=== PATIENT | male | born 1950 | race African-American/Black ===

== ENCOUNTER 2018-04-10 16:04 | Emergency (ER) | payer OTHER, SELFPAY ==
--- OUTSIDE RECORDS SUMMARY | 2018-04-10 16:06 | XMS REPORT | Clinical Summary ---
:1950 Author Organization [facility] Address [address] [place] [address] Phone Support Name Relationship Address Phone Unavailable Unavailable [address] [place] [address] Care Team Providers Name Role Phone Unavailable Primary Care Provider Unavailable Allergies No Known Allergies Current Medications Prescription Sig. Disp. Refills Start Date End Date Status cloNIDine HCl Take 0.3 mg by Active (CATAPRES) 0.3 MG mouth 3 (three) tablet times daily. furosemide (LASIX) Take 40 mg by Active 40 MG mouth every other tabletIndications: day. PRN amLODIPine Take 10 mg by Active (NORVASC) 10 MG mouth daily. tablet carvedilol (COREG) Take 1 tablet 60 tablet 3 10/13/2017 Active 12.5 MG tablet (12.5 mg total) 9 by mouth 2 (two) times daily. acetaminophen-code Take 1 tablet by 30 tablet 0 10/11/2017 Discontinued ine (TYLENOL #3) mouth every 4 8 300-30 mg per (four) hours as tablet needed for up to 10 days. Max Daily Amount: 6 tablets bisacodyl Take 1 tablet (5 30 tablet 0 10/11/2017 Discontinued (DULCOLAX) 5 mg EC mg total) by 8 tablet mouth daily as needed for Constipation for up to 30 days. carvedilol (COREG) Take 1 tablet 60 tablet 3 10/12/2017 Discontinued 12.5 MG tablet (12.5 mg total) 8 by mouth 2 (two) times daily. acetaminophen-code Take 1 tablet by 30 tablet 0 10/13/2017 ine (TYLENOL #3) mouth every 4 8 300-30 mg per (four) hours as tablet needed for up to 10 days. Max Daily Amount: 6 tablets bisacodyl Take 1 tablet (5 30 tablet 0 10/13/2017 (DULCOLAX) 5 mg EC mg total) by 8 tablet mouth daily as needed for Constipation for up to 30 days. 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);S/p nephrectomy 10/09/2017 Procedure Pass 10/09/2017 Surgery Demetrius Mims LAPAROSCOPY,NEPHREC MD SANGEETA Kohler 10/08/2017 Anesthesia Event Jhoana Quinonez MD 10/02/2017 Procedure Pass 10/01/2017 Hospital Encounter Pre-Admission Demetrius Mims Pre-op testing Testing MD Jose F 10/01/2017 Hospital Encounter Pre-Admission Abel Brown Testing MD 09/12/2017 Orders Only Pre-Admission Karine Simental Pre-op testing Testing (Primary Dx) after 04/09/2017 Social History Tobacco Use Types Packs/Day Years Used Date Current Every Day Smoker 0.5 Smokeless Tobacco: Never Used Tobacco Cessation: Ready to Quit: Yes; Counseling Given: Yes Alcohol Use Drinks/Week oz/Week Comments Yes Sex Assigned at Date Recorded Not on file Last Filed Vital Signs Vital Sign Reading Time Taken Blood Pressure 131/78 10/13/2017 2:31 PM CDT Pulse 75 10/13/2017 2:31 PM CDT Temperature 35.9 C (96.7 F) 10/13/2017 2:31 PM CDT Respiratory Rate 19 10/13/2017 2:31 PM CDT Oxygen Saturation 99% 10/13/2017 2:31 PM CDT Inhaled Oxygen Concentration - - Weight 68 kg (150 lb) 10/09/2017 10:00 PM CDT Height 162.6 cm (5' 4") 10/09/2017 10:00 PM CDT Body Mass Index 25.75 10/09/2017 10:00 PM CDT Plan of Treatment Not on file Procedures Procedure Name Priority Date/Time Associated Diagnosis Comments DISSECTION,LYMPH NODE 10/09/2017 1:00 PM CDT Renal mass, left PELVIC Special Needs (10 MM DEFLECTABLE, 3D OLYMPUS LAPAROSCOPE, 5 MM LIGASURE ADVANCE) LAPAROSCOPY,NEPHRECTOMY 10/09/2017 1:00 PM CDT Renal mass, left Special Needs (10 MM DEFLECTABLE, 3D OLYMPUS LAPAROSCOPE, 5 MM LIGASURE ADVANCE) after 04/09/2017 Results RHYTHM STRIP - SCAN (10/16/2017 9:41 AM)CBC with platelet count + automated diff (10/13/2017 12:26 PM)Only the most recent of5 resultswithin the time period is included. Component Value Ref Range WBC 5.0 3.5 - 10.5 K/L RBC 4.98 4.63 - 6.08 M/L Hemoglobin 14.6 13.7 - 17.5 GM/DL Hematocrit 43.0 40.1 - 51.0 % MCV 86.3 79.0 - 92.2 fL MCH 29.3 25.7 - 32.2 pg MCHC 34.0 32.3 - 36.5 GM/DL RDW 13.0 11.6 - 14.4 % Platelets 252 150 - 450 K/CU MM MPV 9.7 9.4 - 12.4 fL nRBC 0 0 - 0 /100 WBC % Neutros 71 % % Lymphs 18 % % Monos 9 % % Eos 1 % % Baso 1 % # Neutros 3.52 1.78 - 5.38 K/L # Lymphs 0.87 (L) 1.32 - 3.57 K/L # Monos 0.46 0.30 - 0.82 K/L # Eos 0.05 0.04 - 0.54 K/L # Baso 0.05 0.01 - 0.08 K/L Immature Granulocytes-Relative 0 0 - 1 % Specimen Performing Laboratory Blood - Arm, Right [facility] [address] [place] [address], [place] [address] CBC with platelet count + automated diff (10/13/2017 12:26 PM)Only the most recent of5 resultswithin the time period is included. Specimen Performing Laboratory Blood Narrative The following orders were created for panel order CBC with platelet count + automated diff. Procedure Abnormality Status --------- ------ CBC with platelet count ...[[id number]]AbnormalFinal result Please view results for these tests on the individual orders. Basic Metabolic Panel (10/13/2017 12:26 PM)Only the most recent of7 resultswithin the time period is included. Component Value Ref Range Sodium 135 (L) 136 - 145 meq/L Potassium 3.6 3.5 - 5.1 meq/L Chloride 98 98 - 107 meq/L CO2 22 22 - 29 meq/L BUN 45 (H) 7 - 21 mg/dL Creatinine 3.68 (H) 0.57 - 1.25 mg/dL Glucose 157 (H) 70 - 105 mg/dL Calcium 9.5 8.4 - 10.2 mg/dL EGFR 20Comment: ESTIMATED GFR IS NOT ACCURATE mL/min/1.73 sq m CREATININE CLEARANCE IN PREDICTING GLOMERULAR FILTRATION RATE. ESTIMATED GFR IS NOT APPLICABLE FOR DIALYSIS PATIENTS. Specimen Performing Laboratory Blood - Arm, Right [address] [address] Phosphorus (10/12/2017 4:47 AM)Only the most recent of4 resultswithin the time period is included. Component Value Ref Range Phosphorus 2.7 2.3 - 4.7 mg/dL Specimen Performing Laboratory Blood - Arm, Left [address] [address] Magnesium (10/12/2017 4:47 AM)Only the most recent of4 resultswithin the time period is included. Component Value Ref Range Magnesium 2.1 1.6 - 2.6 mg/dL Specimen Performing Laboratory Blood - Arm, Left [address] [address] Iron, TIBC, % sat. (without ferritin) (10/11/2017 4:35 AM) Component Value Ref Range Iron 49 40 - 160 ug/dL TIBC 236 (L) 250 - 450 ug/dL Iron % Saturation 21 20 - 55 % Specimen Performing Laboratory Blood [address] [address] PTH, intact (10/11/2017 4:35 AM) Component Value Ref Range PTH 212.3 (H) 8.5 - 72.5 pg/mL Specimen Performing Laboratory Blood [address] [address] Hemoglobin and hematocrit (10/09/2017 6:55 PM) Component Value Ref Range Hemoglobin 13.7 13.7 - 17.5 GM/DL Hematocrit 40.5 40.1 - 51.0 % Specimen Performing Laboratory Blood - Line, Arterial [facility] [address] [place] [address] Tissue Exam (10/09/2017 4:52 PM) Component Value Ref Range Case Report Surgical Pathology Report Case: [id number] Authorizing Provider:Demetrius Mims MD Collected: 10/09/2017 1657 Ordering Location: [facility] Received: 10/10/2017 0810 SERVICES Pathologist: Joyce Sauceda MD Specimens: A) - Lymph Node, RETROPERITONEAL LYMPH NODE B) - Kidney, Left, LEFT KIDNEY AND HILAR LYMPH NODE DIAGNOSIS A. RETROPERITONEAL LYMPH NODES, DISSECTION - SEVEN LYMPH NODES WITHOUT TUMOR (0/7) B. 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 - NO INVOLVEMENT OF RENAL PELVIS OR RENAL SINUS (TUMOR IS CLOSE TO PELVIS AND ATTENUATES THE CAPSULE IN THE REGION OF THE RENAL SINUS, BUT DOES NOT EXTEND INTO SINUS SOFT/ADIPOSE TISSUE, OR THROUGH THE LATERAL CAPSULE - SATELLITE NODULE/PAPILLARY RENAL CELL CARCINOMA, TYPE 1,5MM, AT LEAST 1CM REMOVED FROM LARGER TUMOR, CONFINED TO KIDNEY - VASCULAR, URETERAL AND SURGICAL MARGINS ARE NEGATIVE FOR CARCINOMA - LYMPHOVASCULAR OR PERINEURAL INVASION IS NOT IDENTIFIED - ONE HILAR REGION LYMPH NODE WITHOUT TUMOR (0/1) - SIMPLE CORTICAL CYST IN UPPER POLE - FEATURES CONSISTENT WITH END-STAGE RENAL DISEASE - SEE SYNOPTIC REPORT Signing Pathologist Direct Phone Line: [phone] COMMENT The relative revisions of traditional Lockwood nuclear grading in predicting 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 The assessment of nucleolar prominence as a single parameter is noted to correlate better with outcome than other nuclear parameters (size, shape) to assign a Lockwood grade. ("Urologic Surgical Pathology," Leidy and Cristian, third edition, 2014). Nuclear grade assig mitch in Synoptic portion of this report (tw, can include). This patient's previous biopsy from [facility], from 2016 ([id number]) shows a core biopsy with features similar to those noted in this larger tumor. 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 Both types of tumor were considered in th e differential diagnosis of this initial sample (tw/wy). SYNOPTIC REPORT KIDNEY: Nephrectomy(Kidney Res - All Specimens) SPECIMEN Procedure:Radical nephrectomy Specimen Laterality:Left TUMOR Tumor Site:Lower pole Histologic Type:Papillary renal cell carcinoma :Type 1 Histologic Grade (WHO / ISUP Grade):G2: Nucleoli conspicuous and eosinophilic at 400x magnification, visible but not prominent at 100x magnification Tumor Size:Greatest dimension in Centimeters (cm): 5.5 Centimeters (cm) Additional Dimension in Centimeters (cm):5 Centimeters (cm) Additional Dimension in Centimeters (cm):4.5 Centimeters (cm ) Tumor Focality:Multifocal Tumor Extension:Tumor limited to kidney Sarcomatoid Features:Not identified Rhabdoid Features:Not identified Tumor Necrosis:Not identified Lymphovascular Invasion:Not identified MARGINS Margins:Uninvolved by invasive carcinoma LYMPH NODES Regional Lymph Nodes: Number of Lymph Nodes Involved:0 Number of Lymph Nodes Examined:8 PATHOLOGIC STAGE CLASSIFICATION (pTNM, AJCC 8th Edition) Primary Tumor (pT):pT1b Regional Lymph Nodes (pN):pN0 ADDITIONAL FINDINGS Pathologic Findings in Nonneoplastic Kidney:Glomerular disease: arteriolonephrosclerosis, KW type lesions Pathologic Findings in Nonneoplastic Kidney:Tubulointerstitial disease: chronic inflammation, thyroidization Additional Pathological Findings:Cyst(s): Simple cortical cyst CPT Code(s) 53353 X 2, 07019, 45929 x6 CLINICAL HISTORY Left renal mass SPECIMEN SOURCE A. Retroperitoneal lymph node. B. Left kidney and hilar lymph node GROSS DESCRIPTION The specimen is received in two containers of formalin both labeled with the patient's information. Part A: Labeled "retroperitoneal lymph node" consists of multiple ragged fragments of fibrofatty tissue measuring 3 x 2.5 x 1.5 cm yielding 7 possible lymph nodes ranging from 0.5 to 1.5 cm, submitted e ntirely as follows: A1, one lymph node trisected; A2, one lymph node bisected ; A3, one lymph node bisected; A4, one lymph node bisected; A5, three possible lymph nodes. Part B: Labeled "left kidney and hilar lymph node" consists of a 342 gm left radical nephrectomy, 15 x 7 x 4.5 cm with kidney without perirenal fat,9 x 5 x 4 cm with a ureter, 6 cm in length x 0.4 c m in diameter. An adrenal gland is not present. Cross sections of the kidney shows a large, pale, pendleton-white mass, 5.5 x 5 x 4.5 cm,replacng the entire lower pole of the kidney and extending in a "pu shing" fashion into the renal sinus region. The ureter and pelvis have pendleton- pink mucosa and are not grossly involved with tumor. In the superior pole is a biloculated cyst measuring 1 cm filled with pendleton- red clear fluid.The mass bulges/attenuates the kidney capsule but does not extend through it.. The hilar fat yields three possible pendleton-pink lymph nodes measuring up to 0.5 cm. Cross sections of the mass show a satellite pendleton nodule, 0.5 cm grossly approximately 1 cm or more from the primary tumor and also grossly confined within the kidney capsule. No other areas of suspicion are seen. Section code: B1, ureteral and vascular margins en face; B2, three possible lymph nodes; B3, B4, tumor with lateral aspect and capsule B5, B6, tumor, sinus fat and kidney parenchyma; B7, primary tumor a nd satellite nodule; B8, B9, additional sections of mass and kidney parenchyma; B10, grossly normal kidney parenchyma and cystic spaces. CG/ew MICROSCOPIC DESCRIPTION Sections show a papillary renal cell carcinoma, type I, with rather abundant papillae, and with cells with relatively small nuclei and only focally prominent nucleoli. Some solid regions are noted, not prominent. There are prominent macrophages, and only a small amount of myxoid stroma. No lymphovascular invasion is identified. A satellite nodule present in slide B7 show similar features, with a more prominent solid component. The tumor is not necrotic, does not exhibit psammoma bodies, and does not display hemorrhage. Although, on gross examination, some possible renal sinus regions contain tumor, microscopic sections show that an attenuated capsule is present in the sinus; no invasion of the renal sinus soft tissue or fat is noted on microscopic examination High-grade tumor (sarcomatoiid, etc.) or other types of tumor are not noted. SPECIAL STUDIES The following special studies were performed on this case and the interpretation is incorporated in the diagnostic report above: AMACR, strongly positive; RCC marker, positive; AE1/AE3-positive; RICHARD and CK 7-focally positive; [id number] CD10 equivocal, possibly focally positive The immunohistochemistry test was developed and its performance characteristics determined by [facility], Pathology Laboratory. It has not been cleared or approved by the U.S. Food and Drug Administration. The FDA has determined that such clearance or approval is not necessary. The test is used for clinical purposes. It should not be regarded as investigational or for research. This laboratory is certified under the Clinical Laboratory Improvement Amendments of 1988 (CLIA-88) as qualified to perform high complexity clinical laboratory testing. Specimen Performing Laboratory Tissue - Lymph Node; Tissue - Kidney, Left [address] [address] TRANSFUSION SERVICE REPORT - SCAN (10/02/2017 5:44 PM)Type and screen, automated (10/01/2017 4:14 PM) Component Value Ref Range ABO/RH AUTOMATED (BEAKER) O POSITIVE Ab Scrn NEGATIVE Specimen Performing Laboratory Blood [address] [address] Urinalysis w/ Microscopic (10/01/2017 4:14 PM) Component Value Ref Range Color, UA Yellow Clarity, UA Clear Specific [place], UA 1.013 1.001 - 1.035 pH, UA 6.0 5.0 - 8.0 Protein, UA 100 mg/dL (A) Negative Glucose, UA Negative Negative Ketones, UA Negative Negative Bilirubin, UA Negative Negative Blood, UA Trace (A) Negative Nitrite, UA Negative Negative Leukocytes, UA Negative Negative Urobilinogen, UA 0.2 0.2 - 1.0 mg/dL RBC, UA 7 /HPF WBC, UA 2 /HPF Mucus Rare Specimen Source Specimen Performing Laboratory Urine [address] [address] aPTT (10/01/2017 4:14 PM) Component Value Ref Range PTT 28.1 22.5 - 36.0 seconds Specimen Performing Laboratory Blood [address] [address] Prothrombin time/INR (10/01/2017 4:14 PM) Component Value Ref Range Protime 13.6 11.7 - 14.7 seconds INR 1.0 <=5.9 Specimen Performing Laboratory Blood [address] [address] Narrative RECOMMENDED COUMADIN/WARFARIN INR THERAPY RANGES STANDARD DOSE: 2.0 - 3.0 Includes: PROPHYLAXIS for venous thrombosis, systemic embolization; TREATMENT for venous thrombosis and/or pulmonary embolus. HIGH RISK: Target INR is 2.5-3.5 for patients with mechanical heart valves. Urine culture (10/01/2017 4:13 PM) Component Value Ref Range Result No growth Specimen Performing Laboratory Urine - Urine, Unspecified Source [address] [address] after 04/09/2017
--- OUTSIDE RECORDS SUMMARY | 2018-04-10 16:06 | XMS REPORT ---
:1950 [facility] [address] [place] [address] Care Team Providers Name Role Phone CITLALY MIMS Unavailable Unavailable ANILELMAMALCOM Unavailable Unavailable Problems This patient has no known problems. Allergies, Adverse Reactions, Alerts This patient has no known allergies or adverse reactions. Medications This patient has no known medications. Results Test Description Test Time Test Comments Text Results Atomic Results Result Comments TISSUE EXAM 2017-10-16 09:38:00 Surgical Pathology Report Case: [id number] Authorizing Provider: Citlaly Mims MD Collected: 10/09/2017 1652 Ordering Location: [facility] PERI[facility] Received: 10/10/2017 0810 SERVICES Pathologist: Joyce Sauceda MD Specimens: A) - Lymph Node, RETROPERITONEAL LYMPH NODE B) - Kidney, Left, LEFT KIDNEY AND HILAR LYMPH NODE A. RETROPERITONEAL LYMPH NODES, DISSECTION - SEVEN LYMPH NODES WITHOUT TUMOR (0/7) B. 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 - NO INVOLVEMENT OF RENAL PELVIS OR RENAL SINUS (TUMOR IS CLOSE TO PELVIS AND ATTENUATES THE CAPSULE IN THE REGION OF THE RENAL SINUS, BUT DOES NOT EXTEND INTO SINUS SOFT/ADIPOSE TISSUE, OR THROUGH THE LATERAL CAPSULE - SATELLITE NODULE/PAPILLARY RENAL CELL CARCINOMA, TYPE 1, 5MM, AT LEAST 1CM REMOVED FROM LARGER TUMOR, CONFINED TO KIDNEY - VASCULAR, URETERAL AND SURGICAL MARGINS ARE NEGATIVE FOR CARCINOMA - LYMPHOVASCULAR OR PERINEURAL INVASION IS NOT IDENTIFIED - ONE HILAR REGION LYMPH NODE WITHOUT TUMOR (0/1) - SIMPLE CORTICAL CYST IN UPPER POLE - FEATURES CONSISTENT WITH END-STAGE RENAL DISEASE - SEE SYNOPTIC REPORT Signing Pathologist Direct Phone Line: [phone] signed by Joyce Sauceda MD on 10/16/2017 at 9:38 AMThe relative revisions of traditional Deal nuclear grading in predicting 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 The assessment of nucleolar prominence as a single parameter is noted to correlate better with outcome than other nuclear parameters (size, shape) to assign a Dami grade. ("Urologic Surgical Pathology," Janelle, third edition, 2014). Nuclear grade assigned in Synoptic portion of this report (tw, can include).This patient's previous biopsy from [facility], from 03/02/2017 ([id number]) shows a core biopsy with features similar to those noted in this larger tumor. 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 Both types of tumor were considered in the differential diagnosis of this initial sample (tw/wy).KIDNEY: Nephrectomy (Kidney Res - All Specimens)SPECIMEN Procedure: Radical nephrectomy Specimen Laterality: Left TUMOR Tumor Site: Lower pole Histologic Type: Papillary renal cell carcinoma : Type 1 Histologic Grade (WHO / ISUP Grade): G2: Nucleoli conspicuous and eosinophilic at 400x magnification, visible but not prominent at 100x magnification Tumor Size: Greatest dimension in Centimeters (cm): 5.5 Centimeters (cm) Additional Dimension in Centimeters (cm): 5 Centimeters (cm) Additional Dimension in Centimeters (cm): 4.5 Centimeters (cm) Tumor Focality: Multifocal Tumor Extension: Tumor limited to kidney Sarcomatoid Features: Not identified Rhabdoid Features: Not identified Tumor Necrosis: Not identified Lymphovascular Invasion: Not identified MARGINS Margins: Uninvolved by invasive carcinoma LYMPH NODES Regional Lymph Nodes: Number of Lymph Nodes Involved: 0 Number of Lymph Nodes Examined: 8 PATHOLOGIC STAGE CLASSIFICATION (pTNM, AJCC 8th Edition) Primary Tumor (pT): pT1b Regional Lymph Nodes (pN): pN0 ADDITIONAL FINDINGS Pathologic Findings in Nonneoplastic Kidney: Glomerular disease: arteriolonephrosclerosis, KW type lesions Pathologic Findings in Nonneoplastic Kidney: Tubulointerstitial disease: chronic inflammation, thyroidization Additional Pathological Findings: Cyst(s): Simple cortical cyst 42093 X 2, 02077, 40309 x6Left renal massA. Retroperitoneal lymph node. B. Left kidney and hilar lymph nodeThe specimen is received in two containers of formalin both labeled with the patient's information.Part A: Labeled "retroperitoneal lymph node" consists of multiple ragged fragments of fibrofatty tissue measuring 3 x 2.5 x 1.5 cm yielding 7 possible lymph nodes ranging from 0.5 to 1.5 cm, submitted entirely as follows: A1, one lymph node trisected; A2, one lymph node bisected; A3, one lymph node bisected; A4, one lymph node bisected; A5, three possible lymph nodes.Part B: Labeled "left kidney and hilar lymph node" consists of a 342 gm left radical nephrectomy, 15 x 7 x 4.5 cm with kidney without perirenal fat, 9 x 5 x 4 cm with a ureter, 6 cm in length x 0.4 cm in diameter. An adrenal gland is not present. Cross sections of the kidney shows a large, pale, pendleton-white mass, 5.5 x 5 x 4.5 cm, replacng the entire lower pole of the kidney and extending in a "pushing" fashion into the renal sinus region. The ureter and pelvis have pendleton-pink mucosa and are not grossly involved with tumor. In the superior pole is a biloculated cyst measuring 1 cm filled with pendleton-red clear fluid. The mass bulges/attenuates the kidney capsule but does not extend through it.. The hilar fat yields three possible pendleton-pink lymph nodes measuring up to 0.5 cm. Cross sections of the mass show a satellite pendleton nodule, 0.5 cm grossly approximately 1 cm or more from the primary tumor and also grossly confined within the kidney capsule. No other areas of suspicion are seen.Section code: B1, ureteral and vascular margins en face; B2, three possible lymph nodes; B3, B4, tumor with lateral aspect and capsule B5, B6, tumor, sinus fat and kidney parenchyma; B7, primary tumor and satellite nodule; B8, B9, additional sections of mass and kidney parenchyma; B10, grossly normal kidney parenchyma and cystic spaces. CG/ewSections show a papillary renal cell carcinoma, type [...] or other types of tumor are not noted.The following special studies were performed on this case and the interpretation is incorporated in the diagnostic report above: AMACR,strongly positive; RCC marker, positive; AE1/AE3-positive; RICHARD and CK 7-focally positive; OF07-pjxmbllv CD10 equivocal, possibly focally positiveThe immunohistochemistry test was developed and its performance characteristics determined by [facility], Pathology Laboratory. It has not been [...] to perform high complexity clinical laboratory testing. BASIC METABOLIC PANEL 2017-10-13 13:36:00 Test Item Value Reference Range Comments SODIUM (BEAKER) (test 135 meq/L 136-145 bkfo=130) POTASSIUM (BEAKER) (test 3.6 meq/L 3.5-5.1 btkr=511) CHLORIDE (BEAKER) (test 98 meq/L 98-107 bgfh=030) CO2 (BEAKER) (test erkq=080) 22 meq/L 22-29 BLOOD UREA NITROGEN (BEAKER) 45 mg/dL 7-21 (test catb=693) CREATININE (BEAKER) (test 3.68 mg/dL 0.57-1.25 eyjn=601) GLUCOSE RANDOM (BEAKER) 157 mg/dL 70-105 (test syau=128) CALCIUM (BEAKER) (test 9.5 mg/dL 8.4-10.2 xrcw=785) EGFR (BEAKER) (test 20 mL/min/1.73 sq m ESTIMATED GFR IS NOT fete=0071) ACCURATE CREATININE CLEARANCE IN PREDICTING GLOMERULAR FILTRATION RATE. ESTIMATED GFR IS NOT APPLICABLE FOR DIALYSIS PATIENTS. CBC W/PLT COUNT & AUTO [id number] 12:44:00 Test Item Value Reference Range Comments WHITE BLOOD CELL COUNT (BEAKER) (test iklw=213) 5.0 K/ L 3.5-10.5 RED BLOOD CELL COUNT (BEAKER) (test idqu=185) 4.98 M/ L 4.63-6.08 HEMOGLOBIN (BEAKER) (test vwth=796) 14.6 GM/DL 13.7-17.5 HEMATOCRIT (BEAKER) (test ynoy=453) 43.0 % 40.1-51.0 MEAN CORPUSCULAR VOLUME (BEAKER) (test lmhi=765) 86.3 fL 79.0-92.2 MEAN CORPUSCULAR HEMOGLOBIN (BEAKER) (test 29.3 pg 25.7-32.2 axpb=715) MEAN CORPUSCULAR HEMOGLOBIN CONC (BEAKER) (test 34.0 GM/DL 32.3-36.5 eahd=626) RED CELL DISTRIBUTION WIDTH (BEAKER) (test 13.0 % 11.6-14.4 wwex=361) PLATELET COUNT (BEAKER) (test wihc=229) 252 K/CU MM 150-450 MEAN PLATELET VOLUME (BEAKER) (test sgty=701) 9.7 fL 9.4-12.4 NUCLEATED RED BLOOD CELLS (BEAKER) (test 0 /100 WBC 0-0 hivs=582) NEUTROPHILS RELATIVE PERCENT (BEAKER) (test 71 % tgck=253) LYMPHOCYTES RELATIVE PERCENT (BEAKER) (test 18 % kyqs=184) MONOCYTES RELATIVE PERCENT (BEAKER) (test 9 % zfeb=575) EOSINOPHILS RELATIVE PERCENT (BEAKER) (test 1 % cwjg=358) BASOPHILS RELATIVE PERCENT (BEAKER) (test 1 % drtv=945) NEUTROPHILS ABSOLUTE COUNT (BEAKER) (test 3.52 K/ L 1.78-5.38 curk=623) LYMPHOCYTES ABSOLUTE COUNT (BEAKER) (test 0.87 K/ L 1.32-3.57 ejeq=856) MONOCYTES ABSOLUTE COUNT (BEAKER) (test 0.46 K/ L 0.30-0.82 mmtu=477) EOSINOPHILS ABSOLUTE COUNT (BEAKER) (test 0.05 K/ L 0.04-0.54 dxgz=611) BASOPHILS ABSOLUTE COUNT (BEAKER) (test 0.05 K/ L 0.01-0.08 kdsx=537) IMMATURE GRANULOCYTES-RELATIVE PERCENT (BEAKER) 0 % 0-1 (test thop=9856) BASIC METABOLIC [id number] 15:02:00 Test Item Value Reference Range Comments SODIUM (BEAKER) (test 132 meq/L 136-145 wfya=208) POTASSIUM (BEAKER) (test 3.8 meq/L 3.5-5.1 awjw=264) CHLORIDE (BEAKER) (test 97 meq/L 98-107 gnsb=944) CO2 (BEAKER) (test 24 meq/L 22-29 phuy=236) BLOOD UREA NITROGEN 42 mg/dL 7-21 (BEAKER) (test lfjv=098) CREATININE (BEAKER) (test 3.78 mg/dL 0.57-1.25 kjjz=820) GLUCOSE RANDOM (BEAKER) 108 mg/dL 70-105 (test wwug=714) CALCIUM (BEAKER) (test 9.4 mg/dL 8.4-10.2 mrbw=154) EGFR (BEAKER) (test 20 mL/min/1.73 sq m ESTIMATED GFR IS NOT jmyr=4491) ACCURATE CREATININE CLEARANCE IN PREDICTING GLOMERULAR FILTRATION RATE. ESTIMATED GFR IS NOT APPLICABLE FOR DIALYSIS PATIENTS. Please draw at 2:00pmBASI METABOLIC [id number] 06:14:00 Test Item Value Reference Range Comments SODIUM (BEAKER) (test 133 meq/L 136-145 pmew=108) POTASSIUM (BEAKER) (test 3.8 meq/L 3.5-5.1 vlgm=225) CHLORIDE (BEAKER) (test 100 meq/L 98-107 lkzu=809) CO2 (BEAKER) (test 23 meq/L 22-29 jljd=880) BLOOD UREA NITROGEN 33 mg/dL 7-21 (BEAKER) (test hdga=285) CREATININE (BEAKER) (test 3.27 mg/dL 0.57-1.25 iudz=171) GLUCOSE RANDOM (BEAKER) 87 mg/dL 70-105 (test equc=328) CALCIUM (BEAKER) (test 9.0 mg/dL 8.4-10.2 typc=614) EGFR (BEAKER) (test 23 mL/min/1.73 sq m ESTIMATED GFR IS NOT vgdp=9643) ACCURATE CREATININE CLEARANCE IN PREDICTING GLOMERULAR FILTRATION RATE. ESTIMATED GFR IS NOT APPLICABLE FOR DIALYSIS PATIENTS. [id number] 06:03:00 Test Item Value Reference Range Comments PHOSPHORUS (BEAKER) (test fpax=179) 2.7 mg/dL 2.3-4.7 [id number] 06:03:00 Test Item Value Reference Range Comments MAGNESIUM (BEAKER) (test ovgt=330) 2.1 mg/dL 1.6-2.6 CBC W/PLT COUNT & AUTO [id number] 05:16:00 Test Item Value Reference Range Comments WHITE BLOOD CELL COUNT (BEAKER) (test trgt=217) 6.7 K/ L 3.5-10.5 RED BLOOD CELL COUNT (BEAKER) (test jtgz=401) 4.59 M/ L 4.63-6.08 HEMOGLOBIN (BEAKER) (test yyta=297) 13.6 GM/DL 13.7-17.5 HEMATOCRIT (BEAKER) (test mrkg=147) 39.8 % 40.1-51.0 MEAN CORPUSCULAR VOLUME (BEAKER) (test qfec=649) 86.7 fL 79.0-92.2 MEAN CORPUSCULAR HEMOGLOBIN (BEAKER) (test 29.6 pg 25.7-32.2 xshc=930) MEAN CORPUSCULAR HEMOGLOBIN CONC (BEAKER) (test 34.2 GM/DL 32.3-36.5 fgqc=673) RED CELL DISTRIBUTION WIDTH (BEAKER) (test 13.2 % 11.6-14.4 xsli=368) PLATELET COUNT (BEAKER) (test fyej=492) 209 K/CU MM 150-450 MEAN PLATELET VOLUME (BEAKER) (test utmw=721) 10.2 fL 9.4-12.4 NUCLEATED RED BLOOD CELLS (BEAKER) (test 0 /100 WBC 0-0 bwbu=226) NEUTROPHILS RELATIVE PERCENT (BEAKER) (test 71 % mohv=274) LYMPHOCYTES RELATIVE PERCENT (BEAKER) (test 16 % mhbg=022) MONOCYTES RELATIVE PERCENT (BEAKER) (test 12 % kntw=513) EOSINOPHILS RELATIVE PERCENT (BEAKER) (test 1 % gupu=006) BASOPHILS RELATIVE PERCENT (BEAKER) (test 0 % xywc=488) NEUTROPHILS ABSOLUTE COUNT (BEAKER) (test 4.75 K/ L 1.78-5.38 hwdy=996) LYMPHOCYTES ABSOLUTE COUNT (BEAKER) (test 1.07 K/ L 1.32-3.57 umms=104) MONOCYTES ABSOLUTE COUNT (BEAKER) (test 0.77 K/ L 0.30-0.82 ytlf=802) EOSINOPHILS ABSOLUTE COUNT (BEAKER) (test 0.06 K/ L 0.04-0.54 qbgb=549) BASOPHILS ABSOLUTE COUNT (BEAKER) (test 0.03 K/ L 0.01-0.08 nkjw=014) IMMATURE GRANULOCYTES-RELATIVE PERCENT (BEAKER) 0 % 0-1 (test yvah=2724) IRON, TIBC, % SAT. (WITHOUT FERRITIN)2017-10-11 06:55:00 Test Item Value Reference Range Comments IRON (BEAKER) (test yzda=795) 49 ug/dL 40-160 TOTAL IRON BINDING CAPACITY (BEAKER) (test 236 ug/dL 250-450 dhbe=457) IRON % SATURATION (2) (BEAKER) (test dtmq=1032) 21 % 20-55 BASIC METABOLIC [id number] 05:41:00 Test Item Value Reference Range Comments SODIUM (BEAKER) (test 136 meq/L 136-145 rqnj=040) POTASSIUM (BEAKER) (test 3.7 meq/L 3.5-5.1 ayhd=503) CHLORIDE (BEAKER) (test 102 meq/L 98-107 pmgf=165) CO2 (BEAKER) (test 22 meq/L 22-29 wazd=425) BLOOD UREA NITROGEN 25 mg/dL 7-21 (BEAKER) (test imsy=359) CREATININE (BEAKER) (test 2.84 mg/dL 0.57-1.25 mwfe=528) GLUCOSE RANDOM (BEAKER) 99 mg/dL 70-105 (test okyy=599) CALCIUM (BEAKER) (test 9.4 mg/dL 8.4-10.2 zvsi=760) EGFR (BEAKER) (test 27 mL/min/1.73 sq m ESTIMATED GFR IS NOT drkl=8663) ACCURATE CREATININE CLEARANCE IN PREDICTING GLOMERULAR FILTRATION RATE. ESTIMATED GFR IS NOT APPLICABLE FOR DIALYSIS PATIENTS. [id number] 05:36:00 Test Item Value Reference Range Comments PHOSPHORUS (BEAKER) (test lqli=908) 2.8 mg/dL 2.3-4.7 [id number] 05:36:00 Test Item Value Reference Range Comments MAGNESIUM (BEAKER) (test vpyc=913) 2.2 mg/dL 1.6-2.6 PTH, [id number] 05:33:00 Test Item Value Reference Range Comments PARATHYROID HORMONE INTACT (BEAKER) (test 212.3 pg/mL 8.5-72.5 glfr=736) CBC W/PLT COUNT & AUTO [id number] 05:02:00 Test Item Value Reference Range Comments WHITE BLOOD CELL COUNT (BEAKER) (test kwfd=880) 8.8 K/ L 3.5-10.5 RED BLOOD CELL COUNT (BEAKER) (test lief=711) 4.89 M/ L 4.63-6.08 HEMOGLOBIN (BEAKER) (test ipks=622) 14.5 GM/DL 13.7-17.5 HEMATOCRIT (BEAKER) (test wuml=599) 42.6 % 40.1-51.0 MEAN CORPUSCULAR VOLUME (BEAKER) (test cbtp=396) 87.1 fL 79.0-92.2 MEAN CORPUSCULAR HEMOGLOBIN (BEAKER) (test 29.7 pg 25.7-32.2 rrbn=700) MEAN CORPUSCULAR HEMOGLOBIN CONC (BEAKER) (test 34.0 GM/DL 32.3-36.5 lwsq=835) RED CELL DISTRIBUTION WIDTH (BEAKER) (test 13.5 % 11.6-14.4 ykun=584) PLATELET COUNT (BEAKER) (test fzgv=086) 205 K/CU MM 150-450 MEAN PLATELET VOLUME (BEAKER) (test fvji=260) 9.9 fL 9.4-12.4 NUCLEATED RED BLOOD CELLS (BEAKER) (test 0 /100 WBC 0-0 ubsm=000) NEUTROPHILS RELATIVE PERCENT (BEAKER) (test 76 % fzjf=394) LYMPHOCYTES RELATIVE PERCENT (BEAKER) (test 13 % lkqf=264) MONOCYTES RELATIVE PERCENT (BEAKER) (test 9 % ehpg=447) EOSINOPHILS RELATIVE PERCENT (BEAKER) (test 0 % sxub=552) BASOPHILS RELATIVE PERCENT (BEAKER) (test 1 % ipko=111) NEUTROPHILS ABSOLUTE COUNT (BEAKER) (test 6.68 K/ L 1.78-5.38 dpob=278) LYMPHOCYTES ABSOLUTE COUNT (BEAKER) (test 1.17 K/ L 1.32-3.57 ohax=035) MONOCYTES ABSOLUTE COUNT (BEAKER) (test 0.82 K/ L 0.30-0.82 xnjz=559) EOSINOPHILS ABSOLUTE COUNT (BEAKER) (test 0.02 K/ L 0.04-0.54 hszh=166) BASOPHILS ABSOLUTE COUNT (BEAKER) (test 0.05 K/ L 0.01-0.08 eoup=681) IMMATURE GRANULOCYTES-RELATIVE PERCENT (BEAKER) 0 % 0-1 (test rggb=4360) [id number] 06:36:00 Test Item Value Reference Range Comments PHOSPHORUS (BEAKER) (test zzvl=322) 2.4 mg/dL 2.3-4.7 [id number] 06:36:00 Test Item Value Reference Range Comments MAGNESIUM (BEAKER) (test tqcx=956) 1.8 mg/dL 1.6-2.6 BASIC METABOLIC [id number] 06:36:00 Test Item Value Reference Range Comments SODIUM (BEAKER) (test 137 meq/L 136-145 dhqs=974) POTASSIUM (BEAKER) (test 3.6 meq/L 3.5-5.1 khii=541) CHLORIDE (BEAKER) (test 103 meq/L 98-107 pmoo=472) CO2 (BEAKER) (test 19 meq/L 22-29 ifnc=724) BLOOD UREA NITROGEN 22 mg/dL 7-21 (BEAKER) (test ceiu=685) CREATININE (BEAKER) (test 2.53 mg/dL 0.57-1.25 twiz=880) GLUCOSE RANDOM (BEAKER) 148 mg/dL 70-105 (test bivl=874) CALCIUM (BEAKER) (test 9.3 mg/dL 8.4-10.2 pkpq=567) EGFR (BEAKER) (test 31 mL/min/1.73 sq m ESTIMATED GFR IS NOT nhnd=9229) ACCURATE CREATININE CLEARANCE IN PREDICTING GLOMERULAR FILTRATION RATE. ESTIMATED GFR IS NOT APPLICABLE FOR DIALYSIS PATIENTS. CBC W/PLT COUNT & AUTO [id number] 05:59:00 Test Item Value Reference Range Comments WHITE BLOOD CELL COUNT (BEAKER) (test hguz=443) 13.3 K/ L 3.5-10.5 RED BLOOD CELL COUNT (BEAKER) (test wthp=825) 5.12 M/ L 4.63-6.08 HEMOGLOBIN (BEAKER) (test qfph=389) 14.8 GM/DL 13.7-17.5 HEMATOCRIT (BEAKER) (test omjy=164) 44.7 % 40.1-51.0 MEAN CORPUSCULAR VOLUME (BEAKER) (test gmft=219) 87.3 fL 79.0-92.2 MEAN CORPUSCULAR HEMOGLOBIN (BEAKER) (test 28.9 pg 25.7-32.2 dxcr=855) MEAN CORPUSCULAR HEMOGLOBIN CONC (BEAKER) (test 33.1 GM/DL 32.3-36.5 vdwm=196) RED CELL DISTRIBUTION WIDTH (BEAKER) (test 13.4 % 11.6-14.4 tkjr=780) PLATELET COUNT (BEAKER) (test mumu=113) 235 K/CU MM 150-450 MEAN PLATELET VOLUME (BEAKER) (test obni=356) 10.8 fL 9.4-12.4 NUCLEATED RED BLOOD CELLS (BEAKER) (test 0 /100 WBC 0-0 coly=621) NEUTROPHILS RELATIVE PERCENT (BEAKER) (test 93 % tugw=122) LYMPHOCYTES RELATIVE PERCENT (BEAKER) (test 3 % suoa=641) MONOCYTES RELATIVE PERCENT (BEAKER) (test 3 % ryao=073) EOSINOPHILS RELATIVE PERCENT (BEAKER) (test 0 % ladq=704) BASOPHILS RELATIVE PERCENT (BEAKER) (test 0 % eejm=601) NEUTROPHILS ABSOLUTE COUNT (BEAKER) (test 12.42 K/ L 1.78-5.38 yhyp=269) LYMPHOCYTES ABSOLUTE COUNT (BEAKER) (test 0.39 K/ L 1.32-3.57 jeva=449) MONOCYTES ABSOLUTE COUNT (BEAKER) (test 0.43 K/ L 0.30-0.82 tbbg=857) EOSINOPHILS ABSOLUTE COUNT (BEAKER) (test 0.00 K/ L 0.04-0.54 htuc=369) BASOPHILS ABSOLUTE COUNT (BEAKER) (test 0.04 K/ L 0.01-0.08 cgfg=363) IMMATURE GRANULOCYTES-RELATIVE PERCENT (BEAKER) 0 % 0-1 (test ntfg=6955) [id number] 19:38:00 Test Item Value Reference Range Comments PHOSPHORUS (BEAKER) (test ubki=682) 2.8 mg/dL 2.3-4.7 [id number] 19:38:00 Test Item Value Reference Range Comments MAGNESIUM (BEAKER) (test ugyj=875) 1.7 mg/dL 1.6-2.6 BASIC METABOLIC [id number] 19:35:00 Test Item Value Reference Range Comments SODIUM (BEAKER) (test 139 meq/L 136-145 rysd=189) POTASSIUM (BEAKER) (test 3.7 meq/L 3.5-5.1 llej=663) CHLORIDE (BEAKER) (test 109 meq/L 98-107 luxj=371) CO2 (BEAKER) (test 20 meq/L 22-29 vjxx=199) BLOOD UREA NITROGEN 18 mg/dL 7-21 (BEAKER) (test klup=579) CREATININE (BEAKER) (test 2.10 mg/dL 0.57-1.25 ipqj=957) GLUCOSE RANDOM (BEAKER) 148 mg/dL 70-105 (test wvps=740) CALCIUM (BEAKER) (test 8.7 mg/dL 8.4-10.2 qfdq=110) EGFR (BEAKER) (test 39 mL/min/1.73 sq m ESTIMATED GFR IS NOT pbkx=8025) ACCURATE CREATININE CLEARANCE IN PREDICTING GLOMERULAR FILTRATION RATE. ESTIMATED GFR IS NOT APPLICABLE FOR DIALYSIS PATIENTS. HEMOGLOBIN AND [id number] 19:07:00 Test Item Value Reference Range Comments HEMOGLOBIN (BEAKER) (test tjsf=322) 13.7 GM/DL 13.7-17.5 HEMATOCRIT (BEAKER) (test fgup=955) 40.5 % 40.1-51.0 URINE [id number] 13:12:00 Test Item Value Reference Range Comments CULTURE (BEAKER) (test fbpl=4556) No growth BASIC METABOLIC [id number] 17:19:00 Test Item Value Reference Range Comments SODIUM (BEAKER) (test 138 meq/L 136-145 komg=128) POTASSIUM (BEAKER) (test 4.4 meq/L 3.5-5.1 Specimen slightly adar=464) hemolyzed CHLORIDE (BEAKER) (test 103 meq/L 98-107 iedz=725) CO2 (BEAKER) (test 27 meq/L 22-29 kpqz=869) BLOOD UREA NITROGEN 19 mg/dL 7-21 (BEAKER) (test yfha=838) CREATININE (BEAKER) (test 2.11 mg/dL 0.57-1.25 Specimen slightly jfer=868) hemolyzed GLUCOSE RANDOM (BEAKER) 98 mg/dL 70-105 (test keil=591) CALCIUM (BEAKER) (test 9.6 mg/dL 8.4-10.2 cgtj=244) EGFR (BEAKER) (test 38 mL/min/1.73 sq m ESTIMATED GFR IS NOT rgbc=0462) ACCURATE CREATININE CLEARANCE IN PREDICTING GLOMERULAR FILTRATION RATE. ESTIMATED GFR IS NOT APPLICABLE FOR DIALYSIS PATIENTS. URINALYSIS W/ [id number] 17:15:00 Test Item Value Reference Range Comments COLOR (BEAKER) (test faej=850) Yellow CLARITY (BEAKER) (test nknd=229) Clear SPECIFIC GRAVITY UA (BEAKER) (test qqae=323) 1.013 1.001-1.035 PH UA (BEAKER) (test kvjr=407) 6.0 5.0-8.0 PROTEIN UA (BEAKER) (test mweu=380) 100 mg/dL Negative GLUCOSE UA (BEAKER) (test lacn=440) Negative Negative KETONES UA (BEAKER) (test nxea=772) Negative Negative BILIRUBIN UA (BEAKER) (test iaww=934) Negative Negative BLOOD UA (BEAKER) (test otdy=381) Trace Negative NITRITE UA (BEAKER) (test kltk=417) Negative Negative LEUKOCYTE ESTERASE UA (BEAKER) (test ulkm=265) Negative Negative UROBILINOGEN UA (BEAKER) (test czkz=066) 0.2 mg/dL 0.2-1.0 RBC UA (BEAKER) (test ipuo=217) 7 /HPF WBC UA (BEAKER) (test enuh=698) 2 /HPF MUCUS (BEAKER) (test jsoj=9668) Rare SOURCE(BEAKER) (test ckvp=1955) [id number] 17:07:00 Test Item Value Reference Range Comments PARTIAL THROMBOPLASTIN TIME (BEAKER) (test 28.1 seconds 22.5-36.0 jjxf=158) PROTHROMBIN TIME/[id number] 17:06:00 Test Item Value Reference Range Comments PROTIME (BEAKER) (test vbul=352) 13.6 seconds 11.7-14.7 INR (BEAKER) (test lsai=956) 1.0 <=5.9 RECOMMENDED COUMADIN/WARFARIN INR THERAPY RANGESSTANDARD DOSE: 2.0 - 3.0 Includes: PROPHYLAXIS forvenous thrombosis, systemic embolization; TREATMENT for venous thrombosis and/or pulmonary embolus.HIGH RISK: Target INR is 2.5-3.5 for patients with mechanical heart valves.CBC W/PLT COUNT & AUTO [id number] 16:53:00 Test Item Value Reference Range Comments WHITE BLOOD CELL COUNT (BEAKER) (test oeir=522) 4.1 K/ L 3.5-10.5 RED BLOOD CELL COUNT (BEAKER) (test yrgx=178) 4.79 M/ L 4.63-6.08 HEMOGLOBIN (BEAKER) (test zzhr=095) 13.8 GM/DL 13.7-17.5 HEMATOCRIT (BEAKER) (test idlj=450) 42.2 % 40.1-51.0 MEAN CORPUSCULAR VOLUME (BEAKER) (test chav=055) 88.1 fL 79.0-92.2 MEAN CORPUSCULAR HEMOGLOBIN (BEAKER) (test 28.8 pg 25.7-32.2 ziuj=268) MEAN CORPUSCULAR HEMOGLOBIN CONC (BEAKER) (test 32.7 GM/DL 32.3-36.5 sjhb=483) RED CELL DISTRIBUTION WIDTH (BEAKER) (test 13.2 % 11.6-14.4 hgdu=633) PLATELET COUNT (BEAKER) (test agdh=253) 188 K/CU MM 150-450 MEAN PLATELET VOLUME (BEAKER) (test olhk=424) 10.3 fL 9.4-12.4 NUCLEATED RED BLOOD CELLS (BEAKER) (test 0 /100 WBC 0-0 oeiw=537) NEUTROPHILS RELATIVE PERCENT (BEAKER) (test 49 % lnun=549) LYMPHOCYTES RELATIVE PERCENT (BEAKER) (test 36 % imok=452) MONOCYTES RELATIVE PERCENT (BEAKER) (test 12 % qnam=456) EOSINOPHILS RELATIVE PERCENT (BEAKER) (test 2 % aens=725) BASOPHILS RELATIVE PERCENT (BEAKER) (test 1 % xbjb=986) NEUTROPHILS ABSOLUTE COUNT (BEAKER) (test 2.00 K/ L 1.78-5.38 ewjq=145) LYMPHOCYTES ABSOLUTE COUNT (BEAKER) (test 1.47 K/ L 1.32-3.57 ajbs=873) MONOCYTES ABSOLUTE COUNT (BEAKER) (test 0.49 K/ L 0.30-0.82 rlye=333) EOSINOPHILS ABSOLUTE COUNT (BEAKER) (test 0.07 K/ L 0.04-0.54 dnxz=706) BASOPHILS ABSOLUTE COUNT (BEAKER) (test 0.03 K/ L 0.01-0.08 djsh=096) IMMATURE GRANULOCYTES-RELATIVE PERCENT (BEAKER) 0 % 0-1 (test rris=6870) TISSUE [id number] 11:47:00Surgical Pathology Report Case: [id number] Authorizing Provider: Malcom Castaneda Collected: 03/02/2017 1029 MD Cinthia [facility] Received: 2016 1140 Pathologist: Jenniffer Weber MD Specimen: Kidney, Left KIDNEY, LEFT, BIOPSY: - RENAL CELL CARCINOMA (SEE COMMENT) The tumor is composed of eosinophilic cells forming tubules with interspersed stromal mucin. Focal foamy macrophages are noted. The differential diagnosis includes papillary renal cell carcinoma and mucinous tubular and spindle cell carcinoma. Recommend complete excision of the lesion for a more definitive diagnosis. These results were relayed to Dr. Currie on 03/06/2017 at 11:40 am. Intradepartmental consultation: Dr. Koko Whitney, Dr. Umu Manzanares/[id number] , [id number], [id number] x2Left [facility]The specimen is received in fixative and designated as "tissue exam", consists of multiple white-pend[place] tissue cores ranging in size from 0.1 to 0.8 cm in greatest dimension. All tissue cores are submitted into A1. MG/ew Performed The following special studies were performed onthis case with appropriate and reactive controls and the interpretation is incorporated in the diagnostic report above:AE1/AE3: PositiveCK7: Positive (focal)AMACR: PositiveThe immunohistochemistry testwas developed and its performance characteristics determined by [facility], Pathology Laboratory. It has not been cleared or approved by the U.S. Food and Drug Administration. The FDAhas determined that such clearance or approval is not necessary. The test is used for clinical purposes. It should not be regarded as investigational or for research. This laboratory is certified undert Clinical Laboratory Improvement Amendments of 1988 (CLIA-88) as qualified to perform high complexity clinical laboratory testing.[id number] 08:19:00 Test Item Value Reference Range Comments PROTIME (BEAKER) (test ayiy=881) 10.0 seconds 9.3-12.0 INR (BEAKER) (test gkeg=440) 0.9 <=5.9 PARTIAL THROMBOPLASTIN TIME (BEAKER) (test 27.3 seconds 23.0-35.0 rdrj=294) RECOMMENDED COUMADIN/WARFARIN INR THERAPY RANGESSTANDARD DOSE: 2.0 - 3.0 Includes: PROPHYLAXIS forvenous thrombosis, systemic embolization; TREATMENT for venous thrombosis and/or pulmonary embolus.HIGH RISK: Target INR is 2.5-3.5 for patients with mechanical heart valves.CBC W/PLT COUNT & AUTO [id number] 08:14:00 Test Item Value Reference Range Comments WHITE BLOOD CELL COUNT (BEAKER) (test bhac=104) 4.3 K/ L 4.0-10.0 RED BLOOD CELL COUNT (BEAKER) (test lptn=181) 4.76 M/ L 4.20-5.80 HEMOGLOBIN (BEAKER) (test faas=875) 14.1 GM/DL 13.0-16.8 HEMATOCRIT (BEAKER) (test oalw=108) 41.7 % 40.0-50.0 MEAN CORPUSCULAR VOLUME (BEAKER) (test axcl=950) 87.6 fL 82.0-98.0 MEAN CORPUSCULAR HEMOGLOBIN (BEAKER) (test 29.7 pg 27.0-33.0 xrkx=513) MEAN CORPUSCULAR HEMOGLOBIN CONC (BEAKER) (test 33.9 GM/DL 32.0-36.0 wtxk=276) RED CELL DISTRIBUTION WIDTH (BEAKER) (test 12.9 % 10.3-14.2 fvbw=257) PLATELET COUNT (BEAKER) (test zhiw=350) 212 K/CU MM 150-430 MEAN PLATELET VOLUME (BEAKER) (test wntm=547) 8.0 fL 6.5-10.5 NUCLEATED RED BLOOD CELLS (BEAKER) (test 0 /100 WBC 0-0 wudp=430) NEUTROPHILS RELATIVE PERCENT (BEAKER) (test 57 % jqby=908) LYMPHOCYTES RELATIVE PERCENT (BEAKER) (test 32 % olzz=441) MONOCYTES RELATIVE PERCENT (BEAKER) (test 9 % gwqv=385) EOSINOPHILS RELATIVE PERCENT (BEAKER) (test 2 % asjb=494) BASOPHILS RELATIVE PERCENT (BEAKER) (test 1 % mcqd=569) NEUTROPHILS ABSOLUTE COUNT (BEAKER) (test 2.50 K/ L 1.80-8.00 yxbg=260) LYMPHOCYTES ABSOLUTE COUNT (BEAKER) (test 1.40 K/ L 1.48-4.50 lhko=587) MONOCYTES ABSOLUTE COUNT (BEAKER) (test 0.40 K/ L 0.00-1.30 dqwd=017) EOSINOPHILS ABSOLUTE COUNT (BEAKER) (test 0.10 K/ L 0.00-0.50 wfif=470) BASOPHILS ABSOLUTE COUNT (BEAKER) (test 0.00 K/ L 0.00-0.20 kfsq=221)
--- NOTE | 2018-04-10 18:24 | RAD REPORT ---
EXAM DESCRIPTION: RAD - Ankle Right 3 View - 04/10/2018 5:50 pm CLINICAL HISTORY: Right ankle pain FINDINGS: No fracture or dislocation is seen. No bone or joint abnormality is displayed
[2018-04-10] MEDS ORDERED: HYDROCODONE/APAP 5/325 MG TAB ONE (19:24)
--- NOTE | 2018-04-10 19:53 | ER ---
Nurse's Notes [facility] Name: Aravind Low Age: 67 yrs Sex: Male : 1950 Arrival Date: 04/10/2018 Time: 16:07 Bed 27 Private MD: Out, [facility] Diagnosis: Pain in right foot Presentation: 04/10 16:11 Presenting complaint: Patient states: i havent been able to walk, i cant put pressure tw2 on my right leg, its since 2-3 days ago they. Presenting complaint: Patient states: I read the side effects of that medicine and it say it can cause cramps. Transition of care: patient was not received from another setting of care. Onset of symptoms was April 10, 2018. Risk Assessment: Do you want to hurt yourself or someone else? Patient reports no desire to harm self or others. Initial Sepsis Screen: Does the patient meet any 2 criteria? No. Patient's initial sepsis screen is negative. Does the patient have a suspected source of infection? No. Patient's initial sepsis screen is negative. Care prior to arrival: None. 16:11 Method Of Arrival: Wheelchair tw2 16:11 Acuity: ANTONIO 4 tw2 Historical: - Allergies: 16:17 No Known Allergies; tw2 - Home Meds: 16:17 Vitamin D Oral [Active]; nifedipine 30 mg Oral TbER 1 tab once daily [Active]; tw2 clonidine HCl 0.3 mg Oral tab 1 tab 2 times per day [Active]; - PMHx: 16:17 Hypertension; tw2 - Immunization history:: Adult Immunizations up to date. - Social history:: Smoking status: Patient uses tobacco products, smokes one-half pack cigarettes per day. - Ebola Screening: : Patient denies travel to an Ebola-affected area in the 21 days before illness onset. Screenin:41 Abuse screen: Denies threats or abuse. Denies injuries from another. Nutritional aj screening: No deficits noted. Tuberculosis screening: No symptoms or risk factors identified. Fall Risk None identified. Assessment: 16:36 General: Appears in no apparent distress. comfortable, Behavior is calm, cooperative, aj appropriate for age. Pain: Complains of pain in right leg. Pain: Pain began 1 week ago. Neuro: Level of Consciousness is awake, alert, obeys commands, Oriented to person, place, time, situation, Appropriate for age. Respiratory: Airway is patent Respiratory effort is even, unlabored, Respiratory pattern is regular, symmetrical. Derm: Skin is intact, is healthy with good turgor, Skin is pink, warm \T\ dry. normal. Derm:. Musculoskeletal: Reports pain in right leg. 18:46 Reassessment: Patient appears in no apparent distress at this time. No changes from aj previously documented assessment. Patient and/or family updated on plan of care and expected duration. Pain level reassessed. Patient is asleep in bed in NAD. stated that she was going to be in the lobby whenever patient is discharged. 20:01 Reassessment: Patient appears in no apparent distress at this time. No changes from previously documented assessment. Patient and/or family updated on plan of care and expected duration. Pain level reassessed. Patient states feeling better. Vital Signs: 16:13 BP 131 / 89; Pulse 75; Resp 17; Temp 97.8(TE); Pulse Ox 100% on R/A; Pain 0/10; tw2 20:02 BP 138 / 84; Pulse 83; Resp 18; Pulse Ox 99% ; wh ED Course: 16:07 Patient arrived in ED. sb2 16:07 Out, [facility] is Private Physician. sb2 16:13 Triage completed. tw2 16:13 Arm band placed on. tw2 16:35 Rosalie Escalera, EVELINA is Primary Nurse. aj 16:41 Patient has correct armband on for positive identification. aj 16:42 [facility]C [facility]. snw 16:42 Ovidio Díaz MD is Attending Physician. snw 17:44 X-ray completed. Portable x-ray completed in exam room. Patient tolerated procedure ml well. 17:47 Ankle Right 3 View XRAY In Process Unspecified. EDMS 19:10 Cherie Perez is Primary Nurse. wh 20:03 No provider procedures requiring assistance completed. Patient did not have IV access during this emergency room visit. Administered Medications: 19:21 Drug: [place] 5 mg-325 mg 1 tabs Route: PO; 20:01 Follow up: Response: No adverse reaction Outcome: 19:53 Discharge ordered by . snw 20:03 Discharged to home ambulatory. wh 20:03 Condition: good 20:03 Discharge instructions given to patient, family, Instructed on discharge instructions, follow up and referral plans. no drinking with medication, no driving heavy equipment, medication usage, POC Musculoskeletal Pain Demonstrated understanding of instructions, follow-up care, medications, POC Prescriptions given X 1. 20:04 Patient left the ED. Signatures: Dispatcher [employer] Rosalie Mack RN RN aj Therrien, Shelly, END PACKER-C END PACKER-Csnw Zahra Tiwari Tara, RN RN tw2 Cherie Perez Sheri sb2
--- NOTE | 2018-04-10 19:53 | EDPHYS ---
Physician Documentation [facility] Name: Aravind Low Age: 67 yrs Sex: Male : 1950 Arrival Date: 04/10/2018 Time: 16:07 Bed 27 Private MD: Out, [facility] ED Physician Ovidio Díaz HPI: 04/10 18:16 This 67 yrs old Black Male presents to ER via Wheelchair with complaints of Leg Pain. snw 18:16 The patient presents with pain, that is acute. The complaints affect the lateral aspect snw of right foot. Context: The problem was sustained at home, resulted from an unknown cause, pt states the pain started at the same time as a new medication - nifedipine, the patient can partially bear weight, the patient is able to ambulate, with moderate difficulty, Problem is a result from a previous injury: No. Onset: The symptoms/episode began/occurred suddenly, 3 day(s) ago, and became persistent. Associated signs and symptoms: Pertinent positives: pain to lateral foot, Pertinent negatives calf tenderness, swelling, warmth, weakness. Treatment prior to arrival includes: no previous treatment. Severity of symptoms: At their worst the symptoms were moderate. The patient has not experienced similar symptoms in the past. The patient has been recently seen by a physician: the patient's primary care provider, with different complaint(s), given Nifedipine. Historical: - Allergies: 16:17 No Known Allergies; tw2 - Home Meds: 16:17 Vitamin D Oral [Active]; nifedipine 30 mg Oral TbER 1 tab once daily [Active]; tw2 clonidine HCl 0.3 mg Oral tab 1 tab 2 times per day [Active]; - PMHx: 16:17 Hypertension; tw2 - Immunization history:: Adult Immunizations up to date. - Social history:: Smoking status: Patient uses tobacco products, smokes one-half pack cigarettes per day. - Ebola Screening: : Patient denies travel to an Ebola-affected area in the 21 days before illness onset. ROS: 18:01 Constitutional: Negative for fever, chills, and weight loss, Eyes: Negative for injury, snw pain, redness, and discharge, ENT: Negative for injury, pain, and discharge, Neck: Negative for injury, pain, and swelling, Cardiovascular: Negative for chest pain, palpitations, and edema, Respiratory: Negative for shortness of breath, cough, wheezing, and pleuritic chest pain, Abdomen/GI: Negative for abdominal pain, nausea, vomiting, diarrhea, and constipation, Back: Negative for injury and pain, : Negative for injury, bleeding, discharge, and swelling, MS/Extremity: Negative for injury and deformity, cannot walk on right foot secondary to pain Skin: Negative for injury, rash, and discoloration, Neuro: Negative for headache, weakness, numbness, tingling, and seizure, Psych: Negative for depression, anxiety, suicide ideation, homicidal ideation, and hallucinations. Exam: 17:11 Constitutional: This is a well developed, well nourished patient who is awake, alert, snw and in no acute distress. Head/Face: Normocephalic, atraumatic. Eyes: Pupils equal round and reactive to light, extra-ocular motions intact. Lids and lashes normal. Conjunctiva and sclera are non-icteric and not injected. Cornea within normal limits. Periorbital areas with no swelling, redness, or edema. ENT: Nares patent. No nasal discharge, no septal abnormalities noted. Tympanic membranes are normal and external auditory canals are clear. Oropharynx with no redness, swelling, or masses, exudates, or evidence of obstruction, uvula midline. Mucous membranes moist. Neck: Trachea midline, no thyromegaly or masses palpated, and no cervical lymphadenopathy. Supple, full range of motion without nuchal rigidity, or vertebral point tenderness. No Meningismus. Chest/axilla: Normal chest wall appearance and motion. Nontender with no deformity. No lesions are appreciated. 17:11 Respiratory: Lungs have equal breath sounds bilaterally, clear to auscultation and percussion. No rales, rhonchi or wheezes noted. No increased work of breathing, no retractions or nasal flaring. Abdomen/GI: Soft, non-tender, with normal bowel sounds. No distension or tympany. No guarding or rebound. No evidence of tenderness throughout. Back: No spinal tenderness. No costovertebral tenderness. Full range of motion. Neuro: Awake and alert, GCS 15, oriented to person, place, time, and situation. Cranial nerves II-XII grossly intact. Motor strength 5/5 in all extremities. Sensory grossly intact. Cerebellar exam normal. Normal gait. Psych: Awake, alert, with orientation to person, place and time. Behavior, mood, and affect are within normal limits. 17:11 Cardiovascular: Rate: normal, Rhythm: regular, Heart sounds: murmur, Edema: is not appreciated, JVD: is not appreciated. 17:11 Musculoskeletal/extremity: Extremities: grossly normal except: noted in the right lateral malleolus and dorsum of right foot: pain, ROM: no acute changes, Circulation is intact in all extremities. Sensation intact. 17:11 Skin: Appearance: Color: normal in color, Moisture: dry. Vital Signs: 16:13 BP 131 / 89; Pulse 75; Resp 17; Temp 97.8(TE); Pulse Ox 100% on R/A; Pain 0/10; tw2 20:02 BP 138 / 84; Pulse 83; Resp 18; Pulse Ox 99% ; wh MDM: 16:59 Patient medically screened. snw 19:55 Data reviewed: vital signs, nurses notes. Data interpreted: Pulse oximetry: on room air snw is 100 %. Counseling: I had a detailed discussion with the patient and/or guardian regarding: the historical points, exam findings, and any diagnostic results supporting the discharge/admit diagnosis, the presence of at least one elevated blood pressure reading (>120/80) during this emergency department visit, radiology results, the need for outpatient follow up, to return to the emergency department if symptoms worsen or persist or if there are any questions or concerns that arise at home. Special discussion: I have referred the patient to see his PCP for further evaluation of high blood pressure. Based on the history and exam findings, there is no indication for further emergent testing or inpatient evaluation. I discussed with the patient/guardian the need to see the primary care provider for further evaluation of the symptoms. 04/10 17:00 Order name: Ankle Right 3 View XRAY; Complete Time: 18:29 snw Administered Medications: 19:21 Drug: [place] 5 mg-325 mg 1 tabs Route: PO; 20:01 Follow up: Response: No adverse reaction Disposition: 04/11 07:12 Co-signature as Attending Physician, Ovidio Díaz MD. rn Disposition: 04/10/18 19:53 Discharged to Home. Impression: Pain in right foot. - Condition is Stable. - Discharge Instructions: Musculoskeletal Pain, Cryotherapy, Heat Therapy. - Prescriptions for Ultram 50 mg Oral Tablet - take 1 tablet by ORAL route every 6 hours As needed; 10 tablet. - Medication Reconciliation Form, Thank You Letter, Antibiotic Education, Prescription Opioid Use form. - Follow up: Private Physician; When: 1 - 2 days; Reason: Recheck today's complaints, Continuance of care, Re-evaluation by your physician. Follow up: Emergency Department; When: As needed; Reason: Worsening of condition. Signatures: Dispatcher [employer] EDME Ju Vallejo, USED BUILDING MATERIALS YARD WORKER-C USED BUILDING MATERIALS YARD WORKER-Csnw Ovidio Díaz MD MD rn Char Arce RN RN tw2 Cherie Perez Corrections: (The following items were deleted from the chart) 04/10 17:27 16:45 Hip Right 2 View+RAD.RAD.BRZ ordered. [facility] 18:24 18:16 Context: The problem was sustained at home, resulted from an unknown cause, pt snw states the pain started at the same time as a new medication - amlodipine, the patient can partially bear weight, the patient is able to ambulate, with moderate difficulty, Problem is a result from a previous injury: No. snw 20:04 19:53 04/10/2018 19:53 Discharged to Home. Impression: Pain in right foot. Condition is wh Stable. Forms are Medication Reconciliation Form, Thank You Letter, Antibiotic Education, Prescription Opioid Use. Follow up: Private Physician; When: 1 - 2 days; Reason: Recheck today's complaints, Continuance of care, Re-evaluation by your physician. Follow up: Emergency Department; When: As needed; Reason: Worsening of condition. snw
== END 2018-04-10 20:04 | disposition home or self-care (01) ==
LOC: ER 16:04
DX: M79.671 Pain in right foot (principal); I10 Essential (primary) hypertension; F17.210 Nicotine dependence, cigarettes, uncomplicated
CPT/HCPCS: 99283

== ENCOUNTER 2018-11-08 10:55 | Emergency (ER) | payer OTHER, SELFPAY ==
--- OUTSIDE RECORDS SUMMARY | 2018-11-08 10:57 | XMS REPORT | Clinical Summary ---
:1950 Author Organization [facility] Address [address] [place] [address] Support Name Relationship Address Phone Lilia Low Unavailable [address] [place] [address] Care Team Providers Name Role Phone Wendy Primary Care Provider Allergies No Known Allergies Medications Medication Sig Dispensed Refills Start Date End Date Status cloNIDine HCl Take 0.3 mg by 0 Active (CATAPRES) 0.3 MG mouth 3 (three) tablet times daily. furosemide (LASIX) Take 40 mg by mouth 0 Active 40 MG every other day. tabletIndications: PRN amLODIPine Take 10 mg by mouth 0 Active (NORVASC) 10 MG daily. tablet bisacodyl Take 1 tablet (5 mg 30 tablet 0 10/13/2017 11/12/2017 (DULCOLAX) 5 mg EC total) by mouth tablet daily as needed for Constipation for up to 30 days. carvedilol (COREG) Take 1 tablet (12.5 60 tablet 3 10/13/2017 10/13/2018 12.5 MG tablet mg total) by mouth 2 (two) times daily. 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 Last Filed Vital Signs Not on file Plan of Treatment Not on file Results Not on fileafter 11/07/2017 Insurance Payer Benefit Plan / Group Subscriber ID Type Phone Address MEDICARE MEDICARE A B xxxxxxxxxx Medicare Advance Directives For more information, please contact:[address] [phone] Code Status Date Activated Date Inactivated Comments Full Code 10/09/2017 9:14 PM 10/14/2017 5:27 AM This code status was determined by: Patient Full Code 03/02/2017 12:28 PM 03/02/2017 10:49 PM This code status was determined by: Patient
--- OUTSIDE RECORDS SUMMARY | 2018-11-08 10:58 | XMS REPORT ---
:1950 [facility] [address] [place] [address] Care Team Providers Name Role Phone CITLALY MIMS Unavailable Unavailable JESSICAAdelso MALCOM TAYLOR Unavailable Unavailable Problems This patient has no known problems. Allergies, Adverse Reactions, Alerts This patient has no known allergies or adverse reactions. Medications This patient has no known medications. 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 The assessment of nucleolar prominence as a single parameter is noted to correlate better with outcome than other nuclear parameters (size, shape) to assign a Dami grade. ("Urologic Surgical Pathology," Janelle, third edition, 2014). Nuclear grade assigned in Synoptic portion of this report (tw, can include).This patient's previous biopsy from [facility], from 03/02/2017 ([id number]) shows a core biopsy with features similar [...] Additional Pathological Findings: Cyst(s): Simple cortical cyst 34337 X 2, 57713, 09037 x6Left renal massA. Retroperitoneal lymph node. B. [...] positive; AE1/AE3-positive; RICHARD and CK 7-focally positive; XO96-csabsowu CD10 equivocal, possibly focally positiveThe immunohistochemistry test was developed and its performance characteristics determined by [facility], Pathology Laboratory. It has not been [...] Comments SODIUM (BEAKER) (test 135 meq/L 136-145 ihed=708) POTASSIUM (BEAKER) (test 3.6 meq/L 3.5-5.1 zhvk=504) CHLORIDE (BEAKER) (test 98 meq/L 98-107 kpkt=662) CO2 (BEAKER) (test afrs=463) 22 meq/L 22-29 BLOOD UREA NITROGEN (BEAKER) 45 mg/dL 7-21 (test yhjz=943) CREATININE (BEAKER) (test 3.68 mg/dL 0.57-1.25 bznd=008) GLUCOSE RANDOM (BEAKER) 157 mg/dL 70-105 (test itjq=446) CALCIUM (BEAKER) (test 9.5 mg/dL 8.4-10.2 zbgf=674) EGFR (BEAKER) (test 20 mL/min/1.73 sq m ESTIMATED GFR IS NOT ixig=6240) ACCURATE CREATININE CLEARANCE IN PREDICTING GLOMERULAR FILTRATION RATE. ESTIMATED GFR IS NOT APPLICABLE FOR DIALYSIS PATIENTS. CBC W/PLT COUNT & AUTO [id number] 12:44:00 Test Item Value Reference Range Comments WHITE BLOOD CELL COUNT (BEAKER) (test zmiy=661) 5.0 K/ L 3.5-10.5 RED BLOOD CELL COUNT (BEAKER) (test felk=852) 4.98 M/ L 4.63-6.08 HEMOGLOBIN (BEAKER) (test ilou=313) 14.6 GM/DL 13.7-17.5 HEMATOCRIT (BEAKER) (test dkkt=993) 43.0 % 40.1-51.0 MEAN CORPUSCULAR VOLUME (BEAKER) (test epfd=997) 86.3 fL 79.0-92.2 MEAN CORPUSCULAR HEMOGLOBIN (BEAKER) (test 29.3 pg 25.7-32.2 dtoh=781) MEAN CORPUSCULAR HEMOGLOBIN CONC (BEAKER) (test 34.0 GM/DL 32.3-36.5 eeqi=160) RED CELL DISTRIBUTION WIDTH (BEAKER) (test 13.0 % 11.6-14.4 ihuf=774) PLATELET COUNT (BEAKER) (test xmlo=324) 252 K/CU MM 150-450 MEAN PLATELET VOLUME (BEAKER) (test lkpg=050) 9.7 fL 9.4-12.4 NUCLEATED RED BLOOD CELLS (BEAKER) (test 0 /100 WBC 0-0 lnwi=997) NEUTROPHILS RELATIVE PERCENT (BEAKER) (test 71 % jkyo=467) LYMPHOCYTES RELATIVE PERCENT (BEAKER) (test 18 % zftv=180) MONOCYTES RELATIVE PERCENT (BEAKER) (test 9 % teph=638) EOSINOPHILS RELATIVE PERCENT (BEAKER) (test 1 % xhle=158) BASOPHILS RELATIVE PERCENT (BEAKER) (test 1 % twjs=092) NEUTROPHILS ABSOLUTE COUNT (BEAKER) (test 3.52 K/ L 1.78-5.38 jcit=903) LYMPHOCYTES ABSOLUTE COUNT (BEAKER) (test 0.87 K/ L 1.32-3.57 xllc=512) MONOCYTES ABSOLUTE COUNT (BEAKER) (test 0.46 K/ L 0.30-0.82 mbeb=734) EOSINOPHILS ABSOLUTE COUNT (BEAKER) (test 0.05 K/ L 0.04-0.54 rmpd=034) BASOPHILS ABSOLUTE COUNT (BEAKER) (test 0.05 K/ L 0.01-0.08 kyjp=601) IMMATURE GRANULOCYTES-RELATIVE PERCENT (BEAKER) 0 % 0-1 (test qkxz=8069) BASIC METABOLIC [id number] 15:02:00 Test Item Value Reference Range Comments SODIUM (BEAKER) (test 132 meq/L 136-145 ahie=658) POTASSIUM (BEAKER) (test 3.8 meq/L 3.5-5.1 anfz=182) CHLORIDE (BEAKER) (test 97 meq/L 98-107 hqcc=859) CO2 (BEAKER) (test 24 meq/L 22-29 lzwi=271) BLOOD UREA NITROGEN 42 mg/dL 7-21 (BEAKER) (test lmec=345) CREATININE (BEAKER) (test 3.78 mg/dL 0.57-1.25 svoj=845) GLUCOSE RANDOM (BEAKER) 108 mg/dL 70-105 (test werv=036) CALCIUM (BEAKER) (test 9.4 mg/dL 8.4-10.2 jppc=664) EGFR (BEAKER) (test 20 mL/min/1.73 sq m ESTIMATED GFR IS NOT iwog=5033) ACCURATE CREATININE CLEARANCE IN PREDICTING GLOMERULAR FILTRATION RATE. ESTIMATED GFR IS NOT APPLICABLE FOR DIALYSIS PATIENTS. Please draw at 2:00pmBASI METABOLIC [id number] 06:14:00 Test Item Value Reference Range Comments SODIUM (BEAKER) (test 133 meq/L 136-145 cfju=686) POTASSIUM (BEAKER) (test 3.8 meq/L 3.5-5.1 seqc=578) CHLORIDE (BEAKER) (test 100 meq/L 98-107 jjss=287) CO2 (BEAKER) (test 23 meq/L 22-29 wqzz=910) BLOOD UREA NITROGEN 33 mg/dL 7-21 (BEAKER) (test xwtv=750) CREATININE (BEAKER) (test 3.27 mg/dL 0.57-1.25 nvgl=444) GLUCOSE RANDOM (BEAKER) 87 mg/dL 70-105 (test bamg=419) CALCIUM (BEAKER) (test 9.0 mg/dL 8.4-10.2 isov=618) EGFR (BEAKER) (test 23 mL/min/1.73 sq m ESTIMATED GFR IS NOT xact=6620) ACCURATE CREATININE CLEARANCE IN PREDICTING GLOMERULAR FILTRATION RATE. ESTIMATED GFR IS NOT APPLICABLE FOR DIALYSIS PATIENTS. [id number] 06:03:00 Test Item Value Reference Range Comments PHOSPHORUS (BEAKER) (test tnjr=170) 2.7 mg/dL 2.3-4.7 [id number] 06:03:00 Test Item Value Reference Range Comments MAGNESIUM (BEAKER) (test rjtv=131) 2.1 mg/dL 1.6-2.6 CBC W/PLT COUNT & AUTO [id number] 05:16:00 Test Item Value Reference Range Comments WHITE BLOOD CELL COUNT (BEAKER) (test meji=855) 6.7 K/ L 3.5-10.5 RED BLOOD CELL COUNT (BEAKER) (test xeyv=450) 4.59 M/ L 4.63-6.08 HEMOGLOBIN (BEAKER) (test wiro=416) 13.6 GM/DL 13.7-17.5 HEMATOCRIT (BEAKER) (test mwwu=936) 39.8 % 40.1-51.0 MEAN CORPUSCULAR VOLUME (BEAKER) (test mwsz=043) 86.7 fL 79.0-92.2 MEAN CORPUSCULAR HEMOGLOBIN (BEAKER) (test 29.6 pg 25.7-32.2 zdtk=231) MEAN CORPUSCULAR HEMOGLOBIN CONC (BEAKER) (test 34.2 GM/DL 32.3-36.5 tiww=422) RED CELL DISTRIBUTION WIDTH (BEAKER) (test 13.2 % 11.6-14.4 fwbq=274) PLATELET COUNT (BEAKER) (test qjba=270) 209 K/CU MM 150-450 MEAN PLATELET VOLUME (BEAKER) (test eabb=077) 10.2 fL 9.4-12.4 NUCLEATED RED BLOOD CELLS (BEAKER) (test 0 /100 WBC 0-0 lncw=703) NEUTROPHILS RELATIVE PERCENT (BEAKER) (test 71 % sumv=996) LYMPHOCYTES RELATIVE PERCENT (BEAKER) (test 16 % qckh=490) MONOCYTES RELATIVE PERCENT (BEAKER) (test 12 % ddkq=896) EOSINOPHILS RELATIVE PERCENT (BEAKER) (test 1 % fjys=713) BASOPHILS RELATIVE PERCENT (BEAKER) (test 0 % vkpq=364) NEUTROPHILS ABSOLUTE COUNT (BEAKER) (test 4.75 K/ L 1.78-5.38 hwgm=278) LYMPHOCYTES ABSOLUTE COUNT (BEAKER) (test 1.07 K/ L 1.32-3.57 boxu=167) MONOCYTES ABSOLUTE COUNT (BEAKER) (test 0.77 K/ L 0.30-0.82 kzik=325) EOSINOPHILS ABSOLUTE COUNT (BEAKER) (test 0.06 K/ L 0.04-0.54 thnz=792) BASOPHILS ABSOLUTE COUNT (BEAKER) (test 0.03 K/ L 0.01-0.08 qbso=418) IMMATURE GRANULOCYTES-RELATIVE PERCENT (BEAKER) 0 % 0-1 (test iefc=5224) IRON, TIBC, % SAT. (WITHOUT FERRITIN)2017-10-11 06:55:00 Test Item Value Reference Range Comments IRON (BEAKER) (test ickr=333) 49 ug/dL 40-160 TOTAL IRON BINDING CAPACITY (BEAKER) (test 236 ug/dL 250-450 nusx=459) IRON % SATURATION (2) (BEAKER) (test apbk=2640) 21 % 20-55 BASIC METABOLIC [id number] 05:41:00 Test Item Value Reference Range Comments SODIUM (BEAKER) (test 136 meq/L 136-145 frxw=568) POTASSIUM (BEAKER) (test 3.7 meq/L 3.5-5.1 pitm=938) CHLORIDE (BEAKER) (test 102 meq/L 98-107 nktc=925) CO2 (BEAKER) (test 22 meq/L 22-29 rprf=372) BLOOD UREA NITROGEN 25 mg/dL 7-21 (BEAKER) (test vkem=796) CREATININE (BEAKER) (test 2.84 mg/dL 0.57-1.25 ehhp=822) GLUCOSE RANDOM (BEAKER) 99 mg/dL 70-105 (test vdcz=215) CALCIUM (BEAKER) (test 9.4 mg/dL 8.4-10.2 alud=833) EGFR (BEAKER) (test 27 mL/min/1.73 sq m ESTIMATED GFR IS NOT arpi=7752) ACCURATE CREATININE CLEARANCE IN PREDICTING GLOMERULAR FILTRATION RATE. ESTIMATED GFR IS NOT APPLICABLE FOR DIALYSIS PATIENTS. [id number] 05:36:00 Test Item Value Reference Range Comments PHOSPHORUS (BEAKER) (test qjyf=605) 2.8 mg/dL 2.3-4.7 [id number] 05:36:00 Test Item Value Reference Range Comments MAGNESIUM (BEAKER) (test aqtn=659) 2.2 mg/dL 1.6-2.6 PTH, [id number] 05:33:00 Test Item Value Reference Range Comments PARATHYROID HORMONE INTACT (BEAKER) (test 212.3 pg/mL 8.5-72.5 okzr=536) CBC W/PLT COUNT & AUTO [id number] 05:02:00 Test Item Value Reference Range Comments WHITE BLOOD CELL COUNT (BEAKER) (test bbgm=125) 8.8 K/ L 3.5-10.5 RED BLOOD CELL COUNT (BEAKER) (test ujqd=708) 4.89 M/ L 4.63-6.08 HEMOGLOBIN (BEAKER) (test wdwy=741) 14.5 GM/DL 13.7-17.5 HEMATOCRIT (BEAKER) (test pudy=111) 42.6 % 40.1-51.0 MEAN CORPUSCULAR VOLUME (BEAKER) (test ztbd=359) 87.1 fL 79.0-92.2 MEAN CORPUSCULAR HEMOGLOBIN (BEAKER) (test 29.7 pg 25.7-32.2 djtk=067) MEAN CORPUSCULAR HEMOGLOBIN CONC (BEAKER) (test 34.0 GM/DL 32.3-36.5 evdn=177) RED CELL DISTRIBUTION WIDTH (BEAKER) (test 13.5 % 11.6-14.4 nwck=960) PLATELET COUNT (BEAKER) (test hrbz=646) 205 K/CU MM 150-450 MEAN PLATELET VOLUME (BEAKER) (test hloc=895) 9.9 fL 9.4-12.4 NUCLEATED RED BLOOD CELLS (BEAKER) (test 0 /100 WBC 0-0 yeem=003) NEUTROPHILS RELATIVE PERCENT (BEAKER) (test 76 % caeb=985) LYMPHOCYTES RELATIVE PERCENT (BEAKER) (test 13 % mkjm=625) MONOCYTES RELATIVE PERCENT (BEAKER) (test 9 % dqlm=443) EOSINOPHILS RELATIVE PERCENT (BEAKER) (test 0 % lria=279) BASOPHILS RELATIVE PERCENT (BEAKER) (test 1 % emde=852) NEUTROPHILS ABSOLUTE COUNT (BEAKER) (test 6.68 K/ L 1.78-5.38 pslo=464) LYMPHOCYTES ABSOLUTE COUNT (BEAKER) (test 1.17 K/ L 1.32-3.57 ezhs=882) MONOCYTES ABSOLUTE COUNT (BEAKER) (test 0.82 K/ L 0.30-0.82 ksfm=346) EOSINOPHILS ABSOLUTE COUNT (BEAKER) (test 0.02 K/ L 0.04-0.54 pbxj=081) BASOPHILS ABSOLUTE COUNT (BEAKER) (test 0.05 K/ L 0.01-0.08 fxtv=879) IMMATURE GRANULOCYTES-RELATIVE PERCENT (BEAKER) 0 % 0-1 (test olzv=7196) [id number] 06:36:00 Test Item Value Reference Range Comments PHOSPHORUS (BEAKER) (test bviy=904) 2.4 mg/dL 2.3-4.7 [id number] 06:36:00 Test Item Value Reference Range Comments MAGNESIUM (BEAKER) (test pwpz=560) 1.8 mg/dL 1.6-2.6 BASIC METABOLIC [id number] 06:36:00 Test Item Value Reference Range Comments SODIUM (BEAKER) (test 137 meq/L 136-145 vsfj=869) POTASSIUM (BEAKER) (test 3.6 meq/L 3.5-5.1 bdax=975) CHLORIDE (BEAKER) (test 103 meq/L 98-107 zizg=777) CO2 (BEAKER) (test 19 meq/L 22-29 nwkj=703) BLOOD UREA NITROGEN 22 mg/dL 7-21 (BEAKER) (test bllz=938) CREATININE (BEAKER) (test 2.53 mg/dL 0.57-1.25 dljl=438) GLUCOSE RANDOM (BEAKER) 148 mg/dL 70-105 (test kbco=487) CALCIUM (BEAKER) (test 9.3 mg/dL 8.4-10.2 siog=367) EGFR (BEAKER) (test 31 mL/min/1.73 sq m ESTIMATED GFR IS NOT gquq=4149) ACCURATE CREATININE CLEARANCE IN PREDICTING GLOMERULAR FILTRATION RATE. ESTIMATED GFR IS NOT APPLICABLE FOR DIALYSIS PATIENTS. CBC W/PLT COUNT & AUTO [id number] 05:59:00 Test Item Value Reference Range Comments WHITE BLOOD CELL COUNT (BEAKER) (test hldq=660) 13.3 K/ L 3.5-10.5 RED BLOOD CELL COUNT (BEAKER) (test vgnb=111) 5.12 M/ L 4.63-6.08 HEMOGLOBIN (BEAKER) (test rpmu=163) 14.8 GM/DL 13.7-17.5 HEMATOCRIT (BEAKER) (test suba=416) 44.7 % 40.1-51.0 MEAN CORPUSCULAR VOLUME (BEAKER) (test gxvd=721) 87.3 fL 79.0-92.2 MEAN CORPUSCULAR HEMOGLOBIN (BEAKER) (test 28.9 pg 25.7-32.2 cjtp=139) MEAN CORPUSCULAR HEMOGLOBIN CONC (BEAKER) (test 33.1 GM/DL 32.3-36.5 jcto=625) RED CELL DISTRIBUTION WIDTH (BEAKER) (test 13.4 % 11.6-14.4 ylty=548) PLATELET COUNT (BEAKER) (test codb=180) 235 K/CU MM 150-450 MEAN PLATELET VOLUME (BEAKER) (test nscu=879) 10.8 fL 9.4-12.4 NUCLEATED RED BLOOD CELLS (BEAKER) (test 0 /100 WBC 0-0 toca=478) NEUTROPHILS RELATIVE PERCENT (BEAKER) (test 93 % clne=075) LYMPHOCYTES RELATIVE PERCENT (BEAKER) (test 3 % xpyw=032) MONOCYTES RELATIVE PERCENT (BEAKER) (test 3 % bnhr=754) EOSINOPHILS RELATIVE PERCENT (BEAKER) (test 0 % knwt=306) BASOPHILS RELATIVE PERCENT (BEAKER) (test 0 % vufw=870) NEUTROPHILS ABSOLUTE COUNT (BEAKER) (test 12.42 K/ L 1.78-5.38 nqoo=031) LYMPHOCYTES ABSOLUTE COUNT (BEAKER) (test 0.39 K/ L 1.32-3.57 fmum=890) MONOCYTES ABSOLUTE COUNT (BEAKER) (test 0.43 K/ L 0.30-0.82 ispm=988) EOSINOPHILS ABSOLUTE COUNT (BEAKER) (test 0.00 K/ L 0.04-0.54 sdew=832) BASOPHILS ABSOLUTE COUNT (BEAKER) (test 0.04 K/ L 0.01-0.08 itym=798) IMMATURE GRANULOCYTES-RELATIVE PERCENT (BEAKER) 0 % 0-1 (test wnif=9599) [id number] 19:38:00 Test Item Value Reference Range Comments PHOSPHORUS (BEAKER) (test vvrl=681) 2.8 mg/dL 2.3-4.7 [id number] 19:38:00 Test Item Value Reference Range Comments MAGNESIUM (BEAKER) (test cnzu=820) 1.7 mg/dL 1.6-2.6 BASIC METABOLIC [id number] 19:35:00 Test Item Value Reference Range Comments SODIUM (BEAKER) (test 139 meq/L 136-145 tuop=005) POTASSIUM (BEAKER) (test 3.7 meq/L 3.5-5.1 bbpl=954) CHLORIDE (BEAKER) (test 109 meq/L 98-107 upbg=702) CO2 (BEAKER) (test 20 meq/L 22-29 qrzn=854) BLOOD UREA NITROGEN 18 mg/dL 7-21 (BEAKER) (test wkqj=271) CREATININE (BEAKER) (test 2.10 mg/dL 0.57-1.25 wzgv=212) GLUCOSE RANDOM (BEAKER) 148 mg/dL 70-105 (test xise=935) CALCIUM (BEAKER) (test 8.7 mg/dL 8.4-10.2 wsqr=865) EGFR (BEAKER) (test 39 mL/min/1.73 sq m ESTIMATED GFR IS NOT yffq=9345) ACCURATE CREATININE CLEARANCE IN PREDICTING GLOMERULAR FILTRATION RATE. ESTIMATED GFR IS NOT APPLICABLE FOR DIALYSIS PATIENTS. HEMOGLOBIN AND [id number] 19:07:00 Test Item Value Reference Range Comments HEMOGLOBIN (BEAKER) (test cqay=708) 13.7 GM/DL 13.7-17.5 HEMATOCRIT (BEAKER) (test xdhd=716) 40.5 % 40.1-51.0 URINE [id number] 13:12:00 Test Item Value Reference Range Comments CULTURE (BEAKER) (test vdja=0056) No growth BASIC METABOLIC [id number] 17:19:00 Test Item Value Reference Range Comments SODIUM (BEAKER) (test 138 meq/L 136-145 xvpl=342) POTASSIUM (BEAKER) (test 4.4 meq/L 3.5-5.1 Specimen slightly xcrw=687) hemolyzed CHLORIDE (BEAKER) (test 103 meq/L 98-107 pbvw=455) CO2 (BEAKER) (test 27 meq/L 22-29 leag=334) BLOOD UREA NITROGEN 19 mg/dL 7-21 (BEAKER) (test vkik=751) CREATININE (BEAKER) (test 2.11 mg/dL 0.57-1.25 Specimen slightly wmfn=922) hemolyzed GLUCOSE RANDOM (BEAKER) 98 mg/dL 70-105 (test rqgk=958) CALCIUM (BEAKER) (test 9.6 mg/dL 8.4-10.2 pchd=462) EGFR (BEAKER) (test 38 mL/min/1.73 sq m ESTIMATED GFR IS NOT pgzd=7414) ACCURATE CREATININE CLEARANCE IN PREDICTING GLOMERULAR FILTRATION RATE. ESTIMATED GFR IS NOT APPLICABLE FOR DIALYSIS PATIENTS. URINALYSIS W/ [id number] 17:15:00 Test Item Value Reference Range Comments COLOR (BEAKER) (test jnbs=590) Yellow CLARITY (BEAKER) (test azub=592) Clear SPECIFIC GRAVITY UA (BEAKER) (test niow=185) 1.013 1.001-1.035 PH UA (BEAKER) (test awsd=501) 6.0 5.0-8.0 PROTEIN UA (BEAKER) (test bslh=050) 100 mg/dL Negative GLUCOSE UA (BEAKER) (test qxoz=950) Negative Negative KETONES UA (BEAKER) (test ucfr=430) Negative Negative BILIRUBIN UA (BEAKER) (test xzap=490) Negative Negative BLOOD UA (BEAKER) (test okdw=919) Trace Negative NITRITE UA (BEAKER) (test obwq=258) Negative Negative LEUKOCYTE ESTERASE UA (BEAKER) (test ndse=419) Negative Negative UROBILINOGEN UA (BEAKER) (test yctd=224) 0.2 mg/dL 0.2-1.0 RBC UA (BEAKER) (test elka=267) 7 /HPF WBC UA (BEAKER) (test jine=680) 2 /HPF MUCUS (BEAKER) (test fnif=7658) Rare SOURCE(BEAKER) (test knse=7087) [id number] 17:07:00 Test Item Value Reference Range Comments PARTIAL THROMBOPLASTIN TIME (BEAKER) (test 28.1 seconds 22.5-36.0 iyqx=811) PROTHROMBIN TIME/[id number] 17:06:00 Test Item Value Reference Range Comments PROTIME (BEAKER) (test ulac=089) 13.6 seconds 11.7-14.7 INR (BEAKER) (test lpdp=310) 1.0 <=5.9 RECOMMENDED COUMADIN/WARFARIN INR THERAPY RANGESSTANDARD DOSE: 2.0 - 3.0 Includes: PROPHYLAXIS forvenous thrombosis, systemic embolization; TREATMENT for venous thrombosis and/or pulmonary embolus.HIGH RISK: Target INR is 2.5-3.5 for patients with mechanical heart valves.CBC W/PLT COUNT & AUTO [id number] 16:53:00 Test Item Value Reference Range Comments WHITE BLOOD CELL COUNT (BEAKER) (test dbwh=769) 4.1 K/ L 3.5-10.5 RED BLOOD CELL COUNT (BEAKER) (test katf=717) 4.79 M/ L 4.63-6.08 HEMOGLOBIN (BEAKER) (test imgc=276) 13.8 GM/DL 13.7-17.5 HEMATOCRIT (BEAKER) (test bhef=450) 42.2 % 40.1-51.0 MEAN CORPUSCULAR VOLUME (BEAKER) (test cjrw=416) 88.1 fL 79.0-92.2 MEAN CORPUSCULAR HEMOGLOBIN (BEAKER) (test 28.8 pg 25.7-32.2 zufk=316) MEAN CORPUSCULAR HEMOGLOBIN CONC (BEAKER) (test 32.7 GM/DL 32.3-36.5 fqov=211) RED CELL DISTRIBUTION WIDTH (BEAKER) (test 13.2 % 11.6-14.4 jwqw=963) PLATELET COUNT (BEAKER) (test wqsz=133) 188 K/CU MM 150-450 MEAN PLATELET VOLUME (BEAKER) (test eoew=561) 10.3 fL 9.4-12.4 NUCLEATED RED BLOOD CELLS (BEAKER) (test 0 /100 WBC 0-0 inet=611) NEUTROPHILS RELATIVE PERCENT (BEAKER) (test 49 % elay=530) LYMPHOCYTES RELATIVE PERCENT (BEAKER) (test 36 % kwht=446) MONOCYTES RELATIVE PERCENT (BEAKER) (test 12 % zotu=593) EOSINOPHILS RELATIVE PERCENT (BEAKER) (test 2 % fjxl=660) BASOPHILS RELATIVE PERCENT (BEAKER) (test 1 % tkvo=642) NEUTROPHILS ABSOLUTE COUNT (BEAKER) (test 2.00 K/ L 1.78-5.38 sjag=448) LYMPHOCYTES ABSOLUTE COUNT (BEAKER) (test 1.47 K/ L 1.32-3.57 jseu=897) MONOCYTES ABSOLUTE COUNT (BEAKER) (test 0.49 K/ L 0.30-0.82 bbec=250) EOSINOPHILS ABSOLUTE COUNT (BEAKER) (test 0.07 K/ L 0.04-0.54 lwon=903) BASOPHILS ABSOLUTE COUNT (BEAKER) (test 0.03 K/ L 0.01-0.08 mbwf=406) IMMATURE GRANULOCYTES-RELATIVE PERCENT (BEAKER) 0 % 0-1 (test uyxe=5671) TISSUE [id number] 11:47:00Surgical Pathology Report Case: [id number] Authorizing Provider: Malcom Castaneda Collected: 03/02/2017 1029 MD Cinthia [facility] Received: 2016 1140 Pathologist: [...] Intradepartmental consultation: Dr. Koko Whitney, Dr. Umu Manzanares/[id number] , [id number], [id number] x2Left kidney biopsy massKidn massThe specimen is received in fixative and [...] developed and its performance characteristics determined by [facility], Pathology Laboratory. It has not been cleared or approved by the U.S. Food and Drug Administration. The FDAhas determined that such clearance or approval is not necessary. The test is used for clinical purposes. It should not be regarded as investigational or for research. This laboratory is certified underthe Clinical Laboratory Improvement Amendments of 1988 (CLIA-88) as qualified to perform high complexity clinical laboratory testing.[id number] 08:19:00 Test Item Value Reference Range Comments PROTIME (BEAKER) (test wgsi=025) 10.0 seconds 9.3-12.0 INR (BEAKER) (test dmpf=321) 0.9 <=5.9 PARTIAL THROMBOPLASTIN TIME (BEAKER) (test 27.3 seconds 23.0-35.0 umsm=328) RECOMMENDED COUMADIN/WARFARIN INR THERAPY RANGESSTANDARD DOSE: 2.0 - 3.0 Includes: PROPHYLAXIS forvenous thrombosis, systemic embolization; TREATMENT for venous thrombosis and/or pulmonary embolus.HIGH RISK: Target INR is 2.5-3.5 for patients with mechanical heart valves.CBC W/PLT COUNT & AUTO [id number] 08:14:00 Test Item Value Reference Range Comments WHITE BLOOD CELL COUNT (BEAKER) (test prfj=834) 4.3 K/ L 4.0-10.0 RED BLOOD CELL COUNT (BEAKER) (test cicv=469) 4.76 M/ L 4.20-5.80 HEMOGLOBIN (BEAKER) (test lbqd=473) 14.1 GM/DL 13.0-16.8 HEMATOCRIT (BEAKER) (test gcdf=942) 41.7 % 40.0-50.0 MEAN CORPUSCULAR VOLUME (BEAKER) (test qxkx=048) 87.6 fL 82.0-98.0 MEAN CORPUSCULAR HEMOGLOBIN (BEAKER) (test 29.7 pg 27.0-33.0 mwcv=839) MEAN CORPUSCULAR HEMOGLOBIN CONC (BEAKER) (test 33.9 GM/DL 32.0-36.0 ndnl=236) RED CELL DISTRIBUTION WIDTH (BEAKER) (test 12.9 % 10.3-14.2 ncdx=183) PLATELET COUNT (BEAKER) (test xrrk=066) 212 K/CU MM 150-430 MEAN PLATELET VOLUME (BEAKER) (test lcmi=198) 8.0 fL 6.5-10.5 NUCLEATED RED BLOOD CELLS (BEAKER) (test 0 /100 WBC 0-0 ikog=596) NEUTROPHILS RELATIVE PERCENT (BEAKER) (test 57 % ppco=919) LYMPHOCYTES RELATIVE PERCENT (BEAKER) (test 32 % rjpr=480) MONOCYTES RELATIVE PERCENT (BEAKER) (test 9 % gpkp=248) EOSINOPHILS RELATIVE PERCENT (BEAKER) (test 2 % tdrw=368) BASOPHILS RELATIVE PERCENT (BEAKER) (test 1 % anfu=874) NEUTROPHILS ABSOLUTE COUNT (BEAKER) (test 2.50 K/ L 1.80-8.00 rtqz=617) LYMPHOCYTES ABSOLUTE COUNT (BEAKER) (test 1.40 K/ L 1.48-4.50 qumj=287) MONOCYTES ABSOLUTE COUNT (BEAKER) (test 0.40 K/ L 0.00-1.30 zlhd=320) EOSINOPHILS ABSOLUTE COUNT (BEAKER) (test 0.10 K/ L 0.00-0.50 bikf=046) BASOPHILS ABSOLUTE COUNT (BEAKER) (test 0.00 K/ L 0.00-0.20 yfko=592)
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
== END 2018-11-08 11:57 | disposition home or self-care (01) ==
LOC: ER 10:55
DX: S60.222A Contusion of left hand, initial encounter (principal); S80.812A Abrasion, left lower leg, initial encounter; V43.52XA Car driver injured in collision with other type car in traffic accident, initial encounter; Y93.89 Activity, other specified; Y92.410 Unspecified street and highway as the place of occurrence of the external cause
CPT/HCPCS: 99282

== ENCOUNTER 2019-01-20 22:32 | Emergency (ER) | payer OTHER ==
--- OUTSIDE RECORDS SUMMARY | 2019-01-20 22:35 | XMS REPORT | Clinical Summary ---
:1950 Author Organization [facility] Address [address] [place] [address] Support Name Relationship Address Phone Lilia Low Unavailable [address] [place] [address] Care Team Providers Name Role Phone Wendy Primary Care Provider Allergies No Known Allergies Medications Medication Sig Dispensed Refills Start Date End Date Status cloNIDine HCl Take 0.3 mg by 0 Active (CATAPRES) 0.3 MG mouth 3 (three) tablet times daily. furosemide (LASIX) 40 Take 40 mg by 0 Active MG tabletIndications: mouth every PRN other day. amLODIPine (NORVASC) Take 10 mg by 0 Active 10 MG tablet mouth daily. carvedilol (COREG) Take 1 tablet 60 tablet 3 10/13/2017 10/13/2018 12.5 MG tablet (12.5 mg total) by mouth 2 (two) times [...] Not on file Results Not on fileafter 01/19/2018 Insurance Payer Benefit Plan / Group Subscriber ID Type Phone Address MEDICARE MEDICARE A B xxxxxxxxxx Medicare Advance Directives For more information, please contact:[address] [phone] Code Status Date Activated Date Inactivated Comments Full Code 10/09/2017 9:14 PM 10/14/2017 5:27 AM This code status was determined by: Patient Full Code 03/02/2017 12:28 PM 03/02/2017 10:49 PM This code status was determined by: Patient
--- OUTSIDE RECORDS SUMMARY | 2019-01-20 22:36 | XMS REPORT ---
:1950 Author Organization [facility] Address [address] [place] [address] Care Team Providers Name Role Phone CITLALY MIMS Unavailable Unavailable MALCOM CASTANEDA Unavailable Unavailable Problems This patient has no known problems. Allergies, Adverse Reactions, Alerts This patient has no known allergies or adverse reactions. Medications This patient has no known medications. Results Test Description Test Time Test Comments Text Results Atomic Results Result Comments TISSUE EXAM 2017-10-16 09:38:00 Surgical Pathology Report Case: [id number] Authorizing Provider: Citlaly Mims MD Collected: 10/09/20171651 Ordering Location: [facility] PERI[facility] Received: 10/10/2017 0810 SERVICES [...] SYNOPTIC REPORT Signing Pathologist Direct Phone Line: [phone] signed by Joyce Sauceda MD on 10/16/2017 [...] (tw, can include).This patient's previous biopsy from [facility], from 03/02/2017 ([id number]) shows a core biopsy with features similar [...] Additional Pathological Findings: Cyst(s): Simple cortical cyst 70806 X 2, 63477, 89083 x6Left renal massA. Retroperitoneal lymph node. B. [...] positive; AE1/AE3-positive; RICHARD and CK 7-focally positive; WX11-adtsczxs CD10 equivocal, possibly focally positiveThe immunohistochemistry test was developed and its performance characteristics determined by [facility], Pathology Laboratory. It has not been cleared [...] Comments SODIUM (BEAKER) (test 135 meq/L 136-145 luai=827) POTASSIUM (BEAKER) (test 3.6 meq/L 3.5-5.1 bymi=493) CHLORIDE (BEAKER) (test 98 meq/L 98-107 uycg=361) CO2 (BEAKER) (test paks=290) 22 meq/L 22-29 BLOOD UREA NITROGEN (BEAKER) 45 mg/dL 7-21 (test lpph=832) CREATININE (BEAKER) (test 3.68 mg/dL 0.57-1.25 lenq=254) GLUCOSE RANDOM (BEAKER) 157 mg/dL 70-105 (test qtrh=176) CALCIUM (BEAKER) (test 9.5 mg/dL 8.4-10.2 tlzc=620) EGFR (BEAKER) (test 20 mL/min/1.73 sq m ESTIMATED GFR IS NOT szhi=9054) ACCURATE CREATININE CLEARANCE IN PREDICTING GLOMERULAR FILTRATION RATE. ESTIMATED GFR IS NOT APPLICABLE FOR DIALYSIS PATIENTS. CBC W/PLT COUNT & AUTO [id number] 12:44:00 Test Item Value Reference Range Comments WHITE BLOOD CELL COUNT (BEAKER) (test lxly=074) 5.0 K/ L 3.5-10.5 RED BLOOD CELL COUNT (BEAKER) (test ymph=030) 4.98 M/ L 4.63-6.08 HEMOGLOBIN (BEAKER) (test yhjz=118) 14.6 GM/DL 13.7-17.5 HEMATOCRIT (BEAKER) (test ntlv=387) 43.0 % 40.1-51.0 MEAN CORPUSCULAR VOLUME (BEAKER) (test ukuj=192) 86.3 fL 79.0-92.2 MEAN CORPUSCULAR HEMOGLOBIN (BEAKER) (test 29.3 pg 25.7-32.2 emfi=098) MEAN CORPUSCULAR HEMOGLOBIN CONC (BEAKER) (test 34.0 GM/DL 32.3-36.5 lqbu=109) RED CELL DISTRIBUTION WIDTH (BEAKER) (test 13.0 % 11.6-14.4 fbzx=193) PLATELET COUNT (BEAKER) (test onfj=129) 252 K/CU MM 150-450 MEAN PLATELET VOLUME (BEAKER) (test tfwu=842) 9.7 fL 9.4-12.4 NUCLEATED RED BLOOD CELLS (BEAKER) (test 0 /100 WBC 0-0 qhbr=287) NEUTROPHILS RELATIVE PERCENT (BEAKER) (test 71 % kyne=546) LYMPHOCYTES RELATIVE PERCENT (BEAKER) (test 18 % pjct=952) MONOCYTES RELATIVE PERCENT (BEAKER) (test 9 % hdmz=744) EOSINOPHILS RELATIVE PERCENT (BEAKER) (test 1 % tkrv=887) BASOPHILS RELATIVE PERCENT (BEAKER) (test 1 % qceq=270) NEUTROPHILS ABSOLUTE COUNT (BEAKER) (test 3.52 K/ L 1.78-5.38 sfvx=709) LYMPHOCYTES ABSOLUTE COUNT (BEAKER) (test 0.87 K/ L 1.32-3.57 tjae=345) MONOCYTES ABSOLUTE COUNT (BEAKER) (test 0.46 K/ L 0.30-0.82 afue=468) EOSINOPHILS ABSOLUTE COUNT (BEAKER) (test 0.05 K/ L 0.04-0.54 avno=974) BASOPHILS ABSOLUTE COUNT (BEAKER) (test 0.05 K/ L 0.01-0.08 pshd=604) IMMATURE GRANULOCYTES-RELATIVE PERCENT (BEAKER) 0 % 0-1 (test bahe=6804) BASIC METABOLIC [id number] 15:02:00 Test Item Value Reference Range Comments SODIUM (BEAKER) (test 132 meq/L 136-145 jfnv=964) POTASSIUM (BEAKER) (test 3.8 meq/L 3.5-5.1 fxvb=861) CHLORIDE (BEAKER) (test 97 meq/L 98-107 bxmq=464) CO2 (BEAKER) (test 24 meq/L 22-29 bhej=461) BLOOD UREA NITROGEN 42 mg/dL 7-21 (BEAKER) (test wgtm=497) CREATININE (BEAKER) (test 3.78 mg/dL 0.57-1.25 pckd=805) GLUCOSE RANDOM (BEAKER) 108 mg/dL 70-105 (test vcbg=490) CALCIUM (BEAKER) (test 9.4 mg/dL 8.4-10.2 zkvg=651) EGFR (BEAKER) (test 20 mL/min/1.73 sq m ESTIMATED GFR IS NOT qfuo=5696) ACCURATE CREATININE CLEARANCE IN PREDICTING GLOMERULAR FILTRATION RATE. ESTIMATED GFR IS NOT APPLICABLE FOR DIALYSIS PATIENTS. Please draw at 2:00pmBASI METABOLIC [id number] 06:14:00 Test Item Value Reference Range Comments SODIUM (BEAKER) (test 133 meq/L 136-145 djmc=226) POTASSIUM (BEAKER) (test 3.8 meq/L 3.5-5.1 baue=470) CHLORIDE (BEAKER) (test 100 meq/L 98-107 vrop=267) CO2 (BEAKER) (test 23 meq/L 22-29 tuqp=973) BLOOD UREA NITROGEN 33 mg/dL 7-21 (BEAKER) (test gycp=734) CREATININE (BEAKER) (test 3.27 mg/dL 0.57-1.25 nqri=876) GLUCOSE RANDOM (BEAKER) 87 mg/dL 70-105 (test cral=260) CALCIUM (BEAKER) (test 9.0 mg/dL 8.4-10.2 gnrw=163) EGFR (BEAKER) (test 23 mL/min/1.73 sq m ESTIMATED GFR IS NOT zaen=2264) ACCURATE CREATININE CLEARANCE IN PREDICTING GLOMERULAR FILTRATION RATE. ESTIMATED GFR IS NOT APPLICABLE FOR DIALYSIS PATIENTS. [id number] 06:03:00 Test Item Value Reference Range Comments PHOSPHORUS (BEAKER) (test jnyi=928) 2.7 mg/dL 2.3-4.7 [id number] 06:03:00 Test Item Value Reference Range Comments MAGNESIUM (BEAKER) (test ydoc=953) 2.1 mg/dL 1.6-2.6 CBC W/PLT COUNT & AUTO [id number] 05:16:00 Test Item Value Reference Range Comments WHITE BLOOD CELL COUNT (BEAKER) (test ldzj=573) 6.7 K/ L 3.5-10.5 RED BLOOD CELL COUNT (BEAKER) (test zyfr=716) 4.59 M/ L 4.63-6.08 HEMOGLOBIN (BEAKER) (test wgvw=300) 13.6 GM/DL 13.7-17.5 HEMATOCRIT (BEAKER) (test kuwc=342) 39.8 % 40.1-51.0 MEAN CORPUSCULAR VOLUME (BEAKER) (test sjya=936) 86.7 fL 79.0-92.2 MEAN CORPUSCULAR HEMOGLOBIN (BEAKER) (test 29.6 pg 25.7-32.2 zhqw=124) MEAN CORPUSCULAR HEMOGLOBIN CONC (BEAKER) (test 34.2 GM/DL 32.3-36.5 jwgj=626) RED CELL DISTRIBUTION WIDTH (BEAKER) (test 13.2 % 11.6-14.4 ucac=634) PLATELET COUNT (BEAKER) (test bznb=723) 209 K/CU MM 150-450 MEAN PLATELET VOLUME (BEAKER) (test etap=970) 10.2 fL 9.4-12.4 NUCLEATED RED BLOOD CELLS (BEAKER) (test 0 /100 WBC 0-0 ggmr=320) NEUTROPHILS RELATIVE PERCENT (BEAKER) (test 71 % xhuo=809) LYMPHOCYTES RELATIVE PERCENT (BEAKER) (test 16 % kddx=302) MONOCYTES RELATIVE PERCENT (BEAKER) (test 12 % riec=253) EOSINOPHILS RELATIVE PERCENT (BEAKER) (test 1 % gbwn=961) BASOPHILS RELATIVE PERCENT (BEAKER) (test 0 % pezl=259) NEUTROPHILS ABSOLUTE COUNT (BEAKER) (test 4.75 K/ L 1.78-5.38 zgaw=501) LYMPHOCYTES ABSOLUTE COUNT (BEAKER) (test 1.07 K/ L 1.32-3.57 vuoj=416) MONOCYTES ABSOLUTE COUNT (BEAKER) (test 0.77 K/ L 0.30-0.82 ofqx=552) EOSINOPHILS ABSOLUTE COUNT (BEAKER) (test 0.06 K/ L 0.04-0.54 ggnv=407) BASOPHILS ABSOLUTE COUNT (BEAKER) (test 0.03 K/ L 0.01-0.08 humo=373) IMMATURE GRANULOCYTES-RELATIVE PERCENT (BEAKER) 0 % 0-1 (test mmhi=8245) IRON, TIBC, % SAT. (WITHOUT FERRITIN)2017-10-11 06:55:00 Test Item Value Reference Range Comments IRON (BEAKER) (test xfwk=455) 49 ug/dL 40-160 TOTAL IRON BINDING CAPACITY (BEAKER) (test 236 ug/dL 250-450 fxpe=014) IRON % SATURATION (2) (BEAKER) (test nght=9915) 21 % 20-55 BASIC METABOLIC [id number] 05:41:00 Test Item Value Reference Range Comments SODIUM (BEAKER) (test 136 meq/L 136-145 wvmu=289) POTASSIUM (BEAKER) (test 3.7 meq/L 3.5-5.1 dqhy=028) CHLORIDE (BEAKER) (test 102 meq/L 98-107 fwkv=487) CO2 (BEAKER) (test 22 meq/L 22-29 xfbz=882) BLOOD UREA NITROGEN 25 mg/dL 7-21 (BEAKER) (test xsyx=283) CREATININE (BEAKER) (test 2.84 mg/dL 0.57-1.25 xtph=774) GLUCOSE RANDOM (BEAKER) 99 mg/dL 70-105 (test irfj=842) CALCIUM (BEAKER) (test 9.4 mg/dL 8.4-10.2 exnb=512) EGFR (BEAKER) (test 27 mL/min/1.73 sq m ESTIMATED GFR IS NOT nhsh=6987) ACCURATE CREATININE CLEARANCE IN PREDICTING GLOMERULAR FILTRATION RATE. ESTIMATED GFR IS NOT APPLICABLE FOR DIALYSIS PATIENTS. [id number] 05:36:00 Test Item Value Reference Range Comments PHOSPHORUS (BEAKER) (test lytt=196) 2.8 mg/dL 2.3-4.7 [id number] 05:36:00 Test Item Value Reference Range Comments MAGNESIUM (BEAKER) (test pyzn=634) 2.2 mg/dL 1.6-2.6 PTH, [id number] 05:33:00 Test Item Value Reference Range Comments PARATHYROID HORMONE INTACT (BEAKER) (test 212.3 pg/mL 8.5-72.5 zfrz=290) CBC W/PLT COUNT & AUTO [id number] 05:02:00 Test Item Value Reference Range Comments WHITE BLOOD CELL COUNT (BEAKER) (test neyg=789) 8.8 K/ L 3.5-10.5 RED BLOOD CELL COUNT (BEAKER) (test zvsh=788) 4.89 M/ L 4.63-6.08 HEMOGLOBIN (BEAKER) (test tqvi=564) 14.5 GM/DL 13.7-17.5 HEMATOCRIT (BEAKER) (test fsxt=572) 42.6 % 40.1-51.0 MEAN CORPUSCULAR VOLUME (BEAKER) (test aacc=802) 87.1 fL 79.0-92.2 MEAN CORPUSCULAR HEMOGLOBIN (BEAKER) (test 29.7 pg 25.7-32.2 dwkj=828) MEAN CORPUSCULAR HEMOGLOBIN CONC (BEAKER) (test 34.0 GM/DL 32.3-36.5 kljn=561) RED CELL DISTRIBUTION WIDTH (BEAKER) (test 13.5 % 11.6-14.4 dbxl=217) PLATELET COUNT (BEAKER) (test nwlk=417) 205 K/CU MM 150-450 MEAN PLATELET VOLUME (BEAKER) (test hncb=751) 9.9 fL 9.4-12.4 NUCLEATED RED BLOOD CELLS (BEAKER) (test 0 /100 WBC 0-0 qlph=534) NEUTROPHILS RELATIVE PERCENT (BEAKER) (test 76 % xzzh=886) LYMPHOCYTES RELATIVE PERCENT (BEAKER) (test 13 % ahux=510) MONOCYTES RELATIVE PERCENT (BEAKER) (test 9 % itpi=580) EOSINOPHILS RELATIVE PERCENT (BEAKER) (test 0 % mbbi=755) BASOPHILS RELATIVE PERCENT (BEAKER) (test 1 % jzqk=251) NEUTROPHILS ABSOLUTE COUNT (BEAKER) (test 6.68 K/ L 1.78-5.38 ilqu=135) LYMPHOCYTES ABSOLUTE COUNT (BEAKER) (test 1.17 K/ L 1.32-3.57 pzit=566) MONOCYTES ABSOLUTE COUNT (BEAKER) (test 0.82 K/ L 0.30-0.82 ybfl=758) EOSINOPHILS ABSOLUTE COUNT (BEAKER) (test 0.02 K/ L 0.04-0.54 gjxj=535) BASOPHILS ABSOLUTE COUNT (BEAKER) (test 0.05 K/ L 0.01-0.08 ofpn=065) IMMATURE GRANULOCYTES-RELATIVE PERCENT (BEAKER) 0 % 0-1 (test mqcw=0176) [id number] 06:36:00 Test Item Value Reference Range Comments PHOSPHORUS (BEAKER) (test arpr=967) 2.4 mg/dL 2.3-4.7 [id number] 06:36:00 Test Item Value Reference Range Comments MAGNESIUM (BEAKER) (test nvev=112) 1.8 mg/dL 1.6-2.6 BASIC METABOLIC [id number] 06:36:00 Test Item Value Reference Range Comments SODIUM (BEAKER) (test 137 meq/L 136-145 adet=901) POTASSIUM (BEAKER) (test 3.6 meq/L 3.5-5.1 zlvl=231) CHLORIDE (BEAKER) (test 103 meq/L 98-107 xolc=959) CO2 (BEAKER) (test 19 meq/L 22-29 ucfq=707) BLOOD UREA NITROGEN 22 mg/dL 7-21 (BEAKER) (test neib=609) CREATININE (BEAKER) (test 2.53 mg/dL 0.57-1.25 ygyx=683) GLUCOSE RANDOM (BEAKER) 148 mg/dL 70-105 (test gktm=248) CALCIUM (BEAKER) (test 9.3 mg/dL 8.4-10.2 eiao=014) EGFR (BEAKER) (test 31 mL/min/1.73 sq m ESTIMATED GFR IS NOT kczp=5795) ACCURATE CREATININE CLEARANCE IN PREDICTING GLOMERULAR FILTRATION RATE. ESTIMATED GFR IS NOT APPLICABLE FOR DIALYSIS PATIENTS. CBC W/PLT COUNT & AUTO [id number] 05:59:00 Test Item Value Reference Range Comments WHITE BLOOD CELL COUNT (BEAKER) (test onvd=743) 13.3 K/ L 3.5-10.5 RED BLOOD CELL COUNT (BEAKER) (test yxkl=347) 5.12 M/ L 4.63-6.08 HEMOGLOBIN (BEAKER) (test ujkr=395) 14.8 GM/DL 13.7-17.5 HEMATOCRIT (BEAKER) (test fhak=494) 44.7 % 40.1-51.0 MEAN CORPUSCULAR VOLUME (BEAKER) (test mifs=762) 87.3 fL 79.0-92.2 MEAN CORPUSCULAR HEMOGLOBIN (BEAKER) (test 28.9 pg 25.7-32.2 mhxs=948) MEAN CORPUSCULAR HEMOGLOBIN CONC (BEAKER) (test 33.1 GM/DL 32.3-36.5 iaot=090) RED CELL DISTRIBUTION WIDTH (BEAKER) (test 13.4 % 11.6-14.4 bxbf=400) PLATELET COUNT (BEAKER) (test wqap=173) 235 K/CU MM 150-450 MEAN PLATELET VOLUME (BEAKER) (test glip=488) 10.8 fL 9.4-12.4 NUCLEATED RED BLOOD CELLS (BEAKER) (test 0 /100 WBC 0-0 flvv=704) NEUTROPHILS RELATIVE PERCENT (BEAKER) (test 93 % kuoi=224) LYMPHOCYTES RELATIVE PERCENT (BEAKER) (test 3 % qotl=164) MONOCYTES RELATIVE PERCENT (BEAKER) (test 3 % oagb=052) EOSINOPHILS RELATIVE PERCENT (BEAKER) (test 0 % cnkw=151) BASOPHILS RELATIVE PERCENT (BEAKER) (test 0 % plck=565) NEUTROPHILS ABSOLUTE COUNT (BEAKER) (test 12.42 K/ L 1.78-5.38 ujij=736) LYMPHOCYTES ABSOLUTE COUNT (BEAKER) (test 0.39 K/ L 1.32-3.57 mspg=959) MONOCYTES ABSOLUTE COUNT (BEAKER) (test 0.43 K/ L 0.30-0.82 esmy=682) EOSINOPHILS ABSOLUTE COUNT (BEAKER) (test 0.00 K/ L 0.04-0.54 dpyx=691) BASOPHILS ABSOLUTE COUNT (BEAKER) (test 0.04 K/ L 0.01-0.08 qwie=492) IMMATURE GRANULOCYTES-RELATIVE PERCENT (BEAKER) 0 % 0-1 (test kvig=8451) [id number] 19:38:00 Test Item Value Reference Range Comments PHOSPHORUS (BEAKER) (test cbua=499) 2.8 mg/dL 2.3-4.7 [id number] 19:38:00 Test Item Value Reference Range Comments MAGNESIUM (BEAKER) (test bjkp=982) 1.7 mg/dL 1.6-2.6 BASIC METABOLIC [id number] 19:35:00 Test Item Value Reference Range Comments SODIUM (BEAKER) (test 139 meq/L 136-145 yzkl=255) POTASSIUM (BEAKER) (test 3.7 meq/L 3.5-5.1 mglc=810) CHLORIDE (BEAKER) (test 109 meq/L 98-107 yizu=424) CO2 (BEAKER) (test 20 meq/L 22-29 vwjn=919) BLOOD UREA NITROGEN 18 mg/dL 7-21 (BEAKER) (test kwjq=256) CREATININE (BEAKER) (test 2.10 mg/dL 0.57-1.25 djnq=922) GLUCOSE RANDOM (BEAKER) 148 mg/dL 70-105 (test cwfg=151) CALCIUM (BEAKER) (test 8.7 mg/dL 8.4-10.2 dsld=892) EGFR (BEAKER) (test 39 mL/min/1.73 sq m ESTIMATED GFR IS NOT jlje=9323) ACCURATE CREATININE CLEARANCE IN PREDICTING GLOMERULAR FILTRATION RATE. ESTIMATED GFR IS NOT APPLICABLE FOR DIALYSIS PATIENTS. HEMOGLOBIN AND [id number] 19:07:00 Test Item Value Reference Range Comments HEMOGLOBIN (BEAKER) (test wmiy=371) 13.7 GM/DL 13.7-17.5 HEMATOCRIT (BEAKER) (test wpah=606) 40.5 % 40.1-51.0 URINE [id number] 13:12:00 Test Item Value Reference Range Comments CULTURE (BEAKER) (test pvoz=1817) No growth BASIC METABOLIC [id number] 17:19:00 Test Item Value Reference Range Comments SODIUM (BEAKER) (test 138 meq/L 136-145 ffwv=050) POTASSIUM (BEAKER) (test 4.4 meq/L 3.5-5.1 Specimen slightly unti=600) hemolyzed CHLORIDE (BEAKER) (test 103 meq/L 98-107 coct=367) CO2 (BEAKER) (test 27 meq/L 22-29 dyji=492) BLOOD UREA NITROGEN 19 mg/dL 7-21 (BEAKER) (test aqmq=354) CREATININE (BEAKER) (test 2.11 mg/dL 0.57-1.25 Specimen slightly ujul=061) hemolyzed GLUCOSE RANDOM (BEAKER) 98 mg/dL 70-105 (test gdox=763) CALCIUM (BEAKER) (test 9.6 mg/dL 8.4-10.2 xrtf=781) EGFR (BEAKER) (test 38 mL/min/1.73 sq m ESTIMATED GFR IS NOT dqse=7089) ACCURATE CREATININE CLEARANCE IN PREDICTING GLOMERULAR FILTRATION RATE. ESTIMATED GFR IS NOT APPLICABLE FOR DIALYSIS PATIENTS. URINALYSIS W/ [id number] 17:15:00 Test Item Value Reference Range Comments COLOR (BEAKER) (test zflx=505) Yellow CLARITY (BEAKER) (test yrwy=354) Clear SPECIFIC GRAVITY UA (BEAKER) (test kssr=035) 1.013 1.001-1.035 PH UA (BEAKER) (test beuy=482) 6.0 5.0-8.0 PROTEIN UA (BEAKER) (test drxs=657) 100 mg/dL Negative GLUCOSE UA (BEAKER) (test kmtc=908) Negative Negative KETONES UA (BEAKER) (test adhw=306) Negative Negative BILIRUBIN UA (BEAKER) (test ftsb=673) Negative Negative BLOOD UA (BEAKER) (test iapp=203) Trace Negative NITRITE UA (BEAKER) (test qatc=382) Negative Negative LEUKOCYTE ESTERASE UA (BEAKER) (test yufp=206) Negative Negative UROBILINOGEN UA (BEAKER) (test nlhx=521) 0.2 mg/dL 0.2-1.0 RBC UA (BEAKER) (test hefy=766) 7 /HPF WBC UA (BEAKER) (test zmdu=178) 2 /HPF MUCUS (BEAKER) (test ynby=2843) Rare SOURCE(BEAKER) (test kpuv=7747) [id number] 17:07:00 Test Item Value Reference Range Comments PARTIAL THROMBOPLASTIN TIME (BEAKER) (test 28.1 seconds 22.5-36.0 vvlm=276) PROTHROMBIN [id number] 17:06:00 Test Item Value Reference Range Comments PROTIME (BEAKER) (test lthq=315) 13.6 seconds 11.7-14.7 INR (BEAKER) (test gbir=773) 1.0 <=5.9 RECOMMENDED COUMADIN/WARFARIN INR THERAPY RANGESSTANDARD DOSE: 2.0 - 3.0 Includes: PROPHYLAXIS forvenous thrombosis, systemic embolization; TREATMENT for venous thrombosis and/or pulmonary embolus.HIGH RISK: Target INR is 2.5-3.5 for patients with mechanical heart valves.CBC W/PLT COUNT & AUTO [id number] 16:53:00 Test Item Value Reference Range Comments WHITE BLOOD CELL COUNT (BEAKER) (test pvyd=069) 4.1 K/ L 3.5-10.5 RED BLOOD CELL COUNT (BEAKER) (test exfw=976) 4.79 M/ L 4.63-6.08 HEMOGLOBIN (BEAKER) (test mmvs=870) 13.8 GM/DL 13.7-17.5 HEMATOCRIT (BEAKER) (test ytfb=676) 42.2 % 40.1-51.0 MEAN CORPUSCULAR VOLUME (BEAKER) (test nqkf=385) 88.1 fL 79.0-92.2 MEAN CORPUSCULAR HEMOGLOBIN (BEAKER) (test 28.8 pg 25.7-32.2 nqay=032) MEAN CORPUSCULAR HEMOGLOBIN CONC (BEAKER) (test 32.7 GM/DL 32.3-36.5 qpkh=268) RED CELL DISTRIBUTION WIDTH (BEAKER) (test 13.2 % 11.6-14.4 kmtn=427) PLATELET COUNT (BEAKER) (test kuev=479) 188 K/CU MM 150-450 MEAN PLATELET VOLUME (BEAKER) (test xlxc=537) 10.3 fL 9.4-12.4 NUCLEATED RED BLOOD CELLS (BEAKER) (test 0 /100 WBC 0-0 ephb=334) NEUTROPHILS RELATIVE PERCENT (BEAKER) (test 49 % sofz=952) LYMPHOCYTES RELATIVE PERCENT (BEAKER) (test 36 % ukpv=917) MONOCYTES RELATIVE PERCENT (BEAKER) (test 12 % ofkd=077) EOSINOPHILS RELATIVE PERCENT (BEAKER) (test 2 % ytcw=288) BASOPHILS RELATIVE PERCENT (BEAKER) (test 1 % hvjt=002) NEUTROPHILS ABSOLUTE COUNT (BEAKER) (test 2.00 K/ L 1.78-5.38 prku=260) LYMPHOCYTES ABSOLUTE COUNT (BEAKER) (test 1.47 K/ L 1.32-3.57 djpz=639) MONOCYTES ABSOLUTE COUNT (BEAKER) (test 0.49 K/ L 0.30-0.82 vkif=107) EOSINOPHILS ABSOLUTE COUNT (BEAKER) (test 0.07 K/ L 0.04-0.54 vumi=754) BASOPHILS ABSOLUTE COUNT (BEAKER) (test 0.03 K/ L 0.01-0.08 boex=476) IMMATURE GRANULOCYTES-RELATIVE PERCENT (BEAKER) 0 % 0-1 (test wwue=6279) TISSUE [id number] 11:47:00Surgical Pathology Report Case: [id number] Authorizing Provider: Malcom Castaneda Collected: 03/02/2017 1029 MD Cinthia [facility] Diagnostic Imaging Received: 2016 1140 Pathologist: Jenniffer [...] Intradepartmental consultation: Dr. Koko Whitney, Dr. Umu Manzanares/[id number] , [id number], [id number] x2Left [facility]The specimen is received in fixative and [...] developed and its performance characteristics determined by [facility], Pathology Laboratory. It has not been cleared [...] qualified to perform high complexity clinical laboratory testing.[id number] 08:19:00 Test Item Value Reference Range Comments PROTIME (BEAKER) (test dvxk=858) 10.0 seconds 9.3-12.0 INR (BEAKER) (test rkww=873) 0.9 <=5.9 PARTIAL THROMBOPLASTIN TIME (BEAKER) (test 27.3 seconds 23.0-35.0 qkup=869) RECOMMENDED COUMADIN/WARFARIN INR THERAPY RANGESSTANDARD DOSE: 2.0 - 3.0 Includes: PROPHYLAXIS forvenous thrombosis, systemic embolization; TREATMENT for venous thrombosis and/or pulmonary embolus.HIGH RISK: Target INR is 2.5-3.5 for patients with mechanical heart valves.CBC W/PLT COUNT & AUTO [id number] 08:14:00 Test Item Value Reference Range Comments WHITE BLOOD CELL COUNT (BEAKER) (test hxbq=278) 4.3 K/ L 4.0-10.0 RED BLOOD CELL COUNT (BEAKER) (test bxym=343) 4.76 M/ L 4.20-5.80 HEMOGLOBIN (BEAKER) (test ixdm=630) 14.1 GM/DL 13.0-16.8 HEMATOCRIT (BEAKER) (test icvq=211) 41.7 % 40.0-50.0 MEAN CORPUSCULAR VOLUME (BEAKER) (test xaxo=824) 87.6 fL 82.0-98.0 MEAN CORPUSCULAR HEMOGLOBIN (BEAKER) (test 29.7 pg 27.0-33.0 kawm=171) MEAN CORPUSCULAR HEMOGLOBIN CONC (BEAKER) (test 33.9 GM/DL 32.0-36.0 rdnq=303) RED CELL DISTRIBUTION WIDTH (BEAKER) (test 12.9 % 10.3-14.2 gglp=815) PLATELET COUNT (BEAKER) (test aesk=271) 212 K/CU MM 150-430 MEAN PLATELET VOLUME (BEAKER) (test nkje=060) 8.0 fL 6.5-10.5 NUCLEATED RED BLOOD CELLS (BEAKER) (test 0 /100 WBC 0-0 eguo=893) NEUTROPHILS RELATIVE PERCENT (BEAKER) (test 57 % ukah=915) LYMPHOCYTES RELATIVE PERCENT (BEAKER) (test 32 % vzbr=279) MONOCYTES RELATIVE PERCENT (BEAKER) (test 9 % rzhs=283) EOSINOPHILS RELATIVE PERCENT (BEAKER) (test 2 % tvek=488) BASOPHILS RELATIVE PERCENT (BEAKER) (test 1 % ynxt=834) NEUTROPHILS ABSOLUTE COUNT (BEAKER) (test 2.50 K/ L 1.80-8.00 crcw=440) LYMPHOCYTES ABSOLUTE COUNT (BEAKER) (test 1.40 K/ L 1.48-4.50 axeq=219) MONOCYTES ABSOLUTE COUNT (BEAKER) (test 0.40 K/ L 0.00-1.30 iizf=384) EOSINOPHILS ABSOLUTE COUNT (BEAKER) (test 0.10 K/ L 0.00-0.50 daes=839) BASOPHILS ABSOLUTE COUNT (BEAKER) (test 0.00 K/ L 0.00-0.20 jzqc=061)
[2019-01-21 00:02] LABS: Absolute Lymphocytes (CBC) 1.5 K/uL (0.7-4.9); Basophils % 1.2 % (0-1.3); Eosinophils % 1.5 % (0-4.4); Hematocrit 39.7 % (39.6-49.0); Lymphocytes % 38.1 % (15.3-44.8); MPV 9.3 fL (7.6-11.3); Monocytes % 11.1 % (3.3-12.3)
[2019-01-21 00:03] LABS: Protime INR 0.99
[2019-01-21 00:21] LABS: ALT/SGPT 20 U/L (12-78); AST/SGOT 18 U/L (15-37); Albumin 3.2 g/dL (3.4-5.0); Alkaline Phosphatase 61 U/L (45-117); BUN Blood Urea Nitrogen 34 mg/dL (7-18); Bicarbonate 26 mmol/L (21-32); Bilirubin Direct < 0.1 mg/dL (0-0.2); Bilirubin Total 0.2 mg/dL (0.2-1.0); Glucose Level 111 mg/dL (74-106); Magnesium 2.2 mg/dL (1.8-2.4); NT PRO-BNP 285 pg/mL (<125); Potassium 3.8 mmol/L (3.5-5.1); Protein, Total 7.1 g/dL (6.4-8.2); Sodium Level 142 mmol/L (136-145); Troponin (Emerg Dept Use Only) < 0.02 ng/mL (0.0-0.045)
[2019-01-21 01:01] LABS: Urine Blood NEGATIVE (NEG); Urine Glucose NEGATIVE (NEG); Urine Protein 2+ (NEG); Urine pH 5.5 (5.0-7.0)
[2019-01-21 01:12] LABS: Barbiturates NEGATIVE (NEGATIVE); Benzodiazepines NEGATIVE (NEGATIVE); Cocaine NEGATIVE (NEGATIVE); METHAMPHETAM NEGATIVE (NEGATIVE); Methadone NEGATIVE (NEGATIVE); Opiates NEGATIVE (NEGATIVE); Phencyclidine NEGATIVE (NEGATIVE); THC Cannibis NEGATIVE (NEGATIVE)
--- NOTE | 2019-01-21 01:40 | ER ---
Nurse's Notes [facility] Name: Aravind Low Age: 68 yrs Sex: Male : 1950 Arrival Date: 01/20/2019 Time: 22:39 Bed 16 Private MD: Diagnosis: Dizziness and giddiness Presentation: 01/20 22:50 Presenting complaint: states: pt with increased fatigue, generalized weakness, ak1 "balance off" since 01/14/19. pt smiling and laughing during triage, family stated unusually behavior. pt seen at [facility] in [facility] 01/14/19 increased Allopurinol from 100mg to 200mg daily. pt with follow appointment on this Sunday. Transition of care: patient was not received from another setting of care. Onset of symptoms was January 14, 2019. Risk Assessment: Do you want to hurt yourself or someone else? Patient reports no desire to harm self or others. Initial Sepsis Screen: Does the patient meet any 2 criteria? No. Patient's initial sepsis screen is negative. Does the patient have a suspected source of infection? No. Patient's initial sepsis screen is negative. Care prior to arrival: None. 22:50 Method Of Arrival: Wheelchair ak1 22:50 Acuity: ANTONIO 3 ak1 Triage Assessment: 22:56 General: Appears in no apparent distress. comfortable, Behavior is calm, cooperative, ak1 giddy, smiling and giggling. . Pain: Denies pain. EENT: No signs and/or symptoms were reported regarding the EENT system. Historical: - Allergies: 22:56 No Known Allergies; ak1 - Home Meds: 22:56 clonidine HCl 0.3 mg Oral tab 1 tab 2 times per day [Active]; nifedipine 30 mg Oral ak1 TbER 1 tab once daily [Active]; Vitamin D Oral [Active]; allopurinol 100 mg Oral tab 1 tab 2 times per day [Active]; - PMHx: 22:56 Hypertension; ak1 - PSHx: 22:56 left kidney removed; ak1 - Immunization history:: Adult Immunizations unknown. - Social history:: Smoking status: Patient uses tobacco products, smokes one-half pack cigarettes per day. - Ebola Screening: : No symptoms or risks identified at this time. - History obtained from: spouse, daughter. Screenin:57 Abuse screen: Denies threats or abuse. Denies injuries from another. Nutritional ak1 screening: No deficits noted. Tuberculosis screening: No symptoms or risk factors identified. Fall Risk None identified. Assessment: 23:09 General: Appears in no apparent distress. comfortable, Behavior is calm, cooperative. jd3 Pain: Denies pain. Neuro: Level of Consciousness is awake, alert, obeys commands, confused, Oriented to person, place, Band Nailer are equal bilaterally Moves all extremities. Weakness in bilateral Gait is unsteady, Speech is normal, Facial symmetry appears normal, Pupils are PERRLA, Intact. Cardiovascular: Capillary refill < 3 seconds Patient's skin is warm and dry. Respiratory: Airway is patent Respiratory effort is even, unlabored, Respiratory pattern is regular, symmetrical. GI: No signs and/or symptoms were reported involving the gastrointestinal system. : No signs and/or symptoms were reported regarding the genitourinary system. EENT: No signs and/or symptoms were reported regarding the EENT system. Derm: Skin is intact, Skin is dry, Skin is normal, Skin temperature is warm. Musculoskeletal: Circulation, motion, and sensation intact. Range of motion: intact in all extremities. 01/21 00:08 Reassessment: Patient appears in no apparent distress at this time. No changes from jd3 previously documented assessment. Patient and/or family updated on plan of care and expected duration. Pain level reassessed. awaiting results. Patient denies pain at this time. 01:08 Reassessment: Patient appears in no apparent distress at this time. No changes from jd3 previously documented assessment. Patient and/or family updated on plan of care and expected duration. Pain level reassessed. awaiting results Patient denies pain at this time. 01:33 Reassessment: Patient appears in no apparent distress at this time. Patient and/or jd3 family updated on plan of care and expected duration. Pain level reassessed. provider at bedside. pt walking with slight limp, steady gait with no balance problems. provider discussing plan of care with patient. Vital Signs: 01/20 22:50 BP 165 / 99; Pulse 53; Resp 16; Temp 98.1; Pulse Ox 100% on R/A; Weight 68.04 kg (R); ak1 Height 5 ft. 4 in. (162.56 cm) (R); Pain 0/10; 01/21 00:09 BP 156 / 81; Pulse 45; Resp 15 S; Pulse Ox 100% on R/A; Pain 0/10; jd3 01:06 BP 168 / 82; Pulse 45; Resp 15 S; Pulse Ox 100% on R/A; Pain 0/10; jd3 01/20 22:50 Body Mass Index 25.75 (68.04 kg, 162.56 cm) ak1 NIH Stroke Scale Scores: 01:35 NIHSS Score: 0 jr8 ED Course: 01/20 22:39 Patient arrived in ED. ds1 22:50 Arm band placed on Patient placed in an exam room, on a stretcher, on pulse oximetry, ak1 Patient notified of wait time. 22:52 Abdullahi Magana PA is PHCP. jr8 22:52 Ovidio Díaz MD is Attending Physician. jr8 22:54 Triage completed. ak1 22:57 Patient has correct armband on for positive identification. Bed in low position. Call ak1 light in reach. Side rails up X 1. Side rails up X2. Adult w/ patient. Pulse ox on. NIBP on. 23:04 Edward Zurita, RN is Primary Nurse. jd3 23:33 Inserted saline lock: 20 gauge in left antecubital area, using aseptic technique. Blood jd3 collected. placed by Kat HOYT. 23:54 XRAY Chest (1 view) In Process Unspecified. EDMS 23:54 CT Head Brain wo Cont In Process Unspecified. EDMS 07 01:46 No provider procedures requiring assistance completed. IV discontinued, intact, jd3 bleeding controlled, No redness/swelling at site. Pressure dressing applied. Administered Medications: No medications were administered Outcome: 01:39 Discharge ordered by . jr8 01:47 Discharged to home ambulatory, with family. jd3 01:47 Condition: stable 01:47 Discharge instructions given to patient, family, Instructed on discharge instructions, follow up and referral plans. Demonstrated understanding of instructions, follow-up care. 01:48 Patient left the ED. jd3 NIH Stroke Scale - NIH Stroke Score Date: 01/21/2019 Time: 01:35 Total Score = 0 1a. Level of Consciousness (LOC) - 0(Alert) 1b. Level of Consciousness (LOC) (Year \\T\\ Age) - 0(Both) 1c. LOC Commands (Open \\T\\ Closes Eyes/Tipping Machine Operator Automatic) - 0(Both) 2. Best Gaze (Lateral Gaze Paresis) - 0(Normal) 3. Visual Field Loss - 0(No visual loss) 4. Facial Palsy - 0(Normal) 5a. Left Arm: Motor (10-second hold) - 0(No drift) 5b. Right Arm: Motor (10-second hold) - 0(No drift) 6a. Left Leg: Motor (5-second hold - always test supine) - 0(No drift) 6b. Right Leg: Motor (5-second hold - always test supine) - 0(No drift) 7. Limb Ataxia (finger/nose \\T\\ heel/montero - test with eyes open) - 0(Absent) 8. Sensory Loss (pinprick arms/legs/face) - 0(Normal) 9. Best Language: Aphasia (description/naming/reading) - 0(No aphasia) 10. Dysarthria (speech clarity - read or repeat words) - 0(Normal) 11. Extinction and Inattention (visual/tactile/auditory/spatial/personal) - 0(No abnormality) Initials: jr8 Signatures: Dispatcher [employer] [facility] Afua Echavarria ds1 Abdullahi Magana PA PA jr8 Kat Walters RN RN ak1 Edward Zurita RN RN jd3
--- NOTE | 2019-01-21 01:40 | EDPHYS ---
Physician Documentation [facility] Name: Aravind Low Age: 68 yrs Sex: Male : 1950 Arrival Date: 01/20/2019 Time: 22:39 Bed 16 Private MD: ED Physician Ovidio Díaz HPI: 01/20 23:45 This 68 yrs old Black Male presents to ER via Wheelchair with complaints of Altered jr8 Mental Status, Blurred Vision. 23:45 The patient presents with decreased mental status, disorientation, to time. Onset: The jr8 symptoms/episode began/occurred acutely, 6 day(s) ago. Possible causes: unknown. Associated signs and symptoms: Pertinent positives: blurred vision, Pertinent negatives: agitation, ataxia, chest pain, dizziness, headache, numbness, shortness of breath, vomiting. Current symptoms: In the emergency department the patient's symptoms have improved, mildly. The patient has not experienced similar symptoms in the past. The patient has not recently seen a physician. Family reports patient was seen by PCP 01/13 and was told to increase BP medication to BID. Family then reports disorientation and "equilibrium off" since 01/14. Family reports patient has c/o blurred vision but patient denies visual disturbances at this time. Historical: - Allergies: 22:56 No Known Allergies; ak1 - Home Meds: 22:56 clonidine HCl 0.3 mg Oral tab 1 tab 2 times per day [Active]; nifedipine 30 mg Oral ak1 TbER 1 tab once daily [Active]; Vitamin D Oral [Active]; allopurinol 100 mg Oral tab 1 tab 2 times per day [Active]; - PMHx: 22:56 Hypertension; ak1 - PSHx: 22:56 left kidney removed; ak1 - Immunization history:: Adult Immunizations unknown. - Social history:: Smoking status: Patient uses tobacco products, smokes one-half pack cigarettes per day. - Ebola Screening: : No symptoms or risks identified at this time. - History obtained from: spouse, daughter. ROS: 23:45 Constitutional: Negative for fever, chills, and weight loss, Eyes: Negative for injury, jr8 pain, redness, and discharge, ENT: Negative for injury, pain, and discharge, Neck: Negative for injury, pain, and swelling, Cardiovascular: Negative for chest pain, palpitations, and edema, Respiratory: Negative for shortness of breath, cough, wheezing, and pleuritic chest pain, Abdomen/GI: Negative for abdominal pain, nausea, vomiting, diarrhea, and constipation, Back: Negative for injury and pain, MS/Extremity: Negative for injury and deformity, Skin: Negative for injury, rash, and discoloration. 23:45 Neuro: Positive for altered mental status, gait disturbance, Negative for headache, hearing loss, loss of consciousness, numbness, seizure activity, speech changes, syncope, tremor, weakness. Exam: 23:45 Constitutional: This is a well developed, well nourished patient who is awake, alert, jr8 and in no acute distress. Head/Face: Normocephalic, atraumatic. ENT: Nares patent. No nasal discharge, no septal abnormalities noted. Tympanic membranes are normal and external auditory canals are clear. Oropharynx with no redness, swelling, or masses, exudates, or evidence of obstruction, uvula midline. Mucous membranes moist. Neck: Trachea midline, no thyromegaly or masses palpated, and no cervical lymphadenopathy. Supple, full range of motion without nuchal rigidity, or vertebral point tenderness. No Meningismus. Chest/axilla: Normal chest wall appearance and motion. Nontender with no deformity. No lesions are appreciated. Cardiovascular: Regular rate and rhythm with a normal S1 and S2. No gallops, murmurs, or rubs. Normal PMI, no JVD. No pulse deficits. Respiratory: Lungs have equal breath sounds bilaterally, clear to auscultation and percussion. No rales, rhonchi or wheezes noted. No increased work of breathing, no retractions or nasal flaring. Abdomen/GI: Soft, non-tender, with normal bowel sounds. No distension or tympany. No guarding or rebound. No evidence of tenderness throughout. Skin: Warm, dry with normal turgor. Normal color with no rashes, no lesions, and no evidence of cellulitis. MS/ Extremity: Pulses equal, no cyanosis. Neurovascular intact. Full, normal range of motion. 23:45 Eyes: Pupils: pinpoint, bilaterally, Extraocular movements: intact throughout, Conjunctiva: normal, Sclera: no appreciated abnormality, Nystagmus: is not appreciated. 23:45 Neuro: Orientation: to person, place, Not oriented to time, situation, Mentation: lucid, able to follow commands, Cranial nerves: CN II- XII are normal as tested, extraocular movements are intact, Motor: moves all fours, Sensation: no obvious gross deficits. Vital Signs: 22:50 BP 165 / 99; Pulse 53; Resp 16; Temp 98.1; Pulse Ox 100% on R/A; Weight 68.04 kg (R); ak1 Height 5 ft. 4 in. (162.56 cm) (R); Pain 0/10; 01/21 00:09 BP 156 / 81; Pulse 45; Resp 15 S; Pulse Ox 100% on R/A; Pain 0/10; jd3 01:06 BP 168 / 82; Pulse 45; Resp 15 S; Pulse Ox 100% on R/A; Pain 0/10; jd3 01/20 22:50 Body Mass Index 25.75 (68.04 kg, 162.56 cm) ak1 NIH Stroke Scale Scores: 01:35 NIHSS Score: 0 jr8 MDM: 01/20 22:52 Patient medically screened. jr8 23:45 Data reviewed: vital signs, nurses notes. jr8 01/21 01:35 Data reviewed: lab test result(s), EKG, radiologic studies, CT scan, plain films. Data jr8 interpreted: Pulse oximetry: on room air is 100 %. Interpretation: normal. Counseling: I had a detailed discussion with the patient and/or guardian regarding: the historical points, exam findings, and any diagnostic results supporting the discharge/admit diagnosis, lab results, radiology results, the need for outpatient follow up, a family practitioner, to return to the emergency department if symptoms worsen or persist or if there are any questions or concerns that arise at home. 01:35 ED course: Patient reassessed and had him walk and another stroke scale performed. jr8 Other then slight gate abnormality. No other acute findings noted. Patient stated that he always has a gate abnormality due to previous leg problem. Stated that he feels normal and wants to go home. No other acute lab findings noted as well. Will d/c home to f/u with PCP. If worse or something were to change to come back. Family and patient good with this . 01/20 23:21 Order name: Basic Metabolic Panel; Complete Time: 00:23 jr8 01/20 23:21 Order name: CBC with Diff; Complete Time: 00:10 01/20 23:21 Order name: LFT's; Complete Time: 00:23 01/20 23:21 Order name: Magnesium; Complete Time: 00:23 01/20 23:21 Order name: NT PRO-BNP; Complete Time: 00:23 01/20 23:21 Order name: PT-INR; Complete Time: 00:10 01/20 23:21 Order name: Troponin (emerg Dept Use Only); Complete Time: 00:23 01/20 23:21 Order name: XRAY Chest (1 view) 01/20 23:21 Order name: EKG; Complete Time: 23:23 01/20 23:21 Order name: Cardiac monitoring; Complete Time: 00:03 01/20 23:21 Order name: EKG - Nurse/Tech; Complete Time: 23:35 01/20 23:21 Order name: CT Head Brain wo Cont 01/20 23:34 Order name: UDS; Complete Time: 01:25 01/21 00:39 Order name: Urine Dipstick--Ancillary (enter results); Complete Time: 01:09 nj 01/20 23:21 Order name: IV Saline Lock; Complete Time: 23:35 01/20 23:21 Order name: Labs collected and sent; Complete Time: 23:35 01/20 23:21 Order name: O2 Per Protocol; Complete Time: 23:22 01/20 23:21 Order name: O2 Sat Monitoring; Complete Time: 23:22 EC/08 23:45 Rate is 53 beats/min. Rhythm is regular. QRS [place] is Normal. MT interval is prolonged jr8 at 208 msec. QRS interval is normal at 100 msec. QT interval is normal at 424 msec. Clinical impression: Sinus bradycardia. Administered Medications: No medications were administered Disposition: 01/21 02:07 Co-signature as Attending Physician, Ovidio Díaz MD. rn Disposition: 01/21/19 01:39 Discharged to Home. Impression: Dizziness and giddiness. - Condition is Stable. - Discharge Instructions: Dizziness. - Medication Reconciliation Form, Thank You Letter, Antibiotic Education, Prescription Opioid Use form. - Follow up: Private Physician; When: 2 - 3 days; Reason: Recheck today's complaints, Continuance of care, Re-evaluation by your physician. - Problem is new. - Symptoms have improved. NIH Stroke Scale - NIH Stroke Score Date: 01/21/2019 Time: 01:35 Total Score = 0 1a. Level of Consciousness (LOC) - 0(Alert) 1b. Level of Consciousness (LOC) (Year \\T\\ Age) - 0(Both) 1c. LOC Commands (Open \\T\\ Closes Eyes/Box Toe Flanger Stitchdowns) - 0(Both) 2. Best Gaze (Lateral Gaze Paresis) - 0(Normal) 3. Visual Field Loss - 0(No visual loss) 4. Facial Palsy - 0(Normal) 5a. Left Arm: Motor (10-second hold) - 0(No drift) 5b. Right Arm: Motor (10-second hold) - 0(No drift) 6a. Left Leg: Motor (5-second hold - always test supine) - 0(No drift) 6b. Right Leg: Motor (5-second hold - always test supine) - 0(No drift) 7. Limb Ataxia (finger/nose \\T\\ heel/montero - test with eyes open) - 0(Absent) 8. Sensory Loss (pinprick arms/legs/face) - 0(Normal) 9. Best Language: Aphasia (description/naming/reading) - 0(No aphasia) 10. Dysarthria (speech clarity - read or repeat words) - 0(Normal) 11. Extinction and Inattention (visual/tactile/auditory/spatial/personal) - 0(No abnormality) Initials: shagufta Signatures: Dispatcher [employer] EDMS Ovidio Díaz MD MD rn Roszak, Josh, PA PA jr8 Kat Walters RN RN ak1 Edward Zurita RN RN jd3 Corrections: (The following items were deleted from the chart) 01:48 01:39 01/21/2019 01:39 Discharged to Home. Impression: Dizziness and giddiness. jd3 Condition is Stable. Forms are Medication Reconciliation Form, Thank You Letter, Antibiotic Education, Prescription Opioid Use. Follow up: Private Physician; When: 2 - 3 days; Reason: Recheck today's complaints, Continuance of care, Re-evaluation by your physician. Problem is new. Symptoms have improved. jrFidelia
--- NOTE | 2019-01-21 08:07 | RAD REPORT ---
EXAM DESCRIPTION: Francisca Single View01/20/2019 11:53 pm CLINICAL HISTORY: Chest pain COMPARISON: 2012 : The lungs appear clear of acute infiltrate. The heart is mildly to moderately enlarged IMPRESSION: No acute abnormalities displayed
--- NOTE | 2019-01-21 08:12 | EKG ---
Test Date: 2019-01-20 Test Time: 23:28:20 Supervisor Line Department: [facility] MEASUREMENT RESULTS: Intervals: Rate: 53 [place]: 208 QRSD: 100 QT: 452 QTc: 424 [place]: P: 29 [place]: 208 QRS: 20 T: 8 INTERPRETIVE STATEMENTS: Sinus bradycardia Possible Left atrial enlargement Borderline ECG Compared to ECG 12/08/2005 12:32:54 Left ventricular hypertrophy no longer present Early repolarization no longer present Electronically Signed On 01-21-19 08:11:24 CDT by Chito Sims
--- NOTE | 2019-01-21 10:33 | RAD REPORT ---
EXAM DESCRIPTION: CT - Head Brain Wo Cont - 01/21/2019 2:43 am CLINICAL HISTORY: Ams COMPARISON: None. TECHNIQUE: CT HEAD WITHOUT IV CONTRAST on 01/20/2019 11:21 PM CDT This exam was performed according to our departmental dose-optimization program, which includes autom ated exposure control, adjustment of the mA and/or kV according to patient size and/or use of iterati ve reconstruction technique. FINDINGS: There is no acute hemorrhage, mass effect or midline shift. There is a focal encephalomala kya in the left cerebellum. There is no hydrocephalus. There is no significant volume loss for age. T here are moderate confluent hypodensities within the periventricular and subcortical white matter, co nsistent with microangiopathic ischemic changes. The calvarium is intact. Orbits and globes are unremarkable. The paranasal sinuses are clear. Mastoid air cells are clear. IMPRESSION: No acute intracranial findings. Electronically signed by: David Thomas MD 01/20/2019 11:58 PM CDT Due to temporary technical issues with the PACS/Fluency reporting system, reports are being signed by the in house radiologist as a courtesy to ensure prompt reporting. The interpreting radiologist is f ully responsible for the content of the report.
== END 2019-01-21 01:48 | disposition home or self-care (01) ==
LOC: ER 22:32
DX: R42 Dizziness and giddiness (principal); I10 Essential (primary) hypertension; F17.210 Nicotine dependence, cigarettes, uncomplicated
CPT/HCPCS: 36415; 70450; 71045; 80048; 80076; 80307; 81003; 83735; 83880; 84484; 85025; 85610; 93005; 99284

== ENCOUNTER 2019-02-04 19:35 | Observation (INO) | payer OTHER ==
--- OUTSIDE RECORDS SUMMARY | 2019-02-04 19:36 | XMS REPORT | Clinical Summary ---
:1950 Author Organization [facility] Address [address] [place] [address] Support Name Relationship Address Phone Lilia Low Unavailable [address] [place] [address] Care Team Providers Name Role Phone Wendy [...] Not on file Results Not on fileafter 02/03/2018 Insurance Payer Benefit Plan / Group Subscriber ID Type Phone Address MEDICARE MEDICARE A B xxxxxxxxxx Medicare Advance Directives For more information, please contact:[address] [phone] Code Status Date Activated Date Inactivated Comments Full Code 10/09/2017 9:14 PM 10/14/2017 5:27 AM This code status was determined by: Patient Full Code 03/02/2017 12:28 PM 03/02/2017 10:49 PM This code status was determined by: Patient
--- OUTSIDE RECORDS SUMMARY | 2019-02-04 19:37 | XMS REPORT ---
:1950 [facility] [address] [place] [address] Care Team Providers Name Role Phone CITLALY MIMS Unavailable Unavailable VALENTECAROLINE MALCOM RENANOLAN Unavailable Unavailable Problems This patient has no known problems. Allergies, Adverse Reactions, Alerts This patient has no known allergies or adverse reactions. Medications This patient has no known medications. 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 The assessment of nucleolar prominence as a single parameter is noted to correlate better with outcome than other nuclear parameters (size, shape) to assign a [place] grade. ("Urologic Surgical Pathology," Janelle, third edition, 2014). Nuclear grade assigned in Synoptic portion of this report (tw, can include).This patient's previous biopsy from [facility], from 03/02/2017 ([id number]) shows a core biopsy with features similar [...] Additional Pathological Findings: Cyst(s): Simple cortical cyst 61492 X 2, 30907, 69692 x6Left renal massA. Retroperitoneal lymph node. B. [...] positive; AE1/AE3-positive; RICHARD and CK 7-focally positive; QY65-wpkcnocg CD10 equivocal, possibly focally positiveThe immunohistochemistry test was developed and its performance characteristics determined by [facility], Pathology Laboratory. It has not been cleared [...] Comments SODIUM (BEAKER) (test 135 meq/L 136-145 tlhe=215) POTASSIUM (BEAKER) (test 3.6 meq/L 3.5-5.1 nmky=594) CHLORIDE (BEAKER) (test 98 meq/L 98-107 dhls=130) CO2 (BEAKER) (test umkv=851) 22 meq/L 22-29 BLOOD UREA NITROGEN (BEAKER) 45 mg/dL 7-21 (test klpb=754) CREATININE (BEAKER) (test 3.68 mg/dL 0.57-1.25 eyuj=834) GLUCOSE RANDOM (BEAKER) 157 mg/dL 70-105 (test wfsh=662) CALCIUM (BEAKER) (test 9.5 mg/dL 8.4-10.2 jkhu=240) EGFR (BEAKER) (test 20 mL/min/1.73 sq m ESTIMATED GFR IS NOT rsqk=3857) ACCURATE CREATININE CLEARANCE IN PREDICTING GLOMERULAR FILTRATION RATE. ESTIMATED GFR IS NOT APPLICABLE FOR DIALYSIS PATIENTS. CBC W/PLT COUNT & AUTO [id number] 12:44:00 Test Item Value Reference Range Comments WHITE BLOOD CELL COUNT (BEAKER) (test xzkq=542) 5.0 K/ L 3.5-10.5 RED BLOOD CELL COUNT (BEAKER) (test qjnc=589) 4.98 M/ L 4.63-6.08 HEMOGLOBIN (BEAKER) (test hlmt=534) 14.6 GM/DL 13.7-17.5 HEMATOCRIT (BEAKER) (test fqrf=040) 43.0 % 40.1-51.0 MEAN CORPUSCULAR VOLUME (BEAKER) (test wojp=629) 86.3 fL 79.0-92.2 MEAN CORPUSCULAR HEMOGLOBIN (BEAKER) (test 29.3 pg 25.7-32.2 zctf=416) MEAN CORPUSCULAR HEMOGLOBIN CONC (BEAKER) (test 34.0 GM/DL 32.3-36.5 ikfj=036) RED CELL DISTRIBUTION WIDTH (BEAKER) (test 13.0 % 11.6-14.4 zdvi=793) PLATELET COUNT (BEAKER) (test wfpx=652) 252 K/CU MM 150-450 MEAN PLATELET VOLUME (BEAKER) (test pqaf=571) 9.7 fL 9.4-12.4 NUCLEATED RED BLOOD CELLS (BEAKER) (test 0 /100 WBC 0-0 goky=895) NEUTROPHILS RELATIVE PERCENT (BEAKER) (test 71 % srdu=460) LYMPHOCYTES RELATIVE PERCENT (BEAKER) (test 18 % gznl=507) MONOCYTES RELATIVE PERCENT (BEAKER) (test 9 % vqat=395) EOSINOPHILS RELATIVE PERCENT (BEAKER) (test 1 % qnuf=963) BASOPHILS RELATIVE PERCENT (BEAKER) (test 1 % wvok=605) NEUTROPHILS ABSOLUTE COUNT (BEAKER) (test 3.52 K/ L 1.78-5.38 zsgt=245) LYMPHOCYTES ABSOLUTE COUNT (BEAKER) (test 0.87 K/ L 1.32-3.57 lwvl=375) MONOCYTES ABSOLUTE COUNT (BEAKER) (test 0.46 K/ L 0.30-0.82 vqfy=667) EOSINOPHILS ABSOLUTE COUNT (BEAKER) (test 0.05 K/ L 0.04-0.54 wetv=398) BASOPHILS ABSOLUTE COUNT (BEAKER) (test 0.05 K/ L 0.01-0.08 wiia=785) IMMATURE GRANULOCYTES-RELATIVE PERCENT (BEAKER) 0 % 0-1 (test jyfe=8628) BASIC METABOLIC [id number] 15:02:00 Test Item Value Reference Range Comments SODIUM (BEAKER) (test 132 meq/L 136-145 xspb=703) POTASSIUM (BEAKER) (test 3.8 meq/L 3.5-5.1 ysot=277) CHLORIDE (BEAKER) (test 97 meq/L 98-107 isnk=285) CO2 (BEAKER) (test 24 meq/L 22-29 wlgd=020) BLOOD UREA NITROGEN 42 mg/dL 7-21 (BEAKER) (test bhgj=863) CREATININE (BEAKER) (test 3.78 mg/dL 0.57-1.25 gxzv=958) GLUCOSE RANDOM (BEAKER) 108 mg/dL 70-105 (test fryy=808) CALCIUM (BEAKER) (test 9.4 mg/dL 8.4-10.2 khvo=134) EGFR (BEAKER) (test 20 mL/min/1.73 sq m ESTIMATED GFR IS NOT avkj=9037) ACCURATE CREATININE CLEARANCE IN PREDICTING GLOMERULAR FILTRATION RATE. ESTIMATED GFR IS NOT APPLICABLE FOR DIALYSIS PATIENTS. Please draw at 2:00pmBASI METABOLIC [id number] 06:14:00 Test Item Value Reference Range Comments SODIUM (BEAKER) (test 133 meq/L 136-145 egxq=963) POTASSIUM (BEAKER) (test 3.8 meq/L 3.5-5.1 rlbl=021) CHLORIDE (BEAKER) (test 100 meq/L 98-107 ljnd=358) CO2 (BEAKER) (test 23 meq/L 22-29 tkmj=094) BLOOD UREA NITROGEN 33 mg/dL 7-21 (BEAKER) (test klvf=126) CREATININE (BEAKER) (test 3.27 mg/dL 0.57-1.25 qswb=598) GLUCOSE RANDOM (BEAKER) 87 mg/dL 70-105 (test zmia=365) CALCIUM (BEAKER) (test 9.0 mg/dL 8.4-10.2 sest=348) EGFR (BEAKER) (test 23 mL/min/1.73 sq m ESTIMATED GFR IS NOT tujs=4587) ACCURATE CREATININE CLEARANCE IN PREDICTING GLOMERULAR FILTRATION RATE. ESTIMATED GFR IS NOT APPLICABLE FOR DIALYSIS PATIENTS. [id number] 06:03:00 Test Item Value Reference Range Comments PHOSPHORUS (BEAKER) (test zgsk=384) 2.7 mg/dL 2.3-4.7 [id number] 06:03:00 Test Item Value Reference Range Comments MAGNESIUM (BEAKER) (test lcuy=873) 2.1 mg/dL 1.6-2.6 CBC W/PLT COUNT & AUTO [id number] 05:16:00 Test Item Value Reference Range Comments WHITE BLOOD CELL COUNT (BEAKER) (test rhrg=629) 6.7 K/ L 3.5-10.5 RED BLOOD CELL COUNT (BEAKER) (test bbxj=209) 4.59 M/ L 4.63-6.08 HEMOGLOBIN (BEAKER) (test kewr=301) 13.6 GM/DL 13.7-17.5 HEMATOCRIT (BEAKER) (test ummr=593) 39.8 % 40.1-51.0 MEAN CORPUSCULAR VOLUME (BEAKER) (test rthp=603) 86.7 fL 79.0-92.2 MEAN CORPUSCULAR HEMOGLOBIN (BEAKER) (test 29.6 pg 25.7-32.2 twns=480) MEAN CORPUSCULAR HEMOGLOBIN CONC (BEAKER) (test 34.2 GM/DL 32.3-36.5 deii=117) RED CELL DISTRIBUTION WIDTH (BEAKER) (test 13.2 % 11.6-14.4 edlv=214) PLATELET COUNT (BEAKER) (test aapo=002) 209 K/CU MM 150-450 MEAN PLATELET VOLUME (BEAKER) (test blll=691) 10.2 fL 9.4-12.4 NUCLEATED RED BLOOD CELLS (BEAKER) (test 0 /100 WBC 0-0 xqyv=114) NEUTROPHILS RELATIVE PERCENT (BEAKER) (test 71 % oodq=096) LYMPHOCYTES RELATIVE PERCENT (BEAKER) (test 16 % twuo=024) MONOCYTES RELATIVE PERCENT (BEAKER) (test 12 % vuyh=621) EOSINOPHILS RELATIVE PERCENT (BEAKER) (test 1 % kxhw=887) BASOPHILS RELATIVE PERCENT (BEAKER) (test 0 % segx=710) NEUTROPHILS ABSOLUTE COUNT (BEAKER) (test 4.75 K/ L 1.78-5.38 lzen=509) LYMPHOCYTES ABSOLUTE COUNT (BEAKER) (test 1.07 K/ L 1.32-3.57 huvf=412) MONOCYTES ABSOLUTE COUNT (BEAKER) (test 0.77 K/ L 0.30-0.82 aimf=256) EOSINOPHILS ABSOLUTE COUNT (BEAKER) (test 0.06 K/ L 0.04-0.54 omgk=653) BASOPHILS ABSOLUTE COUNT (BEAKER) (test 0.03 K/ L 0.01-0.08 sbks=213) IMMATURE GRANULOCYTES-RELATIVE PERCENT (BEAKER) 0 % 0-1 (test evqu=4047) IRON, TIBC, % SAT. (WITHOUT FERRITIN)2017-10-11 06:55:00 Test Item Value Reference Range Comments IRON (BEAKER) (test nlxu=739) 49 ug/dL 40-160 TOTAL IRON BINDING CAPACITY (BEAKER) (test 236 ug/dL 250-450 kjtw=430) IRON % SATURATION (2) (BEAKER) (test bdby=0915) 21 % 20-55 BASIC METABOLIC [id number] 05:41:00 Test Item Value Reference Range Comments SODIUM (BEAKER) (test 136 meq/L 136-145 whgg=849) POTASSIUM (BEAKER) (test 3.7 meq/L 3.5-5.1 ithw=875) CHLORIDE (BEAKER) (test 102 meq/L 98-107 qakz=541) CO2 (BEAKER) (test 22 meq/L 22-29 qjmx=730) BLOOD UREA NITROGEN 25 mg/dL 7-21 (BEAKER) (test ipjq=028) CREATININE (BEAKER) (test 2.84 mg/dL 0.57-1.25 hpaj=711) GLUCOSE RANDOM (BEAKER) 99 mg/dL 70-105 (test deco=621) CALCIUM (BEAKER) (test 9.4 mg/dL 8.4-10.2 eigo=758) EGFR (BEAKER) (test 27 mL/min/1.73 sq m ESTIMATED GFR IS NOT axas=4825) ACCURATE CREATININE CLEARANCE IN PREDICTING GLOMERULAR FILTRATION RATE. ESTIMATED GFR IS NOT APPLICABLE FOR DIALYSIS PATIENTS. [id number] 05:36:00 Test Item Value Reference Range Comments PHOSPHORUS (BEAKER) (test mygs=169) 2.8 mg/dL 2.3-4.7 [id number] 05:36:00 Test Item Value Reference Range Comments MAGNESIUM (BEAKER) (test kzmn=204) 2.2 mg/dL 1.6-2.6 PTH, [id number] 05:33:00 Test Item Value Reference Range Comments PARATHYROID HORMONE INTACT (BEAKER) (test 212.3 pg/mL 8.5-72.5 kwck=752) CBC W/PLT COUNT & AUTO [id number] 05:02:00 Test Item Value Reference Range Comments WHITE BLOOD CELL COUNT (BEAKER) (test uxkk=654) 8.8 K/ L 3.5-10.5 RED BLOOD CELL COUNT (BEAKER) (test rgam=073) 4.89 M/ L 4.63-6.08 HEMOGLOBIN (BEAKER) (test ezcc=186) 14.5 GM/DL 13.7-17.5 HEMATOCRIT (BEAKER) (test jwxa=555) 42.6 % 40.1-51.0 MEAN CORPUSCULAR VOLUME (BEAKER) (test uial=871) 87.1 fL 79.0-92.2 MEAN CORPUSCULAR HEMOGLOBIN (BEAKER) (test 29.7 pg 25.7-32.2 drgz=817) MEAN CORPUSCULAR HEMOGLOBIN CONC (BEAKER) (test 34.0 GM/DL 32.3-36.5 xtsx=670) RED CELL DISTRIBUTION WIDTH (BEAKER) (test 13.5 % 11.6-14.4 hnns=438) PLATELET COUNT (BEAKER) (test pnly=602) 205 K/CU MM 150-450 MEAN PLATELET VOLUME (BEAKER) (test etft=713) 9.9 fL 9.4-12.4 NUCLEATED RED BLOOD CELLS (BEAKER) (test 0 /100 WBC 0-0 wzmg=931) NEUTROPHILS RELATIVE PERCENT (BEAKER) (test 76 % hlvd=921) LYMPHOCYTES RELATIVE PERCENT (BEAKER) (test 13 % pnse=683) MONOCYTES RELATIVE PERCENT (BEAKER) (test 9 % zmmq=852) EOSINOPHILS RELATIVE PERCENT (BEAKER) (test 0 % pjps=131) BASOPHILS RELATIVE PERCENT (BEAKER) (test 1 % pgpo=296) NEUTROPHILS ABSOLUTE COUNT (BEAKER) (test 6.68 K/ L 1.78-5.38 cipr=496) LYMPHOCYTES ABSOLUTE COUNT (BEAKER) (test 1.17 K/ L 1.32-3.57 qspd=935) MONOCYTES ABSOLUTE COUNT (BEAKER) (test 0.82 K/ L 0.30-0.82 ohsi=834) EOSINOPHILS ABSOLUTE COUNT (BEAKER) (test 0.02 K/ L 0.04-0.54 srlz=300) BASOPHILS ABSOLUTE COUNT (BEAKER) (test 0.05 K/ L 0.01-0.08 rskw=940) IMMATURE GRANULOCYTES-RELATIVE PERCENT (BEAKER) 0 % 0-1 (test wssn=6529) [id number] 06:36:00 Test Item Value Reference Range Comments PHOSPHORUS (BEAKER) (test mpqf=197) 2.4 mg/dL 2.3-4.7 [id number] 06:36:00 Test Item Value Reference Range Comments MAGNESIUM (BEAKER) (test vqqt=800) 1.8 mg/dL 1.6-2.6 BASIC METABOLIC [id number] 06:36:00 Test Item Value Reference Range Comments SODIUM (BEAKER) (test 137 meq/L 136-145 vgbw=134) POTASSIUM (BEAKER) (test 3.6 meq/L 3.5-5.1 gmeg=863) CHLORIDE (BEAKER) (test 103 meq/L 98-107 sebb=497) CO2 (BEAKER) (test 19 meq/L 22-29 xssj=830) BLOOD UREA NITROGEN 22 mg/dL 7-21 (BEAKER) (test nqhs=123) CREATININE (BEAKER) (test 2.53 mg/dL 0.57-1.25 hyif=667) GLUCOSE RANDOM (BEAKER) 148 mg/dL 70-105 (test ddra=295) CALCIUM (BEAKER) (test 9.3 mg/dL 8.4-10.2 uftv=882) EGFR (BEAKER) (test 31 mL/min/1.73 sq m ESTIMATED GFR IS NOT mmug=2715) ACCURATE CREATININE CLEARANCE IN PREDICTING GLOMERULAR FILTRATION RATE. ESTIMATED GFR IS NOT APPLICABLE FOR DIALYSIS PATIENTS. CBC W/PLT COUNT & AUTO [id number] 05:59:00 Test Item Value Reference Range Comments WHITE BLOOD CELL COUNT (BEAKER) (test wmzg=322) 13.3 K/ L 3.5-10.5 RED BLOOD CELL COUNT (BEAKER) (test tffb=565) 5.12 M/ L 4.63-6.08 HEMOGLOBIN (BEAKER) (test ecrc=224) 14.8 GM/DL 13.7-17.5 HEMATOCRIT (BEAKER) (test dnwe=921) 44.7 % 40.1-51.0 MEAN CORPUSCULAR VOLUME (BEAKER) (test blsr=648) 87.3 fL 79.0-92.2 MEAN CORPUSCULAR HEMOGLOBIN (BEAKER) (test 28.9 pg 25.7-32.2 hobu=028) MEAN CORPUSCULAR HEMOGLOBIN CONC (BEAKER) (test 33.1 GM/DL 32.3-36.5 vtah=627) RED CELL DISTRIBUTION WIDTH (BEAKER) (test 13.4 % 11.6-14.4 ncgd=289) PLATELET COUNT (BEAKER) (test skku=525) 235 K/CU MM 150-450 MEAN PLATELET VOLUME (BEAKER) (test ynzz=801) 10.8 fL 9.4-12.4 NUCLEATED RED BLOOD CELLS (BEAKER) (test 0 /100 WBC 0-0 scwy=450) NEUTROPHILS RELATIVE PERCENT (BEAKER) (test 93 % qtgv=611) LYMPHOCYTES RELATIVE PERCENT (BEAKER) (test 3 % qtac=857) MONOCYTES RELATIVE PERCENT (BEAKER) (test 3 % shhb=498) EOSINOPHILS RELATIVE PERCENT (BEAKER) (test 0 % tixq=684) BASOPHILS RELATIVE PERCENT (BEAKER) (test 0 % mbju=738) NEUTROPHILS ABSOLUTE COUNT (BEAKER) (test 12.42 K/ L 1.78-5.38 jlif=071) LYMPHOCYTES ABSOLUTE COUNT (BEAKER) (test 0.39 K/ L 1.32-3.57 lbqa=553) MONOCYTES ABSOLUTE COUNT (BEAKER) (test 0.43 K/ L 0.30-0.82 vdds=236) EOSINOPHILS ABSOLUTE COUNT (BEAKER) (test 0.00 K/ L 0.04-0.54 zfbm=594) BASOPHILS ABSOLUTE COUNT (BEAKER) (test 0.04 K/ L 0.01-0.08 ycqk=122) IMMATURE GRANULOCYTES-RELATIVE PERCENT (BEAKER) 0 % 0-1 (test lpak=2631) [id number] 19:38:00 Test Item Value Reference Range Comments PHOSPHORUS (BEAKER) (test ogmh=502) 2.8 mg/dL 2.3-4.7 [id number] 19:38:00 Test Item Value Reference Range Comments MAGNESIUM (BEAKER) (test gatp=615) 1.7 mg/dL 1.6-2.6 BASIC METABOLIC [id number] 19:35:00 Test Item Value Reference Range Comments SODIUM (BEAKER) (test 139 meq/L 136-145 oypi=021) POTASSIUM (BEAKER) (test 3.7 meq/L 3.5-5.1 qzhx=184) CHLORIDE (BEAKER) (test 109 meq/L 98-107 tkyp=092) CO2 (BEAKER) (test 20 meq/L 22-29 cqse=889) BLOOD UREA NITROGEN 18 mg/dL 7-21 (BEAKER) (test sqcq=230) CREATININE (BEAKER) (test 2.10 mg/dL 0.57-1.25 yluq=969) GLUCOSE RANDOM (BEAKER) 148 mg/dL 70-105 (test zqmr=552) CALCIUM (BEAKER) (test 8.7 mg/dL 8.4-10.2 oiyy=233) EGFR (BEAKER) (test 39 mL/min/1.73 sq m ESTIMATED GFR IS NOT thxc=9414) ACCURATE CREATININE CLEARANCE IN PREDICTING GLOMERULAR FILTRATION RATE. ESTIMATED GFR IS NOT APPLICABLE FOR DIALYSIS PATIENTS. HEMOGLOBIN AND [id number] 19:07:00 Test Item Value Reference Range Comments HEMOGLOBIN (BEAKER) (test qyzx=572) 13.7 GM/DL 13.7-17.5 HEMATOCRIT (BEAKER) (test qrty=366) 40.5 % 40.1-51.0 URINE [id number] 13:12:00 Test Item Value Reference Range Comments CULTURE (BEAKER) (test xrfk=4328) No growth BASIC METABOLIC [id number] 17:19:00 Test Item Value Reference Range Comments SODIUM (BEAKER) (test 138 meq/L 136-145 owss=977) POTASSIUM (BEAKER) (test 4.4 meq/L 3.5-5.1 Specimen slightly zahk=111) hemolyzed CHLORIDE (BEAKER) (test 103 meq/L 98-107 zntk=167) CO2 (BEAKER) (test 27 meq/L 22-29 cwrd=799) BLOOD UREA NITROGEN 19 mg/dL 7-21 (BEAKER) (test wwii=689) CREATININE (BEAKER) (test 2.11 mg/dL 0.57-1.25 Specimen slightly xpew=826) hemolyzed GLUCOSE RANDOM (BEAKER) 98 mg/dL 70-105 (test olxh=320) CALCIUM (BEAKER) (test 9.6 mg/dL 8.4-10.2 mcsh=916) EGFR (BEAKER) (test 38 mL/min/1.73 sq m ESTIMATED GFR IS NOT guii=7987) ACCURATE CREATININE CLEARANCE IN PREDICTING GLOMERULAR FILTRATION RATE. ESTIMATED GFR IS NOT APPLICABLE FOR DIALYSIS PATIENTS. URINALYSIS W/ [id number] 17:15:00 Test Item Value Reference Range Comments COLOR (BEAKER) (test vxzn=380) Yellow CLARITY (BEAKER) (test kins=528) Clear SPECIFIC GRAVITY UA (BEAKER) (test arim=346) 1.013 1.001-1.035 PH UA (BEAKER) (test nnmk=075) 6.0 5.0-8.0 PROTEIN UA (BEAKER) (test eaar=880) 100 mg/dL Negative GLUCOSE UA (BEAKER) (test uasv=600) Negative Negative KETONES UA (BEAKER) (test drlp=817) Negative Negative BILIRUBIN UA (BEAKER) (test xdgx=080) Negative Negative BLOOD UA (BEAKER) (test jxho=053) Trace Negative NITRITE UA (BEAKER) (test dejm=471) Negative Negative LEUKOCYTE ESTERASE UA (BEAKER) (test exrr=613) Negative Negative UROBILINOGEN UA (BEAKER) (test hbwy=153) 0.2 mg/dL 0.2-1.0 RBC UA (BEAKER) (test zqln=278) 7 /HPF WBC UA (BEAKER) (test vfzq=639) 2 /HPF MUCUS (BEAKER) (test qqgb=9688) Rare SOURCE(BEAKER) (test esrb=1917) [id number] 17:07:00 Test Item Value Reference Range Comments PARTIAL THROMBOPLASTIN TIME (BEAKER) (test 28.1 seconds 22.5-36.0 ojib=693) PROTHROMBIN TIME/[id number] 17:06:00 Test Item Value Reference Range Comments PROTIME (BEAKER) (test uawd=277) 13.6 seconds 11.7-14.7 INR (BEAKER) (test ipxc=436) 1.0 <=5.9 RECOMMENDED COUMADIN/WARFARIN INR THERAPY RANGESSTANDARD DOSE: 2.0 - 3.0 Includes: PROPHYLAXIS forvenous thrombosis, systemic embolization; TREATMENT for venous thrombosis and/or pulmonary embolus.HIGH RISK: Target INR is 2.5-3.5 for patients with mechanical heart valves.CBC W/PLT COUNT & AUTO [id number] 16:53:00 Test Item Value Reference Range Comments WHITE BLOOD CELL COUNT (BEAKER) (test auud=210) 4.1 K/ L 3.5-10.5 RED BLOOD CELL COUNT (BEAKER) (test ayxe=425) 4.79 M/ L 4.63-6.08 HEMOGLOBIN (BEAKER) (test gxtu=733) 13.8 GM/DL 13.7-17.5 HEMATOCRIT (BEAKER) (test fhgn=591) 42.2 % 40.1-51.0 MEAN CORPUSCULAR VOLUME (BEAKER) (test bmdw=365) 88.1 fL 79.0-92.2 MEAN CORPUSCULAR HEMOGLOBIN (BEAKER) (test 28.8 pg 25.7-32.2 qmvm=246) MEAN CORPUSCULAR HEMOGLOBIN CONC (BEAKER) (test 32.7 GM/DL 32.3-36.5 wezl=731) RED CELL DISTRIBUTION WIDTH (BEAKER) (test 13.2 % 11.6-14.4 mqut=313) PLATELET COUNT (BEAKER) (test akop=206) 188 K/CU MM 150-450 MEAN PLATELET VOLUME (BEAKER) (test mere=137) 10.3 fL 9.4-12.4 NUCLEATED RED BLOOD CELLS (BEAKER) (test 0 /100 WBC 0-0 hjpn=245) NEUTROPHILS RELATIVE PERCENT (BEAKER) (test 49 % fswf=162) LYMPHOCYTES RELATIVE PERCENT (BEAKER) (test 36 % hyex=720) MONOCYTES RELATIVE PERCENT (BEAKER) (test 12 % eumn=099) EOSINOPHILS RELATIVE PERCENT (BEAKER) (test 2 % otpm=842) BASOPHILS RELATIVE PERCENT (BEAKER) (test 1 % skap=277) NEUTROPHILS ABSOLUTE COUNT (BEAKER) (test 2.00 K/ L 1.78-5.38 dmvv=666) LYMPHOCYTES ABSOLUTE COUNT (BEAKER) (test 1.47 K/ L 1.32-3.57 yyrc=621) MONOCYTES ABSOLUTE COUNT (BEAKER) (test 0.49 K/ L 0.30-0.82 hlnz=713) EOSINOPHILS ABSOLUTE COUNT (BEAKER) (test 0.07 K/ L 0.04-0.54 ienh=279) BASOPHILS ABSOLUTE COUNT (BEAKER) (test 0.03 K/ L 0.01-0.08 cemu=594) IMMATURE GRANULOCYTES-RELATIVE PERCENT (BEAKER) 0 % 0-1 (test hxmb=3256) TISSUE [id number] 11:47:00Surgical Pathology Report Case: [id number] Authorizing Provider: Malcom Castaneda Collected: 03/02/2017 1029 MD Cinthia [facility] Diagnostic Imaging Received: 2016 1140 [...] Intradepartmental consultation: Dr. Koko Whitney, Dr. Umu Manzanares/[id number] , [id number], [id number] x2Left kidney biopsy [facility] massThe specimen is received in fixative and [...] developed and its performance characteristics determined by [facility], Pathology Laboratory. It has not been cleared [...] qualified to perform high complexity clinical laboratory testing.[id number] 08:19:00 Test Item Value Reference Range Comments PROTIME (BEAKER) (test ahvg=425) 10.0 seconds 9.3-12.0 INR (BEAKER) (test enne=618) 0.9 <=5.9 PARTIAL THROMBOPLASTIN TIME (BEAKER) (test 27.3 seconds 23.0-35.0 nywd=576) RECOMMENDED COUMADIN/WARFARIN INR THERAPY RANGESSTANDARD DOSE: 2.0 - 3.0 Includes: PROPHYLAXIS forvenous thrombosis, systemic embolization; TREATMENT for venous thrombosis and/or pulmonary embolus.HIGH RISK: Target INR is 2.5-3.5 for patients with mechanical heart valves.CBC W/PLT COUNT & AUTO [id number] 08:14:00 Test Item Value Reference Range Comments WHITE BLOOD CELL COUNT (BEAKER) (test egku=940) 4.3 K/ L 4.0-10.0 RED BLOOD CELL COUNT (BEAKER) (test gkdp=009) 4.76 M/ L 4.20-5.80 HEMOGLOBIN (BEAKER) (test onzs=047) 14.1 GM/DL 13.0-16.8 HEMATOCRIT (BEAKER) (test deln=877) 41.7 % 40.0-50.0 MEAN CORPUSCULAR VOLUME (BEAKER) (test fzja=944) 87.6 fL 82.0-98.0 MEAN CORPUSCULAR HEMOGLOBIN (BEAKER) (test 29.7 pg 27.0-33.0 lgch=008) MEAN CORPUSCULAR HEMOGLOBIN CONC (BEAKER) (test 33.9 GM/DL 32.0-36.0 bcjj=363) RED CELL DISTRIBUTION WIDTH (BEAKER) (test 12.9 % 10.3-14.2 ghsr=544) PLATELET COUNT (BEAKER) (test xjqv=267) 212 K/CU MM 150-430 MEAN PLATELET VOLUME (BEAKER) (test efcd=128) 8.0 fL 6.5-10.5 NUCLEATED RED BLOOD CELLS (BEAKER) (test 0 /100 WBC 0-0 xnql=483) NEUTROPHILS RELATIVE PERCENT (BEAKER) (test 57 % knrw=183) LYMPHOCYTES RELATIVE PERCENT (BEAKER) (test 32 % dfoo=632) MONOCYTES RELATIVE PERCENT (BEAKER) (test 9 % beem=489) EOSINOPHILS RELATIVE PERCENT (BEAKER) (test 2 % pmmp=514) BASOPHILS RELATIVE PERCENT (BEAKER) (test 1 % mnkf=993) NEUTROPHILS ABSOLUTE COUNT (BEAKER) (test 2.50 K/ L 1.80-8.00 dbex=265) LYMPHOCYTES ABSOLUTE COUNT (BEAKER) (test 1.40 K/ L 1.48-4.50 frwu=528) MONOCYTES ABSOLUTE COUNT (BEAKER) (test 0.40 K/ L 0.00-1.30 onzd=817) EOSINOPHILS ABSOLUTE COUNT (BEAKER) (test 0.10 K/ L 0.00-0.50 bjoo=422) BASOPHILS ABSOLUTE COUNT (BEAKER) (test 0.00 K/ L 0.00-0.20 orgc=965)
[2019-02-04] MEDS ORDERED: cloNIDine HCl 0.1 MG TAB ONE (21:19)
[2019-02-04 21:54] LABS: Absolute Lymphocytes (CBC) 1.2 K/uL (0.7-4.9)
[2019-02-04 21:58] LABS: Basophils % 1.3 % (0-1.3); Hematocrit 47.6 % (39.6-49.0); Lymphocytes % 20.2 % (15.3-44.8); MPV 8.5 fL (7.6-11.3); RBC Red Blood Cell Count 5.15 M/uL (4.33-5.43)
[2019-02-04 22:01] LABS: Protime INR 0.94
[2019-02-04 22:15] LABS: Albumin 4.2 g/dL (3.4-5.0); Bilirubin Direct 0.1 mg/dL (0-0.2); Bilirubin Total 0.5 mg/dL (0.2-1.0); Magnesium 2.3 mg/dL (1.8-2.4); Potassium 3.4 mmol/L (3.5-5.1); Troponin (Emerg Dept Use Only) 0.06 ng/mL (0.0-0.045)
[2019-02-04] MEDS ORDERED: NA CHLORIDE 0.9% 1,000 ML ONE (22:26)
[2019-02-04] MEDS ORDERED: ASPIRIN 81 MG CHEWABLE TABLET ONE (22:26)
--- NOTE | 2019-02-04 23:32 | EDPHYS ---
Physician Documentation [facility] Name: Aravind Low Age: 68 yrs Sex: Male : 1950 Arrival Date: 02/04/2019 Time: 19:41 Bed 13 Private MD: ED Physician Lanre Schroeder HPI: 02/04 21:10 This 68 yrs old Black Male presents to ER via Ambulatory with complaints of High Blood cp Pressure. 21:10 The patient has elevated blood pressure and discovered this at home, with a home device.cp 21:10 Onset: The symptoms/episode began/occurred today. cp 21:10 Associated signs and symptoms: Pertinent positives: headache, Pertinent negatives: cp chest pain, dizziness, lightheadedness, nausea, vomiting, weakness. Severity of symptoms: At its worst the blood pressure was 209 mm Hg. Historical: - Allergies: 19:51 No Known Allergies; ak1 - PMHx: 19:51 Hypertension; ak1 - PSHx: 19:51 left kidney removed; ak1 - Immunization history:: Adult Immunizations unknown. - Social history:: Smoking status: Patient uses tobacco products, smokes one pack cigarettes per day. - Ebola Screening: : No symptoms or risks identified at this time. ROS: 21:20 Constitutional: Negative for body aches, chills, fever, poor PO intake. cp 21:20 Eyes: Negative for injury, pain, redness, and discharge. cp 21:20 ENT: Negative for drainage from ear(s), ear pain, sore throat, difficulty swallowing, difficulty handling secretions. 21:20 Cardiovascular: Negative for chest pain, edema, palpitations. 21:20 Respiratory: Negative for cough, shortness of breath, wheezing. 21:20 Abdomen/GI: Negative for abdominal pain, nausea, vomiting, and diarrhea, black/tarry stool, rectal bleeding. 21:20 Back: Negative for pain at rest, pain with movement, radiated pain. 21:20 : Negative for urinary symptoms. 21:20 Skin: Negative for cellulitis, rash. 21:20 Neuro: Negative for altered mental status, dizziness, syncope, weakness. 21:20 All other systems are negative. Exam: 21:25 Constitutional: The patient appears in no acute distress, alert, awake, comfortable, cp non-diaphoretic, non-toxic, well developed, well nourished. 21:25 Head/Face: Normocephalic, atraumatic. cp 21:25 Eyes: Periorbital structures: appear normal, Pupils: equal, round, and reactive to light and accomodation, Extraocular movements: intact throughout, Conjunctiva: normal, no exudate, no injection, Lids and lashes: appear normal, bilaterally. 21:25 ENT: External ear(s): are unremarkable, Ear canal(s): are normal, clear, TM's: dullness, bilaterally, Nose: is normal, Mouth: Lips: moist, Oral mucosa: pink and intact, moist, Posterior pharynx: is normal, airway is patent, no erythema, no exudate. 21:25 Neck: ROM/movement: is normal, is supple, without pain, no range of motions limitations, no nuchal rigidity. 21:25 Chest/axilla: Inspection: normal, Palpation: is normal, no crepitus, no tenderness. 21:25 Cardiovascular: Rate: tachycardic, Rhythm: regular, Edema: is not appreciated, JVD: is not appreciated. 21:25 Respiratory: the patient does not display signs of respiratory distress, Respirations: normal, no use of accessory muscles, no retractions, no splinting, no tachypnea, labored breathing, is not present, Breath sounds: are clear throughout, no decreased breath sounds, no stridor, no wheezing. 21:25 Abdomen/GI: Inspection: abdomen appears normal, Palpation: abdomen is soft and non-tender, in all quadrants. 21:25 Skin: no rash present. 21:25 Neuro: Orientation: to person, place \T\ time. Mentation: is normal, Cerebellar function: is grossly normal, Motor: moves all fours, strength is normal, Sensation: is normal. 21:40 ECG was reviewed by the Attending Physician. cp Vital Signs: 19:51 BP 203 / 109; Pulse 110; Resp 20; Temp 97.6; Pulse Ox 99% on R/A; Weight 68.04 kg (R); ak1 Height 5 ft. 4 in. (162.56 cm) (R); Pain 0/10; 21:20 BP 209 / 121; Pulse 101; Resp 22; ch 22:01 BP 187 / 111; Pulse 97; Resp 17; Pulse Ox 98% on R/A; Pain 0/10; ch 22:30 BP 159 / 101; Pulse 80; Resp 15; Temp 98.2; Pulse Ox 99% on R/A; ch 23:08 BP 160 / 104; Pulse 77; Resp 16; Pulse Ox 98% on R/A; Pain 0/10; ch 02/05 00:03 BP 153 / 105; Pulse 89; Resp 16; Temp 98.8; Pulse Ox 99% on R/A; Pain 0/10; ch 00:29 BP 164 / 106; Pulse 87; Resp 17; Pulse Ox 98% on R/A; Pain 0/10; ch 02/04 19:51 Body Mass Index 25.75 (68.04 kg, 162.56 cm) ak1 MDM: 02/04 20:33 Patient medically screened. jami 21:00 Differential diagnosis: hypertensive crisis, Malignant HTN, CVA, intracerebral cp hemorrhage. 23:00 Data reviewed: vital signs, nurses notes, lab test result(s), EKG, radiologic studies, cp CT scan, plain films. 23:00 Test interpretation: by ED physician or midlevel provider: ECG, plain radiologic cp studies, chest xray negative for infiltrates. Response to treatment: the patient's symptoms have mildly improved after treatment, and as a result, I will admit patient. 02/04 20:55 Order name: Basic Metabolic Panel cp 02/04 20:55 Order name: CBC with Diff cp 02/04 20:55 Order name: LFT's; Complete Time: 22:43 cp 02/04 20:55 Order name: Magnesium; Complete Time: 22:43 cp 02/04 20:55 Order name: NT PRO-BNP; Complete Time: 22:43 cp 02/04 20:55 Order name: PT-INR; Complete Time: 22:43 cp 02/04 20:55 Order name: Troponin (emerg Dept Use Only); Complete Time: 22:43 cp 02/04 22:43 Interpretation: Abnormal: TROPED 0.06. cp 02/04 20:55 Order name: CT Head Brain wo Cont cp 02/04 20:55 Order name: XRAY Abdomen With Erect cp 02/04 20:56 Order name: Basic Metabolic Panel; Complete Time: 22:43 EDMS 02/04 22:44 Interpretation: Normal except: K 3.4; BUN 29; CRE 3.56; GFR 21. cp 07/23 20:56 Order name: CBC with Automated Diff; Complete Time: 22:43 EDMS 02/04 20:55 Order name: EKG; Complete Time: 20:57 cp 02/04 20:55 Order name: Cardiac monitoring; Complete Time: :59 cp 02/04 20:55 Order name: EKG - Nurse/Tech; Complete Time: 21:59 cp 02/04 20:55 Order name: IV Saline Lock; Complete Time: :59 cp 02/04 20:55 Order name: Labs collected and sent; Complete Time: :59 cp 02/04 20:55 Order name: O2 Per Protocol; Complete Time: :59 cp 02/04 20:55 Order name: O2 Sat Monitoring; Complete Time: :59 cp EC:40 Rate is 100 beats/min. Rhythm is regular. ME interval is normal. QRS interval is cp normal. QT interval is prolonged at 386 msec. T waves are Inverted in lead aVL. Interpreted by me. Reviewed by me. Administered Medications: 21:20 Drug: cloNIDine 0.2 mg Route: PO; 22:32 Follow up: Response: No adverse reaction; Marked relief of symptoms 22:10 Drug: Aspirin Chewable Tablet 324 mg Route: PO; 23:08 Follow up: Response: No adverse reaction 22:10 Drug: NS 0.9% 500 ml Route: IV; Rate: bolus; Site: right antecubital; 23:08 Follow up: IV Status: Completed infusion; IV Intake: 500ml 02/05 00:57 Drug: amLODIPine 10 mg Route: PO; 01:00 Follow up: Response: No adverse reaction 03:44 Not Given (not applicable): hydrALAZINE 10 mg IV at calculated rate once ch Disposition: 06:21 Co-signature as Attending Physician, Lanre Schroeder MD I agree with the assessment and jami plan of care. Disposition: 02/04/19 23:31 Hospitalization ordered by Miguel Houston for Observation. Preliminary diagnosis are Hypertensive heart and chronic kidney disease, elevated troponin. - Bed requested for Telemetry/MedSurg (observation). - Status is Observation. ch - Condition is Stable. - Problem is new. - Symptoms have improved. UTI on Admission? No Signatures: Dispatcher [employer] Ashley Rogel RN Lanre Camarena ch, MD MD cha Krenek, Amber, RN RN ak1 Lanre Dunlap, LACEY RAHMAN cp Corrections: (The following items were deleted from the chart) 02/04 23:46 23:31 Hospitalization Ordered by Miguel Houston DO for Observation. Preliminary ak1 diagnosis is Hypertensive heart and chronic kidney disease; elevated troponin. Bed requested for Telemetry/MedSurg (observation). Status is Observation. Condition is Stable. Problem is new. Symptoms have improved. UTI on Admission? No. cp 02/05 01:18 02/04 23:46 02/04/2019 23:31 Hospitalization Ordered by Miguel Houston DO for Observation. Preliminary diagnosis is Hypertensive heart and chronic kidney disease; elevated troponin. Bed requested for Telemetry/MedSurg (observation). Status is Observation. Condition is Stable. Problem is new. Symptoms have improved. UTI on Admission? No. ak1
--- NOTE | 2019-02-04 23:32 | ER ---
Nurse's Notes [facility] Name: Aravind Low Age: 68 yrs Sex: Male : 1950 Arrival Date: 02/04/2019 Time: 19:41 Bed 13 Private MD: Diagnosis: Hypertensive heart and chronic kidney disease;elevated troponin Presentation: 02/04 19:50 Presenting complaint: Patient states: high blood pressure since this morning. pt ak1 stated pt with generalized weakness. Transition of care: patient was not received from another setting of care. Onset of symptoms was February 04, 2019. Risk Assessment: Do you want to hurt yourself or someone else? Patient reports no desire to harm self or others. Initial Sepsis Screen: Does the patient meet any 2 criteria? No. Patient's initial sepsis screen is negative. Does the patient have a suspected source of infection? No. Patient's initial sepsis screen is negative. Care prior to arrival: None. 19:50 Method Of Arrival: Ambulatory ak1 19:50 Acuity: ANTONIO 2 ak1 Triage Assessment: 19:51 General: Appears in no apparent distress. Behavior is calm, cooperative. ak1 Historical: - Allergies: 19:51 No Known Allergies; ak1 - PMHx: 19:51 Hypertension; ak1 - PSHx: 19:51 left kidney removed; ak1 - Immunization history:: Adult Immunizations unknown. - Social history:: Smoking status: Patient uses tobacco products, smokes one pack cigarettes per day. - Ebola Screening: : No symptoms or risks identified at this time. Screenin:01 Abuse screen: Denies threats or abuse. Denies injuries from another. Nutritional ch screening: No deficits noted. Tuberculosis screening: No symptoms or risk factors identified. Fall Risk None identified. Assessment: 21:30 General: Appears in no apparent distress. comfortable, Behavior is calm, cooperative, ch appropriate for age. Pain: Denies pain. Neuro: No deficits noted. Respiratory: Airway is patent Respiratory effort is even, unlabored, Breath sounds are coarse bilaterally. GI: No signs and/or symptoms were reported involving the gastrointestinal system. : No signs and/or symptoms were reported regarding the genitourinary system. Derm: Skin is healthy with good turgor, Skin is dry, Skin is normal, black. Musculoskeletal: No signs and/or symptoms reported regarding the musculoskeletal system. 22:40 Reassessment: Patient appears in no apparent distress at this time. Patient and/or ch family updated on plan of care and expected duration. Pain level reassessed. Patient is alert, oriented x 3, equal unlabored respirations, skin warm/dry/pink. pt bp decreased, further bp medications held. 02/05 00:00 Reassessment: Patient appears in no apparent distress at this time. No changes from ch previously documented assessment. Patient and/or family updated on plan of care and expected duration. Pain level reassessed. Patient is alert, oriented x 3, equal unlabored respirations, skin warm/dry/pink. Patient denies pain at this time. Patient states feeling better. 00:25 Reassessment: attempted to call report, instructed to wait for call back. [email or web address] Vital Signs: 02/04 19:51 BP 203 / 109; Pulse 110; Resp 20; Temp 97.6; Pulse Ox 99% on R/A; Weight 68.04 kg (R); ak1 Height 5 ft. 4 in. (162.56 cm) (R); Pain 0/10; 21:20 BP 209 / 121; Pulse 101; Resp 22; ch 22:01 BP 187 / 111; Pulse 97; Resp 17; Pulse Ox 98% on R/A; Pain 0/10; ch 22:30 BP 159 / 101; Pulse 80; Resp 15; Temp 98.2; Pulse Ox 99% on R/A; ch 23:08 BP 160 / 104; Pulse 77; Resp 16; Pulse Ox 98% on R/A; Pain 0/10; ch 02/05 00:03 BP 153 / 105; Pulse 89; Resp 16; Temp 98.8; Pulse Ox 99% on R/A; Pain 0/10; ch 00:29 BP 164 / 106; Pulse 87; Resp 17; Pulse Ox 98% on R/A; Pain 0/10; ch 02/04 19:51 Body Mass Index 25.75 (68.04 kg, 162.56 cm) ak1 ED Course: 02/04 19:41 Patient arrived in ED. ds1 19:51 Triage completed. ak1 19:51 Arm band placed on Patient placed in an exam room, on a stretcher, Patient notified of ak1 wait time. 20:30 Lanre Dunlap PA is PHCP. cp 20:30 Lanre Schroeder MD is Attending Physician. cp 20:58 Ashley Daniel, RN is Primary Nurse. ch 21:17 CT Head Brain wo Cont In Process Unspecified. EDMS 21:20 No provider procedures requiring assistance completed. Inserted saline lock: 20 gauge ch in right antecubital area, using aseptic technique. Blood collected. 21:22 XRAY Abdomen With Erect In Process Unspecified. EDMS 22:01 Patient has correct armband on for positive identification. Placed in gown. Bed in low ch position. Call light in reach. Side rails up X 1. Adult w/ patient. monitoring analyst on. Pulse ox on. NIBP on. Warm blanket given. 23:30 Miguel Houston DO is Hospitalizing Provider. 02/05 00:50 Patient admitted, IV remains in place. Administered Medications: 02/04 21:20 Drug: cloNIDine 0.2 mg Route: PO; 22:32 Follow up: Response: No adverse reaction; Marked relief of symptoms 22:10 Drug: Aspirin Chewable Tablet 324 mg Route: PO; 23:08 Follow up: Response: No adverse reaction 22:10 Drug: NS 0.9% 500 ml Route: IV; Rate: bolus; Site: right antecubital; 23:08 Follow up: IV Status: Completed infusion; IV Intake: 500ml 02/05 00:57 Drug: amLODIPine 10 mg Route: PO; 01:00 Follow up: Response: No adverse reaction 03:44 Not Given (not applicable): hydrALAZINE 10 mg IV at calculated rate once ch Intake: 02/04 23:08 IV: 500ml; Total: 500ml. Outcome: 23:31 Decision to Hospitalize by Provider. 02/05 00:44 Admitted to Med/surg accompanied by tech, via wheelchair, room 411, with chart, Report ak1 called to Kristi HOYT Condition: stable Instructed on the need for admit. 01:18 Patient left the ED. Signatures: Dispatcher [employer] EDAshley Marks, RN RN Afua Pritchett ds1 Kat Walters RN RN ak1 Lanre Dunlap, LACEY PA Avila Hodgson, RN RN jb4 Corrections: (The following items were deleted from the chart) 07/23 19:52 19:50 Acuity: ANTONIO 3 ak1 ak1
--- NOTE | 2019-02-05 00:03 | P.HP ---
Certification for Inpatient Patient admitted to: Observation With expected LOS: <2 Midnights Patient will require the following post-hospital care: None Practitioner: I am a practitioner with admitting privileges, knowledge of patient current condition, hospital course, and medical plan of care. Services: Services provided to patient in accordance with Admission requirements found in Title 42 Section 412.3 of the Code of Federal Regulations Patient History Date of Service: 02/04/19 Primary Care Provider: Unknown(Jalil physician); Nephrology-Dr. Arceo Reason for admission: Elevated blood pressure History of Present Illness: 68-year-old male presented to the emergency room with elevated blood pressure. Patient is a poor historian. Most information came from the ER provider who spoke to the . The apparently noted that his blood pressures have been elevated. She brought the patient due to uncontrolled hypertension. The patient did not having any chest pain, shortness of breath or dizziness. reported that patient has been taking multiple medications for blood pressure. Patient with history of chronic renal disease stage IV, hypertension and left renal mass status post nephrectomy as per ER provider. In the ER, patient was evaluated. Blood pressures were elevated in the 200 systolic range. Patient was given clonidine with improvement. Lab showed slight elevation in troponin of 0.06. White count 5.7, hemoglobin 15. Sodium 139, potassium 3.4, BUN of 29, creatinine 3.56 with a GFR of 21. Glucose 96. Due to his multiple medical problems and elevated blood pressure patient was admitted for observation. In the ER patient was assess. Patient does not appear septic. Patient is a poor historian. Patient denies any chest pain Home medications list reviewed: Yes - Past Medical/Surgical History Diabetic: No -: Hypertension -: Chronic renal disease, stage IV -: History left renal mass with nephrectomy -: Left nephrectomy Psychosocial/ Personal History: Patient is - Family History Family History: Reviewed- Non-Contributory - Social History Smoking Status: Never smoker Alcohol use: No CD- Drugs: No Caffeine use: No Place of Residence: Home Review of Systems General: As per HPI Eyes: Unremarkable ENT: Unremarkable Respiratory: Unremarkable Cardiovascular: Unremarkable Gastrointestinal: Unremarkable Genitourinary: Unremarkable Musculoskeletal: Unremarkable Integumentary: Unremarkable Neurological: Unremarkable Lymphatics: Unremarkable Physical Examination - Physical Exam General: Alert, In no apparent distress, Oriented x3, Cooperative HEENT: Atraumatic, Normocephalic, PERRLA, Mucous membr. moist/pink Neck: Supple, No Thyromegaly Respiratory: Clear to auscultation bilaterally, Normal air movement Cardiovascular: Normal pulses, Regular rate/rhythm Gastrointestinal: Normal bowel sounds, Soft and benign, Non-distended, No tenderness, No masses, No rebound, No guarding Musculoskeletal: No erythema, No tenderness, No warmth Integumentary: No tenderness/swelling, No erythema, No warmth, No cyanosis Neurological: Normal speech, Normal strength at 5/5 x4 extr, Normal tone, Normal affect - Studies Laboratory Data (last 24 hrs) 02/04/19 21:40: PT 11.1, INR 0.94 02/04/19 21:40: WBC 5.7, Hgb 15.9, Hct 47.6, Plt Count 202 02/04/19 21:40: Sodium 139, Potassium 3.4 L, BUN 29 H, Creatinine 3.56 H, Glucose 96, Magnesium 2.3, Total Bilirubin 0.5, AST 22, ALT 29, Alkaline Phosphatase 96 Assessment and Plan - Plan Impression: Uncontrolled hypertension Chronic renal disease, stage IV History of left renal mass with nephrectomy Plan: Patient will be admitted for further evaluation. Will monitor cardiac enzymes due to slight elevation in troponin likely related to elevated uncontrolled hypertension. Will need to obtain home medication and restart his medication. Will start with Norvasc 10 mg daily, carvedilol 12.5 mg 1 pill twice daily and hydralazine IV to maintain blood pressure less than 160 systolic. Renal function appears to be stable at this time. This can be followed as an outpatient. He apparently sees Nephrology as an outpatient. Will check echocardiogram in the a.m.. Will consult cardiology to further evaluate and assess. Patient may require cardiac evaluation likely as an outpatient if clinically stable. Anticipate discharge as early as tomorrow if blood pressure improved. Compliance with medication will need to be addressed in detail. Discharge Plan: Home Plan to discharge in: 24 Hours - Advance Directives Does patient have a Living Will: No Does patient have a Durable POA for Healthcare: No - Code Status/Comfort Care Code Status Assessed: Yes (Patient is full code) Time Spent Managing Pts Care (In Minutes): 55
[2019-02-05] MEDS ORDERED: AMLODIPINE 5 MG TAB ONE (01:24)
[2019-02-05] MEDS ORDERED: ACETAMINOPHEN 500 MG TAB PO PRN (01:36)
[2019-02-05] MEDS ORDERED: ONDANSETRON 4 MG/2 ML VIAL IV PRN (01:36)
[2019-02-05] MEDS ORDERED: HYDRALAZINE HCL 20 MG/ML VIAL IV PRN (01:36)
[2019-02-05 01:43] VITALS: BMI 23.8
[2019-02-05 04:01] LABS: CKMB Creatine Kinase MB 3.1 ng/mL (0.3-3.6); Troponin I 0.07 ng/mL (0.0-0.045)
[2019-02-05] MEDS ORDERED: CARVEDILOL 12.5 MG TAB PO SCH (06:00)
[2019-02-05 06:42] LABS: Absolute Lymphocytes (CBC) 1.2 K/uL (0.7-4.9); Basophils % 0.3 % (0-1.3); Hematocrit 41.8 % (39.6-49.0); Lymphocytes % 26.6 % (15.3-44.8); MPV 8.7 fL (7.6-11.3); RBC Red Blood Cell Count 4.58 M/uL (4.33-5.43)
--- NOTE | 2019-02-05 07:40 | RAD REPORT ---
EXAM DESCRIPTION: RAD - Abdomen W Erect - 02/04/2019 9:20 pm CLINICAL HISTORY: Abdominal pain, constipation COMPARISON: None. TECHNIQUE: Supine and upright views of the abdomen were obtained. FINDINGS: Large stool volume is present filling but not dilating the colon. Findings are more pronou nced in the cecum and ascending colon. Air-filled small bowel loops are present. No bowel obstruction , free air or pneumatosis. Surgical clips are present in the left side mid abdomen. No suspicious jennifer cifications. Bilateral hip joint degenerative change present. No acute bone finding. IMPRESSION: Large stool volume filling but not dilating the colon. No bowel obstruction.
[2019-02-05 08:57] LABS: Magnesium 2.2 mg/dL (1.8-2.4); Potassium 3.7 mmol/L (3.5-5.1); Thyroid Stimulating Hormone 1.58 uIU/mL (0.360-3.740)
[2019-02-05] MEDS ORDERED: POTASSIUM CL SA 10 MEQ TAB PO ONE (08:58)
[2019-02-05] MEDS ORDERED: AMLODIPINE 10 MG TAB PO SCH (09:00)
[2019-02-05] MEDS ORDERED: ASPIRIN EC 81 MG TAB PO SCH (09:00)
[2019-02-05] MEDS ORDERED: ALLOPURINOL 100 MG TAB PO SCH (09:00)
[2019-02-05] MEDS ORDERED: ENOXAPARIN 40 MG/0.4 ML SQ SCH (09:00)
[2019-02-05 09:27] VITALS: TEMP 98.2
--- NOTE | 2019-02-05 09:51 | RAD REPORT ---
EXAM DESCRIPTION: CT - Head Brain Wo Cont - 02/05/2019 2:57 am CLINICAL HISTORY: 68 years Male hypertension TECHNIQUE: Contiguous axial CT images obtained through the brain without IV contrast. Coronal and sa gittal reformatted images also provided. This exam was performed according to our department optimization program which includes automated exp osure control, adjustment of the mA and/or kv according to patient size and/or use of iterative recon struction technique. COMPARISON: Comparison is made to the prior examination dated 02/21/2013. FINDINGS: There is no intracranial hemorrhage, extraaxial collection, or definite evidence of acute transcortical infarction. Confluent areas of low attenuation within the periventricular and subcortical white matter are most c ompatible with chronic microvascular disease. There are chronic-appearing basal ganglia and thalamic lacunes. Stable moderate diffuse volume loss without mass effect or midline shift. Vascular calcifications are noted. No lesion of the skull base or calvarium is identified. The parana lashae sinuses and mastoid air cells are clear. IMPRESSION: No visualized acute intracranial abnormality. Again seen are moderate chronic ischemic changes and volume loss. Electronically signed by: Jennifer Sharp MD 02/04/2019 9:30 PM CDT Due to temporary technical issues with the PACS/Fluency reporting system, reports are being signed by the in house radiologist as a courtesy to ensure prompt reporting. The interpreting radiologist is f antionely responsible for the content of the report.
--- NOTE | 2019-02-05 10:32 | CON ---
Identification: Mr. Low is 68. Reason For Consultation: I am asked to see him because his troponins are elevated. History Of Present Illness: Mr. Low was brought to the hospital at the urging of his . He emanuel s not actually give me a chief complaint. He smiles and shrugged his shoulders when asked why he cam e. His blood pressure measured at home was elevated and his said he was just generally weak. T he patient denies having any chest pain or shortness of breath and his history is confusing because I believe he is a little bit confused. He answered the same questions slightly different just a few m inutes apart and seems to be purposely vague in his answers just to avoid answering questions. He bedolla s a history of alcohol abuse, tobacco abuse, history of diabetes and hypertension. He says he is augusto re, he has kidney failure, but has not seen a kidney doctor. Since he has been here, his creatinine has been above 3. He is not a dialysis patient. Physical Examination: General: 5 feet 4 inches, 138 pounds. Alert, pleasant, not in distress. Lungs: Do not reveal crackles or wheezes. Heart: Reveals an S4 gallop. Regular rhythm. No significant murmur. Abdomen: Soft. Extremities: Diminished distal pulses. No edema. Skin: Warm and well perfused in his shins and feet. Laboratory Data: He has a normal complete blood count. Creatinine 3.56. Troponin 0.06, 0.07. Inte rnal proBNP is 949. Lipid panel is pending. Impression: Mr. Low has hypertensive heart disease probably fair to call this a hypertensive crisi s with renal failure, proteinuria. I am not sure it is an acute coronary syndrome looking at the EKG , an echo will help us. His troponins could be the side of him having blood pressure elevation for d ays and creatinine clearance in the 10s, so that is the most likely cause of the troponin. Echo will help us determine how serious to regard the troponin elevation. SH/MODL Voice ID: [id number] Report ID: [id number]
--- NOTE | 2019-02-05 10:35 | EKG ---
Test Date: 2019-02-04 Test Time: 21:30:47 Water Chaser: DONNA MEASUREMENT RESULTS: Intervals: Rate: 100 PA: 154 QRSD: 74 QT: 386 QTc: 497 [place]: P: 60 PA: 154 QRS: 67 T: 83 INTERPRETIVE STATEMENTS: Normal sinus rhythm Possible Left atrial enlargement Left ventricular hypertrophy Prolonged QT Abnormal ECG Compared to ECG 01/20/2019 23:28:20 Left ventricular hypertrophy now present Prolonged QT interval now present Sinus bradycardia no longer present Electronically Signed On 02-05-19 10:34:28 CDT by Keon Leon
--- NOTE | 2019-02-05 11:23 | ECHO ---
HEIGHT: 5 ft 4 in WEIGHT: 138 lb 8 oz DATE OF STUDY: 02/05/[address]: Miguel Houston DO 2-DIMENSIONAL: YES M.MODE: YES DOPPLER: YES COLOR FLOW: YES TDS: NO PORTABLE: NO DEFINITY: NO BUBBLE STUDY: NO DIAGNOSIS: UNCONTROLLED HYPERTENSION, ELEVATED TROPONIN CARDIAC HISTORY: CATHERIZATION: NO SURGERY: NO PROSTHETIC VALVE: NO PACEMAKER: NO MEASUREMENTS (cm) DIASTOLIC (NORMALS) SYSTOLIC (NORMALS) IVSd 1.8 (0.6-1.2) LA Diam 2.8 (1.9-4.0) LVEF 56% LVIDd 3.8 (3.5-5.7) LVIDs 2.7 (2.0-3.5) %FS 28% LVPWd 1.6 (0.6-1.2) Ao Diam 2.9 (2.0-3.7) 2 DIMENSIONAL ASSESSMENT: RIGHT ATRIUM: NORMAL LEFT ATRIUM: NORMAL RIGHT VENTRICLE: NORMAL LEFT VENTRICLE: CONCENTRIC LEFT VENTRICULAR HYPERTROPHY SEVERE TRICUSPID VALVE: NORMAL MITRAL VALVE: NORMAL PULMONIC VALVE: NORMAL AORTIC VALVE: NORMAL PERICARDIAL EFFUSION: NONE AORTIC ROOT: NORMAL LEFT VENTRICULAR WALL MOTION: NORMAL. DOPPLER/COLOR FLOW: TRACE MITRAL REGURGITATION. IMPAIRED LEFT VENTRICULAR RELAXATION. COMMENTS: NORMAL LEFT VENTRICULAR EJECTION FRACTION. SEVERE CONCENTRIC LEFT VENTRICULAR HYPERTROPHY. IMPAIRED LEFT VENTRICULAR RELAXATION. TRACE MITRAL REGURGITATION. TECHNOLOGIST: TAPAN MEJÍA
[2019-02-05 11:43] VITALS: O2SAT 98
[2019-02-05 12:21] LABS: Troponin I 0.05 ng/mL (0.0-0.045)
--- NOTE | 2019-02-05 13:16 | P.SSS ---
Patient History Date of Service: 02/05/19 Primary Care Provider: Unknown([place] physician); Nephrology-Dr. Arceo Reason for admission: Elevated blood pressure History of Present Illness: 68-year-old male presented to the emergency room with elevated blood pressure. Patient is a poor historian. Most information came from the ER provider who spoke to the . The apparently noted that his blood pressures have been elevated. She brought the patient due to uncontrolled hypertension. The patient did not having any chest pain, shortness of breath or dizziness. reported that patient has been taking multiple medications for blood pressure. Patient with history of chronic renal disease stage IV, hypertension and left renal mass status post nephrectomy as per ER provider. In the ER, patient was evaluated. Blood pressures were elevated in the 200 systolic range. Patient was given clonidine with improvement. Lab showed slight elevation in troponin of 0.06. White count 5.7, hemoglobin 15. Sodium 139, potassium 3.4, BUN of 29, creatinine 3.56 with a GFR of 21. Glucose 96. Due to his multiple medical problems and elevated blood pressure patient was admitted for observation. In the ER patient was assess. Patient does not appear septic. Patient is a poor historian. Patient denies any chest pain Home medications list reviewed: Yes Allergies No Known Allergies Allergy (Unverified 02/05/19 00:05) - Past Medical/Surgical History Has patient received pneumonia vaccine in the past: No Diabetic: No -: Hypertension -: Chronic renal disease, stage IV -: History left renal mass with nephrectomy -: Left nephrectomy Psychosocial/ Personal History: Patient is - Family History Family History: Reviewed- Non-Contributory - Family History Father History Unknown: Yes Mother History Unknown: Yes - Social History Smoking Status: Never smoker Alcohol use: No CD- Drugs: No Caffeine use: No Place of Residence: Home Review of Systems 10-point ROS is otherwise unremarkable Physical Examination - Vital Signs Temperature: 98.2 F Blood Pressure: 154/91 Pulse: 71 Respirations: 16 Pulse Ox (%): 99 - Physical Exam General: Alert, In no apparent distress HEENT: Atraumatic, PERRLA, Mucous membr. moist/pink, EOMI, Sclerae nonicteric Neck: Supple, 2+ carotid pulse no bruit, No LAD, Without JVD or thyroid abnormality Respiratory: Clear to auscultation bilaterally, Normal air movement Cardiovascular: Regular rate/rhythm, Normal S1 S2 Gastrointestinal: Normal bowel sounds, No tenderness Musculoskeletal: No tenderness Integumentary: No rashes Neurological: Normal gait, Normal speech, Normal strength at 5/5 x4 extr, Normal tone, Normal affect Lymphatics: No axilla or inguinal lymphadenopathy - Studies Laboratory Data (last 24 hrs) 02/04/19 21:40: PT 11.1, INR 0.94 02/04/19 21:40: WBC 5.7, Hgb 15.9, Hct 47.6, Plt Count 202 02/04/19 21:40: Sodium 139, Potassium 3.4 L, BUN 29 H, Creatinine 3.56 H, Glucose 96, Magnesium 2.3, Total Bilirubin 0.5, AST 22, ALT 29, Alkaline Phosphatase 96 - Diagnosis (Problem(s)) (1) Elevated troponin Current Visit: Yes Status: Acute (2) Hypertension Current Visit: Yes Status: Chronic Qualifiers: Hypertension type: essential hypertension Qualified Code(s): I10 - Essential (primary) hypertension Treatment Summary: Overall during the hospital stay patient remained stable Patient was initially admitted to the hospital for uncontrolled high blood pressure and was found to have elevated troponin. Patient also has a history of CKD stage 4. Cardiology was consulted. Patient had an echocardiogram done here in the hospital which was negative for any acute abnormality of was positive for impaired relaxation. Which is chronic in nature. Cardiology then recommended the patient be discharged home under stable condition and his elevated troponin is most likely secondary to his chronic kidney disease. Patient and family demonstrated understanding and thus were discharged home under stable condition once patient remains chest pain-free and was able to ambulate and tolerate diet. - Disposition Disposition: ROUTINE DISCHARGE Condition: GOOD Diet: Regular Activity: Ad marlene
[2019-02-05 15:03] VITALS: BP 169/90
[2019-02-05] MEDS ORDERED: ATORVASTATIN 40 MG TAB PO SCH (21:00)
== END 2019-02-05 15:15 | disposition home or self-care (01) ==
LOC: ER 19:35 → ERHOLD 02-05 00:12 → 4TH 02-05 00:45
PROVIDERS: ADMIT Family Medicine; ATTEND Family Medicine
DX: I13.10 Hypertensive heart and chronic kidney disease without heart failure, with stage 1 through stage 4 chronic kidney disease, or unspecified chronic kidney disease (principal); N18.4 Chronic kidney disease, stage 4 (severe); R77.8 Other specified abnormalities of plasma proteins; R94.31 Abnormal electrocardiogram [ECG] [EKG]; F17.210 Nicotine dependence, cigarettes, uncomplicated; Z90.5 Acquired absence of kidney; Z86.39 Personal history of other endocrine, nutritional and metabolic disease
CPT/HCPCS: 93005; 93306; 85025 ×2; 80048 ×2; 36415; 83735 ×2; 82550 ×2; 85610; 80061; 80076; 84443; 84484 ×3; 82553 ×2; 84439; 83880; 70450; 74019; 96360; 99285; J0360; J1650; J7030; G0378 ×2

== ENCOUNTER 2019-03-27 16:09 | Inpatient (IN) | payer OTHER ==
--- OUTSIDE RECORDS SUMMARY | 2019-03-27 16:11 | XMS REPORT | Clinical Summary ---
:1950 Author Organization [facility] Address [address] [place] [address] Support Name Relationship Address Phone Lilia Low Unavailable [address] [place] [address] Care Team Providers Name Role Phone Wendy [...] Not on file Results Not on fileafter 03/26/2018 Insurance Payer Benefit Plan / Group Subscriber ID Type Phone Address MEDICARE MEDICARE A B xxxxxxxxxx Medicare Advance Directives For more information, please contact:[address] [phone] Code Status Date Activated Date Inactivated Comments Full Code 10/09/2017 9:14 PM 10/14/2017 5:27 AM This code status was determined by: Patient Full Code 03/02/2017 12:28 PM 03/02/2017 10:49 PM This code status was determined by: Patient
--- OUTSIDE RECORDS SUMMARY | 2019-03-27 16:12 | XMS REPORT ---
:1950 [facility] Address [address] [place] [address] Care Team Providers Name Role Phone CITLALY MIMS Unavailable Unavailable MALCOM CASTANEDA Unavailable Unavailable Problems This patient has no known problems. Allergies, Adverse Reactions, Alerts This patient has no known allergies or adverse reactions. Medications This patient has no known medications. 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 The assessment of nucleolar prominence as a single parameter is noted to correlate better with outcome than other nuclear parameters (size, shape) to assign a Dami grade. ("Urologic Surgical Pathology," Janelle, third edition, 2014). Nuclear grade assigned in Synoptic portion of this report (tw, can include).This patient's previous biopsy from [facility], from 03/02/2017 ([id number]) shows a core biopsy with features similar [...] Additional Pathological Findings: Cyst(s): Simple cortical cyst 98707 X 2, 62275, 65201 x6Left renal massA. Retroperitoneal lymph node. B. [...] positive; AE1/AE3-positive; RICHARD and CK 7-focally positive; OC15-fzcfedpb CD10 equivocal, possibly focally positiveThe immunohistochemistry test was developed and its performance characteristics determined by [facility], Pathology Laboratory. It has not been cleared [...] Comments SODIUM (BEAKER) (test 135 meq/L 136-145 thyp=159) POTASSIUM (BEAKER) (test 3.6 meq/L 3.5-5.1 folv=651) CHLORIDE (BEAKER) (test 98 meq/L 98-107 mjus=515) CO2 (BEAKER) (test rtax=851) 22 meq/L 22-29 BLOOD UREA NITROGEN (BEAKER) 45 mg/dL 7-21 (test dyeu=070) CREATININE (BEAKER) (test 3.68 mg/dL 0.57-1.25 pcqb=069) GLUCOSE RANDOM (BEAKER) 157 mg/dL 70-105 (test pqbj=849) CALCIUM (BEAKER) (test 9.5 mg/dL 8.4-10.2 lxit=602) EGFR (BEAKER) (test 20 mL/min/1.73 sq m ESTIMATED GFR IS NOT qksn=2300) ACCURATE CREATININE CLEARANCE IN PREDICTING GLOMERULAR FILTRATION RATE. ESTIMATED GFR IS NOT APPLICABLE FOR DIALYSIS PATIENTS. CBC W/PLT COUNT & AUTO [id number] 12:44:00 Test Item Value Reference Range Comments WHITE BLOOD CELL COUNT (BEAKER) (test vvij=720) 5.0 K/ L 3.5-10.5 RED BLOOD CELL COUNT (BEAKER) (test bfnh=516) 4.98 M/ L 4.63-6.08 HEMOGLOBIN (BEAKER) (test vwvm=609) 14.6 GM/DL 13.7-17.5 HEMATOCRIT (BEAKER) (test mkjw=437) 43.0 % 40.1-51.0 MEAN CORPUSCULAR VOLUME (BEAKER) (test uaul=163) 86.3 fL 79.0-92.2 MEAN CORPUSCULAR HEMOGLOBIN (BEAKER) (test 29.3 pg 25.7-32.2 cnjv=332) MEAN CORPUSCULAR HEMOGLOBIN CONC (BEAKER) (test 34.0 GM/DL 32.3-36.5 giym=420) RED CELL DISTRIBUTION WIDTH (BEAKER) (test 13.0 % 11.6-14.4 hhaw=315) PLATELET COUNT (BEAKER) (test wcpb=994) 252 K/CU MM 150-450 MEAN PLATELET VOLUME (BEAKER) (test fvgl=726) 9.7 fL 9.4-12.4 NUCLEATED RED BLOOD CELLS (BEAKER) (test 0 /100 WBC 0-0 zrzk=781) NEUTROPHILS RELATIVE PERCENT (BEAKER) (test 71 % gdru=993) LYMPHOCYTES RELATIVE PERCENT (BEAKER) (test 18 % taed=584) MONOCYTES RELATIVE PERCENT (BEAKER) (test 9 % abfx=197) EOSINOPHILS RELATIVE PERCENT (BEAKER) (test 1 % vqef=783) BASOPHILS RELATIVE PERCENT (BEAKER) (test 1 % thzr=492) NEUTROPHILS ABSOLUTE COUNT (BEAKER) (test 3.52 K/ L 1.78-5.38 wbdk=746) LYMPHOCYTES ABSOLUTE COUNT (BEAKER) (test 0.87 K/ L 1.32-3.57 rqmq=021) MONOCYTES ABSOLUTE COUNT (BEAKER) (test 0.46 K/ L 0.30-0.82 ypot=947) EOSINOPHILS ABSOLUTE COUNT (BEAKER) (test 0.05 K/ L 0.04-0.54 cxix=689) BASOPHILS ABSOLUTE COUNT (BEAKER) (test 0.05 K/ L 0.01-0.08 vmgk=637) IMMATURE GRANULOCYTES-RELATIVE PERCENT (BEAKER) 0 % 0-1 (test plzi=4194) BASIC METABOLIC [id number] 15:02:00 Test Item Value Reference Range Comments SODIUM (BEAKER) (test 132 meq/L 136-145 aksj=902) POTASSIUM (BEAKER) (test 3.8 meq/L 3.5-5.1 llhy=776) CHLORIDE (BEAKER) (test 97 meq/L 98-107 qdrb=611) CO2 (BEAKER) (test 24 meq/L 22-29 mncv=796) BLOOD UREA NITROGEN 42 mg/dL 7-21 (BEAKER) (test qsjz=153) CREATININE (BEAKER) (test 3.78 mg/dL 0.57-1.25 adga=034) GLUCOSE RANDOM (BEAKER) 108 mg/dL 70-105 (test tbvf=459) CALCIUM (BEAKER) (test 9.4 mg/dL 8.4-10.2 udcf=254) EGFR (BEAKER) (test 20 mL/min/1.73 sq m ESTIMATED GFR IS NOT buho=8746) ACCURATE CREATININE CLEARANCE IN PREDICTING GLOMERULAR FILTRATION RATE. ESTIMATED GFR IS NOT APPLICABLE FOR DIALYSIS PATIENTS. Please draw at 2:00pmBASI METABOLIC [id number] 06:14:00 Test Item Value Reference Range Comments SODIUM (BEAKER) (test 133 meq/L 136-145 sqlz=594) POTASSIUM (BEAKER) (test 3.8 meq/L 3.5-5.1 cjfy=771) CHLORIDE (BEAKER) (test 100 meq/L 98-107 onuo=142) CO2 (BEAKER) (test 23 meq/L 22-29 pmmg=049) BLOOD UREA NITROGEN 33 mg/dL 7-21 (BEAKER) (test ffti=778) CREATININE (BEAKER) (test 3.27 mg/dL 0.57-1.25 wxqo=888) GLUCOSE RANDOM (BEAKER) 87 mg/dL 70-105 (test qadz=965) CALCIUM (BEAKER) (test 9.0 mg/dL 8.4-10.2 ydup=407) EGFR (BEAKER) (test 23 mL/min/1.73 sq m ESTIMATED GFR IS NOT bgms=3452) ACCURATE CREATININE CLEARANCE IN PREDICTING GLOMERULAR FILTRATION RATE. ESTIMATED GFR IS NOT APPLICABLE FOR DIALYSIS PATIENTS. [id number] 06:03:00 Test Item Value Reference Range Comments PHOSPHORUS (BEAKER) (test hzmb=179) 2.7 mg/dL 2.3-4.7 [id number] 06:03:00 Test Item Value Reference Range Comments MAGNESIUM (BEAKER) (test erzg=035) 2.1 mg/dL 1.6-2.6 CBC W/PLT COUNT & AUTO [id number] 05:16:00 Test Item Value Reference Range Comments WHITE BLOOD CELL COUNT (BEAKER) (test dgpn=501) 6.7 K/ L 3.5-10.5 RED BLOOD CELL COUNT (BEAKER) (test guix=103) 4.59 M/ L 4.63-6.08 HEMOGLOBIN (BEAKER) (test ubaf=307) 13.6 GM/DL 13.7-17.5 HEMATOCRIT (BEAKER) (test yxgz=211) 39.8 % 40.1-51.0 MEAN CORPUSCULAR VOLUME (BEAKER) (test fipe=082) 86.7 fL 79.0-92.2 MEAN CORPUSCULAR HEMOGLOBIN (BEAKER) (test 29.6 pg 25.7-32.2 yles=053) MEAN CORPUSCULAR HEMOGLOBIN CONC (BEAKER) (test 34.2 GM/DL 32.3-36.5 zpjd=290) RED CELL DISTRIBUTION WIDTH (BEAKER) (test 13.2 % 11.6-14.4 jkwy=220) PLATELET COUNT (BEAKER) (test crbe=992) 209 K/CU MM 150-450 MEAN PLATELET VOLUME (BEAKER) (test buay=211) 10.2 fL 9.4-12.4 NUCLEATED RED BLOOD CELLS (BEAKER) (test 0 /100 WBC 0-0 oplj=725) NEUTROPHILS RELATIVE PERCENT (BEAKER) (test 71 % xogc=509) LYMPHOCYTES RELATIVE PERCENT (BEAKER) (test 16 % kigm=905) MONOCYTES RELATIVE PERCENT (BEAKER) (test 12 % ckix=008) EOSINOPHILS RELATIVE PERCENT (BEAKER) (test 1 % okpr=028) BASOPHILS RELATIVE PERCENT (BEAKER) (test 0 % vqbr=770) NEUTROPHILS ABSOLUTE COUNT (BEAKER) (test 4.75 K/ L 1.78-5.38 pokt=543) LYMPHOCYTES ABSOLUTE COUNT (BEAKER) (test 1.07 K/ L 1.32-3.57 mtdz=631) MONOCYTES ABSOLUTE COUNT (BEAKER) (test 0.77 K/ L 0.30-0.82 ljnz=884) EOSINOPHILS ABSOLUTE COUNT (BEAKER) (test 0.06 K/ L 0.04-0.54 vpxp=125) BASOPHILS ABSOLUTE COUNT (BEAKER) (test 0.03 K/ L 0.01-0.08 auka=542) IMMATURE GRANULOCYTES-RELATIVE PERCENT (BEAKER) 0 % 0-1 (test yalr=7850) IRON, TIBC, % SAT. (WITHOUT FERRITIN)2017-10-11 06:55:00 Test Item Value Reference Range Comments IRON (BEAKER) (test pgyn=430) 49 ug/dL 40-160 TOTAL IRON BINDING CAPACITY (BEAKER) (test 236 ug/dL 250-450 binf=566) IRON % SATURATION (2) (BEAKER) (test wysu=8651) 21 % 20-55 BASIC METABOLIC [id number] 05:41:00 Test Item Value Reference Range Comments SODIUM (BEAKER) (test 136 meq/L 136-145 pogj=034) POTASSIUM (BEAKER) (test 3.7 meq/L 3.5-5.1 xtdf=363) CHLORIDE (BEAKER) (test 102 meq/L 98-107 gelm=984) CO2 (BEAKER) (test 22 meq/L 22-29 efam=474) BLOOD UREA NITROGEN 25 mg/dL 7-21 (BEAKER) (test ggmw=619) CREATININE (BEAKER) (test 2.84 mg/dL 0.57-1.25 xhnh=774) GLUCOSE RANDOM (BEAKER) 99 mg/dL 70-105 (test eajx=621) CALCIUM (BEAKER) (test 9.4 mg/dL 8.4-10.2 qrmy=679) EGFR (BEAKER) (test 27 mL/min/1.73 sq m ESTIMATED GFR IS NOT dmcj=0350) ACCURATE CREATININE CLEARANCE IN PREDICTING GLOMERULAR FILTRATION RATE. ESTIMATED GFR IS NOT APPLICABLE FOR DIALYSIS PATIENTS. [id number] 05:36:00 Test Item Value Reference Range Comments PHOSPHORUS (BEAKER) (test gsbo=715) 2.8 mg/dL 2.3-4.7 [id number] 05:36:00 Test Item Value Reference Range Comments MAGNESIUM (BEAKER) (test qnil=670) 2.2 mg/dL 1.6-2.6 PTH, [id number] 05:33:00 Test Item Value Reference Range Comments PARATHYROID HORMONE INTACT (BEAKER) (test 212.3 pg/mL 8.5-72.5 dyor=184) CBC W/PLT COUNT & AUTO [id number] 05:02:00 Test Item Value Reference Range Comments WHITE BLOOD CELL COUNT (BEAKER) (test gtvg=981) 8.8 K/ L 3.5-10.5 RED BLOOD CELL COUNT (BEAKER) (test fhlk=237) 4.89 M/ L 4.63-6.08 HEMOGLOBIN (BEAKER) (test nrqx=592) 14.5 GM/DL 13.7-17.5 HEMATOCRIT (BEAKER) (test fpbr=785) 42.6 % 40.1-51.0 MEAN CORPUSCULAR VOLUME (BEAKER) (test drcm=050) 87.1 fL 79.0-92.2 MEAN CORPUSCULAR HEMOGLOBIN (BEAKER) (test 29.7 pg 25.7-32.2 tltt=485) MEAN CORPUSCULAR HEMOGLOBIN CONC (BEAKER) (test 34.0 GM/DL 32.3-36.5 tdhu=550) RED CELL DISTRIBUTION WIDTH (BEAKER) (test 13.5 % 11.6-14.4 tpiy=858) PLATELET COUNT (BEAKER) (test jsng=452) 205 K/CU MM 150-450 MEAN PLATELET VOLUME (BEAKER) (test kjpa=689) 9.9 fL 9.4-12.4 NUCLEATED RED BLOOD CELLS (BEAKER) (test 0 /100 WBC 0-0 tzwt=728) NEUTROPHILS RELATIVE PERCENT (BEAKER) (test 76 % ublj=280) LYMPHOCYTES RELATIVE PERCENT (BEAKER) (test 13 % kwpr=437) MONOCYTES RELATIVE PERCENT (BEAKER) (test 9 % shtq=192) EOSINOPHILS RELATIVE PERCENT (BEAKER) (test 0 % jycu=576) BASOPHILS RELATIVE PERCENT (BEAKER) (test 1 % uxcq=946) NEUTROPHILS ABSOLUTE COUNT (BEAKER) (test 6.68 K/ L 1.78-5.38 kifd=485) LYMPHOCYTES ABSOLUTE COUNT (BEAKER) (test 1.17 K/ L 1.32-3.57 dtnz=525) MONOCYTES ABSOLUTE COUNT (BEAKER) (test 0.82 K/ L 0.30-0.82 ltqi=635) EOSINOPHILS ABSOLUTE COUNT (BEAKER) (test 0.02 K/ L 0.04-0.54 bygu=477) BASOPHILS ABSOLUTE COUNT (BEAKER) (test 0.05 K/ L 0.01-0.08 llbv=814) IMMATURE GRANULOCYTES-RELATIVE PERCENT (BEAKER) 0 % 0-1 (test umgo=1867) [id number] 06:36:00 Test Item Value Reference Range Comments PHOSPHORUS (BEAKER) (test ouww=554) 2.4 mg/dL 2.3-4.7 [id number] 06:36:00 Test Item Value Reference Range Comments MAGNESIUM (BEAKER) (test ezpy=483) 1.8 mg/dL 1.6-2.6 BASIC METABOLIC [id number] 06:36:00 Test Item Value Reference Range Comments SODIUM (BEAKER) (test 137 meq/L 136-145 druc=081) POTASSIUM (BEAKER) (test 3.6 meq/L 3.5-5.1 wcwq=390) CHLORIDE (BEAKER) (test 103 meq/L 98-107 rumi=991) CO2 (BEAKER) (test 19 meq/L 22-29 paqq=467) BLOOD UREA NITROGEN 22 mg/dL 7-21 (BEAKER) (test adlr=446) CREATININE (BEAKER) (test 2.53 mg/dL 0.57-1.25 fqui=782) GLUCOSE RANDOM (BEAKER) 148 mg/dL 70-105 (test xclw=350) CALCIUM (BEAKER) (test 9.3 mg/dL 8.4-10.2 cuaa=677) EGFR (BEAKER) (test 31 mL/min/1.73 sq m ESTIMATED GFR IS NOT hdhz=5113) ACCURATE CREATININE CLEARANCE IN PREDICTING GLOMERULAR FILTRATION RATE. ESTIMATED GFR IS NOT APPLICABLE FOR DIALYSIS PATIENTS. CBC W/PLT COUNT & AUTO [id number] 05:59:00 Test Item Value Reference Range Comments WHITE BLOOD CELL COUNT (BEAKER) (test mcmd=766) 13.3 K/ L 3.5-10.5 RED BLOOD CELL COUNT (BEAKER) (test bvzu=529) 5.12 M/ L 4.63-6.08 HEMOGLOBIN (BEAKER) (test cftv=880) 14.8 GM/DL 13.7-17.5 HEMATOCRIT (BEAKER) (test paxh=004) 44.7 % 40.1-51.0 MEAN CORPUSCULAR VOLUME (BEAKER) (test misn=723) 87.3 fL 79.0-92.2 MEAN CORPUSCULAR HEMOGLOBIN (BEAKER) (test 28.9 pg 25.7-32.2 zxoc=986) MEAN CORPUSCULAR HEMOGLOBIN CONC (BEAKER) (test 33.1 GM/DL 32.3-36.5 ckpf=539) RED CELL DISTRIBUTION WIDTH (BEAKER) (test 13.4 % 11.6-14.4 yxno=238) PLATELET COUNT (BEAKER) (test tpvr=047) 235 K/CU MM 150-450 MEAN PLATELET VOLUME (BEAKER) (test vevm=667) 10.8 fL 9.4-12.4 NUCLEATED RED BLOOD CELLS (BEAKER) (test 0 /100 WBC 0-0 kcsh=418) NEUTROPHILS RELATIVE PERCENT (BEAKER) (test 93 % atgc=785) LYMPHOCYTES RELATIVE PERCENT (BEAKER) (test 3 % ynpy=675) MONOCYTES RELATIVE PERCENT (BEAKER) (test 3 % lgas=575) EOSINOPHILS RELATIVE PERCENT (BEAKER) (test 0 % jtqc=398) BASOPHILS RELATIVE PERCENT (BEAKER) (test 0 % gkik=950) NEUTROPHILS ABSOLUTE COUNT (BEAKER) (test 12.42 K/ L 1.78-5.38 hfgg=129) LYMPHOCYTES ABSOLUTE COUNT (BEAKER) (test 0.39 K/ L 1.32-3.57 rlqc=452) MONOCYTES ABSOLUTE COUNT (BEAKER) (test 0.43 K/ L 0.30-0.82 zjix=945) EOSINOPHILS ABSOLUTE COUNT (BEAKER) (test 0.00 K/ L 0.04-0.54 ttlc=508) BASOPHILS ABSOLUTE COUNT (BEAKER) (test 0.04 K/ L 0.01-0.08 tozu=790) IMMATURE GRANULOCYTES-RELATIVE PERCENT (BEAKER) 0 % 0-1 (test xrvf=5817) [id number] 19:38:00 Test Item Value Reference Range Comments PHOSPHORUS (BEAKER) (test rwvw=159) 2.8 mg/dL 2.3-4.7 [id number] 19:38:00 Test Item Value Reference Range Comments MAGNESIUM (BEAKER) (test yoqk=435) 1.7 mg/dL 1.6-2.6 BASIC METABOLIC [id number] 19:35:00 Test Item Value Reference Range Comments SODIUM (BEAKER) (test 139 meq/L 136-145 ymro=718) POTASSIUM (BEAKER) (test 3.7 meq/L 3.5-5.1 dlwx=600) CHLORIDE (BEAKER) (test 109 meq/L 98-107 iroj=225) CO2 (BEAKER) (test 20 meq/L 22-29 wqvo=174) BLOOD UREA NITROGEN 18 mg/dL 7-21 (BEAKER) (test knvb=968) CREATININE (BEAKER) (test 2.10 mg/dL 0.57-1.25 ybwf=975) GLUCOSE RANDOM (BEAKER) 148 mg/dL 70-105 (test opnr=277) CALCIUM (BEAKER) (test 8.7 mg/dL 8.4-10.2 hxbl=287) EGFR (BEAKER) (test 39 mL/min/1.73 sq m ESTIMATED GFR IS NOT ljmo=9248) ACCURATE CREATININE CLEARANCE IN PREDICTING GLOMERULAR FILTRATION RATE. ESTIMATED GFR IS NOT APPLICABLE FOR DIALYSIS PATIENTS. HEMOGLOBIN AND [id number] 19:07:00 Test Item Value Reference Range Comments HEMOGLOBIN (BEAKER) (test ymph=195) 13.7 GM/DL 13.7-17.5 HEMATOCRIT (BEAKER) (test eyug=704) 40.5 % 40.1-51.0 URINE [id number] 13:12:00 Test Item Value Reference Range Comments CULTURE (BEAKER) (test xlxd=1926) No growth BASIC METABOLIC [id number] 17:19:00 Test Item Value Reference Range Comments SODIUM (BEAKER) (test 138 meq/L 136-145 jgdu=928) POTASSIUM (BEAKER) (test 4.4 meq/L 3.5-5.1 Specimen slightly hfwi=896) hemolyzed CHLORIDE (BEAKER) (test 103 meq/L 98-107 tbqk=272) CO2 (BEAKER) (test 27 meq/L 22-29 oauf=900) BLOOD UREA NITROGEN 19 mg/dL 7-21 (BEAKER) (test mwhz=506) CREATININE (BEAKER) (test 2.11 mg/dL 0.57-1.25 Specimen slightly lefp=968) hemolyzed GLUCOSE RANDOM (BEAKER) 98 mg/dL 70-105 (test ihxa=804) CALCIUM (BEAKER) (test 9.6 mg/dL 8.4-10.2 xabw=634) EGFR (BEAKER) (test 38 mL/min/1.73 sq m ESTIMATED GFR IS NOT fjfb=9327) ACCURATE CREATININE CLEARANCE IN PREDICTING GLOMERULAR FILTRATION RATE. ESTIMATED GFR IS NOT APPLICABLE FOR DIALYSIS PATIENTS. URINALYSIS W/ [id number] 17:15:00 Test Item Value Reference Range Comments COLOR (BEAKER) (test keqt=853) Yellow CLARITY (BEAKER) (test hlzh=638) Clear SPECIFIC GRAVITY UA (BEAKER) (test tosa=528) 1.013 1.001-1.035 PH UA (BEAKER) (test eodo=670) 6.0 5.0-8.0 PROTEIN UA (BEAKER) (test ygyn=435) 100 mg/dL Negative GLUCOSE UA (BEAKER) (test ktls=105) Negative Negative KETONES UA (BEAKER) (test ayxb=778) Negative Negative BILIRUBIN UA (BEAKER) (test yacz=214) Negative Negative BLOOD UA (BEAKER) (test mvzp=621) Trace Negative NITRITE UA (BEAKER) (test irns=771) Negative Negative LEUKOCYTE ESTERASE UA (BEAKER) (test hljy=825) Negative Negative UROBILINOGEN UA (BEAKER) (test zzlf=279) 0.2 mg/dL 0.2-1.0 RBC UA (BEAKER) (test jryp=390) 7 /HPF WBC UA (BEAKER) (test jqzw=459) 2 /HPF MUCUS (BEAKER) (test uwfn=8199) Rare SOURCE(BEAKER) (test icrb=9442) [id number] 17:07:00 Test Item Value Reference Range Comments PARTIAL THROMBOPLASTIN TIME (BEAKER) (test 28.1 seconds 22.5-36.0 tsvv=012) PROTHROMBIN TIME/[id number] 17:06:00 Test Item Value Reference Range Comments PROTIME (BEAKER) (test sabx=939) 13.6 seconds 11.7-14.7 INR (BEAKER) (test tecb=229) 1.0 <=5.9 RECOMMENDED COUMADIN/WARFARIN INR THERAPY RANGESSTANDARD DOSE: 2.0 - 3.0 Includes: PROPHYLAXIS forvenous thrombosis, systemic embolization; TREATMENT for venous thrombosis and/or pulmonary embolus.HIGH RISK: Target INR is 2.5-3.5 for patients with mechanical heart valves.CBC W/PLT COUNT & AUTO [id number] 16:53:00 Test Item Value Reference Range Comments WHITE BLOOD CELL COUNT (BEAKER) (test fjen=067) 4.1 K/ L 3.5-10.5 RED BLOOD CELL COUNT (BEAKER) (test aqlr=422) 4.79 M/ L 4.63-6.08 HEMOGLOBIN (BEAKER) (test bhpv=740) 13.8 GM/DL 13.7-17.5 HEMATOCRIT (BEAKER) (test pxgw=439) 42.2 % 40.1-51.0 MEAN CORPUSCULAR VOLUME (BEAKER) (test poin=900) 88.1 fL 79.0-92.2 MEAN CORPUSCULAR HEMOGLOBIN (BEAKER) (test 28.8 pg 25.7-32.2 xndb=198) MEAN CORPUSCULAR HEMOGLOBIN CONC (BEAKER) (test 32.7 GM/DL 32.3-36.5 yggo=115) RED CELL DISTRIBUTION WIDTH (BEAKER) (test 13.2 % 11.6-14.4 woxh=411) PLATELET COUNT (BEAKER) (test dgjk=726) 188 K/CU MM 150-450 MEAN PLATELET VOLUME (BEAKER) (test keql=692) 10.3 fL 9.4-12.4 NUCLEATED RED BLOOD CELLS (BEAKER) (test 0 /100 WBC 0-0 qjtn=358) NEUTROPHILS RELATIVE PERCENT (BEAKER) (test 49 % wkna=446) LYMPHOCYTES RELATIVE PERCENT (BEAKER) (test 36 % trtv=551) MONOCYTES RELATIVE PERCENT (BEAKER) (test 12 % xdam=653) EOSINOPHILS RELATIVE PERCENT (BEAKER) (test 2 % pjwp=403) BASOPHILS RELATIVE PERCENT (BEAKER) (test 1 % tpaf=282) NEUTROPHILS ABSOLUTE COUNT (BEAKER) (test 2.00 K/ L 1.78-5.38 bpop=340) LYMPHOCYTES ABSOLUTE COUNT (BEAKER) (test 1.47 K/ L 1.32-3.57 mcrq=159) MONOCYTES ABSOLUTE COUNT (BEAKER) (test 0.49 K/ L 0.30-0.82 bidg=518) EOSINOPHILS ABSOLUTE COUNT (BEAKER) (test 0.07 K/ L 0.04-0.54 zcdj=169) BASOPHILS ABSOLUTE COUNT (BEAKER) (test 0.03 K/ L 0.01-0.08 pzly=407) IMMATURE GRANULOCYTES-RELATIVE PERCENT (BEAKER) 0 % 0-1 (test vpwz=7894) TISSUE [id number] 11:47:00Surgical Pathology Report Case: [id number] Authorizing Provider: Malcom Castaneda Collected: 03/02/2017 1029 MD Cinthia [facility]ing[facility] Diagnostic Imaging Received: 2016 1140 Pathologist: Jenniffer [...] Intradepartmental consultation: Dr. Koko Whitney, Dr. Umu Manzanares/[id number] , [id number], [id number] x2Left kidney [facility] massThe specimen is received in [...] developed and its performance characteristics determined by [facility], Pathology Laboratory. It has not been cleared [...] qualified to perform high complexity clinical laboratory testing.[id number] 08:19:00 Test Item Value Reference Range Comments PROTIME (BEAKER) (test kfau=598) 10.0 seconds 9.3-12.0 INR (BEAKER) (test sglv=081) 0.9 <=5.9 PARTIAL THROMBOPLASTIN TIME (BEAKER) (test 27.3 seconds 23.0-35.0 goze=144) RECOMMENDED COUMADIN/WARFARIN INR THERAPY RANGESSTANDARD DOSE: 2.0 - 3.0 Includes: PROPHYLAXIS forvenous thrombosis, systemic embolization; TREATMENT for venous thrombosis and/or pulmonary embolus.HIGH RISK: Target INR is 2.5-3.5 for patients with mechanical heart valves.CBC W/PLT COUNT & AUTO [id number] 08:14:00 Test Item Value Reference Range Comments WHITE BLOOD CELL COUNT (BEAKER) (test ryty=435) 4.3 K/ L 4.0-10.0 RED BLOOD CELL COUNT (BEAKER) (test yhnm=802) 4.76 M/ L 4.20-5.80 HEMOGLOBIN (BEAKER) (test puug=231) 14.1 GM/DL 13.0-16.8 HEMATOCRIT (BEAKER) (test lhem=717) 41.7 % 40.0-50.0 MEAN CORPUSCULAR VOLUME (BEAKER) (test ikfm=428) 87.6 fL 82.0-98.0 MEAN CORPUSCULAR HEMOGLOBIN (BEAKER) (test 29.7 pg 27.0-33.0 uqoc=767) MEAN CORPUSCULAR HEMOGLOBIN CONC (BEAKER) (test 33.9 GM/DL 32.0-36.0 vbdo=817) RED CELL DISTRIBUTION WIDTH (BEAKER) (test 12.9 % 10.3-14.2 ahas=503) PLATELET COUNT (BEAKER) (test qaga=637) 212 K/CU MM 150-430 MEAN PLATELET VOLUME (BEAKER) (test djzh=911) 8.0 fL 6.5-10.5 NUCLEATED RED BLOOD CELLS (BEAKER) (test 0 /100 WBC 0-0 nedz=610) NEUTROPHILS RELATIVE PERCENT (BEAKER) (test 57 % xdkr=465) LYMPHOCYTES RELATIVE PERCENT (BEAKER) (test 32 % lbbx=878) MONOCYTES RELATIVE PERCENT (BEAKER) (test 9 % ujtl=514) EOSINOPHILS RELATIVE PERCENT (BEAKER) (test 2 % kfxg=157) BASOPHILS RELATIVE PERCENT (BEAKER) (test 1 % hsxv=587) NEUTROPHILS ABSOLUTE COUNT (BEAKER) (test 2.50 K/ L 1.80-8.00 zcpd=917) LYMPHOCYTES ABSOLUTE COUNT (BEAKER) (test 1.40 K/ L 1.48-4.50 nyoo=263) MONOCYTES ABSOLUTE COUNT (BEAKER) (test 0.40 K/ L 0.00-1.30 bykw=178) EOSINOPHILS ABSOLUTE COUNT (BEAKER) (test 0.10 K/ L 0.00-0.50 tbfm=753) BASOPHILS ABSOLUTE COUNT (BEAKER) (test 0.00 K/ L 0.00-0.20 xzkt=704)
--- NOTE | 2019-03-27 16:34 | RAD REPORT ---
EXAM DESCRIPTION: CT - Ct Stroke Brain Wo Cont - 03/27/2019 4:23 pm CLINICAL HISTORY: Confusion/ dizziness COMPARISON: January, TECHNIQUE: Computed axial tomography of the head was obtained. All CT scans are performed using dose optimization technique as appropriate and may include automated exposure control or mA/KV adjustment according to patient size. FINDINGS: An intracranial bleed is not seen . The ventricles are normal in caliber. No extra-axial fluid collection is noted. A 8 millimeter low-density area within the left thalamus bedolla s the appearance of an old lacunar infarction. Marked -density within periventricular, deep and subcortical white matter likely ischemic changes sec ondary to small vessel disease Fluid within the sinuses/ mastoids is not seen. IMPRESSION: No acute intracranial abnormality is seen. If patient's symptoms persist MRI of the bra in would be recommended. Abdullahi of the emergency room was notified at 4:27 p.m. March 27, 2019
[2019-03-27 16:45] LABS: Absolute Lymphocytes (CBC) 2.6 K/uL (0.7-4.9); Basophils % 0.3 % (0-1.3); Hematocrit 41.7 % (39.6-49.0); Lymphocytes % 24.3 % (15.3-44.8); MPV 8.4 fL (7.6-11.3); RBC Red Blood Cell Count 4.58 M/uL (4.33-5.43)
[2019-03-27 16:49] LABS: Protime INR 0.95
[2019-03-27 17:00] LABS: BUN Blood Urea Nitrogen 26 mg/dL (7-18); Bicarbonate 23 mmol/L (21-32); Glucose Level 135 mg/dL (74-106); Lipase 267 U/L (73-393); Magnesium 2.3 mg/dL (1.8-2.4); Potassium 3.1 mmol/L (3.5-5.1); Sodium Level 145 mmol/L (136-145); Troponin (Emerg Dept Use Only) < 0.02 ng/mL (0.0-0.045)
--- NOTE | 2019-03-27 18:07 | RAD REPORT ---
EXAM DESCRIPTION: [facility] Single View03/27/2019 5:29 pm CLINICAL HISTORY: Chest pain COMPARISON: 01/2019 FINDINGS: The lungs appear clear of acute infiltrate. The heart is mildly enlarged IMPRESSION: No acute abnormalities displayed
--- NOTE | 2019-03-27 18:58 | RAD REPORT ---
EXAM DESCRIPTION: MRI - Brain Wo Cont - 03/27/2019 6:36 pm CLINICAL HISTORY: Slurred speech COMPARISON: none TECHNIQUE: Axial, sagittal, and coronal magnetic images of the brain were obtained. Contrast was not requested FINDINGS: Diffusion weighted/ADC mapping reveals a 4 centimeter area of abnormal signal within the m edial right cerebellum compatible with an acute infarction Marked signal within periventricular, deep and subcortical white matter probably ischemic changes sec ondary to small vessel disease . Small abnormal signal within the thalami and basal ganglia likely old lacunar infarcts The ventricles are normal caliber. An extra-axial fluid collection is not present The sinuses and mastoids are clear. IMPRESSION: Acute right cerebellar infarct Abdullahi in the emergency room notified
[2019-03-27] MEDS ORDERED: ASPIRIN 81 MG CHEWABLE TABLET ONE (19:12)
[2019-03-27] MEDS ORDERED: CLOPIDOGREL 75 MG TABLET ONE (19:12)
[2019-03-27] MEDS ORDERED: FOLIC ACID 5 MG/ML VIAL ONE (19:13)
[2019-03-27] MEDS ORDERED: ACETAMINOPHEN 500 MG TAB PO PRN (19:15)
[2019-03-27] MEDS ORDERED: ONDANSETRON 4 MG/2 ML VIAL IV PRN (19:15)
--- NOTE | 2019-03-27 19:21 | ER ---
Nurse's Notes [facility] Name: Aravind Low Age: 68 yrs Sex: Male : 1950 Arrival Date: 03/27/2019 Time: 16:08 Bed 4 Private MD: Diagnosis: Cerebellar stroke syndrome Presentation: 03/27 16:08 Presenting complaint: EMS states: sudden onset pale cool diaphoretic about an hour [employer]. dm5 BP 191/95, pt reported to be lethargic. Transition of care: patient was not received from another setting of care. Onset of symptoms was March 27, 2019 at 15:00. Risk Assessment: Do you want to hurt yourself or someone else? Unable to obtain. 16:08 Acuity: ANTONIO 1 dm5 16:08 Method Of Arrival: EMS: [facility] dm5 16:26 An acute neurological deficit is present. The charge nurse has been notified. The jl7 patients blood glucose was checked before arriving to the hospital and was found to be normal. Initial Sepsis Screen: Does the patient meet any 2 criteria? No. Patient's initial sepsis screen is negative. Does the patient have a suspected source of infection? No. Patient's initial sepsis screen is negative. Care prior to arrival: IV initiated. 20 GA, in the left antecubital area. Triage Assessment: 16:28 The onset of the patients symptoms was March 27, 2019 at 15:00. General: Appears jl7 ill, Behavior is cooperative, listless. Pain: Denies pain. Neuro: Level of Consciousness is lethargic, Oriented to person, place, Weakness in left hand(s) Speech is slurred, Facial symmetry appears normal, Reports Nausea. Cardiovascular: Heart tones present Patient's skin is warm and dry. Respiratory: Airway is patent Respiratory effort is even, unlabored, Respiratory pattern is regular, symmetrical, Breath sounds are clear bilaterally. GI: Reports nausea, vomiting. Derm: Skin is dry, Skin is normal, Skin temperature is cool. Stroke Activation: Physician: Stroke Attending; Name: ; Notified At: ; Arrived At: Physician: Chief Stroke Resident; Name: ; Notified At: ; Arrived At: Physician: Stroke Resident; Name: ; Notified At: ; Arrived At: Physician: ED Attending; Name: Dr. Panchal; Notified At: 16:10; Arrived At: Physician: ED Resident; Name: ; Notified At: ; Arrived At: Historical: - Allergies: 16:28 No Known Allergies; jl7 - Home Meds: 16:28 allopurinol 100 mg Oral tab 1 tab 2 times per day [Active]; clonidine HCl 0.3 mg Oral jl7 tab 1 tab 2 times per day [Active]; nifedipine 30 mg Oral TbER 1 tab once daily [Active]; Vitamin D Oral [Active]; - PMHx: 16:28 Hypertension; Gout; jl7 - PSHx: 16:28 left kidney removed; jl7 - Immunization history:: Adult Immunizations unknown. - Social history:: Smoking status: unknown. - Ebola Screening: : No symptoms or risks identified at this time. Screenin:49 Abuse screen: Denies threats or abuse. Denies injuries from another. Nutritional jl7 screening: No deficits noted. Tuberculosis screening: No symptoms or risk factors identified. Fall Risk No fall in past 12 months (0 pts). Secondary diagnosis (15 points) altered. IV access (20 points). Mental Status- Overestimates/Forgets Limitations (15 pts.). Total Mar Fall Scale indicates High Risk Score (45 or more points). Fall prevention measures have been instituted. Side Rails Up X 2 Placed Close to Nursing Station Frequent Obs/Assessments Occuring Family Present and informed to notify staff if the need to leave the bedside As available patient and family educated on Fall Prevention Program and Strategies. Assessment: 16:17 Reassessment: Patient to CT at this time VIA stretcher accompanied by EVELINA Pantoja. ss 16:35 VAN Scoring: Arm Drift: Patients demonstrates NO arm weakness. Patient is VAN Negative. jl7 The patient has not been NPO before screening. The patient is currently on the following diet: Regular The patient is not alert and/or unable to follow commands. Bedside swallow screen discontinued. Patient kept NPO until cleared by Speech Therapy or Physician. fail fail fail fail fail fail The patient failed the bedside swallow screening. The patient will be kept NPO until cleared by Speech Therapy or Physician. Provider notified of bedside swallow screening results: Abdullahi RAHMAN. T-PA (Activase) Screening:. 18:11 Reassessment: PT TO MRI WITH SENIOR ORACLE APPLICATIONS DEVELOPER. bp 19:15 Reassessment: Patient appears in no apparent distress at this time. No changes from wh previously documented assessment. Patient and/or family updated on plan of care and expected duration. Pain level reassessed. Patient is alert, oriented x 3, equal unlabored respirations, skin warm/dry/pink. Swallow eval done, Pt tolerated oral meds. 20:47 Reassessment: Patient appears in no apparent distress at this time. No changes from previously documented assessment. Patient and/or family updated on plan of care and expected duration. Pain level reassessed. Patient is alert, oriented x 3, equal unlabored respirations, skin warm/dry/pink. Vital Signs: 16:15 BP 169 / 95; Pulse 52; Resp 14 S; Pulse Ox 98% on R/A; jl7 17:00 BP 165 / 88; Pulse 82; Resp 18; Pulse Ox 98% ; bp 18:11 BP 168 / 78; Pulse 84; Resp 16; Pulse Ox 98% ; bp 19:30 BP 188 / 99; Pulse 81; Resp 18; Pulse Ox 98% on R/A; 19:43 Temp 97.5(O); lp1 20:30 BP 161 / 88; Pulse 68; Resp 18; Pulse Ox 99% on R/A; NIH Stroke Scale Scores: 16:15 NIHSS Score: 1 jl7 16:17 NIHSS Score: 1 jr8 ED Course: 16:08 Patient arrived in ED. dm5 16:13 Triage completed. dm5 16:14 Abdullahi Magana PA is PHCP. jr8 16:14 Jennifer Panchal MD is Attending Physician. jr8 16:15 EKG done, by sow farm technician. reviewed by Abdullahi RAHMAN. 3 16:15 Initial lab(s) drawn, by ED staff, sent to lab. Inserted saline lock: 18 gauge in right jl7 antecubital area, using aseptic technique. Blood collected. Maintain EMS IV. Dressing intact. Good blood return noted. Site clean \T\ dry. Gauge \T\ site: 20 left AC. 16:15 Arm band placed on right wrist. jl7 16:23 CT Stroke Brain w/o Contrast In Process Unspecified. EDMS 16:26 Scarlett Staples RN is Primary Nurse. jl7 16:49 Patient has correct armband on for positive identification. Placed in gown. Bed in low jl7 position. Call light in reach. Side rails up X2. education administrative assistant on. Pulse ox on. NIBP on. Warm blanket given. 17:33 Stroke CXR 1 View In Process Unspecified. EDMS 18:25 MRI - Brain Wo Cont In Process Unspecified. EDMS 19:12 Jennifer Chakraborty MD is Hospitalizing Provider. jr8 19:30 Primary Nurse role handed off by Scarlett Staples RN jl7 19:51 Cherie Perez is Primary Nurse. 21:20 No provider procedures requiring assistance completed. Patient admitted, IV remains in place. Administered Medications: 17:00 Drug: Zofran 4 mg Route: IVP; Site: right antecubital; jl7 17:46 Follow up: Response: No adverse reaction; Nausea is decreased jl7 19:17 Drug: PlaVIX 75 mg Route: PO; jl7 20:48 Follow up: Response: No adverse reaction 19:17 Drug: foLIC Acid 1 mg Route: IVPB; Site: left antecubital; jl7 20:48 Follow up: Response: No adverse reaction; IV Status: Completed infusion 19:18 Drug: Aspirin 81 mg Route: PO; jl7 20:48 Follow up: Response: No adverse reaction Point of Care Testing: Blood Glucose: 16:15 Blood Glucose: 130 mg/dL; Ranges: Outcome: 19:19 Decision to Hospitalize by Provider. jr8 21:20 Admitted to [facility] accompanied by tech, via stretcher, room 428, with chart, Report called to Grabiel Galeano RN 21:20 Condition: good 21:20 Instructed on the need for admit. 21:21 Patient left the ED. NIH Stroke Scale - NIH Stroke Score Date: 03/27/2019 Time: 16:15 Total Score = 1 1a. Level of Consciousness (LOC) - 1(Not Alert) 1b. Level of Consciousness (LOC) (Year \T\ Age) - 0(Both) 1c. LOC Commands (Open \T\ Closes Eyes/Production Scheduler) - 0(Both) 2. Best Gaze (Lateral Gaze Paresis) - 0(Normal) 3. Visual Field Loss - 0(No visual loss) 4. Facial Palsy - 0(Normal) 5a. Left Arm: Motor (10-second hold) - 0(No drift) 5b. Right Arm: Motor (10-second hold) - 0(No drift) 6a. Left Leg: Motor (5-second hold - always test supine) - 0(No drift) 6b. Right Leg: Motor (5-second hold - always test supine) - 0(No drift) 7. Limb Ataxia (finger/nose \T\ heel/montero - test with eyes open) - 0(Absent) 8. Sensory Loss (pinprick arms/legs/face) - 0(Normal) 9. Best Language: Aphasia (description/naming/reading) - 0(No aphasia) 10. Dysarthria (speech clarity - read or repeat words) - 0(Normal) 11. Extinction and Inattention (visual/tactile/auditory/spatial/personal) - 0(No abnormality) Initials: jl7 NIH Stroke Scale - NIH Stroke Score Date: 03/27/2019 Time: 16:17 Total Score = 1 1a. Level of Consciousness (LOC) - 0(Alert) 1b. Level of Consciousness (LOC) (Year \T\ Age) - 0(Both) 1c. LOC Commands (Open \T\ Closes Eyes/Production Scheduler) - 0(Both) 2. Best Gaze (Lateral Gaze Paresis) - 0(Normal) 3. Visual Field Loss - 0(No visual loss) 4. Facial Palsy - 0(Normal) 5a. Left Arm: Motor (10-second hold) - 0(No drift) 5b. Right Arm: Motor (10-second hold) - 0(No drift) 6a. Left Leg: Motor (5-second hold - always test supine) - 0(No drift) 6b. Right Leg: Motor (5-second hold - always test supine) - 0(No drift) 7. Limb Ataxia (finger/nose \T\ heel/montero - test with eyes open) - 1(Present in one limb) 8. Sensory Loss (pinprick arms/legs/face) - 0(Normal) 9. Best Language: Aphasia (description/naming/reading) - 0(No aphasia) 10. Dysarthria (speech clarity - read or repeat words) - 0(Normal) 11. Extinction and Inattention (visual/tactile/auditory/spatial/personal) - 0(No abnormality) Initials: jr8 Signatures: Dispatcher [employer] EDMS Renetta Piper, EVELINA RN dm5 Nora Riggs RN RN ss Veronika Kat, RN RN lp1 Abdullahi Magana PA PA jr8 Scarlett Staples RN RN jl7 Cherie Perez Brian RN RN bp Rosalia Hassan 3 Corrections: (The following items were deleted from the chart) 16:28 16:08 Initial Sepsis Screen: stefania jl7 16: 16:08 Care prior to arrival: None. stefania jl7
--- NOTE | 2019-03-27 19:22 | EDPHYS ---
Physician Documentation [facility] Name: Aravind Low Age: 68 yrs Sex: Male : 1950 Arrival Date: 03/27/2019 Time: 16:08 Bed 4 Private MD: ED Physician Jennifer Panchal HPI: 03/27 16:17 This 68 yrs old Black Male presents to ER via EMS with complaints of Dizziness. jr8 16:17 The patient presents with dizziness. Onset: The symptoms/episode began/occurred jr8 acutely, just prior to arrival, today. Context: occurred at home, occurred while the patient was at rest, sitting, just prior to the episode the patient experienced no apparent symptoms. Modifying factors: The symptoms are alleviated by nothing, the symptoms are aggravated by nothing. Associated signs and symptoms: Pertinent positives: diaphoresis. Severity of symptoms: At their worst the symptoms were moderate in the emergency department the symptoms are unchanged. Patient's baseline: Neuro: alert and fully oriented, Motor: no deficits, Ambulation: walks without assistance, Speech: normal. The patient has not experienced similar symptoms in the past. The patient has not recently seen a physician. EMS stated that while at home resting had sudden onset dizziness, diaphoresis, and altered mentation. Stated that he started to act drowsy. Patient currently A\T\O x4 with no altered mentation. Patient dose look sleepy and is nauseated . Historical: - Allergies: 16:28 No Known Allergies; jl7 - Home Meds: 16:28 allopurinol 100 mg Oral tab 1 tab 2 times per day [Active]; clonidine HCl 0.3 mg Oral jl7 tab 1 tab 2 times per day [Active]; nifedipine 30 mg Oral TbER 1 tab once daily [Active]; Vitamin D Oral [Active]; - PMHx: 16:28 Hypertension; Gout; jl7 - PSHx: 16:28 left kidney removed; jl7 - Immunization history:: Adult Immunizations unknown. - Social history:: Smoking status: unknown. - Ebola Screening: : No symptoms or risks identified at this time. ROS: 16:17 Eyes: Negative for injury, pain, redness, and discharge, ENT: Negative for injury, jr8 pain, and discharge, Neck: Negative for injury, pain, and swelling, Cardiovascular: Negative for chest pain, palpitations, and edema, Respiratory: Negative for shortness of breath, cough, wheezing, and pleuritic chest pain, Abdomen/GI: Negative for abdominal pain, nausea, vomiting, diarrhea, and constipation, Back: Negative for injury and pain, MS/Extremity: Negative for injury and deformity, Skin: Negative for injury, rash, and discoloration. 16:17 Neuro: Positive for altered mental status, dizziness, Negative for gait disturbance, headache, hearing loss, loss of consciousness, numbness, seizure activity, speech changes, syncope, near syncope, tingling, tinnitus, tremor, visual changes, weakness. Exam: 16:17 Eyes: Pupils equal round and reactive to light, extra-ocular motions intact. Lids and jr8 lashes normal. Conjunctiva and sclera are non-icteric and not injected. Cornea within normal limits. Periorbital areas with no swelling, redness, or edema. ENT: Nares patent. No nasal discharge, no septal abnormalities noted. Tympanic membranes are normal and external auditory canals are clear. Oropharynx with no redness, swelling, or masses, exudates, or evidence of obstruction, uvula midline. Mucous membranes moist. Neck: Trachea midline, no thyromegaly or masses palpated, and no cervical lymphadenopathy. Supple, full range of motion without nuchal rigidity, or vertebral point tenderness. No Meningismus. Cardiovascular: Regular rate and rhythm with a normal S1 and S2. No gallops, murmurs, or rubs. Normal PMI, no JVD. No pulse deficits. Respiratory: Lungs have equal breath sounds bilaterally, clear to auscultation and percussion. No rales, rhonchi or wheezes noted. No increased work of breathing, no retractions or nasal flaring. Abdomen/GI: Soft, non-tender, with normal bowel sounds. No distension or tympany. No guarding or rebound. No evidence of tenderness throughout. Back: No spinal tenderness. No costovertebral tenderness. Full range of motion. Skin: Warm, dry with normal turgor. Normal color with no rashes, no lesions, and no evidence of cellulitis. MS/ Extremity: Pulses equal, no cyanosis. Neurovascular intact. Full, normal range of motion. Neuro: Awake and alert, GCS 15, oriented to person, place, time, and situation. Cranial nerves II-XII grossly intact. Motor strength 3/5 in all extremities. Sensory grossly intact. Cerebellar exam normal. Vital Signs: 16:15 BP 169 / 95; Pulse 52; Resp 14 S; Pulse Ox 98% on R/A; jl7 17:00 BP 165 / 88; Pulse 82; Resp 18; Pulse Ox 98% ; bp 18:11 BP 168 / 78; Pulse 84; Resp 16; Pulse Ox 98% ; bp 19:30 BP 188 / 99; Pulse 81; Resp 18; Pulse Ox 98% on R/A; 19:43 Temp 97.5(O); lp1 20:30 BP 161 / 88; Pulse 68; Resp 18; Pulse Ox 99% on R/A; NIH Stroke Scale Scores: 16:15 NIHSS Score: 1 jl7 16:17 NIHSS Score: 1 jr8 MDM: 16:14 Patient medically screened. 8 19:10 Data reviewed: vital signs, nurses notes, lab test result(s), EKG, radiologic studies, 8 CT scan, MRI, plain films. Data interpreted: Pulse oximetry: on room air is 98 %. Interpretation: normal. Counseling: I had a detailed discussion with the patient and/or guardian regarding: the historical points, exam findings, and any diagnostic results supporting the discharge/admit diagnosis, lab results, radiology results, the need for further work-up and treatment in the hospital. ED course: Dr. Hector consulted on case. Agrees with me that patient is not candidate for tPA as chance for bleeding is great based on where the stroke is. Will admit and put on ASA, plavix, and folic acid . 03/27 16:14 Order name: Lipase; Complete Time: 17:24 03/27 16:14 Order name: Troponin (emerg Dept Use Only); Complete Time: 17:24 03/27 16:14 Order name: UDS 03/27 16:14 Order name: Magnesium; Complete Time: 17:24 03/27 16:14 Order name: Basic Metabolic Panel; Complete Time: 17:24 03/27 16:14 Order name: CBC with Diff; Complete Time: 16:57 03/27 16:14 Order name: Protime (+inr); Complete Time: 16:57 03/27 16:14 Order name: Ptt, Activated; Complete Time: 16:57 03/27 19:22 Order name: CBC with Automated Diff EDMS 03/27 19:22 Order name: CBC with Automated Diff EDMS 03/27 19:22 Order name: Comprehensive Metabolic Panel EDMS 03/27 19:22 Order name: Comprehensive Metabolic Panel EDMS 03/27 19:22 Order name: Lipid Profile EDMS 03/27 19:22 Order name: Lipid Profile EDMS 03/27 16:14 Order name: CT Stroke Brain w/o Contrast; Complete Time: 16:50 03/27 16:14 Order name: Stroke CXR 1 View; Complete Time: 18:19 03/27 16:27 Order name: MRI - Brain Wo Cont; Complete Time: 19:20 8 03/27 19:22 Order name: Echo with Doppler EDMS 03/27 19:22 Order name: Magnesium EDMS 03/27 19:22 Order name: Magnesium EDMS 03/27 19:22 Order name: Phosphorus EDMS 03/27 19:22 Order name: Phosphorus EDMS 03/27 19:22 Order name: Protime (+INR) EDMS 03/27 19:22 Order name: Protime (+INR) EDMS 03/27 19:22 Order name: PTT, Activated Partial Thromb EDMS 03/27 19:22 Order name: PTT, Activated Partial Thromb EDMS 03/27 19:24 Order name: Carotid Artery Bilateral EDMS 03/27 16:14 Order name: EKG; Complete Time: 16:16 03/27 16:14 Order name: Accucheck; Complete Time: 16:46 [facility] 03/27 16:14 Order name: Cardiac monitoring; Complete Time: 16:46 03/27 16:14 Order name: EKG - Nurse/Tech; Complete Time: 16:46 03/27 16:14 Order name: IV Saline Lock; Complete Time: 16:46 03/27 16:14 Order name: Labs collected and sent; Complete Time: 16:46 03/27 16:14 Order name: NPO; Complete Time: 16:47 03/27 16:14 Order name: O2 Per Protocol; Complete Time: 16:47 03/27 16:14 Order name: O2 Sat Monitoring; Complete Time: 16:47 03/27 16:14 Order name: Stroke Swallow Screen; Complete Time: 16:47 jr8 03/27 19:19 Order name: NPO [facility] 03/27 19:19 Order name: NPO [facility] 03/27 19:22 Order name: Physical Therapy Consult [facility] 03/27 19:22 Order name: Social Service Consult [facility] 03/27 19:22 Order name: NPO [facility] 03/27 19:22 Order name: EKG Electrocardiogram [facility] 03/27 19:24 Order name: Speech Therapy Consult [facility] Administered Medications: 17:00 Drug: Zofran 4 mg Route: IVP; Site: right antecubital; jl7 17:46 Follow up: Response: No adverse reaction; Nausea is decreased [facility] 19:17 Drug: PlaVIX 75 mg Route: PO; jl7 20:48 Follow up: Response: No adverse reaction 19:17 Drug: foLIC Acid 1 mg Route: IVPB; Site: left antecubital; jl7 20:48 Follow up: Response: No adverse reaction; IV Status: Completed infusion 19:18 Drug: Aspirin 81 mg Route: PO; jl7 20:48 Follow up: Response: No adverse reaction Point of Care Testing: Blood Glucose: 16:15 Blood Glucose: 130 mg/dL; Ranges: Critical Glucose Levels:Adult <50 mg/dl or >400 mg/dl <40 mg/dl or >180 mg/dl Disposition: 03/27/19 19:19 Hospitalization ordered by Jennifer Chakraborty for Inpatient Admission. Preliminary diagnosis is Cerebellar stroke syndrome. - Bed requested for Telemetry/MedSurg (Inpatient). - Status is Inpatient Admission. - Condition is Stable. - Problem is new. - Symptoms are unchanged. UTI on Admission? No NIH Stroke Scale - NIH Stroke Score Date: 03/27/2019 Time: 16:15 Total Score = 1 1a. Level of Consciousness (LOC) - 1(Not Alert) 1b. Level of Consciousness (LOC) (Year \T\ Age) - 0(Both) 1c. LOC Commands (Open \T\ Closes Eyes/Director Of Emergency Nursing) - 0(Both) 2. Best Gaze (Lateral Gaze Paresis) - 0(Normal) 3. Visual Field Loss - 0(No visual loss) 4. Facial Palsy - 0(Normal) 5a. Left Arm: Motor (10-second hold) - 0(No drift) 5b. Right Arm: Motor (10-second hold) - 0(No drift) 6a. Left Leg: Motor (5-second hold - always test supine) - 0(No drift) 6b. Right Leg: Motor (5-second hold - always test supine) - 0(No drift) 7. Limb Ataxia (finger/nose \T\ heel/montero - test with eyes open) - 0(Absent) 8. Sensory Loss (pinprick arms/legs/face) - 0(Normal) 9. Best Language: Aphasia (description/naming/reading) - 0(No aphasia) 10. Dysarthria (speech clarity - read or repeat words) - 0(Normal) 11. Extinction and Inattention (visual/tactile/auditory/spatial/personal) - 0(No abnormality) Initials: jl7 NIH Stroke Scale - NIH Stroke Score Date: 03/27/2019 Time: 16:17 Total Score = 1 1a. Level of Consciousness (LOC) - 0(Alert) 1b. Level of Consciousness (LOC) (Year \T\ Age) - 0(Both) 1c. LOC Commands (Open \T\ Closes Eyes/Director Of Emergency Nursing) - 0(Both) 2. Best Gaze (Lateral Gaze Paresis) - 0(Normal) 3. Visual Field Loss - 0(No visual loss) 4. Facial Palsy - 0(Normal) 5a. Left Arm: Motor (10-second hold) - 0(No drift) 5b. Right Arm: Motor (10-second hold) - 0(No drift) 6a. Left Leg: Motor (5-second hold - always test supine) - 0(No drift) 6b. Right Leg: Motor (5-second hold - always test supine) - 0(No drift) 7. Limb Ataxia (finger/nose \T\ heel/montero - test with eyes open) - 1(Present in one limb) 8. Sensory Loss (pinprick arms/legs/face) - 0(Normal) 9. Best Language: Aphasia (description/naming/reading) - 0(No aphasia) 10. Dysarthria (speech clarity - read or repeat words) - 0(Normal) 11. Extinction and Inattention (visual/tactile/auditory/spatial/personal) - 0(No abnormality) Initials: jr8 Addendum: 03/31/2019 15:54 Co-signature as Attending Physician, Jennifer Panchal MD. ma2 Signatures: Dispatcher [employer] EDPA Tatyana Johnson RN RN mw Abdullahi Magana, LACEY PA jr8 Scarlett Staples RN RN jl7 Cherie Perez Jenniefr Panchal MD MD ma2 Corrections: (The following items were deleted from the chart) 03/27 19:10 16:20 NIHSS Score: 0 jr8 jr8 19:25 19:24 Chest Pa And Lat (2 Views) ordered. EDPA EDMS 19:41 19:19 Hospitalization Ordered by Jennifer Chakraborty MD for Inpatient Admission. Preliminary diagnosis is Cerebellar stroke syndrome. Bed requested for Telemetry/MedSurg (Inpatient). Status is Inpatient Admission. Condition is Stable. Problem is new. Symptoms are unchanged. UTI on Admission? No. jr8 21:21 19:41 03/27/2019 19:19 Hospitalization Ordered by Jennifer Chakraborty MD for Inpatient Admission. Preliminary diagnosis is Cerebellar stroke syndrome. Bed requested for Telemetry/MedSurg (Inpatient). Status is Inpatient Admission. Condition is Stable. Problem is new. Symptoms are unchanged. UTI on Admission? No. mw
[2019-03-27 23:12] VITALS: BMI 23.9
[2019-03-27 23:42] LABS: Barbiturates NEGATIVE (NEGATIVE); Benzodiazepines NEGATIVE (NEGATIVE); Cocaine NEGATIVE (NEGATIVE); METHAMPHETAM NEGATIVE (NEGATIVE); Methadone NEGATIVE (NEGATIVE); Opiates NEGATIVE (NEGATIVE); Phencyclidine NEGATIVE (NEGATIVE); THC Cannibis NEGATIVE (NEGATIVE)
[2019-03-27 23:43] LABS: Urine Appearance CLEAR; Urine Bilirubin NEGATIVE (NEG); Urine Blood TRACE (NEG); Urine Color YELLOW; Urine Glucose NEGATIVE (NEG); Urine Protein 2+ (NEG)
[2019-03-27 23:46] LABS: Urine Microscopic Reflex ORDER UMIC
[2019-03-27] MEDS ORDERED: METOPROLOL TARTRATE 5 MG/5 ML INJ IV PRN (23:56)
[2019-03-28 00:03] LABS: Urine Bacteria <20 /HPF (NONE SEEN); Urine RBC <5 /HPF (NONE SEEN)
[2019-03-28 00:04] LABS: Urine Culture Reflex Order NOT NEEDED
[2019-03-28] MEDS: NA CHLORIDE 0.9% 1,000 ML IV SCH ×3 (00:04→22:40)
[2019-03-28 06:42] LABS: Absolute Lymphocytes (CBC) 0.8 K/uL (0.7-4.9); Basophils % 0.3 % (0-1.3); Hematocrit 36.3 % (39.6-49.0); Lymphocytes % 8.8 % (15.3-44.8); MPV 8.4 fL (7.6-11.3); RBC Red Blood Cell Count 4.01 M/uL (4.33-5.43)
[2019-03-28 06:59] LABS: Albumin 3.4 g/dL (3.4-5.0); Bilirubin Total 0.3 mg/dL (0.2-1.0); Phosphorus 2.8 mg/dL (2.5-4.9); Potassium 4.1 mmol/L (3.5-5.1); Protein, Total 7.2 g/dL (6.4-8.2)
[2019-03-28 07:01] LABS: Protime INR 1.02
--- NOTE | 2019-03-28 07:40 | EKG ---
Test Date: 2019-03-27 Test Time: 16:13:24 Side Trimmer: LEILA MEASUREMENT RESULTS: Intervals: Rate: 77 AR: 174 QRSD: 104 QT: 412 QTc: 466 [place]: P: 53 AR: 174 QRS: 64 T: 82 INTERPRETIVE STATEMENTS: Sinus rhythm with occasional premature ventricular complexes and premature atrial complexes Possible Left atrial enlargement Left ventricular hypertrophy ST elevation, consider early repolarization, pericarditis, or injury Nonspecific ST and T wave abnormality Prolonged QT Abnormal ECG Compared to ECG 02/04/2019 21:30:47 Atrial premature complex(es) now present Ventricular premature complex(es) now present ST (T wave) deviation now present Electronically Signed On 03-28-19 07:37:58 CDT by Chito Sims
[2019-03-28] MEDS: ASPIRIN EC 81 MG TAB PO SCH ×2 (09:00→12:28)
--- NOTE | 2019-03-28 09:07 | P.HP ---
Certification for Inpatient Patient admitted to: Inpatient With expected LOS: >2 Midnights Patient will require the following post-hospital care: None Practitioner: I am a practitioner with admitting privileges, knowledge of patient current condition, hospital course, and medical plan of care. Services: Services provided to patient in accordance with Admission requirements found in Title 42 Section 412.3 of the Code of Federal Regulations Patient History Date of Service: 03/27/19 Reason for admission: CEREBELLAR INFARCT History of Present Illness: patient is a 68-year-old gentleman who came into the hospital with vertigo and dysarthria. He was also ataxic. Patient was having a hard time getting words out of his mouth. He has been in the hospital on numerous occasions over the last couple of months. However, his blood pressure remains poorly controlled. Initially in the ER his blood pressure was 190/100. His workup revealed that he had a right cerebellar infarct. Decision was made to admit him to the hospital for further evaluation. Patient is having multiple neurologic issues. He will get physical therapy, speech therapy, occupational therapy evaluation. He will need anti-platelet therapy as well as statin therapy. Will check a lipid profile and DVT prophylaxis as well. Neurology consultation with Dr. Hector. Allergies No Known Allergies Allergy (Verified 03/27/19 22:28) Home Medications: Allopurinol 100 mg PO DAILY 03/27/19 Amlodipine Besylate 10 mg PO DAILY 03/27/19 Lactulose 15 ml PO DAILY 03/27/19 cloNIDine HCl [Catapres*] 1 tab PO BID 03/27/19 - Past Medical/Surgical History Has patient received pneumonia vaccine in the past: Yes Diabetic: No -: Hypertension -: Chronic renal disease, stage IV -: History left renal mass with nephrectomy -: gout -: Left nephrectomy Psychosocial/ Personal History: Patient is - Family History Mother History Unknown: Yes Father History Unknown: Yes - Social History Smoking Status: Current every day smoker Alcohol use: No CD- Drugs: No Caffeine use: No Place of Residence: Home Review of Systems 10-point ROS is otherwise unremarkable Physical Examination - Vital Signs Temperature: 98.9 F Blood Pressure: 194/93 Pulse: 66 Respirations: 18 Pulse Ox (%): 99 - Physical Exam General: Alert, In no apparent distress, Oriented x3 HEENT: Atraumatic, PERRLA, Mucous membr. moist/pink, EOMI, Sclerae nonicteric Neck: Supple, 2+ carotid pulse no bruit, No LAD, Without JVD or thyroid abnormality Respiratory: Clear to auscultation bilaterally, Normal air movement Cardiovascular: Regular rate/rhythm, Normal S1 S2, Systolic murmur Gastrointestinal: Normal bowel sounds, Soft and benign, Non-distended, No tenderness Musculoskeletal: No clubbing, No swelling, No tenderness Integumentary: No rashes Neurological: Normal tone, Sensation intact, Cranial nerves 3-12 intact, Normal affect, Abnormal gait, Abnormal speech, Abnormal strength Lymphatics: No axilla or inguinal lymphadenopathy - Studies Laboratory Data (last 24 hrs) 03/27/19 16:20: PT 11.2, INR 0.95, APTT 31.6 03/27/19 16:20: WBC 10.6, Hgb 14.0, Hct 41.7, Plt Count 223 03/27/19 16:20: Sodium 145, Potassium 3.1 L, BUN 26 H, Creatinine 3.24 H, Glucose 135 H, Magnesium 2.3, Lipase 267 Assessment & Plan - Problems (Diagnosis) (1) Cerebral infarction involving right cerebellar artery Current Visit: Yes Status: Acute (2) Hypertension Current Visit: No Status: Chronic Qualifiers: - Plan 1. MRI of the brain revealed a right cerebellar infarct 2. Echocardiogram and carotid Doppler pending 3. Anti-platelet therapy and statin therapy 4. Neurology consultation 5. Physical therapy/occupational therapy/speech therapy evaluation 6. will need rehab placement as well/ permissive hypertension with gentle decrease of blood pressure over the next 48-72 hours. 7. DVT prophylaxis Discharge Plan: Home Plan to discharge in: Greater than 2 days - Advance Directives Does patient have a Living Will: No Does patient have a Durable POA for Healthcare: No - Code Status/Comfort Care Code Status Assessed: Yes Code Status: Full Code Critical Care: No Time Spent Managing PTS Care (In Minutes): 50
[2019-03-28] MEDS: ENOXAPARIN 30 MG/0.3 ML SQ SCH (10:03)
[2019-03-28] MEDS: CLOPIDOGREL 75 MG TABLET PO SCH (12:22)
[2019-03-28] MEDS: AMLODIPINE 10 MG TAB PO SCH (12:22)
[2019-03-28] MEDS: ALLOPURINOL 100 MG TAB PO SCH (12:22)
[2019-03-28] MEDS: LACTULOSE 20 GM/30 ML UCUP PO SCH (12:23)
[2019-03-28] MEDS: CLONIDINE HCL 0.3 MG TAB PO SCH ×2 (12:26→20:15)
--- NOTE | 2019-03-28 20:43 | CON ---
Reason For Consultation: Consultation called because of cerebellar stroke. History Of Present Illness: Mr. Low is a 68-year-old right-handed patient with hi story of uncontrolled hypertension, a single kidney after left nephrectomy, multiple strokes, stage 4 kidney disease, who comes in after sudden onset of nausea with vomiting and right-sided incoordinati on. His noted that he had sudden onset of nausea and vomiting and was unable to stand and ambul ate because of the right-sided incoordination. He tended to fall to the right. He was brought into [facility] on the , approximately 5 hours after onset of symptoms. Head CT scan that wa s done at 1623 on the identified no acute intracranial abnormality. There was, however, marked periventricular subcortical deep white matter small vessel ischemic disease. Review of the patient's chart indicated that a scan from 2012 also identified marked small vessel ischemic disease. His sub sequent brain MRI done 2 hours later identified an acute right cerebellar infarct, measuring 4 cm in the right medial cerebellar region. The location of the patient's stroke was consistent with his cli nical symptoms of nausea with vomiting and right-sided incoordination. He was not taking aspirin reg ularly and his notes he was poorly compliant with his antihypertensive medications. Review of t he chart indicated systolic blood pressures over 200 and diastolic up to 120 in the past. Despite hi s stroke, eventually he was very well with the strength in the upper and lower extremities and his se nsory exam shows no significant focal deficits. Past Medical History: As indicated. Family History: Unknown. Social History: The patient smokes on a daily basis. Denies alcohol or IV drug use. Home Medications: Allopurinol 100 mg daily, amlodipine 10 mg daily, lactulose 15 mg daily, Catapres 1 tablet twice daily. Allergies: NO KNOWN DRUG ALLERGIES. Review of Systems: No recent fevers, chills, nausea, vomiting, myalgias, arthralgias, headache, weight change, rash, or psychiatric issues. Surgical History: Left nephrectomy. Physical Examination: Vital Signs: Blood pressure 190/89, pulse 60, respiratory rate 16, temperature 98.9, weight 139 poun ds, and height 5 feet 4 inches, BMI 24. General: Mr. Low is resting in bed. His and daughter are at the bedside. He is slow to resp ond to questions and appears to be hard of hearing, requiring repeated questioning and louder voice f or him to comprehend. In addition, his cognitive processing appears somewhat slower. HEENT: Does have poor dentition. Appears somewhat unkept. Otherwise, he is normocephalic, atraumat ic. Sclerae anicteric. Oropharynx moist and pink. Neck: Supple. Chest: Clear. Heart: Regular. Extremities: Show no significant edema, cyanosis, or clubbing. Neurologic: He is alert and oriented to person, place, not to exact date. Does follow simple comman ds without difficulty. Does require some repeated encouragement. His cranial nerve examination reve aled no focal deficits on 2 through 12. Face is symmetric. Sensation is symmetric bilaterally. Mot or examination, he has no significant asymmetry in strength in the right and left upper extremity, bu t there is mild diffuse weakness around 4+/5 proximally and distally; and in the lower extremities, s imilarly mild diffuse weakness with mildly increased tone. Sensory exam is intact in the upper and l ower extremities. Coordination, he has dysmetria in the right upper and lower extremities with diffi culty with fine finger movement, [id number], and [id number] on the right, compared to the left side. His reflexes are brisk in the upper and lower extremities, more on the right than the left. Janell mckeon will be ambulated with the physical therapist, but he tends to fall to the right with ambulation. Laboratory Studies: Complete blood count with differential is unremarkable. Coagulation panel is no rmal and INR 1.02. Urinalysis shows trace blood, 2+ protein. His chemistries show elevated creatini ne of 3.24 with hydration 2.72, sodium 144, potassium 4.1, glucose ranged from 121-135. Liver functi on studies unremarkable except AST slightly low at 13, LDL cholesterol 128, total cholesterol 205, HD L cholesterol 66, and lipase 267. Please note, NIH stroke scale of 4. His electrocardiogram shows r ate of 77 with occasional premature ventricular complexes and his chest x-ray shows no acute abnormal ities. Assessment: Mr. Low is a 68-year-old patient with uncontrolled hypertension, extensive small vesse l ischemic disease, and acute right cerebellar stroke, likely due to uncontrolled hypertension. He a lso had chronic stage 4 renal disease. Again is poorly compliant with medications. Despite his stro ke, he has good strength and sensation in the upper and lower extremities. He has incoordination of the right upper and lower extremities consistent with the stroke and his nausea and vomiting is impro ving. Plan: 1.Aspirin 81 mg daily. 2.Plavix 75 mg daily. 3.Folate 1 mg daily. 4.He may have some permissive hypertension, only lower systolic blood pressure to less than 80. If up to 80, may hold for the next 3 days and slowly bring back down to the range of the 120s to 140s. 5.Physical Therapy evaluation for admission to the inpatient rehabilitation unit for physical and oc cupational therapy. 6.The patient's reports that he lives in a second floor apartment, is retired, but he has diffi culty prior to this stroke, going up and down steps and would like a rent note requesting that she bedolla ve an apartment on the first floor and that may be done at time of his discharge. 7.Patient will be seen once he is in the rehabilitation unit. GREG Voice ID: [id number] Report ID: [id number]
[2019-03-29] MEDS: NA CHLORIDE 0.9% 1,000 ML IV SCH ×2 (09:31→12:00)
[2019-03-29] MEDS: AMLODIPINE 10 MG TAB PO SCH (09:32)
[2019-03-29] MEDS: ASPIRIN EC 81 MG TAB PO SCH (09:32)
[2019-03-29] MEDS: ENOXAPARIN 30 MG/0.3 ML SQ SCH (09:32)
[2019-03-29] MEDS: CLOPIDOGREL 75 MG TABLET PO SCH (09:32)
[2019-03-29] MEDS: CLONIDINE HCL 0.3 MG TAB PO SCH ×2 (09:35→22:12)
[2019-03-29] MEDS: LACTULOSE 20 GM/30 ML UCUP PO SCH (09:35)
[2019-03-29] MEDS: ALLOPURINOL 100 MG TAB PO SCH (09:36)
--- NOTE | 2019-03-29 17:51 | P.PN ---
Subjective Date of Service: 03/28/19 Chief Complaint: CEREBELLAR INFARCT Subjective: No C/O voiced Patient reporting no complaint. He seems to stutter. He denies any limb weakness. He passed bedside swallow evaluation. He denies any headache. Review of Systems 10-point ROS is otherwise unremarkable Physical Examination - Vital Signs Temperature: 97.8 F Blood Pressure: 156/83 Pulse: 50 Respirations: 16 Pulse Ox (%): 100 - Physical Exam General: Alert, In no apparent distress, Oriented x3 HEENT: Mucous membr. moist/pink Neck: Supple, JVD not distended Respiratory: Clear to auscultation bilaterally, Normal air movement Cardiovascular: No edema, Regular rate/rhythm, Normal S1 S2 Gastrointestinal: Normal bowel sounds, Soft and benign, No tenderness Musculoskeletal: No swelling, No erythema Integumentary: No rashes Neurological: Normal strength at 5/5 x4 extr, Cranial nerves 3-12 intact Lymphatics: No axilla or inguinal lymphadenopathy Assessment And Plan - Current Problems (Diagnosis) (1) Cerebral infarction involving right cerebellar artery Current Visit: Yes Status: Acute (2) Hypertension Current Visit: No Status: Chronic Qualifiers: (3) Acute worsening of stage 4 chronic kidney disease Current Visit: Yes Status: Acute - Plan Continue aspirin, Plavix, lipitor. Telemetry Neurology consult is pending PT and OT to evaluate. Echocardiogram and carotid Doppler ordered Permissive hypertension, target systolic blood pressure of 180. Neuro checks IV hydration Monitor renal function.
--- NOTE | 2019-03-29 18:00 | P.PN ---
Subjective Date of Service: 03/29/19 Chief Complaint: CEREBELLAR INFARCT Subjective: No new changes, No C/O voiced, Doing well Patient reporting no complaint. He seems to stutter. He denies any limb weakness. He passed bedside swallow evaluation. He denies any headache. Review of Systems 10-point ROS is otherwise unremarkable Physical Examination - Vital Signs Temperature: 97.8 F Blood Pressure: 156/83 Pulse: 50 Respirations: 16 Pulse Ox (%): 100 - Physical Exam General: Alert, In no apparent distress, Oriented x3 HEENT: Mucous membr. moist/pink Neck: Supple, JVD not distended Respiratory: Clear to auscultation bilaterally, Normal air movement Cardiovascular: No edema, Regular rate/rhythm, Normal S1 S2, No murmurs Gastrointestinal: Normal bowel sounds, Soft and benign, No tenderness Musculoskeletal: No swelling, No erythema Integumentary: No rashes Neurological: Normal strength at 5/5 x4 extr, Cranial nerves 3-12 intact, Abnormal speech Assessment And Plan - Current Problems (Diagnosis) (1) Cerebral infarction involving right cerebellar artery Current Visit: Yes Status: Acute (2) Hypertension Current Visit: No Status: Chronic Qualifiers: (3) Acute worsening of stage 4 chronic kidney disease Current Visit: Yes Status: Acute - Plan Continue aspirin, Plavix, lipitor. There is a report of noncompliance his medications including aspirin and antihypertensives. Blood pressure management with clonidine and amlodipine. Metoprolol IV p.r.n. for BP spikes. Permissive hypertension with target systolic blood pressure of 180. Neurology input appreciated Continue PT and OT. Disposition to inpatient rehab. Echocardiogram and carotid Doppler ordered Continue Neuro checks Renal function has improved. Continue IV hydration. Follow up echocardiogram and carotid Doppler results.
[2019-03-29 18:17] VITALS: O2SAT 100
[2019-03-30] MEDS: NA CHLORIDE 0.9% 1,000 ML IV SCH (01:20)
[2019-03-30] MEDS: CLONIDINE HCL 0.3 MG TAB PO SCH (09:00)
[2019-03-30] MEDS: LACTULOSE 20 GM/30 ML UCUP PO SCH (09:48)
[2019-03-30] MEDS: CLOPIDOGREL 75 MG TABLET PO SCH (09:49)
[2019-03-30] MEDS: ENOXAPARIN 30 MG/0.3 ML SQ SCH (09:49)
[2019-03-30] MEDS: ASPIRIN EC 81 MG TAB PO SCH (09:49)
[2019-03-30] MEDS: ALLOPURINOL 100 MG TAB PO SCH (09:51)
[2019-03-30] MEDS: cloNIDine HCl 0.1 MG TAB PO SCH ×2 (11:05→21:36)
[2019-03-30] MEDS: AMLODIPINE 10 MG TAB PO SCH (11:06)
[2019-03-30] MEDS: HYDRALAZINE HCL 10 MG TABLET PO SCH ×3 (11:06→21:36)
[2019-03-30 11:37] LABS: Absolute Lymphocytes (CBC) 1.3 K/uL (0.7-4.9); Basophils % 1.2 % (0-1.3); Hematocrit 39.8 % (39.6-49.0); MPV 8.2 fL (7.6-11.3); RBC Red Blood Cell Count 4.41 M/uL (4.33-5.43)
[2019-03-30 11:57] LABS: Magnesium 2.2 mg/dL (1.8-2.4); Phosphorus 2.5 mg/dL (2.5-4.9); Potassium 3.8 mmol/L (3.5-5.1)
[2019-03-30] MEDS ORDERED: HYDRALAZINE HCL 10 MG TABLET PO SCH (14:00)
[2019-03-30] MEDS ORDERED: POTASSIUM CL SA 10 MEQ TAB PO ONE (14:00)
--- NOTE | 2019-03-31 02:58 | P.PN ---
Date of Service: 03/30/19 Subjective Subjective: Patient continues to slowly improve. Renal function also is slowly improving. Continue hydration and hopefully we can transfer him to rehab on Sunday morning. Review of Systems 10-point ROS is otherwise unremarkable Physical Examination - Vital Signs Reviewed - Physical Exam General: Alert, In no apparent distress, Oriented x3 Respiratory: Clear to auscultation bilaterally, Normal air movement Cardiovascular: No edema, Regular rate/rhythm, Normal S1 S2, No murmurs Gastrointestinal: Normal bowel sounds, Soft and benign, No tenderness Neurological: Normal strength at 5/5 x4 extr, Cranial nerves 3-12 intact, Abnormal speech Assessment And Plan - Current Problems (Diagnosis) (1) Cerebral infarction involving right cerebellar artery Current Visit: Yes Status: Acute (2) Hypertension Current Visit: No Status: Chronic Qualifiers: (3) Acute worsening of stage 4 chronic kidney disease Current Visit: Yes Status: Acute - Plan Continue aspirin, Plavix, lipitor. Blood pressure management with clonidine and amlodipine. Continue to get systolic blood pressure less than 150 with diastolic blood pressure less than 90 Neurology input appreciated; attempting to do rehab Continue PT, speech therapy, and OT. Disposition to inpatient rehab in the next 24 hrs. Renal function has improved. Continue IV hydration. Follow up echocardiogram and carotid Doppler results.
[2019-03-31] MEDS ORDERED: NA CHLORIDE 0.9% 1,000 ML IV SCH (03:00)
--- NOTE | 2019-03-31 03:04 | P.DS ---
Discharge Date: 03/31/19 Disposition: TRANSFER TO INPATIENT REHAB Discharge Condition: GOOD Reason for Admission: CEREBELLAR INFARCT - Problems (1) Cerebral infarction involving right cerebellar artery Current Visit: Yes Status: Acute (2) Hypertension Current Visit: No Status: Chronic Qualifiers: Brief History of Present Illness: patient is a 68-year-old gentleman who came into the hospital with vertigo and dysarthria. He was also ataxic. Patient was having a hard time getting words out of his mouth. He has been in the hospital on numerous occasions over the last couple of months. However, his blood pressure remains poorly controlled. Initially in the ER his blood pressure was 190/100. His workup revealed that he had a right cerebellar infarct. Decision was made to admit him to the hospital for further evaluation. Patient is having multiple neurologic issues. He will get physical therapy, speech therapy, occupational therapy evaluation. He will need anti-platelet therapy as well as statin therapy. Will check a lipid profile and DVT prophylaxis as well. Neurology consultation with Dr. Hector. Vital Signs/Physical Exam: Temp Pulse Resp BP Pulse Ox 97.0 F 59 18 160/71 H 100 03/31/19 00:00 03/31/19 00:00 03/31/19 00:00 03/31/19 00:00 03/31/19 00:00 General: Alert, In no apparent distress, Oriented x3 Laboratory Data at Discharge: WBC 3.9 K/uL (4.3-10.9) L D 03/30/19 11:22 Hgb 13.5 g/dL (13.6-17.9) L 03/30/19 11:22 Hct 39.8 % (39.6-49.0) 03/30/19 11:22 Plt Count 209 K/uL (152-406) 03/30/19 11:22 PT 12.0 SECONDS (9.5-12.5) 03/28/19 06:05 INR 1.02 03/28/19 06:05 APTT 32.9 SECONDS (24.3-36.9) 03/28/19 06:05 Sodium 139 mmol/L (136-145) 03/30/19 11:22 Potassium 3.8 mmol/L (3.5-5.1) 03/30/19 11:22 BUN 24 mg/dL (7-18) H 03/30/19 11:22 Creatinine 2.87 mg/dL (0.55-1.3) H 03/30/19 11:22 Glucose 86 mg/dL (74-106) 03/30/19 11:22 Phosphorus 2.5 mg/dL (2.5-4.9) 03/30/19 11:22 Magnesium 2.2 mg/dL (1.8-2.4) 03/30/19 11:22 Total Bilirubin 0.3 mg/dL (0.2-1.0) 03/28/19 06:05 AST 13 U/L (15-37) L 03/28/19 06:05 ALT 16 U/L (12-78) 03/28/19 06:05 Alkaline Phosphatase 79 U/L (45-117) 03/28/19 06:05 Triglycerides 55 mg/dL (<150) 03/28/19 06:05 Cholesterol 205 mg/dL (<200) H 03/28/19 06:05 HDL Cholesterol 66 mg/dL (40-60) H 03/28/19 06:05 Cholesterol/HDL Ratio 3.11 03/28/19 06:05 Lipase 267 U/L (73-393) 03/27/19 16:20 Home Medications: Allopurinol 100 mg PO DAILY 03/27/19 Amlodipine Besylate 10 mg PO DAILY 03/27/19 Lactulose 15 ml PO DAILY 03/27/19 Clopidogrel Bisulfate [Plavix*] 75 mg PO DAILY #30 tablet 03/31/19 Enoxaparin Sodium [Lovenox 30 MG INJ*] 30 mg SQ DAILY #14 syr 03/31/19 Hydralazine [Apresoline*] 10 mg PO TID #90 tab 03/31/19 cloNIDine HCl [Catapres*] 0.2 mg PO BID #60 tab 03/31/19 New Medications: cloNIDine HCl [Catapres*] 0.2 mg PO BID #60 tab Clopidogrel Bisulfate [Plavix*] 75 mg PO DAILY #30 tablet Hydralazine [Apresoline*] 10 mg PO TID #90 tab Patient Discharge Instructions: OK TO DC IV AND transfer to rehab. FOLLOW-UP WITH PRIMARY CARE PROVIDER IN 1-2 WEEKS. FOLLOW-UP WITH NEUROLOGY IN 1-2 WEEKS. RETURN TO THE ER IF SYMPTOMS WORSEN. CALL or TEXT DR. CALLAHAN AT IF ANY QUESTIONS REGARDING HOSPITAL STAY. PLEASE CALL THE FLOOR AT IF ANY MEDICATION OR NURSING QUESTIONS. Diet: AHA Activity: Fall precautions
[2019-03-31 04:37] LABS: Potassium 3.8 mmol/L (3.5-5.1)
[2019-03-31] MEDS ORDERED: POTASSIUM CL SA 10 MEQ TAB PO ONE (05:27)
[2019-03-31] MEDS: ASPIRIN EC 81 MG TAB PO SCH (08:55)
[2019-03-31] MEDS: cloNIDine HCl 0.1 MG TAB PO SCH (08:55)
[2019-03-31] MEDS: CLOPIDOGREL 75 MG TABLET PO SCH (08:56)
[2019-03-31] MEDS: AMLODIPINE 10 MG TAB PO SCH (08:56)
[2019-03-31] MEDS: HYDRALAZINE HCL 10 MG TABLET PO SCH ×2 (08:56→16:31)
[2019-03-31] MEDS: ENOXAPARIN 30 MG/0.3 ML SQ SCH (08:56)
[2019-03-31] MEDS: ALLOPURINOL 100 MG TAB PO SCH (08:56)
[2019-03-31] MEDS: LACTULOSE 20 GM/30 ML UCUP PO SCH (08:56)
[2019-03-31 18:35] VITALS: BP 171/86; TEMP 98.1
[2019-03-31] MEDS ORDERED: ATORVASTATIN 40 MG TAB PO SCH (21:00)
== END 2019-03-31 17:10 | DRG 65 ==
LOC: ER 16:09 → ERHOLD 19:16 → 4TH 20:48
PROVIDERS: ADMIT Hospitalist; ATTEND Hospitalist
DX: I63.541 Cerebral infarction due to unspecified occlusion or stenosis of right cerebellar artery (principal); N18.4 Chronic kidney disease, stage 4 (severe); N17.9 Acute kidney failure, unspecified; I12.9 Hypertensive chronic kidney disease with stage 1 through stage 4 chronic kidney disease, or unspecified chronic kidney disease; R29.706 NIHSS score 6; Z90.5 Acquired absence of kidney; Z86.73 Personal history of transient ischemic attack (TIA), and cerebral infarction without residual deficits; F17.210 Nicotine dependence, cigarettes, uncomplicated
CPT/HCPCS: 36415; 70450; 70551; 71045; 80048; 80053; 80061; 80307; 81003; 81015; 82962; 83690; 83735; 84100; 84484; 85025; 85610; 85730; 92610; 93005; 96365; 96366; 96375; 97110; 97116; 97161; 97530; 99291; 99292; J1650; J7030

== ENCOUNTER 2019-03-28 15:08 | Inpatient (IN) | payer OTHER ==
--- NOTE | 2019-03-31 13:24 | R.PREADM ---
SCREENING DATE AND TIME 03/28/2019 16:23 (CDT) ANTICIPATED REHAB ADMISSION DATE 03/30/2019 REFERRING FACILITY [facility] REFERRAL DATE AND TIME 03/28/2019 16:27 (CDT) REFERRAL ROOM# [id number] ACUTE ADMIT DATE 03/27/2019 Previous Rehabilitation(s): No. 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 Hardik Hector M.D. MR# [id number] NAME JENNIFER BELLA ADDRESS [address] PHONE [facility] [address] DATE OF 1950 AGE 68 SSN# [id number] GENDER male MARITAL STATUS RACE black ADMIT FROM 02 - [facility] PRE-HOSPITAL LIVING SETTING 01 - Home (private home/apt. board/care, assisted living, halfway, transitional living) HOME TYPE AND DETAILS Type of home: apartment # of steps within the residence: 0 # of levels in the residence: 2 # of steps to enter the residence: 12 PRE-HOSPITAL LIVING WITH Family/Relatives FAMILY SUPPORT Yes PRIMARY FAMILY CONTACT NAME SOBEIDA BELLA PRIMARY FAMILY CONTACT PHONE PRIMARY FAMILY CONTACT RELATIONSHIP PHONE PRIMARY FAMILY CONTACT ON ADM.? no IS PRIMARY FAMILY CONTACT AUTH. REP.? no 1ST EMERGENCY CONTACT SOBEIDA BELLA 1ST CONTACT PHONE 1ST CONTACT RELATIONSHIP PHONE 1ST CONTACT ON ADM. no IS 1ST CONTACT AUTH. REP.? no PHONE 2ND CONTACT ON ADM.? no PATIENT EMPLOYMENT STATUS Retired (for age) PATIENT EMPLOYER No Employer PAYOR INFORMATION: 1ST PAYOR NAME MEDICARE 1ST PAYOR PHONE [phone] 1ST PAYOR INJURY/ILLNESS DUE TO ACCIDENT? No ANOTHER [employer] RESPONSIBLE? No PRIMARY REHAB/ACUTE DIAGNOSIS: Acute Right Cerebellar Infarct ONSET DATE 03/27/2019 REHAB IMPAIRMENT CATEGORY (FERDINAND): 01 Stroke (STR) MEETS 60% rule AFFECTED EXTREMITIES: LLE, and LUE PRIMARY DIAGNOSIS-RELATED SURGERIES: No surgeries related to the primary diagnosis were performed. COMORBID REHAB/ACUTE DIAGNOSES: - N/A Hypertension Chronic Renal Disease Stage 4 Gout History of left mass with nephrectomy INTERVENTIONS: - Hypertension Fluid management Medications VS RISK FOR COMPLICATIONS: - Hypertension CVA Hypotension CT TIA SUMMARY OF ACUTE HOSPITALIZATION: Pt. is a 68 yo Right-handed black male. On 03/27/2019 Pt. presented to [facility] with sudden onset of left-side weakne ss. On 03/27/2019 he was admitted to [facility] with diagnosis Acute Right Cerebell ar Infarct. His impairment category is Stroke 01 - Left Body (Right Brain) (01.1). Pre-morbidly, Pt. was independent/mod-I in Self-Care, Sphincter Control, Transfers Control, Locomotio n, Communication, and Social Cognition; and he had good Sphincter Control. Currently, he has deficits of Self-Care, Transfers Control, Locomotion, Endurance, Balance, and Safet y Awareness. Pt. is now referred to [facility] for acute in-patient rehabilitation in order to maximize patient's functional independence in activities of daily living, strength, ROM, and mobi lity. Patient has realistic goal of being discharged at assistance level 6-Yarely to reside at Home with Fam saloni/Relatives. Jennifer Bella is a 68 old male that lives with his in an upstairs apartment with 8-12 stairs with bilateral handrails. Patient was independent with ADLs and self care and sometimes uses SC for ambulation. On 03/27/2019, he had vertigo, dysarthria, ataxic and his blood pressure is poorly controlled and was admitted at [facility]. He is now medically stable but in need of 24-hour nursing, doctor supervision and oversite while receiving in 3hours of therapy a day/15 hours per week and receive care with an intensive interdisciplinary approach. PAST MEDICAL HISTORY Chronic Renal Disease Stage 4 Gout History of left mass with nephrectomy Hypertension PAST SURGICAL HISTORY: Left Nephrectomy MEDICATION ALLERGIES: No Known Drug Allergies (NKDA) ENVIRONMENTAL ALLERGIES: None Known - Substance Allergies None Known - Other Allergies None Known CODE STATUS: Full code WEIGHT/HEIGHT/BMI: WEIGHT 139 lbs HEIGHT 5' 4" BMI 23.9 DIET: - Diet Type Regular - Diet - Solid Texture Regular - Diet - Liquid Texture Regular - Tube Feed N/A REVIEW OF SYSTEMS: - Gen Alert and awake Lying in bed No apparent distress Oriented to: person, time, and place - Vital Signs Temperature: 97.6 F SBP/DBP: 169/80 Pulse: 63 Resp: 16 Vital signs stable, afebrile - CVS RRR VITAL SIGNS Temperature: 97.6 F SBP/DBP: 169/80 Pulse: 63 Resp: 16 Vital signs stable, afebrile MEDICATIONS/TREATMENT: Other- See attached MAR (Medication Administration Record) Devante Jennifer.pdf. CURRENT SPHINCTER CONTROL: Pre-hospital bladder status: continent # of bladder accidents in the last 7 days prior to screenin Pre-hospital bowel status: continent # of bowel accidents in the last 7 days prior to screenin Last Bowel Movement Date: DETAILED CURRENT FUNCTIONAL STATUS: - Bladder accident frequency: Ind - No accidents in the past 7 days - Bowel accident frequency: Ind - No accidents in the past 7 days - Walking score based on distance walked: 3(>=150ft) - Wheelchair score based on distance traveled: 0(N/A) FUNCTIONAL STATUS: - Self-Care A. Eating Ind sup B. Grooming Ind sup C. Bathing Ind sup D. Dressing - Upper Ind sup E. Dressing - Lower Ind sup F. Toileting Ind Ankita - Sphincter Control G: Bladder control Ind Ind H: Bowel control Ind Ind - Transfers Control I. Bed/Chair/Wheelchair Ind CGA J. Toilet Ind CGA K. Tub/Shower Ind ADNO - Locomotion L. Walk/Wheelchair (C) Ind CGA L. Walk/Wheelchair (W) Ind CGA M. Stairs Ind ADNO - Communication N. Comprehension (B) Ind Yarely O. Expression (B) Ind Yarely - Social Cognition P. Social Interaction Ind Yarely Q. Problem Solving Ind Yarely R. Memory Ind Yarely - Endurance Fair - Balance Fair - Safety Awareness Fair CURRENT FUNC. DEFICITS: Self-Care, Transfers Control, Locomotion, Endurance, Balance, and Safety Awareness THERAPY NOTES FROM ACUTE CARE: Attached. SPECIAL NEEDS: - Safety Concerns Skin breakdown precautions needed due to skin breakdown risk PRECAUTIONS: - Weight Bearing Precaution WBAT left LE PATIENT NEEDS ACTIVE AND ONGOING THERAPEUTIC INTERVENTION OF MULTIPLE THERAPY DISCIPLINES, INCLUDING: - Occupational Therapy Cognitive Retraining. Visual Perceptual Training. - Dietary and Nutrition Adequate Nutrition. Nutritional Education. Nutritional Supplements. - Speech Therapy Cognitive Training. Expressive Language Skills. Memory Strategies. Receptive Language Skills. Speech Intelligibility Training. PATIENT NEEDS CLOSE MEDICAL SUPERVISION BY A REHABILITATION PHYSICIAN FOR: Bowel and Bladder Management Coordination of Treatment Team Medical and Co-Morbidity Management PATIENT REQUIRES 24X7 REHAB NURSING FOR MEDICAL AND FUNCTIONAL MGT. OF THE FOLLOWING DEFICITS: ADL's Ambulation Bowel and Bladder Management Cognition Communication Disease Management Medication Management Patient/Family Education Providing Safe Environment Transfers DVT Management Pain Management PATIENT REQUIRES INTENSIVE, COORDINATED INTERDISCIPLINARY APPROACH TO REHAB: Arranging Home Equipment/Services Discharge Planning Family Intervention/Training Pilot Supervisor/Case Management PATIENT REHAB POTENTIAL: Michael BELLA is able and expected to receive 3 hours of individualized therapy daily on at least 5 of macarena ry 7 days Michael BELLA's prognosis for significant practical improvement within a reasonable period of time appears Good Expected level of measurable improvement will be of a practical value to Michael BELLA's functional capaci ty or adaptations to impairments Has a viable Discharge Plan Medically appropriate; condition is sufficiently stable to participate in intensive rehab program DISCHARGE PLAN: - Estimated Length of Stay (days) 17. - Consensus on plan Discharge plan has been discussed with primary caregiver. Patient/Family is in agreement with the beverly n. Primary caregiver is in agreement with the plan. - Patient/Family Goals Return home with assistance. - Planned Living Setting Upon Discharge Home, to live with Family/Relatives. Transitional Living. RECOMMENDED CARE LEVEL: IRF RECOMMENDATION DETAILS: Recommended Admission to Comprehensive Rehabilitation Program to Increase Functional Porter SCREENER'S COMPLETENESS CONFIRMATION: - Screening Confirmation The patient data collection on this preadmission screening form is finished PHYSICIANS REVIEW AND ADMISSION DETERMINATION Admit - Based on my review of the Pre-Admission Screening results, in my medical judgment and experie nce, I concur with the findings and recommend admission to [facility], as this patient requires an IRF level of care. SIGNATURE PANEL: Clinical Liaison - [electronically] signed by Kyra Cade on 03/31/2019 at 10:28 (CDT) Physician Reviewer - [electronically] signed by Dr. Hardik Hector M.D. on 03/31/2019 at 13:24 (CDT )
--- OUTSIDE RECORDS SUMMARY | 2019-03-31 17:18 | XMS REPORT | Clinical Summary ---
:1950 Author Organization [facility] Address [address] [place] [address] Support Name Relationship Address Phone Lilia Low Unavailable [address] [place] [address] Care Team Providers Name Role Phone Wendy [...] Not on file Results Not on fileafter 03/30/2018 Insurance Payer Benefit Plan / Group Subscriber ID Type Phone Address MEDICARE MEDICARE A B xxxxxxxxxx Medicare Advance Directives For more information, please contact:[address] [phone] Code Status Date Activated Date Inactivated Comments Full Code 10/09/2017 9:14 PM 10/14/2017 5:27 AM This code status was determined by: Patient Full Code 03/02/2017 12:28 PM 03/02/2017 10:49 PM This code status was determined by: Patient
--- OUTSIDE RECORDS SUMMARY | 2019-03-31 17:19 | XMS REPORT ---
:1950 [facility] [address] [place] [address] Care Team Providers Name Role Phone CITLALY MIMS Unavailable Unavailable VALENTECAROLINE MALCOM RENANOLAN Unavailable Unavailable Problems This patient has no known problems. Allergies, Adverse Reactions, Alerts This patient has no known allergies or adverse reactions. Medications This patient has no known medications. Results Test Description Test Time Test Comments Text Results Atomic Results Result Comments TISSUE EXAM 2017-10-16 09:38:00 Surgical Pathology Report Case: [id number] Authorizing Provider: Citlaly Mims MD Collected: 10/09/2017 7032 Ordering Location: [facility] PERIOPERATIVE Received: 10/10/2017 0810 SERVICES Pathologist: [...] SYNOPTIC REPORT Signing Pathologist Direct Phone Line: [phone] signed by Joyce Sauceda MD on 10/16/2017 [...] (tw, can include).This patient's previous biopsy from [facility], from 03/02/2017 ([id number]) shows a core biopsy with features similar [...] Additional Pathological Findings: Cyst(s): Simple cortical cyst 53923 X 2, 85603, 20611 x6Left renal massA. Retroperitoneal lymph node. B. [...] positive; AE1/AE3-positive; RICHARD and CK 7-focally positive; OX24-aosatihw CD10 equivocal, possibly focally positiveThe immunohistochemistry test was developed and its performance characteristics determined by [facility], Pathology Laboratory. It has not been [...] Comments SODIUM (BEAKER) (test 135 meq/L 136-145 snjm=742) POTASSIUM (BEAKER) (test 3.6 meq/L 3.5-5.1 pgdd=737) CHLORIDE (BEAKER) (test 98 meq/L 98-107 pxvy=950) CO2 (BEAKER) (test furo=424) 22 meq/L 22-29 BLOOD UREA NITROGEN (BEAKER) 45 mg/dL 7-21 (test emgj=602) CREATININE (BEAKER) (test 3.68 mg/dL 0.57-1.25 zyvb=726) GLUCOSE RANDOM (BEAKER) 157 mg/dL 70-105 (test wahm=835) CALCIUM (BEAKER) (test 9.5 mg/dL 8.4-10.2 enjh=219) EGFR (BEAKER) (test 20 mL/min/1.73 sq m ESTIMATED GFR IS NOT lpan=4926) ACCURATE CREATININE CLEARANCE IN PREDICTING GLOMERULAR FILTRATION RATE. ESTIMATED GFR IS NOT APPLICABLE FOR DIALYSIS PATIENTS. CBC W/PLT COUNT & AUTO [id number] 12:44:00 Test Item Value Reference Range Comments WHITE BLOOD CELL COUNT (BEAKER) (test neal=282) 5.0 K/ L 3.5-10.5 RED BLOOD CELL COUNT (BEAKER) (test lwyf=401) 4.98 M/ L 4.63-6.08 HEMOGLOBIN (BEAKER) (test xmqk=158) 14.6 GM/DL 13.7-17.5 HEMATOCRIT (BEAKER) (test chal=879) 43.0 % 40.1-51.0 MEAN CORPUSCULAR VOLUME (BEAKER) (test nkgf=061) 86.3 fL 79.0-92.2 MEAN CORPUSCULAR HEMOGLOBIN (BEAKER) (test 29.3 pg 25.7-32.2 wenq=072) MEAN CORPUSCULAR HEMOGLOBIN CONC (BEAKER) (test 34.0 GM/DL 32.3-36.5 rgpl=574) RED CELL DISTRIBUTION WIDTH (BEAKER) (test 13.0 % 11.6-14.4 ajms=835) PLATELET COUNT (BEAKER) (test hqnw=075) 252 K/CU MM 150-450 MEAN PLATELET VOLUME (BEAKER) (test dmpg=394) 9.7 fL 9.4-12.4 NUCLEATED RED BLOOD CELLS (BEAKER) (test 0 /100 WBC 0-0 bnzn=551) NEUTROPHILS RELATIVE PERCENT (BEAKER) (test 71 % hpnl=898) LYMPHOCYTES RELATIVE PERCENT (BEAKER) (test 18 % bgvz=400) MONOCYTES RELATIVE PERCENT (BEAKER) (test 9 % wuag=490) EOSINOPHILS RELATIVE PERCENT (BEAKER) (test 1 % bawo=632) BASOPHILS RELATIVE PERCENT (BEAKER) (test 1 % nmyu=476) NEUTROPHILS ABSOLUTE COUNT (BEAKER) (test 3.52 K/ L 1.78-5.38 aymi=904) LYMPHOCYTES ABSOLUTE COUNT (BEAKER) (test 0.87 K/ L 1.32-3.57 tdsd=790) MONOCYTES ABSOLUTE COUNT (BEAKER) (test 0.46 K/ L 0.30-0.82 zxdq=667) EOSINOPHILS ABSOLUTE COUNT (BEAKER) (test 0.05 K/ L 0.04-0.54 ztop=524) BASOPHILS ABSOLUTE COUNT (BEAKER) (test 0.05 K/ L 0.01-0.08 uquc=198) IMMATURE GRANULOCYTES-RELATIVE PERCENT (BEAKER) 0 % 0-1 (test jkrs=7897) BASIC METABOLIC [id number] 15:02:00 Test Item Value Reference Range Comments SODIUM (BEAKER) (test 132 meq/L 136-145 gjyb=004) POTASSIUM (BEAKER) (test 3.8 meq/L 3.5-5.1 sgbt=854) CHLORIDE (BEAKER) (test 97 meq/L 98-107 etbd=665) CO2 (BEAKER) (test 24 meq/L 22-29 xxsq=574) BLOOD UREA NITROGEN 42 mg/dL 7-21 (BEAKER) (test ymex=762) CREATININE (BEAKER) (test 3.78 mg/dL 0.57-1.25 aawj=023) GLUCOSE RANDOM (BEAKER) 108 mg/dL 70-105 (test hxmy=921) CALCIUM (BEAKER) (test 9.4 mg/dL 8.4-10.2 zzhg=969) EGFR (BEAKER) (test 20 mL/min/1.73 sq m ESTIMATED GFR IS NOT edwj=9374) ACCURATE CREATININE CLEARANCE IN PREDICTING GLOMERULAR FILTRATION RATE. ESTIMATED GFR IS NOT APPLICABLE FOR DIALYSIS PATIENTS. Please draw at 2:00pmBASI METABOLIC [id number] 06:14:00 Test Item Value Reference Range Comments SODIUM (BEAKER) (test 133 meq/L 136-145 ycgn=193) POTASSIUM (BEAKER) (test 3.8 meq/L 3.5-5.1 vktx=584) CHLORIDE (BEAKER) (test 100 meq/L 98-107 wmso=034) CO2 (BEAKER) (test 23 meq/L 22-29 xtkk=625) BLOOD UREA NITROGEN 33 mg/dL 7-21 (BEAKER) (test uplo=504) CREATININE (BEAKER) (test 3.27 mg/dL 0.57-1.25 ewwh=725) GLUCOSE RANDOM (BEAKER) 87 mg/dL 70-105 (test ueuw=761) CALCIUM (BEAKER) (test 9.0 mg/dL 8.4-10.2 xujk=401) EGFR (BEAKER) (test 23 mL/min/1.73 sq m ESTIMATED GFR IS NOT wlzo=3865) ACCURATE CREATININE CLEARANCE IN PREDICTING GLOMERULAR FILTRATION RATE. ESTIMATED GFR IS NOT APPLICABLE FOR DIALYSIS PATIENTS. [id number] 06:03:00 Test Item Value Reference Range Comments PHOSPHORUS (BEAKER) (test wtmn=375) 2.7 mg/dL 2.3-4.7 [id number] 06:03:00 Test Item Value Reference Range Comments MAGNESIUM (BEAKER) (test vozp=246) 2.1 mg/dL 1.6-2.6 CBC W/PLT COUNT & AUTO [id number] 05:16:00 Test Item Value Reference Range Comments WHITE BLOOD CELL COUNT (BEAKER) (test dozm=210) 6.7 K/ L 3.5-10.5 RED BLOOD CELL COUNT (BEAKER) (test fxsf=300) 4.59 M/ L 4.63-6.08 HEMOGLOBIN (BEAKER) (test ejgs=945) 13.6 GM/DL 13.7-17.5 HEMATOCRIT (BEAKER) (test rfdu=712) 39.8 % 40.1-51.0 MEAN CORPUSCULAR VOLUME (BEAKER) (test uuqx=898) 86.7 fL 79.0-92.2 MEAN CORPUSCULAR HEMOGLOBIN (BEAKER) (test 29.6 pg 25.7-32.2 pymn=548) MEAN CORPUSCULAR HEMOGLOBIN CONC (BEAKER) (test 34.2 GM/DL 32.3-36.5 jlbl=552) RED CELL DISTRIBUTION WIDTH (BEAKER) (test 13.2 % 11.6-14.4 jbhn=772) PLATELET COUNT (BEAKER) (test frdw=515) 209 K/CU MM 150-450 MEAN PLATELET VOLUME (BEAKER) (test bujx=946) 10.2 fL 9.4-12.4 NUCLEATED RED BLOOD CELLS (BEAKER) (test 0 /100 WBC 0-0 ysbd=881) NEUTROPHILS RELATIVE PERCENT (BEAKER) (test 71 % vmyr=280) LYMPHOCYTES RELATIVE PERCENT (BEAKER) (test 16 % avuq=387) MONOCYTES RELATIVE PERCENT (BEAKER) (test 12 % mbbf=808) EOSINOPHILS RELATIVE PERCENT (BEAKER) (test 1 % kcri=838) BASOPHILS RELATIVE PERCENT (BEAKER) (test 0 % vwce=379) NEUTROPHILS ABSOLUTE COUNT (BEAKER) (test 4.75 K/ L 1.78-5.38 eirp=141) LYMPHOCYTES ABSOLUTE COUNT (BEAKER) (test 1.07 K/ L 1.32-3.57 akzd=310) MONOCYTES ABSOLUTE COUNT (BEAKER) (test 0.77 K/ L 0.30-0.82 mhfz=268) EOSINOPHILS ABSOLUTE COUNT (BEAKER) (test 0.06 K/ L 0.04-0.54 gkea=175) BASOPHILS ABSOLUTE COUNT (BEAKER) (test 0.03 K/ L 0.01-0.08 xnsm=609) IMMATURE GRANULOCYTES-RELATIVE PERCENT (BEAKER) 0 % 0-1 (test tisg=2799) IRON, TIBC, % SAT. (WITHOUT FERRITIN)2017-10-11 06:55:00 Test Item Value Reference Range Comments IRON (BEAKER) (test umxx=778) 49 ug/dL 40-160 TOTAL IRON BINDING CAPACITY (BEAKER) (test 236 ug/dL 250-450 near=234) IRON % SATURATION (2) (BEAKER) (test idfh=9887) 21 % 20-55 BASIC METABOLIC [id number] 05:41:00 Test Item Value Reference Range Comments SODIUM (BEAKER) (test 136 meq/L 136-145 oset=431) POTASSIUM (BEAKER) (test 3.7 meq/L 3.5-5.1 fvug=068) CHLORIDE (BEAKER) (test 102 meq/L 98-107 pwip=295) CO2 (BEAKER) (test 22 meq/L 22-29 gfqq=500) BLOOD UREA NITROGEN 25 mg/dL 7-21 (BEAKER) (test vdxx=031) CREATININE (BEAKER) (test 2.84 mg/dL 0.57-1.25 ebfo=658) GLUCOSE RANDOM (BEAKER) 99 mg/dL 70-105 (test pggb=498) CALCIUM (BEAKER) (test 9.4 mg/dL 8.4-10.2 eqyx=116) EGFR (BEAKER) (test 27 mL/min/1.73 sq m ESTIMATED GFR IS NOT kbrm=8355) ACCURATE CREATININE CLEARANCE IN PREDICTING GLOMERULAR FILTRATION RATE. ESTIMATED GFR IS NOT APPLICABLE FOR DIALYSIS PATIENTS. [id number] 05:36:00 Test Item Value Reference Range Comments PHOSPHORUS (BEAKER) (test vuvz=110) 2.8 mg/dL 2.3-4.7 [id number] 05:36:00 Test Item Value Reference Range Comments MAGNESIUM (BEAKER) (test mfna=879) 2.2 mg/dL 1.6-2.6 PTH, [id number] 05:33:00 Test Item Value Reference Range Comments PARATHYROID HORMONE INTACT (BEAKER) (test 212.3 pg/mL 8.5-72.5 ebxh=876) CBC W/PLT COUNT & AUTO [id number] 05:02:00 Test Item Value Reference Range Comments WHITE BLOOD CELL COUNT (BEAKER) (test yqbh=739) 8.8 K/ L 3.5-10.5 RED BLOOD CELL COUNT (BEAKER) (test wdoe=007) 4.89 M/ L 4.63-6.08 HEMOGLOBIN (BEAKER) (test kmar=376) 14.5 GM/DL 13.7-17.5 HEMATOCRIT (BEAKER) (test ukwf=386) 42.6 % 40.1-51.0 MEAN CORPUSCULAR VOLUME (BEAKER) (test qvht=149) 87.1 fL 79.0-92.2 MEAN CORPUSCULAR HEMOGLOBIN (BEAKER) (test 29.7 pg 25.7-32.2 eisj=176) MEAN CORPUSCULAR HEMOGLOBIN CONC (BEAKER) (test 34.0 GM/DL 32.3-36.5 adyv=890) RED CELL DISTRIBUTION WIDTH (BEAKER) (test 13.5 % 11.6-14.4 pbtp=238) PLATELET COUNT (BEAKER) (test uwcl=922) 205 K/CU MM 150-450 MEAN PLATELET VOLUME (BEAKER) (test obfr=000) 9.9 fL 9.4-12.4 NUCLEATED RED BLOOD CELLS (BEAKER) (test 0 /100 WBC 0-0 blij=582) NEUTROPHILS RELATIVE PERCENT (BEAKER) (test 76 % qbge=541) LYMPHOCYTES RELATIVE PERCENT (BEAKER) (test 13 % irse=893) MONOCYTES RELATIVE PERCENT (BEAKER) (test 9 % rrro=815) EOSINOPHILS RELATIVE PERCENT (BEAKER) (test 0 % baon=199) BASOPHILS RELATIVE PERCENT (BEAKER) (test 1 % cery=496) NEUTROPHILS ABSOLUTE COUNT (BEAKER) (test 6.68 K/ L 1.78-5.38 osfx=922) LYMPHOCYTES ABSOLUTE COUNT (BEAKER) (test 1.17 K/ L 1.32-3.57 hcpf=993) MONOCYTES ABSOLUTE COUNT (BEAKER) (test 0.82 K/ L 0.30-0.82 sqey=712) EOSINOPHILS ABSOLUTE COUNT (BEAKER) (test 0.02 K/ L 0.04-0.54 bqwb=471) BASOPHILS ABSOLUTE COUNT (BEAKER) (test 0.05 K/ L 0.01-0.08 agyo=767) IMMATURE GRANULOCYTES-RELATIVE PERCENT (BEAKER) 0 % 0-1 (test tcdd=9414) [id number] 06:36:00 Test Item Value Reference Range Comments PHOSPHORUS (BEAKER) (test iiip=218) 2.4 mg/dL 2.3-4.7 [id number] 06:36:00 Test Item Value Reference Range Comments MAGNESIUM (BEAKER) (test eedj=976) 1.8 mg/dL 1.6-2.6 BASIC METABOLIC [id number] 06:36:00 Test Item Value Reference Range Comments SODIUM (BEAKER) (test 137 meq/L 136-145 pzim=467) POTASSIUM (BEAKER) (test 3.6 meq/L 3.5-5.1 bily=208) CHLORIDE (BEAKER) (test 103 meq/L 98-107 fbhy=493) CO2 (BEAKER) (test 19 meq/L 22-29 jrxc=561) BLOOD UREA NITROGEN 22 mg/dL 7-21 (BEAKER) (test upmt=014) CREATININE (BEAKER) (test 2.53 mg/dL 0.57-1.25 onpf=992) GLUCOSE RANDOM (BEAKER) 148 mg/dL 70-105 (test uhly=143) CALCIUM (BEAKER) (test 9.3 mg/dL 8.4-10.2 srmp=301) EGFR (BEAKER) (test 31 mL/min/1.73 sq m ESTIMATED GFR IS NOT jrzf=6591) ACCURATE CREATININE CLEARANCE IN PREDICTING GLOMERULAR FILTRATION RATE. ESTIMATED GFR IS NOT APPLICABLE FOR DIALYSIS PATIENTS. CBC W/PLT COUNT & AUTO [id number] 05:59:00 Test Item Value Reference Range Comments WHITE BLOOD CELL COUNT (BEAKER) (test hgkb=239) 13.3 K/ L 3.5-10.5 RED BLOOD CELL COUNT (BEAKER) (test fxav=274) 5.12 M/ L 4.63-6.08 HEMOGLOBIN (BEAKER) (test eseb=150) 14.8 GM/DL 13.7-17.5 HEMATOCRIT (BEAKER) (test hdwb=271) 44.7 % 40.1-51.0 MEAN CORPUSCULAR VOLUME (BEAKER) (test iesz=064) 87.3 fL 79.0-92.2 MEAN CORPUSCULAR HEMOGLOBIN (BEAKER) (test 28.9 pg 25.7-32.2 vwmx=468) MEAN CORPUSCULAR HEMOGLOBIN CONC (BEAKER) (test 33.1 GM/DL 32.3-36.5 hkkp=197) RED CELL DISTRIBUTION WIDTH (BEAKER) (test 13.4 % 11.6-14.4 wkyy=204) PLATELET COUNT (BEAKER) (test iuss=981) 235 K/CU MM 150-450 MEAN PLATELET VOLUME (BEAKER) (test wcrk=063) 10.8 fL 9.4-12.4 NUCLEATED RED BLOOD CELLS (BEAKER) (test 0 /100 WBC 0-0 iefk=000) NEUTROPHILS RELATIVE PERCENT (BEAKER) (test 93 % rrou=432) LYMPHOCYTES RELATIVE PERCENT (BEAKER) (test 3 % sdjw=864) MONOCYTES RELATIVE PERCENT (BEAKER) (test 3 % bezg=144) EOSINOPHILS RELATIVE PERCENT (BEAKER) (test 0 % dleg=853) BASOPHILS RELATIVE PERCENT (BEAKER) (test 0 % mcrd=042) NEUTROPHILS ABSOLUTE COUNT (BEAKER) (test 12.42 K/ L 1.78-5.38 ratg=727) LYMPHOCYTES ABSOLUTE COUNT (BEAKER) (test 0.39 K/ L 1.32-3.57 hpee=097) MONOCYTES ABSOLUTE COUNT (BEAKER) (test 0.43 K/ L 0.30-0.82 ejqn=396) EOSINOPHILS ABSOLUTE COUNT (BEAKER) (test 0.00 K/ L 0.04-0.54 nglx=199) BASOPHILS ABSOLUTE COUNT (BEAKER) (test 0.04 K/ L 0.01-0.08 wbeh=564) IMMATURE GRANULOCYTES-RELATIVE PERCENT (BEAKER) 0 % 0-1 (test qvir=9985) [id number] 19:38:00 Test Item Value Reference Range Comments PHOSPHORUS (BEAKER) (test wkao=359) 2.8 mg/dL 2.3-4.7 [id number] 19:38:00 Test Item Value Reference Range Comments MAGNESIUM (BEAKER) (test gdld=103) 1.7 mg/dL 1.6-2.6 BASIC METABOLIC [id number] 19:35:00 Test Item Value Reference Range Comments SODIUM (BEAKER) (test 139 meq/L 136-145 mnfh=613) POTASSIUM (BEAKER) (test 3.7 meq/L 3.5-5.1 hfwy=234) CHLORIDE (BEAKER) (test 109 meq/L 98-107 xehp=600) CO2 (BEAKER) (test 20 meq/L 22-29 xilg=848) BLOOD UREA NITROGEN 18 mg/dL 7-21 (BEAKER) (test cqsb=481) CREATININE (BEAKER) (test 2.10 mg/dL 0.57-1.25 ydyq=840) GLUCOSE RANDOM (BEAKER) 148 mg/dL 70-105 (test fagg=396) CALCIUM (BEAKER) (test 8.7 mg/dL 8.4-10.2 ajsv=142) EGFR (BEAKER) (test 39 mL/min/1.73 sq m ESTIMATED GFR IS NOT jdzd=7395) ACCURATE CREATININE CLEARANCE IN PREDICTING GLOMERULAR FILTRATION RATE. ESTIMATED GFR IS NOT APPLICABLE FOR DIALYSIS PATIENTS. HEMOGLOBIN AND [id number] 19:07:00 Test Item Value Reference Range Comments HEMOGLOBIN (BEAKER) (test iden=795) 13.7 GM/DL 13.7-17.5 HEMATOCRIT (BEAKER) (test ifdh=688) 40.5 % 40.1-51.0 URINE [id number] 13:12:00 Test Item Value Reference Range Comments CULTURE (BEAKER) (test vshh=3349) No growth BASIC METABOLIC [id number] 17:19:00 Test Item Value Reference Range Comments SODIUM (BEAKER) (test 138 meq/L 136-145 lcms=333) POTASSIUM (BEAKER) (test 4.4 meq/L 3.5-5.1 Specimen slightly vidp=259) hemolyzed CHLORIDE (BEAKER) (test 103 meq/L 98-107 chau=832) CO2 (BEAKER) (test 27 meq/L 22-29 xzgm=483) BLOOD UREA NITROGEN 19 mg/dL 7-21 (BEAKER) (test lpoz=697) CREATININE (BEAKER) (test 2.11 mg/dL 0.57-1.25 Specimen slightly qbzw=625) hemolyzed GLUCOSE RANDOM (BEAKER) 98 mg/dL 70-105 (test jqpa=277) CALCIUM (BEAKER) (test 9.6 mg/dL 8.4-10.2 lgou=226) EGFR (BEAKER) (test 38 mL/min/1.73 sq m ESTIMATED GFR IS NOT yyse=1209) ACCURATE CREATININE CLEARANCE IN PREDICTING GLOMERULAR FILTRATION RATE. ESTIMATED GFR IS NOT APPLICABLE FOR DIALYSIS PATIENTS. URINALYSIS W/ [id number] 17:15:00 Test Item Value Reference Range Comments COLOR (BEAKER) (test hjit=911) Yellow CLARITY (BEAKER) (test fboa=217) Clear SPECIFIC GRAVITY UA (BEAKER) (test infn=794) 1.013 1.001-1.035 PH UA (BEAKER) (test avfu=407) 6.0 5.0-8.0 PROTEIN UA (BEAKER) (test orce=061) 100 mg/dL Negative GLUCOSE UA (BEAKER) (test jyse=544) Negative Negative KETONES UA (BEAKER) (test hgeb=639) Negative Negative BILIRUBIN UA (BEAKER) (test beiy=500) Negative Negative BLOOD UA (BEAKER) (test ocfd=080) Trace Negative NITRITE UA (BEAKER) (test shvq=587) Negative Negative LEUKOCYTE ESTERASE UA (BEAKER) (test jjoz=392) Negative Negative UROBILINOGEN UA (BEAKER) (test xtta=059) 0.2 mg/dL 0.2-1.0 RBC UA (BEAKER) (test lhhb=083) 7 /HPF WBC UA (BEAKER) (test klhx=007) 2 /HPF MUCUS (BEAKER) (test zfvp=2656) Rare SOURCE(BEAKER) (test ggir=0085) [id number] 17:07:00 Test Item Value Reference Range Comments PARTIAL THROMBOPLASTIN TIME (BEAKER) (test 28.1 seconds 22.5-36.0 gaxh=253) PROTHROMBIN [id number] 17:06:00 Test Item Value Reference Range Comments PROTIME (BEAKER) (test fjtc=801) 13.6 seconds 11.7-14.7 INR (BEAKER) (test ribe=393) 1.0 <=5.9 RECOMMENDED COUMADIN/WARFARIN INR THERAPY RANGESSTANDARD DOSE: 2.0 - 3.0 Includes: PROPHYLAXIS forvenous thrombosis, systemic embolization; TREATMENT for venous thrombosis and/or pulmonary embolus.HIGH RISK: Target INR is 2.5-3.5 for patients with mechanical heart valves.CBC W/PLT COUNT & AUTO [id number] 16:53:00 Test Item Value Reference Range Comments WHITE BLOOD CELL COUNT (BEAKER) (test gtna=526) 4.1 K/ L 3.5-10.5 RED BLOOD CELL COUNT (BEAKER) (test ubdv=629) 4.79 M/ L 4.63-6.08 HEMOGLOBIN (BEAKER) (test bvdl=837) 13.8 GM/DL 13.7-17.5 HEMATOCRIT (BEAKER) (test atkw=750) 42.2 % 40.1-51.0 MEAN CORPUSCULAR VOLUME (BEAKER) (test pprn=141) 88.1 fL 79.0-92.2 MEAN CORPUSCULAR HEMOGLOBIN (BEAKER) (test 28.8 pg 25.7-32.2 uktz=918) MEAN CORPUSCULAR HEMOGLOBIN CONC (BEAKER) (test 32.7 GM/DL 32.3-36.5 cytc=188) RED CELL DISTRIBUTION WIDTH (BEAKER) (test 13.2 % 11.6-14.4 cikm=604) PLATELET COUNT (BEAKER) (test juyk=311) 188 K/CU MM 150-450 MEAN PLATELET VOLUME (BEAKER) (test xmdo=432) 10.3 fL 9.4-12.4 NUCLEATED RED BLOOD CELLS (BEAKER) (test 0 /100 WBC 0-0 hfam=672) NEUTROPHILS RELATIVE PERCENT (BEAKER) (test 49 % wlua=195) LYMPHOCYTES RELATIVE PERCENT (BEAKER) (test 36 % pmeg=515) MONOCYTES RELATIVE PERCENT (BEAKER) (test 12 % ldgs=999) EOSINOPHILS RELATIVE PERCENT (BEAKER) (test 2 % isxc=564) BASOPHILS RELATIVE PERCENT (BEAKER) (test 1 % jwyq=861) NEUTROPHILS ABSOLUTE COUNT (BEAKER) (test 2.00 K/ L 1.78-5.38 zfyx=887) LYMPHOCYTES ABSOLUTE COUNT (BEAKER) (test 1.47 K/ L 1.32-3.57 vhpr=543) MONOCYTES ABSOLUTE COUNT (BEAKER) (test 0.49 K/ L 0.30-0.82 gdng=451) EOSINOPHILS ABSOLUTE COUNT (BEAKER) (test 0.07 K/ L 0.04-0.54 jeul=569) BASOPHILS ABSOLUTE COUNT (BEAKER) (test 0.03 K/ L 0.01-0.08 emhr=366) IMMATURE GRANULOCYTES-RELATIVE PERCENT (BEAKER) 0 % 0-1 (test rdcu=4366) TISSUE [id number] 11:47:00Surgical Pathology Report Case: [id number] Authorizing Provider: Malcom Castaneda Collected: 03/02/2017 1029 MD Cinthia [facility] Received: 2016 1140 Pathologist: [...] Intradepartmental consultation: Dr. Koko Whitney, Dr. Umu Manzanares/[id number] , [id number], [id number] x2Left kidney biopsy [facility] massThe specimen is received in fixative and [...] and its performance characteristics determined by [facility], Pathology Laboratory. It has not been [...] qualified to perform high complexity clinical laboratory testing.[id number] 08:19:00 Test Item Value Reference Range Comments PROTIME (BEAKER) (test njcg=295) 10.0 seconds 9.3-12.0 INR (BEAKER) (test rdnz=559) 0.9 <=5.9 PARTIAL THROMBOPLASTIN TIME (BEAKER) (test 27.3 seconds 23.0-35.0 wthq=302) RECOMMENDED COUMADIN/WARFARIN INR THERAPY RANGESSTANDARD DOSE: 2.0 - 3.0 Includes: PROPHYLAXIS forvenous thrombosis, systemic embolization; TREATMENT for venous thrombosis and/or pulmonary embolus.HIGH RISK: Target INR is 2.5-3.5 for patients with mechanical heart valves.CBC W/PLT COUNT & AUTO [id number] 08:14:00 Test Item Value Reference Range Comments WHITE BLOOD CELL COUNT (BEAKER) (test swci=995) 4.3 K/ L 4.0-10.0 RED BLOOD CELL COUNT (BEAKER) (test wvlk=155) 4.76 M/ L 4.20-5.80 HEMOGLOBIN (BEAKER) (test hmex=195) 14.1 GM/DL 13.0-16.8 HEMATOCRIT (BEAKER) (test hrkb=728) 41.7 % 40.0-50.0 MEAN CORPUSCULAR VOLUME (BEAKER) (test tmtb=065) 87.6 fL 82.0-98.0 MEAN CORPUSCULAR HEMOGLOBIN (BEAKER) (test 29.7 pg 27.0-33.0 flxf=107) MEAN CORPUSCULAR HEMOGLOBIN CONC (BEAKER) (test 33.9 GM/DL 32.0-36.0 fjnn=481) RED CELL DISTRIBUTION WIDTH (BEAKER) (test 12.9 % 10.3-14.2 yofl=679) PLATELET COUNT (BEAKER) (test cype=778) 212 K/CU MM 150-430 MEAN PLATELET VOLUME (BEAKER) (test gwqf=994) 8.0 fL 6.5-10.5 NUCLEATED RED BLOOD CELLS (BEAKER) (test 0 /100 WBC 0-0 ezbn=842) NEUTROPHILS RELATIVE PERCENT (BEAKER) (test 57 % tuat=256) LYMPHOCYTES RELATIVE PERCENT (BEAKER) (test 32 % gbsb=601) MONOCYTES RELATIVE PERCENT (BEAKER) (test 9 % qbxu=243) EOSINOPHILS RELATIVE PERCENT (BEAKER) (test 2 % dwkq=813) BASOPHILS RELATIVE PERCENT (BEAKER) (test 1 % lyak=429) NEUTROPHILS ABSOLUTE COUNT (BEAKER) (test 2.50 K/ L 1.80-8.00 pwnj=472) LYMPHOCYTES ABSOLUTE COUNT (BEAKER) (test 1.40 K/ L 1.48-4.50 jcfe=133) MONOCYTES ABSOLUTE COUNT (BEAKER) (test 0.40 K/ L 0.00-1.30 opfc=546) EOSINOPHILS ABSOLUTE COUNT (BEAKER) (test 0.10 K/ L 0.00-0.50 xhqf=931) BASOPHILS ABSOLUTE COUNT (BEAKER) (test 0.00 K/ L 0.00-0.20 mzzc=161)
[2019-03-31 18:12] LABS: Urine Appearance CLEAR; Urine Bilirubin NEGATIVE (NEG); Urine Blood NEGATIVE (NEG); Urine Color YELLOW; Urine Glucose NEGATIVE (NEG); Urine Protein NEGATIVE (NEG); Urine Urobilinogen 0.2 mg/dL (0.2-1.0); Urine pH 5.5 (5.0-7.0)
--- NOTE | 2019-03-31 18:16 | R.HP ---
FACILITY: [facility] ENCOUNTER DATE AND TIME: 03/31/2019 18:10 (CDT) MR#: [id number] NAME JENNIFER LOW ADDRESS: [place] [address] CITY: [place] [address] [address] PHONE: DATE OF : 1950 AGE: 68 SSN# [id number] GENDER: Male DEXTERITY Right-handed MARITAL STATUS RACE Black PRE-HOSPITAL LIVING SETTING 01 - Home (private home/apt. board/care, assisted living, skilled nursing, transitional living) PRE-HOSPITAL LIVING WITH Family/Relatives ENCOUNTER PHYSICIAN: Dr. Hardik Hector M.D. REFERRING DOCTOR: gary Chakraborty DATE OF ADMISSION: 03/31/2019 17:15 (CDT) REFERRING FACILITY [facility] HOME TYPE AND DETAILS: Type of home: apartment # of steps within the residence: 0 # of levels in the residence: 2 # of steps to enter the residence: 12 ADMISSION DIAGNOSIS: Acute Right Cerebellar Infarct ONSET DATE: 03/27/2019 PRIMARY DIAGNOSIS-RELATED SURGERIES: No surgeries related to the primary diagnosis were performed. SECONDARY/COMORBID DIAGNOSES (TIERED): - N/A Hypertension Chronic Renal Disease Stage 4 Gout History of left mass with nephrectomy HISTORY OF PRESENT ILLNESS (HPI): Pt. is a 68 yo Right-handed black male. On 03/27/2019 Pt. presented to [facility] with sudden onset of left-side weakne ss. On 03/27/2019 he was admitted to [facility] with diagnosis Acute Right Cerebell ar Infarct. His impairment category is Stroke 01 - Left Body (Right Brain) (01.1). Pre-morbidly, Pt. was independent/mod-I in Self-Care, Sphincter Control, Transfers Control, Locomotio n, Communication, and Social Cognition; and he had good Sphincter Control. Currently, he has deficits of Self-Care, Transfers Control, Locomotion, Endurance, Balance, and Safet y Awareness. Pt. is now referred to [facility] for acute in-patient rehabilitation in order to maximize patient's functional independence in activities of daily living, strength, ROM, and mobi lity. Patient has realistic goal of being discharged at assistance level 6-Yarely to reside at Home with Fam saloni/Relatives. Jennifer Low is a 68 old male that lives with his in an upstairs apartment with 8-12 stairs with bilateral handrails. Patient was independent with ADLs and self care and sometimes uses SC for ambulation. On 03/27/2019, he had vertigo, dysarthria, ataxic and his blood pressure is poorly controlled and was admitted at [facility]. He is now medically stable but in need of 24-hour nursing, doctor supervision and oversite while receiving in 3hours of therapy a day/15 hours per week and receive care with an intensive interdisciplinary approach. MEDICATION ALLERGIES: No Known Drug Allergies (NKDA) ENVIRONMENTAL ALLERGIES: None Known - Substance Allergies None Known - Other Allergies None Known PAST MEDICAL HISTORY: Chronic Renal Disease Stage 4 Gout History of left mass with nephrectomy Hypertension PAST SURGICAL HISTORY: Left Nephrectomy FAMILY HISTORY: Family history is not contributory. SOCIAL HISTORY: - Home Living Family/Relatives REVIEW OF SYSTEMS: - Gen No Chills Fatigue No Fever - Eyes No Double Vision No itchiness - ENMT No Difficulty Swallowing - CVS No Chest Discomfort No Chest Pain Fatigue No Weight Gain - Resp No Cough No Shortness of Breath - GI Continent No Abdominal Pain No Constipation No Diarrhea - Continent No Kidney Pain No Painful Urination No Urinary Urgency - MSK No Joint Pain Muscle Cramps Stiffness - Skin No Itching No Rash No Suspicious Lesions - Neuro Coordination Difficulty Difficulty with Concentration Memory Loss No Seizures Weakness - Psych No Anxiety No Depression No HIV Exposure No Persistent Infections No Seasonal Allergies - Endo No Cold/Heat Intolerance No Excessive Hunger No Excessive Thirst No Excessive Urination PHYSICAL EXAM - Gen Alert and awake Lying in bed No apparent distress Oriented to: person, time, and place - Skin No breakdown No abnormalities - Eyes No abnormalities - ENMT No abnormalities - Neck No abnormalities - CVS RRR - Chest No abnormalities - Resp Clear to auscultation - Abd Soft - GI Soft Deferred - No abnormalities - Ext No significant edema - MSK 4+/5 weakness in left upper and lower extremity - Neuro 4/5 strength left upper and lower extremities. - Psych No abnormalities VITAL SIGNS Temperature: 97.6 F SBP/DBP: 169/80 Pulse: 63 Resp: 16 NURSING: - Shower allowing shower - Bladder care per protocol - Skin care per protocol PRECAUTIONS: - Weight Bearing Precaution WBAT left LE ACTIVITIES OOB only with supervision FUNCTIONAL STATUS: - Self-Care A. Eating Ind sup B. Grooming Ind sup C. Bathing Ind sup D. Dressing - Upper Ind sup E. Dressing - Lower Ind sup F. Toileting Ind Ankita - Sphincter Control G: Bladder control Ind Ind H: Bowel control Ind Ind - Transfers Control I. Bed/Chair/Wheelchair Ind CGA J. Toilet Ind CGA K. Tub/Shower Ind ADNO - Locomotion L. Walk/Wheelchair (C) Ind CGA L. Walk/Wheelchair (W) Ind CGA M. Stairs Ind ADNO - Communication N. Comprehension (B) Ind Yarely O. Expression (B) Ind Yarely - Social Cognition P. Social Interaction Ind Yarely Q. Problem Solving Ind Yarely R. Memory Ind Yarely - Endurance Fair - Balance Fair - Safety Awareness Fair CURRENT FUNC. DEFICITS: Self-Care, Transfers Control, Locomotion, Endurance, Balance, and Safety Awareness MEDICATIONS: - Other See attached MAR (Medication Administration Record) Jennifer Low.pdf ASSESSMENT: Pt. is a 68 yo Right-handed black male.On 03/27/2019 Pt. presented to [facility] with sudden onset of left-side weakness.On 03/27/2019 he was admitted to [facility] with diagnosis Acute Right Cerebellar Infarct.His impairment category is Stroke 01 - Left Bod y (Right Brain) (01.1).Pre-morbidly, Pt. was independent/mod-I in Self-Care, Sphincter Control, Trans fers Control, Locomotion, Communication, and Social Cognition; and he had good Sphincter Control.Curr ently, he has deficits of Self-Care, Transfers Control, Locomotion, Endurance, Balance, and Safety Aw areness.Pt. is now referred to [facility] for acute in-patient rehabilitation in order to maximize patient's functional independence in activities of daily living, strength, ROM, and mobility.- Rehab Goal Patient has realistic goal of being discharged at assistance level 6-Yarely to reside at Home with Fam saloni/Relatives. Jennifer Low is a 68 old male that lives with his in an upstairs apartment with 8-12 stairs with bilateral handrails. Patient was independent with ADLs and self care and sometimes uses SC for ambulation. On 03/27/2019, he had vertigo, dysarthria, ataxic and his blood pressure is poorly controlled and was admitted at [facility]. He is now medically stable but in need of 24-hour nursing, doctor supervision and oversite while receiving in 3hours of therapy a day/15 hours per week and receive care with an intensive interdisciplinary approach.REHAB PLAN: for Dementia, TBI, Stroke, or others - Physical Therapy Gait dysfunction - to improve, our physical therapists will perform initial evaluation of pt's statu s upon admission and devise an individualized program for Gait Training, and Wheel Chair mobility Inability to transfer - to improve, our physical therapists will perform initial evaluation of pt's status upon admission and devise an individualized program for Bed mobility Need for home safety evaluation - to improve, our physical therapists will perform initial evaluatio n of pt's status upon admission and devise an individualized program for Home Evaluation Need in caregiver upon discharge - to improve, our physical therapists will perform initial evaluati on of pt's status upon admission and devise an individualized program for Caregiver Training New precaution - to improve, our physical therapists will perform initial evaluation of pt's status upon admission and devise an individualized program for Patient precaution education Poor balance - to improve, our physical therapists will perform initial evaluation of pt's status up on admission and devise an individualized program for Balance Training Poor endurance - to improve, our physical therapists will perform initial evaluation of pt's status upon admission and devise an individualized program for Endurance Training Weakness - to improve, our physical therapists will perform initial evaluation of pt's status upon a dmission and devise an individualized program for Aquatic Therapy, Neuromuscular Reeducation, and Str engthening Edema - to improve, our physical therapists will perform initial evaluation of pt's status upon admi ssion and devise an individualized program for Elevation Training, and Lymphedema Therapy - Occupational Therapy ADL deficits - to improve, our occupation therapists will perform initial evaluation of pt's status upon admission and devise an individualized program for Bathing, Bed mobility, Community Reintegratio n, Cooking, Dressing, Eating, Fine Motor Skills, Grooming, Homemaking, Kitchen Mobility, Laundry, Pat ient Education, Safety Awareness, Splinting - Positioning, Transfers(Toilet, Tub, Shower), and Wheel Chair Management Need for laboratory animal caretaker - to improve, our occupation therapists will perform initial evaluation of pt's status upon admission and devise an individualized program for Caregiver Training Weakness - to improve, our occupation therapists will perform initial evaluation of pt's status upon admission and devise an individualized program for Aquatic Therapy, Balance, Endurance, UE ROM, and UE strengthening MEDICAL PLAN: - Bladder care per protocol - Weight Bearing Precaution WBAT left LE - Skin care per protocol - Other See attached MAR (Medication Administration Record) - Diet - Solid Texture Start Regular - Shower allowing shower DISCHARGE PLAN: - Estimated Length of Stay (days) 17. - Consensus on plan Discharge plan has been discussed with primary caregiver. Patient/Family is in agreement with the beverly n. Primary caregiver is in agreement with the plan. - Patient/Family Goals Return home with assistance. - Planned Living Setting Upon Discharge Home, to live with Family/Relatives. Transitional Living. SIGNATURE PANEL: (CDT)
--- NOTE | 2019-03-31 18:18 | PAPE ---
PATIENT: [facility] MR# [id number] REFERRING DOCTOR gary Chakraborty EVALUATION DATE AND TIME 03/31/2019 18:16 (CDT) NAME JENNIFER BELLA DATE OF 1950 AGE 68 PHONE SSN# [id number] GENDER male EVALUATING PHYSICIAN Dr. Hardik Hector M.D. ADMISSION DIAGNOSIS: Acute Right Cerebellar Infarct ONSET DATE 03/27/2019 SECONDARY/COMORBID DIAGNOSES TIERED: - N/A Hypertension Chronic Renal Disease Stage 4 Gout History of left mass with nephrectomy POST-ADMISSION FUNCTIONAL/MEDICAL STATUS: - Bladder Same accident frequency: Ind - No accidents in the past 7 days - Bowel Same accident frequency: Ind - No accidents in the past 7 days - Walking Same score based on distance walked: 3(>=150ft) - Wheelchair Same score based on distance traveled: 0(N/A) STATUS CHANGE EVALUATION: No change in Functional or Medical Status is identified compared with Pre-Admission screening. PATIENT NEEDS CLOSE MEDICAL SUPERVISION BY A REHABILITATION PHYSICIAN FOR: Bowel and Bladder Management Coordination of Treatment Team Medical and Co-Morbidity Management PATIENT REQUIRES 24X7 REHAB NURSING FOR MEDICAL AND FUNCTIONAL MGT. OF THE FOLLOWING DEFICITS: ADL's Ambulation Bowel and Bladder Management Cognition Communication Disease Management Medication Management Patient/Family Education Providing Safe Environment Transfers DVT Management Pain Management PATIENT REQUIRES INTENSIVE, COORDINATED INTERDISCIPLINARY APPROACH TO REHAB: Arranging Home Equipment/Services Discharge Planning Family Intervention/Training Quality Improvement Consultant/Case Management LIST OF IDENTIFIED AND POTENTIAL PROBLEMS: Alteration in leisure activities Bladder, Incontinence Blood Pressure, Hypertension/hypotension Issues Bowel, Incontinence Infection, Actual or Potential Mobility Impaired Pain, Alteration in Comfort Self Care Deficit Skin Integrity, Actual or Potential Urinary Tract Infection (UTI), Actual or Potential RISK FOR COMPLICATIONS - Hypertension CVA. Hypotension. TN. TIA. INTERVENTIONS - Hypertension PATIENT COULD BE AT RISK FOR COMPLICATIONS FROM ADVERSE MEDICAL CONDITIONS DUE TO HIS/HER COMORBIDITI ES AND THE RIGORS OF THE INTENSIVE REHABILLITATION PROGRAM. METHODS OR INTERVENTIONS TO AVOID COMPLIC ATIONS INCLUDE: - Bleeding Stroke patients assessed for lethargy or change in status. - Infection Clinical staff to assess and manage the signs and symptoms of infection including fever, redness, war mth, etc. - Urinary Tract Infection - Aspiration Clinical staff will assess and manage coughing, drooling, congestion. - Falls Patient will be evaluated for Fall Precautions and will be placed on Fall Precautions as indicated pe r protocol. - Skin Breakdown Nursing will assess skin daily using assessment tool and will place on Skin Breakdown Precautions as indicated per protocol. - Pain Clinical staff may employ non-medication methods such as massage, distraction, decrease stimulus, etc . as needed. Clinical staff will assess patient's pain level every shift per protocol to assess and e nsure pain management effectiveness. Medications will be given and the pain level re-assessed. PRELIMINARY PLAN OF CARE: - Physical Therapy Patient needs Physical Therapy for a daily minimum of 1.5 hours at least 5 out of 7 days, to improve: Mobility, Strengthening, Transfers, Stretching, ROM, Endurance, Ability to manage stairs, Gait, and Balance. - Speech Therapy Patient needs Speech Therapy for a daily minimum of 0.5 hours at least 5 out of 7 days, to improve: S wallowing, Cognition, Language Skills, and Compensatory Strategies. - Rehabilitation Nursing Patient requires 24x7 Rehabilitation Nursing for: Pain Issues, Identifying and preventing risk factor s, Monitoring and reporting current medical conditions, Assisting with ambulation and transfer, Virgilio ting with all ADL-s, Teaching patients about disease process and medications, Family teaching, Provid ing safe environment, Bowel and Bladder Issues, Skin Integrity, and Medication Management. Patient needs Quality Improvement Consultant and/or Case Management for: Discharge Planning, Arranging Home Equipmen t or Services, and Family Interventions. - Dietary and Nutrition Services Patient needs Dietary and Nutrition Services for: Adequate Nutrition, Nutritional Supplements, and Nu tritional Education. - Occupational Therapy Patient needs Occupational Therapy for a daily minimum of 1.5 hours at least 5 out of 7 days, to impr ove Activities of Daily Living, including: Eating, Grooming, Bathing, Dressing, Toileting, Toilet Tra nsfers, Community Reintegration, Higher functional activities, Adaptive Equipment, Splinting, Househo ld Tasks, and Other activities as determined. POTENTIAL FUNCTIONAL GOALS FOR PATIENT TO ACHIEVE BY DISCHARGE: - Safety Precaution Patient will remain free from falls or injury at time of discharge. - Bed Mobility Patient will perform bed mobility at 4-Ankita level of assistance. - Transfers Patient will complete transfers from bed to chair at 4-Ankita level of assistance. - Mobility Patient will ambulate 150 ft with 4-Ankita level of assistance with RW. PATIENT REHAB POTENTIAL Michael BELLA is able and expected to receive 3 hours of individualized therapy daily on at least 5 of macarena ry 7 days Michael BELLA's prognosis for significant practical improvement within a reasonable period of time appears Good Expected level of measurable improvement will be of a practical value to Michael BELLA's functional capaci ty or adaptations to impairments Has a viable Discharge Plan Medically appropriate; condition is sufficiently stable to participate in intensive rehab program DISCHARGE PLAN: - Estimated Length of Stay (days) 17. - Consensus on plan Discharge plan has been discussed with primary caregiver. Patient/Family is in agreement with the beverly n. Primary caregiver is in agreement with the plan. - Patient/Family Goals Return home with assistance. - Planned Living Setting Upon Discharge Home, to live with Family/Relatives. Transitional Living. CONCLUSION ON REHABILITATION NECESSITY: I have evaluated patient's pre-admission functional status and, comparing it to the patient's post-ad mission functional status now, I conclude that the pre-admission assessment was accurate. Patient's c ondition on admission supports the medical necessity of admission to [facility]. It is safe to proceed with patient's therapy program. SIGNATURE PANEL: (CDT)
[2019-03-31] MEDS: HYDRALAZINE HCL 10 MG TABLET PO SCH (19:04)
[2019-03-31] MEDS: ATORVASTATIN 40 MG TAB PO SCH (19:04)
[2019-03-31] MEDS: cloNIDine HCl 0.1 MG TAB PO SCH (19:04)
[2019-03-31 19:22] LABS: Urine Bacteria NONE SEEN /HPF (NONE SEEN); Urine Culture Reflex Order NOT NEEDED; Urine RBC <5 /HPF (NONE SEEN)
[2019-04-01] MEDS: ENOXAPARIN 30 MG/0.3 ML SQ SCH (06:42)
[2019-04-01 06:50] LABS: Absolute Lymphocytes (CBC) 1.1 K/uL (0.7-4.9); Basophils % 0.4 % (0-1.3); Hematocrit 37.2 % (39.6-49.0); Lymphocytes % 29.6 % (15.3-44.8); MPV 8.4 fL (7.6-11.3); RBC Red Blood Cell Count 4.13 M/uL (4.33-5.43)
[2019-04-01] MEDS: cloNIDine HCl 0.1 MG TAB PO SCH ×2 (07:08→18:49)
[2019-04-01 07:12] LABS: Albumin 3.2 g/dL (3.4-5.0); Potassium 4.4 mmol/L (3.5-5.1); Prealbumin 19.6 mg/dL (20-40)
[2019-04-01] MEDS ORDERED: PNEUMOCOCCAL VACCINE 0.5 ML IMVAC ONE (08:00)
[2019-04-01] MEDS: CLOPIDOGREL 75 MG TABLET PO SCH (08:51)
[2019-04-01] MEDS: LACTULOSE 20 GM/30 ML UCUP PO SCH (08:51)
[2019-04-01] MEDS: ALLOPURINOL 100 MG TAB PO SCH (08:51)
[2019-04-01] MEDS: HYDRALAZINE HCL 10 MG TABLET PO SCH ×3 (10:15→18:49)
[2019-04-01] MEDS: AMLODIPINE 10 MG TAB PO SCH (12:13)
--- NOTE | 2019-04-01 13:48 | FAST ---
SHIFT START DATE/TIME: 04/01/2019 07:00 (CDT) SHIFT END DATE/TIME: 04/01/2019 19:00 (CDT) NAME JENNIFER BELLA DATE OF : 1950 DATE OF ADMISSION: 03/31/2019 17:15 (CDT) PHONE: AGE: 68 N# [id number] GENDER: Male ENCOUNTER PHYSICIAN: Dr. Hardik Hector M.D. ADMISSION DIAGNOSIS: - Stroke 01 - Left Body (Right Brain) (01.1) Acute Right Cerebellar Infarct. EATING: EATING - STEP 1: Does the patient require the assistance of a person or device, or need extra time when eating? Yes. EATING - STEP 2: Does the patient require the assistance of a helper? No, patient only requires an assistive device, O R s/he takes more than reasonable time to eat, OR there is a safety concern, OR s/he requires modifie d food consistency EATING - SCORE: 6-BRIT GROOMING: Activity did not occur on this shift GROOMING - SCORE: 0-UNK BATHING: Activity did not occur on this shift BATHING - SCORE: 0-UNK DRESSING - UPPER BODY: Activity did not occur on this shift ARTICLES SCORE Total number of steps: 0 DRESSING - UPPER BODY - SCORE: 0-UNK DRESSING - LOWER BODY: Activity did not occur on this shift ARTICLES SCORE Total number of steps: 0 DRESSING - LOWER BODY - SCORE: 0-UNK TOILETING: TOILETING - STEP 1: Does the patient require the assistance of a person or device, or need extra time with toileting? Yes . TOILETING - STEP 2: Does the patient require the assistance of a helper? Yes. TOILETING - STEP 3: How much assistance does the patient require from the helper? Hands-on assistance from the helper TOILETING - STEP 4: Of the 3 tasks: 1) Adjusting clothing prior to use, 2) Cleansing of perineal area, 3) Adjusting clot ricci after use; How many tasks does the patient perform WITHOUT assistance of the helper? Three tasks with steadying assistance from the helper TOILETING - SCORE: 4-MIN BLADDER MANAGEMENT: BLADDER MANAGEMENT - STEP 1: Does the patient control the bladder completely and intentionally without equipment or devices or med ications, and is always continent? No. BLADDER MANAGEMENT - STEP 2: Does the patient require the assistance of a helper? No, patient requires and independently uses an a ssistive device, such as a urinal, bedpan, bedside commode, catheter, absorbent pad, or collecting de vice BLADDER MANAGEMENT - SCORE: 6-BRIT BOWEL MANAGEMENT: Activity did not occur on this shift BOWEL MANAGEMENT - SCORE: 7-IND TRANSFERS: BED, CHAIR, WHEELCHAIR: TRANSFERS: BED, CHAIR, WHEELCHAIR - STEP 1: Does the patient require assistance of a person or device, or need extra time with bed, chair, or whe elchair transfers? Yes. TRANSFERS: BED, CHAIR, WHEELCHAIR - STEP 2: Does the patient require the assistance of a helper? Yes. TRANSFERS: BED, CHAIR, WHEELCHAIR - STEP 3: How much assistance does the patient require from the helper? Steadying/guiding assistance TRANSFERS: BED, CHAIR, WHEELCHAIR - SCORE: 4-MIN TRANSFERS: TOILET: TRANSFERS: TOILET - STEP 1: Does the patient require the assistance of a person or device, or need extra time with toilet transfe rs? Yes. TRANSFERS: TOILET - STEP 2: Does the patient require the assistance of a helper? Yes. TRANSFERS: TOILET - STEP 3: How much assistance does the patient require from the helper? Patient performs half or more of the tr ansferring tasks TRANSFERS: TOILET - STEP 4: Does the patient need only incidental help such as contact guard or steadying during toilet transfer? No. Patient needs more than incidental help TRANSFERS: TOILET - SCORE: 3-MOD TRANSFERS: SHOWER: Activity did not occur on this shift TRANSFERS: SHOWER - SCORE: 0-UNK TRANSFERS: TUB: Activity did not occur on this shift TRANSFERS: TUB - SCORE: 0-UNK LOCOMOTION: WALK: Activity did not occur on this shift LOCOMOTION: WALK - SCORE: 0-UNK LOCOMOTION: WHEELCHAIR: Activity did not occur on this shift LOCOMOTION: WHEELCHAIR - SCORE: 0-UNK COMPREHENSION: COMPREHENSION: TYPE: Both COMPREHENSION - STEP 1: Does the patient require help from a person or device, or need extra time to understand complex and a bstract ideas (such as current events, finances, discharge planning, medical issues, relationships, e tc)? Yes. COMPREHENSION - STEP 2: Does the patient require help to understand questions or statements about basic needs or ideas (such as hunger, thirst, sleep, safety, daily schedule, room location, or discomfort) half or more of the t nichelle? No. COMPREHENSION - STEP 3: How often does the patient need help to understand directions and conversation about basic needs? 10% - 24% of the time COMPREHENSION - SCORE: 4-MIN EXPRESSION EXPRESSION: TYPE: Both EXPRESSION - STEP 1: Does the patient require help from a person or device, or need extra time expressing complex and abst ract ideas (such as current events, finances, discharge planning, medical issues, relationships, etc) ? Yes. EXPRESSION - STEP 2: Does the patient require help to express basic necessities or ideas (such as hunger, thirst, sleep, s afety, daily schedule, room location, or discomfort) half or more of the time? No. EXPRESSION - STEP 3: How often does the patient need help to express directions and conversation about basic needs? Less t arzate 10% of the time EXPRESSION - SCORE: 5-SUP SOCIAL INTERACTION: SOCIAL INTERACTION - STEP 1: Does the patient require a helper to interact with others in social and therapeutic situations? Yes. SOCIAL INTERACTION - STEP 2: Does the patient interact appropriately half or more of the time? Yes. SOCIAL INTERACTION - STEP 3: How often does the patient need help to interact appropriately? 10-24% of the time SOCIAL INTERACTION - SCORE: 4-MIN PROBLEM SOLVING: PROBLEM SOLVING - STEP 1: Does the patient need help from a person or device, or need extra time to solve complex problems such as managing a checking account or confronting interpersonal problems? Yes. PROBLEM SOLVING - STEP 2: Does the patient solve basic routine problems half or more of the time? Yes. PROBLEM SOLVING - STEP 3: How often does the patient need help to solve basic routine problems? 10%-24% of the time PROBLEM SOLVING - SCORE: 4-MIN MEMORY: MEMORY - STEP 1: Does the patient need help from a person or device, or need extra time to remember frequently encount ered people, daily routines, and executing requests? Yes. MEMORY - STEP 2: How often does the patient need help to remember frequently encountered people, daily routines, and e xecuting requests? 10% - 24% of the time MEMORY - SCORE: 4-MIN SIGNATURE PANEL: The following modified sections: Eating - Score, Grooming - Score, Bathing - Score, Dressing - Upper Body - Score, Dressing - Lower Body - Score, Toileting - Score, Bladder Management - Score, Bowel Man agement - Score, Transfers: Bed, Chair, Wheelchair - Score, Transfers: Toilet - Score, Transfers: Dayami wer - Score, Transfers: Tub - Score, Locomotion: Walk - Score, Locomotion: Wheelchair - Score, Compre hension - Score, Expression - Score, Social Interaction - Score, Social Interaction - Score, Problem Solving - Score, Memory - Score were [electronically] signed by Grant Munoz on SunApr 01 2019 13:47:3 8 GMT-0500 (Central Daylight Time)
--- NOTE | 2019-04-01 15:22 | FAST ---
ENCOUNTER DATE AND TIME: 04/01/2019 08:00 (CDT) NAME JENNIFER BELLA DATE OF : 1950 DATE OF ADMISSION: 03/31/2019 17:15 (CDT) PHONE: AGE: 68 N# [id number] GENDER: Male ENCOUNTER PHYSICIAN: Dr. Hardik Hector M.D. ADMISSION DIAGNOSIS: - Stroke 01 - Left Body (Right Brain) (01.1) Acute Right Cerebellar Infarct. EATING: Activity did not occur on this shift EATING - SCORE: 0-UNK GROOMING: Activity did not occur on this shift GROOMING - SCORE: 0-UNK BATHING: Activity did not occur on this shift BATHING - SCORE: 0-UNK DRESSING - UPPER BODY: Activity did not occur on this shift Patient is not dressing in public clothing ARTICLES SCORE Total number of steps: 0 DRESSING - UPPER BODY - SCORE: 0-UNK DRESSING - LOWER BODY: Activity did not occur on this shift Patient is not dressing in public clothing ARTICLES SCORE Total number of steps: 0 DRESSING - LOWER BODY - SCORE: 0-UNK TOILETING: Activity did not occur on this shift TOILETING - SCORE: 0-UNK BLADDER MANAGEMENT: Activity did not occur on this shift BLADDER MANAGEMENT - SCORE: 7-IND BOWEL MANAGEMENT: Activity did not occur on this shift BOWEL MANAGEMENT - SCORE: 7-IND TRANSFERS: BED, CHAIR, WHEELCHAIR: TRANSFERS: BED, CHAIR, WHEELCHAIR - STEP 1: Does the patient require assistance of a person or device, or need extra time with bed, chair, or whe elchair transfers? Yes. TRANSFERS: BED, CHAIR, WHEELCHAIR - STEP 2: Does the patient require the assistance of a helper? Yes. TRANSFERS: BED, CHAIR, WHEELCHAIR - STEP 3: How much assistance does the patient require from the helper? Steadying/guiding assistance TRANSFERS: BED, CHAIR, WHEELCHAIR - SCORE: 4-MIN TRANSFERS: TOILET: Activity did not occur on this shift TRANSFERS: TOILET - SCORE: 0-UNK TRANSFERS: SHOWER: Activity did not occur on this shift TRANSFERS: SHOWER - SCORE: 0-UNK TRANSFERS: TUB: Activity did not occur on this shift TRANSFERS: TUB - SCORE: 0-UNK LOCOMOTION: WALK: LOCOMOTION: WALK - STEP 1: Does the patient need help from a person or device, or need extra time to walk 150 feet? Yes. LOCOMOTION: WALK - STEP 2: How much assistance does the patient require to walk a minimum of 150 feet? Only incidental help such as contact guarding or steadying LOCOMOTION: WALK - SCORE: 4-MIN LOCOMOTION: WHEELCHAIR: Activity did not occur on this shift LOCOMOTION: WHEELCHAIR - SCORE: 0-UNK LOCOMOTION: STAIRS: LOCOMOTION: STAIRS - STEP 1: Does the patient need help to go up and down 12 to 14 stairs? Yes. LOCOMOTION: STAIRS - STEP 2: How much assistance does the patient need from the helper to go a minimum of 12 to 14 stairs? Only in cidental help such as contact guarding or steadying LOCOMOTION: STAIRS - SCORE: 4-MIN COMPREHENSION: COMPREHENSION - SCORE: 0-UNK EXPRESSION EXPRESSION - SCORE: 0-UNK SOCIAL INTERACTION: SOCIAL INTERACTION - SCORE: 0-UNK PROBLEM SOLVING: PROBLEM SOLVING - SCORE: 0-UNK MEMORY: MEMORY - SCORE: 0-UNK SIGNATURE PANEL: The following modified sections: Transfers: Bed, Chair, Wheelchair - Score, Transfers: Bed, Chair, Wh eelchair - Score, Transfers: Toilet - Score, Locomotion: Walk - Score, Locomotion: Wheelchair - Score , Locomotion: Stairs - Score, Locomotion: Stairs - Score were [electronically] signed by Yang hawthorne PT on SunApr 01 2019 15:21:17 T-0500 (Central Daylight Time)
--- NOTE | 2019-04-01 18:06 | P.CNS ---
Date of Consult: 04/01/19 Reason for Consult: onychomycosis Chief Complaint: Painful elongated toenails Allergies No Known Allergies Allergy (Verified 04/01/19 07:51) Home Medications: Allopurinol 100 mg PO DAILY 03/27/19 Amlodipine Besylate 10 mg PO DAILY 03/27/19 Lactulose 15 ml PO DAILY 03/27/19 Atorvastatin Calcium [Lipitor] 40 mg PO BEDTIME #30 tab 03/31/19 Clopidogrel Bisulfate [Plavix*] 75 mg PO DAILY #30 tablet 03/31/19 Enoxaparin Sodium [Lovenox 30 MG INJ*] 30 mg SQ DAILY #14 syr 03/31/19 Hydralazine [Apresoline*] 10 mg PO TID #90 tab 03/31/19 cloNIDine HCl [Catapres*] 0.2 mg PO BID #60 tab 03/31/19 - Past Medical/Surgical History Diabetic: No -: Hypertension -: Chronic renal disease, stage IV -: History left renal mass with nephrectomy -: gout -: Left nephrectomy Psychosocial/ Personal History: Patient is - Social History Smoking Status: Unknown if ever smoked Alcohol use: No CD- Drugs: No Caffeine use: No Place of Residence: Home Review of Systems 10-point ROS is otherwise unremarkable Physical Examination Temp Pulse Resp BP Pulse Ox 97.8 F 68 14 177/77 H 95 04/01/19 07:17 04/01/19 12:13 04/01/19 07:17 04/01/19 12:13 04/01/19 07:17 General: Alert, In no apparent distress Cardiovascular: No edema, Abnormal pulses (0/4 dorsalis pedis and posterior pulse bilateral) Capillary refill: >2 Seconds Musculoskeletal: No clubbing, No swelling, No contractures, No erythema, No tenderness, No warmth Integumentary: No rashes, No breakdown, No significant lesion, No tenderness/ swelling, No erythema, No warmth, No cyanosis, Other (absent hair growth bilateral feet. Nails noted to be thickened with subungual debris x 10) Neurological: Sensation intact Laboratory Data (last 24 hrs) 04/01/19 06:35: Sodium 142, Potassium 4.4, BUN 28 H, Creatinine 2.94 H, Glucose 79, Magnesium 2.0 04/01/19 06:35: WBC 3.8 L, Hgb 13.0 L, Hct 37.2 L, Plt Count 192 - Problems (1) Tinea unguium Current Visit: Yes Status: Acute Conclusions/Impression: Debridement of nails mechanically at bedside 1-5 bilateral Physician Review: Patient Assessed, Agree with Above Assessment and Plan Critical Care: No Time Spent Managing Pts care (In Minutes): 20
[2019-04-01] MEDS: ATORVASTATIN 40 MG TAB PO SCH (18:49)
[2019-04-02] MEDS: ENOXAPARIN 30 MG/0.3 ML SQ SCH (06:31)
[2019-04-02] MEDS: cloNIDine HCl 0.1 MG TAB PO SCH ×2 (07:22→19:23)
[2019-04-02] MEDS: HYDRALAZINE HCL 10 MG TABLET PO SCH ×3 (07:23→20:45)
[2019-04-02] MEDS: ALLOPURINOL 100 MG TAB PO SCH (07:23)
[2019-04-02] MEDS: CLOPIDOGREL 75 MG TABLET PO SCH (07:23)
[2019-04-02] MEDS: AMLODIPINE 10 MG TAB PO SCH (07:23)
[2019-04-02] MEDS: LACTULOSE 20 GM/30 ML UCUP PO SCH (14:04)
--- NOTE | 2019-04-02 17:09 | FAST ---
ENCOUNTER DATE AND TIME: 04/01/2019 08:00 (CDT) NAME JENNIFER BELLA DATE OF : 1950 DATE OF ADMISSION: 03/31/2019 17:15 (CDT) PHONE: AGE: 68 N# [id number] GENDER: Male ENCOUNTER PHYSICIAN: Dr. Hardik Hector M.D. ADMISSION DIAGNOSIS: - Stroke 01 - Left Body (Right Brain) (01.1) Acute Right Cerebellar Infarct. EATING: Activity did not occur on this shift EATING - SCORE: 0-UNK GROOMING: Comb/brush hair Oral care Wash, rinse, and dry face Wash, rinse, and dry hands GROOMING - STEP 1: Does the patient require the assistance of a person or device, or need extra time when grooming? Yes. GROOMING - STEP 2: Does the patient require the assistance of a helper? Yes. GROOMING - STEP 3: How much assistance does the patient require from the helper? Cuing, coaxing, instructions, or encour agement for completion of grooming GROOMING - SCORE: 5-SUP BATHING: Abdomen Buttocks Chest Left arm Left lower leg and foot Left upper leg Perineal area Right arm Right lower leg and foot Right upper leg BATHING - STEP 1: Does the patient require the assistance of a person or device, or need extra time when bathing? Yes. BATHING - STEP 2: Does the patient require the assistance of a helper? Yes. BATHING - STEP 3: How much assistance does the patient require from the helper? More than just incidental help BATHING - STEP 4: What percent of the body parts did the patient bathe WITHOUT the helper? Less than half of the body p arts BATHING - SCORE: 2-MAX DRESSING - UPPER BODY: T-shirt/pullover shirt (four steps) ARTICLES SCORE Total number of steps: 4 DRESSING - UPPER BODY - STEP 1: Does the patient require help from a person or device, or need extra time when dressing above the sorin st? Yes. DRESSING - UPPER BODY - STEP 2: Does the patient require the assistance of a helper? Yes. DRESSING - UPPER BODY - STEP 3: Does the helper touch the patient while dressing? Yes. DRESSING - UPPER BODY - STEP 4: How many of the total steps does the patient complete on his/her own? 3 DRESSING - UPPER BODY - SCORE: 4-MIN DRESSING - LOWER BODY: Elastic waist pants (three steps) Sock - Left foot (one step) Sock - Right foot (one step) Tied or buckled shoe - Left foot (two steps) Tied or buckled shoe - Right foot (two steps) Underwear (three steps) ARTICLES SCORE Total number of steps: 12 DRESSING - LOWER BODY - STEP 1: Does the patient require help from a person or device, or need extra time when dressing below the sorin st? Yes. DRESSING - LOWER BODY - STEP 2: Does the patient require the assistance of a helper? Yes. DRESSING - LOWER BODY - STEP 3: Does the helper touch the patient while dressing? Yes. DRESSING - LOWER BODY - STEP 4: How many of the total steps does the patient complete on his/her own? 6 DRESSING - LOWER BODY - SCORE: 3-MOD TOILETING: Activity did not occur on this shift TOILETING - SCORE: 0-UNK BLADDER MANAGEMENT: Activity did not occur on this shift BLADDER MANAGEMENT - SCORE: 7-IND BOWEL MANAGEMENT: Activity did not occur on this shift BOWEL MANAGEMENT - SCORE: 7-IND TRANSFERS: BED, CHAIR, WHEELCHAIR: Activity did not occur on this shift TRANSFERS: BED, CHAIR, WHEELCHAIR - SCORE: 0-UNK TRANSFERS: TOILET: Activity did not occur on this shift TRANSFERS: TOILET - SCORE: 0-UNK TRANSFERS: SHOWER: Activity did not occur on this shift TRANSFERS: SHOWER - SCORE: 0-UNK TRANSFERS: TUB: TRANSFERS: TUB - STEP 1: Does the patient require the assistance of a person or device, or need extra time with tub transfers? Yes. TRANSFERS: TUB - STEP 2: Does the patient require the assistance of a helper? Yes. TRANSFERS: TUB - STEP 3: How much assistance does the patient require from the helper? More than incidental help TRANSFERS: TUB - STEP 4: How much more help does the patient require from the helper? Lipscomb lifts the patient either up OR do wn TRANSFERS: TUB - SCORE: 3-MOD LOCOMOTION: WALK: Activity did not occur on this shift LOCOMOTION: WALK - SCORE: 0-UNK LOCOMOTION: WHEELCHAIR: Activity did not occur on this shift LOCOMOTION: WHEELCHAIR - SCORE: 0-UNK LOCOMOTION: STAIRS: Activity did not occur on this shift LOCOMOTION: STAIRS - SCORE: 0-UNK COMPREHENSION: COMPREHENSION: TYPE: Both COMPREHENSION - STEP 1: Does the patient require help from a person or device, or need extra time to understand complex and a bstract ideas (such as current events, finances, discharge planning, medical issues, relationships, e tc)? Yes. COMPREHENSION - STEP 2: Does the patient require help to understand questions or statements about basic needs or ideas (such as hunger, thirst, sleep, safety, daily schedule, room location, or discomfort) half or more of the t nichelle? No. COMPREHENSION - STEP 3: How often does the patient need help to understand directions and conversation about basic needs? 25% - 49% of the time COMPREHENSION - SCORE: 3-MOD EXPRESSION EXPRESSION: TYPE: Both EXPRESSION - STEP 1: Does the patient require help from a person or device, or need extra time expressing complex and abst ract ideas (such as current events, finances, discharge planning, medical issues, relationships, etc) ? Yes. EXPRESSION - STEP 2: Does the patient require help to express basic necessities or ideas (such as hunger, thirst, sleep, s afety, daily schedule, room location, or discomfort) half or more of the time? No. EXPRESSION - STEP 3: How often does the patient need help to express directions and conversation about basic needs? 25-49% of the time EXPRESSION - SCORE: 3-MOD SOCIAL INTERACTION: SOCIAL INTERACTION - STEP 1: Does the patient require a helper to interact with others in social and therapeutic situations? Yes. SOCIAL INTERACTION - STEP 2: Does the patient interact appropriately half or more of the time? Yes. SOCIAL INTERACTION - STEP 3: How often does the patient need help to interact appropriately? Less than 10% of the time SOCIAL INTERACTION - SCORE: 5-SUP PROBLEM SOLVING: PROBLEM SOLVING - STEP 1: Does the patient need help from a person or device, or need extra time to solve complex problems such as managing a checking account or confronting interpersonal problems? Yes. PROBLEM SOLVING - STEP 2: Does the patient solve basic routine problems half or more of the time? Yes. PROBLEM SOLVING - STEP 3: How often does the patient need help to solve basic routine problems? 25%-49% of the time PROBLEM SOLVING - SCORE: 3-MOD MEMORY: MEMORY - STEP 1: Does the patient need help from a person or device, or need extra time to remember frequently encount ered people, daily routines, and executing requests? Yes. MEMORY - STEP 2: How often does the patient need help to remember frequently encountered people, daily routines, and e xecuting requests? More than 50% of the time MEMORY - STEP 3: Does the patient need help to remember all of the time OR does s/he not effectively recognize and rem ember? No. Patient does not need help all the time MEMORY - SCORE: 2-MAX SIGNATURE PANEL: The following modified sections: Eating - Score, Grooming - Score, Grooming - Score, Bathing - Score, Dressing - Upper Body - Score, Dressing - Upper Body - Score, Dressing - Lower Body - Score, Toileti ng - Score, Transfers: Bed, Chair, Wheelchair - Score, Transfers: Toilet - Score, Transfers: Shower - Score, Transfers: Tub - Score, Comprehension - Score, Expression - Score, Comprehension - Score, Exp ression - Score, Social Interaction - Score, Problem Solving - Score, Memory - Score, Memory - Score were [electronically] signed by Maureen Foster OT on SunApr 02 2019 17:09:02 T-0500 (Central Day light Time)
--- NOTE | 2019-04-02 17:25 | R.PN ---
ENCOUNTER DATE AND TIME: 04/01/2019 17:19 (CDT) NAME JENNIFER LOW DATE OF : 1950 DATE OF ADMISSION: 03/31/2019 17:15 (CDT) Acute Right Cerebellar InfarctCHIEF COMPLAINT: Right cerebellar stroke SUBJECTIVE: Pt denied any Shortness of Breath. Pt denied any depression. He is making good progress with physical and occupational therpy. VITAL SIGNS Temperature: 97.6 F SBP/DBP: 150/82 Pulse: 65 Resp: 16 MEDICATION ALLERGIES: No Known Drug Allergies (NKDA) ENVIRONMENTAL ALLERGIES: None Known - Substance Allergies None Known - Other Allergies None Known NURSING: - Shower allowing shower - Bladder care per protocol - Skin care per protocol PRECAUTIONS: - Weight Bearing Precaution WBAT left LE ACTIVITIES OOB only with supervision THERAPIES: - Occupational Therapy Cognitive Retraining. Visual Perceptual Training. - Dietary and Nutrition Adequate Nutrition. Nutritional Education. Nutritional Supplements. - Speech Therapy Cognitive Training. Expressive Language Skills. Memory Strategies. Receptive Language Skills. Speech Intelligibility Training. PHYSICAL EXAM - Gen Alert and awake Lying in bed No apparent distress Oriented to: person, time, and place - Skin No breakdown No abnormalities - Eyes No abnormalities - ENMT No abnormalities - Neck No abnormalities - CVS RRR - Chest No abnormalities - Resp Clear to auscultation - Abd Soft - GI Soft Deferred - No abnormalities - Ext No significant edema - MSK 4+/5 weakness in left upper and lower extremity - Neuro 4/5 strength left upper and lower extremities. - Psych No abnormalities ASSESSMENT: Pt. is a 68 yo Right-handed black male.On 03/27/2019 Pt. presented to [facility] with sudden onset of left-side weakness.On 03/27/2019 he was admitted to [facility] with diagnosis Acute Right Cerebellar Infarct.His impairment category is Stroke 01 - Left Bod y (Right Brain) (01.1).Pre-morbidly, Pt. was independent/mod-I in Self-Care, Sphincter Control, Trans fers Control, Locomotion, Communication, and Social Cognition; and he had good Sphincter Control.Curr ently, he has deficits of Self-Care, Transfers Control, Locomotion, Endurance, Balance, and Safety Aw areness.Pt. is now referred to [facility] for acute in-patient rehabilitation in order to maximize patient's functional independence in activities of daily living, strength, ROM, and mobility.- Rehab Goal Patient has realistic goal of being discharged at assistance level 6-Yarely to reside at Home with Fam saloni/Relatives. MDM/PLAN: - Physical Therapy Gait dysfunction - to improve, our physical therapists will perform initial evaluation of pt's status upon admission and devise an individualized program for Gait Training, and Wheel Chair mobility Inability to transfer - to improve, our physical therapists will perform initial evaluation of pt's s tatus upon admission and devise an individualized program for Bed mobility Need for home safety evaluation - to improve, our physical therapists will perform initial evaluation of pt's status upon admission and devise an individualized program for Home Evaluation Need in caregiver upon discharge - to improve, our physical therapists will perform initial evaluatio n of pt's status upon admission and devise an individualized program for Caregiver Training New precaution - to improve, our physical therapists will perform initial evaluation of pt's status u monty admission and devise an individualized program for Patient precaution education Poor balance - to improve, our physical therapists will perform initial evaluation of pt's status upo n admission and devise an individualized program for Balance Training Poor endurance - to improve, our physical therapists will perform initial evaluation of pt's status u monty admission and devise an individualized program for Endurance Training Weakness - to improve, our physical therapists will perform initial evaluation of pt's status upon ad mission and devise an individualized program for Aquatic Therapy, Neuromuscular Reeducation, and Stre ngthening Edema - to improve, our physical therapists will perform initial evaluation of pt's status upon admis simran and devise an individualized program for Elevation Training, and Lymphedema Therapy - Occupational Therapy ADL deficits - to improve, our occupation therapists will perform initial evaluation of pt's status u monty admission and devise an individualized program for Bathing, Bed mobility, Community Reintegration , Cooking, Dressing, Eating, Fine Motor Skills, Grooming, Homemaking, Kitchen Mobility, Laundry, Sydney ent Education, Safety Awareness, Splinting - Positioning, Transfers(Toilet, Tub, Shower), and Wheel C hair Management Need for ocular care aide - to improve, our occupation therapists will perform initial evaluation of pt's s tatus upon admission and devise an individualized program for Caregiver Training Weakness - to improve, our occupation therapists will perform initial evaluation of pt's status upon admission and devise an individualized program for Aquatic Therapy, Balance, Endurance, UE ROM, and U E strengthening - Other See attached MAR (Medication Administration Record) Jennifer Low.pdf See attached MAR (Medication Administration Record) - Bladder care per protocol - Weight Bearing Precaution WBAT left LE - Skin care per protocol - Diet - Solid Texture Continue Regular - Shower allowing shower for Dementia, TBI, Stroke, or others FUNCTIONAL STATUS: UPDATED AT WEEKLY TEAM CONFERENCE - Bladder Same accident frequency: 7-Ind - No accidents in the past 7 days - Bowel Same accident frequency: 7-Ind - No accidents in the past 7 days - Walking Same score based on distance walked: 3(>=150ft) - Wheelchair Same score based on distance traveled: 0(N/A) FUNCTIONAL STATUS: - Self-Care A. Eating sup B. Grooming sup C. Bathing sup D. Dressing - Upper sup E. Dressing - Lower sup F. Toileting Ankita - Sphincter Control G: Bladder control Ind H: Bowel control Ind - Transfers Control I. Bed/Chair/Wheelchair CGA J. Toilet CGA K. Tub/Shower ADNO - Locomotion L. Walk/Wheelchair (C) CGA L. Walk/Wheelchair (W) CGA M. Stairs ADNO - Communication N. Comprehension (B) Yarely O. Expression (B) Yarely - Social Cognition P. Social Interaction Yarely Q. Problem Solving Yarely R. Memory Yarely - Endurance Fair - Balance Fair - Safety Awareness Fair CURRENT FUNC. DEFICITS: Self-Care, Transfers Control, Locomotion, Endurance, Balance, and Safety Awareness SIGNATURE PANEL: (CDT)
--- NOTE | 2019-04-02 17:27 | R.PN ---
ENCOUNTER DATE AND TIME: 04/02/2019 17:25 (CDT) NAME ARAVIND LOW DATE OF : 1950 DATE OF ADMISSION: 03/31/2019 17:15 (CDT) Acute Right Cerebellar InfarctCHIEF COMPLAINT: Right cerebellar stroke SUBJECTIVE: Pt denied any Shortness of Breath. Pt denied any depression. He is making good progress with physical and occupational therpy. Ambulated 250' with supervision using a rolling walker. VITAL SIGNS Temperature: 98.2 F SBP/DBP: 165/86 Pulse: 65 Resp: 16 MEDICATION ALLERGIES: No Known Drug Allergies (NKDA) ENVIRONMENTAL ALLERGIES: None Known - Substance Allergies None Known - Other Allergies None Known NURSING: - Shower allowing shower - Bladder care per protocol - Skin care per protocol PRECAUTIONS: - Weight Bearing Precaution WBAT left LE ACTIVITIES OOB only with supervision THERAPIES: - Occupational Therapy Cognitive Retraining. Visual Perceptual Training. - Dietary and Nutrition Adequate Nutrition. Nutritional Education. Nutritional Supplements. - Speech Therapy Cognitive Training. Expressive Language Skills. Memory Strategies. Receptive Language Skills. Speech Intelligibility Training. PHYSICAL EXAM - Gen Alert and awake Lying in bed No apparent distress Oriented to: person, time, and place - Skin No breakdown No abnormalities - Eyes No abnormalities - ENMT No abnormalities - Neck No abnormalities - CVS RRR - Chest No abnormalities - Resp Clear to auscultation - Abd Soft - GI Soft Deferred - No abnormalities - Ext No significant edema - MSK 4+/5 weakness in left upper and lower extremity - Neuro 4/5 strength left upper and lower extremities. - Psych No abnormalities ASSESSMENT: Pt. is a 68 yo Right-handed black male.On 03/27/2019 Pt. presented to [facility] with sudden onset of left-side weakness.On 03/27/2019 he was admitted to [facility] with diagnosis Acute Right Cerebellar Infarct.His impairment category is Stroke 01 - Left Bod y (Right Brain) (01.1).Pre-morbidly, Pt. was independent/mod-I in Self-Care, Sphincter Control, Trans fers Control, Locomotion, Communication, and Social Cognition; and he had good Sphincter Control.Curr ently, he has deficits of Self-Care, Transfers Control, Locomotion, Endurance, Balance, and Safety Aw areness.Pt. is now referred to [facility] for acute in-patient rehabilitation in order to maximize patient's functional independence in activities of daily living, strength, ROM, and mobility.- Rehab Goal Patient has realistic goal of being discharged at assistance level 6-Yarely to reside at Home with Fam saloni/Relatives. MDM/PLAN: - Physical Therapy Gait dysfunction - to improve, our physical therapists will perform initial evaluation of pt's statu s upon admission and devise an individualized program for Gait Training, and Wheel Chair mobility Inability to transfer - to improve, our physical therapists will perform initial evaluation of pt's status upon admission and devise an individualized program for Bed mobility Need for home safety evaluation - to improve, our physical therapists will perform initial evaluatio n of pt's status upon admission and devise an individualized program for Home Evaluation Need in caregiver upon discharge - to improve, our physical therapists will perform initial evaluati on of pt's status upon admission and devise an individualized program for Caregiver Training New precaution - to improve, our physical therapists will perform initial evaluation of pt's status upon admission and devise an individualized program for Patient precaution education Poor balance - to improve, our physical therapists will perform initial evaluation of pt's status up on admission and devise an individualized program for Balance Training Poor endurance - to improve, our physical therapists will perform initial evaluation of pt's status upon admission and devise an individualized program for Endurance Training Weakness - to improve, our physical therapists will perform initial evaluation of pt's status upon a dmission and devise an individualized program for Aquatic Therapy, Neuromuscular Reeducation, and Str engthening Edema - to improve, our physical therapists will perform initial evaluation of pt's status upon admi ssion and devise an individualized program for Elevation Training, and Lymphedema Therapy - Occupational Therapy ADL deficits - to improve, our occupation therapists will perform initial evaluation of pt's status upon admission and devise an individualized program for Bathing, Bed mobility, Community Reintegratio n, Cooking, Dressing, Eating, Fine Motor Skills, Grooming, Homemaking, Kitchen Mobility, Laundry, Pat ient Education, Safety Awareness, Splinting - Positioning, Transfers(Toilet, Tub, Shower), and Wheel Chair Management Need for primary care md - to improve, our occupation therapists will perform initial evaluation of pt's status upon admission and devise an individualized program for Caregiver Training Weakness - to improve, our occupation therapists will perform initial evaluation of pt's status upon admission and devise an individualized program for Aquatic Therapy, Balance, Endurance, UE ROM, and UE strengthening - Other See attached MAR (Medication Administration Record) Aravind Low.pdf See attached MAR (Medication Administration Record) - Bladder care per protocol - Weight Bearing Precaution WBAT left LE - Skin care per protocol - Diet - Solid Texture Continue Regular - Shower allowing shower for Dementia, TBI, Stroke, or others FUNCTIONAL STATUS: UPDATED AT WEEKLY TEAM CONFERENCE - Bladder Same accident frequency: 7-Ind - No accidents in the past 7 days - Bowel Same accident frequency: 7-Ind - No accidents in the past 7 days - Walking Same score based on distance walked: 3(>=150ft) - Wheelchair Same score based on distance traveled: 0(N/A) FUNCTIONAL STATUS: - Self-Care A. Eating sup B. Grooming sup C. Bathing sup D. Dressing - Upper sup E. Dressing - Lower sup F. Toileting Ankita - Sphincter Control G: Bladder control Ind H: Bowel control Ind - Transfers Control I. Bed/Chair/Wheelchair CGA J. Toilet CGA K. Tub/Shower ADNO - Locomotion L. Walk/Wheelchair (C) CGA L. Walk/Wheelchair (W) CGA M. Stairs ADNO - Communication N. Comprehension (B) Yarely O. Expression (B) Yarely - Social Cognition P. Social Interaction Yarely Q. Problem Solving Yarely R. Memory Yarely - Endurance Fair - Balance Fair - Safety Awareness Fair CURRENT FUNC. DEFICITS: Self-Care, Transfers Control, Locomotion, Endurance, Balance, and Safety Awareness SIGNATURE PANEL: (CDT)
[2019-04-02] MEDS: ATORVASTATIN 40 MG TAB PO SCH (20:46)
--- NOTE | 2019-04-03 01:25 | FAST ---
SHIFT START DATE/TIME: 04/02/2019 19:00 (CDT) SHIFT END DATE/TIME: 04/03/2019 07:00 (CDT) NAME JENNIFER BELLA DATE OF : 1950 DATE OF ADMISSION: 03/31/2019 17:15 (CDT) PHONE: AGE: 68 N# [id number] GENDER: Male ENCOUNTER PHYSICIAN: Dr. Hardik Hector M.D. ADMISSION DIAGNOSIS: - Stroke 01 - Left Body (Right Brain) (01.1) Acute Right Cerebellar Infarct. EATING: Activity did not occur on this shift EATING - SCORE: 0-UNK GROOMING: Activity did not occur on this shift GROOMING - SCORE: 0-UNK BATHING: Activity did not occur on this shift BATHING - SCORE: 0-UNK DRESSING - UPPER BODY: Patient is not dressing in public clothing ARTICLES SCORE Total number of steps: 0 DRESSING - UPPER BODY - SCORE: 0-UNK DRESSING - LOWER BODY: Patient is not dressing in public clothing ARTICLES SCORE Total number of steps: 0 DRESSING - LOWER BODY - SCORE: 0-UNK TOILETING: TOILETING - STEP 1: Does the patient require the assistance of a person or device, or need extra time with toileting? Yes . TOILETING - STEP 2: Does the patient require the assistance of a helper? Yes. TOILETING - STEP 3: How much assistance does the patient require from the helper? Only supervision TOILETING - SCORE: 5-SUP BLADDER MANAGEMENT: BLADDER MANAGEMENT - STEP 1: Does the patient control the bladder completely and intentionally without equipment or devices or med ications, and is always continent? No. BLADDER MANAGEMENT - STEP 2: Does the patient require the assistance of a helper? Yes. BLADDER MANAGEMENT - STEP 3: How much assistance does the patient require from the helper? Only supervision, stand-by, cuing, or c oaxing BLADDER MANAGEMENT - SCORE: 5-SUP BOWEL MANAGEMENT: BOWEL MANAGEMENT - STEP 1: Does the patient control bowels completely and intentionally without equipment devices or medications AND is always continent? No. BOWEL MANAGEMENT - STEP 2: Does the patient require the assistance of a helper? No, patient requires medication for control such as stool softeners, suppositories, laxatives, enemas, or OTC medications BOWEL MANAGEMENT - SCORE: 6-BRIT TRANSFERS: BED, CHAIR, WHEELCHAIR: TRANSFERS: BED, CHAIR, WHEELCHAIR - STEP 1: Does the patient require assistance of a person or device, or need extra time with bed, chair, or whe elchair transfers? Yes. TRANSFERS: BED, CHAIR, WHEELCHAIR - STEP 2: Does the patient require the assistance of a helper? Yes. TRANSFERS: BED, CHAIR, WHEELCHAIR - STEP 3: How much assistance does the patient require from the helper? Steadying/guiding assistance TRANSFERS: BED, CHAIR, WHEELCHAIR - SCORE: 4-MIN TRANSFERS: TOILET: TRANSFERS: TOILET - STEP 1: Does the patient require the assistance of a person or device, or need extra time with toilet transfe rs? Yes. TRANSFERS: TOILET - STEP 2: Does the patient require the assistance of a helper? No. Patient only requires an assistive device talbot ch as a grab bar or special seat, OR s/he takes more than reasonable time to perform toilet transfers , OR there is a safety concern when s/he performs toilet transfers. TRANSFERS: TOILET - SCORE: 6-BRIT TRANSFERS: SHOWER: Activity did not occur on this shift TRANSFERS: SHOWER - SCORE: 0-UNK TRANSFERS: TUB: Activity did not occur on this shift TRANSFERS: TUB - SCORE: 0-UNK LOCOMOTION: WALK: Activity did not occur on this shift LOCOMOTION: WALK - SCORE: 0-UNK LOCOMOTION: WHEELCHAIR: Activity did not occur on this shift LOCOMOTION: WHEELCHAIR - SCORE: 0-UNK COMPREHENSION: COMPREHENSION: TYPE: Both COMPREHENSION - STEP 1: Does the patient require help from a person or device, or need extra time to understand complex and a bstract ideas (such as current events, finances, discharge planning, medical issues, relationships, e tc)? Yes. COMPREHENSION - STEP 2: Does the patient require help to understand questions or statements about basic needs or ideas (such as hunger, thirst, sleep, safety, daily schedule, room location, or discomfort) half or more of the t nichelle? No. COMPREHENSION - STEP 3: How often does the patient need help to understand directions and conversation about basic needs? 10% - 24% of the time COMPREHENSION - SCORE: 4-MIN EXPRESSION EXPRESSION: TYPE: Both EXPRESSION - STEP 1: Does the patient require help from a person or device, or need extra time expressing complex and abst ract ideas (such as current events, finances, discharge planning, medical issues, relationships, etc) ? No. EXPRESSION - STEP 2: Does the patient need extra time, require an assistive device (such as augmentive communication syste m or a communication board), OR does s/he have mild difficulty expressing complex and abstract ideas (including mild dysarthria or mild word-find problems)? No. EXPRESSION - SCORE: 7-IND SOCIAL INTERACTION: SOCIAL INTERACTION - STEP 1: Does the patient require a helper to interact with others in social and therapeutic situations? No. SOCIAL INTERACTION - STEP 2: Does the patient need extra time in social situations, OR does s/he interact with staff, other patien ts, and family members ONLY in structured environments, OR does s/he require medication for social in teraction? Yes, patient needs extra time SOCIAL INTERACTION - SCORE: 6-BRIT PROBLEM SOLVING: PROBLEM SOLVING - STEP 1: Does the patient need help from a person or device, or need extra time to solve complex problems such as managing a checking account or confronting interpersonal problems? Yes. PROBLEM SOLVING - STEP 2: Does the patient solve basic routine problems half or more of the time? Yes. PROBLEM SOLVING - STEP 3: How often does the patient need help to solve basic routine problems? 10%-24% of the time PROBLEM SOLVING - SCORE: 4-MIN MEMORY: MEMORY - STEP 1: Does the patient need help from a person or device, or need extra time to remember frequently encount ered people, daily routines, and executing requests? No. MEMORY - STEP 2: Does the patient have slight difficulty recognizing frequently encountered people, daily routines, or executing requests without the need for repetition or using self-initiated or environmental cues to remember? Yes. MEMORY - SCORE: 6-BRIT SIGNATURE PANEL: The following modified sections: Eating - Score, Grooming - Score, Dressing - Upper Body - Score, Panda ssing - Lower Body - Score, Toileting - Score, Bladder Management - Score, Bowel Management - Score, Transfers: Bed, Chair, Wheelchair - Score, Transfers: Bed, Chair, Wheelchair - Score, Transfers: Toil et - Score, Transfers: Shower - Score, Transfers: Tub - Score, Locomotion: Walk - Score, Locomotion: Wheelchair - Score, Comprehension - Score, Expression - Score, Social Interaction - Score, Problem So lving - Score, Memory - Score were [electronically] signed by Jody Hernandez CNA on SunApr 03 2019 01:24:59 GMT-0500 (Central Daylight Time)
[2019-04-03] MEDS: ENOXAPARIN 30 MG/0.3 ML SQ SCH (07:03)
[2019-04-03] MEDS: LACTULOSE 20 GM/30 ML UCUP PO SCH (07:47)
[2019-04-03] MEDS: CLOPIDOGREL 75 MG TABLET PO SCH (07:48)
[2019-04-03] MEDS: ALLOPURINOL 100 MG TAB PO SCH (07:48)
[2019-04-03] MEDS: cloNIDine HCl 0.1 MG TAB PO SCH ×2 (07:49→19:35)
[2019-04-03] MEDS: AMLODIPINE 10 MG TAB PO SCH (07:49)
[2019-04-03] MEDS: HYDRALAZINE HCL 10 MG TABLET PO SCH ×3 (08:52→20:29)
[2019-04-03] MEDS ORDERED: DOCUSATE NA/SENNA CONC 1 TAB PO PRN (19:00)
[2019-04-03] MEDS ORDERED: MAGNESIUM HYDROXIDE 8% 30 ML PO PRN (19:00)
[2019-04-03] MEDS: PROMOD 30 ML DOSE PO SCH (19:36)
[2019-04-03] MEDS: ATORVASTATIN 40 MG TAB PO SCH (20:29)
--- NOTE | 2019-04-04 00:35 | FAST ---
SHIFT START DATE/TIME: 04/03/2019 19:00 (CDT) SHIFT END DATE/TIME: 04/04/2019 07:00 (CDT) NAME JENNIFER BELLA DATE OF : 1950 DATE OF ADMISSION: 03/31/2019 17:15 (CDT) PHONE: AGE: 68 N# [id number] GENDER: Male ENCOUNTER PHYSICIAN: Dr. Hardik Hector M.D. ADMISSION DIAGNOSIS: - Stroke 01 - Left Body (Right Brain) (01.1) Acute Right Cerebellar Infarct. EATING: Activity did not occur on this shift EATING - SCORE: 0-UNK GROOMING: Activity did not occur on this shift GROOMING - SCORE: 0-UNK BATHING: Activity did not occur on this shift BATHING - SCORE: 0-UNK DRESSING - UPPER BODY: Patient is not dressing in public clothing ARTICLES SCORE Total number of steps: 0 DRESSING - UPPER BODY - SCORE: 0-UNK DRESSING - LOWER BODY: Patient is not dressing in public clothing ARTICLES SCORE Total number of steps: 0 DRESSING - LOWER BODY - SCORE: 0-UNK TOILETING: TOILETING - STEP 1: Does the patient require the assistance of a person or device, or need extra time with toileting? Yes . TOILETING - STEP 2: Does the patient require the assistance of a helper? Yes. TOILETING - STEP 3: How much assistance does the patient require from the helper? Only supervision TOILETING - SCORE: 5-SUP BLADDER MANAGEMENT: BLADDER MANAGEMENT - STEP 1: Does the patient control the bladder completely and intentionally without equipment or devices or med ications, and is always continent? Yes. BLADDER MANAGEMENT - SCORE: 7-IND BOWEL MANAGEMENT: BOWEL MANAGEMENT - STEP 1: Does the patient control bowels completely and intentionally without equipment devices or medications AND is always continent? No. BOWEL MANAGEMENT - STEP 2: Does the patient require the assistance of a helper? No, patient requires medication for control such as stool softeners, suppositories, laxatives, enemas, or OTC medications BOWEL MANAGEMENT - SCORE: 6-BRIT TRANSFERS: BED, CHAIR, WHEELCHAIR: TRANSFERS: BED, CHAIR, WHEELCHAIR - STEP 1: Does the patient require assistance of a person or device, or need extra time with bed, chair, or whe elchair transfers? Yes. TRANSFERS: BED, CHAIR, WHEELCHAIR - STEP 2: Does the patient require the assistance of a helper? Yes. TRANSFERS: BED, CHAIR, WHEELCHAIR - STEP 3: How much assistance does the patient require from the helper? Steadying/guiding assistance TRANSFERS: BED, CHAIR, WHEELCHAIR - SCORE: 4-MIN TRANSFERS: TOILET: TRANSFERS: TOILET - STEP 1: Does the patient require the assistance of a person or device, or need extra time with toilet transfe rs? Yes. TRANSFERS: TOILET - STEP 2: Does the patient require the assistance of a helper? No. Patient only requires an assistive device talbot ch as a grab bar or special seat, OR s/he takes more than reasonable time to perform toilet transfers , OR there is a safety concern when s/he performs toilet transfers. TRANSFERS: TOILET - SCORE: 6-BRIT TRANSFERS: SHOWER: Activity did not occur on this shift TRANSFERS: SHOWER - SCORE: 0-UNK TRANSFERS: TUB: Activity did not occur on this shift TRANSFERS: TUB - SCORE: 0-UNK LOCOMOTION: WALK: Activity did not occur on this shift LOCOMOTION: WALK - SCORE: 0-UNK LOCOMOTION: WHEELCHAIR: Activity did not occur on this shift LOCOMOTION: WHEELCHAIR - SCORE: 0-UNK COMPREHENSION: COMPREHENSION: TYPE: Both COMPREHENSION - STEP 1: Does the patient require help from a person or device, or need extra time to understand complex and a bstract ideas (such as current events, finances, discharge planning, medical issues, relationships, e tc)? Yes. COMPREHENSION - STEP 2: Does the patient require help to understand questions or statements about basic needs or ideas (such as hunger, thirst, sleep, safety, daily schedule, room location, or discomfort) half or more of the t nichelle? No. COMPREHENSION - STEP 3: How often does the patient need help to understand directions and conversation about basic needs? 10% - 24% of the time COMPREHENSION - SCORE: 4-MIN EXPRESSION EXPRESSION: TYPE: Both EXPRESSION - STEP 1: Does the patient require help from a person or device, or need extra time expressing complex and abst ract ideas (such as current events, finances, discharge planning, medical issues, relationships, etc) ? No. EXPRESSION - STEP 2: Does the patient need extra time, require an assistive device (such as augmentive communication syste m or a communication board), OR does s/he have mild difficulty expressing complex and abstract ideas (including mild dysarthria or mild word-find problems)? No. EXPRESSION - SCORE: 7-IND SOCIAL INTERACTION: SOCIAL INTERACTION - STEP 1: Does the patient require a helper to interact with others in social and therapeutic situations? No. SOCIAL INTERACTION - STEP 2: Does the patient need extra time in social situations, OR does s/he interact with staff, other patien ts, and family members ONLY in structured environments, OR does s/he require medication for social in teraction? Yes, patient needs extra time SOCIAL INTERACTION - SCORE: 6-BRIT PROBLEM SOLVING: PROBLEM SOLVING - STEP 1: Does the patient need help from a person or device, or need extra time to solve complex problems such as managing a checking account or confronting interpersonal problems? Yes. PROBLEM SOLVING - STEP 2: Does the patient solve basic routine problems half or more of the time? Yes. PROBLEM SOLVING - STEP 3: How often does the patient need help to solve basic routine problems? 10%-24% of the time PROBLEM SOLVING - SCORE: 4-MIN MEMORY: MEMORY - STEP 1: Does the patient need help from a person or device, or need extra time to remember frequently encount ered people, daily routines, and executing requests? No. MEMORY - STEP 2: Does the patient have slight difficulty recognizing frequently encountered people, daily routines, or executing requests without the need for repetition or using self-initiated or environmental cues to remember? Yes. MEMORY - SCORE: 6-BRIT SIGNATURE PANEL: The following modified sections: Eating - Score, Grooming - Score, Dressing - Upper Body - Score, Panda ssing - Lower Body - Score, Toileting - Score, Bladder Management - Score, Bowel Management - Score, Transfers: Bed, Chair, Wheelchair - Score, Transfers: Toilet - Score, Transfers: Shower - Score, [place] sfers: Tub - Score, Locomotion: Walk - Score, Locomotion: Wheelchair - Score, Comprehension - Score, Expression - Score, Social Interaction - Score, Problem Solving - Score, Memory - Score were [electro nically] signed by Jody Hernandez CNA on SunApr 04 2019 00:33:59 GMT-0500 (Central Daylight Time)
[2019-04-04] MEDS: ENOXAPARIN 30 MG/0.3 ML SQ SCH (06:44)
[2019-04-04] MEDS: cloNIDine HCl 0.1 MG TAB PO SCH ×2 (07:05→21:04)
[2019-04-04] MEDS: AMLODIPINE 10 MG TAB PO SCH (07:05)
[2019-04-04] MEDS: HYDRALAZINE HCL 10 MG TABLET PO SCH ×3 (07:05→21:05)
[2019-04-04] MEDS: CLOPIDOGREL 75 MG TABLET PO SCH (07:05)
[2019-04-04] MEDS: ALLOPURINOL 100 MG TAB PO SCH (07:05)
[2019-04-04 07:06] LABS: Absolute Lymphocytes (CBC) 1.1 K/uL (0.7-4.9); Basophils % 1.6 % (0-1.3); Hematocrit 35.4 % (39.6-49.0); Lymphocytes % 32.9 % (15.3-44.8); MPV 8.5 fL (7.6-11.3); RBC Red Blood Cell Count 3.91 M/uL (4.33-5.43)
[2019-04-04] MEDS: PROMOD 30 ML DOSE PO SCH ×2 (07:06→21:05)
[2019-04-04 07:23] LABS: Albumin 3.2 g/dL (3.4-5.0); Magnesium 2.1 mg/dL (1.8-2.4); Potassium 4.2 mmol/L (3.5-5.1); Prealbumin 19.1 mg/dL (20-40)
--- NOTE | 2019-04-04 09:38 | P.RH.PN ---
Estimated Length of Stay: 12 Expected Discharge Date: 04/11/19 Discharge Disposition Plan: Home Family Support: Yes Mcfp Goal: Mobility, Transfers, Self Care Vital Signs: Last Vital Signs Temp 98.3 F 04/04/19 07:00 Pulse 60 04/04/19 07:05 Resp 14 04/04/19 07:00 BP 150/78 H 04/04/19 07:05 Pulse Ox 100 04/04/19 07:00 Laboratory: Laboratory Last Values WBC 3.3 K/uL (4.3-10.9) L 04/04/19 05:32 RBC 3.91 M/uL (4.33-5.43) L 04/04/19 05:32 Hgb 12.2 g/dL (13.6-17.9) L 04/04/19 05:32 Hct 35.4 % (39.6-49.0) L 04/04/19 05:32 MCV 90.6 fL (80-100) 04/04/19 05:32 MCH 31.1 pg (27.0-35.0) 04/04/19 05:32 MCHC 34.4 g/dL (32.0-36.0) 04/04/19 05:32 RDW 14.6 % (12.1-15.2) 04/04/19 05:32 Plt Count 187 K/uL (152-406) 04/04/19 05:32 MPV 8.5 fL (7.6-11.3) 04/04/19 05:32 Neutrophils % 50.7 % (41.7-73.7) 04/04/19 05:32 Lymphocytes % 32.9 % (15.3-44.8) 04/04/19 05:32 Monocytes % 12.5 % (3.3-12.3) H 04/04/19 05:32 Eosinophils % 2.3 % (0-4.4) 04/04/19 05:32 Basophils % 1.6 % (0-1.3) H 04/04/19 05:32 Absolute Neutrophils 1.7 K/uL (1.8-8.0) L 04/04/19 05:32 Absolute Lymphocytes 1.1 K/uL (0.7-4.9) 04/04/19 05:32 Absolute Monocytes 0.4 K/uL (0.1-1.3) 04/04/19 05:32 Absolute Eosinophils 0.1 K/uL (0-0.5) 04/04/19 05:32 Absolute Basophils 0.1 K/uL (0-0.5) 04/04/19 05:32 Sodium 144 mmol/L (136-145) 04/04/19 05:32 Potassium 4.2 mmol/L (3.5-5.1) 04/04/19 05:32 Chloride 113 mmol/L (98-107) H 04/04/19 05:32 Carbon Dioxide 25 mmol/L (21-32) 04/04/19 05:32 BUN 30 mg/dL (7-18) H 04/04/19 05:32 Creatinine 2.88 mg/dL (0.55-1.3) H 04/04/19 05:32 Estimated GFR 27 mL/min (=/>90) L 04/04/19 05:32 Glucose 88 mg/dL (74-106) 04/04/19 05:32 Calcium 9.1 mg/dL (8.5-10.1) 04/04/19 05:32 Magnesium 2.1 mg/dL (1.8-2.4) 04/04/19 05:32 Albumin 3.2 g/dL (3.4-5.0) L 04/04/19 05:32 Prealbumin 19.1 mg/dL (20-40) L 04/04/19 05:32 Urine Color Yellow 03/31/19 17:30 Urine Appearance Clear 03/31/19 17:30 Urine pH 5.5 (5.0-7.0) 03/31/19 17:30 Ur Specific [place] 1.010 (1.005-1.030) 03/31/19 17:30 Urine Ketones Negative (NEG) 03/31/19 17:30 Urine Blood Negative (NEG) 03/31/19 17:30 Urine Nitrite Negative (NEG) 03/31/19 17:30 Urine Bilirubin Negative (NEG) 03/31/19 17:30 Urine Urobilinogen 0.2 mg/dL (0.2-1.0) 03/31/19 17:30 Ur Leukocyte Esterase Negative (NEG) 03/31/19 17:30 Urine RBC <5 /HPF (NONE SEEN) 03/31/19 17:30 Urine WBC <5 /HPF (<5) 03/31/19 17:30 Ur Squamous Epith Cells <5 /HPF (NONE SEEN) 03/31/19 17:30 Urine Bacteria None seen /HPF (NONE SEEN) 03/31/19 17:30 Urine Culture Reflexed Not needed 03/31/19 17:30 Urine Glucose Negative (NEG) 03/31/19 17:30 Urine Total Protein Negative (NEG) 03/31/19 17:30 Weight: 119 lb Wound Present: No Closed Surgical Incision Present: No Negative Pressure Wound Therapy Present: No Physician Update: Labs reviewed. 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 He has mild to moderate cognitive functioning. He has difficult following instructions. His balance is better. Walking 500' with contact guard assistance due to poor cogition. He will go home with his . Medical Issues: DVT prophylaxis - Enoxaparin 30mg SQ Daily Summary: Patient's care plan and terminal operator goals have been reviewed and revised as necessary. Please see the Rehabilitation Signature page for all necessary signatures.
--- NOTE | 2019-04-04 13:01 | FAST ---
SHIFT START DATE/TIME: 04/04/2019 07:00 (CDT) SHIFT END DATE/TIME: 04/04/2019 19:00 (CDT) NAME JENNIFER BELLA DATE OF : 1950 DATE OF ADMISSION: 03/31/2019 17:15 (CDT) PHONE: AGE: 68 N# [id number] GENDER: Male ENCOUNTER PHYSICIAN: Dr. Hardik Hector M.D. ADMISSION DIAGNOSIS: - Stroke 01 - Left Body (Right Brain) (01.1) Acute Right Cerebellar Infarct. EATING: EATING - STEP 1: Does the patient require the assistance of a person or device, or need extra time when eating? Yes. EATING - STEP 2: Does the patient require the assistance of a helper? No, patient only requires an assistive device, O R s/he takes more than reasonable time to eat, OR there is a safety concern, OR s/he requires modifie d food consistency EATING - SCORE: 6-BRIT GROOMING: Activity did not occur on this shift GROOMING - SCORE: 0-UNK BATHING: Activity did not occur on this shift BATHING - SCORE: 0-UNK DRESSING - UPPER BODY: Activity did not occur on this shift ARTICLES SCORE Total number of steps: 0 DRESSING - UPPER BODY - SCORE: 0-UNK DRESSING - LOWER BODY: Activity did not occur on this shift ARTICLES SCORE Total number of steps: 0 DRESSING - LOWER BODY - SCORE: 0-UNK TOILETING: TOILETING - STEP 1: Does the patient require the assistance of a person or device, or need extra time with toileting? Yes . TOILETING - STEP 2: Does the patient require the assistance of a helper? Yes. TOILETING - STEP 3: How much assistance does the patient require from the helper? Only supervision TOILETING - SCORE: 5-SUP BLADDER MANAGEMENT: BLADDER MANAGEMENT - STEP 1: Does the patient control the bladder completely and intentionally without equipment or devices or med ications, and is always continent? No. BLADDER MANAGEMENT - STEP 2: Does the patient require the assistance of a helper? No, patient requires and independently uses an a ssistive device, such as a urinal, bedpan, bedside commode, catheter, absorbent pad, or collecting de vice BLADDER MANAGEMENT - SCORE: 6-BRIT BOWEL MANAGEMENT: Activity did not occur on this shift BOWEL MANAGEMENT - SCORE: 7-IND TRANSFERS: BED, CHAIR, WHEELCHAIR: TRANSFERS: BED, CHAIR, WHEELCHAIR - STEP 1: Does the patient require assistance of a person or device, or need extra time with bed, chair, or whe elchair transfers? Yes. TRANSFERS: BED, CHAIR, WHEELCHAIR - STEP 2: Does the patient require the assistance of a helper? Yes. TRANSFERS: BED, CHAIR, WHEELCHAIR - STEP 3: How much assistance does the patient require from the helper? Steadying/guiding assistance TRANSFERS: BED, CHAIR, WHEELCHAIR - SCORE: 4-MIN TRANSFERS: TOILET: TRANSFERS: TOILET - STEP 1: Does the patient require the assistance of a person or device, or need extra time with toilet transfe rs? Yes. TRANSFERS: TOILET - STEP 2: Does the patient require the assistance of a helper? Yes. TRANSFERS: TOILET - STEP 3: How much assistance does the patient require from the helper? Only supervision, cuing, coaxing, OR he lp to set out transfer equipment or to lock brakes and/or lift foot rests TRANSFERS: TOILET - SCORE: 5-SUP TRANSFERS: SHOWER: Activity did not occur on this shift TRANSFERS: SHOWER - SCORE: 0-UNK TRANSFERS: TUB: Activity did not occur on this shift TRANSFERS: TUB - SCORE: 0-UNK LOCOMOTION: WALK: Activity did not occur on this shift LOCOMOTION: WALK - SCORE: 0-UNK LOCOMOTION: WHEELCHAIR: Activity did not occur on this shift LOCOMOTION: WHEELCHAIR - SCORE: 0-UNK COMPREHENSION: COMPREHENSION: TYPE: Both COMPREHENSION - STEP 1: Does the patient require help from a person or device, or need extra time to understand complex and a bstract ideas (such as current events, finances, discharge planning, medical issues, relationships, e tc)? Yes. COMPREHENSION - STEP 2: Does the patient require help to understand questions or statements about basic needs or ideas (such as hunger, thirst, sleep, safety, daily schedule, room location, or discomfort) half or more of the t nichelle? No. COMPREHENSION - STEP 3: How often does the patient need help to understand directions and conversation about basic needs? 10% - 24% of the time COMPREHENSION - SCORE: 4-MIN EXPRESSION EXPRESSION: TYPE: Both EXPRESSION - STEP 1: Does the patient require help from a person or device, or need extra time expressing complex and abst ract ideas (such as current events, finances, discharge planning, medical issues, relationships, etc) ? Yes. EXPRESSION - STEP 2: Does the patient require help to express basic necessities or ideas (such as hunger, thirst, sleep, s afety, daily schedule, room location, or discomfort) half or more of the time? No. EXPRESSION - STEP 3: How often does the patient need help to express directions and conversation about basic needs? 25-49% of the time EXPRESSION - SCORE: 3-MOD SOCIAL INTERACTION: SOCIAL INTERACTION - STEP 1: Does the patient require a helper to interact with others in social and therapeutic situations? Yes. SOCIAL INTERACTION - STEP 2: Does the patient interact appropriately half or more of the time? Yes. SOCIAL INTERACTION - STEP 3: How often does the patient need help to interact appropriately? 10-24% of the time SOCIAL INTERACTION - SCORE: 4-MIN PROBLEM SOLVING: PROBLEM SOLVING - STEP 1: Does the patient need help from a person or device, or need extra time to solve complex problems such as managing a checking account or confronting interpersonal problems? Yes. PROBLEM SOLVING - STEP 2: Does the patient solve basic routine problems half or more of the time? Yes. PROBLEM SOLVING - STEP 3: How often does the patient need help to solve basic routine problems? 10%-24% of the time PROBLEM SOLVING - SCORE: 4-MIN MEMORY: MEMORY - STEP 1: Does the patient need help from a person or device, or need extra time to remember frequently encount ered people, daily routines, and executing requests? Yes. MEMORY - STEP 2: How often does the patient need help to remember frequently encountered people, daily routines, and e xecuting requests? 25% - 49% of the time MEMORY - SCORE: 3-MOD SIGNATURE PANEL: The following modified sections: Eating - Score, Eating - Score, Grooming - Score, Bathing - Score, D ressing - Upper Body - Score, Dressing - Lower Body - Score, Toileting - Score, Bladder Management - Score, Bowel Management - Score, Transfers: Bed, Chair, Wheelchair - Score, Transfers: Toilet - Score , Transfers: Shower - Score, Transfers: Tub - Score, Locomotion: Walk - Score, Locomotion: Wheelchair - Score, Comprehension - Score, Expression - Score, Expression - Score, Social Interaction - Score, Problem Solving - Score, Memory - Score were [electronically] signed by Grant Munoz on SunApr 04 2019 12:59:51 GMT-0500 (Central Daylight Time)
[2019-04-04] MEDS: LACTULOSE 20 GM/30 ML UCUP PO SCH (14:08)
--- NOTE | 2019-04-04 15:20 | FAST ---
ENCOUNTER DATE AND TIME: 04/04/2019 08:00 (CDT) NAME JENNIFER BELLA DATE OF : 1950 DATE OF ADMISSION: 03/31/2019 17:15 (CDT) PHONE: AGE: 68 N# [id number] GENDER: Male ENCOUNTER PHYSICIAN: Dr. Hardik Hector M.D. ADMISSION DIAGNOSIS: - Stroke 01 - Left Body (Right Brain) (01.1) Acute Right Cerebellar Infarct. EATING: Activity did not occur on this shift EATING - SCORE: 0-UNK GROOMING: Activity did not occur on this shift GROOMING - SCORE: 0-UNK BATHING: Activity did not occur on this shift BATHING - SCORE: 0-UNK DRESSING - UPPER BODY: Activity did not occur on this shift Patient is not dressing in public clothing ARTICLES SCORE Total number of steps: 0 DRESSING - UPPER BODY - SCORE: 0-UNK DRESSING - LOWER BODY: Activity did not occur on this shift Patient is not dressing in public clothing ARTICLES SCORE Total number of steps: 0 DRESSING - LOWER BODY - SCORE: 0-UNK TOILETING: Activity did not occur on this shift TOILETING - SCORE: 0-UNK BLADDER MANAGEMENT: Activity did not occur on this shift BLADDER MANAGEMENT - SCORE: 7-IND BOWEL MANAGEMENT: Activity did not occur on this shift BOWEL MANAGEMENT - SCORE: 7-IND TRANSFERS: BED, CHAIR, WHEELCHAIR: TRANSFERS: BED, CHAIR, WHEELCHAIR - STEP 1: Does the patient require assistance of a person or device, or need extra time with bed, chair, or whe elchair transfers? Yes. TRANSFERS: BED, CHAIR, WHEELCHAIR - STEP 2: Does the patient require the assistance of a helper? Yes. TRANSFERS: BED, CHAIR, WHEELCHAIR - STEP 3: How much assistance does the patient require from the helper? Only supervision TRANSFERS: BED, CHAIR, WHEELCHAIR - SCORE: 5-SUP TRANSFERS: TOILET: Activity did not occur on this shift TRANSFERS: TOILET - SCORE: 0-UNK TRANSFERS: SHOWER: Activity did not occur on this shift TRANSFERS: SHOWER - SCORE: 0-UNK TRANSFERS: TUB: Activity did not occur on this shift TRANSFERS: TUB - SCORE: 0-UNK LOCOMOTION: WALK: LOCOMOTION: WALK - STEP 1: Does the patient need help from a person or device, or need extra time to walk 150 feet? Yes. LOCOMOTION: WALK - STEP 2: How much assistance does the patient require to walk a minimum of 150 feet? Only incidental help such as contact guarding or steadying LOCOMOTION: WALK - SCORE: 4-MIN LOCOMOTION: WHEELCHAIR: LOCOMOTION: WHEELCHAIR - STEP 1: Does the patient need help to go 150 feet in a wheelchair? Yes. LOCOMOTION: WHEELCHAIR - STEP 2: How much assistance does the patient need from the helper? Only supervision, cuing, or coaxing LOCOMOTION: WHEELCHAIR - SCORE: 5-SUP LOCOMOTION: STAIRS: LOCOMOTION: STAIRS - STEP 1: Does the patient need help to go up and down 12 to 14 stairs? Yes. LOCOMOTION: STAIRS - STEP 2: How much assistance does the patient need from the helper to go a minimum of 12 to 14 stairs? Only talbot pervision, cuing, or coaxing LOCOMOTION: STAIRS - SCORE: 5-SUP COMPREHENSION: COMPREHENSION - SCORE: 0-UNK EXPRESSION EXPRESSION - SCORE: 0-UNK SOCIAL INTERACTION: SOCIAL INTERACTION - SCORE: 0-UNK PROBLEM SOLVING: PROBLEM SOLVING - SCORE: 0-UNK MEMORY: MEMORY - SCORE: 0-UNK SIGNATURE PANEL: The following modified sections: Transfers: Bed, Chair, Wheelchair - Score, Transfers: Toilet - Score , Locomotion: Walk - Score, Locomotion: Wheelchair - Score, Locomotion: Stairs - Score were [julian stuart] signed by Demarcus Barger PTA on SunApr 04 2019 15:19:20 GMT-0500 (Central Daylight Time)
[2019-04-04] MEDS: ATORVASTATIN 40 MG TAB PO SCH (21:04)
--- NOTE | 2019-04-05 02:37 | FAST ---
SHIFT START DATE/TIME: 04/04/2019 19:00 (CDT) SHIFT END DATE/TIME: 04/05/2019 07:00 (CDT) NAME JENNIFER BELLA DATE OF : 1950 DATE OF ADMISSION: 03/31/2019 17:15 (CDT) PHONE: AGE: 68 N# [id number] GENDER: Male ENCOUNTER PHYSICIAN: Dr. Hardik Hector M.D. ADMISSION DIAGNOSIS: - Stroke 01 - Left Body (Right Brain) (01.1) Acute Right Cerebellar Infarct. EATING: Activity did not occur on this shift EATING - SCORE: 0-UNK GROOMING: Activity did not occur on this shift GROOMING - SCORE: 0-UNK BATHING: Activity did not occur on this shift BATHING - SCORE: 0-UNK DRESSING - UPPER BODY: Patient is not dressing in public clothing ARTICLES SCORE Total number of steps: 0 DRESSING - UPPER BODY - SCORE: 0-UNK DRESSING - LOWER BODY: Patient is not dressing in public clothing ARTICLES SCORE Total number of steps: 0 DRESSING - LOWER BODY - SCORE: 0-UNK TOILETING: TOILETING - STEP 1: Does the patient require the assistance of a person or device, or need extra time with toileting? Yes . TOILETING - STEP 2: Does the patient require the assistance of a helper? Yes. TOILETING - STEP 3: How much assistance does the patient require from the helper? Only supervision TOILETING - SCORE: 5-SUP BLADDER MANAGEMENT: BLADDER MANAGEMENT - STEP 1: Does the patient control the bladder completely and intentionally without equipment or devices or med ications, and is always continent? No. BLADDER MANAGEMENT - STEP 2: Does the patient require the assistance of a helper? Yes. BLADDER MANAGEMENT - STEP 3: How much assistance does the patient require from the helper? Only set-up of equipment - such as plac ing it within reach of the patient or emptying a device - to maintain either satisfactory voiding pat tern or managing an external device, such as an absorbent pad, ileal device, or catheter BLADDER MANAGEMENT - SCORE: 5-SUP BOWEL MANAGEMENT: Activity did not occur on this shift BOWEL MANAGEMENT - SCORE: 7-IND TRANSFERS: BED, CHAIR, WHEELCHAIR: TRANSFERS: BED, CHAIR, WHEELCHAIR - STEP 1: Does the patient require assistance of a person or device, or need extra time with bed, chair, or whe elchair transfers? Yes. TRANSFERS: BED, CHAIR, WHEELCHAIR - STEP 2: Does the patient require the assistance of a helper? Yes. TRANSFERS: BED, CHAIR, WHEELCHAIR - STEP 3: How much assistance does the patient require from the helper? Steadying/guiding assistance TRANSFERS: BED, CHAIR, WHEELCHAIR - SCORE: 4-MIN TRANSFERS: TOILET: TRANSFERS: TOILET - STEP 1: Does the patient require the assistance of a person or device, or need extra time with toilet transfe rs? Yes. TRANSFERS: TOILET - STEP 2: Does the patient require the assistance of a helper? Yes. TRANSFERS: TOILET - STEP 3: How much assistance does the patient require from the helper? Only supervision, cuing, coaxing, OR he lp to set out transfer equipment or to lock brakes and/or lift foot rests TRANSFERS: TOILET - SCORE: 5-SUP TRANSFERS: SHOWER: Activity did not occur on this shift TRANSFERS: SHOWER - SCORE: 0-UNK TRANSFERS: TUB: Activity did not occur on this shift TRANSFERS: TUB - SCORE: 0-UNK LOCOMOTION: WALK: Activity did not occur on this shift LOCOMOTION: WALK - SCORE: 0-UNK LOCOMOTION: WHEELCHAIR: Activity did not occur on this shift LOCOMOTION: WHEELCHAIR - SCORE: 0-UNK COMPREHENSION: COMPREHENSION: TYPE: Both COMPREHENSION - STEP 1: Does the patient require help from a person or device, or need extra time to understand complex and a bstract ideas (such as current events, finances, discharge planning, medical issues, relationships, e tc)? Yes. COMPREHENSION - STEP 2: Does the patient require help to understand questions or statements about basic needs or ideas (such as hunger, thirst, sleep, safety, daily schedule, room location, or discomfort) half or more of the t nichelle? No. COMPREHENSION - STEP 3: How often does the patient need help to understand directions and conversation about basic needs? 10% - 24% of the time COMPREHENSION - SCORE: 4-MIN EXPRESSION EXPRESSION: TYPE: Both EXPRESSION - STEP 1: Does the patient require help from a person or device, or need extra time expressing complex and abst ract ideas (such as current events, finances, discharge planning, medical issues, relationships, etc) ? No. EXPRESSION - STEP 2: Does the patient need extra time, require an assistive device (such as augmentive communication syste m or a communication board), OR does s/he have mild difficulty expressing complex and abstract ideas (including mild dysarthria or mild word-find problems)? Yes. EXPRESSION - SCORE: 6-BRIT SOCIAL INTERACTION: SOCIAL INTERACTION - STEP 1: Does the patient require a helper to interact with others in social and therapeutic situations? No. SOCIAL INTERACTION - STEP 2: Does the patient need extra time in social situations, OR does s/he interact with staff, other patien ts, and family members ONLY in structured environments, OR does s/he require medication for social in teraction? Yes, patient needs extra time SOCIAL INTERACTION - SCORE: 6-BRIT PROBLEM SOLVING: PROBLEM SOLVING - STEP 1: Does the patient need help from a person or device, or need extra time to solve complex problems such as managing a checking account or confronting interpersonal problems? Yes. PROBLEM SOLVING - STEP 2: Does the patient solve basic routine problems half or more of the time? Yes. PROBLEM SOLVING - STEP 3: How often does the patient need help to solve basic routine problems? 10%-24% of the time PROBLEM SOLVING - SCORE: 4-MIN MEMORY: MEMORY - STEP 1: Does the patient need help from a person or device, or need extra time to remember frequently encount ered people, daily routines, and executing requests? Yes. MEMORY - STEP 2: How often does the patient need help to remember frequently encountered people, daily routines, and e xecuting requests? 10% - 24% of the time MEMORY - SCORE: 4-MIN
[2019-04-05 05:26] VITALS: BMI 22.2
[2019-04-05] MEDS: ENOXAPARIN 30 MG/0.3 ML SQ SCH (06:51)
[2019-04-05] MEDS: AMLODIPINE 10 MG TAB PO SCH (08:05)
[2019-04-05] MEDS: CLOPIDOGREL 75 MG TABLET PO SCH (08:05)
[2019-04-05] MEDS: cloNIDine HCl 0.1 MG TAB PO SCH ×2 (08:05→18:58)
[2019-04-05] MEDS: ALLOPURINOL 100 MG TAB PO SCH (08:06)
[2019-04-05] MEDS: HYDRALAZINE HCL 10 MG TABLET PO SCH ×3 (08:06→18:58)
[2019-04-05] MEDS: PROMOD 30 ML DOSE PO SCH ×2 (08:07→18:59)
--- NOTE | 2019-04-05 08:12 | FAST ---
ENCOUNTER DATE AND TIME: 04/05/2019 08:00 (CDT) NAME JENNIFER BELLA DATE OF : 1950 DATE OF ADMISSION: 03/31/2019 17:15 (CDT) PHONE: AGE: 68 N# [id number] GENDER: Male ENCOUNTER PHYSICIAN: Dr. Hardik Hector M.D. ADMISSION DIAGNOSIS: - Stroke 01 - Left Body (Right Brain) (01.1) Acute Right Cerebellar Infarct. EATING: Activity did not occur on this shift EATING - SCORE: 0-UNK GROOMING: Wash, rinse, and dry face Wash, rinse, and dry hands GROOMING - STEP 1: Does the patient require the assistance of a person or device, or need extra time when grooming? No. GROOMING - SCORE: 7-IND BATHING: Abdomen Buttocks Chest Left arm Left lower leg and foot Left upper leg Perineal area Right arm Right lower leg and foot Right upper leg BATHING - STEP 1: Does the patient require the assistance of a person or device, or need extra time when bathing? Yes. BATHING - STEP 2: Does the patient require the assistance of a helper? Yes. BATHING - STEP 3: How much assistance does the patient require from the helper? Only supervision, cuing, coaxing, instr uctions, encouragement BATHING - SCORE: 5-SUP DRESSING - UPPER BODY: T-shirt/pullover shirt (four steps) ARTICLES SCORE Total number of steps: 4 DRESSING - UPPER BODY - STEP 1: Does the patient require help from a person or device, or need extra time when dressing above the sorin st? No. DRESSING - UPPER BODY - SCORE: 7-IND DRESSING - LOWER BODY: Sock - Left foot (one step) Sock - Right foot (one step) Tied or buckled shoe - Left foot (two steps) Tied or buckled shoe - Right foot (two steps) Zippered pants (four steps) ARTICLES SCORE Total number of steps: 10 DRESSING - LOWER BODY - STEP 1: Does the patient require help from a person or device, or need extra time when dressing below the sorin st? Yes. DRESSING - LOWER BODY - STEP 2: Does the patient require the assistance of a helper? Yes. DRESSING - LOWER BODY - STEP 3: Does the helper touch the patient while dressing? No. DRESSING - LOWER BODY - SCORE: 5-SUP TOILETING: TOILETING - STEP 1: Does the patient require the assistance of a person or device, or need extra time with toileting? Yes . TOILETING - STEP 2: Does the patient require the assistance of a helper? Yes. TOILETING - STEP 3: How much assistance does the patient require from the helper? Only supervision TOILETING - SCORE: 5-SUP BLADDER MANAGEMENT: Activity did not occur on this shift BLADDER MANAGEMENT - SCORE: 7-IND BOWEL MANAGEMENT: Activity did not occur on this shift BOWEL MANAGEMENT - SCORE: 7-IND TRANSFERS: BED, CHAIR, WHEELCHAIR: Activity did not occur on this shift TRANSFERS: BED, CHAIR, WHEELCHAIR - SCORE: 0-UNK TRANSFERS: TOILET: TRANSFERS: TOILET - STEP 1: Does the patient require the assistance of a person or device, or need extra time with toilet transfe rs? Yes. TRANSFERS: TOILET - STEP 2: Does the patient require the assistance of a helper? Yes. TRANSFERS: TOILET - STEP 3: How much assistance does the patient require from the helper? Patient performs half or more of the tr ansferring tasks TRANSFERS: TOILET - STEP 4: Does the patient need only incidental help such as contact guard or steadying during toilet transfer? Yes. TRANSFERS: TOILET - SCORE: 4-MIN TRANSFERS: SHOWER: Activity did not occur on this shift TRANSFERS: SHOWER - SCORE: 0-UNK TRANSFERS: TUB: TRANSFERS: TUB - STEP 1: Does the patient require the assistance of a person or device, or need extra time with tub transfers? Yes. TRANSFERS: TUB - STEP 2: Does the patient require the assistance of a helper? Yes. TRANSFERS: TUB - STEP 3: How much assistance does the patient require from the helper? Only supervision, cuing, coaxing, or he lp to set out transfer equipment or to lock brakes and/or lift foot rests TRANSFERS: TUB - SCORE: 5-SUP LOCOMOTION: WALK: Activity did not occur on this shift LOCOMOTION: WALK - SCORE: 0-UNK LOCOMOTION: WHEELCHAIR: Activity did not occur on this shift LOCOMOTION: WHEELCHAIR - SCORE: 0-UNK LOCOMOTION: STAIRS: Activity did not occur on this shift LOCOMOTION: STAIRS - SCORE: 0-UNK COMPREHENSION: COMPREHENSION - SCORE: 0-UNK EXPRESSION EXPRESSION - SCORE: 0-UNK SOCIAL INTERACTION: SOCIAL INTERACTION - SCORE: 0-UNK PROBLEM SOLVING: PROBLEM SOLVING - SCORE: 0-UNK MEMORY: MEMORY - SCORE: 0-UNK SIGNATURE PANEL: The following modified sections: Eating - Score, Grooming - Score, Bathing - Score, Dressing - Upper Body - Score, Dressing - Lower Body - Score, Toileting - Score, Transfers: Bed, Chair, Wheelchair - S core, Transfers: Toilet - Score, Transfers: Toilet - Score, Transfers: Shower - Score, Transfers: Tub - Score, Comprehension - Score, Expression - Score, Social Interaction - Score, Problem Solving - Sc ore, Memory - Score were [electronically] signed by MELBA Patten on Sat Apr 05 2019 08:12: 08 T-0500 (Central Daylight Time)
[2019-04-05] MEDS: LACTULOSE 20 GM/30 ML UCUP PO SCH (10:58)
[2019-04-05] MEDS: ATORVASTATIN 40 MG TAB PO SCH (18:58)
[2019-04-06] MEDS: ENOXAPARIN 30 MG/0.3 ML SQ SCH (06:16)
[2019-04-06] MEDS: CLOPIDOGREL 75 MG TABLET PO SCH (07:26)
[2019-04-06] MEDS: LACTULOSE 20 GM/30 ML UCUP PO SCH (07:26)
[2019-04-06] MEDS: cloNIDine HCl 0.1 MG TAB PO SCH ×2 (07:27→18:57)
[2019-04-06] MEDS: ALLOPURINOL 100 MG TAB PO SCH (07:27)
[2019-04-06] MEDS: AMLODIPINE 10 MG TAB PO SCH (07:27)
[2019-04-06] MEDS: HYDRALAZINE HCL 10 MG TABLET PO SCH ×3 (07:27→18:57)
[2019-04-06] MEDS: PROMOD 30 ML DOSE PO SCH ×2 (07:28→18:59)
[2019-04-06] MEDS: ATORVASTATIN 40 MG TAB PO SCH (18:57)
[2019-04-07] MEDS: ENOXAPARIN 30 MG/0.3 ML SQ SCH (07:13)
[2019-04-07] MEDS: LACTULOSE 20 GM/30 ML UCUP PO SCH (07:13)
[2019-04-07] MEDS: cloNIDine HCl 0.1 MG TAB PO SCH ×2 (07:54→19:37)
[2019-04-07] MEDS: AMLODIPINE 10 MG TAB PO SCH (07:55)
[2019-04-07] MEDS: CLOPIDOGREL 75 MG TABLET PO SCH (07:55)
[2019-04-07] MEDS: ALLOPURINOL 100 MG TAB PO SCH (07:55)
[2019-04-07] MEDS: PROMOD 30 ML DOSE PO SCH ×2 (07:58→19:38)
[2019-04-07] MEDS: HYDRALAZINE HCL 10 MG TABLET PO SCH ×3 (07:58→20:23)
--- NOTE | 2019-04-07 14:56 | FAST ---
ENCOUNTER DATE AND TIME: 04/07/2019 08:00 (CDT) NAME JENNIFER BELLA DATE OF : 1950 DATE OF ADMISSION: 03/31/2019 17:15 (CDT) PHONE: AGE: 68 N# [id number] GENDER: Male ENCOUNTER PHYSICIAN: Dr. Hardik Hector M.D. ADMISSION DIAGNOSIS: - Stroke 01 - Left Body (Right Brain) (01.1) Acute Right Cerebellar Infarct. EATING: Activity did not occur on this shift EATING - SCORE: 0-UNK GROOMING: Activity did not occur on this shift GROOMING - SCORE: 0-UNK BATHING: Activity did not occur on this shift BATHING - SCORE: 0-UNK DRESSING - UPPER BODY: Activity did not occur on this shift Patient is not dressing in public clothing ARTICLES SCORE Total number of steps: 0 DRESSING - UPPER BODY - SCORE: 0-UNK DRESSING - LOWER BODY: Activity did not occur on this shift Patient is not dressing in public clothing ARTICLES SCORE Total number of steps: 0 DRESSING - LOWER BODY - SCORE: 0-UNK TOILETING: Activity did not occur on this shift TOILETING - SCORE: 0-UNK BLADDER MANAGEMENT: Activity did not occur on this shift BLADDER MANAGEMENT - SCORE: 7-IND BOWEL MANAGEMENT: Activity did not occur on this shift BOWEL MANAGEMENT - SCORE: 7-IND TRANSFERS: BED, CHAIR, WHEELCHAIR: TRANSFERS: BED, CHAIR, WHEELCHAIR - STEP 1: Does the patient require assistance of a person or device, or need extra time with bed, chair, or whe elchair transfers? Yes. TRANSFERS: BED, CHAIR, WHEELCHAIR - STEP 2: Does the patient require the assistance of a helper? Yes. TRANSFERS: BED, CHAIR, WHEELCHAIR - STEP 3: How much assistance does the patient require from the helper? Only supervision TRANSFERS: BED, CHAIR, WHEELCHAIR - SCORE: 5-SUP TRANSFERS: TOILET: Activity did not occur on this shift TRANSFERS: TOILET - SCORE: 0-UNK TRANSFERS: SHOWER: Activity did not occur on this shift TRANSFERS: SHOWER - SCORE: 0-UNK TRANSFERS: TUB: Activity did not occur on this shift TRANSFERS: TUB - SCORE: 0-UNK LOCOMOTION: WALK: LOCOMOTION: WALK - STEP 1: Does the patient need help from a person or device, or need extra time to walk 150 feet? Yes. LOCOMOTION: WALK - STEP 2: How much assistance does the patient require to walk a minimum of 150 feet? Only incidental help such as contact guarding or steadying LOCOMOTION: WALK - SCORE: 4-MIN LOCOMOTION: WHEELCHAIR: LOCOMOTION: WHEELCHAIR - STEP 1: Does the patient need help to go 150 feet in a wheelchair? Yes. LOCOMOTION: WHEELCHAIR - STEP 2: How much assistance does the patient need from the helper? Only supervision, cuing, or coaxing LOCOMOTION: WHEELCHAIR - SCORE: 5-SUP LOCOMOTION: STAIRS: LOCOMOTION: STAIRS - STEP 1: Does the patient need help to go up and down 12 to 14 stairs? Yes. LOCOMOTION: STAIRS - STEP 2: How much assistance does the patient need from the helper to go a minimum of 12 to 14 stairs? Only talbot pervision, cuing, or coaxing LOCOMOTION: STAIRS - SCORE: 5-SUP COMPREHENSION: COMPREHENSION - SCORE: 0-UNK EXPRESSION EXPRESSION - SCORE: 0-UNK SOCIAL INTERACTION: SOCIAL INTERACTION - SCORE: 0-UNK PROBLEM SOLVING: PROBLEM SOLVING - SCORE: 0-UNK MEMORY: MEMORY - SCORE: 0-UNK SIGNATURE PANEL: The following modified sections: Transfers: Bed, Chair, Wheelchair - Score, Transfers: Toilet - Score , Locomotion: Walk - Score, Locomotion: Wheelchair - Score, Locomotion: Stairs - Score were [julian stuart] signed by Demarcus Barger PTA on SunApr 07 2019 14:55:09 GMT-0500 (Central Daylight Time)
[2019-04-07] MEDS: ATORVASTATIN 40 MG TAB PO SCH (20:24)
--- NOTE | 2019-04-08 00:15 | FAST ---
SHIFT START DATE/TIME: 04/07/2019 19:00 (CDT) SHIFT END DATE/TIME: 04/08/2019 07:00 (CDT) NAME JENNIFER BELLA DATE OF : 1950 DATE OF ADMISSION: 03/31/2019 17:15 (CDT) PHONE: AGE: 68 N# [id number] GENDER: Male ENCOUNTER PHYSICIAN: Dr. Hardik Hector M.D. ADMISSION DIAGNOSIS: - Stroke 01 - Left Body (Right Brain) (01.1) Acute Right Cerebellar Infarct. EATING: Activity did not occur on this shift EATING - SCORE: 0-UNK GROOMING: Activity did not occur on this shift GROOMING - SCORE: 0-UNK BATHING: Activity did not occur on this shift BATHING - SCORE: 0-UNK DRESSING - UPPER BODY: Patient is not dressing in public clothing ARTICLES SCORE Total number of steps: 0 DRESSING - UPPER BODY - SCORE: 0-UNK DRESSING - LOWER BODY: Patient is not dressing in public clothing ARTICLES SCORE Total number of steps: 0 DRESSING - LOWER BODY - SCORE: 0-UNK TOILETING: TOILETING - STEP 1: Does the patient require the assistance of a person or device, or need extra time with toileting? Yes . TOILETING - STEP 2: Does the patient require the assistance of a helper? Yes. TOILETING - STEP 3: How much assistance does the patient require from the helper? Only supervision TOILETING - SCORE: 5-SUP BLADDER MANAGEMENT: BLADDER MANAGEMENT - STEP 1: Does the patient control the bladder completely and intentionally without equipment or devices or med ications, and is always continent? Yes. BLADDER MANAGEMENT - SCORE: 7-IND BOWEL MANAGEMENT: BOWEL MANAGEMENT - STEP 1: Does the patient control bowels completely and intentionally without equipment devices or medications AND is always continent? No. BOWEL MANAGEMENT - STEP 2: Does the patient require the assistance of a helper? No, patient requires medication for control such as stool softeners, suppositories, laxatives, enemas, or OTC medications BOWEL MANAGEMENT - SCORE: 6-BRIT TRANSFERS: BED, CHAIR, WHEELCHAIR: TRANSFERS: BED, CHAIR, WHEELCHAIR - STEP 1: Does the patient require assistance of a person or device, or need extra time with bed, chair, or whe elchair transfers? Yes. TRANSFERS: BED, CHAIR, WHEELCHAIR - STEP 2: Does the patient require the assistance of a helper? No. Patient only requires an assistive device fo r bed, chair, wheelchair transfers such as a sliding board, grab bar, or brace, OR s/he takes more th an reasonable time, OR there is a safety concern when s/he performs the transfers TRANSFERS: BED, CHAIR, WHEELCHAIR - SCORE: 6-BRIT TRANSFERS: TOILET: TRANSFERS: TOILET - STEP 1: Does the patient require the assistance of a person or device, or need extra time with toilet transfe rs? Yes. TRANSFERS: TOILET - STEP 2: Does the patient require the assistance of a helper? No. Patient only requires an assistive device talbot ch as a grab bar or special seat, OR s/he takes more than reasonable time to perform toilet transfers , OR there is a safety concern when s/he performs toilet transfers. TRANSFERS: TOILET - SCORE: 6-BRIT TRANSFERS: SHOWER: Activity did not occur on this shift TRANSFERS: SHOWER - SCORE: 0-UNK TRANSFERS: TUB: Activity did not occur on this shift TRANSFERS: TUB - SCORE: 0-UNK LOCOMOTION: WALK: Activity did not occur on this shift LOCOMOTION: WALK - SCORE: 0-UNK LOCOMOTION: WHEELCHAIR: Activity did not occur on this shift LOCOMOTION: WHEELCHAIR - SCORE: 0-UNK COMPREHENSION: COMPREHENSION: TYPE: Both COMPREHENSION - STEP 1: Does the patient require help from a person or device, or need extra time to understand complex and a bstract ideas (such as current events, finances, discharge planning, medical issues, relationships, e tc)? Yes. COMPREHENSION - STEP 2: Does the patient require help to understand questions or statements about basic needs or ideas (such as hunger, thirst, sleep, safety, daily schedule, room location, or discomfort) half or more of the t nichelle? No. COMPREHENSION - STEP 3: How often does the patient need help to understand directions and conversation about basic needs? 10% - 24% of the time COMPREHENSION - SCORE: 4-MIN EXPRESSION EXPRESSION: TYPE: Both EXPRESSION - STEP 1: Does the patient require help from a person or device, or need extra time expressing complex and abst ract ideas (such as current events, finances, discharge planning, medical issues, relationships, etc) ? No. EXPRESSION - STEP 2: Does the patient need extra time, require an assistive device (such as augmentive communication syste m or a communication board), OR does s/he have mild difficulty expressing complex and abstract ideas (including mild dysarthria or mild word-find problems)? No. EXPRESSION - SCORE: 7-IND SOCIAL INTERACTION: SOCIAL INTERACTION - STEP 1: Does the patient require a helper to interact with others in social and therapeutic situations? No. SOCIAL INTERACTION - STEP 2: Does the patient need extra time in social situations, OR does s/he interact with staff, other patien ts, and family members ONLY in structured environments, OR does s/he require medication for social in teraction? Yes, patient needs extra time SOCIAL INTERACTION - SCORE: 6-BRIT PROBLEM SOLVING: PROBLEM SOLVING - STEP 1: Does the patient need help from a person or device, or need extra time to solve complex problems such as managing a checking account or confronting interpersonal problems? Yes. PROBLEM SOLVING - STEP 2: Does the patient solve basic routine problems half or more of the time? Yes. PROBLEM SOLVING - STEP 3: How often does the patient need help to solve basic routine problems? Less than 10% of the time PROBLEM SOLVING - SCORE: 5-SUP MEMORY: MEMORY - STEP 1: Does the patient need help from a person or device, or need extra time to remember frequently encount ered people, daily routines, and executing requests? No. MEMORY - STEP 2: Does the patient have slight difficulty recognizing frequently encountered people, daily routines, or executing requests without the need for repetition or using self-initiated or environmental cues to remember? Yes. MEMORY - SCORE: 6-BRIT SIGNATURE PANEL: The following modified sections: Eating - Score, Grooming - Score, Dressing - Upper Body - Score, Panda ssing - Lower Body - Score, Toileting - Score, Bladder Management - Score, Bowel Management - Score, Transfers: Bed, Chair, Wheelchair - Score, Transfers: Toilet - Score, Transfers: Toilet - Score, [place] sfers: Shower - Score, Transfers: Tub - Score, Locomotion: Walk - Score, Locomotion: Wheelchair - Sco re, Comprehension - Score, Expression - Score, Social Interaction - Score, Problem Solving - Score, M maurice - Score were [electronically] signed by Jody Hernandez CNA on SunApr 08 2019 00:14:21 GMT-050 0 (Central Daylight Time)
[2019-04-08] MEDS: AMLODIPINE 10 MG TAB PO SCH (07:54)
[2019-04-08] MEDS: LACTULOSE 20 GM/30 ML UCUP PO SCH (07:54)
[2019-04-08] MEDS: ENOXAPARIN 30 MG/0.3 ML SQ SCH (07:54)
[2019-04-08] MEDS: cloNIDine HCl 0.1 MG TAB PO SCH ×2 (07:54→19:30)
[2019-04-08] MEDS: HYDRALAZINE HCL 10 MG TABLET PO SCH ×3 (07:55→20:40)
[2019-04-08] MEDS: PROMOD 30 ML DOSE PO SCH ×2 (07:55→19:31)
[2019-04-08] MEDS: CLOPIDOGREL 75 MG TABLET PO SCH (07:55)
[2019-04-08] MEDS: ALLOPURINOL 100 MG TAB PO SCH (07:55)
--- NOTE | 2019-04-08 14:42 | FAST ---
ENCOUNTER DATE AND TIME: 04/08/2019 08:00 (CDT) NAME JENNIFER BELLA DATE OF : 1950 DATE OF ADMISSION: 03/31/2019 17:15 (CDT) PHONE: AGE: 68 N# [id number] GENDER: Male ENCOUNTER PHYSICIAN: Dr. Hardik Hector M.D. ADMISSION DIAGNOSIS: - Stroke 01 - Left Body (Right Brain) (01.1) Acute Right Cerebellar Infarct. EATING: Activity did not occur on this shift EATING - SCORE: 0-UNK GROOMING: Activity did not occur on this shift GROOMING - SCORE: 0-UNK BATHING: Activity did not occur on this shift BATHING - SCORE: 0-UNK DRESSING - UPPER BODY: Activity did not occur on this shift Patient is not dressing in public clothing ARTICLES SCORE Total number of steps: 0 DRESSING - UPPER BODY - SCORE: 0-UNK DRESSING - LOWER BODY: Activity did not occur on this shift Patient is not dressing in public clothing ARTICLES SCORE Total number of steps: 0 DRESSING - LOWER BODY - SCORE: 0-UNK TOILETING: Activity did not occur on this shift TOILETING - SCORE: 0-UNK BLADDER MANAGEMENT: Activity did not occur on this shift BLADDER MANAGEMENT - SCORE: 7-IND BOWEL MANAGEMENT: Activity did not occur on this shift BOWEL MANAGEMENT - SCORE: 7-IND TRANSFERS: BED, CHAIR, WHEELCHAIR: TRANSFERS: BED, CHAIR, WHEELCHAIR - STEP 1: Does the patient require assistance of a person or device, or need extra time with bed, chair, or whe elchair transfers? Yes. TRANSFERS: BED, CHAIR, WHEELCHAIR - STEP 2: Does the patient require the assistance of a helper? Yes. TRANSFERS: BED, CHAIR, WHEELCHAIR - STEP 3: How much assistance does the patient require from the helper? Only supervision TRANSFERS: BED, CHAIR, WHEELCHAIR - SCORE: 5-SUP TRANSFERS: TOILET: Activity did not occur on this shift TRANSFERS: TOILET - SCORE: 0-UNK TRANSFERS: SHOWER: Activity did not occur on this shift TRANSFERS: SHOWER - SCORE: 0-UNK TRANSFERS: TUB: Activity did not occur on this shift TRANSFERS: TUB - SCORE: 0-UNK LOCOMOTION: WALK: LOCOMOTION: WALK - STEP 1: Does the patient need help from a person or device, or need extra time to walk 150 feet? Yes. LOCOMOTION: WALK - STEP 2: How much assistance does the patient require to walk a minimum of 150 feet? Only incidental help such as contact guarding or steadying LOCOMOTION: WALK - SCORE: 4-MIN LOCOMOTION: WHEELCHAIR: LOCOMOTION: WHEELCHAIR - STEP 1: Does the patient need help to go 150 feet in a wheelchair? Yes. LOCOMOTION: WHEELCHAIR - STEP 2: How much assistance does the patient need from the helper? Only supervision, cuing, or coaxing LOCOMOTION: WHEELCHAIR - SCORE: 5-SUP LOCOMOTION: STAIRS: LOCOMOTION: STAIRS - STEP 1: Does the patient need help to go up and down 12 to 14 stairs? Yes. LOCOMOTION: STAIRS - STEP 2: How much assistance does the patient need from the helper to go a minimum of 12 to 14 stairs? Only talbot pervision, cuing, or coaxing LOCOMOTION: STAIRS - SCORE: 5-SUP COMPREHENSION: COMPREHENSION - SCORE: 0-UNK EXPRESSION EXPRESSION - SCORE: 0-UNK SOCIAL INTERACTION: SOCIAL INTERACTION - SCORE: 0-UNK PROBLEM SOLVING: PROBLEM SOLVING - SCORE: 0-UNK MEMORY: MEMORY - SCORE: 0-UNK SIGNATURE PANEL: The following modified sections: Transfers: Bed, Chair, Wheelchair - Score, Transfers: Toilet - Score , Locomotion: Walk - Score, Locomotion: Wheelchair - Score, Locomotion: Stairs - Score were [julian stuart] signed by Demarcus Barger PTA on SunApr 08 2019 14:41:43 GMT-0500 (Central Daylight Time)
--- NOTE | 2019-04-08 15:16 | FAST ---
SHIFT START DATE/TIME: 04/08/2019 07:00 (CDT) SHIFT END DATE/TIME: 04/08/2019 19:00 (CDT) NAME JENNIFER BELLA DATE OF : 1950 DATE OF ADMISSION: 03/31/2019 17:15 (CDT) PHONE: AGE: 68 N# [id number] GENDER: Male ENCOUNTER PHYSICIAN: Dr. Hardik Hector M.D. ADMISSION DIAGNOSIS: - Stroke 01 - Left Body (Right Brain) (01.1) Acute Right Cerebellar Infarct. EATING: EATING - STEP 1: Does the patient require the assistance of a person or device, or need extra time when eating? Yes. EATING - STEP 2: Does the patient require the assistance of a helper? No, patient only requires an assistive device, O R s/he takes more than reasonable time to eat, OR there is a safety concern, OR s/he requires modifie d food consistency EATING - SCORE: 6-BRIT GROOMING: Activity did not occur on this shift GROOMING - SCORE: 0-UNK BATHING: Activity did not occur on this shift BATHING - SCORE: 0-UNK DRESSING - UPPER BODY: Activity did not occur on this shift ARTICLES SCORE Total number of steps: 0 DRESSING - UPPER BODY - SCORE: 0-UNK DRESSING - LOWER BODY: Activity did not occur on this shift ARTICLES SCORE Total number of steps: 0 DRESSING - LOWER BODY - SCORE: 0-UNK TOILETING: TOILETING - STEP 1: Does the patient require the assistance of a person or device, or need extra time with toileting? Yes . TOILETING - STEP 2: Does the patient require the assistance of a helper? Yes. TOILETING - STEP 3: How much assistance does the patient require from the helper? Hands-on assistance from the helper TOILETING - STEP 4: Of the 3 tasks: 1) Adjusting clothing prior to use, 2) Cleansing of perineal area, 3) Adjusting clot ricci after use; How many tasks does the patient perform WITHOUT assistance of the helper? Three tasks with steadying assistance from the helper TOILETING - SCORE: 4-MIN BLADDER MANAGEMENT: BLADDER MANAGEMENT - STEP 1: Does the patient control the bladder completely and intentionally without equipment or devices or med ications, and is always continent? No. BLADDER MANAGEMENT - STEP 2: Does the patient require the assistance of a helper? No, patient requires and independently uses an a ssistive device, such as a urinal, bedpan, bedside commode, catheter, absorbent pad, or collecting de vice BLADDER MANAGEMENT - SCORE: 6-BRIT BOWEL MANAGEMENT: Activity did not occur on this shift BOWEL MANAGEMENT - SCORE: 7-IND TRANSFERS: BED, CHAIR, WHEELCHAIR: TRANSFERS: BED, CHAIR, WHEELCHAIR - STEP 1: Does the patient require assistance of a person or device, or need extra time with bed, chair, or whe elchair transfers? Yes. TRANSFERS: BED, CHAIR, WHEELCHAIR - STEP 2: Does the patient require the assistance of a helper? Yes. TRANSFERS: BED, CHAIR, WHEELCHAIR - STEP 3: How much assistance does the patient require from the helper? Steadying/guiding assistance TRANSFERS: BED, CHAIR, WHEELCHAIR - SCORE: 4-MIN TRANSFERS: TOILET: TRANSFERS: TOILET - STEP 1: Does the patient require the assistance of a person or device, or need extra time with toilet transfe rs? Yes. TRANSFERS: TOILET - STEP 2: Does the patient require the assistance of a helper? Yes. TRANSFERS: TOILET - STEP 3: How much assistance does the patient require from the helper? Patient performs half or more of the tr ansferring tasks TRANSFERS: TOILET - STEP 4: Does the patient need only incidental help such as contact guard or steadying during toilet transfer? Yes. TRANSFERS: TOILET - SCORE: 4-MIN TRANSFERS: SHOWER: Activity did not occur on this shift TRANSFERS: SHOWER - SCORE: 0-UNK TRANSFERS: TUB: Activity did not occur on this shift TRANSFERS: TUB - SCORE: 0-UNK LOCOMOTION: WALK: Activity did not occur on this shift LOCOMOTION: WALK - SCORE: 0-UNK LOCOMOTION: WHEELCHAIR: Activity did not occur on this shift LOCOMOTION: WHEELCHAIR - SCORE: 0-UNK COMPREHENSION: COMPREHENSION: TYPE: Both COMPREHENSION - STEP 1: Does the patient require help from a person or device, or need extra time to understand complex and a bstract ideas (such as current events, finances, discharge planning, medical issues, relationships, e tc)? Yes. COMPREHENSION - STEP 2: Does the patient require help to understand questions or statements about basic needs or ideas (such as hunger, thirst, sleep, safety, daily schedule, room location, or discomfort) half or more of the t nichelle? No. COMPREHENSION - STEP 3: How often does the patient need help to understand directions and conversation about basic needs? 10% - 24% of the time COMPREHENSION - SCORE: 0-UNK EXPRESSION EXPRESSION: TYPE: Both EXPRESSION - SCORE: 0-UNK SOCIAL INTERACTION: SOCIAL INTERACTION - SCORE: 0-UNK PROBLEM SOLVING: PROBLEM SOLVING - SCORE: 0-UNK MEMORY: MEMORY - SCORE: 0-UNK SIGNATURE PANEL: The following modified sections: Eating - Score, Grooming - Score, Bathing - Score, Dressing - Upper Body - Score, Dressing - Lower Body - Score, Toileting - Score, Bladder Management - Score, Bladder M anagement - Score, Bowel Management - Score, Transfers: Bed, Chair, Wheelchair - Score, Transfers: To ilet - Score, Transfers: Shower - Score, Transfers: Tub - Score, Locomotion: Walk - Score, Locomotion : Wheelchair - Score, Comprehension - Score, Comprehension - Score, Comprehension - Score, Expression - Score, Social Interaction - Score, Problem Solving - Score, Memory - Score were [electronically] s igned by Grant Munoz on SunApr 08 2019 15:15:33 GMT-0500 (Central Daylight Time)
--- NOTE | 2019-04-08 15:39 | FAST ---
ENCOUNTER DATE AND TIME: 04/08/2019 08:00 (CDT) NAME JENNIFER BELLA DATE OF : 1950 DATE OF ADMISSION: 03/31/2019 17:15 (CDT) PHONE: AGE: 68 N# [id number] GENDER: Male ENCOUNTER PHYSICIAN: Dr. Hardik Hector M.D. ADMISSION DIAGNOSIS: - Stroke 01 - Left Body (Right Brain) (01.1) Acute Right Cerebellar Infarct. EATING: Activity did not occur on this shift EATING - SCORE: 0-UNK GROOMING: Wash, rinse, and dry face Wash, rinse, and dry hands GROOMING - STEP 1: Does the patient require the assistance of a person or device, or need extra time when grooming? No. GROOMING - SCORE: 7-IND BATHING: Abdomen Buttocks Chest Left arm Left lower leg and foot Left upper leg Perineal area Right arm Right lower leg and foot Right upper leg BATHING - STEP 1: Does the patient require the assistance of a person or device, or need extra time when bathing? Yes. BATHING - STEP 2: Does the patient require the assistance of a helper? Yes. BATHING - STEP 3: How much assistance does the patient require from the helper? Only supervision, cuing, coaxing, instr uctions, encouragement BATHING - SCORE: 5-SUP DRESSING - UPPER BODY: T-shirt/pullover shirt (four steps) ARTICLES SCORE Total number of steps: 4 DRESSING - UPPER BODY - STEP 1: Does the patient require help from a person or device, or need extra time when dressing above the sorin st? Yes. DRESSING - UPPER BODY - STEP 2: Does the patient require the assistance of a helper? Yes. DRESSING - UPPER BODY - STEP 3: Does the helper touch the patient while dressing? No. DRESSING - UPPER BODY - SCORE: 5-SUP DRESSING - LOWER BODY: Elastic waist pants (three steps) Sock - Left foot (one step) Sock - Right foot (one step) Tied or buckled shoe - Left foot (two steps) Tied or buckled shoe - Right foot (two steps) Underwear (three steps) ARTICLES SCORE Total number of steps: 12 DRESSING - LOWER BODY - STEP 1: Does the patient require help from a person or device, or need extra time when dressing below the sorin st? Yes. DRESSING - LOWER BODY - STEP 2: Does the patient require the assistance of a helper? Yes. DRESSING - LOWER BODY - STEP 3: Does the helper touch the patient while dressing? No. DRESSING - LOWER BODY - SCORE: 5-SUP TOILETING: Activity did not occur on this shift TOILETING - SCORE: 0-UNK BLADDER MANAGEMENT: Activity did not occur on this shift BLADDER MANAGEMENT - SCORE: 7-IND BOWEL MANAGEMENT: Activity did not occur on this shift BOWEL MANAGEMENT - SCORE: 7-IND TRANSFERS: BED, CHAIR, WHEELCHAIR: Activity did not occur on this shift TRANSFERS: BED, CHAIR, WHEELCHAIR - SCORE: 0-UNK TRANSFERS: TOILET: Activity did not occur on this shift TRANSFERS: TOILET - SCORE: 0-UNK TRANSFERS: SHOWER: Activity did not occur on this shift TRANSFERS: SHOWER - SCORE: 0-UNK TRANSFERS: TUB: TRANSFERS: TUB - STEP 1: Does the patient require the assistance of a person or device, or need extra time with tub transfers? Yes. TRANSFERS: TUB - STEP 2: Does the patient require the assistance of a helper? Yes. TRANSFERS: TUB - STEP 3: How much assistance does the patient require from the helper? Only supervision, cuing, coaxing, or he lp to set out transfer equipment or to lock brakes and/or lift foot rests TRANSFERS: TUB - SCORE: 5-SUP LOCOMOTION: WALK: Activity did not occur on this shift LOCOMOTION: WALK - SCORE: 0-UNK LOCOMOTION: WHEELCHAIR: Activity did not occur on this shift LOCOMOTION: WHEELCHAIR - SCORE: 0-UNK LOCOMOTION: STAIRS: Activity did not occur on this shift LOCOMOTION: STAIRS - SCORE: 0-UNK COMPREHENSION: COMPREHENSION: TYPE: Visual COMPREHENSION - STEP 1: Does the patient require help from a person or device, or need extra time to understand complex and a bstract ideas (such as current events, finances, discharge planning, medical issues, relationships, e tc)? Yes. COMPREHENSION - STEP 2: Does the patient require help to understand questions or statements about basic needs or ideas (such as hunger, thirst, sleep, safety, daily schedule, room location, or discomfort) half or more of the t nichelle? No. COMPREHENSION - STEP 3: How often does the patient need help to understand directions and conversation about basic needs? 10% - 24% of the time COMPREHENSION - SCORE: 4-MIN EXPRESSION EXPRESSION: TYPE: Non-Vocal EXPRESSION - STEP 1: Does the patient require help from a person or device, or need extra time expressing complex and abst ract ideas (such as current events, finances, discharge planning, medical issues, relationships, etc) ? Yes. EXPRESSION - STEP 2: Does the patient require help to express basic necessities or ideas (such as hunger, thirst, sleep, s afety, daily schedule, room location, or discomfort) half or more of the time? No. EXPRESSION - STEP 3: How often does the patient need help to express directions and conversation about basic needs? 10-24% of the time EXPRESSION - SCORE: 4-MIN SOCIAL INTERACTION: SOCIAL INTERACTION - STEP 1: Does the patient require a helper to interact with others in social and therapeutic situations? No. SOCIAL INTERACTION - STEP 2: Does the patient need extra time in social situations, OR does s/he interact with staff, other patien ts, and family members ONLY in structured environments, OR does s/he require medication for social in teraction? Yes, patient needs extra time SOCIAL INTERACTION - SCORE: 6-BRIT PROBLEM SOLVING: PROBLEM SOLVING - STEP 1: Does the patient need help from a person or device, or need extra time to solve complex problems such as managing a checking account or confronting interpersonal problems? Yes. PROBLEM SOLVING - STEP 2: Does the patient solve basic routine problems half or more of the time? Yes. PROBLEM SOLVING - STEP 3: How often does the patient need help to solve basic routine problems? 10%-24% of the time PROBLEM SOLVING - SCORE: 4-MIN MEMORY: MEMORY - STEP 1: Does the patient need help from a person or device, or need extra time to remember frequently encount ered people, daily routines, and executing requests? Yes. MEMORY - STEP 2: How often does the patient need help to remember frequently encountered people, daily routines, and e xecuting requests? 10% - 24% of the time MEMORY - SCORE: 4-MIN SIGNATURE PANEL: The following modified sections: Eating - Score, Grooming - Score, Bathing - Score, Dressing - Upper Body - Score, Dressing - Lower Body - Score, Toileting - Score, Transfers: Bed, Chair, Wheelchair - S core, Transfers: Toilet - Score, Transfers: Shower - Score, Transfers: Tub - Score, Comprehension - S core, Expression - Score, Social Interaction - Score, Problem Solving - Score, Memory - Score were [e lectronically] signed by MELBA Patten on SunApr 08 2019 15:38:19 [facility]-0500 ([facility] Time)
--- NOTE | 2019-04-08 19:13 | R.PN ---
ENCOUNTER DATE AND TIME: 04/08/2019 19:07 (CDT) NAME ARAVIND LOW DATE OF : 1950 DATE OF ADMISSION: 03/31/2019 17:15 (CDT) Acute Right Cerebellar InfarctCHIEF COMPLAINT: Right cerebellar stroke SUBJECTIVE: Pt denied any Shortness of Breath. Pt denied any depression. He is making good progress with physical and occupational therapy. He is limited by mild to moderate cognitive deficits. Ambulated 500' with supervision using a rolling walker. VITAL SIGNS Temperature: 98.2 F SBP/DBP: 165/86 Pulse: 65 Resp: 16 MEDICATION ALLERGIES: No Known Drug Allergies (NKDA) ENVIRONMENTAL ALLERGIES: None Known - Substance Allergies None Known - Other Allergies None Known NURSING: - Shower allowing shower - Bladder care per protocol - Skin care per protocol PRECAUTIONS: - Weight Bearing Precaution WBAT left LE ACTIVITIES OOB only with supervision THERAPIES: - Occupational Therapy Cognitive Retraining. Visual Perceptual Training. - Dietary and Nutrition Adequate Nutrition. Nutritional Education. Nutritional Supplements. - Speech Therapy Cognitive Training. Expressive Language Skills. Memory Strategies. Receptive Language Skills. Speech Intelligibility Training. PHYSICAL EXAM - Gen Alert and awake Lying in bed No apparent distress Oriented to: person, time, and place - Skin No breakdown No abnormalities - Eyes No abnormalities - ENMT No abnormalities - Neck No abnormalities - CVS RRR - Chest No abnormalities - Resp Clear to auscultation - Abd Soft - GI Soft Deferred - No abnormalities - Ext No significant edema - MSK 4+/5 weakness in left upper and lower extremity - Neuro 4/5 strength left upper and lower extremities. - Psych No abnormalities ASSESSMENT: Pt. is a 68 yo Right-handed black male.On 03/27/2019 Pt. presented to [facility] with sudden onset of left-side weakness.On 03/27/2019 he was admitted to [facility] with diagnosis Acute Right Cerebellar Infarct.His impairment category is Stroke 01 - Left Bod y (Right Brain) (01.1).Pre-morbidly, Pt. was independent/mod-I in Self-Care, Sphincter Control, Trans fers Control, Locomotion, Communication, and Social Cognition; and he had good Sphincter Control.Curr ently, he has deficits of Self-Care, Transfers Control, Locomotion, Endurance, Balance, and Safety Aw areness.Pt. is now referred to [facility] for acute in-patient rehabilitation in order to maximize patient's functional independence in activities of daily living, strength, ROM, and mobility.- Rehab Goal Patient has realistic goal of being discharged at assistance level 6-Yarely to reside at Home with Fam saloni/Relatives. MDM/PLAN: - Physical Therapy Gait dysfunction - to improve, our physical therapists will perform initial evaluation of pt's statu s upon admission and devise an individualized program for Gait Training, and Wheel Chair mobility Inability to transfer - to improve, our physical therapists will perform initial evaluation of pt's status upon admission and devise an individualized program for Bed mobility Need for home safety evaluation - to improve, our physical therapists will perform initial evaluatio n of pt's status upon admission and devise an individualized program for Home Evaluation Need in caregiver upon discharge - to improve, our physical therapists will perform initial evaluati on of pt's status upon admission and devise an individualized program for Caregiver Training New precaution - to improve, our physical therapists will perform initial evaluation of pt's status upon admission and devise an individualized program for Patient precaution education Poor balance - to improve, our physical therapists will perform initial evaluation of pt's status up on admission and devise an individualized program for Balance Training Poor endurance - to improve, our physical therapists will perform initial evaluation of pt's status upon admission and devise an individualized program for Endurance Training Weakness - to improve, our physical therapists will perform initial evaluation of pt's status upon a dmission and devise an individualized program for Aquatic Therapy, Neuromuscular Reeducation, and Str engthening Edema - to improve, our physical therapists will perform initial evaluation of pt's status upon admi ssion and devise an individualized program for Elevation Training, and Lymphedema Therapy - Occupational Therapy ADL deficits - to improve, our occupation therapists will perform initial evaluation of pt's status upon admission and devise an individualized program for Bathing, Bed mobility, Community Reintegratio n, Cooking, Dressing, Eating, Fine Motor Skills, Grooming, Homemaking, Kitchen Mobility, Laundry, Pat ient Education, Safety Awareness, Splinting - Positioning, Transfers(Toilet, Tub, Shower), and Wheel Chair Management Need for resident care aid - to improve, our occupation therapists will perform initial evaluation of pt's status upon admission and devise an individualized program for Caregiver Training Weakness - to improve, our occupation therapists will perform initial evaluation of pt's status upon admission and devise an individualized program for Aquatic Therapy, Balance, Endurance, UE ROM, and UE strengthening - Other See attached MAR (Medication Administration Record) Aravind Low.pdf See attached MAR (Medication Administration Record) - Bladder care per protocol - Weight Bearing Precaution WBAT left LE - Skin care per protocol - Diet - Solid Texture Continue Regular - Shower allowing shower for Dementia, TBI, Stroke, or others FUNCTIONAL STATUS: UPDATED AT WEEKLY TEAM CONFERENCE - Bladder Same accident frequency: 7-Ind - No accidents in the past 7 days - Bowel Same accident frequency: 7-Ind - No accidents in the past 7 days - Walking Same score based on distance walked: 3(>=150ft) - Wheelchair Same score based on distance traveled: 0(N/A) FUNCTIONAL STATUS: - Self-Care A. Eating sup B. Grooming sup C. Bathing sup D. Dressing - Upper sup E. Dressing - Lower sup F. Toileting Ankita - Sphincter Control G: Bladder control Ind H: Bowel control Ind - Transfers Control I. Bed/Chair/Wheelchair CGA J. Toilet CGA K. Tub/Shower ADNO - Locomotion L. Walk/Wheelchair (C) CGA L. Walk/Wheelchair (W) CGA M. Stairs ADNO - Communication N. Comprehension (B) Yarely O. Expression (B) Yarely - Social Cognition P. Social Interaction Yarely Q. Problem Solving Yarely R. Memory Yarely - Endurance Fair - Balance Fair - Safety Awareness Fair CURRENT FUNC. DEFICITS: Self-Care, Transfers Control, Locomotion, Endurance, Balance, and Safety Awareness SIGNATURE PANEL: (CDT)
[2019-04-08] MEDS: ATORVASTATIN 40 MG TAB PO SCH (20:40)
[2019-04-09] MEDS: ENOXAPARIN 30 MG/0.3 ML SQ SCH (07:45)
[2019-04-09] MEDS: LACTULOSE 20 GM/30 ML UCUP PO SCH (07:45)
[2019-04-09] MEDS: CLOPIDOGREL 75 MG TABLET PO SCH (07:45)
[2019-04-09] MEDS: cloNIDine HCl 0.1 MG TAB PO SCH ×2 (07:46→19:06)
[2019-04-09] MEDS: AMLODIPINE 10 MG TAB PO SCH (07:46)
[2019-04-09] MEDS: ALLOPURINOL 100 MG TAB PO SCH (07:46)
[2019-04-09] MEDS: PROMOD 30 ML DOSE PO SCH ×2 (07:49→19:07)
[2019-04-09] MEDS: HYDRALAZINE HCL 10 MG TABLET PO SCH ×3 (08:16→19:07)
--- NOTE | 2019-04-09 14:23 | FAST ---
SHIFT START DATE/TIME: 04/09/2019 07:00 (CDT) SHIFT END DATE/TIME: 04/09/2019 19:00 (CDT) NAME JENNIFER BELLA DATE OF : 1950 DATE OF ADMISSION: 03/31/2019 17:15 (CDT) PHONE: AGE: 68 N# [id number] GENDER: Male ENCOUNTER PHYSICIAN: Dr. Hardik Hector M.D. ADMISSION DIAGNOSIS: - Stroke 01 - Left Body (Right Brain) (01.1) Acute Right Cerebellar Infarct. EATING: EATING - STEP 1: Does the patient require the assistance of a person or device, or need extra time when eating? Yes. EATING - STEP 2: Does the patient require the assistance of a helper? Yes. EATING - STEP 3: Does the patient perform half or more of the eating tasks? Yes. EATING - STEP 4: Does the patient need only supervision, cuing, coaxing OR help to apply an orthosis OR help to cut fo od, open containers, pour liquids, or butter bread? Yes. EATING - SCORE: 5-SUP GROOMING: GROOMING - STEP 1: Does the patient require the assistance of a person or device, or need extra time when grooming? Yes. GROOMING - STEP 2: Does the patient require the assistance of a helper? Yes. GROOMING - STEP 3: How much assistance does the patient require from the helper? Only prior equipment preparation/set up from the helper GROOMING - SCORE: 5-SUP BATHING: Activity did not occur on this shift BATHING - SCORE: 0-UNK DRESSING - UPPER BODY: Activity did not occur on this shift ARTICLES SCORE Total number of steps: 0 DRESSING - UPPER BODY - SCORE: 0-UNK DRESSING - LOWER BODY: Activity did not occur on this shift ARTICLES SCORE Total number of steps: 0 DRESSING - LOWER BODY - SCORE: 0-UNK TOILETING: TOILETING - STEP 1: Does the patient require the assistance of a person or device, or need extra time with toileting? Yes . TOILETING - STEP 2: Does the patient require the assistance of a helper? Yes. TOILETING - STEP 3: How much assistance does the patient require from the helper? Hands-on assistance from the helper TOILETING - STEP 4: Of the 3 tasks: 1) Adjusting clothing prior to use, 2) Cleansing of perineal area, 3) Adjusting clot ricci after use; How many tasks does the patient perform WITHOUT assistance of the helper? Three tasks with steadying assistance from the helper TOILETING - SCORE: 4-MIN BLADDER MANAGEMENT: BLADDER MANAGEMENT - STEP 1: Does the patient control the bladder completely and intentionally without equipment or devices or med ications, and is always continent? No. BLADDER MANAGEMENT - STEP 2: Does the patient require the assistance of a helper? No, patient requires and independently uses an a ssistive device, such as a urinal, bedpan, bedside commode, catheter, absorbent pad, or collecting de vice BLADDER MANAGEMENT - SCORE: 6-BRIT BOWEL MANAGEMENT: Activity did not occur on this shift BOWEL MANAGEMENT - SCORE: 7-IND TRANSFERS: BED, CHAIR, WHEELCHAIR: TRANSFERS: BED, CHAIR, WHEELCHAIR - STEP 1: Does the patient require assistance of a person or device, or need extra time with bed, chair, or whe elchair transfers? Yes. TRANSFERS: BED, CHAIR, WHEELCHAIR - STEP 2: Does the patient require the assistance of a helper? Yes. TRANSFERS: BED, CHAIR, WHEELCHAIR - STEP 3: How much assistance does the patient require from the helper? Steadying/guiding assistance TRANSFERS: BED, CHAIR, WHEELCHAIR - SCORE: 4-MIN TRANSFERS: TOILET: TRANSFERS: TOILET - STEP 1: Does the patient require the assistance of a person or device, or need extra time with toilet transfe rs? Yes. TRANSFERS: TOILET - STEP 2: Does the patient require the assistance of a helper? Yes. TRANSFERS: TOILET - STEP 3: How much assistance does the patient require from the helper? Patient performs half or more of the tr ansferring tasks TRANSFERS: TOILET - STEP 4: Does the patient need only incidental help such as contact guard or steadying during toilet transfer? Yes. TRANSFERS: TOILET - SCORE: 4-MIN TRANSFERS: SHOWER: Activity did not occur on this shift TRANSFERS: SHOWER - SCORE: 0-UNK TRANSFERS: TUB: Activity did not occur on this shift TRANSFERS: TUB - SCORE: 0-UNK LOCOMOTION: WALK: Activity did not occur on this shift LOCOMOTION: WALK - SCORE: 0-UNK LOCOMOTION: WHEELCHAIR: Activity did not occur on this shift LOCOMOTION: WHEELCHAIR - SCORE: 0-UNK COMPREHENSION: COMPREHENSION - SCORE: 0-UNK EXPRESSION EXPRESSION - SCORE: 0-UNK SOCIAL INTERACTION: SOCIAL INTERACTION - SCORE: 0-UNK PROBLEM SOLVING: PROBLEM SOLVING - SCORE: 0-UNK MEMORY: MEMORY - SCORE: 0-UNK SIGNATURE PANEL: The following modified sections: Eating - Score, Grooming - Score, Bathing - Score, Dressing - Upper Body - Score, Dressing - Lower Body - Score, Toileting - Score, Bladder Management - Score, Bladder M anagement - Score, Bowel Management - Score, Transfers: Bed, Chair, Wheelchair - Score, Transfers: To ilet - Score, Transfers: Shower - Score, Transfers: Tub - Score, Locomotion: Walk - Score, Locomotion : Wheelchair - Score, Comprehension - Score, Expression - Score, Social Interaction - Score, Problem Solving - Score, Memory - Score were [electronically] signed by Grant Munoz on SunApr 09 2019 14:21:3 6 GMT-0500 (Central Daylight Time)
--- NOTE | 2019-04-09 18:44 | R.PN ---
ENCOUNTER DATE AND TIME: 04/09/2019 18:43 (CDT) NAME ARAVIND LOW DATE OF : 1950 DATE OF ADMISSION: 03/31/2019 17:15 (CDT) Acute Right Cerebellar InfarctCHIEF COMPLAINT: Right cerebellar stroke SUBJECTIVE: Pt denied any Shortness of Breath. Pt denied any depression. He is making good progress with physical and occupational therapy. He is limited by mild to moderate cognitive deficits. Ambulated 500' with supervision using a rolling walker. VITAL SIGNS Temperature: 97.6 F SBP/DBP: 155/79 Pulse: 67 Resp: 15 MEDICATION ALLERGIES: No Known Drug Allergies (NKDA) ENVIRONMENTAL ALLERGIES: None Known - Substance Allergies None Known - Other Allergies None Known NURSING: - Shower allowing shower - Bladder care per protocol - Skin care per protocol PRECAUTIONS: - Weight Bearing Precaution WBAT left LE ACTIVITIES OOB only with supervision THERAPIES: - Occupational Therapy Cognitive Retraining. Visual Perceptual Training. - Dietary and Nutrition Adequate Nutrition. Nutritional Education. Nutritional Supplements. - Speech Therapy Cognitive Training. Expressive Language Skills. Memory Strategies. Receptive Language Skills. Speech Intelligibility Training. PHYSICAL EXAM - Gen Alert and awake Lying in bed No apparent distress Oriented to: person, time, and place - Skin No breakdown No abnormalities - Eyes No abnormalities - ENMT No abnormalities - Neck No abnormalities - CVS RRR - Chest No abnormalities - Resp Clear to auscultation - Abd Soft - GI Soft Deferred - No abnormalities - Ext No significant edema - MSK 4+/5 weakness in left upper and lower extremity - Neuro 4/5 strength left upper and lower extremities. - Psych No abnormalities ASSESSMENT: Pt. is a 68 yo Right-handed black male.On 03/27/2019 Pt. presented to [facility] with sudden onset of left-side weakness.On 03/27/2019 he was admitted to [facility] with diagnosis Acute Right Cerebellar Infarct.His impairment category is Stroke 01 - Left Bod y (Right Brain) (01.1).Pre-morbidly, Pt. was independent/mod-I in Self-Care, Sphincter Control, Trans fers Control, Locomotion, Communication, and Social Cognition; and he had good Sphincter Control.Curr ently, he has deficits of Self-Care, Transfers Control, Locomotion, Endurance, Balance, and Safety Aw areness.Pt. is now referred to [facility] for acute in-patient rehabilitation in order to maximize patient's functional independence in activities of daily living, strength, ROM, and mobility.- Rehab Goal Patient has realistic goal of being discharged at assistance level 6-Yarely to reside at Home with Fam saloni/Relatives. MDM/PLAN: - Physical Therapy Gait dysfunction - to improve, our physical therapists will perform initial evaluation of pt's statu s upon admission and devise an individualized program for Gait Training, and Wheel Chair mobility Inability to transfer - to improve, our physical therapists will perform initial evaluation of pt's status upon admission and devise an individualized program for Bed mobility Need for home safety evaluation - to improve, our physical therapists will perform initial evaluatio n of pt's status upon admission and devise an individualized program for Home Evaluation Need in caregiver upon discharge - to improve, our physical therapists will perform initial evaluati on of pt's status upon admission and devise an individualized program for Caregiver Training New precaution - to improve, our physical therapists will perform initial evaluation of pt's status upon admission and devise an individualized program for Patient precaution education Poor balance - to improve, our physical therapists will perform initial evaluation of pt's status up on admission and devise an individualized program for Balance Training Poor endurance - to improve, our physical therapists will perform initial evaluation of pt's status upon admission and devise an individualized program for Endurance Training Weakness - to improve, our physical therapists will perform initial evaluation of pt's status upon a dmission and devise an individualized program for Aquatic Therapy, Neuromuscular Reeducation, and Str engthening Edema - to improve, our physical therapists will perform initial evaluation of pt's status upon admi ssion and devise an individualized program for Elevation Training, and Lymphedema Therapy - Occupational Therapy ADL deficits - to improve, our occupation therapists will perform initial evaluation of pt's status upon admission and devise an individualized program for Bathing, Bed mobility, Community Reintegratio n, Cooking, Dressing, Eating, Fine Motor Skills, Grooming, Homemaking, Kitchen Mobility, Laundry, Pat ient Education, Safety Awareness, Splinting - Positioning, Transfers(Toilet, Tub, Shower), and Wheel Chair Management Need for healthcare business analyst - to improve, our occupation therapists will perform initial evaluation of pt's status upon admission and devise an individualized program for Caregiver Training Weakness - to improve, our occupation therapists will perform initial evaluation of pt's status upon admission and devise an individualized program for Aquatic Therapy, Balance, Endurance, UE ROM, and UE strengthening - Other See attached MAR (Medication Administration Record) Aravind Low.pdf See attached MAR (Medication Administration Record) - Bladder care per protocol - Weight Bearing Precaution WBAT left LE - Skin care per protocol - Diet - Solid Texture Continue Regular - Shower allowing shower for Dementia, TBI, Stroke, or others FUNCTIONAL STATUS: UPDATED AT WEEKLY TEAM CONFERENCE - Bladder Same accident frequency: 7-Ind - No accidents in the past 7 days - Bowel Same accident frequency: 7-Ind - No accidents in the past 7 days - Walking Same score based on distance walked: 3(>=150ft) - Wheelchair Same score based on distance traveled: 0(N/A) FUNCTIONAL STATUS: - Self-Care A. Eating sup B. Grooming sup C. Bathing sup D. Dressing - Upper sup E. Dressing - Lower sup F. Toileting Ankita - Sphincter Control G: Bladder control Ind H: Bowel control Ind - Transfers Control I. Bed/Chair/Wheelchair CGA J. Toilet CGA K. Tub/Shower ADNO - Locomotion L. Walk/Wheelchair (C) CGA L. Walk/Wheelchair (W) CGA M. Stairs ADNO - Communication N. Comprehension (B) Yarely O. Expression (B) Yarely - Social Cognition P. Social Interaction Yarely Q. Problem Solving Yarely R. Memory Yarely - Endurance Fair - Balance Fair - Safety Awareness Fair CURRENT FUNC. DEFICITS: Self-Care, Transfers Control, Locomotion, Endurance, Balance, and Safety Awareness SIGNATURE PANEL: (CDT)
[2019-04-09] MEDS: ATORVASTATIN 40 MG TAB PO SCH (19:07)
[2019-04-10 06:19] LABS: Absolute Lymphocytes (CBC) 1.1 K/uL (0.7-4.9); Basophils % 1.1 % (0-1.3); Hematocrit 34.1 % (39.6-49.0); MPV 8.5 fL (7.6-11.3); RBC Red Blood Cell Count 3.75 M/uL (4.33-5.43)
[2019-04-10 06:35] LABS: Albumin 3.2 g/dL (3.4-5.0); Magnesium 2.1 mg/dL (1.8-2.4); Potassium 4.2 mmol/L (3.5-5.1); Prealbumin 18.6 mg/dL (20-40)
[2019-04-10] MEDS: LACTULOSE 20 GM/30 ML UCUP PO SCH (07:25)
[2019-04-10] MEDS: ENOXAPARIN 30 MG/0.3 ML SQ SCH (07:26)
[2019-04-10] MEDS: HYDRALAZINE HCL 10 MG TABLET PO SCH ×3 (08:08→20:15)
[2019-04-10] MEDS: CLOPIDOGREL 75 MG TABLET PO SCH (08:08)
[2019-04-10] MEDS: ALLOPURINOL 100 MG TAB PO SCH (08:08)
[2019-04-10] MEDS: cloNIDine HCl 0.1 MG TAB PO SCH ×2 (08:08→20:14)
[2019-04-10] MEDS: AMLODIPINE 10 MG TAB PO SCH (08:08)
[2019-04-10] MEDS: PROMOD 30 ML DOSE PO SCH ×2 (08:08→20:15)
--- NOTE | 2019-04-10 11:39 | FAST ---
SHIFT START DATE/TIME: 04/10/2019 07:00 (CDT) SHIFT END DATE/TIME: 04/10/2019 19:00 (CDT) NAME JENNIFER BELLA DATE OF : 1950 DATE OF ADMISSION: 03/31/2019 17:15 (CDT) PHONE: AGE: 68 N# [id number] GENDER: Male ENCOUNTER PHYSICIAN: Dr. Hardik Hector M.D. ADMISSION DIAGNOSIS: - Stroke 01 - Left Body (Right Brain) (01.1) Acute Right Cerebellar Infarct. EATING: EATING - STEP 1: Does the patient require the assistance of a person or device, or need extra time when eating? Yes. EATING - STEP 2: Does the patient require the assistance of a helper? Yes. EATING - STEP 3: Does the patient perform half or more of the eating tasks? Yes. EATING - STEP 4: Does the patient need only supervision, cuing, coaxing OR help to apply an orthosis OR help to cut fo od, open containers, pour liquids, or butter bread? Yes. EATING - SCORE: 5-SUP GROOMING: Activity did not occur on this shift GROOMING - SCORE: 0-UNK BATHING: Activity did not occur on this shift BATHING - SCORE: 0-UNK DRESSING - UPPER BODY: Activity did not occur on this shift ARTICLES SCORE Total number of steps: 0 DRESSING - UPPER BODY - SCORE: 0-UNK DRESSING - LOWER BODY: Activity did not occur on this shift ARTICLES SCORE Total number of steps: 0 DRESSING - LOWER BODY - SCORE: 0-UNK TOILETING: TOILETING - STEP 1: Does the patient require the assistance of a person or device, or need extra time with toileting? Yes . TOILETING - STEP 2: Does the patient require the assistance of a helper? Yes. TOILETING - STEP 3: How much assistance does the patient require from the helper? Hands-on assistance from the helper TOILETING - STEP 4: Of the 3 tasks: 1) Adjusting clothing prior to use, 2) Cleansing of perineal area, 3) Adjusting clot ricci after use; How many tasks does the patient perform WITHOUT assistance of the helper? Two tasks TOILETING - SCORE: 3-MOD BLADDER MANAGEMENT: BLADDER MANAGEMENT - STEP 1: Does the patient control the bladder completely and intentionally without equipment or devices or med ications, and is always continent? No. BLADDER MANAGEMENT - STEP 2: Does the patient require the assistance of a helper? No, patient requires and independently uses an a ssistive device, such as a urinal, bedpan, bedside commode, catheter, absorbent pad, or collecting de vice BLADDER MANAGEMENT - SCORE: 6-BRIT BOWEL MANAGEMENT: Activity did not occur on this shift BOWEL MANAGEMENT - SCORE: 7-IND TRANSFERS: BED, CHAIR, WHEELCHAIR: TRANSFERS: BED, CHAIR, WHEELCHAIR - STEP 1: Does the patient require assistance of a person or device, or need extra time with bed, chair, or whe elchair transfers? Yes. TRANSFERS: BED, CHAIR, WHEELCHAIR - STEP 2: Does the patient require the assistance of a helper? Yes. TRANSFERS: BED, CHAIR, WHEELCHAIR - STEP 3: How much assistance does the patient require from the helper? Steadying/guiding assistance TRANSFERS: BED, CHAIR, WHEELCHAIR - SCORE: 4-MIN TRANSFERS: TOILET: TRANSFERS: TOILET - STEP 1: Does the patient require the assistance of a person or device, or need extra time with toilet transfe rs? Yes. TRANSFERS: TOILET - STEP 2: Does the patient require the assistance of a helper? Yes. TRANSFERS: TOILET - STEP 3: How much assistance does the patient require from the helper? Patient performs half or more of the tr ansferring tasks TRANSFERS: TOILET - STEP 4: Does the patient need only incidental help such as contact guard or steadying during toilet transfer? Yes. TRANSFERS: TOILET - SCORE: 4-MIN TRANSFERS: SHOWER: Activity did not occur on this shift TRANSFERS: SHOWER - SCORE: 0-UNK TRANSFERS: TUB: Activity did not occur on this shift TRANSFERS: TUB - SCORE: 0-UNK LOCOMOTION: WALK: Activity did not occur on this shift LOCOMOTION: WALK - SCORE: 0-UNK LOCOMOTION: WHEELCHAIR: Activity did not occur on this shift LOCOMOTION: WHEELCHAIR - SCORE: 0-UNK COMPREHENSION: COMPREHENSION - SCORE: 0-UNK EXPRESSION EXPRESSION - SCORE: 0-UNK SOCIAL INTERACTION: SOCIAL INTERACTION - SCORE: 0-UNK PROBLEM SOLVING: PROBLEM SOLVING - SCORE: 0-UNK MEMORY: MEMORY - SCORE: 0-UNK SIGNATURE PANEL: The following modified sections: Eating - Score, Grooming - Score, Bathing - Score, Dressing - Upper Body - Score, Dressing - Lower Body - Score, Toileting - Score, Bladder Management - Score, Bowel Man agement - Score, Transfers: Bed, Chair, Wheelchair - Score, Transfers: Toilet - Score, Transfers: Dayami wer - Score, Transfers: Tub - Score, Locomotion: Walk - Score, Locomotion: Wheelchair - Score, Compre hension - Score, Expression - Score, Social Interaction - Score, Problem Solving - Score, Memory - Sc ore were [electronically] signed by Grant Munoz on Ursula Apr 10 2019 11:38:31 GMT-0500 (Central Daylight Time)
--- NOTE | 2019-04-10 15:11 | FAST ---
ENCOUNTER DATE AND TIME: 04/09/2019 08:00 (CDT) NAME JENNIFER BELLA DATE OF : 1950 DATE OF ADMISSION: 03/31/2019 17:15 (CDT) PHONE: AGE: 68 N# [id number] GENDER: Male ENCOUNTER PHYSICIAN: Dr. Hardik Hector M.D. ADMISSION DIAGNOSIS: - Stroke 01 - Left Body (Right Brain) (01.1) Acute Right Cerebellar Infarct. EATING: Activity did not occur on this shift EATING - SCORE: 0-UNK GROOMING: Activity did not occur on this shift GROOMING - SCORE: 0-UNK BATHING: Activity did not occur on this shift BATHING - SCORE: 0-UNK DRESSING - UPPER BODY: Activity did not occur on this shift Patient is not dressing in public clothing ARTICLES SCORE Total number of steps: 0 DRESSING - UPPER BODY - SCORE: 0-UNK DRESSING - LOWER BODY: Activity did not occur on this shift Patient is not dressing in public clothing ARTICLES SCORE Total number of steps: 0 DRESSING - LOWER BODY - SCORE: 0-UNK TOILETING: Activity did not occur on this shift TOILETING - SCORE: 0-UNK BLADDER MANAGEMENT: Activity did not occur on this shift BLADDER MANAGEMENT - SCORE: 7-IND BOWEL MANAGEMENT: Activity did not occur on this shift BOWEL MANAGEMENT - SCORE: 7-IND TRANSFERS: BED, CHAIR, WHEELCHAIR: TRANSFERS: BED, CHAIR, WHEELCHAIR - STEP 1: Does the patient require assistance of a person or device, or need extra time with bed, chair, or whe elchair transfers? Yes. TRANSFERS: BED, CHAIR, WHEELCHAIR - STEP 2: Does the patient require the assistance of a helper? Yes. TRANSFERS: BED, CHAIR, WHEELCHAIR - STEP 3: How much assistance does the patient require from the helper? Only supervision TRANSFERS: BED, CHAIR, WHEELCHAIR - SCORE: 5-SUP TRANSFERS: TOILET: Activity did not occur on this shift TRANSFERS: TOILET - SCORE: 0-UNK TRANSFERS: SHOWER: Activity did not occur on this shift TRANSFERS: SHOWER - SCORE: 0-UNK TRANSFERS: TUB: Activity did not occur on this shift TRANSFERS: TUB - SCORE: 0-UNK LOCOMOTION: WALK: LOCOMOTION: WALK - STEP 1: Does the patient need help from a person or device, or need extra time to walk 150 feet? Yes. LOCOMOTION: WALK - STEP 2: How much assistance does the patient require to walk a minimum of 150 feet? Only incidental help such as contact guarding or steadying LOCOMOTION: WALK - SCORE: 4-MIN LOCOMOTION: WHEELCHAIR: LOCOMOTION: WHEELCHAIR - STEP 1: Does the patient need help to go 150 feet in a wheelchair? Yes. LOCOMOTION: WHEELCHAIR - STEP 2: How much assistance does the patient need from the helper? Only supervision, cuing, or coaxing LOCOMOTION: WHEELCHAIR - SCORE: 5-SUP LOCOMOTION: STAIRS: LOCOMOTION: STAIRS - STEP 1: Does the patient need help to go up and down 12 to 14 stairs? Yes. LOCOMOTION: STAIRS - STEP 2: How much assistance does the patient need from the helper to go a minimum of 12 to 14 stairs? Only talbot pervision, cuing, or coaxing LOCOMOTION: STAIRS - SCORE: 5-SUP COMPREHENSION: COMPREHENSION - SCORE: 0-UNK EXPRESSION EXPRESSION - SCORE: 0-UNK SOCIAL INTERACTION: SOCIAL INTERACTION - SCORE: 0-UNK PROBLEM SOLVING: PROBLEM SOLVING - SCORE: 0-UNK MEMORY: MEMORY - SCORE: 0-UNK SIGNATURE PANEL: The following modified sections: Transfers: Bed, Chair, Wheelchair - Score, Transfers: Toilet - Score , Locomotion: Walk - Score, Locomotion: Wheelchair - Score, Locomotion: Stairs - Score were [julian stuart] signed by Demarcus Barger PTA on SunApr 10 2019 15:10:41 GMT-0500 (Central Daylight Time)
--- NOTE | 2019-04-10 15:19 | FAST ---
ENCOUNTER DATE AND TIME: 04/10/2019 08:00 (CDT) NAME JENNIFER BELLA DATE OF : 1950 DATE OF ADMISSION: 03/31/2019 17:15 (CDT) PHONE: AGE: 68 N# [id number] GENDER: Male ENCOUNTER PHYSICIAN: Dr. Hardik Hector M.D. ADMISSION DIAGNOSIS: - Stroke 01 - Left Body (Right Brain) (01.1) Acute Right Cerebellar Infarct. EATING: Activity did not occur on this shift EATING - SCORE: 0-UNK GROOMING: Oral care Patient applied make-up Wash, rinse, and dry face Wash, rinse, and dry hands GROOMING - STEP 1: Does the patient require the assistance of a person or device, or need extra time when grooming? Yes. GROOMING - STEP 2: Does the patient require the assistance of a helper? Yes. GROOMING - STEP 3: How much assistance does the patient require from the helper? Cuing, coaxing, instructions, or encour agement for completion of grooming GROOMING - SCORE: 5-SUP BATHING: Abdomen Buttocks Chest Left arm Left lower leg and foot Left upper leg Perineal area Right arm Right lower leg and foot Right upper leg BATHING - STEP 1: Does the patient require the assistance of a person or device, or need extra time when bathing? Yes. BATHING - STEP 2: Does the patient require the assistance of a helper? No. The patient only requires an assistive devic e such as a bath jeannie, OR the patient takes more than reasonable time to bathe, OR there is a concern for safety such as regulating water temperature as the patient bathes. BATHING - SCORE: 6-BRIT DRESSING - UPPER BODY: T-shirt/pullover shirt (four steps) ARTICLES SCORE Total number of steps: 4 DRESSING - UPPER BODY - STEP 1: Does the patient require help from a person or device, or need extra time when dressing above the sorin st? No. DRESSING - UPPER BODY - SCORE: 7-IND DRESSING - LOWER BODY: ARTICLES SCORE Total number of steps: 0 DRESSING - LOWER BODY - STEP 1: Does the patient require help from a person or device, or need extra time when dressing below the sorin st? Yes. DRESSING - LOWER BODY - STEP 2: Does the patient require the assistance of a helper? No. Patient requires an assistive device such as a livestock farmworker. OR s/he takes more than reasonable time as s/he dresses the lower body, OR there is a con cern for safety when s/he dresses the lower body DRESSING - LOWER BODY - SCORE: 6-BRIT TOILETING: TOILETING - STEP 1: Does the patient require the assistance of a person or device, or need extra time with toileting? Yes . TOILETING - STEP 2: Does the patient require the assistance of a helper? No. TOILETING - SCORE: 6-BRIT BLADDER MANAGEMENT: Activity did not occur on this shift BLADDER MANAGEMENT - SCORE: 7-IND BOWEL MANAGEMENT: Activity did not occur on this shift BOWEL MANAGEMENT - SCORE: 7-IND TRANSFERS: BED, CHAIR, WHEELCHAIR: Activity did not occur on this shift TRANSFERS: BED, CHAIR, WHEELCHAIR - SCORE: 0-UNK TRANSFERS: TOILET: TRANSFERS: TOILET - STEP 1: Does the patient require the assistance of a person or device, or need extra time with toilet transfe rs? Yes. TRANSFERS: TOILET - STEP 2: Does the patient require the assistance of a helper? No. Patient only requires an assistive device talbot ch as a grab bar or special seat, OR s/he takes more than reasonable time to perform toilet transfers , OR there is a safety concern when s/he performs toilet transfers. TRANSFERS: TOILET - SCORE: 6-BRIT TRANSFERS: SHOWER: Activity did not occur on this shift TRANSFERS: SHOWER - SCORE: 0-UNK TRANSFERS: TUB: TRANSFERS: TUB - STEP 1: Does the patient require the assistance of a person or device, or need extra time with tub transfers? Yes. TRANSFERS: TUB - STEP 2: Does the patient require the assistance of a helper? No. Only requires the assistance of an assistive device, OR takes more than reasonable time, OR there is a concern for safety when s/he performs tub transfers TRANSFERS: TUB - SCORE: 6-BRIT LOCOMOTION: WALK: Activity did not occur on this shift LOCOMOTION: WALK - SCORE: 0-UNK LOCOMOTION: WHEELCHAIR: Activity did not occur on this shift LOCOMOTION: WHEELCHAIR - SCORE: 0-UNK LOCOMOTION: STAIRS: Activity did not occur on this shift LOCOMOTION: STAIRS - SCORE: 0-UNK COMPREHENSION: COMPREHENSION: TYPE: Visual COMPREHENSION - STEP 1: Does the patient require help from a person or device, or need extra time to understand complex and a bstract ideas (such as current events, finances, discharge planning, medical issues, relationships, e tc)? Yes. COMPREHENSION - STEP 2: Does the patient require help to understand questions or statements about basic needs or ideas (such as hunger, thirst, sleep, safety, daily schedule, room location, or discomfort) half or more of the t nichelle? No. COMPREHENSION - STEP 3: How often does the patient need help to understand directions and conversation about basic needs? Les s than 10% of the time COMPREHENSION - SCORE: 5-SUP EXPRESSION EXPRESSION: TYPE: Non-Vocal EXPRESSION - STEP 1: Does the patient require help from a person or device, or need extra time expressing complex and abst ract ideas (such as current events, finances, discharge planning, medical issues, relationships, etc) ? Yes. EXPRESSION - STEP 2: Does the patient require help to express basic necessities or ideas (such as hunger, thirst, sleep, s afety, daily schedule, room location, or discomfort) half or more of the time? No. EXPRESSION - STEP 3: How often does the patient need help to express directions and conversation about basic needs? Less t arzate 10% of the time EXPRESSION - SCORE: 5-SUP SOCIAL INTERACTION: SOCIAL INTERACTION - STEP 1: Does the patient require a helper to interact with others in social and therapeutic situations? No. SOCIAL INTERACTION - STEP 2: Does the patient need extra time in social situations, OR does s/he interact with staff, other patien ts, and family members ONLY in structured environments, OR does s/he require medication for social in teraction? Yes, patient needs extra time SOCIAL INTERACTION - SCORE: 6-BRIT PROBLEM SOLVING: PROBLEM SOLVING - STEP 1: Does the patient need help from a person or device, or need extra time to solve complex problems such as managing a checking account or confronting interpersonal problems? Yes. PROBLEM SOLVING - STEP 2: Does the patient solve basic routine problems half or more of the time? Yes. PROBLEM SOLVING - STEP 3: How often does the patient need help to solve basic routine problems? Less than 10% of the time PROBLEM SOLVING - SCORE: 5-SUP MEMORY: MEMORY - STEP 1: Does the patient need help from a person or device, or need extra time to remember frequently encount ered people, daily routines, and executing requests? Yes. MEMORY - STEP 2: How often does the patient need help to remember frequently encountered people, daily routines, and e xecuting requests? Less than 10% of the time MEMORY - SCORE: 5-SUP SIGNATURE PANEL: The following modified sections: Eating - Score, Grooming - Score, Bathing - Score, Dressing - Upper Body - Score, Dressing - Upper Body - Score, Dressing - Lower Body - Score, Toileting - Score, Transf ers: Bed, Chair, Wheelchair - Score, Transfers: Toilet - Score, Transfers: Shower - Score, Transfers: Tub - Score, Comprehension - Score, Expression - Score, Social Interaction - Score, Problem Solving - Score, Memory - Score were [electronically] signed by MELBA Patten on SunApr 10 2019 15 :18:53 T-0500 (Central Daylight Time)
--- NOTE | 2019-04-10 18:34 | R.PN ---
ENCOUNTER DATE AND TIME: 04/10/2019 18:33 (CDT) NAME ARAVIND LOW DATE OF : 1950 DATE OF ADMISSION: 03/31/2019 17:15 (CDT) Acute Right Cerebellar InfarctCHIEF COMPLAINT: Right cerebellar stroke SUBJECTIVE: Pt denied any Shortness of Breath. Pt denied any depression. He is making good progress with physical and occupational therapy. He is limited by mild to moderate cognitive deficits. Ambulated 500' with supervision using a rolling walker. VITAL SIGNS Temperature: 97.6 F SBP/DBP: 160/84 Pulse: 63 Resp: 16 MEDICATION ALLERGIES: No Known Drug Allergies (NKDA) ENVIRONMENTAL ALLERGIES: None Known - Substance Allergies None Known - Other Allergies None Known NURSING: - Shower allowing shower - Bladder care per protocol - Skin care per protocol PRECAUTIONS: - Weight Bearing Precaution WBAT left LE ACTIVITIES OOB only with supervision THERAPIES: - Occupational Therapy Cognitive Retraining. Visual Perceptual Training. - Dietary and Nutrition Adequate Nutrition. Nutritional Education. Nutritional Supplements. - Speech Therapy Cognitive Training. Expressive Language Skills. Memory Strategies. Receptive Language Skills. Speech Intelligibility Training. PHYSICAL EXAM - Gen Alert and awake Lying in bed No apparent distress Oriented to: person, time, and place - Skin No breakdown No abnormalities - Eyes No abnormalities - ENMT No abnormalities - Neck No abnormalities - CVS RRR - Chest No abnormalities - Resp Clear to auscultation - Abd Soft - GI Soft Deferred - No abnormalities - Ext No significant edema - MSK 4+/5 weakness in left upper and lower extremity - Neuro 4/5 strength left upper and lower extremities. - Psych No abnormalities ASSESSMENT: Pt. is a 68 yo Right-handed black male.On 03/27/2019 Pt. presented to [facility] with sudden onset of left-side weakness.On 03/27/2019 he was admitted to [facility] with diagnosis Acute Right Cerebellar Infarct.His impairment category is Stroke 01 - Left Bod y (Right Brain) (01.1).Pre-morbidly, Pt. was independent/mod-I in Self-Care, Sphincter Control, Trans fers Control, Locomotion, Communication, and Social Cognition; and he had good Sphincter Control.Curr ently, he has deficits of Self-Care, Transfers Control, Locomotion, Endurance, Balance, and Safety Aw areness.Pt. is now referred to [facility] for acute in-patient rehabilitation in order to maximize patient's functional independence in activities of daily living, strength, ROM, and mobility.- Rehab Goal Patient has realistic goal of being discharged at assistance level 6-Yarely to reside at Home with Fam saloni/Relatives. MDM/PLAN: - Physical Therapy Gait dysfunction - to improve, our physical therapists will perform initial evaluation of pt's statu s upon admission and devise an individualized program for Gait Training, and Wheel Chair mobility Inability to transfer - to improve, our physical therapists will perform initial evaluation of pt's status upon admission and devise an individualized program for Bed mobility Need for home safety evaluation - to improve, our physical therapists will perform initial evaluatio n of pt's status upon admission and devise an individualized program for Home Evaluation Need in caregiver upon discharge - to improve, our physical therapists will perform initial evaluati on of pt's status upon admission and devise an individualized program for Caregiver Training New precaution - to improve, our physical therapists will perform initial evaluation of pt's status upon admission and devise an individualized program for Patient precaution education Poor balance - to improve, our physical therapists will perform initial evaluation of pt's status up on admission and devise an individualized program for Balance Training Poor endurance - to improve, our physical therapists will perform initial evaluation of pt's status upon admission and devise an individualized program for Endurance Training Weakness - to improve, our physical therapists will perform initial evaluation of pt's status upon a dmission and devise an individualized program for Aquatic Therapy, Neuromuscular Reeducation, and Str engthening Edema - to improve, our physical therapists will perform initial evaluation of pt's status upon admi ssion and devise an individualized program for Elevation Training, and Lymphedema Therapy - Occupational Therapy ADL deficits - to improve, our occupation therapists will perform initial evaluation of pt's status upon admission and devise an individualized program for Bathing, Bed mobility, Community Reintegratio n, Cooking, Dressing, Eating, Fine Motor Skills, Grooming, Homemaking, Kitchen Mobility, Laundry, Pat ient Education, Safety Awareness, Splinting - Positioning, Transfers(Toilet, Tub, Shower), and Wheel Chair Management Need for housekeeper caregiver - to improve, our occupation therapists will perform initial evaluation of pt's status upon admission and devise an individualized program for Caregiver Training Weakness - to improve, our occupation therapists will perform initial evaluation of pt's status upon admission and devise an individualized program for Aquatic Therapy, Balance, Endurance, UE ROM, and UE strengthening - Other See attached MAR (Medication Administration Record) Aravind Low.pdf See attached MAR (Medication Administration Record) - Bladder care per protocol - Weight Bearing Precaution WBAT left LE - Skin care per protocol - Diet - Solid Texture Continue Regular - Shower allowing shower for Dementia, TBI, Stroke, or others FUNCTIONAL STATUS: UPDATED AT WEEKLY TEAM CONFERENCE - Bladder Same accident frequency: 7-Ind - No accidents in the past 7 days - Bowel Same accident frequency: 7-Ind - No accidents in the past 7 days - Walking Same score based on distance walked: 3(>=150ft) - Wheelchair Same score based on distance traveled: 0(N/A) FUNCTIONAL STATUS: - Self-Care A. Eating sup B. Grooming sup C. Bathing sup D. Dressing - Upper sup E. Dressing - Lower sup F. Toileting Ankita - Sphincter Control G: Bladder control Ind H: Bowel control Ind - Transfers Control I. Bed/Chair/Wheelchair CGA J. Toilet CGA K. Tub/Shower ADNO - Locomotion L. Walk/Wheelchair (C) CGA L. Walk/Wheelchair (W) CGA M. Stairs ADNO - Communication N. Comprehension (B) Yarely O. Expression (B) Yarely - Social Cognition P. Social Interaction Yarely Q. Problem Solving Yarely R. Memory Yarely - Endurance Fair - Balance Fair - Safety Awareness Fair CURRENT FUNC. DEFICITS: Self-Care, Transfers Control, Locomotion, Endurance, Balance, and Safety Awareness SIGNATURE PANEL: (CDT)
[2019-04-10] MEDS: ATORVASTATIN 40 MG TAB PO SCH (20:14)
[2019-04-11 06:43] VITALS: BP 150/77; TEMP 98.5
[2019-04-11] MEDS: ENOXAPARIN 30 MG/0.3 ML SQ SCH (07:00)
[2019-04-11] MEDS: CLOPIDOGREL 75 MG TABLET PO SCH (07:02)
[2019-04-11] MEDS: AMLODIPINE 10 MG TAB PO SCH (07:02)
[2019-04-11] MEDS: HYDRALAZINE HCL 10 MG TABLET PO SCH (07:02)
[2019-04-11] MEDS: cloNIDine HCl 0.1 MG TAB PO SCH (07:02)
[2019-04-11] MEDS: PROMOD 30 ML DOSE PO SCH (07:03)
[2019-04-11] MEDS: ALLOPURINOL 100 MG TAB PO SCH (07:03)
--- NOTE | 2019-04-11 09:30 | P.RH.PN ---
Estimated Length of Stay: 12 Expected Discharge Date: 04/11/19 Discharge Disposition Plan: Home Family Support: Yes Jail Goal: Mobility, Transfers, Self Care Vital Signs: Last Vital Signs Temp 98.5 F 04/11/19 06:42 Pulse 65 04/11/19 07:02 Resp 16 04/11/19 06:42 BP 150/77 H 04/11/19 07:02 Pulse Ox 98 04/11/19 06:42 Laboratory: Laboratory Last Values WBC 3.7 K/uL (4.3-10.9) L 04/10/19 05:43 RBC 3.75 M/uL (4.33-5.43) L 04/10/19 05:43 Hgb 11.6 g/dL (13.6-17.9) L 04/10/19 05:43 Hct 34.1 % (39.6-49.0) L 04/10/19 05:43 MCV 91.0 fL (80-100) 04/10/19 05:43 MCH 31.0 pg (27.0-35.0) 04/10/19 05:43 MCHC 34.1 g/dL (32.0-36.0) 04/10/19 05:43 RDW 14.5 % (12.1-15.2) 04/10/19 05:43 Plt Count 198 K/uL (152-406) 04/10/19 05:43 MPV 8.5 fL (7.6-11.3) 04/10/19 05:43 Neutrophils % 54.8 % (41.7-73.7) 04/10/19 05:43 Lymphocytes % 30.0 % (15.3-44.8) 04/10/19 05:43 Monocytes % 12.3 % (3.3-12.3) 04/10/19 05:43 Eosinophils % 1.8 % (0-4.4) 04/10/19 05:43 Basophils % 1.1 % (0-1.3) 04/10/19 05:43 Absolute Neutrophils 2.0 K/uL (1.8-8.0) 04/10/19 05:43 Absolute Lymphocytes 1.1 K/uL (0.7-4.9) 04/10/19 05:43 Absolute Monocytes 0.5 K/uL (0.1-1.3) 04/10/19 05:43 Absolute Eosinophils 0.1 K/uL (0-0.5) 04/10/19 05:43 Absolute Basophils 0.0 K/uL (0-0.5) 04/10/19 05:43 Sodium 142 mmol/L (136-145) 04/10/19 05:43 Potassium 4.2 mmol/L (3.5-5.1) 04/10/19 05:43 Chloride 110 mmol/L (98-107) H 04/10/19 05:43 Carbon Dioxide 24 mmol/L (21-32) 04/10/19 05:43 BUN 34 mg/dL (7-18) H 04/10/19 05:43 Creatinine 2.98 mg/dL (0.55-1.3) H 04/10/19 05:43 Estimated GFR 26 mL/min (=/>90) L 04/10/19 05:43 Glucose 78 mg/dL (74-106) 04/10/19 05:43 Calcium 9.3 mg/dL (8.5-10.1) 04/10/19 05:43 Magnesium 2.1 mg/dL (1.8-2.4) 04/10/19 05:43 Albumin 3.2 g/dL (3.4-5.0) L 04/10/19 05:43 Prealbumin 18.6 mg/dL (20-40) L 04/10/19 05:43 Urine Color Yellow 03/31/19 17:30 Urine Appearance Clear 03/31/19 17:30 Urine pH 5.5 (5.0-7.0) 03/31/19 17:30 Ur Specific [place] 1.010 (1.005-1.030) 03/31/19 17:30 Urine Ketones Negative (NEG) 03/31/19 17:30 Urine Blood Negative (NEG) 03/31/19 17:30 Urine Nitrite Negative (NEG) 03/31/19 17:30 Urine Bilirubin Negative (NEG) 03/31/19 17:30 Urine Urobilinogen 0.2 mg/dL (0.2-1.0) 03/31/19 17:30 Ur Leukocyte Esterase Negative (NEG) 03/31/19 17:30 Urine RBC <5 /HPF (NONE SEEN) 03/31/19 17:30 Urine WBC <5 /HPF (<5) 03/31/19 17:30 Ur Squamous Epith Cells <5 /HPF (NONE SEEN) 03/31/19 17:30 Urine Bacteria None seen /HPF (NONE SEEN) 03/31/19 17:30 Urine Culture Reflexed Not needed 03/31/19 17:30 Urine Glucose Negative (NEG) 03/31/19 17:30 Urine Total Protein Negative (NEG) 03/31/19 17:30 Weight: 129 lb 9.6 oz Wound Present: No Closed Surgical Incision Present: No Negative Pressure Wound Therapy Present: No Physician Update: Labs reviewed. He has chronic renal insufficiency and must follow up with nephrology after discharge. His mildly low Hgb is likely secondary to ranal failure. He is modified independent with cane but he is unsafe using the wheelchair due to poor memory and inpulsivity. Medical Issues: DVT prophylaxis - Enoxaparin 30mg SQ Daily Functional Improvement: Patient has met all short-term and long-term goals, w/ the exception of a car transfer. PT indicated that patient was Mod I w/ transfers and gait tx. during their session today. Functional Improvement Occupational Therapy: Pt can benifit with further therapy to address pt's safety awareness with increasing pt's cognitive status with clothing, transfers and coordination when completing certain tasks. Pt does require extra time for bathing/UB/LB dressing. Cont to increase pt's static standing balance and endurance for adl tasks. Cont with the POC and the goals by the supervising OTR, recommend 24hr supervision due to pt's impulsiveness and safety. Speech Therapy Update: Patient has made significant progress in speech therapy, but he continues to present with decreased safety awareness and impulsivity. He has a bed alarm because he tries to transfer from bed to chair multiple times a day without notifying a nurse or using the call-light. Patient is at MIN A for auditory comprehension, he requires repeated instruction and extra time for processing. Patient is at MIN A for verbal expression, but this is likely his baseline. Patient is at SUPV to MOD I for social interaction, MOD A for problem solving, and MOD A for Memory. Patient is eager to participate in therapy, but exhibits difficulty with carryover outside of therapy session. He requires close supervision to ensure safety and reduce risk for falls/injuries. 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 Please see the Rehabilitation Signature page for all necessary signatures.
[2019-04-11] MEDS: LACTULOSE 20 GM/30 ML UCUP PO SCH (11:19)
== END 2019-04-11 13:10 | disposition home health service (06) | DRG 57 ==
LOC: 5TH 03-31 17:15
PROVIDERS: ADMIT Psychiatry & Neurology Neurology with Special Qualifications in Child Neurology; ATTEND Psychiatry & Neurology Neurology with Special Qualifications in Child Neurology
DX: I69.354 Hemiplegia and hemiparesis following cerebral infarction affecting left non-dominant side (principal); N18.4 Chronic kidney disease, stage 4 (severe); I12.9 Hypertensive chronic kidney disease with stage 1 through stage 4 chronic kidney disease, or unspecified chronic kidney disease; M10.9 Gout, unspecified; B35.1 Tinea unguium; Z28.21 Immunization not carried out because of patient refusal
CPT/HCPCS: 36415; 80048; 81001; 82040; 83735; 84134; 85025; 92523; 97110; 97112; 97116; 97127; 97161; 97530; J1650

== ENCOUNTER 2019-05-08 12:48 | Inpatient (IN) | payer OTHER ==
[2019-05-08 13:29] LABS: Absolute Lymphocytes (CBC) 1.2 K/uL (0.7-4.9); Hematocrit 42.3 % (39.6-49.0); Lymphocytes % 22.2 % (15.3-44.8); MPV 8.5 fL (7.6-11.3); RBC Red Blood Cell Count 4.59 M/uL (4.33-5.43)
[2019-05-08] MEDS ORDERED: METOPROLOL TARTRATE 5 MG/5 ML INJ IV ONE (13:47)
[2019-05-08 13:54] LABS: Bilirubin Direct 0.1 mg/dL (0-0.2); Bilirubin Total 0.5 mg/dL (0.2-1.0); Magnesium 2.2 mg/dL (1.8-2.4); Potassium 3.7 mmol/L (3.5-5.1); Protein, Total 8.6 g/dL (6.4-8.2); Troponin (Emerg Dept Use Only) 0.06 ng/mL (0.0-0.045)
--- NOTE | 2019-05-08 13:59 | RAD REPORT ---
EXAM DESCRIPTION: RAD - Chest Single View - 05/08/2019 1:42 pm CLINICAL HISTORY: Hypertension, shortness of breath COMPARISON: March 27, 2019 portable imaging TECHNIQUE: AP portable chest image was obtained 1328 hours . FINDINGS: Lungs are clear. Heart and vasculature are normal. No measurable pleural effusion and no p neumothorax. No acute bony abnormality seen. No acute aortic findings. Vascular stent is again noted in the upper right chest. IMPRESSION: No acute cardiopulmonary process. No significant change from comparison.
--- NOTE | 2019-05-08 15:37 | ER ---
Nurse's Notes [facility] Name: Aravind Low Age: 68 yrs Sex: Male : 1950 Arrival Date: 05/08/2019 Time: 12:50 Bed 2 Private MD: Diagnosis: Hypertensive heart disease-Urgency Presentation: 05/08 12:50 Presenting complaint: EMS states: Pt hx of recent CVA, visited by home health nurse ph today and found to be hypertensive at 240/125, pt reports that he took his BP meds this morning, denies dizziness, headache, blurred vision or pain, HR also elevated at 104-110, BGL 100. Transition of care: patient was not received from another setting of care. Onset of symptoms was May 08, 2019. Risk Assessment: Do you want to hurt yourself or someone else? Patient reports no desire to harm self or others. Initial Sepsis Screen: Does the patient meet any 2 criteria? No. Patient's initial sepsis screen is negative. Does the patient have a suspected source of infection? No. Patient's initial sepsis screen is negative. Care prior to arrival: None. 12:50 Method Of Arrival: EMS: [facility] 13:21 Acuity: ANTONIO 2 ph Historical: - Allergies: 13:05 No Known Allergies; ph - Home Meds: 12:59 allopurinol 100 mg Oral tab 1 tab 2 times per day [Active]; clonidine HCl 0.3 mg Oral ph tab 1 tab 2 times per day [Active]; Vitamin D Oral [Active]; Lactulose Oral [Active]; Hydralazine Oral [Active]; amlodipine oral [Active]; atorvastatin oral oral [Active]; clopidogrel oral oral [Active]; - PMHx: 12:59 Gout; Hypertension; CVA; ESRD; ph - PSHx: 12:59 left kidney removed; ph - Immunization history:: Adult Immunizations unknown. - Social history:: Smoking status: Patient uses tobacco products, denies chronic smoking, but will smoke occasionally. - Ebola Screening: : No symptoms or risks identified at this time. Screenin:04 Abuse screen: Denies threats or abuse. Denies injuries from another. Nutritional ph screening: No deficits noted. Tuberculosis screening: No symptoms or risk factors identified. Fall Risk None identified. Assessment: 13:21 General: Appears in no apparent distress. comfortable, unkempt, Behavior is calm, ph cooperative, appropriate for age, quiet, Denies fever. Pain: Denies pain. Neuro: Level of Consciousness is awake, alert, obeys commands, Oriented to person, place, time, situation. Cardiovascular: Capillary refill < 3 seconds in bilateral fingers Patient's skin is warm and dry. Cardiovascular: Denies chest pain, lightheadedness, palpitations, shortness of breath, Rhythm is sinus rhythm. Respiratory: Airway is patent Respiratory effort is even, unlabored, Respiratory pattern is regular, symmetrical. Derm: Skin is intact, Skin is pink, warm \\T\\ dry. Musculoskeletal: Circulation, motion, and sensation intact. Range of motion: intact in all extremities. 13:50 Reassessment: pt at nurses station. reports " they changed his blood pressure sg medication after he was discharged from upstairs here. I think its not working, because it dont be this high when hes up in the hospital in [place]. That medicine they gave him while he was up in [place] keeps his blood pressure low, but they changed it to something different when he was here and it just stays high.He also had one of his kidneys removed so they got to be extra careful with what medication they give him.". 15:00 Reassessment: Patient appears in no apparent distress at this time. Patient and/or ph family updated on plan of care and expected duration. Pain level reassessed. Patient is alert, oriented x 3, equal unlabored respirations, skin warm/dry/pink. BP remains elevated after IV meds, ERP aware see MAR. 18:30 Reassessment: Patient appears in no apparent distress at this time. Patient and/or sg family updated on plan of care and expected duration. Pain level reassessed. pt VS of BP 230/120 at this time with a HR of 130 bpm, cardene paused at this time, Abdullahi RAHMAN notified and orders received for labetalol 20 mg IVPx1 and continue the cardene drip at 2.5 mg/hr. see EMAR. Vital Signs: 13:03 BP 220 / 141; Pulse 94; Resp 18; Pulse Ox 100% on R/A; Weight 65.77 kg; ph 15:20 BP 227 / 137; Pulse 75; Resp 16; Pulse Ox 98% on R/A; iw 16:32 BP 199 / 103; Pulse 76; Resp 18; Pulse Ox 99% on R/A; ph 17:04 BP 179 / 107; Pulse 76; Resp 16; Pulse Ox 99% on R/A; ph 17:39 BP 176 / 94; Pulse 88; Resp 16; Pulse Ox 98% on R/A; sg 18:50 BP 177 / 92; Pulse 92; Resp 18; Temp 97.4; Pulse Ox 99% on R/A; Pain 0/10; sg ED Course: 12:50 Patient arrived in ED. ph 12:58 Bijan Graves MD is Attending Physician. kdr 13:04 Arm band placed on Patient placed in an exam room, on a stretcher, on color television console monitor, ph on pulse oximetry. 13:04 Patient has correct armband on for positive identification. Placed in gown. Bed in low ph position. Call light in reach. Side rails up X2. shelter monitor on. Pulse ox on. NIBP on. Door closed. Noise minimized. Warm blanket given. Head of bed elevated. 13:19 Initial lab(s) drawn, by me, sent to lab. Missed attempt(s): 20 gauge in right ph antecubital area. Bleeding controlled, band aid applied, catheter tip intact. Inserted saline lock: 22 gauge in left Blood collected. 13:21 Triage completed. ph 13:24 Coral Jameson, RN is Primary Nurse. iw 13:38 EKG done, by certified ophthalmic medical technician. reviewed by Bijan Graves MD. sm3 13:42 XRAY Chest (1 view) In Process Unspecified. EDMS 15:36 Miguel [place] DO is Hospitalizing Provider. kdr 16:22 Maria Victoria Marley, RN is Primary Nurse. ph 18:30 No provider procedures requiring assistance completed. Patient admitted, IV remains in sg place. intact, No redness/swelling at site. Administered Medications: 14:23 Drug: Lopressor 5 mg Route: IVP; Site: left antecubital; ph 14:36 Drug: Lopressor 5 mg Route: IVP; Site: left antecubital; ph 14:57 Drug: Lopressor 5 mg Route: IVP; Site: left antecubital; ph 18:50 Follow up: Response: No adverse reaction; Blood pressure is unchanged sg 15:51 Drug: hydrALAZINE 20 mg Route: IV; Rate: calculated rate; Site: left antecubital; sg 17:23 Drug: niCARdipine (25mg/250ml) 5 mg/hr Route: IV; Rate: calculated rate; Site: left sg antecubital; 18:50 Follow up: Response: No adverse reaction; IV Status: Infusion continued upon admission sg 18:30 Drug: Labetalol 20 mg Route: IVP; Infused Over: 2 mins; Site: left antecubital; sg 18:54 Follow up: Response: No adverse reaction; Blood pressure is lowered sg Outcome: 15:37 Decision to Hospitalize by Provider. kdr 18:08 Admitted to Report called to EVELINA Gupta sg 18:40 Admitted to ICU accompanied by nurse, accompanied by tech, via stretcher, room 1, on monitor, with chart, Report called to bedside report given to Candy HOYT, and Edilma HOYT 18:40 Condition: stable sg 18:40 Instructed on the need for admit, safety practices. 18:45 Patient left the ED. Signatures: Dispatcher [employer] Wilfrid Lees RN RN sg Rittger, Kevin, MD MD kdr Williams, Irene, RN RN Maria Victoria Marley RN RN Mo, [facility]
--- NOTE | 2019-05-08 15:37 | EDPHYS ---
Physician Documentation [facility] Name: Aravind Low Age: 68 yrs Sex: Male : 1950 Arrival Date: 05/08/2019 Time: 12:50 Bed 2 Private MD: ED Physician Bijan Graves HPI: 05/08 15:37 This 68 yrs old Black Male presents to ER via EMS with complaints of Blood Pressure kdr Problem. 15:37 Home health visited the patient today and noted that her BP was elevated and sent him kdr to the ED. He has no BP related complaints at this time.. Onset: The symptoms/episode began/occurred at an unknown time. Severity of symptoms: At their worst the symptoms were mild in the emergency department the symptoms are unchanged. The patient has experienced similar episodes in the past, a few times. The patient has been recently seen by a physician: Recently had a CVA. Historical: - Allergies: 13:05 No Known Allergies; ph - Home Meds: 12:59 allopurinol 100 mg Oral tab 1 tab 2 times per day [Active]; clonidine HCl 0.3 mg Oral ph tab 1 tab 2 times per day [Active]; Vitamin D Oral [Active]; Lactulose Oral [Active]; Hydralazine Oral [Active]; amlodipine oral [Active]; atorvastatin oral oral [Active]; clopidogrel oral oral [Active]; - PMHx: 12:59 Gout; Hypertension; CVA; ESRD; ph - PSHx: 12:59 left kidney removed; ph - Immunization history:: Adult Immunizations unknown. - Social history:: Smoking status: Patient uses tobacco products, denies chronic smoking, but will smoke occasionally. - Ebola Screening: : No symptoms or risks identified at this time. ROS: 15:37 Constitutional: Negative for fever, chills, and weight loss, Eyes: Negative for injury, kdr pain, redness, and discharge, ENT: Negative for injury, pain, and discharge, Neck: Negative for injury, pain, and swelling, Cardiovascular: Negative for chest pain, palpitations, and edema, - BP was noted to be elevated by Home Health Respiratory: Negative for shortness of breath, cough, wheezing, and pleuritic chest pain, Abdomen/GI: Negative for abdominal pain, nausea, vomiting, diarrhea, and constipation, Back: Negative for injury and pain, : Negative for injury, bleeding, discharge, and swelling, MS/Extremity: Negative for injury and deformity, Skin: Negative for injury, rash, and discoloration, Neuro: Negative for headache, weakness, numbness, tingling, and seizure activity. Psych: Negative for depression, anxiety, suicide ideation, homicidal ideation, and hallucinations, Allergy/Immunology: Negative for hives, rash, and allergies, Endocrine: Negative for neck swelling, polydipsia, polyuria, polyphagia, and marked weight changes, Hematologic/Lymphatic: Negative for swollen nodes, abnormal bleeding, and unusual bruising. Exam: 15:37 Constitutional: This is a well developed, well nourished patient who is awake, alert, kdr and in no acute distress. Head/Face: Normocephalic, atraumatic. Eyes: Pupils equal round and reactive to light, extra-ocular motions intact. Lids and lashes normal. Conjunctiva and sclera are non-icteric and not injected. Cornea within normal limits. Periorbital areas with no swelling, redness, or edema. Neck: Trachea midline, no thyromegaly or masses palpated, and no cervical lymphadenopathy. Supple, full range of motion without nuchal rigidity, or vertebral point tenderness. No Meningismus. Chest/axilla: Normal chest wall appearance and motion. Nontender with no deformity. No lesions are appreciated. Cardiovascular: Regular rate and rhythm with a normal S1 and S2. No gallops, murmurs, or rubs. Normal PMI, no JVD. No pulse deficits. Respiratory: Lungs have equal breath sounds bilaterally, clear to auscultation and percussion. No rales, rhonchi or wheezes noted. No increased work of breathing, no retractions or nasal flaring. Abdomen/GI: Soft, non-tender, with normal bowel sounds. No distension or tympany. No guarding or rebound. No evidence of tenderness throughout. Back: No spinal tenderness. No costovertebral tenderness. Full range of motion. Skin: Warm, dry with normal turgor. Normal color with no rashes, no lesions, and no evidence of cellulitis. MS/ Extremity: Pulses equal, no cyanosis. Neurovascular intact. Full, normal range of motion. Neuro: Awake and alert, GCS 15, oriented to person, place, time, and situation. Cranial nerves II-XII grossly intact. Motor strength 5/5 in all extremities. Sensory grossly intact. Cerebellar exam normal. Normal gait. Psych: Awake, alert, with orientation to person, place and time. Behavior, mood, and affect are within normal limits. Vital Signs: 13:03 BP 220 / 141; Pulse 94; Resp 18; Pulse Ox 100% on R/A; Weight 65.77 kg; ph 15:20 BP 227 / 137; Pulse 75; Resp 16; Pulse Ox 98% on R/A; iw 16:32 BP 199 / 103; Pulse 76; Resp 18; Pulse Ox 99% on R/A; ph 17:04 BP 179 / 107; Pulse 76; Resp 16; Pulse Ox 99% on R/A; ph 17:39 BP 176 / 94; Pulse 88; Resp 16; Pulse Ox 98% on R/A; sg 18:50 BP 177 / 92; Pulse 92; Resp 18; Temp 97.4; Pulse Ox 99% on R/A; Pain 0/10; sg MDM: 15:37 Patient medically screened. kdr 15:42 Data reviewed: vital signs, nurses notes, lab test result(s), EKG, radiologic studies. kdr Counseling: I had a detailed discussion with the patient and/or guardian regarding: the historical points, exam findings, and any diagnostic results supporting the discharge/admit diagnosis, lab results, radiology results, the need for outpatient follow up. 05/08 13:05 Order name: Basic Metabolic Panel; Complete Time: 15:24 kdr 05/08 13:05 Order name: CBC with Diff; Complete Time: 15: kdr 05/08 13:05 Order name: LFT's; Complete Time: 15:24 kdr 05/08 13:05 Order name: Magnesium; Complete Time: 15:24 kdr 05/08 13:05 Order name: NT PRO-BNP; Complete Time: 15:24 kdr 05/08 13:05 Order name: PT-INR; Complete Time: 15:24 kdr 05/08 13:05 Order name: Troponin (emerg Dept Use Only); Complete Time: 15:24 kdr 05/08 13:05 Order name: XRAY Chest (1 view); Complete Time: 15:24 kdr 05/08 13:05 Order name: EKG; Complete Time: 13: kdr 05/08 16:43 Order name: Social Service Consult EDMS 05/08 13:05 Order name: Cardiac monitoring; Complete Time: 13: kdr 05/08 13:05 Order name: EKG - Nurse/Tech; Complete Time: 16:55 kdr 05/08 13:05 Order name: IV Saline Lock; Complete Time: 13: kdr 05/08 13:05 Order name: Labs collected and sent; Complete Time: 13: kdr 05/08 13:05 Order name: O2 Per Protocol; Complete Time: 13: kdr 05/08 13:05 Order name: O2 Sat Monitoring; Complete Time: 13: kdr 05/08 16:44 Order name: CONS Physician Consult EDMS Administered Medications: 14:23 Drug: Lopressor 5 mg Route: IVP; Site: left antecubital; ph 14:36 Drug: Lopressor 5 mg Route: IVP; Site: left antecubital; ph 14:57 Drug: Lopressor 5 mg Route: IVP; Site: left antecubital; ph 18:50 Follow up: Response: No adverse reaction; Blood pressure is unchanged sg 15:51 Drug: hydrALAZINE 20 mg Route: IV; Rate: calculated rate; Site: left antecubital; sg 17:23 Drug: niCARdipine (25mg/250ml) 5 mg/hr Route: IV; Rate: calculated rate; Site: left sg antecubital; 18:50 Follow up: Response: No adverse reaction; IV Status: Infusion continued upon admission sg 18:30 Drug: Labetalol 20 mg Route: IVP; Infused Over: 2 mins; Site: left antecubital; sg 18:54 Follow up: Response: No adverse reaction; Blood pressure is lowered sg Disposition: 05/08/19 15:37 Hospitalization ordered by Miguel Houston for Inpatient Admission. Preliminary diagnosis is Hypertensive heart disease - Urgency. - Bed requested for Intensive Care Unit. - Status is Inpatient Admission. sg - Condition is Fair. - Problem is an acute exacerbation. - Symptoms have improved. UTI on Admission? No Signatures: Dispatcher [employer] EDIN Breanne Lara RN RN Wilfrid Hernandez RN RN sg Bijan Graves MD MD kdr Maria Victoria Marley RN RN ph Corrections: (The following items were deleted from the chart) 16:48 15:37 Hospitalization Ordered by Miguel Houston DO for Observation. Preliminary kdr diagnosis is Hypertensive heart disease - Urgency. Bed requested for Telemetry/MedSurg (observation). Status is Observation. Condition is Fair. Problem is an acute exacerbation. Symptoms have improved. UTI on Admission? No. kdr 17:34 16:48 05/08/2019 15:37 Hospitalization Ordered by Miguel Houston DO for Inpatient dw Admission. Preliminary diagnosis is Hypertensive heart disease - Urgency. Bed requested for Intensive Care Unit. Status is Inpatient Admission. Condition is Fair. Problem is an acute exacerbation. Symptoms have improved. UTI on Admission? No. kdr 18:07 17:34 05/08/2019 15:37 Hospitalization Ordered by Miguel Houston DO for Inpatient sg Admission. Preliminary diagnosis is Hypertensive heart disease - Urgency. Bed requested for Intensive Care Unit. Status is Inpatient Admission. Condition is Fair. Problem is an acute exacerbation. Symptoms have improved. UTI on Admission? No. dw 18:33 18:07 05/08/2019 15:37 Hospitalization Ordered by Miguel Houston DO for Inpatient dw Admission. Preliminary diagnosis is Hypertensive heart disease - Urgency. Bed requested for Intensive Care Unit. Status is Inpatient Admission. Condition is Fair. Problem is an acute exacerbation. Symptoms have improved. UTI on Admission? No. sg 18:45 18:33 05/08/2019 15:37 Hospitalization Ordered by Miguel Houston DO for Inpatient sg Admission. Preliminary diagnosis is Hypertensive heart disease - Urgency. Bed requested for Intensive Care Unit. Status is Inpatient Admission. Condition is Fair. Problem is an acute exacerbation. Symptoms have improved. UTI on Admission? No. dw
[2019-05-08] MEDS ORDERED: HYDRALAZINE HCL 20 MG/ML VIAL ONE (15:38)
--- NOTE | 2019-05-08 16:28 | P.HP ---
Certification for Inpatient Patient admitted to: Inpatient With expected LOS: >2 Midnights Patient will require the following post-hospital care: Home Health Services Practitioner: I am a practitioner with admitting privileges, knowledge of patient current condition, hospital course, and medical plan of care. Services: Services provided to patient in accordance with Admission requirements found in Title 42 Section 412.3 of the Code of Federal Regulations <Stephania Maganashua - Last Filed: 05/08/19 16:20> Patient History Date of Service: 05/08/19 Primary Care Provider: None Reason for admission: Hypertensive Urgency History of Present Illness: This is a 68-year-old gentleman that came into the emergency room after home health identified that patient had uncontrolled high blood pressure at home. Patient had been complaining of dizziness and headache at that time. Patient was evaluated in the emergency room and was given multiple rounds of anti hypertensive medications with no deescalation in blood pressure. At this time patient will be started on a Cardene drip and sent to the ICU for observation to wrapping machine helper in his blood pressure management. Upon assessment in the emergency room patient with no altered mentation, chest pain, shortness of breath, headache, dizziness, or focal neurologic deficits. Patient had stated that he has been off of his medications for the past couple of days. Patient stated that he had Gumbo and decided to not take his medicine for the next 2 days because of that. Home medications list reviewed: Yes - Past Medical/Surgical History Has patient received pneumonia vaccine in the past: Yes Diabetic: No -: Hypertension -: Chronic renal disease, stage IV -: History left renal mass with nephrectomy -: gout -: Left nephrectomy Psychosocial/ Personal History: Patient is - Social History Smoking Status: Never smoker Smoking therapy provided: No Alcohol use: No CD- Drugs: No Caffeine use: No Place of Residence: Home <Prashanth Magana - Last Filed: 05/08/19 16:20> Date of Service: 05/08/19 - Family History Family History: Reviewed- Non-Contributory <Miguel Houston - Last Filed: 05/08/19 17:05> Allergies No Known Allergies Allergy (Verified 04/01/19 07:51) Home Medications: Allopurinol 100 mg PO DAILY 03/27/19 Amlodipine Besylate 10 mg PO DAILY 03/27/19 Lactulose 15 ml PO DAILY 03/27/19 Atorvastatin Calcium [Lipitor] 40 mg PO BEDTIME #30 tab 03/31/19 Clopidogrel Bisulfate [Plavix*] 75 mg PO DAILY #30 tablet 03/31/19 Enoxaparin Sodium [Lovenox 30 MG INJ*] 30 mg SQ DAILY #14 syr 03/31/19 Hydralazine [Apresoline*] 10 mg PO TID #90 tab 03/31/19 cloNIDine HCl [Catapres*] 0.2 mg PO BID #60 tab 03/31/19 Review of Systems General: Unremarkable Eyes: Unremarkable ENT: Unremarkable Respiratory: Unremarkable Cardiovascular: Unremarkable Gastrointestinal: Unremarkable Genitourinary: Unremarkable Musculoskeletal: Unremarkable Integumentary: Unremarkable Neurological: As per HPI Lymphatics: Unremarkable <Prashanth Magana - Last Filed: 05/08/19 16:20> Physical Examination - Vital Signs Temperature: 98.2 F Blood Pressure: 220/141 Pulse: 94 Respirations: 18 Pulse Ox (%): 100 - Physical Exam General: Alert, In no apparent distress, Oriented x3, Cooperative HEENT: Normocephalic, PERRLA, Mucous membr. moist/pink, EOMI Neck: Supple, 2+ carotid pulse no bruit, JVD not distended, No Thyromegaly, No LAD Respiratory: Clear to auscultation bilaterally, Normal air movement Cardiovascular: No edema, Normal pulses, Regular rate/rhythm, Normal S1 S2, No gallops, No rubs, No murmurs Capillary refill: <2 Seconds Gastrointestinal: Normal bowel sounds, Soft and benign, Non-distended, No ascites, No tenderness, No masses, No rebound, No guarding Musculoskeletal: No clubbing, No swelling, No contractures, No erythema, No tenderness, No warmth Integumentary: No rashes, No breakdown, No significant lesion, No tenderness/ swelling, No erythema, No warmth, No cyanosis Neurological: Normal speech, Normal strength at 5/5 x4 extr, Normal tone, Sensation intact, Cranial nerves 3-12 intact, Normal reflexes 2+, Normal affect Lymphatics: No axilla or inguinal lymphadenopathy - Studies Laboratory Data (last 24 hrs) 05/08/19 13:15: PT 11.8, INR 1.00 05/08/19 13:15: WBC 5.6, Hgb 14.4, Hct 42.3, Plt Count 178 05/08/19 13:15: Sodium 141, Potassium 3.7, BUN 25 H, Creatinine 3.29 H, Glucose 102, Magnesium 2.2, Total Bilirubin 0.5, AST 19, ALT 26, Alkaline Phosphatase 102 <Prashanth Magana - Last Filed: 05/08/19 16:20> - Studies Laboratory Data (last 24 hrs) 05/08/19 13:15: PT 11.8, INR 1.00 05/08/19 13:15: WBC 5.6, Hgb 14.4, Hct 42.3, Plt Count 178 05/08/19 13:15: Sodium 141, Potassium 3.7, BUN 25 H, Creatinine 3.29 H, Glucose 102, Magnesium 2.2, Total Bilirubin 0.5, AST 19, ALT 26, Alkaline Phosphatase 102 <Miguel Houston - Last Filed: 05/08/19 17:05> Assessment and Plan - Problems (Diagnosis) (1) Chronic kidney disease (CKD) Current Visit: Yes Status: Chronic Qualifiers: Chronic kidney disease stage: stage 4 (severe) Qualified Code(s): N18.4 - Chronic kidney disease, stage 4 (severe) (2) Hypertensive urgency, malignant Current Visit: Yes Status: Acute (3) Gout Current Visit: Yes Status: Chronic Qualifiers: Gout site: unspecified site Gout etiology: unspecified cause Presence of tophus: without tophus (4) Elevated troponin Current Visit: No Status: Chronic - Plan Patient will be started on Cardene and sent to the ICU for hypertensive management. Patient will also be given home medication to help wean patient off of Cardene. Nephrology and Cardiology will be consulted for chronic kidney disease and elevated troponin. Neurologic checks and vital signs will be continuously reassessed. Goal is to downgrade patient next 24 hr. Discharge Plan: Home Plan to discharge in: 48 Hours - Advance Directives Does patient have a Living Will: No Does patient have a Durable POA for Healthcare: No - Code Status/Comfort Care Code Status Assessed: Yes Code Status: Full Code Critical Care: Yes Time Spent Managing Pts Care (In Minutes): 45 <Prashanth Magana - Last Filed: 05/08/19 16:20> Discharge Plan: Home Plan to discharge in: Greater than 2 days Physician Review Additional Text: Impression: Hypertensive urgency with noncompliance of medication Chronic renal disease stage IV Gout Elevated troponin likely related to above History of CVA Hyperlipidemia Plan: Hypertensive urgency with noncompliance of medication: Patient will be admitted to ICU. Patient currently on IV Cardene drip. Will restart home medication and wean off Cardene. Compliance will be addressed in detail. Nephrology, cardiology consulted to further evaluate. Anticipate discharge in the next 48-72 hr pending clinical improvement. Chronic renal disease stage IV: Nephrology consulted. Will monitor closely. Gout: Will need to restart home medication. Elevated troponin likely related to above: Will monitor cardiac enzymes. Anticipate no need for further cardiac intervention. History of CVA: Will need to continue home medication. Hyperlipidemia: Will need to continue home medication. Time Spent Managing Pts Care (In Minutes): 60 <Miguel Houston - Last Filed: 05/08/19 17:05>
[2019-05-08] MEDS ORDERED: NICARDIPINE HCL 25 MG in NA CHLORIDE 0.9% 240 ML IV PRN (17:01)
[2019-05-08] MEDS ORDERED: LABETALOL 20 MG/4ML SYRINGE IV ONE (18:19)
[2019-05-08 18:47] VITALS: BMI 22.4
[2019-05-08] MEDS ORDERED: Nicardipine in Saline, Iso-Osm 20 MG/200 ML IV.SOLN. IV PRN (19:10)
[2019-05-08] MEDS ORDERED: ONDANSETRON 4 MG/2 ML VIAL IV PRN (19:10)
[2019-05-08] MEDS: HYDRALAZINE HCL 25 MG TABLET PO SCH (19:27)
[2019-05-08] MEDS: CLONIDINE HCL 0.3 MG TAB PO SCH (19:27)
[2019-05-08 20:20] VITALS: O2SAT 97
[2019-05-08] MEDS ORDERED: ATORVASTATIN 40 MG TAB PO SCH (21:00)
[2019-05-09 05:10] LABS: Absolute Lymphocytes (CBC) 1.3 K/uL (0.7-4.9); Basophils % 0.6 % (0-1.3); Hematocrit 39.9 % (39.6-49.0); Lymphocytes % 22.4 % (15.3-44.8); MPV 8.7 fL (7.6-11.3); RBC Red Blood Cell Count 4.28 M/uL (4.33-5.43)
[2019-05-09 05:20] LABS: Albumin 3.3 g/dL (3.4-5.0); Phosphorus 3.8 mg/dL (2.5-4.9); Potassium 4.1 mmol/L (3.5-5.1)
--- NOTE | 2019-05-09 07:24 | EKG ---
Test Date: 2019-05-08 Test Time: 13:34:47 Insurance Biller: [employer] MEASUREMENT RESULTS: Intervals: Rate: 91 OK: 162 QRSD: 70 QT: 376 QTc: 462 [place]: P: 73 OK: 162 QRS: 78 T: 74 INTERPRETIVE STATEMENTS: Sinus rhythm with premature supraventricular complexes Minimal voltage criteria for LVH, may be normal variant Borderline ECG Compared to ECG 03/27/2019 16:13:24 Ventricular premature complex(es) no longer present ST (T wave) deviation no longer present Prolonged QT interval no longer present Electronically Signed On 05-09-19 07:22:17 CDT by Chito Sims
--- NOTE | 2019-05-09 08:17 | P.DS ---
Admission Date: 05/08/19 Discharge Date: 05/09/19 Primary Care Provider: None Disposition: DC HOME/HOME HEALTH CARE Discharge Condition: GOOD Reason for Admission: Hypertensive Urgency Consultations: Cardiology-Dr. Sims Nephrology-Dr. Arceo Procedures: CXR: Unremarkable Medical Problem List: Hypertensive urgency with noncompliance of medication Chronic renal disease stage IV Gout Elevated troponin likely related to above History of CVA Hyperlipidemia CAD Non compliance with medication and follow up Brief History of Present Illness: 68-year-old male presented to the emergency room with headache. Patient was found to have hypertensive urgency. Patient non compliant with his medication and follow up. Patient admits not taking his medication. Patient was admitted to ICU for treatment. Patient placed on IV Cardene drip. Hospital Course: Patient presented with hypertensive urgency due to noncompliance with medication. Patient was placed in ICU and started on IV Cardene drip. Patient was weaned off the drip once home medication was restarted. At discharge patient without any significant headaches, chest pain or shortness of breath. Blood pressure now stable. Compliance with medication was addressed in detail. Nephrology and Cardiology were consulted. Elevated troponin was noted. This was likely related to hypertensive urgency. Cardiology recommended no further cardiac intervention. Cardiology cleared patient for discharge. At discharge he will continue with his medications: Norvasc 10 mg daily, clonidine 0.3 mg twice daily, and hydralazine 25 mg 1 pill twice daily. Patient also takes Plavix 75 mg daily for history of CAD. He will continue with his medication. Compliance addressed in detail with patient. Patient understands that he needs to take his medications for blood pressure control. Recommend to maintain blood pressures less 150/80. Further adjustment can be done by his PCP. radiology services manager will help arrange home health for hypertensive teaching and to make sure he takes his medication. Social work will also help arrange to set up for follow up visit with a PCP to establish care and monitor his progress. Patient may benefit with pill box to make sure that he takes his medication. Patient may need assistance with family to make sure he is compliant with follow up and medication. Patient with chronic renal disease stage IV. This has remained stable. Nephrology consulted. No further intervention was required. Recommended no further use of nonsteroidal anti-inflammatories. Future medications will need to be renally dosed. Recommend follow up with nephrology in 1-2 weeks to monitor his progress. Recommend to recheck lab-BMP in 1-2 weeks to closely monitor. Patient with history of gout. Patient will continue with his medication- allopurinol 300 mg daily. Patient with hyperlipidemia. Patient will continue with his medication-Lipitor 40 mg daily. Vital Signs/Physical Exam: Temp Pulse Resp BP Pulse Ox 98.9 F 75 17 125/75 100 05/09/19 04:00 05/09/19 06:00 05/09/19 06:00 05/09/19 06:00 05/09/19 06:00 General: Alert, In no apparent distress, Oriented x3, Cooperative HEENT: Atraumatic, Mucous membr. moist/pink Neck: Supple Respiratory: Clear to auscultation bilaterally, Normal air movement Cardiovascular: Normal pulses, Regular rate/rhythm Gastrointestinal: Normal bowel sounds, Soft and benign, Non-distended, No tenderness, No masses, No rebound, No guarding Musculoskeletal: No erythema, No tenderness, No warmth Integumentary: No tenderness/swelling, No erythema, No warmth, No cyanosis Neurological: Normal speech, Normal strength at 5/5 x4 extr, Normal tone, Normal affect Laboratory Data at Discharge: WBC 5.8 K/uL (4.3-10.9) 05/09/19 04:28 Hgb 13.2 g/dL (13.6-17.9) L 05/09/19 04:28 Hct 39.9 % (39.6-49.0) 05/09/19 04:28 Plt Count 176 K/uL (152-406) 05/09/19 04:28 PT 11.8 SECONDS (9.5-12.5) 05/08/19 13:15 INR 1.00 05/08/19 13:15 Sodium 143 mmol/L (136-145) 05/09/19 04:28 Potassium 4.1 mmol/L (3.5-5.1) 05/09/19 04:28 BUN 26 mg/dL (7-18) H 05/09/19 04:28 Creatinine 3.12 mg/dL (0.55-1.3) H 05/09/19 04:28 Glucose 105 mg/dL (74-106) 05/09/19 04:28 Phosphorus 3.8 mg/dL (2.5-4.9) 05/09/19 04:28 Magnesium 2.2 mg/dL (1.8-2.4) 05/08/19 13:15 Total Bilirubin 0.5 mg/dL (0.2-1.0) 05/08/19 13:15 AST 19 U/L (15-37) 05/08/19 13:15 ALT 26 U/L (12-78) 05/08/19 13:15 Alkaline Phosphatase 102 U/L (45-117) 05/08/19 13:15 Troponin I 0.27 ng/mL (0.0-0.045) H 05/08/19 23:28 Home Medications: Allopurinol 300 mg PO DAILY 03/27/19 Amlodipine Besylate 10 mg PO DAILY #30 tablet 05/09/19 Atorvastatin Calcium [Lipitor] 40 mg PO BEDTIME #30 tab 05/09/19 Clopidogrel Bisulfate [Plavix*] 75 mg PO DAILY #30 tablet 05/09/19 Hydralazine [Apresoline*] 25 mg PO BID #60 tab 05/09/19 Lactulose 15 ml PO DAILY PRN #1 bottle 05/09/19 cloNIDine HCl [Catapres*] 0.3 mg PO BID #60 tablet 05/09/19 New Medications: Amlodipine Besylate 10 mg PO DAILY #30 tablet Atorvastatin Calcium [Lipitor] 40 mg PO BEDTIME #30 tab cloNIDine HCl [Catapres*] 0.3 mg PO BID #60 tablet Clopidogrel Bisulfate [Plavix*] 75 mg PO DAILY #30 tablet Hydralazine [Apresoline*] 25 mg PO BID #60 tab Lactulose 15 ml PO DAILY PRN #1 bottle PRN Reason: Constipation Patient Discharge Instructions: 1. Social work to help arrange for PCP appointment to establish care and follow up. Home health will also be arranged for hypertensive teaching and compliance with medication. 2. Patient presented with hypertensive urgency due to noncompliance with medication. Patient was placed in ICU and started on IV Cardene drip. Patient was weaned off the drip once home medication was restarted. At discharge patient without any significant headaches, chest pain or shortness of breath. Blood pressure now stable. Compliance with medication was addressed in detail. Nephrology and Cardiology were consulted. Elevated troponin was noted. This was likely related to hypertensive urgency. Cardiology recommended no further cardiac intervention. Cardiology cleared patient for discharge. At discharge he will continue with his medications: Norvasc 10 mg daily, clonidine 0.3 mg twice daily, and hydralazine 25 mg 1 pill twice daily. Patient also takes Plavix 75 mg daily for history of CAD. He will continue with his medication. Compliance addressed in detail with patient. Patient understands that he needs to take his medications for blood pressure control. Recommend to maintain blood pressures less 150/80. Further adjustment can be done by his PCP. radiology services manager will help arrange home health for hypertensive teaching and to make sure he takes his medication. Social work will also help arrange to set up for follow up visit with a PCP to establish care and monitor his progress. Patient may benefit with pill box to make sure that he takes his medication. Patient may need assistance with family to make sure he is compliant with follow up and medication. 3. Patient with chronic renal disease stage IV. This has remained stable. Nephrology consulted. No further intervention was required. Recommended no further use of nonsteroidal anti-inflammatories. Future medications will need to be renally dosed. Recommend follow up with nephrology in 1-2 weeks to monitor his progress. Recommend to recheck lab-BMP in 1-2 weeks to closely monitor. 4. Patient with history of gout. Patient will continue with his medication-allopurinol 300 mg daily. 5. Patient with hyperlipidemia. Patient will continue with his medication-Lipitor 40 mg daily. Diet: Renal Activity: Ad marlene Time spent managing pt's care (in minutes): 55
[2019-05-09] MEDS: HYDRALAZINE HCL 25 MG TABLET PO SCH (08:59)
[2019-05-09] MEDS: CLONIDINE HCL 0.3 MG TAB PO SCH (08:59)
[2019-05-09] MEDS ORDERED: AMLODIPINE 10 MG TAB PO SCH (09:00)
[2019-05-09] MEDS ORDERED: ASPIRIN EC 81 MG TAB PO SCH (09:00)
[2019-05-09] MEDS ORDERED: CLOPIDOGREL 75 MG TABLET PO SCH (09:00)
[2019-05-09] MEDS ORDERED: HYDRALAZINE HCL 25 MG TABLET PO ONE (10:40)
[2019-05-09 11:30] VITALS: BP 157/82; TEMP 98.7
--- NOTE | 2019-05-09 11:59 | EKG ---
Test Date: 2019-05-09 Test Time: 07:51:31 Boiler Erector: AARON MEASUREMENT RESULTS: Intervals: Rate: 70 LA: 172 QRSD: 86 QT: 454 QTc: 490 [place]: P: 69 LA: 172 QRS: 77 T: 77 INTERPRETIVE STATEMENTS: Normal sinus rhythm Voltage criteria for left ventricular hypertrophy Prolonged QT Abnormal ECG Compared to ECG 05/08/2019 13:34:47 Prolonged QT interval now present Atrial premature complex(es) no longer present Electronically Signed On 05-09-19 11:58:08 CDT by Chito Sims
== END 2019-05-09 11:20 | disposition home health service (06) | DRG 305 ==
LOC: ER 12:48 → ERHOLD 16:42 → 3RD-ICU 18:21
PROVIDERS: ADMIT Family Medicine; ATTEND Family Medicine
DX: I16.0 Hypertensive urgency (principal); N18.4 Chronic kidney disease, stage 4 (severe); I12.9 Hypertensive chronic kidney disease with stage 1 through stage 4 chronic kidney disease, or unspecified chronic kidney disease; M10.9 Gout, unspecified; R79.89 Other specified abnormal findings of blood chemistry; E78.5 Hyperlipidemia, unspecified; Z86.73 Personal history of transient ischemic attack (TIA), and cerebral infarction without residual deficits; Z91.14 Patient's other noncompliance with medication regimen
CPT/HCPCS: 36415; 71045; 80048; 80069; 80076; 83735; 83880; 84484; 85025; 85610; 93005; 96365; 96375; 99285; J0360; J7030

== ENCOUNTER 2022-03-21 16:24 | Emergency (ER) | payer OTHER ==
--- OUTSIDE RECORDS SUMMARY | 2022-03-21 16:27 | XMS REPORT | Continuity of Care Document ---
:1950 Author Organization [facility] t Address [address] [place] [address] Care Team Providers Name Role Phone SHARPLESS Primary Care Physician Unavailable Hetal PENALOZA, Rut Attending Clinician Demetrius Larkin MD Attending Clinician DEMETRIUS LARKIN Attending Clinician Unavailable FARZAD JACKSON Attending Clinician Unavailable DEMETRIUS LARKIN Admitting Clinician Unavailable FARZAD JACKSON Admitting Clinician Unavailable Payers Payer Name Policy Type Policy Number Effective Date Expiration Date S ource MEDICARE A B [id number] 2017 00:00:00 Problems Condition Condition Condition Status Onset Resolution Last Treating Co mments Source Name Details Category Date Date Treatment Clinician Date Smoking Smoking Disease Recurre [facility] 1/2 pack a 1/2 pack a nce 5-20 Co llege day or day or 00:00: of less less 00 Medicin e Renal cell Renal cell Disease Active Overview : [facility] cancer, cancer, 3-27 [facility] left left 00:00: g of this of (HCCode) (HCCode) 00 note Medici n might be e different from the original. S/P L LAP RADICAL NEPHRECTO MY AT SL Pre-op Pre-op Disease Active [facility] Renal Renal Disease Active [facility] mass, left mass, left 3-27 [facility] k[facility] 00:00: Medical 00 Center Essential Essential Disease Active [facility] hypertensi hypertensi 2-08 Co llege on on 00:00: of 00 Medicin e Left renal Left renal Disease [facility] College 00:00: of 00 Medicin e 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 00:00: Medi jennifer behavior behavior 00 Center of kidney of kidney and and ureter, ureter, unspecifie unspecifie d d laterality laterality Kidney Kidney Disease Active [facility] disease disease [facility] e CKD CKD Disease Active Overview: [facility] (chronic (chronic [facility] kidney kidney g of this of disease) disease) note Medici n stage 4, stage 4, might be e GFR 15-29 GFR 15-29 different ml/min ml/min from the (HCCode) (HCCode) original. WITH HX OF HTN AND RCC Encephalop Encephalop [facility] Allergies, Adverse Reactions, Alerts Allergy Allergy Status Severity Reaction(s) Onset Inactive Treating Comm ents Source Name Type Date Date Clinician NO KNOWN Allergy Active [facility] Social History Social Habit Start Date Stop Date Quantity Comments Source History of tobacco Cigarette Smoker [facility] use of Medicine Tobacco Comment 2021-04-05 2021-04-05 20+ years [facility] Co llege 00:00:00 00:00:00 of Medicine Alcohol intake 2017-10-10 2017-10-10 [facility]00 of alcohol [facility] Center (finding) Cigarettes smoked 2017-03-02 2017-03-[address] [facility] current (pack per 00:00:00 00:00:00 Medical Center day) - Reported Tobacco use and 2017-03-02 2017-03-[address] [facility]aine kes exposure 00:00:00 00:00:00 [facility] Sex Assigned At [address] [facility] Sharmaine kes 00:00:00 00:00:00 [facility] Center Smoking Status Start Date Stop Date Source Smokes tobacco daily 2018-04-01 00:00:00 [facility] Medications Ordered Filled Start Stop Current Ordering Indication Dosage Frequency Signature Comments Components Source Medication Medication Date Date Medication? Clinician (SIG) Name Name Tamsulosin 2020-07 Yes TAKE 1 [facility] HCl 0.4 MG 2-15 CAPSULE BY Col lege CAPS 00:00: MOUTH of 00 EVERY DAY Medicin e clonidine Yes TAKE 1 [facility] (CATAPRESS) 9-21 TABLET BY Col lege 0.2 MG 00:00: MOUTH of tablet 00 TWICE A Medicin DAY e amlodipine Yes TAKE 1 [facility] (NORVASC) 9-21 TABLET BY Colle ge 10 MG 00:00: MOUTH of tablet 00 EVERY DAY Medicin e clonidine Yes TAKE 1 [facility] (CATAPRESS) 9-21 TABLET BY Col lege 0.2 MG 00:00: MOUTH of tablet 00 TWICE A Medicin DAY e amlodipine Yes TAKE 1 [facility] (NORVASC) 9-21 TABLET BY Colle ge 10 MG 00:00: MOUTH of tablet 00 EVERY DAY Medicin e clonidine Yes TAKE 1 [facility] (CATAPRESS) 9-21 TABLET BY Col lege 0.2 MG 00:00: MOUTH of tablet 00 TWICE A Medicin DAY e amlodipine Yes TAKE 1 [facility] (NORVASC) 9-21 TABLET BY Colle ge 10 MG 00:00: MOUTH of tablet 00 EVERY DAY Medicin e atorvastati Yes TAKE 1 [facility] n (LIPITOR) 8-18 TABLET BY Col lege 40 MG 00:00: MOUTH of tablet 00 EVERYDAY Medicin AT BEDTIME e atorvastati Yes TAKE 1 [facility] n (LIPITOR) 8-18 TABLET BY Col lege 40 MG 00:00: MOUTH of tablet 00 EVERYDAY Medicin AT BEDTIME e atorvastati Yes TAKE 1 [facility] n (LIPITOR) 8-18 TABLET BY Col lege 40 MG 00:00: MOUTH of tablet 00 EVERYDAY Medicin AT BEDTIME e amlodipine 2020- No TAKE 1 [facility] or (NORVASC) 8-18 09-21 TABLET BY Ernestine ege 10 MG 00:00: 00:00 MOUTH of tablet 00 :00 EVERY DAY Medicin e amlodipine 2020- No TAKE 1 [facility] or (NORVASC) 8-18 04-05 TABLET BY Ernestine ege 10 MG 00:00: 00:00 MOUTH of tablet 00 :00 EVERY DAY Medicin e clonidine 2020- No TAKE 1 [facility] (CATAPRESS) 5-04-05 TABLET BY Co llege 0.2 MG 00:00: 00:00 MOUTH of tablet 00 :00 TWICE A Medicin DAY e clonidine 2020- No TAKE 1 [facility] (CATAPRESS) 11-15 TABLET BY Co llege 0.2 MG 00:00: 00:00 MOUTH of tablet 00 :00 TWICE A Medicin DAY e atorvastati Yes TAKE 1 [facility] n (LIPITOR) 2-04 TABLET BY Col lege 40 MG 00:00: MOUTH of tablet 00 EVERYDAY Medicin AT BEDTIME e lactulose 2019-07 Yes 10g TAKE 15 ML [facility] (CHRONULAC) 2-19 BY MOUTH Ernestine ege 10 GM/15ML 00:00: DAILY of solution 00 NEEDED FOR Medic in OTHER e (CONSTIPAT ION). lactulose 2019-07 Yes 10g TAKE 15 ML [facility] (CHRONULAC) 2-19 BY MOUTH Ernestine ege 10 GM/15ML 00:00: DAILY of solution 00 NEEDED FOR Medic in OTHER e (CONSTIPAT ION). lactulose 2019-07 Yes 10g TAKE 15 ML [facility] (CHRONULAC) 2-19 BY MOUTH Ernestine ege 10 GM/15ML 00:00: DAILY of solution 00 NEEDED FOR Medic in OTHER e (CONSTIPAT ION). lactulose 2019-07 Yes 10g TAKE 15 ML [facility] (CHRONULAC) 2-19 BY MOUTH Ernestine ege 10 GM/15ML 00:00: DAILY of solution 00 NEEDED FOR Medic in OTHER e (CONSTIPAT ION). Tamsulosin 2019-07 Yes .4mg Take 0.4 [facility] HCl 0-21 mg by Davy (FLOMAX) 00:00: mouth of 0.4 MG CAPS 00 daily. Medici n e Tamsulosin 2019-07 Yes .4mg Take 0.4 [facility] HCl 0-21 mg by Davy (FLOMAX) 00:00: mouth of 0.4 MG CAPS 00 daily. Medici n e Tamsulosin 2019-07 Yes .4mg Take 0.4 [facility] HCl 0-21 mg by Davy (FLOMAX) 00:00: mouth of 0.4 MG CAPS 00 daily. Medici n e Tamsulosin 2020-1 Yes .4mg Take 0.4 [facility] HCl 0-21 mg by Davy (FLOMAX) 00:00: mouth of 0.4 MG CAPS 00 daily. Medici n e lactulose 2020-1 Yes 10g TAKE 15 ML [facility] (CHRONULAC) 0-08 BY MOUTH Ernestine ege 10 GM/15ML 00:00: DAILY of solution 00 NEEDED FOR Medic in OTHER e (CONSTIPAT ION). atorvastati 2020-1 Yes TAKE 1 [facility] n (LIPITOR) 0-08 TABLET BY Col lege 40 MG 00:00: MOUTH AT of tablet 00 BEDTIME Medicin e amlodipine 2020-0 Yes 10mg Take 1 Tab [facility] (NORVASC) 9-21 by mouth Colleg e 10 MG 00:00: daily. of tablet 00 Medicin e clonidine 2020-0 Yes .2mg Take 1 Tab [facility] (CATAPRESS) 9-21 by mouth [facility]estine ege 0.2 MG 00:00: two times of tablet 00 daily. Medicin e amlodipine 2020-0 Yes 10mg Take 1 Tab [facility] (NORVASC) 9-21 by mouth Colleg e 10 MG 00:00: daily. of tablet 00 Medicin e clonidine 2020-0 Yes .2mg Take 1 Tab [facility] (CATAPRESS) 9-21 by mouth [facility]estine ege 0.2 MG 00:00: two times of tablet 00 daily. Medicin e amlodipine 2020-0 Yes 10mg Take 1 Tab [facility] (NORVASC) 9-21 by mouth Colleg e 10 MG 00:00: daily. of tablet 00 Medicin e clonidine 2020-0 Yes .2mg Take 1 Tab [facility] (CATAPRESS) 9-21 by mouth [facility]estine ege 0.2 MG 00:00: two times of tablet 00 daily. Medicin e clopidogrel 2020-0 Yes 75mg Take 1 Tab [facility] (PLAVIX) 75 7-16 by mouth [facility]estine ege MG Tablet 00:00: daily. of 00 Medicin e clopidogrel 2020-0 Yes 75mg Take 1 Tab [facility] (PLAVIX) 75 7-16 by mouth [facility]estine ege MG Tablet 00:00: daily. of 00 Medicin e clopidogrel 2020-0 Yes 75mg Take 1 Tab [facility] (PLAVIX) 75 7-16 by mouth Ernestine ege MG Tablet 00:00: daily. of 00 Medicin e clopidogrel 2020-0 Yes 75mg Take 1 Tab [facility] (PLAVIX) 75 7-16 by mouth [facility]estine ege MG Tablet 00:00: daily. of 00 Medicin e lactulose 2020-0 Yes 10g Take 15 mL [facility] (CHRONULAC) 7-16 by mouth Ernestine ege 10 GM/15ML 00:00: daily as of solution 00 needed for Medic in Other e (constipat ion). clopidogrel 2020-0 Yes 75mg Take 1 Tab [facility] (PLAVIX) 75 7-16 by mouth Ernestine ege MG Tablet 00:00: daily. of 00 Medicin e atorvastati 2020-0 Yes 40mg Take 1 Tab David n (LIPITOR) 7-16 by mouth [facility]estine ege 40 MG 00:00: daily. By of tablet 00 bedtime Medicin e clopidogrel 2020-0 Yes 75mg Take 1 Tab [facility] (PLAVIX) 75 7-16 by mouth Ernestine ege MG Tablet 00:00: daily. of 00 Medicin e clonidine 2020-0 2020- No .2mg Take 1 Tab [facility] (CATAPRESS) -31 03- by mouth Col lege 0.2 MG 00:00: 00:00 two times of tablet 00 :00 daily. Medicin e amlodipine 2020-0 2020- No 10mg Take 1 Tab [facility] (NORVASC) -04-05 by mouth Colle ge 10 MG 00:00: 00:00 daily. of tablet 00 :00 Medicin e cloNIDine 2018-0 Yes .3mg [id number] Take 0.[address] [facility] HCl 4- [id number] mg by [facility] (CATAPRES) 03:27: 3D mouth 3 Medi jennifer 0.3 MG 05 (three) Center tablet times daily. furosemide 2018-0 Yes 40mg Take [address] (LASIX) 40 4-01 by mouth [facility] MG tablet 03:27: every Medical 05 other day. [facility] amLODIPine 2017-0 Yes 10mg QD Take [address] (NORVASC) 4-01 by mouth [facility] 10 MG 03:27: daily. Medical tablet 05 [facility] Vital Signs Vital Name Observation Time Observation Value Comments Source Systolic blood 2021-08-08 19:36:00 130 mm[Hg] [facility] Medicine Diastolic blood 2021-08-08 19:36:00 70 mm[Hg] [facility] Medicine Heart rate 2021-08-08 19:36:00 82 /min [facility] ollege of Medicine Respiratory rate 2021-08-08 19:36:00 16 /min [facility] Body height 2021-08-08 19:36:00 160 cm [facility] ollege of Medicine Body weight 2021-08-08 19:36:00 61.236 kg [facility] ollege of Medicine BMI 2021-08-08 19:36:00 23.91 kg/m2 [facility] ollege of [facility] Systolic blood 2021-04-05 18:18:00 130 mm[Hg] [facility] Medicine Diastolic blood 2021-04-05 18:18:00 80 mm[Hg] [facility] Medicine Heart rate 2021-04-05 18:18:00 75 /min [facility] ollege of Medicine Respiratory rate 2021-04-05 18:18:00 16 /min [facility] Body height 2021-04-05 18:18:00 160 cm [facility] ollege of [facility] Body weight 2021-04-05 18:18:00 62.869 kg [facility] ollege of Medicine BMI 2021-04-05 18:18:00 24.55 kg/m2 [facility] ollege of Medicine Diastolic blood 2020-10-07 19:41:00 82 mm[Hg] [facility] Medicine Heart rate 2020-10-07 19:41:00 51 /min [facility] ollege of Medicine Respiratory rate 2020-10-07 19:41:00 17 /min [facility] Systolic blood 2020-10-07 19:41:00 157 mm[Hg] [facility] pressure Medicine Body height 2020-05-05 14:26:00 160 cm [facility] ollege of Medicine Body weight 2020-05-05 14:26:00 68.04 kg [facility] ollege of Medicine BMI 2020-05-05 14:26:00 26.57 kg/m2 [facility] Systolic blood 2020-05-05 14:26:00 159 mm[Hg] [facility] Diastolic blood 2020-05-05 14:26:00 78 mm[Hg] [facility] Heart rate 2020-05-05 14:26:00 59 /min [facility] Body temperature 2020-05-05 14:26:00 36.61 Viky [facility] Respiratory rate 2020-05-05 14:26:00 18 /min [facility] Systolic blood 2020-04-05 18:17:00 144 mm[Hg] [facility] Diastolic blood 2020-04-05 18:17:00 82 mm[Hg] [facility] Heart rate 2020-04-05 18:17:00 56 /min [facility] Body temperature 2020-04-05 18:17:00 36.44 Viky [facility] Respiratory rate 2020-04-05 18:17:00 16 /min [facility] Body height 2020-04-05 18:17:00 162.6 cm [facility] Body weight 2020-04-05 18:17:00 64.411 kg [facility] BMI 2020-04-05 18:17:00 24.37 kg/m2 [facility] Procedures Procedure Date / Time Performed Performing Clinician [facility] e POCT URINALYSIS 2020-10-07 00:00:00 Demetrius Larkin [facility] llege of DIPSTICK Medicine POCT URINALYSIS 2020-05-05 00:00:00 Demetrius Larkin [facility] llege of DIPSTICK Medicine Plan of Care Planned Activity Planned Date Details Comments Source Future Scheduled 2022-03-[address] [facility] Test 00:00:00 (#1) [code = Medical Center INFLUENZA VACCINE (#1)] Future Scheduled 2021-08-08 CBC W/O DIFF W PLT Ordered: [facility] [employer] Test 14:06:14 [code = 6690-2] 08/08/2021 of Medicine Future Scheduled 2021-08-08 COMPREHENSIVE Ordered: [facility] Col lege Test 14:06:14 METABOLIC PANEL 08/08/2021 of Medicine [code = 20352-1] Future Scheduled 2021-08-08 FERRITIN [code = Ordered: [facility] Test 14:06:14 47182-1] 08/08/2021 of Medicine Future Scheduled 2021-08-08 IRON+TIBC+%SAT [code Ordered: [facility] Test 14:06:14 = NOCPT] 08/08/2021 of Medicine Future Scheduled 2021-08-08 PHOSPHORUS [code = Ordered: [facility] Test 14:06:14 2777-1] 08/08/2021 of Medicine Future Scheduled 2021-08-08 PTH INTACT [code = Ordered: [facility] Test 14:06:14 2731-8] 08/08/2021 of Medicine Future Scheduled 2021-08-08 VITAMIN D 25 HYDROXY Ordered: [facility] Test 14:06:14 [code = 1989-3] 08/08/2021 of Medicine Future Scheduled 2021-08-08 MICROALBUMIN/CREAT Ordered: [facility] Test 14:06:14 URINE RATIO [code = 08/08/2021 of Medic ine 9318-7] Future Scheduled 2021-08-08 Screening for [facility] Col lege Test 13:35:31 malignant neoplasm of Medici ne of colon (procedure) [code = 793784507] Future Scheduled 2021-08-08 TETANUS SHOT (ADULT) [facility] Test 13:35:31 [code = TETANUS SHOT of Medi cine (ADULT)] Future Scheduled 2021-08-08 ZOSTER VACCINE (1 of [facility] Test 13:35:31 2) [code = ZOSTER of Medicin e VACCINE (1 of 2)] Future Scheduled 2021-08-08 MEDICARE AWV [facility] Test 13:35:31 (Initial) [code = of Medicin e MEDICARE AWV (Initial)] Future Scheduled 2021-08-08 Abdominal aortic [facility] Test 13:35:31 aneurysm screening of Medici ne (procedure) [code = 798745169] Future Scheduled 2021-08-08 FALL SCREEN [code = [facility] Test 13:35:31 FALL SCREEN] of Medicine Future Scheduled 2021-08-08 Pneumococcal 65+ (1 [facility] Test 13:35:31 of 1 - PPSV23) [code of Medi cine = Pneumococcal 65+ (1 of 1 - PPSV23)] Future Scheduled 2021-08-08 FLU VACCINE > 6 [facility] Test 13:35:31 MONTHS [code = FLU of Medici ne VACCINE > 6 MONTHS] Future Scheduled 2021-08-08 COVID-19 Vaccine (3 [facility] Test 13:35:31 - Booster for Pfizer of Medi cine series) [code = COVID-19 Vaccine (3 - Booster for Pfizer series)] Future Scheduled 2021-07-[address] [facility] Test 00:00:00 (12+) [code = Medical Center DEPRESSION SCREENING (12+)] Future Scheduled 2021-07-16 FALLS RISK SCREENING [facility] Test 00:00:00 [code = FALLS RISK Medical enter SCREENING] Future Scheduled 2021-05-09 PSA TOTAL(URO DEPT) Expected: [facility] Test 00:00:00 [code = 2857-1] 05/09/2021 of Medicine (Approximate), Expires: 08/09/2021 Future Scheduled 2021-05-09 COMPREHENSIVE Expected: [facility] Test 00:00:00 METABOLIC PANEL 05/09/2021 of Medicine [code = 81961-7] (Approximate), Expires: 06/09/2021 Future Scheduled 2021-05-09 CBC W/AUTO DIFF WITH Expected: [facility] [employer] Test 00:00:00 PLATELETS [code = 05/09/2021 of Medicin e 59663-2] (Approximate), Expires: 06/09/2021 Future Scheduled 2021-04-05 CBC W/AUTO DIFF WITH Ordered: [facility] [employer] Test 13:38:59 PLATELETS [code = 04/05/2021 of Medicin e 20762-8] Future Scheduled 2021-04-05 COMPREHENSIVE Ordered: [facility] Col [facility]ge Test 13:38:59 METABOLIC PANEL 04/05/2021 of Medicine [code = 30531-0] Future Scheduled 2021-04-05 FERRITIN [code = Ordered: [facility] Test 13:38:59 58156-9] 04/05/2021 of Medicine Future Scheduled 2021-04-05 IRON+TIBC+%SAT [code Ordered: [facility] [employer] Test 13:38:59 = NOCPT] 04/05/2021 of Medicine Future Scheduled 2021-04-05 PHOSPHORUS [code = Ordered: [employer] [facility] [employer] Test 13:38:59 2777-1] 04/05/2021 of Medicine Future Scheduled 2021-04-05 PTH INTACT [code = Ordered: [facility] Test 13:38:59 2731-8] 04/05/2021 of Medicine Future Scheduled 2021-04-05 RANDOM URINE Ordered: [facility] Test 13:38:59 PROTEIN/CREATININE 04/05/2021 of Medici ne [code = 2890-2] Future Scheduled 2021-04-05 MICROALBUMIN/CREAT Ordered: [facility] r [employer] Test 13:38:59 URINE RATIO [code = 04/05/2021 of Medic ine 9318-7] Future Scheduled 2021-04-05 VITAMIN D 25 HYDROXY Ordered: [facility] [employer] Test 13:38:59 [code = 1989-3] 04/05/2021 of Medicine Future Scheduled 2021-04-05 ANTI NEUTROPHIL Ordered: [facility] C [facility] Test 13:38:59 CYTOPLASMIC ANTIBODY 04/05/2021 of Medi cine [code = 92148] Future Scheduled 2021-04-05 CBC W/AUTO DIFF WITH Ordered: [facility] [employer] Test 13:38:59 PLATELETS [code = 04/05/2021 of Medicin e 94367-8] Future Scheduled 2021-04-05 COMPREHENSIVE Ordered: [facility] Col [facility]ge Test 13:38:59 METABOLIC PANEL 04/05/2021 of Medicine [code = 42929-3] Future Scheduled 2021-04-05 FERRITIN [code = Ordered: [facility] [employer] Test 13:38:59 79867-2] 04/05/2021 of Medicine Future Scheduled 2021-04-05 IRON+TIBC+%SAT [code Ordered: [facility] [employer] Test 13:38:59 = NOCPT] 04/05/2021 of Medicine Future Scheduled 2021-04-05 PHOSPHORUS [code = Ordered: [employer] Test 13:38:59 2777-1] 04/05/2021 of Medicine Future Scheduled 2021-04-05 PTH INTACT [code = Ordered: [employer] Test 13:38:59 2731-8] 04/05/2021 of Medicine Future Scheduled 2021-04-05 RANDOM URINE Ordered: [facility] Test 13:38:59 PROTEIN/CREATININE 04/05/2021 of Medici ne [code = 2890-2] Future Scheduled 2021-04-05 MICROALBUMIN/CREAT Ordered: [facility] Test 13:38:59 URINE RATIO [code = 04/05/2021 of Medic ine 9318-7] Future Scheduled 2021-04-05 VITAMIN D 25 HYDROXY Ordered: [facility] Test 13:38:59 [code = 1989-3] 04/05/2021 of Medicine Future Scheduled 2021-04-05 ANTI NEUTROPHIL Ordered: [facility] C [facility] Test 13:38:59 CYTOPLASMIC ANTIBODY 04/05/2021 of Medi cine [code = 22703] Future Scheduled 2021-04-05 Screening for [facility] Col [facility] Test 13:19:08 malignant neoplasm of Medici ne of colon (procedure) [code = 318182377] Future Scheduled 2021-04-05 TETANUS SHOT (ADULT) [facility] Test 13:19:08 [code = TETANUS SHOT of Medi cine (ADULT)] Future Scheduled 2021-04-05 BMI FOLLOW UP PLAN [facility] Test 13:19:08 [code = BMI FOLLOW of Medici ne UP PLAN] Future Scheduled 2021-04-05 ZOSTER VACCINE (1 of [facility] Test 13:19:08 2) [code = ZOSTER of Medicin e VACCINE (1 of 2)] Future Scheduled 2021-04-05 MEDICARE AWV [facility] Test 13:19:08 (Initial) [code = of Medicin e MEDICARE AWV (Initial)] Future Scheduled 2021-04-05 Abdominal aortic [facility] Test 13:19:08 aneurysm screening of Medici ne (procedure) [code = 993635048] Future Scheduled 2021-04-05 FALL SCREEN [code = [facility] or College Test 13:19:08 FALL SCREEN] of Medicine Future Scheduled 2021-04-05 PNEUMOVAX >=65 [facility] Co [facility]lege Test 13:19:08 (PPSV23) [code = of Medicine PNEUMOVAX >=65 (PPSV23)] Future Scheduled 2021-04-05 FLU VACCINE > 6 [facility] C [facility]lege Test 13:19:08 MONTHS [code = FLU of Medici ne VACCINE > 6 MONTHS] Future Scheduled 2021-04-05 Screening for [facility] Col [facility]ge Test 13:19:08 malignant neoplasm of Medici ne of colon (procedure) [code = 981204366] Future Scheduled 2021-04-05 TETANUS SHOT (ADULT) [facility] Test 13:19:08 [code = TETANUS SHOT of Medi cine (ADULT)] Future Scheduled 2021-04-05 BMI FOLLOW UP PLAN [facility] Test 13:19:08 [code = BMI FOLLOW of Medici ne UP PLAN] Future Scheduled 2021-04-05 ZOSTER VACCINE (1 of [facility] Test 13:19:08 2) [code = ZOSTER of Medicin e VACCINE (1 of 2)] Future Scheduled 2021-04-05 MEDICARE AWV [facility] Test 13:19:08 (Initial) [code = of Medicin e MEDICARE AWV (Initial)] Future Scheduled 2021-04-05 Abdominal aortic [facility] Test 13:19:08 aneurysm screening of Medici ne (procedure) [code = 427740045] Future Scheduled 2021-04-05 FALL SCREEN [code = [facility] Test 13:19:08 FALL SCREEN] of Medicine Future Scheduled 2021-04-05 PNEUMOVAX >=65 [facility] Co [facility] Test 13:19:08 (PPSV23) [code = of Medicine PNEUMOVAX >=65 (PPSV23)] Future Scheduled 2021-04-05 FLU VACCINE > 6 [facility] C [facility]lege Test 13:19:08 MONTHS [code = FLU of Medici ne VACCINE > 6 MONTHS] Future Scheduled 2021-02-28 COVID-19 VACCINE ([address] [facility] Test 00:00:00 - Booster for Pfizer Medical Center series) [code = COVID-19 VACCINE (3 - Booster for Pfizer series)] Diagnostic Test 2020-05-19 PSA TOTAL(URO DEPT) Expected: [facility] Pending 00:00:00 [code = 2857-1] 05/19/2020 of Medicine (Approximate), Expires: 06/04/2020 Future Scheduled 2018-07-[address] [facility] Test 00:00:00 WELLNESS (YEAR 2 or Medical Center FIRST YEAR if no IPPE) [code = MEDICARE ANNUAL WELLNESS (YEAR 2 or FIRST YEAR if no IPPE)] Future Scheduled 2017 PNEUMOCOCCAL 65+ YRS [facility] Test 00:00:00 (1 - PCV) [code = Medical Ce nter PNEUMOCOCCAL 65+ YRS (1 - PCV)] Future Scheduled 2002 SHINGLES VACCINES ([address] [facility] Test 00:00:00 of 2) [code = Medical Center SHINGLES VACCINES (1 of 2)] Future Scheduled 1971 DTAP/TDAP/TD [facility] Test 00:[facility]:00 VACCINES (1 - Tdap) Medical Center [code = DTAP/TDAP/TD VACCINES (1 - Tdap)] Future Scheduled [address] [facility] Test 00:00:00 SCREENING [code = Medical Ce nter HEPATITIS C SCREENING] Future Scheduled [address] [facility] Test 00:00:00 (combo) [code = CT Medical C enter Colonography (combo)] Future Scheduled [address] [facility] Test 00:00:00 malignant neoplasm Medical C enter of colon (procedure) [code = 903441962] Future Scheduled [address] [facility] Test 00:00:00 malignant neoplasm Medical C enter of colon (procedure) [code = 896258942] Future Scheduled [address] [facility] [facility] Test 00:00:00 malignant neoplasm Medical C enter of colon (procedure) [code = 384795484] Future Scheduled [address] [facility] Test 00:00:00 malignant neoplasm Medical C enter of colon (procedure) [code = 970948584] Future Scheduled 1950 Sigmoidoscopy [code [facility] Test 00:00:00 = Sigmoidoscopy] Medical [place] [address] Future Scheduled COLON CANCER [facility] [employer] Test SCREENING: of Medicine COLONOSCOPY [code = COLON CANCER SCREENING: COLONOSCOPY] Future Scheduled TETANUS SHOT (ADULT) [employer] Test [code = TETANUS SHOT of Medi cine (ADULT)] Future Scheduled BMI FOLLOW UP PLAN [facility] Test [code = BMI FOLLOW of Medici ne UP PLAN] Future Scheduled ZOSTER VACCINE (1 of [facility] Test 2) [code = ZOSTER of Medicin e VACCINE (1 of 2)] Future Scheduled MEDICARE AWV [facility] [employer] Test (Initial) [code = of Medicin e MEDICARE AWV (Initial)] Future Scheduled AAA Screen [code = [employer] AAA Screen] of Medicine Future Scheduled FALL SCREEN [code = [employer] Test FALL SCREEN] of Medicine Future Scheduled PNEUMOVAX >=65 [facility] [employer] Test (PPSV23) [code = of Medicine PNEUMOVAX >=65 (PPSV23)] Future Scheduled FLU VACCINE > 6 [facility] C ollege Test MONTHS [code = FLU of Medici ne VACCINE > 6 MONTHS] Future Scheduled URINALYSIS W REFLEX Ordered: [employer] Test MICRO [code = NOCPT] 10/07/2020 of Medi cine Future Scheduled Screening for [facility] Col [employer]ge Test malignant neoplasm of Medici ne of colon (procedure) [code = 017209674] Future Scheduled TETANUS SHOT (ADULT) [employer] Test [code = TETANUS SHOT of Medi cine (ADULT)] Future Scheduled BMI FOLLOW UP PLAN [employer] Test [code = BMI FOLLOW of Medici ne UP PLAN] Future Scheduled ZOSTER VACCINE (1 of [employer] Test 2) [code = ZOSTER of Medicin e VACCINE (1 of 2)] Future Scheduled MEDICARE AWV [facility] [employer] Test (Initial) [code = of Medicin e MEDICARE AWV (Initial)] Future Scheduled Abdominal aortic [facility] [employer] Test aneurysm screening of Medici ne (procedure) [code = 219784320] Future Scheduled FALL SCREEN [code = [employer] Test FALL SCREEN] of Medicine Future Scheduled PNEUMOVAX >=65 [facility] [employer] Test (PPSV23) [code = of Medicine PNEUMOVAX >=65 (PPSV23)] Future Scheduled FLU VACCINE > 6 [facility] C [facility]lege Test MONTHS [code = FLU of Medici ne VACCINE > 6 MONTHS] Future Scheduled RANDOM URINE Ordered: [facility] [employer] Test PROTEIN/CREATININE 04/05/2020 of Medici ne [code = 2890-2] Future Scheduled URINALYSIS AUTO Ordered: [facility] C [employer]lege Test W/SCOPE [code = 04/05/2020 of Medicine 42877-6] Future Scheduled COLON CANCER [facility] [employer] Test SCREENING: of Medicine COLONOSCOPY [code = COLON CANCER SCREENING: COLONOSCOPY] Future Scheduled TETANUS SHOT (ADULT) [employer] Test [code = TETANUS SHOT of Medi cine (ADULT)] Future Scheduled ZOSTER VACCINE (1 of [employer] Test 2) [code = ZOSTER of Medicin e VACCINE (1 of 2)] Future Scheduled MEDICARE AWV [facility] [employer] Test (Initial) [code = of Medicin e MEDICARE AWV (Initial)] Future Scheduled AAA Screen [code = [facility] Test AAA Screen] of Medicine Future Scheduled FALL SCREEN [code = [facility] or [facility] Test FALL SCREEN] of Medicine Future Scheduled PNEUMOVAX >=65 [facility] [employer] Test (PPSV23) [code = of Medicine PNEUMOVAX >=65 (PPSV23)] Future Scheduled FLU VACCINE > 6 [facility] C [facility]lege Test MONTHS [code = FLU of Medici ne VACCINE > 6 MONTHS] Future Scheduled MRI ABDOMEN WO 1 Occurrences [facility] C [facility]lege Test CONTRAST [code = starting of Medicine 54760-0] 05/05/2020 until 11/28/2020 Future Scheduled XR CHEST PA AND 1 Occurrences [facility] Test LATERAL [code = starting of Medicine 24210-9] 05/05/2020 until 11/28/2020 Encounters Start End Encounter Admission Attending Care Care Encounter Source Date/Time Date/Time Type Type Clinicians Facility Department ID 2021-08-08 2021-08-08 Office LILLIANA Fong [id number] [facility] 13:40:00 14:52:39 Visit [facility] AMBULATOR 350.1.13.21 [employer] Y 0.2.7.2.686 of [id number] [facility] 335 e 2021-04-05 2021-04-05 Office LILLIANA Fong [id number] [facility] 13:14:21 13:46:44 Visit [employer] AMBULATOR 350.1.13.21 College Y 0.2.7.2.686 of [id number] [facility] 335 e 2020-10-07 2020-10-07 Office NIDHI Larkin [id number] [facility] 14:37:10 16:35:39 Visit Demetrius Kholer AMBULATOR 350.1.13.21 College Y 0.2.7.2.686 of [id number] [facility] 300 e 2020-05-25 2020-05-25 Outpatient [facility] [id number] [facility] 00:00:00 00:00:00 DEMETRIUS 2020-05-25 2020-05-25 Outpatient [facility] [id number] 00:00:00 00:00:00 DEMETRIUS 2020-05-05 2020-05-05 Office LILLIANA Larkin [id number] [facility] 08:40:26 09:26:13 Visit Demetrius Kohler AMBULATOR 350.1.13.21 College Y 0.2.7.2.686 of [id number] [facility] 300 e 2020-04-05 2020-04-05 Office LILLIANA Fong [id number] [facility] 12:38:08 16:49:05 Visit [employer] AMBULATOR 350.1.13.21 College Y 0.2.7.2.686 of [id number] [facility] 335 e 2020-03-02 2020-03-02 Outpatient [facility] [id number] [facility] 00:00:00 00:00:00 Results Test Description Test Time Test Comments Results Result Comments Source POCT URINALYSIS DIPSTICK 2020-10-07 00:00:00 Test Item Value Reference Range Interpretation Comme nts COLOR UA (test code = 5778-6) Yellow YELLOW/STRAW CLARITY UA (test code = 10910-7) Clear CLEAR GLUCOSE UA (test code = 5792-7) Negative NEGATIVE BILIRUBIN UA (test code = 5770-3) Negative NEGATIVE KETONES UA (test code = 00557-7) Negative NEGATIVE SPECIFIC GRAVITY UA (test code = 5811-5) 1.005-1.035 BLOOD UA (test code = 5794-3) Hemolyzed Trace NEGATIVE PH UA (test code = 5803-2) 5.0-9.0 PROTEIN UA (test code = 5804-0) 4+ NEGATIVE UROBILINOGEN UA (test code = 5818-0) 0.02 E.U/DL NORMAL MG/DL LEUKOCYTE ESTERASE UA (test code = 5799-2) Negative NEGATIVE NITRITE UA (test code = 5802-4) Negative NEGATIVE REDUCING SUBSTANCES URINE (test code = 77515-6) [facility], [facility] [id number] 16:51:00 Unlisted Reason for Exam - Click Yes and Enter Reason Below->YesUnlisted Reason for Exam->[facility] 1950 Sex: MFINAL REPORT TECHNIQUE: MRI of the abdomen WITHOUT intravenous contrast. INDICATION: Unlisted Reason for ExamPersonal history of kidney cancer. COMPARISON: MRI from 12/02/2018. FINDINGS: LOWER THORAX: Unremarkable. LIVER: No hepatic signal abnormality. Multiple cysts in the liver measure up to 0.4 cm. BILIARY: Gallbladder is unremarkable. The irregularity of the common bile duct is unchanged. This could be artifactual, due to volume averaging and a low medial insertion of the cystic duct. SPLEEN: No splenomegaly.PANCREAS: No focal masses or ductal dilatation. ADRENALS: No adrenal nodules.KIDNEYS/URETERS: Prior left nephrectomy. No right hydronephrosis or solid mass lesions. Thereare multiple right renal cysts which measure up to 1.47 m in the right upper pole. This 1.4 cm renalcyst previously measured 1.3 cm and has internal material which is hypointense on T2-weighted imaging and intermediate intensity on T1-weighted imaging. An additional right upper pole renal cyst with asingle thin internal septation measures 1.4 cm, previously 1.3 cm. PERITONEUM/RETROPERITONEUM: Small volume free fluid in the pelvis.LYMPH NODES: No lymphadenopathy.VESSELS: Plaque in the infrarenal abdominal aorta GI TRACT: No distention or wall thickening. BONES AND SOFT TISSUES: A cyst in the left back is most likely a facet synovial cyst which measures 1.2 cm on series 10 image 34, similar to theprior. IMPRESSION: 1.Evaluation is suboptimal without intravenous contrast. However, the right renalcysts are similar to the prior examination. One of these is indeterminate intensity but most likely a hemorrhagic cyst. 2.No metastatic disease in the abdomen. Signed: Alo Paris MDReport Verified Date/Time: 05/25/2020 16:51:08 Reading Location: [facility] [address] [place] [address] Reading Room RAD, CHEST, 2 [id number] 10:10:00Reason for Exam:->[facility] : 1950 Sex: MFINAL REPORT EXAMINATION: RAD, CHEST, 2 VIEWS INDICATION: Personal history of kidney cancer COMPARISON: None FINDINGS:TUBES and LINES: Metallic vascular stent over the right upper chest. LUNGS: Lungs are well inflated. Lungs are clear. There is no evidence of pneumonia or pulmonary edema. PLEURA: No pleural effusion or pneumothorax. HEART AND MEDIASTINUM: Tortuous thoracic aorta. The cardiomediastinal silhouette is otherwise unremarkable. BONES AND SOFT TISSUES: No acute osseous lesion. Soft tissues are unremarkable. UPPER ABDOMEN: No free air under the diaphragm. IMPRESSION: No acute thoracic abnormality. Signed: Ariadne Ashby MDReport Verified Date/Time: 05/25/2020 10:10:41 Reading Location: [facility] Reading Room 1 B01.627 POCT URINALYSIS DIPSTICK 2020-05-05 00:00:00 Test Item Value Reference Range Interpretation Comments COLOR UA (test code = 5778-6) [place] YELLOW/STRAW CLARITY UA (test code = 53838-7) Clear CLEAR GLUCOSE UA (test code = 5792-7) Negative NEGATIVE BILIRUBIN UA (test code = 5770-3) Negative NEGATIVE KETONES UA (test code = 04391-2) Negative NEGATIVE SPECIFIC GRAVITY UA (test code = 1.005-1.035 5811-5) BLOOD UA (test code = 5794-3) Negative NEGATIVE PH UA (test code = 5803-2) 5-9 PROTEIN UA (test code = 5804-0) 3+ NEGATIVE UROBILINOGEN UA (test code = 0.02 E.U/DL NORMAL MG/DL 5818-0) LEUKOCYTE ESTERASE UA (test code Negative NEGATIVE = 5799-2) NITRITE UA (test code = 5802-4) Negative NEGATIVE REDUCING SUBSTANCES URINE (test code = 48498-4) [facility] [id number] 09:38:00Surgical Pathology Report Case: [id number] Authorizing Provider: Demetrius Larkin MD Collected: 10/09/2017 1652 Ordering Location: [facility] PERIOPERATIVE Received: 10/10/2017 0810 SERVICES Pathologist: Joyce [...] NODULE/PAPILLARY RENAL CELL CARCINOMA, TYPE 1, 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, 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 The assessment of nucleolar prominence as a single parameter is noted to correlate better with outcome than other nuclear parameters (size, shape) to assign a Dami grade. ("Urologic Surgical Pathology,"Janelle, third edition, 2014). Nuclear grade assigned in Synoptic portion of this report (tw, can include).This patient's previous biopsy from [facility], from 03/02/2017 (SS17- 1130) shows a core biopsy with features similar to those noted in this larger tumor. 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 Histologic Grade (WHO / ISUPGrade): G2: Nucleoli conspicuous and eosinophilic at 400x [...] Uninvolved by invasive carcinoma LYMPH NODES Regional LymphNodes: Number of Lymph Nodes Involved: 0 Number of Lymph Nodes Examined: 8 PATHOLOGIC STAGE CLASSIFICATION (pTNM, AJCC 8th Edition) Primary Tumor (pT): pT1b Regional Lymph Nodes (pN): pN0 ADDITIONAL FINDINGS Pathologic Findings in Nonneoplastic Kidney: Glomerular disease: arteriolonephrosclerosis, KW type lesions Pathologic Findings in Nonneoplastic Kidney: Tubulointerstitial disease: chronic inflammation, thyroidization Additional Pathological Findings: Cyst(s): Simple cortical cyst 50994 X 2, 91653 , 82254 x6Left renal massA. Retroperitoneal lymph node. B. [...] of the kidney shows a large, pale, pendleton- white mass, 5.5 x 5 x 4.5 cm, [...] hilar fat yields three possible pendleton-pink lymph nodesmeasuring up to 0.5 cm. Cross sections of [...] B8, B9, additional sections of mass and kidneyparenchyma; B10, grossly normal kidney parenchyma and cystic spaces. CG/ewSections show a papillary renal cell carcinoma, type I, with rather abundant papillae, and with cells with relatively small nuclei and only focally prominent nucleoli. Some solid regions are noted, not prominent. There are prominent macrophages, and only a small amount of myxoid stroma. No lymphovascular invasion is identified.A satellite nodule present in slide B7 show similar features, with a more prominent solid component.The tumor is not necrotic, does not exhibit psammoma bodies, and does not display hemorrhage. Although, on gross examination, some possible renal sinus regions contain tumor, microscopic sections show that an attenuated capsule is present in the sinus; no invasion of the renal sinus soft tissue or fatis noted on microscopic examination High-grade tumor (sarcomatoiid, etc.) or other types of tumor are not noted.The following special studies were performed on this case and the interpretation is incorporated in the diagnostic report above: AMACR,strongly positive; RCC marker, positive; AE1/AE3-positive; RICHARD and CK 7-focally positive; AV33-yujgxark CD10 equivocal, possibly focally positiveThe immunohistochemistry test was developed and its performance characteristics determined by [facility], Pathology Laboratory. It has not [...] qualified to perform high complexity clinical laboratory testing.BASIC METABOLIC [id number] 13:36:00 Test Item Value Reference Range Interpretation Comments SODIUM (BEAKER) 135 meq/L 136-145 L (test code = 381) POTASSIUM (BEAKER) 3.6 meq/L 3.5-5.1 (test code = 379) CHLORIDE (BEAKER) 98 meq/L 98-107 (test code = 382) CO2 (BEAKER) (test 22 meq/L 22-29 code = 355) BLOOD UREA NITROGEN 45 mg/dL 7-21 H (BEAKER) (test code = 354) CREATININE (BEAKER) 3.68 mg/dL 0.57-1.25 H (test code = 358) GLUCOSE RANDOM 157 mg/dL 70-105 H (BEAKER) (test code = 652) CALCIUM (BEAKER) 9.5 mg/dL 8.4-10.2 (test code = 697) EGFR (BEAKER) (test 20 mL/min/1.73 ESTIMA CARLOS GFR IS code = 1092) sq m NOT ACCURATE CREATININE CLEARANCE IN PREDICTING GLOMERULAR FILTRATION RATE . ESTIMATED GFR I S NOT APPLICABLE FOR DIALYSIS PATIEN TS. CBC W/PLT COUNT & AUTO [id number] 12:44:00 Test Item Value Reference Range Interpretation Comments WHITE BLOOD CELL COUNT (BEAKER) 5.0 K/ L 3.5-10.5 (test code = 775) RED BLOOD CELL COUNT (BEAKER) 4.98 M/ L 4.63-6.08 (test code = 761) HEMOGLOBIN (BEAKER) (test code = 14.6 GM/DL 13.7-17.5 410) HEMATOCRIT (BEAKER) (test code = 43.0 % 40.1-51.0 411) MEAN CORPUSCULAR VOLUME (BEAKER) 86.3 fL 79.0-92.2 (test code = 753) MEAN CORPUSCULAR HEMOGLOBIN 29.3 pg 25.7-32.2 (BEAKER) (test code = 751) MEAN CORPUSCULAR HEMOGLOBIN CONC 34.0 GM/DL 32.3-36.5 (BEAKER) (test code = 752) RED CELL DISTRIBUTION WIDTH 13.0 % 11.6-14.4 (BEAKER) (test code = 412) PLATELET COUNT (BEAKER) (test 252 K/CU MM 150-450 code = 756) MEAN PLATELET VOLUME (BEAKER) 9.7 fL 9.4-12.4 (test code = 754) NUCLEATED RED BLOOD CELLS 0 /100 WBC 0-0 (BEAKER) (test code = 413) NEUTROPHILS RELATIVE PERCENT 71 % (BEAKER) (test code = 429) LYMPHOCYTES RELATIVE PERCENT 18 % (BEAKER) (test code = 430) MONOCYTES RELATIVE PERCENT 9 % (BEAKER) (test code = 431) EOSINOPHILS RELATIVE PERCENT 1 % (BEAKER) (test code = 432) BASOPHILS RELATIVE PERCENT 1 % (BEAKER) (test code = 437) NEUTROPHILS ABSOLUTE COUNT 3.52 K/ L 1.78-5.38 (BEAKER) (test code = 670) LYMPHOCYTES ABSOLUTE COUNT 0.87 K/ L 1.32-3.57 L (BEAKER) (test code = 414) MONOCYTES ABSOLUTE COUNT (BEAKER) 0.46 K/ L 0.30-0.82 (test code = 415) EOSINOPHILS ABSOLUTE COUNT 0.05 K/ L 0.04-0.54 (BEAKER) (test code = 416) BASOPHILS ABSOLUTE COUNT (BEAKER) 0.05 K/ L 0.01-0.08 (test code = 417) IMMATURE GRANULOCYTES-RELATIVE 0 % 0-1 PERCENT (BEAKER) (test code = 2801) BASIC METABOLIC [id number] 15:02:00 Test Item Value Reference Range Interpretation Comments SODIUM (BEAKER) 132 meq/L 136-145 L (test code = 381) POTASSIUM (BEAKER) 3.8 meq/L 3.5-5.1 (test code = 379) CHLORIDE (BEAKER) 97 meq/L 98-107 L (test code = 382) CO2 (BEAKER) (test 24 meq/L 22-29 code = 355) BLOOD UREA NITROGEN 42 mg/dL 7-21 H (BEAKER) (test code = 354) CREATININE (BEAKER) 3.78 mg/dL 0.57-1.25 H (test code = 358) GLUCOSE RANDOM 108 mg/dL 70-105 H (BEAKER) (test code = 652) CALCIUM (BEAKER) 9.4 mg/dL 8.4-10.2 (test code = 697) EGFR (BEAKER) (test 20 mL/min/1.73 ESTIMA CARLOS GFR IS code = 1092) sq m NOT ACCURATE CREATININE CLEARANCE IN PREDICTING GLOMERULAR FILTRATION RATE . ESTIMATED GFR I S NOT APPLICABLE FOR DIALYSIS PATIEN TS. Please draw at 2:00pmBASIC METABOLIC [id number] 06:14:00 Test Item Value Reference Range Interpretation Comments SODIUM (BEAKER) 133 meq/L 136-145 L (test code = 381) POTASSIUM (BEAKER) 3.8 meq/L 3.5-5.1 (test code = 379) CHLORIDE (BEAKER) 100 meq/L 98-107 (test code = 382) CO2 (BEAKER) (test 23 meq/L 22-29 code = 355) BLOOD UREA NITROGEN 33 mg/dL 7-21 H (BEAKER) (test code = 354) CREATININE (BEAKER) 3.27 mg/dL 0.57-1.25 H (test code = 358) GLUCOSE RANDOM 87 mg/dL 70-105 (BEAKER) (test code = 652) CALCIUM (BEAKER) 9.0 mg/dL 8.4-10.2 (test code = 697) EGFR (BEAKER) (test 23 mL/min/1.73 ESTIMA CARLOS GFR IS code = 1092) sq m NOT ACCURATE CREATININE CLEARANCE IN PREDICTING GLOMERULAR FILTRATION RATE . ESTIMATED GFR I S NOT APPLICABLE FOR DIALYSIS PATIEN TS. [id number] 06:03:00 Test Item Value Reference Range Interpretation Comments PHOSPHORUS (BEAKER) (test code = 2.7 mg/dL 2.3-4.7 604) [id number] 06:03:00 Test Item Value Reference Range Interpretation Comments MAGNESIUM (BEAKER) (test code = 2.1 mg/dL 1.6-2.6 627) CBC W/PLT COUNT & AUTO [id number] 05:16:00 Test Item Value Reference Range Interpretation Comments WHITE BLOOD CELL COUNT (BEAKER) 6.7 K/ L 3.5-10.5 (test code = 775) RED BLOOD CELL COUNT (BEAKER) 4.59 M/ L 4.63-6.08 L (test code = 761) HEMOGLOBIN (BEAKER) (test code = 13.6 GM/DL 13.7-17.5 L 410) HEMATOCRIT (BEAKER) (test code = 39.8 % 40.1-51.0 L 411) MEAN CORPUSCULAR VOLUME (BEAKER) 86.7 fL 79.0-92.2 (test code = 753) MEAN CORPUSCULAR HEMOGLOBIN 29.6 pg 25.7-32.2 (BEAKER) (test code = 751) MEAN CORPUSCULAR HEMOGLOBIN CONC 34.2 GM/DL 32.3-36.5 (BEAKER) (test code = 752) RED CELL DISTRIBUTION WIDTH 13.2 % 11.6-14.4 (BEAKER) (test code = 412) PLATELET COUNT (BEAKER) (test 209 K/CU MM 150-450 code = 756) MEAN PLATELET VOLUME (BEAKER) 10.2 fL 9.4-12.4 (test code = 754) NUCLEATED RED BLOOD CELLS 0 /100 WBC 0-0 (BEAKER) (test code = 413) NEUTROPHILS RELATIVE PERCENT 71 % (BEAKER) (test code = 429) LYMPHOCYTES RELATIVE PERCENT 16 % (BEAKER) (test code = 430) MONOCYTES RELATIVE PERCENT 12 % (BEAKER) (test code = 431) EOSINOPHILS RELATIVE PERCENT 1 % (BEAKER) (test code = 432) BASOPHILS RELATIVE PERCENT 0 % (BEAKER) (test code = 437) NEUTROPHILS ABSOLUTE COUNT 4.75 K/ L 1.78-5.38 (BEAKER) (test code = 670) LYMPHOCYTES ABSOLUTE COUNT 1.07 K/ L 1.32-3.57 L (BEAKER) (test code = 414) MONOCYTES ABSOLUTE COUNT (BEAKER) 0.77 K/ L 0.30-0.82 (test code = 415) EOSINOPHILS ABSOLUTE COUNT 0.06 K/ L 0.04-0.54 (BEAKER) (test code = 416) BASOPHILS ABSOLUTE COUNT (BEAKER) 0.03 K/ L 0.01-0.08 (test code = 417) IMMATURE GRANULOCYTES-RELATIVE 0 % 0-1 PERCENT (BEAKER) (test code = 2801) IRON, TIBC, % SAT. (WITHOUT FERRITIN)2017-10-11 06:55:00 Test Item Value Reference Range Interpretation Comments IRON (BEAKER) (test code = 547) 49 ug/dL 40-160 TOTAL IRON BINDING CAPACITY 236 ug/dL 250-450 L (BEAKER) (test code = 769) IRON % SATURATION (2) (BEAKER) 21 % 20-55 (test code = 2590) BASIC METABOLIC [id number] 05:41:00 Test Item Value Reference Range Interpretation Comments SODIUM (BEAKER) 136 meq/L 136-145 (test code = 381) POTASSIUM (BEAKER) 3.7 meq/L 3.5-5.1 (test code = 379) CHLORIDE (BEAKER) 102 meq/L 98-107 (test code = 382) CO2 (BEAKER) (test 22 meq/L 22-29 code = 355) BLOOD UREA NITROGEN 25 mg/dL 7-21 H (BEAKER) (test code = 354) CREATININE (BEAKER) 2.84 mg/dL 0.57-1.25 H (test code = 358) GLUCOSE RANDOM 99 mg/dL 70-105 (BEAKER) (test code = 652) CALCIUM (BEAKER) 9.4 mg/dL 8.4-10.2 (test code = 697) EGFR (BEAKER) (test 27 mL/min/1.73 ESTIMA CARLOS GFR IS code = 1092) sq m NOT ACCURATE CREATININE CLEARANCE IN PREDICTING GLOMERULAR FILTRATION RATE . ESTIMATED GFR I S NOT APPLICABLE FOR DIALYSIS PATIEN TS. [id number] 05:36:00 Test Item Value Reference Range Interpretation Comments PHOSPHORUS (BEAKER) (test code = 2.8 mg/dL 2.3-4.7 604) [id number] 05:36:00 Test Item Value Reference Range Interpretation Comments MAGNESIUM (BEAKER) (test code = 2.2 mg/dL 1.6-2.6 627) PTH, [id number] 05:33:00 Test Item Value Reference Range Interpretation Comments PARATHYROID HORMONE INTACT 212.3 pg/mL 8.5-72.5 H (BEAKER) (test code = 577) CBC W/PLT COUNT & AUTO [id number] 05:02:00 Test Item Value Reference Range Interpretation Comments WHITE BLOOD CELL COUNT (BEAKER) 8.8 K/ L 3.5-10.5 (test code = 775) RED BLOOD CELL COUNT (BEAKER) 4.89 M/ L 4.63-6.08 (test code = 761) HEMOGLOBIN (BEAKER) (test code = 14.5 GM/DL 13.7-17.5 410) HEMATOCRIT (BEAKER) (test code = 42.6 % 40.1-51.0 411) MEAN CORPUSCULAR VOLUME (BEAKER) 87.1 fL 79.0-92.2 (test code = 753) MEAN CORPUSCULAR HEMOGLOBIN 29.7 pg 25.7-32.2 (BEAKER) (test code = 751) MEAN CORPUSCULAR HEMOGLOBIN CONC 34.0 GM/DL 32.3-36.5 (BEAKER) (test code = 752) RED CELL DISTRIBUTION WIDTH 13.5 % 11.6-14.4 (BEAKER) (test code = 412) PLATELET COUNT (BEAKER) (test 205 K/CU MM 150-450 code = 756) MEAN PLATELET VOLUME (BEAKER) 9.9 fL 9.4-12.4 (test code = 754) NUCLEATED RED BLOOD CELLS 0 /100 WBC 0-0 (BEAKER) (test code = 413) NEUTROPHILS RELATIVE PERCENT 76 % (BEAKER) (test code = 429) LYMPHOCYTES RELATIVE PERCENT 13 % (BEAKER) (test code = 430) MONOCYTES RELATIVE PERCENT 9 % (BEAKER) (test code = 431) EOSINOPHILS RELATIVE PERCENT 0 % (BEAKER) (test code = 432) BASOPHILS RELATIVE PERCENT 1 % (BEAKER) (test code = 437) NEUTROPHILS ABSOLUTE COUNT 6.68 K/ L 1.78-5.38 H (BEAKER) (test code = 670) LYMPHOCYTES ABSOLUTE COUNT 1.17 K/ L 1.32-3.57 L (BEAKER) (test code = 414) MONOCYTES ABSOLUTE COUNT (BEAKER) 0.82 K/ L 0.30-0.82 (test code = 415) EOSINOPHILS ABSOLUTE COUNT 0.02 K/ L 0.04-0.54 L (BEAKER) (test code = 416) BASOPHILS ABSOLUTE COUNT (BEAKER) 0.05 K/ L 0.01-0.08 (test code = 417) IMMATURE GRANULOCYTES-RELATIVE 0 % 0-1 PERCENT (BEAKER) (test code = 2801) [id number] 06:36:00 Test Item Value Reference Range Interpretation Comments PHOSPHORUS (BEAKER) (test code = 2.4 mg/dL 2.3-4.7 604) [id number] 06:36:00 Test Item Value Reference Range Interpretation Comments MAGNESIUM (BEAKER) (test code = 1.8 mg/dL 1.6-2.6 627) BASIC METABOLIC [id number] 06:36:00 Test Item Value Reference Range Interpretation Comments SODIUM (BEAKER) 137 meq/L 136-145 (test code = 381) POTASSIUM (BEAKER) 3.6 meq/L 3.5-5.1 (test code = 379) CHLORIDE (BEAKER) 103 meq/L 98-107 (test code = 382) CO2 (BEAKER) (test 19 meq/L 22-29 L code = 355) BLOOD UREA NITROGEN 22 mg/dL 7-21 H (BEAKER) (test code = 354) CREATININE (BEAKER) 2.53 mg/dL 0.57-1.25 H (test code = 358) GLUCOSE RANDOM 148 mg/dL 70-105 H (BEAKER) (test code = 652) CALCIUM (BEAKER) 9.3 mg/dL 8.4-10.2 (test code = 697) EGFR (BEAKER) (test 31 mL/min/1.73 ESTIMA CARLOS GFR IS code = 1092) sq m NOT ACCURATE CREATININE CLEARANCE IN PREDICTING GLOMERULAR FILTRATION RATE . ESTIMATED GFR I S NOT APPLICABLE FOR DIALYSIS PATIEN TS. CBC W/PLT COUNT & AUTO [id number] 05:59:00 Test Item Value Reference Range Interpretation Comments WHITE BLOOD CELL COUNT (BEAKER) 13.3 K/ L 3.5-10.5 H (test code = 775) RED BLOOD CELL COUNT (BEAKER) 5.12 M/ L 4.63-6.08 (test code = 761) HEMOGLOBIN (BEAKER) (test code = 14.8 GM/DL 13.7-17.5 410) HEMATOCRIT (BEAKER) (test code = 44.7 % 40.1-51.0 411) MEAN CORPUSCULAR VOLUME (BEAKER) 87.3 fL 79.0-92.2 (test code = 753) MEAN CORPUSCULAR HEMOGLOBIN 28.9 pg 25.7-32.2 (BEAKER) (test code = 751) MEAN CORPUSCULAR HEMOGLOBIN CONC 33.1 GM/DL 32.3-36.5 (BEAKER) (test code = 752) RED CELL DISTRIBUTION WIDTH 13.4 % 11.6-14.4 (BEAKER) (test code = 412) PLATELET COUNT (BEAKER) (test 235 K/CU MM 150-450 code = 756) MEAN PLATELET VOLUME (BEAKER) 10.8 fL 9.4-12.4 (test code = 754) NUCLEATED RED BLOOD CELLS 0 /100 WBC 0-0 (BEAKER) (test code = 413) NEUTROPHILS RELATIVE PERCENT 93 % (BEAKER) (test code = 429) LYMPHOCYTES RELATIVE PERCENT 3 % (BEAKER) (test code = 430) MONOCYTES RELATIVE PERCENT 3 % (BEAKER) (test code = 431) EOSINOPHILS RELATIVE PERCENT 0 % (BEAKER) (test code = 432) BASOPHILS RELATIVE PERCENT 0 % (BEAKER) (test code = 437) NEUTROPHILS ABSOLUTE COUNT 12.42 K/ L 1.78-5.38 H (BEAKER) (test code = 670) LYMPHOCYTES ABSOLUTE COUNT 0.39 K/ L 1.32-3.57 L (BEAKER) (test code = 414) MONOCYTES ABSOLUTE COUNT (BEAKER) 0.43 K/ L 0.30-0.82 (test code = 415) EOSINOPHILS ABSOLUTE COUNT 0.00 K/ L 0.04-0.54 L (BEAKER) (test code = 416) BASOPHILS ABSOLUTE COUNT (BEAKER) 0.04 K/ L 0.01-0.08 (test code = 417) IMMATURE GRANULOCYTES-RELATIVE 0 % 0-1 PERCENT (BEAKER) (test code = 2801) [id number] 19:38:00 Test Item Value Reference Range Interpretation Comments PHOSPHORUS (BEAKER) (test code = 2.8 mg/dL 2.3-4.7 604) [id number] 19:38:00 Test Item Value Reference Range Interpretation Comments MAGNESIUM (BEAKER) (test code = 1.7 mg/dL 1.6-2.6 627) BASIC METABOLIC [id number] 19:35:00 Test Item Value Reference Range Interpretation Comments SODIUM (BEAKER) 139 meq/L 136-145 (test code = 381) POTASSIUM (BEAKER) 3.7 meq/L 3.5-5.1 (test code = 379) CHLORIDE (BEAKER) 109 meq/L 98-107 H (test code = 382) CO2 (BEAKER) (test 20 meq/L 22-29 L code = 355) BLOOD UREA NITROGEN 18 mg/dL 7-21 (BEAKER) (test code = 354) CREATININE (BEAKER) 2.10 mg/dL 0.57-1.25 H (test code = 358) GLUCOSE RANDOM 148 mg/dL 70-105 H (BEAKER) (test code = 652) CALCIUM (BEAKER) 8.7 mg/dL 8.4-10.2 (test code = 697) EGFR (BEAKER) (test 39 mL/min/1.73 ESTIMA CARLOS GFR IS code = 1092) sq m NOT ACCURATE CREATININE CLEARANCE IN PREDICTING GLOMERULAR FILTRATION RATE . ESTIMATED GFR I S NOT APPLICABLE FOR DIALYSIS PATIEN TS. HEMOGLOBIN AND [id number] 19:07:00 Test Item Value Reference Range Interpretation Comments HEMOGLOBIN (BEAKER) (test code = 13.7 GM/DL 13.7-17.5 410) HEMATOCRIT (BEAKER) (test code = 40.5 % 40.1-51.0 411) URINE [id number] 13:12:00 Test Item Value Reference Range Interpretation Comments CULTURE (BEAKER) (test code = 1095) No growth BASIC METABOLIC [id number] 17:19:00 Test Item Value Reference Range Interpretation Comments SODIUM (BEAKER) 138 meq/L 136-145 (test code = 381) POTASSIUM (BEAKER) 4.4 meq/L 3.5-5.1 Specimen slightly (test code = 379) hemolyzed CHLORIDE (BEAKER) 103 meq/L 98-107 (test code = 382) CO2 (BEAKER) (test 27 meq/L 22-29 code = 355) BLOOD UREA NITROGEN 19 mg/dL 7-21 (BEAKER) (test code = 354) CREATININE (BEAKER) 2.11 mg/dL 0.57-1.25 H Specimen slightly (test code = 358) hemolyzed GLUCOSE RANDOM 98 mg/dL 70-105 (BEAKER) (test code = 652) CALCIUM (BEAKER) 9.6 mg/dL 8.4-10.2 (test code = 697) EGFR (BEAKER) (test 38 mL/min/1.73 ESTIMA CARLOS GFR IS code = 1092) sq m NOT ACCURATE CREATININE CLEARANCE IN PREDICTING GLOMERULAR FILTRATION RATE . ESTIMATED GFR I S NOT APPLICABLE FOR DIALYSIS PATIEN TS. URINALYSIS W/ [id number] 17:15:00 Test Item Value Reference Range Interpretation Comments COLOR (BEAKER) (test code = 470) Yellow CLARITY (BEAKER) (test code = 469) Clear SPECIFIC GRAVITY UA (BEAKER) (test 1.013 1.001-1.035 code = 468) PH UA (BEAKER) (test code = 467) 6.0 5.0-8.0 PROTEIN UA (BEAKER) (test code = 100 mg/dL Negative A 464) GLUCOSE UA (BEAKER) (test code = Negative Negative 365) KETONES UA (BEAKER) (test code = Negative Negative 371) BILIRUBIN UA (BEAKER) (test code = Negative Negative 462) BLOOD UA (BEAKER) (test code = 461) Trace Negative A NITRITE UA (BEAKER) (test code = Negative Negative 465) LEUKOCYTE ESTERASE UA (BEAKER) Negative Negative (test code = 466) UROBILINOGEN UA (BEAKER) (test code 0.2 mg/dL 0.2-1.0 = 463) RBC UA (BEAKER) (test code = 519) 7 /HPF WBC UA (BEAKER) (test code = 520) 2 /HPF MUCUS (BEAKER) (test code = 1574) Rare SOURCE(BEAKER) (test code = 2795) [id number] 17:07:00 Test Item Value Reference Range Interpretation Comments PARTIAL THROMBOPLASTIN TIME 28.1 seconds 22.5-36.0 (BEAKER) (test code = 760) PROTHROMBIN [id number] 17:06:00 Test Item Value Reference Range Interpretation Comments PROTIME (BEAKER) (test code = 13.6 seconds 11.7-14.7 759) INR (BEAKER) (test code = 370) 1.0 <=5.9 RECOMMENDED COUMADIN/WARFARIN INR THERAPY RANGESSTANDARD DOSE: 2.0 - 3.0 Includes: PROPHYLAXIS for venous thrombosis, systemic embolization; TREATMENT for venous thrombosis and/or pulmonary embolus.HIGH RISK: Target INR is 2.5-3.5 for patients with mechanical heart valves.CBC W/PLT COUNT & AUTO [id number] 16:53:00 Test Item Value Reference Range Interpretation Comments WHITE BLOOD CELL COUNT (BEAKER) 4.1 K/ L 3.5-10.5 (test code = 775) RED BLOOD CELL COUNT (BEAKER) 4.79 M/ L 4.63-6.08 (test code = 761) HEMOGLOBIN (BEAKER) (test code = 13.8 GM/DL 13.7-17.5 410) HEMATOCRIT (BEAKER) (test code = 42.2 % 40.1-51.0 411) MEAN CORPUSCULAR VOLUME (BEAKER) 88.1 fL 79.0-92.2 (test code = 753) MEAN CORPUSCULAR HEMOGLOBIN 28.8 pg 25.7-32.2 (BEAKER) (test code = 751) MEAN CORPUSCULAR HEMOGLOBIN CONC 32.7 GM/DL 32.3-36.5 (BEAKER) (test code = 752) RED CELL DISTRIBUTION WIDTH 13.2 % 11.6-14.4 (BEAKER) (test code = 412) PLATELET COUNT (BEAKER) (test 188 K/CU MM 150-450 code = 756) MEAN PLATELET VOLUME (BEAKER) 10.3 fL 9.4-12.4 (test code = 754) NUCLEATED RED BLOOD CELLS 0 /100 WBC 0-0 (BEAKER) (test code = 413) NEUTROPHILS RELATIVE PERCENT 49 % (BEAKER) (test code = 429) LYMPHOCYTES RELATIVE PERCENT 36 % (BEAKER) (test code = 430) MONOCYTES RELATIVE PERCENT 12 % (BEAKER) (test code = 431) EOSINOPHILS RELATIVE PERCENT 2 % (BEAKER) (test code = 432) BASOPHILS RELATIVE PERCENT 1 % (BEAKER) (test code = 437) NEUTROPHILS ABSOLUTE COUNT 2.00 K/ L 1.78-5.38 (BEAKER) (test code = 670) LYMPHOCYTES ABSOLUTE COUNT 1.47 K/ L 1.32-3.57 (BEAKER) (test code = 414) MONOCYTES ABSOLUTE COUNT (BEAKER) 0.49 K/ L 0.30-0.82 (test code = 415) EOSINOPHILS ABSOLUTE COUNT 0.07 K/ L 0.04-0.54 (BEAKER) (test code = 416) BASOPHILS ABSOLUTE COUNT (BEAKER) 0.03 K/ L 0.01-0.08 (test code = 417) IMMATURE GRANULOCYTES-RELATIVE 0 % 0-1 PERCENT (BEAKER) (test code = 2801) TISSUE [id number] 11:47:00Surgical Pathology Report Case: [id number] Authorizing Provider: Farzad Jackson Collected: 03/02/2017 1029 MD Cinthia Ordering Location: [facility] Diagnostic Imaging Received: 03/02/2017 1140 Pathologis t: Jenniffer Weber MD Specimen: Kidney, Left KIDNEY, LEFT, BIOPSY: - RENAL CELL CARCINOMA(SEE COMMENT) The tumoris composed of eosinophilic cells forming tubules with interspersed stromal mucin. Focal foamy macrophages are noted. The differential diagnosis includes papillary renal cell carcinoma and mucinous tubular and spindle cell carcinoma. Recommend complete excision of the lesion for a more definitive diagnosis. These results were relayed to Dr. Currie on 03/06/2017 at 11:40 am. Intradepartmental consultation: Dr. Koko Whitney, Dr. Umu Manzanares/[id number], [id number], [id number] x2Left kidney [facility] specimen is received in fixative and designated as "tissue exam", consists of multiple white-pendleton tissue cores ranging in size from 0.1 to 0.8 cm in greatest dimension. All tissue cores are submitted into A1. MG/ew Performed The following special studies were performed on this case with appropriate and reactive controls and the interpretation is incorporated in the diagnostic report above:AE1/AE3: PositiveCK7: Positive (focal)AMACR: PositiveThe immunohistochemistry test was developed and its performance characteristics determined by [facility], Pathology Laboratory. It has notbeen cleared or approved by the U.S. Food and Drug Administration. The FDA has determined that such clearance or approval is not necessary. The test is used for clinical purposes. It should not be regarded as investigational or for research. This laboratory is certified under the Clinical Laboratory Improvement Amendments of 1988 (CLIA-88) as qualified to perform high complexity clinical laboratory testing.[id number] 08:19:00 Test Item Value Reference Range Interpretation Comments PROTIME (BEAKER) (test code = 10.0 seconds 9.3-12.0 759) INR (BEAKER) (test code = 370) 0.9 <=5.9 PARTIAL THROMBOPLASTIN TIME 27.3 seconds 23.0-35.0 (BEAKER) (test code = 760) RECOMMENDED COUMADIN/WARFARIN INR THERAPY RANGESSTANDARD DOSE: 2.0 - 3.0 Includes: PROPHYLAXIS for venous thrombosis, systemic embolization; TREATMENT for venous thrombosis and/or pulmonary embolus.HIGH RISK: Target INR is 2.5-3.5 for patients with mechanical heart valves.CBC W/PLT COUNT & AUTO [id number] 08:14:00 Test Item Value Reference Range Interpretation Comments WHITE BLOOD CELL COUNT (BEAKER) 4.3 K/ L 4.0-10.0 (test code = 775) RED BLOOD CELL COUNT (BEAKER) 4.76 M/ L 4.20-5.80 (test code = 761) HEMOGLOBIN (BEAKER) (test code = 14.1 GM/DL 13.0-16.8 410) HEMATOCRIT (BEAKER) (test code = 41.7 % 40.0-50.0 411) MEAN CORPUSCULAR VOLUME (BEAKER) 87.6 fL 82.0-98.0 (test code = 753) MEAN CORPUSCULAR HEMOGLOBIN 29.7 pg 27.0-33.0 (BEAKER) (test code = 751) MEAN CORPUSCULAR HEMOGLOBIN CONC 33.9 GM/DL 32.0-36.0 (BEAKER) (test code = 752) RED CELL DISTRIBUTION WIDTH 12.9 % 10.3-14.2 (BEAKER) (test code = 412) PLATELET COUNT (BEAKER) (test 212 K/CU MM 150-430 code = 756) MEAN PLATELET VOLUME (BEAKER) 8.0 fL 6.5-10.5 (test code = 754) NUCLEATED RED BLOOD CELLS 0 /100 WBC 0-0 (BEAKER) (test code = 413) NEUTROPHILS RELATIVE PERCENT 57 % (BEAKER) (test code = 429) LYMPHOCYTES RELATIVE PERCENT 32 % (BEAKER) (test code = 430) MONOCYTES RELATIVE PERCENT 9 % (BEAKER) (test code = 431) EOSINOPHILS RELATIVE PERCENT 2 % (BEAKER) (test code = 432) BASOPHILS RELATIVE PERCENT 1 % (BEAKER) (test code = 437) NEUTROPHILS ABSOLUTE COUNT 2.50 K/ L 1.80-8.00 (BEAKER) (test code = 670) LYMPHOCYTES ABSOLUTE COUNT 1.40 K/ L 1.48-4.50 L (BEAKER) (test code = 414) MONOCYTES ABSOLUTE COUNT (BEAKER) 0.40 K/ L 0.00-1.30 (test code = 415) EOSINOPHILS ABSOLUTE COUNT 0.10 K/ L 0.00-0.50 (BEAKER) (test code = 416) BASOPHILS ABSOLUTE COUNT (BEAKER) 0.00 K/ L 0.00-0.20 (test code = 417)
--- NOTE | 2022-03-21 18:57 | RAD REPORT ---
EXAM DESCRIPTION: RAD - Chest Single View - 03/21/2022 6:25 pm CLINICAL HISTORY: pain COMPARISON: Chest Single View dated 05/08/2019; Chest Single View dated 03/27/2019; Chest Single View dated 01/20/2019; CHEST SINGLE VIEW dated 02/21/2013 FINDINGS: Lines: None. Lungs: No evidence of edema or pneumonia. Pleural: No significant pleural effusions or pneumothorax. Cardiac: Cardiomegaly. Mediastinum: Within normal limits. Bones: No acute fractures. Other: Vascular stent overlying the right subclavian artery/vein. IMPRESSION: No acute cardiopulmonary disease.
--- NOTE | 2022-03-21 19:00 | RAD REPORT ---
EXAM DESCRIPTION: RAD - Ribs Right - 03/21/2022 6:27 pm CLINICAL HISTORY: pain COMPARISON: Chest Single View dated 03/21/2022 FINDINGS/IMPRESSION: No displaced right sided rib fractures are identified. No pneumothorax.
--- NOTE | 2022-03-21 19:13 | ER ---
Nurse's Notes [facility] Name: Aravind Low Age: 71 yrs Sex: Male : 1950 Arrival Date: 03/21/2022 Time: 16:27 Bed 20 Private MD: Diagnosis: Fall on same level from slipping, tripping and stumbling without subsequent striking against object;Upper right back pain - resolved Presentation: 03/21 17:00 Chief complaint: Patient states: I fell from standing yesterday - hit my back on the ld1 stairs. Denies hitting head, negative LOC. Denies taking blood thinners. Pt reporting upper back pain. Pt states "My made me come to the ER - I don't hurt.". Coronavirus screen: At this time, the client does not indicate any symptoms associated with coronavirus-19. Ebola Screen: No symptoms or risks identified at this time. Initial Sepsis Screen: Does the patient meet any 2 criteria? No. Patient's initial sepsis screen is negative. Does the patient have a suspected source of infection? No. Patient's initial sepsis screen is negative. Risk Assessment: Do you want to hurt yourself or someone else? Patient reports no desire to harm self or others. Onset of symptoms was March 21, 2022. 17:00 Method Of Arrival: Wheelchair ld1 17:00 Acuity: ANTONIO 4 ld1 Triage Assessment: 17:00 General: Appears in no apparent distress. comfortable, Behavior is calm, cooperative, ld1 appropriate for age. Pain: Complains of pain in back Pain does not radiate. Pain currently is 0 out of 10 on a pain scale. at worst was 5 out of 10 on a pain scale. Quality of pain is described as throbbing. EENT: No signs and/or symptoms were reported regarding the EENT system. Neuro: Level of Consciousness is awake, alert, obeys commands, Oriented to person, place, time, situation, Appropriate for age. Cardiovascular: Capillary refill < 3 seconds Patient's skin is warm and dry. Respiratory: Airway is patent Respiratory effort is even, unlabored. GI: Abdomen is flat, non-distended. : No signs and/or symptoms were reported regarding the genitourinary system. Derm: No signs and/or symptoms reported regarding the dermatologic system. Musculoskeletal: No signs and/or symptoms reported regarding the musculoskeletal system. Historical: - Allergies: 17:00 No Known Allergies; ld1 - PMHx: 17:00 CVA; ESRD; Hypertension; Gout; ld1 - PSHx: 17:00 None; ld1 - Immunization history:: Adult Immunizations up to date, Client reports receiving the 2nd dose of the Covid vaccine. - Social history:: Smoking status: Patient reports the use of cigarette tobacco products, smokes one-half pack cigarettes per day, Patient/guardian denies using alcohol. Screenin:27 Abuse screen: Denies threats or abuse. Denies injuries from another. Nutritional lg3 screening: No deficits noted. Tuberculosis screening: No symptoms or risk factors identified. Fall Risk Fall in past 12 months (25 points). Secondary diagnosis (15 points) impaired mobility, No IV (0 pts). Ambulatory Aid- Crutches/Cane/Walker (15 pts). Gait- Normal/Bed Rest/Wheelchair (0 pts) Mental Status- Oriented to own ability (0 pts). Total Mar Fall Scale indicates High Risk Score (45 or more points). Fall prevention measures have been instituted. Side Rails Up X 2 Frequent Obs/Assessments Occuring Family Present and informed to notify staff if the need to leave the bedside As available patient and family educated on Fall Prevention Program and Strategies. Assessment: 17:04 Reassessment: Provider assessing pt in triage. Pt reporting no pain - states "My family ld1 made me come, but I am not hurting.". 18:33 General: Appears in no apparent distress. comfortable, Behavior is calm, cooperative. tp1 General: laying in stretcher on left side . Pain: Complains of pain in back Pain currently is 8 out of 10 on a pain scale. Pain began 1 day ago. Neuro: Level of Consciousness is awake, alert, obeys commands, Oriented to person, place, time, situation. Cardiovascular: Patient's skin is warm and dry. Respiratory: Airway is patent Respiratory effort is even, unlabored. GI: No signs and/or symptoms were reported involving the gastrointestinal system. : No signs and/or symptoms were reported regarding the genitourinary system. EENT: No signs and/or symptoms were reported regarding the EENT system. Derm: Skin is pink, warm \\T\\ dry. Musculoskeletal: Circulation, motion, and sensation intact. Vital Signs: 17:00 BP 149 / 92; Pulse 66; Resp 18; Temp 98.1(O); Pulse Ox 99% on R/A; Weight 72.57 kg; ld1 Height 5 ft. 2 in. (157.48 cm); Pain 5/10; 19:02 BP 186 / 89 RA; Pulse 50; Resp 16; Pulse Ox 100% on R/A; tp1 19:02 BP 192 / 99 LA; tp1 17:00 Body Mass Index 29.26 (72.57 kg, 157.48 cm) ld1 19:02 provider notified tp1 ED Course: 16:27 Patient arrived in ED. am2 16:30 Kenyetta Kruse FNP-C is [facility]. kb 16:30 Ovidio Díaz MD is Attending Physician. kb 17:00 Arm band placed on right wrist. ld1 17:02 Triage completed. ld1 18:24 Shilpi Hendrickson, EVELINA is Primary Nurse. tp1 19:27 Patient has correct armband on for positive identification. Bed in low position. Call lg3 light in reach. Side rails up X2. Client placed on continuous cardiac and pulse oximetry monitoring. NIBP monitoring applied. intelligence operations specialist on. Door closed. Noise minimized. Warm blanket given. Family accompanied patient. 19:27 No provider procedures requiring assistance completed. Patient did not have IV access lg3 during this emergency room visit. Administered Medications: No medications were administered Medication: 19:28 VIS not applicable for this client. lg3 Outcome: 19:12 Discharge ordered by MD. kb 19:27 Discharged to home via wheelchair, with family. lg3 19:27 Condition: stable 19:27 Discharge instructions given to patient, family, Instructed on discharge instructions, follow up and referral plans. Demonstrated understanding of instructions, follow-up care. 19:30 Patient left the ED. lg3 Signatures: Kenyetta Kruse FNP-C TELEPHONE MECHANIC-Rosalie Sanchez am2 Dhara Chávez RN RN lg3 Rose Stone RN RN ld1 Shilpi Hendrickson, EVELINA RN tp1 Corrections: (The following items were deleted from the chart) 17:05 17:04 Reassessment: Provider assessing pt in triage. ld1 ld1
--- NOTE | 2022-03-21 19:13 | EDPHYS ---
Physician Documentation [facility] Name: Aravind Low Age: 71 yrs Sex: Male : 1950 Arrival Date: 03/21/2022 Time: 16:27 Bed 20 Private MD: ED Physician Ovidio Díaz HPI: 03/21 20:10 This 71 yrs old Black Male presents to ER via Wheelchair with complaints of Fall Injury kb - yesterday, Back Pain. 20:10 Details of fall: The patient fell from an upright position, while walking. Onset: The kb symptoms/episode began/occurred yesterday. Associated injuries: The patient sustained right scapular area and right subscapular area, painful injury. Severity of symptoms: At their worst the symptoms were mild, in the emergency department the symptoms have resolved. The patient has not experienced similar symptoms in the past. The patient has not recently seen a physician. Pt reports he slipped and fell yesterday. States his made him come to the ER today. Pt denies any pain or injury. states pt was complaining of right upper back/rib pain when he was laying down today so she wanted him checked out. . Historical: - Allergies: 17:00 No Known Allergies; ld1 - PMHx: 17:00 CVA; ESRD; Hypertension; Gout; ld1 - PSHx: 17:00 None; ld1 - Immunization history:: Adult Immunizations up to date, Client reports receiving the 2nd dose of the Covid vaccine. - Social history:: Smoking status: Patient reports the use of cigarette tobacco products, smokes one-half pack cigarettes per day, Patient/guardian denies using alcohol. ROS: 20:14 Constitutional: Negative for fever, chills, and weight loss. kb 20:14 All other systems are negative. Exam: 20:14 Constitutional: This is a well developed, well nourished patient who is awake, alert, kb and in no acute distress. Head/Face: Normocephalic, atraumatic. ENT: Moist Mucous membranes Chest/axilla: Normal chest wall appearance and motion. Cardiovascular: Regular rate and rhythm with a normal S1 and S2. No gallops, murmurs, or rubs. No pulse deficits. Respiratory: Respirations even and unlabored. No increased work of breathing. Talking in full sentences Abdomen/GI: Soft, non-tender. No distention Back: No spinal tenderness. No costovertebral tenderness. Full range of motion. Skin: Warm, dry with normal turgor. Normal color. MS/ Extremity: Pulses equal, no cyanosis. Neurovascular intact. Full, normal range of motion. Neuro: Awake and alert, GCS 15, oriented to person, place, time, and situation. Moves all extremities. Normal gait. Psych: Awake, alert, with orientation to person, place and time. Behavior, mood, and affect are within normal limits. Vital Signs: 17:00 BP 149 / 92; Pulse 66; Resp 18; Temp 98.1(O); Pulse Ox 99% on R/A; Weight 72.57 kg; ld1 Height 5 ft. 2 in. (157.48 cm); Pain 5/10; 19:02 BP 186 / 89 RA; Pulse 50; Resp 16; Pulse Ox 100% on R/A; tp1 19:02 BP 192 / 99 LA; tp1 17:00 Body Mass Index 29.26 (72.57 kg, 157.48 cm) ld1 19:02 provider notified tp1 MDM: 17:07 Patient medically screened. kb 20:14 Data reviewed: vital signs, nurses notes. Data interpreted: Pulse oximetry: on room air kb is 100 %. Interpretation: normal. Counseling: I had a detailed discussion with the patient and/or guardian regarding: the historical points, exam findings, and any diagnostic results supporting the discharge/admit diagnosis, radiology results, the need for outpatient follow up, a family practitioner, to return to the emergency department if symptoms worsen or persist or if there are any questions or concerns that arise at home. ED course: Pt is asymptomatic of BP. States he didn't take his blood pressure medications today and can't remember what the names of his medications are. Will take his regular medication when he gets home. . 03/21 18:58 Order name: RAD; Complete Time: 18:58 EDMS 03/21 19:01 Order name: RAD; Complete Time: 19:02 EDMS Administered Medications: No medications were administered Disposition Summary: 03/21/22 19:12 Discharge Ordered Location: Home kb Condition: Stable kb Diagnosis - Fall on same level from slipping, tripping and stumbling without subsequent kb striking against object - Upper right back pain - resolved kb Followup: kb - With: Emergency Department - When: As needed - Reason: Worsening of condition Followup: kb - With: Private Physician - When: 2 - 3 days - Reason: Recheck today's complaints, Continuance of care, Re-evaluation by your physician Discharge Instructions: - Discharge Summary Sheet kb - Acute Back Pain, Adult kb - Fall Prevention in the Home, Adult, [id number] kb Forms: - Medication Reconciliation Form kb - Thank You Letter kb - Antibiotic Education kb - Prescription Opioid Use kb Addendum: 03/22/2022 22:32 Co-signature as Attending Physician, Ovidio Díaz MD. r n Signatures: Dispatcher [employer] EDMS Kenyetta Kruse, HOME DEPOT REP-C HOME DEPOT REP-Ckb Ovidio Díaz MD MD rn Dibbern, Lauren, RN RN ld1
[2022-03-21 22:14] VITALS: TEMP 98.1
[2022-03-21 22:16] VITALS: BP 192/99; O2SAT 100
== END 2022-03-21 19:30 | disposition home or self-care (01) ==
LOC: ER 16:24
DX: M54.9 Dorsalgia, unspecified (principal); W01.0XXA Fall on same level from slipping, tripping and stumbling without subsequent striking against object, initial encounter; I12.0 Hypertensive chronic kidney disease with stage 5 chronic kidney disease or end stage renal disease; N18.6 End stage renal disease; F17.210 Nicotine dependence, cigarettes, uncomplicated; Z86.73 Personal history of transient ischemic attack (TIA), and cerebral infarction without residual deficits
CPT/HCPCS: 71045; 99284

== ENCOUNTER 2022-08-04 20:47 | Inpatient (IN) | payer OTHER ==
--- OUTSIDE RECORDS SUMMARY | 2022-08-04 21:10 | XMS REPORT | Continuity of Care Document ---
:1950 Author Organization [facility] t Address [address] [place] [address] Care Team Providers Name Role Phone SHARPLESS Primary Care Physician Unavailable Hetal PENALOZA, Rut Attending Clinician Demetrius Larkin MD Attending Clinician DEMETRIUS LARKIN Attending Clinician Unavailable FARZAD JACKSON Attending Clinician Unavailable DEMETRIUS LARKIN Admitting Clinician Unavailable FARZAD JACKSON Admitting Clinician Unavailable Payers Payer Name Policy Type Policy Number Effective Date Expiration Date S ource MEDICARE A B [id number] 2017 00:00:00 Problems Condition Condition Condition Status Onset Resolution Last Treating Co mments Source Name Details Category Date Date Treatment Clinician Date Smoking Smoking Disease Recurre [facility] 1/2 pack a 1/2 pack a nce 5-20 Co llege day or day or 00:00: of less less 00 Medicin e Renal cell Renal cell Disease Active Overview : [facility] cancer, cancer, 3 [facility] left left 00:00: g of this of 00 note Medicin might be e different from the original. S/P L LAP RADICAL NEPHRECTO MY AT SL Pre-op Pre-op Disease Active [facility] Renal Renal Disease Active [facility] mass, left mass, left 3-27 [facility] kes 00:00: Medical 00 Center Essential Essential Disease Active [facility] hypertensi hypertensi 2-08 Co llege on on 00:00: of Medicin e Left renal Left renal Disease Active 2016-07 [facility] mass mass 0-04 College 00:00: of Medicin e 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 00:00: Medi jennifer behavior behavior 00 Center of kidney of kidney and and ureter, ureter, unspecifie unspecifie d d laterality laterality Kidney Kidney Disease Active [facility] disease disease [facility] e CKD CKD Disease Active Overview: [facility] (chronic (chronic [facility] Col lege kidney kidney g of this of disease) disease) note Medici n stage 4, stage 4, might be e GFR 15-29 GFR 15-29 different ml/min ml/min from the original. WITH HX OF HTN AND RCC Encephalop Encephalop Disease Active B [facility] e Allergies, Adverse Reactions, Alerts Allergy Allergy Status Severity Reaction(s) Onset Inactive Treating Comm ents Source Name Type Date Date Clinician NO KNOWN Allergy Active [facility] Social History Social Habit Start Date Stop Date Quantity Comments Source History of tobacco Cigarette Smoker [facility] use of [facility] Tobacco Comment 2022-07-24 2022-07-24 20+ years [facility] Co llege 00:00:00 00:00:00 of Medicine Alcohol intake 2017-10-10 2017-10-10 Current drinker [facility]EENA [facility]00 of alcohol [facility] Center (finding) Cigarettes smoked 2017-03-02 2017-03-[address] [facility] current (pack per 00:00:00 00:00:00 Medical Center day) - Reported Tobacco use and 2017-03-02 2017-03-[address] [facility] Sharmaine kes exposure 00:00:00 00:00:00 [facility] Center Sex Assigned At [address] Sharmaine kes 00:00:00 00:00:00 [facility] Center Smoking Status Start Date Stop Date Source Smokes tobacco daily 2022-07-24 00:00:00 [facility] Medications Ordered Filled Start Stop Current Ordering Indication Dosage Frequency Signature Comments Components Source Medication Medication Date Date Medication? Clinician (SIG) Name Name amlodipine 2021-07 Yes TAKE 1 [facility] (NORVASC) 2-03 TABLET BY Colle ge 10 MG 00:00: MOUTH of tablet 00 EVERY DAY Medicin e clonidine Yes TAKE 1 [facility] (CATAPRESS) 1-25 TABLET BY Col lege 0.2 MG 00:00: MOUTH of tablet 00 TWICE A Medicin DAY e Tamsulosin Yes .4mg Take 0.4 [facility] HCl 0.4 MG 1-25 mg by College CAPS 00:00: mouth of 00 daily. Medicin e Tamsulosin 2020-07 Yes TAKE 1 [facility] [...] DAY Medicin e clonidine Yes TAKE 1 [facility] (CATAPRESS) 9-21 TABLET BY Col lege 0.2 MG 00:00: MOUTH of tablet 00 TWICE A Medicin DAY e amlodipine Yes TAKE 1 [facility] (NORVASC) 9-21 TABLET BY Colle ge 10 MG 00:00: MOUTH of tablet 00 EVERY DAY Medicin e clonidine Yes TAKE 1 [facility] (CATAPRESS) 9-21 TABLET BY Col lege 0.2 [...] 2020- No TAKE 1 [facility] (CATAPRESS) 5-03 04-05 TABLET BY Co llege 0.2 MG 00:00: 00:00 MOUTH of tablet 00 :00 TWICE A Medicin DAY e clonidine 2020- No TAKE 1 [facility] (CATAPRESS) 5-03 - TABLET BY Co llege 0.2 MG 00:00: [...] Medic in OTHER e (CONSTIPAT ION). lactulose 2020-1 Yes 10g TAKE 15 ML [facility] (CHRONULAC) 2-19 BY MOUTH [facility] ege 10 GM/15ML 00:00: DAILY of solution 00 NEEDED FOR Medic in OTHER e (CONSTIPAT ION). lactulose 2020-1 Yes 10g TAKE 15 ML [facility] (CHRONULAC) 2-19 BY MOUTH [facility] ege 10 GM/15ML 00:00: DAILY of solution 00 NEEDED FOR Medic in OTHER e (CONSTIPAT ION). Tamsulosin 2020- Yes .4mg Take 0.4 [facility] HCl 0-21 mg by College (FLOMAX) 00:00: mouth of 0.4 MG CAPS 00 daily. Medici n e Tamsulosin 2020-1 Yes .4mg Take 0.4 [facility] HCl 0-21 mg by [place] (FLOMAX) 00:00: mouth of 0.4 MG CAPS 00 daily. Medici n e Tamsulosin 2020-1 Yes .4mg Take 0.4 [facility] HCl 0-21 mg by [place] (FLOMAX) 00:00: mouth of 0.4 MG CAPS 00 daily. Medici n e Tamsulosin 2020-1 Yes .4mg Take 0.4 [facility] HCl 0-21 mg by College (FLOMAX) 00:00: mouth of 0.4 MG CAPS 00 daily. Medici n e lactulose 2019-1 Yes 10g TAKE 15 ML [facility] (CHRONULAC) 0-08 BY MOUTH [facility]estine ege 10 GM/15ML 00:00: DAILY of solution 00 NEEDED FOR Medic in OTHER e (CONSTIPAT ION). atorvastati 2019-1 Yes TAKE 1 [facility] (LIPITOR) [...] clopidogrel 2020-0 Yes 75mg Take 1 Tab [facility] (PLAVIX) 75 7-16 by mouth [facility] e[facility] MG Tablet 00:00: daily. of 00 Medicin e clopidogrel 2020-0 Yes 75mg Take 1 Tab [facility] (PLAVIX) 75 7-16 by mouth [facility] e[facility] MG Tablet 00:00: daily. of 00 Medicin e clopidogrel 2020-0 Yes 75mg Take 1 Tab [facility] (PLAVIX) 75 7-16 by mouth [facility] e[facility] MG Tablet 00:00: daily. of 00 Medicin e lactulose 2020-0 Yes 10g Take 15 mL [facility] (CHRONULAC) 7-16 by mouth [facility] ege 10 GM/15ML 00:00: daily as of solution 00 needed for Medic in Other e (constipat ion). clopidogrel 2020-0 Yes 75mg Take 1 Tab [facility] (PLAVIX) 75 7-16 by mouth [...] .2mg Take 1 Tab [facility] (CATAPRESS) 01-28 by mouth Col lege 0.2 MG 00:00: 00:00 two times of tablet 00 :00 daily. Medicin e amlodipine 2020- No 10mg Take 1 Tab [facility] (NORVASC) 01-28 by mouth Colle ge 10 MG 00:00: 00:00 daily. of tablet 00 :00 Medicin e cloNIDine 2017-0 Yes .3mg Q.[id number] Take 0.[address] [facility] HCl 4-01 [id number] mg by [facility] (CATAPRES) 03:27: 3D mouth 3 Medi jennifer 0.3 MG 05 (three) Center tablet times daily. furosemide 2018-0 Yes 40mg Take [address] (LASIX) 40 4-01 by mouth [facility] MG tablet 03:27: every Medical 05 other day. [place] amLODIPine 2017-0 Yes 10mg QD Take [address] (NORVASC) 4-01 by mouth [facility] 10 MG 03:27: daily. Medical tablet 05 [place] cloNIDine 2017-0 Yes .3mg Q.[id number] Take 0.[address] [facility] HCl 4-01 [id number] mg by [facility] (CATAPRES) 03:27: 3D mouth 3 Medi jennifer 0.3 MG 05 (three) Center tablet times daily. furosemide 2017-0 Yes 40mg Take [address] (LASIX) 40 4-01 by mouth [facility] MG tablet 03:27: every Medical 05 other day. [place] amLODIPine 2018-0 Yes 10mg QD Take [address] (NORVASC) 4-01 by mouth [facility] 10 MG 03:27: daily. Medical tablet 05 [place] cloNIDine 2018-0 Yes .3mg Q.[id number] Take 0.[address] HCl 4-01 [id number] mg by [facility] (CATAPRES) 03:27: 3D mouth 3 Medi jennifer 0.3 MG 05 (three) Center tablet times daily. furosemide 2018-0 Yes 40mg Take [address] (LASIX) 40 4-01 by mouth [facility] MG tablet 03:27: every Medical 05 other day. [place] amLODIPine 2018-0 Yes 10mg QD Take [address] (NORVASC) 4-01 by mouth [facility] 10 MG 03:27: daily. Medical tablet Center Vital Signs Vital Name Observation Time Observation Value Comments Source Systolic blood 2022-07-24 21:40:00 140 mm[Hg] [facility] pressure Medicine Diastolic blood 2022-07-24 21:40:00 80 mm[Hg] [facility] Medicine Heart rate 2022-07-24 21:40:00 63 /min [facility] of Medicine Respiratory rate 2022-07-24 20:57:00 16 /min [facility] Body height 2022-07-24 20:57:00 160 cm [facility] Body weight 2022-07-24 20:57:00 55.974 kg [facility] BMI 2022-07-24 20:57:00 21.86 kg/m2 [facility] Body height 2021-08-08 19:36:00 160 cm [facility] Body weight 2021-08-08 19:36:00 61.236 kg [facility] BMI 2021-08-08 19:36:00 23.91 kg/m2 [facility] Systolic blood 2021-08-08 19:36:00 130 mm[Hg] [facility] Medicine Diastolic blood 2021-08-08 19:36:00 70 mm[Hg] [facility] Medicine Heart rate 2021-08-08 19:36:00 82 /min [facility] Medicine Respiratory rate 2021-08-08 19:36:00 16 /min [facility] Systolic blood 2021-04-05 18:18:00 130 mm[Hg] [facility] Medicine Diastolic blood 2021-04-05 18:18:00 80 mm[Hg] [facility] Medicine Heart rate 2021-04-05 18:18:00 75 /min [facility] Medicine Respiratory rate 2021-04-05 18:18:00 16 /min [facility] Body height 2021-04-05 18:18:00 160 cm [facility] Body weight 2021-04-05 18:18:00 62.869 kg [facility] BMI 2021-04-05 18:18:00 24.55 kg/m2 [facility] Systolic blood 2020-10-07 19:41:00 157 mm[Hg] [facility] pressure Medicine Diastolic blood 2020-10-07 19:41:00 82 mm[Hg] [facility] Medicine Heart rate 2020-10-07 19:41:00 51 /min [facility] Respiratory rate 2020-10-07 19:41:00 17 /min [facility] Body height 2020-05-05 14:26:00 160 cm [facility] Body weight 2020-05-05 14:26:00 68.04 kg [facility] BMI 2020-05-05 14:26:00 26.57 kg/m2 [facility] Systolic blood 2020-05-05 14:26:00 159 mm[Hg] [facility] Medicine Diastolic blood 2020-05-05 14:26:00 78 mm[Hg] [facility] Medicine Heart rate 2020-05-05 14:26:00 59 /min [facility] Body temperature 2020-05-05 14:26:00 36.61 Viky [facility] Respiratory rate 2020-05-05 14:26:00 18 /min [facility] Systolic blood 2020-04-05 18:17:00 144 mm[Hg] [facility] Medicine Diastolic blood 2020-04-05 18:17:00 82 mm[Hg] [facility] Medicine Heart rate 2020-04-05 18:17:00 56 /min [facility] Body temperature 2020-04-05 18:17:00 36.44 Viky [facility] Respiratory rate 2020-04-05 18:17:00 16 /min [facility] Body height 2020-04-05 18:17:00 162.6 cm [facility] Body weight 2020-04-05 18:17:00 64.411 kg [facility] BMI 2020-04-05 18:17:00 24.37 kg/m2 [facility] Procedure Date / Time Performed Performing Clinician Sour e POCT URINALYSIS 2020-10-07 00:00:00 Demetrius Larkin [facility] llege of [facility] Medicine POCT URINALYSIS 2020-05-05 00:00:00 Demetrius Larkin [facility] of [facility] Medicine Plan of Care Planned Activity Planned Date Details Comments Source Future Scheduled 2022-07-24 CBC W/O DIFF W PLT Ordered: [facility] Test 15:28:22 [code = 6690-2] 07/24/2022 of Medicine Future Scheduled 2022-07-24 COMPREHENSIVE Ordered: [facility] Test 15:28:22 METABOLIC PANEL 07/24/2022 of Medicine [code = 40039-9] Future Scheduled 2022-07-24 PTH INTACT [code = Ordered: [facility] Test 15:28:22 2731-8] 07/24/2022 of Medicine Future Scheduled 2022-07-24 PHOSPHORUS [code = Ordered: [facility] r College Test 15:28:22 2777-1] 07/24/2022 of Medicine Future Scheduled 2022-07-24 VITAMIN D 25 HYDROXY Ordered: [facility] Test 15:28:22 [code = 1989-3] 07/24/2022 of Medicine Future Scheduled 2022-07-24 Screening for [facility] Col lege Test 14:59:21 malignant neoplasm of Medici ne of colon (procedure) [code = 165689376] Future Scheduled 2022-07-24 Pneumococcal 65+ (1 [facility] Test 14:59:21 - PCV) [code = of Medicine Pneumococcal 65+ (1 - PCV)] Future Scheduled 2022-07-24 TETANUS SHOT (ADULT) [facility] Test 14:59:21 [code = TETANUS SHOT of Medi cine (ADULT)] Future Scheduled 2022-07-24 ZOSTER VACCINE (1 of [facility] [place] Test 14:59:21 2) [code = ZOSTER of Medicin e VACCINE (1 of 2)] Future Scheduled 2022-07-24 Medicare Awv [facility] Test 14:59:21 (Initial) [code = of Medicin e Medicare Awv (Initial)] Future Scheduled 2022-07-24 Abdominal aortic [facility] College Test 14:59:21 aneurysm screening of Medici ne (procedure) [code = 249591282] Future Scheduled 2022-07-24 Fall Screen [code = [facility] Test 14:59:21 Fall Screen] of Medicine Future Scheduled 2022-07-24 COVID-19 Vaccine (3 [facility] Test 14:59:21 - Booster for Pfizer of Medi cine series) [code = COVID-19 Vaccine (3 - Booster for Pfizer series)] Future Scheduled 2022-07-24 FLU VACCINE > 6 [facility] Test 14:59:21 MONTHS [code = FLU of Medici ne VACCINE > 6 MONTHS] Future Scheduled 2022-07-[address] [facility] Test 00:00:00 (12+) [code = Medical Center DEPRESSION SCREENING (12+)] Future Scheduled 2022-07-16 FALLS RISK SCREENING [facility] Test 00:00:00 [code = FALLS RISK Medical C enter SCREENING] Future Scheduled 2022-07-[address] [facility] Test 00:00:00 (12+) [code = Medical Center DEPRESSION SCREENING (12+)] Future Scheduled 2022-07-16 FALLS RISK SCREENING [facility] Test 00:00:00 [code = FALLS RISK Medical C enter SCREENING] Future Scheduled 2022-03-[address] [facility] Test 00:00:00 (#1) [code = [facility] Center INFLUENZA VACCINE (#1)] Future Scheduled 2022-03-[address] [facility] Test 00:00:00 (#1) [code = [facility] Center INFLUENZA VACCINE (#1)] Future Scheduled 2022-03-[address] [facility] Test 00:00:00 (#1) [code = [facility] Center INFLUENZA VACCINE (#1)] Future Scheduled 2021-08-08 CBC W/O DIFF W PLT Ordered: [facility] r [place] Test 14:06:14 [code = 6690-2] 08/08/2021 of Medicine Future Scheduled 2021-08-08 COMPREHENSIVE Ordered: [facility] Col lege Test 14:06:14 METABOLIC PANEL 08/08/2021 of Medicine [code = 47152-6] Future Scheduled 2021-08-08 FERRITIN [code = Ordered: [facility] Test 14:06:14 54834-6] 08/08/2021 of Medicine Future Scheduled 2021-08-08 IRON+TIBC+%SAT [code Ordered: [facility] College Test 14:06:14 = NOCPT] 08/08/2021 of Medicine Future Scheduled 2021-08-08 PHOSPHORUS [code = Ordered: [facility] r [facility] Test 14:06:14 2777-1] 08/08/2021 of Medicine Future Scheduled 2021-08-08 PTH INTACT [code = Ordered: [facility] Test 14:06:14 2731-8] 08/08/2021 of Medicine Future Scheduled 2021-08-08 VITAMIN D 25 HYDROXY Ordered: [facility] Test 14:06:14 [code = 1988-3] 08/08/2021 of Medicine Future Scheduled 2021-08-08 MICROALBUMIN/CREAT Ordered: [facility] Test 14:06:14 URINE RATIO [code = 08/08/2021 of Medic ine 9318-7] Future Scheduled 2021-08-08 Screening for [facility] Col lege Test 13:35:31 malignant neoplasm of Medici ne of colon (procedure) [code = 137448119] Future Scheduled 2021-08-08 TETANUS SHOT (ADULT) [facility] Test 13:35:31 [code = TETANUS SHOT of Medi cine (ADULT)] Future Scheduled 2021-08-08 ZOSTER VACCINE (1 of [facility] Test 13:35:31 2) [code = ZOSTER of Medicin e VACCINE (1 of 2)] Future Scheduled 2021-08-08 MEDICARE AWV [facility] Test 13:35:31 (Initial) [code = of Medicin e MEDICARE AWV (Initial)] Future Scheduled 2021-08-08 Abdominal aortic [facility] Test 13:35:31 aneurysm screening of Medici ne (procedure) [code = 227772764] Future Scheduled 2021-08-08 FALL SCREEN [code = [facility] Test 13:35:31 FALL SCREEN] of Medicine Future Scheduled 2021-08-08 Pneumococcal 65+ (1 [facility] Test 13:35:31 of 1 - PPSV23) [code of Medi cine = Pneumococcal 65+ (1 of 1 - PPSV23)] Future Scheduled 2021-08-08 FLU VACCINE > 6 [facility] C ollege Test 13:35:31 MONTHS [code = [...] Test 00:00:00 [code = FALLS RISK Medical C enter SCREENING] Future Scheduled 2021-05-09 PSA TOTAL(URO DEPT) Expected: [facility] Test 00:00:00 [code = 2857-1] 05/09/2021 of Medicine (Approximate), Expires: 08/09/2021 Future Scheduled 2021-05-09 COMPREHENSIVE Expected: [facility] Test 00:00:00 METABOLIC PANEL 05/09/2021 of Medicine [code = 60606-3] (Approximate), Expires: 06/09/2021 Future Scheduled 2021-05-09 CBC W/AUTO DIFF WITH Expected: [facility] Test 00:00:00 PLATELETS [code = 05/09/2021 of Medicin e 36626-8] (Approximate), Expires: 06/09/2021 Future Scheduled 2021-04-05 CBC W/AUTO DIFF WITH Ordered: [facility] Test 13:38:59 PLATELETS [code = 04/05/2021 of Medicin e 81308-1] Future Scheduled 2021-04-05 COMPREHENSIVE Ordered: [facility] Col [facility]ge Test 13:38:59 METABOLIC PANEL 04/05/2021 of Medicine [code = 91609-3] Future Scheduled 2021-04-05 FERRITIN [code = Ordered: [facility] Test 13:38:59 99063-4] 04/05/2021 of Medicine Future Scheduled 2021-04-05 IRON+TIBC+%SAT [code Ordered: [facility] Test 13:38:59 = NOCPT] 04/05/2021 of Medicine Future Scheduled 2021-04-05 PHOSPHORUS [code = Ordered: [facility] Test 13:38:59 2777-1] 04/05/2021 of Medicine Future Scheduled 2021-04-05 PTH INTACT [code = Ordered: [facility] [employer] Test 13:38:59 2731-8] 04/05/2021 of Medicine Future Scheduled 2021-04-05 RANDOM URINE Ordered: [facility] Test 13:38:59 PROTEIN/CREATININE 04/05/2021 of Medici ne [code = 2890-2] Future Scheduled 2021-04-05 MICROALBUMIN/CREAT Ordered: [facility] Test 13:38:59 URINE RATIO [code = 04/05/2021 of Medic ine 9318-7] Future Scheduled 2021-04-05 VITAMIN D 25 HYDROXY Ordered: [facility] Test 13:38:59 [code = 1989-3] 04/05/2021 of Medicine Future Scheduled 2021-04-05 ANTI NEUTROPHIL Ordered: [facility] C ollege Test 13:38:59 CYTOPLASMIC ANTIBODY 04/05/2021 of Medi cine [code = 11806] Future Scheduled 2021-04-05 CBC W/AUTO DIFF WITH Ordered: [facility] Test 13:38:59 PLATELETS [code = 04/05/2021 of Medicin e 56554-8] Future Scheduled 2021-04-05 COMPREHENSIVE Ordered: [facility] Col [facility]ge Test 13:38:59 METABOLIC PANEL 04/05/2021 of Medicine [code = 19634-9] Future Scheduled 2021-04-05 FERRITIN [code = Ordered: [facility] Test 13:38:59 02709-4] 04/05/2021 of Medicine Future Scheduled 2021-04-05 IRON+TIBC+%SAT [code Ordered: [facility] Test 13:38:59 = NOCPT] 04/05/2021 of Medicine Future Scheduled 2021-04-05 PHOSPHORUS [code = Ordered: [facility] Test 13:38:59 2777-1] 04/05/2021 of Medicine Future Scheduled 2021-04-05 PTH INTACT [code = Ordered: [facility] Test 13:38:59 2731-8] 04/05/2021 of Medicine Future Scheduled 2021-04-05 RANDOM URINE Ordered: [facility] Test 13:38:59 PROTEIN/CREATININE 04/05/2021 of Medici ne [code = 2890-2] Future Scheduled 2021-04-05 MICROALBUMIN/CREAT Ordered: [facility] Test 13:38:59 URINE RATIO [code = 04/05/2021 of Medic ine 9318-7] Future Scheduled 2021-04-05 VITAMIN D 25 HYDROXY Ordered: [facility] Test 13:38:59 [code = 1989-3] 04/05/2021 of Medicine Future Scheduled 2021-04-05 ANTI NEUTROPHIL Ordered: [facility] C [facility]lege Test 13:38:59 CYTOPLASMIC ANTIBODY 04/05/2021 of Medi cine [code = 18956] Future Scheduled 2021-04-05 Screening for [facility] Col lege Test 13:19:08 malignant neoplasm of Medici ne of colon (procedure) [code = 264260958] Future Scheduled 2021-04-05 TETANUS SHOT (ADULT) [facility] Test 13:19:08 [code = TETANUS SHOT of Medi cine (ADULT)] Future Scheduled 2021-04-05 BMI FOLLOW UP PLAN [facility] Test 13:19:08 [code = BMI FOLLOW of Medici ne UP PLAN] Future Scheduled 2021-04-05 ZOSTER VACCINE (1 of [facility] Test 13:19:08 2) [code = ZOSTER of Medicin e VACCINE (1 of 2)] Future Scheduled 2021-04-05 MEDICARE AWV [facility] Test 13:19:08 (Initial) [code = of Medicin e MEDICARE AWV (Initial)] Future Scheduled 2021-04-05 Abdominal aortic [facility] Test 13:19:08 aneurysm screening of Medici ne (procedure) [code = 581577605] Future Scheduled 2021-04-05 FALL SCREEN [code = [facility] or [place] Test 13:19:08 FALL SCREEN] of Medicine Future Scheduled 2021-04-05 PNEUMOVAX >=65 [facility] Co [facility]lege Test 13:19:08 (PPSV23) [code = of Medicine PNEUMOVAX >=65 (PPSV23)] Future Scheduled 2021-04-05 FLU VACCINE > 6 [facility] C ollege Test 13:19:08 MONTHS [code = FLU of Medici ne VACCINE > 6 MONTHS] Future Scheduled 2021-04-05 Screening for [facility] Col lege Test 13:19:08 malignant neoplasm of Medici ne of colon (procedure) [code = 380349365] Future Scheduled 2021-04-05 TETANUS SHOT (ADULT) [facility] Test 13:19:08 [code = TETANUS SHOT of Medi cine (ADULT)] Future Scheduled 2021-04-05 BMI FOLLOW UP PLAN [facility] Test 13:19:08 [code = BMI FOLLOW of Medici ne UP PLAN] Future Scheduled 2021-04-05 ZOSTER VACCINE (1 of [facility] Test 13:19:08 2) [code = ZOSTER of Medicin e VACCINE (1 of 2)] Future Scheduled 2021-04-05 MEDICARE AWV [facility] Test 13:19:08 (Initial) [code = of Medicin e MEDICARE AWV (Initial)] Future Scheduled 2021-04-05 Abdominal aortic [facility] Test 13:19:08 aneurysm screening of Medici ne (procedure) [code = 615431657] Future Scheduled 2021-04-05 FALL SCREEN [code = [facility] Test 13:19:08 FALL SCREEN] of Medicine Future Scheduled 2021-04-05 PNEUMOVAX >=65 [facility] Co [facility]lege Test 13:19:08 (PPSV23) [code = of Medicine PNEUMOVAX >=65 (PPSV23)] Future Scheduled 2021-04-05 FLU VACCINE > 6 [facility] C [facility]lege Test 13:19:08 MONTHS [code = FLU of Medici ne VACCINE > 6 MONTHS] Future Scheduled 2021-02-28 COVID-19 VACCINE ([address] [facility] Test 00:00:00 - Booster for Pfizer Medical Center series) [code = COVID-19 VACCINE (3 - Booster for Pfizer series)] Future Scheduled 2021-02-28 COVID-19 VACCINE ([address] [facility] Test 00:00:00 - Booster for Pfizer Medical Center series) [code = COVID-19 VACCINE (3 - Booster for Pfizer series)] Future Scheduled 2021-02-28 COVID-19 VACCINE ([address] [facility] Test 00:00:00 - Booster for Pfizer Medical Center series) [code = COVID-19 VACCINE (3 - Booster for Pfizer series)] Diagnostic Test 2020-05-19 PSA TOTAL(URO DEPT) Expected: [facility] Pending 00:00:00 [code = 2857-1] 05/19/2020 of Medicine (Approximate), Expires: 06/04/2020 Future Scheduled 2018-07-[address] [facility] [facility] Test 00:00:00 WELLNESS (YEAR 2 or Medical Center FIRST YEAR if no IPPE) [code = MEDICARE ANNUAL WELLNESS (YEAR 2 or FIRST YEAR if no IPPE)] Future Scheduled 2018-07-[address] [facility] 00:00:00 WELLNESS (YEAR 2 or Medical Center FIRST YEAR if no IPPE) [code = MEDICARE ANNUAL WELLNESS (YEAR 2 or FIRST YEAR if no IPPE)] Future Scheduled 2018-07-[address] [facility] 00:00:00 WELLNESS (YEAR 2 or Medical Center FIRST YEAR if no IPPE) [code = MEDICARE ANNUAL WELLNESS (YEAR 2 or FIRST YEAR if no IPPE)] Future Scheduled 2017 PNEUMOCOCCAL 65+ YRS [facility] 00:00:00 (1 - PCV) [code = Medical Ce nter PNEUMOCOCCAL 65+ YRS (1 - PCV)] Future Scheduled 2017 PNEUMOCOCCAL 65+ YRS [facility] 00:00:00 (1 - PCV) [code = Medical Ce nter PNEUMOCOCCAL 65+ YRS (1 - PCV)] Future Scheduled 2017 PNEUMOCOCCAL 65+ YRS [facility] 00:00:00 (1 - PCV) [code = Medical Ce nter PNEUMOCOCCAL 65+ YRS (1 - PCV)] Future Scheduled 2002 SHINGLES VACCINES ([address] [facility] 00:00:00 of 2) [code = Medical Center SHINGLES VACCINES (1 of 2)] Future Scheduled 2002 SHINGLES VACCINES ([address] [facility] 00:00:00 of 2) [code = Medical Center SHINGLES VACCINES (1 of 2)] Future Scheduled 2002 SHINGLES VACCINES ([address] [facility] 00:00:00 of 2) [code = Medical Center SHINGLES VACCINES (1 of 2)] Future Scheduled 1971 DTAP/TDAP/TD [facility] VACCINES (1 - Tdap) Medical Center [code = DTAP/TDAP/TD VACCINES (1 - Tdap)] Future Scheduled 1971 DTAP/TDAP/TD [facility] 00:[facility]:00 VACCINES (1 - Tdap) Medical Center [code = DTAP/TDAP/TD VACCINES (1 - Tdap)] Future Scheduled 1971 DTAP/TDAP/TD [facility] 00:[facility]:00 VACCINES (1 - Tdap) Medical Center [code = DTAP/TDAP/TD VACCINES (1 - Tdap)] Future Scheduled [address] [facility] 00:00:00 SCREENING [code = Medical Ce nter HEPATITIS C SCREENING] Future Scheduled [address] [facility] 00:00:00 SCREENING [code = Medical Ce nter HEPATITIS C SCREENING] Future Scheduled [address] [facility] 00:00:00 SCREENING [code = Medical Ce nter HEPATITIS C SCREENING] Future Scheduled [address] [facility] 00:00:00 Counseling and Medical Cente r Screening (12+) [code = Tobacco Cessation Counseling and Screening (12+)] Future Scheduled [address] [facility] 00:00:00 Counseling and Medical Cente r Screening (12+) [code = Tobacco Cessation Counseling and Screening (12+)] Future Scheduled [address] [facility] 00:00:00 (combo) [code = CT Medical C enter Colonography (combo)] Future Scheduled [address] [facility] 00:00:00 malignant neoplasm Medical C enter of colon (procedure) [code = 800382745] Future Scheduled [address] [facility] 00:00:00 malignant neoplasm Medical C enter of colon (procedure) [code = 296077673] Future Scheduled [address] [facility] 00:00:00 malignant neoplasm Medical C enter of colon (procedure) [code = 542639905] Future Scheduled [address] [facility] 00:00:00 malignant neoplasm Medical C enter of colon (procedure) [code = 501289684] Future Scheduled 1950 Sigmoidoscopy [code [facility] 00:00:00 = Sigmoidoscopy] Medical [place] Future Scheduled [address] [facility] 00:00:00 (combo) [code = CT Medical C enter Colonography (combo)] Future Scheduled [address] [facility] 00:00:00 malignant neoplasm Medical C enter of colon (procedure) [code = 846785094] Future Scheduled [address] [facility] 00:00:00 malignant neoplasm Medical C enter of colon (procedure) [code = 282978278] Future Scheduled [address] [facility] 00:00:00 malignant neoplasm Medical C enter of colon (procedure) [code = 882071674] Future Scheduled [address] [facility] 00:00:00 malignant neoplasm Medical C enter of colon (procedure) [code = 192943608] Future Scheduled 1950 Sigmoidoscopy [code [facility] 00:00:00 = Sigmoidoscopy] [facility] [place] [facility] Future Scheduled [address] [facility] 00:00:00 (combo) [code = CT Medical C enter Colonography (combo)] Future Scheduled [address] [facility] 00:00:00 malignant neoplasm Medical C enter of colon (procedure) [code = 050536146] Future Scheduled [address] [facility] 00:00:00 malignant neoplasm Medical C enter of colon (procedure) [code = 737866024] Future Scheduled [address] [facility] 00:00:00 malignant neoplasm Medical C enter of colon (procedure) [code = 161993287] Future Scheduled [address] [facility] 00:00:00 malignant neoplasm Medical C enter of colon (procedure) [code = 782384189] Future Scheduled 1950 Sigmoidoscopy [code [facility] 00:00:00 = Sigmoidoscopy] Medical [place] Future Scheduled COLON CANCER [facility] [employer] Test SCREENING: of Medicine COLONOSCOPY [code = COLON CANCER SCREENING: COLONOSCOPY] Future Scheduled TETANUS SHOT (ADULT) [employer] [place] Test [code = TETANUS SHOT of Medi cine (ADULT)] Future Scheduled BMI FOLLOW UP PLAN [facility] Test [code = BMI FOLLOW of Medici ne UP PLAN] Future Scheduled ZOSTER VACCINE (1 of [facility] Test 2) [code = ZOSTER of Medicin e VACCINE (1 of 2)] Future Scheduled MEDICARE AWV [facility] Test (Initial) [code = of Medicin e MEDICARE AWV (Initial)] Future Scheduled AAA Screen [code = [employer] [facility] AAA Screen] of Medicine Future Scheduled FALL SCREEN [code = [employer] [facility] FALL SCREEN] of Medicine Future Scheduled PNEUMOVAX >=65 [facility]lege Test (PPSV23) [code = of Medicine PNEUMOVAX >=65 (PPSV23)] Future Scheduled FLU VACCINE > 6 [facility] C ollege Test MONTHS [code = FLU of Medici ne VACCINE > 6 MONTHS] Future Scheduled URINALYSIS W REFLEX Ordered: [employer] Test MICRO [code = NOCPT] 10/07/2020 of Medi cine Future Scheduled Screening for [facility] Col lege Test malignant neoplasm of Medici ne of colon (procedure) [code = 152432478] Future Scheduled TETANUS SHOT (ADULT) [employer] Test [code = TETANUS SHOT of Medi cine (ADULT)] Future Scheduled BMI FOLLOW UP PLAN [facility] Test [code = BMI FOLLOW of Medici ne UP PLAN] Future Scheduled ZOSTER VACCINE (1 of [employer] Test 2) [code = ZOSTER of Medicin e VACCINE (1 of 2)] Future Scheduled MEDICARE AWV [facility] [employer] Test (Initial) [code = of Medicin e MEDICARE AWV (Initial)] Future Scheduled Abdominal aortic [facility] College Test aneurysm screening of Medici ne (procedure) [code = 602038035] Future Scheduled FALL SCREEN [code = [employer] [facility] FALL SCREEN] of Medicine Future Scheduled PNEUMOVAX >=65 [facility] Test (PPSV23) [code = of Medicine PNEUMOVAX >=65 (PPSV23)] Future Scheduled FLU VACCINE > 6 [facility] C ollege Test MONTHS [code = FLU of Medici ne VACCINE > 6 MONTHS] Future Scheduled RANDOM URINE Ordered: [facility] [employer] Test PROTEIN/CREATININE 04/05/2020 of Medici ne [code = 2890-2] Future Scheduled URINALYSIS AUTO Ordered: [facility] C [facility]lege Test W/SCOPE [code = 04/05/2020 of Medicine 16776-2] Future Scheduled COLON CANCER [facility] [employer] Test SCREENING: of Medicine COLONOSCOPY [code = COLON CANCER SCREENING: COLONOSCOPY] Future Scheduled TETANUS SHOT (ADULT) [employer] Test [code = TETANUS SHOT of Medi cine (ADULT)] Future Scheduled ZOSTER VACCINE (1 of [employer] Test 2) [code = ZOSTER of Medicin e VACCINE (1 of 2)] Future Scheduled MEDICARE AWV [facility] Test (Initial) [code = of Medicin e MEDICARE AWV (Initial)] Future Scheduled AAA Screen [code = [employer] [place] Test AAA Screen] of Medicine Future Scheduled FALL SCREEN [code = [employer] [facility] FALL SCREEN] of Medicine Future Scheduled PNEUMOVAX >=65 [facility] Test (PPSV23) [code = of Medicine PNEUMOVAX >=65 (PPSV23)] Future Scheduled FLU VACCINE > 6 [facility] C ollege Test MONTHS [code = FLU of Medici ne VACCINE > 6 MONTHS] Future Scheduled MRI ABDOMEN WO 1 Occurrences [facility] C ollege Test CONTRAST [code = starting of Medicine 31348-2] 05/05/2020 until 11/28/2020 Future Scheduled XR CHEST PA AND 1 Occurrences [facility] College Test LATERAL [code = starting of Medicine 97702-4] 05/05/2020 until 11/28/2020 Encounters Start End Encounter Admission Attending Care Care Encounter Source Date/Time Date/Time Type Type Clinicians Facility Department ID 2022-07-24 2022-07-24 Office Hetal, [facility] [id number] [facility] 16:20:00 16:40:00 Visit Samaya AMBULATOR 350.1.13.21 College Y 0.2.7.2.686 of [id number] [facility] 335 e 2021-08-08 2021-08-08 Office Hetal [facility] [id number] [facility] 13:40:00 14:52:39 Visit Samaya AMBULATOR 350.1.13.21 College Y 0.2.7.2.686 of [id number] [facility] refugio 335 e 2021-04-05 2021-04-05 Office Hetal, [facility] [id number] [facility] 13:14:21 13:46:44 Visit Samaya AMBULATOR 350.1.13.21 College Y 0.2.7.2.686 of [id number] [facility] [place] 335 e 2020-10-07 2020-10-07 Office LILLIANA Larkin [id number] [facility] 14:37:10 16:35:39 Visit Demetrius Kohler AMBULATOR 350.1.13.21 College Y 0.2.7.2.686 of [id number] [facility] 300 e 2020-05-25 2020-05-25 [id number] [facility] 00:00:00 00:00:00 DEMETRIUS 2020-05-25 2020-05-25 Outpatient CHAYA [facility] [id number] [facility] 00:00:00 00:00:00 [place] 2020-05-05 2020-05-05 Office LILLIANA Larkin 1.2.840.114 [id number] [facility] 08:40:26 09:26:13 Visit Demetrius Kohler AMBULATOR 350.1.13.21 College Y 0.2.7.2.686 of [id number] [facility] 300 e 2020-04-05 2020-04-05 Office Hetal [facility] 1.2.840.114 [id number] [facility] 12:38:08 16:49:05 Visit Rut AMBULATOR 350.1.13.21 College Y 0.2.7.2.686 of [id number] [facility] [place] 335 e 2020-03-02 2020-03-02 Outpatient [facility] [id number] 004 [facility] 00:00:00 00:00:00 Results Test Description Test Time Test Comments Results Result Comments Source POCT URINALYSIS DIPSTICK 2020-10-07 00:00:00 Test Item Value Reference Range Interpretation Comme nts COLOR UA (test code = 5778-6) Yellow YELLOW/STRAW CLARITY UA (test code = 14441-0) Clear CLEAR GLUCOSE UA (test code = 5792-7) Negative NEGATIVE BILIRUBIN UA (test code = 5770-3) Negative NEGATIVE KETONES UA (test code = 87437-2) Negative NEGATIVE SPECIFIC GRAVITY UA (test code [...] NEGATIVE REDUCING SUBSTANCES URINE (test code = 90831-5) [facility] [id number] 16:51:00 Unlisted Reason for Exam - Click Yes and Enter Reason Below->YesUnlisted Reason for Exam->Personal history [facility] kidney [facility] 1950 Sex: MFINAL REPORT [...] and a low medial insertion of the cysticduct. SPLEEN: No splenomegaly.PANCREAS: No focal masses or ductal dilatation. ADRENALS: No adrenal nodules.KIDNEYS/URETERS: Prior left nephrectomy. No right hydronephrosis or solid mass lesions. There are multiple right renal cysts which measure up to 1.47 m in the right upper pole. This 1.4 cm renal cyst previously measured 1.3 cm and has internal material which is hypointense on T2-weighted imagingand intermediate intensity on T1- weighted imaging. An additional right upper pole renal cyst with a single thin internal septation measures 1.4 cm, previously 1.3 cm. PERITONEUM/RETROPERITONEUM: Small volume free fluid in the pelvis.LYMPH NODES: No lymphadenopathy.VESSELS: Plaque in the infrarenal abdominal aorta GI TRACT: No distention or wall thickening. BONES AND SOFT TISSUES: A cyst in the left ba ck is most likely a facet synovial cyst which measures 1.2 cm on series 10 image 34, similar to the prior. IMPRESSION: 1.Evaluation is suboptimal without intravenous contrast. However, the right renal cysts are similar to the prior examination. One of these is indeterminate intensity but most likely a hemorrhagic cyst. 2.No metastatic disease in the abdomen. Signed: Alo Paris MDRjenni Verified Date/Time: 05/25/2020 16:51:08 Reading Location: [address] Transitional Reading Room RAD, CHEST, 2 [id number] 10:10:00Reason for Exam:- >[facility] 1950 Sex: MFINAL REPORT [...] Date/Time: 05/25/2020 10:10:41 Reading Location: [facility] Reading Room [address] [place] [address] POCT URINALYSIS DIPSTICK 2020-05-05 00:00:00 Test Item Value Reference Range Interpretation Comments COLOR UA (test code = 5778-6) [place] YELLOW/STRAW CLARITY UA (test code = 30634-6) Clear CLEAR GLUCOSE UA (test code = 5792-7) Negative NEGATIVE BILIRUBIN UA (test code = 5770-3) Negative NEGATIVE KETONES UA (test code = 70097-4) Negative NEGATIVE SPECIFIC GRAVITY UA (test code [...] NEGATIVE REDUCING SUBSTANCES URINE (test code = 97363-4) [id number] 09:38:00Surgical Pathology Report Case: [id number] Authorizing Provider: Demetrius Larkin MD Collected: 10/09/2017 1652 Ordering Location: [facility] PERIOPERATIVE Received: 10/10/2017 0810 SERVICES Pathologist: Joyce [...] SYNOPTIC REPORT Signing Pathologist Direct Phone Line: [phone] signed by Joyce Sauceda MD on 10/16/2017 at 9:38 AMThe relative revisions of traditional Dami nuclear grading in predicting 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 The assessment of nucleolar prominence as a single parameter is noted to correlate better with outcome than other nuclear parameters (size, shape) to assign a Dami grade. ("Urologic Surgical Pathology,"Leidy and Cristian, third edition, 2014). Nuclear grade assigned in Synoptic portion of this report (tw, can include).This patient's previous biopsy from [facility], from 03/02/2017 (SS17- 1130) shows a core [...] Additional Pathological Findings: Cyst(s): Simple cortical cyst 22974 X 2, 58702, 52233 x6Left renal massA. Retroperitoneal lymph node. B. Left kidney and hilar lymph nodeThe specimen is received in two containers of formalin both labeled with the patient's information.Part A: Labeled "retroperitoneal lymph node" consists of multiple ragged fragments of fibrofatty tissue measuring3 x 2.5 x 1.5 cm yielding 7 [...] with tumor. In the superior pole is abiloculated cyst measuring 1 cm filled with pendleton-red [...] (sarcomatoiid, etc.) or other types of tumor arenot noted.The following special studies were performed on this case and the interpretation is incorporated in the diagnostic report above: AMACR,strongly positive; RCC marker, positive; AE1/AE3-positive; RICHARD and CK 7-focally positive; FZ20-hkfranrk CD10 equivocal, possibly focally positiveThe immunohistochemistry test was developed and its performance characteristics determined by [facility], Pathology Laboratory. It has not [...] perform high complexity clinical laboratory testing.BASIC METABOLIC [id number] 13:36:00 Test Item Value Reference Range Interpretation [...] PATIEN TS. CBC W/PLT COUNT & AUTO [id number] 12:44:00 Test Item Value Reference Range Interpretation [...] (BEAKER) (test code = 2801) BASIC METABOLIC [id number] 15:02:00 Test Item Value Reference Range Interpretation [...] FOR DIALYSIS PATIEN TS. [facility] MET[facility]OL[facility] [id number] 06:14:00 Test Item Value Reference Range Interpretation [...] S NOT APPLICABLE FOR DIALYSIS PATIEN TS. [id number] 06:03:00 Test Item Value Reference Range Interpretation Comments PHOSPHORUS (BEAKER) (test code = 2.7 mg/dL 2.3-4.7 604) [id number] 06:03:00 Test Item Value Reference Range Interpretation Comments MAGNESIUM (BEAKER) (test code = 2.1 mg/dL 1.6-2.6 627) CBC W/PLT COUNT & AUTO [id number] 05:16:00 Test Item Value Reference Range Interpretation [...] 20-55 (test code = 2590) BASIC METABOLIC [id number] 05:41:00 Test Item Value Reference Range Interpretation [...] S NOT APPLICABLE FOR DIALYSIS PATIEN TS. [id number] 05:36:00 Test Item Value Reference Range Interpretation Comments PHOSPHORUS (BEAKER) (test code = 2.8 mg/dL 2.3-4.7 604) [id number] 05:36:00 Test Item Value Reference Range Interpretation Comments MAGNESIUM (BEAKER) (test code = 2.2 mg/dL 1.6-2.6 627) PTH, [id number] 05:33:00 Test Item Value Reference Range Interpretation Comments PARATHYROID HORMONE INTACT 212.3 pg/mL 8.5-72.5 H (BEAKER) (test code = 577) CBC W/PLT COUNT & AUTO [id number] 05:02:00 Test Item Value Reference Range Interpretation [...] 0-1 PERCENT (BEAKER) (test code = 2801) [id number] 06:36:00 Test Item Value Reference Range Interpretation Comments PHOSPHORUS (BEAKER) (test code = 2.4 mg/dL 2.3-4.7 604) [id number] 06:36:00 Test Item Value Reference Range Interpretation Comments MAGNESIUM (BEAKER) (test code = 1.8 mg/dL 1.6-2.6 627) BASIC METABOLIC [id number] 06:36:00 Test Item Value Reference Range Interpretation [...] PATIEN TS. CBC W/PLT COUNT & AUTO [id number] 05:59:00 Test Item Value Reference Range Interpretation [...] 0-1 PERCENT (BEAKER) (test code = 2801) [id number] 19:38:00 Test Item Value Reference Range Interpretation Comments PHOSPHORUS (BEAKER) (test code = 2.8 mg/dL 2.3-4.7 604) [id number] 19:38:00 Test Item Value Reference Range Interpretation Comments MAGNESIUM (BEAKER) (test code = 1.7 mg/dL 1.6-2.6 627) BASIC METABOLIC [id number] 19:35:00 Test Item Value Reference Range Interpretation [...] APPLICABLE FOR DIALYSIS PATIEN TS. HEMOGLOBIN AND [id number] 19:07:00 Test Item Value Reference Range Interpretation Comments HEMOGLOBIN (BEAKER) (test code = 13.7 GM/DL 13.7-17.5 410) HEMATOCRIT (BEAKER) (test code = 40.5 % 40.1-51.0 411) URINE [id number] 13:12:00 Test Item Value Reference Range Interpretation Comments CULTURE (BEAKER) (test code = 1095) No growth BASIC METABOLIC [id number] 17:19:00 Test Item Value Reference Range Interpretation [...] APPLICABLE FOR DIALYSIS PATIEN TS. URINALYSIS W/ [id number] 17:15:00 Test Item Value Reference Range Interpretation [...] 1574) Rare SOURCE(BEAKER) (test code = 2795) [id number] 17:07:00 Test Item Value Reference Range Interpretation Comments PARTIAL THROMBOPLASTIN TIME 28.1 seconds 22.5-36.0 (BEAKER) (test code = 760) PROTHROMBIN [id number] 17:06:00 Test Item Value Reference Range Interpretation Comments PROTIME (BEAKER) (test code = 13.6 seconds 11.7-14.7 759) INR (BEAKER) (test code = 370) 1.0 <=5.9 RECOMMENDED COUMADIN/WARFARIN INR THERAPY RANGESSTANDARD DOSE: 2.0 - 3.0 Includes: PROPHYLAXIS for venous thrombosis, systemic embolization; TREATMENT for venous thrombosis and/or pulmonary embolus.HIGH RISK: Target INR is 2.5-3.5 for patients with mechanical heart valves.CBC W/PLT COUNT & AUTO [id number] 16:53:00 Test Item Value Reference Range Interpretation [...] PERCENT (BEAKER) (test code = 2801) TISSUE [id number] 11:47:00Surgical Pathology Report Case: [id number] Authorizing Provider: Farzad Jackson Collected: 03/02/2017 Stephen9 MD Cinthia Ordering Location: [facility] Diagnostic Imaging Received: 03/02/2017 1140 Patholog ist: Jenniffer Weber MD Specimen: Kidney, Left KIDNEY, [...] Intradepartmental consultation: Dr. Koko Whitney, Dr. Umu Manzanares/[id number], [id number], 55925 x2Left kidney biopsy massKidney massThe specimen is received in fixative and [...] developed and its performance characteristics determined by [facility], Pathology Laboratory. It has not been cleared or approved by the U.S. Food and Drug Administration. The FDA has determined that such clearance or approval is not necessary. The test is used for clinical purposes. It should not be regarded as investigational or for research. This laboratory is certified under the Clinical LaboratoryImprovement Amendments of 1988 (CLIA-88) as qualified to perform high complexity clinical laboratorytesting.[id number] 08:19:00 Test Item Value Reference Range Interpretation [...] mechanical heart valves.CBC W/PLT COUNT & AUTO [id number] 08:14:00 Test Item Value Reference Range Interpretation [...]
--- NOTE | 2022-08-04 21:32 | RAD REPORT ---
EXAM DESCRIPTION: CT - Head Brain Wo Cont - 08/04/2022 9:22 pm CLINICAL HISTORY: Mental status change, persistent or worsening COMPARISON: <Comparisons>CT head 03/27/2019 TECHNIQUE: Axial 5 mm thick images of the head were obtained without IV contrast. All CT scans are performed using dose optimization technique as appropriate and may include automated exposure control or mA/KV adjustment according to patient size. FINDINGS: No intracranial hemorrhage, mass, edema or shift of mid-line structures. No acute cortical based infarction is identifiable. No cortical edema or sulcal effacement. No abnormal extra-axial fl uid collections. Advanced for age atrophy changes are present. New area of encephalomalacia is presen t in the medial inferior right cerebellum since the 2019 comparison. Ventricles are in proportion to the amount of volume loss. Very severe for age cerebral white matter chronic ischemic change seen. Th is extends into the basal ganglia. Brainstem chronic ischemic changes are present. Dense arterial sam e calcifications are present. An acute intracranial process not identifiable. Mastoid air cells and visualized portions of the paranasal sinuses are clear. No acute bony findings. IMPRESSION: No hemorrhage or acute intracranial finding identifiable. Patient has very severe for age chronic ischemic change and very advanced for age atrophy. Ventricles are in proportion. 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 Otherwise, the intracranial findings are not clearly different from 2019.
[2022-08-04 21:43] LABS: Absolute Lymphocytes (CBC) 0.8 K/uL (0.7-4.9); Hematocrit 45.5 % (39.6-49.0); Lymphocytes % 18.1 % (15.3-44.8); MCV 86.5 fL (80-100); MPV 7.5 fL (7.6-11.3); RBC Red Blood Cell Count 5.26 M/uL (4.33-5.43)
[2022-08-04] MEDS ORDERED: NA CHLORIDE 0.9% 1,000 ML ONE (21:46)
[2022-08-04 21:47] LABS: Protime INR 0.95
[2022-08-04 22:00] LABS: SARS-CoV-2 Antigen Rapid Res Negative (Negative)
[2022-08-04] MEDS ORDERED: HYDRALAZINE HCL 25 MG TABLET ONE (22:17)
[2022-08-04] MEDS ORDERED: HYDRALAZINE HCL 20 MG/ML VIAL ONE (22:17)
[2022-08-04] MEDS ORDERED: AMLODIPINE 10 MG TAB ONE (22:17)
[2022-08-04 22:27] LABS: Albumin 3.8 g/dL (3.4-5.0); Bilirubin Direct 0.1 mg/dL (0-0.2); Bilirubin Total 0.4 mg/dL (0.2-1.0); Magnesium 2.3 mg/dL (1.6-2.4); Potassium 3.8 mmol/L (3.5-5.1); Protein, Total 8.2 g/dL (6.4-8.2); Troponin High Sensitivity 34.1 pg/mL (<58.9)
--- NOTE | 2022-08-04 22:40 | RAD REPORT ---
EXAM DESCRIPTION: RAD - Chest Single View - 08/04/2022 9:46 pm CLINICAL HISTORY: COUGH COMPARISON: Single-view chest 03/21/2022 TECHNIQUE: AP portable chest image was obtained 08/04/2022 9:46 pm . FINDINGS: Lungs are clear. Heart and vasculature are normal. No measurable pleural effusion and no p neumothorax. No acute bony abnormality seen. No acute aortic findings. Vascular stenting overlies the right apex. IMPRESSION: No acute cardiopulmonary process. No significant change from comparison study.
--- NOTE | 2022-08-04 23:13 | EDPHYS ---
Physician Documentation [facility] Name: Aravind Low Age: 71 yrs Sex: Male : 1950 Arrival Date: 08/04/2022 Time: 20:52 Bed 4 Private MD: ED Physician Lanre Schroeder HPI: 08/04 23:00 This 71 yrs old Black Male presents to ER via EMS with complaints of Altered Mental jami Status, General Weakness. 23:00 The patient presents with confusion. Onset: The symptoms/episode began/occurred 2 jami week(s) ago. Possible causes: CVA or TIA, low blood sugar. Associated signs and symptoms: Pertinent positives: confusion, diarrhea. Current symptoms: In the emergency department the patient's symptoms have improved, mildly. Patient's baseline: Neuro: alert and fully oriented. The patient has not experienced similar symptoms in the past. Historical: - Allergies: 21:00 No Known Allergies; aa9 - Home Meds: 21:00 amlodipine oral [Active]; aa9 - PMHx: 21:00 CVA; ESRD; Gout; Hypertension; kidney cancer; aa9 - Immunization history:: Client reports receiving the 2nd dose of the Covid vaccine. - Social history:: Smoking status: Patient reports the use of cigarette tobacco products, smokes one pack cigarettes per day. - Family history:: not pertinent. ROS: 23:00 Constitutional: Negative for fever, chills, and weight loss, Eyes: Negative for injury, jami pain, redness, and discharge, ENT: Negative for injury, pain, and discharge, Neck: Negative for injury, pain, and swelling, Cardiovascular: Negative for chest pain, palpitations, and edema, Respiratory: Negative for shortness of breath, cough, wheezing, and pleuritic chest pain, Abdomen/GI: Negative for abdominal pain, nausea, vomiting, diarrhea, and constipation, Back: Negative for injury and pain, : Negative for injury, bleeding, discharge, and swelling, MS/Extremity: Negative for injury and deformity, Skin: Negative for injury, rash, and discoloration, Psych: Negative for depression, anxiety, suicide ideation, homicidal ideation, and hallucinations, Allergy/Immunology: Negative for hives, rash, and allergies, Endocrine: Negative for neck swelling, polydipsia, polyuria, polyphagia, and marked weight changes. 23:00 Neuro: Positive for altered mental status, dizziness, gait disturbance, weakness. Exam: 23:00 Constitutional: This is a well developed, well nourished patient who is awake, alert, jami and in no acute distress. Head/Face: Normocephalic, atraumatic. Eyes: Pupils equal round and reactive to light, extra-ocular motions intact. Lids and lashes normal. Conjunctiva and sclera are non-icteric and not injected. Cornea within normal limits. Periorbital areas with no swelling, redness, or edema. Neck: Trachea midline, no thyromegaly or masses palpated, and no cervical lymphadenopathy. Supple, full range of motion without nuchal rigidity, or vertebral point tenderness. No Meningismus. Chest/axilla: Normal chest wall appearance and motion. Nontender with no deformity. No lesions are appreciated. Cardiovascular: Regular rate and rhythm with a normal S1 and S2. No gallops, murmurs, or rubs. Normal PMI, no JVD. No pulse deficits. Respiratory: Lungs have equal breath sounds bilaterally, clear to auscultation and percussion. No rales, rhonchi or wheezes noted. No increased work of breathing, no retractions or nasal flaring. Abdomen/GI: Soft, non-tender, with normal bowel sounds. No distension or tympany. No guarding or rebound. No evidence of tenderness throughout. Back: No spinal tenderness. No costovertebral tenderness. Full range of motion. Male : Normal genitalia with no discharge or lesions. Skin: Warm, dry with normal turgor. Normal color with no rashes, no lesions, and no evidence of cellulitis. MS/ Extremity: Pulses equal, no cyanosis. Neurovascular intact. Full, normal range of motion. Neuro: Awake and alert, GCS 15, oriented to person, place, time, and situation. Cranial nerves II-XII grossly intact. Motor strength 5/5 in all extremities. Sensory grossly intact. Cerebellar exam normal. Normal gait. Psych: Awake, alert, with orientation to person, place and time. Behavior, mood, and affect are within normal limits. 23:00 ENT: Mouth: Oral mucosa: Gums: noted to have cellulitis, Tongue: is normal, abscess, is not appreciated, Posterior pharynx: is normal, no acute changes. 23:00 ECG was reviewed by the Attending Physician. Vital Signs: 20:57 BP 196 / 122; Pulse 81; Resp 18; Temp 98.4(O); Pulse Ox 100% on R/A; Weight 58.51 kg aa9 (R); Height 5 ft. 4 in. (162.56 cm) (R); Pain 0/10; 22:00 BP 207 / 108; Pulse 82; Resp 20 S; Pulse Ox 100% on R/A; aa9 22:40 BP 179 / 105; Pulse 95; Resp 20 S; Pulse Ox 100% on R/A; aa9 23:22 BP 152 / 86; Pulse 91; Resp 15 S; Pulse Ox 100% ; aa9 23:30 BP 148 / 74; Pulse 87; Resp 21; Pulse Ox 100% on R/A; aa9 23:35 BP 146 / 85; Pulse 87; Resp 22 S; Pulse Ox 100% on R/A; aa9 23:46 BP 146 / 85; Pulse 84; Pulse Ox 100% on R/A; aa9 08/05 00:30 BP 146 / 81; Pulse 83; Resp 13 S; Pulse Ox 100% ; aa9 08/04 20:57 Body Mass Index 22.14 (58.51 kg, 162.56 cm) aa9 08/04 22:00 notified provider aa9 MDM: 20:56 Patient medically screened. jami 23:08 Differential Diagnosis: CVA, electrolyte abnormality, hypoglycemia, pneumonia, sepsis, jami TIA, volume depletion. Data reviewed: vital signs, nurses notes, EMS record, lab test result(s), EKG, radiologic studies, CT scan, plain films. Consideration of Admission/Observation Patient was admitted/placed on observation. Escalation of care including admission/observation considered. Test considered but Not performed: MRI: not alivable. Care significantly affected by the following chronic conditions: Hypertension, Cancer, gout, cva. 08/04 20:57 Order name: Basic Metabolic Panel; Complete Time: 22:47 [facility] 08/04 20:57 Order name: CBC with Diff; Complete Time: 22:47 [facility] 08/04 20:57 Order name: LFT's; Complete Time: 22:47 [facility] 08/04 20:57 Order name: Magnesium; Complete Time: 22:47 [facility] 08/04 20:57 Order name: NT PRO-BNP; Complete Time: 22:47 [facility] 08/04 20:57 Order name: PT-INR; Complete Time: 22:47 [facility] 08/04 20:57 Order name: Troponin HS; Complete Time: 22:47 [facility] 08/04 20:57 Order name: XRAY Chest (1 view); Complete Time: 22:47 [facility] 08/04 20:57 Order name: SARS RAPID; Complete Time: 22:47 [facility] 08/04 20:57 Order name: CT Head Brain wo Cont; Complete Time: 21:41 [facility] 08/04 20:57 Order name: EKG; Complete Time: 20:58 [facility] 08/04 20:57 Order name: Cardiac monitoring; Complete Time: 21:21 [facility] 08/04 20:57 Order name: EKG - Nurse/Tech; Complete Time: :21 [facility] 08/04 20:57 Order name: IV Saline Lock; Complete Time: 21:38 [facility] 08/04 20:57 Order name: Labs collected and sent; Complete Time: 21:38 [facility] 08/04 20:57 Order name: O2 Per Protocol; Complete Time: : [facility] 08/04 20:57 Order name: O2 Sat Monitoring; Complete Time: 21:21 [facility] EC:00 Rate is 83 beats/min. QRS [place] is Normal. QRS interval is normal. QT interval is jami normal. No Q waves. T waves are Normal. No ST changes noted. Clinical impression: Abnormal EKG without significant change and No evidence of ischemia. Interpreted by me. Reviewed by me. Administered Medications: 20:05 Drug: NS 0.9% 1000 ml Route: IV; Rate: 75 ml/hr; Site: left antecubital; pf1 22:16 Drug: Norvasc (amlodipine) 10 mg Route: PO; aa9 23:50 Follow up: Response: No adverse reaction aa9 22:20 Drug: hydrALAZINE 10 mg Route: IVP; Site: left antecubital; aa9 23:50 Follow up: Response: No adverse reaction aa9 22:20 Drug: HydrALAZINE 25 mg Route: PO; aa9 23:50 Follow up: Response: No adverse reaction aa9 23:28 Drug: Labetalol 100 mg Route: PO; aa9 23:50 Follow up: Response: No adverse reaction; Blood pressure is lowered aa9 23:28 Drug: Labetalol 10 mg Route: IV; Rate: per protocol; Site: left antecubital; aa9 23:46 Follow up: BP 146 / 85; Pulse 84 bpm; Pulse Ox 100% RA; Response: No adverse reaction; aa9 IV Status: Completed infusion Disposition Summary: 08/04/22 23:12 Hospitalization Ordered Hospitalization Status: Observation jami Location: Telemetry/MedSurg (Inpatient) jami Condition: Stable jami Problem: new jami Symptoms: have improved jami Bed/Room Type: Standard jami Provider: Jaspal Díaz(08/04/22 23:12) jami Room Assignment: [facility](08/05/22 00:29) cg Diagnosis - Essential (primary) hypertension jami - Altered mental status, unspecified jami - Weakness jami Forms: - Medication Reconciliation Form jami - SBAR form jami Signatures: Dispatcher [employer] EDLanre Henning MD MD cha Attema, Lee, BURLAP BAG SEWER-C BURLAP BAG SEWER-Cla1 Jayla Blackwell RN RN Jade Alcala RN RN aa9 Sugey ventura RN RN pf1 Corrections: (The following items were deleted from the chart) 23:12 23:12 Raad Sanders cha jami 08/05 00:29 08/04 23:12 jami cg
--- NOTE | 2022-08-04 23:13 | ER ---
Nurse's Notes [facility] Name: Aravind Low Age: 71 yrs Sex: Male : 1950 Arrival Date: 08/04/2022 Time: 20:52 Bed 4 Private MD: Diagnosis: Essential (primary) hypertension;Altered mental status, unspecified;Weakness Presentation: 08/04 20:57 Chief complaint: EMS states: for the past week he has had difficulty moving around, aa9 unsteady gait. states,"He has lost about 20 lbs in the last month.". Coronavirus screen: Vaccine status: Patient reports receiving the 2nd dose of the covid vaccine. Ebola Screen: No symptoms or risks identified at this time. Initial Sepsis Screen: Does the patient meet any 2 criteria? No. Patient's initial sepsis screen is negative. Does the patient have a suspected source of infection? No. Patient's initial sepsis screen is negative. Risk Assessment: Do you want to hurt yourself or someone else? Patient reports no desire to harm self or others. Onset of symptoms was August 04, 2022. Care prior to arrival: Glucose check: 92. 20:57 Method Of Arrival: EMS: [facility] aa9 20:57 Acuity: ANTONIO 3 aa9 Triage Assessment: 21:01 General: Appears in no apparent distress. comfortable, slender, Behavior is calm, aa9 cooperative, appropriate for age. Pain: Denies pain. EENT: No signs and/or symptoms were reported regarding the EENT system. Neuro: Level of Consciousness is awake, alert, obeys commands, Oriented to person, place, Housecalls Nurse are equal bilaterally Moves all extremities. Speech is normal, Facial symmetry appears normal, Pupils are PERRLA, Intact. Respiratory: Airway is patent Respiratory effort is even, unlabored. GI:. : No signs and/or symptoms were reported regarding the genitourinary system. Derm: Skin is intact, is fragile. Musculoskeletal: No signs and/or symptoms reported regarding the musculoskeletal system. Historical: - Allergies: 21:00 No Known Allergies; aa9 - Home Meds: 21:00 amlodipine oral [Active]; aa9 - PMHx: 21:00 CVA; ESRD; Gout; Hypertension; kidney cancer; aa9 - Immunization history:: Client reports receiving the 2nd dose of the Covid vaccine. - Social history:: Smoking status: Patient reports the use of cigarette tobacco products, smokes one pack cigarettes per day. - Family history:: not pertinent. Screenin:04 Abuse screen: Denies threats or abuse. Denies injuries from another. Nutritional aa9 screening: Had unintentional weight loss of 10 pounds or more. Tuberculosis screening: No symptoms or risk factors identified. 08/05 00:55 [facility] ED Fall Risk Assessment (Adult) History of falling in the last 3 months, aa9 including since admission No falls in past 3 months (0 pts) Confusion or Disorientation Yes (5 pts) Intoxicated or Sedated No (0 pts) Impaired Gait No (0 pts) Mobility Assist Device Used No (0 pt) Altered Elimination No (0 pt) Score/Fall Risk Level 3 or more points = High Risk Oriented to surroundings, Maintained a safe environment. Assessment: 08/04 21:02 General: Appears in no apparent distress. comfortable, Behavior is calm, cooperative, aa9 appropriate for age, states, "He has been confused about the time and date for year now, his doctor said ot seems to be the beginning of Alzheimer's". 22:48 Reassessment: Patient appears in no apparent distress at this time. Patient and/or aa9 family updated on plan of care and expected duration. Pain level reassessed. Patient is alert, oriented x 3, equal unlabored respirations, skin warm/dry/pink. Pain: Denies pain. 08/05 01:29 Reassessment: Patient appears in no apparent distress at this time. Patient and/or aa9 family updated on plan of care and expected duration. Pain level reassessed. Patient is alert, oriented x 3, equal unlabored respirations, skin warm/dry/pink. notified of room change, denies concerns Patient denies pain at this time. Vital Signs: 08/04 20:57 BP 196 / 122; Pulse 81; Resp 18; Temp 98.4(O); Pulse Ox 100% on R/A; Weight 58.51 kg aa9 (R); Height 5 ft. 4 in. (162.56 cm) (R); Pain 0/10; 22:00 BP 207 / 108; Pulse 82; Resp 20 S; Pulse Ox 100% on R/A; aa9 22:40 BP 179 / 105; Pulse 95; Resp 20 S; Pulse Ox 100% on R/A; aa9 23:22 BP 152 / 86; Pulse 91; Resp 15 S; Pulse Ox 100% ; aa9 23:30 BP 148 / 74; Pulse 87; Resp 21; Pulse Ox 100% on R/A; aa9 23:35 BP 146 / 85; Pulse 87; Resp 22 S; Pulse Ox 100% on R/A; aa9 23:46 BP 146 / 85; Pulse 84; Pulse Ox 100% on R/A; aa9 08/05 00:30 BP 146 / 81; Pulse 83; Resp 13 S; Pulse Ox 100% ; aa9 08/04 20:57 Body Mass Index 22.14 (58.51 kg, 162.56 cm) aa9 08/04 22:00 notified provider aa9 ED Course: 20:52 Patient arrived in ED. vc1 20:56 Lanre Schroeder MD is Attending Physician. jami 21:00 Triage completed. aa9 21:02 Arm band placed on. aa9 21:04 Patient has correct armband on for positive identification. Placed in gown. Bed in low aa9 position. Call light in reach. Side rails up X2. Adult w/ patient. 21:24 CT Head Brain wo Cont In Process Unspecified. EDMS 21:38 Basic Metabolic Panel Sent. aa9 21:38 CBC with Diff Sent. aa9 21:38 LFT's Sent. aa9 21:38 Magnesium Sent. aa9 21:38 NT PRO-BNP Sent. aa9 21:38 PT-INR Sent. aa9 21:38 Troponin HS Sent. aa9 21:38 SARS RAPID Sent. aa9 21:48 XRAY Chest (1 view) In Process Unspecified. EDMS 22:04 Basic Metabolic Panel Sent. pf1 22:04 LFT's Sent. pf1 22:04 Magnesium Sent. pf1 22:04 NT PRO-BNP Sent. pf1 22:04 Troponin HS Sent. pf1 23:10 Raad Sanders MD is Hospitalizing Provider. jami 23:12 Jaspal Díaz MD is Hospitalizing Provider. jami 08/05 00:55 No provider procedures requiring assistance completed. aa9 01:29 Patient admitted, IV remains in place. aa9 Administered Medications: 08/04 20:05 Drug: NS 0.9% 1000 ml Route: IV; Rate: 75 ml/hr; Site: left antecubital; pf1 22:16 Drug: Norvasc (amlodipine) 10 mg Route: PO; aa9 23:50 Follow up: Response: No adverse reaction aa9 22:20 Drug: hydrALAZINE 10 mg Route: IVP; Site: left antecubital; aa9 23:50 Follow up: Response: No adverse reaction aa9 22:20 Drug: HydrALAZINE 25 mg Route: PO; aa9 23:50 Follow up: Response: No adverse reaction aa9 23:28 Drug: Labetalol 100 mg Route: PO; aa9 23:50 Follow up: Response: No adverse reaction; Blood pressure is lowered aa9 23:28 Drug: Labetalol 10 mg Route: IV; Rate: per protocol; Site: left antecubital; aa9 23:46 Follow up: BP 146 / 85; Pulse 84 bpm; Pulse Ox 100% RA; Response: No adverse reaction; aa9 IV Status: Completed infusion Medication: 23:42 VIS not applicable for this client. aa9 Outcome: 23:12 Decision to Hospitalize by Provider. jami 08/05 01:28 Admitted to Med/surg accompanied by tech, room 420, Report called to Sabrina HOYT aa9 Condition: stable Instructed on the need for admit. 01:30 Patient left the ED. aa9 Signatures: Dispatcher [employer] Lanre Chopra MD MD cha Calcote, Vanessa RN RN vc1 Jade Gooden RN RN aa9 Sugey ventura RN RN pf1
[2022-08-04] MEDS ORDERED: LABETALOL 20 MG/4ML SYRINGE IV ONE (23:25)
[2022-08-04] MEDS ORDERED: LABETALOL HCL 100 MG TAB ONE (23:25)
--- NOTE | 2022-08-05 00:31 | P.HP ---
Certification for Inpatient Patient admitted to: Observation With expected LOS: <2 Midnights Patient will require the following post-hospital care: None Practitioner: I am a practitioner with admitting privileges, knowledge of patient current condition, hospital course, and medical plan of care. Services: Services provided to patient in accordance with Admission requirements found in Title 42 Section 412.3 of the Code of Federal Regulations <Surya Hernandez - Last Filed: 08/05/22 00:26> Patient History Date of Service: 08/05/22 Reason for admission: Hypertensive urgency History of Present Illness: 71-year-old male with history of CKD 4, hypertension, previous CVA, gout presents to the emergency department for high blood pressure. Patient ports he notices blood pressures been running very high he has been on his medications for approximately a week he reports. MA time of evaluation there was no family present outside of that was documented in the nurses chart that patient's family reported he had been not acting himself over the course of the last 1 week, they also report that he had been told that he had early stages of dementia about a year ago and is not always oriented since then. Patient was very hypertensive during his stay in the emergency department with blood pressures in the 180s to 220s over 100s to 110s, his labs redemonstrated his CKD 4 his initial high- sensitivity troponin was 34.[address] elevation or STEMI criteria CT head no hemorrhage or acute intracranial findings identifiable. Patient has very severe for age chronic ischemic change and very advanced for age atrophy. Ventricles are in proportion. 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 Otherwise the intracranial findings are not clearly different from 2019. Patient given multiple antihypertensive agents in the emergency department including am lodipine, hydralazine, labetalol. His blood pressure has improved significantly at this time. ED provider wishes to admit under observation for hypertensive urgency. - Past Medical/Surgical History Diabetic: No -: Hypertension -: Chronic renal disease, stage IV -: History left renal mass with nephrectomy -: gout -: Left nephrectomy Psychosocial/ Personal History: Patient is - Family History Family History: Reviewed- Non-Contributory - Social History Smoking Status: Never smoker Alcohol use: No CD- Drugs: No Caffeine use: No Place of Residence: Home <Surya Hernandez - Last Filed: 08/05/22 00:26> Date of Service: 08/05/22 <Jaspal Díaz - Last Filed: 08/05/22 22:54> Allergies No Known Allergies Allergy (Verified 05/08/19 18:47) Home Medications: allopurinoL [Allopurinol] 300 mg PO DAILY 03/27/19 Amlodipine Besylate 10 mg PO DAILY #30 tablet 05/09/19 Atorvastatin Calcium [Lipitor] 40 mg PO BEDTIME #30 tab 05/09/19 Clopidogrel Bisulfate [Plavix*] 75 mg PO DAILY #30 tablet 05/09/19 Hydralazine [Apresoline*] 25 mg PO BID #60 tab 05/09/19 Lactulose 15 ml PO DAILY PRN #1 bottle 05/09/19 cloNIDine HCL [Catapres*] 0.3 mg PO BID #60 tablet 05/09/19 Review of Systems 10-point ROS is otherwise unremarkable <Surya Hernandez - Last Filed: 08/05/22 00:26> Physical Examination - Physical Exam General: Alert, In no apparent distress, Oriented x2 HEENT: Atraumatic, PERRLA, Mucous membr. moist/pink, EOMI, Sclerae nonicteric Neck: Supple, 2+ carotid pulse no bruit, No LAD, Without JVD or thyroid abnormality Respiratory: Clear to auscultation bilaterally, Normal air movement Cardiovascular: Regular rate/rhythm, Normal S1 S2 Capillary refill: <2 Seconds Gastrointestinal: Normal bowel sounds, No tenderness Musculoskeletal: No tenderness Integumentary: No rashes Neurological: Normal gait, Normal speech, Normal strength at 5/5 x4 extr, Normal tone, Normal affect - Studies Laboratory Data (last 24 hrs) 08/04/22 22:00: Sodium 141, Potassium 3.8, BUN 27 H, Creatinine 3.17 H, Glucose 90, Magnesium 2.3, Total Bilirubin 0.4, AST 12 L, ALT 19, Alkaline Phosphatase 77 08/04/22 21:29: PT 10.5, INR 0.95 08/04/22 21:29: WBC 4.60, Hgb 15.4, Hct 45.5, Plt Count 209 <Surya Hernandez - Last Filed: 08/05/22 00:26> Assessment and Plan - Plan Assessment: Hypertensive urgency CKD 4 AMS with previous CVA, suspected underlying dementia Plan: Hypertensive urgency Blood pressure significantly improved at this time, patient reports he has been without his blood pressure medications for about a week, it does not appear that he had any prescriptions filled from local pharmacy in more than 1 year. Patient was previously only amlodipine 10 mg daily, hydralazine 25 p.o. twice daily, clonidine 0.3 3 times daily. I have continued amlodipine, hydralazine with increased dose to 3 times daily. Will monitor blood pressure throughout hospitalization, trend troponins. CKD 4 At baseline. Monitor renal function daily. Counseled nephrology if there is significant worsening. AMS with previous CVA, suspected underlying dementia Will consult neurology, CT without acute findings. Patient without focal neurological deficits. Continue aspirin, Plavix. PT consult. DVT PPX: Lovenox Code status: Full Discharge Plan: Home Plan to discharge in: 24 Hours - Advance Directives Does patient have a Living Will: No Does patient have a Durable POA for Healthcare: No - Code Status/Comfort Care Code Status Assessed: Yes (Full code) Critical Care: No Time Spent Managing Pts Care (In Minutes): 55 <Surya Hernandez - Last Filed: 08/05/22 00:26> - Plan noted to be in afib later this morning, resolved with lopressor continue metoprolol cardio consulted for NSTEMI monitor / titrate meds for afib, HTN, and nstemi start heparin drip per cardiology stress test sunday nephro consult <Jaspal Díaz - Last Filed: 08/05/22 22:54>
[2022-08-05] MEDS ORDERED: ONDANSETRON 4 MG/2 ML VIAL IV PRN (01:34)
[2022-08-05 04:50] LABS: Absolute Lymphocytes (CBC) 0.5 K/uL (0.7-4.9); Hematocrit 38.8 % (39.6-49.0); Lymphocytes % 8.6 % (15.3-44.8); MPV 7.8 fL (7.6-11.3); RBC Red Blood Cell Count 4.51 M/uL (4.33-5.43)
[2022-08-05 05:31] LABS: Potassium 3.7 mmol/L (3.5-5.1); Thyroid Stimulating Hormone 2.02 uIU/mL (0.358-3.740)
[2022-08-05] MEDS ORDERED: ENOXAPARIN 30 MG/0.3 ML SQ SCH (09:00)
[2022-08-05] MEDS: CLOPIDOGREL 75 MG TABLET PO SCH (09:28)
[2022-08-05] MEDS: HYDRALAZINE HCL 25 MG TABLET PO SCH ×3 (09:28→20:40)
[2022-08-05] MEDS: ASPIRIN EC 81 MG TAB PO SCH (09:29)
[2022-08-05] MEDS: AMLODIPINE 10 MG TAB PO SCH (09:29)
[2022-08-05] MEDS ORDERED: METOPROLOL TARTRATE 5 MG/5 ML INJ IV STA (12:08)
--- NOTE | 2022-08-05 17:01 | RAD REPORT ---
EXAM DESCRIPTION: RAD - Abdomen 1 View (KUB) - 08/05/2022 4:54 pm CLINICAL HISTORY: possible obstruction COMPARISON: No comparisons FINDINGS: Nonobstructive bowel gas pattern. No acute osseous abnormality.Visualized lungs are unrema rkable.No abnormal calcifications. Moderate stool in the sigmoid and rectum. Surgical clips in the ep igastrium and left lower quadrant. IMPRESSION: Nonobstructive bowel gas pattern.
[2022-08-05] MEDS: HEPARIN/D5W 25,000 UNIT/500 ML BAG IV SCH (17:41)
[2022-08-05] MEDS: METOPROLOL TAR 25 MG TAB PO SCH (17:45)
--- NOTE | 2022-08-05 18:35 | CON ---
Date of Consultation: 08/05/2022 Reason For Consultation: Elevated troponin. History Of Present Illness: This is a 71-year-old male with history of chronic kidney disease, hyper tension, previous CVA, presented to the emergency room with high blood pressure and lethargy, altered mental status. The patient denies having any chest pain or any history of cardiac disease; however, he is an active smoker close to a pack per day. Appears to be confused and very poor historian. Past Medical History: As outlined above in the HPI. Medications: Refer to reconciliation sheet for detailed list. Allergies: NO KNOWN DRUG ALLERGIES. Family History: No premature coronary artery disease or cancer. Social History: He is a smoker. Does not drink or use any drugs. Review of Systems: All systems reviewed and they were negative except what mentioned in HPI. Physical Examination: Vital Signs: Reviewed. Head and Neck: Pupils are equal, reactive to light. Intact eye movements. No JVD. No cervical lym phadenopathy. Neck is supple. Thyroid is not enlarged. Lungs: Clear to auscultation bilaterally. No rhonchi, wheezing, or crackles. No accessory muscle u se. Heart: Regular rate and rhythm. No extra sounds. Abdomen: Soft, nontender. Bowel sounds positive. No organomegaly. No masses or hernia. No rigidi ty or rebound. Extremities: No clubbing or cyanosis. Intact pulses. Skin: No rash. Neurologic: Alert, awake, oriented x3. No acute focal deficits appreciated. Investigations: Creatinine 3.1, troponin 2669. Assessment And Recommendations: 1.Non-ST elevation myocardial infarction. Start him on IV heparin drip and beta-nahid to be juliana nued and aspirin 81 mg daily. The plan for an echocardiogram and a nuclear stress test on Sunday. I f the stress test showed large artery of ischemia, then we will justify contrast exposure for left he art catheterization despite the fact that he has advanced kidney disease. 2.Chronic kidney disease. Consult Nephrology as likely the patient will need a coronary angiogram d uring this hospital stay. 3.Dyslipidemia. Continue statin. 4.Hypertension. Blood pressure is improving. Continue current medications. SR/MODL Voice ID: [id number] Report ID: [id number]
[2022-08-05] MEDS ORDERED: HALOPERIDOL LACT 5 MG/ML INJ IV ONE (20:25)
[2022-08-05] MEDS: ATORVASTATIN 40 MG TAB PO SCH (20:40)
[2022-08-06 06:36] LABS: Absolute Lymphocytes (CBC) 0.8 K/uL (0.7-4.9); Hematocrit 41.2 % (39.6-49.0); Lymphocytes % 16.2 % (15.3-44.8); MCV 86.4 fL (80-100); MPV 7.4 fL (7.6-11.3); RBC Red Blood Cell Count 4.76 M/uL (4.33-5.43)
[2022-08-06 06:52] LABS: Potassium 3.8 mmol/L (3.5-5.1)
[2022-08-06] MEDS: METOPROLOL TAR 25 MG TAB PO SCH ×2 (06:55→18:22)
[2022-08-06] MEDS: ASPIRIN EC 81 MG TAB PO SCH (09:26)
[2022-08-06] MEDS: AMLODIPINE 10 MG TAB PO SCH (09:26)
[2022-08-06] MEDS: CLOPIDOGREL 75 MG TABLET PO SCH (09:26)
[2022-08-06] MEDS: HYDRALAZINE HCL 25 MG TABLET PO SCH ×3 (09:27→20:54)
--- NOTE | 2022-08-06 17:11 | P.PN ---
Date of Service: 08/06/22 Subjective: Slight confusion Confusions as agitation yesterday's assessment Denies chest pain/shortness of breath Remains in sinus rhythm ROS: 10 point ROS as noted above, otherwise negative Physical exam GEN: Alert, orientedx2, NAD HEENT: Normal conjunctiva, sclera anicteric CV: Regular rate and rhythm, no edema Pulm: Non-labored respirations on room air ABD: Soft, nontender, nondistended Neuro: slow/broken speech, normal affect; gait instability Problem List Hypertensive urgency CKD 4 prior CVA, suspected underlying dementia NSTEMI afib, new onset adjust BP medications for better control Patient was previously only amlodipine 10 mg daily, hydralazine 25 p.o. twice daily, clonidine 0.3 3 times daily. CKD 4 at baseline, nephrology consulted per cardio recommendation; as he will likely require cardiac cath cardiology consulted, NSTEMI, no st-t wave changes new onset afib noted 08/05, quickly converted after 1 dose of IV lopressor, continue PO lopressor, anticoagulation with heparin drip echo and stress test ordered for 08/07 AMS - suspect secondary to dementia / described it as patient staring off / not making sense the night before admission neuro consulted CT without acute findings no focal finding VTE: lovenox Code: full Dispo: home, ~1-2 days
[2022-08-06] MEDS: CLONIDINE HCL 0.3 MG TAB PO SCH (20:53)
[2022-08-06] MEDS: OLANZapine 2.5 MG TAB PO SCH (20:54)
[2022-08-06] MEDS: ATORVASTATIN 40 MG TAB PO SCH (20:54)
--- NOTE | 2022-08-06 22:02 | CON ---
Date of Consultation: 08/06/2022 Chief Complaint: Chronic kidney disease stage 4, hypertensive urgency, and abnormal renal function. History Of Present Illness: The patient is a 71-year-old man with history of chronic kidney disease stage 4, hypertension, gout, and coronary artery disease. He previously had CVA and he has long-term history of hypertension. Currently his blood pressure at home was very high despite medication. Th e patient cannot provide medical history. He has history of early stages of dementia. He appears to be lethargic and he denies chest pain. Denies headache or vision changes. [facility], blood pressure was severely elevated. Systolic blood pressure was ranging from 180-220/1 00 and 110. Labs showed elevated BUN and creatinine. Troponin was 34.[address] elevation . The patient had a CT scan of the head, which did not demonstrate hemorrhage or acute intracranial findings. The patient has severe chronic ischemic changes and advanced for age atrophy according to the radiology imaging studies. Otherwise intracranial findings not clearly different from 2019. The patient was treated with multiple antihypertensive agents in the emergency room including hydralazin e, labetalol, and amlodipine and was transferred to the floor. Cardiology consultation was requested and the patient is to have cardiac catheterization. The patient has history of left renal mass and nephrectomy was done last year. He has history of gout and he denies recent gout flare. He denies h istory of lower urinary tract symptoms. Denies history of kidney colic. Review of Systems: General: The patient denies fever or chills. Eyes: Denies new vision changes. Ears, Nose, And Throat: Denies sore throat or earache. Respiratory: Denies wheezing. Heart: Denies chest pain. He had chest pain on arrival to emergency room associated with severe unc ontrolled hypertension and hypertensive urgency. GI: Denies nausea or vomiting. : Denies hematuria or dysuria. All other systems reviewed and all are negative. Past Medical History: Hypertension, chronic kidney disease stage 4, history of left renal mass with nephrectomy, and gout. Family History: No kidney disease. Social History: He denies tobacco, alcohol, or illicit drugs. Physical Examination: General: The patient is oriented x2 and alert. Eyes: Anicteric sclerae. EOMI. Ears, Nose, Mouth, and Throat: Oral mucosa moist. No pallor. Neck: Supple. No bruits. Lungs: Clear to auscultation bilaterally. Heart: S1, S2. No pericardial friction or rub. Abdomen: Soft, benign, nontender. Extremities: No edema. Laboratory Data: Sodium 141, potassium 3.8, BUN 27, creatinine 3.17, glucose 90, magnesium 2.3, AST 12, ALT 19, and total bilirubin 0.4, WBC 4.6, hemoglobin 16.4, and platelet count 209. Impression And Plan: 1.Chronic kidney disease stage 4. The patient has advanced chronic kidney disease. Plan is to chec k urinalysis to screen for proteinuria and check for any evidence of abnormal urinary sediment to rul e out nephritis. The patient is to have cardiac catheterization. Plan is to start IV fluids and sta rt Mucomyst. 2.Hypertensive urgency. Blood pressure is improving. Continue current medications. The patient is taking amlodipine, hydralazine, and clonidine. 3.Underlying dementia with some altered mental status. Workup per Primary Team. 4.History of kidney mass. The patient had follow up with Urology in [place]. 5.Anemia. Monitor hemoglobin level and check iron study. EB/MODL Voice ID: [id number] Report ID: [id number]
[2022-08-07 03:43] LABS: Absolute Lymphocytes (CBC) 1.1 K/uL (0.7-4.9); Hematocrit 37.3 % (39.6-49.0); Lymphocytes % 23.4 % (15.3-44.8); MCV 86.8 fL (80-100); MPV 7.9 fL (7.6-11.3)
[2022-08-07 03:58] LABS: Potassium 3.8 mmol/L (3.5-5.1)
[2022-08-07] MEDS: METOPROLOL TAR 25 MG TAB PO SCH ×2 (06:00→17:04)
--- NOTE | 2022-08-07 08:30 | RAD REPORT ---
EXAM DESCRIPTION: US - Renal Ultrasound-Complete - 08/07/2022 2:44 am CLINICAL HISTORY: ckd 4 Flank pain COMPARISON: Renal Ultrasound-Complete dated 12/06/2016 FINDINGS: The left kidney surgically absent. Right kidney demonstrates multiple simple cysts. Right renal echogenicity is increased. No hydronephr osis. Diminished corticomedullary differentiation. Right kidney measures 7.7 x 5.6 x 4.0 cm The urinary bladder is incompletely distended without gross abnormality seen. IMPRESSION: Left nephrectomy. Echogenic right kidney compatible with underlying medical renal disease.
[2022-08-07] MEDS: ASPIRIN EC 81 MG TAB PO SCH (09:14)
[2022-08-07] MEDS: CLONIDINE HCL 0.3 MG TAB PO SCH ×3 (09:14→21:07)
[2022-08-07] MEDS: AMLODIPINE 10 MG TAB PO SCH (09:14)
[2022-08-07] MEDS: CLOPIDOGREL 75 MG TABLET PO SCH (09:14)
[2022-08-07] MEDS: HYDRALAZINE HCL 25 MG TABLET PO SCH ×3 (09:14→21:06)
[2022-08-07] MEDS: ACETYLCYST 20% 800 MG/4 ML VIAL PO SCH ×2 (09:15→21:00)
--- NOTE | 2022-08-07 09:15 | PN ---
Date of Progress Note: 08/07/2022 Subjective: Seen by bedside. Doing well. No complaint. No chest pain, but he is confused. Review of Systems: No chest pain, shortness of breath, orthopnea, or cough. No nausea, vomiting, diarrhea. All other s ystems reviewed are negative. Physical Examination: Vital Signs: Temperature is 97.2, pulse 63, breathing 19, blood pressure 141/75, saturating 96% on r oom air. General: Pleasant elderly male, in no distress. Head and Neck: Pupils are equal, reactive to light. Intact eye movements. No JVD. No cervical lym phadenopathy. Neck is supple. Thyroid is not enlarged. Lungs: Clear to auscultation bilaterally. No rhonchi, wheezing, or crackles. No accessory muscle u se. Heart: Regular rate and rhythm. No extra sounds. Abdomen: Soft, nontender. Bowel sounds positive. No organomegaly. No masses or hernia. No rigidi ty or rebound. Extremities: No edema, clubbing, or cyanosis. Intact pulses. Skin: No rashes or nodules. Neuro: Alert, awake, oriented x3. No acute focal deficits appreciated. Investigations: BUN 31, creatinine 3.2. Assessment/recommendations: 1.Non-ST elevation myocardial infarction with advanced kidney disease. Await on stress test today a nd an echo. If there is significant ischemia on stress test, then we will justify the risk of contra st exposure due to advanced kidney disease. Meanwhile, continue aspirin and heparin pending the stre ss test. 2.Hypertension. Blood pressure is controlled. Continue home medications. SR/MODL Voice ID: [id number] Report ID: [id number]
[2022-08-07] MEDS: NA CHLORIDE 0.9% 1,000 ML IV SCH (09:16)
[2022-08-07] MEDS: HEPARIN/D5W 25,000 UNIT/500 ML BAG IV SCH (14:39)
--- NOTE | 2022-08-07 16:56 | EKG ---
Test Date: 2022-08-05 Test Time: 11:54:11 Financial Analyst Intern: HUNTER MEASUREMENT RESULTS: Intervals: Rate: 106 CO: 156 QRSD: 84 QT: 366 QTc: 486 [place]: P: 48 CO: 156 QRS: 58 T: 71 INTERPRETIVE STATEMENTS: Sinus tachycardia Possible Left atrial enlargement Left ventricular hypertrophy Abnormal ECG Compared to ECG 08/04/2022 21:17:42 Sinus rhythm no longer present Sinus arrhythmia no longer present Early repolarization no longer present ST (T wave) deviation no longer present Electronically Signed On 08-07-22 16:54:37 DIVISION MERCHANDISE MANAGER by Clark Fuller
--- NOTE | 2022-08-07 16:59 | EKG ---
Test Date: 2022-08-04 Test Time: 21:17:42 Set Up Inspector: VERONICA MEASUREMENT RESULTS: Intervals: Rate: 83 NC: 168 QRSD: 76 QT: 390 QTc: 458 [place]: P: 73 NC: 168 QRS: 60 T: 75 INTERPRETIVE STATEMENTS: Normal sinus rhythm with sinus arrhythmia Left ventricular hypertrophy with repolarization abnormality ST elevation, consider early repolarization, pericarditis, or injury Abnormal ECG Compared to ECG 08/04/2022 21:17:10 Early repolarization now present ST (T wave) deviation now present Atrial premature complex(es) no longer present T-wave abnormality no longer present Possible ischemia no longer present Prolonged QT interval no longer present Electronically Signed On 08-07-22 16:55:46 REHABILITATION LIAISON by Clark Fuller
[2022-08-07] MEDS: OLANZapine 2.5 MG TAB PO SCH (21:07)
[2022-08-07] MEDS: ATORVASTATIN 40 MG TAB PO SCH (21:07)
--- NOTE | 2022-08-07 22:07 | CON ---
Date of Consultation: 08/07/2022 Reason For Consultation: Consultation called because of altered mental status. History Of Present Illness: Mr. Low is a 71-year-old patient admitted to [facility] on , today is 08/07/2022 with hypertensive urgency. His sister was at the bedside and provided information. He has a history of stage 4 kidney disease, hypertension, reported prior stroke and dem entia per his sister. She felt and his , who actually was not in the room at the time, that he w as slightly more confused. At baseline, he does have difficulty with recall, conversations, finding his way around, but is able to follow simple instructions, takes care of himself mostly, can ambulate with a walker around his house and is able to do some ordinary activities of daily living. It is no t clear for how long, but perhaps for least a week, the patient has not been reportedly acting himsel f. He then was brought in and found to have blood pressures with systolics ranging 180s to 220s over 100 to 110. And he was also of course with stage 4 kidney disease and has had elevated troponins. However, his workup did not show ST-segment elevation or criteria for ST-segment elevation and myocar dial infarction. Head CT scan showed no acute intracranial abnormalities, but there was severe age r elated chronic small vessel ischemic disease noted to be advanced for age with his ventricles enlarge d in proportion. There was an old infarct in the medial inferior right cerebellum that was new clary red to a study from 2019. The patient in the hospital has received IV hydration and his sister, who is interacting with him, believes he is moving towards his baseline level of cognitive functioning. His blood work did not show any significant evidence of an infection. White blood cell count was nor mal. Hemoglobin essentially unremarkable. His creatinine was elevated at 3.18, and he did have elev ated troponins. His cholesterol with slightly elevated with LDL 104 and HDL 92. TSH normal. Liver function studies unremarkable. COVID-19 testing was negative. His chest x-ray showed no evidence of any abnormalities. Lungs were clear. Again, he has received IV hydration and his sister notes he i s moving towards his baseline and has been on a heparin drip. Past Medical History: Hypertension, chronic stage 4 kidney disease, chronic dementia, and gout. Past Surgical History: Left renal mass with nephrectomy. He has a single kidney. Family History: Noncontributory. Social History: The patient is and lives with his . No alcohol, tobacco, or IV drug use . Review of Systems: Not quite reliable at this point, but the patient's sister said she does not know if he has had a rec ent fever or chills or nausea or vomiting or any psychiatric type complaints. Physical Examination: Vital Signs: Blood pressure 125/63, pulse 62, respiratory rate 16, temperature 99.4, and oxygen satu ration 97%. General: Mr. Low is lying in bed, IV in place. He appears to be somewhat older than his stated ag e, mildly disheveled otherwise. HEENT: He is normocephalic and atraumatic. Sclerae appear anicteric. Oropharynx moist. Neck: Supple. Chest: Clear. Abdomen: Soft. Extremities: No significant edema or cyanosis. Neurologic: He is alert. He is oriented to person, not to exact situation or place, but followed co mmands with some repeated instructions such to cross the midline including take the left index finger and touch his right ear. He did that after 3 attempts and he did it correctly. Otherwise in terms of cranial nerves, he has no obvious focal cranial nerve deficits. He has symmetric strength in the upper and lower extremities. Symmetric sensory responses and reflexes in the upper and lower extremi ties. There was an attempt made to have him ambulate with physical therapist with a rolling walker, but that was not successful and the patient will be ambulated again in the morning. Assessment: Mr. Low is a 71-year-old patient with likely vascular dementia who appears to be at [facility] cognitive functioning. He has no evidence of focal neurological deficits or central nervous sy stem infection. At this point, no additional neurological workup is required. He may benefit from p hysical therapy perhaps Home Health when he is back home. It is not likely that cognitive therapy wi ll be helpful given the findings on his brain imaging and the likelihood of chronic vascular dementia . In any event, it may still be attempted. At this point, his medications should include aspirin 81 mg and Plavix 75 mg daily. Continue with statin and beta nahid and address his stage 4 renal dise ase as per Nephrology. After the patient is discharged, he may follow up in Dr. Hector's clinic wi thin a month. JULIANNE/KOLE Voice ID: [id number] Report ID: [id number]
--- NOTE | 2022-08-07 22:09 | P.PN ---
Date of Service: 08/07/22 Subjective: with some confusion / sundowning last night denies chest pain, no nausea/vomiting ROS: 10 point ROS as noted above, otherwise negative Physical exam GEN: Alert, orientedx2, NAD HEENT: Normal conjunctiva, sclera anicteric CV: Regular rate and rhythm, no edema Pulm: Non-labored respirations on room air ABD: Soft, nontender, nondistended Neuro: slow/broken speech, normal affect; gait instability Problem List Hypertensive urgency CKD 4 prior CVA, suspected underlying dementia NSTEMI afib, new onset adjust BP medications for better control Patient was previously only amlodipine 10 mg daily, hydralazine 25 p.o. twice daily, clonidine 0.3 3 times daily. CKD 4 at baseline, nephrology consulted per cardio recommendation; as he will likely require cardiac cath cardiology consulted, NSTEMI, no st-t wave changes new onset afib noted 08/05, quickly converted after 1 dose of IV lopressor, continue PO lopressor, anticoagulation with heparin drip echo and stress test ordered for 08/07 AMS - suspect secondary to dementia / sundowning described it as patient staring off / not making sense the night before admission neuro consulted CT without acute findings no focal finding VTE: heparin drip Code: full Dispo: home, ~1-2 days
--- NOTE | 2022-08-07 23:12 | PN ---
Date of Progress Note: 08/07/2022 Chief Complaint: Chronic kidney disease stage 4, hypertensive urgency, and abnormal renal function t ests. Subjective: The patient has multiple medical problems including history of chronic kidney disease st age 6, hypertension, gout, and coronary artery disease. Previously he had CVA and he has a longstand ing history of hypertension. He is to have cardiac evaluation with possible cardiac catheterization and he was found to have elevated troponin. EKG did not show ST elevation. The patient developed pr ogressively worse confusion, altered mental status, and agitation and he is undergoing workup for enc ephalopathy and possible stroke. Review of Systems: The patient denies complaints. Physical Examination: Lungs: Clear to auscultation bilaterally. Heart: S1, S2. Abdomen: Soft, benign. Extremities: No edema. Impression And Plan: Chronic kidney disease stage 4. The patient is on IV fluids. Prior to the car diac catheterization, he was started on Mucomyst. The patient developed altered mental status enceph alopathy. He is undergoing workup for possible stroke. Neurology workup was initiated. The patient has underlying hypertensive kidney disease. Continue blood pressure medication. Monitor electrolyt es and avoid nephrotoxic medication. EB/MODL Voice ID: [id number] Report ID: [id number]
[2022-08-08] MEDS: NA CHLORIDE 0.9% 1,000 ML IV SCH ×2 (04:55→21:48)
[2022-08-08] MEDS: METOPROLOL TAR 25 MG TAB PO SCH ×2 (06:00→17:11)
[2022-08-08 06:28] LABS: Albumin 2.8 g/dL (3.4-5.0); Magnesium 2.1 mg/dL (1.6-2.4); Phosphorus 3.4 mg/dL (2.5-4.9); Potassium 4.1 mmol/L (3.5-5.1)
--- NOTE | 2022-08-08 08:45 | ECHO ---
HEIGHT: 5 ft 4 in WEIGHT: 117 lb 1.6 oz DATE OF STUDY: 08/07/[address]: Jaspal Díaz MD 2-DIMENSIONAL: YES M.MODE: YES DOPPLER: YES COLOR FLOW: YES TDS: NO PORTABLE: YES DEFINITY: NO BUBBLE STUDY: NO DIAGNOSIS: NSTEMI, ATRIAL FIBRILLATION CARDIAC HISTORY: CATHERIZATION: NO SURGERY: NO PROSTHETIC VALVE: NO PACEMAKER: NO MEASUREMENTS (cm) DIASTOLIC (NORMALS) SYSTOLIC (NORMALS) IVSd 1.2 (0.6-1.2) LA Diam 2.6 (1.9-4.0) LVEF 60-65% LVIDd 4.1 (3.5-5.7) LVIDs 2.5 (2.0-3.5) %FS 39% LVPWd 1.2 (0.6-1.2) Ao Diam 2.5 (2.0-3.7) 2 DIMENSIONAL ASSESSMENT: RIGHT ATRIUM: NORMAL LEFT ATRIUM: NORMAL RIGHT VENTRICLE: NORMAL LEFT VENTRICLE: LEFT VENTRICULAR HYPERTROPHY TRICUSPID VALVE: MILD TRICUSPID REGURGITATION MITRAL VALVE: MILD MITRAL REGURGITATION PULMONIC VALVE: NORMAL AORTIC VALVE: NORMAL PERICARDIAL EFFUSION: NONE AORTIC ROOT: NORMAL LEFT VENTRICULAR WALL MOTION: NORMAL. DOPPLER/COLOR FLOW: SEE BELOW. COMMENTS: 1. NORMAL LEFT VENTRICULAR EJECTION FRACTION 60-65% 2. NORMAL WALL MOTION 3. SEVERE CONCENTRIC LEFT VENTRICULAR HYPERTROPHY WITH INTRA-CAVITY GRADIENT OF 50mmHg. 4. MILD MITRAL REGURGITATION 5. MILD TRICUSPID REGURGITATION. TECHNOLOGIST: TAPAN MORRELL
[2022-08-08] MEDS: ACETYLCYST 20% 800 MG/4 ML VIAL PO SCH ×3 (09:00→21:00)
[2022-08-08] MEDS: CLOPIDOGREL 75 MG TABLET PO SCH (09:07)
[2022-08-08] MEDS: HYDRALAZINE HCL 25 MG TABLET PO SCH ×3 (09:07→21:49)
[2022-08-08] MEDS: CLONIDINE HCL 0.3 MG TAB PO SCH ×3 (09:07→21:49)
[2022-08-08] MEDS: ASPIRIN EC 81 MG TAB PO SCH (09:07)
[2022-08-08] MEDS: AMLODIPINE 10 MG TAB PO SCH (09:07)
--- NOTE | 2022-08-08 13:33 | PN ---
Date of Progress Note: 08/08/2022 Subjective: Seen by bedside. No chest pain. Review of Systems: No chest pain, shortness of breath, orthopnea, cough. No nausea, vomiting, diarrhea. All other syst ems reviewed and they were negative. Physical Examination: Vital Signs: Temperature is 97.5, pulse 57, breathing at 16, blood pressure 137/66, saturating 99%. GENERAL: Pleasant elderly male, in no distress. Head and Neck: Pupils are equal, reactive to light. Intact eye movements. No JVD. No cervical lym phadenopathy. Neck is supple. Thyroid is not enlarged. Lungs: Clear to auscultation bilaterally. No rhonchi, wheezing, or crackles. No accessory muscle u se. Heart: Regular rate and rhythm. No extra sounds. Abdomen: Soft, nontender. Bowel sounds positive. No organomegaly. No masses or hernia. No rigidi ty or rebound. Extremities: No edema, clubbing, or cyanosis. Intact pulses. Skin: No rash. Neurologic: Alert, awake. No acute focal deficits appreciated. Investigations: BUN 34, creatinine 3.1, hemoglobin is 12.5. Assessment And Recommendations: 1.Non-ST elevation myocardial infarction. Await on stress test to be done. On echo, his ejection f raction is normal; however, await on stress test to make final decision on coronary angiogram due to advanced kidney disease. 2.Advanced kidney disease. The patient is being followed by Nephrology. Need to do a coronary shakira ogram during this hospital stay based on the stress test results. 3.Hypertension. Blood pressure is controlled. SR/MODL Voice ID: [id number] Report ID: [id number]
--- NOTE | 2022-08-08 14:23 | PN ---
Date of Progress Note: 08/08/2022 Subjective: The patient was admitted with urgent hypertension. The patient had altered mental statu s. The patient planned for cardiac cath. The patient is still altered. Physical Examination: Vital Signs: Blood pressure 159/79, pulse of 61, afebrile. The patient had good urine output of 600 . Chest: Clear to auscultation. Heart: S1, S2 regular. Abdomen: Soft, nontender. Extremities: No edema. Neuro: Sleepy. No focality. Laboratory Data: Hemoglobin 12.5. Sodium 139, potassium 4.1, bicarb 22, BUN 34, creatinine 3, GFR o f 20, calcium 8.9, phosphorus 3.4, magnesium 2.1, albumin 2.8. Corrected calcium 9.6. Renal ultraso und multiple cysts, small kidney with left nephrectomy. Echocardiogram done yesterday, normal ejecti on fraction. Current Medications: The patient on include aspirin, Plavix, heparin, atorvastatin, amlodipine 10 mg , hydralazine 25 t.i.d., clonidine 0.3 t.i.d., metoprolol IV fluid at 50 per hour. Reviewing the rec ord for the patient. The patient at base with creatinine on the 3. Assessment And Plan: 1.Chronic kidney disease, stage IV, solitary kidney with mostly secondary to renal mass loss/hyperte nsion, nephrosclerosis, small kidney. Currently, blood pressure been controlled. I am going to cont inue current treatment. Given the stabilization in the kidney function, I am going to start the jeremiah ent on low dose of lisinopril, and we will monitor the kidney. 2.Hypertension with urgent hypertension, currently controlled, with central manifestation adding lis inopril. Continue current treatment. Workup still pending. Cardiac workup was negative for valvula r disease. 3.Altered mental status, questionable secondary to urgent hypertension. We will follow up with Neur ology. Blood pressure currently controlled. 4.Non-ST elevation myocardial infarction as by Cardiology. 5.Hypokalemia, resolved. DULCE MARIA/KOLE Voice ID: [id number] Report ID: [id number]
--- NOTE | 2022-08-08 17:59 | P.PN ---
Subjective Date of Service: 08/08/22 Chief Complaint: Hypertensive urgency Patient not able to give subjective complaint. No issues overnight. No agitation. Physical Examination - Vital Signs Temperature: 97.6 F Blood Pressure: 147/70 Pulse: 62 Respirations: 16 Pulse Ox (%): 98 Assessment And Plan - Plan Physical exam GEN: Alert, orientedx2, NAD HEENT: Normal conjunctiva, sclera anicteric CV: Regular rate and rhythm, no edema Pulm: Non-labored respirations on room air ABD: Soft, nontender, nondistended Neuro: slow/broken speech, normal affect; gait instability Problem List Hypertensive urgency CKD 4 prior CVA, suspected underlying dementia NSTEMI afib, new onset Continue to adjust antihypertensive for BP control Patient seen by cardio who recommended stress test before justifying cardiac cath given patient's impaired renal function. CKD 4 at baseline, nephrology input appreciated. new onset afib noted 08/05, quickly converted after 1 dose of IV lopressor, continue PO lopressor. Continue heparin drip. Echocardiogram: LV hypertrophy, normal EF. I am told stress test may not be available till Sunday. Patient with dementia with possible . CT without acute findings no focal finding. neuro input appreciated. VTE: heparin drip Code: full
[2022-08-08] MEDS: ATORVASTATIN 40 MG TAB PO SCH (21:49)
[2022-08-08] MEDS: OLANZapine 2.5 MG TAB PO SCH (21:50)
[2022-08-09] MEDS: HEPARIN/D5W 25,000 UNIT/500 ML BAG IV SCH (01:59)
[2022-08-09 04:41] LABS: Albumin 2.6 g/dL (3.4-5.0); Phosphorus 3.6 mg/dL (2.5-4.9); Potassium 3.9 mmol/L (3.5-5.1); Thyroid Stimulating Hormone 1.15 uIU/mL (0.358-3.740); Uric Acid 8.5 mg/dL (3.5-7.2)
[2022-08-09 05:50] LABS: Absolute Lymphocytes (CBC) 0.8 K/uL (0.7-4.9); Hematocrit 36.1 % (39.6-49.0); Lymphocytes % 13.6 % (15.3-44.8); MCV 86.4 fL (80-100); MPV 8.4 fL (7.6-11.3); RBC Red Blood Cell Count 4.17 M/uL (4.33-5.43)
[2022-08-09] MEDS: METOPROLOL TAR 25 MG TAB PO SCH ×2 (06:35→17:31)
--- NOTE | 2022-08-09 09:14 | PN ---
Date of Progress Note: 08/09/2022 Subjective: Seen by bedside. Doing clinically well. No new complaints. Review of Systems: No chest pain, shortness of breath, orthopnea, cough. No nausea, vomiting, diarrhea. All other syst ems reviewed are negative. Physical Examination: Vital Signs: Temperature is 97.0, pulse 56, breathing at 17, blood pressure is 144/74, saturating 98 %. General: Pleasant elderly male, in no distress. Head and Neck: Pupils are equal, reactive to light. Intact eye movements. No JVD. No cervical lym phadenopathy. Neck is supple. Thyroid is not enlarged. Lungs: Clear to auscultation bilaterally. No rhonchi, wheezing, or crackles. No accessory muscle u se. Heart: Regular rate and rhythm. No extra sounds. Abdomen: Soft, nontender. Bowel sounds positive. No organomegaly. No masses or hernia. No rigidi ty or rebound. Extremities: No edema, clubbing, cyanosis. Intact pulses. Skin: No rashes or nodules. Neuro: Alert, awake, oriented x3. No acute focal deficits appreciated. Investigations: BUN 34, creatinine 3.0. Assessment/recommendations: 1.Non-ST elevation myocardial infarction. Still awaiting the stress test. However, apparently the hospital does not have a air analysis engineering technician for this week. May plan to do a coronary angiogram with limited views and use a very small amount of contrast to get information about the coronary anatomies. I ai l discuss this with Nephrology and evaluate the risk for possible going into advanced kidney disease and then make a decision. 2.Advanced kidney failure. Patient is being managed by Nephrology. /KOLE Voice ID: [id number] Report ID: [id number]
[2022-08-09] MEDS: CLONIDINE HCL 0.3 MG TAB PO SCH ×3 (09:20→20:28)
[2022-08-09] MEDS: lisinopriL 5 MG TAB PO SCH (09:21)
[2022-08-09] MEDS: HYDRALAZINE HCL 25 MG TABLET PO SCH ×3 (09:21→20:28)
[2022-08-09] MEDS: CLOPIDOGREL 75 MG TABLET PO SCH (09:21)
[2022-08-09] MEDS: AMLODIPINE 10 MG TAB PO SCH (09:22)
[2022-08-09] MEDS: ASPIRIN EC 81 MG TAB PO SCH (09:22)
--- NOTE | 2022-08-09 12:35 | PN ---
Date of Progress Note: 08/09/2022 Subjective: The patient still altered mental status. Physical Examination: Vital Signs: Blood pressure 131/85, pulse of 54, afebrile. Chest: Clear to auscultation. Heart: S1, S2. Regular. Abdomen: Soft, nontender. Extremity: No edema. Neuro: The patient is sleepy. No focality. Laboratory Data: Hemoglobin 12.2. Sodium 139, potassium 3.9 bicarb 21, BUN 34, creatinine 3.05, jennifer cium 9.1, phosphorus 3.6, uric acid 8.5, albumin 2.6. Current Medications: The patient on include; 1.Aspirin. 2.Plavix. 3.Amlodipine 10 mg. 4.Atorvastatin. 5.Clonidine 0.3 t.i.d. 6.Lisinopril. 7.Normal saline. Assessment And Plan: 1.Chronic kidney disease, stage 4, solitary kidney and renal mass loss, hypertension nephroscleroses , stable on baseline. We started on ARNIE inhibitor. We will monitor. 2.Hypertension with emergent hypertension, currently blood pressure well-controlled. We will contin ue current regimen. 3. , started on lisinopril. We will follow up response. 4.Secondary hyperparathyroidism. I do not see the need to initiate any calcitriol with current PTH, calcium and phosphorus. 5.Emergent hypertension, possible secondary hypertension. Cortisol within normal limits. We will follow up the rest of the workup. 6.Altered mental status. We will follow up with primary. DULCE MARIA/KOLE Voice ID: [id number] Report ID: [id number]
--- NOTE | 2022-08-09 17:44 | P.PN ---
Subjective Date of Service: 08/09/22 Chief Complaint: Hypertensive urgency Patient not able to give subjective complaint due to aphasia No issues overnight. No agitation. Physical Examination - Vital Signs Temperature: 97.3 F Blood Pressure: 128/77 Pulse: 50 Respirations: 17 Pulse Ox (%): 100 Assessment And Plan - Plan Physical exam GEN: Alert, orientedx2, NAD HEENT: Normal conjunctiva, sclera anicteric CV: Regular rate and rhythm, no edema Pulm: Non-labored respirations on room air ABD: Soft, nontender, nondistended Neuro: slow/broken speech, normal affect; gait instability Problem List Hypertensive urgency CKD 4 prior CVA, suspected underlying dementia NSTEMI afib, new onset Blood pressure improved and patient is currently normotensive. Patient seen by cardio who recommended stress test before justifying cardiac cath given patient's impaired renal function. CKD 4 at baseline, nephrology is following. Cardiology planning cardiac cath with minimal contrast since stress test is not available this week. new onset afib noted 08/05, quickly converted after 1 dose of IV lopressor, continue PO lopressor. Continue heparin drip. Echocardiogram: LV hypertrophy, normal EF. Patient with dementia with possible sundowning. CT without acute findings no focal finding. neuro input appreciated. Continue PT. VTE: heparin drip Code: full
[2022-08-09] MEDS: ENSURE ENLIVE 237 ML CAN PO SCH (20:28)
[2022-08-09] MEDS: ATORVASTATIN 40 MG TAB PO SCH (20:28)
[2022-08-09] MEDS: NA CHLORIDE 0.9% 1,000 ML IV SCH (20:28)
[2022-08-09] MEDS: OLANZapine 2.5 MG TAB PO SCH (20:29)
[2022-08-10 04:08] LABS: Albumin 2.4 g/dL (3.4-5.0); Phosphorus 3.8 mg/dL (2.5-4.9)
[2022-08-10] MEDS: METOPROLOL TAR 25 MG TAB PO SCH ×2 (05:36→17:33)
[2022-08-10] MEDS: CLONIDINE HCL 0.3 MG TAB PO SCH ×3 (08:44→20:46)
[2022-08-10] MEDS: CLOPIDOGREL 75 MG TABLET PO SCH (08:45)
[2022-08-10] MEDS: ASPIRIN EC 81 MG TAB PO SCH (08:45)
[2022-08-10] MEDS: lisinopriL 5 MG TAB PO SCH (08:45)
[2022-08-10] MEDS: AMLODIPINE 10 MG TAB PO SCH (08:45)
[2022-08-10] MEDS: HYDRALAZINE HCL 25 MG TABLET PO SCH ×3 (08:45→20:47)
[2022-08-10] MEDS: ENSURE ENLIVE 237 ML CAN PO SCH ×2 (08:50→20:47)
--- NOTE | 2022-08-10 11:19 | PN ---
Date of Progress Note: 08/10/2022 Subjective: The patient was admitted with hypertensive urgency on chronic kidney disease, stage 4. The patient had altered mental status with questionable of CVA. Physical Examination: Vital Signs: Blood pressure 142/66, pulse of 51, afebrile. The patient still has good urine output. Chest: Clear to auscultation. Heart: S1, S2 regular. Abdomen: Soft, nontender. Extremities: No edema. Neurologic: Alert. No focality. Laboratory Data: Hemoglobin 12.2. Sodium 140, potassium , bicarb 18, BUN 37, creatinine 2 .9, GFR 22, calcium 8.8, phosphorus 3.8, albumin 2.4. Current Medications: The patient on include; 1.Aspirin. 2.Plavix. 3.Heparin drip. 4.Amlodipine 10 mg daily. 5.Atorvastatin 40. 6.Clonidine 0.3 t.i.d. 7.Hydralazine 25 t.i.d. 8.Lisinopril 2.5. 9.Metoprolol 25. 10.IV fluid. Assessment And Plan: 1.Chronic kidney disease, stage 4, secondary to hypertension nephrosclerosis, stable on the baseline , tolerating ARNIE inhibitor. I am going to go ahead and increase lisinopril to 5 mg and we will follo w up. 2.Hypertension with hypertension urgency. Workup for secondary hypertension still pending. Current ly blood pressure on acceptable control. I am going to increase lisinopril to 5 mg and we will follo w up. We will try to taper other blood pressure medication after controlling the blood pressure bett er by increasing the lisinopril. 3.Transient ischemic attack/cerebrovascular accident. Continue to follow up with Neurology. 4.New onset atrial fibrillation. Continue anticoagulation, heparin drip. Time spent examining the patient, [id number], placing order, reviewing data lab and radiology, disc ussing the case with the patient, discussing the case with the engineer steam including nursing, discuss ing the case with hospitalist more than 35 minutes. MIR Voice ID: [id number] Report ID: [id number]
--- NOTE | 2022-08-10 15:54 | P.PN ---
Subjective Date of Service: 08/10/22 Chief Complaint: Hypertensive urgency Patient not able to give subjective complaint due to aphasia He has been afebrile. Physical Examination - Vital Signs Temperature: 97.6 F Blood Pressure: 131/60 Pulse: 74 Respirations: 14 Pulse Ox (%): 94 Assessment And Plan - Plan Physical exam GEN: Alert, orientedx2, NAD HEENT: Normal conjunctiva, sclera anicteric CV: Regular rate and rhythm, no edema Pulm: Non-labored respirations on room air ABD: Soft, nontender, nondistended Neuro: slow/broken speech, normal affect; gait instability Problem List Hypertensive urgency CKD 4 prior CVA, suspected underlying dementia NSTEMI afib, new onset Blood pressure improved and stable. Continue current antihypertensives. Patient seen by cardio who recommended stress test before justifying cardiac cath given patient's impaired renal function. Patient with chronic kidney disease stage IV. Cardiology planning cardiac cath with minimal contrast since stress test is not available this week. Nephrology is following. new onset afib noted 08/05, quickly converted after 1 dose of IV lopressor, continue PO lopressor. Continue heparin drip. Echocardiogram: LV hypertrophy, normal EF. Patient with dementia with possible sundowning. CT without acute findings no focal finding. neuro input appreciated. Continue PT. Diet as tolerated, feed with assistance. VTE: heparin drip Code: full
[2022-08-10] MEDS: HEPARIN/D5W 25,000 UNIT/500 ML BAG IV SCH (17:34)
--- NOTE | 2022-08-10 19:28 | PN ---
Date of Progress Note: 08/10/2022 Subjective: Seen by bedside. No new complaints. Review of Systems: No chest pain, shortness of breath, orthopnea, cough, nausea, vomiting, diarrhea. All other systems reviewed and they were negative. Physical Examination: Vital Signs: Temperature is 98.2, pulse 65, breathing at 14, blood pressure 163/79, saturating 96% o n room air. General: Pleasant elderly male, in no distress. Head and Neck: Pupils are equal, reactive to light. Intact eye movements. No JVD. No cervical lym phadenopathy. Neck is supple. Thyroid is not enlarged. Lungs: Clear to auscultation bilaterally. No rhonchi, wheezing, or crackles. No accessory muscle u se. Heart: Regular rate and rhythm. No extra sounds. Abdomen: Soft, nontender. Bowel sounds positive. No organomegaly. No masses or hernia. No rigidi ty or rebound. Extremities: No edema, clubbing, or cyanosis. Intact pulses. Skin: No rash. Neurologic: Alert, awake, oriented x3. No acute focal deficits appreciated. Investigations: BUN 37, creatinine 2.9. Assessment And Recommendations: 1.Non-ST elevation myocardial infarction. Keep n.p.o. past midnight. We will plan for coronary ang iogram tomorrow morning. Heparin can be discontinued tonight. Continue aspirin. 2.Hypertension. Blood pressure is acceptable. Continue home medications. 3.Dyslipidemia. Continue statin. 4.Advanced kidney disease, but creatinine has been stable. We will plan to use very low dose of contrast tomorrow and hydrate before and after, and if we need to do int ervention, we will do it. SR/MODL Voice ID: [id number] Report ID: [id number]
[2022-08-10] MEDS: OLANZapine 2.5 MG TAB PO SCH (20:46)
[2022-08-10] MEDS: ATORVASTATIN 40 MG TAB PO SCH (20:47)
[2022-08-11] MEDS: ASPIRIN EC 81 MG TAB PO SCH (05:35)
[2022-08-11] MEDS: METOPROLOL TAR 25 MG TAB PO SCH ×2 (05:36→17:48)
[2022-08-11] MEDS ORDERED: HEPA 1000U/500MLS 2,000 UNIT/1,000 ML BAG IV ONE (06:01)
[2022-08-11] MEDS ORDERED: FENTANYL CITR 100 MCG/2 ML ONE (06:01)
[2022-08-11] MEDS ORDERED: LIDOCAINE 1% 20 ML MDV ONE (06:01)
[2022-08-11] MEDS ORDERED: CLOPIDOGREL 75 MG TABLET ONE (06:02)
[2022-08-11] MEDS ORDERED: HEPARIN 5000 UNIT/ML 1 ML VIAL ONE (06:02)
[2022-08-11] MEDS ORDERED: MIDAZOLAM HCL 2 MG/2 ML INJ ONE (06:02)
[2022-08-11] MEDS ORDERED: HEPARIN 10,000 UNIT/10 ML VIAL IV ONE (06:02)
[2022-08-11] MEDS ORDERED: VERAPAMIL HCL 10 MG/4 ML VIAL IV ONE (06:02)
[2022-08-11] MEDS ORDERED: ASPIRIN 325 MG TAB ONE (06:02)
[2022-08-11] MEDS ORDERED: NITROGLYCERIN 100 MCG/ML SYR (for cath lab use only) IV ONE (06:03)
[2022-08-11] MEDS ORDERED: ATROPINE SULF 1 MG/10 ML SYR IV ONE (06:03)
[2022-08-11] MEDS ORDERED: TICAGRELOR 90 MG TABLET PO ONE (06:03)
[2022-08-11] MEDS ORDERED: NITROGLYCERIN/D5W 25 MG/250 ML BTL IV ONE (06:03)
[2022-08-11] MEDS ORDERED: NA CHLORIDE 0.9% 500 ML ONE (07:00)
--- NOTE | 2022-08-11 08:13 | OP ---
Date of Procedure: 08/11/2022 Surgeon: CASSIDY ALBARRAN Procedure Performed: Selective coronary angiogram. Indication: Non-ST elevation myocardial infarction. Access: Right radial artery 6-Chadian closed with TR band. Complications: None. Bleeding: Less than 10 mL. Total contrast used was 18 cc. Description Of Procedure: After risks, benefits, and alternatives were explained, the patient agreed to procedure and signed informed consent. The patient was brought into the cardiac catheterization laboratory, prepped and draped in the usual sterile fashion. Then, I accessed right radial artery us ing pediatric micropuncture kit and placed a 6-Chadian Slender sheath. Then, I took a 5-Chadian [place] 4.0 catheter into the aortic root, engaged the left main and then right coronary artery, and took sta ndard views. Then, catheter was removed, sheath was removed and placed TR band with good hemostasis. Findings: 1.Left main is large with diffuse 20% stenosis. 2.LAD; large vessel, proximal has diffuse 10% to 20%. Then in the mid segment after the diagonal ta keoff, there is a 50% stenosis. Then in the mid to distal also another 50% to 60% stenosis. The marii gonal 1 branch has proximal 60% stenosis. 3.Left circumflex; small, nondominant with luminal irregularities. 4.RCA; large and dominant with multiple tandem lesions ranging between 50% to stenosis in the mid to distal and then the PLB has diffuse 50% stenosis. Conclusion: Moderate coronary artery disease. Recommendation: Recommend medical management. /KOLE Voice ID: [id number] Report ID: [id number]
[2022-08-11] MEDS: CLOPIDOGREL 75 MG TABLET PO SCH (09:00)
[2022-08-11] MEDS: ENSURE ENLIVE 237 ML CAN PO SCH ×2 (09:18→20:11)
[2022-08-11] MEDS: CLONIDINE HCL 0.3 MG TAB PO SCH ×3 (09:25→20:10)
[2022-08-11] MEDS: AMLODIPINE 10 MG TAB PO SCH (09:25)
[2022-08-11] MEDS: lisinopriL 5 MG TAB PO SCH (09:25)
[2022-08-11] MEDS: HYDRALAZINE HCL 25 MG TABLET PO SCH ×3 (09:25→20:11)
[2022-08-11 09:46] LABS: Albumin 2.4 g/dL (3.4-5.0); Phosphorus 3.4 mg/dL (2.5-4.9); Potassium 4.3 mmol/L (3.5-5.1)
--- NOTE | 2022-08-11 12:38 | P.PN ---
Subjective Date of Service: 08/11/22 Chief Complaint: Hypertensive urgency Subjective: No new changes Physical Examination - Vital Signs Temperature: 97 F Blood Pressure: 139/75 Pulse: 72 Respirations: 16 Pulse Ox (%): 100 - Physical Exam General: Other (appears as his stated age) HEENT: Atraumatic, Normocephalic Neck: Supple Respiratory: Other (symmetric chest expansion) Cardiovascular: No rubs, No murmurs Gastrointestinal: Soft and benign Musculoskeletal: No clubbing Integumentary: No warmth Neurological: Normal tone Urinary: Other (No bladder distention) External genitalia: Deferred Rectal: Deferred Assessment And Plan - Plan 1. Chronic kidney disease, stage 4, secondary to hypertension nephrosclerosis. Stable renal fxn. Monitor renal panel. 2. Hypertension. BP meds adjusted. 3. Transient ischemic attack/cerebrovascular accident. Continue to follow up with Neurology. 4. New onset atrial fibrillation. D/t high fall risk, would recommend aspirin rather eliquis or coumadin. 5. Acidosis. Sodium bicarb 1300 mg po bid.
--- NOTE | 2022-08-11 17:26 | P.PN ---
Subjective Date of Service: 08/11/22 Chief Complaint: Hypertensive urgency Status post cardiac cath today. Patient was somnolent after cardiac cath. Physical Examination - Vital Signs Temperature: 97.8 F Blood Pressure: 142/66 Pulse: 61 Respirations: 16 Pulse Ox (%): 98 Assessment And Plan - Plan Physical exam GEN: Alert, somnolent, NAD HEENT: Normal conjunctiva, sclera anicteric CV: Regular rate and rhythm, no edema Pulm: Non-labored respirations, bilateral upper airway transmitted sounds. ABD: Soft, nontender, nondistended Neuro: Left-sided weakness. Left facial weakness. Problem List Hypertensive urgency CKD 4 prior CVA, suspected underlying dementia NSTEMI afib, new onset Blood pressure improved and stable. Continue current antihypertensives. Status post cardiac cath today. Patient noted to have moderate coronary to disease. No stent placed Patient with chronic kidney disease stage IV. Renal function has been stable over the last few days. Nephrology is following. Repeat renal function in a.m. given contrast use during cardiac cath new onset afib noted 08/05, quickly converted after 1 dose of IV lopressor, continue PO lopressor. Off heparin drip. Patient will need anticoagulation for new onset A. fib given history of CVA. High risk of falls. We will avoid full anticoagulation and use aspirin for now. Echocardiogram: LV hypertrophy, normal EF. Patient with dementia with possible sundowning. CT without acute findings no focal finding. Seen by neurology-Dr. Hector Continue PT. Diet as tolerated, feed with assistance. VTE: heparin SQ Code: full
--- NOTE | 2022-08-11 18:05 | PN ---
Date of Progress Note: 08/11/2022 Subjective: Seen by bedside. Doing clinically well. Status post coronary angiogram. He has modera te diffuse coronary artery disease. Review of Systems: No chest pain, shortness of breath, orthopnea, cough. No nausea, vomiting, diarrhea. All other syst ems reviewed and they were negative. Physical Examination: Vital Signs: Reviewed. Head and Neck: Pupils are equal, reactive to light. Intact eye movements. No JVD. No cervical lym phadenopathy. Neck is supple. Thyroid is not enlarged. Lungs: Clear to auscultation bilaterally. No rhonchi, wheezing, or crackles. No accessory muscle u se. Heart: Regular rate and rhythm. No extra sounds. Abdomen: Soft, nontender. Bowel sounds positive. No organomegaly. No masses or hernia. No rigidi ty or rebound. Extremities: No edema, clubbing, or cyanosis. Intact pulses. Skin: No rash. Neurologic: Alert, awake, oriented x3. No acute focal deficits appreciated. Investigations: BUN 42, creatinine 2.96, and hemoglobin 12.2. Assessment And Recommendations: 1.Elevated troponin. This is due to demand ischemia. Coronary angiogram today has moderate diffuse disease. Recommend medical management for that. Increase beta-nahid metoprolol to 50 mg twice a day, titrate as blood pressure tolerates and for a heart rate to be between 50 and 60 and baby aspiri n daily and high dose statin. 2.Dyslipidemia. Continue high dose statin. 3.Hypertension. Blood pressure is controlled. From Cardiology standpoint, the patient can be released, follow up as an outpatient. /KOLE Voice ID: [id number] Report ID: [id number]
[2022-08-11] MEDS: HEPARIN 5000 UNIT/ML 1 ML VIAL SQ SCH (20:10)
[2022-08-11] MEDS: ATORVASTATIN 40 MG TAB PO SCH (20:10)
[2022-08-11] MEDS: OLANZapine 2.5 MG TAB PO SCH (20:10)
[2022-08-12 04:06] LABS: Absolute Lymphocytes (CBC) 0.6 K/uL (0.7-4.9); Hematocrit 34.9 % (39.6-49.0); Lymphocytes % 10.3 % (15.3-44.8); MCV 87.5 fL (80-100); RBC Red Blood Cell Count 3.99 M/uL (4.33-5.43)
[2022-08-12 04:25] LABS: Albumin 2.4 g/dL (3.4-5.0); Potassium 4.2 mmol/L (3.5-5.1)
[2022-08-12] MEDS: METOPROLOL TAR 25 MG TAB PO SCH (05:28)
[2022-08-12 08:02] VITALS: BP 150/72; TEMP 97.8
[2022-08-12] MEDS: ASPIRIN EC 81 MG TAB PO SCH (08:44)
[2022-08-12] MEDS: AMLODIPINE 10 MG TAB PO SCH (08:45)
[2022-08-12] MEDS: ENSURE ENLIVE 237 ML CAN PO SCH (08:45)
[2022-08-12] MEDS: CLONIDINE HCL 0.3 MG TAB PO SCH (08:45)
[2022-08-12] MEDS: HEPARIN 5000 UNIT/ML 1 ML VIAL SQ SCH (08:45)
[2022-08-12] MEDS: lisinopriL 5 MG TAB PO SCH (08:45)
[2022-08-12] MEDS: CLOPIDOGREL 75 MG TABLET PO SCH (08:45)
[2022-08-12] MEDS: HYDRALAZINE HCL 25 MG TABLET PO SCH (08:45)
[2022-08-12] MEDS ORDERED: SODIUM BICARB 325 MG TAB PO SCH (09:00)
[2022-08-12 09:04] VITALS: O2SAT 99
--- NOTE | 2022-08-12 09:10 | P.DS ---
Admission Date: 08/07/22 Discharge Date: 08/12/22 Disposition: DC HOME/HOME HEALTH CARE Discharge Condition: FAIR Reason for Admission: Hypertensive urgency Brief History of Present Illness: 71-year-old male with history of CKD 4, hypertension, previous CVA, gout presents to the emergency department for high blood pressure. Family reported he had been not acting himself over the course of the last 1 week, they also report that he had been told that he had early stages of dementia about a year ago and not always oriented since then. Patient was very hypertensive during his stay in the emergency department with blood pressures in the 180s to 220s over 100s to 110s, his labs. His initial high-sensitivity troponin was 34.1, EKG without ST elevation or STEMI criteria, CT head no hemorrhage or acute intracranial findings. It showed an old infarction in the medial inferior right cerebellum that has developed since the 2019 study. Patient given multiple antihypertensive agents in the emergency department including amlodipine, hydralazine, labetalol. His blood pressure responded with some improvement. Patient admitted for further management. Hospital Course: Diagnosis Hypertensive urgency CKD 4 prior CVA, suspected underlying dementia NSTEMI afib, new onset Patient admitted to the medical floor and treated with multiple antihypertensive including hydralazine, clonidine, amlodipine and lisinopril. His blood pressure readings improved. He was seen in consultation by nephrology who assisted with management. Neurology also saw patient for possible altered mental status. Patient deemed to be at cognitive baseline and diagnosis vascular dementia. Neurology recommended aspirin and Plavix. Patient troponin trended up significantly. He was treated with heparin drip and seen by cardiology who performed cardiac catheterization. Patient noted to have moderate coronary to disease. No stent placed Patient with chronic kidney disease stage IV. Renal function was stable during the hospital stay. Renal function checked postcardiac cath was also stable. Patient had a brief run of A. fib which spontaneously converted after 1 dose of IV lopressor. He was then placed on metoprolol. Given his high risk of falls and life-threatening bleeding, patient placed on aspirin and Plavix and avoiding full A. fib anticoagulation for now. Echocardiogram: LV hypertrophy, normal EF. Patient with dementia with possible sundowning. CT without acute findings no focal finding. PT saw and evaluated patient. He has poor functional status and required maximu m total assist. He tolerated diet without aspiration. Vital Signs/Physical Exam: Temp Pulse Resp BP Pulse Ox 97.8 F 56 16 150/72 H 99 08/12/22 08:00 08/12/22 08:00 08/12/22 08:00 08/12/22 08:00 08/12/22 08:00 General: In no apparent distress, Other (Awake) HEENT: Mucous membr. moist/pink Neck: JVD not distended Respiratory: Clear to auscultation bilaterally, Normal air movement Cardiovascular: Regular rate/rhythm, Normal S1 S2 Gastrointestinal: Normal bowel sounds, Soft and benign Musculoskeletal: No swelling Integumentary: No cyanosis Laboratory Data at Discharge: WBC 6.20 K/uL (4.3-10.9) 08/12/22 03:47 Hgb 11.7 g/dL (13.6-17.9) L 08/12/22 03:47 Hct 34.9 % (39.6-49.0) L 08/12/22 03:47 Plt Count 234 K/uL (152-406) 08/12/22 03:47 PT 10.5 SECONDS (9.5-12.5) 08/04/22 21:29 INR 0.95 08/04/22 21:29 APTT 69.1 SECONDS (24.3-36.9) H 08/11/22 09:18 Sodium 139 mmol/L (136-145) 08/12/22 03:47 Potassium 4.2 mmol/L (3.5-5.1) 08/12/22 03:47 BUN 43 mg/dL (7-18) H 08/12/22 03:47 Creatinine 2.94 mg/dL (0.70-1.30) H 08/12/22 03:47 Glucose 97 mg/dL (74-106) 08/12/22 03:47 Uric Acid 8.5 mg/dL (3.5-7.2) H 08/09/22 03:53 Phosphorus 3.0 mg/dL (2.5-4.9) 08/12/22 03:47 Magnesium 2.1 mg/dL (1.6-2.4) 08/08/22 05:56 Total Bilirubin 0.4 mg/dL (0.2-1.0) 08/04/22 22:00 AST 12 U/L (15-37) L 08/04/22 22:00 ALT 19 U/L (16-61) 08/04/22 22:00 Alkaline Phosphatase 77 U/L (45-117) 08/04/22 22:00 Triglycerides 59 mg/dL (<150) 08/05/22 04:17 Cholesterol 208 mg/dL (<200) H 08/05/22 04:17 HDL Cholesterol 92 mg/dL (40-60) H 08/05/22 04:17 Cholesterol/HDL Ratio 2.26 08/05/22 04:17 Home Medications: Amlodipine [Norvasc*] 10 mg PO DAILY 08/06/22 Aspirin [Aspirin EC] 81 mg PO DAILY #30 tab 08/12/22 Atorvastatin Calcium [Lipitor] 40 mg PO BEDTIME #30 tab 08/12/22 Clopidogrel Bisulfate [Plavix*] 75 mg PO DAILY #30 tab 08/12/22 Ensure Enlive 237 ml PO BID #60 can 08/12/22 Hydralazine [Apresoline*] 25 mg PO TID #90 tab 08/12/22 Metoprolol Tartrate [Lopressor*] 25 mg PO BID 6AM 6PM #60 tab 08/12/22 OLANZapine [Zyprexa*] 2.5 mg PO BEDTIME #15 tab 08/12/22 Sodium Bicarbonate 1,300 mg PO BID #120 tab 08/12/22 cloNIDine HCL [Catapres*] 0.3 mg PO TID #90 tab 08/12/22 lisinopriL [Prinivil*] 5 mg PO DAILY #30 tab 08/12/22 New Medications: Hydralazine [Apresoline*] 25 mg PO TID #90 tab Aspirin [Aspirin EC] 81 mg PO DAILY #30 tab cloNIDine HCL [Catapres*] 0.3 mg PO TID #90 tab Ensure Enlive 237 ml PO BID #60 can Atorvastatin Calcium [Lipitor] 40 mg PO BEDTIME #30 tab Metoprolol Tartrate [Lopressor*] 25 mg PO BID 6AM 6PM #60 tab Clopidogrel Bisulfate [Plavix*] 75 mg PO DAILY #30 tab lisinopriL [Prinivil*] 5 mg PO DAILY #30 tab Sodium Bicarbonate 1,300 mg PO BID #120 tab OLANZapine [Zyprexa*] 2.5 mg PO BEDTIME #15 tab Diet: AHA Activity: Fall precautions Followup: Alroumoh,Manaf A, MD [ACTIVE - CAN ADMIT] - 1-2 Weeks Time spent managing pt's care (in minutes): 33
[2022-08-12 21:15] LABS: Vitamin D 1,25-Dihydroxy Total 21 pg/mL (18-72); Vitamin D,1,25-OH2, D2 <8 pg/mL
== END 2022-08-12 10:25 | disposition home or self-care (01) | DRG 281 ==
LOC: ER 20:47 → ERHOLD 08-05 00:20 → 4TH 08-05 00:58 → OBSVTOIN 08-07 09:33
PROVIDERS: ADMIT Hospitalist; ATTEND Internal Medicine
PROC: 4A023N7 Measurement of Cardiac Sampling and Pressure, Left Heart, Percutaneous Approach (ICD-10-PCS; principal; 2022-08-11)
PROC: B2111ZZ Fluoroscopy of Multiple Coronary Arteries using Low Osmolar Contrast (ICD-10-PCS; 2022-08-11)
DX: I16.0 Hypertensive urgency (principal); I21.4 Non-ST elevation (NSTEMI) myocardial infarction; E87.20 Acidosis, unspecified; F05 Delirium due to known physiological condition; N18.4 Chronic kidney disease, stage 4 (severe); G93.40 Encephalopathy, unspecified; N25.81 Secondary hyperparathyroidism of renal origin; R47.01 Aphasia; I12.9 Hypertensive chronic kidney disease with stage 1 through stage 4 chronic kidney disease, or unspecified chronic kidney disease; D63.1 Anemia in chronic kidney disease; E87.6 Hypokalemia; I48.91 Unspecified atrial fibrillation; E78.5 Hyperlipidemia, unspecified; M10.9 Gout, unspecified; I69.344 Monoplegia of lower limb following cerebral infarction affecting left non-dominant side; F01.50 Vascular dementia, unspecified severity, without behavioral disturbance, psychotic disturbance, mood disturbance, and anxiety; I25.10 Atherosclerotic heart disease of native coronary artery without angina pectoris; F17.210 Nicotine dependence, cigarettes, uncomplicated; Z90.49 Acquired absence of other specified parts of digestive tract; Z79.82 Long term (current) use of aspirin; Z79.02 Long term (current) use of antithrombotics/antiplatelets; Z85.528 Personal history of other malignant neoplasm of kidney; Z79.899 Other long term (current) drug therapy; Z20.822 Contact with and (suspected) exposure to COVID-19
CPT/HCPCS: 36415; 70450; 71045; 74018; 76770; 80048; 80061; 80069; 80076; 82088; 82533; 82652; 83735; 83880; 83970; 84244; 84439; 84443; 84484; 84550; 85025; 85347; 85610; 85730; 87070; 87205; 87811; 93005; 93306; 93454; 96365; 96375; 97110; 97161; 97530; 99285; C1893; G0378; J0360; J0461; J1630; J1644; J1650; J2001; J2250; J3010; J7030; J7040; J7608; Q9966

== ENCOUNTER 2022-08-18 11:22 | Inpatient (IN) | payer OTHER ==
--- OUTSIDE RECORDS SUMMARY | 2022-08-18 11:27 | XMS REPORT | Continuity of Care Document ---
:1950 Author Organization [facility] t Address [address] [place] [address] [address] [place] [address] Care Team Providers Name Role Phone SHARPLESS Primary Care Physician Unavailable Hetal PENALOZA, Rut Attending Clinician Demetrius Larkin MD Attending Clinician DEMETRIUS LARKIN Attending Clinician Unavailable FARZAD JACKSON Attending Clinician Unavailable DEMETRIUS LARKIN Admitting Clinician Unavailable FARZAD JACKSON Admitting Clinician Unavailable Payers Payer Name Policy Type Policy Number Effective Date Expiration Date S [facility] MEDICARE A B [id number] 2017 00:00:00 Problems Condition Condition Condition Status Onset Resolution Last Treating Co mments Source Name Details Category Date Date Treatment Clinician Date Smoking Smoking Disease Recurre [facility] 1/2 pack a 1/2 pack a nce 5-20 Co llege day or day or 00:00: of less less 00 Medicin e Renal cell Renal cell Disease Active Overview : [facility] cancer, cancer, 3 [facility] left [...] Medical 00 Center Essential Essential Disease Active [facility] [place] hypertensi hypertensi 2-08 Co llege on on 00:00: of 00 Medicin e Left renal Left renal Disease Active 2016[facility] College 00:00: of 00 Medicin e 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 00:[facility]: Medi jennifer behavior behavior 00 Center of kidney of kidney and and ureter, ureter, unspecifie unspecifie d d laterality laterality Kidney Kidney Disease Active [facility] disease disease [facility] e CKD CKD Disease Active Overview: [facility] (chronic (chronic Formattin Col lege kidney kidney g of this of disease) disease) note Medici n stage 4, stage 4, might be e GFR 15-29 GFR 15-29 different ml/min ml/min from the original. WITH HX OF HTN AND RCC Encephalop Encephalop Disease Active [facility] Allergies, Adverse Reactions, Alerts Allergy Allergy Status Severity Reaction(s) Onset Inactive Treating Comm ents Source Name Type Date Date Clinician NO KNOWN Allergy Active [facility] sarbjit [facility] Social History Social Habit Start Date Stop Date Quantity Comments Source History of tobacco Cigarette Smoker [facility] use of [facility] Tobacco Comment 2022-07-24 2022-07-24 20+ years [facility] Co [facility]lege 00:00:00 00:00:00 of Medicine Alcohol intake 2017-10-10 2017-10-10 Current drinker NEENA S homer Lusarbjit 00:00:00 00:00:00 of alcohol [facility] (finding) Cigarettes smoked 2017-03-02 2017-03-[address] [facility] current (pack per 00:00:00 00:00:00 Medical Center day) - Reported Tobacco use and 2017-03-02 2017-03-[address] [facility] exposure 00:00:00 00:00:00 [facility] Sex Assigned At [address] [facility] 00:00:00 00:00:00 [facility] Smoking Status Start Date Stop Date Source Smokes tobacco daily 2022-07-24 00:00:00 [facility] Medications Ordered Filled Start Stop Current Ordering Indication Dosage Frequency Signature Comments Components Source Medication Medication Date Date Medication? Clinician (SIG) Name Name amlodipine 2021-07 Yes TAKE 1 [facility] (NORVASC) 2-03 TABLET BY Colle ge 10 MG 00:00: MOUTH of tablet 00 EVERY DAY Medicin e clonidine Yes TAKE 1 [facility] (CATAPRESS) 1-25 TABLET BY Col lege 0.2 MG 00:00: MOUTH of tablet 00 TWICE A Medicin DAY e Tamsulosin Yes .4mg Take 0.4 [facility] HCl 0.4 MG 1-25 mg by [place] CAPS 00:00: mouth of 00 daily. Medicin [...] DAY Medicin e clonidine Yes TAKE 1 [facility] (CATAPRESS) 9-21 TABLET BY Col lege 0.2 MG 00:00: MOUTH of tablet 00 TWICE A Medicin DAY e amlodipine Yes TAKE 1 [facility] (NORVASC) 9-21 TABLET BY Colle ge 10 MG 00:00: MOUTH of tablet 00 EVERY DAY Medicin e clonidine Yes TAKE 1 [facility] (CATAPRESS) 9-21 TABLET BY Col lege 0.2 [...] ION). Tamsulosin 2020- Yes .4mg Take 0.4 [facility] HCl 0-21 mg by [place] (FLOMAX) 00:00: mouth of 0.4 MG CAPS 00 daily. Medici n e Tamsulosin 2020-1 Yes .4mg Take 0.4 [facility] HCl 0-21 mg by [place] (FLOMAX) 00:00: mouth of 0.4 MG CAPS 00 daily. Medici n e Tamsulosin 2020- Yes .4mg Take 0.4 [facility] HCl 0-21 mg by [place] (FLOMAX) 00:00: mouth of 0.4 MG CAPS 00 daily. Medici n e Tamsulosin 2020- Yes .4mg Take 0.4 [facility] HCl 0-21 mg by College (FLOMAX) [...] clopidogrel 2020-0 Yes 75mg Take 1 Tab [facility] (PLAVIX) 75 7-16 by mouth Ernestine ege MG Tablet 00:00: daily. of 00 Medicin e clopidogrel 2020-0 Yes 75mg Take 1 Tab [facility] (PLAVIX) 75 7-16 by mouth Ernestine ege MG Tablet 00:00: daily. of 00 Medicin e clopidogrel 2020-0 Yes 75mg Take 1 Tab [facility] (PLAVIX) 75 7-16 by mouth Ernestine ege MG Tablet 00:00: daily. of 00 Medicin e clopidogrel 2020-0 Yes 75mg Take 1 Tab [facility] (PLAVIX) 75 7-16 by mouth Ernestine ege [...] clopidogrel 2020-0 Yes 75mg Take 1 Tab [facility] (PLAVIX) 75 7-16 by mouth Ernestine ege MG Tablet 00:00: daily. of 00 Medicin e atorvastati 2020-0 Yes 40mg Take 1 Tab [facility] n (LIPITOR) 7-16 by mouth Ernestine ege 40 MG 00:00: daily. By of tablet 00 bedtime Medicin e clopidogrel 2020-0 Yes 75mg Take 1 Tab [facility] (PLAVIX) 75 7-16 by mouth Ernestine ege MG Tablet 00:00: daily. of 00 Medicin e clonidine 2020- No .2mg Take 1 Tab [facility] (CATAPRESS) 01-28 by mouth Col lege 0.2 MG 00:00: 00:00 two times of tablet 00 :00 daily. Medicin e amlodipine 2020- No 10mg Take 1 Tab [facility] (NORVASC) 01-28 by mouth Colle ge 10 MG 00:00: 00:00 daily. of tablet 00 :00 Medicin e cloNIDine 2017-0 Yes .3mg Q.[id number] Take 0.[address] [facility] [address] HCl 4-01 [id number] [facility] by [facility] (CATAPRES) 03:27: 3D mouth 3 Medi jennifer 0.3 MG 05 (three) Center tablet times daily. furosemide 2017-0 Yes 40mg Take [address] (LASIX) 40 4-01 by mouth [facility] MG tablet 03:27: every Medical 05 other day. [place] amLODIPine 2017-0 Yes 10mg QD Take [address] (NORVASC) 4-01 by mouth [facility] 10 MG 03:27: daily. Medical tablet 05 [place] cloNIDine 2017-0 Yes .3mg Q.[id number] Take 0.[address] HCl 4-01 [id number] mg by [facility] (CATAPRES) 03:27: 3D mouth 3 Medi jennifer 0.3 MG 05 (three) Center tablet times daily. furosemide 2017-0 Yes 40mg Take [address] (LASIX) 40 4-01 by mouth [facility] MG tablet 03:27: every Medical 05 other day. [place] amLODIPine 2017-0 Yes 10mg QD Take [address] (NORVASC) 4-01 by mouth [facility] 10 MG 03:27: daily. Medical tablet 05 [place] cloNIDine 2018-0 Yes .3mg Q.[id number] Take 0.[address] HCl 4-01 [id number] [facility] by [facility] (CATAPRES) 03:27: 3D mouth 3 Medi jennifer 0.3 MG 05 (three) Center tablet times daily. furosemide 2017-0 Yes 40mg Take [address] (LASIX) 40 4-01 by mouth [facility] MG tablet 03:27: every Medical 05 other day. [place] amLODIPine 2017-0 Yes 10mg QD Take [address] (NORVASC) 4-01 by mouth [facility] 10 MG 03:27: daily. Medical tablet 05 [place] cloNIDine 2017-0 Yes .3mg Q.[id number] Take 0.[address] HCl 4- [id number] mg by [facility] (CATAPRES) 03:27: 3D mouth 3 Medi jennifer 0.3 MG 05 (three) Center tablet times daily. furosemide 2017-0 Yes 40mg Take [address] (LASIX) 40 4-01 by mouth [facility] MG tablet 03:27: every Medical 05 other day. [place] amLODIPine 2017-0 Yes 10mg QD Take [address] (NORVASC) 4-01 by mouth [facility] 10 MG 03:27: daily. Medical tablet 05 [place] cloNIDine 2017-0 Yes .3mg Q.[id number] Take 0.[address] HCl 4- [id number] mg by [facility] (CATAPRES) 03:27: 3D mouth 3 Medi jennifer 0.3 MG 05 (three) Center tablet times daily. furosemide Yes 40mg Take [address] (LASIX) 40 4-01 by mouth [facility] MG tablet 03:27: every Medical 05 other day. [place] amLODIPine Yes 10mg QD Take [address] (NORVASC) 4-01 by mouth [facility] 10 MG 03:27: daily. Medical tablet 05 [place] Vital Signs Vital Name Observation Time Observation Value Comments Source Systolic blood 2022-07-24 21:40:00 140 mm[Hg] [facility] pressure Medicine Diastolic blood 2022-07-24 21:40:00 80 mm[Hg] [facility] Medicine Heart rate 2022-07-24 21:40:00 63 /min [facility] Respiratory rate 2022-07-24 20:57:00 16 /min [facility] Body height 2022-07-24 20:57:00 160 cm [facility] Body weight 2022-07-24 20:57:00 55.974 kg [facility] BMI 2022-07-24 20:57:00 21.86 kg/m2 [facility] Body weight 2021-08-08 19:36:00 61.236 kg [facility] BMI 2021-08-08 19:36:00 23.91 kg/m2 [facility] C [facility]lege of Medicine Systolic blood 2021-08-08 19:36:00 130 mm[Hg] [facility] pressure Medicine Diastolic blood 2021-08-08 19:36:00 70 mm[Hg] [facility] pressure Medicine Heart rate 2021-08-08 19:36:00 82 /min [facility] C [facility]lege of Medicine Respiratory rate 2021-08-08 19:36:00 16 /min [facility] Body height 2021-08-08 19:36:00 160 cm [facility] ollege of Medicine Systolic blood 2021-04-05 18:18:00 130 mm[Hg] [facility] pressure Medicine Diastolic blood 2021-04-05 18:18:00 80 mm[Hg] [facility] Medicine Heart rate 2021-04-05 18:18:00 75 /min [facility] of Medicine Respiratory rate 2021-04-05 18:18:00 16 /min [facility] Body height 2021-04-05 18:18:00 160 cm [facility] C [facility] of Medicine Body weight 2021-04-05 18:18:00 62.869 kg [facility] ollege of Medicine BMI 2021-04-05 18:18:00 24.55 kg/m2 [facility] ollege of Medicine Systolic blood 2020-10-07 19:41:00 157 mm[Hg] [facility] Medicine Diastolic blood 2020-10-07 19:41:00 82 mm[Hg] [facility] Medicine Heart rate 2020-10-07 19:41:00 51 /min [facility] ollege of Medicine Respiratory rate 2020-10-07 19:41:00 17 /min [facility] Body height 2020-05-05 14:26:00 160 cm [facility] C [facility] of Medicine Body weight 2020-05-05 14:26:00 68.04 kg [facility] C [facility] of Medicine BMI 2020-05-05 14:26:00 26.57 kg/m2 [facility] ollege of Medicine Systolic blood 2020-05-05 14:26:00 159 mm[Hg] [facility] Diastolic blood 2020-05-05 14:26:00 78 mm[Hg] [facility] Heart rate 2020-05-05 14:26:00 59 /min [facility] Body temperature 2020-05-05 14:26:00 36.61 Viky [facility] Respiratory rate 2020-05-05 14:26:00 18 /min [facility] Systolic blood 2020-04-05 18:17:00 144 mm[Hg] [facility] Diastolic blood 2020-04-05 18:17:00 82 mm[Hg] [facility] Heart rate 2020-04-05 18:17:00 56 /min [facility] Body temperature 2020-04-05 18:17:00 36.44 Viky [facility] Respiratory rate 2020-04-05 18:17:00 16 /min [facility] Body height 2020-04-05 18:17:00 162.6 cm [facility] Body weight 2020-04-05 18:17:00 64.411 kg [facility] BMI 2020-04-05 18:17:00 24.37 kg/m2 [facility] Procedures Procedure Date / Time Performed Performing Clinician [facility] e POCT URINALYSIS 2020-10-07 00:00:00 Demetrius Larkin [facility] llege of [facility] Medicine POCT URINALYSIS 2020-05-05 00:00:00 Demetrius Larkin [facility] llege of [facility]STICK Medicine Plan of Care Planned Activity Planned Date Details Comments Source Future Scheduled 2022-07-24 CBC W/O DIFF W PLT Ordered: [facility] Test 15:28:22 [code = 6690-2] 07/24/2022 of Medicine Future Scheduled 2022-07-24 COMPREHENSIVE Ordered: [facility] Col [facility]ge Test 15:28:22 METABOLIC PANEL 07/24/2022 of Medicine [code = 84779-1] Future Scheduled 2022-07-24 PTH INTACT [code = Ordered: [facility] [place] Test 15:28:22 2731-8] 07/24/2022 of Medicine Future Scheduled 2022-07-24 PHOSPHORUS [code = Ordered: [facility] [place] Test 15:28:22 2777-1] 07/24/2022 of Medicine Future Scheduled 2022-07-24 VITAMIN D 25 HYDROXY Ordered: [facility] [place] [facility] Test 15:28:22 [code = 1989-3] 07/24/2022 of Medicine Future Scheduled 2022-07-24 Screening for [facility] Col [facility]ge Test 14:59:21 malignant neoplasm of Medici ne of colon (procedure) [code = 964362550] Future Scheduled 2022-07-24 Pneumococcal 65+ (1 [facility] Test 14:59:21 - PCV) [code = of Medicine Pneumococcal 65+ (1 - PCV)] Future Scheduled 2022-07-24 TETANUS SHOT (ADULT) [facility] Test 14:59:21 [code = TETANUS SHOT of Medi cine (ADULT)] Future Scheduled 2022-07-24 ZOSTER VACCINE (1 of [facility] [place] [facility] Test 14:59:21 2) [code = ZOSTER of Medicin e VACCINE (1 of 2)] Future Scheduled 2022-07-24 Medicare Awv [facility] Test 14:59:21 (Initial) [code = of Medicin e Medicare Awv (Initial)] Future Scheduled 2022-07-24 Abdominal aortic [facility] Test 14:59:21 aneurysm screening of Medici ne (procedure) [code = 812660548] Future Scheduled 2022-07-24 Fall Screen [code = [facility] Test 14:59:21 Fall Screen] of Medicine Future Scheduled 2022-07-24 COVID-19 Vaccine (3 [facility] Test 14:59:21 - Booster for Pfizer of Medi cine series) [code = COVID-19 Vaccine (3 - Booster for Pfizer series)] Future Scheduled 2022-07-24 FLU VACCINE > 6 [facility] C [facility]lege Test 14:59:21 MONTHS [code = [...] Medical Center INFLUENZA VACCINE (#1)] Future Scheduled 2022-03-[address] [facility] Test 00:00:00 (#1) [code = Medical Center INFLUENZA VACCINE (#1)] Future Scheduled 2022-03-[address] [facility] Test 00:00:00 (#1) [code = Medical Center INFLUENZA VACCINE (#1)] Future Scheduled 2022-03-[address] [facility] Test 00:00:00 (#1) [code = Medical Center INFLUENZA VACCINE (#1)] Future Scheduled 2022-03-[address] [facility] Test 00:00:00 (#1) [code = Medical Center INFLUENZA VACCINE (#1)] Future Scheduled 2021-08-08 CBC W/O DIFF W PLT Ordered: [facility] Test 14:06:14 [code = 6690-2] 08/08/2021 of Medicine Future Scheduled 2021-08-08 COMPREHENSIVE Ordered: [facility] Test 14:06:14 METABOLIC PANEL 08/08/2021 of Medicine [code = 75119-7] Future Scheduled 2021-08-08 FERRITIN [code = Ordered: [facility] Test 14:06:14 90536-3] 08/08/2021 of Medicine Future Scheduled 2021-08-08 IRON+TIBC+%SAT [code Ordered: [facility] Test 14:06:14 = NOCPT] 08/08/2021 of Medicine Future Scheduled 2021-08-08 PHOSPHORUS [code = Ordered: [facility] Test 14:06:14 2777-1] 08/08/2021 of Medicine Future Scheduled 2021-08-08 PTH INTACT [code = Ordered: [facility] Test 14:06:14 2731-8] 08/08/2021 of Medicine Future Scheduled 2021-08-08 VITAMIN D 25 HYDROXY Ordered: [facility] Test 14:06:14 [code = 1989-3] 08/08/2021 of Medicine Future Scheduled 2021-08-08 MICROALBUMIN/CREAT Ordered: [facility] Test 14:06:14 URINE RATIO [code = 08/08/2021 of Medic ine 9318-7] Future Scheduled 2021-08-08 Screening for [facility] Col [facility]ge Test 13:35:31 malignant neoplasm of Medici ne of colon (procedure) [code = 999753457] Future Scheduled 2021-08-08 TETANUS SHOT (ADULT) [facility] Test 13:35:31 [code = TETANUS SHOT of Medi cine (ADULT)] Future Scheduled 2021-08-08 ZOSTER VACCINE (1 of [facility] Test 13:35:31 2) [code = ZOSTER of Medicin e VACCINE (1 of 2)] Future Scheduled 2021-08-08 MEDICARE AWV [facility] Test 13:35:31 (Initial) [code = of Medicin e MEDICARE AWV (Initial)] Future Scheduled 2021-08-08 Abdominal aortic [facility] Test 13:35:31 aneurysm screening of Medici ne (procedure) [code = 595410202] Future Scheduled 2021-08-08 FALL SCREEN [code = [facility] Test 13:35:31 FALL SCREEN] of Medicine Future Scheduled 2021-08-08 Pneumococcal 65+ (1 [facility] Test 13:35:31 of 1 - PPSV23) [code of Medi cine = Pneumococcal 65+ (1 of 1 - PPSV23)] Future Scheduled 2021-08-08 FLU VACCINE > 6 [facility] C [facility] Test 13:35:31 MONTHS [code = FLU of Medici ne VACCINE > 6 MONTHS] Future Scheduled 2021-08-08 COVID-19 Vaccine (3 [facility] or [facility] Test 13:35:31 - Booster for [...] METABOLIC PANEL 05/09/2021 of Medicine [code = 63348-6] (Approximate), Expires: 06/09/2021 Future Scheduled 2021-05-09 CBC W/AUTO DIFF WITH Expected: [facility] Test 00:00:00 PLATELETS [code = 05/09/2021 of Medicin e 12340-2] (Approximate), Expires: 06/09/2021 Future Scheduled 2021-04-05 CBC W/AUTO DIFF WITH Ordered: [facility] [employer] Test 13:38:59 PLATELETS [code = 04/05/2021 of Medicin e 48538-8] Future Scheduled 2021-04-05 COMPREHENSIVE Ordered: [facility] Test 13:38:59 METABOLIC PANEL 04/05/2021 of Medicine [code = 88737-7] Future Scheduled 2021-04-05 FERRITIN [code = Ordered: [facility] [place] Test 13:38:59 32559-2] 04/05/2021 of Medicine Future Scheduled 2021-04-05 IRON+TIBC+%SAT [code Ordered: [facility] Test 13:38:59 = NOCPT] 04/05/2021 of Medicine Future Scheduled 2021-04-05 PHOSPHORUS [code = Ordered: [facility] Test 13:38:59 2777-1] 04/05/2021 of Medicine Future Scheduled 2021-04-05 PTH INTACT [code = Ordered: [facility] Test 13:38:59 2731-8] 04/05/2021 of Medicine Future Scheduled 2021-04-05 RANDOM URINE Ordered: [facility] Test 13:38:59 PROTEIN/CREATININE 04/05/2021 of Medici ne [code = 2890-2] Future Scheduled 2021-04-05 MICROALBUMIN/CREAT Ordered: [facility] Test 13:38:59 URINE RATIO [code = 04/05/2021 of Medic ine 9318-7] Future Scheduled 2021-04-05 VITAMIN D 25 HYDROXY Ordered: [facility] Test 13:38:59 [code = 1989-3] 04/05/2021 of Medicine Future Scheduled 2021-04-05 ANTI NEUTROPHIL Ordered: [facility] Test 13:38:59 CYTOPLASMIC ANTIBODY 04/05/2021 of Medi cine [code = 05357] Future Scheduled 2021-04-05 CBC W/AUTO DIFF WITH Ordered: [facility] Test 13:38:59 PLATELETS [code = 04/05/2021 of Medicin e 16100-8] Future Scheduled 2021-04-05 COMPREHENSIVE Ordered: [facility] Test 13:38:59 METABOLIC PANEL 04/05/2021 of Medicine [code = 68968-0] Future Scheduled 2021-04-05 FERRITIN [code = Ordered: [facility] Test 13:38:59 73372-5] 04/05/2021 of Medicine Future Scheduled 2021-04-05 IRON+TIBC+%SAT [code Ordered: [facility] Test 13:38:59 = NOCPT] 04/05/2021 of Medicine Future Scheduled 2021-04-05 PHOSPHORUS [code = Ordered: [facility] Test 13:38:59 2777-1] 04/05/2021 of Medicine Future Scheduled 2021-04-05 PTH INTACT [code = Ordered: [facility] Test 13:38:59 2731-8] 04/05/2021 of Medicine Future Scheduled 2021-04-05 RANDOM URINE Ordered: [facility] Test 13:38:59 PROTEIN/CREATININE 04/05/2021 of Medici ne [code = 2890-2] Future Scheduled 2021-04-05 MICROALBUMIN/CREAT Ordered: [facility] Test 13:38:59 URINE RATIO [code = 04/05/2021 of Medic ine 9318-7] Future Scheduled 2021-04-05 VITAMIN D 25 HYDROXY Ordered: [facility] [employer] Test 13:38:59 [code = 1989-3] 04/05/2021 of Medicine Future Scheduled 2021-04-05 ANTI NEUTROPHIL Ordered: [facility] Test 13:38:59 CYTOPLASMIC ANTIBODY 04/05/2021 of Medi cine [code = 07632] Future Scheduled 2021-04-05 Screening for [facility] Test 13:19:08 malignant neoplasm of Medici ne of colon (procedure) [code = 461136327] Future Scheduled 2021-04-05 TETANUS SHOT (ADULT) [facility] [employer] [facility] 13:19:08 [code = TETANUS SHOT of Medi cine (ADULT)] Future Scheduled 2021-04-[address] UP PLAN [facility] Test 13:19:08 [code = BMI FOLLOW of Medici ne UP PLAN] Future Scheduled 2021-04-05 ZOSTER VACCINE (1 of [facility] [place] [facility] Test 13:19:08 2) [code = ZOSTER of Medicin e VACCINE (1 of 2)] Future Scheduled 2021-04-05 MEDICARE AWV [facility] Test 13:19:08 (Initial) [code = of Medicin e MEDICARE AWV (Initial)] Future Scheduled 2021-04-05 Abdominal aortic [facility] Test 13:19:08 aneurysm screening of Medici ne (procedure) [code = 801548898] Future Scheduled 2021-04-05 FALL SCREEN [code = [facility] [place] Test 13:19:08 FALL SCREEN] of Medicine Future Scheduled 2021-04-05 PNEUMOVAX >=65 [facility] Test 13:19:08 (PPSV23) [code = of Medicine PNEUMOVAX >=65 (PPSV23)] Future Scheduled 2021-04-05 FLU VACCINE > 6 [facility] Test 13:19:08 MONTHS [code = FLU of Medici ne VACCINE > 6 MONTHS] Future Scheduled 2021-04-05 Screening for [facility] Test 13:19:08 malignant neoplasm of Medici ne of colon (procedure) [code = 975326788] Future Scheduled 2021-04-05 TETANUS SHOT (ADULT) [facility] Test 13:19:08 [code = TETANUS SHOT of Medi cine (ADULT)] Future Scheduled 2021-04-[address] UP PLAN [facility] Test 13:19:08 [code = BMI FOLLOW of Medici ne UP PLAN] Future Scheduled 2021-04-05 ZOSTER VACCINE (1 of [facility] Test 13:19:08 2) [code = ZOSTER of Medicin e VACCINE (1 of 2)] Future Scheduled 2021-04-05 MEDICARE AWV [facility] Test 13:19:08 (Initial) [code = of Medicin e MEDICARE AWV (Initial)] Future Scheduled 2021-04-05 Abdominal aortic [facility] Test 13:19:08 aneurysm screening of Medici ne (procedure) [code = 528309039] Future Scheduled 2021-04-05 FALL SCREEN [code = [facility] [place] Test 13:19:08 FALL SCREEN] of Medicine Future Scheduled 2021-04-05 PNEUMOVAX >=65 [facility] Test 13:19:08 (PPSV23) [code = of Medicine PNEUMOVAX >=65 (PPSV23)] Future Scheduled 2021-04-05 FLU VACCINE > 6 [facility] C [facility] Test 13:19:08 MONTHS [code = [...] Diagnostic Test 2020-05-19 PSA TOTAL(URO DEPT) Expected: [facility] Pending 00:00:00 [code = 2857-1] 05/19/2020 [...] C enter of colon (procedure) [code = 629741999] Future Scheduled [address] [facility] Test 00:00:00 malignant neoplasm Medical C enter of colon (procedure) [code = 320119801] Future Scheduled [address] [facility] [facility] Test 00:00:00 malignant neoplasm Medical C enter of colon (procedure) [code = 296639799] Future Scheduled [address] [facility] [facility] Test 00:00:00 malignant neoplasm Medical C enter of colon (procedure) [code = 266335676] Future Scheduled 1950 Sigmoidoscopy [code [facility] Test 00:00:00 = Sigmoidoscopy] Medical [place] Future Scheduled [address] [facility] Test 00:00:00 (combo) [code = CT Medical C enter Colonography (combo)] Future Scheduled [address] [facility] [facility] Test 00:00:00 malignant neoplasm Medical C enter of colon (procedure) [code = 360018806] Future Scheduled [address] [facility] Test 00:00:00 malignant neoplasm Medical C enter of colon (procedure) [code = 601809801] Future Scheduled [address] [facility] [facility] Test 00:00:00 malignant neoplasm Medical C enter of colon (procedure) [code = 999289130] Future Scheduled [address] [facility] Test 00:00:00 malignant neoplasm Medical C enter of colon (procedure) [code = 947429664] Future Scheduled 1950 Sigmoidoscopy [code [facility] Test 00:00:00 = Sigmoidoscopy] Medical [place] [address] Future Scheduled [address] [facility] Test 00:00:00 (combo) [code = CT Medical C enter Colonography (combo)] Future Scheduled [address] [facility] 00:00:00 malignant neoplasm Medical C enter of colon (procedure) [code = 093482829] Future Scheduled [address] [facility] 00:00:00 malignant neoplasm Medical C enter of colon (procedure) [code = 323359706] Future Scheduled [address] [facility] Test 00:00:00 malignant neoplasm Medical C enter of colon (procedure) [code = 350079909] Future Scheduled [address] [facility] Test 00:00:00 malignant neoplasm Medical C enter of colon (procedure) [code = 572459680] Future Scheduled 1950 Sigmoidoscopy [code [facility] Test 00:00:00 = Sigmoidoscopy] Medical [place] [facility] Future Scheduled [address] [facility] 00:00:00 (combo) [code = CT Medical C enter Colonography (combo)] Future Scheduled [address] [facility] Test 00:00:00 malignant neoplasm Medical C enter of colon (procedure) [code = 483556159] Future Scheduled [address] [facility] Test 00:00:00 malignant neoplasm Medical C enter of colon (procedure) [code = 990477527] Future Scheduled [address] [facility] Test 00:00:00 malignant neoplasm Medical C enter of colon (procedure) [code = 424397398] Future Scheduled [address] [facility] Test 00:00:00 malignant neoplasm Medical C enter of colon (procedure) [code = 931494739] Future Scheduled 1950 Sigmoidoscopy [code [facility] Test 00:00:00 = Sigmoidoscopy] [facility] [place] [facility] Future Scheduled [address] [facility] 00:00:00 (combo) [code = CT Medical C enter Colonography (combo)] Future Scheduled [address] [facility] Test 00:00:00 malignant neoplasm Medical C enter of colon (procedure) [code = 922171103] Future Scheduled [address] [facility] Test 00:00:00 malignant neoplasm Medical C enter of colon (procedure) [code = 741313877] Future Scheduled [address] [facility] Test 00:00:00 malignant neoplasm Medical C enter of colon (procedure) [code = 925413353] Future Scheduled [address] [facility] Test 00:00:00 malignant neoplasm Medical C enter of colon (procedure) [code = 404765702] Future Scheduled 1950 Sigmoidoscopy [code [facility] Test 00:00:00 = Sigmoidoscopy] Medical [place] Future Scheduled COLON CANCER [facility] eg Test SCREENING: of Medicine COLONOSCOPY [code = COLON CANCER SCREENING: COLONOSCOPY] Future Scheduled TETANUS SHOT (ADULT) [facility] Test [code = TETANUS SHOT of Medi cine (ADULT)] Future Scheduled BMI FOLLOW UP PLAN [facility] Test [code = BMI FOLLOW of Medici ne UP PLAN] Future Scheduled ZOSTER VACCINE (1 of [employer] Test 2) [code = ZOSTER of Medicin e VACCINE (1 of 2)] Future Scheduled MEDICARE AWV [facility] (Initial) [code = of Medicin e MEDICARE AWV (Initial)] Future Scheduled AAA Screen [code = [employer] [facility] AAA Screen] of Medicine Future Scheduled FALL SCREEN [code = [employer] [facility] FALL SCREEN] of Medicine Future Scheduled PNEUMOVAX >=65 [facility] Test (PPSV23) [code = of Medicine PNEUMOVAX >=65 (PPSV23)] Future Scheduled FLU VACCINE > 6 [facility] C [facility]lege Test MONTHS [code = FLU of Medici ne VACCINE > 6 MONTHS] Future Scheduled URINALYSIS W REFLEX Ordered: [facility] Test MICRO [code = NOCPT] 10/07/2020 of Medi cine Future Scheduled Screening for [facility] Col [facility]ge Test malignant neoplasm of Medici ne of colon (procedure) [code = 057439837] Future Scheduled TETANUS SHOT (ADULT) [employer] Test [code = TETANUS SHOT of Medi cine (ADULT)] Future Scheduled BMI FOLLOW UP PLAN [employer] Test [code = BMI FOLLOW of Medici ne UP PLAN] Future Scheduled ZOSTER VACCINE (1 of [employer] Test 2) [code = ZOSTER of Medicin e VACCINE (1 of 2)] Future Scheduled MEDICARE AWV [facility] Test (Initial) [code = of Medicin e MEDICARE AWV (Initial)] Future Scheduled Abdominal aortic [facility] Test aneurysm screening of Medici ne (procedure) [code = 199114916] Future Scheduled FALL SCREEN [code = [employer] [facility] FALL SCREEN] of Medicine Future Scheduled PNEUMOVAX >=65 [facility] Test (PPSV23) [code = of Medicine PNEUMOVAX >=65 (PPSV23)] Future Scheduled FLU VACCINE > 6 [facility] C [facility]lege Test MONTHS [code = FLU of Medici ne VACCINE > 6 MONTHS] Future Scheduled RANDOM URINE Ordered: [facility] [employer] Test PROTEIN/CREATININE 04/05/2020 of Medici ne [code = 2890-2] Future Scheduled URINALYSIS AUTO Ordered: [facility] Test W/SCOPE [code = 04/05/2020 of Medicine 28586-0] Future Scheduled COLON CANCER [facility] [employer] Test SCREENING: of Medicine COLONOSCOPY [code = COLON CANCER SCREENING: COLONOSCOPY] Future Scheduled TETANUS SHOT (ADULT) [employer] Test [code = TETANUS SHOT of Medi cine (ADULT)] Future Scheduled ZOSTER VACCINE (1 of [employer] Test 2) [code = ZOSTER of Medicin e VACCINE (1 of 2)] Future Scheduled MEDICARE AWV [facility] [employer] Test (Initial) [code = of Medicin e MEDICARE AWV (Initial)] Future Scheduled AAA Screen [code = [facility] Test AAA Screen] of Medicine Future Scheduled FALL SCREEN [code = [facility] [place] Test FALL SCREEN] of Medicine Future Scheduled PNEUMOVAX >=65 [facility] Test (PPSV23) [code = of Medicine PNEUMOVAX >=65 (PPSV23)] Future Scheduled FLU VACCINE > 6 [facility] C [facility]lege Test MONTHS [code = FLU of Medici ne VACCINE > 6 MONTHS] Future Scheduled MRI ABDOMEN WO 1 Occurrences [facility] Test CONTRAST [code = starting of Medicine 45320-8] 05/05/2020 until 11/28/2020 Future Scheduled XR CHEST PA AND 1 Occurrences [facility] Test LATERAL [code = starting of Medicine 69167-0] 05/05/2020 until 11/28/2020 Encounters Start End Encounter Admission Attending Care Care Encounter Source Date/Time Date/Time Type Type Clinicians Facility Department ID 2022-07-24 2022-07-24 Office Hetal [facility] [id number] [facility] 16:20:00 16:40:00 Visit [facility] AMBULATOR 350.1.13.21 College Y 0.2.7.2.686 of [id number] [facility] 335 e 2021-08-08 2021-08-08 Office Hetal [facility] [id number] [facility] 13:40:00 14:52:39 Visit [facility] AMBULATOR 350.1.13.21 College Y 0.2.7.2.686 of [id number] [facility] refugio 335 e 2021-04-05 2021-04-05 Office Hetal, [facility] 1.2.840.114 [id number] [facility] 13:14:21 13:46:[facility] 350.1.13.21 College Y 0.2.7.2.686 of [id number] [facility]ug[facility] 335 e 2020-10-07 2020-10-07 Office LILLIANA Larkin 1.2.840.114 [id number] 05 [facility] 14:37:10 16:35:39 Visit Demetrius Kohler AMBULATOR 350.1.13.21 College Y 0.2.7.2.686 of [id number] [facility] 300 e 2020-05-25 2020-05-25 Outpatient LARKIN, [facility] [id number] [facility] 00:00:00 00:00:00 OGDEN 2020-05-25 2020-05-25 Outpatient LARKIN, [facility] [id number] SLE 00:00:00 00:00:00 OGDEN 2020-05-05 2020-05-05 Office Larkin LILLIANA 1.2.840.114 [id number] [facility] 08:40:26 09:26:13 Visit Demetrius Kohler AMBULATOR 350.1.13.21 College Y 0.2.7.2.686 of [id number] [facility] 300 e 2020-04-05 2020-04-05 Office NIDHI Fong 1.2.840.114 [id number] [facility] 12:38:08 16:49:05 Visit [facility] AMBULATOR 350.1.13.21 College Y 0.2.7.2.686 of [id number] [facility] 335 e 2020-03-02 2020-03-02 Outpatient [facility] [id number] [facility] 00:00:00 00:00:00 Results Test Description Test Time Test Comments Results Result Comments Source POCT URINALYSIS DIPSTICK 2020-10-07 00:00:00 Test Item Value Reference Range Interpretation Comme nts COLOR UA (test code = 5778-6) Yellow YELLOW/STRAW CLARITY UA (test code = 13943-9) Clear CLEAR GLUCOSE UA (test code = 5792-7) Negative NEGATIVE BILIRUBIN UA (test code = 5770-3) Negative NEGATIVE KETONES UA (test code = 93809-5) Negative NEGATIVE SPECIFIC GRAVITY UA (test code [...] NEGATIVE REDUCING SUBSTANCES URINE (test code = 69229-7) [facility] [id number] 16:51:00 Unlisted Reason for Exam - Click Yes and Enter Reason Below->YesUnlisted Reason for Exam->[facility] 1950 Sex: MFINAL [...] MDReport Verified Date/Time: 05/25/2020 16:51:08 Reading Location: [address] Reading Room RAD, CHEST, 2 [id number] 10:10:00Reason for Exam:- >[facility] 1950 Sex: MFINAL [...] MDReport Verified Date/Time: 05/25/2020 10:10:41 Reading Location: [facility] Reading Room [address] [place] [address] POCT URINALYSIS DIPSTICK 2020-05-05 00:00:00 Test Item Value Reference Range Interpretation Comments COLOR UA (test code = 5778-6) [place] YELLOW/STRAW CLARITY UA (test code = 43907-1) Clear CLEAR GLUCOSE UA (test code = 5792-7) Negative NEGATIVE BILIRUBIN UA (test code = 5770-3) Negative NEGATIVE KETONES UA (test code = 14050-7) Negative NEGATIVE SPECIFIC GRAVITY UA (test code [...] NEGATIVE REDUCING SUBSTANCES URINE (test code = 46887-3) [facility] [id number] 09:38:00Surgical Pathology Report Case: [id number] Authorizing Provider: Demetrius Larkin MD Collected: 10/09/2017 1652 Ordering Location: [facility] PERIOPERATIVE Received: 10/10/2017 0810 SERVICES [...] SYNOPTIC REPORT Signing Pathologist Direct Phone Line: [phone] signed by Joyce Sauceda MD on 10/16/2017 at 9:38 AMThe relative revisions of traditionalFurman nuclear grading in predicting 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 The assessment of nucleolar prominence as a single parameter is noted to correlate better with outcome than other nuclear parameters (size, shape) to assign a Dami grade. ("Urologic Surgical Pathology," Leidy and Cristian, third edition, 2014). Nuclear grade assigned in Synoptic portion of this report (tw, can include).This patient's previous biopsy from [facility], from 03/02/2017 ([id number] 0950) shows a core biopsy with features similar to those noted in this larger tumor. 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, as papillary elements arenot prominent in these core biopsies (distinct from [...] eosinophilic at 400x magnification, visible but not prominentat 100x magnification Tumor Size: Greatest dimension in Centimeters (cm): 5.5 Centimeters (cm) Additional Dimension in Centimeters (cm): 5 Centimeters (cm) Additional Dimension in Centimeters (cm): 4.5Centimeters (cm) Tumor Focality: Multifocal Tumor Extension: Tumor limited to kidney Sarcomatoid Features: Not identified Rhabdoid Features: Not identified Tumor Necrosis: Not identified LymphovascularInvasion: Not identified MARGINS Margins: Uninvolved by invasive [...] Additional Pathological Findings: Cyst(s): Simple cortical cyst 55776 X 2, 883 42, 11112 x6Left renal massA. Retroperitoneal lymph node. B. [...] fashion into the renal sinus region. The ur eter and pelvis have pendleton-pink mucosa and are [...] regions are noted, not prominent. There are prom inent macrophages, and only a small amount of [...] or fat is noted on microscopic examination High- grade tumor (sarcomatoiid, etc.) or other types of tumor are not noted.The following special studies were performed on this case and the interpretation is incorporated in the diagnostic report above: AMACR,strongly positive; RCC marker, positive; AE1/AE3-positive; RICHARD and CK 7-focally positive; SL01-qxulcdmf CD10 equivocal, possibly focally positiveThe immunohistochemistry test was developed and its performance characteristics determined by [facility], Pathology Laboratory. It has not been cleared or approved by the U.S. Food and Drug Administration. The FDA has determined that such clearance or approval is not necessary. The test is used for clinical purposes. It should not be regarded as investigational or for research. This laboratory is certified under the Clinical Laboratory Improvement Amendments of 1988 (CLIA-88) as qualified toperform high complexity clinical laboratory testing.BASIC METABOLIC [id number] 13:36:00 Test Item Value Reference Range Interpretation [...] PATIEN TS. CBC W/PLT COUNT & AUTO [id number] 12:44:00 Test Item Value Reference Range Interpretation [...] (BEAKER) (test code = 2801) BASIC METABOLIC [id number] 15:02:00 Test Item Value Reference Range Interpretation [...] PATIEN TS. Please draw at 2:00pmBASIC METABOLIC [id number] 06:14:00 Test Item Value Reference Range Interpretation [...] S NOT APPLICABLE FOR DIALYSIS PATIEN TS. [id number] 06:03:00 Test Item Value Reference Range Interpretation Comments PHOSPHORUS (BEAKER) (test code = 2.7 mg/dL 2.3-4.7 604) [id number] 06:03:00 Test Item Value Reference Range Interpretation Comments MAGNESIUM (BEAKER) (test code = 2.1 mg/dL 1.6-2.6 627) CBC W/PLT COUNT & AUTO [id number] 05:16:00 Test Item Value Reference Range Interpretation [...] 20-55 (test code = 2590) BASIC METABOLIC [id number] 05:41:00 Test Item Value Reference Range Interpretation Comments SODIUM (BEAKER) 136 meq/L 136-145 (test code = 381) POTASSIUM (BEAKER) 3.7 meq/L 3.5-5.1 (test code = 379) CHLORIDE (BEAKER) 102 meq/L 98-107 (test code = 382) CO2 (BEAKER) (test 22 meq/L -29 code = 355) BLOOD UREA NITROGEN 25 [...] S NOT APPLICABLE FOR DIALYSIS PATIEN TS. [id number] 05:36:00 Test Item Value Reference Range Interpretation Comments PHOSPHORUS (BEAKER) (test code = 2.8 mg/dL 2.3-4.7 604) [id number] 05:36:00 Test Item Value Reference Range Interpretation Comments MAGNESIUM (BEAKER) (test code = 2.2 mg/dL 1.6-2.6 627) PTH, [id number] 05:33:00 Test Item Value Reference Range Interpretation Comments PARATHYROID HORMONE INTACT 212.3 pg/mL 8.5-72.5 H (BEAKER) (test code = 577) CBC W/PLT COUNT & AUTO [id number] 05:02:00 Test Item Value Reference Range Interpretation [...] 0-1 PERCENT (BEAKER) (test code = 2801) [id number] 06:36:00 Test Item Value Reference Range Interpretation Comments PHOSPHORUS (BEAKER) (test code = 2.4 mg/dL 2.3-4.7 604) [id number] 06:36:00 Test Item Value Reference Range Interpretation Comments MAGNESIUM (BEAKER) (test code = 1.8 mg/dL 1.6-2.6 627) BASIC METABOLIC [id number] 06:36:00 Test Item Value Reference Range Interpretation [...] PATIEN TS. CBC W/PLT COUNT & AUTO [id number] 05:59:00 Test Item Value Reference Range Interpretation [...] 0-1 PERCENT (BEAKER) (test code = 2801) [id number] 19:38:00 Test Item Value Reference Range Interpretation Comments PHOSPHORUS (BEAKER) (test code = 2.8 mg/dL 2.3-4.7 604) [id number] 19:38:00 Test Item Value Reference Range Interpretation Comments MAGNESIUM (BEAKER) (test code = 1.7 mg/dL 1.6-2.6 627) BASIC METABOLIC [id number] 19:35:00 Test Item Value Reference Range Interpretation [...] APPLICABLE FOR DIALYSIS PATIEN TS. HEMOGLOBIN AND [id number] 19:07:00 Test Item Value Reference Range Interpretation Comments HEMOGLOBIN (BEAKER) (test code = 13.7 GM/DL 13.7-17.5 410) HEMATOCRIT (BEAKER) (test code = 40.5 % 40.1-51.0 411) URINE [id number] 13:12:00 Test Item Value Reference Range Interpretation Comments CULTURE (BEAKER) (test code = 1095) No growth BASIC METABOLIC [id number] 17:19:00 Test Item Value Reference Range Interpretation [...] APPLICABLE FOR DIALYSIS PATIEN TS. URINALYSIS W/ [id number] 17:15:00 Test Item Value Reference Range Interpretation [...] 1574) Rare SOURCE(BEAKER) (test code = 2795) [id number] 17:07:00 Test Item Value Reference Range Interpretation Comments PARTIAL THROMBOPLASTIN TIME 28.1 seconds 22.5-36.0 (BEAKER) (test code = 760) PROTHROMBIN [id number] 17:06:00 Test Item Value Reference Range Interpretation Comments PROTIME (BEAKER) (test code = 13.6 seconds 11.7-14.7 759) INR (BEAKER) (test code = 370) 1.0 <=5.9 RECOMMENDED COUMADIN/WARFARIN INR THERAPY RANGESSTANDARD DOSE: 2.0 - 3.0 Includes: PROPHYLAXIS for venous thrombosis, systemic embolization; TREATMENT for venous thrombosis and/or pulmonary embolus.HIGH RISK: Target INR is 2.5-3.5 for patients with mechanical heart valves.CBC W/PLT COUNT & AUTO [id number] 16:53:00 Test Item Value Reference Range Interpretation [...] PERCENT (BEAKER) (test code = 2801) TISSUE [id number] 11:47:00Surgical Pathology Report Case: [id number] Authorizing Provider: Farzad Jackson Collected: 03/02/2017 Asad Vicente MD Ordering Location: [facility] Diagnostic Imaging Received: 03/02/2017 1140 Pathologis [...] Intradepartmental consultation: Dr. Koko Whitney, Dr. Umu Manzanares/pb15384, 05075, 32000 x2Left kidney biopsy Milana browerThe specimen is received in fixative and designated [...] developed and its performance characteristics determined by [facility], Pathology Laboratory. It has [...] qualified to perform high complexity clinical laboratory testing.[id number] 08:19:00 Test Item Value Reference Range Interpretation [...] mechanical heart valves.CBC W/PLT COUNT & AUTO [id number] 08:14:00 Test Item Value Reference Range Interpretation [...]
[2022-08-18 12:17] LABS: Absolute Lymphocytes (CBC) 0.6 K/uL (0.7-4.9); Lymphocytes % 6.5 % (15.3-44.8); MCV 86.7 fL (80-100); MPV 6.7 fL (7.6-11.3); RBC Red Blood Cell Count 4.16 M/uL (4.33-5.43)
[2022-08-18 12:24] LABS: Protime INR 1.09
--- NOTE | 2022-08-18 12:33 | RAD REPORT ---
EXAM DESCRIPTION: RAD - Chest Single View - 08/18/2022 12:16 pm CLINICAL HISTORY: Cough Chest pain. COMPARISON: Abdomen 1 View (KUB) dated 08/05/2022; Chest Single View dated 08/04/2022; Chest Single Vi ew dated 03/21/2022; Chest Single View dated 05/08/2019 FINDINGS: Portable technique limits examination quality. There is left retrocardiac opacity with small left pleural effusion The heart is normal in size. No d isplaced fractures.Stent is present in the perinephric clavicular region on the right. IMPRESSION: Left retrocardiac opacity with trace left effusion likely represents pneumonia.
[2022-08-18 12:38] LABS: Albumin 2.9 g/dL (3.4-5.0); Bilirubin Total 0.4 mg/dL (0.2-1.0); Potassium 4.4 mmol/L (3.5-5.1); Protein, Total 8.1 g/dL (6.4-8.2)
[2022-08-18] MEDS ORDERED: AZITHROMYCIN 500 MG INJ IVPB ONE (12:58)
[2022-08-18] MEDS ORDERED: CEFTRIAXONE 1000 MG/VIAL ONE (12:58)
[2022-08-18] MEDS ORDERED: NA CHLORIDE 0.9% 500 ML ONE (12:59)
[2022-08-18] MEDS ORDERED: NA CHLORIDE 0.9% 250 ML ONE (12:59)
--- NOTE | 2022-08-18 13:38 | EDPHYS ---
Physician Documentation [facility] Name: Aravind Low Age: 71 yrs Sex: Male : 1950 Arrival Date: 08/18/2022 Time: 11:28 Bed 20 Private MD: ED Physician Ovidio Díaz HPI: 08/18 13:23 This 71 yrs old Black Male presents to ER via EMS with complaints of cough, sob, rn weakness. 13:23 The patient or guardian reports cough, difficulty breathing. Onset: The rn symptoms/episode began/occurred 2 day(s) ago. Severity of symptoms: At their worst the symptoms were moderate, in the emergency department the symptoms are unchanged. Modifying factors: The symptoms are alleviated by nothing, the symptoms are aggravated by nothing. Associated signs and symptoms: Pertinent positives: fever, Pertinent negatives: chest pain, vomiting. The patient has not experienced similar symptoms in the past. The patient has not recently seen a physician. Historical: - Allergies: 17:24 No Known Allergies; kr3 - Home Meds: 11:44 amlodipine oral [Active]; aspirin 81 mg Oral cap 1 cap once daily [Active]; kr3 atorvastatin oral [Active]; Clonidine Oral [Active]; Metoprolol Tartrate Oral [Active]; Hydralazine Oral [Active]; olanzapine oral [Active]; - PMHx: 11:44 CVA; ESRD; Gout; Hypertension; kidney cancer; kr3 17:48 Dementia; kr3 - Immunization history:: Adult Immunizations up to date. - Social history:: Smoking status: Patient reports the use of cigarette tobacco products, denies chronic smoking, but will smoke occasionally. - Family history:: not pertinent. - Hospitalizations: : No recent hospitalization is reported. ROS: 13:23 Constitutional: + subjective fever Eyes: Negative for injury, pain, redness, and furnace cleaner, Cardiovascular: Negative for chest pain, palpitations, and edema, Respiratory: + cough/sob Abdomen/GI: Negative for abdominal pain, vomiting, diarrhea, and constipation, MS/Extremity: Negative for injury and deformity, Skin: Negative for injury, rash, and discoloration, Neuro: + generalized weakness Exam: 13:23 Constitutional: This is a well developed, well nourished patient who is somnolent, but rn awakens to voice Head/Face: Normocephalic, atraumatic. Eyes: Periorbital areas with no swelling, redness, or edema. ENT: Dry MM, no stridor Cardiovascular: Regular rate and rhythm. No pulse deficits. Respiratory: + tachypneic, crackles bilateral bases Abdomen/GI: soft, non-tender Skin: Warm, dry MS/ Extremity: Pulses equal, no cyanosis. Neuro: Somnolent, strength 4/5 throughout but equal. 13:30 ECG was reviewed by the Attending Physician. rn Vital Signs: 11:35 BP 140 / 84; Pulse 70; Resp 17; Temp 97.6; Pulse Ox 100% ; Weight 52.16 kg; Height 5 kr3 ft. 4 in. (162.56 cm); Pain 0/10; 12:12 BP 141 / 85; Pulse 69; Resp 22; Temp 97.5(O); Pulse Ox 100% on R/A; zm 14:10 BP 114 / 69; Pulse 48; Resp 20; Pulse Ox 97% on R/A; kr3 15:00 BP 116 / 71; Pulse 53; Resp 18; Pulse Ox 99% on R/A; kr3 16:00 BP 130 / 76; Pulse 51; Resp 18; Pulse Ox 99% on R/A; kr3 17:00 BP 142 / 78; Pulse 62; Resp 18; Pulse Ox 99% on R/A; kr3 11:35 Body Mass Index 19.74 (52.16 kg, 162.56 cm) kr3 MDM: 11:31 Patient medically screened. rn 13:34 Differential Diagnosis: Bronchitis Influenza Upper Respiratory Infection Sinusitis rn Viral Syndrome Pneumonia. Data reviewed: vital signs, nurses notes, lab test result(s), EKG, radiologic studies, plain films, and as a result, I will admit patient. Consideration of Admission/Observation Escalation of care including admission/observation considered. Management of patient was discussed with the following: Hospitalist: case and management discussed with hospitalist service.. Historians other than the Patient: Spouse/Significant Other: Most of story comes from as patient is weak and somnolent. . 13:35 Counseling: I had a detailed discussion with the patient and/or guardian regarding: the rn historical points, exam findings, and any diagnostic results supporting the discharge/admit diagnosis, lab results, radiology results, the need for further work-up and treatment in the hospital. Response to treatment: the patient's symptoms have mildly improved after treatment, and as a result, I will admit patient. 08/18 11:31 Order name: Blood Culture Adult (2) rn 08/18 11:31 Order name: CBC with Diff; Complete Time: 12:37 rn 08/18 11:31 Order name: CMP; Complete Time: 15:44 rn 08/18 11:31 Order name: Lactate w/ 2H reflex if indic.; Complete Time: 12:38 rn 08/18 11:31 Order name: Protime (+inr); Complete Time: 12:37 rn 08/18 11:31 Order name: Ptt, Activated; Complete Time: 12:37 rn 08/18 11:31 Order name: Urine Culture rn 08/18 11:31 Order name: Urine Microscopic Only rn 08/18 12:38 Order name: COVID-19/FLU A+B; Complete Time: 15:44 rn 08/18 12:45 Order name: Glucose, Ancillary Testing; Complete Time: 13:28 EDTN 08/18 13:31 Order name: LAB Add On eb 08/18 13:33 Order name: NT PRO-BNP; Complete Time: 15:44 EDMS 08/18 13:47 Order name: Troponin High Sensitivity; Complete Time: 15:44 EDTN 08/18 11:31 Order name: EKG; Complete Time: 11:32 rn 08/18 11:31 Order name: Accucheck; Complete Time: 12:33 rn 08/18 11:31 Order name: Cardiac monitoring; Complete Time: 11:50 rn 08/18 11:31 Order name: EKG - Nurse/Tech; Complete Time: 11:50 rn 08/18 11:31 Order name: IV Saline Lock - Large Bore; Complete Time: 12:10 rn 08/18 11:31 Order name: Labs collected and sent; Complete Time: 12:10 rn 08/18 11:31 Order name: O2 Per Protocol; Complete Time: 12:10 rn 08/18 11:31 Order name: O2 Sat Monitoring; Complete Time: 12:10 rn 08/18 11:31 Order name: XRAY Chest (1 view); Complete Time: 12:37 rn 08/18 15:44 Order name: ABG rn 08/18 16:00 Order name: Lactate Sepsis 2 HR Follow-up EDTN 08/18 16:06 Order name: ABG Arterial Blood Gas EDTN 08/18 21:23 Order name: Glucose, Ancillary Testing EDTN 08/18 11:31 Order name: Vital Signs; Complete Time: 12:16 rn EC:30 Rate is 58 beats/min. Rhythm is regular. Right axis deviation noted. QRS is positive in rn lead aVF and negative in lead I. CT interval is normal. QRS interval is normal. QT interval is normal. No Q waves. T waves are Normal. Clinical impression: Sinus bradycardia. Interpreted by me. Reviewed by me. Administered Medications: 13:29 Drug: Zithromax (azithromycin) 500 mg Route: IVPB; Infused Over: 1 hrs; Site: left kr3 forearm; 13:29 Drug: NS 0.9% 500 ml Route: IV; Rate: bolus; Site: left forearm; kr3 13:30 Drug: Rocephin (cefTRIAXone) 1 grams Route: IV; Rate: calculated rate; Site: left kr3 forearm; Disposition Summary: 08/18/22 13:37 Hospitalization Ordered Hospitalization Status: Inpatient Admission rn Location: Telemetry/[facility] (Inpatient) rn Condition: Stable rn Problem: new rn Symptoms: have improved rn Bed/Room Type: Standard rn Provider: Raad Sanders(08/18/22 14:06) rn Room Assignment: [facility](08/18/22 17:19) eb Diagnosis - Pneumonia, unspecified organism rn - Dyspnea, unspecified rn - Chronic kidney disease, unspecified rn Forms: - Medication Reconciliation Form rn - SBAR form rn Signatures: Dispatcher [employer] [facility] Ovidio Díaz MD MD rn Botello, Elizabeth eb Reid, Kelley, RN RN kr3 Corrections: (The following items were deleted from the chart) 13:47 13:33 Troponin High Sensitivity ordered. [facility] 14:06 13:37 Jaspal Díaz rn rn 17:19 13:37 rn [facility]
--- NOTE | 2022-08-18 13:38 | ER ---
Nurse's Notes [facility] Name: Aravind Low Age: 71 yrs Sex: Male : 1950 Arrival Date: 08/18/2022 Time: 11:28 Bed 20 Private MD: Diagnosis: Pneumonia, unspecified organism;Dyspnea, unspecified;Chronic kidney disease, unspecified Presentation: 08/18 11:35 Chief complaint: EMS states: patient is from home, the called us out due to the kr3 patient becoming weaker over the last several days, eating less, productive cough, and SOB. 11:35 Method Of Arrival: EMS kr3 11:44 Coronavirus screen: Vaccine status: Patient reports receiving the 2nd dose of the covid kr3 vaccine. Ebola Screen: Patient denies travel to an Ebola-affected area in the 21 days before illness onset. Initial Sepsis Screen: Does the patient meet any 2 criteria? No. Patient's initial sepsis screen is negative. Does the patient have a suspected source of infection? Yes: Productive cough/pneumonia. Risk Assessment: Do you want to hurt yourself or someone else? Patient reports no desire to harm self or others. Onset of symptoms was August 14, 2022. 11:44 Acuity: ANTONIO 3 kr3 Triage Assessment: 11:48 General: Appears in no apparent distress. comfortable, Behavior is calm, cooperative, kr3 appropriate for age. Pain: Denies pain. Historical: - Allergies: 17:24 No Known Allergies; kr3 - Home Meds: 11:44 amlodipine oral [Active]; aspirin 81 mg Oral cap 1 cap once daily [Active]; kr3 atorvastatin oral [Active]; Clonidine Oral [Active]; Metoprolol Tartrate Oral [Active]; Hydralazine Oral [Active]; olanzapine oral [Active]; - PMHx: 11:44 CVA; ESRD; Gout; Hypertension; kidney cancer; kr3 17:48 Dementia; kr3 - Immunization history:: Adult Immunizations up to date. - Social history:: Smoking status: Patient reports the use of cigarette tobacco products, denies chronic smoking, but will smoke occasionally. - Family history:: not pertinent. - Hospitalizations: : No recent hospitalization is reported. Assessment: 14:37 Reassessment: patient is quite and hard to arouse. kr3 14:40 Reassessment: Patient appears in no apparent distress at this time. Patient and/or kr3 family updated on plan of care and expected duration. Pain level reassessed. 15:40 Reassessment: Patient appears in no apparent distress at this time. Patient and/or kr3 family updated on plan of care and expected duration. Pain level reassessed. 16:45 Reassessment: Patient appears in no apparent distress at this time. Patient and/or kr3 family updated on plan of care and expected duration. Pain level reassessed. 17:27 Reassessment: Sister Rajwinder Galeano [phone]. kr3 17:40 Reassessment: Lilia [phone]. kr3 Vital Signs: 11:35 BP 140 / 84; Pulse 70; Resp 17; Temp 97.6; Pulse Ox 100% ; Weight 52.16 kg; Height 5 kr3 ft. 4 in. (162.56 cm); Pain 0/10; 12:12 BP 141 / 85; Pulse 69; Resp 22; Temp 97.5(O); Pulse Ox 100% on R/A; zm 14:10 BP 114 / 69; Pulse 48; Resp 20; Pulse Ox 97% on R/A; kr3 15:00 BP 116 / 71; Pulse 53; Resp 18; Pulse Ox 99% on R/A; kr3 16:00 BP 130 / 76; Pulse 51; Resp 18; Pulse Ox 99% on R/A; kr3 17:00 BP 142 / 78; Pulse 62; Resp 18; Pulse Ox 99% on R/A; kr3 11:35 Body Mass Index 19.74 (52.16 kg, 162.56 cm) kr3 ED Course: 11:25 Patient placed in an exam room, on a stretcher. kr3 11:28 Patient arrived in ED. eb 11:31 Ovidio Díaz MD is Attending Physician. rn 11:35 Humaira Alatorre, EVELINA is Primary Nurse. kr3 11:44 Triage completed. kr3 11:51 EKG done, by ED staff, reviewed by Ovidio Díaz MD. zm 12:06 Inserted saline lock: 20 gauge in left forearm, using aseptic technique. Blood zm collected. 12:10 Blood Culture Adult (2) Sent. zm 12:10 CBC with Diff Sent. zm 12:10 CMP Sent. zm 12:10 Lactate w/ 2H reflex if indic. Sent. zm 12:10 Protime (+inr) Sent. zm 12:10 Ptt, Activated Sent. zm 12:18 XRAY Chest (1 view) In Process Unspecified. EDMS 12:37 Notified ED physician of a critical lab result(s). lactate 2.1. kr3 13:36 Jaspal Díaz MD is Hospitalizing Provider. rn 14:06 Raad Sanders MD is Hospitalizing Provider. rn 19:29 Primary Nurse role handed off by Humaira Alatorre, RN jl7 Administered Medications: 13:29 Drug: Zithromax (azithromycin) 500 mg Route: IVPB; Infused Over: 1 hrs; Site: left kr3 forearm; 13:29 Drug: NS 0.9% 500 ml Route: IV; Rate: bolus; Site: left forearm; kr3 13:30 Drug: Rocephin (cefTRIAXone) 1 grams Route: IV; Rate: calculated rate; Site: left kr3 forearm; Outcome: 13:37 Decision to Hospitalize by Provider. rn 21:34 Patient left the ED. zm Signatures: Dispatcher [employer] EDMS Ovidio Díaz MD MD rn Leal, Jahala, RN RN jl7 Kizzy Bains Zaina Humaira Alatorre, RN RN kr3 Corrections: (The following items were deleted from the chart) 12:20 12:12 Pulse 69bpm; Resp 22bpm; Pulse Ox 100%; Temp 97.5F; zm zm 12:22 12:12 Pulse 69bpm; Resp 22bpm; Pulse Ox 100% RA; Temp 97.5F Oral; zm 14:40 14:10 BP 173 / 96; Pulse 79bpm; Resp 20bpm; Pulse Ox 97% RA; kr3 kr3
[2022-08-18 14:05] LABS: SARS-COV-2 RT PCR NEGATIVE (NEGATIVE)
[2022-08-18] MEDS ORDERED: ONDANSETRON 4 MG/2 ML VIAL IV PRN (15:21)
[2022-08-18 15:59] LABS: Arterial Blood Carboxyhemoglob 1.2 % (0-1.5); Blood O2 Saturation 96.2 % (92-98.5)
[2022-08-18] MEDS: HEPARIN 5000 UNIT/ML 1 ML VIAL SQ SCH (17:00)
--- NOTE | 2022-08-18 17:25 | P.HP ---
Certification for Inpatient Patient admitted to: Inpatient With expected LOS: >2 Midnights Patient will require the following post-hospital care: None Practitioner: I am a practitioner with admitting privileges, knowledge of patient current condition, hospital course, and medical plan of care. Services: Services provided to patient in accordance with Admission requirements found in Title 42 Section 412.3 of the Code of Federal Regulations <Jason El - Last Filed: 08/18/22 17:20> Patient History Date of Service: 08/18/22 Reason for admission: SOB, Weakness History of Present Illness: 71-year-old male with history of CKD 4, hypertension, previous CVA, gout presents to the emergency department for complaints of cough, shortness of breath, and weakness. Patient was brought into the emergency room by his . Patient was evaluated bedside. Patient is very lethargic and unable to have conversation or follow any commands. Per ER physician, patient's symptoms started 2 days ago. reported associated symptoms of weakness, lethargy, cough with green sputum. In the ER, patient's lab were significant for creatinine 3.63, BNP 976, lactate of 2.1, BUN 36. CXR with left retro cardiac opacity with trace left effusion likely represents pneumonia. Blood cultures and urine cultures pending. Will order stat ABG due to lethargy and lack of response. Patient will be admitted under the care of Dr. Sanders. Nephrology and pulmonology will be consulted for further evaluation and recommendations. - Past Medical/Surgical History Diabetic: No -: Hypertension -: Chronic renal disease, stage IV -: History left renal mass with nephrectomy -: gout -: Left nephrectomy Psychosocial/ Personal History: Patient is - Social History Smoking Status: Unknown if ever smoked Alcohol use: No CD- Drugs: No Caffeine use: No <Jason El - Last Filed: 08/18/22 17:20> Date of Service: 08/19/22 <Raad Sanders - Last Filed: 08/19/22 06:48> Allergies No Known Allergies Allergy (Verified 05/08/19 18:47) Home Medications: RX: Amlodipine [Norvasc*] 10 mg PO DAILY 08/06/22 Aspirin [Aspirin EC] 81 mg PO DAILY #30 tab 08/12/22 RX: Atorvastatin Calcium [Lipitor] 40 mg PO BEDTIME #30 tab 08/12/22 RX: Clopidogrel Bisulfate [Plavix*] 75 mg PO DAILY #30 tab 08/12/22 RX: Ensure Enlive 237 ml PO BID #60 can 08/12/22 RX: Hydralazine [Apresoline*] 25 mg PO TID #90 tab 08/12/22 RX: Metoprolol Tartrate [Lopressor*] 25 mg PO BID 6AM 6PM #60 tab 08/12/22 RX: OLANZapine [Zyprexa*] 2.5 mg PO BEDTIME #15 tab 08/12/22 RX: Sodium Bicarbonate 1,300 mg PO BID #120 tab 08/12/22 RX: cloNIDine HCL [Catapres*] 0.3 mg PO TID #90 tab 08/12/22 RX: lisinopriL [Prinivil*] 5 mg PO DAILY #30 tab 08/12/22 Review of Systems is unable to be obtained <Jason El - Last Filed: 08/18/22 17:20> Physical Examination - Vital Signs Temperature: 97.6 F Blood Pressure: 141/85 Pulse: 69 Respirations: 18 Pulse Ox (%): 100 - Physical Exam General: Confused HEENT: Normocephalic Neck: Supple Respiratory: Crackles/rales Cardiovascular: No edema Capillary refill: <2 Seconds Gastrointestinal: Normal bowel sounds Musculoskeletal: No clubbing Integumentary: No rashes Neurological: Other Lymphatics: No axilla or inguinal lymphadenopathy - Studies Laboratory Data (last 24 hrs) 08/18/22 12:06: PT 12.0, INR 1.09, APTT 31.4 08/18/22 12:06: Sodium 139, Potassium 4.4, BUN 36 H, Creatinine 3.63 H, Glucose 149 H, Total Bilirubin 0.4, AST 34, ALT 51, Alkaline Phosphatase 85 08/18/22 12:06: WBC 8.60, Hgb 12.1 L, Hct 36.0 L, Plt Count 418 H <Jason El - Last Filed: 08/18/22 17:20> - Studies Laboratory Data (last 24 hrs) 08/18/22 12:06: PT 12.0, INR 1.09, APTT 31.4 08/18/22 12:06: Sodium 139, Potassium 4.4, BUN 36 H, Creatinine 3.63 H, Glucose 149 H, Total Bilirubin 0.4, AST 34, ALT 51, Alkaline Phosphatase 85 08/18/22 12:06: WBC 8.60, Hgb 12.1 L, Hct 36.0 L, Plt Count 418 H <Raad Sanders - Last Filed: 08/19/22 06:48> Assessment and Plan - Plan Assessment Community-acquired pneumonia End-stage renal disease OLIVIA Hypertension CVA Plan Continue IV antibiotics Continue steroids and nebulizer treatment Oxygen therapy as needed Pulmonology consulted, recommendations appreciated Nephrology consulted, recommendations appreciated Keep patient n.p.o. due to lethargy Nurse to perform bedside swallow evaluation Blood cultures, urine cultures, ABG pending Use as needed hydralazine for SBP greater than 160 DVT PPX- Heparin subq Code Status- Full code Discharge Plan: Home Plan to discharge in: Greater than 2 days - Advance Directives Does patient have a Living Will: No Does patient have a Durable POA for Healthcare: No - Code Status/Comfort Care Code Status Assessed: Yes (Full code) Critical Care: No Time Spent Managing Pts Care (In Minutes): 50 <Jason El - Last Filed: 08/18/22 17:20>
[2022-08-18] MEDS: METHYLPREDNISOLONE 40 MG INJ IV SCH (18:00)
[2022-08-18] MEDS ORDERED: METHYLPREDNISOLONE 40 MG INJ ONE (18:38)
[2022-08-18] MEDS ORDERED: HEPARIN 5000 UNIT/ML 1 ML VIAL ONE (18:38)
[2022-08-18] MEDS: ALBUTEROL 2.5 MG/3 ML NEB SOL NEB SCH (19:55)
[2022-08-18] MEDS ORDERED: ALBUTEROL 2.5 MG/3 ML NEB SOL ONE (19:56)
[2022-08-18] MEDS: CEFTRIAXONE 1,000 MG in NA CHLORIDE 0.9% 50 ML IVPB SCH (21:00)
[2022-08-18 21:17] VITALS: BMI 19.7
[2022-08-19] MEDS: METHYLPREDNISOLONE 40 MG INJ IV SCH ×3 (00:31→11:53)
[2022-08-19] MEDS: HEPARIN 5000 UNIT/ML 1 ML VIAL SQ SCH ×3 (00:31→16:52)
[2022-08-19] MEDS: ALBUTEROL 2.5 MG/3 ML NEB SOL NEB SCH ×4 (02:00→20:05)
[2022-08-19 04:19] LABS: Absolute Lymphocytes (CBC) 0.4 K/uL (0.7-4.9); Hematocrit 34.7 % (39.6-49.0); Lymphocytes % 5.8 % (15.3-44.8); RBC Red Blood Cell Count 3.99 M/uL (4.33-5.43)
[2022-08-19 04:31] LABS: Potassium 5.1 mmol/L (3.5-5.1)
[2022-08-19] MEDS ORDERED: AZITHROMYCIN IV 250 MG in NA CHLORIDE 0.9% 250 ML IVPB SCH (09:00)
[2022-08-19] MEDS: CEFTRIAXONE 1,000 MG in NA CHLORIDE 0.9% 50 ML IVPB SCH ×2 (10:04→23:08)
[2022-08-19] MEDS: NA CHLORIDE 0.9% 1,000 ML IV SCH (12:24)
--- NOTE | 2022-08-19 14:05 | CON ---
Date of Consultation: 08/19/2022 Reason For Consultation: Elevated BUN and creatinine, fluid management. History Of Present Illness: This is a 71-year-old gentleman, well known to me from the office, with significant past medical of chronic kidney disease stage 3B, small bilateral kidney/renal mass, low f rom the left kidney with nephrectomy back in 2019, baseline creatinine 2, GFR around 30. The patient was in his regular state of health, came to the hospital complaining from shortness of breath, found to have pneumonia and elevation in BUN and creatinine. For that reason, we have been consulted. Th e patient denied any nonsteroidal, no IV contrast. The patient's baseline creatinine in the 2s, grad ually started trending up lately. Last creatinine was 3 back 2019 with GFR of 25. Currently creatin ine 3.3 with GFR of 19. The patient denied any nonsteroidal, no IV contrast. He is on medications. The patient has been on ARNIE inhibitor. Past Medical History: Includes; 1.Chronic kidney disease secondary to renal mass loss, small right kidney, baseline creatinine. EGF R of 25 with proteinuria, nonnephrotic. 2.Hypertension. 3.CVA. 4.CAD. 5.Gout. Family History: Positive for hypertension. Social History: Denied smoking, denied drinking, denied drugs abuse. Review of Systems: Head and Neck: No red eye. No ear pain. GI: No nausea. No vomiting. : No polyuria. No dysuria. No hematuria. [employer] Local [employer]: Not applicable. Respiratory: Has shortness of breath. Has cough. Cardiovascular: No chest pain. Endocrine: No polydipsia. Skin: No rash. Neuro: Has weakness. Musculoskeletal: Generalized fatigue. Physical Examination: Vital Signs: When I saw the patient; blood pressure 124/55, pulse of 49, afebrile. Chest: Crackles on the left base. Heart: S1, S2. Systolic murmur. Abdomen: Soft, nontender. Extremities: No edema. Neuro: Alert. No focality. Laboratory Data: Sodium 139, potassium 5.1, bicarb 23, BUN 38, creatinine 3.3, calcium 9.7. WBC 7.6 , H and H 11.7/34.7, platelets 389. Urinalysis; PC ratio 1.5. Current Medications: The patient on include; 1.Azithromycin. 2.Ceftriaxone. 3.Heparin. 4.Zofran. Home Medications: Include; 1.Hydralazine. 2.Plavix. 3.Atorvastatin. 4.Aspirin. 5.Lisinopril. 6.Clonidine. 7.Sodium bicarb 1300 b.i.d. 8.Metoprolol. Assessment And Plan: 1.Chronic kidney disease, stage 4, close to his baseline marginal decline. I agree with holding ARNIE inhibitor for the time being. We will monitor the patient. I am going to ahead and start the patie nt on gentle hydration and we will follow up the patient. 2.Hypertension with the presence of acute kidney injury. Hold ARNIE inhibitor. 3.Marginal hyperkalemia. Hold ARNIE inhibitor. 4.Pneumonia. Continue current antibiotic, dose appropriate. 5.Coronary artery disease, stable. 6.Gout, stable. No symptoms. No need for treatment right now. Thank you, Dr. Sanders for allowing us to participate in the care of your patient. MIR Voice ID: [id number] Report ID: [id number]
--- NOTE | 2022-08-19 17:15 | P.PN ---
Subjective Date of Service: 08/19/22 Chief Complaint: SOB, Weakness No acute events overnight. He is alert and oriented x 2 this morning. Per his , this is his baseline. He reports shortness of breath and cough. He is hungry and would like to start a diet. His lethargy is improved compared to yesterday. Review of Systems 10-point ROS is otherwise unremarkable Respiratory: Cough, Shortness of Breath Physical Examination - Vital Signs Temperature: 98.6 F Blood Pressure: 158/61 Pulse: 68 Respirations: 16 Pulse Ox (%): 98 - Physical Exam General: Alert, In no apparent distress, Oriented x2 HEENT: Atraumatic, Mucous membr. moist/pink, EOMI, Sclerae nonicteric Neck: JVD not distended Respiratory: Normal air movement, Rhonchi/gurgles (scattered) Cardiovascular: No edema, Regular rate/rhythm, Normal S1 S2, No gallops, No rubs, No murmurs Gastrointestinal: Normal bowel sounds, Soft and benign, Non-distended, No tenderness, No rebound, No guarding Musculoskeletal: No clubbing Integumentary: No rashes Neurological: Normal speech, Normal affect, Other (lethargic) Assessment And Plan - Plan # Left-Sided Community Acquired Pneumonia # Acute Toxic Metabolic Encephalopathy secondary to above (improved) # Lactic Acidosis secondary to Dehydration - no SIRS criteria to suggest sepsis (resolved) - Evaluation thus far: - Does not meet sepsis criteria - Procalcitonin = pending - ABG = pH 7.44, PCO2 32.3, PO2 85.5 - Chest x-ray = "left retrocardiac opacity with trace left effusion likely represents pneumonia." - Treatment thus far: - Consulted Pulmonary Medicine - recommendations appreciated - Consulted Respiratory Therapy - Supplemental oxygen to maintain SpO2 > 92% - Ceftriaxone 1 g IV q24hr - Azithromycin 500 mg IV q24hr - Encouraged incentive spirometry - Hold home olanzapine given concern for confusion # KDIGO Stage I Acute Kidney Injury on Chronic Kidney Disease Stage IV - Nephrology consulted - recommendtaions appreciated - Creatinine = 3.63 -> 3.34 (baseline creatinine ~2.9-3.1) - Urinalysis = pending - Monitor creatinine and urine output - If worsening, obtain renal ultrasound - Renally dose medications - Continue home sodium bicarbonate # History of Cerebrovascular Accident # Hypertension - Continue home aspirin, atorvastatin, clopidogrel - Hold home amlodipine, clonidine, hydralazine, lisinopril, metoprolol given soft/normotensive blood pressures Raad Sanders M.D.
[2022-08-19] MEDS: ATORVASTATIN 40 MG TAB PO SCH (23:08)
[2022-08-19] MEDS: SODIUM BICARB 325 MG TAB PO SCH (23:08)
[2022-08-20] MEDS: HEPARIN 5000 UNIT/ML 1 ML VIAL SQ SCH ×3 (01:33→16:11)
[2022-08-20] MEDS: ALBUTEROL 2.5 MG/3 ML NEB SOL NEB SCH ×4 (01:40→19:25)
[2022-08-20 04:31] LABS: Potassium 4.3 mmol/L (3.5-5.1)
[2022-08-20] MEDS: NA CHLORIDE 0.9% 1,000 ML IV SCH (09:19)
[2022-08-20] MEDS: CEFTRIAXONE 1,000 MG in NA CHLORIDE 0.9% 50 ML IVPB SCH ×2 (09:20→21:15)
[2022-08-20] MEDS: ASPIRIN EC 81 MG TAB PO SCH (09:22)
[2022-08-20] MEDS: SODIUM BICARB 325 MG TAB PO SCH ×2 (09:22→21:16)
[2022-08-20] MEDS: AZITHROMYCIN IV 500 MG in NA CHLORIDE 0.9% 250 ML IVPB SCH (09:23)
[2022-08-20] MEDS: CLOPIDOGREL 75 MG TABLET PO SCH (09:23)
[2022-08-20] MEDS: ARFORMOTEROL TARTRATE 15 MCG/2 ML VIAL.NEB NEB SCH ×2 (11:06→19:25)
--- NOTE | 2022-08-20 11:06 | P.CNS ---
Date of Consult: 08/20/22 Reason for Consult: Possible COPD Chief Complaint: SOB, Weakness History of Present Illness: Patient is 71 years of age history of chronic renal disease hypertension possible underlying dementia admitted with cough shortness of breath which is recently discharged a week ago due to high blood pressure patient and his family they all smoke he is doing much better admitted with the possibility of pneumonia Allergies No Known Allergies Allergy (Verified 05/08/19 18:47) Home Medications: Amlodipine [Norvasc*] 10 mg PO DAILY 08/06/22 Aspirin [Aspirin EC] 81 mg PO DAILY #30 tab 08/12/22 Atorvastatin Calcium [Lipitor] 40 mg PO BEDTIME #30 tab 08/12/22 Clopidogrel Bisulfate [Plavix*] 75 mg PO DAILY #30 tab 08/12/22 Ensure Enlive 237 ml PO BID #60 can 08/12/22 Hydralazine [Apresoline*] 25 mg PO TID #90 tab 08/12/22 Metoprolol Tartrate [Lopressor*] 25 mg PO BID 6AM 6PM #60 tab 08/12/22 OLANZapine [Zyprexa*] 2.5 mg PO BEDTIME #15 tab 08/12/22 Sodium Bicarbonate 1,300 mg PO BID #120 tab 08/12/22 cloNIDine HCL [Catapres*] 0.3 mg PO TID #90 tab 08/12/22 lisinopriL [Prinivil*] 5 mg PO DAILY #30 tab 08/12/22 - Past Medical/Surgical History Diabetic: No -: Hypertension -: Chronic renal disease, stage IV -: History left renal mass with nephrectomy -: gout -: Left nephrectomy Psychosocial/ Personal History: Patient is - Family History Mother Medical History: Hypertension Brother Medical History: Heart disease Notes: deseased from [place] Father Notes: dementia Sister Medical History: Diabetes uncle Medical History: Cancer Notes: prostate - Social History Smoking Status: Current some day smoker Alcohol use: No CD- Drugs: No Caffeine use: No Place of Residence: Home Review of Systems 10-point ROS is otherwise unremarkable Physical Examination Temp Pulse Resp BP Pulse Ox 98.6 F 63 14 183/82 H 98 08/20/22 08:00 08/20/22 08:00 08/20/22 08:00 08/20/22 08:00 08/20/22 08:00 General: Alert, In no apparent distress, Oriented x3 Respiratory: Clear to auscultation bilaterally Cardiovascular: No edema, Regular rate/rhythm, Normal S1 S2 Capillary refill: >2 Seconds Gastrointestinal: Soft and benign, Non-distended - Problems (1) Shortness of breath Current Visit: Yes Status: Acute Plan: Patient is 71 years of age active smoker admitted with shortness of breath I suspect he has underlying obstructive airways disease recommend bronchodilators and steroids patient has chronic renal failure only has 1 kidney s/p nephrectomy vital signs are all stable can be discharged home on low-dose prednisone and an inhaler recommend Advair for now follow-up with me in 2 weeks
[2022-08-20] MEDS: predniSONE 20 MG TAB PO SCH ×2 (11:54→21:16)
--- NOTE | 2022-08-20 14:07 | PN ---
Date of Progress Note: 08/20/2022 Subjective: The patient was admitted with acute kidney injury on advanced chronic kidney disease. T he patient was hydrated. The patient also was admitted with pneumonia, currently on room air. Kidne y function back to baseline. Physical Examination: Vital Signs: Blood pressure 183/82, pulse of 63, afebrile. The patient had good urine output. Chest: Crackles on the left base. Heart: S1, S2. Regular. Abdomen: Soft, nontender. Extremities: No edema. Neurologic: Alert, pleasantly confused. No focality. Laboratory Data: Hemoglobin 11.7. Sodium 140, potassium 4.3, bicarb 23, BUN 45, creatinine 3, GFR 2 1, calcium 9.7. Current Medications: The patient on include; 1.Azithromycin. 2.Ceftriaxone. 3.Albuterol. 4.Plavix. 5.Hydralazine p.r.n. 6.Sodium bicarb 1300 b.i.d. 7.Zofran. 8.IV fluids and 50 per hour normal saline. Assessment And Plan: 1.Acute kidney injury on advanced chronic kidney disease secondary to toxic ATN secondary to pneumon ia, superimposed with dehydration, prerenal, secondary to poor intake, on the recovery, back close to baseline. I am going discontinue IV fluids. 2.Acidosis, recovering very well. Continue sodium bicarb. 3.Chronic kidney disease with acute kidney injury as above. 4.Hypertension, not controlled. I am going to resume beta-nahid and hydralazine. I will hold on adding ARNIE inhibitor currently and we will follow up response. 5.Pneumonia. Continue current antibiotic. We will follow up with primary. Dose appropriate. MIR Voice ID: [id number] Report ID: [id number]
[2022-08-20] MEDS: HYDRALAZINE HCL 25 MG TABLET PO SCH ×2 (14:33→21:16)
--- NOTE | 2022-08-20 16:38 | P.PN ---
Subjective Date of Service: 08/20/22 Chief Complaint: SOB, Weakness No acute events overnight. He appears to be improving clinically. He reports that his shortness of breath and cough are improved. It seems that he has significant deconditioning. Per RN, when he exerts himself his heart rate will jump to the [id number]. Review of Systems 10-point ROS is otherwise unremarkable General: Weakness (generalized) Respiratory: Cough, Shortness of Breath Physical Examination - Vital Signs Temperature: 98.3 F Blood Pressure: 187/80 Pulse: 71 Respirations: 16 Pulse Ox (%): 99 Assessment And Plan - Plan - Physical Exam General: Alert, In no apparent distress, Oriented x2 HEENT: Atraumatic, Mucous membr. moist/pink, EOMI, Sclerae nonicteric Neck: JVD not distended Respiratory: Normal air movement, Rhonchi/gurgles (scattered, faint) Cardiovascular: No edema, Regular rate/rhythm, No murmurs Gastrointestinal: Normal bowel sounds, Soft, Non-distended, No tenderness Musculoskeletal: No clubbing Integumentary: No rashes Neurological: Normal speech, Normal affect, Other (lethargic) # Left-Sided Community Acquired Pneumonia # Acute Toxic Metabolic Encephalopathy secondary to above (improved) # Lactic Acidosis secondary to Dehydration - no SIRS criteria to suggest sepsis (resolved) - Evaluation thus far: - Does not meet sepsis criteria - Procalcitonin = 0.08 - ABG = pH 7.44, PCO2 32.3, PO2 85.5 - Chest x-ray = "left retrocardiac opacity with trace left effusion likely represents pneumonia." - Treatment thus far: - Consulted Pulmonary Medicine - recommendations appreciated - Consulted Respiratory Therapy - Supplemental oxygen to maintain SpO2 > 92% - Ceftriaxone 1 g IV q24hr - Azithromycin 500 mg IV q24hr - Encouraged incentive spirometry - Hold home olanzapine given concern for confusion # KDIGO Stage I Acute Kidney Injury on Chronic Kidney Disease Stage IV (improved) - Nephrology consulted - recommendtaions appreciated - Creatinine = 3.63 -> 3.34 -> 3.09 (baseline creatinine ~2.9-3.1) - Urinalysis = pending - Monitor creatinine and urine output - If worsening, obtain renal ultrasound - Renally dose medications - Continue home sodium bicarbonate # History of Cerebrovascular Accident # Hypertension - Continue home aspirin, atorvastatin, clopidogrel - Hold home amlodipine, clonidine, hydralazine, lisinopril, metoprolol given soft/normotensive blood pressures # Deconditioning - PT consulted - recommendations appreciated Raad Sanders M.D.
[2022-08-20] MEDS: carvediloL 6.25 MG TAB PO SCH (21:15)
[2022-08-20] MEDS: ATORVASTATIN 40 MG TAB PO SCH (21:15)
[2022-08-20] MEDS: ACETAMINOPHEN 325 MG TABLET PO PRN (21:21)
[2022-08-21] MEDS: HEPARIN 5000 UNIT/ML 1 ML VIAL SQ SCH ×3 (00:44→17:16)
[2022-08-21] MEDS: ALBUTEROL 2.5 MG/3 ML NEB SOL NEB SCH ×4 (02:00→19:55)
[2022-08-21 04:14] LABS: Potassium 4.6 mmol/L (3.5-5.1)
[2022-08-21] MEDS: ARFORMOTEROL TARTRATE 15 MCG/2 ML VIAL.NEB NEB SCH ×2 (08:00→19:55)
[2022-08-21] MEDS ORDERED: AZITHROMYCIN 500 MG INJ IVPB ONE (09:21)
[2022-08-21] MEDS: CEFTRIAXONE 1,000 MG in NA CHLORIDE 0.9% 50 ML IVPB SCH ×2 (09:24→21:21)
[2022-08-21] MEDS: HYDRALAZINE HCL 20 MG/ML VIAL IV PRN ×2 (09:26→18:06)
[2022-08-21] MEDS: carvediloL 6.25 MG TAB PO SCH (09:27)
[2022-08-21] MEDS: predniSONE 20 MG TAB PO SCH ×2 (09:27→21:20)
[2022-08-21] MEDS: ASPIRIN EC 81 MG TAB PO SCH (09:27)
[2022-08-21] MEDS: CLOPIDOGREL 75 MG TABLET PO SCH (09:27)
[2022-08-21] MEDS: HYDRALAZINE HCL 25 MG TABLET PO SCH ×2 (09:27→13:52)
[2022-08-21] MEDS ORDERED: carvediloL 12.5 MG TAB PO ONE (11:13)
[2022-08-21] MEDS: AZITHROMYCIN IV 500 MG in NA CHLORIDE 0.9% 250 ML IVPB SCH (12:09)
[2022-08-21] MEDS: SODIUM BICARB 325 MG TAB PO SCH ×2 (12:10→21:20)
[2022-08-21] MEDS ORDERED: cloNIDine HCL 0.1 MG TAB PO ONE (13:40)
[2022-08-21] MEDS ORDERED: HYDRALAZINE HCL 25 MG TABLET PO SCH (21:00)
[2022-08-21] MEDS: carvediloL 12.5 MG TAB PO SCH (21:20)
[2022-08-21] MEDS: ATORVASTATIN 40 MG TAB PO SCH (21:20)
[2022-08-22] MEDS: HEPARIN 5000 UNIT/ML 1 ML VIAL SQ SCH ×3 (00:20→18:01)
[2022-08-22] MEDS: ALBUTEROL 2.5 MG/3 ML NEB SOL NEB SCH ×4 (01:50→20:00)
--- NOTE | 2022-08-22 02:44 | P.PN ---
Subjective Date of Service: 08/21/22 patient is doing well. Patient denies any new complaints. Blood pressures been elevated so will adjust BP meds. Repeat chest x-ray in the morning. Anticipate discharge home in a.m.. Review of Systems 10-point ROS is otherwise unremarkable Physical Examination - Vital Signs Temperature: 98.1 F Blood Pressure: 136/60 Pulse: 58 Respirations: 18 Pulse Ox (%): 97 - Physical Exam General: Alert, In no apparent distress HEENT: Atraumatic, PERRLA, EOMI Neck: Supple, JVD not distended Respiratory: Clear to auscultation bilaterally, Normal air movement Cardiovascular: Regular rate/rhythm, Normal S1 S2 Gastrointestinal: Normal bowel sounds, No tenderness Musculoskeletal: No tenderness Integumentary: No rashes Neurological: Normal speech, Normal tone, Normal affect Lymphatics: No axilla or inguinal lymphadenopathy - Studies Medications List Reviewed: Yes Assessment & Plan - Problems (Diagnosis) (1) Pneumonia Current Visit: Yes Status: Acute (2) Hypertensive urgency, malignant Current Visit: No Status: Acute (3) Chronic kidney disease (CKD) Current Visit: No Status: Chronic Qualifiers: Chronic kidney disease stage: stage 4 (severe) Qualified Code(s): N18.4 - Chronic kidney disease, stage 4 (severe) - Plan 1. Continue with IV antibiotics 2. Awaiting cultures which are so far negative 3. Repeat chest x-ray 4. adjust blood pressure medications 5. Continue with nebs as needed 6. O2 per protocol 7. GI and DVT prophylaxis Discharge Plan: Home Plan to discharge in: Greater than 2 days - Advance Directives Does patient have a Living Will: No Does patient have a Durable POA for Healthcare: No - Code Status/Comfort Care Code Status Assessed: Yes Code Status: Full Code Critical Care: No Time Spent Managing PTS Care (In Minutes): 30
[2022-08-22] MEDS: HYDRALAZINE HCL 20 MG/ML VIAL IV PRN ×3 (04:37→18:29)
--- NOTE | 2022-08-22 06:02 | PN ---
Date of Progress Note: 08/21/2022 Chief Complaint: Acute kidney injury. History Of Present Illness: The patient has underlying advanced chronic kidney disease. He develope d acute kidney injury. Patient received IV fluids to treat hypovolemia and acute kidney injury with prerenal azotemia and nonoliguric ATN. The patient was admitted primarily for pneumonia and he is on antibiotics. Review of Systems: Denies fever, chills. Physical Examination: Lungs: Clear to auscultation bilaterally. Heart S1-S2. Abdomen: Soft. Extremities: No edema. Laboratory Data: Hemoglobin 11.7, potassium 4.3, bicarbonate 23, BUN 45, creatinine 3, estimated GFR 21. Impression And Plan: 1.Acute kidney injury on advanced chronic kidney disease secondary to toxic ATN, secondary to pneumo tobias superimposed with volume depletion, prerenal azotemia, in setting of hypovolemic state. After di alysis, patient is improving. Continue sodium bicarbonate. 2.Acidosis towards hyperchloremic. The patient responded to sodium bicarbonate. 3.Chronic kidney disease with acute kidney injury. Avoid nephrotoxic medication. Continue IV fluid s. 4.Hypertension. The patient resume beta nahid and Hydrea. ARNIE inhibitor is on hold due to acute kidney injury. 5.Pneumonia, on antibiotics. EB/MODL Voice ID: [id number] Report ID: [id number]
[2022-08-22 06:50] LABS: Absolute Lymphocytes (CBC) 0.8 K/uL (0.7-4.9); Hematocrit 35.7 % (39.6-49.0); Lymphocytes % 10.2 % (15.3-44.8); MCV 85.5 fL (80-100); MPV 7.4 fL (7.6-11.3); RBC Red Blood Cell Count 4.17 M/uL (4.33-5.43)
--- NOTE | 2022-08-22 06:52 | RAD REPORT ---
EXAM DESCRIPTION: RAD - Chest Single View - 08/22/2022 6:18 am CLINICAL HISTORY: pneumonia COMPARISON: Portable 08/18/2022 TECHNIQUE: AP portable chest image was obtained 08/22/2022 6:18 am . FINDINGS: Right lung field is clear. There is significant improvement in the medial left lung base a eration since the comparison study. There is some residual infiltrate or atelectasis present. Heart and vasculature are normal. No measurable pleural effusion and no pneumothorax. No acute bony abnormality seen. No acute aortic findings suspected. IMPRESSION: Near complete resolution of the retrocardiac left lung base infiltrate.
[2022-08-22] MEDS ORDERED: cloNIDine HCL 0.1 MG TAB PO ONE (08:02)
[2022-08-22 08:07] LABS: Magnesium 2.5 mg/dL (1.6-2.4); Phosphorus 4.3 mg/dL (2.5-4.9); Potassium 4.1 mmol/L (3.5-5.1)
[2022-08-22] MEDS: ARFORMOTEROL TARTRATE 15 MCG/2 ML VIAL.NEB NEB SCH ×2 (08:09→20:00)
[2022-08-22] MEDS: HYDRALAZINE HCL 25 MG TABLET PO SCH ×3 (09:10→21:12)
[2022-08-22] MEDS: carvediloL 12.5 MG TAB PO SCH ×2 (09:10→21:12)
[2022-08-22] MEDS: ASPIRIN EC 81 MG TAB PO SCH (09:10)
[2022-08-22] MEDS: predniSONE 20 MG TAB PO SCH ×2 (09:10→21:12)
[2022-08-22] MEDS: SODIUM BICARB 325 MG TAB PO SCH ×2 (09:11→21:12)
[2022-08-22] MEDS: CLOPIDOGREL 75 MG TABLET PO SCH (09:11)
[2022-08-22] MEDS: CEFTRIAXONE 1,000 MG in NA CHLORIDE 0.9% 50 ML IVPB SCH ×2 (09:12→21:12)
[2022-08-22] MEDS: AZITHROMYCIN IV 500 MG in NA CHLORIDE 0.9% 250 ML IVPB SCH (09:12)
--- NOTE | 2022-08-22 12:53 | PN ---
Date of Progress Note: 08/22/2022 Subjective: The patient was admitted with pneumonia, acute kidney injury on chronic kidney disease. The patient's kidney function back to baseline. The patient is still confused. Physical Examination: Vital Signs: Blood pressure 157/86, pulse of 68, afebrile. Chest: Crackles on the left base. Heart: S1, S2. Regular. Systolic murmur. Abdomen: Soft, nontender. Extremities: No edema. Laboratory Data: Hemoglobin 12.2. Sodium 137, potassium 4.1, bicarb 23, BUN 58, creatinine 2.9, GFR 22, calcium 9.4, phosphorus 4.3. Current Medications: The patient on include; 1.Azithromycin. 2.Ceftriaxone. 3.Plavix. 4.Atorvastatin. 5.Carvedilol 12.5. 6.Clonidine 0.2 p.r.n. 7.Hydralazine 25 t.i.d., just started. 8.Sodium bicarb 1300 t.i.d. 9.Prednisone. Assessment And Plan: 1.Acute kidney injury on advanced chronic kidney disease, back to his baseline. Blood pressure slig htly on the upper side. I will keep holding ANRIE inhibitor. Continue current blood pressure medicati ons. We will adjust the blood pressure for better control. 2.Hypertension, controlled, not optimal. The patient was started on hydralazine p.r.n. and clonidin e. We will follow up. Continue carvedilol. 3.Pneumonia. Continue current antibiotic. 4.Gout, stable. 5.Hyperkalemia, resolved. 6.Acidosis. Continue sodium bicarb. DULCE MARIA/KOLE Voice ID: [id number] Report ID: [id number]
[2022-08-22] MEDS: ATORVASTATIN 40 MG TAB PO SCH (21:12)
[2022-08-22] MEDS: ACETAMINOPHEN 325 MG TABLET PO PRN (21:12)
[2022-08-23] MEDS: HEPARIN 5000 UNIT/ML 1 ML VIAL SQ SCH ×2 (01:00→08:04)
[2022-08-23] MEDS: ALBUTEROL 2.5 MG/3 ML NEB SOL NEB SCH ×3 (02:00→13:20)
[2022-08-23] MEDS: HYDRALAZINE HCL 20 MG/ML VIAL IV PRN (05:26)
[2022-08-23] MEDS ORDERED: CEFTRIAXONE 1000 MG/VIAL ONE (07:48)
[2022-08-23] MEDS ORDERED: NA CHLORIDE 0.9% 50 ML ONE (07:51)
[2022-08-23] MEDS: predniSONE 20 MG TAB PO SCH (08:03)
[2022-08-23] MEDS: CLOPIDOGREL 75 MG TABLET PO SCH (08:03)
[2022-08-23] MEDS: SODIUM BICARB 325 MG TAB PO SCH (08:03)
[2022-08-23] MEDS: ASPIRIN EC 81 MG TAB PO SCH (08:03)
[2022-08-23] MEDS: HYDRALAZINE HCL 25 MG TABLET PO SCH (08:03)
[2022-08-23] MEDS: carvediloL 12.5 MG TAB PO SCH (08:04)
[2022-08-23] MEDS: CEFTRIAXONE 1,000 MG in NA CHLORIDE 0.9% 50 ML IVPB SCH (08:06)
[2022-08-23] MEDS: ARFORMOTEROL TARTRATE 15 MCG/2 ML VIAL.NEB NEB SCH (08:10)
[2022-08-23 09:11] VITALS: O2SAT 98
[2022-08-23] MEDS: AZITHROMYCIN IV 500 MG in NA CHLORIDE 0.9% 250 ML IVPB SCH (09:53)
[2022-08-23 12:22] VITALS: BP 175/87; TEMP 97.8
[2022-08-23] MEDS ORDERED: HYDRALAZINE HCL 25 MG TABLET PO SCH (14:00)
--- NOTE | 2022-08-23 15:05 | PN ---
Date of Progress Note: 08/23/2022 Subjective: The patient doing well. The patient was admitted with pneumonia, acute kidney injury on advanced chronic kidney disease. The patient's kidney function back to baseline. Physical Examination: Vital Signs: When I saw the patient; blood pressure 180/80, pulse of 75, afebrile. Chest: Clear to auscultation. Heart: S1, S2. Regular. Abdomen: Soft, nontender. Extremities: No edema. Neurologic: Alert. Pleasantly confused. Laboratory Data: Hemoglobin 12.2. Sodium 137, potassium 4.1, bicarb 23, BUN 58, creatinine 2.9, GFR 22, calcium 9.4, phosphorus 4.3, magnesium 2.5. Current Medications: The patient on include; 1.Aspirin. 2.Azithromycin with ceftriaxone. 3.Plavix. 4.Hydralazine 25 t.i.d. 5.Carvedilol 12.5 b.i.d. 6.Prednisone. 7.Zofran. 8.Sodium bicarb 1300 b.i.d. Assessment And Plan: 1.Chronic kidney disease, stage 4, status post acute kidney injury, back to his baseline. We will c ontinue current treatment, keep holding ARNIE inhibitor. 2.Hypertension with the presence of acute kidney injury. Keep holding ARNIE inhibitor. I am going to go ahead and increase his carvedilol to 25 mg, increase hydralazine to 50 mg, and we will follow up the patient. 3.Acute kidney injury secondary to prerenal, secondary to dehydration secondary to pneumonia, recove red, back to baseline. 4.Pneumonia, status post treatment. We will follow up with primary. 5.Hyperkalemia, resolved. 6.Over volume, currently normal volume. We will continue to monitor. 7.Acidosis secondary to advanced chronic kidney disease. Continue current sodium bicarb dose. MA/MODL Voice ID: [id number] Report ID: [id number]
[2022-08-23] MEDS ORDERED: carvediloL 25 MG TAB PO SCH (21:00)
== END 2022-08-23 15:19 | disposition home health service (06) | DRG 193 ==
LOC: ER 11:22 → ERHOLD 14:28 → 4TH 20:19
PROVIDERS: ADMIT Internal Medicine; ATTEND Hospitalist
DX: J18.9 Pneumonia, unspecified organism (principal); G92.8 Other toxic encephalopathy; N17.0 Acute kidney failure with tubular necrosis; E87.20 Acidosis, unspecified; N18.4 Chronic kidney disease, stage 4 (severe); I12.9 Hypertensive chronic kidney disease with stage 1 through stage 4 chronic kidney disease, or unspecified chronic kidney disease; E87.5 Hyperkalemia; I16.0 Hypertensive urgency; E86.0 Dehydration; M10.9 Gout, unspecified; F17.210 Nicotine dependence, cigarettes, uncomplicated; I25.10 Atherosclerotic heart disease of native coronary artery without angina pectoris; Z90.5 Acquired absence of kidney; Z79.02 Long term (current) use of antithrombotics/antiplatelets; Z79.82 Long term (current) use of aspirin; Z86.73 Personal history of transient ischemic attack (TIA), and cerebral infarction without residual deficits; Z79.899 Other long term (current) drug therapy; Z20.822 Contact with and (suspected) exposure to COVID-19
CPT/HCPCS: 0240U; 36415; 71045; 80048; 80053; 82805; 82947; 83605; 83735; 83880; 84100; 84145; 84484; 85025; 85610; 85730; 87040; 93005; 94010; 94640; 96374; 96375; 97110; 97112; 97116; 97161; 97530; 99284; J0360; J0456; J1644; J2920; J7030; J7040; J7050; J7512; J7605; J7613

== ENCOUNTER 2022-09-02 21:15 | Emergency (ER) | payer OTHER ==
--- OUTSIDE RECORDS SUMMARY | 2022-09-02 21:21 | XMS REPORT | Continuity of Care Document ---
:1950 Author Organization [facility] t Address [address] [place] [address] [address]. O[address] [place] [address] Care Team Providers Name Role Phone SHARPLESS Primary Care Physician Unavailable AIMEE MCCULLOUGH Attending Clinician Unavailable Aimee Mccullough MD Attending Clinician Demetrius Larkin MD Attending Clinician DEMETRIUS LARKIN Attending Clinician Unavailable FARZAD JACKSON Attending Clinician Unavailable DEMETRIUS LARKIN Admitting Clinician Unavailable FARZAD JACKSON Admitting Clinician Unavailable Payers Payer Name Policy Type Policy Number Effective Date Expiration Date S arielle MEDICARE PART A [id number] \\T\\ [id number] - MEDICARE INDEMNITY - CIGNA [id number] MEDICARE A B [id number] 2017 00:00:00 Problems Condition Condition Condition Status Onset Resolution Last Treating Co mments Source Name Details Category Date Date Treatment Clinician Date Smoking Smoking Disease Recurre [facility] 1/2 pack a 1/2 pack a nce 5-20 Co llege day or day or 00:00: of less less 00 Medicin e Renal cell Renal cell Disease Active Overview : [facility] cancer, cancer, 3-27 [facility] left left 00:00: g of this of 00 note Medicin might be e different from the original. S/P L LAP RADICAL NEPHRECTO MY AT Pre-op Pre-op Disease Active [facility] 00 [place] Renal Renal Disease Active [facility] mass, left mass, left 3-27 Sharmaine kes 00:00: Medical 00 [place] Essential Essential Disease Active [facility] hypertensi hypertensi 2-08 Co llege on on 00:00: of Medicin e Left renal Left renal Disease Active 2016-07 [facility] mass mass 0-04 College 00:00: of Medicin e 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 00:00: Medi jennifer behavior behavior 00 Center of kidney of kidney and and ureter, ureter, unspecifie unspecifie d d laterality laterality Kidney Kidney Disease Active [facility] Disease Active Overview: [facility] (chronic (chronic [facility] Col lege kidney kidney g of this of disease) disease) note Medici n stage 4, stage 4, might be e GFR 15-29 GFR 15-29 different ml/min ml/min from the original. WITH HX OF HTN AND RCC Encephalop Encephalop Disease [facility] Allergies, Adverse Reactions, Alerts Allergy Allergy Status Severity Reaction(s) Onset Inactive Treating Comm ents Source Name Type Date Date Clinician NO KNOWN Allergy Active NEENA Turner [facility] Social History Social Habit Start Date Stop Date Quantity Comments Source History of tobacco Cigarette Smoker [facility] use of Medicine Tobacco Comment 2022-07-24 2022-07-24 20+ years [facility] Co llege 00:00:00 00:00:00 of Medicine Alcohol intake 2017-10-10 2017-10-10 [facility]00 [facility] alcohol [facility] (finding) Cigarettes smoked 2017-03-02 2017-03-[address] [facility] current (pack per 00:00:00 00:00:00 Medical Center day) - Reported Tobacco use and 2017-03-02 2017-03-[address] [facility] Sharmaine kes exposure 00:00:00 00:00:00 [facility] Sex Assigned At [address] Sharmaine kes 00:00:00 00:00:00 Medical Center Smoking Status Start Date Stop Date Source Smokes tobacco daily 2022-07-24 00:00:00 [facility] Medications Ordered Filled Start Stop Current Ordering Indication Dosage Frequency Signature Comments Components Source Medication Medication Date Date Medication? Clinician (SIG) Name Name amlodipine 2021-07 Yes TAKE 1 [facility] (NORVASC) 2-03 TABLET BY Colle ge 10 MG 00:00: MOUTH of tablet 00 EVERY DAY Medicin e clonidine Yes TAKE 1 [facility] (CATAPRESS) 1-25 TABLET BY Col lege 0.2 MG 00:00: MOUTH of tablet 00 TWICE A Medicin DAY e Tamsulosin Yes .4mg Take 0.4 [place] [facility] HCl 0.4 MG 1-25 mg by [employer] CAPS 00:00: mouth of 00 daily. Medicin e Tamsulosin 2020-07 Yes TAKE 1 [facility] HCl 0.4 MG 2-15 CAPSULE BY Col lege CAPS 00:00: MOUTH of 00 EVERY DAY Medicin e clonidine Yes TAKE 1 [facility] (CATAPRESS) 9-21 TABLET BY Col lege [...] Medic in OTHER e (CONSTIPAT ION). lactulose 2020- Yes 10g TAKE 15 ML [facility] (CHRONULAC) 2-19 BY MOUTH [facility]estine ege 10 GM/15ML 00:00: DAILY of solution 00 NEEDED FOR Medic in OTHER e (CONSTIPAT ION). lactulose 2020- Yes 10g TAKE 15 ML [facility] (CHRONULAC) 2-19 BY MOUTH [facility]estine ege 10 GM/15ML 00:00: DAILY of solution 00 NEEDED FOR Medic in OTHER e (CONSTIPAT ION). Tamsulosin 2019- Yes .4mg Take 0.4 [place] ez HCl 0-21 mg by College (FLOMAX) 00:00: mouth of 0.4 MG CAPS 00 daily. Medici n e Tamsulosin 2019- Yes .4mg Take 0.4 [place] [facility] HCl 0-21 mg by College (FLOMAX) 00:00: mouth of 0.4 MG CAPS 00 daily. Medici n e Tamsulosin 2020-1 Yes .4mg Take 0.4 [place] ez HCl 0-21 mg by College (FLOMAX) 00:00: mouth of 0.4 MG CAPS 00 daily. Medici n e Tamsulosin 2020-1 Yes .4mg Take 0.4 [place] [facility] HCl 0-21 mg by College (FLOMAX) [...] clopidogrel 2020-0 Yes 75mg Take 1 Tab [facility] (PLAVIX) 75 7-16 by mouth [facility] e[facility] MG Tablet 00:00: daily. of 00 Medicin e clopidogrel 2020-0 Yes 75mg Take 1 Tab [facility] (PLAVIX) 75 7-16 by mouth Ernestine ege MG Tablet 00:00: daily. of 00 Medicin e clopidogrel 2020-0 Yes 75mg Take 1 Tab [facility] (PLAVIX) 75 7-16 by mouth Ernestine [...] of tablet 00 bedtime Medicin e clopidogrel 2019-0 Yes 75mg Take 1 Tab [facility] (PLAVIX) 75 01-28 by mouth Ernestine ege MG Tablet 00:00: daily. of 00 Medicin e clonidine 2020- No .2mg Take 1 Tab [facility] (CATAPRESS) 01-28 by mouth Col lege 0.2 MG 00:00: 00:00 two times of tablet 00 :00 daily. Medicin e amlodipine 2020- No 10mg Take 1 Tab [facility] (NORVASC) 01-28 by mouth Colle ge 10 MG 00:00: 00:00 daily. of tablet 00 :00 Medicin e cloNIDine 2017- Yes .3mg Q.[id number] Take 0.[address] [facility] HCl 4- [id number] mg by [facility] (CATAPRES) 03:27: 3D mouth 3 Medi jennifer 0.3 MG 05 (three) Center tablet times daily. furosemide 2017-0 Yes 40mg Take [address] (LASIX) 40 4-01 by mouth [facility] MG tablet 03:27: every Medical 05 other day. Center amLODIPine 2017-0 Yes 10mg QD Take [address] (NORVASC) 4-01 by mouth [facility] 10 MG 03:27: daily. Medical tablet 05 Center cloNIDine 2017-0 Yes .3mg Q.[id number] Take 0.[address] [facility] HCl 4-01 [id number] mg by [facility] (CATAPRES) 03:27: 3D mouth 3 Medi jennifer 0.3 MG 05 (three) Center tablet times daily. furosemide 2018-0 Yes 40mg Take [address] (LASIX) 40 4-01 by mouth [facility] MG tablet 03:27: every Medical 05 other day. Center amLODIPine 2017-0 Yes 10mg QD Take [address] (NORVASC) 4-01 by mouth [facility] 10 MG 03:27: daily. Medical tablet 05 Center cloNIDine 2017-0 Yes .3mg Q.[id number] Take 0.[address] [facility] HCl 4-01 [id number] mg by [facility] (CATAPRES) 03:27: 3D mouth 3 Medi jennifer 0.3 MG 05 (three) Center tablet times daily. furosemide 2018-0 Yes 40mg Take [address] (LASIX) 40 4-01 by mouth [facility] MG tablet 03:27: every Medical 05 other day. [place] amLODIPine 2018-0 Yes 10mg QD Take [address] (NORVASC) 4-01 by mouth [facility] 10 MG 03:27: daily. Medical tablet 05 [place] cloNIDine 2018-0 Yes .3mg Q.[id number] Take 0.[address] [facility] HCl 4-01 [id number] mg by [facility] (CATAPRES) 03:27: 3D mouth 3 Medi jennifer 0.3 MG 05 (three) Center tablet times daily. furosemide 2018-0 Yes 40mg Take [address] (LASIX) 40 4-01 by mouth [facility] MG tablet 03:27: every Medical 05 other day. [place] amLODIPine 2018-0 Yes 10mg QD Take [address] (NORVASC) 4-01 by mouth [facility] 10 MG 03:27: daily. Medical tablet 05 [place] cloNIDine 2018-0 Yes .3mg Q.[id number] Take 0.[address] [facility] [address] HCl 4-01 [id number] mg by [facility] (CATAPRES) 03:27: 3D mouth 3 Medi jennifer 0.3 MG 05 (three) Center tablet times daily. furosemide 2018-0 Yes 40mg Take [address] (LASIX) 40 4-01 by mouth [facility] MG tablet 03:27: every Medical 05 other day. [place] amLODIPine 2018-0 Yes 10mg QD Take [address] (NORVASC) 4-01 by mouth [facility] 10 MG 03:27: daily. Medical tablet 05 [place] cloNIDine 2018-0 Yes .3mg Q.[id number] Take 0.[address] [facility] [address] HCl 4-01 [id number] mg by [facility] (CATAPRES) 03:27: 3D mouth 3 Medi jennifer 0.3 MG 05 (three) Center tablet times daily. furosemide 2018-0 Yes 40mg Take [address] (LASIX) 40 4-01 by mouth [facility] MG tablet 03:27: every Medical 05 other day. [place] amLODIPine 2018-0 Yes 10mg QD Take [address] (NORVASC) 4-01 by mouth [facility] 10 MG 03:27: daily. Medical tablet 05 [place] cloNIDine 2018-0 Yes .3mg Q.[id number] Take 0.[address] [facility] HCl 4-01 [id number] mg by [facility] (CATAPRES) 03:27: 3D mouth 3 Medi jennifer 0.3 MG 05 (three) [place] tablet times daily. furosemide 2018-0 Yes 40mg Take [address] (LASIX) 40 4- by mouth [facility] MG tablet 03:27: every Medical 05 other day. [place] amLODIPine 2017-0 Yes 10mg QD Take [address] (NORVASC) 4- by mouth [facility] 10 MG 03:27: daily. Medical tablet 05 [place] Vital Signs Vital Name Observation Time Observation Value Comments Source Systolic blood 2022-07-24 21:40:00 140 mm[Hg] [facility] Medicine Diastolic blood 2022-07-24 21:40:00 80 mm[Hg] [facility] Medicine Heart rate 2022-07-24 21:40:00 63 /min [facility] ol[facility] of Medicine Respiratory rate 2022-07-24 20:57:00 16 /min [facility] Body height 2022-07-24 20:57:00 [facility] Body weight 2022-07-24 20:57:00 [facility]74 [facility] BMI 2022-07-24 20:57:00 21.86 kg[facility]2 [facility] Body weight 2021-08-08 19:36:00 61.236 kg [facility] BMI 2021-08-08 19:36:00 23.91 [facility]2 [facility] Systolic blood 2021-08-08 19:36:00 130 mm[Hg] [facility] Medicine Diastolic blood 2021-08-08 19:36:00 70 mm[Hg] [facility] Medicine Heart rate 2021-08-08 19:36:00 82 /[facility] Respiratory rate 2021-08-08 19:36:00 16 /min [facility] Body height 2021-08-08 19:36:00 160 cm [facility] Systolic blood 2021-04-05 18:18:00 130 mm[Hg] [facility] Medicine Diastolic blood 2021-04-05 18:18:00 80 mm[Hg] [facility] Medicine Heart rate 2021-04-05 18:18:00 75 /min [facility] Respiratory rate 2021-04-05 18:18:00 16 /min [facility] Body height 2021-04-05 18:18:00 160 cm [facility] Body weight 2021-04-05 18:18:00 62[facility]869 [facility] BMI 2021-04-05 18:18:00 24.55 kg/m2 [facility] Systolic blood 2020-10-07 19:41:00 157 mm[Hg] [facility] Medicine Diastolic blood 2020-10-07 19:41:00 82 mm[Hg] [facility] Medicine Heart rate 2020-10-07 19:41:00 51 /min [facility] Respiratory rate 2020-10-07 19:41:00 17 /min [facility] Body height 2020-05-05 14:26:00 160 cm [facility] Body weight 2020-05-05 14:26:00 68.04 [facility] BMI 2020-05-05 14:26:00 26.57 kg/m2 [facility] Systolic blood 2020-05-05 14:26:00 159 mm[Hg] [facility] Medicine Diastolic blood 2020-05-05 14:26:00 78 mm[Hg] [facility] Medicine Heart rate 2020-05-05 14:26:00 59 /min [facility] Body temperature 2020-05-05 14:26:00 36.61 Viky [facility] Respiratory rate 2020-05-05 14:26:00 18 /min [facility] Systolic blood 2020-04-05 18:17:00 144 mm[Hg] [facility] Medicine Diastolic blood 2020-04-05 18:17:00 82 mm[Hg] [facility] Medicine Heart rate 2020-04-05 18:17:00 56 /min [facility] Body temperature 2020-04-05 18:17:00 36.44 Viky [facility] Respiratory rate 2020-04-05 18:17:00 16 /min [facility] Body height 2020-04-05 18:17:00 162.6 cm [facility] Body weight 2020-04-05 18:17:00 64.411 kg [facility] BMI 2020-04-05 18:17:00 24.37 kg/m2 [facility] Procedures Procedure Date / Time Performing Clinician Source Performed CBC W/O DIFF W PLT 2022-07-24 15:46:00 [facility] COMPREHENSIVE METABOLIC 2022-07-24 15:46:00 [facility] PTH INTACT 2022-07-24 15:46:00 [facility] PHOSPHORUS 2022-07-24 15:46:00 [facility] VITAMIN D 25 HYDROXY 2022-07-24 15:46:00 [facility] POCT URINALYSIS DIPSTICK 2020-10-07 00:00:00 Demetrius Larkin [facility] POCT URINALYSIS DIPSTICK 2020-05-05 00:00:00 Demetrius Larkin [facility] Plan of Care Planned Activity Planned Date Details Comments Source Future Scheduled 2022-07-24 CBC W/O DIFF W PLT Ordered: [facility] [employer] Test 15:28:22 [code = 6690-2] 07/24/2022 [facility] Future Scheduled 2022-07-24 COMPREHENSIVE Ordered: [facility] Col lege Test 15:28:22 METABOLIC PANEL 07/24/2022 [facility] [code = 12925-9] Future Scheduled 2022-07-24 PTH INTACT [code = Ordered: [facility] [employer] Test 15:28:22 2731-8] 07/24/2022 of [facility] Future Scheduled 2022-07-24 PHOSPHORUS [code = Ordered: [facility] Test 15:28:22 2777-1] 07/24/2022 of [facility] Future Scheduled 2022-07-24 VITAMIN D 25 HYDROXY Ordered: [facility] Test 15:28:22 [code = 1989-3] 07/24/2022 of [facility] Future Scheduled 2022-07-24 Screening for [facility] Col lege Test 14:59:21 malignant neoplasm of Medici ne of colon (procedure) [code = 006160014] Future Scheduled 2022-07-24 Pneumococcal 65+ (1 [employer] Test 14:59:21 - PCV) [code = of Medicine Pneumococcal 65+ (1 - PCV)] Future Scheduled 2022-07-24 TETANUS SHOT (ADULT) [place] [facility] Test 14:59:21 [code = TETANUS SHOT of Medi cine (ADULT)] Future Scheduled 2022-07-24 ZOSTER VACCINE (1 of [facility] College Test 14:59:21 2) [code = ZOSTER of Medicin e VACCINE (1 of 2)] Future Scheduled 2022-07-24 Medicare Awv [facility] Test 14:59:21 (Initial) [code = of Medicin e Medicare Awv (Initial)] Future Scheduled 2022-07-24 Abdominal aortic [facility] Test 14:59:21 aneurysm screening of Medici ne (procedure) [code = 344965100] Future Scheduled 2022-07-24 Fall Screen [code = [employer] Test 14:59:21 Fall Screen] of Medicine Future Scheduled 2022-07-24 COVID-19 Vaccine (3 [employer] Test 14:59:21 - Booster for Pfizer of Medi cine series) [code = COVID-19 Vaccine (3 - Booster for Pfizer series)] Future Scheduled 2022-07-24 FLU VACCINE > 6 [facility] C ollege Test 14:59:21 MONTHS [code = FLU of Medici ne VACCINE > 6 MONTHS] Future Scheduled 2022-07-16 FALLS RISK SCREENING [facility] [...] Center DEPRESSION SCREENING (12+)] Future Scheduled 2022-07-[address] [...] 2021-08-08 CBC W/O DIFF W PLT Ordered: [facility] Test 14:06:14 [code = 6690-2] 08/08/2021 of Medicine Future Scheduled 2021-08-08 COMPREHENSIVE Ordered: [facility] Col [facility]ge Test 14:06:14 METABOLIC PANEL 08/08/2021 of Medicine [code = 82742-5] Future Scheduled 2021-08-08 FERRITIN [code = Ordered: [facility] [employer] Test 14:06:14 63643-7] 08/08/2021 of Medicine Future Scheduled 2021-08-08 IRON+TIBC+%SAT [code Ordered: [facility] Test 14:06:14 = NOCPT] 08/08/2021 of Medicine Future Scheduled 2021-08-08 PHOSPHORUS [code = Ordered: [facility] r [facility] Test 14:06:14 2777-1] 08/08/2021 of Medicine Future Scheduled 2021-08-08 PTH INTACT [code = Ordered: [facility] Test 14:06:14 2731-8] 08/08/2021 of Medicine Future Scheduled 2021-08-08 VITAMIN D 25 HYDROXY Ordered: [facility] Test 14:06:14 [code = 1989-3] 08/08/2021 of Medicine Future Scheduled 2021-08-08 MICROALBUMIN/CREAT Ordered: [facility] [place] Test 14:06:14 URINE RATIO [code = 08/08/2021 of Medic ine 9318-7] Future Scheduled 2021-08-08 Screening for [facility] Col [facility]ge Test 13:35:31 malignant neoplasm of Medici ne of colon (procedure) [code = 346102989] Future Scheduled 2021-08-08 TETANUS SHOT (ADULT) [facility] Test 13:35:31 [code = TETANUS SHOT of Medi cine (ADULT)] Future Scheduled 2021-08-08 ZOSTER VACCINE (1 of [place] [employer] [facility] [employer] Test 13:35:31 2) [code = ZOSTER of Medicin e VACCINE (1 of 2)] Future Scheduled 2021-08-08 MEDICARE AWV [facility] Test 13:35:31 (Initial) [code = of Medicin e MEDICARE AWV (Initial)] Future Scheduled 2021-08-08 Abdominal aortic [facility] Test 13:35:31 aneurysm screening of Medici ne (procedure) [code = 908699862] Future Scheduled 2021-08-08 FALL SCREEN [code = [facility] or College Test 13:35:31 FALL SCREEN] of Medicine Future Scheduled 2021-08-08 Pneumococcal 65+ (1 [employer] Test 13:35:31 of 1 - PPSV23) [code of Medi cine = Pneumococcal 65+ (1 of 1 - PPSV23)] Future Scheduled 2021-08-08 FLU VACCINE > 6 [facility] C [facility]lege Test 13:35:31 MONTHS [code [...] Expires: 08/09/2021 Future Scheduled 2021-05-09 COMPREHENSIVE Expected: [facility] Col [facility]ge Test 00:00:00 METABOLIC PANEL 05/09/2021 of Medicine [code = 16093-0] (Approximate), Expires: 06/09/2021 Future Scheduled 2021-05-09 CBC W/AUTO DIFF WITH Expected: [place] [employer] [facility] [employer] Test 00:00:00 PLATELETS [code = 05/09/2021 of Medicin e 26674-3] (Approximate), Expires: 06/09/2021 Future Scheduled 2021-04-05 CBC W/AUTO DIFF WITH Ordered: [place] [facility] [employer] Test 13:38:59 PLATELETS [code = 04/05/2021 of Medicin e 49403-6] Future Scheduled 2021-04-05 COMPREHENSIVE Ordered: [facility] Col [facility] Test 13:38:59 METABOLIC PANEL 04/05/2021 of Medicine [code = 44204-4] Future Scheduled 2021-04-05 FERRITIN [code = Ordered: [facility] [employer] Test 13:38:59 29127-4] 04/05/2021 of Medicine Future Scheduled 2021-04-05 IRON+TIBC+%SAT [code Ordered: [facility] Test 13:38:59 = NOCPT] 04/05/2021 of Medicine Future Scheduled 2021-04-05 PHOSPHORUS [code = Ordered: [facility] Test 13:38:59 2777-1] 04/05/2021 of Medicine Future Scheduled 2021-04-05 PTH INTACT [code = Ordered: [facility] Test 13:38:59 2731-8] 04/05/2021 of Medicine Future Scheduled 2021-04-05 RANDOM URINE Ordered: [facility] Test 13:38:59 PROTEIN/CREATININE 04/05/2021 of Medici ne [code = 2890-2] Future Scheduled 2021-04-05 MICROALBUMIN/CREAT Ordered: [facility] [place] Test 13:38:59 URINE RATIO [code = 04/05/2021 of Medic ine 9318-7] Future Scheduled 2021-04-05 VITAMIN D 25 HYDROXY Ordered: [facility] Test 13:38:59 [code = 1989-3] 04/05/2021 of Medicine Future Scheduled 2021-04-05 ANTI NEUTROPHIL Ordered: [facility] C [facility]lege Test 13:38:59 CYTOPLASMIC ANTIBODY 04/05/2021 of Medi cine [code = 19798] Future Scheduled 2021-04-05 CBC W/AUTO DIFF WITH Ordered: [facility] Test 13:38:59 PLATELETS [code = 04/05/2021 of Medicin e 66038-6] Future Scheduled 2021-04-05 COMPREHENSIVE Ordered: [facility] Col [facility]ge Test 13:38:59 METABOLIC PANEL 04/05/2021 of Medicine [code = 43939-7] Future Scheduled 2021-04-05 FERRITIN [code = Ordered: [facility] Test 13:38:59 92336-8] 04/05/2021 of Medicine Future Scheduled 2021-04-05 IRON+TIBC+%SAT [code Ordered: [facility] Test 13:38:59 = NOCPT] 04/05/2021 of Medicine Future Scheduled 2021-04-05 PHOSPHORUS [code = Ordered: [facility] Test 13:38:59 2777-1] 04/05/2021 of Medicine Future Scheduled 2021-04-05 PTH INTACT [code = Ordered: [facility] Test 13:38:59 2731-8] 04/05/2021 of Medicine Future Scheduled 2021-04-05 RANDOM URINE Ordered: [facility] Test 13:38:59 PROTEIN/CREATININE 04/05/2021 of Medici ne [code = 2890-2] Future Scheduled 2021-04-05 MICROALBUMIN/CREAT Ordered: [facility] Test 13:38:59 URINE RATIO [code = 04/05/2021 of Medic ine 9318-7] Future Scheduled 2021-04-05 VITAMIN D 25 HYDROXY Ordered: [facility] Test 13:38:59 [code = 1989-3] 04/05/2021 of Medicine Future Scheduled 2021-04-05 ANTI NEUTROPHIL Ordered: [facility] C [facility]lege Test 13:38:59 CYTOPLASMIC ANTIBODY 04/05/2021 of Medi cine [code = 56117] Future Scheduled 2021-04-05 Screening for [facility] Col [facility]ge Test 13:19:08 malignant neoplasm of Medici ne of colon (procedure) [code = 821850540] Future Scheduled 2021-04-05 TETANUS SHOT (ADULT) [facility] Test 13:19:08 [code = TETANUS SHOT of Medi cine (ADULT)] Future Scheduled 2021-04-05 BMI FOLLOW UP PLAN [facility] Test 13:19:08 [code = BMI FOLLOW of Medici ne UP PLAN] Future Scheduled 2021-04-05 ZOSTER VACCINE (1 of [facility] Test 13:19:08 2) [code = ZOSTER of Medicin e VACCINE (1 of 2)] Future Scheduled 2021-04-05 MEDICARE AWV [facility] Test 13:19:08 (Initial) [code = of Medicin e MEDICARE AWV (Initial)] Future Scheduled 2021-04-05 Abdominal aortic [facility] [employer] Test 13:19:08 aneurysm screening of Medici ne (procedure) [code = 825922585] Future Scheduled 2021-04-05 FALL SCREEN [code = [facility] or [facility] Test 13:19:08 FALL SCREEN] of Medicine Future Scheduled 2021-04-05 PNEUMOVAX >=65 [facility] Test 13:19:08 (PPSV23) [code = of Medicine PNEUMOVAX >=65 (PPSV23)] Future Scheduled 2021-04-05 FLU VACCINE > 6 [facility] C [facility]lege Test 13:19:08 MONTHS [code = FLU of Medici ne VACCINE > 6 MONTHS] Future Scheduled 2021-04-05 Screening for [facility] Col [facility]ge Test 13:19:08 malignant neoplasm of Medici ne of colon (procedure) [code = 411129031] Future Scheduled 2021-04-05 TETANUS SHOT (ADULT) [facility] Test 13:19:08 [code = TETANUS SHOT of Medi cine (ADULT)] Future Scheduled 2021-04-05 BMI FOLLOW UP PLAN [facility] Test 13:19:08 [code = BMI FOLLOW of Medici ne UP PLAN] Future Scheduled 2021-04-05 ZOSTER VACCINE (1 of [facility] Test 13:19:08 2) [code = ZOSTER of Medicin e VACCINE (1 of 2)] Future Scheduled 2021-04-05 MEDICARE AWV [facility] Test 13:19:08 (Initial) [code = of Medicin e MEDICARE AWV (Initial)] Future Scheduled 2021-04-05 Abdominal aortic [facility] Test 13:19:08 aneurysm screening of Medici ne (procedure) [code = 810304282] Future Scheduled 2021-04-05 FALL SCREEN [code = [facility] [place] Test 13:19:08 FALL SCREEN] of Medicine Future Scheduled 2021-04-05 PNEUMOVAX >=65 [facility] [employer] Test 13:19:08 (PPSV23) [code = of Medicine PNEUMOVAX >=65 (PPSV23)] Future Scheduled 2021-04-05 FLU VACCINE > 6 [facility] Test 13:19:08 MONTHS [code [...] Diagnostic Test 2020-05-19 PSA TOTAL(URO DEPT) Expected: [facility] Pending 00:00:00 [code = 2857-1] 05/19/2020 [...] C enter Colonography (combo)] Future Scheduled [address] [facility] Test 00:00:00 (combo) [code = CT Medical C enter Colonography (combo)] Future Scheduled [address] [facility] Test 00:00:00 malignant neoplasm Medical C enter of colon (procedure) [code = 895446652] Future Scheduled [address] [facility] Test 00:00:00 malignant neoplasm Medical C enter of colon (procedure) [code = 221198365] Future Scheduled [address] [facility] Test 00:00:00 malignant neoplasm Medical C enter of colon (procedure) [code = 331612828] Future Scheduled [address] [facility] Test 00:00:00 malignant neoplasm Medical C enter of colon (procedure) [code = 539238199] Future Scheduled 1950 Sigmoidoscopy [code [facility] Test 00:00:00 = Sigmoidoscopy] Medical [place] Future Scheduled [address] [facility] Test 00:00:00 malignant neoplasm Medical C enter of colon (procedure) [code = 504466332] Future Scheduled [address] [facility] Test 00:00:00 malignant neoplasm Medical C enter of colon (procedure) [code = 532184028] Future Scheduled [address] [facility] Test 00:00:00 malignant neoplasm Medical C enter of colon (procedure) [code = 497107263] Future Scheduled [address] [facility] Test 00:00:00 malignant neoplasm Medical C enter of colon (procedure) [code = 208080685] Future Scheduled 1950 Sigmoidoscopy [code [facility] Test 00:00:00 = Sigmoidoscopy] Medical [place] Future Scheduled [address] [facility] Test 00:00:00 (combo) [code = CT Medical C enter Colonography (combo)] Future Scheduled [address] [facility] Test 00:00:00 malignant neoplasm Medical C enter of colon (procedure) [code = 366804836] Future Scheduled [address] [facility] Test 00:00:00 malignant neoplasm Medical C enter of colon (procedure) [code = 933998133] Future Scheduled [address] [facility] Test 00:00:00 malignant neoplasm Medical C enter of colon (procedure) [code = 190451736] Future Scheduled [address] [facility] Test 00:00:00 malignant neoplasm Medical C enter of colon (procedure) [code = 457509271] Future Scheduled 1950 Sigmoidoscopy [code [facility] Test 00:00:00 = Sigmoidoscopy] Medical [facility] ter Future Scheduled [address] [facility] Test 00:00:00 (combo) [code = CT Medical C enter Colonography (combo)] Future Scheduled [address] [facility] Test 00:00:00 malignant neoplasm Medical C enter of colon (procedure) [code = 560642147] Future Scheduled [address] [facility] Test 00:00:00 malignant neoplasm Medical C enter of colon (procedure) [code = 761629658] Future Scheduled [address] [facility] Test 00:00:00 malignant neoplasm Medical C enter of colon (procedure) [code = 647517705] Future Scheduled [address] [facility] Test 00:00:00 malignant neoplasm Medical C enter of colon (procedure) [code = 034352194] Future Scheduled 1950 Sigmoidoscopy [code [facility] Test 00:00:00 = Sigmoidoscopy] Medical [facility] ter Future Scheduled [address] [facility] Test 00:00:00 (combo) [code = CT Medical C enter Colonography (combo)] Future Scheduled [address] [facility] Test 00:00:00 malignant neoplasm Medical C enter of colon (procedure) [code = 193595505] Future Scheduled [address] [facility] Test 00:00:00 malignant neoplasm Medical C enter of colon (procedure) [code = 761045045] Future Scheduled [address] [facility] Test 00:00:00 malignant neoplasm Medical C enter of colon (procedure) [code = 034097467] Future Scheduled [address] [facility] Test 00:00:00 malignant neoplasm Medical C enter of colon (procedure) [code = 208139851] Future Scheduled 1950 Sigmoidoscopy [code [facility] Test 00:00:00 = Sigmoidoscopy] Medical [place] [address] Future Scheduled [address] [facility] Test 00:00:00 (combo) [code = CT Medical C enter Colonography (combo)] Future Scheduled [address] [facility] Test 00:00:00 malignant neoplasm Medical C enter of colon (procedure) [code = 768349604] Future Scheduled [address] [facility] Test 00:00:00 malignant neoplasm Medical C enter of colon (procedure) [code = 787029218] Future Scheduled [address] [facility] Test 00:00:00 malignant neoplasm Medical C enter of colon (procedure) [code = 011799609] Future Scheduled [address] [facility] Test 00:00:00 malignant neoplasm Medical C enter of colon (procedure) [code = 658411030] Future Scheduled 1950 Sigmoidoscopy [code [facility] Test 00:00:00 = Sigmoidoscopy] Medical [place] [address] Future Scheduled [address] [facility] Test 00:00:00 (combo) [code = CT Medical C enter Colonography (combo)] Future Scheduled [address] [facility] Test 00:00:00 malignant neoplasm Medical C enter of colon (procedure) [code = 814530886] Future Scheduled [address] [facility] Test 00:00:00 malignant neoplasm Medical C enter of colon (procedure) [code = 792889301] Future Scheduled [address] [facility] Test 00:00:00 malignant neoplasm Medical C enter of colon (procedure) [code = 892425714] Future Scheduled [address] [facility] Test 00:00:00 malignant neoplasm Medical C enter of colon (procedure) [code = 318559997] Future Scheduled 1950 Sigmoidoscopy [code [facility] Test 00:00:00 = Sigmoidoscopy] Medical [place] [address] Future Scheduled COLON CANCER [facility] [employer] Test SCREENING: of Medicine COLONOSCOPY [code = COLON CANCER SCREENING: COLONOSCOPY] Future Scheduled TETANUS SHOT (ADULT) [employer] Test [code = TETANUS SHOT of Medi cine (ADULT)] Future Scheduled BMI FOLLOW UP PLAN [employer] Test [code = BMI FOLLOW of Medici ne UP PLAN] Future Scheduled ZOSTER VACCINE (1 of [employer] Test 2) [code = ZOSTER of Medicin e VACCINE (1 of 2)] Future Scheduled MEDICARE AWV [facility] [employer] Test (Initial) [code = of Medicin e MEDICARE AWV (Initial)] Future Scheduled AAA Screen [code = [employer] [facility] AAA Screen] of Medicine Future Scheduled FALL SCREEN [code = [employer] [facility] FALL SCREEN] of Medicine Future Scheduled PNEUMOVAX >=65 [facility] Test (PPSV23) [code = of Medicine PNEUMOVAX >=65 (PPSV23)] Future Scheduled FLU VACCINE > 6 [facility] Test MONTHS [code = FLU of Medici ne VACCINE > 6 MONTHS] Future Scheduled URINALYSIS W REFLEX Ordered: [employer] Test MICRO [code = NOCPT] 10/07/2020 of Medi cine Future Scheduled Screening for [facility] Test malignant neoplasm of Medici ne of colon (procedure) [code = 552901321] Future Scheduled TETANUS SHOT (ADULT) [employer] Test [code = TETANUS SHOT of Medi cine (ADULT)] Future Scheduled BMI FOLLOW UP PLAN [employer] Test [code = BMI FOLLOW of Medici ne UP PLAN] Future Scheduled ZOSTER VACCINE (1 of [employer] Test 2) [code = ZOSTER of Medicin e VACCINE (1 of 2)] Future Scheduled MEDICARE AWV [facility] [employer] Test (Initial) [code = of Medicin e MEDICARE AWV (Initial)] Future Scheduled Abdominal aortic [facility] [employer] Test aneurysm screening of Medici ne (procedure) [code = 057941713] Future Scheduled FALL SCREEN [code = [employer] [facility] FALL SCREEN] of Medicine Future Scheduled PNEUMOVAX >=65 [facility] [employer] Test (PPSV23) [code = of Medicine PNEUMOVAX >=65 (PPSV23)] Future Scheduled FLU VACCINE > 6 [facility] Test MONTHS [code = FLU of Medici ne VACCINE > 6 MONTHS] Future Scheduled RANDOM URINE Ordered: [facility] ege Test PROTEIN/CREATININE 04/05/2020 of Medici ne [code = 2890-2] Future Scheduled URINALYSIS AUTO Ordered: [facility] ollege Test W/SCOPE [code = 04/05/2020 of Medicine 04110-0] Future Scheduled COLON CANCER [facility] [employer] Test SCREENING: of Medicine COLONOSCOPY [code = COLON CANCER SCREENING: COLONOSCOPY] Future Scheduled TETANUS SHOT (ADULT) [employer] Test [code = TETANUS SHOT of Medi cine (ADULT)] Future Scheduled ZOSTER VACCINE (1 of [employer] Test 2) [code = ZOSTER of Medicin e VACCINE (1 of 2)] Future Scheduled MEDICARE AWV [facility] [employer] Test (Initial) [code = of Medicin e MEDICARE AWV (Initial)] Future Scheduled AAA Screen [code = [employer] [facility] AAA Screen] of Medicine Future Scheduled FALL SCREEN [code = [employer] [facility] FALL SCREEN] of Medicine Future Scheduled PNEUMOVAX >=65 [facility] Test (PPSV23) [code = of Medicine PNEUMOVAX >=65 (PPSV23)] Future Scheduled FLU VACCINE > 6 [facility] Test MONTHS [code = FLU of Medici ne VACCINE > 6 MONTHS] Future Scheduled MRI ABDOMEN WO 1 Occurrences [facility] Test CONTRAST [code = starting of Medicine 64863-0] 05/05/2020 until 11/28/2020 Future Scheduled XR CHEST PA AND 1 Occurrences [facility] Test LATERAL [code = starting of Medicine 16288-5] 05/05/2020 until 11/28/2020 Encounters Start End Encounter Admission Attending Care Care Encounter Source Date/Time Date/Time Type Type Clinicians Facility Department ID 2022-07-24 2022-07-24 LILLIANA Clayton 1.2.840.114 [id number] [facility] 14:23:11 19:52:16 Visit SAMAYA AMBULATOR 350.1.13.21 College Y 0.2.7.2.686 of [id number] [facility] refugio 335 e 2021-08-08 2021-08-08 Office Hetal [facility] 1.2.840.114 [id number] [facility] 13:40:00 14:52:39 Visit Samaya AMBULATOR 350.1.13.21 College Y 0.2.7.2.686 of [id number] [facility] refug[facility] 335 e 2021-04-05 2021-04-05 Office Susanajeannette [facility] 1.2.840.114 [id number] [facility] 13:14:21 13:46:44 Visit Abdiazizaya AMBULATOR 350.1.13.21 College Y 0.2.7.2.686 of [id number] [facility] 335 e 2020-10-07 2020-10-07 Office Prasanna [facility] 1.2.840.114 [id number] [facility] 14:37:10 16:35:39 Visit Demetrius Kohler AMBULATOR 350.1.13.21 College Y 0.2.7.2.686 of [id number] [facility] 300 e 2020-05-25 2020-05-25 Outpatient HERMELINDA LARKIN JOSE [id number] [facility] 00:00:00 00:00:00 DEMETRIUS 2020-05-25 2020-05-25 Outpatient LARKIN, HERMELINDA SHEN [id number] [facility] 00:00:00 00:00:00 DEMETRIUS 2020-05-05 2020-05-05 Office Prasanna [facility] 1.2.840.114 [id number] [facility] 08:40:26 09:26:13 Visit Demetrius Kohler AMBULATOR 350.1.13.21 College Y 0.2.7.2.686 of [id number] [facility] 300 e 2020-04-05 2020-04-05 Office Hetal [facility] 1.2.840.114 [id number] [facility] 12:38:08 16:49:05 Visit Samaya AMBULATOR 350.1.13.21 College Y 0.2.7.2.686 of [id number] [facility] refugio 335 e 2020-03-02 2020-03-02 Outpatient EL [facility] [id number] [facility] 00:00:00 00:00:00 Results Test Description Test Time Test Comments Results Result Comments Source POCT URINALYSIS DIPSTICK 2020-10-07 00:00:00 Test Item Value Reference Range Interpretation Comme nts COLOR UA (test code = 5778-6) Yellow YELLOW/STRAW CLARITY UA (test code = 76454-7) Clear CLEAR GLUCOSE UA (test code = 5792-7) Negative NEGATIVE BILIRUBIN UA (test code = 5770-3) Negative NEGATIVE KETONES UA (test code = 38660-9) Negative NEGATIVE SPECIFIC GRAVITY UA (test code [...] NEGATIVE REDUCING SUBSTANCES URINE (test code = 16620-6) [facility] [id number] 16:51:00 Unlisted Reason for Exam - Click Yes and Enter Reason Below->YesUnlisted Reason for Exam->[facility] 1950 Sex: MFINAL [...] disease in the abdomen. Signed: Alo [place] [facility] Verified Date/Time: 05/25/2020 16:51:08 Reading Location: [address] Transitional Reading Room RAD, CHEST, 2 [id number] 10:10:00Reason for Exam:- >[facility] 1950 Sex: MFINAL [...] No acute thoracic abnormality. Signed: Ariadne Ashby MDRepdanii Verified Date/Time: 05/25/2020 10:10:41 Reading Location: [facility] Reading Room [address] [place] [address] POCT URINALYSIS DIPSTICK 2020-05-05 00:00:00 Test Item Value Reference Range Interpretation Comments COLOR UA (test code = 5778-6) [place] YELLOW/STRAW CLARITY UA (test code = 86295-5) Clear CLEAR GLUCOSE UA (test code = 5792-7) Negative NEGATIVE BILIRUBIN UA (test code = 5770-3) Negative NEGATIVE KETONES UA (test code = 86591-5) Negative NEGATIVE SPECIFIC GRAVITY UA (test code [...] NEGATIVE REDUCING SUBSTANCES URINE (test code = 34940-7) [facility] [id number] 09:38:00Surgical Pathology Report Case: [id number] Authorizing Provider: Demetrius Lrakin MD Collected: 10/09/2017 1652 Ordering Location: [facility] PERIOPERATIVE Received: 10/10/2017 0810 SERVICES Pathologist:Joyce Sauceda MD Specimens: A) - Lymph Node, RETROPERITONEAL LYMPH NODE B) - Kidney, Left, LEFT KIDNEY AND HILAR LYMPH NODE A. RETROPERITONEAL LYMPH NODES, DISSECTION - SEVEN LYMPH NODES WITHOUTTUMOR (0/7) B. KIDNEY, LEFT, RADICAL NEPHRECTOMY: - [...] SYNOPTIC REPORT Signing Pathologist Direct Phone Line: [phone] signed by Joyce Sauceda MD on 10/16/2017 [...] patient's previous biopsy from [facility], from 03/02/2017 ([id number]) shows a core biopsy with features similar [...] Findings in Nonneoplastic Kidney: Glomerular disease: arteriolonephrosclerosis, KWtype lesions Pathologic Findings in Nonneoplastic Kidney: Tubulointerstitial disease: chronic inflammation, thyroidization Additional Pathological Findings: Cyst(s): Simple cortical cyst 34448 X 2, 8834 2, 94912 x6Left renal massA. Retroperitoneal lymph node. B. Left kidney and hilar lymph nodeThe specimen is received in two containers of formalin both labeled with the patient's information.Part A: Labeled "retroperitoneal lymph node" consists of multiple ragged fragments of fibrofatty tissue measuring 3 x 2.5 x 1.5 cm yielding 7 possible lymph nodes ranging from 0.5 to 1.5 cm, submitted entirely asfollows: A1, one lymph node trisected; A2, one lymph node bisected; A3, one lymph node bisected; A4,one lymph node bisected; A5, three possible lymph nodes.Part B: Labeled "left kidney and hilar lymphnode" consists of a 342 gm left radical nephrectomy, 15 x 7 x 4.5 cm with kidney without perirenal fat, 9 x 5 x 4 cm with a ureter, 6 cm in length x 0.4 cm in diameter. An adrenal gland is not present.Cross sections of the kidney shows a large, pale, pendleton-white mass, 5.5 x 5 x 4.5 cm, replacng the entire lower pole of the kidney and extending in a "pushing" fashion into the renal sinus region. The ure ter and pelvis have pendleton-pink mucosa and are not grossly involved with tumor. In the superior pole sumaya biloculated cyst measuring 1 cm filled with [...] also grossly confined within the kidney capsule. Noother areas of suspicion are seen.Section code: B1, ureteral and vascular margins en face; B2, threepossible lymph nodes; B3, B4, tumor with lateral aspect and capsule B5, B6, tumor, sinus fat and kidney parenchyma; B7, primary tumor and satellite nodule; B8, B9, additional sections of mass and kidney parenchyma; B10, grossly normal kidney parenchyma and cystic spaces. CG/ewSections show a papillaryrenal cell carcinoma, type I, with rather abundant papillae, and with cells with relatively small nuclei and only focally prominent nucleoli. Some solid regions are noted, not prominent. There are promi nent macrophages, and only a small amount of myxoid stroma. No lymphovascular invasion is identified. A satellite nodule present in slide B7 show similar features, with a more prominent solid component. The tumor is not necrotic, does not exhibit psammoma bodies, and does not display hemorrhage. Although, on gross examination, some possible renal sinus regions contain tumor, microscopic sections showthat an attenuated capsule is present in the [...] positive; AE1/AE3-positive; RICHARD and CK 7-focally positive; OH58-vysovdfp CD10 equivocal, possibly focally positiveThe immunohistochemistry test was developed and its performance characteristics determined by [facility], Pathology Laboratory. It has not been cleared or approved by the U.S. Food and Drug Administration. The FDA has determined that such clearance or approval is not necessary. The test is usedfor clinical purposes. It should not be regarded as investigational or for research. This laboratoryis certified under the Clinical Laboratory Improvement Amendments of 1988 (CLIA-88) as qualified to perform high complexity clinical laboratory testing.BASIC METABOLIC [id number] 13:36:00 Test Item Value Reference Range Interpretation [...] PATIEN TS. CBC W/PLT COUNT & AUTO [id number] 12:44:00 Test Item Value Reference Range Interpretation [...] (BEAKER) (test code = 2801) BASIC METABOLIC [id number] 15:02:00 Test Item Value Reference Range Interpretation [...] PATIEN TS. Please draw at 2:00pmBASIC METABOLIC [id number] 06:14:00 Test Item Value Reference Range Interpretation [...] S NOT APPLICABLE FOR DIALYSIS PATIEN TS. [id number] 06:03:00 Test Item Value Reference Range Interpretation Comments PHOSPHORUS (BEAKER) (test code = 2.7 mg/dL 2.3-4.7 604) [id number] 06:03:00 Test Item Value Reference Range Interpretation Comments MAGNESIUM (BEAKER) (test code = 2.1 mg/dL 1.6-2.6 627) CBC W/PLT COUNT & AUTO [id number] 05:16:00 Test Item Value Reference Range Interpretation [...] 20-55 (test code = 2590) BASIC METABOLIC [id number] 05:41:00 Test Item Value Reference Range Interpretation [...] S NOT APPLICABLE FOR DIALYSIS PATIEN TS. [id number] 05:36:00 Test Item Value Reference Range Interpretation Comments PHOSPHORUS (BEAKER) (test code = 2.8 mg/dL 2.3-4.7 604) [id number] 05:36:00 Test Item Value Reference Range Interpretation Comments MAGNESIUM (BEAKER) (test code = 2.2 mg/dL 1.6-2.6 627) PTH, [id number] 05:33:00 Test Item Value Reference Range Interpretation Comments PARATHYROID HORMONE INTACT 212.3 pg/mL 8.5-72.5 H (BEAKER) (test code = 577) CBC W/PLT COUNT & AUTO [id number] 05:02:00 Test Item Value Reference Range Interpretation [...] 0-1 PERCENT (BEAKER) (test code = 2801) [id number] 06:36:00 Test Item Value Reference Range Interpretation Comments PHOSPHORUS (BEAKER) (test code = 2.4 mg/dL 2.3-4.7 604) [id number] 06:36:00 Test Item Value Reference Range Interpretation Comments MAGNESIUM (BEAKER) (test code = 1.8 mg/dL 1.6-2.6 627) BASIC METABOLIC [id number] 06:36:00 Test Item Value Reference Range Interpretation [...] PATIEN TS. CBC W/PLT COUNT & AUTO [id number] 05:59:00 Test Item Value Reference Range Interpretation [...] 0-1 PERCENT (BEAKER) (test code = 2801) [id number] 19:38:00 Test Item Value Reference Range Interpretation Comments PHOSPHORUS (BEAKER) (test code = 2.8 mg/dL 2.3-4.7 604) [id number] 19:38:00 Test Item Value Reference Range Interpretation Comments MAGNESIUM (BEAKER) (test code = 1.7 mg/dL 1.6-2.6 627) BASIC METABOLIC [id number] 19:35:00 Test Item Value Reference Range Interpretation [...] APPLICABLE FOR DIALYSIS PATIEN TS. HEMOGLOBIN AND [id number] 19:07:00 Test Item Value Reference Range Interpretation Comments HEMOGLOBIN (BEAKER) (test code = 13.7 GM/DL 13.7-17.5 410) HEMATOCRIT (BEAKER) (test code = 40.5 % 40.1-51.0 411) URINE [id number] 13:12:00 Test Item Value Reference Range Interpretation Comments CULTURE (BEAKER) (test code = 1095) No growth BASIC METABOLIC [id number] 17:19:00 Test Item Value Reference Range Interpretation [...] APPLICABLE FOR DIALYSIS PATIEN TS. URINALYSIS W/ [id number] 17:15:00 Test Item Value Reference Range Interpretation [...] 1574) Rare SOURCE(BEAKER) (test code = 2795) [id number] 17:07:00 Test Item Value Reference Range Interpretation Comments PARTIAL THROMBOPLASTIN TIME 28.1 seconds 22.5-36.0 (BEAKER) (test code = 760) PROTHROMBIN [id number] 17:06:00 Test Item Value Reference Range Interpretation Comments PROTIME (BEAKER) (test code = 13.6 seconds 11.7-14.7 759) INR (BEAKER) (test code = 370) 1.0 <=5.9 RECOMMENDED COUMADIN/WARFARIN INR THERAPY RANGESSTANDARD DOSE: 2.0 - 3.0 Includes: PROPHYLAXIS for venous thrombosis, systemic embolization; TREATMENT for venous thrombosis and/or pulmonary embolus.HIGH RISK: Target INR is 2.5-3.5 for patients with mechanical heart valves.CBC W/PLT COUNT & AUTO [id number] 16:53:00 Test Item Value Reference Range Interpretation [...] PERCENT (BEAKER) (test code = 2801) TISSUE [id number] 11:47:00Surgical Pathology Report Case: [id number] Authorizing Provider: Farzad Jackson Collected: 03/02/2017 Asad Vicente MD Ordering Location: [facility] Diagnostic Imaging Received: 03/02/[address]: Jenniffer Weber MD Specimen: Kidney, Left KIDNEY, [...] Intradepartmental consultation: Dr. Koko Whitney, Dr. Umu Manzanares/[id number], [id number], [id number] x2Left kidney biopsy massKidney massThe specimen is [...] developed and its performance characteristics determined by [facility], Pathology Laboratory. It has not been cleared or approved by the U.S. Food and Drug Administration. The FDA has determined that suchclearance or approval is not necessary. The test is used for clinical purposes. It should not be regarded as investigational or for research. This laboratory is certified under the Clinical Laboratory Improvement Amendments of 1988 (CLIA-88) as qualified to perform high complexity clinical laboratory testing.[id number] 08:19:00 Test Item Value Reference Range Interpretation [...] mechanical heart valves.CBC W/PLT COUNT & AUTO [id number] 08:14:00 Test Item Value Reference Range Interpretation [...]
[2022-09-02 23:01] LABS: Absolute Lymphocytes (CBC) 0.9 K/uL (0.7-4.9); Hematocrit 36.4 % (39.6-49.0); Lymphocytes % 11.5 % (15.3-44.8); MCV 87.8 fL (80-100); MPV 7.4 fL (7.6-11.3); RBC Red Blood Cell Count 4.14 M/uL (4.33-5.43)
[2022-09-02] MEDS ORDERED: ACETAMINOPHEN 500 MG TAB ONE (23:37)
[2022-09-03 00:36] LABS: Albumin 3.1 g/dL (3.4-5.0); Bilirubin Total 0.3 mg/dL (0.2-1.0); Potassium 5.2 mmol/L (3.5-5.1); Protein, Total 7.1 g/dL (6.4-8.2)
[2022-09-03 00:38] LABS: Troponin High Sensitivity 190.7 pg/mL (<58.9)
[2022-09-03 00:50] LABS: SARS-CoV-2 Antigen Rapid Res Negative (Negative)
[2022-09-03] MEDS ORDERED: FLEET ENEMA ADULT PR ONE (01:30)
--- NOTE | 2022-09-03 02:33 | ER ---
Nurse's Notes [facility] Name: Aravind Low Age: 72 yrs Sex: Male : 1950 Arrival Date: 09/02/2022 Time: 21:20 Bed 23 Private MD: Diagnosis: Constipation, unspecified;Fecal impaction;Elevated lipase level Presentation: 09/02 21:23 Chief complaint: EMS states: called out for constipation. this have been going on for a as6 couple weeks but today he started having abdominal pain. 21:49 Coronavirus screen: At this time, the client does not indicate any symptoms associated as6 with coronavirus-19. Ebola Screen: No symptoms or risks identified at this time. Initial Sepsis Screen: Does the patient meet any 2 criteria? No. Patient's initial sepsis screen is negative. Does the patient have a suspected source of infection? No. Patient's initial sepsis screen is negative. Risk Assessment: Do you want to hurt yourself or someone else? Patient reports no desire to harm self or others. Onset of symptoms is unknown. 21:49 Method Of Arrival: EMS: [facility] as6 21:49 Acuity: ANTONIO 3 as6 Historical: - Allergies: 21:55 No Known Allergies; as6 - PMHx: 21:55 kidney cancer; Gout; ESRD; Dementia; CVA; Hypertension; as6 - Immunization history:: Client reports receiving the 2nd dose of the Covid vaccine, pfizer . - Social history:: Smoking status: Patient denies any tobacco usage or history of. Assessment: 22:30 General: Appears in no apparent distress. slender, Behavior is calm, cooperative. Pain: bb Complains of pain in abdomen. Neuro: Level of Consciousness is awake, alert, obeys commands, Oriented to person, place, situation. Cardiovascular: Capillary refill < 3 seconds Patient's skin is warm and dry. Respiratory: Respiratory effort is even, unlabored, Respiratory pattern is regular. GI: Bowel sounds present X 4 quads. Abd is soft X 4 quads Reports lower abdominal pain, upper abdominal pain. Derm: Skin is dry, Skin is normal, Skin temperature is warm. Musculoskeletal: Circulation, motion, and sensation intact. 23:47 Reassessment: No changes from previously documented assessment. Patient is alert, bb oriented x 3, equal unlabored respirations, skin warm/dry/pink. pt awaiting diagnostic results, family at bedside. 09/03 01:00 Reassessment: Patient is alert, oriented x 3, equal unlabored respirations, skin bb warm/dry/pink. pt's spouse states they are ready to go she will do the enema at home instructed her on need to wait for results of CT scan. 01:50 Reassessment: administered fleet enema pt had bowel movement of small amount of soft bb brown formed stool. 02:19 Reassessment: pt had two additional bowel movements soft, formed, brown. bb 02:47 Reassessment: Patient is alert, oriented x 3, equal unlabored respirations, skin bb warm/dry/pink. pt states he is feeling better after bowel movements pt and family verbalized understanding of and agree to plan of care discharge instructions given pt assisted to exit via wheelchair accompanied by family. Vital Signs: 09/02 21:49 BP 152 / 85; Pulse 74; Resp 18 S; Temp 98.0(O); Pulse Ox 100% on R/A; Weight 49.9 kg as6 (R); Height 5 ft. 4 in. (162.56 cm) (R); Pain 7/10; 22:52 BP 149 / 89; Pulse 85; Resp 16 S; Pulse Ox 100% on R/A; bb 23:47 BP 154 / 78; Pulse 72; Resp 16 S; Pulse Ox 100% on R/A; bb 09/03 01:01 BP 166 / 94; Pulse 71; Resp 16 S; Pulse Ox 100% on R/A; bb 02:48 BP 158 / 84; Pulse 75; Resp 18 S; Pulse Ox 100% on R/A; bb 09/02 21:49 Body Mass Index 18.88 (49.90 kg, 162.56 cm) as6 ED Course: 09/02 21:20 Patient arrived in ED. jj6 21:45 Tyra Tavarez MD is Attending Physician. sd2 21:49 Arm band placed on. as6 21:55 Triage completed. as6 22:40 Angélica Mejia, EVELINA is Primary Nurse. bb 22:45 Initial lab(s) drawn, by nh, sent to lab. Inserted saline lock: 20 gauge in left bb forearm, using aseptic technique. Blood collected. 09/03 00:04 Lab(s) recollected, by me, sent to lab. bb 01:16 SARS RAPID Sent. tw5 02:47 No provider procedures requiring assistance completed. IV discontinued, intact, bb bleeding controlled, No redness/swelling at site. Pressure dressing applied. 02:49 Patient has correct armband on for positive identification. bb Administered Medications: 09/02 23:35 Drug: Tylenol 1000 mg Route: PO; bb 09/03 00:36 Follow up: Response: No adverse reaction bb 01:34 Drug: Fleet Enema (sodium phosphate) 133 ml Route: [place]; bb 02:09 Follow up: Response: No change in condition bb Medication: 02:49 VIS not applicable for this client. bb Outcome: 02:32 Discharge ordered by . sd2 02:49 Discharged to home via wheelchair, with family. bb 02:49 Condition: stable 02:49 Discharge instructions given to patient, family, Instructed on discharge instructions, follow up and referral plans. medication usage, Demonstrated understanding of instructions, follow-up care, medications. 02:49 Patient left the ED. bb Signatures: Angélica Mejia, RN RN Shilpi Almazan tw5 Vidhi Storey6 Jone Guan, EVELINA RN as6 Tyra Tavarez MD MD sd2
--- NOTE | 2022-09-03 02:33 | EDPHYS ---
Physician Documentation [facility] Name: Aravind Low Age: 72 yrs Sex: Male : 1950 Arrival Date: 09/02/2022 Time: 21:20 Bed 23 Private MD: ED Physician Tyra Tavarez HPI: 09/02 21:56 This 72 yrs old Black Male presents to ER via EMS with complaints of Abdominal Pain. sd2 21:56 72-year-old male presents via EMS with chief complaint of constipation and abdominal sd2 pain. EMS reports the patient has had on and off constipation issues for the past 2 weeks and has been seen at our facility here for this during that time frame. The patient reports abdominal pain just started today with the symptoms. He states his last bowel movement was yesterday and that it was hard. He denies any blood in his stools, fevers or vomiting or urinary symptoms. He does have a history of early dementia and does have some memory issues and is slow to respond but otherwise is at his baseline.. Historical: - Allergies: 21:55 No Known Allergies; as6 - PMHx: 21:55 kidney cancer; Gout; ESRD; Dementia; CVA; Hypertension; as6 - Immunization history:: Client reports receiving the 2nd dose of the Covid vaccine, pfizer . - Social history:: Smoking status: Patient denies any tobacco usage or history of. ROS: 21:56 Constitutional: Negative for fever, chills, and weight loss, Eyes: Negative for injury, sd2 pain, redness, and discharge, Cardiovascular: Negative for chest pain, palpitations, and edema, Respiratory: Negative for shortness of breath, cough, wheezing. 21:56 MS/Extremity: Negative for injury and deformity, Skin: Negative for injury, rash, and discoloration, Neuro: Negative for headache, numbness and tingling. 21:56 Abdomen/GI: Positive for abdominal pain, constipation, Negative for vomiting, diarrhea, black/tarry stool. Exam: 21:56 Constitutional: This is a well developed, well nourished patient who is awake, alert, sd2 and in no acute distress. Head/Face: Normocephalic, atraumatic. Eyes: EOMI, normal conjunctiva bilaterally Chest/axilla: Normal chest wall appearance and motion. Nontender with no deformity. Cardiovascular: Regular rate and rhythm with a normal S1 and S2. No gallops, murmurs, or rubs. 2+ distal pulses. Respiratory: Lungs have equal breath sounds bilaterally, clear to auscultation and percussion. No rales, rhonchi or wheezes noted. No increased work of breathing, no retractions or nasal flaring. Abdomen/GI: Soft, non-tender, with normal bowel sounds. No guarding or rebound. No evidence of tenderness throughout. Skin: Warm, dry with normal turgor. Normal color with no rashes, no lesions, and no evidence of cellulitis. MS/ Extremity: Pulses equal, no cyanosis. Neurovascular intact. Full, normal range of motion. Ambulatory without difficulty. 09/03 02:30 ECG was reviewed by the Attending Physician. NSR, rate 86, no STEMI criteria, sinus sd2 arrhythmia and baseline artifact present Vital Signs: 09/02 21:49 BP 152 / 85; Pulse 74; Resp 18 S; Temp 98.0(O); Pulse Ox 100% on R/A; Weight 49.9 kg as6 (R); Height 5 ft. 4 in. (162.56 cm) (R); Pain 7/10; 22:52 BP 149 / 89; Pulse 85; Resp 16 S; Pulse Ox 100% on R/A; bb 23:47 BP 154 / 78; Pulse 72; Resp 16 S; Pulse Ox 100% on R/A; bb 09/03 01:01 BP 166 / 94; Pulse 71; Resp 16 S; Pulse Ox 100% on R/A; bb 02:48 BP 158 / 84; Pulse 75; Resp 18 S; Pulse Ox 100% on R/A; bb 09/02 21:49 Body Mass Index 18.88 (49.90 kg, 162.56 cm) as6 MDM: 09/02 21:56 Differential Diagnosis Gastritis, cholecystitis, pancreatitis, SBO, diverticulitis, sd2 kidney stone, appendicitis, UTI, dehydration, electrolyte abnormality among others. Data reviewed: vital signs, nurses notes. I considered the following discharge prescriptions or medication management in the emergency department Medications were administered in the Emergency Department. See MAR. 22:00 Patient medically screened. sd2 09/03 02:29 Independent interpretation of the following test(s) in the Emergency Department EKG: sd2 See my EKG interpretation above telemetry monitor: rate is 86 beats/min, Rhythm is normal sinus rhythm, with no ectopy, Interpretation: normal rate, normal rhythm, Rhythm Strip Interpretation Rate: 86BPM Rhythm: regular. 02:30 Historians other than the Patient: EMS: . Spouse/Significant Other: . Care sd2 significantly affected by the following chronic conditions: Hypertension, Chronic Kidney Disease. Care significantly affected by the following Social Determinants of Health:. Counseling: I had a detailed discussion with the patient and/or guardian regarding: the historical points, exam findings, and any diagnostic results supporting the discharge/admit diagnosis, lab results, radiology results, the need for outpatient follow up, to return to the emergency department if symptoms worsen or persist or if there are any questions or concerns that arise at home. ED course: Pt had significant bowel movement in ER and feels improved. Will start on Miralax for bowel regimen and have pt follow up outpatient with PCP. Pt and verbalize understanding of discharge plan and strict return precautions at this time.. 09/02 21:46 Order name: CBC with Diff 09/02 21:46 Order name: CMP 09/02 21:46 Order name: Lipase 09/02 21:46 Order name: Troponin High Sensitivity 09/02 21:46 Order name: Urine Microscopic Only 09/02 23:02 Order name: CBC with Automated Diff; Complete Time: 23:19 EDMS 09/02 21:56 Order name: CT Abd/Pelvis - IV Contrast Only 09/03 00:20 Order name: SARS RAPID tw5 09/03 00:38 Order name: Comprehensive Metabolic Panel; Complete Time: 00:40 EDMS 09/03 00:38 Order name: Troponin High Sensitivity; Complete Time: 00:40 EDMS 09/03 00:38 Order name: Lipase; Complete Time: 00:40 EDMS 09/03 00:51 Order name: SARS-COV-2 Antigen Rapid; Complete Time: 00:51 EDMS 09/03 02:34 Order name: Troponin High Sensitivity 09/02 21:46 Order name: EKG - Nurse/Tech; Complete Time: 23:10 09/02 21:46 Order name: Urine Dipstick-Ancillary (obtain specimen) 09/03 01:42 Order name: Misc. Order: Soap suds enema; Complete Time: 02:09 sd2 Administered Medications: 09/02 23:35 Drug: Tylenol 1000 mg Route: PO; bb 09/03 00:36 Follow up: Response: No adverse reaction bb 01:34 Drug: Fleet Enema (sodium phosphate) 133 ml Route: [place]; bb 02:09 Follow up: Response: No change in condition bb Disposition Summary: 09/03/22 02:32 Discharge Ordered Location: Home sd2 Problem: new sd2 Symptoms: have improved sd2 Condition: Stable sd2 Diagnosis - Constipation, unspecified sd2 - Fecal impaction sd2 - Elevated lipase level sd2 Followup: sd2 - With: Private Physician - When: 2 - 3 days - Reason: Recheck today's complaints, Continuance of care, Re-evaluation by your physician Discharge Instructions: - Discharge Summary Sheet sd2 - Constipation, Adult sd2 - Fecal Impaction sd2 Forms: - Medication Reconciliation Form sd2 - Thank You Letter sd2 - Antibiotic Education sd2 - Prescription Opioid Use sd2 Prescriptions: - Miralax - take 17 gram by ORAL route 2 times per day; 1020 gram; Refills: 0, Product sd2 Selection Permitted Signatures: Dispatcher [employer] Angélica Gallo RN RN bb Slawson, Ashby, RN RN as6 Tyra Tavarez MD MD sd2
[2022-09-03 03:00] VITALS: TEMP 98; O2SAT 100
[2022-09-03 03:26] VITALS: BP 158/84
--- NOTE | 2022-09-04 12:38 | EKG ---
Test Date: 2022-09-02 Test Time: 23:07:16 Production Control Manager: MEASUREMENT RESULTS: Intervals: Rate: 86 TX: 174 QRSD: 70 QT: 354 QTc: 423 [place]: P: 54 TX: 174 QRS: 67 T: 82 INTERPRETIVE STATEMENTS: Normal sinus rhythm with sinus arrhythmia Nonspecific ST and T wave abnormality Abnormal ECG Compared to ECG 08/18/2022 11:48:50 Sinus bradycardia no longer present Right-axis deviation no longer present Left ventricular hypertrophy no longer present ST (T wave) deviation still present Electronically Signed On 09-04-22 12:36:02 DENTURE LABORATORY TECHNICIAN by Clark Fuller
--- NOTE | 2022-09-04 13:02 | RAD REPORT ---
EXAM DESCRIPTION: RAD - Abdomen Acute Series - 09/02/2022 10:59 pm CLINICAL HISTORY: The patient is 72 years old and is Male; CONSTIPATION HS MAIN TECHNIQUE: Frontal view of the chest, frontal view of the abdomen/pelvis and upright or decubitus vi ew of the abdomen. COMPARISON: No relevant prior studies available. FINDINGS: LUNGS: Vascular stent noted overlying the right apex. No focal consolidation. PLEURAL SPACE: Unremarkable. No pneumothorax or pneumothorax. HEART: Unremarkable. No cardiomegaly. MEDIASTINUM: Unremarkable. INTRAPERITONEAL SPACE: No pneumoperitoneum. GASTROINTESTINAL TRACT: Moderate stool burden, with nonobstructive bowel gas pattern. BONES/JOINTS: No acute osseous abnormality. SOFT TISSUES: Multiple surgical clips noted along the left of midline abdomen and in the left lowe r quadrant. VASCULATURE: Calcified atherosclerosis of the thoracic aorta. Bilateral iliofemoral vasculature ca lcifications. No overt pneumatosis or portal venous gas. IMPRESSION: No acute findings in the chest, abdomen or pelvis. Electronically signed by: Aidan Danielle MD 09/02/2022 11:47 PM COPPING MACHINE OPERATOR Due to temporary technical issues with the PACS/Fluency reporting system, reports are being signed by the in house radiologists without review as a courtesy to insure prompt reporting. The interpreting radiologist is fully responsible for the content of the report.
--- NOTE | 2022-09-04 14:23 | RAD REPORT ---
EXAM DESCRIPTION: CT - Abdomen Pelvis Wo Contrast - 09/03/2022 6:53 am CLINICAL HISTORY: 72 years Male, Abd pain TECHNIQUE: Helical CT axial images are obtained from the lung bases to the pubic symphysis without I V contrast. No oral contrast was administered. Multiplanar reconstruction. This exam was performed ac cording to our departmental dose-optimization program, which includes automated exposure control, adj ustment of the mA and/or kV according to patient size and/or use of iterative reconstruction techniqu e. COMPARISON: Abdominal radiographs performed one day prior FINDINGS: LUNG BASES: No basilar consolidation or effusions. LIVER: Normal in size. Normal attenuation. No focal masses. HEPATOBILIARY: Cholelithiasis. No intra- or extrahepatic ductal dilatation. SPLEEN: Normal size. PANCREAS: Normal size and contour. No focal mass. ADRENAL GLANDS: Normal size. No adrenal masses. KIDNEYS: Status post left nephrectomy. Right kidney is normal in size without hydronephrosis. A 2 mm right midpole nonobstructing calculus. Couple of small simple right renal cyst for which no furthe r workup is warranted. BOWEL AND MESENTERY: Paucity of mesenteric fat and lack of oral contrast limits detailed evaluation of the GI tract. Rectosigmoid fecal impaction with mild distention. Remainder of the colon is stool -filled but not distended. No small or large bowel dilatation. No significant colonic diverticulosis. The appendix is not identified. No abnormal mesenteric lymphadenopathy. No free fluid or pneumop eritoneum. RETROPERITONEUM: Normal caliber abdominal aorta without aneurysm. Moderate ASVD. No abnormal retrope ritoneal lymphadenopathy. PELVIS: Urinary bladder is suboptimally distended. Normal-sized prostate gland. ABDOMINAL WALL: Moderate subcutaneous edema. BONES: No suspicious osseous lytic or blastic lesions seen. IMPRESSION: 1. Paucity of mesenteric f at and lack of oral contrast limits detailed evaluation of the GI tract. 2. Rectosigmoid fecal impaction with mild distention. Remainder of the colon is stool-filled but no t distended. Rule out constipation/obstipation. 3. Cholelithiasis. 4. Status post left nephrectomy. 5. A 2 mm nonobstructing right midpole renal calculus. 6. Moderate anasarca. Electronically signed by: Neftali Donaldson MD 09/03/2022 1:12 AM MANUFACTURING MILLWRIGHT Due to temporary technical issues with the PACS/Fluency reporting system, reports are being signed by the in house radiologists without review as a courtesy to insure prompt reporting. The interpreting radiologist is fully responsible for the content of the report.
== END 2022-09-03 02:49 | disposition home or self-care (01) ==
LOC: ER 21:15
DX: K56.41 Fecal impaction (principal); R74.8 Abnormal levels of other serum enzymes; I12.0 Hypertensive chronic kidney disease with stage 5 chronic kidney disease or end stage renal disease; N18.6 End stage renal disease; F03.90 Unspecified dementia, unspecified severity, without behavioral disturbance, psychotic disturbance, mood disturbance, and anxiety; Z20.822 Contact with and (suspected) exposure to COVID-19
CPT/HCPCS: 36415; 74022; 74176; 80053; 82565; 83690; 84484; 85025; 87811; 93005; 99284

== ENCOUNTER 2022-09-06 12:36 | Emergency (ER) | payer OTHER ==
--- OUTSIDE RECORDS SUMMARY | 2022-09-06 12:41 | XMS REPORT | Continuity of Care Document ---
:1950 Author Organization [facility] t Address [address] [place] [address] Care Team Providers Name Role Phone SHARPLESS Primary Care Physician Unavailable AIMEE MCCULLOUGH Attending Clinician Unavailable Aimee Mccullough MD Attending Clinician Demetrius Larkin MD Attending Clinician DEMETRIUS LARKIN Attending Clinician Unavailable FARZAD JACKSON Attending Clinician Unavailable DEMETRIUS LARKIN Admitting Clinician Unavailable FARZAD JACKSON Admitting Clinician Unavailable Payers Payer Name Policy Type Policy Number Effective Date Expiration Date S arielle MEDICARE PART A [id number] \\T\\ B - MEDICARE INDEMNITY - [employer] [id number] MEDICARE A B [id number] 2017 00:00:00 Problems Condition Condition Condition Status Onset Resolution Last Treating Co mments Source Name Details Category Date Date Treatment Clinician Date Smoking Smoking Disease Recurre [facility] 1/2 pack a 1/2 pack a nce 5-20 Co llege day or day or 00:00: of less less 00 Medicin e Renal cell Renal cell Disease Active Overview : [facility] cancer, cancer, 3-27 [facility] left left 00:00: g of this of 00 note Medicin might be e different from the original. S/P L LAP RADICAL NEPHRECTO MY AT Pre-op Pre-op Disease Active [facility] Renal Renal Disease Active [facility] mass, left mass, left 3-27 [facility] kes 00:00: Medical 00 [place] Essential Essential Disease Active [facility] hypertensi hypertensi 2-08 Co llege on on 00:00: of Medicin e Left renal Left renal Disease Active 2016-07 [facility] mass 0-04 [facility] 00:00: of 00 Medicin e 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 00:00: Medi jennifer behavior behavior 00 Center of kidney of kidney and and ureter, ureter, unspecifie unspecifie d d laterality laterality Kidney Kidney Disease Active [facility] Disease Active Overview: [facility] (chronic (chronic [facility] kidney kidney g of this of disease) disease) note Medici n stage 4, stage 4, might be e GFR 15-29 GFR 15-29 different ml/min ml/min from the original. WITH HX OF HTN AND RCC Encephalop [facility]op [facility] All[facility]ies, Adverse Reactions, Alerts Allergy Allergy Status Severity Reaction(s) Onset Inactive Treating Comm ents Source Name Type Date Date Clinician NO KNOWN Allergy Active [facility] Social History Social Habit Start Date Stop Date Quantity Comments Source History of tobacco Cigarette Smoker [facility] use of Medicine Tobacco Comment 2022-07-24 2022-07-24 20+ years [facility] Co llege 00:00:00 00:00:00 of Medicine Alcohol intake 2017-10-10 2017-10-10 [facility]00 [facility] alcohol [facility] (finding) Cigarettes smoked 2017-03-02 2017-03-[address] [facility] current (pack per 00:00:00 00:00:00 Medical Center day) - Reported Tobacco use and 2017-03-02 2017-03-[address] [facility] kes exposure 00:00:00 00:00:00 [facility] Center Sex Assigned At [address] [facility] kes 00:00:00 00:00:00 Medical Center Smoking Status Start Date Stop Date Source Smokes tobacco daily 2022-07-24 00:00:00 [facility] Medications Ordered Filled Start Stop Current [...] DAY e Tamsulosin Yes .4mg Take 0.4 [facility] HCl 0.4 MG 1-25 mg by [employer] CAPS 00:00: mouth of 00 daily. Medicin [...] Medicin e clonidine Yes TAKE 1 [facility] (CATAPRESS) 9-21 TABLET BY Col lege 0.2 [...] ION). Tamsulosin 2020- Yes .4mg Take 0.4 [facility] HCl 0-21 mg by College (FLOMAX) 00:00: mouth of 0.4 MG CAPS 00 daily. Medici n e Tamsulosin 2020-1 Yes .4mg Take 0.4 [facility] HCl 0-21 mg by College (FLOMAX) 00:00: mouth of 0.4 MG CAPS 00 daily. Medici n e Tamsulosin 2020-1 Yes .4mg Take 0.4 [facility] HCl 0-21 mg by College (FLOMAX) 00:00: mouth of 0.4 MG CAPS 00 daily. Medici n e Tamsulosin 2020-1 Yes .4mg Take 0.4 [facility] HCl 0-21 mg by College (FLOMAX) [...] 2020-0 Yes 75mg Take 1 Tab [facility] (PLAVIX) 75 7-16 by mouth [facility] MG Tablet 00:00: daily. of 00 Medicin e clopidogrel 2020-0 Yes 75mg Take 1 Tab [facility] (PLAVIX) 75 7-16 by mouth [facility] e[facility] MG Tablet 00:00: daily. of 00 Medicin e clopidogrel 2020-0 Yes 75mg Take 1 Tab [facility] (PLAVIX) 75 7-16 by mouth [facility] ege [...] atorvastati 2020-0 Yes 40mg Take 1 Tab [facility] n (LIPITOR) 7-16 by mouth [facility] e[facility] 40 MG 00:00: daily. By of tablet 00 bedtime Medicin e clopidogrel 2020-0 Yes 75mg Take 1 Tab [facility] (PLAVIX) 75 01-28 by mouth [facility] e[facility] MG Tablet 00:00: daily. of 00 Medicin e clonidine 2019- 2020- No .2mg Take 1 Tab [facility] (CATAPRESS) 01-28 by mouth Col lege 0.2 MG 00:00: 00:00 two times of tablet 00 :00 daily. Medicin e amlodipine 2020- No 10mg Take 1 Tab [facility] (NORVASC) 01-28 by mouth Colle ge 10 MG 00:00: 00:00 daily. of tablet 00 :00 Medicin e cloNIDine 2017-0 Yes .3mg Q.[id number] Take 0.[address] [facility] HCl 4- [id number] mg by [facility] (CATAPRES) 03:27: 3D mouth [...] tablet 05 Center cloNIDine 2017-0 Yes .3mg Q.[id number] Take 0.[address] [facility] HCl 4-01 [id number] mg by [facility] (CATAPRES) 03:27: 3D mouth [...] tablet 05 Center cloNIDine 2017-0 Yes .3mg Q.[id number] Take 0.[address] [facility] HCl 4-01 [id number] mg by [facility] (CATAPRES) 03:27: 3D mouth 3 Medi jennifer 0.3 MG 05 (three) Center tablet times daily. furosemide 2018-0 Yes 40mg Take [address] (LASIX) 40 4-01 by mouth [facility] MG tablet 03:27: every Medical 05 other day. [place] amLODIPine 2018-0 Yes 10mg QD Take [address] (NORVASC) 4-01 by mouth [facility] 10 MG 03:27: daily. Medical tablet 05 [place] cloNIDine 2018-0 Yes .3mg Q.[id number] Take 0.[address] [facility] HCl 4-01 [id number] mg by [facility] (CATAPRES) 03:27: 3D mouth 3 Medi jennifer 0.3 MG 05 (three) Center tablet times daily. furosemide 2018-0 Yes 40mg Take [address] (LASIX) 40 4-01 by mouth [facility] MG tablet 03:27: every Medical 05 other day. [place] amLODIPine 2018-0 Yes 10mg QD Take [address] (NORVASC) 4-01 by mouth [facility] 10 MG 03:27: daily. Medical tablet 05 [place] cloNIDine 2018-0 Yes .3mg Q.[id number] Take 0.[address] [facility] HCl 4-01 [id number] mg by [facility] (CATAPRES) 03:27: 3D mouth 3 Medi jennifer 0.3 MG 05 (three) Center tablet times daily. furosemide 2018-0 Yes 40mg Take [address] (LASIX) 40 4-01 by mouth [facility] MG tablet 03:27: every Medical 05 other day. [place] amLODIPine 2018-0 Yes 10mg QD Take [address] (NORVASC) 4-01 by mouth [facility] 10 MG 03:27: daily. Medical tablet 05 [place] cloNIDine 2018-0 Yes .3mg Q.[id number] Take 0.[address] [facility] HCl 4-01 [id number] mg by [facility] (CATAPRES) 03:27: 3D mouth 3 Medi jennifer 0.3 MG 05 (three) Center tablet times daily. furosemide 2018-0 Yes 40mg Take [address] (LASIX) 40 4-01 by mouth [facility] MG tablet 03:27: every Medical 05 other day. [place] amLODIPine 2018-0 Yes 10mg QD Take [address] (NORVASC) 4-01 by mouth [facility] 10 MG 03:27: daily. Medical tablet 05 [place] cloNIDine 2018-0 Yes .3mg Q.[id number] Take 0.[address] [address] HCl 4-01 [id number] mg by [facility] (CATAPRES) 03:27: 3D mouth 3 Medi jennifer 0.3 MG 05 (three) Center tablet times daily. furosemide 2018-0 Yes 40mg Take [address] (LASIX) 40 4-01 by mouth [facility] MG tablet 03:27: every Medical 05 other day. Center amLODIPine 2018-0 Yes 10mg QD Take [address] (NORVASC) 4-01 by mouth [facility] 10 MG 03:27: daily. Medical tablet 05 [place] cloNIDine 2018-0 Yes .3mg Q.[id number] Take 0.[address] [address] HCl 4-01 [id number] mg by [facility] (CATAPRES) 03:27: 3D mouth 3 Medi jennifer 0.3 MG 05 (three) Center tablet times daily. furosemide 2018-0 Yes 40mg Take [address] (LASIX) 40 4-01 by mouth [facility] MG tablet 03:27: every Medical 05 other day. [place] amLODIPine 2018-0 Yes 10mg QD Take [address] (NORVASC) 4-01 by mouth [facility] 10 MG 03:27: daily. Medical tablet 05 [place] cloNIDine 2018-0 Yes .3mg Q.[id number] Take 0.[address] HCl 4-01 [id number] mg by [facility] (CATAPRES) 03:27: 3D mouth 3 Medi jennifer 0.3 MG 05 (three) Center tablet times daily. furosemide 2018-0 Yes 40mg Take [address] (LASIX) 40 4-01 by mouth [facility] MG tablet 03:27: every Medical 05 other day. [place] amLODIPine 2018-0 Yes 10mg QD Take [address] (NORVASC) 4-01 by mouth [facility] 10 MG 03:27: daily. Medical tablet 05 Center Vital Signs Vital Name Observation Time Observation Value Comments Source Systolic blood 2022-07-24 21:40:00 140 mm[Hg] [facility] pressure Medicine Diastolic blood 2022-07-24 21:40:00 80 mm[Hg] [facility] Medicine Heart rate 2022-07-24 21:40:00 63 /min [facility] Respiratory rate 2022-07-24 20:57:00 16 /min [facility] Body height 2022-07-24 20:57:00 160 cm [facility] C [facility]lege of Medicine Body weight 2022-07-24 20:57:00 55.974 kg [facility] C [facility]lege of Medicine BMI 2022-07-24 20:57:00 21.86 kg/m2 [facility] of Medicine Body weight 2021-08-08 19:36:00 61.236 kg [facility] C [facility]lege of Medicine BMI 2021-08-08 19:36:00 23.91 kg/m2 [facility] C ollege of Medicine Systolic blood 2021-08-08 19:36:00 130 mm[Hg] [facility] of pressure Medicine Diastolic blood 2021-08-08 19:36:00 70 mm[Hg] [facility] Medicine Heart rate 2021-08-08 19:36:00 82 /min [facility] C [facility]lege of Medicine Respiratory rate 2021-08-08 19:36:00 16 /min [facility] Body height 2021-08-08 19:36:00 160 cm [facility] ollege of Medicine Systolic blood 2021-04-05 18:18:00 130 mm[Hg] [facility] pressure Medicine Diastolic blood 2021-04-05 18:18:00 80 mm[Hg] [facility] pressure Medicine Heart rate 2021-04-05 18:18:00 75 /min [facility] ollege of Medicine Respiratory rate 2021-04-05 18:18:00 16 /min [facility] Body height 2021-04-05 18:18:00 160 cm [facility] C [facility] of Medicine Body weight 2021-04-05 18:18:00 62.869 kg [facility] C [facility]lege of Medicine BMI 2021-04-05 18:18:00 24.55 kg/m2 [facility] ollege of Medicine Systolic blood 2020-10-07 19:41:00 157 mm[Hg] [facility] pressure Medicine Diastolic blood 2020-10-07 19:41:00 82 mm[Hg] [facility] pressure Medicine Heart rate 2020-10-07 19:41:00 51 /min [facility] ollege of Medicine Respiratory rate 2020-10-07 19:41:00 17 /min [facility] Body height 2020-05-05 14:26:00 160 cm [facility] Body weight 2020-05-05 14:26:00 68.04 kg [facility] BMI 2020-05-05 14:26:00 26.57 kg/m2 [facility] Systolic blood 2020-05-05 14:26:00 159 mm[Hg] [facility] Diastolic blood 2020-05-05 14:26:00 78 mm[Hg] [facility] Heart rate 2020-05-05 14:26:00 59 /min [facility] Body temperature 2020-05-05 14:26:00 36.61 Viky [facility] Respiratory rate 2020-05-05 14:26:00 18 /min [facility] Systolic blood 2020-04-05 18:17:00 144 mm[Hg] [facility] Diastolic blood 2020-04-05 18:17:00 82 mm[Hg] [facility] Heart rate 2020-04-05 18:17:00 56 /min [facility] Body temperature 2020-04-05 18:17:00 36.44 Viky [facility] Respiratory rate 2020-04-05 18:17:00 16 /min [facility] Body height 2020-04-05 18:17:00 162.6 cm [facility] Body weight 2020-04-05 18:17:00 64.411 kg [facility] BMI 2020-04-05 18:17:00 24.37 kg/m2 [facility] Procedures Procedure Date / Time Performing Clinician Source Performed CBC W/O DIFF W PLT 2022-07-24 15:46:00 [facility] COMPREHENSIVE METABOLIC 2022-07-24 15:46:00 [facility] PTH INTACT 2022-07-24 15:46:00 [facility] PHOSPHORUS 2022-07-24 15:46:00 [facility] VITAMIN D 25 HYDROXY 2022-07-24 15:46:00 [facility] POCT URINALYSIS DIPSTICK 2020-10-07 00:00:00 Demetrius Larkin [facility] POCT URINALYSIS DIPSTICK 2020-05-05 00:00:00 Demetrius Larkin [facility] Plan of Care Planned Activity Planned Date Details Comments Source Future Scheduled 2022-07-24 CBC W/O DIFF W PLT Ordered: [employer] Test 15:28:22 [code = 6690-2] 07/24/2022 of Medicine Future Scheduled 2022-07-24 COMPREHENSIVE Ordered: [facility] Test 15:28:22 METABOLIC PANEL 07/24/2022 of Medicine [code = 31856-8] Future Scheduled 2022-07-24 PTH INTACT [code = Ordered: [employer] Test 15:28:22 2731-8] 07/24/2022 of Medicine Future Scheduled 2022-07-24 PHOSPHORUS [code = Ordered: [facility] Test 15:28:22 2777-1] 07/24/2022 of Medicine Future Scheduled 2022-07-24 VITAMIN D 25 HYDROXY Ordered: [facility] Test 15:28:22 [code = 1989-3] 07/24/2022 of Medicine Future Scheduled 2022-07-24 Screening for [facility] Test 14:59:21 malignant neoplasm of Medici ne of colon (procedure) [code = 409254943] Future Scheduled 2022-07-24 Pneumococcal 65+ (1 [employer] Test 14:59:21 - PCV) [code = of Medicine Pneumococcal 65+ (1 - PCV)] Future Scheduled 2022-07-24 TETANUS SHOT (ADULT) [facility] [employer] Test 14:59:21 [code = TETANUS SHOT of Medi cine (ADULT)] Future Scheduled 2022-07-24 ZOSTER VACCINE (1 of [employer] Test 14:59:21 2) [code = ZOSTER of Medicin e VACCINE (1 of 2)] Future Scheduled 2022-07-24 Medicare Awv [facility] Test 14:59:21 (Initial) [code = of Medicin e Medicare Awv (Initial)] Future Scheduled 2022-07-24 Abdominal aortic [facility] Test 14:59:21 aneurysm screening of Medici ne (procedure) [code = 147575132] Future Scheduled 2022-07-24 Fall Screen [code = [employer] Test 14:59:21 Fall Screen] of Medicine Future Scheduled 2022-07-24 COVID-19 Vaccine (3 [employer] Test 14:59:21 - Booster for Pfizer of Medi cine series) [code = COVID-19 Vaccine (3 - Booster for Pfizer series)] Future Scheduled 2022-07-24 FLU VACCINE > 6 [facility] Test 14:59:21 MONTHS [code = [...] 2021-08-08 CBC W/O DIFF W PLT Ordered: [facility] Test 14:06:14 [code = 6690-2] 08/08/2021 of Medicine Future Scheduled 2021-08-08 COMPREHENSIVE Ordered: [facility] Test 14:06:14 METABOLIC PANEL 08/08/2021 of Medicine [code = 52661-1] Future Scheduled 2021-08-08 FERRITIN [code = Ordered: [facility] Test 14:06:14 14968-6] 08/08/2021 of Medicine Future Scheduled 2021-08-08 IRON+TIBC+%SAT [code Ordered: [facility] Test 14:06:14 = NOCPT] 08/08/2021 of Medicine Future Scheduled 2021-08-08 PHOSPHORUS [code = Ordered: [facility] Test 14:06:14 2777-1] 08/08/2021 of Medicine Future Scheduled 2021-08-08 PTH INTACT [code = Ordered: [facility] Test 14:06:14 2731-8] 08/08/2021 of Medicine Future Scheduled 2021-08-08 VITAMIN D 25 HYDROXY Ordered: [facility] Test 14:06:14 [code = 1989-3] 08/08/2021 of Medicine Future Scheduled 2021-08-08 MICROALBUMIN/CREAT Ordered: [facility] Test 14:06:14 URINE RATIO [code = 08/08/2021 of Medic ine 9318-7] Future Scheduled 2021-08-08 Screening for [facility] Test 13:35:31 malignant neoplasm of Medici ne of colon (procedure) [code = 554477805] Future Scheduled 2021-08-08 TETANUS SHOT (ADULT) [facility] Test 13:35:31 [code = TETANUS SHOT of Medi cine (ADULT)] Future Scheduled 2021-08-08 ZOSTER VACCINE (1 of [facility] Test 13:35:31 2) [code = ZOSTER of Medicin e VACCINE (1 of 2)] Future Scheduled 2021-08-08 MEDICARE AWV [facility] Test 13:35:31 (Initial) [code = of Medicin e MEDICARE AWV (Initial)] Future Scheduled 2021-08-08 Abdominal aortic [facility] [employer] Test 13:35:31 aneurysm screening of Medici ne (procedure) [code = 274358707] Future Scheduled 2021-08-08 FALL SCREEN [code = [...] METABOLIC PANEL 05/09/2021 of Medicine [code = 10775-4] (Approximate), Expires: 06/09/2021 Future Scheduled 2021-05-09 CBC W/AUTO DIFF WITH Expected: [employer] Test 00:00:00 PLATELETS [code = 05/09/2021 of Medicin e 46597-1] (Approximate), Expires: 06/09/2021 Future Scheduled 2021-04-05 CBC W/AUTO DIFF WITH Ordered: [employer] Test 13:38:59 PLATELETS [code = 04/05/2021 of Medicin e 29881-2] Future Scheduled 2021-04-05 COMPREHENSIVE Ordered: [facility] Test 13:38:59 METABOLIC PANEL 04/05/2021 of Medicine [code = 82856-3] Future Scheduled 2021-04-05 FERRITIN [code = Ordered: [facility] [employer] Test 13:38:59 85004-7] 04/05/2021 of Medicine Future Scheduled 2021-04-05 IRON+TIBC+%SAT [code Ordered: [employer] Test 13:38:59 = NOCPT] 04/05/2021 of Medicine Future Scheduled 2021-04-05 PHOSPHORUS [code = Ordered: [employer] Test 13:38:59 2777-1] 04/05/2021 of Medicine Future Scheduled 2021-04-05 PTH INTACT [code = Ordered: [employer] Test 13:38:59 2731-8] 04/05/2021 of Medicine Future Scheduled 2021-04-05 RANDOM URINE Ordered: [facility] Test 13:38:59 PROTEIN/CREATININE 04/05/2021 of Medici ne [code = 2890-2] Future Scheduled 2021-04-05 MICROALBUMIN/CREAT Ordered: [facility] Test 13:38:59 URINE RATIO [code = 04/05/2021 of Medic ine 9318-7] Future Scheduled 2021-04-05 VITAMIN D 25 HYDROXY Ordered: [facility] [employer] Test 13:38:59 [code = 1989-3] 04/05/2021 of Medicine Future Scheduled 2021-04-05 ANTI NEUTROPHIL Ordered: [facility] Test 13:38:59 CYTOPLASMIC ANTIBODY 04/05/2021 of Medi cine [code = 12267] Future Scheduled 2021-04-05 CBC W/AUTO DIFF WITH Ordered: [facility] [employer] Test 13:38:59 PLATELETS [code = 04/05/2021 of Medicin e 90694-7] Future Scheduled 2021-04-05 COMPREHENSIVE Ordered: [facility] Test 13:38:59 METABOLIC PANEL 04/05/2021 of Medicine [code = 43451-5] Future Scheduled 2021-04-05 FERRITIN [code = Ordered: [facility] [employer] Test 13:38:59 64862-2] 04/05/2021 of Medicine Future Scheduled 2021-04-05 IRON+TIBC+%SAT [code Ordered: [facility] [employer] Test 13:38:59 = NOCPT] 04/05/2021 of Medicine Future Scheduled 2021-04-05 PHOSPHORUS [code = Ordered: [employer] Test 13:38:59 2777-1] 04/05/2021 of Medicine Future Scheduled 2021-04-05 PTH INTACT [code = Ordered: [employer] [employer] Test 13:38:59 2731-8] 04/05/2021 of Medicine Future Scheduled 2021-04-05 RANDOM URINE Ordered: [facility] Test 13:38:59 PROTEIN/CREATININE 04/05/2021 of Medici ne [code = 2890-2] Future Scheduled 2021-04-05 MICROALBUMIN/CREAT Ordered: [facility] Test 13:38:59 URINE RATIO [code = 04/05/2021 of Medic ine 9318-7] Future Scheduled 2021-04-05 VITAMIN D 25 HYDROXY Ordered: [facility] Test 13:38:59 [code = 1989-3] 04/05/2021 of Medicine Future Scheduled 2021-04-05 ANTI NEUTROPHIL Ordered: [facility] Test 13:38:59 CYTOPLASMIC ANTIBODY 04/05/2021 of Medi cine [code = 64017] Future Scheduled 2021-04-05 Screening for [facility] Test 13:19:08 malignant neoplasm of Medici ne of colon (procedure) [code = 489358801] Future Scheduled 2021-04-05 TETANUS SHOT (ADULT) [facility] Test 13:19:08 [code = TETANUS SHOT of Medi cine (ADULT)] Future Scheduled 2021-04-05 BMI FOLLOW UP PLAN [facility] Test 13:19:08 [code = BMI FOLLOW of Medici ne UP PLAN] Future Scheduled 2021-04-05 ZOSTER VACCINE (1 of [facility] Test 13:19:08 2) [code = ZOSTER of Medicin e VACCINE (1 of 2)] Future Scheduled 2021-04-05 MEDICARE AWV [facility] Test 13:19:08 (Initial) [code = of Medicin e MEDICARE AWV (Initial)] Future Scheduled 2021-04-05 Abdominal aortic [facility] [employer] Test 13:19:08 aneurysm screening of Medici ne (procedure) [code = 654614737] Future Scheduled 2021-04-05 FALL SCREEN [code = [facility] Test 13:19:08 FALL SCREEN] of Medicine Future Scheduled 2021-04-05 PNEUMOVAX >=65 [facility] Test 13:19:08 (PPSV23) [code = of Medicine PNEUMOVAX >=65 (PPSV23)] Future Scheduled 2021-04-05 FLU VACCINE > 6 [facility] Test 13:19:08 MONTHS [code = FLU of Medici ne VACCINE > 6 MONTHS] Future Scheduled 2021-04-05 Screening for [facility] Test 13:19:08 malignant neoplasm of Medici ne of colon (procedure) [code = 517212771] Future Scheduled 2021-04-05 TETANUS SHOT (ADULT) [facility] Test 13:19:08 [code = TETANUS SHOT of Medi cine (ADULT)] Future Scheduled 2021-04-05 BMI FOLLOW UP PLAN [facility] Test 13:19:08 [code = BMI FOLLOW of Medici ne UP PLAN] Future Scheduled 2021-04-05 ZOSTER VACCINE (1 of [facility] Test 13:19:08 2) [code = ZOSTER of Medicin e VACCINE (1 of 2)] Future Scheduled 2021-04-05 MEDICARE AWV [facility] Test 13:19:08 (Initial) [code = of Medicin e MEDICARE AWV (Initial)] Future Scheduled 2021-04-05 Abdominal aortic [facility] Test 13:19:08 aneurysm screening of Medici ne (procedure) [code = 375124461] Future Scheduled 2021-04-05 FALL SCREEN [code = [facility] Test 13:19:08 FALL SCREEN] of Medicine Future Scheduled 2021-04-05 PNEUMOVAX >=65 [facility] Test 13:19:08 (PPSV23) [code = of Medicine PNEUMOVAX >=65 (PPSV23)] Future Scheduled 2021-04-05 FLU VACCINE > 6 [facility] Test 13:19:08 MONTHS [code = [...] Diagnostic Test 2020-05-19 PSA TOTAL(URO DEPT) Expected: [facility] Pending 00:00:00 [code = 2857-1] 05/19/2020 [...] C enter of colon (procedure) [code = 508879871] Future Scheduled [address] [facility] Test 00:00:00 malignant neoplasm Medical C enter of colon (procedure) [code = 788855003] Future Scheduled [address] [facility] Test 00:00:00 malignant neoplasm Medical C enter of colon (procedure) [code = 464107344] Future Scheduled [address] [facility] [facility] Test 00:00:00 malignant neoplasm Medical C enter of colon (procedure) [code = 932367991] Future Scheduled 1950 Sigmoidoscopy [code [facility] Test 00:00:00 = Sigmoidoscopy] Medical [place] Future Scheduled [address] [facility] Test 00:00:00 malignant neoplasm Medical C enter of colon (procedure) [code = 648517395] Future Scheduled [address] [facility] Test 00:00:00 malignant neoplasm Medical C enter of colon (procedure) [code = 777595853] Future Scheduled [address] [facility] Test 00:00:00 (combo) [code = CT Medical C enter Colonography (combo)] Future Scheduled [address] [facility] Test 00:00:00 malignant neoplasm Medical C enter of colon (procedure) [code = 854828816] Future Scheduled [address] [facility] Test 00:00:00 malignant neoplasm Medical C enter of colon (procedure) [code = 386358650] Future Scheduled [address] [facility] Test 00:00:00 malignant neoplasm Medical C enter of colon (procedure) [code = 854726977] Future Scheduled [address] [facility] 00:00:00 malignant neoplasm Medical C enter of colon (procedure) [code = 940997992] Future Scheduled 1950 Sigmoidoscopy [code [facility] Test 00:00:00 = Sigmoidoscopy] Medical [place] Future Scheduled [address] [facility] Test 00:00:00 malignant neoplasm Medical C enter of colon (procedure) [code = 710557311] Future Scheduled [address] [facility] 00:00:00 malignant neoplasm Medical C enter of colon (procedure) [code = 118543834] Future Scheduled [address] [facility] 00:00:00 (combo) [code = CT Medical C enter Colonography (combo)] Future Scheduled [address] [facility] Test 00:00:00 malignant neoplasm Medical C enter of colon (procedure) [code = 642460831] Future Scheduled [address] [facility] 00:00:00 malignant neoplasm Medical C enter of colon (procedure) [code = 062421417] Future Scheduled [address] [facility] 00:00:00 malignant neoplasm Medical C enter of colon (procedure) [code = 905002136] Future Scheduled [address] [facility] 00:00:00 malignant neoplasm Medical C enter of colon (procedure) [code = 537419197] Future Scheduled 1950 Sigmoidoscopy [code [facility] Test 00:00:00 = Sigmoidoscopy] Medical [place] [facility] Future Scheduled 1952 Sigmoidoscopy [code [facility] Test 00:00:00 = Sigmoidoscopy] Medical [facility] ter Future Scheduled [address] [facility] 00:00:00 (combo) [code = CT Medical C enter Colonography (combo)] Future Scheduled [address] [facility] Test 00:00:00 malignant neoplasm Medical C enter of colon (procedure) [code = 096210674] Future Scheduled [address] [facility] Test 00:00:00 malignant neoplasm Medical C enter of colon (procedure) [code = 056965136] Future Scheduled [address] [facility] Test 00:00:00 malignant neoplasm Medical C enter of colon (procedure) [code = 776449920] Future Scheduled [address] [facility] Test 00:00:00 malignant neoplasm Medical C enter of colon (procedure) [code = 702503012] Future Scheduled 1950 Sigmoidoscopy [code [facility] Test 00:00:00 = Sigmoidoscopy] Medical [facility] ter Future Scheduled [address] [facility] 00:00:00 (combo) [code = CT Medical C enter Colonography (combo)] Future Scheduled [address] [facility] Test 00:00:00 malignant neoplasm Medical C enter of colon (procedure) [code = 629290776] Future Scheduled [address] [facility] 00:00:00 malignant neoplasm Medical C enter of colon (procedure) [code = 518646424] Future Scheduled [address] [facility] 00:00:00 malignant neoplasm Medical C enter of colon (procedure) [code = 977635746] Future Scheduled [address] [facility] 00:00:00 malignant neoplasm Medical C enter of colon (procedure) [code = 827346588] Future Scheduled 1950 Sigmoidoscopy [code [facility] Test 00:00:00 = Sigmoidoscopy] Medical [facility] ter Future Scheduled [address] [facility] 00:00:00 (combo) [code = CT Medical C enter Colonography (combo)] Future Scheduled [address] [facility] Test 00:00:00 malignant neoplasm Medical C enter of colon (procedure) [code = 378178776] Future Scheduled [address] [facility] Test 00:00:00 malignant neoplasm Medical C enter of colon (procedure) [code = 014283494] Future Scheduled [address] [facility] Test 00:00:00 malignant neoplasm Medical C enter of colon (procedure) [code = 548778974] Future Scheduled [address] [facility] Test 00:00:00 malignant neoplasm Medical C enter of colon (procedure) [code = 765635899] Future Scheduled 1950 Sigmoidoscopy [code [facility] Test 00:00:00 = Sigmoidoscopy] Medical [facility] ter Future Scheduled [address] [facility] 00:00:00 (combo) [code = CT Medical C enter Colonography (combo)] Future Scheduled [address] [facility] Test 00:00:00 malignant neoplasm Medical C enter of colon (procedure) [code = 536178081] Future Scheduled [address] [facility] Test 00:00:00 malignant neoplasm Medical C enter of colon (procedure) [code = 459818646] Future Scheduled [address] [facility] Test 00:00:00 malignant neoplasm Medical C enter of colon (procedure) [code = 242298073] Future Scheduled [address] [facility] Test 00:00:00 malignant neoplasm Medical C enter of colon (procedure) [code = 799352652] Future Scheduled 1952 Sigmoidoscopy [code [facility] 00:00:00 = Sigmoidoscopy] [facility] [place] [facility] Future Scheduled [address] [facility] 00:00:00 (combo) [code = CT Medical C enter Colonography (combo)] Future Scheduled [address] [facility] Test 00:00:00 malignant neoplasm Medical C enter of colon (procedure) [code = 367614103] Future Scheduled [address] [facility] 00:00:00 malignant neoplasm Medical C enter of colon (procedure) [code = 184364328] Future Scheduled [address] [facility] Test 00:00:00 malignant neoplasm Medical C enter of colon (procedure) [code = 498665959] Future Scheduled [address] [facility] Test 00:00:00 malignant neoplasm Medical C enter of colon (procedure) [code = 146980836] Future Scheduled 1952 Sigmoidoscopy [code [facility] Test 00:00:00 = Sigmoidoscopy] Medical [place] [facility] Future Scheduled COLON CANCER [facility] [employer] Test SCREENING: of Medicine COLONOSCOPY [code = COLON CANCER SCREENING: COLONOSCOPY] Future Scheduled TETANUS SHOT (ADULT) [employer] Test [code = TETANUS SHOT of Medi cine (ADULT)] Future Scheduled BMI FOLLOW UP PLAN [employer] Test [code = BMI FOLLOW of Medici ne UP PLAN] Future Scheduled ZOSTER VACCINE (1 of [employer] Test 2) [code = ZOSTER of Medicin e VACCINE (1 of 2)] Future Scheduled MEDICARE AWV [facility] [employer] Test (Initial) [code = of Medicin e MEDICARE AWV (Initial)] Future Scheduled AAA Screen [code = [employer] [facility] AAA Screen] of Medicine Future Scheduled FALL SCREEN [code = [employer] [facility] FALL SCREEN] of Medicine Future Scheduled PNEUMOVAX >=65 [facility] [employer] Test (PPSV23) [code = of Medicine PNEUMOVAX >=65 (PPSV23)] Future Scheduled FLU VACCINE > 6 [facility] C [facility]lege Test MONTHS [code = FLU of Medici ne VACCINE > 6 MONTHS] Future Scheduled URINALYSIS W REFLEX Ordered: [employer] [facility] MICRO [code = NOCPT] 10/07/2020 of Medi cine Future Scheduled Screening for [facility]ge Test malignant neoplasm of Medici ne of colon (procedure) [code = 810187115] Future Scheduled TETANUS SHOT (ADULT) [employer] Test [code = TETANUS SHOT of Medi cine (ADULT)] Future Scheduled BMI FOLLOW UP PLAN [employer] Test [code = BMI FOLLOW of Medici ne UP PLAN] Future Scheduled ZOSTER VACCINE (1 of [employer] Test 2) [code = ZOSTER of Medicin e VACCINE (1 of 2)] Future Scheduled MEDICARE AWV [facility] [employer] Test (Initial) [code = of Medicin e MEDICARE AWV (Initial)] Future Scheduled Abdominal aortic [facility] Test aneurysm screening of Medici ne (procedure) [code = 896754477] Future Scheduled FALL SCREEN [code = [employer] FALL SCREEN] of Medicine Future Scheduled PNEUMOVAX >=65 [facility] [employer] Test (PPSV23) [code = of Medicine PNEUMOVAX >=65 (PPSV23)] Future Scheduled FLU VACCINE > 6 [facility] C [facility]lege Test MONTHS [code = FLU of Medici ne VACCINE > 6 MONTHS] Future Scheduled RANDOM URINE Ordered: [facility] ege Test PROTEIN/CREATININE 04/05/2020 of Medici ne [code = 2890-2] Future Scheduled URINALYSIS AUTO Ordered: [facility] ollege Test W/SCOPE [code = 04/05/2020 of Medicine 54388-0] Future Scheduled COLON CANCER [facility] [employer] Test SCREENING: of Medicine COLONOSCOPY [code = COLON CANCER SCREENING: COLONOSCOPY] Future Scheduled TETANUS SHOT (ADULT) [employer] Test [code = TETANUS SHOT of Medi cine (ADULT)] Future Scheduled ZOSTER VACCINE (1 of [employer] Test 2) [code = ZOSTER of Medicin e VACCINE (1 of 2)] Future Scheduled MEDICARE AWV [facility] [employer] Test (Initial) [code = of Medicin e MEDICARE AWV (Initial)] Future Scheduled AAA Screen [code = [employer] [facility] AAA Screen] of Medicine Future Scheduled FALL SCREEN [code = [employer] [facility] FALL SCREEN] of Medicine Future Scheduled PNEUMOVAX >=65 [facility] Test (PPSV23) [code = of Medicine PNEUMOVAX >=65 (PPSV23)] Future Scheduled FLU VACCINE > 6 [facility] C [facility]lege Test MONTHS [code = FLU of Medici ne VACCINE > 6 MONTHS] Future Scheduled MRI ABDOMEN WO 1 Occurrences [facility] C [facility]lege Test CONTRAST [code = starting of Medicine 53211-1] 05/05/2020 until 11/28/2020 Future Scheduled XR CHEST PA AND 1 Occurrences [facility] [employer] Test LATERAL [code = starting of Medicine 43436-4] 05/05/2020 until 11/28/2020 Encounters Start End Encounter Admission Attending Care Care Encounter Source Date/Time Date/Time Type Type Clinicians Facility Department ID 2022-07-24 2022-07-24 Office LILLIANA MCCULLOUGH [id number] [facility] 14:23:11 19:52:16 Visit SAMCAROL AMBULATOR 350.1.13.21 College Y 0.2.7.2.686 of [id number] Medi [facility] 335 e 2021-08-08 2021-08-08 Office LILLIANA Mccullough 1.2.840.114 [id number] [facility] 13:40:00 14:52:39 Visit Aimee AMBULATOR 350.1.13.21 College Y 0.2.7.2.686 of [id number] Medi [facility] 335 e 2021-04-05 2021-04-05 Office LILLIANA Mccullough 1.2.840.114 [id number] [facility] 13:14:21 13:46:44 Visit Aimee AMBULATOR 350.1.13.21 College Y 0.2.7.2.686 of [id number] [facility] refugio 335 e 2020-10-07 2020-10-07 Office LILLIANA Larkin 1.2.840.114 [id number] [facility] 14:37:10 16:35:39 Visit Demetrius Kohler AMBULATOR 350.1.13.21 College Y 0.2.7.2.686 of [id number] [facility] refugio 300 e 2020-05-25 2020-05-25 Outpatient HERMELINDA LRAKIN [id number] [facility] 00:00:00 00:00:00 DEMETRIUS 2020-05-25 2020-05-25 Outpatient CHAYA SLEJanell SLEJanell [id number] [facility] 00:00:00 00:00:00 DEMETRIUS 2020-05-05 2020-05-05 Office LILLIANA Larkin 1.2.840.114 [id number] [facility] 08:40:26 09:26:13 Visit Demetrius Kohler AMBULATOR 350.1.13.21 College Y 0.2.7.2.686 of [id number] [facility] refugio 300 e 2020-04-05 2020-04-05 Office LILLIANA Mccullough 1.2.840.114 [id number] [facility] 12:38:08 16:49:05 Visit Aimee AMBULATOR 350.1.13.21 College Y 0.2.7.2.686 [id number] [facility] 335 e 2020-03-02 2020-03-02 Outpatient [facility] SLE [id number] SLE 00:00:00 00:00:00 Results Test Description Test Time Test Comments Results Result Comments Source POCT URINALYSIS DIPSTICK 2020-10-07 00:00:00 Test Item Value Reference Range Interpretation Comme nts COLOR UA (test code = 5778-6) Yellow YELLOW/STRAW CLARITY UA (test code = 98185-2) Clear CLEAR GLUCOSE UA (test code = 5792-7) Negative NEGATIVE BILIRUBIN UA (test code = 5770-3) Negative NEGATIVE KETONES UA (test code = 29212-9) Negative NEGATIVE SPECIFIC GRAVITY UA (test code [...] NEGATIVE REDUCING SUBSTANCES URINE (test code = 48534-8) [facility] [id number] 16:51:00 Unlisted Reason for Exam - Click Yes and Enter Reason Below->YesUnlisted Reason for Exam->[facility] 1950 Sex: MFINAL [...] MDReport Verified Date/Time: 05/25/2020 16:51:08 Reading Location: [address] Transitional Reading Room RAD, CHEST, 2 [id number] 10:10:00Reason for Exam:- >[facility] 1950 Sex: MFINAL [...] MDReport Verified Date/Time: 05/25/2020 10:10:41 Reading Location: [facility] Reading Room [address] [place] [address] POCT URINALYSIS DIPSTICK 2020-05-05 00:00:00 Test Item Value Reference Range Interpretation Comments COLOR UA (test code = 5778-6) [place] YELLOW/STRAW CLARITY UA (test code = 95995-5) Clear CLEAR GLUCOSE UA (test code = 5792-7) Negative NEGATIVE BILIRUBIN UA (test code = 5770-3) Negative NEGATIVE KETONES UA (test code = 44139-1) Negative NEGATIVE SPECIFIC GRAVITY UA (test code [...] NEGATIVE REDUCING SUBSTANCES URINE (test code = 64086-2) [facility] [id number] 09:38:00Surgical Pathology Report Case: [id number] Authorizing Provider: Demetrius Larkin MD Collected: 10/09/2017 7023 Ordering Location: [facility] PERIOPERATIVE Received: 10/10/2017 0810 SERVICES Pathologist: [...] SYNOPTIC REPORT Signing Pathologist Direct Phone Line: [phone] signed by Joyce Sauceda MD on 10/16/2017 [...] (tw, can include).This patient's previous biopsy from [facility], from 03/02/2017 ([id number]) shows a core biopsy with features similar [...] Additional Pathological Findings: Cyst(s): Simple cortical cyst 01480 X 2, 8834 2, 67477 x6Left renal massA. Retroperitoneal lymph node. B. [...] positive; AE1/AE3-positive; RICHARD and CK 7-focally positive; ND86-gfwpjyat CD10 equivocal, possibly focally positiveThe immunohistochemistry test was developed and its performance characteristics determined by [facility], Pathology Laboratory. It has not been cleared [...] perform high complexity clinical laboratory testing.BASIC METABOLIC [id number] 13:36:00 Test Item Value Reference Range Interpretation [...] PATIEN TS. CBC W/PLT COUNT & AUTO [id number] 12:44:00 Test Item Value Reference Range Interpretation [...] (BEAKER) (test code = 2801) BASIC METABOLIC [id number] 15:02:00 Test Item Value Reference Range Interpretation [...] FOR DIALYSIS PATIEN TS. [facility] [id number] 06:14:00 Test Item Value Reference Range Interpretation [...] S NOT APPLICABLE FOR DIALYSIS PATIEN TS. [id number] 06:03:00 Test Item Value Reference Range Interpretation Comments PHOSPHORUS (BEAKER) (test code = 2.7 mg/dL 2.3-4.7 604) [id number] 06:03:00 Test Item Value Reference Range Interpretation Comments MAGNESIUM (BEAKER) (test code = 2.1 mg/dL 1.6-2.6 627) CBC W/PLT COUNT & AUTO [id number] 05:16:00 Test Item Value Reference Range Interpretation [...] 20-55 (test code = 2590) BASIC METABOLIC [id number] 05:41:00 Test Item Value Reference Range Interpretation [...] S NOT APPLICABLE FOR DIALYSIS PATIEN TS. [id number] 05:36:00 Test Item Value Reference Range Interpretation Comments PHOSPHORUS (BEAKER) (test code = 2.8 mg/dL 2.3-4.7 604) [id number] 05:36:00 Test Item Value Reference Range Interpretation Comments MAGNESIUM (BEAKER) (test code = 2.2 mg/dL 1.6-2.6 627) PTH, [id number] 05:33:00 Test Item Value Reference Range Interpretation Comments PARATHYROID HORMONE INTACT 212.3 pg/mL 8.5-72.5 H (BEAKER) (test code = 577) CBC W/PLT COUNT & AUTO [id number] 05:02:00 Test Item Value Reference Range Interpretation [...] 0-1 PERCENT (BEAKER) (test code = 2801) [id number] 06:36:00 Test Item Value Reference Range Interpretation Comments PHOSPHORUS (BEAKER) (test code = 2.4 mg/dL 2.3-4.7 604) [id number] 06:36:00 Test Item Value Reference Range Interpretation Comments MAGNESIUM (BEAKER) (test code = 1.8 mg/dL 1.6-2.6 627) BASIC METABOLIC [id number] 06:36:00 Test Item Value Reference Range Interpretation [...] PATIEN TS. CBC W/PLT COUNT & AUTO [id number] 05:59:00 Test Item Value Reference Range Interpretation [...] 0-1 PERCENT (BEAKER) (test code = 2801) [id number] 19:38:00 Test Item Value Reference Range Interpretation Comments PHOSPHORUS (BEAKER) (test code = 2.8 mg/dL 2.3-4.7 604) [id number] 19:38:00 Test Item Value Reference Range Interpretation Comments MAGNESIUM (BEAKER) (test code = 1.7 mg/dL 1.6-2.6 627) BASIC METABOLIC [id number] 19:35:00 Test Item Value Reference Range Interpretation [...] APPLICABLE FOR DIALYSIS PATIEN TS. HEMOGLOBIN AND [id number] 19:07:00 Test Item Value Reference Range Interpretation Comments HEMOGLOBIN (BEAKER) (test code = 13.7 GM/DL 13.7-17.5 410) HEMATOCRIT (BEAKER) (test code = 40.5 % 40.1-51.0 411) URINE [id number] 13:12:00 Test Item Value Reference Range Interpretation Comments CULTURE (BEAKER) (test code = 1095) No growth BASIC METABOLIC [id number] 17:19:00 Test Item Value Reference Range Interpretation [...] APPLICABLE FOR DIALYSIS PATIEN TS. URINALYSIS W/ [id number] 17:15:00 Test Item Value Reference Range Interpretation [...] 1574) Rare SOURCE(BEAKER) (test code = 2795) [id number] 17:07:00 Test Item Value Reference Range Interpretation Comments PARTIAL THROMBOPLASTIN TIME 28.1 seconds 22.5-36.0 (BEAKER) (test code = 760) PROTHROMBIN [id number] 17:06:00 Test Item Value Reference Range Interpretation Comments PROTIME (BEAKER) (test code = 13.6 seconds 11.7-14.7 759) INR (BEAKER) (test code = 370) 1.0 <=5.9 RECOMMENDED COUMADIN/WARFARIN INR THERAPY RANGESSTANDARD DOSE: 2.0 - 3.0 Includes: PROPHYLAXIS for venous thrombosis, systemic embolization; TREATMENT for venous thrombosis and/or pulmonary embolus.HIGH RISK: Target INR is 2.5-3.5 for patients with mechanical heart valves.CBC W/PLT COUNT & AUTO [id number] 16:53:00 Test Item Value Reference Range Interpretation [...] PERCENT (BEAKER) (test code = 2801) TISSUE [id number] 11:47:00Surgical Pathology Report Case: [id number] Authorizing Provider: Farzad Jackson Collected: 03/02/2017 1029 MD Cinthia Ordering Location: [facility] Diagnostic Imaging Received: 03/02/2017 1140 [...] Intradepartmental consultation: Dr. Koko Whitney, Dr. Umu Manzanares/[id number], [id number], 87506 x2Left kidney [facility] is [facility] in fixative and designated [...] developed and its performance characteristics determined by [facility], Pathology Laboratory. It has not been [...] qualified to perform high complexity clinical laboratory testing.[id number] 08:19:00 Test Item Value Reference Range Interpretation [...] mechanical heart valves.CBC W/PLT COUNT & AUTO [id number] 08:14:00 Test Item Value Reference Range Interpretation [...]
[2022-09-06] MEDS ORDERED: NA CHLORIDE 0.9% 500 ML ONE (13:08)
--- NOTE | 2022-09-06 13:50 | RAD REPORT ---
EXAM DESCRIPTION: RAD - Shoulder Left 2 View - 09/06/2022 1:19 pm CLINICAL HISTORY: Pain. Fall COMPARISON: None. TECHNIQUE: Internal and external rotation views of the left shoulder were obtained. FINDINGS: There is no fracture or dislocation. AC joint is normal in appearance. No acute or suspici ous findings. IMPRESSION: No acute osseous abnormality of the left shoulder.
--- NOTE | 2022-09-06 14:02 | RAD REPORT ---
EXAM DESCRIPTION: CT - Head C Spine Cap Wo Con - 09/06/2022 1:19 pm CLINICAL HISTORY: TRAUMA COMPARISON: Abdomen Pelvis Wo Contrast dated 09/03/2022; Abdomen Acute Series dated 09/02/2022; Head Brain Wo Cont dated 08/04/2022 TECHNIQUE: Head and cervical spine CT images were obtained without IV contrast. Chest, abdomen, and pelvis CT images were obtained following intravenous administration of 90 mL Isovue-300. Multiplanar reformats were generated and reviewed. All CT scans are performed using dose optimization technique as appropriate and may include automated exposure control or mA/KV adjustment according to patient size. FINDINGS: CT HEAD: No intracranial hemorrhage, mass effect, or edema. No evidence of acute territorial infarct. Bilatera l inferior cerebellar regions of encephalomalacia, larger on the right, stable, and suggestive of seq uelae of remote ischemia. Mild diffuse parenchymal volume loss Nonspecific Confluent periventricular and deep white matter hypodensities, with a stable pattern, most suggestive of chronic small vessel i schemic changes. No midline shift or abnormal fluid collection. The ventricles are normal in caliber and configuration for age. Basal cisterns are patent. Mucous retention cyst within the right maxillar y sinus. Partial opacification of the right mastoid air cells. No acute skull fracture. CT CERVICAL SPINE: No acute cervical spine fracture or subluxation. Vertebral body heights are well maintained. Straight ening of normal cervical lordosis which could be positional or secondary to muscle spasm. Mild degene rative changes, with moderate disc height loss at C5-6. No hyperattenuating canal hematoma. Preverteb ral and paraspinous soft tissues are unremarkable. CT CHEST: No pneumothorax, pulmonary contusion or pleural fluid collection. Vascular stent seen along the proxi mal right subclavian artery. Nonspecific dependent pleural thickening on the left, with streaky opaci ties throughout the left lower lobe with some volume loss, findings which may relate to atelectasis. No mediastinal hematoma and the aorta and pulmonary arteries are unremarkable. No chest will mass or abnormal axillary finding. No displaced rib fracture or other significant bony finding. CT ABDOMEN/ PELVIS: Beam hardening artifact limits evaluation in the mid abdomen. Status post left nephrectomy. Moderate atherosclerotic calcifications and tortuosity along the abdominal aorta. No evidence of traumatic inj ury to solid abdominal viscera. Gallbladder and biliary tree are unremarkable. Suggestion of mild vol ume of layering sludge. No bowel injury or significant finding. Moderate fluid accumulation in the re ctal vault. No free air, free fluid or abnormal fat stranding. No urinary bladder abnormality. No significant bony finding. 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 IMPRESSION: No acute traumatic CT Head for cervical spine finding. Intracranially, sequelae of remot e ischemia in the posterior fossa, as well as advanced white matter hypodensities suggestive of seque lae of chronic small vessel ischemic changes, stable. No acute traumatic CT Chest finding. Streaky opacities in the left lower lobe with some pleural thick ening and volume loss. Findings suggest atelectatic changes. No acute traumatic CT Abdomen and Pelvis findings. Status post left nephrectomy. Moderate stool burde n in the rectal bulb.
--- NOTE | 2022-09-06 14:24 | EDPHYS ---
Physician Documentation [facility] Name: Aravind Low Age: 72 yrs Sex: Male : 1950 Arrival Date: 09/06/2022 Time: 12:36 Bed DIS13 Private MD: ED Physician Lanre Schroeder HPI: 09/06 14:14 This 72 yrs old Black Male presents to ER via EMS with complaints of Fall Injury. jami 14:14 Details of fall: The patient fell from a height, off furniture, approximately 2 feet. jami Onset: The symptoms/episode began/occurred just prior to arrival. Associated injuries: The patient sustained right arm, anterior aspect of left shoulder and posterior aspect of left shoulder, contusion, decreased range of motion. Severity of symptoms: At their worst the symptoms were mild, in the emergency department the symptoms are unchanged. The patient has experienced similar episodes in the past, multiple times. Historical: - Allergies: 12:38 No Known Allergies; eh3 - Home Meds: 12:38 amlodipine oral [Active]; aspirin 81 mg Oral cap 1 cap once daily [Active]; eh3 atorvastatin Oral [Active]; Clonidine Oral [Active]; Hydralazine Oral [Active]; Metoprolol Tartrate Oral [Active]; olanzapine Oral [Active]; clopidogrel oral [Active]; Sodium Bicarbonate Oral [Active]; - PMHx: 12:38 CVA; Dementia; ESRD; Gout; Hypertension; kidney cancer; eh3 - Immunization history:: Adult Immunizations up to date. - Social history:: Smoking status: Patient denies any tobacco usage or history of. Patient/guardian denies using alcohol. ROS: 14:16 Constitutional: Negative for fever, chills, and weight loss, Eyes: Negative for injury, jami pain, redness, and discharge, ENT: Negative for injury, pain, and discharge, Neck: Negative for injury, pain, and swelling, Cardiovascular: Negative for chest pain, palpitations, and edema, Respiratory: Negative for shortness of breath, cough, wheezing, and pleuritic chest pain, Abdomen/GI: Negative for abdominal pain, nausea, vomiting, diarrhea, and constipation, Back: Negative for injury and pain, : Negative for injury, bleeding, discharge, and swelling, Skin: Negative for injury, rash, and discoloration, Neuro: Negative for headache, weakness, numbness, tingling, and seizure, Psych: Negative for depression, anxiety, suicide ideation, homicidal ideation, and hallucinations, Allergy/Immunology: Negative for hives, rash, and allergies, Endocrine: Negative for neck swelling, polydipsia, polyuria, polyphagia, and marked weight changes, Hematologic/Lymphatic: Negative for swollen nodes, abnormal bleeding, and unusual bruising. 14:16 MS/extremity: Positive for decreased range of motion, pain, of the right arm, anterior aspect of left shoulder and posterior aspect of left shoulder. Exam: 14:16 Constitutional: This is a well developed, well nourished patient who is awake, alert, jami and in no acute distress. Head/Face: Normocephalic, atraumatic. Eyes: Pupils equal round and reactive to light, extra-ocular motions intact. Lids and lashes normal. Conjunctiva and sclera are non-icteric and not injected. Cornea within normal limits. Periorbital areas with no swelling, redness, or edema. ENT: Nares patent. No nasal discharge, no septal abnormalities noted. Tympanic membranes are normal and external auditory canals are clear. Oropharynx with no redness, swelling, or masses, exudates, or evidence of obstruction, uvula midline. Mucous membranes moist. Neck: Trachea midline, no thyromegaly or masses palpated, and no cervical lymphadenopathy. Supple, full range of motion without nuchal rigidity, or vertebral point tenderness. No Meningismus. Chest/axilla: Normal chest wall appearance and motion. Nontender with no deformity. No lesions are appreciated. Cardiovascular: Regular rate and rhythm with a normal S1 and S2. No gallops, murmurs, or rubs. Normal PMI, no JVD. No pulse deficits. Respiratory: Lungs have equal breath sounds bilaterally, clear to auscultation and percussion. No rales, rhonchi or wheezes noted. No increased work of breathing, no retractions or nasal flaring. Abdomen/GI: Soft, non-tender, with normal bowel sounds. No distension or tympany. No guarding or rebound. No evidence of tenderness throughout. Back: No spinal tenderness. No costovertebral tenderness. Full range of motion. Male : Normal genitalia with no discharge or lesions. Skin: Warm, dry with normal turgor. Normal color with no rashes, no lesions, and no evidence of cellulitis. Neuro: Awake and alert, GCS 15, oriented to person, place, time, and situation. Cranial nerves II-XII grossly intact. Motor strength 5/5 in all extremities. Sensory grossly intact. Cerebellar exam normal. Normal gait. Psych: Awake, alert, with orientation to person, place and time. Behavior, mood, and affect are within normal limits. 14:16 Musculoskeletal/extremity: Extremities: ROM: intact in all extremities, full active range of motion, full passive range of motion, limited active range of motion due to pain, limited passive range of motion due to pain, Circulation is intact in all extremities. Sensation intact. Compartment Syndrome exam of affected extremity: no pain, DVT Exam: no swelling, negative Homans' sign noted on exam, no appreciated bluish discoloration, no erythema, no increased warmth, pain, tenderness. Vital Signs: 12:36 BP 129 / 68; Pulse 62; Resp 16; Temp 98.2(O); Pulse Ox 100% on R/A; Weight 72.57 kg; eh3 Height 5 ft. 9 in. (175.26 cm); Pain 8/10; 13:45 BP 145 / 78; Pulse 59; Resp 16; Pulse Ox 100% on R/A; eh3 12:36 Body Mass Index 23.63 (72.57 kg, 175.26 cm) 3 MDM: 12:47 Patient medically screened. jami 14:18 Differential diagnosis: Anterior dislocation with fracture, Anterior dislocation jami without fracture, Posterior dislocation with fracture, Posterior dislocation without fracture, humeral head fracture, glenoid fracture, DJD, tendonitis. Differential diagnosis: abrasion, closed head injury, contusion, fracture, multiple trauma, sprain, strain. Data reviewed: vital signs, nurses notes, lab test result(s), radiologic studies, CT scan, plain films. Consideration of Admission/Observation Escalation of care including admission/observation considered. I considered the following discharge prescriptions or medication management in the emergency department Medications were administered in the Emergency Department. See MAR. Independent interpretation of the following test(s) in the Emergency Department X-Ray: My interpretation is NO FX ON PLAN FILMS. Test considered but Not performed: MRI: NO MRI BRAIN. Care significantly affected by the following chronic conditions: Hypertension, Cancer, CVA, DEMENTIA, GOUT, ESRD . 09/06 12:57 Order name: CBC with Diff [facility] 09/06 12:57 Order name: Comprehensive Metabolic Panel [facility] 09/06 12:57 Order name: Shoulder Left (2 View) XRAY [facility] 09/06 12:57 Order name: CT Traumagram (Head C Spine CAP wo con) [facility] 09/06 14:52 Order name: CBC with Automated Diff; Complete Time: 15:07 EDHI 09/06 15:09 Order name: Comprehensive Metabolic Panel; Complete Time: 15:13 EDMS 09/06 12:57 Order name: Urine Dipstick-Ancillary (obtain specimen) [facility] 09/06 13:50 Order name: RAD; Complete Time: 14:11 EDMS 09/06 14:03 Order name: CT; Complete Time: 14:11 EDHI 09/06 14:13 Order name: Shoulder Right (2 View) XRAY [facility] 09/06 15:41 Order name: RAD EDMS Administered Medications: 14:22 Not Given (Duplicate Order): NS 0.9% 500 ml IV at bolus once jami Disposition Summary: 09/06/22 14:24 Discharge Ordered Location: Home jami Problem: new jami Symptoms: have improved jami Condition: Stable jami Diagnosis - Fall (on) (from) other stairs and steps - 2 FEET , BED jami - Contusion of left shoulder jami - Contusion of right shoulder jami - Dementia in other diseases classified elsewhere without behavioral disturbance jami Followup: jami - With: Private Physician - When: 2 - 3 days - Reason: Recheck today's complaints, Continuance of care, Re-evaluation by your physician Followup: jami - With: Wilfrid Bell MD - When: 2 - 3 days - Reason: Recheck today's complaints, Re-evaluation by your physician Discharge Instructions: - Discharge Summary Sheet jami - Constipation, Adult jami - Dementia jami - Fall Prevention in the Home, Adult jami - Shoulder Pain jami - Constipation, Adult, [id number] jami - Shoulder Pain, [id number] jami - Dementia, [id number] jami Forms: - Medication Reconciliation Form jami - Thank You Letter jami - Antibiotic Education jami - Prescription Opioid Use jami Signatures: Dispatcher [employer] EDLanre Henning MD MD cha Hall, Erin, RN RN eh3
--- NOTE | 2022-09-06 14:24 | ER ---
Nurse's Notes [facility] Name: Aravind Low Age: 72 yrs Sex: Male : 1950 Arrival Date: 09/06/2022 Time: 12:36 Bed DIS13 Private MD: Diagnosis: Fall (on) (from) other stairs and steps-2 FEET , BED;Contusion of left shoulder;Contusion of right shoulder;Dementia in other diseases classified elsewhere without behavioral disturbance Presentation: 09/06 12:36 Chief complaint: EMS states: toned out for fall out of bed yesterday morning, eh3 complaining of left shoulder pain. Coronavirus screen: Vaccine status: Patient reports being unvaccinated. Ebola Screen: No symptoms or risks identified at this time. Initial Sepsis Screen: Does the patient meet any 2 criteria? No. Patient's initial sepsis screen is negative. Does the patient have a suspected source of infection? No. Patient's initial sepsis screen is negative. Risk Assessment: Do you want to hurt yourself or someone else? Patient reports no desire to harm self or others. Onset of symptoms was September 05, 2022. 12:36 Method Of Arrival: EMS: [facility] 3 12:36 Acuity: ANTONIO 3 eh3 Triage Assessment: 12:38 General: Appears in no apparent distress. uncomfortable, Behavior is calm, cooperative, eh3 appropriate for age. Pain: Complains of pain in anterior aspect of left shoulder and posterior aspect of left shoulder. EENT: No signs and/or symptoms were reported regarding the EENT system. Neuro: Level of Consciousness is awake, alert, obeys commands, Oriented to person, place, time, situation. Cardiovascular: Capillary refill < 3 seconds Patient's skin is warm and dry. Respiratory: Airway is patent Respiratory effort is even, unlabored, Respiratory pattern is regular, symmetrical. GI: No signs and/or symptoms were reported involving the gastrointestinal system. Abdomen is round distended. : No signs and/or symptoms were reported regarding the genitourinary system. Derm: No signs and/or symptoms reported regarding the dermatologic system. Skin is pink, warm \T\ dry. Musculoskeletal: Parent/caregiver report the patient having weakness in right leg and left leg since he left the hospital at the end of July 2022. Historical: - Allergies: 12:38 No Known Allergies; eh3 - Home Meds: 12:38 amlodipine oral [Active]; aspirin 81 mg Oral cap 1 cap once daily [Active]; eh3 atorvastatin Oral [Active]; Clonidine Oral [Active]; Hydralazine Oral [Active]; Metoprolol Tartrate Oral [Active]; olanzapine Oral [Active]; clopidogrel oral [Active]; Sodium Bicarbonate Oral [Active]; - PMHx: 12:38 CVA; Dementia; ESRD; Gout; Hypertension; kidney cancer; eh3 - Immunization history:: Adult Immunizations up to date. - Social history:: Smoking status: Patient denies any tobacco usage or history of. Patient/guardian denies using alcohol. Screenin:44 [facility] ED Fall Risk Assessment (Adult) History of falling in the last 3 months, 3 including since admission Yes- fall prone (multiple falls) (3 pts) Confusion or Disorientation Yes (5 pts) Intoxicated or Sedated No (0 pts) Impaired Gait Yes (1 pt) Mobility Assist Device Used No (0 pt) Altered Elimination No (0 pt) Score/Fall Risk Level 3 or more points = High Risk Oriented to surroundings, Maintained a safe environment, Educated pt \T\ family on fall prevention, incl call for assistance when getting out of bed, Assessed \T\ reinforced patient's understanding of fall precautions, Provided non-skid footwear, Hourly rounding (assess needs \T\ fall precautionary measures) done, Utilized family, sitter, or virtual social work case manager as indicated. Abuse screen: Denies threats or abuse. Denies injuries from another. Nutritional screening: No deficits noted. Tuberculosis screening: No symptoms or risk factors identified. Assessment: 12:44 Reassessment: No changes from previously documented assessment. See triage assessment. eh3 13:45 Reassessment: Patient appears in no apparent distress at this time. Patient and/or eh3 family updated on plan of care and expected duration. Pain level reassessed. Patient is alert, oriented x 3, equal unlabored respirations, skin warm/dry/pink. 14:45 Reassessment: Patient appears in no apparent distress at this time. Patient and/or eh3 family updated on plan of care and expected duration. Pain level reassessed. Patient is alert, oriented x 3, equal unlabored respirations, skin warm/dry/pink. 16:22 Reassessment: Pt moved to nurses station in wheelchair while awaiting for to pick ss him up. Vital Signs: 12:36 BP 129 / 68; Pulse 62; Resp 16; Temp 98.2(O); Pulse Ox 100% on R/A; Weight 72.57 kg; 3 Height 5 ft. 9 in. (175.26 cm); Pain 8/10; 13:45 BP 145 / 78; Pulse 59; Resp 16; Pulse Ox 100% on R/A; 3 12:36 Body Mass Index 23.63 (72.57 kg, 175.26 cm) [facility] ED Course: 12:36 Patient arrived in ED. [facility] 12:38 Triage completed. [facility] 12:38 Arm band placed on. [facility] 12:44 Patient has correct armband on for positive identification. Bed in low position. Call [facility] light in reach. Side rails up X2. Client placed on continuous cardiac and pulse oximetry monitoring. NIBP monitoring applied. Door closed. Noise minimized. Warm blanket given. 12:47 Lanre Schroeder MD is Attending Physician. [facility] 13:02 Aneta Marley, RN is Primary Nurse. [facility] 13:45 Missed attempt(s): 22 gauge in right forearm. Bleeding controlled, band aid applied, [facility] catheter tip intact. 14:25 Wilfrid Bell MD is Referral Physician. [facility] 14:41 Comprehensive Metabolic Panel Sent. [facility] 14:41 CBC with Diff Sent. [facility] Administered Medications: 14:22 Not Given (Duplicate Order): NS 0.9% 500 ml IV at bolus once [facility] Medication: 16:22 VIS not applicable for this client. Outcome: 14:24 Discharge ordered by . [facility] 16:56 Patient left the ED. em1 Signatures: Lanre Schroeder MD MD cha Martinez, Eric em1 Nora Riggs, EVELINA HOYT Aneta Marley, EVELINA RN [facility]
[2022-09-06 14:51] LABS: Absolute Lymphocytes (CBC) 0.8 K/uL (0.7-4.9); Hematocrit 41.2 % (39.6-49.0); Lymphocytes % 16.3 % (15.3-44.8); MCV 87.4 fL (80-100); MPV 7.4 fL (7.6-11.3); RBC Red Blood Cell Count 4.72 M/uL (4.33-5.43)
[2022-09-06 15:09] LABS: Albumin 3.5 g/dL (3.4-5.0); Bilirubin Total 0.4 mg/dL (0.2-1.0); Potassium 4.8 mmol/L (3.5-5.1); Protein, Total 7.5 g/dL (6.4-8.2)
--- NOTE | 2022-09-06 15:40 | RAD REPORT ---
EXAM DESCRIPTION: Shoulder Right 2 View - 09/06/2022 2:53 pm CLINICAL HISTORY: Pain COMPARISON: None. TECHNIQUE: Internal and external rotation views of the right shoulder were obtained. FINDINGS: There is no fracture or dislocation. AC joint is normal in appearance. No acute or suspici ous findings. IMPRESSION: Negative two-view right shoulder examination.
[2022-09-06 18:01] VITALS: TEMP 98.2; O2SAT 100
[2022-09-06 18:02] VITALS: BP 145/78
== END 2022-09-06 16:56 | disposition home or self-care (01) ==
LOC: ER 12:36
DX: S40.012A Contusion of left shoulder, initial encounter (principal); S40.011A Contusion of right shoulder, initial encounter; W06.XXXA Fall from bed, initial encounter; F02.80 Dementia in other diseases classified elsewhere, unspecified severity, without behavioral disturbance, psychotic disturbance, mood disturbance, and anxiety; I12.0 Hypertensive chronic kidney disease with stage 5 chronic kidney disease or end stage renal disease; N18.6 End stage renal disease; Z86.73 Personal history of transient ischemic attack (TIA), and cerebral infarction without residual deficits; Z79.82 Long term (current) use of aspirin
CPT/HCPCS: 85025; 36415; 80053; 70450; 71250; 72125; 73030 ×2; J7040; 99283

== ENCOUNTER 2022-09-18 19:40 | Emergency (ER) | payer OTHER ==
--- OUTSIDE RECORDS SUMMARY | 2022-09-18 19:46 | XMS REPORT | Continuity of Care Document ---
:1950 Author Organization [facility] t Address [address] [place] [address] Care Team Providers Name Role Phone SHARPLESS Primary Care Physician Unavailable AIMEE MCCULLOUGH Attending Clinician Unavailable Aimee Mccullough MD Attending Clinician Demetrius Larkin MD Attending Clinician DEMETRIUS LARKIN Attending Clinician Unavailable FARZAD JACKSON Attending Clinician Unavailable DEMETRIUS LARKIN Admitting Clinician Unavailable FARZAD JACKSON Admitting Clinician Unavailable Payers Payer Name Policy Type Policy Number Effective Date Expiration Date S arielle MEDICARE PART A [id number] \\T\\ [id number] - MEDICARE INDEMNITY - [employer] [id number] MEDICARE A B [id number] 2017 00:00:00 Problems Condition Condition Condition Status Onset Resolution Last Treating Co mments Source Name Details Category Date Date Treatment Clinician Date Smoking Smoking Disease Recurre [facility] 1/2 pack a 1/2 pack a nce 5-20 Co llege day or day or 00:00: of less less 00 Medicin e Renal cell Renal cell Disease Active Overview : [facility] cancer, cancer, 3-27 [facility] left left 00:00: g of this of 00 note Medicin might be e different from the original. S/P L LAP RADICAL NEPHRECTO MY AT Pre-op Pre-op Disease Active [facility] Renal Renal Disease Active [facility] mass, left mass, left 3-27 [facility] k[facility] 00:00: Medical 00 [facility] Essential Essential Disease Active [facility] hypertensi hypertensi 2-08 Co llege on [...] d laterality laterality Kidney Kidney Disease Active [facility] Active Overview: [facility] (chronic (chronic [facility] kidney kidney g of this of disease) disease) note Medici n stage 4, stage 4, might be e GFR 15-29 GFR 15-29 different ml/min ml/min from the original. WITH HX OF HTN AND RCC Encephalop Encephalop Disease [facility] Allergies, Adverse Reactions, Alerts Allergy Allergy Status Severity Reaction(s) Onset Inactive Treating Comm ents Source Name Type Date Date Clinician NO KNOWN Allergy Active NEENA Turner [facility] Social History Social Habit Start Date Stop Date Quantity Comments Source History of tobacco Cigarette Smoker [facility] use of Medicine Tobacco Comment 2022-07-24 2022-07-24 20+ years [facility] Co [facility]lege 00:00:00 00:00:00 of Medicine Alcohol intake 2017-10-10 2017-10-10 [facility] (finding) Cigarettes smoked 2017-03-02 2017-03-[address] [facility] current (pack per 00:00:00 00:00:00 Medical Center day) - Reported Tobacco use and 2017-03-02 2017-03-[address] [facility] kes exposure 00:00:00 00:00:00 [facility] Sex Assigned At [address] [facility] kes 00:00:00 00:00:00 Medical Center Smoking Status Start Date Stop Date Source Smokes tobacco daily 2022-07-24 00:00:00 [facility] Medications Ordered Filled Start Stop Current Ordering Indication Dosage Frequency Signature Comments Components Source Medication Medication Date Date Medication? Clinician (SIG) Name Name amlodipine 2021-07 Yes TAKE 1 [facility] (NORVASC) 2-03 TABLET BY Colle ge 10 MG 00:00: MOUTH of tablet 00 EVERY DAY Medicin e clonidine Yes TAKE 1 [facility] (CATAPRESS) 1-25 TABLET BY Col lege 0.2 MG 00:00: MOUTH of tablet 00 TWICE A Medicin DAY e Tamsulosin Yes .4mg Take 0.4 [facility] 0.4 MG 1-25 mg by [employer] CAPS 00:00: mouth of 00 daily. Medicin e Tamsulosin 2020-07 Yes TAKE 1 [facility] HCl 0.4 MG 2-15 CAPSULE BY Col lege CAPS 00:00: MOUTH of 00 EVERY DAY Medicin e clonidine Yes TAKE 1 [facility] (CATAPRESS) 9-21 TABLET BY Col lege 0.2 [...] ION). Tamsulosin 2020- Yes .4mg Take 0.4 [facility] HCl 0-21 mg by [facility] (FLOMAX) 00:00: mouth of 0.4 MG CAPS 00 daily. Medici n e Tamsulosin 2020-1 Yes .4mg Take 0.4 [facility] 0-21 mg by [facility] (FLOMAX) 00:00: mouth of 0.4 MG CAPS 00 daily. Medici n e Tamsulosin 2020-1 Yes .4mg Take 0.4 [facility] 0-21 mg by [facility] (FLOMAX) 00:00: mouth of 0.4 MG CAPS 00 daily. Medici n e Tamsulosin 2020-1 Yes .4mg Take 0.4 [facility] HCl 0-21 mg by [facility] (FLOMAX) [...] clopidogrel 2020-0 Yes 75mg Take 1 Tab [facility] (PLAVIX) 75 7-16 by mouth [facility] MG Tablet 00:00: daily. of 00 Medicin e clopidogrel 2020-0 Yes 75mg Take 1 Tab [facility] (PLAVIX) 75 7-16 by mouth [facility] e[facility] MG Tablet 00:00: daily. of 00 Medicin e clopidogrel 2020-0 Yes 75mg Take 1 Tab [facility] (PLAVIX) 75 7-16 by mouth [facility] e[facility] MG Tablet 00:00: daily. of 00 Medicin e clopidogrel 2020-0 Yes 75mg Take 1 Tab [facility] (PLAVIX) 75 7-16 by mouth [facility] e[facility] MG Tablet 00:00: daily. of 00 Medicin e clopidogrel 2020-0 Yes 75mg Take 1 Tab [facility] (PLAVIX) 75 7-16 by mouth Ernestine ege [...] atorvastati 2020-0 Yes 40mg Take 1 Tab [facility] n (LIPITOR) 7-16 by mouth Ernestine ege 40 MG 00:00: daily. By of tablet 00 bedtime Medicin e clopidogrel 2020-0 Yes 75mg Take 1 Tab [facility] (PLAVIX) 75 01-28 by mouth Ernestine ege [...] :00 Medicin e cloNIDine 2017-0 Yes .3mg Q.[id number] Take 0.[address] [facility] HCl 4- [id number] mg by [facility] (CATAPRES) 03:27: 3D mouth [...] tablet 05 Center cloNIDine 2017-0 Yes .3mg Q.[id number] Take 0.[address] [facility] HCl 4-01 [id number] mg by [facility] (CATAPRES) 03:27: 3D mouth [...] tablet 05 Center cloNIDine 2017-0 Yes .3mg Q.[id number] Take 0.[address] [facility] HCl 4-01 [id number] mg by [facility] (CATAPRES) 03:27: 3D mouth 3 Medi jennifer 0.3 MG 05 (three) Center tablet times daily. furosemide 2018-0 Yes 40mg Take [address] (LASIX) 40 4-01 by mouth [facility] MG tablet 03:27: every Medical 05 other day. [facility] amLODIPine 2018-0 Yes 10mg QD Take [address] (NORVASC) 4-01 by mouth [facility] 10 MG 03:27: daily. Medical tablet 05 [facility] cloNIDine 2018-0 Yes .3mg Q.[id number] Take 0.[address] [facility] HCl 4-01 [id number] mg by [facility] (CATAPRES) 03:27: 3D mouth 3 Medi jennifer 0.3 MG 05 (three) Center tablet times daily. furosemide 2018-0 Yes 40mg Take [address] (LASIX) 40 4-01 by mouth [facility] MG tablet 03:27: every Medical 05 other day. [facility] amLODIPine 2018-0 Yes 10mg QD Take [address] (NORVASC) 4-01 by mouth [facility] 10 MG 03:27: daily. Medical tablet 05 [facility] cloNIDine 2018-0 Yes .3mg Q.[id number] Take 0.[address] [facility] HCl 4-01 [id number] mg by [facility] (CATAPRES) 03:27: 3D mouth 3 Medi jennifer 0.3 MG 05 (three) Center tablet times daily. furosemide 2018-0 Yes 40mg Take [address] (LASIX) 40 4-01 by mouth [facility] MG tablet 03:27: every Medical 05 other day. [facility] amLODIPine 2018-0 Yes 10mg QD Take [address] (NORVASC) 4-01 by mouth [facility] 10 MG 03:27: daily. Medical tablet 05 [facility] cloNIDine 2018-0 Yes .3mg Q.[id number] Take 0.[address] [facility] HCl 4-01 [id number] mg by [facility] (CATAPRES) 03:27: 3D mouth 3 Medi jennifer 0.3 MG 05 (three) Center tablet times daily. furosemide 2018-0 Yes 40mg Take [address] (LASIX) 40 4-01 by mouth [facility] MG tablet 03:27: every Medical 05 other day. [facility] amLODIPine 2018-0 Yes 10mg QD Take [address] (NORVASC) 4-01 by mouth [facility] 10 MG 03:27: daily. Medical tablet 05 [facility] cloNIDine 2018-0 Yes .3mg Q.[id number] Take 0.[address] [facility] HCl 4-01 [id number] mg by [facility] (CATAPRES) 03:27: 3D mouth [...] 03:27: daily. Medical tablet 05 Center cloNIDine 2018-0 Yes .3mg Q.[id number] Take 0.[address] [facility] [address] HCl 4-01 [id number] mg by [facility] (CATAPRES) 03:27: 3D mouth 3 Medi jennifer 0.3 MG 05 (three) Center tablet times daily. furosemide 2018-0 Yes 40mg Take [address] (LASIX) 40 4-01 by mouth [facility] MG tablet 03:27: every Medical 05 other day. [facility] amLODIPine 2018-0 Yes 10mg QD Take [address] (NORVASC) 4-01 by mouth [facility] 10 MG 03:27: daily. Medical tablet 05 [facility] cloNIDine 2018-0 Yes .3mg Q.[id number] Take 0.[address] [facility] [address] HCl 4-01 [id number] mg by [facility] (CATAPRES) 03:27: 3D mouth 3 Medi jennifer 0.3 MG 05 (three) Center tablet times daily. furosemide 2018-0 Yes 40mg Take [address] (LASIX) 40 4-01 by mouth [facility] MG tablet 03:27: every Medical 05 other day. [facility] amLODIPine 2018-0 Yes 10mg QD Take [address] (NORVASC) 4-01 by mouth [facility] 10 MG 03:27: daily. Medical tablet 05 [facility] cloNIDine 2018-0 Yes .3mg Q.[id number] Take 0.[address] [facility] [address] HCl 4-01 [id number] mg by [facility] (CATAPRES) 03:27: 3D mouth 3 Medi jennifer 0.3 MG 05 (three) Center tablet times daily. furosemide 2018-0 Yes 40mg Take [address] (LASIX) 40 4-01 by mouth [facility] MG tablet 03:27: every Medical 05 other day. [facility] amLODIPine 2018-0 Yes 10mg QD Take [address] (NORVASC) 4-01 by mouth [facility] 10 MG 03:27: daily. Medical tablet 05 [facility] cloNIDine 2018-0 Yes .3mg Q.[id number] Take 0.[address] [facility] [address] HCl 4-01 [id number] mg by [facility] (CATAPRES) 03:27: 3D mouth 3 Medi jennifer 0.3 MG 05 (three) Center tablet times daily. furosemide 2018-0 Yes 40mg Take [address] (LASIX) 40 4-01 by mouth [facility] MG tablet 03:27: every Medical 05 other day. [facility] amLODIPine 2018-0 Yes 10mg QD Take [address] (NORVASC) 4-01 by mouth [facility] 10 MG 03:27: daily. Medical tablet 05 [facility] cloNIDine 2018-0 Yes .3mg Q.[id number] Take 0.[address] [facility] [address] HCl 4-01 [id number] mg by [facility] (CATAPRES) 03:27: 3D mouth 3 Medi jennifer 0.3 MG 05 (three) Center tablet times daily. furosemide 2017-0 Yes 40mg Take [address] (LASIX) 40 4-01 by mouth [facility] MG tablet 03:27: every Medical 05 other day. [facility] amLODIPine 2017-0 Yes 10mg QD Take [address] (NORVASC) 4-01 by mouth [facility] 10 MG 03:27: daily. Medical tablet 05 [facility] cloNIDine 2017-0 Yes .3mg Q.[id number] Take 0.[address] [facility] HCl 4-01 [id number] mg by [facility] (CATAPRES) 03:27: 3D mouth 3 Medi jennifer 0.3 MG 05 (three) Center tablet times daily. furosemide 2018-0 Yes 40mg Take [address] (LASIX) 40 4-01 by mouth [facility] MG tablet 03:27: every Medical 05 other day. [facility] amLODIPine 2017-0 Yes 10mg QD Take [address] (NORVASC) 4-01 by mouth [facility] 10 MG 03:27: daily. Medical tablet 05 [facility] Vital Signs Vital Name Observation Time Observation Value Comments Source Systolic blood 2022-07-24 21:40:00 140 mm[Hg] [facility] pressure Medicine Diastolic blood 2022-07-24 21:40:00 80 mm[Hg] [facility] Medicine Heart rate 2022-07-24 21:40:00 63 /min [facility] Respiratory rate 2022-07-24 20:57:00 16 /min [facility] Body height 2022-07-24 20:57:00 160 cm [facility] of Medicine Body weight 2022-07-24 20:57:00 55.974 kg [facility] BMI 2022-07-24 20:57:00 21.86 kg/m2 [facility] Medicine Body weight 2021-08-08 19:36:00 61.236 kg [facility] Medicine BMI 2021-08-08 19:36:00 23.91 kg/m2 [facility] ol[facility] of Medicine Systolic blood 2021-08-08 19:36:00 130 mm[Hg] [facility] pressure Medicine Diastolic blood 2021-08-08 19:36:00 70 mm[Hg] [facility] pressure Medicine Heart rate 2021-08-08 19:36:00 82 /min [facility] Respiratory rate 2021-08-08 19:36:00 16 /min [facility] Body height 2021-08-08 19:36:00 160 cm [facility] Systolic blood 2021-04-05 18:18:00 130 mm[Hg] [facility] pressure Medicine Diastolic blood 2021-04-05 18:18:00 80 mm[Hg] [facility] pressure Medicine Heart rate 2021-04-05 18:18:00 75 /min [facility] Respiratory rate 2021-04-05 18:18:00 16 /min [facility] Body height 2021-04-05 18:18:00 160 cm [facility] of Medicine Body weight 2021-04-05 18:18:00 62.869 kg [facility] BMI 2021-04-05 18:18:00 24.55 kg/m2 [facility] Systolic blood 2020-10-07 19:41:00 157 mm[Hg] [facility] pressure Medicine Diastolic blood 2020-10-07 19:41:00 82 mm[Hg] [facility] pressure Medicine Heart rate 2020-10-07 19:41:00 51 /min [facility] Respiratory rate 2020-10-07 19:41:00 17 /min [facility] Body height 2020-05-05 14:26:00 160 cm [facility] Body weight 2020-05-05 14:26:00 68.04 kg [facility] BMI 2020-05-05 14:26:00 26.57 kg/m2 [facility] Systolic blood 2020-05-05 14:26:00 159 mm[Hg] [facility] Diastolic blood 2020-05-05 14:26:00 78 mm[Hg] [facility] Heart rate 2020-05-05 14:26:00 59 /min [facility] Body temperature 2020-05-05 14:26:00 36.61 Viky [facility] Respiratory rate 2020-05-05 14:26:00 18 /min [facility] Systolic blood 2020-04-05 18:17:00 144 mm[Hg] [facility] Diastolic blood 2020-04-05 18:17:00 82 mm[Hg] [facility] Heart rate 2020-04-05 18:17:00 56 /min [facility] Body temperature 2020-04-05 18:17:00 36.44 Viky [facility] Respiratory rate 2020-04-05 18:17:00 16 /min [facility] Body height 2020-04-05 18:17:00 162.6 cm [facility] Body weight 2020-04-05 18:17:00 64.411 kg [facility] BMI 2020-04-05 18:17:00 24.37 kg/m2 [facility] Procedures Procedure Date / Time Performing Clinician Source Performed CBC W/O DIFF W PLT 2022-07-24 15:46:00 [facility] COMPREHENSIVE METABOLIC 2022-07-24 15:46:00 [facility] PTH INTACT 2022-07-24 15:46:00 [facility] PHOSPHORUS 2022-07-24 15:46:00 [facility] VITAMIN D 25 HYDROXY 2022-07-24 15:46:00 [facility] POCT URINALYSIS DIPSTICK 2020-10-07 00:00:00 Demetrius Larkin [facility] POCT URINALYSIS DIPSTICK 2020-05-05 00:00:00 Demetrius Lrakin [facility] Plan of Care Planned Activity Planned Date Details Comments Source Future Scheduled 2022-07-24 CBC W/O DIFF W PLT Ordered: [facility] [employer] Test 15:28:22 [code = 6690-2] 07/24/2022 of Medicine Future Scheduled 2022-07-24 COMPREHENSIVE Ordered: [facility] Col [facility]ge Test 15:28:22 METABOLIC PANEL 07/24/2022 of Medicine [code = 63455-9] Future Scheduled 2022-07-24 PTH INTACT [code = Ordered: [facility] [employer] Test 15:28:22 2731-8] 07/24/2022 of Medicine Future Scheduled 2022-07-24 PHOSPHORUS [code = Ordered: [facility] [employer] Test 15:28:22 2777-1] 07/24/2022 of Medicine Future Scheduled 2022-07-24 VITAMIN D 25 HYDROXY Ordered: [facility] [employer] Test 15:28:22 [code = 1989-3] 07/24/2022 of [facility] Future Scheduled 2022-07-24 Screening for [facility] Test 14:59:21 malignant neoplasm of Medici ne of colon (procedure) [code = 902321599] Future Scheduled 2022-07-24 Pneumococcal 65+ (1 [facility] [employer] Test 14:59:21 - PCV) [code = of Medicine Pneumococcal 65+ (1 - PCV)] Future Scheduled 2022-07-24 TETANUS SHOT (ADULT) [facility] Test 14:59:21 [code = TETANUS SHOT of Medi cine (ADULT)] Future Scheduled 2022-07-24 ZOSTER VACCINE (1 of [facility] [employer] Test 14:59:21 2) [code = ZOSTER of Medicin e VACCINE (1 of 2)] Future Scheduled 2022-07-24 Medicare Awv [facility] Test 14:59:21 (Initial) [code = of Medicin e Medicare Awv (Initial)] Future Scheduled 2022-07-24 Abdominal aortic [facility] Test 14:59:21 aneurysm screening of Medici ne (procedure) [code = 220174727] Future Scheduled 2022-07-24 Fall Screen [code = [facility] [employer] Test 14:59:21 Fall Screen] of Medicine Future Scheduled 2022-07-24 COVID-19 Vaccine (3 [facility] [employer] Test 14:59:21 - Booster for Pfizer of Medi cine series) [code = COVID-19 Vaccine (3 - Booster for Pfizer series)] Future Scheduled 2022-07-24 FLU VACCINE > 6 [facility] Test 14:59:21 MONTHS [code = [...] 2021-08-08 CBC W/O DIFF W PLT Ordered: [facility] Test 14:06:14 [code = 6690-2] 08/08/2021 of Medicine Future Scheduled 2021-08-08 COMPREHENSIVE Ordered: [facility] lege Test 14:06:14 METABOLIC PANEL 08/08/2021 of Medicine [code = 59833-9] Future Scheduled 2021-08-08 FERRITIN [code = Ordered: [facility] Test 14:06:14 86079-1] 08/08/2021 of Medicine Future Scheduled 2021-08-08 IRON+TIBC+%SAT [code Ordered: [facility] Test 14:06:14 = NOCPT] 08/08/2021 of Medicine Future Scheduled 2021-08-08 PHOSPHORUS [code = Ordered: [facility] Test 14:06:14 2777-1] 08/08/2021 of Medicine Future Scheduled 2021-08-08 PTH INTACT [code = Ordered: [facility] Test 14:06:14 2731-8] 08/08/2021 of Medicine Future Scheduled 2021-08-08 VITAMIN D 25 HYDROXY Ordered: [facility] Test 14:06:14 [code = 1989-3] 08/08/2021 of Medicine Future Scheduled 2021-08-08 MICROALBUMIN/CREAT Ordered: [facility] Test 14:06:14 URINE RATIO [code = 08/08/2021 of Medic ine 9318-7] Future Scheduled 2021-08-08 Screening for [facility] Col [facility]ge Test 13:35:31 malignant neoplasm of Medici ne of colon (procedure) [code = 683379596] Future Scheduled 2021-08-08 TETANUS SHOT (ADULT) [facility] Test 13:35:31 [code = TETANUS SHOT of Medi cine (ADULT)] Future Scheduled 2021-08-08 ZOSTER VACCINE (1 of [facility] Test 13:35:31 2) [code = ZOSTER of Medicin e VACCINE (1 of 2)] Future Scheduled 2021-08-08 MEDICARE AWV [facility] Test 13:35:31 (Initial) [code = of Medicin e MEDICARE AWV (Initial)] Future Scheduled 2021-08-08 Abdominal aortic [facility] [employer] Test 13:35:31 aneurysm screening of Medici ne (procedure) [code = 467207146] Future Scheduled 2021-08-08 FALL SCREEN [code = [facility] or [facility] Test 13:35:31 FALL SCREEN] of Medicine Future Scheduled 2021-08-08 Pneumococcal 65+ (1 [facility] or [facility] Test 13:35:31 of 1 - PPSV23) [code of Medi cine = Pneumococcal 65+ (1 of 1 - PPSV23)] Future Scheduled 2021-08-08 FLU VACCINE > 6 [facility] Test 13:35:31 MONTHS [code = [...] METABOLIC PANEL 05/09/2021 of Medicine [code = 82995-8] (Approximate), Expires: 06/09/2021 Future Scheduled 2021-05-09 CBC W/AUTO DIFF WITH Expected: [employer] Test 00:00:00 PLATELETS [code = 05/09/2021 of Medicin e 34986-5] (Approximate), Expires: 06/09/2021 Future Scheduled 2021-04-05 CBC W/AUTO DIFF WITH Ordered: [employer] [facility] Test 13:38:59 PLATELETS [code = 04/05/2021 of Medicin e 24636-5] Future Scheduled 2021-04-05 COMPREHENSIVE Ordered: [facility] Test 13:38:59 METABOLIC PANEL 04/05/2021 of Medicine [code = 64955-7] Future Scheduled 2021-04-05 FERRITIN [code = Ordered: [facility] Test 13:38:59 65719-9] 04/05/2021 of Medicine Future Scheduled 2021-04-05 IRON+TIBC+%SAT [code Ordered: [employer] Test 13:38:59 = NOCPT] 04/05/2021 of Medicine Future Scheduled 2021-04-05 PHOSPHORUS [code = Ordered: [facility] Test 13:38:59 2777-1] 04/05/2021 of Medicine Future Scheduled 2021-04-05 PTH INTACT [code = Ordered: [facility] [employer] Test 13:38:59 2731-8] 04/05/2021 of Medicine Future Scheduled 2021-04-05 RANDOM URINE Ordered: [facility] Test 13:38:59 PROTEIN/CREATININE 04/05/2021 of Medici ne [code = 2890-2] Future Scheduled 2021-04-05 MICROALBUMIN/CREAT Ordered: [facility] Test 13:38:59 URINE RATIO [code = 04/05/2021 of Medic ine 9318-7] Future Scheduled 2021-04-05 VITAMIN D 25 HYDROXY Ordered: [facility] [employer] Test 13:38:59 [code = 1989-3] 04/05/2021 of Medicine Future Scheduled 2021-04-05 ANTI NEUTROPHIL Ordered: [facility] Test 13:38:59 CYTOPLASMIC ANTIBODY 04/05/2021 of Medi cine [code = 78006] Future Scheduled 2021-04-05 CBC W/AUTO DIFF WITH Ordered: [facility] [employer] Test 13:38:59 PLATELETS [code = 04/05/2021 of Medicin e 89643-7] Future Scheduled 2021-04-05 COMPREHENSIVE Ordered: [facility]ge Test 13:38:59 METABOLIC PANEL 04/05/2021 of Medicine [code = 78215-7] Future Scheduled 2021-04-05 FERRITIN [code = Ordered: [facility] [employer] Test 13:38:59 89406-8] 04/05/2021 of Medicine Future Scheduled 2021-04-05 IRON+TIBC+%SAT [code Ordered: [facility] Test 13:38:59 = NOCPT] 04/05/2021 of Medicine Future Scheduled 2021-04-05 PHOSPHORUS [code = Ordered: [facility] Test 13:38:59 2777-1] 04/05/2021 of Medicine Future Scheduled 2021-04-05 PTH INTACT [code = Ordered: [employer] [facility] [employer] Test 13:38:59 2731-8] 04/05/2021 of Medicine Future Scheduled 2021-04-05 RANDOM URINE Ordered: [facility] Test 13:38:59 PROTEIN/CREATININE 04/05/2021 of Medici ne [code = 2890-2] Future Scheduled 2021-04-05 MICROALBUMIN/CREAT Ordered: [employer] [facility] [employer] Test 13:38:59 URINE RATIO [code = 04/05/2021 of Medic ine 9318-7] Future Scheduled 2021-04-05 VITAMIN D 25 HYDROXY Ordered: [employer] Test 13:38:59 [code = 1989-3] 04/05/2021 of Medicine Future Scheduled 2021-04-05 ANTI NEUTROPHIL Ordered: [facility] Test 13:38:59 CYTOPLASMIC ANTIBODY 04/05/2021 of Medi cine [code = 46056] Future Scheduled 2021-04-05 Screening for [facility]ge Test 13:19:08 malignant neoplasm of Medici ne of colon (procedure) [code = 818823588] Future Scheduled 2021-04-05 TETANUS SHOT (ADULT) [employer] Test 13:19:08 [code = TETANUS SHOT of Medi cine (ADULT)] Future Scheduled 2021-04-05 BMI FOLLOW UP PLAN [facility] Test 13:19:08 [code = BMI FOLLOW of Medici ne UP PLAN] Future Scheduled 2021-04-05 ZOSTER VACCINE (1 of [facility] Test 13:19:08 2) [code = ZOSTER of Medicin e VACCINE (1 of 2)] Future Scheduled 2021-04-05 MEDICARE AWV [facility] Test 13:19:08 (Initial) [code = of Medicin e MEDICARE AWV (Initial)] Future Scheduled 2021-04-05 Abdominal aortic [facility] [employer] Test 13:19:08 aneurysm screening of Medici ne (procedure) [code = 535079418] Future Scheduled 2021-04-05 FALL SCREEN [code = [facility] or [facility] Test 13:19:08 FALL SCREEN] of Medicine Future Scheduled 2021-04-05 PNEUMOVAX >=65 [facility] Test 13:19:08 (PPSV23) [code = of Medicine PNEUMOVAX >=65 (PPSV23)] Future Scheduled 2021-04-05 FLU VACCINE > 6 [facility] Test 13:19:08 MONTHS [code = FLU of Medici ne VACCINE > 6 MONTHS] Future Scheduled 2021-04-05 Screening for [facility]ge Test 13:19:08 malignant neoplasm of Medici ne of colon (procedure) [code = 087047703] Future Scheduled 2021-04-05 TETANUS SHOT (ADULT) [employer] [facility] Test 13:19:08 [code = TETANUS SHOT of Medi cine (ADULT)] Future Scheduled 2021-04-05 BMI FOLLOW UP PLAN [facility] Test 13:19:08 [code = BMI FOLLOW of Medici ne UP PLAN] Future Scheduled 2021-04-05 ZOSTER VACCINE (1 of [facility] Test 13:19:08 2) [code = ZOSTER of Medicin e VACCINE (1 of 2)] Future Scheduled 2021-04-05 MEDICARE AWV [facility] Test 13:19:08 (Initial) [code = of Medicin e MEDICARE AWV (Initial)] Future Scheduled 2021-04-05 Abdominal aortic [facility] [employer] Test 13:19:08 aneurysm screening of Medici ne (procedure) [code = 804045549] Future Scheduled 2021-04-05 FALL SCREEN [code = [facility] [facility] [employer] Test 13:19:08 FALL SCREEN] of Medicine Future Scheduled 2021-04-05 PNEUMOVAX >=65 [facility] Test 13:19:08 (PPSV23) [code = of Medicine PNEUMOVAX >=65 (PPSV23)] Future Scheduled 2021-04-05 FLU VACCINE > 6 [facility] Test 13:19:08 MONTHS [code = [...] Diagnostic Test 2020-05-19 PSA TOTAL(URO DEPT) Expected: [facility] Pending 00:00:00 [code = 2857-1] 05/19/2020 [...] C enter of colon (procedure) [code = 047515708] Future Scheduled [address] [facility] Test 00:00:00 malignant neoplasm Medical C enter of colon (procedure) [code = 447448836] Future Scheduled [address] [facility] Test 00:00:00 malignant neoplasm Medical C enter of colon (procedure) [code = 458408345] Future Scheduled [address] [facility] Test 00:00:00 malignant neoplasm Medical C enter of colon (procedure) [code = 821123471] Future Scheduled 1950 Sigmoidoscopy [code [facility] Test 00:00:00 = Sigmoidoscopy] Medical [place] [address] Future Scheduled [address] [facility] Test 00:00:00 malignant neoplasm Medical C enter of colon (procedure) [code = 097132789] Future Scheduled [address] [facility] Test 00:00:00 malignant neoplasm Medical C enter of colon (procedure) [code = 354409337] Future Scheduled [address] [facility] Test 00:00:00 (combo) [code = CT Medical C enter Colonography (combo)] Future Scheduled [address] [facility] Test 00:00:00 malignant neoplasm Medical C enter of colon (procedure) [code = 996515186] Future Scheduled [address] [facility] Test 00:00:00 malignant neoplasm Medical C enter of colon (procedure) [code = 793854530] Future Scheduled [address] [facility] Test 00:00:00 malignant neoplasm Medical C enter of colon (procedure) [code = 328552151] Future Scheduled [address] [facility] Test 00:00:00 malignant neoplasm Medical C enter of colon (procedure) [code = 257196074] Future Scheduled 1950 Sigmoidoscopy [code [facility] Test 00:00:00 = Sigmoidoscopy] Medical [place] [address] Future Scheduled [address] [facility] Test 00:00:00 malignant neoplasm Medical C enter of colon (procedure) [code = 812123447] Future Scheduled [address] [facility] Test 00:00:00 malignant neoplasm Medical C enter of colon (procedure) [code = 013300832] Future Scheduled [address] [facility] Test 00:00:00 (combo) [code = CT Medical C enter Colonography (combo)] Future Scheduled [address] [facility] Test 00:00:00 malignant neoplasm Medical C enter of colon (procedure) [code = 755632218] Future Scheduled [address] [facility] Test 00:00:00 malignant neoplasm Medical C enter of colon (procedure) [code = 014685338] Future Scheduled [address] [facility] Test 00:00:00 malignant neoplasm Medical C enter of colon (procedure) [code = 082469504] Future Scheduled [address] [facility] Test 00:00:00 malignant neoplasm Medical C enter of colon (procedure) [code = 451756233] Future Scheduled 1950 Sigmoidoscopy [code [facility] C enter of colon (procedure) [code = 350288946] Future Scheduled [address] [facility] Test 00:00:00 malignant neoplasm Medical C enter of colon (procedure) [code = 773519185] Future Scheduled [address] [facility] Test 00:00:00 malignant neoplasm Medical C enter of colon (procedure) [code = 006425387] Future Scheduled [address] [facility] Test 00:00:00 malignant neoplasm Medical C enter of colon (procedure) [code = 218182215] Future Scheduled 1950 Sigmoidoscopy [code [facility] Test 00:00:00 = Sigmoidoscopy] Medical [place] [address] Future Scheduled [address] [facility] Test 00:00:00 (combo) [code = CT Medical C enter Colonography (combo)] Future Scheduled [address] [facility] Test 00:00:00 malignant neoplasm Medical C enter of colon (procedure) [code = 450677166] Future Scheduled [address] [facility] Test 00:00:00 malignant neoplasm Medical C enter of colon (procedure) [code = 228860089] Future Scheduled [address] [facility] Test 00:00:00 malignant neoplasm Medical C enter of colon (procedure) [code = 400520315] Future Scheduled [address] [facility] Test 00:00:00 malignant neoplasm Medical C enter of colon (procedure) [code = 747163343] Future Scheduled 1952 Sigmoidoscopy [code [facility] Test 00:00:00 = Sigmoidoscopy] Medical [place] [address] Future Scheduled [address] [facility] Test 00:00:00 (combo) [code = CT Medical C enter Colonography (combo)] Future Scheduled [address] [facility] Test 00:00:00 malignant neoplasm Medical C enter of colon (procedure) [code = 839495698] Future Scheduled [address] [facility] Test 00:00:00 malignant neoplasm Medical C enter of colon (procedure) [code = 997977538] Future Scheduled [address] [facility] Test 00:00:00 malignant neoplasm Medical C enter of colon (procedure) [code = 052442262] Future Scheduled [address] [facility] Test 00:00:00 malignant neoplasm Medical C enter of colon (procedure) [code = 355978232] Future Scheduled 1950 Sigmoidoscopy [code [facility] Test 00:00:00 = Sigmoidoscopy] Medical [place] [address] Future Scheduled [address] [facility] Test 00:00:00 (combo) [code = CT Medical C enter Colonography (combo)] Future Scheduled [address] [facility] Test 00:00:00 malignant neoplasm Medical C enter of colon (procedure) [code = 963236753] Future Scheduled [address] [facility] Test 00:00:00 malignant neoplasm Medical C enter of colon (procedure) [code = 851198565] Future Scheduled [address] [facility] Test 00:00:00 malignant neoplasm Medical C enter of colon (procedure) [code = 669951416] Future Scheduled [address] [facility] Test 00:00:00 malignant neoplasm Medical C enter of colon (procedure) [code = 728843990] Future Scheduled 1952 Sigmoidoscopy [code [facility] Test 00:00:00 = Sigmoidoscopy] Medical [place] Future Scheduled [address] [facility] Test 00:00:00 (combo) [code = CT Medical C enter Colonography (combo)] Future Scheduled [address] [facility] Test 00:00:00 malignant neoplasm Medical C enter of colon (procedure) [code = 926447020] Future Scheduled [address] [facility] Test 00:00:00 malignant neoplasm Medical C enter of colon (procedure) [code = 549141375] Future Scheduled [address] [facility] Test 00:00:00 malignant neoplasm Medical C enter of colon (procedure) [code = 358170714] Future Scheduled [address] [facility] Test 00:00:00 malignant neoplasm Medical C enter of colon (procedure) [code = 600350265] Future Scheduled 1952 Sigmoidoscopy [code [facility] Test 00:00:00 = Sigmoidoscopy] Medical [place] [address] Future Scheduled [address] [facility] Test 00:00:00 (combo) [code = CT Medical C enter Colonography (combo)] Future Scheduled [address] [facility] Test 00:00:00 malignant neoplasm Medical C enter of colon (procedure) [code = 931115145] Future Scheduled [address] [facility] Test 00:00:00 malignant neoplasm Medical C enter of colon (procedure) [code = 024834010] Future Scheduled [address] [facility] Test 00:00:00 malignant neoplasm Medical C enter of colon (procedure) [code = 016975645] Future Scheduled [address] [facility] Test 00:00:00 malignant neoplasm Medical C enter of colon (procedure) [code = 388688293] Future Scheduled 1950 Sigmoidoscopy [code [facility] Test 00:00:00 = Sigmoidoscopy] Medical [place] [address] Future Scheduled [address] [facility] Test 00:00:00 (combo) [code = CT Medical C enter Colonography (combo)] Future Scheduled [address] [facility] Test 00:00:00 malignant neoplasm Medical C enter of colon (procedure) [code = 756107847] Future Scheduled [address] [facility] Test 00:00:00 malignant neoplasm Medical C enter of colon (procedure) [code = 962908264] Future Scheduled [address] [facility] Test 00:00:00 malignant neoplasm Medical C enter of colon (procedure) [code = 907525298] Future Scheduled [address] [facility] Test 00:00:00 malignant neoplasm Medical C enter of colon (procedure) [code = 743096371] Future Scheduled 1952 Sigmoidoscopy [code [facility] Test 00:00:00 = Sigmoidoscopy] Medical [place] Future Scheduled [address] [facility] Test 00:00:00 (combo) [code = CT Medical C enter Colonography (combo)] Future Scheduled [address] [facility] Test 00:00:00 malignant neoplasm Medical C enter of colon (procedure) [code = 973385783] Future Scheduled [address] [facility] Test 00:00:00 malignant neoplasm Medical C enter of colon (procedure) [code = 921549762] Future Scheduled [address] [facility] Test 00:00:00 malignant neoplasm Medical C enter of colon (procedure) [code = 577737541] Future Scheduled [address] [facility] Test 00:00:00 malignant neoplasm Medical C enter of colon (procedure) [code = 516500596] Future Scheduled 1952 Sigmoidoscopy [code [facility] Test 00:00:00 = Sigmoidoscopy] Medical [place] Future Scheduled [address] [facility] Test 00:00:00 (combo) [code = CT Medical C enter Colonography (combo)] Future Scheduled [address] [facility] Test 00:00:00 malignant neoplasm Medical C enter of colon (procedure) [code = 987180537] Future Scheduled [address] [facility] Test 00:00:00 malignant neoplasm Medical C enter of colon (procedure) [code = 043332333] Future Scheduled [address] [facility] Test 00:00:00 malignant neoplasm Medical C enter of colon (procedure) [code = 897069708] Future Scheduled [address] [facility] Test 00:00:00 malignant neoplasm Medical C enter of colon (procedure) [code = 533105075] Future Scheduled 1952 Sigmoidoscopy [code [facility] Test 00:00:00 = Sigmoidoscopy] Medical [place] Future Scheduled COLON CANCER [facility] [employer] Test SCREENING: of Medicine COLONOSCOPY [code = COLON CANCER SCREENING: COLONOSCOPY] Future Scheduled TETANUS SHOT (ADULT) [employer] Test [code = TETANUS SHOT of Medi cine (ADULT)] Future Scheduled BMI FOLLOW UP PLAN [facility] [place] Test [code = BMI FOLLOW of Medici ne UP PLAN] Future Scheduled ZOSTER VACCINE (1 of [facility] Test 2) [code = ZOSTER of Medicin e VACCINE (1 of 2)] Future Scheduled MEDICARE AWV [facility] [employer] Test (Initial) [code = of Medicin e MEDICARE AWV (Initial)] Future Scheduled AAA Screen [code = [employer] [place] Test AAA Screen] of Medicine Future Scheduled FALL SCREEN [code = [facility] Test FALL SCREEN] of Medicine Future Scheduled PNEUMOVAX >=65 [facility] Test (PPSV23) [code = of Medicine PNEUMOVAX >=65 (PPSV23)] Future Scheduled FLU VACCINE > 6 [facility] Test MONTHS [code = FLU of Medici ne VACCINE > 6 MONTHS] Future Scheduled URINALYSIS W REFLEX Ordered: [employer] Test MICRO [code = NOCPT] 10/07/2020 of Medi cine Future Scheduled Screening for [facility] Col [facility]ge Test malignant neoplasm of Medici ne of colon (procedure) [code = 504698916] Future Scheduled TETANUS SHOT (ADULT) [employer] Test [code = TETANUS SHOT of Medi cine (ADULT)] Future Scheduled BMI FOLLOW UP PLAN [employer] Test [code = BMI FOLLOW of Medici ne UP PLAN] Future Scheduled ZOSTER VACCINE (1 of [employer] Test 2) [code = ZOSTER of Medicin e VACCINE (1 of 2)] Future Scheduled MEDICARE AWV [facility] [employer] Test (Initial) [code = of Medicin e MEDICARE AWV (Initial)] Future Scheduled Abdominal aortic [facility] [employer] Test aneurysm screening of Medici ne (procedure) [code = 092011851] Future Scheduled FALL SCREEN [code = [employer] [facility] FALL SCREEN] of Medicine Future Scheduled PNEUMOVAX >=65 [facility] Test (PPSV23) [code = of Medicine PNEUMOVAX >=65 (PPSV23)] Future Scheduled FLU VACCINE > 6 [facility] Test MONTHS [code = FLU of Medici ne VACCINE > 6 MONTHS] Future Scheduled RANDOM URINE Ordered: [facility] [employer] Test PROTEIN/CREATININE 04/05/2020 of Medici ne [code = 2890-2] Future Scheduled URINALYSIS AUTO Ordered: [facility] Test W/SCOPE [code = 04/05/2020 of Medicine 32878-6] Future Scheduled COLON CANCER [facility] [employer] Test SCREENING: of Medicine COLONOSCOPY [code = COLON CANCER SCREENING: COLONOSCOPY] Future Scheduled TETANUS SHOT (ADULT) [employer] Test [code = TETANUS SHOT of Medi cine (ADULT)] Future Scheduled ZOSTER VACCINE (1 of [employer] Test 2) [code = ZOSTER of Medicin e VACCINE (1 of 2)] Future Scheduled MEDICARE AWV [facility] [employer] Test (Initial) [code = of Medicin e MEDICARE AWV (Initial)] Future Scheduled AAA Screen [code = [employer] [facility] AAA Screen] of Medicine Future Scheduled FALL SCREEN [code = [employer] FALL SCREEN] of Medicine Future Scheduled PNEUMOVAX >=65 [facility] Test (PPSV23) [code = of Medicine PNEUMOVAX >=65 (PPSV23)] Future Scheduled FLU VACCINE > 6 [facility] Test MONTHS [code = FLU of Medici ne VACCINE > 6 MONTHS] Future Scheduled MRI ABDOMEN WO 1 [facility] ol[facility] Test CONTRAST [code = starting of Medicine 28422-1] 05/05/2020 until 11/28/2020 Future Scheduled XR CHEST PA AND 1 Occurrences [facility] Test LATERAL [code = starting of Medicine 52187-4] 05/05/2020 until 11/28/2020 Encounters Start End Encounter Admission Attending Care Care Encounter Source Date/Time Date/Time Type Type Clinicians Facility Department ID 2022-07-24 2022-07-24 Office SADIA [facility] [id number] [facility] 14:23:11 19:52:16 Visit BRADYCESARIO AMBULATOR 350.1.13.21 College Y 0.2.7.2.686 of [id number] [facility] 335 e 2021-08-08 2021-08-08 Office Sadia [facility] 1.2.840.114 [id number] [facility] 13:40:00 14:52:39 Visit Aimee AMBULATOR 350.1.13.21 College Y 0.2.7.2.686 of [id number] [facility] 335 e 2021-04-05 2021-04-05 Office Sadia [facility] 1.2.840.114 [id number] [facility] 13:14:21 13:46:44 Visit Bradycesario AMBULATOR 350.1.13.21 College Y 0.2.7.2.686 of [id number] [facility] 335 e 2020-10-07 2020-10-07 Office Prasanna [facility] [id number] [facility] 14:37:10 16:35:39 Visit Demetrius Kohler AMBULATOR 350.1.13.21 College Y 0.2.7.2.686 of [id number] [facility] 300 e 2020-05-25 2020-05-25 Outpatient HERMELINDA LARKIN [facility] [id number] [facility] 00:00:00 00:00:00 DEMETRIUS 2020-05-25 2020-05-25 Outpatient HERMELINDA LARKIN [facility] [id number] [facility] 00:00:00 00:00:00 DEMETRIUS 2020-05-05 2020-05-05 Office LILLIANA Larkin 1.2.840.114 [id number] [facility] 08:40:26 09:26:13 Visit Demetrius Kohler AMBULATOR 350.1.13.21 College Y 0.2.7.2.686 of [id number] [facility] 300 e 2020-04-05 2020-04-05 Office LILLIANA Mccullough 1.2.840.114 [id number] [facility] 12:38:08 16:49:05 Visit Aimee AMBULATOR 350.1.13.21 College Y 0.2.7.2.686 of [id number] [facility] 335 e 2020-03-02 2020-03-02 Outpatient [facility] [id number] [facility] 00:00:00 00:00:00 Results Test Description Test Time Test Comments Results Result Comments Source POCT URINALYSIS DIPSTICK 2020-10-07 00:00:00 Test Item Value Reference Range Interpretation Comme nts COLOR UA (test code = 5778-6) Yellow YELLOW/STRAW CLARITY UA (test code = 46095-5) Clear CLEAR GLUCOSE UA (test code = 5792-7) Negative NEGATIVE BILIRUBIN UA (test code = 5770-3) Negative NEGATIVE KETONES UA (test code = 55666-8) Negative NEGATIVE SPECIFIC GRAVITY UA (test code [...] NEGATIVE REDUCING SUBSTANCES URINE (test code = 83179-6) [facility] [id number] 16:51:00 Unlisted Reason for Exam - Click Yes and Enter Reason Below->YesUnlisted Reason for Exam->Personal history of kidney cancer [facility] CENTERName: JENNIFER BELLA : 1950 Sex: MFINAL [...] metastatic disease in the abdomen. Signed: Alo [place] Verified Date/Time: 05/25/2020 16:51:08 Reading Location: [facility] [address] [place] [address] Reading Room RAD, CHEST, 2 [id number] 10:10:00Reason for Exam:->[facility] 1950 Sex: MFINAL [...] 05/25/2020 10:10:41 Reading Location: [facility] Reading Room [facility] B01.627 POCT URINALYSIS DIPSTICK 2020-05-05 00:00:00 Test Item Value Reference Range Interpretation Comments COLOR UA (test code = 5778-6) [place] YELLOW/STRAW CLARITY UA (test code = 47028-5) Clear CLEAR GLUCOSE UA (test code = 5792-7) Negative NEGATIVE BILIRUBIN UA (test code = 5770-3) Negative NEGATIVE KETONES UA (test code = 28216-4) Negative NEGATIVE SPECIFIC GRAVITY UA (test code [...] NEGATIVE REDUCING SUBSTANCES URINE (test code = 51270-0) [facility] [id number] 09:38:00Surgical Pathology Report Case: [id number] Authorizing Provider: Demetrius Larkin MD Collected: 10/09/2017 1652 Ordering Location: [facility] PERIOPERATIVE Received: 10/10/2017 0810 SERVICES [...] SYNOPTIC REPORT Signing Pathologist Direct Phone Line: [phone] signed by Joyce Sauceda MD on 10/16/2017 at 9:38 AMThe relative revisions of traditional Dami nuclear grading in predicting 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 The assessment of nucleolar prominence as a single parameter is noted to correlate better with outcomethan other nuclear parameters (size, shape) to assign a Dami grade. ("Urologic Surgical Pathology," Janelle, third edition, 2014). Nuclear grade assigned in Synoptic portion of this report(tw, can include).This patient's previous biopsy from [facility], from 03/02/2017 (SS17- 1130) shows a core biopsy with features similar to those noted in this larger tumor. Some featuresof the core biopsy suggest a mucinous tubular [...] Additional Pathological Findings: Cyst(s): Simple cortical cyst 01031 X 2, 76009, 35324 x6Left renal massA. Retroperitoneal lymph node. B. [...] positive; AE1/AE3-positive; RICHARD and CK 7-focally positive; VK24-whnhromz CD10 equivocal, possibly focally positiveThe immunohistochemistry test [...] perform high complexity clinical laboratory testing.BASIC METABOLIC [id number] 13:36:00 Test Item Value Reference Range Interpretation [...] PATIEN TS. CBC W/PLT COUNT & AUTO [id number] 12:44:00 Test Item Value Reference Range Interpretation [...] (BEAKER) (test code = 2801) BASIC METABOLIC [id number] 15:02:00 Test Item Value Reference Range Interpretation [...] FOR DIALYSIS PATIEN TS. Please draw at 2:00pmBASI METABOLIC [id number] 06:14:00 Test Item Value Reference Range Interpretation [...] S NOT APPLICABLE FOR DIALYSIS PATIEN TS. [id number] 06:03:00 Test Item Value Reference Range Interpretation Comments PHOSPHORUS (BEAKER) (test code = 2.7 mg/dL 2.3-4.7 604) [id number] 06:03:00 Test Item Value Reference Range Interpretation Comments MAGNESIUM (BEAKER) (test code = 2.1 mg/dL 1.6-2.6 627) CBC W/PLT COUNT & AUTO [id number] 05:16:00 Test Item Value Reference Range Interpretation [...] 20-55 (test code = 2590) BASIC METABOLIC [id number] 05:41:00 Test Item Value Reference Range Interpretation [...] S NOT APPLICABLE FOR DIALYSIS PATIEN TS. [id number] 05:36:00 Test Item Value Reference Range Interpretation Comments PHOSPHORUS (BEAKER) (test code = 2.8 mg/dL 2.3-4.7 604) [id number] 05:36:00 Test Item Value Reference Range Interpretation Comments MAGNESIUM (BEAKER) (test code = 2.2 mg/dL 1.6-2.6 627) PTH, [id number] 05:33:00 Test Item Value Reference Range Interpretation Comments PARATHYROID HORMONE INTACT 212.3 pg/mL 8.5-72.5 H (BEAKER) (test code = 577) CBC W/PLT COUNT & AUTO [id number] 05:02:00 Test Item Value Reference Range Interpretation [...] 0-1 PERCENT (BEAKER) (test code = 2801) [id number] 06:36:00 Test Item Value Reference Range Interpretation Comments PHOSPHORUS (BEAKER) (test code = 2.4 mg/dL 2.3-4.7 604) [id number] 06:36:00 Test Item Value Reference Range Interpretation Comments MAGNESIUM (BEAKER) (test code = 1.8 mg/dL 1.6-2.6 627) BASIC METABOLIC [id number] 06:36:00 Test Item Value Reference Range Interpretation [...] PATIEN TS. CBC W/PLT COUNT & AUTO [id number] 05:59:00 Test Item Value Reference Range Interpretation [...] 0-1 PERCENT (BEAKER) (test code = 2801) [id number] 19:38:00 Test Item Value Reference Range Interpretation Comments PHOSPHORUS (BEAKER) (test code = 2.8 mg/dL 2.3-4.7 604) [id number] 19:38:00 Test Item Value Reference Range Interpretation Comments MAGNESIUM (BEAKER) (test code = 1.7 mg/dL 1.6-2.6 627) BASIC METABOLIC [id number] 19:35:00 Test Item Value Reference Range Interpretation [...] APPLICABLE FOR DIALYSIS PATIEN TS. HEMOGLOBIN AND [id number] 19:07:00 Test Item Value Reference Range Interpretation Comments HEMOGLOBIN (BEAKER) (test code = 13.7 GM/DL 13.7-17.5 410) HEMATOCRIT (BEAKER) (test code = 40.5 % 40.1-51.0 411) URINE [id number] 13:12:00 Test Item Value Reference Range Interpretation Comments CULTURE (BEAKER) (test code = 1095) No growth BASIC METABOLIC [id number] 17:19:00 Test Item Value Reference Range Interpretation [...] APPLICABLE FOR DIALYSIS PATIEN TS. URINALYSIS W/ [id number] 17:15:00 Test Item Value Reference Range Interpretation [...] 1574) Rare SOURCE(BEAKER) (test code = 2795) [id number] 17:07:00 Test Item Value Reference Range Interpretation Comments PARTIAL THROMBOPLASTIN TIME 28.1 seconds 22.5-36.0 (BEAKER) (test code = 760) PROTHROMBIN [id number] 17:06:00 Test Item Value Reference Range Interpretation Comments PROTIME (BEAKER) (test code = 13.6 seconds 11.7-14.7 759) INR (BEAKER) (test code = 370) 1.0 <=5.9 RECOMMENDED COUMADIN/WARFARIN INR THERAPY RANGESSTANDARD DOSE: 2.0 - 3.0 Includes: PROPHYLAXIS for venous thrombosis, systemic embolization; TREATMENT for venous thrombosis and/or pulmonary embolus.HIGH RISK: Target INR is 2.5-3.5 for patients with mechanical heart valves.CBC W/PLT COUNT & AUTO [id number] 16:53:00 Test Item Value Reference Range Interpretation [...] PERCENT (BEAKER) (test code = 2801) TISSUE [id number] 11:47:00Surgical Pathology Report Case: [id number] Authorizing Provider: Farzad Jackson Collected: 03/02/2017 1029 MD Cinthia Ordering Location: [facility] Diagnostic Imaging Received: 03/02/2017 1140 Pathologis t: [...] Intradepartmental consultation: Dr. Koko Whitney, Dr. Umu Manzanares/[id number], [id number], [id number] x2Le kidney [facility]The [facility] is received in fixative and designated [...] [facility], Pathology Laboratory. It has notbeen cleared or [...] qualified to perform high complexity clinical laboratory testing.[id number] 08:19:00 Test Item Value Reference Range Interpretation [...] mechanical heart valves.CBC W/PLT COUNT & AUTO [id number] 08:14:00 Test Item Value Reference Range Interpretation [...]
[2022-09-18 22:58] LABS: Absolute Lymphocytes (CBC) 1.1 K/uL (0.7-4.9); Hematocrit 35.1 % (39.6-49.0); Lymphocytes % 21.6 % (15.3-44.8); MCV 87.3 fL (80-100); MPV 7.7 fL (7.6-11.3); RBC Red Blood Cell Count 4.02 M/uL (4.33-5.43)
[2022-09-18 23:00] LABS: Protime INR 0.91
[2022-09-18] MEDS ORDERED: HYDROCODONE/APAP 5/325 MG TAB ONE (23:06)
[2022-09-18] MEDS ORDERED: ASPIRIN 81 MG CHEWABLE TABLET ONE (23:06)
[2022-09-18] MEDS ORDERED: IBUPROFEN 400 MG TAB ONE (23:06)
[2022-09-18 23:39] LABS: Albumin 3.7 g/dL (3.4-5.0); Bilirubin Direct 0.1 mg/dL (0-0.2); Bilirubin Total 0.3 mg/dL (0.2-1.0); Magnesium 2.3 mg/dL (1.6-2.4); Potassium 4.7 mmol/L (3.5-5.1); Protein, Total 7.2 g/dL (6.4-8.2); Troponin High Sensitivity 34.1 pg/mL (<58.9)
--- NOTE | 2022-09-19 00:28 | EDPHYS ---
Physician Documentation [facility] Name: Aravind Low Age: 72 yrs Sex: Male : 1950 Arrival Date: 09/18/2022 Time: 19:43 Bed 6 Private MD: ED Physician Joaquin Lord HPI: 09/18 19:52 This 72 yrs old Black Male presents to ER via EMS with complaints of Leg Pain. sp4 19:52 72-year-old black male presents with EMS for primary complaint of the left leg pain sp4 around the left knee. 21:43 72-year-old male presents with primary complaint of left lower leg pain around his calf.sp4 21:46 Patient apparently has significant degree dementia and not able to communicate HPI sp4 fully but denied any other symptoms on presentation with EMS, patient denies recent fall or injury. 22:23 Past medical records reveals history of CKD 4, hypertension, previous CVA, gout with sp4 baseline creatinine 3.63, history of admission for shortness of breath lethargy and weakness on 08/23/2022 at that time patient was admitted for pneumonia, hypertensive urgency, chronic kidney disease. Patient medications include formoterol, clonidine, carvedilol, amlodipine, aspirin, atorvastatin, clopidogrel, hydralazine, olanzapine, sodium bicarbonate, and Ensure. Today patient has difficulty explaining the nature of his complaints but denied any other complaints except for the left lower leg pain. Historical: - Allergies: 19:46 Unable to obtain; bb - Immunization history:: unknown. - Social history:: Smoking status: unknown. - Family history:: not pertinent. ROS: 21:46 Constitutional: Negative for fever, chills, and weight loss, Cardiovascular: Negative sp4 for chest pain, palpitations, and edema, Respiratory: Negative for shortness of breath, cough, wheezing, and pleuritic chest pain, Abdomen/GI: Negative for abdominal pain, nausea, vomiting, diarrhea, and constipation, Back: Negative for injury and pain, MS/Extremity: Negative for injury , left lower leg pain around the left calf and difficulty walking that is present for at least 2 weeks Skin: Negative for injury, rash, and discoloration. 21:46 All other systems are negative. Exam: 21:46 Constitutional: This is a well developed, well nourished patient who is awake, alert, sp4 and in no acute distress. Frail elderly man in no acute distress signs of moderate physical deconditioning and diffuse muscular atrophy able to ambulate with assistance Head/Face: Normocephalic, atraumatic. Eyes: Pupils equal round and reactive to light, extra-ocular motions intact. Lids and lashes normal. Conjunctiva and sclera are non-icteric and not injected. Cornea within normal limits. Periorbital areas with no swelling, redness, or edema. ENT: Nares patent. No nasal discharge, no septal abnormalities noted. Tympanic membranes are normal and external auditory canals are clear. Oropharynx with no redness, swelling, or masses, exudates, or evidence of obstruction, uvula midline. Mucous membranes moist. Neck: Trachea midline, no thyromegaly or masses palpated, and no cervical lymphadenopathy. Supple, full range of motion without nuchal rigidity, or vertebral point tenderness. No Meningismus. Chest/axilla: Normal chest wall appearance and motion. Nontender with no deformity. No lesions are appreciated. Cardiovascular: Regular rate and rhythm with a normal S1 and S2. No gallops, murmurs, or rubs. Normal PMI, no JVD. No pulse deficits. Respiratory: Lungs have equal breath sounds bilaterally, clear to auscultation and percussion. No rales, rhonchi or wheezes noted. No increased work of breathing, no retractions or nasal flaring. Abdomen/GI: Soft, non-tender, with normal bowel sounds. No distension or tympany. No guarding or rebound. No evidence of tenderness throughout. Back: No spinal tenderness. No costovertebral tenderness. Skin: Warm, dry with normal turgor. Normal color with no rashes, no lesions, and no evidence of cellulitis. MS/ Extremity: Pulses equal, no cyanosis. Neurovascular intact. Diffuse muscular atrophy associated with physical deconditioning, difficulty with ambulation but ambulates with assistance Neuro: Awake and alert, oriented to self and location cranial nerves II-XII grossly intact. Motor strength 5/5 in all extremities. Sensory grossly intact. Ambulates with assistance no sign all the lateralizing motor deficit Psych: Awake, alert, with orientation to person, place 23:05 ECG was reviewed by the Attending Physician. There is muscle tremor artifact, EKG done sp4 at 2231, there is sinus rhythm with sinus arrhythmia, no ST elevation significant muscle tremor artifact present no ventricular ectopy. Vital Signs: 19:44 BP 149 / 77; Pulse 79; Resp 16 S; Pulse Ox 100% on R/A; Pain 5/10; bb 20:11 Temp 97.8(O); Weight 72.57 kg (R); Height 5 ft. 9 in. (175.26 cm) (R); bb 22:05 BP 147 / 98; Pulse 87; Resp 18; Pulse Ox 100% on R/A; Pain 7/10; pf1 23:00 BP 136 / 73; Pulse 72; Resp 18; Pulse Ox 99% on R/A; Pain 5/10; pf1 09/19 00:00 BP 148 / 72; Pulse 64; Resp 18; Pulse Ox 99% ; Pain 4/10; pf1 09/18 20:11 Body Mass Index 23.63 (72.57 kg, 175.26 cm) bb MDM: 09/18 19:53 Patient medically screened. sp4 21:46 Differential diagnosis: closed fracture, contusion, abrasion, tendonitis. Data sp4 reviewed: vital signs, nurses notes. 09/19 00:25 Data reviewed: lab test result(s), EKG, radiologic studies, plain films, ultrasound. sp4 Consideration of Admission/Observation Escalation of care including admission/observation considered. Management of patient was discussed with the following: Discussed with patient's family. ED course: Ultrasound of left lower extremity revealed no sign of DVT, renal function is at baseline, no other emergent problems were found on evaluation, patient is stable for discharge home with as needed tramadol for his leg pain, patient has diffuse physical deconditioning and muscular atrophy which likely contributes to the lower extremity pain. 09/18 21:41 Order name: Basic Metabolic Panel 4 09/18 21:41 Order name: CBC with Diff sp4 09/18 21:41 Order name: LFT's sp4 09/18 21:41 Order name: Magnesium sp4 09/18 21:41 Order name: NT PRO-BNP 4 09/18 21:41 Order name: PT-INR sp4 09/18 21:41 Order name: Troponin HS sp4 09/18 21:41 Order name: XRAY Chest (1 view) 4 09/18 21:41 Order name: EKG; Complete Time: 21:42 sp4 09/18 21:41 Order name: Cardiac monitoring; Complete Time: 22:45 sp4 09/18 21:41 Order name: EKG - Nurse/Tech; Complete Time: 22:45 sp4 09/18 21:41 Order name: IV Saline Lock; Complete Time: 22:45 sp4 09/18 21:41 Order name: Labs collected and sent; Complete Time: 22:45 sp4 09/18 21:41 Order name: O2 Per Protocol; Complete Time: 22:45 sp4 09/18 21:41 Order name: O2 Sat Monitoring; Complete Time: 22:45 sp4 09/18 21:41 Order name: D-Dimer sp4 09/18 23:01 Order name: Protime (+INR); Complete Time: 23:16 EDMS 09/18 23:02 Order name: CBC with Automated Diff; Complete Time: 23:16 EDMS 09/18 23:03 Order name: D-Dimer; Complete Time: 23:16 EDMS 09/18 23:39 Order name: Basic Metabolic Panel; Complete Time: 23:57 EDMS 09/18 23:39 Order name: Liver (Hepatic) Function; Complete Time: 23:57 EDMS 09/18 23:39 Order name: Troponin High Sensitivity; Complete Time: 23:57 EDMS 09/18 23:39 Order name: NT PRO-BNP; Complete Time: 23:57 EDMS 09/18 23:39 Order name: Magnesium; Complete Time: 23:57 EDMS 09/19 00:01 Order name: Extremity Venous Uni Ltd sp4 EC/06 23:05 Rate is 64 beats/min. Rhythm is regular. QRS [place] is Normal. No ST changes noted. sp4 Clinical impression: No evidence of ischemia. Interpreted by me. Administered Medications: 22:40 Drug: HYDROcodone-acetaminophen 5 mg-325 mg 1 tabs Route: PO; pf1 23:40 Follow up: Response: No adverse reaction; Marked relief of symptoms; Pain is decreased; pf1 RASS: Alert and Calm (0) 23:00 Drug: Ibuprofen 800 mg Route: PO; pf1 09/19 00:00 Follow up: Response: No adverse reaction; Marked relief of symptoms; Pain is decreased pf1 09/18 23:00 Drug: Aspirin Chewable Tablet 324 mg Route: PO; pf1 09/19 00:00 Follow up: Response: No adverse reaction; Marked relief of symptoms; Pain is decreased pf1 Disposition Summary: 09/19/22 00:27 Discharge Ordered Location: Home sp4 Problem: chronic sp4 Symptoms: are unchanged sp4 Condition: Stable sp4 Diagnosis - Acute exacerbation of chronic left lower extremity pain, exacerbation of chronic sp4 pain, physical deconditioning, diffuse muscular atrophy, chronic kidney disease stage IV, normal aging, physical debility Followup: sp4 - With: Private Physician - When: 7 - 10 days - Reason: Re-evaluation by your physician Discharge Instructions: - Discharge Summary Sheet sp4 - Neuropsychological Examination sp4 Forms: - Thank You Letter sp4 - Prescription Opioid Use sp4 Prescriptions: - Tramadol 50 mg Oral Tablet - take 1 tablet by ORAL route every 8 hours as needed; 20 tablet; Refills: 0, sp4 Product Selection Permitted Signatures: Dispatcher [employer] Angélica Gallo RN RN bb finley, Pamala, RN RN pf1 Joaquin Lord MD MD sp4
--- NOTE | 2022-09-19 00:28 | ER ---
Nurse's Notes [facility] Name: Aravind Low Age: 72 yrs Sex: Male : 1950 Arrival Date: 09/18/2022 Time: 19:43 Bed 6 Private MD: Diagnosis: Acute exacerbation of chronic left lower extremity pain, exacerbation of chronic pain, physical deconditioning, diffuse muscular atrophy, chronic kidney disease stage IV, normal aging, physical debility Presentation: 09/18 19:44 Chief complaint: EMS states: pt toned out for report of leg pain 11/22. Coronavirus bb screen: At this time, the client does not indicate any symptoms associated with coronavirus-19. Ebola Screen: No symptoms or risks identified at this time. Initial Sepsis Screen: Does the patient meet any 2 criteria? No. Patient's initial sepsis screen is negative. Does the patient have a suspected source of infection? No. Patient's initial sepsis screen is negative. Risk Assessment: Do you want to hurt yourself or someone else? Patient reports no desire to harm self or others. Onset of symptoms was September 18, 2022. 19:44 Method Of Arrival: EMS: [facility] bb 19:44 Acuity: ANTONIO 4 bb Historical: - Allergies: 19:46 Unable to obtain; bb - Immunization history:: unknown. - Social history:: Smoking status: unknown. - Family history:: not pertinent. Screenin:[address] [facility] ED Fall Risk Assessment (Adult) History of falling in the last 3 months, pf1 including since admission Yes- single mechanical fall (1 pt) Confusion or Disorientation No (0 pts) Intoxicated or Sedated No (0 pts) Impaired Gait Yes (1 pt) Mobility Assist Device Used Yes (1 pt) Altered Elimination Yes (1 pt) Score/Fall Risk Level 3 or more points = High Risk Oriented to surroundings, Maintained a safe environment, Educated pt \T\ family on fall prevention, incl call for assistance when getting out of bed, Assessed \T\ reinforced patient's understanding of fall precautions, Provided non-skid footwear, Hourly rounding (assess needs \T\ fall precautionary measures) done, Used ambulatory aids as needed (educated on \T\ assisted with), Used gait belt as appropriate Implemented a Fall Risk Plan of Care, Apply high fall risk patient identification: yellow non skid footwear/ fall signage, Remained w/in arm's length of patient and in sight while toileting, Offered frequent toileting (1:1 observation), Remained with patient while ambulating. 22:10 Abuse screen: Denies threats or abuse. Nutritional screening: No deficits noted. pf1 Tuberculosis screening: No symptoms or risk factors identified. Assessment: 22:10 General: Appears in no apparent distress. comfortable, slender, well groomed, well pf1 developed, Behavior is calm, cooperative, appropriate for age, quiet. 22:10 Pain: Complains of pain in left leg Pain currently is 7 out of 10 on a pain scale. Pain pf1 began several weeks. 22:10 Neuro: No deficits noted. Level of Consciousness is awake, alert, obeys commands. pf1 Cardiovascular: No deficits noted. Capillary refill < 3 seconds Patient's skin is warm and dry. Respiratory: No deficits noted. Airway is patent Trachea midline Respiratory effort is even, unlabored, Respiratory pattern is regular, symmetrical, Breath sounds are clear bilaterally. GI: No deficits noted. No signs and/or symptoms were reported involving the gastrointestinal system. : No deficits noted. No signs and/or symptoms were reported regarding the genitourinary system. EENT: No deficits noted. No signs and/or symptoms were reported regarding the EENT system. Derm: No deficits noted. No signs and/or symptoms reported regarding the dermatologic system. 22:10 Musculoskeletal: Reports pain in left leg Pain is 7 out of 10 on a pain scale. pf1 23:00 Reassessment: Patient appears in no apparent distress at this time. Patient and/or pf1 family updated on plan of care and expected duration. Pain level reassessed. Patient is alert, oriented x 3, equal unlabored respirations, skin warm/dry/pink. Patient states feeling better. Patient states symptoms have improved. 09/19 00:00 Reassessment: Patient appears in no apparent distress at this time. No changes from pf1 previously documented assessment. Patient and/or family updated on plan of care and expected duration. Pain level reassessed. Patient is alert, oriented x 3, equal unlabored respirations, skin warm/dry/pink. Patient states feeling better. Patient states symptoms have improved. Vital Signs: 09/18 19:44 BP 149 / 77; Pulse 79; Resp 16 S; Pulse Ox 100% on R/A; Pain 5/10; bb 20:11 Temp 97.8(O); Weight 72.57 kg (R); Height 5 ft. 9 in. (175.26 cm) (R); bb 22:05 BP 147 / 98; Pulse 87; Resp 18; Pulse Ox 100% on R/A; Pain 7/10; pf1 23:00 BP 136 / 73; Pulse 72; Resp 18; Pulse Ox 99% on R/A; Pain 5/10; pf1 03 00:00 BP 148 / 72; Pulse 64; Resp 18; Pulse Ox 99% ; Pain 4/10; pf1 03 20:11 Body Mass Index 23.63 (72.57 kg, 175.26 cm) bb ED Course: 09/18 19:43 Patient arrived in ED. bb 19:46 Triage completed. bb 19:46 Arm band placed on Patient placed lobby. bb 19:52 Joaquin Lord MD is Attending Physician. sp4 22:34 Sugey ventura RN is Primary Nurse. pf1 22:45 Basic Metabolic Panel Sent. rv1 22:45 CBC with Diff Sent. rv1 22:45 LFT's Sent. rv1 22:45 Magnesium Sent. rv1 22:45 NT PRO-BNP Sent. rv1 22:45 D-Dimer Sent. rv1 22:45 PT-INR Sent. rv1 22:45 Troponin HS Sent. rv1 22:46 Inserted saline lock: 20 gauge in left antecubital area, using aseptic technique. bc6 23:00 Patient has correct armband on for positive identification. pf1 09/19 00:40 No provider procedures requiring assistance completed. IV discontinued, intact, pf1 bleeding controlled, No redness/swelling at site. Pressure dressing applied. Administered Medications: 09/18 22:40 Drug: HYDROcodone-acetaminophen 5 mg-325 mg 1 tabs Route: PO; pf1 23:40 Follow up: Response: No adverse reaction; Marked relief of symptoms; Pain is decreased; pf1 RASS: Alert and Calm (0) 23:00 Drug: Ibuprofen 800 mg Route: PO; pf1 09/19 00:00 Follow up: Response: No adverse reaction; Marked relief of symptoms; Pain is decreased pf1 09/18 23:00 Drug: Aspirin Chewable Tablet 324 mg Route: PO; pf1 09/19 00:00 Follow up: Response: No adverse reaction; Marked relief of symptoms; Pain is decreased pf1 Medication: 00:41 VIS not applicable for this client. pf1 Outcome: 00:27 Discharge ordered by . sp4 00:41 Discharged to home via wheelchair, with family. pf1 00:41 Condition: improved 00:41 Discharge instructions given to patient, family, Instructed on discharge instructions, follow up and referral plans. Demonstrated understanding of instructions, follow-up care, medications, Prescriptions given X 1. 00:41 Patient left the ED. pf1 Signatures: Angélica Mejia RN RN Sugey vega RN RN pf1 Kenna Lyons rv1 Darshana King 6 Joaquin Lord MD MD sp4
[2022-09-19 01:48] VITALS: O2SAT 100
[2022-09-19 01:55] VITALS: TEMP 97.8
[2022-09-19 02:01] VITALS: BP 147/98
--- NOTE | 2022-09-19 15:10 | RAD REPORT ---
EXAM DESCRIPTION: RAD - Chest Single View - 09/18/2022 10:48 pm CLINICAL HISTORY: The patient is 72 years old and is Male; COUGH TECHNIQUE: Frontal view of the chest. COMPARISON: Exam September 02, 2022 FINDINGS: LUNGS: Unremarkable. No consolidation. PLEURAL SPACE: Unremarkable. No pneumothorax. HEART: Unremarkable. No cardiomegaly. MEDIASTINUM: Unremarkable. BONES/JOINTS: Unremarkable. VASCULATURE: Atherosclerosis of the aorta is present. A vascular graft projects in the region of the right subclavian. UPPER ABDOMEN: Unremarkable as visualized. IMPRESSION: No acute cardiopulmonary process. 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 The interpreting radiologist is fully responsible for the content of the report.
--- NOTE | 2022-09-19 15:27 | RAD REPORT ---
EXAM DESCRIPTION: US - Extremity Venous Uni Ltd - 09/19/2022 12:27 am CLINICAL HISTORY: The patient is 72 years old and is Male; PAIN TECHNIQUE: Real-time duplex ultrasound scan of the left lower extremity veins integrating B-mode two -dimensional vascular structure, Doppler spectral analysis, color flow Doppler imaging and compressio n. COMPARISON: No relevant prior studies available. FINDINGS: DEEP VEINS: Unremarkable. No DVT in the visualized common femoral, femoral, proximal deep femoral or popliteal veins. The veins demonstrate normal color flow, are normally compressible , with normal phasic flow and/or augmentation response. SUPERFICIAL VEINS: Unremarkable. No thrombus in the visualized great saphenous vein. IMPRESSION: Unremarkable left lower extremity duplex venous ultrasound. 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 The interpreting radiologist is fully responsible for the content of the report.
--- NOTE | 2022-09-19 17:33 | EKG ---
Test Date: 2022-09-18 Test Time: 22:31:15 Dent Remover: RV MEASUREMENT RESULTS: Intervals: Rate: 64 MO: 186 QRSD: 70 QT: 406 QTc: 418 [place]atum: P: MO: 186 QRS: 79 T: 55 INTERPRETIVE STATEMENTS: Sinus rhythm with marked sinus arrhythmia ST elevation, consider early repolarization, pericarditis, or injury Nonspecific ST and T wave abnormality Abnormal ECG Compared to ECG 09/02/2022 23:07:16 No significant changes Electronically Signed On 09-19-22 17:31:06 POT SANDER by Clark Fuller
== END 2022-09-19 00:41 | disposition home or self-care (01) ==
LOC: ER 19:40
DX: M79.662 Pain in left lower leg (principal); G89.29 Other chronic pain; M62.50 Muscle wasting and atrophy, not elsewhere classified, unspecified site; I12.9 Hypertensive chronic kidney disease with stage 1 through stage 4 chronic kidney disease, or unspecified chronic kidney disease; N18.4 Chronic kidney disease, stage 4 (severe); R54 Age-related physical debility
CPT/HCPCS: 36415; 71045; 80048; 80076; 83735; 83880; 84484; 85025; 85379; 85610; 93005; 93971; 99284

== ENCOUNTER 2022-09-22 11:54 | Emergency (ER) | payer OTHER ==
--- OUTSIDE RECORDS SUMMARY | 2022-09-22 12:03 | XMS REPORT | Continuity of Care Document ---
:1950 Author Organization [facility] t Address [address] [place] [address] Care Team Providers Name Role Phone SHARPLESS Primary Care Physician Unavailable AIMEE MCCULLOUGH Attending Clinician Unavailable Aimee Mccullough MD Attending Clinician Demetrius Larkin MD Attending Clinician DEMETRIUS LARKIN Attending Clinician Unavailable FARZAD JACKSON Attending Clinician Unavailable DEMETRIUS LARKIN Admitting Clinician Unavailable FARZAD JACKSON Admitting Clinician Unavailable Payers Payer Name Policy Type Policy Number Effective Date Expiration Date S arielle MEDICARE PART A [id number] \\T\\ [id number] - MEDICARE INDEMNITY - C[employer] [id number] MEDICARE A B [id number] 2017 00:00:00 Problems Condition Condition Condition Status Onset Resolution Last Treating Co mments Source Name Details Category Date Date Treatment Clinician Date Smoking Smoking Disease Recurre [facility] 1/2 pack a 1/2 pack a nce 5-20 Co llege day or day or 00:00: of less less 00 Medicin e Renal cell Renal cell Disease Active Overview : [facility] cancer, cancer, 3-27 [facility] left left 00:00: g of this of 00 note Medicin might be e different from the original. S/P L LAP RADICAL NEPHRECTO MY AT Pre-op Pre-op Disease Active [facility] Renal Renal Disease Active [facility] mass, left mass, left 3-27 Sharmaine kes 00:00: Medical 00 [place] Essential Essential Disease Active [facility] hypertensi hypertensi 2-08 Co llege on on [...] d laterality laterality Kidney Kidney Disease Active [facility] Disease Active Overview: [facility] (chronic (chronic Formattin Col [...] Clinician NO KNOWN Allergy Active NEENA [facility] Social History Social Habit Start Date Stop Date Quantity Comments Source History of tobacco Cigarette Smoker [facility] use of Medicine Tobacco Comment 2022-07-24 2022-07-24 20+ years [facility] Co llege 00:00:00 00:00:00 of Medicine Alcohol intake 2017-10-10 2017-10-10 [facility] of alcohol [facility] (finding) Cigarettes smoked 2017-03-02 2017-03-[address] [facility] current (pack per 00:00:00 00:00:00 Medical Center day) - Reported Tobacco use and 2017-03-02 2017-03-[address] [facility] Sharmaine kes exposure 00:00:00 00:00:00 [facility] Center Sex Assigned At [address] Sharmaine kes 00:00:00 00:00:00 Medical Center Smoking Status Start Date Stop Date Source Smokes tobacco daily 2022-07-24 00:00:00 [facility] Medications Ordered Filled Start Stop [...] DAY e Tamsulosin Yes .4mg Take 0.4 [facility] HCl 0.4 MG 1-25 mg by [employer] CAPS 00:00: mouth of 00 daily. Medicin [...] ION). Tamsulosin 2020- Yes .4mg Take 0.4 [facility] HCl 0-21 mg by College (FLOMAX) 00:00: mouth of 0.4 MG CAPS 00 daily. Medici n e Tamsulosin 2020-1 Yes .4mg Take 0.4 [facility] HCl 0-21 mg by College (FLOMAX) 00:00: mouth of 0.4 MG CAPS 00 daily. Medici n e Tamsulosin 2020-1 Yes .4mg Take 0.4 [facility] HCl 0-21 mg by College (FLOMAX) 00:00: mouth of 0.4 MG CAPS 00 daily. Medici n e Tamsulosin 2020-1 Yes .4mg Take 0.4 [facility] HCl 0-21 mg by College (FLOMAX) [...] clopidogrel 2020-0 Yes 75mg Take 1 Tab [facility] (PLAVIX) 75 7-16 by mouth Ernestine e[facility] MG Tablet 00:00: daily. of 00 Medicin e clopidogrel 2020-0 Yes 75mg Take 1 Tab [facility] (PLAVIX) 75 7-16 by [...] clopidogrel 2020-0 Yes 75mg Take 1 Tab [facility] (PLAVIX) 75 7-16 by [...] atorvastati 2020-0 Yes 40mg Take 1 Tab [facility] n (LIPITOR) 7-16 by mouth [facility]estine ege 40 MG 00:00: daily. By of tablet 00 bedtime Medicin e clopidogrel 2020-0 Yes 75mg Take 1 Tab [facility] (PLAVIX) 75 01-28 by mouth Ernestine ege MG Tablet 00:00: daily. of 00 Medicin e clonidine 2019- 2020- No .2mg Take 1 Tab [facility] (CATAPRESS) 01-28 by mouth Col lege 0.2 MG 00:00: 00:00 two times of tablet 00 :00 daily. Medicin e amlodipine 2020- No 10mg Take 1 Tab [facility] (NORVASC) 01-28 by mouth Colle ge 10 MG 00:00: 00:00 daily. of tablet 00 :00 Medicin e cloNIDine 2017-0 Yes .3mg Q.[id number] Take 0.[address] [facility] HCl 4- [id number] mg by [facility] (CATAPRES) 03:27: 3D mouth [...] tablet 05 Center cloNIDine 2017-0 Yes .3mg Q.[id number] Take 0.[address] [facility] HCl 4-01 [id number] mg by [facility] (CATAPRES) 03:27: 3D mouth [...] tablet 05 Center cloNIDine 2017-0 Yes .3mg Q.[id number] Take 0.[address] [facility] HCl 4-01 [id number] mg by [facility] (CATAPRES) 03:27: 3D mouth 3 Medi jennifer 0.3 MG 05 (three) Center tablet times daily. furosemide 2018-0 Yes 40mg Take [address] (LASIX) 40 4-01 by mouth [facility] MG tablet 03:27: every Medical 05 other day. [place] amLODIPine 2018-0 Yes 10mg QD Take [address] (NORVASC) 4-01 by mouth [facility] 10 MG 03:27: daily. Medical tablet 05 [place] cloNIDine 2018-0 Yes .3mg Q.[id number] Take 0.[address] [facility] HCl 4-01 [id number] mg by [facility] (CATAPRES) 03:27: 3D mouth 3 Medi jennifer 0.3 MG 05 (three) Center tablet times daily. furosemide 2018-0 Yes 40mg Take [address] (LASIX) 40 4-01 by mouth [facility] MG tablet 03:27: every Medical 05 other day. [place] amLODIPine 2018-0 Yes 10mg QD Take [address] (NORVASC) 4-01 by mouth [facility] 10 MG 03:27: daily. Medical tablet 05 [place] cloNIDine 2018-0 Yes .3mg Q.[id number] Take 0.[address] [facility] HCl 4-01 [id number] mg by [facility] (CATAPRES) 03:27: 3D mouth 3 Medi jennifer 0.3 MG 05 (three) Center tablet times daily. furosemide 2018-0 Yes 40mg Take [address] (LASIX) 40 4-01 by mouth [facility] MG tablet 03:27: every Medical 05 other day. [place] amLODIPine 2018-0 Yes 10mg QD Take [address] (NORVASC) 4-01 by mouth [facility] 10 MG 03:27: daily. Medical tablet 05 [place] cloNIDine 2018-0 Yes .3mg Q.[id number] Take 0.[address] [facility] HCl 4-01 [id number] mg by [facility] (CATAPRES) 03:27: 3D mouth 3 Medi jennifer 0.3 MG 05 (three) Center tablet times daily. furosemide 2018-0 Yes 40mg Take [address] (LASIX) 40 4-01 by mouth [facility] MG tablet 03:27: every Medical 05 other day. [place] amLODIPine 2018-0 Yes 10mg QD Take [address] (NORVASC) 4-01 by mouth [facility] 10 MG 03:27: daily. Medical tablet 05 [place] cloNIDine 2018-0 Yes .3mg Q.[id number] Take 0.[address] [facility] HCl 4-01 [id number] mg by [facility] (CATAPRES) 03:27: 3D mouth [...] tablet 05 Center cloNIDine 2018-0 Yes .3mg Q.[id number] Take 0.[address] [facility] HCl 4-01 [id number] mg by [facility] (CATAPRES) 03:27: 3D mouth 3 Medi jennifer 0.3 MG 05 (three) Center tablet times daily. furosemide 2018-0 Yes 40mg Take [address] (LASIX) 40 4-01 by mouth [facility] MG tablet 03:27: every Medical 05 other day. [place] amLODIPine 2018-0 Yes 10mg QD Take [address] (NORVASC) 4-01 by mouth [facility] 10 MG 03:27: daily. Medical tablet 05 [place] cloNIDine 2018-0 Yes .3mg Q.[id number] Take 0.[address] [facility] HCl 4-01 [id number] mg by [facility] (CATAPRES) 03:27: 3D mouth 3 Medi jennifer 0.3 MG 05 (three) Center tablet times daily. cloNIDine 2018-0 Yes .3mg Q.[id number] Take 0.[address] [facility] HCl 4-01 [id number] mg by [facility] (CATAPRES) 03:27: 3D mouth [...] MG 03:27: daily. Medical tablet 05 Center furosemide 2018-0 Yes 40mg Take [address] (LASIX) 40 4-01 by mouth [facility] MG tablet 03:27: every Medical 05 other day. Center amLODIPine 2018-0 Yes 10mg QD Take [address] (NORVASC) 4-01 by mouth [facility] 10 MG 03:27: daily. Medical tablet 05 [place] cloNIDine 2018-0 Yes .3mg Q.[id number] Take 0.[address] [facility] [address] HCl 4-01 [id number] mg by [facility] (CATAPRES) 03:27: 3D mouth 3 Medi jennifer 0.3 MG 05 (three) Center tablet times daily. furosemide 2018-0 Yes 40mg Take [address] (LASIX) 40 4-01 by mouth [facility] MG tablet 03:27: every Medical 05 other day. [place] amLODIPine 2018-0 Yes 10mg QD Take [address] (NORVASC) 4-01 by mouth [facility] 10 MG 03:27: daily. Medical tablet 05 [place] cloNIDine 2018-0 Yes .3mg Q.[id number] Take 0.[address] [facility] [address] HCl 4-01 [id number] mg by [facility] (CATAPRES) 03:27: 3D mouth 3 Medi jennifer 0.3 MG 05 (three) Center tablet times daily. furosemide 2018-0 Yes 40mg Take [address] (LASIX) 40 4-01 by mouth [facility] MG tablet 03:27: every Medical 05 other day. [place] amLODIPine 2018-0 Yes 10mg QD Take [address] (NORVASC) 4-01 by mouth [facility] 10 MG 03:27: daily. Medical tablet 05 [place] cloNIDine 2017-0 Yes .3mg Q.[id number] Take 0.[address] [facility] HCl 4-01 [id number] mg by [facility] (CATAPRES) 03:27: 3D mouth 3 Medi jennifer 0.3 MG 05 (three) Center tablet times daily. furosemide 2018-0 Yes 40mg Take [address] (LASIX) 40 4-01 by mouth [facility] MG tablet 03:27: every Medical 05 other day. [place] amLODIPine 2018-0 Yes 10mg QD Take [address] (NORVASC) 4-01 by mouth [facility] 10 MG 03:27: daily. Medical tablet 05 [place] cloNIDine 2018-0 Yes .3mg Q.[id number] Take 0.[address] [facility] HCl 4-01 [id number] mg by [facility] (CATAPRES) 03:27: 3D mouth 3 Medi jennifer 0.3 MG 05 (three) Center tablet times daily. furosemide 2018-0 Yes 40mg Take [address] (LASIX) 40 4-01 by mouth [facility] MG tablet 03:27: every Medical 05 other day. Center amLODIPine 2018-0 Yes 10mg QD Take [address] (NORVASC) 10-14 by mouth [facility] 10 MG 03:27: daily. Medical tablet 05 Center Vital Signs Vital Name Observation Time Observation Value Comments Source Systolic blood 2022-07-24 21:40:00 140 mm[Hg] [facility] Medicine Diastolic blood 2022-07-24 21:40:00 80 mm[Hg] [facility] Medicine Heart rate 2022-07-24 21:40:00 63 /min [facility] of Medicine Respiratory rate 2022-07-24 20:57:00 16 /min [facility] Body height 2022-07-24 20:57:00 160 cm [facility] Body weight 2022-07-24 20:57:00 55.974 kg [facility] BMI 2022-07-24 20:57:00 21.86 kg/m2 [facility] Body weight 2021-08-08 19:36:00 61.236 kg [facility] BMI 2021-08-08 19:36:00 23.91 [facility] Sy[facility]olic blood 2021-08-08 19:36:00 130 mm[Hg] [facility] Medicine Diastolic blood 2021-08-08 19:36:00 70 mm[Hg] [facility] Medicine Heart rate 2021-08-08 19:36:00 82 /min [facility] Medicine Respiratory rate 2021-08-08 19:36:00 16 /min [facility] Body height 2021-08-08 19:36:00 160 cm [facility] Medicine Systolic blood 2021-04-05 18:18:00 130 mm[Hg] [facility] Medicine Diastolic blood 2021-04-05 18:18:00 80 mm[Hg] [facility] Medicine Heart rate 2021-04-05 18:18:00 75 /min [facility] Medicine Respiratory rate 2021-04-05 18:18:00 16 /min [facility] Body height 2021-04-05 18:18:00 160 cm [facility] of [facility] Body weight 2021-04-05 18:18:00 62.869 kg [facility] BMI 2021-04-05 18:18:00 24.55 kg/m2 [facility] Systolic blood 2020-10-07 19:41:00 157 mm[Hg] [facility] pressure Medicine Diastolic blood 2020-10-07 19:41:00 82 mm[Hg] [facility] Medicine Heart rate 2020-10-07 19:41:00 51 /min [facility] Respiratory rate 2020-10-07 19:41:00 17 /min [facility] Body height 2020-05-05 14:26:00 160 cm [facility] of [facility] Body weight 2020-05-05 14:26:00 68.04 kg [facility] BMI 2020-05-05 14:26:00 26.57 [facility] 2020-05-05 14:26:00 159 mm[Hg] [facility] pressure Medicine Diastolic blood 2020-05-05 14:26:00 78 mm[Hg] [facility] Medicine Heart rate 2020-05-05 14:26:00 59 /min [facility] Body temperature 2020-05-05 14:26:00 36.61 Viky [facility] Respiratory rate 2020-05-05 14:26:00 18 /min [facility] Systolic blood 2020-04-05 18:17:00 144 mm[Hg] [facility] pressure Medicine Diastolic blood 2020-04-05 18:17:00 82 mm[Hg] [facility] Medicine Heart rate 2020-04-05 18:17:00 56 /min [facility] of [facility] Body temperature 2020-04-05 18:17:00 36.44 Viky [facility] Respiratory rate 2020-04-05 18:17:00 16 /min [facility] Body height 2020-04-05 18:17:00 162.6 cm [facility] Body weight 2020-04-05 18:17:00 64.411 kg [facility] BMI 2020-04-05 18:17:00 24.37 kg/m2 [facility] Procedures Procedure Date / Time Performing Clinician Source Performed CBC W/O DIFF W PLT 2022-07-24 15:46:00 [facility] COMPREHENSIVE METABOLIC 2022-07-24 15:46:00 [facility] PTH INTACT 2022-07-24 15:46:00 [facility] PHOSPHORUS 2022-07-24 15:46:00 [facility] VITAMIN D 25 HYDROXY 2022-07-24 15:46:00 [facility] POCT URINALYSIS DIPSTICK 2020-10-07 00:00:00 Demetrius Larkin [facility] POCT URINALYSIS DIPSTICK 2020-05-05 00:00:00 Demetrius Larkin [facility] Plan of Care Planned Activity Planned Date Details Comments Source Future Scheduled 2022-07-24 CBC W/O DIFF W PLT Ordered: [employer] Test 15:28:22 [code = 6690-2] 07/24/2022 of [facility] Future Scheduled 2022-07-24 COMPREHENSIVE Ordered: [facility] Test 15:28:22 METABOLIC PANEL 07/24/2022 of [facility] [code = 95608-3] Future Scheduled 2022-07-24 PTH INTACT [code = Ordered: [employer] Test 15:28:22 2731-8] 07/24/2022 of [facility] Future Scheduled 2022-07-24 PHOSPHORUS [code = Ordered: [employer] Test 15:28:22 2777-1] 07/24/2022 of [facility] Future Scheduled 2022-07-24 VITAMIN D 25 HYDROXY Ordered: [facility] [employer] Test 15:28:22 [code = 1989-3] 07/24/2022 of [facility] Future Scheduled 2022-07-24 Screening for [facility] Test 14:59:21 malignant neoplasm of Medici ne of colon (procedure) [code = 225204633] Future Scheduled 2022-07-24 Pneumococcal 65+ (1 [employer] Test 14:59:21 - PCV) [code = of Medicine Pneumococcal 65+ (1 - PCV)] Future Scheduled 2022-07-24 TETANUS SHOT (ADULT) [employer] Test 14:59:21 [code = TETANUS SHOT of Medi cine (ADULT)] Future Scheduled 2022-07-24 ZOSTER VACCINE (1 of [employer] Test 14:59:21 2) [code = ZOSTER of Medicin e VACCINE (1 of 2)] Future Scheduled 2022-07-24 Medicare Awv [facility] Test 14:59:21 (Initial) [code = of Medicin e Medicare Awv (Initial)] Future Scheduled 2022-07-24 Abdominal aortic [facility] College Test 14:59:21 aneurysm screening of Medici ne (procedure) [code = 973278071] Future Scheduled 2022-07-24 Fall Screen [code = [employer] Test 14:59:21 Fall Screen] of Medicine Future Scheduled 2022-07-24 COVID-19 Vaccine (3 [employer] Test 14:59:21 - Booster for Pfizer of Medi cine series) [code = COVID-19 Vaccine (3 - Booster for Pfizer series)] Future Scheduled 2022-07-24 FLU VACCINE > 6 [facility] C [facility]lege Test 14:59:21 MONTHS [code = [...] 2021-08-08 CBC W/O DIFF W PLT Ordered: [employer] [facility] Test 14:06:14 [code = 6690-2] 08/08/2021 of Medicine Future Scheduled 2021-08-08 COMPREHENSIVE Ordered: [employer] Test 14:06:14 METABOLIC PANEL 08/08/2021 of Medicine [code = 96891-1] Future Scheduled 2021-08-08 FERRITIN [code = Ordered: [employer] Test 14:06:14 34238-8] 08/08/2021 of Medicine Future Scheduled 2021-08-08 IRON+TIBC+%SAT [code Ordered: [employer] Test 14:06:14 = NOCPT] 08/08/2021 of Medicine Future Scheduled 2021-08-08 PHOSPHORUS [code = Ordered: [employer] [facility] Test 14:06:14 2777-1] 08/08/2021 of Medicine Future Scheduled 2021-08-08 PTH INTACT [code = Ordered: [employer] Test 14:06:14 2731-8] 08/08/2021 of Medicine Future Scheduled 2021-08-08 VITAMIN D 25 HYDROXY Ordered: [employer] Test 14:06:14 [code = 1989-3] 08/08/2021 of Medicine Future Scheduled 2021-08-08 MICROALBUMIN/CREAT Ordered: [employer] [facility] Test 14:06:14 URINE RATIO [code = 08/08/2021 of Medic ine 9318-7] Future Scheduled 2021-08-08 Screening for [facility] Col [facility]ge Test 13:35:31 malignant neoplasm of Medici ne of colon (procedure) [code = 995871304] Future Scheduled 2021-08-08 TETANUS SHOT (ADULT) [employer] Test 13:35:31 [code = TETANUS SHOT of Medi cine (ADULT)] Future Scheduled 2021-08-08 ZOSTER VACCINE (1 of [employer] Test 13:35:31 2) [code = ZOSTER of Medicin e VACCINE (1 of 2)] Future Scheduled 2021-08-08 MEDICARE AWV [facility] Test 13:35:31 (Initial) [code = of Medicin e MEDICARE AWV (Initial)] Future Scheduled 2021-08-08 Abdominal aortic [facility] Test 13:35:31 aneurysm screening of Medici ne (procedure) [code = 409861189] Future Scheduled 2021-08-08 FALL SCREEN [code = [employer] Test 13:35:31 FALL SCREEN] of Medicine Future Scheduled 2021-08-08 Pneumococcal 65+ (1 [employer] Test 13:35:31 of 1 - PPSV23) [code of Medi cine = Pneumococcal 65+ (1 of 1 - PPSV23)] Future Scheduled 2021-08-08 FLU VACCINE > 6 [facility] C [facility] Test 13:35:31 MONTHS [...] Expires: 08/09/2021 Future Scheduled 2021-05-09 COMPREHENSIVE Expected: [facility] Col [facility]ge Test 00:00:00 METABOLIC PANEL 05/09/2021 of Medicine [code = 13915-1] (Approximate), Expires: 06/09/2021 Future Scheduled 2021-05-09 CBC W/AUTO DIFF WITH Expected: [employer] Test 00:00:00 PLATELETS [code = 05/09/2021 of Medicin e 01173-8] (Approximate), Expires: 06/09/2021 Future Scheduled 2021-04-05 CBC W/AUTO DIFF WITH Ordered: [employer] Test 13:38:59 PLATELETS [code = 04/05/2021 of Medicin e 22158-0] Future Scheduled 2021-04-05 COMPREHENSIVE Ordered: [facility] Col [facility]ge Test 13:38:59 METABOLIC PANEL 04/05/2021 of Medicine [code = 68096-7] Future Scheduled 2021-04-05 FERRITIN [code = Ordered: [facility] Test 13:38:59 78436-3] 04/05/2021 of Medicine Future Scheduled 2021-04-05 IRON+TIBC+%SAT [code Ordered: [facility] Test 13:38:59 = NOCPT] 04/05/2021 of Medicine Future Scheduled 2021-04-05 PHOSPHORUS [code = Ordered: [facility] Test 13:38:59 2777-1] 04/05/2021 of Medicine Future Scheduled 2021-04-05 PTH INTACT [code = Ordered: [facility] Test 13:38:59 2731-8] 04/05/2021 of Medicine Future Scheduled 2021-04-05 RANDOM URINE Ordered: [facility] [employer] Test 13:38:59 PROTEIN/CREATININE 04/05/2021 of Medici ne [code = 2890-2] Future Scheduled 2021-04-05 MICROALBUMIN/CREAT Ordered: [facility] Test 13:38:59 URINE RATIO [code = 04/05/2021 of Medic ine 9318-7] Future Scheduled 2021-04-05 VITAMIN D 25 HYDROXY Ordered: [facility] Test 13:38:59 [code = 1989-3] 04/05/2021 of Medicine Future Scheduled 2021-04-05 ANTI NEUTROPHIL Ordered: [facility] Test 13:38:59 CYTOPLASMIC ANTIBODY 04/05/2021 of Medi cine [code = 41167] Future Scheduled 2021-04-05 CBC W/AUTO DIFF WITH Ordered: [employer] Test 13:38:59 PLATELETS [code = 04/05/2021 of Medicin e 82930-4] Future Scheduled 2021-04-05 COMPREHENSIVE Ordered: [facility] Col [facility]ge Test 13:38:59 METABOLIC PANEL 04/05/2021 of Medicine [code = 37480-1] Future Scheduled 2021-04-05 FERRITIN [code = Ordered: [facility] Test 13:38:59 68008-0] 04/05/2021 of Medicine Future Scheduled 2021-04-05 IRON+TIBC+%SAT [code Ordered: [facility] Test 13:38:59 = NOCPT] 04/05/2021 of Medicine Future Scheduled 2021-04-05 PHOSPHORUS [code = Ordered: [facility] Test 13:38:59 2777-1] 04/05/2021 of Medicine Future Scheduled 2021-04-05 PTH INTACT [code = Ordered: [facility] Test 13:38:59 2731-8] 04/05/2021 of Medicine Future Scheduled 2021-04-05 RANDOM URINE Ordered: [facility] eg Test 13:38:59 PROTEIN/CREATININE 04/05/2021 of Medici ne [code = 2890-2] Future Scheduled 2021-04-05 MICROALBUMIN/CREAT Ordered: [facility] Test 13:38:59 URINE RATIO [code = 04/05/2021 of Medic ine 9318-7] Future Scheduled 2021-04-05 VITAMIN D 25 HYDROXY Ordered: [facility] Test 13:38:59 [code = 1989-3] 04/05/2021 of Medicine Future Scheduled 2021-04-05 ANTI NEUTROPHIL Ordered: [facility] Test 13:38:59 CYTOPLASMIC ANTIBODY 04/05/2021 of Medi cine [code = 55357] Future Scheduled 2021-04-05 Screening for [facility] Col [facility]ge Test 13:19:08 malignant neoplasm of Medici ne of colon (procedure) [code = 110026162] Future Scheduled 2021-04-05 TETANUS SHOT (ADULT) [facility] Test 13:19:08 [code = TETANUS SHOT of Medi cine (ADULT)] Future Scheduled 2021-04-05 BMI FOLLOW UP PLAN [facility] Test 13:19:08 [code = BMI FOLLOW of Medici ne UP PLAN] Future Scheduled 2021-04-05 ZOSTER VACCINE (1 of [facility] Test 13:19:08 2) [code = ZOSTER of Medicin e VACCINE (1 of 2)] Future Scheduled 2021-04-05 MEDICARE AWV [facility] Test 13:19:08 (Initial) [code = of Medicin e MEDICARE AWV (Initial)] Future Scheduled 2021-04-05 Abdominal aortic [facility] Test 13:19:08 aneurysm screening of Medici ne (procedure) [code = 709331085] Future Scheduled 2021-04-05 FALL SCREEN [code = [employer] Test 13:19:08 FALL SCREEN] of Medicine Future Scheduled 2021-04-05 PNEUMOVAX >=65 [facility] Test 13:19:08 (PPSV23) [code = of Medicine PNEUMOVAX >=65 (PPSV23)] Future Scheduled 2021-04-05 FLU VACCINE > 6 [facility] Test 13:19:08 MONTHS [code = FLU of Medici ne VACCINE > 6 MONTHS] Future Scheduled 2021-04-05 Screening for [facility] Col lege Test 13:19:08 malignant neoplasm of Medici ne of colon (procedure) [code = 146492103] Future Scheduled 2021-04-05 TETANUS SHOT (ADULT) [facility] Test 13:19:08 [code = TETANUS SHOT of Medi cine (ADULT)] Future Scheduled 2021-04-05 BMI FOLLOW UP PLAN [facility] Test 13:19:08 [code = BMI FOLLOW of Medici ne UP PLAN] Future Scheduled 2021-04-05 ZOSTER VACCINE (1 of [facility] Test 13:19:08 2) [code = ZOSTER of Medicin e VACCINE (1 of 2)] Future Scheduled 2021-04-05 MEDICARE AWV [facility] Test 13:19:08 (Initial) [code = of Medicin e MEDICARE AWV (Initial)] Future Scheduled 2021-04-05 Abdominal aortic [facility] Test 13:19:08 aneurysm screening of Medici ne (procedure) [code = 809750547] Future Scheduled 2021-04-05 FALL SCREEN [code = [employer] Test 13:19:08 FALL SCREEN] of Medicine Future Scheduled 2021-04-05 PNEUMOVAX >=65 [facility] Test 13:19:08 (PPSV23) [code = of Medicine PNEUMOVAX >=65 (PPSV23)] Future Scheduled 2021-04-05 FLU VACCINE > 6 [facility] C [facility] Test 13:19:08 [...] Diagnostic Test 2020-05-19 PSA TOTAL(URO DEPT) Expected: [facility] Pending 00:00:00 [code = 2857-1] 05/19/2020 [...] C enter of colon (procedure) [code = 907673722] Future Scheduled [address] [facility] Test 00:00:00 malignant neoplasm Medical C enter of colon (procedure) [code = 879012197] Future Scheduled [address] Test 00:00:00 malignant neoplasm Medical C enter of colon (procedure) [code = 574277491] Future Scheduled [address] [facility] 00:00:00 malignant neoplasm Medical C enter of colon (procedure) [code = 062065839] Future Scheduled 1950 Sigmoidoscopy [code [facility] Test 00:00:00 = Sigmoidoscopy] Medical [place] Future Scheduled [address] [facility] Test 00:00:00 malignant neoplasm Medical C enter of colon (procedure) [code = 731447312] Future Scheduled [address] [facility] 00:00:00 malignant neoplasm Medical C enter of colon (procedure) [code = 954121578] Future Scheduled [address] [facility] 00:00:00 (combo) [code = CT Medical C enter Colonography (combo)] Future Scheduled [address] [facility] 00:00:00 malignant neoplasm Medical C enter of colon (procedure) [code = 062162496] Future Scheduled [address] [facility] 00:00:00 malignant neoplasm Medical C enter of colon (procedure) [code = 952309352] Future Scheduled [address] [facility] 00:00:00 malignant neoplasm Medical C enter of colon (procedure) [code = 886813247] Future Scheduled [address] [facility] 00:00:00 malignant neoplasm Medical C enter of colon (procedure) [code = 615947169] Future Scheduled 1950 Sigmoidoscopy [code [facility] 00:00:00 = Sigmoidoscopy] Medical [place] [address] Future Scheduled [address] [facility] 00:00:00 malignant neoplasm Medical C enter of colon (procedure) [code = 640106549] Future Scheduled [address] [facility] 00:00:00 malignant neoplasm Medical C enter of colon (procedure) [code = 942277107] Future Scheduled [address] [facility] 00:00:00 (combo) [code = CT Medical C enter Colonography (combo)] Future Scheduled [address] [facility] 00:00:00 malignant neoplasm Medical C enter of colon (procedure) [code = 490891534] Future Scheduled [address] [facility] 00:00:00 malignant neoplasm Medical C enter of colon (procedure) [code = 312750840] Future Scheduled [address] [facility] 00:00:00 malignant neoplasm Medical C enter of colon (procedure) [code = 768910072] Future Scheduled [address] [facility] 00:00:00 malignant neoplasm Medical C enter of colon (procedure) [code = 325851467] Future Scheduled 1950 Sigmoidoscopy [code [facility] C enter of colon (procedure) [code = 366975937] Future Scheduled [address] [facility] 00:00:00 malignant neoplasm Medical C enter of colon (procedure) [code = 355016459] Future Scheduled [address] [facility] 00:00:00 malignant neoplasm Medical C enter of colon (procedure) [code = 512814035] Future Scheduled [address] [facility] 00:00:00 malignant neoplasm Medical C enter of colon (procedure) [code = 994519440] Future Scheduled 1952 Sigmoidoscopy [code [facility] 00:00:00 = Sigmoidoscopy] [facility] [place] [facility] Future Scheduled [address] [facility] 00:00:00 (combo) [code = CT Medical C enter Colonography (combo)] Future Scheduled [address] [facility] 00:00:00 malignant neoplasm Medical C enter of colon (procedure) [code = 009577735] Future Scheduled [address] [facility] 00:00:00 malignant neoplasm Medical C enter of colon (procedure) [code = 908161599] Future Scheduled [address] [facility] 00:00:00 malignant neoplasm Medical C enter of colon (procedure) [code = 910558388] Future Scheduled [address] [facility] 00:00:00 malignant neoplasm Medical C enter of colon (procedure) [code = 785233034] Future Scheduled 1952 Sigmoidoscopy [code [facility] 00:00:00 = Sigmoidoscopy] Medical [place] [address] Future Scheduled [address] [facility] 00:00:00 (combo) [code = CT Medical C enter Colonography (combo)] Future Scheduled [address] [facility] 00:00:00 malignant neoplasm Medical C enter of colon (procedure) [code = 046426174] Future Scheduled [address] [facility] 00:00:00 malignant neoplasm Medical C enter of colon (procedure) [code = 915175434] Future Scheduled [address] [facility] 00:00:00 malignant neoplasm Medical C enter of colon (procedure) [code = 530371662] Future Scheduled [address] [facility] 00:00:00 malignant neoplasm Medical C enter of colon (procedure) [code = 214893304] Future Scheduled 1952 Sigmoidoscopy [code [facility] 00:00:00 = Sigmoidoscopy] Medical [place] [address] Future Scheduled [address] [facility] 00:00:00 (combo) [code = CT Medical C enter Colonography (combo)] Future Scheduled [address] [facility] 00:00:00 malignant neoplasm Medical C enter of colon (procedure) [code = 671305457] Future Scheduled [address] [facility] 00:00:00 malignant neoplasm Medical C enter of colon (procedure) [code = 703026223] Future Scheduled [address] [facility] 00:00:00 malignant neoplasm Medical C enter of colon (procedure) [code = 586294846] Future Scheduled [address] [facility] 00:00:00 malignant neoplasm Medical C enter of colon (procedure) [code = 598588165] Future Scheduled 1952 Sigmoidoscopy [code [facility] 00:00:00 = Sigmoidoscopy] Medical [place] [address] Future Scheduled [address] [facility] 00:00:00 (combo) [code = CT Medical C enter Colonography (combo)] Future Scheduled [address] [facility] 00:00:00 malignant neoplasm Medical C enter of colon (procedure) [code = 245711460] Future Scheduled [address] [facility] 00:00:00 malignant neoplasm Medical C enter of colon (procedure) [code = 103266795] Future Scheduled [address] [facility] 00:00:00 malignant neoplasm Medical C enter of colon (procedure) [code = 531811512] Future Scheduled [address] [facility] 00:00:00 malignant neoplasm Medical C enter of colon (procedure) [code = 364821906] Future Scheduled 1952 Sigmoidoscopy [code [facility] 00:00:00 = Sigmoidoscopy] Medical [place] [address] Future Scheduled [address] [facility] 00:00:00 (combo) [code = CT Medical C enter Colonography (combo)] Future Scheduled [address] [facility] 00:00:00 malignant neoplasm Medical C enter of colon (procedure) [code = 939655458] Future Scheduled [address] [facility] 00:00:00 malignant neoplasm Medical C enter of colon (procedure) [code = 593299155] Future Scheduled [address] [facility] 00:00:00 malignant neoplasm Medical C enter of colon (procedure) [code = 229156498] Future Scheduled [address] [facility] 00:00:00 malignant neoplasm Medical C enter of colon (procedure) [code = 815808605] Future Scheduled 1952 Sigmoidoscopy [code [facility] 00:00:00 = Sigmoidoscopy] [facility] [place] [address] Future Scheduled [address] [facility] 00:00:00 (combo) [code = CT Medical C enter Colonography (combo)] Future Scheduled [address] [facility] 00:00:00 malignant neoplasm Medical C enter of colon (procedure) [code = 025189209] Future Scheduled [address] [facility] 00:00:00 malignant neoplasm Medical C enter of colon (procedure) [code = 164366696] Future Scheduled [address] [facility] 00:00:00 malignant neoplasm Medical C enter of colon (procedure) [code = 802223096] Future Scheduled [address] [facility] 00:00:00 malignant neoplasm Medical C enter of colon (procedure) [code = 108274591] Future Scheduled 1952 Sigmoidoscopy [code [facility] 00:00:00 = Sigmoidoscopy] [facility] [place] [address] Future Scheduled [address] [facility] 00:00:00 (combo) [code = CT Medical C enter Colonography (combo)] Future Scheduled [address] [facility] 00:00:00 malignant neoplasm Medical C enter of colon (procedure) [code = 495510427] Future Scheduled [address] [facility] 00:00:00 malignant neoplasm Medical C enter of colon (procedure) [code = 796543059] Future Scheduled [address] [facility] 00:00:00 malignant neoplasm Medical C enter of colon (procedure) [code = 580402004] Future Scheduled [address] [facility] 00:00:00 malignant neoplasm Medical C enter of colon (procedure) [code = 457198143] Future Scheduled 1952 Sigmoidoscopy [code [facility] 00:00:00 = Sigmoidoscopy] [facility] [place] [address] Future Scheduled [address] [facility] 00:00:00 (combo) [code = CT Medical C enter Colonography (combo)] Future Scheduled [address] [facility] 00:00:00 malignant neoplasm Medical C enter of colon (procedure) [code = 845431468] Future Scheduled [address] [facility] 00:00:00 malignant neoplasm Medical C enter of colon (procedure) [code = 057699463] Future Scheduled [address] [facility] 00:00:00 malignant neoplasm Medical C enter of colon (procedure) [code = 460205776] Future Scheduled [address] [facility] 00:00:00 malignant neoplasm Medical C enter of colon (procedure) [code = 886276750] Future Scheduled 1952 Sigmoidoscopy [code [facility] 00:00:00 = Sigmoidoscopy] [facility] [place] [address] Future Scheduled [address] [facility] 00:00:00 (combo) [code = CT Medical C enter Colonography (combo)] Future Scheduled [address] [facility] 00:00:00 malignant neoplasm Medical C enter of colon (procedure) [code = 261440844] Future Scheduled [address] [facility] 00:00:00 malignant neoplasm Medical C enter of colon (procedure) [code = 735995216] Future Scheduled [address] [facility] 00:00:00 malignant neoplasm Medical C enter of colon (procedure) [code = 788327253] Future Scheduled [address] [facility] 00:00:00 malignant neoplasm Medical C enter of colon (procedure) [code = 510286940] Future Scheduled 1952 Sigmoidoscopy [code [facility] 00:00:00 = Sigmoidoscopy] Medical [place] Future Scheduled COLON CANCER [facility] [employer] SCREENING: of Medicine COLONOSCOPY [code = COLON CANCER SCREENING: COLONOSCOPY] Future Scheduled TETANUS SHOT (ADULT) [employer] [facility] [code = TETANUS SHOT of Medi cine (ADULT)] Future Scheduled BMI FOLLOW UP PLAN [employer] Test [code = BMI FOLLOW of Medici ne UP PLAN] Future Scheduled ZOSTER VACCINE (1 of [employer] Test 2) [code = ZOSTER of Medicin e VACCINE (1 of 2)] Future Scheduled MEDICARE AWV [facility] [employer] Test (Initial) [code = of Medicin e MEDICARE AWV (Initial)] Future Scheduled AAA Screen [code = [employer] AAA Screen] of Medicine Future Scheduled FALL SCREEN [code = [employer] FALL SCREEN] of Medicine Future Scheduled PNEUMOVAX >=65 [facility] [employer] Test (PPSV23) [code = of Medicine PNEUMOVAX >=65 (PPSV23)] Future Scheduled FLU VACCINE > 6 [facility] C ollege Test MONTHS [code = FLU of Medici ne VACCINE > 6 MONTHS] Future Scheduled URINALYSIS W REFLEX Ordered: [employer] [facility] MICRO [code = NOCPT] 10/07/2020 of Medi cine Future Scheduled Screening for [facility] [employer]ge Test malignant neoplasm of Medici ne of colon (procedure) [code = 135889557] Future Scheduled TETANUS SHOT (ADULT) [employer] Test [code = TETANUS SHOT of Medi cine (ADULT)] Future Scheduled BMI FOLLOW UP PLAN [employer] Test [code = BMI FOLLOW of Medici ne UP PLAN] Future Scheduled ZOSTER VACCINE (1 of [employer] Test 2) [code = ZOSTER of Medicin e VACCINE (1 of 2)] Future Scheduled MEDICARE AWV [facility] [employer] [facility] (Initial) [code = of Medicin e MEDICARE AWV (Initial)] Future Scheduled Abdominal aortic [employer] Test aneurysm screening of Medici ne (procedure) [code = 493664471] Future Scheduled FALL SCREEN [code = [employer] FALL SCREEN] of Medicine Future Scheduled PNEUMOVAX >=65 [facility] [employer] Test (PPSV23) [code = of Medicine PNEUMOVAX >=65 (PPSV23)] Future Scheduled FLU VACCINE > 6 [facility] C [facility]lege Test MONTHS [code = FLU of Medici ne VACCINE > 6 MONTHS] Future Scheduled RANDOM URINE Ordered: [facility] [employer] Test PROTEIN/CREATININE 04/05/2020 of Medici ne [code = 2890-2] Future Scheduled URINALYSIS AUTO Ordered: [facility] ollege Test W/SCOPE [code = 04/05/2020 of Medicine 39594-1] Future Scheduled COLON CANCER [facility] [employer] SCREENING: of Medicine COLONOSCOPY [code = COLON CANCER SCREENING: COLONOSCOPY] Future Scheduled TETANUS SHOT (ADULT) [employer] Test [code = TETANUS SHOT of Medi cine (ADULT)] Future Scheduled ZOSTER VACCINE (1 of [employer] [place] Test 2) [code = ZOSTER of Medicin e VACCINE (1 of 2)] Future Scheduled MEDICARE AWV [facility] [employer] Test (Initial) [code = of Medicin e MEDICARE AWV (Initial)] Future Scheduled AAA Screen [code = [facility] r [place] Test AAA Screen] of Medicine Future Scheduled FALL SCREEN [code = [facility] or [place] Test FALL SCREEN] of Medicine Future Scheduled PNEUMOVAX >=65 [facility] [employer] Test (PPSV23) [code = of Medicine PNEUMOVAX >=65 (PPSV23)] Future Scheduled FLU VACCINE > 6 [facility] C ollege Test MONTHS [code = FLU of Medici ne VACCINE > 6 MONTHS] Future Scheduled MRI ABDOMEN WO 1 Occurrences [facility] C [facility]lege Test CONTRAST [code = starting of Medicine 65689-6] 05/05/2020 until 11/28/2020 Future Scheduled XR CHEST PA AND 1 Occurrences [facility] College Test LATERAL [code = starting of Medicine 28886-6] 05/05/2020 until 11/28/2020 Encounters Start End Encounter Admission Attending Care Care Encounter Source Date/Time Date/Time Type Type Clinicians Facility Department ID 2022-07-24 2022-07-24 LILLIANA Clayton 1.2.840.114 [id number] [facility] 14:23:11 19:52:16 Visit SAMAYA AMBULATOR 350.1.13.21 College Y 0.2.7.2.686 of [id number] [facility]i [facility] 335 e 2021-08-08 2021-08-08 Office Anumjeannette [facility] 1.2.840.114 [id number] [facility] 13:40:00 14:52:39 Visit Aimee AMBULATOR 350.1.13.21 College Y 0.2.7.2.686 of [id number] [facility] refugio 335 e 2021-04-05 2021-04-[address] [facility] 1.2.840.114 [id number] [facility] 13:14:21 13:46:44 Visit Aimee AMBULATOR 350.1.13.21 College Y 0.2.7.2.686 of [id number] [facility] 335 e 2020-10-07 2020-10-07 Office Larkin, [facility] 1.2.840.114 [id number] [facility] 14:37:10 16:35:39 Visit Demetrius Kohler AMBULATOR 350.1.13.21 College Y 0.2.7.2.686 of [id number] [facility] 300 e 2020-05-25 2020-05-25 [facility] [id number] [facility] 00:00:00 00:00:00 DEMETRIUS 2020-05-25 2020-05-25 Outpatient CHAYA [facility] [id number] SLE 00:00:00 00:00:00 DEMETRIUS 2020-05-05 2020-05-05 Office NIDHI Larkin 1.2.840.114 [id number] [facility] 08:40:26 09:26:13 Visit Demetrius Kohler AMBULATOR 350.1.13.21 College Y 0.2.7.2.686 of [id number] [facility] 300 e 2020-04-05 2020-04-05 Office Susanawagnermata [facility] 1.2.840.114 [id number] [facility] 12:38:08 16:49:05 Visit Aimee AMBULATOR 350.1.13.21 College Y 0.2.7.2.686 of [id number] [facility] refugio 335 e 2020-03-02 2020-03-02 Outpatient [facility] SLE [id number] [facility] 00:00:00 00:00:00 Results Test Description Test Time Test Comments Results Result Comments Source POCT URINALYSIS DIPSTICK 2020-10-07 00:00:00 Test Item Value Reference Range Interpretation Comme nts COLOR UA (test code = 5778-6) Yellow YELLOW/STRAW CLARITY UA (test code = 30221-8) Clear CLEAR GLUCOSE UA (test code = 5792-7) Negative NEGATIVE BILIRUBIN UA (test code = 5770-3) Negative NEGATIVE KETONES UA (test code = 10455-8) Negative NEGATIVE SPECIFIC GRAVITY UA (test code [...] NEGATIVE REDUCING SUBSTANCES URINE (test code = 79565-3) [facility] [id number] 16:51:00 Unlisted Reason for Exam - Click Yes and Enter Reason Below->YesUnlisted Reason for Exam->[facility] 1950 Sex: [...] hospital Verified Date/Time: 05/25/2020 16:51:08 Reading Location: [address] Transitional Reading Room RAD, CHEST, 2 [id number] 10:10:00Reason for Exam:- >[facility] 1950 Sex: [...] MDReport Verified Date/Time: 05/25/2020 10:10:41 Reading Location: [facility] Reading Room [address] [place] [address] POCT URINALYSIS DIPSTICK 2020-05-05 00:00:00 Test Item Value Reference Range Interpretation Comments COLOR UA (test code = 5778-6) [place] YELLOW/STRAW CLARITY UA (test code = 11046-5) Clear CLEAR GLUCOSE UA (test code = 5792-7) Negative NEGATIVE BILIRUBIN UA (test code = 5770-3) Negative NEGATIVE KETONES UA (test code = 09378-6) Negative NEGATIVE SPECIFIC GRAVITY UA (test code [...] NEGATIVE REDUCING SUBSTANCES URINE (test code = 53986-1) [facility] [id number] 09:38:00Surgical Pathology Report Case: [id number] Authorizing Provider: Demetrius Larkin MD Collected: 10/09/2017 1652 Ordering Location: [facility] PERIOPERATIVE [...] SYNOPTIC REPORT Signing Pathologist Direct Phone Line: [phone] signed by Joyce Sauceda MD on 10/16/2017 at 9:38 AMThe relative revisions of traditional Dami nuclear grading in predicting 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 The assessment of nucleolar prominence as a single parameter is noted to correlate better with outcomethan other nuclear parameters (size, shape) to assign a [place] grade. ("Urologic Surgical Pathology," Leidy and Cristian, third edition, 2014). Nuclear grade assigned in Synoptic portion of this report(tw, can include).This patient's previous biopsy from [facility], from 03/02/2017 ([id number] 5110) shows a core biopsy with features similar [...] Additional Pathological Findings: Cyst(s): Simple cortical cyst 58291 X 2, 73790 , 65042 x6Left renal massA. Retroperitoneal lymph node. B. [...] positive; AE1/AE3-positive; RICHARD and CK 7-focally positive; YT30-xnlsmaea CD10 equivocal, possibly focally positiveThe immunohistochemistry test was developed and its performance characteristics determined by [facility], Pathology Laboratory. It has not been cleared [...] perform high complexity clinical laboratory testing.BASIC METABOLIC [id number] 13:36:00 Test Item Value Reference Range Interpretation [...] PATIEN TS. CBC W/PLT COUNT & AUTO [id number] 12:44:00 Test Item Value Reference Range Interpretation [...] (BEAKER) (test code = 2801) BASIC METABOLIC [id number] 15:02:00 Test Item Value Reference Range Interpretation [...] PATIEN TS. Please draw at 2:00pmBASIC METABOLIC [id number] 06:14:00 Test Item Value Reference Range Interpretation [...] S NOT APPLICABLE FOR DIALYSIS PATIEN TS. [id number] 06:03:00 Test Item Value Reference Range Interpretation Comments PHOSPHORUS (BEAKER) (test code = 2.7 mg/dL 2.3-4.7 604) [id number] 06:03:00 Test Item Value Reference Range Interpretation Comments MAGNESIUM (BEAKER) (test code = 2.1 mg/dL 1.6-2.6 627) CBC W/PLT COUNT & AUTO [id number] 05:16:00 Test Item Value Reference Range Interpretation [...] (BEAKER) 21 % 20-55 (test code = 2595) BASIC METABOLIC [id number] 05:41:00 Test Item Value Reference Range Interpretation [...] S NOT APPLICABLE FOR DIALYSIS PATIEN TS. [id number] 05:36:00 Test Item Value Reference Range Interpretation Comments PHOSPHORUS (BEAKER) (test code = 2.8 mg/dL 2.3-4.7 604) [id number] 05:36:00 Test Item Value Reference Range Interpretation Comments MAGNESIUM (BEAKER) (test code = 2.2 mg/dL 1.6-2.6 627) PTH, [id number] 05:33:00 Test Item Value Reference Range Interpretation Comments PARATHYROID HORMONE INTACT 212.3 pg/mL 8.5-72.5 H (BEAKER) (test code = 577) CBC W/PLT COUNT & AUTO [id number] 05:02:00 Test Item Value Reference Range Interpretation [...] 0-1 PERCENT (BEAKER) (test code = 2801) [id number] 06:36:00 Test Item Value Reference Range Interpretation Comments PHOSPHORUS (BEAKER) (test code = 2.4 mg/dL 2.3-4.7 604) [id number] 06:36:00 Test Item Value Reference Range Interpretation Comments MAGNESIUM (BEAKER) (test code = 1.8 mg/dL 1.6-2.6 627) BASIC METABOLIC [id number] 06:36:00 Test Item Value Reference Range Interpretation [...] PATIEN TS. CBC W/PLT COUNT & AUTO [id number] 05:59:00 Test Item Value Reference Range Interpretation [...] 0-1 PERCENT (BEAKER) (test code = 2801) [id number] 19:38:00 Test Item Value Reference Range Interpretation Comments PHOSPHORUS (BEAKER) (test code = 2.8 mg/dL 2.3-4.7 604) [id number] 19:38:00 Test Item Value Reference Range Interpretation Comments MAGNESIUM (BEAKER) (test code = 1.7 mg/dL 1.6-2.6 627) BASIC METABOLIC [id number] 19:35:00 Test Item Value Reference Range Interpretation [...] APPLICABLE FOR DIALYSIS PATIEN TS. HEMOGLOBIN AND [id number] 19:07:00 Test Item Value Reference Range Interpretation Comments HEMOGLOBIN (BEAKER) (test code = 13.7 GM/DL 13.7-17.5 410) HEMATOCRIT (BEAKER) (test code = 40.5 % 40.1-51.0 411) URINE [id number] 13:12:00 Test Item Value Reference Range Interpretation Comments CULTURE (BEAKER) (test code = 1095) No growth BASIC METABOLIC [id number] 17:19:00 Test Item Value Reference Range Interpretation [...] APPLICABLE FOR DIALYSIS PATIEN TS. URINALYSIS W/ [id number] 17:15:00 Test Item Value Reference Range Interpretation [...] 1574) Rare SOURCE(BEAKER) (test code = 2795) [id number] 17:07:00 Test Item Value Reference Range Interpretation Comments PARTIAL THROMBOPLASTIN TIME 28.1 seconds 22.5-36.0 (BEAKER) (test code = 760) PROTHROMBIN [id number] 17:06:00 Test Item Value Reference Range Interpretation Comments PROTIME (BEAKER) (test code = 13.6 seconds 11.7-14.7 759) INR (BEAKER) (test code = 370) 1.0 <=5.9 RECOMMENDED COUMADIN/WARFARIN INR THERAPY RANGESSTANDARD DOSE: 2.0 - 3.0 Includes: PROPHYLAXIS for venous thrombosis, systemic embolization; TREATMENT for venous thrombosis and/or pulmonary embolus.HIGH RISK: Target INR is 2.5-3.5 for patients with mechanical heart valves.CBC W/PLT COUNT & AUTO [id number] 16:53:00 Test Item Value Reference Range Interpretation [...] PERCENT (BEAKER) (test code = 2801) TISSUE [id number] 11:47:00Surgical Pathology Report Case: [id number] Authorizing Provider: Farzad Jackson Collected: 03/02/2017 Asad Vicente MD Ordering Location: [facility] Diagnostic Imaging Received: 03/02/2017 1140 [...] Intradepartmental consultation: Dr. Koko Whitney, Dr. Umu ManzanaresMG/[id number], 78875, 13086 x2Left kidney biopsy massKidney massThe specimen is [...] developed and its performance characteristics determined by [facility] Pathology [facility]. It has not been cleared [...] qualified to perform high complexity clinical laboratory testing.[id number] 08:19:00 Test Item Value Reference Range Interpretation [...] mechanical heart valves.CBC W/PLT COUNT & AUTO [id number] 08:14:00 Test Item Value Reference Range Interpretation [...]
[2022-09-22 12:35] LABS: Absolute Lymphocytes (CBC) 0.8 K/uL (0.7-4.9); Hematocrit 32.3 % (39.6-49.0); Lymphocytes % 27.6 % (15.3-44.8); MCV 87.3 fL (80-100); MPV 7.1 fL (7.6-11.3); RBC Red Blood Cell Count 3.71 M/uL (4.33-5.43)
[2022-09-22 12:54] LABS: Troponin High Sensitivity 35.2 pg/mL (<58.9)
--- NOTE | 2022-09-22 13:07 | RAD REPORT ---
EXAM DESCRIPTION: CT - CTHCSPWOC - 09/22/2022 12:35 pm CLINICAL HISTORY: fall COMPARISON: SOFT TISSUE NECK W O CONTRAST dated 09/24/2013; Head C Spine Cap Wo Con dated 09/06/2022; Head Brain Wo Cont dated 08/04/2022; Ct Stroke Brain Wo Cont dated 03/27/2019 TECHNIQUE: Axial thin cut noncontrast CT images of the head were obtained. Axial thin cut noncontrast CT images of the cervical spine were obtained. Multiplanar reformatted images were generated and reviewed. All CT scans are performed using dose optimization technique as appropriate and may include automated exposure control or mA/KV adjustment according to patient size. FINDINGS: CT HEAD WITHOUT CONTRAST: No acute hemorrhage, hydrocephalus or extra-axial collection is identified. Confluent periventricular and deep white matter hypodensities with centrally predominant volume loss and ventricular dilation somewhat out of proportion to sulcal prominence, with overall stable appearance and ventricular calib er. Small regions of encephalomalacia along the inferior cerebellar hemispheres, stable. No areas of brain edema or midline shift. Small mucous retention cysts within the bases of the maxillary sinuses. Patchy opacification within t he right mastoid air cells.No acute calvarial fractures. CT CERVICAL SPINE WITHOUT CONTRAST: No fracture or subluxation.No prevertebral soft tissues swelling is identified. Cvvg-me-jkagfwey dege nerative changes with endplate remodeling, disc height loss, and mild bilateral neural foraminal narr owing at C5-6. Ovoid 1.4 centimeter left submandibular region calculus is incidentally noted. IMPRESSION: No acute traumatic intracranial or cervical spine findings. Pronounced centrally predominant volume loss and deep white matter hypodensities, most suggestive of chronic small vessel ischemic changes. Stable sequelae of remote ischemia involving the inferior cere bellar hemispheres. Nuxj-ze-zadjcdus cervical spine degenerative changes most notably at C5-6. 1.4 centimeter left submandibular sialolith.
--- NOTE | 2022-09-22 13:44 | RAD REPORT ---
[facility] CLINICAL HISTORY: fall COMPARISON: Chest Single View dated 09/18/2022; Abdomen Acute Series dated 09/02/2022; Chest Single Vie w dated 08/22/2022; Chest Single View dated 08/18/2022 TECHNIQUE: Portable AP view of the chest. FINDINGS: The lungs are clear. Slight patient rotation limits evaluation. Stable right subclavian va scular metallic stent. No pneumothorax or effusion. The cardiomediastinal contours are unremarkable. IMPRESSION: No acute cardiopulmonary process.
--- NOTE | 2022-09-22 13:45 | RAD REPORT ---
EXAM DESCRIPTION: RAD - Pelvis - 09/22/2022 1:35 pm CLINICAL HISTORY: fall COMPARISON: No comparisons TECHNIQUE: Single AP view of the pelvis. FINDINGS: The visualized pelvic ring is intact. No suspicious osseous lesions. Hofd-nw-pnnhlkww bila teral hip joint degenerative changes with marginal acetabular spurring. Osseous bumps at the femoral head/neck junction, may predispose to femoroacetabular impingement. Surgical clips along the left upp er pelvis. Other pelvic joints are unremarkable. Visualized aspects of the abdomen and soft tissues a re unremarkable. IMPRESSION: No acute osseous abnormality of the bony pelvis. Zcys-wj-auokaqtk bilateral hip joint de generative changes as above.
[2022-09-22 15:27] VITALS: TEMP 97.9; O2SAT 100
[2022-09-22 15:38] VITALS: BP 138/74
--- NOTE | 2022-09-25 13:13 | EKG ---
Test Date: 2022-09-22 Test Time: 12:55:27 Chemical Production Technician: REBECCA MEASUREMENT RESULTS: Intervals: Rate: 64 MS: 164 QRSD: 56 QT: 406 QTc: 418 [place]: P: 70 MS: 164 QRS: 99 T: 27 INTERPRETIVE STATEMENTS: Sinus rhythm with marked sinus arrhythmia Rightward axis Anterior infarct, age undetermined Abnormal ECG Compared to ECG 09/18/2022 22:31:15 Right-axis deviation now present Myocardial infarct finding now present ST (T wave) deviation no longer present Electronically Signed On 09-25-22 13:07:58 CDT by Clark Fuller
--- NOTE | 2022-10-06 16:16 | EDPHYS ---
Physician Documentation [facility] Name: Aravind Low Age: 72 yrs Sex: Male : 1950 Arrival Date: 09/22/2022 Time: 11:58 Bed 18 Private MD: ED Physician Ovidio Díaz HPI: 09/22 12:05 This 72 yrs old Black Male presents to ER via EMS with complaints of General Weakness, jmm Pain All Over. 12:05 This is a 72 year old male with a history of cva, dementia, esrd, gout, htn, kidney jmm cancer that presents to the ED after multiple falls today. Patient slid off his bed. Patient currently denies any pain. Denies shortness of breath. . Historical: - Allergies: 12:31 No Known Drug Allergies; kc6 - Home Meds: 12:31 amlodipine oral [Active]; aspirin 81 mg Oral cap 1 cap once daily [Active]; kc6 atorvastatin Oral [Active]; Clonidine Oral [Active]; clopidogrel Oral [Active]; Hydralazine Oral [Active]; Metoprolol Tartrate Oral [Active]; olanzapine Oral [Active]; Sodium Bicarbonate Oral [Active]; - PMHx: 12:31 CVA; Dementia; ESRD; Gout; Hypertension; kidney cancer; kc6 - PSHx: 12:31 None; kc6 - Immunization history:: Client reports receiving the 2nd dose of the Covid vaccine, Flu vaccine is up to date. - Social history:: Smoking status: Patient reports the use of cigarette tobacco products, smokes one pack cigarettes per day. ROS: 12:05 Constitutional: Negative for fever, chills, and weight loss, Cardiovascular: Negative jmm for chest pain, palpitations, and edema, Respiratory: Negative for shortness of breath, cough, wheezing, and pleuritic chest pain, Abdomen/GI: Negative for abdominal pain, nausea, vomiting, diarrhea, and constipation. 12:05 All other systems are negative. Exam: 12:05 Constitutional: This is a well developed, well nourished patient who is awake, alert, jmm and in no acute distress. Head/Face: atraumatic. Eyes: EOMI, no conjunctival erythema appreciated ENT: Moist Mucus Membranes Neck: Trachea midline, Supple Chest/axilla: Normal chest wall appearance and motion. Cardiovascular: Regular rate and rhythm. No edema appreciated Respiratory: Normal respirations, no respiratory distress appreciated Abdomen/GI: Non distended Back: Normal ROM Skin: General appearance color normal 12:05 Musculoskeletal/extremity: no lower extremity edema, full dorsalis pulse bilaterally. 12:05 Skin: Appearance: Color: normal in color. 12:05 Neuro: Orientation: is normal, Mentation: is normal, Memory: is normal. 12:05 Psych: Behavior/mood is pleasant, cooperative. Vital Signs: 12:29 BP 123 / 73; Pulse 66; Resp 18 S; Temp 97.9(O); Pulse Ox 100% on R/A; Weight 72.57 kg kc6 (R); Height 5 ft. 7 in. (R); Pain 0/10; 13:26 BP 138 / 74; Pulse 64; Resp 16 S; Pulse Ox 100% on R/A; Pain 0/10; kc6 12:29 Body Mass Index 25.06 (72.57 kg, 170.18 cm) [facility] 12:29 Pain Scale: Adult kc 13:26 Pain Scale: Adult kc6 MDM: 12:05 Patient medically screened. [facility] 14:05 Differential diagnosis: fall. Data reviewed: vital signs, nurses notes, lab test [facility] result(s), radiologic studies, CT scan, plain films. Independent interpretation of the following test(s) in the Emergency Department X-Ray: My interpretation is No fracture appreciated. Counseling: I had a detailed discussion with the patient and/or guardian regarding: the historical points, exam findings, and any diagnostic results supporting the discharge/admit diagnosis, radiology results, the need for outpatient follow up, to return to the emergency department if symptoms worsen or persist or if there are any questions or concerns that arise at home. 09/22 12:16 Order name: CBC with Diff; Complete Time: 12:39 [facility] 09/22 12:16 Order name: BMP; Complete Time: 12:54 [facility] 09/22 12:16 Order name: Troponin High Sensitivity; Complete Time: 12:54 [facility] 09/22 12:18 Order name: CT Head C Spine; Complete Time: 13:10 [facility] 09/22 13:12 Order name: Pelvis XRAY; Complete Time: 13:48 [facility] 09/22 13:12 Order name: Chest Single View XRAY; Complete Time: 13:48 [facility] 09/22 12:16 Order name: Saline Lock; Complete Time: 12:35 [facility] 09/22 12:16 Order name: EKG - Nurse/Tech; Complete Time: 13:07 [facility] Administered Medications: No medications were administered Disposition: 16:08 Co-signature as Attending Physician, Ovidio Díaz MD I reviewed the patient's care rn provided by the Advanced Practice Provider and agree with the diagnosis and treatment plan. Disposition Summary: 09/22/22 14:07 Discharge Ordered Location: Home [facility] Condition: Stable [facility] Diagnosis - Repeated falls [facility] Followup: [facility] - With: Private Physician - When: 2 - 3 days - Reason: Recheck today's complaints, Continuance of care, Re-evaluation by your physician Discharge Instructions: - Discharge Summary Sheet [facility] - Fall Prevention in the Home, Adult [facility] Forms: - Medication Reconciliation Form [facility] - Thank You Letter [facility] - Antibiotic Education [facility] - Prescription Opioid Use [facility] Signatures: Dispatcher [employer] Junior Cyr PA PA [facility] Ovidio Díaz MD MD rn Campbell, Kaitlyn, RN RN kc6
--- NOTE | 2022-10-06 16:16 | ER ---
Nurse's Notes [facility] Name: Aravind Low Age: 72 yrs Sex: Male : 1950 Arrival Date: 09/22/2022 Time: 11:58 Bed 18 Private MD: Diagnosis: Repeated falls Presentation: 09/22 12:29 Chief complaint: EMS states: client had a controlled fall out of bed this morning. kc6 reports generalized weakness and pain all over. denies loc. Coronavirus screen: Vaccine status: Patient reports receiving the 2nd dose of the covid vaccine. At this time, the client does not indicate any symptoms associated with coronavirus-19. Ebola Screen: No symptoms or risks identified at this time. Initial Sepsis Screen: Does the patient meet any 2 criteria? No. Patient's initial sepsis screen is negative. Does the patient have a suspected source of infection? No. Patient's initial sepsis screen is negative. Risk Assessment: Do you want to hurt yourself or someone else? Patient reports no desire to harm self or others. Onset of symptoms was September 22, 2022. 12:29 Method Of Arrival: EMS: [facility] 12:29 Acuity: ANTONIO 3 kc6 Triage Assessment: 12:31 General: Appears in no apparent distress. comfortable, Behavior is calm, cooperative, kc6 appropriate for age. Pain: Denies pain. EENT: No signs and/or symptoms were reported regarding the EENT system. Neuro: Stewart Agitation-Sedation Scale (RASS): 0 - Alert and Calm Level of Consciousness is awake, alert, obeys commands, Oriented to person, place, time, situation, Appropriate for age. Cardiovascular: Capillary refill < 3 seconds. Respiratory: Airway is patent Trachea midline Respiratory effort is even, unlabored, Respiratory pattern is regular, symmetrical. GI: No signs and/or symptoms were reported involving the gastrointestinal system. : No signs and/or symptoms were reported regarding the genitourinary system. Derm: No signs and/or symptoms reported regarding the dermatologic system. Skin is intact, Skin is pink, warm \\T\\ dry. Musculoskeletal: Reports weakness in "generalized" pain in "generalized". Historical: - Allergies: 12:31 No Known Drug Allergies; kc6 - Home Meds: 12:31 amlodipine oral [Active]; aspirin 81 mg Oral cap 1 cap once daily [Active]; kc6 atorvastatin Oral [Active]; Clonidine Oral [Active]; clopidogrel Oral [Active]; Hydralazine Oral [Active]; Metoprolol Tartrate Oral [Active]; olanzapine Oral [Active]; Sodium Bicarbonate Oral [Active]; - PMHx: 12:31 CVA; Dementia; ESRD; Gout; Hypertension; kidney cancer; kc6 - PSHx: 12:31 None; kc6 - Immunization history:: Client reports receiving the 2nd dose of the Covid vaccine, Flu vaccine is up to date. - Social history:: Smoking status: Patient reports the use of cigarette tobacco products, smokes one pack cigarettes per day. Screenin:34 [facility] ED Fall Risk Assessment (Adult) History of falling in the last 3 months, kc6 including since admission Yes- single mechanical fall (1 pt) Confusion or Disorientation No (0 pts) Intoxicated or Sedated No (0 pts) Impaired Gait Yes (1 pt) Mobility Assist Device Used Yes (1 pt) Altered Elimination No (0 pt) Score/Fall Risk Level 3 or more points = High Risk Oriented to surroundings, Maintained a safe environment, Educated pt \\T\\ family on fall prevention, incl call for assistance when getting out of bed, Assessed \\T\\ reinforced patient's understanding of fall precautions, Hourly rounding (assess needs \\T\\ fall precautionary measures) done. Abuse screen: Denies threats or abuse. Denies injuries from another. Nutritional screening: No deficits noted. Tuberculosis screening: No symptoms or risk factors identified. Assessment: 12:29 Reassessment: please see triage assessment. [facility] 13:25 Reassessment: Patient appears in no apparent distress at this time. No changes from 6 previously documented assessment. Patient and/or family updated on plan of care and expected duration. Pain level reassessed. Patient is alert, oriented x 3, equal unlabored respirations, skin warm/dry/pink. Patient denies pain at this time. 14:25 Reassessment: Patient appears in no apparent distress at this time. No changes from 6 previously documented assessment. Patient and/or family updated on plan of care and expected duration. Pain level reassessed. Patient is alert, oriented x 3, equal unlabored respirations, skin warm/dry/pink. Patient denies pain at this time. Vital Signs: 12:29 BP 123 / 73; Pulse 66; Resp 18 S; Temp 97.9(O); Pulse Ox 100% on R/A; Weight 72.57 kg kc6 (R); Height 5 ft. 7 in. (R); Pain 0/10; 13:26 BP 138 / 74; Pulse 64; Resp 16 S; Pulse Ox 100% on R/A; Pain 0/10; kc6 12:29 Body Mass Index 25.06 (72.57 kg, 170.18 cm) kc6 12:29 Pain Scale: Adult kc6 13:26 Pain Scale: Adult kc6 ED Course: 11:58 Patient arrived in ED. eb 12:01 Junior Fan PA is PHCP. rachele 12:01 Ovidio Díaz MD is Attending Physician. rachele 12:18 Tiffanie Roman, VEELINA is Primary Nurse. kc6 12:31 Triage completed. kc6 12:31 Arm band placed on. kc6 12:34 Patient has correct armband on for positive identification. Placed in gown. Bed in low kc6 position. Call light in reach. Side rails up X2. 12:35 Troponin High Sensitivity Sent. kc6 12:35 BMP Sent. kc6 12:35 CBC with Diff Sent. kc6 12:35 Inserted saline lock: 20 gauge in left forearm, using aseptic technique. Blood kc6 collected. 12:37 CT Head C Spine In Process Unspecified. EDMS 13:37 Pelvis XRAY In Process Unspecified. EDMS 13:37 Chest Single View XRAY In Process Unspecified. EDMS 14:39 No provider procedures requiring assistance completed. IV discontinued, intact, kc6 bleeding controlled, No redness/swelling at site. Pressure dressing applied. Administered Medications: No medications were administered Medication: 14:39 VIS not applicable for this client. kc6 Outcome: 14:07 Discharge ordered by . [facility] 14:39 Discharged to home ambulatory, via wheelchair, with family. kc6 14:39 Condition: stable 14:39 Discharge instructions given to patient, Instructed on discharge instructions, follow up and referral plans. Demonstrated understanding of instructions, follow-up care. 14:39 Patient left the ED. kc6 Signatures: Dispatcher [employer] EDMS Junior Fan PA PA jmm Botello, Elizabeth eb Campbell, Kaitlyn, RN RN kc6
== END 2022-09-22 14:39 | disposition home or self-care (01) ==
LOC: ER 11:54
DX: R53.1 Weakness (principal); R29.6 Repeated falls; F17.210 Nicotine dependence, cigarettes, uncomplicated; I12.0 Hypertensive chronic kidney disease with stage 5 chronic kidney disease or end stage renal disease; N18.6 End stage renal disease; Z79.82 Long term (current) use of aspirin
CPT/HCPCS: 36415; 70450; 71045; 72125; 72170; 80048; 84484; 85025; 93005; 99284

== ENCOUNTER 2023-01-15 21:14 | Inpatient (IN) | payer OTHER ==
--- OUTSIDE RECORDS SUMMARY | 2023-01-15 21:20 | XMS REPORT | Continuity of Care Document ---
:1950 Author Organization [facility] t Address [address] [place] [address] Care Team Providers Name Role Phone JERMAINE HEAVEN Primary Care Physician Unavailable RADIOLOGY Attending Clinician Unavailable Radiology Attending Clinician Unavailable Paolo Ly Attending Clinician Unavailable DEMETRIUS LARKIN Attending Clinician Unavailable FARZAD JACKSON Attending Clinician Unavailable PAOLO LY Admitting Clinician Unavailable Paolo Ly Admitting Clinician Unavailable DEMETRIUS LARKIN Admitting Clinician Unavailable FARZAD JACKSON Admitting Clinician Unavailable Payers Payer Name Policy Type Policy Number Effective Date Expiration Date [place] guzmán MEDICARE PART A [id number] 2017 \\T\\ B 00:00:00 [employer] P[employer] [id number] MEDICARE A B [id number] 2017 00:00:00 Problems Condition Condition Condition Status Onset Resolution Last Treating Co mments Source Name Details Category Date Date Treatment Clinician Date Pre-op Pre-op Disease Active [facility]: Medical 00 [place] Renal Renal Disease Active [facility] mass, left mass, left 3-27 Sharmaine kes 00:00: Medical 00 [place] 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 00:00: Medi jennifer behavior behavior 00 Center of kidney of kidney and and ureter, ureter, unspecifie unspecifie d d laterality laterality Allergies, Adverse Reactions, Alerts Allergy Allergy Status Severity Reaction(s) Onset Inactive Treating Comm ents Source Name Type Date Date Clinician NO KNOWN Drug Active Univers ALLERGIE Class ity of [facility] NO KNOWN Allergy Active NEENA Cota ALLERGJO ANN sarbjit [facility] Social History Social Habit Start Date Stop Date Quantity Comments Source History of tobacco Cigarette Smoker [facility] use [facility] Exposure to 2022-11-17 2022-11-27 Not sure University of SARS-CoV-2 (event) 00:00:00 09:20:00 [facility] Alcohol intake 2017-10-10 2017-10-[address] [facility] [place] [facility] 00:[facility]:00 00:00:00 of alcohol [facility] (finding) Tobacco use and 2017-10-01 2017-10-[address] [facility] St Sharmaine kes exposure 00:00:00 00:00:00 tobacco non-user [facility] Cigarettes smoked 2017-10-01 2017-10-[address] [facility] St Lusarbjit current (pack per 00:00:00 00:00:00 Medical Center day) - Reported Sex Assigned At [birth year] [facility] 00:00:00 00:00:00 Medical Center Smoking Status Start Date Stop Date Source Tobacco smoking consumption [facility] Smokes tobacco daily 2017-10-01 00:00:00 [facility] Medications Ordered Filled Start Stop Current Ordering Indication Dosage Frequency Signature Comments Components Source Medication Medication Date Date Medication? Clinician (SIG) Name Name LORazepam 2022- No [id number] 1mg 1 mg, U nivers (ATIVAN) 11-27 05-15 Oral, ity of tablet 1 mg 17:30: 15[place], On Medical Mon [facility] 11/27/22 at 1230, Routine LORazepam 2022- No [id number] 1mg 1 mg, U nivers (ATIVAN) 11-27 05-15 Oral, ity of tablet 1 mg 17:30: 15:15 [place] dose, On [facility] Mon Branch 11/27/22 at 1230, Routine furosemide 2018-0 Yes 40mg Take [address] (LASIX) 40 4-01 by mouth [facility] MG tablet 03:27: every Medical 05 other day. Center amLODIPine 2018-0 Yes 10mg QD Take [address] (NORVASC) 4-01 by mouth [facility] 10 MG 03:27: daily. Medical tablet 05 Center cloNIDine 2018-0 Yes .3mg Q.[id number] Take 0.[address] [facility] [address] HCl 4-01 [id number] mg by [facility] (CATAPRES) 03:27: 3D mouth 3 Medi jennifer 0.3 MG 05 (three) Center tablet times daily. cloNIDine 2018-0 Yes .3mg Q.[id number] Take 0.[address] HCl 4-01 [id number] mg by [facility] (CATAPRES) 03:27: 3D mouth [...] tablet 05 Center cloNIDine 2018-0 Yes .3mg Q.[id number] Take 0.[address] HCl 4-01 [id number] mg by [facility] (CATAPRES) 03:27: 3D mouth [...] tablet 05 Center cloNIDine 2018-0 Yes .3mg Q.[id number] Take 0.[address] HCl 4-01 [id number] mg by [facility] (CATAPRES) 03:27: 3D mouth 3 Medi jennifer 0.3 MG 05 (three) Center tablet times daily. furosemide 2018-0 Yes 40mg Take [address] (LASIX) 40 4-01 by mouth [facility] MG tablet 03:27: every Medical 05 other day. [place] amLODIPine 2018-0 Yes 10mg QD Take [address] (NORVASC) 4-01 by mouth [facility] 10 MG 03:27: daily. Medical tablet 05 [place] cloNIDine 2018-0 Yes .3mg Q.[id number] Take 0.[address] HCl 4-01 [id number] mg by [facility] (CATAPRES) 03:27: 3D mouth 3 Medi jennifer 0.3 MG 05 (three) Center tablet times daily. furosemide 2018-0 Yes 40mg Take [address] (LASIX) 40 4-01 by mouth [facility] MG tablet 03:27: every Medical 05 other day. [place] amLODIPine 2018-0 Yes 10mg QD Take [address] (NORVASC) 4-01 by mouth [facility] 10 MG 03:27: daily. Medical tablet 05 [place] cloNIDine 2018-0 Yes .3mg Q.[id number] Take 0.[address] HCl 4-01 [id number] mg by [facility] (CATAPRES) 03:27: 3D mouth 3 Medi jennifer 0.3 MG 05 (three) Center tablet times daily. furosemide 2018-0 Yes 40mg Take [address] (LASIX) 40 4-01 by mouth [facility] MG tablet 03:27: every Medical 05 other day. [place] amLODIPine 2018-0 Yes 10mg QD Take [address] (NORVASC) 4-01 by mouth [facility] 10 MG 03:27: daily. Medical tablet 05 [place] cloNIDine 2018-0 Yes .3mg Q.[id number] Take 0.[address] HCl 4-01 [id number] mg by [facility] (CATAPRES) 03:27: 3D mouth 3 Medi jennifer 0.3 MG 05 (three) Center tablet times daily. furosemide 2018-0 Yes 40mg Take [address] (LASIX) 40 4-01 by mouth [facility] MG tablet 03:27: every Medical 05 other day. [place] amLODIPine 2018-0 Yes 10mg QD Take [address] (NORVASC) 4-01 by mouth [facility] 10 MG 03:27: daily. Medical tablet 05 [place] cloNIDine 2018-0 Yes .3mg Q.[id number] Take 0.[address] HCl 4-01 [id number] mg by [facility] (CATAPRES) 03:27: 3D mouth 3 Medi jennifer 0.3 MG 05 (three) Center tablet times daily. furosemide 2018-0 Yes 40mg Take [address] (LASIX) 40 4-01 by mouth [facility] MG tablet 03:27: every Medical 05 other day. [place] amLODIPine 2018-0 Yes 10mg QD Take [address] (NORVASC) 4-01 by mouth [facility] 10 MG 03:27: daily. Medical tablet 05 [place] cloNIDine 2018-0 Yes .3mg Q.[id number] Take 0.[address] HCl 4-01 [id number] mg by [facility] (CATAPRES) 03:27: 3D mouth 3 Medi jennifer 0.3 MG 05 (three) Center tablet times daily. furosemide 2018-0 Yes 40mg Take [address] (LASIX) 40 4-01 by mouth [facility] MG tablet 03:27: every Medical 05 other day. [place] amLODIPine 2018-0 Yes 10mg QD Take [address] (NORVASC) 4-01 by mouth [facility] 10 MG 03:27: daily. Medical tablet 05 [place] cloNIDine 2018-0 Yes .3mg Q.[id number] Take 0.[address] HCl 4-01 [id number] mg by [facility] (CATAPRES) 03:27: 3D mouth 3 Medi jennifer 0.3 MG 05 (three) Center tablet times daily. furosemide 2018-0 Yes 40mg Take [address] (LASIX) 40 4-01 by mouth [facility] MG tablet 03:27: every Medical 05 other day. [place] amLODIPine 2018-0 Yes 10mg QD Take [address] (NORVASC) 4-01 by mouth [facility] 10 MG 03:27: daily. Medical tablet 05 [place] cloNIDine 2018-0 Yes .3mg Q.[id number] Take 0.[address] HCl 4-01 [id number] mg by [facility] (CATAPRES) 03:27: 3D mouth 3 Medi jennifer 0.3 MG 05 (three) Center tablet times daily. furosemide 2018-0 Yes 40mg Take [address] (LASIX) 40 4-01 by mouth [facility] MG tablet 03:27: every Medical 05 other day. [place] amLODIPine 2018-0 Yes 10mg QD Take [address] (NORVASC) 4-01 by mouth [facility] 10 MG 03:27: daily. Medical tablet 05 [place] cloNIDine 2018-0 Yes .3mg Q.[id number] Take 0.[address] HCl 4-01 [id number] mg by [facility] (CATAPRES) 03:27: 3D mouth 3 Medi jennifer 0.3 MG 05 (three) Center tablet times daily. furosemide 2018-0 Yes 40mg Take [address] (LASIX) 40 4-01 by mouth [facility] MG tablet 03:27: every Medical 05 other day. [place] amLODIPine 2018-0 Yes 10mg QD Take [address] (NORVASC) 4-01 by mouth [facility] 10 MG 03:27: daily. Medical tablet 05 [place] cloNIDine 2018-0 Yes .3mg Q.[id number] Take 0.[address] HCl 4-01 [id number] mg by [facility] (CATAPRES) 03:27: 3D mouth 3 Medi jennifer 0.3 MG 05 (three) Center tablet times daily. furosemide 2018-0 Yes 40mg Take [address] (LASIX) 40 4-01 by mouth [facility] MG tablet 03:27: every Medical 05 other day. [place] amLODIPine 2018-0 Yes 10mg QD Take [address] (NORVASC) 4-01 by mouth [facility] 10 MG 03:27: daily. Medical tablet 05 [place] cloNIDine 2018-0 Yes .3mg Q.[id number] Take 0.[address] HCl 4-01 [id number] mg by [facility] (CATAPRES) 03:27: 3D mouth 3 Medi jennifer 0.3 MG 05 (three) Center tablet times daily. furosemide 2018-0 Yes 40mg Take [address] (LASIX) 40 4-01 by mouth [facility] MG tablet 03:27: every Medical 05 other day. [place] amLODIPine 2018-0 Yes 10mg QD Take [address] (NORVASC) 4-01 by mouth [facility] 10 MG 03:27: daily. Medical tablet 05 [place] cloNIDine 2018-0 Yes .3mg Q.[id number] Take 0.[address] HCl 4-01 [id number] mg by [facility] (CATAPRES) 03:27: 3D mouth 3 Medi jennifer 0.3 MG 05 (three) Center tablet times daily. furosemide 2018-0 Yes 40mg Take [address] (LASIX) 40 4-01 by mouth [facility] MG tablet 03:27: every Medical 05 other day. [place] amLODIPine 2018-0 Yes 10mg QD Take [address] (NORVASC) 4-01 by mouth [facility] 10 MG 03:27: daily. Medical tablet 05 Center cloNIDine 2018-0 Yes .3mg Q.[id number] Take 0.[address] HCl 4-01 [id number] mg by [facility] (CATAPRES) 03:27: 3D mouth 3 Medi jennifer 0.3 MG 05 (three) Center tablet times daily. furosemide 2018-0 Yes 40mg Take [address] (LASIX) 40 4-01 by mouth [facility] MG tablet 03:27: every Medical 05 other day. [place] amLODIPine 2018-0 Yes 10mg QD Take [address] (NORVASC) 4-01 by mouth [facility] 10 MG 03:27: daily. Medical tablet 05 [place] cloNIDine 2018-0 Yes .3mg Q.[id number] Take 0.[address] HCl 4-01 [id number] mg by [facility] (CATAPRES) 03:27: 3D mouth 3 Medi jennifer 0.3 MG 05 (three) Center tablet times daily. furosemide 2018-0 Yes 40mg Take [address] (LASIX) 40 4-01 by mouth [facility] MG tablet 03:27: every Medical 05 other day. [place] amLODIPine 2018-0 Yes 10mg QD Take [address] (NORVASC) 4-01 by mouth [facility] 10 MG 03:27: daily. Medical tablet 05 Center cloNIDine 2018-0 Yes .3mg Q.[id number] Take 0.[address] HCl 4-01 [id number] mg by [facility] (CATAPRES) 03:27: 3D mouth 3 Medi jennifer 0.3 MG 05 (three) Center tablet times daily. furosemide 2018-0 Yes 40mg Take [address] (LASIX) 40 4-01 by mouth [facility] MG tablet 03:27: every Medical 05 other day. [place] amLODIPine Yes 10mg QD Take [address] (NORVASC) 4-01 by mouth [facility] 10 MG 03:27: daily. Medical tablet 05 [place] cloNIDine Yes .3mg Q.[id number] Take 0.[address] HCl 4- [id number] mg by [facility] (CATAPRES) 03:27: 3D mouth 3 Medi jennifer 0.3 MG 05 (three) Center tablet times daily. furosemide Yes 40mg Take [address] (LASIX) 40 4-01 by mouth [facility] MG tablet 03:27: every Medical 05 other day. [place] amLODIPine Yes 10mg QD Take [address] (NORVASC) 4-01 by mouth [facility] 10 MG 03:27: daily. Medical tablet 05 [place] cloNIDine Yes .3mg Q.[id number] Take 0.[address] HCl 4-01 [id number] mg by [facility] (CATAPRES) 03:27: 3D mouth 3 Medi jennifer 0.3 MG 05 (three) [place] tablet times daily. Immunizations Ordered Filled Immunization Date Status Comments [facility] e Immunization Name Name SARS-COV-2 COVID-19 2020-09-28 Completed Unive rsity of PFIZER VACCINE 00:00:00 [facility] SARS-COV-2 COVID-19 2020-09-28 Completed Unive rsity of PFIZER VACCINE 00:00:00 [facility] SARS-COV-2 COVID-19 2020-09-07 Completed Unive rsity of PFIZER VACCINE 00:00:00 [facility] SARS-COV-2 COVID-19 2020-09-07 Completed Unive rsity of PFIZER VACCINE 00:00:00 [facility] Vital Signs Vital Name Observation Time Observation Value Comments Source Systolic blood 2022-11-27 15:10:00 172 mm[Hg] Univer sity of pressure [facility] Diastolic blood 2022-11-27 15:10:00 109 mm[Hg] Unive rsity of pressure [facility] Heart rate 2022-11-27 15:10:00 89 /min [facility] Respiratory rate 2022-11-27 15[facility]10:00 17 /[facility] Body weight 2022-11-27 15:10:00 80.74 kg [facility] Oxygen saturation in 2022-11-27 15:10:00 98 /min [facility] Arterial blood by [facility] Pulse oximetry Branch Procedures Procedure Date / Time Performed Performing Clinician Dave mckeon MR BRAIN WO CONTRAST 2022-11-27 16:27:30 Paolo Ly [facility] Plan of Care Planned Activity Planned Date Details Comments Source Future Scheduled 2023-03-[address] [facility] 00:00:00 (Season Ended) [code = Medic al Center INFLUENZA VACCINE (Season Ended)] Future Scheduled 2023-03-[address] [facility] Test 00:00:00 (Season Ended) [code = Medic al Center INFLUENZA VACCINE (Season Ended)] Future Scheduled 2023-03-[address] [facility] Test 00:00:00 (Season Ended) [code = Medic al Center INFLUENZA VACCINE (Season Ended)] Future Scheduled 2023-03-[address] [facility] Test 00:00:00 (Season Ended) [code = Medic al Center INFLUENZA VACCINE (Season Ended)] Future Scheduled 2023-03-16 Influenza Vaccine (#1) [facility] 00:00:00 [code = Influenza Medical Ce nter Vaccine (#1)] Future Scheduled 2022-07-16 [place]ALLS RISK SCREENING CHI [...] enter SCREENING] Future Scheduled 2022-03-16 INFLUENZA VACCINE (#1) [facility] 00:00:00 [code = INFLUENZA Medical Ce nter VACCINE (#1)] Future Scheduled 2022-03-16 INFLUENZA VACCINE (#1) [facility] 00:00:00 [code = INFLUENZA Medical Ce nter VACCINE (#1)] Future Scheduled 2022-03-16 INFLUENZA VACCINE (#1) [facility] 00:00:00 [code = INFLUENZA Medical Ce nter VACCINE (#1)] Future Scheduled 2022-03-16 INFLUENZA VACCINE (#1) [facility] 00:00:00 [code = INFLUENZA Medical Ce nter VACCINE (#1)] Future Scheduled 2022-03-16 INFLUENZA VACCINE (#1) [facility] 00:00:00 [code = INFLUENZA Medical Ce nter VACCINE (#1)] Future Scheduled 2022-03-16 INFLUENZA VACCINE (#1) [facility] 00:00:00 [code = INFLUENZA Medical Ce nter VACCINE (#1)] Future Scheduled 2022-03-16 INFLUENZA VACCINE (#1) [facility] 00:00:00 [code = INFLUENZA Medical Ce nter VACCINE (#1)] Future Scheduled 2022-03-16 INFLUENZA VACCINE (#1) [facility] 00:00:00 [code = INFLUENZA Medical Ce nter VACCINE (#1)] Future Scheduled 2022-03-16 INFLUENZA VACCINE (#1) [facility] 00:00:00 [code = INFLUENZA Medical Ce nter VACCINE (#1)] Future Scheduled 2022-03-16 INFLUENZA VACCINE (#1) [facility] 00:00:00 [code = INFLUENZA Medical Ce nter VACCINE (#1)] Future Scheduled 2022-03-16 INFLUENZA VACCINE (#1) [facility] 00:00:00 [code = INFLUENZA Medical Ce nter VACCINE (#1)] Future Scheduled 2022-03-16 INFLUENZA VACCINE (#1) [facility] 00:00:00 [code = INFLUENZA Medical Ce nter VACCINE (#1)] Future Scheduled 2022-03-16 INFLUENZA VACCINE (#1) [facility] 00:00:00 [code = INFLUENZA Medical Ce nter VACCINE (#1)] Future Scheduled 2022-03-16 INFLUENZA VACCINE (#1) [facility] 00:00:00 [code = INFLUENZA Medical Ce nter VACCINE (#1)] Future Scheduled 2022-03-16 INFLUENZA VACCINE (#1) [facility] 00:00:00 [code = INFLUENZA Medical Ce nter VACCINE (#1)] Future Scheduled 2021-07-[address] [facility] 00:00:00 (12+) [code = [facility] Center DEPRESSION SCREENING (12+)] Future Scheduled 2021-07-16 FALLS RISK SCREENING [facility] 00:00:00 [code = FALLS RISK Medical C enter SCREENING] Future Scheduled 2021-02-28 COVID-19 VACCINE (3 - [facility]:00 Booster for Pfizer Medical C enter series) [code = COVID-19 VACCINE (3 - Booster for Pfizer series)] Future Scheduled 2021-02-28 COVID-19 VACCINE (3 [facility]:00:00 Booster for Pfizer Medical C enter series) [code = COVID-19 VACCINE (3 - Booster for Pfizer series)] Future Scheduled 2021-02-28 COVID-19 VACCINE (3 - [facility] 00:00:00 Booster for Pfizer Medical C enter series) [code = COVID-19 VACCINE (3 - Booster for Pfizer series)] Future Scheduled 2021-02-28 COVID-19 VACCINE (3 - [facility] 00:00:00 Booster for Pfizer Medical C enter series) [code = COVID-19 VACCINE (3 - Booster for Pfizer series)] Future Scheduled 2021-02-28 COVID-19 VACCINE (3 - [facility] 00:00:00 Booster for Pfizer Medical C enter series) [code = COVID-19 VACCINE (3 - Booster for Pfizer series)] Future Scheduled 2021-02-28 COVID-19 VACCINE (3 - [facility] 00:00:00 Booster for Pfizer Medical C enter series) [code = COVID-19 VACCINE (3 - Booster for Pfizer series)] Future Scheduled 2021-02-28 COVID-19 VACCINE (3 - [facility] 00:00:00 Booster for Pfizer Medical C enter series) [code = COVID-19 VACCINE (3 - Booster for Pfizer series)] Future Scheduled 2021-02-28 COVID-19 VACCINE (3 - [facility] 00:00:00 Booster for Pfizer Medical C enter series) [code = COVID-19 VACCINE (3 - Booster for Pfizer series)] Future Scheduled 2021-02-28 COVID-19 VACCINE (3 - [facility] 00:00:00 Booster for Pfizer Medical C enter series) [code = COVID-19 VACCINE (3 - Booster for Pfizer series)] Future Scheduled 2021-02-28 COVID-19 VACCINE (3 - [facility] 00:00:00 Booster for Pfizer Medical C enter series) [code = COVID-19 VACCINE (3 - Booster for Pfizer series)] Future Scheduled 2021-02-28 COVID-19 VACCINE (3 - [facility] 00:00:00 Booster for Pfizer Medical C enter series) [code = COVID-19 VACCINE (3 - Booster for Pfizer series)] Future Scheduled 2021-02-28 COVID-19 VACCINE (3 - [facility] 00:00:00 Booster for Pfizer Medical C enter series) [code = COVID-19 VACCINE (3 - Booster for Pfizer series)] Future Scheduled 2021-02-28 COVID-19 VACCINE (3 - [facility] 00:00:00 Booster for Pfizer Medical C enter series) [code = COVID-19 VACCINE (3 - Booster for Pfizer series)] Future Scheduled 2021-02-28 COVID-19 VACCINE (3 - [facility] 00:00:00 Booster for Pfizer Medical C enter series) [code = COVID-19 VACCINE (3 - Booster for Pfizer series)] Future Scheduled 2020-11-23 COVID-19 VACCINE (3 - [facility] 00:00:00 Booster for Pfizer Medical C enter series) [code = COVID-19 VACCINE (3 - Booster for Pfizer series)] Future Scheduled 2020-11-23 COVID-19 VACCINE (3 - [facility] 00:00:00 Booster for Pfizer Medical C enter series) [code = COVID-19 VACCINE (3 - Booster for Pfizer series)] Future Scheduled 2020-11-23 COVID-19 VACCINE (3 - [facility] 00:00:00 Booster for Pfizer Medical C enter series) [code = COVID-19 VACCINE (3 - Booster for Pfizer series)] Future Scheduled 2020-11-23 COVID-19 VACCINE (3 - [facility] 00:00:00 Booster for Pfizer Medical C enter series) [code = COVID-19 VACCINE (3 - Booster for Pfizer series)] Future Scheduled 2020-11-23 COVID-19 VACCINE (3 - [facility] 00:00:00 Booster for Pfizer Medical C enter series) [code = COVID-19 VACCINE (3 - Booster for Pfizer series)] Future Scheduled 2020-11-23 COVID-19 VACCINE (3 - [facility] 00:00:00 Booster for Pfizer Medical C enter series) [code = COVID-19 VACCINE (3 - Booster for Pfizer series)] Future Scheduled 2018-07-[address] [...] IPPE)] Future Scheduled 2017 PNEUMOCOCCAL 65+ YRS ([address] [facility] 00:00:00 - PCV) [code = Medical Cente r PNEUMOCOCCAL 65+ YRS (1 - PCV)] Future Scheduled 2017 PNEUMOCOCCAL 65+ YRS ([address] [facility] 00:00:00 - PCV) [code = Medical Cente r PNEUMOCOCCAL 65+ YRS (1 - PCV)] Future Scheduled 2017 PNEUMOCOCCAL 65+ YRS ([address] [facility] 00:00:00 - PCV) [code = Medical Cente r PNEUMOCOCCAL 65+ YRS (1 - PCV)] Future Scheduled 2017 PNEUMOCOCCAL 65+ YRS ([address] [facility] 00:00:00 - PCV) [code = Medical Cente r PNEUMOCOCCAL 65+ YRS (1 - PCV)] Future Scheduled 2017 PNEUMOCOCCAL 65+ YRS ([address] [facility] 00:00:00 - PCV) [code = Medical Cente r PNEUMOCOCCAL 65+ YRS (1 - PCV)] Future Scheduled 2017 PNEUMOCOCCAL 65+ YRS ([address] [facility] 00:00:00 - PCV) [code = Medical Cente r PNEUMOCOCCAL 65+ YRS (1 - PCV)] Future Scheduled 2017 PNEUMOCOCCAL 65+ YRS ([address] [facility] 00:00:00 - PCV) [code = Medical Cente r PNEUMOCOCCAL 65+ YRS (1 - PCV)] Future Scheduled 2017 PNEUMOCOCCAL 65+ YRS ([address] [facility] 00:00:00 - PCV) [code = Medical Cente r PNEUMOCOCCAL 65+ YRS (1 - PCV)] Future Scheduled 2017 PNEUMOCOCCAL 65+ YRS ([address] [facility] 00:00:00 - PCV) [code = Medical Cente r PNEUMOCOCCAL 65+ YRS (1 - PCV)] Future Scheduled 2017 PNEUMOCOCCAL 65+ YRS ([address] [facility] 00:00:00 - PCV) [code = Medical Cente r PNEUMOCOCCAL 65+ YRS (1 - PCV)] Future Scheduled 2017 PNEUMOCOCCAL 65+ YRS ([address] [facility] 00:00:00 - PCV) [code = Medical Cente r PNEUMOCOCCAL 65+ YRS (1 - PCV)] Future Scheduled 2017 PNEUMOCOCCAL 65+ YRS ([address] [facility] 00:00:00 - PCV) [code = Medical Cente r PNEUMOCOCCAL 65+ YRS (1 - PCV)] Future Scheduled 2017 PNEUMOCOCCAL 65+ YRS ([address] [facility] 00:00:00 - PCV) [code = Medical Cente r PNEUMOCOCCAL 65+ YRS (1 - PCV)] Future Scheduled 2017 PNEUMOCOCCAL 65+ YRS ([address] [facility] 00:00:00 - PCV) [code = Medical Cente r PNEUMOCOCCAL 65+ YRS (1 - PCV)] Future Scheduled 2017 PNEUMOCOCCAL 65+ YRS ([address] [facility] 00:00:00 - PCV) [code = Medical Cente r PNEUMOCOCCAL 65+ YRS (1 - PCV)] Future Scheduled 2017 PNEUMOCOCCAL 65+ YRS ([address] [facility] 00:00:00 - PCV) [code = Medical Cente r PNEUMOCOCCAL 65+ YRS (1 - PCV)] Future Scheduled 2017 PNEUMOCOCCAL 65+ YRS ([address] [facility] 00:00:00 - PCV) [code = Medical Cente r PNEUMOCOCCAL 65+ YRS (1 - PCV)] Future Scheduled 2017 PNEUMOCOCCAL 65+ YRS ([address] [facility] 00:00:00 - PCV) [code = Medical Cente r PNEUMOCOCCAL 65+ YRS (1 - PCV)] Future Scheduled 2017 PNEUMOCOCCAL 65+ YRS ([address] [facility] 00:00:00 - PCV) [code = Medical Cente r PNEUMOCOCCAL 65+ YRS (1 - PCV)] Future Scheduled 2017 PNEUMOCOCCAL 65+ YRS ([address] [facility] 00:00:00 - PCV) [code = Medical Cente r PNEUMOCOCCAL 65+ YRS (1 - PCV)] Future Scheduled 2002 SHINGLES VACCINES ([address] [facility] 00:00:00 2) [code = SHINGLES Medical Center VACCINES (1 of 2)] Future Scheduled 2002 SHINGLES VACCINES ([address] [facility] 00:00:00 2) [code = SHINGLES Medical Center VACCINES (1 of 2)] Future Scheduled 2002 SHINGLES VACCINES ([address] [facility] 00:00:00 2) [code = SHINGLES Medical Center VACCINES (1 of 2)] Future Scheduled 2002 SHINGLES VACCINES ([address] [facility] 00:00:00 2) [code = SHINGLES Medical Center VACCINES (1 of 2)] Future Scheduled 2002 SHINGLES VACCINES ([address] [facility] 00:00:00 2) [code = SHINGLES Medical Center VACCINES (1 of 2)] Future Scheduled 2002 SHINGLES VACCINES ([address] [facility] 00:00:00 2) [code = SHINGLES Medical Center VACCINES (1 of 2)] Future Scheduled 2002 SHINGLES VACCINES ([address] [facility] 00:00:00 2) [code = SHINGLES Medical Center VACCINES (1 of 2)] Future Scheduled 2002 SHINGLES VACCINES ([address] [facility] 00:00:00 2) [code = SHINGLES Medical Center VACCINES (1 of 2)] Future Scheduled 2002 SHINGLES VACCINES ([address] [facility] 00:00:00 2) [code = SHINGLES Medical Center VACCINES (1 of 2)] Future Scheduled 2002 SHINGLES VACCINES ([address] [facility] 00:00:00 2) [code = SHINGLES Medical Center VACCINES (1 of 2)] Future Scheduled 2002 SHINGLES VACCINES ([address] [facility] 00:00:00 2) [code = SHINGLES Medical Center VACCINES (1 of 2)] Future Scheduled 2002 SHINGLES VACCINES ([address] [facility] 00:00:00 2) [code = SHINGLES Medical Center VACCINES (1 of 2)] Future Scheduled 2002 SHINGLES VACCINES ([address] [facility] 00:00:00 2) [code = SHINGLES Medical Center VACCINES (1 of 2)] Future Scheduled 2002 SHINGLES VACCINES ([address] [facility] 00:00:00 2) [code = [facility] (1 of 2)] Future Scheduled 2002 [facility] V[facility] ([address] [facility] 00:00:00 2) [code = [facility] (1 of 2)] Future Scheduled 2002 [facility]LES VACCINES ([address] [facility] 00:00:00 2) [code = [facility] (1 of 2)] Future Scheduled 2002 SHINGLES VACCINES ([address] [facility] 00:00:00 2) [code = [facility] (1 of 2)] Future Scheduled 2002 [facility]LES VACCINES ([address] [facility] 00:00:00 2) [code [facility] (1 of 2)] Future Scheduled 2002 [facility]LES VACCINES ([address] [facility] 00:00:00 2) [code [facility] (1 of 2)] Future Scheduled 2002 SHINGLES VACCINES ([address] [facility] 00:00:00 2) [code = [facility] (1 of 2)] Future Scheduled 1971 DTAP/TDAP/TD [facility]ES [facility] 00:00:00 (1 - Tdap) [code = Medical C enter DTAP/TDAP/TD VACCINES (1 - Tdap)] Future Scheduled 1971 DTAP/TDAP/TD [facility]ES [facility] 00:00:00 (1 - Tdap) [code = Medical C enter DTAP/TDAP/TD VACCINES (1 - Tdap)] Future Scheduled 1971 DTAP/TDAP/TD [facility]INES [facility] 00:00:00 (1 - Tdap) [code = Medical C enter DTAP/TDAP/TD VACCINES (1 - Tdap)] Future Scheduled 1971 DTAP/TDAP/TD [facility]INES [facility] 00:00:00 (1 - Tdap) [code = Medical C enter DTAP/TDAP/TD VACCINES (1 - Tdap)] Future Scheduled 1971 DTAP/TDAP/TD [facility]INES [facility] 00:00:00 (1 - Tdap) [code = Medical C enter DTAP/TDAP/TD VACCINES (1 - Tdap)] Future Scheduled 1971 DTAP/TDAP/TD [facility]ES [facility] 00:00:00 (1 - Tdap) [code = Medical C enter DTAP/TDAP/TD VACCINES (1 - Tdap)] Future Scheduled 1971 DTAP/TDAP/TD [facility]INES [facility] 00:00:00 (1 - Tdap) [code = Medical C enter DTAP/TDAP/TD VACCINES (1 - Tdap)] Future Scheduled 1971 DTAP/TDAP/TD [facility]INES [facility] 00:00:00 (1 - Tdap) [code = Medical C enter DTAP/TDAP/TD VACCINES (1 - Tdap)] Future Scheduled 1971 DTAP/TDAP/TD [facility]ES [facility] 00:00:00 (1 - Tdap) [code = Medical C enter DTAP/TDAP/TD VACCINES (1 - Tdap)] Future Scheduled 1971 DTAP/TDAP/TD [facility]INES [facility] 00:00:00 (1 - Tdap) [code = Medical C enter DTAP/TDAP/TD VACCINES (1 - Tdap)] Future Scheduled 1971 DTAP/TDAP/TD [facility]INES [facility] 00:00:00 (1 - Tdap) [code = Medical C enter DTAP/TDAP/TD VACCINES (1 - Tdap)] Future Scheduled 1971 DTAP/TDAP/TD [facility]INES [facility] 00:00:00 (1 - Tdap) [code = Medical C enter DTAP/TDAP/TD VACCINES (1 - Tdap)] Future Scheduled 1971 DTAP/TDAP/TD [facility]ES [facility] 00:00:00 (1 - Tdap) [code = Medical C enter DTAP/TDAP/TD VACCINES (1 - Tdap)] Future Scheduled 1971 DTAP/TDAP/TD [facility]ES [facility] 00:00:00 (1 - Tdap) [code = Medical C enter DTAP/TDAP/TD VACCINES (1 - Tdap)] Future Scheduled 1971 DTAP/TDAP/TD [facility]ES [facility] 00:00:00 (1 - Tdap) [code = Medical C enter DTAP/TDAP/TD VACCINES (1 - Tdap)] Future Scheduled 1971 DTAP/TDAP/TD [facility]ES [facility] 00:00:00 (1 - Tdap) [code = Medical C enter DTAP/TDAP/TD VACCINES (1 - Tdap)] Future Scheduled 1971 DTAP/TDAP/TD [facility]ES [facility] 00:00:00 (1 - Tdap) [code = Medical C enter DTAP/TDAP/TD VACCINES (1 - Tdap)] Future Scheduled 1971 DTAP/TDAP/TD V[facility]INES [facility] 00:00:00 (1 - Tdap) [code = Medical C enter DTAP/TDAP/TD VACCINES (1 - Tdap)] Future Scheduled 1971 DTAP/TDAP/TD [facility]ES [facility] 00:00:00 (1 - Tdap) [code = Medical C enter DTAP/TDAP/TD VACCINES (1 - Tdap)] Future Scheduled 1971 DTAP/TDAP/TD [facility]INES [facility] 00:00:00 (1 - Tdap) [code = Medical C enter DTAP/TDAP/TD VACCINES (1 - Tdap)] Future Scheduled 1970 [facility]] Future Scheduled 1970 [facility] [code = [facility] S[facility]] Future Scheduled 1970 [facility] [code = [facility] SCREENING] Future Scheduled 1970 [facility]IS C [facility] 00:00:00 [code = [facility] SCREENING] Future Scheduled 1970 [facility]IS C [facility] 00:00:[facility] [code = [facility] SCREENING] Future Scheduled 1970 [facility]IS [facility] 00:00[facility] [code = [facility] S[facility]] Future Scheduled 1970 [facility] 00:00:00 [code = [facility] S[facility]EN[facility]] Future Scheduled 1970 [facility] C [facility] 00:00:00 [code = [facility] S[facility]EN[facility]] Future Scheduled 1970 [facility] 00:00:00 [code = [facility] S[facility]EN[facility]] Future Scheduled 1970 [facility] 00:00:00 [code = [facility] SCREEN[facility]] Future Scheduled 1970 [facility] 00:00:00 [code = [facility] SCREENING] Future Scheduled 1970 [facility]:00:[facility] [code = [facility] S[facility]] Future Scheduled 1970 [facility] 00:00:00 [code = [facility] SCREEN[facility]] Future Scheduled 1970 [facility] 00:00:[facility] [code = [facility] SCREEN[facility]] Future Scheduled 1970 [facility] 00:00:00 [code = [facility] SCREENING] Future Scheduled 1970 [facility] 00:00:00 [code = [facility] SCREENING] Future Scheduled 1970 [facility] 00:00:00 [code = [facility] SCREENING] Future Scheduled 1970 [facility] 00:00:00 [code = [facility] SCREENING] Future Scheduled 1970 [facility] 00:00:[facility] [code = [facility] SCREENING] Future Scheduled 1970 [facility] [code = [facility] SCREENING] Future Scheduled 1964 [facility] C[facility]ation [facility] [...] Screening (12+)] Future Scheduled 1952 CT Colonography (combo) [facility] 00:00:00 [code = CT Colonography [facility] (combo)] Future Scheduled 1952 CT Colonography (combo) [facility] 00:00:00 [code = CT Colonography [facility] (combo)] Future Scheduled 1952 Screening for malignant [facility] 00:00:00 neoplasm of colon Medical Ce [facility]ter (procedure) [code = [id number]] Future Scheduled 1952 Screening for malignant [facility] 00:00:00 neoplasm of colon [facility] Ce [facility] (procedure) [code = [id number]] Future Scheduled 1952 Screening for malignant [facility] 00:00:00 neoplasm of colon [facility] Ce [facility] (procedure) [code = 147812202] Future Scheduled 1952 Screening for malignant [facility] 00:00:00 neoplasm of colon [facility] Ce [facility] (procedure) [code = 216264650] Future Scheduled 1952 Sigmoidoscopy [facility]code = [facility] Screening for malignant [facility] 00:00:00 neoplasm of colon [facility] Ce [facility] (procedure) [code = 548412408] Future Scheduled 1952 Screening for malignant [facility] 00:00:00 neoplasm of colon [facility] Ce [facility] (procedure) [code = 944604240] Future Scheduled 1952 CT Colonography (combo) [facility] 00:00:00 [code = CT Colonography [facility] (combo)] Future Scheduled 1952 Screening for malignant [facility] 00:00:00 neoplasm of colon Medical Ce [facility]ter (procedure) [code = 185585362] Future Scheduled 1952 Screening for malignant [facility] 00:00:00 neoplasm of colon Medical Ce [facility] (procedure) [code = 127546430] Future Scheduled 1952 Screening for malignant [facility] 00:00:00 neoplasm of colon Medical Ce [facility] (procedure) [code = 602334259] Future Scheduled 1952 Screening for malignant [facility] 00:00:00 neoplasm of colon [facility] Ce [facility] (procedure) [code = 403188757] Future Scheduled 1952 Sigmoidoscopy [facility]code = [facility] S[facility]oscopy] Medical Manae r Future Scheduled 1952 Screening for malignant [facility] 00:00:00 neoplasm of colon Medical Ce [facility] (procedure) [code = 966329412] Future Scheduled 1952 Screening for malignant [facility] 00:00:00 neoplasm of colon Medical Ce [facility] (procedure) [code = 042126510] Future Scheduled 1952 CT Colonography (combo) [facility] 00:00:00 [code = CT [facility] ([facility])] Future Scheduled 1952 Screening for malignant [facility] 00:00:00 neoplasm of colon Medical Ce [facility] (procedure) [code = 796842652] Future Scheduled 1952 Screening for malignant [facility] 00:00:00 neoplasm of colon Medical Ce [facility] (procedure) [code = 302346116] Future Scheduled 1952 Screening for malignant [facility] 00:00:00 neoplasm of colon [facility] Ce [facility] (procedure) [code = 223263804] Future Scheduled 1952 Screening for malignant [facility] 00:00:00 neoplasm of colon Medical Ce [facility]ter (procedure) [code = 173604179] Future Scheduled 1952 Sigmoidoscopy [facility] = [facility] S[facility]oidoscopy] Medical Manae r Future Scheduled 1952 Sigmoidoscopy [code = [facility] 00:[facility] Sigmoidoscopy] Medical Manae r Future Scheduled 1952 CT Colonography (combo) [facility] 00:00:00 [code = CT Colonography [facility] (combo)] Future Scheduled 1952 Screening for malignant [facility] 00:00:00 neoplasm of colon Medical Ce [facility]ter (procedure) [code = 502894527] Future Scheduled 1952 Screening for malignant [facility] 00:00:00 neoplasm of colon Medical Ce [facility] (procedure) [code = 421300751] Future Scheduled 1952 Screening for malignant [facility] 00:00:00 neoplasm of colon Medical Ce [facility] (procedure) [code = 011714814] Future Scheduled 1952 Screening for malignant [facility] 00:00:00 neoplasm of colon Medical Ce [facility] (procedure) [code = 490565527] Future Scheduled 1952 Sigmoidoscopy [facility] S[facility]] [facility] Future Scheduled 1952 CT Colonography (combo) [facility] 00:00:00 [code = CT [facility] (combo)] Future Scheduled 1952 Screening for malignant [facility] 00:00:00 neoplasm of colon Medical Ce nter (procedure) [code = 789508595] Future Scheduled 1952 Screening for malignant [facility] 00:00:00 neoplasm of colon Medical Ce [facility]ter (procedure) [code = 307079904] Future Scheduled 1952 Screening for malignant [facility] 00:00:00 neoplasm of colon Medical Ce [facility] (procedure) [code = 795619531] Future Scheduled 1952 Screening for malignant [facility] 00:00:00 neoplasm of colon Medical Ce [facility]ter (procedure) [code = 645888070] Future Scheduled 1952 Sigmoidoscopy [facility] = [facility] S[facility]] [facility] Cent[facility] Future Scheduled 1952 CT Colonography (combo) [facility] 00:00:00 [code = CT Colonography [facility] (combo)] Future Scheduled 1952 Screening for malignant [facility] 00:00:00 neoplasm of colon Medical Ce [facility]ter (procedure) [code = 575046818] Future Scheduled 1952 Screening for malignant [facility] 00:00:00 neoplasm of colon Medical Ce [facility]ter (procedure) [code = 954502689] Future Scheduled 1952 Screening for malignant [facility] 00:00:00 neoplasm of colon Medical Ce [facility] (procedure) [code = 581016869] Future Scheduled 1952 Screening for malignant [facility] 00:00:00 neoplasm of colon [facility] Ce [facility] (procedure) [code = 426768390] Future Scheduled 1952 Sigmoidoscopy [facility] S[facility]] [facility] Future Scheduled 1952 CT Colonography (combo) [facility] 00:00:00 [code = CT Colonography [facility] (combo)] Future Scheduled 1952 Screening for malignant [facility] 00:00:00 neoplasm of colon Medical Ce [facility] (procedure) [code = 540793296] Future Scheduled 1952 Screening for malignant [facility] 00:00:00 neoplasm of colon Medical Ce [facility] (procedure) [code = 469424609] Future Scheduled 1952 Screening for malignant [facility] 00:00:00 neoplasm of colon Medical Ce [facility]ter (procedure) [code = 040671314] Future Scheduled 1952 Screening for malignant [facility] 00:00:00 neoplasm of colon Medical Ce [facility]ter (procedure) [code = 540633241] Future Scheduled 1952 Sigmoidoscopy [facility]code [facility] S[facility]oidoscopy] [facility] Future Scheduled 1952 CT Colonography (combo) [facility] 00:00:00 [code = CT Colonography [facility] (combo)] Future Scheduled 1952 Screening for malignant [facility] 00:00:00 neoplasm of colon Medical Ce [facility]ter (procedure) [code = 733142653] Future Scheduled 1952 Screening for malignant [facility] 00:00:00 neoplasm of colon Medical Ce [facility]ter (procedure) [code = 449423897] Future Scheduled 1952 Screening for malignant [facility] 00:00:00 neoplasm of colon Medical Ce [facility]ter (procedure) [code = 691674036] Future Scheduled 1952 Screening for malignant [facility] 00:00:00 neoplasm of colon Medical Ce [facility]ter (procedure) [code = 524894643] Future Scheduled 1952 Sigmoidoscopy [facility]code = [facility] S[facility]oidoscopy] [facility] Future Scheduled 1952 CT Colonography (combo) [facility] 00:00:00 [code = CT [facility] (combo)] Future Scheduled 1952 Screening for malignant [facility] 00:00:00 neoplasm of colon Medical Ce [facility]ter (procedure) [code = 836724659] Future Scheduled 1952 Screening for malignant [facility] 00:00:00 neoplasm of colon Medical Ce nter (procedure) [code = 028142226] Future Scheduled 1952 Screening for malignant [facility] 00:00:00 neoplasm of colon Medical Ce [facility]ter (procedure) [code = 816188654] Future Scheduled 1952 Screening for malignant [facility] 00:00:00 neoplasm of colon Medical Ce nter (procedure) [code = 440522479] Future Scheduled 1952 Sigmoidoscopy [facility]code = [facility] S[facility]oscopy] [facility] Future Scheduled 1952 CT Colonography (combo) [facility] 00:00:00 [code = CT [facility] (com[facility])] Future Scheduled 1952 Screening for malignant [facility] 00:00:00 neoplasm of colon Medical Ce [facility]ter (procedure) [code = 826165351] Future Scheduled 1952 Screening for malignant [facility] 00:00:00 neoplasm of colon Medical Ce [facility]ter (procedure) [code = 026440650] Future Scheduled 1952 Screening for malignant [facility] 00:00:00 neoplasm of colon Medical Ce [facility]ter (procedure) [code = 943192989] Future Scheduled 1952 CT Colonography (combo) [facility] 00:00:00 [code = CT [facility] (combo)] Future Scheduled 1952 Screening for malignant [facility] 00:00:00 neoplasm of colon Medical Ce nter (procedure) [code = 352963933] Future Scheduled 1952 Sigmoidoscopy [facility]code = [facility] S[facility]oidoscopy] [facility] Cent[facility] Future Scheduled 1952 Screening for malignant [facility] 00:00:00 neoplasm of colon Medical Ce nter (procedure) [code = 799111062] Future Scheduled 1952 CT Colonography (combo) [facility] 00:00:00 [code = CT Colonography [facility] (combo)] Future Scheduled 1952 Screening for malignant [facility] 00:00:00 neoplasm of colon Medical Ce nter (procedure) [code = 681009569] Future Scheduled 1952 Screening for malignant [facility] 00:00:00 neoplasm of colon Medical Ce nter (procedure) [code = 335555928] Future Scheduled 1952 Screening for malignant [facility] 00:00:00 neoplasm of colon Medical Ce nter (procedure) [code = 298717550] Future Scheduled 1952 Screening for malignant [facility] 00:00:00 neoplasm of colon Medical Ce [facility]ter (procedure) [code = 203214829] Future Scheduled 1952 Screening for malignant [facility] 00:00:00 neoplasm of colon Medical Ce nter (procedure) [code = 294086059] Future Scheduled 1952 Sigmoidoscopy [facility]code = [facility] S[facility]oscopy] [facility] Cent[facility] Future Scheduled 1952 Screening for malignant [facility] 00:00:00 neoplasm of colon Medical Ce nter (procedure) [code = 977337044] Future Scheduled 1952 CT Colonography (combo) [facility] 00:00:00 [code = CT Colonography [facility] (combo)] Future Scheduled 1952 Screening for malignant [facility] 00:00:00 neoplasm of colon Medical Ce [facility]ter (procedure) [code = 052458162] Future Scheduled 1952 Screening for malignant [facility] 00:00:00 neoplasm of colon Medical Ce nter (procedure) [code = 491423834] Future Scheduled 1952 Screening for malignant [facility] 00:00:00 neoplasm of colon Medical Ce nter (procedure) [code = 793190701] Future Scheduled 1952 Screening for malignant [facility] 00:00:00 neoplasm of colon Medical Ce nter (procedure) [code = 119805948] Future Scheduled 1952 Sigmoidoscopy [facility]code [facility] S[facility]oscopy] Medical Manae r Future Scheduled 1952 Screening for malignant [facility] 00:00:00 neoplasm of colon Medical Ce nter (procedure) [code = 131876869] Future Scheduled 1952 Sigmoidoscopy [facility]code [facility] Sigmoidoscopy] Medical Manae r Future Scheduled 1952 CT Colonography (combo) [facility] 00:00:00 [code = CT [facility] (combo)] Future Scheduled 1952 Screening for malignant [facility] 00:00:00 neoplasm of colon Medical Ce [facility]ter (procedure) [code = 806656022] Future Scheduled 1952 Screening for malignant [facility] 00:00:00 neoplasm of colon Medical Ce nter (procedure) [code = 902252938] Future Scheduled 1952 Screening for malignant [facility] 00:00:00 neoplasm of colon Medical Ce nter (procedure) [code = 512165713] Future Scheduled 1952 Screening for malignant [facility] 00:00:00 neoplasm of colon Medical Ce nter (procedure) [code = 653589663] Future Scheduled 1952 Sigmoidoscopy [facility]code [facility] S[facility]oscopy] Medical Jana[facility] r Future Scheduled 1952 CT Colonography (combo) [facility] 00:00:00 [code = CT [facility] (combo)] Future Scheduled 1952 Screening for malignant [facility] 00:00:00 neoplasm of colon Medical Ce nter (procedure) [code = 677100335] Future Scheduled 1952 Screening for malignant [facility] 00:00:00 neoplasm of colon Medical Ce nter (procedure) [code = 454202169] Future Scheduled 1952 Screening for malignant [facility] 00:00:00 neoplasm of colon Medical Ce nter (procedure) [code = 798473711] Future Scheduled 1952 Screening for malignant [facility] 00:00:00 neoplasm of colon Medical Ce nter (procedure) [code = 618717575] Future Scheduled 1952 Sigmoidoscopy [facility]code [facility] S[facility]oscopy] [facility] Cent[facility] Future Scheduled 1952 CT Colonography (combo) [facility] 00:00:00 [code = CT Colonography [facility] (combo)] Future Scheduled 1952 Screening for malignant [facility] 00:00:00 neoplasm of colon Medical Ce nter (procedure) [code = 324332394] Future Scheduled 1952 Screening for malignant [facility] 00:00:00 neoplasm of colon Medical Ce nter (procedure) [code = 673798071] Future Scheduled 1952 Screening for malignant [facility] 00:00:00 neoplasm of colon Medical Ce nter (procedure) [code = 672016006] Future Scheduled 1952 Screening for malignant [facility] 00:00:00 neoplasm of colon Medical Ce nter (procedure) [code = 208387140] Future Scheduled 1952 Sigmoidoscopy [facility]code [facility] S[facility]oscopy] [facility] Cent[facility] Future Scheduled 1952 CT Colonography (combo) [facility] 00:00:00 [code = CT [facility] (combo)] Future Scheduled 1952 Screening for malignant [facility] 00:00:00 neoplasm of colon Medical Ce nter (procedure) [code = 590194897] Future Scheduled 1952 Screening for malignant [facility] 00:00:00 neoplasm of colon Medical Ce nter (procedure) [code = 751696428] Future Scheduled 1952 Screening for malignant [facility] 00:00:00 neoplasm of colon Medical Ce nter (procedure) [code = 181868927] Future Scheduled 1952 Screening for malignant [facility] 00:00:00 neoplasm of colon Medical Ce nter (procedure) [code = 833091918] Future Scheduled 1952 Sigmoidoscopy [facility]code [facility] S[facility]] [facility] Cent[facility] Future Scheduled 1952 CT Colonography (combo) [facility] 00:00:00 [code = CT Colonography [facility] (combo)] Future Scheduled 1952 Screening for malignant [facility] 00:00:00 neoplasm of colon Medical Ce nter (procedure) [code = 264916105] Future Scheduled 1952 Screening for malignant [facility] 00:00:00 neoplasm of colon Medical Ce nter (procedure) [code = 504703585] Future Scheduled 1952 Screening for malignant [facility] 00:00:00 neoplasm of colon Medical Ce nter (procedure) [code = 097615521] Future Scheduled 1952 Screening for malignant [facility] 00:00:00 neoplasm of colon Medical Ce nter (procedure) [code = 077016988] Future Scheduled 1952 Sigmoidoscopy [facility]code [facility] S[facility]oscopy] Medical Cent[facility] Future Scheduled 1952 CT Colonography (combo) [facility] 00:00:00 [code = CT Colonography [facility] (combo)] Future Scheduled 1952 Screening for malignant [facility] 00:00:00 neoplasm of colon Medical Ce nter (procedure) [code = 470887252] Future Scheduled 1952 Screening for malignant [facility] 00:00:00 neoplasm of colon Medical Ce nter (procedure) [code = 639458881] Future Scheduled 1952 Screening for malignant [facility] 00:00:00 neoplasm of colon Medical Ce nter (procedure) [code = 593396062] Future Scheduled 1952 Screening for malignant [facility] 00:00:00 neoplasm of colon Medical Ce nter (procedure) [code = 257737304] Future Scheduled 1952 S[facility]oidoscopy [facility] S[facility]oscopy] Medical Manae r Encounters Start End Encounter Admission Attending Care Care Encounter Source Date/Time Date/Time Type Type Clinicians Facility Department ID 2022-11-27 2022-11-27 Outpatient R RADIOLOGY [facility] [id number] [facility] 09:20:30 23:59:00 [facility] 2022-11-27 2022-11-27 Hospital Radiology [facility] [id number] [facility] 09:20:30 23:59:00 Encounter HEALTH [id number] [facility] [place] [id number] Gaviota COYNE [id number] [facility] [address] ([facility]) 2022-10-28 2022-10-28 Outpatient IMELDA Surya [facility] [id number] [facility] 17:30:00 17:30:00 Paolo 92 [facility] 2022-10-26 2022-10-26 Inpatient IMELDA Surya [facility] [id number] [facility] 11:00:00 11:00:00 Paolo 21 [facility] 2022-10-23 2022-10-23 Outpatient Surya [facility] [id number] [facility] 13:44:00 13:44:00 Paolo 38 [facility] 2022-10-23 2022-10-23 Outpatient IMELDA Ly [facility] [id number] [facility] 13:14:00 13:14:00 Paolo 97 [facility] 2020-05-25 2020-05-25 Outpatient [facility]AYA [facility] [id number] [facility] 00:00:00 00:00:00 DEMETRIUS 2020-05-25 2020-05-25 Outpatient [facility] [id number] [facility] 00:00:00 00:00:00 DEMETRIUS 2020-03-02 2020-03-02 Outpatient [facility] [id number] [facility] 00:00:00 00:00:00 Results Test Description Test Time Test Comments Results Result [facility] e Comments - CT HEAD/BRAIN 2022-10-28 W/O CONT 00:00:00 [facility] DORETHAName: JENNIFER BELLA : 1950 Sex: M [facility]: [facility] 1950 Age[facility]S: 72 / M [address] [place] [address] Unit #: [id number] Loc: AmayaNHAN [id number] Phys: Paolo Ly DO Acct: [id number] Dis Date: Status: REG CLI PHONE #: [phone] Exam Date: 10/28/20221800 FAX #: [phone] Reason: FALL EXAMS: CPT CODE: [id number] CT HEAD/BRAIN W/O CONT 96804 PROCEDURE INFORMATION: Exam: CT Head Without Contrast Exam date and time: 10/28/2022 5:59 PM Age: 72 years old Clinical indication: Altered mental status/memory loss; Additional info: Fall TECHNIQUE: Imaging protocol: Computed tomography of the head without contrast. Radiation optimization: All CT scans at this facility use at least one of these dose optimization techniques: automated exposure control; mA and/or kV adjustment per patient size (includes targeted exams where dose is matched to clinical indication); or iterative reconstruction. REPORTING DATA: Count of CT and Cardiac NM exams in prior 12 months: This patient has received [address] and 0 known cardiac nuclear medicine studies in the 12 months prior to the current study. 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 There is significant/severe central to less degree cortical atrophy of the supratentorial brain with diffuse gliosis/demyelination of the subcortical white matter. There is a chronic lacunar infarct in the central medial left thalamus which was present previously as well as in the body of the right caudate nucleus. The orbital globes are intact. There is a chronic lacunar infarct in the right thalamus and paramedian jd which is stable. There is no retrobulbar abnormality. There is no acute cortical infarct, parenchymal hemorrhage or intra axial mass. Sellae and para sellae structures are normal for age. There is no tonsillar ectopia. Cerebral ventricles: There is substantial/stable ventriculomegaly. Paranasal sinuses: Visualized sinuses are unremarkable. No fluid levels. Mastoid air cells: Visualized middle ear cavity, antrum and mastoid air cells are normally aerated. Bones/joints: Unremarkable. No acute fracture. Soft tissues: Unremarkable. IMPRESSION: There is significant /severe central/cortical atrophy with periventricular and subcortical gliosis and demyelination of the supratentorial brain. There is no acute cortical infarct, hemorrhage or intra axial mass. There is a chronic infarct of the mesial aspect of the right PAGE 1 Signed Report (CONTINUED) Name: JENNIFER BELLA [facility] : 1950 Age/S: 72 / M [address] [place] [address] Unit #: [id number] Loc: [place] [address] Phys: Paolo Ly DO Acct: [id number] Dis Date: Status: REG CLI PHONE #: [phone] Exam Date: 10/28/20221800 FAX #: [phone] Reason: FALL EXAMS: CPT CODE: [id number] CT HEAD/BRAIN W/O CONT 81644 (Continued) inferior cerebellar hemisphere which was present previously as well as 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 at 1849 Reported and signed by: Marcello Jaramillo M.D. CC: Paolo Ly DO Technologist:RT Felicitas(R)(CT) CTDI: DLP: Trnscb Date/Time: 10/28/2022 (184) [email or web address] Orig Print D/T: S: 10/28/2022 (1849) PAGE 2 Signed Report - CT HEAD/BRAIN 2022-10-23 W/O CONT 00:00:00 [facility] LILIANA BUFFALOName: JENNIFER BELLA : 1950 Sex: M Name: JENNIFER BELLA [facility] [place] : 1950 Age/S: 72 / M [address] [place] [address] Blvd Unit #: [id number] Loc: [place] [address] Phys: Paolo Ly DO Acct: [id number] Dis Date: Status: REG CLI PHONE #: [phone] Exam Date: 10/23/2022 1354 FAX #: [phone] Reason: INCREASED TONE CONFUSION. Report Has Been Amended EXAMS: CPT CODE: [id number] CT HEAD/BRAIN W/O CONT 27518 Addendum - 10/23/2022 SIGNED 10/23/2022 ADDENDUM: [id number] CT/CTHDBRWO Findings discussed with Dr. Ly at 3:05 p.m. central standard time at 1506 Reported and signed by: Salvador Ballesteros M.D. Addendum - 10/23/2022 SIGNED 10/23/[address]: [id number]/CTHDBRWO Attempt was made to contact personnel involved in patient's care beginning at 2:18 p.m. central standard time at 1447 Reported and signed by: Salvador Ballesteros M.D. Report PROCEDURE INFORMATION: Exam: CT Head Without Contrast Exam date and time: 10/23/2022 1:56 PM Age: 72 years old Clinical indication: Other: Increased tone confusion. TECHNIQUE: Imaging protocol: Computed tomography of the head without contrast. Radiation optimization: All CT scans at this facility use at least one of these dose optimization techniques: automated exposure control; mA and/or kV adjustment per patient size (includes targeted exams where dose is matched to clinical indication); or iterative reconstruction. REPORTING DATA: Count of CT and Cardiac NM exams in prior 12 months: This patient has received 0 known CTs and 0 known cardiac nuclear medicine studies in the 12 months prior to the current study. COMPARISON: No relevant prior studies available. FINDINGS: PAGE 1 Signed Report (CONTINUED) Name[facility] 1950 Age/S: 72 / M [address] [place] [address] Unit #: [id number] Loc: [place] [address] Phys: Paolo Ly DO Acct: [id number] Dis Date: Status: REG CLI PHONE #: [phone] Exam Date: 10/23/2022 1354 FAX #: [phone] Reason: INCREASED TONE CONFUSION. Report Has Been Amended EXAMS: CPT CODE: [id number] CT HEAD/BRAIN W/O CONT 70314 (Continued) Brain: Hypoattenuation consistent with age-indeterminate infarction in the inferior medial right cerebellar hemisphere. Maintained milian-white differentiation elsewhere in brain. No hemorrhage, midline shift nor abnormal extra-axial fluid collection. Moderate extent of nonspecific hypoattenuation in central white matter of both cerebral hemispheres. Cerebral ventricles: Midline in position. Moderately distended caliber with overlying sulcal widening. Paranasal sinuses: Visualized sinuses are unremarkable. No fluid levels. Mastoid air cells: Visualized mastoid air cells are well aerated. Orbital cavities: Unremarkable appearance of orbits. Bones/joints: No acute fracture. Soft tissues: Unremarkable. IMPRESSION: Possible age-indeterminate ischemic change in inferior medial right cerebellar hemisphere. If concerns persist regarding this finding, then correlation with brain MRI should be considered for further assessment. No acute intracranial process nor bony injury elsewhere in brain Moderate parenchymal atrophy Moderate extent of nonspecific central white matter changes at 1417 Reported and signed by: Salvador Ballesteros M.D. CC: Paolo Ly DO Technologist:Didi Weber RT(R)(CT) CTDI: DLP: Trnscb Date/Time: 10/23/2022 (141) [email or web address] Orig Print D/T: S: 10/23/2022 (1418) PAGE 2 Signed Report MR, ABDOMEN, 2020-05-25 Unlisted WITHOUT IV 16:51:00 Reason for CONTRAST Exam - Click [facility] - Yes and Enter [facility] Reason JENNIFER BELLA Below->YesUnl : 1950 Sex: isted Reason M for Exam->Persona FINAL REPORT l history of kidney cancer TECHNIQUE: MRI of the abdomen WITHOUT intravenous [...] septation measures 1.4 cm, previously 1.3 cm. PERITONEUM/RETROPERITONEU M: Small volume free fluid in the pelvis.LYMPH [...] MDReport Verified Date/Time: 05/25/2020 16:51:08 Reading Location: [address] Reading Room , CHEST, 2 2020-05-25 Reason for VIEWS 10:10:00 Exam:->[facility] : 1950 Sex: M FINAL REPORT EXAMINATION: RAD, CHEST, 2 VIEWS INDICATION: [...] Verified Date/Time: 05/25/2020 10:10:41 Reading Location: 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 The assessment of nucleolar prominence as a single parameter is noted to correlate better with outcome than other nuclear parameters (size, shape) to assign a Mellen grade. ("Urologic Surgical Pathology," Leidy and Cristian, third edition, 2014). Nuclear grade assigned in Synoptic portion of this report (tw, can include).This patient's previous biopsy from [facility], from 03/02/2017 ([id number]) shows a core biopsy with features similar [...] Additional Pathological Findings: Cyst(s): Simple cortical cyst 98968 X 2, 65872, 36206 x6Left renal massA. Retroperitoneal lymph node. B. [...] positive; AE1/AE3-positive; RICHARD and CK 7-focally positive; EW26-ektboyxm CD10 equivocal, possibly focally positiveThe immunohistochemistry test was developed and its performance characteristics determined by [facility], Pathology Laboratory. It has not been [...] 2017-10-13 13:36:00 Test Item Value Reference Range Interpretation Comme nts SODIUM (BEAKER) (test code 135 meq/L 136-145 L = 381) POTASSIUM (BEAKER) (test 3.6 meq/L 3.5-5.1 code = 379) CHLORIDE (BEAKER) (test 98 meq/L 98-107 code = 382) CO2 (BEAKER) (test code = 22 meq/L 22-29 355) BLOOD UREA NITROGEN 45 mg/dL 7-21 H (BEAKER) (test code = 354) CREATININE (BEAKER) (test 3.68 mg/dL 0.57-1.25 H code = 358) GLUCOSE RANDOM (BEAKER) 157 mg/dL 70-105 H (test code = 652) CALCIUM (BEAKER) (test code 9.5 mg/dL 8.4-10.2 = 697) EGFR (BEAKER) (test code = 20 mL/min/1.73 sq m ESTIMATED GFR IS NOT 1092) ACCURATE CRE ATININE CLEARANCE IN RI EDICTING GLOMERULAR FILT RATION RATE. ESTIMATED GFR IS NOT APPLICABLE FOR DIALYSIS PATIENTS. CBC W/PLT COUNT & AUTO [id number] 12:44:00 Test Item Value Reference Range Interpretation [...] (BEAKER) (test code = 2801) BASIC METABOLIC [id number] 15:02:00 Test Item Value Reference Range Interpretation [...] FOR DIALYSIS PATIEN TS. Please draw at 2:00pmBASA[facility] METABOLIC [id number] 06:14:00 Test Item Value Reference Range Interpretation [...] S NOT APPLICABLE FOR DIALYSIS PATIEN TS. [id number] 06:03:00 Test Item Value Reference Range Interpretation Comments PHOSPHORUS (BEAKER) (test code = 2.7 mg/dL 2.3-4.7 604) [id number] 06:03:00 Test Item Value Reference Range Interpretation Comments MAGNESIUM (BEAKER) (test code = 2.1 mg/dL 1.6-2.6 627) CBC W/PLT COUNT & AUTO [id number] 05:16:00 Test Item Value Reference Range Interpretation [...] 20-55 (test code = 2590) BASIC METABOLIC [id number] 05:41:00 Test Item Value Reference Range Interpretation [...] S NOT APPLICABLE FOR DIALYSIS PATIEN TS. [id number] 05:36:00 Test Item Value Reference Range Interpretation Comments PHOSPHORUS (BEAKER) (test code = 2.8 mg/dL 2.3-4.7 604) [id number] 05:36:00 Test Item Value Reference Range Interpretation Comments MAGNESIUM (BEAKER) (test code = 2.2 mg/dL 1.6-2.6 627) PTH, [id number] 05:33:00 Test Item Value Reference Range Interpretation Comments PARATHYROID HORMONE INTACT 212.3 pg/mL 8.5-72.5 H (BEAKER) (test code = 577) CBC W/PLT COUNT & AUTO [id number] 05:02:00 Test Item Value Reference Range Interpretation [...] 0-1 PERCENT (BEAKER) (test code = 2801) [id number] 06:36:00 Test Item Value Reference Range Interpretation Comments PHOSPHORUS (BEAKER) (test code = 2.4 mg/dL 2.3-4.7 604) [id number] 06:36:00 Test Item Value Reference Range Interpretation Comments MAGNESIUM (BEAKER) (test code = 1.8 mg/dL 1.6-2.6 627) BASIC METABOLIC [id number] 06:36:00 Test Item Value Reference Range Interpretation [...] PATIEN TS. CBC W/PLT COUNT & AUTO [id number] 05:59:00 Test Item Value Reference Range Interpretation [...] 0-1 PERCENT (BEAKER) (test code = 2801) [id number] 19:38:00 Test Item Value Reference Range Interpretation Comments PHOSPHORUS (BEAKER) (test code = 2.8 mg/dL 2.3-4.7 604) [id number] 19:38:00 Test Item Value Reference Range Interpretation Comments MAGNESIUM (BEAKER) (test code = 1.7 mg/dL 1.6-2.6 627) BASIC METABOLIC [id number] 19:35:00 Test Item Value Reference Range Interpretation [...] APPLICABLE FOR DIALYSIS PATIEN TS. HEMOGLOBIN AND [id number] 19:07:00 Test Item Value Reference Range Interpretation Comments HEMOGLOBIN (BEAKER) (test code = 13.7 GM/DL 13.7-17.5 410) HEMATOCRIT (BEAKER) (test code = 40.5 % 40.1-51.0 411) URINE [id number] 13:12:00 Test Item Value Reference Range Interpretation Comments CULTURE (BEAKER) (test code = 1095) No growth BASIC METABOLIC [id number] 17:19:00 Test Item Value Reference Range Interpretation [...] APPLICABLE FOR DIALYSIS PATIEN TS. URINALYSIS W/ [id number] 17:15:00 Test Item Value Reference Range Interpretation [...] 1574) Rare SOURCE(BEAKER) (test code = 2795) [id number] 17:07:00 Test Item Value Reference Range Interpretation Comments PARTIAL THROMBOPLASTIN TIME 28.1 seconds 22.5-36.0 (BEAKER) (test code = 760) PROTHROMBIN TIME/[id number] 17:06:00 Test Item Value Reference Range Interpretation Comments PROTIME (BEAKER) (test code = 13.6 seconds 11.7-14.7 759) INR (BEAKER) (test code = 370) 1.0 <=5.9 RECOMMENDED COUMADIN/WARFARIN INR THERAPY RANGESSTANDARD DOSE: 2.0 - 3.0 Includes: PROPHYLAXIS for venous thrombosis, systemic embolization; TREATMENT for venous thrombosis and/or pulmonary embolus.HIGH RISK: Target INR is 2.5-3.5 for patients with mechanical heart valves.CBC W/PLT COUNT & AUTO [id number] 16:53:00 Test Item Value Reference Range Interpretation [...] PERCENT (BEAKER) (test code = 2801) TISSUE [id number] 11:47:00Surgical Pathology Report Case: [id number] Authorizing Provider: Fernanda Jacksone Collected: 03/02/2017 1029 MD Cinthia Ordering Location: [facility] Diagnostic Imaging Received: 03/02/2017 1140 [...] Intradepartmental consultation: Dr. Koko Whitney, Dr. Umu Manzanares/wp37161, 09489, 74886 x2Left kidney biopsy massKidney massThe specimen is [...] developed and its performance characteristics determined by [facility], Pathology Laboratory. It has notbeen cleared or [...] qualified to perform high complexity clinical laboratory testing.[id number] 08:19:00 Test Item Value Reference Range Interpretation [...] mechanical heart valves.CBC W/PLT COUNT & AUTO [id number] 08:14:00 Test Item Value Reference Range Interpretation [...] K/ L 0.00-0.20 (test code = 417) Notes Date/Time Note Provider Source 2017-10-10 00:13:00-00:[address] [facility] REPORT OF PROCEDURE JENNIFER BELLA FACILITY: [facility] BILLING #: [id number] ROOM: [facility] [id number] MR #: [id number] : 1950 DATE OF PROCEDURE: 10/09/2017 SURGEON: Demetrius Larkin MD PROCESSING SPEC: Marizol Gonsales MD, PhD PREOPERATIVE DIAGNOSIS: Left renal mass. POSTOPERATIVE DIAGNOSIS: Left renal mass. OPERATIVE PROCEDURE: Left lapro-endoscopic singl e-site radical nephrectomy with retroperitoneal lymph node dissection. ANESTHESIA: General. BLOOD LOSS: 50 mL. COMPLICATIONS: None. SPECIMENS 1. Left kidney and hilar lymph nodes. 2. Retroperitoneal lymph node dissection. FINDING: Single right renal artery and 2 right r enal veins. DRAIN: A 16-Upper Sorbian Hart catheter. OPERATIVE PROCEDURE: Mr. Bella is a pleasant 67- year-old gentleman with CKD. He had a large lower pole renal mass that was wi michelle interfacing with renal sinus. This was biopsy proven to be renal cell c arcinoma and the biopsy had spindle cell formation on this. Despite his CKD, there was concern about oncologic control of the partial nephrectomy giv en the wide interface with the renal sinus and aggressive pathology on biop sy. We spent multiple counseling sessions to help him decide on which path to take him from the partial nephrectomy versus radical nephrectomy. I also consulted with several colleagues. In the end, we made a joint decision for radical nephrectomy despite the risk of dialysis and he presents for that today. The patient was identified in the preoperative h olding area in the operating room both verbally and by wrist bracelet. Inform ed consent had been obtained and the patient brought to the operating room an d placed in the supine position where appropriate anesthesia was induce d. The nursing staff sterilely placed a Hart catheter per urethra an d then he was placed in a modified flank position with his left side suppo rted on a gel roll. His left arm was cradled in foam and fixed to his side ab out the shoulders, hips, and legs to avoid shifting during the procedure. His abdomen and the flank were prepped and draped in usual sterile fashion. We began the procedure by making a 6-cm curvilin ear incision around the umbilicus. We had this dissection down to the re ctus fascia which was cleaned off and then entered with electrocautery . The midline was identified and the posterior sheath was entered sharply and the abdominal cavity was entered digitally. We then placed the applied [employer] dical single-site device at this location with 4 trocars adapted to it: Two 5/10-mm trocars, one 5/12-mm trocar, and one 15-mm trocar. We then fully rota carlos the table and used the deflectable 10-mm Olympus 3D laparoscope to perf orm laparoscopic nephrectomy. The white line of Toldt was incised and then the colon was reflected medially. This exposed the structures in the ret roperitoneum. There was a large mass effect in the lower pole mass, which was distorting the anatomy some. We were able to identify the gonadal vein and the ureter, both of which were elevated and packets of lymphatic tis kylah were secured caudally towards the iliac artery and then cephalad towar ds the renal vein. The anterior surface of the renal vein was identifie d as was the adrenal vein. Then, a plane was established between the upper medial pole of the kidney and the adrenal gland and carried down to the psoas muscle. In this location, we were surprised to identify a 2nd very well-defin ed renal vein. This was fixed, skeletonized, and secured with the EndoGI A device. Next, after the entire upper pole dissection was completed, we r eturned to lifting the kidney and marching cephalad using the gonadal vein as our guide towards the renal vein. In this location, we identified a lumbar v essel which was skeletonized and secured with a firing of the EndoGIA stapler . The renal artery was encasing some fairly dense lymphatic tissue. It took quite a while in order to skeletonize the renal artery and so we make o ur way through this dense lymphatic tissue, but we did so successfully. Th e renal artery was then secured with a firing of the EndoGIA stapler and the renal vein was secured just distal to the adrenal vein with an EndoGIA stapler. Then, all the posterior and lateral attachments were secured t o the kidney. The gonadal vein was secured with firing of the EndoGIA stap ler and the ureter was doubly clipped distally and singly clipped proximally a nd transected. After the kidney was free in the abdomen, I turned my atte ntion to the retroperitoneal lymph node dissection. We began the dissection j ust cephalad to the insertion of renal artery. I incised the lymphat ic tissue on the anterior medial surface of the aorta and secured packets of lymphatic tissue with a combination of Ligaclips as well as Weck clips. Then, the lymphatic tissue was slowly rolled off laterally where again it w as secured with more clips on the posterior lateral surface of the aorta. Fair ly sizable lymphatic packet was secured between just cephalad to the renal a rtery that included lymphatic tissue from cephalad to the renal artery to just below the inferior mesenteric artery. This was extracted through e GelPOINT device. Next, the kidney was placed in a 15-mm EndoCatch bag a nd extracted through the GelPOINT device. Excellent hemostasis and lympho stasis was affected with a combination of the LigaSure device as well as co pious use of clips. Surgicel was placed in the lymphatic resection bed and th e colon was replaced in its normal anatomic position. Marcaine 0.25% was beverly rafaela in a TAP block configuration with 10 mL on both sides of the ab domen and additional 10 mL underneath the rectus fascia. Rectus fascia was closed with a #1 Vicryl in a running fashion. The subcutaneous tissues were c opiously irrigated. The fat was reapproximated with a fast absorbing suture and the skin was closed in a subcuticular fashion with 4-0 Monocryl. It was s ealed with Dermabond. The patient was returned to the supine position where he awo ke from anesthesia without event. I was present and performed all barakat aspec ts of the procedure. Jeny P 12:1 3 A Job#: [id number] Doc#: [id number] FN: [id number] cc: Demetrius Larkin MD
[2023-01-15 21:43] LABS: Protime INR 0.89
[2023-01-15] MEDS ORDERED: NA CHLORIDE 0.9% 500 ML ONE (21:45)
[2023-01-15] MEDS ORDERED: NA CHLORIDE 0.9% 1,000 ML ONE (21:45)
[2023-01-15 21:46] LABS: Absolute Lymphocytes (CBC) 0.9 K/uL (0.7-4.9); Hematocrit 41.3 % (39.6-49.0); Lymphocytes % 21.8 % (15.3-44.8); RBC Red Blood Cell Count 4.64 M/uL (4.33-5.43)
--- NOTE | 2023-01-15 21:47 | RAD REPORT ---
EXAM DESCRIPTION: RAD - Chest Single View - 01/15/2023 9:34 pm CLINICAL HISTORY: COUGH Chest pain. COMPARISON: Chest Single View dated 09/22/2022; Chest Single View dated 09/18/2022; Abdomen Acute Serie s dated 09/02/2022; Chest Single View dated 08/22/2022 FINDINGS: Portable technique limits examination quality. The lungs are grossly clear. The heart is normal in size. No displaced fractures. IMPRESSION: No acute intrathoracic process suspected.
[2023-01-15 21:58] LABS: ALT/SGPT 38 U/L (16-61); AST/SGOT 22 U/L (15-37); Albumin 3.5 g/dL (3.4-5.0); Alkaline Phosphatase 62 U/L (45-117); BUN Blood Urea Nitrogen 36 mg/dL (7-18); Bicarbonate 27 mEq/L (21-32); Bilirubin Total 0.2 mg/dL (0.2-1.0); Glomerular Filtration Rate 27 ml/min (=/>90); Glucose Level 129 mg/dL (74-106); Lipase 97 U/L (13-75); Magnesium 2.2 mg/dL (1.6-2.4); NT PRO-BNP 1149 pg/mL (<125); Potassium 3.4 mEq/L (3.5-5.1); Protein, Total 7.3 g/dL (6.4-8.2); Sodium Level 139 mEq/L (136-145); Troponin High Sensitivity 54.6 pg/mL (<58.9)
[2023-01-15 22:00] LABS: Bilirubin Direct < 0.1 mg/dL (0-0.2); Bilirubin Indirect, Calculated ND mg/dL (0.2-0.8)
--- NOTE | 2023-01-15 22:04 | RAD REPORT ---
EXAM DESCRIPTION: CT - Head Brain Wo Cont - 01/15/2023 9:57 pm CLINICAL HISTORY: DIZZINESS Headache, drowsiness COMPARISON: Head Brain Wo Cont dated 08/04/2022; Ct Stroke Brain Wo Cont dated 03/27/2019; Head C Spin e Mpr Wo Con dated 09/22/2022 TECHNIQUE: All CT scans are performed using dose optimization technique as appropriate and may inclu de automated exposure control or mA/KV adjustment according to patient size. FINDINGS: No intracranial hemorrhage, hydrocephalus or extra-axial fluid collection.Moderate brain a trophy with advanced chronic microvascular ischemic changes in the periventricular and deep white mat ter. 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 The paranasal sinuses and mastoids are clear. The calvarium is intact. IMPRESSION: No acute intracranial abnormality.
[2023-01-15] MEDS ORDERED: HYDRALAZINE HCL 25 MG TABLET ONE (22:47)
[2023-01-15] MEDS ORDERED: HYDRALAZINE HCL 20 MG/ML VIAL ONE (22:47)
[2023-01-15] MEDS ORDERED: AMLODIPINE 10 MG TAB ONE (23:31)
[2023-01-15] MEDS ORDERED: cloNIDine HCL 0.1 MG TAB ONE (23:31)
--- NOTE | 2023-01-16 00:05 | EDPHYS ---
Physician Documentation [facility] Name: Aravind Low Age: 72 yrs Sex: Male : 1950 Arrival Date: 01/15/2023 Time: 21:14 Bed 4 Private MD: ED Physician Lanre Schroeder HPI: 01/15 22:33 This 72 yrs old Black Male presents to ER via EMS with complaints of high blood jami pressure. 22:33 htn, on meds. Onset: The symptoms/episode began/occurred today. Severity of symptoms: jami At their worst the symptoms were mild moderate in the emergency department the symptoms are unchanged. The patient has experienced similar episodes in the past, multiple times. Historical: - Allergies: 21:22 No Known Allergies; kl - PMHx: 21:22 CVA; Dementia; ESRD; Gout; Hypertension; kidney cancer; kl - PSHx: 21:22 kidney removal; kl - Immunization history:: Adult Immunizations up to date. - Social history:: Smoking status: Patient denies any tobacco usage or history of. ROS: 22:35 Constitutional: Negative for fever, chills, and weight loss, Eyes: Negative for injury, jami pain, redness, and discharge, ENT: Negative for injury, pain, and discharge, Neck: Negative for injury, pain, and swelling, Cardiovascular: Negative for chest pain, palpitations, and edema, Respiratory: Negative for shortness of breath, cough, wheezing, and pleuritic chest pain, Abdomen/GI: Negative for abdominal pain, nausea, vomiting, diarrhea, and constipation, Back: Negative for injury and pain, : Negative for injury, bleeding, discharge, and swelling, MS/Extremity: Negative for injury and deformity, Skin: Negative for injury, rash, and discoloration, Psych: Negative for depression, anxiety, suicide ideation, homicidal ideation, and hallucinations, Allergy/Immunology: Negative for hives, rash, and allergies, Endocrine: Negative for neck swelling, polydipsia, polyuria, polyphagia, and marked weight changes, Hematologic/Lymphatic: Negative for swollen nodes, abnormal bleeding, and unusual bruising. 22:35 Neuro: Positive for headache, weakness. Exam: 22:35 Radiologist reports: neg jami 22:35 Constitutional: This is a well developed, well nourished patient who is awake, alert, and in no acute distress. Head/Face: Normocephalic, atraumatic. Eyes: Pupils equal round and reactive to light, extra-ocular motions intact. Lids and lashes normal. Conjunctiva and sclera are non-icteric and not injected. Cornea within normal limits. Periorbital areas with no swelling, redness, or edema. ENT: Nares patent. No nasal discharge, no septal abnormalities noted. Tympanic membranes are normal and external auditory canals are clear. Oropharynx with no redness, swelling, or masses, exudates, or evidence of obstruction, uvula midline. Mucous membranes moist. Neck: Trachea midline, no thyromegaly or masses palpated, and no cervical lymphadenopathy. Supple, full range of motion without nuchal rigidity, or vertebral point tenderness. No Meningismus. Chest/axilla: Normal chest wall appearance and motion. Nontender with no deformity. No lesions are appreciated. Cardiovascular: Regular rate and rhythm with a normal S1 and S2. No gallops, murmurs, or rubs. Normal PMI, no JVD. No pulse deficits. Respiratory: Lungs have equal breath sounds bilaterally, clear to auscultation and percussion. No rales, rhonchi or wheezes noted. No increased work of breathing, no retractions or nasal flaring. Abdomen/GI: Soft, non-tender, with normal bowel sounds. No distension or tympany. No guarding or rebound. No evidence of tenderness throughout. Back: No spinal tenderness. No costovertebral tenderness. Full range of motion. Skin: Warm, dry with normal turgor. Normal color with no rashes, no lesions, and no evidence of cellulitis. MS/ Extremity: Pulses equal, no cyanosis. Neurovascular intact. Full, normal range of motion. Neuro: Awake and alert, GCS 15, oriented to person, place, time, and situation. Cranial nerves II-XII grossly intact. Motor strength 5/5 in all extremities. Sensory grossly intact. Cerebellar exam normal. Normal gait. Psych: Awake, alert, with orientation to person, place and time. Behavior, mood, and affect are within normal limits. 22:35 ECG was reviewed by the Attending Physician. Vital Signs: 21:17 BP 179 / 98; Pulse 78; Resp 18; Temp 97(TE); Pulse Ox 98% on R/A; Weight 48.99 kg (M); kl Height 5 ft. 4 in. ; 22:37 BP 186 / 90; Pulse 64; Resp 18; Pulse Ox 100% on R/A; mc5 23:46 BP 178 / 120; Pulse 85; Resp 23 S; Pulse Ox 100% on R/A; as6 01/16 01:03 BP 142 / 85; Pulse 89; Resp 14 S; Pulse Ox 100% on R/A; as6 01/15 21:17 Body Mass Index 18.54 (48.99 kg, 162.56 cm) kl MDM: 01/15 21:19 Patient medically screened. jami 22:39 Differential diagnosis: CVA, TIA. Differential Diagnosis altered mental status. Data [facility] reviewed: vital signs, nurses notes, EMS record, lab test result(s), EKG, radiologic studies, CT scan, plain films. Consideration of Admission/Observation Escalation of care including admission/observation considered. I considered the following discharge prescriptions or medication management in the emergency department Medications were administered in the Emergency Department. See MAR. Independent interpretation of the following test(s) in the Emergency Department MRI: My interpretation is no mri. Test considered but Not performed: MRI: no mri. Historians other than the Patient: Family Member: , well informed. Care significantly affected by the following chronic conditions: Hypertension, Cancer, Chronic Kidney Disease, cva, dementia. 01/15 21:20 Order name: Basic Metabolic Panel; Complete Time: 22:32 [facility] 01/15 21:20 Order name: CBC with Diff; Complete Time: 22:32 [facility] 01/15 21:20 Order name: LFT's; Complete Time: 22:32 [facility] 01/15 21:20 Order name: Magnesium; Complete Time: 22:32 [facility] 01/15 21:20 Order name: NT PRO-BNP; Complete Time: 22:32 [facility] 01/15 21:20 Order name: PT-INR; Complete Time: 22:32 [facility] 01/15 21:20 Order name: Troponin HS; Complete Time: 22:32 [facility] 01/15 21:20 Order name: Lipase; Complete Time: 22:32 jami 01/15 21:20 Order name: Urinalysis w/ reflexes jami 01/16 00:21 Order name: Urinalysis w/ reflexes EDMS 01/15 21:20 Order name: XRAY Chest (1 view); Complete Time: 22:32 [facility] 01/15 21:20 Order name: CT Head Brain wo Cont; Complete Time: 22:32 [facility] 01/15 21:20 Order name: EKG; Complete Time: 21: [facility] 01/16 00:21 Order name: Heart Healthy EDIN 01/15 21:20 Order name: Cardiac monitoring; Complete Time: 21:24 [facility] 01/15 21:20 Order name: EKG - Nurse/Tech; Complete Time: 21:24 [facility] 01/15 21:20 Order name: IV Saline Lock; Complete Time: 21:24 [facility] 01/15 21:20 Order name: Labs collected and sent; Complete Time: 21:24 [facility] 01/15 21:20 Order name: O2 Per Protocol; Complete Time: 21:24 [facility] 01/15 21:20 Order name: O2 Sat Monitoring; Complete Time: 21:24 [facility] EC:35 Rate is 71 beats/min. Rhythm is regular. QRS [place] is Normal. MI interval is normal. QRS jami interval is normal. QT interval is normal. No Q waves. T waves are Normal. No ST changes noted. Clinical impression: NSR w/ Non-specific ST/T Changes and No evidence of ischemia. Interpreted by me. Reviewed by me. Administered Medications: 21:42 Drug: NS 0.9% IV 500 ml Route: IV; Rate: bolus; Site: right forearm; 01/16 01:14 Follow up: Response: No adverse reaction; IV Status: Completed infusion; IV Intake: as6 500ml 01/15 21:42 Drug: NS 0.9% IV 1000 ml Route: IV; Rate: 125 ml/hr; Site: right forearm; 01/16 01:14 Follow up: Response: No adverse reaction; IV Status: Infusion continued upon admission; as6 IV Intake: 450ml 01/15 22:42 Drug: hydrALAZINE IVP 10 mg Route: IVP; Site: right antecubital; 01/16 01:14 Follow up: Response: No adverse reaction 01/15 22:42 Drug: HydrALAZINE PO 25 mg Route: PO; 01/16 01:13 Follow up: Response: No adverse reaction 01/15 23:42 Drug: cloNIDine PO 0.2 mg Route: PO; 01/16 01:13 Follow up: Response: No adverse reaction 01/15 23:42 Drug: Norvasc PO 10 mg Route: PO; as6 01/16 01:13 Follow up: Response: No adverse reaction as6 00:22 Drug: hydrALAZINE IVP 20 mg Route: IVP; Site: right forearm; jb4 01:13 Follow up: Response: No adverse reaction as6 Disposition Summary: 01/16/23 00:04 Hospitalization Ordered Hospitalization Status: Observation jami Provider: Raad Sanders cha Location: Telemetry/MedSurg (Inpatient) jami Condition: Fair jami Problem: new jami Symptoms: have improved jami Bed/Room Type: Standard jami Room Assignment: 230(01/16/23 01:01) mw Diagnosis - Weakness jami - Essential (primary) hypertension - URGENCY jami - Hypertensive heart and chronic kidney disease with heart failure and stage 1 jami through stage 4 chronic kidney disease, or unspecified chronic kidney disease - Hypokalemia jami Discharge Instructions: - Discharge Summary Sheet jami - Dementia jami - Hypertension, Adult jami - Hypertension, Adult, [id number] jami - How to Take Your Blood Pressure, [id number] jami - Chronic Kidney Disease, Adult, [id number] jami - Managing Your Hypertension jami Forms: - Medication Reconciliation Form jami - SBAR form jami Prescriptions: - Norvasc 10 mg Oral Tablet - take 1 tablet by ORAL route once daily; 30 tablet; Refills: 0, Product jami Selection Permitted Signatures: Dispatcher [employer] Jessica Fernandez RN RN kl Webb, Martha, RN RN mw Anderson, Corey, MD MD cha Bryson, James, RN RN jb4 Jone Guan RN RN as6 Corrections: (The following items were deleted from the chart) 01:01 00:04 jami chou
--- NOTE | 2023-01-16 00:05 | ER ---
Nurse's Notes [facility] Name: Aravind Low Age: 72 yrs Sex: Male : 1950 Arrival Date: 01/15/2023 Time: 21:14 Bed 4 Private MD: Diagnosis: Weakness;Essential (primary) hypertension-URGENCY;Hypertensive heart and chronic kidney disease with heart failure and stage 1 through stage 4 chronic kidney disease, or unspecified chronic kidney disease;Hypokalemia Presentation: 01/15 21:17 Chief complaint: EMS states: pt complained of not feeling right took BP it was high kl 189/100 pt has residual deficits from previous stroke pt able to answer questions appropriately denies increase in weakness or diff speaking. Coronavirus screen: Vaccine status: Patient reports receiving the 2nd dose of the covid vaccine. Ebola Screen: Patient negative for fever greater than or equal to 101.5 degrees Fahrenheit, and additional compatible Ebola Virus Disease symptoms. Initial Sepsis Screen: Does the patient meet any 2 criteria? No. Patient's initial sepsis screen is negative. Does the patient have a suspected source of infection? No. Patient's initial sepsis screen is negative. Risk Assessment: Do you want to hurt yourself or someone else? Patient reports no desire to harm self or others. 21:17 Method Of Arrival: EMS: [facility] 21:17 Acuity: ANTONIO 3 kl 01/16 01:03 Onset of symptoms was January 15, 2023. as6 Triage Assessment: 01/15 21:23 General: Appears in no apparent distress. comfortable, Behavior is cooperative. Pain: kl Denies pain. Neuro: Level of Consciousness is awake, alert, obeys commands, Oriented to person, place, time, situation, Facial symmetry appears normal. Cardiovascular: No deficits noted. Respiratory: No deficits noted. GI: No deficits noted. No signs and/or symptoms were reported involving the gastrointestinal system. : No deficits noted. No signs and/or symptoms were reported regarding the genitourinary system. Derm: No deficits noted. No signs and/or symptoms reported regarding the dermatologic system. Historical: - Allergies: 21:22 No Known Allergies; kl - PMHx: 21:22 CVA; Dementia; ESRD; Gout; Hypertension; kidney cancer; kl - PSHx: 21:22 kidney removal; kl - Immunization history:: Adult Immunizations up to date. - Social history:: Smoking status: Patient denies any tobacco usage or history of. Screenin:48 [facility] ED Fall Risk Assessment (Adult) Score/Fall Risk Level 3 or more points = High as6 Risk. Abuse screen: Denies threats or abuse. Denies injuries from another. Nutritional screening: No deficits noted. Tuberculosis screening: No symptoms or risk factors identified. Assessment: 21:58 Reassessment: Pt in Ct. jb4 Vital Signs: 21:17 BP 179 / 98; Pulse 78; Resp 18; Temp 97(TE); Pulse Ox 98% on R/A; Weight 48.99 kg (M); Height 5 ft. 4 in. ; 22:37 BP 186 / 90; Pulse 64; Resp 18; Pulse Ox 100% on R/A; mc5 23:46 BP 178 / 120; Pulse 85; Resp 23 S; Pulse Ox 100% on R/A; as6 01/16 01:03 BP 142 / 85; Pulse 89; Resp 14 S; Pulse Ox 100% on R/A; as6 01/15 21:17 Body Mass Index 18.54 (48.99 kg, 162.56 cm) ED Course: 01/15 21:17 Patient arrived in ED. 21:19 Lanre Schroeder MD is Attending Physician. [facility] 21:22 Triage completed. 21:23 Arm band placed on. mb9 21:23 Placed in gown. Bed in low position. Call light in reach. Side rails up X 1. Client mb9 placed on continuous cardiac and pulse oximetry monitoring. NIBP monitoring applied. tie in hand on. Door closed. Noise minimized. Warm blanket given. 21:23 Inserted saline lock: 20 gauge in right forearm, using aseptic technique. Blood mb9 collected. 21:24 EKG done, by ED staff, reviewed by Lanre Schroeder MD. mb9 21:24 Troponin HS Sent. mb9 21:24 PT-INR Sent. mb9 21:24 NT PRO-BNP Sent. mb9 21:24 Magnesium Sent. mb9 21:24 Basic Metabolic Panel Sent. mb9 21:24 CBC with Diff Sent. mb9 21:24 LFT's Sent. mb9 21:36 XRAY Chest (1 view) In Process Unspecified. EDMS 21:42 Avila Hodgson, RN is Primary Nurse. jb4 21:59 CT Head Brain wo Cont In Process Unspecified. EDMS 01/16 00:03 Raad Sanders MD is Hospitalizing Provider. jami 01:15 No provider procedures requiring assistance completed. Patient admitted, IV remains in as6 place. Administered Medications: 01/15 21:42 Drug: NS 0.9% IV 500 ml Route: IV; Rate: bolus; Site: right forearm; jb4 01/16 01:14 Follow up: Response: No adverse reaction; IV Status: Completed infusion; IV Intake: as6 500ml 01/15 21:42 Drug: NS 0.9% IV 1000 ml Route: IV; Rate: 125 ml/hr; Site: right forearm; jb4 01/16 01:14 Follow up: Response: No adverse reaction; IV Status: Infusion continued upon admission; as6 IV Intake: 450ml 01/15 22:42 Drug: hydrALAZINE IVP 10 mg Route: IVP; Site: right antecubital; as6 01/16 01:14 Follow up: Response: No adverse reaction as6 01/15 22:42 Drug: HydrALAZINE PO 25 mg Route: PO; as6 01/16 01:13 Follow up: Response: No adverse reaction as6 01/15 23:42 Drug: cloNIDine PO 0.2 mg Route: PO; as6 01/16 01:13 Follow up: Response: No adverse reaction as6 01/15 23:42 Drug: Norvasc PO 10 mg Route: PO; as6 01/16 01:13 Follow up: Response: No adverse reaction as6 00:22 Drug: hydrALAZINE IVP 20 mg Route: IVP; Site: right forearm; jb4 01:13 Follow up: Response: No adverse reaction as6 Medication: 01/15 23:48 VIS not applicable for this client. as6 Intake: 01/16 01:14 IV: 500ml; Total: 500ml. as6 01:14 IV: 450ml; Total: 950ml. as6 Outcome: 00:04 Decision to Hospitalize by Provider. jami 01:14 Admitted to Med/surg accompanied by tech, via stretcher, room 230, with chart, Report as6 called to Ramiro HOYT 01:14 Condition: stable 01:14 Instructed on the need for admit. 01:17 Patient left the ED. as6 Signatures: Dispatcher [employer] Jessica Fernandez, Lanre Kellogg RN, MD MD cha Bryson, James, RN RN jb4 Jone Guan RN RN as6 Joyce Hodgson RN RN mb9 Alma Delia Arce mc5 Corrections: (The following items were deleted from the chart) 01/15 22:38 22:37 BP 186 / 90; Pulse 64bpm; Pulse Ox 100% RA; mc5 mc5
[2023-01-16] MEDS ORDERED: ALPRAZOLAM 0.25 MG TABLET PO PRN (00:16)
[2023-01-16] MEDS ORDERED: ACETAMINOPHEN 500 MG TAB PO PRN (00:16)
[2023-01-16] MEDS ORDERED: ONDANSETRON 4 MG/2 ML VIAL IV PRN (00:16)
--- NOTE | 2023-01-16 00:16 | P.HP ---
Certification for Inpatient Patient admitted to: Inpatient With expected LOS: >2 Midnights Patient will require the following post-hospital care: None Practitioner: I am a practitioner with admitting privileges, knowledge of patient current condition, hospital course, and medical plan of care. Services: Services provided to patient in accordance with Admission requirements found in Title 42 Section 412.3 of the Code of Federal Regulations <SameerGina - Last Filed: 01/16/23 01:13> Patient History Date of Service: 01/16/23 Reason for admission: Hypertensive urgency History of Present Illness: 72 yrs old AA Male with past medical history of HTN, CKD stage 4, Dementia, HLD presents to ER via EMS with complaints of high blood. pressure. He reports his blood pressure was worse today, reports associate weakness, fatigue. He reports medication compliance. No reported chest pain, abdominal pain, cough, fever, shortness of breath. - Past Medical/Surgical History Diabetic: No -: Hypertension -: Chronic renal disease, stage IV -: History left renal mass with nephrectomy -: gout -: Left nephrectomy Psychosocial/ Personal History: Patient is - Family History Mother -: Hypertension Brother -: Heart disease Notes: deseased from [place] Father Notes: dementia Sister -: Diabetes uncle -: Cancer Notes: prostate - Social History Alcohol use: No CD- Drugs: No Caffeine use: No <Gina Estrella - Last Filed: 01/16/23 01:13> Date of Service: 01/16/23 <Jaspal Díaz - Last Filed: 01/16/23 14:17> Allergies No Known Allergies Allergy (Verified 05/08/19 18:47) Home Medications: Amlodipine [Norvasc*] 10 mg PO DAILY 08/06/22 Aspirin [Aspirin EC] 81 mg PO DAILY #30 tab 08/12/22 Atorvastatin Calcium [Lipitor] 40 mg PO BEDTIME #30 tab 08/12/22 Clopidogrel Bisulfate [Plavix*] 75 mg PO DAILY #30 tab 08/12/22 Ensure Enlive 237 ml PO BID #60 can 08/12/22 Hydralazine [Apresoline*] 25 mg PO TID #90 tab 08/12/22 OLANZapine [Zyprexa*] 2.5 mg PO BEDTIME #15 tab 08/12/22 Sodium Bicarbonate 1,300 mg PO BID #120 tab 08/12/22 Arformoterol Tartrate [Brovana] 15 mcg NEB BIDRESP #60 vial.neb 08/22/22 Cefdinir [Cefdinir*] 300 mg PO BID #10 cap 08/22/22 Clonidine HCl [Catapres*] 0.2 mg PO TID #90 tab 08/22/22 carvediloL [Coreg*] 12.5 mg PO BID #60 tab 08/22/22 predniSONE [Deltasone*] 10 mg PO BID #11 tab 08/22/22 Review of Systems 10-point ROS is otherwise unremarkable General: As per HPI <Gina Estrella - Last Filed: 01/16/23 01:13> Physical Examination - Physical Exam General: Oriented x3 HEENT: Atraumatic, Normocephalic, PERRLA Neck: 2+ carotid pulse no bruit, JVD not distended Respiratory: Diminished Cardiovascular: No edema, Regular rate/rhythm Capillary refill: <2 Seconds Gastrointestinal: Normal bowel sounds Musculoskeletal: No clubbing, No swelling Neurological: Normal speech, Normal affect - Studies Laboratory Data (last 24 hrs) 01/15/23 21:25: PT 9.8, INR 0.89 01/15/23 21:25: WBC 4.00 L, Hgb 13.7, Hct 41.3, Plt Count 220 01/15/23 21:25: Sodium 139, Potassium 3.4 L, BUN 36 H, Creatinine 2.51 H, Glucose 129 H, Magnesium 2.2, Total Bilirubin 0.2, AST 22, ALT 38, Alkaline Phosphatase 62, Lipase 97 H <Gina Estrella - Last Filed: 01/16/23 01:13> - Studies Laboratory Data (last 24 hrs) 01/15/23 21:25: PT 9.8, INR 0.89 01/15/23 21:25: WBC 4.00 L, Hgb 13.7, Hct 41.3, Plt Count 220 01/15/23 21:25: Sodium 139, Potassium 3.4 L, BUN 36 H, Creatinine 2.51 H, Glucose 129 H, Magnesium 2.2, Total Bilirubin 0.2, AST 22, ALT 38, Alkaline Phosphatase 62, Lipase 97 H <Jaspal Díaz - Last Filed: 01/16/23 14:17> Assessment and Plan - Plan Assessment/plan HTN urgency acute heart failure,unkn baseline CKD stage 4 hypokalemia HLD DDx proplx Assessment/plan admit to Medsurg, tele, HTN urgency-resume home HTN meds, prn anti hypertensive acute heart failure,unkn baseline- trend BNP, diuretics, card consult for Acute HF, CKD stage 4-trend kidney function, hypokalemia -trend electrolytes, repl prn HLD- resume approp home meds DDx proplx Discharge Plan: Home Plan to discharge in: 48 Hours - Advance Directives Does patient have a Living Will: No Does patient have a Durable POA for Healthcare: No - Code Status/Comfort Care Code Status: Full Code Physician Review: Patient Assessed, Agree with Above Assessment and Plan Critical Care: No Time Spent Managing Pts Care (In Minutes): 55 <Gina Estrella - Last Filed: 01/16/23 01:13> - Plan Patient seen and examined on rounds this morning. Slight improvement of blood pressure overnight patient reports feeling ok, feeling "sick" recently, unable to elaborate restart home BP meds - as noted in pharmacy / prescription query Nephrology consulted - seen by Dr. Arceo last hospitalization <Jaspal Díaz - Last Filed: 01/16/23 14:17>
[2023-01-16] MEDS ORDERED: HYDRALAZINE HCL 20 MG/ML VIAL IV PRN (00:19)
[2023-01-16] MEDS ORDERED: HYDRALAZINE HCL 20 MG/ML VIAL ONE (00:22)
[2023-01-16] MEDS: FUROSEMIDE 40 MG/4 ML VIAL IV SCH ×2 (03:16→08:17)
--- NOTE | 2023-01-16 07:26 | P.PN ---
Date of Service: 01/17/23 Subjective: feeling better today no acute events overnight BP improved today meds changed yesterday; renal function worse ROS: 10 point ROS as noted above, otherwise negative Physical Exam: GEN: Alert, orientedx2, NAD; pleasant, +dementia HEENT: Normal conjunctiva, sclera anicteric CV: Regular rate and rhythm, no edema Pulm: Non-labored respirations on room air ABD: Soft, nontender, nondistended Neuro: Normal speech, normal affect, +Dementia vitals reviewed Problem List: Hypertensive urgency Acute diastolic CHF CKD 4 Hypokalemia Hyperlipidemia Dementia Hypertensive urgency CKD 4 home meds restarted; titrated up on 01/16 renal function slightly worse this morning Nephrology consulted hold mary check renal function in AM Acute diastolic CHF CXR (01/15): No acute intrathoracic process suspected CT head (01/15): negative BNP: 1149 Cardiology consulted Echo 88% EF with normal wall motion severe concentric left ventricular hypertrophy, diastolic dysfunction, mild MR, mild TR monitor on telemetry Hypokalemia Hyperlipidemia Dementia Continue home medications Code: Full Dispo: Home, anticipate tomorrow updated at bedside
[2023-01-16] MEDS: carvediloL 25 MG TAB PO SCH ×2 (08:17→17:54)
[2023-01-16] MEDS: cloNIDine HCL 0.1 MG TAB PO SCH ×3 (08:17→20:26)
[2023-01-16] MEDS ORDERED: HYDRALAZINE HCL 25 MG TABLET PO SCH (09:00)
[2023-01-16 09:26] LABS: Potassium 3.8 mEq/L (3.5-5.1)
[2023-01-16] MEDS ORDERED: POTASSIUM CL SA 10 MEQ TAB PO ONE (10:00)
--- NOTE | 2023-01-16 10:34 | CON ---
Date of Consultation: 01/16/2023 Reason For Consultation: Elevated BUN and creatinine, fluid management, hypertension. 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 Upon arrival to the hospital, the patient fo und to have high blood pressure, elevation in BUN and creatinine. For that reason, we have been cons ulted. Reviewing the record for the patient, creatinine back in September 15 with GFR of 21. Today, crea tinine 2.5 with GFR of 27. The patient denied taking any nonsteroidal. No IV contrast. The patient had recurrent admission with the same complaint. The patient had poor compliant. Home medications include sodium bicarb, Plavix. No ARNIE inhibitors. Past Medical History: Includes; 1.Chronic kidney disease secondary to renal mass loss secondary to nephrectomy/hypertension nephrosc lerosis, small right kidney, baseline creatinine 2.5 to 3 with GFR of 27 to 30. 2.Hypertension. 3.CVA. 4.Dementia. 5.CAD. 6.Gout. Allergies: NO KNOWN DRUGS ALLERGY. Home Medications: Include amlodipine 10 mg, aspirin, atorvastatin, Plavix, Ensure, hydralazine 25 t. i.d., olanzapine, sodium bicarb, cefdinir, clonidine 0.2 t.i.d., carvedilol, and prednisone. Past Surgical History: Includes left nephrectomy. Family History: Positive for hypertension and CAD with dementia. Social History: Denied smoking, denied drinking, denied drugs abuse. Review of Systems: None obtainable. The patient has advanced dementia. Physical Examination: General: When I saw the patient; the patient lying in bed, comfortable, not on any distress. Vital Signs: Blood pressure 158/79, pulse of 84, afebrile. Chest: Clear to auscultation. Heart: S1, S2. Regular. Abdomen: Soft, nontender. Extremity: No edema. Neurologic: Alert. No focality. Vascular Exam: Could not appreciate any carotid bruit. No renal bruit on the abdomen. Laboratory Data: Back in September 2022; sodium 139, potassium 4, bicarb 26, BUN 28, creatinine 3, GFR o f 21, calcium 9.2. Today lab data; sodium 142, potassium 3.8, bicarb 27, BUN 32, creatinine 2.3, GFR 30, calcium 9.5, magnesium of 2. BNP 1149. Urinalysis is still pending. Current Medications: The patient on include carvedilol 25 b.i.d., clonidine 0.1 t.i.d., hydralazine 50 t.i.d., alprazolam, Lasix 40 daily. Assessment And Plan: 1.Chronic kidney disease secondary to hypertension nephrosclerosis, stage 3B/4 secondary to hyperten simran nephrosclerosis, renal mass loss with acute kidney injury, on the recovery, looked to me on the normal volume side. I am going to go ahead and discontinue Lasix. We will monitor the patient. 2.Acute kidney injury secondary to prerenal, recovered, resolved. Discontinue Lasix. Back to basel ine. 3.Acidosis. I am going to go ahead and discontinue sodium bicarb. 4.Hypertension, uncontrolled. I am going to go ahead and increase hydralazine 100 t.i.d. 5.Anemia of chronic kidney disease/iron deficiency anemia as of lab back in March 2020. I am go ing to send for repeat it, followup. Currently hemoglobin 13.7. No need for the workup. 6.Dementia as by primary. 7.Gout, stable. We will resume allopurinol. Follow up uric acid. Thank you, Dr. Roman for allowing us to participate in the care of your patient. Time spent examining the patient [id number], reviewing data, lab and radiology, placing order, disc ussing the case with the bioinformatics team member including hospitalist and nursing staff more than 75 minutes. MIR Voice ID: [id number] Report ID: [id number]
[2023-01-16] MEDS: HYDRALAZINE HCL 25 MG TABLET PO SCH ×2 (14:04→20:26)
--- NOTE | 2023-01-16 15:56 | CON ---
Date of Consultation: 01/16/2023 Reason For Consultation: Elevated BNP, to evaluate for heart failure. History Of Present Illness: This is a 72-year-old male, history of hypertension, chronic kidney dise ase stage IV, advanced dementia, dyslipidemia, presented to the emergency room by ambulance due to hi gh blood pressure. Denies having any chest pain. No shortness of breath. No orthopnea. No heart f ailure symptoms. Past Medical History: Hypertension, chronic kidney disease, diastolic heart failure. Medication: Refer consultation sheet for detailed list. Allergies: NO KNOWN DRUG ALLERGIES. Family History: No premature coronary artery disease or cancer. Social History: He does not smoke or drink. Does not use any drugs. Review of Systems: All systems reviewed and they were negative except mentioned in HPI. Physical Examination: Vital Signs: Reviewed. Head and Neck: Pupils are equal, reactive to light. Intact eye movements. No JVD. No cervical lym phadenopathy. Neck supple. Thyroid is not enlarged. Lungs: Clear to auscultation bilaterally. No rhonchi, rales, or crackles. No accessory muscle use. Heart: Irregular. No extra sounds. Abdomen: Soft, nontender. Bowel sounds positive. No organomegaly. No masses or hernia. No rigidi ty or rebound. Extremities: No edema, clubbing, cyanosis. Intact pulses. Skin: No rash. Neurologic: Alert, awake. No acute focal deficits appreciated. Investigations: His troponin is negative. NT-proBNP is 1149. BUN 32, creatinine 2.3. Hemoglobin i s 13.7. Assessment/recommendation: 1.Elevated NT-proBNP. Patient has chronic kidney disease. He does have an element of diastolic hea rt failure and he is euvolemic, and at the present time, there is no evidence of acute decompensated heart failure. As such, what I recommend at this point is tight blood pressure control, strict low-s odium diet, and careful monitoring of his fluid status. I did an angiogram on him recently and he bedolla s [id number] coronary artery disease that warrants a medical management and the patient does no t have any active symptoms, and on the echo from July 2022, his ejection fraction was normal. 2.Chronic diastolic heart failure with significant left ventricular hypertrophy. No known recent ec ho. There is no need to repeat echo. Recommend an aggressive blood pressure control. He is not all ergic to amlodipine. I recommend to start it and other agents can be initiated also at this time as Imdur. Patient needs his blood pressure under better control to have his heart failure symptoms unde r control. There is no active cardiac issue at this point, and I will sign off on the case. /KOLE Voice ID: [id number] Report ID: [id number]
[2023-01-17 02:08] VITALS: BMI 18.5
[2023-01-17] MEDS: cloNIDine HCL 0.1 MG TAB PO SCH ×3 (05:48→20:23)
[2023-01-17 06:10] LABS: Albumin 3.4 g/dL (3.4-5.0); Magnesium 2.1 mg/dL (1.6-2.4); Phosphorus 3.8 mg/dL (2.5-4.9)
[2023-01-17] MEDS: carvediloL 25 MG TAB PO SCH ×2 (06:58→17:54)
[2023-01-17] MEDS: HYDRALAZINE HCL 25 MG TABLET PO SCH ×3 (08:28→20:23)
--- NOTE | 2023-01-17 10:01 | P.DS ---
Admission Date: 01/17/23 Discharge Date: 01/18/23 Disposition: ROUTINE DISCHARGE Discharge Condition: GOOD Reason for Admission: Hypertensive urgency Consultations: tentative 01/18 [facility] Cardiology - Dr. Fuller Nephrology - Dr. Arceo Brief History of Present Illness: 72 yo M, PMH: HTN, CKD stage 4, Dementia, HLD Patient presents to ER via EMS with complaints of high blood pressure. He reports his blood pressure was worse today, reports associate weakness, fatigue. He reports medication compliance. No reported chest pain, abdominal pain, cough, fever, shortness of breath. Hospital Course: Problem List: Hypertension urgency Acute CHF, diastolic CKD 4 Hypokalemia Hyperlipidemia Dementia Patient presented with a Hypertensive Urgency. Nephrology and cardiology was consulted. CT head negative for acute findings, noted moderate brain atrophy, advanced chronic microvascular ischemic changes, old medial right cerebellar infarct. His blood pressure medications were adjusted and had significant improvement of his symptoms. Renal function remained stable at baseline. Mentation was at baseline. Cardiology and Nephrology were consulted. Echo without any new findings, noted normal EF, +Diastolic dysfunction, +Severe concentric LVH. Patient does have dementia that seems to be advancing over the last year. Discussed with , to have further discussions with [facility] to see what options are available to assist with managing/care of patient as this progresses in the near future. New / change in prescriptions Hydralazine - increased from 50mg to 100mg three times / day Continue other home medications as previously prescribed Follow up: PCP within 1 week Cardiology within 1-2 weeks Nephrology within 2 weeks Physical Exam: GEN: Alert, oriented x2, dementia HEENT: Normal conjunctiva, sclera anicteric CV: Regular rate and rhythm, no edema Pulm: Nonlabored respirations on room air ABD: Soft, nontender, nondistended Neuro: Normal speech, normal affect Vital Signs/Physical Exam: Temp Pulse Resp BP Pulse Ox 97.6 F 74 18 173/79 H 92 01/17/23 04:00 01/17/23 06:58 01/17/23 04:00 01/17/23 06:58 01/17/23 04:00 Laboratory Data at Discharge: WBC 4.00 thou/uL (4.3-10.9) L 01/15/23 21:25 Hgb 13.7 g/dL (13.6-17.9) 01/15/23 21:25 Hct 41.3 % (39.6-49.0) 01/15/23 21:25 Plt Count 220 thou/uL (152-406) 01/15/23 21:25 PT 9.8 SECONDS (9.5-12.5) 01/15/23 21:25 INR 0.89 01/15/23 21:25 Sodium 137 mEq/L (136-145) D 01/17/23 05:10 Potassium 4.0 mEq/L (3.5-5.1) 01/17/23 05:10 BUN 40 mg/dL (7-18) H 01/17/23 05:10 Creatinine 2.80 mg/dL (0.70-1.30) H 01/17/23 05:10 Glucose 106 mg/dL (74-106) 01/17/23 05:10 Phosphorus 3.8 mg/dL (2.5-4.9) 01/17/23 05:10 Magnesium 2.1 mg/dL (1.6-2.4) 01/17/23 05:10 Total Bilirubin 0.2 mg/dL (0.2-1.0) 01/15/23 21:25 AST 22 U/L (15-37) 01/15/23 21:25 ALT 38 U/L (16-61) 01/15/23 21:25 Alkaline Phosphatase 62 U/L (45-117) 01/15/23 21:25 Lipase 97 U/L (13-75) H 01/15/23 21:25 Home Medications: Amlodipine [Norvasc*] 5 mg PO DAILY 08/06/22 Aspirin [Aspirin EC] 81 mg PO DAILY #30 tab 08/12/22 Sodium Bicarbonate 1,300 mg PO BID #120 tab 08/12/22 Clonidine HCl [Catapres*] 0.2 mg PO TID #90 tab 08/22/22 Atorvastatin Calcium [Lipitor] 10 mg PO BEDTIME 01/17/23 Polyethylene Glycol 3350 [Miralax] 17 gm PO DAILY 01/17/23 carvediloL [Coreg*] 25 mg PO BID 01/17/23 Hydralazine HCl 100 mg PO TID 30 Days #90 tab 01/18/23 New Medications: Hydralazine HCl 100 mg PO TID 30 Days #90 tab Physician Discharge Instructions: Patient presented with a Hypertensive Urgency. Nephrology and cardiology was consulted. CT head negative for acute findings, noted moderate brain atrophy, advanced chronic microvascular ischemic changes, old medial right cerebellar infarct. His blood pressure medications were adjusted and had significant improvement of his symptoms. Renal function remained stable at baseline. Mentation was at baseline. Cardiology and Nephrology were consulted. Echo without any new findings, noted normal EF, +Diastolic dysfunction, +Severe concentric LVH. Patient does have dementia that seems to be advancing over the last year. Discussed with , to have further discussions with [facility] to see what options are available to assist with managing/care of patient as this progresses in the near future. New / change in prescriptions Hydralazine - increased from 50mg to 100mg three times / day Continue other home medications as previously prescribed Follow up: PCP within 1 week Cardiology Nephrology Followup: Unknown,U [Primary Care Provider] - Time spent managing pt's care (in minutes): 45
--- NOTE | 2023-01-17 12:33 | EKG ---
Test Date: 2023-01-15 Test Time: 21:18:06 Financial Operations Analyst: LIBORIO MEASUREMENT RESULTS: Intervals: Rate: 71 TN: 164 QRSD: 76 QT: 436 QTc: 473 Enigma: P: 50 TN: 164 QRS: 61 T: 51 INTERPRETIVE STATEMENTS: Sinus rhythm with occasional and consecutive premature ventricular complexes and fusion complexes Voltage criteria for left ventricular hypertrophy Nonspecific ST abnormality Abnormal ECG Compared to ECG 09/22/2022 12:55:27 Fusion complex(es) now present Ventricular premature complex(es) now present Left ventricular hypertrophy now present ST (T wave) deviation now present Sinus arrhythmia no longer present Right-axis deviation no longer present Myocardial infarct finding no longer present Electronically Signed On 01-17-23 12:32:34 CDT by Clark Fuller
--- NOTE | 2023-01-17 12:47 | ECHO ---
HEIGHT: 5 ft 4 in WEIGHT: 108 lb 0 oz DATE OF STUDY: 01/17/[address]: Gina Estrella 2-DIMENSIONAL: YES M.MODE: YES DOPPLER: YES COLOR FLOW: YES TDS: PORTABLE: YES DEFINITY: BUBBLE STUDY: DIAGNOSIS: ACUTE HEART FAILURE CARDIAC HISTORY: CATHERIZATION: SURGERY: PROSTHETIC VALVE: PACEMAKER: MEASUREMENTS (cm) DIASTOLIC (NORMALS) SYSTOLIC (NORMALS) IVSd 2.1 (0.6-1.2) LA Diam 3.6 (1.9-4.0) LVEF 88% LVIDd 3.8 (3.5-5.7) LVIDs 1.6 (2.0-3.5) %FS 57% LVPWd 2.0 (0.6-1.2) Ao Diam 2.7 (2.0-3.7) 2 DIMENSIONAL ASSESSMENT: RIGHT ATRIUM: NORMAL LEFT ATRIUM: NORMAL RIGHT VENTRICLE: NORMAL LEFT VENTRICLE: SEVERE LEFT VENTRICULAR HYPERTROPHY TRICUSPID VALVE: MILD TRICUSPID REGURGITATION MITRAL VALVE: MILD MITRAL REGURGITATION PULMONIC VALVE: NORMAL AORTIC VALVE: NORMAL PERICARDIAL EFFUSION: NONE AORTIC ROOT: NORMAL LEFT VENTRICULAR WALL MOTION: NORMAL DOPPLER/COLOR FLOW: MILD MITRAL REGURGITATION/ MILD TRICUSPID REGURGITATION COMMENTS: 1. NORMAL LEFT VENTRICULAR EJECTION FRACTION GREATER THAN 60 % WITH NORMAL WALL MOTION 2. SEVERE CONCENTRIC LEFT VENTRICULAR HYPERTROPHY 3. DIASTOLIC DYSFUNCTION 4. MILD MITRAL REGURGITATION 5. MILD TRICUSPID REGURGITATION TECHNOLOGIST: VENITA MACIAS
--- NOTE | 2023-01-17 12:54 | PN ---
Date of Progress Note: 01/17/2023 Subjective: The patient was admitted with hypertension, acute kidney injury. The patient's blood pr essure got controlled, kidney function back to baseline. The patient feeling better on room air. Physical Examination: Vital Signs: Blood pressure 119/63, pulse of 73, afebrile. Chest: Clear to auscultation. Heart: S1, S2. Regular. Abdomen: Soft, nontender. Extremity: No edema. Neuro: Alert. Resting tremor. Has dementia. Laboratory Data: Hemoglobin 13.7. Sodium 137, potassium 4, bicarb 23, BUN 40, creatinine 2.8, calci um 9.8, phosphorus 3.8, magnesium 2.1, albumin 3.4, PTH 180. Current Medications: The patient on include Tylenol, alprazolam, Zoloft, hydralazine 100 t.i.d., ivette nidine 0.1 t.i.d., and carvedilol. Assessment And Plan: 1.Chronic kidney disease stage 3B/4 secondary to hypertension nephrosclerosis, stable on his baselin e, normal volume. I am going to continue the patient on current medications and we will continue to monitor. Keep holding the Lasix. 2.Acidosis secondary to renal failure, resolved. Keep holding bicarb. 3.Hypertension, controlled, optimal. Continue current treatment. Hydralazine has been increased. 4.Anemia of chronic kidney disease. Hemoglobin is stable. No need for any MARLEEN. 5.Gout, stable. 6.Hyponatremia, stable. No need for treatment. 7.Dementia as by primary. Follow up with primary. Time spent examining the patient [id number], reviewing data, lab and radiology, discussing the case with the family by bedside, discussing the case with the sales floor team member including the nursing staff and hospitalist more than 35 minutes. MIR Voice ID: [id number] Report ID: [id number]
[2023-01-17 23:40] VITALS: O2SAT 98
[2023-01-18 03:08] LABS: Absolute Lymphocytes (CBC) 1.1 K/uL (0.7-4.9); Hematocrit 39.6 % (39.6-49.0); Lymphocytes % 31.7 % (15.3-44.8); MCV 89.7 fL (80-100); MPV 8.5 fL (7.6-11.3); RBC Red Blood Cell Count 4.41 M/uL (4.33-5.43)
[2023-01-18 03:30] LABS: Albumin 3.4 g/dL (3.4-5.0); Magnesium 2.3 mg/dL (1.6-2.4); Phosphorus 3.9 mg/dL (2.5-4.9); Potassium 3.9 mEq/L (3.5-5.1)
[2023-01-18] MEDS: carvediloL 25 MG TAB PO SCH (06:38)
[2023-01-18] MEDS ORDERED: POTASSIUM CL SA 10 MEQ TAB PO ONE (07:58)
[2023-01-18] MEDS: cloNIDine HCL 0.1 MG TAB PO SCH (08:56)
[2023-01-18] MEDS: HYDRALAZINE HCL 25 MG TABLET PO SCH (08:56)
[2023-01-18 12:25] VITALS: BP 166/74; TEMP 98.4
== END 2023-01-18 13:20 | disposition home or self-care (01) | DRG 304 ==
LOC: ER 21:14 → ERHOLD 01-16 00:35 → 2ND 01-16 01:09 → OBSVTOIN 01-17 12:54
PROVIDERS: ADMIT Internal Medicine; ATTEND Hospitalist
DX: I16.0 Hypertensive urgency (principal); I50.31 Acute diastolic (congestive) heart failure; N18.4 Chronic kidney disease, stage 4 (severe); N17.9 Acute kidney failure, unspecified; E87.20 Acidosis, unspecified; E87.1 Hypo-osmolality and hyponatremia; I13.0 Hypertensive heart and chronic kidney disease with heart failure and stage 1 through stage 4 chronic kidney disease, or unspecified chronic kidney disease; D63.1 Anemia in chronic kidney disease; M10.9 Gout, unspecified; D50.9 Iron deficiency anemia, unspecified; E87.6 Hypokalemia; F03.90 Unspecified dementia, unspecified severity, without behavioral disturbance, psychotic disturbance, mood disturbance, and anxiety; E78.5 Hyperlipidemia, unspecified; Z90.5 Acquired absence of kidney; Z86.73 Personal history of transient ischemic attack (TIA), and cerebral infarction without residual deficits; Z79.02 Long term (current) use of antithrombotics/antiplatelets; Z79.52 Long term (current) use of systemic steroids; Z85.528 Personal history of other malignant neoplasm of kidney; Z79.899 Other long term (current) drug therapy
CPT/HCPCS: 36415; 70450; 71045; 80048; 80069; 80076; 83690; 83735; 83880; 83970; 84443; 84484; 85025; 85610; 93005; 93306; 99285; G0378; J0360; J1940; J7030; J7040

== ENCOUNTER 2023-03-01 12:43 | Emergency (ER) | payer OTHER ==
--- OUTSIDE RECORDS SUMMARY | 2023-03-01 12:49 | XMS REPORT | Continuity of Care Document ---
:1950 Author Organization [facility] t Address [address] [place] [address] Care Team Providers Name Role Phone SHARPLESS Primary Care Physician Unavailable RADIOLOGY Attending Clinician Unavailable Radiology Attending Clinician Unavailable Paolo Ly Attending Clinician Unavailable DEMETRIUS LARKIN Attending Clinician Unavailable FARZAD JACKSON Attending Clinician Unavailable PAOLO LY Admitting Clinician Unavailable Paolo Ly Admitting Clinician Unavailable DEMETRIUS LARKIN Admitting Clinician Unavailable FARZAD JACKSON Admitting Clinician Unavailable Payers Payer Name Policy Type Policy Number Effective Date Expiration Date May guzmán MEDICARE PART A [id number] 2017 \\T\\ B 00:00:00 [place] PPO [id number] MEDICARE A B [id number] 2017 00:00:00 Problems Condition Condition Condition Status Onset Resolution Last Treating Co mments Source Name Details Category Date Date Treatment Clinician Date Pre-op Pre-op Disease Active [facility] 00 [place] Renal Renal Disease Active [facility] mass, left mass, left 3-27 Mary kes 00:00: Medical 00 [place] Neoplasm Neoplasm Disease Active [facility] [...] Active Univers ALLERGIE Class ity of S [facility] NO KNOWN Allergy Active [facility] ALLERGJO ANN [facility] Social History Social Habit Start Date Stop Date Quantity Comments Source History of tobacco Cigarette Smoker [facility] use [facility] Exposure to 2022-11-17 2022-11-27 Not sure University of SARS-CoV-2 (event) 00:00:00 09:20:00 [facility] Alcohol intake 2017-10-10 2017-10-[address] [facility] May coronel Lusarbjit 00:00:00 00:00:00 of [facility] (finding) Tobacco use and 2017-10-01 2017-10-01 Smokeless [facility] Mary jacobss exposure 00:00:00 00:00:00 tobacco non-user [facility] Cigarettes smoked 2017-10-01 2017-10-[address] [facility] sarbjit current (pack per 00:00:00 00:00:00 Medical Center day) - Reported Sex Assigned At [birth year] [facility] 00:00:00 00:00:00 [facility] Smoking Status Start Date Stop Date Source Tobacco smoking consumption [facility] Smokes tobacco daily 2017-10-01 00:00:00 [facility] Medications Ordered Filled Start Stop Current Ordering Indication Dosage Frequency Signature Comments Components Source Medication Medication Date Date Medication? Clinician (SIG) Name Name LORazepam 2022- No [id number] 1mg 1 mg, U nivers (ATIVAN) 11-27 05-15 Oral, ity of tablet 1 mg 17:30: 15:[place], On [facility] [place] 11/27/22 at 1230, Routine LORazepam 2022- No [id number] 1mg 1 mg, U nivers (ATIVAN) 11-27 05-15 Oral, ity of tablet 1 mg 17:30: 15:15 [place] dose, On [facility] 11/27/22 at 1230, Routine furosemide 2018-0 Yes 40mg Take [address] (LASIX) 40 4-01 by mouth [facility] tablet 03:27: every Medical 05 other day. Center amLODIPine 2018-0 Yes 10mg QD Take [address] (NORVASC) 4-01 by mouth [facility] 10 MG 03:27: daily. Medical tablet 05 [place] cloNIDine 2018-0 Yes .3mg Q.[id number] Take 0.[address] [facility] [address] HCl 4-01 [id number] mg by [facility] (CATAPRES) 03:27: 3D mouth 3 Medi jennifer 0.3 MG 05 (three) Center tablet times daily. cloNIDine 2018-0 Yes .3mg Q.[id number] Take 0.[address] [facility] [address] HCl 4-01 [id number] mg by [facility] (CATAPRES) 03:27: 3D mouth 3 Medi jennifer 0.3 MG 05 (three) Center tablet times daily. furosemide 2018-0 Yes 40mg Take [address] (LASIX) 40 4-01 by mouth [facility] MG tablet 03:27: every Medical 05 other day. [place] amLODIPine 2018-0 Yes 10mg QD Take [address] (NORVASC) 4-01 by mouth [facility] 10 MG 03:27: daily. Medical tablet 05 [place] furosemide 2018-0 Yes 40mg Take [address] (LASIX) 40 4-01 by mouth [facility] MG tablet 03:27: every Medical 05 other day. [place] amLODIPine 2018-0 Yes 10mg QD Take [address] (NORVASC) 4-01 by mouth [facility] 10 MG 03:27: daily. Medical tablet 05 [place] cloNIDine 2018-0 Yes .3mg Q.[id number] Take 0.[address] [facility] [address] HCl 4-01 [id number] mg by [facility] (CATAPRES) 03:27: 3D mouth 3 Medi jennifer 0.3 MG 05 (three) Center tablet times daily. furosemide 2018-0 Yes 40mg Take [address] (LASIX) 40 4-01 by mouth [facility] MG tablet 03:27: every Medical 05 other day. [place] amLODIPine 2018-0 Yes 10mg QD Take [address] (NORVASC) 4-01 by mouth [facility] 10 MG 03:27: daily. Medical tablet 05 [place] cloNIDine 2018-0 Yes .3mg Q.[id number] Take 0.[address] [facility] [address] HCl 4-01 [id number] mg by [facility] (CATAPRES) 03:27: 3D mouth 3 Medi jennifer 0.3 MG 05 (three) Center tablet times daily. furosemide 2018-0 Yes 40mg Take [address] (LASIX) 40 4-01 by mouth [facility] MG tablet 03:27: every Medical 05 other day. [place] amLODIPine 2018-0 Yes 10mg QD Take [address] (NORVASC) 4-01 by mouth [facility] 10 MG 03:27: daily. Medical tablet 05 [place] cloNIDine 2018-0 Yes .3mg Q.[id number] Take 0.[address] [facility] [address] HCl 4-01 [id number] mg by [facility] (CATAPRES) 03:27: 3D mouth 3 Medi jennifer 0.3 MG 05 (three) Center tablet times daily. furosemide 2018-0 Yes 40mg Take [address] (LASIX) 40 4-01 by mouth [facility] MG tablet 03:27: every Medical 05 other day. [place] amLODIPine 2018-0 Yes 10mg QD Take [address] (NORVASC) 4-01 by mouth [facility] 10 MG 03:27: daily. Medical tablet 05 [place] cloNIDine 2018-0 Yes .3mg Q.[id number] Take 0.[address] [facility] [address] HCl 4-01 [id number] mg by [facility] (CATAPRES) 03:27: 3D mouth 3 Medi jennifer 0.3 MG 05 (three) Center tablet times daily. furosemide 2018-0 Yes 40mg Take [address] (LASIX) 40 4-01 by mouth [facility] MG tablet 03:27: every Medical 05 other day. [place] amLODIPine 2018-0 Yes 10mg QD Take [address] (NORVASC) 4-01 by mouth [facility] 10 MG 03:27: daily. Medical tablet 05 [place] cloNIDine 2018-0 Yes .3mg Q.[id number] Take 0.[address] [facility] HCl 4-01 [id number] mg by [facility] (CATAPRES) 03:27: 3D mouth 3 Medi jennifer 0.3 MG 05 (three) Center tablet times daily. furosemide 2018-0 Yes 40mg Take [address] (LASIX) 40 4-01 by mouth [facility] MG tablet 03:27: every Medical 05 other day. [place] amLODIPine 2018-0 Yes 10mg QD Take [address] (NORVASC) 4-01 by mouth [facility] 10 MG 03:27: daily. Medical tablet 05 [place] cloNIDine 2018-0 Yes .3mg Q.[id number] Take 0.[address] [facility] HCl 4-01 [id number] mg by [facility] (CATAPRES) 03:27: 3D mouth [...] 10 MG 03:27: daily. Medical tablet 05 [place] cloNIDine 2018-0 Yes .3mg Q.[id number] Take 0.[address] [facility] HCl 4-01 [id number] mg by [facility] (CATAPRES) 03:27: 3D mouth 3 Medi jennifer 0.3 MG 05 (three) Center tablet times daily. furosemide 2018-0 Yes 40mg Take [address] (LASIX) 40 4-01 by mouth [facility] MG tablet 03:27: every Medical 05 other day. [place] amLODIPine 2018-0 Yes 10mg QD Take [address] (NORVASC) 4-01 by mouth [facility] 10 MG 03:27: daily. Medical tablet 05 [place] cloNIDine 2018-0 Yes .3mg Q.[id number] Take 0.[address] HCl 4-01 [id number] mg by [facility] (CATAPRES) 03:27: 3D mouth 3 Medi jennifer 0.3 MG 05 (three) Center tablet times daily. furosemide 2018-0 Yes 40mg Take [address] (LASIX) 40 4-01 by mouth [facility] MG tablet 03:27: every Medical 05 other day. [place] amLODIPine 2018-0 Yes 10mg QD Take [address] (NORVASC) 4-01 by mouth [facility] 10 MG 03:27: daily. Medical tablet 05 [place] cloNIDine 2018-0 Yes .3mg Q.[id number] Take 0.[address] HCl 4-01 [id number] mg by [facility] (CATAPRES) 03:27: 3D mouth 3 Medi jennifer 0.3 MG 05 (three) Center tablet times daily. furosemide 2018-0 Yes 40mg Take [address] (LASIX) 40 4-01 by mouth [facility] MG tablet 03:27: every Medical 05 other day. [place] amLODIPine 2018-0 Yes 10mg QD Take [address] (NORVASC) 4-01 by mouth [facility] 10 MG 03:27: daily. Medical tablet 05 [place] cloNIDine 2018-0 Yes .3mg Q.[id number] Take 0.[address] HCl 4-01 [id number] mg by [facility] (CATAPRES) 03:27: 3D mouth 3 Medi jennifer 0.3 MG 05 (three) Center tablet times daily. furosemide 2018-0 Yes 40mg Take [address] (LASIX) 40 4-01 by mouth [facility] MG tablet 03:27: every Medical 05 other day. [place] amLODIPine 2018-0 Yes 10mg QD Take [address] (NORVASC) 4-01 by mouth [facility] 10 MG 03:27: daily. Medical tablet 05 [place] cloNIDine 2018-0 Yes .3mg Q.[id number] Take 0.[address] HCl 4-01 [id number] mg by [facility] (CATAPRES) 03:27: 3D mouth 3 Medi jennifer 0.3 MG 05 (three) Center tablet times daily. furosemide 2018-0 Yes 40mg Take [address] (LASIX) 40 4-01 by mouth [facility] MG tablet 03:27: every Medical 05 other day. [place] amLODIPine 2018-0 Yes 10mg QD Take [address] (NORVASC) 4-01 by mouth [facility] 10 MG 03:27: daily. Medical tablet 05 [place] cloNIDine 2018-0 Yes .3mg Q.[id number] Take 0.[address] HCl 4-01 [id number] mg by [facility] (CATAPRES) 03:27: 3D mouth 3 Medi jennifer 0.3 MG 05 (three) Center tablet times daily. furosemide 2018-0 Yes 40mg Take [address] (LASIX) 40 4-01 by mouth [facility] MG tablet 03:27: every Medical 05 other day. [place] amLODIPine 2018-0 Yes 10mg QD Take [address] (NORVASC) 4-01 by mouth [facility] 10 MG 03:27: daily. Medical tablet 05 [place] cloNIDine 2018-0 Yes .3mg Q.[id number] Take 0.[address] HCl 4-01 [id number] mg by [facility] (CATAPRES) 03:27: 3D mouth 3 Medi jennifer 0.3 MG 05 (three) Center tablet times daily. furosemide 2018-0 Yes 40mg Take [address] (LASIX) 40 4-01 by mouth [facility] MG tablet 03:27: every Medical 05 other day. [place] amLODIPine 2018-0 Yes 10mg QD Take [address] (NORVASC) 4-01 by mouth [facility] 10 MG 03:27: daily. Medical tablet 05 [place] cloNIDine 2018-0 Yes .3mg Q.[id number] Take 0.[address] HCl 4-01 [id number] mg by [facility] (CATAPRES) 03:27: 3D mouth 3 Medi jennifer 0.3 MG 05 (three) Center tablet times daily. furosemide 2018-0 Yes 40mg Take [address] (LASIX) 40 4-01 by mouth [facility] MG tablet 03:27: every Medical 05 other day. [place] amLODIPine 2018-0 Yes 10mg QD Take [address] (NORVASC) 4-01 by mouth [facility] 10 MG 03:27: daily. Medical tablet 05 [place] cloNIDine 2018-0 Yes .3mg Q.[id number] Take 0.[address] HCl 4-01 [id number] mg by [facility] (CATAPRES) 03:27: 3D mouth 3 Medi jennifer 0.3 MG 05 (three) Center tablet times daily. furosemide 2018-0 Yes 40mg Take [address] (LASIX) 40 4-01 by mouth [facility] MG tablet 03:27: every Medical 05 other day. [place] amLODIPine 2018-0 Yes 10mg QD Take [address] (NORVASC) 4-01 by mouth [facility] 10 MG 03:27: daily. Medical tablet 05 [place] cloNIDine 2018-0 Yes .3mg Q.[id number] Take 0.[address] HCl 4-01 [id number] mg by [facility] (CATAPRES) 03:27: 3D mouth 3 Medi jennifer 0.3 MG 05 (three) Center tablet times daily. furosemide 2018-0 Yes 40mg Take [address] (LASIX) 40 4-01 by mouth [facility] MG tablet 03:27: every Medical 05 other day. [place] amLODIPine 2018-0 Yes 10mg QD Take [address] (NORVASC) 4-01 by mouth [facility] 10 MG 03:27: daily. Medical tablet 05 [place] cloNIDine 2018-0 Yes .3mg Q.[id number] Take 0.[address] [facility] [address] HCl 4-01 [id number] mg by [facility] (CATAPRES) 03:27: 3D mouth 3 Medi jennifer 0.3 MG 05 (three) Center tablet times daily. furosemide 2018-0 Yes 40mg Take [address] (LASIX) 40 4-01 by mouth [facility] MG tablet 03:27: every Medical 05 other day. [place] amLODIPine 2018-0 Yes 10mg QD Take [address] (NORVASC) 4-01 by mouth [facility] 10 MG 03:27: daily. Medical tablet 05 [place] cloNIDine 2018-0 Yes .3mg Q.[id number] Take 0.[address] HCl 4-01 [id number] mg by [facility] (CATAPRES) 03:27: 3D mouth 3 Medi jennifer 0.3 MG 05 (three) Center tablet times daily. furosemide 2018-0 Yes 40mg Take [address] (LASIX) 40 4-01 by mouth [facility] MG tablet 03:27: every Medical 05 other day. [place] amLODIPine 2018-0 Yes 10mg QD Take [address] (NORVASC) 4-01 by mouth [facility] 10 MG 03:27: daily. Medical tablet 05 [place] cloNIDine 2018-0 Yes .3mg Q.[id number] Take 0.[address] [facility] [address] HCl 4-01 [id number] mg by [facility] (CATAPRES) 03:27: 3D mouth 3 Medi jennifer 0.3 MG 05 (three) Center tablet times daily. Immunizations Ordered Filled Immunization Date Status Comments [facility] e Immunization Name Name SARS-COV-2 COVID-19 2020-09-28 Completed Unive rsity of PFIZER VACCINE 00:00:00 [facility] SARS-COV-2 COVID-19 2020-09-28 Completed Unive rsity of PFIZER VACCINE 00:00:00 [facility] SARS-COV-2 COVID-19 2020-09-07 Completed Unive rsity of PFIZER VACCINE 00:00:00 [facility] SARS-COV-2 COVID-19 2020-09-07 Completed Unive rsity of PFIZER VACCINE 00:00:00 [facility] Vital Signs Vital Name Observation Time Observation Value Comments Source Systolic blood 2022-11-27 15:10:00 172 mm[Hg] Univer sity of pressure [facility] Diastolic blood 2022-11-27 15:10:00 109 mm[Hg] Unive rsity of [facility] Heart rate 2022-11-27 15:10:00 89 /min [facility] Respiratory rate 2022-11-27 15:10:00 17 /[facility] Body weight 2022-11-27 15:10:00 80.74 kg [facility] Oxygen saturation in 2022-11-27 15:10:00 98 /min [facility] Arterial blood by [facility] Pulse oximetry [place] Procedures Procedure Date / Time Performed Performing Clinician Sourmadie e MR BRAIN WO CONTRAST 2022-11-27 16:27:30 Paolo Ly [facility] Plan of Care Planned Activity [...] Medical Ce nter Vaccine (#1)] Future Scheduled 2023-03-16 Influenza Vaccine (#1) C [...] - Tdap)] Future Scheduled 1971 DTAP/TDAP/TD VACCINES [facility] 00:[facility]:00 (1 - Tdap) [code = Medical C enter DTAP/TDAP/TD VACCINES (1 - Tdap)] Future Scheduled 1971 DTAP/TDAP/TD VACCINES [facility] 00:00:00 (1 - Tdap) [code = Medical C enter DTAP/TDAP/TD VACCINES (1 - Tdap)] Future Scheduled 1971 DTAP/TDAP/TD VACCINES [facility] 00:00:00 (1 - [...] - Tdap)] Future Scheduled 1971 DTAP/TDAP/TD VACCINES [facility] 00:00:00 (1 - Tdap) [code = Medical C enter DTAP/TDAP/TD VACCINES (1 - Tdap)] Future Scheduled 1971 DTAP/TDAP/TD VACCINES [facility] 00:00:00 (1 - [...] [facility]i [facility]enn[facility] Center (combo)] Future Scheduled 1952 CT Colonography (combo) [facility] 00:00:00 [code = CT Colonography [facility]i [facility]ennifer Center (combo)] Future Scheduled 1952 Screening [facility] malignant [facility] 00:00:00 neoplasm of colon Medical Ce nter (procedure) [code = 936258082] Future Scheduled 1952 Screening for malignant [facility] 00:00:00 neoplasm of colon Medical Ce nter (procedure) [code = 976017223] Future Scheduled 1952 Screening for malignant [facility] 00:00:00 neoplasm of colon Medical Ce nter (procedure) [code = 369207847] Future Scheduled 1952 Screening for malignant [facility] 00:00:00 neoplasm of colon Medical Ce nter (procedure) [code = 778172444] Future Scheduled 1952 Sigmoidoscopy [code = [facility] S[facility]oscopy] Medical Cente r Future Scheduled 1952 Screening for malignant [facility] 00:00:00 neoplasm of colon Medical Ce nter (procedure) [code = 680188401] Future Scheduled 1952 Screening for malignant [facility] 00:00:00 neoplasm of colon Medical Ce nter (procedure) [code = 666894694] Future Scheduled 1952 CT Colonography (combo) [facility] 00:00:00 [code = CT Colonography [facility]i [facility]ennifer Center (combo)] Future Scheduled 1952 Screening for malignant [facility] 00:00:00 neoplasm of colon Medical Ce nter (procedure) [code = 656508507] Future Scheduled 1952 Screening for malignant [facility] 00:00:00 neoplasm of colon Medical Ce nter (procedure) [code = 239617033] Future Scheduled 1952 Screening for malignant [facility] 00:00:00 neoplasm of colon Medical Ce nter (procedure) [code = 958382182] Future Scheduled 1952 Screening for malignant [facility] 00:00:00 neoplasm of colon Medical Ce nter (procedure) [code = 131240671] Future Scheduled 1952 Sigmoidoscopy [code = [facility] 00:[facility] S[facility]oscopy] Medical Cente r Future Scheduled 1952 Screening for malignant [facility] 00:00:00 neoplasm of colon Medical Ce nter (procedure) [code = 868665302] Future Scheduled 1952 Screening for malignant [facility] 00:00:00 neoplasm of colon Medical Ce nter (procedure) [code = 731004479] Future Scheduled 1952 CT Colonography (combo) [facility] 00:00:00 [code = CT Colonography Medi jennifer Center (combo)] Future Scheduled 1952 Screening for malignant [facility] 00:00:00 neoplasm of colon Medical Ce nter (procedure) [code = 199517891] Future Scheduled 1952 Screening for malignant [facility] 00:00:00 neoplasm of colon Medical Ce nter (procedure) [code = 973569006] Future Scheduled 1952 Screening for malignant [facility] 00:00:00 neoplasm of colon Medical Ce nter (procedure) [code = 036346087] Future Scheduled 1952 Screening for malignant [facility] 00:00:00 neoplasm of colon Medical Ce nter (procedure) [code = 880142597] Future Scheduled 1952 Sigmoidoscopy [code = [facility] 00:[facility] S[facility]oscopy] Medical Cente r Future Scheduled 1952 Sigmoidoscopy [code = [facility] 00:00:[facility] Sigmoidoscopy] Medical Cente r Future Scheduled 1952 CT Colonography (combo) [facility] 00:00:00 [code = CT Colonography Medi jennifer Center (combo)] Future Scheduled 1952 Screening for malignant [facility] 00:00:00 neoplasm of colon Medical Ce nter (procedure) [code = 922066704] Future Scheduled 1952 Screening for malignant [facility] 00:00:00 neoplasm of colon Medical Ce nter (procedure) [code = 114579654] Future Scheduled 1952 Screening for malignant [facility] 00:00:00 neoplasm of colon Medical Ce nter (procedure) [code = 868053860] Future Scheduled 1952 Screening for malignant [facility] 00:00:00 neoplasm of colon Medical Ce nter (procedure) [code = 416665717] Future Scheduled 1952 Sigmoidoscopy [code = [facility] 00:[facility] S[facility]oscopy] Medical Cente r Future Scheduled 1952 CT Colonography (combo) [facility] 00:00:00 [code = CT Colonography [facility]i [facility]enn[facility] Center (combo)] Future Scheduled 1952 Screening for malignant [facility] 00:00:00 neoplasm of colon Medical Ce nter (procedure) [code = 408526323] Future Scheduled 1952 Screening for malignant [facility] 00:00:00 neoplasm of colon Medical Ce nter (procedure) [code = 887480596] Future Scheduled 1952 Screening for malignant [facility] 00:00:00 neoplasm of colon Medical Ce nter (procedure) [code = 775789920] Future Scheduled 1952 Screening for malignant [facility] 00:00:00 neoplasm of colon Medical Ce nter (procedure) [code = 882886269] Future Scheduled 1952 Sigmoidoscopy [facility]code = [facility] 00:[facility] S[facility]oscopy] Medical Cente r Future Scheduled 1952 CT Colonography (combo) [facility] 00:00:00 [code = CT Colonography [facility]i [facility]enn[facility] Center (combo)] Future Scheduled 1952 Screening for malignant [facility] 00:00:00 neoplasm of colon Medical Ce nter (procedure) [code = 703349880] Future Scheduled 1952 Screening for malignant [facility] 00:00:00 neoplasm of colon Medical Ce nter (procedure) [code = 967518424] Future Scheduled 1952 Screening for malignant [facility] 00:00:00 neoplasm of colon Medical Ce nter (procedure) [code = 965945562] Future Scheduled 1952 Screening for malignant [facility] 00:00:00 neoplasm of colon Medical Ce nter (procedure) [code = 308787474] Future Scheduled 1952 Sigmoidoscopy [facility]code = [facility] 00:[facility] S[facility]oscopy] Medical Cente r Future Scheduled 1952 CT Colonography (combo) [facility] 00:00:00 [code = CT Colonography [facility]i [facility]enn[facility] Center (combo)] Future Scheduled 1952 Screening for malignant [facility] 00:00:00 neoplasm of colon Medical Ce nter (procedure) [code = 687498999] Future Scheduled 1952 Screening for malignant [facility] 00:00:00 neoplasm of colon Medical Ce nter (procedure) [code = 770748551] Future Scheduled 1952 Screening for malignant [facility] 00:00:00 neoplasm of colon Medical Ce nter (procedure) [code = 254240394] Future Scheduled 1952 Screening for malignant [facility] 00:00:00 neoplasm of colon Medical Ce nter (procedure) [code = 367796002] Future Scheduled 1952 Sigmoidoscopy [facility]code = [facility] 00:[facility] S[facility]oscopy] Medical Cente r Future Scheduled 1952 CT Colonography (combo) [facility] 00:00:00 [code = CT Colonography [facility] (combo)] Future Scheduled 1952 Screening for malignant [facility] 00:00:00 neoplasm of colon Medical Ce nter (procedure) [code = 403164947] Future Scheduled 1952 Screening for malignant [facility] 00:00:00 neoplasm of colon Medical Ce nter (procedure) [code = 578120692] Future Scheduled 1952 Screening for malignant [facility] 00:00:00 neoplasm of colon Medical Ce nter (procedure) [code = 870954999] Future Scheduled 1952 Screening for malignant [facility] 00:00:00 neoplasm of colon Medical Ce nter (procedure) [code = 391713214] Future Scheduled 1952 Sigmoidoscopy [facility]code [facility] 00:[facility] S[facility]oscopy] Medical Cente r Future Scheduled 1952 CT Colonography (combo) [facility] 00:00:00 [code = CT Colonography [facility]i [facility]enn[facility] Center (combo)] Future Scheduled 1952 Screening for malignant [facility] 00:00:00 neoplasm of colon Medical Ce nter (procedure) [code = 434980722] Future Scheduled 1952 Screening for malignant [facility] 00:00:00 neoplasm of colon Medical Ce nter (procedure) [code = 505101652] Future Scheduled 1952 Screening for malignant [facility] 00:00:00 neoplasm of colon Medical Ce nter (procedure) [code = 222425838] Future Scheduled 1952 Screening for malignant [facility] 00:00:00 neoplasm of colon Medical Ce nter (procedure) [code = 672100549] Future Scheduled 1952 Sigmoidoscopy [code = [facility] 00:[facility] S[facility]oscopy] Medical Cente r Future Scheduled 1952 CT Colonography (combo) [facility] 00:00:00 [code = CT Colonography [facility] Center (combo)] Future Scheduled 1952 Screening for malignant [facility] 00:00:00 neoplasm of colon Medical Ce nter (procedure) [code = 489161199] Future Scheduled 1952 Screening for malignant [facility] 00:00:00 neoplasm of colon Medical Ce nter (procedure) [code = 149468797] Future Scheduled 1952 Screening for malignant [facility] 00:00:00 neoplasm of colon Medical Ce nter (procedure) [code = 445362155] Future Scheduled 1952 CT Colonography (combo) [facility] 00:00:00 [code = CT Colonography [facility] (combo)] Future Scheduled 1952 Screening for malignant [facility] 00:00:00 neoplasm of colon Medical Ce nter (procedure) [code = 677029163] Future Scheduled 1952 Sigmoidoscopy [code = [facility] 00:[facility] S[facility]oscopy] Medical Cente r Future Scheduled 1952 Screening for malignant [facility] 00:00:00 neoplasm of colon Medical Ce nter (procedure) [code = 316429941] Future Scheduled 1952 CT Colonography (combo) [facility] 00:00:00 [code = CT Colonography [facility] Center (combo)] Future Scheduled 1952 Screening for malignant [facility] 00:00:00 neoplasm of colon Medical Ce nter (procedure) [code = 290109356] Future Scheduled 1952 Screening for malignant [facility] 00:00:00 neoplasm of colon Medical Ce nter (procedure) [code = 757430105] Future Scheduled 1952 Screening for malignant [facility] 00:00:00 neoplasm of colon Medical Ce nter (procedure) [code = 421168431] Future Scheduled 1952 Screening for malignant [facility] 00:00:00 neoplasm of colon Medical Ce nter (procedure) [code = 977432659] Future Scheduled 1952 Screening for malignant [facility] 00:00:00 neoplasm of colon Medical Ce nter (procedure) [code = 226226141] Future Scheduled 1952 Sigmoidoscopy [facility]code = [facility] 00:[facility] S[facility]oscopy] Medical Cente r Future Scheduled 1952 Screening for malignant [facility] Test 00:00:00 neoplasm of colon Medical Ce nter (procedure) [code = 195851044] Future Scheduled 1952 CT Colonography (combo) [facility] 00:00:00 [code = CT Colonography [facility] Center (combo)] Future Scheduled 1950 Screening for malignant [facility] 00:00:00 neoplasm of colon Medical Ce nter (procedure) [code = 967248152] Future Scheduled 1952 Screening for malignant [facility] 00:00:00 neoplasm of colon Medical Ce nter (procedure) [code = 943743508] Future Scheduled 1952 Screening for malignant [facility] 00:00:00 neoplasm of colon Medical Ce nter (procedure) [code = 407387310] Future Scheduled 1952 Screening for malignant [facility] 00:00:00 neoplasm of colon Medical Ce nter (procedure) [code = 909678785] Future Scheduled 1950 Sigmoidoscopy [facility]code = [facility] Future Scheduled 1952 Screening for malignant [facility] 00:00:00 neoplasm of colon Medical Ce nter (procedure) [code = 002220423] Future Scheduled 1950 Sigmoidoscopy [facility]code = [facility] S[facility]oscopy] Medical Cent[facility] Future Scheduled 1952 CT Colonography (combo) [facility] 00:00:00 [code = CT Colonography [facility] (combo)] Future Scheduled 1952 Screening for malignant [facility] 00:00:00 neoplasm of colon Medical Ce nter (procedure) [code = 598886536] Future Scheduled 1952 Screening for malignant [facility] 00:00:00 neoplasm of colon Medical Ce nter (procedure) [code = 792990126] Future Scheduled 1952 Screening for malignant [facility] 00:00:00 neoplasm of colon Medical Ce nter (procedure) [code = 581727354] Future Scheduled 1952 Screening for malignant [facility] 00:00:00 neoplasm of colon Medical Ce [facility]ter (procedure) [code = 989309657] Future Scheduled 1950 Sigmoidoscopy [facility]code = [facility]] Medical Cent[facility] Future Scheduled 1952 CT Colonography (combo) [facility] 00:00:00 [code = [facility] ([facility] Future Scheduled 1952 Screening for malignant [facility] 00:00:00 neoplasm of colon Medical Ce nter (procedure) [code = 201187254] Future Scheduled 1952 Screening for malignant [facility] 00:00:00 neoplasm of colon Medical Ce nter (procedure) [code = 436720574] Future Scheduled 1952 Screening for malignant [facility] 00:00:00 neoplasm of colon Medical Ce [facility]ter (procedure) [code = 102962558] Future Scheduled 1952 Screening for malignant [facility] 00:00:00 neoplasm of colon Medical Ce nter (procedure) [code = 656569741] Future Scheduled 1950 Sigmoidoscopy [code = [facility]oscopy] Medical Cent[facility] Future Scheduled 1952 CT Colonography (combo) [facility] 00:00:00 [code = CT [facility] ([facility])] Future Scheduled 1952 Screening for malignant [facility] 00:00:00 neoplasm of colon Medical Ce nter (procedure) [code = 604371694] Future Scheduled 1952 Screening for malignant [facility] 00:00:00 neoplasm of colon Medical Ce nter (procedure) [code = 820276470] Future Scheduled 1952 Screening for malignant [facility] 00:00:00 neoplasm of colon Medical Ce nter (procedure) [code = 877745850] Future Scheduled 1952 Screening for malignant [facility] 00:00:00 neoplasm of colon Medical Ce nter (procedure) [code = 911162191] Future Scheduled 1950 Sigmoidoscopy [code = [facility] S[facility]oidoscopy] Medical Cent[facility] Future Scheduled 1952 CT Colonography (combo) [facility] 00:00:00 [code = CT [facility] ([facility])] Future Scheduled 1952 Screening for malignant [facility] 00:00:00 neoplasm of colon Medical Ce nter (procedure) [code = 896522767] Future Scheduled 1952 Screening for malignant [facility] 00:00:00 neoplasm of colon Medical Ce nter (procedure) [code = 758671620] Future Scheduled 1952 Screening for malignant [facility] 00:00:00 neoplasm of colon Medical Ce nter (procedure) [code = 518825509] Future Scheduled 1952 Screening for malignant [facility] 00:00:00 neoplasm of colon Medical Ce [facility]ter (procedure) [code = 988769123] Future Scheduled 1950 Sigmoidoscopy [code = [facility] 00:[facility] S[facility]oscopy] Medical Cent[facility] r Future Scheduled 1952 CT Colonography (combo) [facility] 00:00:00 [code = CT [facility] ([facility])] Future Scheduled 1952 Screening for malignant [facility] 00:00:00 neoplasm of colon Medical Ce nter (procedure) [code = 905153823] Future Scheduled 1952 Screening for malignant [facility] 00:00:00 neoplasm of colon Medical Ce nter (procedure) [code = 799509834] Future Scheduled 1952 Screening for malignant [facility] 00:00:00 neoplasm of colon Medical Ce [facility]ter (procedure) [code = 072275724] Future Scheduled 1952 Screening for malignant [facility] 00:00:00 neoplasm of colon Medical Ce nter (procedure) [code = 706646657] Future Scheduled 1950 Sigmoidoscopy [code = [facility] 00:[facility] S[facility]oidoscopy] Medical Cente r Future Scheduled 1952 CT Colonography (combo) [facility] 00:00:00 [code = CT [facility] ([facility])] Future Scheduled 1952 Screening for malignant [facility] 00:00:00 neoplasm of colon Medical Ce nter (procedure) [code = 593363460] Future Scheduled 1952 Screening for malignant [facility] 00:00:00 neoplasm of colon Medical Ce nter (procedure) [code = 080490438] Future Scheduled 1952 Screening for malignant [facility] 00:00:00 neoplasm of colon Medical Ce nter (procedure) [code = 556933706] Future Scheduled 1952 Screening for malignant [facility] 00:00:00 neoplasm of colon Medical Ce nter (procedure) [code = 024930776] Future Scheduled 1950 Sigmoidoscopy [code = [facility] 00:[facility] S[facility]oscopy] Medical Cente r Future Scheduled 1952 CT Colonography (combo) [facility] 00:00:00 [code = CT Colonography [facility] (combo)] Future Scheduled 1952 Screening for malignant [facility] 00:00:00 neoplasm of colon Medical Ce nter (procedure) [code = 185796922] Future Scheduled 1952 Screening for malignant [facility] 00:00:00 neoplasm of colon Medical Ce nter (procedure) [code = 945376995] Future Scheduled 1952 Screening for malignant [facility] 00:00:00 neoplasm of colon Medical Ce nter (procedure) [code = 631928114] Future Scheduled 1952 Screening for malignant [facility] 00:00:00 neoplasm of colon Medical Ce nter (procedure) [code = 057335004] Future Scheduled 1950 Sigmoidoscopy [facility]code [facility] S[facility]oscopy] Medical Cente r Encounters Start End Encounter Admission Attending Care Care Encounter Source Date/Time Date/Time Type Type Clinicians Facility Department ID 2022-11-27 2022-11-27 Outpatient R RADIOLOGY [facility] [id number] [facility] 09:20:30 23:59:00 ity of [facility] 2022-11-27 2022-11-27 Hospital Radiology [facility] [id number] [facility] 09:20:30 23:59:00 Encounter HEALTH [id number] ity of [place] [id number] [facility] may [place] [id number] [facility] [address] ([facility]) 2022-10-28 2022-10-28 Outpatient ENZO Fonseca [facility] [id number] [facility] 17:30:00 17:30:00 Paolo 92 [facility] 2022-10-26 2022-10-26 Inpatient ENZO Fonseca RI [id number] [facility] 11:00:00 11:00:00 Paolo 21 [facility] 2022-10-23 2022-10-23 Outpatient ENZO Ly [id number] [facility] 13:44:00 13:44:00 Paolo 38 [facility] 2022-10-23 2022-10-23 Outpatient ENZO Fonseca [facility] [id number] [facility] 13:14:00 13:14:00 Paolo 97 [facility] 2020-05-25 2020-05-25 Outpatient CHAYA, [facility] [id number] [facility] 00:00:00 00:00:00 DEMETRIUS 2020-05-25 2020-05-25 Outpatient LARKIN, [facility] [id number] [facility] 00:00:00 00:00:00 [place] 2020-03-02 2020-03-02 Outpatient EL [facility] [id number] [facility] 00:00:00 00:00:00 Results Test Description Test Time Test Comments Results Result [facility] e Comments - CT HEAD/BRAIN 2022-10-28 W/O CONT 00[facility]00:00 [facility] 1950 Sex: M Name: JENNIFER BELLA [facility] : 1950 Age/S: 72 / [place] [address] [place] [address] Bl Unit #: [id number] Loc: [place] [address] Phys: Paolo Ly DO Acct: [id number] Dis Date: Status: REG CLI PHONE #: [phone] Exam Date: 10/28/20221800 FAX #: [phone] Reason: FALL EXAMS: CPT CODE: [id number] CT HEAD/BRAIN W/O CONT 76072 PROCEDURE INFORMATION: Exam: CT Head Without Contrast [...] 1 Signed Report (CONTINUED) Name: JENNIFER BELLA [facility] : 1950 Age/S: 72 / M [address] [place] [address] Unit #: [id number] Loc: [place] [address] Phys: Paolo Ly DO Acct: [id number] Dis Date: Status: REG CLI PHONE #: [phone] Exam Date: 10/28/2022 1801 FAX #: [phone] Reason: FALL EXAMS: CPT CODE: [id number] CT HEAD/BRAIN W/O CONT 61522 (Continued) inferior cerebellar hemisphere which was present previously as well as 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 at 1849 Reported and signed by: Marcello Jaramillo M.D. CC: Paolo Ly DO Technologist:Efren Luis, RT(R)(CT) CTDI: DLP: Trnscb Date/Time: 10/28/2022 (1848) [email or web address] Orig Print D/T: S: 10/28/2022 (1849) PAGE 2 Signed Report - CT HEAD/BRAIN 2022-10-23 W/O CONT 00:00:00 [facility] : 1950 Sex: M Name: JENNIFER BELLA [facility] : 1950 Age/S: 72 / [place] [address] [place] [address] Bl Unit #: [id number] Loc: [place] [address] Phys: Paolo Ly DO Acct: [id number] Dis Date: Status: REG CLI PHONE #: [phone] Exam Date: 10/23/2022 1354 FAX #: [phone] Reason: INCREASED TONE CONFUSION. Report Has Been Amended EXAMS: CPT CODE: [id number] CT HEAD/BRAIN W/O CONT 64818 Addendum - 10/23/2022 SIGNED 10/23/2022 ADDENDUM: [id number] CT/CTHDBRWO Findings discussed with Dr. Ly at 3:05 p.m. central standard time at 1506 Reported and signed by: Salvador Ballesteros M.D. Addendum - 10/23/2022 SIGNED 10/23/2022 ADDENDUM: [id number] CT/CTHDBRWO Attempt was made to contact personnel [...] 1 Signed Report (CONTINUED) Name: JENNIFER BELLA [facility] : 1950 Age/S: 72 / [place] [address] [place] [address] Blvd Unit #: [id number] Loc: [place] [address] Phys: Paolo Ly DO Acct: [id number] Dis Date: Status: REG CLI PHONE #: [phone] Exam Date: 10/23/2022 1354 FAX #: [phone] Reason: INCREASED TONE CONFUSION. Report Has Been Amended EXAMS: CPT CODE: [id number] CT HEAD/BRAIN W/O CONT 25950 (Continued) Brain: Hypoattenuation consistent with age-indeterminate infarction [...] Salvador Ballesteros M.D. CC: Paolo Ly DO Technologist:RT Zulay(R)(CT) CTDI: DLP: Trnscb Date/Time: 10/23/2022 (1416) [email or web address] Orig Print D/T: S: 10/23/2022 (0475) PAGE 2 Signed Report MR, ABDOMEN, 2020-05-25 Unlisted WITHOUT IV 16:51:00 Reason for CONTRAST Exam - Click [facility] - Yes and Enter MEDICAL CENTERName: Reason [...] disease in the abdomen. Signed: [facility] Verified Date/Time: 05/25/2020 16:51:08 Reading Location: [facility] C0[facility] Transitional Reading Room , CHEST, 2 2020-05-25 Reason for VIEWS 10:10:00 Exam:->Person al history of [facility] CENTERName: JENNIFER BELLA : 1950 Sex: M FINAL REPORT EXAMINATION: [...] IMPRESSION: No acute thoracic abnormality. Signed: Ariadne Ashbyepdanii Verified Date/Time: 05/25/2020 10:10:41 Reading Location: [facility] Reading Room [address] [place] [address] UE EXAM 2017-10-16 Surgical Pathology Report 09:38:00 Case: [id number] Authorizing Provider: Demetrius Larkin MD Collected: 10/09/2017 1652 Ordering Location: [facility] PERI[facility] Received: 10/10/2017 0810 SERVICES Pathologist: [...] SYNOPTIC REPORT Signing Pathologist Direct Phone Line: [phone] y signed by Joyce Sauceda MD on 10/16/2017 at 9:38 AMThe relative revisions of traditional Dami nuclear grading in predicting 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 The assessment of nucleolar prominence as a single parameter is noted to correlate better with outcome than other nuclear parameters (size, shape) to assign a [place] grade. ("Urologic Surgical Pathology," Janelle, third edition, 2014). Nuclear grade assigned in Synoptic portion of this report (tw, can include).This patient's previous biopsy from [facility], from 03/02/2017 ([id number]) shows a core biopsy with features similar [...] Additional Pathological Findings: Cyst(s): Simple cortical cyst 92899 X 2, 42810, 23560 x6Left renal massA. Retroperitoneal lymph node. B. [...] positive; AE1/AE3-positive; RICHARD and CK 7-focally positive; BG79-fofagsci CD10 equivocal, possibly focally positiveThe immunohistochemistry test was developed and its performance characteristics determined by [facility], Pathology Laboratory. It has not been [...] NOT 1092) ACCURATE CRE ATININE CLEARANCE IN MO EDICTING GLOMERULAR FILT RATION RATE. ESTIMATED GFR IS NOT APPLICABLE FOR DIALYSIS PATIENTS. CBC W/PLT COUNT & AUTO [id number] 12:44:00 Test Item Value Reference Range Interpretation [...] (BEAKER) (test code = 2801) BASIC METABOLIC [id number] 15:02:00 Test Item Value Reference Range Interpretation [...] FOR DIALYSIS PATIEN TS. Please draw at 2[facility] METABOLIC [id number] 06:14:00 Test Item Value Reference Range Interpretation [...] S NOT APPLICABLE FOR DIALYSIS PATIEN TS. [id number] 06:03:00 Test Item Value Reference Range Interpretation Comments PHOSPHORUS (BEAKER) (test code = 2.7 mg/dL 2.3-4.7 604) [id number] 06:03:00 Test Item Value Reference Range Interpretation Comments MAGNESIUM (BEAKER) (test code = 2.1 mg/dL 1.6-2.6 627) CBC W/PLT COUNT & AUTO [id number] 05:16:00 Test Item Value Reference Range Interpretation [...] 20-55 (test code = 2590) BASIC METABOLIC [id number] 05:41:00 Test Item Value Reference Range Interpretation [...] S NOT APPLICABLE FOR DIALYSIS PATIEN TS. [id number] 05:36:00 Test Item Value Reference Range Interpretation Comments PHOSPHORUS (BEAKER) (test code = 2.8 mg/dL 2.3-4.7 604) [id number] 05:36:00 Test Item Value Reference Range Interpretation Comments MAGNESIUM (BEAKER) (test code = 2.2 mg/dL 1.6-2.6 627) PTH, [id number] 05:33:00 Test Item Value Reference Range Interpretation Comments PARATHYROID HORMONE INTACT 212.3 pg/mL 8.5-72.5 H (BEAKER) (test code = 577) CBC W/PLT COUNT & AUTO [id number] 05:02:00 Test Item Value Reference Range Interpretation [...] 0-1 PERCENT (BEAKER) (test code = 2801) [id number] 06:36:00 Test Item Value Reference Range Interpretation Comments PHOSPHORUS (BEAKER) (test code = 2.4 mg/dL 2.3-4.7 604) [id number] 06:36:00 Test Item Value Reference Range Interpretation Comments MAGNESIUM (BEAKER) (test code = 1.8 mg/dL 1.6-2.6 627) BASIC METABOLIC [id number] 06:36:00 Test Item Value Reference Range Interpretation [...] PATIEN TS. CBC W/PLT COUNT & AUTO [id number] 05:59:00 Test Item Value Reference Range Interpretation [...] 0-1 PERCENT (BEAKER) (test code = 2801) [id number] 19:38:00 Test Item Value Reference Range Interpretation Comments PHOSPHORUS (BEAKER) (test code = 2.8 mg/dL 2.3-4.7 604) [id number] 19:38:00 Test Item Value Reference Range Interpretation Comments MAGNESIUM (BEAKER) (test code = 1.7 mg/dL 1.6-2.6 627) BASIC METABOLIC [id number] 19:35:00 Test Item Value Reference Range Interpretation [...] APPLICABLE FOR DIALYSIS PATIEN TS. HEMOGLOBIN AND [id number] 19:07:00 Test Item Value Reference Range Interpretation Comments HEMOGLOBIN (BEAKER) (test code = 13.7 GM/DL 13.7-17.5 410) HEMATOCRIT (BEAKER) (test code = 40.5 % 40.1-51.0 411) URINE [id number] 13:12:00 Test Item Value Reference Range Interpretation Comments CULTURE (BEAKER) (test code = 1095) No growth BASIC METABOLIC [id number] 17:19:00 Test Item Value Reference Range Interpretation [...] APPLICABLE FOR DIALYSIS PATIEN TS. URINALYSIS W/ [id number] 17:15:00 Test Item Value Reference Range Interpretation [...] 1574) Rare SOURCE(BEAKER) (test code = 2795) [id number] 17:07:00 Test Item Value Reference Range Interpretation Comments PARTIAL THROMBOPLASTIN TIME 28.1 seconds 22.5-36.0 (BEAKER) (test code = 760) PROTHROMBIN [id number] 17:06:00 Test Item Value Reference Range Interpretation Comments PROTIME (BEAKER) (test code = 13.6 seconds 11.7-14.7 759) INR (BEAKER) (test code = 370) 1.0 <=5.9 RECOMMENDED COUMADIN/WARFARIN INR THERAPY RANGESSTANDARD DOSE: 2.0 - 3.0 Includes: PROPHYLAXIS for venous thrombosis, systemic embolization; TREATMENT for venous thrombosis and/or pulmonary embolus.HIGH RISK: Target INR is 2.5-3.5 for patients with mechanical heart valves.CBC W/PLT COUNT & AUTO [id number] 16:53:00 Test Item Value Reference Range Interpretation [...] PERCENT (BEAKER) (test code = 2801) TISSUE [id number] 11:47:00Surgical Pathology Report Case: [id number] Authorizing Provider: Farzad Jackson Collected: 03/02/2017 Stephen9 MD Cinthia Ordering Location: [facility] Diagnostic Imaging Received: 03/02/2017 1140 Pathologis [...] am. Intradepartmental consultation: Dr. Koko Whitney, Dr. Sanz [facility]/sm19313, 13984, 12176 x2Left kidney biopsy massKisan carlos [facility] massThe specimen is received in fixative and [...] developed and its performance characteristics determined by [facility], Pathology Laboratory. It has notbeen cleared or [...] qualified to perform high complexity clinical laboratory testing.[id number] 08:19:00 Test Item Value Reference Range Interpretation [...] mechanical heart valves.CBC W/PLT COUNT & AUTO [id number] 08:14:00 Test Item Value Reference Range Interpretation [...] Source 2017-10-10 00:13:00-00:[address] [facility] REPORT OF PROCEDURE JENA JENNIFER SUGEY FACILITY: [facility] BILLING #: [id number] ROOM: [facility] [id number] MR #: [id number] : 1950 DATE OF PROCEDURE: 10/09/2017 SURGEON: Demetrius Larkin MD [employer] COORDINATOR: Marizol Gonsales MD, PhD PREOPERATIVE DIAGNOSIS: Left renal mass. POSTOPERATIVE DIAGNOSIS: Left renal mass. OPERATIVE PROCEDURE: Left lapro-endoscopic singl e-site radical nephrectomy with retroperitoneal lymph node dissection. ANESTHESIA: General. BLOOD LOSS: 50 mL. COMPLICATIONS: None. SPECIMENS 1. Left kidney and hilar lymph nodes. 2. Retroperitoneal lymph node dissection. FINDING: Single right renal artery and 2 right r enal veins. DRAIN: A 16-Bolivian Hart catheter. OPERATIVE PROCEDURE: Mr. Bella is [...] entered digitally. We then placed the applied [employer] dical single-site device at this location with [...] inferior mesenteric artery. This was extracted through th e Mc4 device. Next, the kidney was placed in [...] aspec ts of the procedure. Jeny P A Job#: [id number] Doc#: [id number] FN: [id number] cc: Demetrius Larkin MD
[2023-03-01] MEDS ORDERED: ACETAMINOPHEN 500 MG TAB ONE (13:05)
--- NOTE | 2023-03-01 13:46 | EDPHYS ---
Physician Documentation [facility] Name: Aravind Low Age: 72 yrs Sex: Male : 1950 Arrival Date: 03/01/2023 Time: 12:43 Bed 8 Private MD: ED Physician Lanre Schroeder HPI: 03/01 12:50 This 72 yrs old Black Male presents to ER via EMS with complaints of right leg pain. sb4 12:54 Onset: The symptoms/episode began/occurred gradually, and became worse today. Severity sb4 of symptoms: At their worst the symptoms were moderate this morning, in the emergency department the symptoms have improved mildly, Pain is currently a 6 / 10. The patient has experienced similar episodes in the past, chronically, but today's symptoms are worse, more painful. The patient has been recently seen by a physician:. Historical: - Allergies: 12:47 No Known Allergies; ap3 - Home Meds: 12:47 amlodipine oral [Active]; aspirin 81 mg Oral cap 1 cap once daily [Active]; ap3 atorvastatin Oral [Active]; Clonidine Oral [Active]; clopidogrel Oral [Active]; Hydralazine Oral [Active]; Metoprolol Tartrate Oral [Active]; olanzapine Oral [Active]; Sodium Bicarbonate Oral [Active]; - PMHx: 12:47 CVA; Dementia; ESRD; Gout; Hypertension; kidney cancer; ap3 - Immunization history:: Client reports receiving the 2nd dose of the Covid vaccine. - Social history:: Smoking status: unknown. ROS: 12:55 Constitutional: Negative for fever, chills, and weight loss. sb4 12:55 MS/extremity: Positive for pain, of the right leg. 12:55 All other systems are negative. Exam: 13:46 Head/Face: Normocephalic, atraumatic. Cardiovascular: Regular rate and rhythm with a sb4 normal S1 and S2. Respiratory: Lungs have equal breath sounds bilaterally, clear to auscultation and percussion. No rales, rhonchi or wheezes noted. No increased work of breathing, no retractions or nasal flaring. 13:46 Constitutional: The patient appears alert, awake, frail. 13:46 Musculoskeletal/extremity: ROM: limited active range of motion due to pain, limited passive range of motion due to pain, in the right leg. Vital Signs: 12:46 BP 149 / 88; Pulse 119; Resp 17; Temp 98.1; Pulse Ox 100% ; Weight 68.04 kg; ap3 13:37 BP 141 / 84; Pulse 99; Pulse Ox 100% ; ap3 MDM: 12:46 Patient medically screened. sb4 13:46 Differential Diagnosis strain, sprain, neuropathy. Data reviewed: vital signs, nurses sb4 notes, and as a result, I will discharge patient. Care significantly affected by the following chronic conditions: Hypertension, dementia. 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 Administered Medications: 13:01 Drug: Acetaminophen PO 1000 mg Route: PO; ap3 13:49 Follow up: Response: No adverse reaction ap3 13:51 Drug: traMADol PO 50 mg Route: PO; ap3 13:53 Follow up: Response: No adverse reaction ap3 Disposition Summary: 03/01/23 13:45 Discharge Ordered Location: Home sb4 Problem: an acute exacerbation sb4 Symptoms: have improved sb4 Condition: Stable sb4 Diagnosis - Pain in right leg sb4 Followup: sb4 - With: Private Physician - When: As needed - Reason: Recheck today's complaints, Continuance of care, Re-evaluation by your physician Discharge Instructions: - Discharge Summary Sheet sb4 - Musculoskeletal Pain sb4 Forms: - Medication Reconciliation Form sb4 - Thank You Letter sb4 - Antibiotic Education sb4 - Prescription Opioid Use sb4 - Patient Portal Instructions sb4 - Leadership Thank You Letter sb4 Signatures: Rosalie Payne, RN RN ap3 Ximena King PAGabC PA-C sb4
--- NOTE | 2023-03-01 13:46 | ER ---
Nurse's Notes [facility] Name: Aravind Low Age: 72 yrs Sex: Male : 1950 Arrival Date: 03/01/2023 Time: 12:43 Bed 8 Private MD: Diagnosis: Pain in right leg Presentation: 03/01 12:46 Chief complaint: Patient states: he has been having right leg pain for some time, ap3 however today the pain is worse. Coronavirus screen: At this time, the client does not indicate any symptoms associated with coronavirus-19. Ebola Screen: No symptoms or risks identified at this time. Initial Sepsis Screen: Does the patient meet any 2 criteria? No. Patient's initial sepsis screen is negative. Does the patient have a suspected source of infection? No. Patient's initial sepsis screen is negative. Risk Assessment: Do you want to hurt yourself or someone else? Patient reports no desire to harm self or others. Onset of symptoms is unknown. 12:46 Method Of Arrival: EMS: [facility] ap3 12:46 Acuity: ANTONIO 4 ap3 Triage Assessment: 12:51 General: Appears in no apparent distress. Behavior is calm, cooperative, appropriate ap3 for age. Pain: Complains of pain in right foot and right leg Pain currently is 6 out of 10 on a pain scale. Neuro: Level of Consciousness is awake, alert, obeys commands, Oriented to person, place, time, situation. Cardiovascular: Patient's skin is warm and dry. Respiratory: Airway is patent Respiratory effort is even, unlabored, Respiratory pattern is regular, symmetrical. Historical: - Allergies: 12:47 No Known Allergies; ap3 - Home Meds: 12:47 amlodipine oral [Active]; aspirin 81 mg Oral cap 1 cap once daily [Active]; ap3 atorvastatin Oral [Active]; Clonidine Oral [Active]; clopidogrel Oral [Active]; Hydralazine Oral [Active]; Metoprolol Tartrate Oral [Active]; olanzapine Oral [Active]; Sodium Bicarbonate Oral [Active]; - PMHx: 12:47 CVA; Dementia; ESRD; Gout; Hypertension; kidney cancer; ap3 - Immunization history:: Client reports receiving the 2nd dose of the Covid vaccine. - Social history:: Smoking status: unknown. Screenin:51 Abuse screen: Denies threats or abuse. Nutritional screening: No deficits noted. ap3 Tuberculosis screening: No symptoms or risk factors identified. 13:52 [facility] ED Fall Risk Assessment (Adult) History of falling in the last 3 months, ap3 including since admission Yes- fall prone (multiple falls) (3 pts) Confusion or Disorientation No (0 pts) Intoxicated or Sedated No (0 pts) Impaired Gait Yes (1 pt) Mobility Assist Device Used Yes (1 pt). Vital Signs: 12:46 BP 149 / 88; Pulse 119; Resp 17; Temp 98.1; Pulse Ox 100% ; Weight 68.04 kg; ap3 13:37 BP 141 / 84; Pulse 99; Pulse Ox 100% ; ap3 ED Course: 12:45 Patient arrived in ED. sb4 12:46 [facility] sb4 12:46 Lanre Schroeder MD is Attending Physician. sb4 12:46 Rosalie Payne RN is Primary Nurse. ap3 12:47 Triage completed. ap3 12:52 Arm band placed on right wrist. ap3 12:52 Patient has correct armband on for positive identification. Bed in low position. Call ap3 light in reach. Side rails up X2. Pulse ox on. NIBP on. 13:51 No provider procedures requiring assistance completed. Patient did not have IV access ap3 during this emergency room visit. 13:52 Provided Education on: medications prior to administration. ap3 Administered Medications: 13:01 Drug: Acetaminophen PO 1000 mg Route: PO; ap3 13:49 Follow up: Response: No adverse reaction ap3 13:51 Drug: traMADol PO 50 mg Route: PO; ap3 13:53 Follow up: Response: No adverse reaction ap3 Medication: 12:52 VIS not applicable for this client. ap3 Outcome: 13:45 Discharge ordered by . sb4 13:52 Discharged to home with family. ap3 13:52 Condition: good 13:52 Discharge instructions given to family, Instructed on discharge instructions, follow up and referral plans. Demonstrated understanding of instructions, follow-up care. 14:16 Patient left the ED. ap3 Signatures: Rosalie Payne RN RN ap3 Ximena King PA-C PA-C sb4
[2023-03-01] MEDS ORDERED: TRAMADOL HCL 50 MG TAB ONE (13:59)
[2023-03-01 14:37] VITALS: TEMP 98.1; O2SAT 100
[2023-03-01 14:38] VITALS: BP 141/84
== END 2023-03-01 14:16 | disposition home or self-care (01) ==
LOC: ER 12:43
DX: M79.604 Pain in right leg (principal); F03.90 Unspecified dementia, unspecified severity, without behavioral disturbance, psychotic disturbance, mood disturbance, and anxiety; Z79.82 Long term (current) use of aspirin
CPT/HCPCS: 99284

== ENCOUNTER 2023-03-09 03:50 | Emergency (ER) | payer OTHER ==
--- OUTSIDE RECORDS SUMMARY | 2023-03-09 03:56 | XMS REPORT | Continuity of Care Document ---
:1950 Author Organization [facility] t Address [address] [place] [address] Care Team Providers Name Role Phone SHARPLESS [...] Expiration Date [place] guzmán MEDICARE PART A [id number] 2017 \\T\\ B 00:00:00 [employer] PPO [id number] MEDICARE A B [id number] 2017 00:00:00 Problems Condition Condition Condition Status Onset Resolution Last Treating Co mments Source Name Details Category Date Date Treatment Clinician Date Pre-op Pre-op Disease Active [facility] 00 [facility] Renal Renal Disease Active [facility] mass, left mass, left 3-27 Sharmaine kes 00:00: Medical 00 [facility] Neoplasm Neoplasm Disease Active [facility] [...] Active Univers ALLERGIE Class ity of S [facility] NO KNOWN Allergy Active NEENA Cota ALLERGJO ANN sarbjit [facility] Social History Social Habit Start Date Stop Date Quantity Comments Source History of tobacco Cigarette Smoker [facility] use [facility] Exposure to 2022-11-17 2022-11-27 Not sure University of SARS-CoV-2 (event) 00:00:00 09:20:00 [facility] Alcohol intake 2017-10-10 2017-10-10 Current drinker [facility] [place] [facility] 00:[facility]:00 00:00:00 of alcohol [facility] (finding) Tobacco use and 2017-10-01 2017-10-01 Smokeless [facility] St Sharmaine kes exposure 00:00:00 00:00:00 tobacco non-user [facility] Cigarettes smoked 2017-10-01 2017-10-01 [facility] Lusarbjit current (pack per 00:00:00 00:00:00 Medical Center day) - Reported Sex Assigned At [birth year] [facility] 00:00:00 00:00:00 [facility] Center Smoking Status Start Date Stop Date Source Tobacco smoking consumption [facility] Smokes tobacco daily 2017-10-01 00:00:00 [facility] Medications Ordered Filled Start Stop Current Ordering Indication Dosage Frequency Signature Comments Components Source Medication Medication Date Date Medication? Clinician (SIG) Name Name LORazepam 2022- No [id number] 1mg 1 mg, U nivers (ATIVAN) 11-27 05-15 Oral, ity of tablet 1 mg 17:30: 15:15 [place], On [facility] 11/27/22 at 1230, Routine LORazepam 2022- No [id number] 1mg 1 mg, U nivers (ATIVAN) 11-27 05-15 Oral, ity of tablet 1 mg 17:30: 15:15 [place] dose, On [facility] 11/27/22 at 1230, Routine furosemide 2018-0 Yes 40mg Take [address] (LASIX) 40 4-01 by mouth [facility] MG tablet 03:27: every Medical 05 other day. Center amLODIPine 2018-0 Yes 10mg QD Take [address] (NORVASC) 4-01 by mouth [facility] 10 MG 03:27: daily. Medical tablet 05 Center cloNIDine 2018-0 Yes .3mg Q.[id number] Take 0.[address] [facility] [address] HCl 4-01 [id number] mg by [facility] (CATAPRES) 03:27: 3D mouth 3 Medi jennifer 0.3 MG 05 (three) Center tablet times daily. cloNIDine 2018-0 Yes .3mg Q.[id number] Take 0.[address] [facility] [address] HCl 4-01 [id number] mg by [facility] (CATAPRES) 03:27: 3D mouth [...] tablet 05 Center cloNIDine 2018-0 Yes .3mg Q.[id number] Take 0.[address] [facility] [address] HCl 4-01 [id number] mg by [facility] (CATAPRES) 03:27: 3D mouth [...] tablet 05 Center cloNIDine 2018-0 Yes .3mg Q.[id number] Take 0.[address] [address] HCl 4-01 [id number] mg by [facility] (CATAPRES) 03:27: 3D mouth 3 Medi jennifer 0.3 MG 05 (three) Center tablet times daily. furosemide 2018-0 Yes 40mg Take [address] (LASIX) 40 4-01 by mouth [facility] MG tablet 03:27: every Medical 05 other day. Fleming amLODIPine 2018-0 Yes 10mg QD Take [address] (NORVASC) 4-01 by mouth [facility] 10 MG 03:27: daily. Medical tablet 05 Fleming cloNIDine 2018-0 Yes .3mg Q.[id number] Take 0.[address] [facility] [address] HCl 4-01 [id number] mg by [facility] (CATAPRES) 03:27: 3D mouth 3 Medi jennifer 0.3 MG 05 (three) Center tablet times daily. furosemide 2018-0 Yes 40mg Take [address] (LASIX) 40 4-01 by mouth [facility] MG tablet 03:27: every Medical 05 other day. Fleming amLODIPine 2018-0 Yes 10mg QD Take [address] (NORVASC) 4-01 by mouth [facility] 10 MG 03:27: daily. Medical tablet 05 Fleming cloNIDine 2018-0 Yes .3mg Q.[id number] Take 0.[address] [facility] [address] HCl 4-01 [id number] mg by [facility] (CATAPRES) 03:27: 3D mouth 3 Medi jennifer 0.3 MG 05 (three) Center tablet times daily. furosemide 2018-0 Yes 40mg Take [address] (LASIX) 40 4-01 by mouth [facility] MG tablet 03:27: every Medical 05 other day. Fleming amLODIPine 2018-0 Yes 10mg QD Take [address] (NORVASC) 4-01 by mouth [facility] 10 MG 03:27: daily. Medical tablet 05 Fleming cloNIDine 2018-0 Yes .3mg Q.[id number] Take 0.[address] HCl 4-01 [id number] mg by [facility] (CATAPRES) 03:27: 3D mouth 3 Medi jennifer 0.3 MG 05 (three) Center tablet times daily. furosemide 2018-0 Yes 40mg Take [address] (LASIX) 40 4-01 by mouth [facility] MG tablet 03:27: every Medical 05 other day. Fleming amLODIPine 2018-0 Yes 10mg QD Take [address] (NORVASC) 4-01 by mouth [facility] 10 MG 03:27: daily. Medical tablet 05 Fleming cloNIDine 2018-0 Yes .3mg Q.[id number] Take 0.[address] [address] HCl 4-01 [id number] mg by [facility] (CATAPRES) 03:27: 3D mouth 3 Medi jennifer 0.3 MG 05 (three) Center tablet times daily. furosemide 2018-0 Yes 40mg Take [address] (LASIX) 40 4-01 by mouth [facility] MG tablet 03:27: every Medical 05 other day. Fleming amLODIPine 2018-0 Yes 10mg QD Take [address] (NORVASC) 4-01 by mouth [facility] 10 MG 03:27: daily. Medical tablet 05 Fleming cloNIDine 2018-0 Yes .3mg Q.[id number] Take 0.[address] HCl 4-01 [id number] mg by [facility] (CATAPRES) 03:27: 3D mouth 3 Medi jennifer 0.3 MG 05 (three) Center tablet times daily. furosemide 2018-0 Yes 40mg Take [address] (LASIX) 40 4-01 by mouth [facility] MG tablet 03:27: every Medical 05 other day. Fleming amLODIPine 2018-0 Yes 10mg QD Take [address] (NORVASC) 4-01 by mouth [facility] 10 MG 03:27: daily. Medical tablet 05 Fleming cloNIDine 2018-0 Yes .3mg Q.[id number] Take 0.[address] HCl 4-01 [id number] mg by [facility] (CATAPRES) 03:27: 3D mouth 3 Medi jennifer 0.3 MG 05 (three) Center tablet times daily. furosemide 2018-0 Yes 40mg Take [address] (LASIX) 40 4-01 by mouth [facility] MG tablet 03:27: every Medical 05 other day. Fleming amLODIPine 2018-0 Yes 10mg QD Take [address] (NORVASC) 4-01 by mouth [facility] 10 MG 03:27: daily. Medical tablet 05 Fleming cloNIDine 2018-0 Yes .3mg Q.[id number] Take 0.[address] HCl 4-01 [id number] mg by [facility] (CATAPRES) 03:27: 3D mouth 3 Medi jennifer 0.3 MG 05 (three) Center tablet times daily. furosemide 2018-0 Yes 40mg Take [address] (LASIX) 40 4-01 by mouth [facility] MG tablet 03:27: every Medical 05 other day. Fleming amLODIPine 2018-0 Yes 10mg QD Take [address] (NORVASC) 4-01 by mouth [facility] 10 MG 03:27: daily. Medical tablet 05 Fleming cloNIDine 2018-0 Yes .3mg Q.[id number] Take 0.[address] HCl 4-01 [id number] mg by [facility] (CATAPRES) 03:27: 3D mouth 3 Medi jennifer 0.3 MG 05 (three) Center tablet times daily. furosemide 2018-0 Yes 40mg Take [address] (LASIX) 40 4-01 by mouth [facility] MG tablet 03:27: every Medical 05 other day. Fleming amLODIPine 2018-0 Yes 10mg QD Take [address] (NORVASC) 4-01 by mouth [facility] 10 MG 03:27: daily. Medical tablet 05 Fleming cloNIDine 2018-0 Yes .3mg Q.[id number] Take 0.[address] HCl 4-01 [id number] mg by [facility] (CATAPRES) 03:27: 3D mouth 3 Medi jennifer 0.3 MG 05 (three) Center tablet times daily. furosemide 2018-0 Yes 40mg Take [address] (LASIX) 40 4-01 by mouth [facility] MG tablet 03:27: every Medical 05 other day. Fleming amLODIPine 2018-0 Yes 10mg QD Take [address] (NORVASC) 4-01 by mouth [facility] 10 MG 03:27: daily. Medical tablet 05 Fleming cloNIDine 2018-0 Yes .3mg Q.[id number] Take 0.[address] HCl 4-01 [id number] mg by [facility] (CATAPRES) 03:27: 3D mouth 3 Medi jennifer 0.3 MG 05 (three) Center tablet times daily. furosemide 2018-0 Yes 40mg Take [address] (LASIX) 40 4-01 by mouth [facility] MG tablet 03:27: every Medical 05 other day. Fleming amLODIPine 2018-0 Yes 10mg QD Take [address] (NORVASC) 4-01 by mouth [facility] 10 MG 03:27: daily. Medical tablet 05 Fleming cloNIDine 2018-0 Yes .3mg Q.[id number] Take 0.[address] HCl 4-01 [id number] mg by [facility] (CATAPRES) 03:27: 3D mouth 3 Medi jennifer 0.3 MG 05 (three) Center tablet times daily. furosemide 2018-0 Yes 40mg Take [address] (LASIX) 40 4-01 by mouth [facility] MG tablet 03:27: every Medical 05 other day. Fleming amLODIPine 2018-0 Yes 10mg QD Take [address] (NORVASC) 4-01 by mouth [facility] 10 MG 03:27: daily. Medical tablet 05 Center cloNIDine 2018-0 Yes .3mg Q.[id number] Take 0.[address] HCl 4-01 [id number] mg by [facility] (CATAPRES) 03:27: 3D mouth 3 Medi jennifer 0.3 MG 05 (three) Center tablet times daily. furosemide 2018-0 Yes 40mg Take [address] (LASIX) 40 4-01 by mouth [facility] MG tablet 03:27: every Medical 05 other day. Fleming amLODIPine 2018-0 Yes 10mg QD Take [address] (NORVASC) 4-01 by mouth [facility] 10 MG 03:27: daily. Medical tablet 05 Fleming cloNIDine 2018-0 Yes .3mg Q.[id number] Take 0.[address] HCl 4-01 [id number] mg by [facility] (CATAPRES) 03:27: 3D mouth 3 Medi jennifer 0.3 MG 05 (three) Center tablet times daily. furosemide 2018-0 Yes 40mg Take [address] (LASIX) 40 4-01 by mouth [facility] MG tablet 03:27: every Medical 05 other day. Fleming amLODIPine 2018-0 Yes 10mg QD Take [address] (NORVASC) 4-01 by mouth [facility] 10 MG 03:27: daily. Medical tablet 05 Center cloNIDine 2018-0 Yes .3mg Q.[id number] Take 0.[address] HCl 4-01 [id number] mg by [facility] (CATAPRES) 03:27: 3D mouth 3 Medi jennifer 0.3 MG 05 (three) Center tablet times daily. furosemide 2018-0 Yes 40mg Take [address] (LASIX) 40 4-01 by mouth [facility] MG tablet 03:27: every Medical 05 other day. Fleming amLODIPine 2018-0 Yes 10mg QD Take [address] (NORVASC) 4-01 by mouth [facility] 10 MG 03:27: daily. Medical tablet 05 Fleming cloNIDine 2018-0 Yes .3mg Q.[id number] Take 0.[address] HCl 4-01 [id number] mg by [facility] (CATAPRES) 03:27: 3D mouth 3 Medi jennifer 0.3 MG 05 (three) Center tablet times daily. furosemide 2018-0 Yes 40mg Take [address] (LASIX) 40 4-01 by mouth [facility] MG tablet 03:27: every Medical 05 other day. Fleming amLODIPine 2018-0 Yes 10mg QD Take [address] (NORVASC) 4-01 by mouth [facility] 10 MG 03:27: daily. Medical tablet 05 Fleming cloNIDine 2018-0 Yes .3mg Q.[id number] Take 0.[address] HCl 4-01 [id number] mg by [facility] (CATAPRES) 03:27: 3D mouth 3 Medi jennifer 0.3 MG 05 (three) Center tablet times daily. furosemide 2018-0 Yes 40mg Take [address] (LASIX) 40 4-01 by mouth [facility] MG tablet 03:27: every Medical 05 other day. Fleming amLODIPine 2018-0 Yes 10mg QD Take [address] (NORVASC) 4-01 by mouth [facility] 10 MG 03:27: daily. Medical tablet 05 Fleming cloNIDine 2018-0 Yes .3mg Q.[id number] Take 0.[address] HCl 4-01 [id number] mg by [facility] (CATAPRES) 03:27: 3D mouth 3 Medi jennifer 0.3 MG 05 (three) Center tablet times daily. furosemide 2018-0 Yes 40mg Take [address] (LASIX) 40 4-01 by mouth [facility] MG tablet 03:27: every Medical 05 other day. Fleming amLODIPine 2018-0 Yes 10mg QD Take [address] (NORVASC) 4-01 by mouth [facility] 10 MG 03:27: daily. Medical tablet 05 Fleming cloNIDine 2018-0 Yes .3mg Q.[id number] Take 0.[address] HCl 4-01 [id number] mg by [facility] (CATAPRES) 03:27: 3D mouth 3 Medi jennifer 0.3 MG 05 (three) Center tablet times daily. Immunizations Ordered Filled Immunization Date Status Comments Sohail e Immunization Name Name SARS-COV-2 COVID-19 2020-09-28 Completed [facility] SARS-COV-2 COVID-19 2020-09-28 Completed [facility]ive [facility] of PFIZER VACCINE 00:00:00 [facility] SARS-COV-2 COVID-19 2020-09-07 Completed Unive rsity of PFIZER VACCINE 00:00:00 [facility] SARS-COV-2 COVID-19 2020-09-07 Completed Unive rsity of PFIZER VACCINE 00:00:00 [facility] Vital Signs Vital Name Observation Time Observation Value Comments Source Systolic blood 2022-11-27 15:10:00 172 mm[Hg] Univer sity of pressure [facility] Diastolic blood 2022-11-27 15:10:00 109 mm[Hg] Unive rsity of pressure [facility] Heart rate 2022-11-27 15:10:00 89 /min [facility] Respiratory rate 2022-11-27 15:10:00 17 /min [facility] Body weight 2022-11-27 15:10:00 80.74 kg [facility] Oxygen saturation in 2022-11-27 15:10:00 98 /min [facility] Arterial blood by [facility] Pulse oximetry [place] Procedures Procedure Date / Time Performed Performing Clinician Sohail linda MR BRAIN WO CONTRAST 2022-11-27 16:27:30 Paolo Ly [facility] Plan of Care Planned Activity Planned [...] [facility] 00:[facility]:00 (12+) [code = [facility] DEPRESSION SCREENING (12+)] Future Scheduled 2022-07-16 [address] [facility] Test 00:00:00 [code = FALLS RISK Medical C enter SCREENING] Future Scheduled 2022-07-[address] [facility] Test 00:00:00 (12+) [code = [facility] DEPRESSION SCREENING (12+)] Future Scheduled 2022-07-16 F[place]S RISK SCREENING [facility] Test 00:00:00 [code = FALLS RISK Medical C enter SCREENING] Future Scheduled 2022-07-[address] [facility] Test 00:00:00 (12+) [code = [facility] DEPRESSION SCREENING (12+)] Future Scheduled 2022-07-16 [...] [facility] 00:00:00 2) [code = [facility] VACCINES (1 of 2)] Future Scheduled 2002 [...] colon Medical Ce nter (procedure) [code = 749374603] Future Scheduled 1952 Screening [facility] malignant [facility] Test 00:00:00 neoplasm of colon Medical Ce nter (procedure) [code = 404417472] Future Scheduled 1952 Screening [facility] malignant [facility] Test 00:00:00 neoplasm of colon Medical Ce nter (procedure) [code = 966657134] Future Scheduled 1952 Screening [facility] malignant [facility] Test 00:00:00 neoplasm of colon Medical Ce nter (procedure) [code = 360298579] Future Scheduled 1952 Sigmoidoscopy [code = [facility]oscopy] Medical Cente r Future Scheduled 1952 Screening for malignant [facility] Test 00:00:00 neoplasm of colon Medical Ce nter (procedure) [code = 736279903] Future Scheduled 1952 Screening for malignant [facility] Test 00:00:00 neoplasm of colon Medical Ce nter (procedure) [code = 099967789] Future Scheduled 1952 CT Colonography (combo) [facility] 00:00:00 [code = CT Colonography [facility] (combo)] Future Scheduled 1952 Screening for malignant [facility] Test 00:00:00 neoplasm of colon Medical Ce nter (procedure) [code = 319792111] Future Scheduled 1952 Screening for malignant [facility] Test 00:00:00 neoplasm of colon Medical Ce nter (procedure) [code = 752504970] Future Scheduled 1952 Screening [facility] malignant [facility] Test 00:00:00 neoplasm of colon Medical Ce nter (procedure) [code = 085500365] Future Scheduled 1952 Screening for malignant [facility] 00:00:00 neoplasm of colon Medical Ce nter (procedure) [code = 948113314] Future Scheduled 1952 Sigmoidoscopy [code [facility] 00:[facility] S[facility]oidoscopy] Medical Cente r Future Scheduled 1952 Screening for malignant [facility] Test 00:00:00 neoplasm of colon Medical Ce nter (procedure) [code = 348200684] Future Scheduled 1952 Screening for malignant [facility] 00:00:00 neoplasm of colon Medical Ce nter (procedure) [code = 920915587] Future Scheduled 1952 CT Colonography (combo) [facility] Test 00:00:00 [code = CT Colonography [facility] (combo)] Future Scheduled 1952 Screening for malignant [facility] Test 00:00:00 neoplasm of colon Medical Ce nter (procedure) [code = 231523433] Future Scheduled 1952 Screening for malignant [facility] 00:00:00 neoplasm of colon Medical Ce nter (procedure) [code = 898598618] Future Scheduled 1952 Screening for malignant [facility] 00:00:00 neoplasm of colon Medical Ce nter (procedure) [code = 077878235] Future Scheduled 1952 Screening [facility] malignant [facility] Test 00:00:00 neoplasm of colon Medical Ce nter (procedure) [code = 879033844] Future Scheduled 1952 Sigmoidoscopy [code = CH [...] colon Medical Ce nter (procedure) [code = 236179518] Future Scheduled 1952 Screening for malignant [facility] 00:00:00 neoplasm of colon Medical Ce nter (procedure) [code = 568356319] Future Scheduled 1952 Screening for malignant [facility] 00:00:00 neoplasm of colon Medical Ce nter (procedure) [code = 368924423] Future Scheduled 1952 Screening for malignant [facility] 00:00:00 neoplasm of colon Medical Ce nter (procedure) [code = 336656266] Future Scheduled 1952 Sigmoidoscopy [code [facility] 00:[facility] S[facility]oidoscopy] Medical Cente r Future Scheduled 1952 CT Colonography (combo) [facility] 00:00:00 [code = CT Colonography [facility] (combo)] Future Scheduled 1952 Screening for malignant [facility] Test 00:00:00 neoplasm of colon Medical Ce nter (procedure) [code = 806734884] Future Scheduled 1952 Screening for malignant [facility] 00:00:00 neoplasm of colon Medical Ce nter (procedure) [code = 859634867] Future Scheduled 1952 Screening for malignant [facility] 00:00:00 neoplasm of colon Medical Ce nter (procedure) [code = 725346876] Future Scheduled 1952 Screening for malignant [facility] 00:00:00 neoplasm of colon Medical Ce nter (procedure) [code = 900118676] Future Scheduled 1952 Sigmoidoscopy [code [facility] 00:[facility] S[facility]oidoscopy] Medical Cente r Future Scheduled 1952 CT Colonography (combo) [facility] 00:00:00 [code = CT Colonography [facility] (combo)] Future Scheduled 1952 Screening for malignant [facility] 00:00:00 neoplasm of colon Medical Ce nter (procedure) [code = 125466915] Future Scheduled 1952 Screening for malignant [facility] 00:00:00 neoplasm of colon Medical Ce nter (procedure) [code = 265924167] Future Scheduled 1952 Screening for malignant [facility] 00:00:00 neoplasm of colon Medical Ce nter (procedure) [code = 650833107] Future Scheduled 1952 Screening for malignant [facility] 00:00:00 neoplasm of colon Medical Ce nter (procedure) [code = 247714309] Future Scheduled 1952 Sigmoidoscopy [code [facility] 00:[facility] S[facility]oidoscopy] Medical Cente r Future Scheduled 1952 CT Colonography (combo) [facility] 00:00:00 [code = CT Colonography [facility] (combo)] Future Scheduled 1952 Screening for malignant [facility] 00:00:00 neoplasm of colon Medical Ce nter (procedure) [code = 079200522] Future Scheduled 1952 Screening for malignant [facility] 00:00:00 neoplasm of colon Medical Ce nter (procedure) [code = 062698799] Future Scheduled 1952 Screening for malignant [facility] 00:00:00 neoplasm of colon Medical Ce nter (procedure) [code = 053812954] Future Scheduled 1952 Screening for malignant [facility] 00:00:00 neoplasm of colon Medical Ce nter (procedure) [code = 085995867] Future Scheduled 1952 Sigmoidoscopy [code [facility] 00:[facility] Sigmoidoscopy] Medical Cente r Future Scheduled 1952 CT Colonography (combo) [facility] 00:00:00 [code = CT Colonography [facility] (combo)] Future Scheduled 1952 Screening for malignant [facility] 00:00:00 neoplasm of colon Medical Ce nter (procedure) [code = 022565325] Future Scheduled 1952 Screening for malignant [facility] 00:00:00 neoplasm of colon Medical Ce nter (procedure) [code = 333233797] Future Scheduled 1952 Screening for malignant [facility] 00:00:00 neoplasm of colon Medical Ce nter (procedure) [code = 585626180] Future Scheduled 1952 Screening for malignant [facility] 00:00:00 neoplasm of colon Medical Ce nter (procedure) [code = 577620754] Future Scheduled 1952 Sigmoidoscopy [facility]code [facility] 00:[facility] S[facility]oscopy] Medical Cente r Future Scheduled 1952 CT Colonography (combo) [facility] 00:00:00 [code = CT Colonography [facility] (combo)] Future Scheduled 1952 Screening for malignant [facility] 00:00:00 neoplasm of colon Medical Ce nter (procedure) [code = 643224177] Future Scheduled 1952 Screening for malignant [facility] 00:00:00 neoplasm of colon Medical Ce nter (procedure) [code = 753917036] Future Scheduled 1952 Screening for malignant [facility] 00:00:00 neoplasm of colon Medical Ce nter (procedure) [code = 418896062] Future Scheduled 1952 Screening for malignant [facility] 00:00:00 neoplasm of colon Medical Ce nter (procedure) [code = 888783133] Future Scheduled 1952 Sigmoidoscopy [facility] 00:[facility] S[facility]oscopy] Medical Cente r Future Scheduled 1952 CT Colonography (combo) [facility] 00:00:00 [code = CT Colonography [facility] (combo)] Future Scheduled 1952 Screening for malignant [facility] 00:00:00 neoplasm of colon Medical Ce nter (procedure) [code = 781963562] Future Scheduled 1952 Screening for malignant [facility] 00:00:00 neoplasm of colon Medical Ce nter (procedure) [code = 685027523] Future Scheduled 1952 Screening for malignant [facility] 00:00:00 neoplasm of colon Medical Ce nter (procedure) [code = 734492674] Future Scheduled 1952 CT Colonography (combo) [facility] 00:00:00 [code = CT Colonography [facility] (combo)] Future Scheduled 1952 Screening for malignant [facility] 00:00:00 neoplasm of colon Medical Ce nter (procedure) [code = 265928410] Future Scheduled 1952 Sigmoidoscopy [code [facility] 00:[facility] S[facility]oidoscopy] Medical Cente r Future Scheduled 1952 Screening for malignant [facility] 00:00:00 neoplasm of colon Medical Ce nter (procedure) [code = 539534431] Future Scheduled 1952 CT Colonography (combo) [facility] 00:00:00 [code = CT Colonography [facility] (combo)] Future Scheduled 1952 Screening for malignant [facility] 00:00:00 neoplasm of colon Medical Ce nter (procedure) [code = 401341095] Future Scheduled 1952 Screening for malignant [facility] 00:00:00 neoplasm of colon Medical Ce nter (procedure) [code = 040337431] Future Scheduled 1952 Screening for malignant [facility] 00:00:00 neoplasm of colon Medical Ce nter (procedure) [code = 801955806] Future Scheduled 1952 Screening for malignant [facility] 00:00:00 neoplasm of colon Medical Ce nter (procedure) [code = 083197586] Future Scheduled 1952 Screening for malignant [facility] 00:00:00 neoplasm of colon Medical Ce nter (procedure) [code = 600016596] Future Scheduled 1952 Sigmoidoscopy [facility]code [facility] 00:[facility] S[facility]oscopy] Medical Cente r Future Scheduled 1952 Screening for malignant [facility] 00:00:00 neoplasm of colon Medical Ce nter (procedure) [code = 565341613] Future Scheduled 1952 CT Colonography (combo) [facility] 00:00:00 [code = CT Colonography [facility] (combo)] Future Scheduled 1952 Screening for malignant [facility] 00:00:00 neoplasm of colon Medical Ce nter (procedure) [code = 812466653] Future Scheduled 1952 Screening for malignant [facility] 00:00:00 neoplasm of colon Medical Ce nter (procedure) [code = 314656651] Future Scheduled 1952 Screening for malignant [facility] 00:00:00 neoplasm of colon Medical Ce nter (procedure) [code = 873125555] Future Scheduled 1952 Screening for malignant [facility] 00:00:00 neoplasm of colon Medical Ce nter (procedure) [code = 762317200] Future Scheduled 1952 Sigmoidoscopy [facility]code [facility] 00:[facility] S[facility]oscopy] Medical Cente r Future Scheduled 1952 Screening for malignant [facility] 00:00:00 neoplasm of colon Medical Ce nter (procedure) [code = 714530707] Future Scheduled 1952 Sigmoidoscopy [code [facility] 00:[facility] S[facility]oscopy] Medical Cente r Future Scheduled 1952 CT Colonography (combo) [facility] 00:00:00 [code = CT Colonography [facility] (combo)] Future Scheduled 1952 Screening for malignant [facility] Test 00:00:00 neoplasm of colon Medical Ce nter (procedure) [code = 813519127] Future Scheduled 1952 Screening for malignant [facility] Test 00:00:00 neoplasm of colon Medical Ce nter (procedure) [code = 688896617] Future Scheduled 1950 Screening for malignant [facility] 00:00:00 neoplasm of colon [facility] (procedure) [code = 164722604] Future Scheduled 1952 Screening for malignant [facility] 00:00:00 neoplasm of colon [facility] (procedure) [code = 140533340] Future Scheduled 1950 Sigmoidoscopy [facility]code = [facility] Future Scheduled 1952 CT Colonography (combo) [facility] 00:00:00 [code = CT Colonography [facility] (combo)] Future Scheduled 1952 Screening for malignant [facility] 00:00:00 neoplasm of colon Medical Ce [facility]ter (procedure) [code = 469898970] Future Scheduled 1952 Screening for malignant [facility] 00:00:00 neoplasm of colon Medical Ce [facility] (procedure) [code = 500527580] Future Scheduled 1952 Screening for malignant [facility] 00:00:00 neoplasm of colon Medical Ce [facility]ter (procedure) [code = 456068970] Future Scheduled 1952 Screening for malignant [facility] 00:00:00 neoplasm of colon [facility] (procedure) [code = 119577327] Future Scheduled 1950 Sigmoidoscopy [facility]code = [facility]oscopy] Medical Cent[facility] Future Scheduled 1952 CT Colonography (combo) [facility] 00:00:00 [code = CT Colonography [facility] (combo)] Future Scheduled 1952 Screening for malignant [facility] 00:00:00 neoplasm of colon Medical [facility] (procedure) [code = 116638988] Future Scheduled 1952 Screening for malignant [facility] 00:00:00 neoplasm of colon Medical Ce [facility] (procedure) [code = 742631414] Future Scheduled 1952 Screening for malignant [facility] 00:00:00 neoplasm of colon Medical Ce [facility] (procedure) [code = 171666890] Future Scheduled 1952 Screening for malignant [facility] 00:00:00 neoplasm of colon Medical Ce [facility] (procedure) [code = 207590141] Future Scheduled 1950 Sigmoidoscopy [facility]code = [facility]oscopy] Medical Cent[facility] Future Scheduled 1952 CT Colonography (combo) [facility] 00:00:00 [code = [facility] Future Scheduled 1952 Screening for malignant [facility] 00:00:00 neoplasm of colon Medical [facility] (procedure) [code = 182234557] Future Scheduled 1952 Screening for malignant [facility] 00:00:00 neoplasm of colon Medical Ce [facility] (procedure) [code = 313440425] Future Scheduled 1952 Screening for malignant [facility] 00:00:00 neoplasm of colon Medical Ce [facility] (procedure) [code = 289969102] Future Scheduled 1952 Screening for malignant [facility] 00:00:00 neoplasm of colon Medical Ce [facility] (procedure) [code = 319779624] Future Scheduled 1950 Sigmoidoscopy [facility]code [facility]] Medical Cent[facility] Future Scheduled 1952 CT Colonography (combo) [facility] 00:00:00 [code = CT [facility] ([facility])] Future Scheduled 1952 Screening for malignant [facility] 00:00:00 neoplasm of colon Medical Ce [facility] (procedure) [code = 030172301] Future Scheduled 1952 Screening for malignant [facility] 00:00:00 neoplasm of colon Medical Ce [facility] (procedure) [code = 029338678] Future Scheduled 1952 Screening for malignant [facility] 00:00:00 neoplasm of colon Medical Ce [facility] (procedure) [code = 471177551] Future Scheduled 1952 Screening for malignant [facility] 00:00:00 neoplasm of colon Medical Ce [facility]ter (procedure) [code = 871177734] Future Scheduled 1950 Sigmoidoscopy [facility]code [facility]oscopy] Medical Cente r Future Scheduled 1952 CT Colonography (combo) [facility] 00:00:00 [code = CT [facility] ([facility])] Future Scheduled 1952 Screening for malignant [facility] 00:00:00 neoplasm of colon Medical Ce [facility] (procedure) [code = 101589741] Future Scheduled 1952 Screening for malignant [facility] 00:00:00 neoplasm of colon Medical Ce [facility]ter (procedure) [code = 765759093] Future Scheduled [address] Screening for malignant [facility] 00:00:00 neoplasm of colon Medical Ce [facility] (procedure) [code = 789801491] Future Scheduled 1952 Screening for malignant [facility] 00:00:00 neoplasm of colon Medical Ce [facility] (procedure) [code = 476478622] Future Scheduled 1950 Sigmoidoscopy [facility]code [facility]oscopy] Medical Cente r Future Scheduled 1952 CT Colonography (combo) [facility] 00:00:00 [code = CT Colonography [facility] (combo)] Future Scheduled 1952 Screening for malignant [facility] 00:00:00 neoplasm of colon Medical Ce nter (procedure) [code = 692826040] Future Scheduled 1952 Screening for malignant [facility] 00:00:00 neoplasm of colon Medical Ce [facility]ter (procedure) [code = 889695673] Future Scheduled 1952 Screening for malignant [facility] 00:00:00 neoplasm of colon Medical Ce [facility]ter (procedure) [code = 562092593] Future Scheduled [address] Screening for malignant [facility] 00:00:00 neoplasm of colon Medical Ce [facility]ter (procedure) [code = 514481481] Future Scheduled 1950 Sigmoidoscopy [code [facility]oscopy] Medical Cente r Future Scheduled 1952 CT Colonography (combo) [facility] 00:00:00 [code = CT Colonography [facility] (combo)] Future Scheduled 1952 Screening for malignant [facility] 00:00:00 neoplasm of colon Medical Ce [facility]ter (procedure) [code = 205278889] Future Scheduled 1952 Screening for malignant [facility] 00:00:00 neoplasm of colon Medical Ce nter (procedure) [code = 880049549] Future Scheduled 1952 Screening for malignant [facility] 00:00:00 neoplasm of colon Medical Ce [facility]ter (procedure) [code = 299546011] Future Scheduled 1952 Screening for malignant [facility] 00:00:00 neoplasm of colon Medical Ce [facility]ter (procedure) [code = 338288896] Future Scheduled 1950 Sigmoidoscopy [facility]] Medical Cente r Encounters Start End Encounter Admission Attending Care Care Encounter Source Date/Time Date/Time Type Type Clinicians Facility Department ID 2022-11-27 2022-11-27 Outpatient R RADIOLOGY [facility] [id number] 09:20:30 23:59:00 ity of [facility] 2022-11-27 2022-11-27 Hospital Radiology [facility] [id number] [facility] 09:20:30 23:59:00 Encounter HEALTH [id number] ity of [place] [id number] Gaviota COYNE [id number] [place] [id number] [address] ([facility]) 2022-10-28 2022-10-28 [id number] [facility] 17:30:00 17:30:00 Paolo 92 [facility] 2022-10-26 2022-10-26 [id number] 11:00:00 11:00:00 Paolo 21 [facility] 2022-10-23 2022-10-23 Outpatient Surya [facility] [id number] [facility] 13:44:00 13:44:00 Paolo 38 [facility] 2022-10-23 2022-10-23 Outpatient IMELDA Surya [facility] [id number] [facility] 13:14:00 13:14:00 Paolo 97 [facility] 2020-05-25 2020-05-25 Outpatient [facility]A [facility] [id number] [facility] 00:00:00 00:00:00 DEMETRIUS 2020-05-25 2020-05-25 Outpatient CHAYA [facility]ESS [facility] [id number] [facility] 00:00:00 00:00:00 DEMETRIUS 2020-03-02 2020-03-02 [facility] [id number] [facility] 00:00:00 00:00:00 Results Test Description Test Time Test Comments Results Result [facility] e Comments - CT HEAD/BRAIN 2022-10-28 W/O CONT 00:00:00 [facility] MCGRATHName: JENNIFER BELLA : 1950 Sex: M Name: JENNIFER BELLA [facility] [place] : 1950 Age/S: 72 / M [address] [place] [address] Bl Unit #: [id number] Loc: Jose Luis [place] [address] Phys: Paolo Ly DO Acct: [id number] Dis Date: Status: REG CLI PHONE #: [phone] Exam Date: 10/28/20221800 FAX #: [phone] Reason: FALL EXAMS: CPT CODE: [id number] CT HEAD/BRAIN W/O CONT 78085 PROCEDURE INFORMATION: Exam: CT Head Without Contrast [...] 1 Signed Report (CONTINUED) Name: JENNIFER BELLA [facility] : 1950 Age/S: 72 / M [address] [place] [address] Unit #: [id number] Loc: [place] [address] Phys: Paolo Ly DO Acct: [id number] Dis Date: Status: REG CLI PHONE #: [phone] Exam Date: 10/28/20221800 FAX #: [phone] Reason: FALL EXAMS: CPT CODE: [id number] CT HEAD/BRAIN W/O CONT 98190 (Continued) inferior cerebellar hemisphere which was present previously as well as 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 at 1849 Reported and signed by: Marcello Jaramillo M.D. CC: Paolo Ly DO Technologist:RT Felicitas(Siobhan)(CT) CTDI: DLP: Trnscb Date/Time: 10/28/2022 (184) [email or web address] Orig Print D/T: S: 10/28/2022 (185) PAGE 2 Signed Report - CT HEAD/BRAIN 2022-10-23 W/O CONT 00:00:00 [facility] COYNEName: JENNIFER BELLA : 1950 Sex: M Name: JENNIFER BELLA [facility] [place] Coy[place] : 1950 Age/S: 72 / M [address] [place] [address] Bl Unit #: [id number] Loc: [place] [address] Phys: Paolo Ly DO Acct: [id number] Dis Date: Status: REG CLI PHONE #: [phone] Exam Date: 10/23/2022 1354 FAX #: [phone] Reason: INCREASED TONE CONFUSION. Report Has Been Amended EXAMS: CPT CODE: [id number] CT HEAD/BRAIN W/O CONT 49245 Addendum - 10/23/2022 SIGNED 10/23/2022 ADDENDUM: [id number] CT/CTHDBRWO Findings discussed with Dr. Ly at 3:05 p.m. central standard time at 1506 Reported and signed by: Salvador Ballesteros M.D. Addendum - 10/23/2022 SIGNED 10/23/2022 ADDENDUM: [id number] CT/CTHDBRWO Attempt was made to contact personnel [...] 1 Signed Report (CONTINUED) Name: JENNIFER BELLA [facility] [place] : 1950 Age/S: 72 / M [address] [place] [address] Unit #: [id number] Loc: [place] [address] Phys: Paolo Ly DO Acct: [id number] Dis Date: Status: REG CLI PHONE #: [phone] Exam Date: 10/23/2022 [facility] FAX #: [phone] Reason: INCREASED TONE CONFUSION. Report Has Been Amended EXAMS: CPT CODE: [id number] CT HEAD/BRAIN W/O CONT 31865 (Continued) Brain: Hypoattenuation consistent with age-indeterminate infarction [...] Ballesteros M.D. CC: Paolo Ly DO Technologist:Didi Weber, RT(R)(CT) CTDI: DLP: Trnscb Date/Time: 10/23/2022 (141) [email or web address] Orig Print D/T: S: 10/23/2022 (7856) PAGE 2 Signed Report MR, ABDOMEN, 2020-05-25 Unlisted WITHOUT IV 16:51:00 Reason for CONTRAST Exam [facility] Yes and Enter [facility]ENTER[facility]: Reason [...] MDReport Verified Date/Time: 05/25/2020 16:51:08 Reading Location: [address] Transitional Reading Room , CHEST, 2 2020-05-25 Reason for VIEWS 10:10:00 Exam:->[facility] 1950 Sex: M FINAL [...] Verified Date/Time: 05/25/2020 10:10:41 Reading Location: [facility] Reading Room [address] [place] [address] UE EXAM 2017-10-16 Surgical Pathology Report 09:38:00 Case: [id number] Authorizing Provider: Demetrius Larkin MD Collected: 10/09/2017 1652 Ordering Location: [facility] PERI[facility] Received: 10/10/2017 0810 SERVICES Pathologist: [...] SYNOPTIC REPORT Signing Pathologist Direct Phone Line: [phone] y signed by Joyce Sauceda MD on 10/16/2017 at 9:38 AMThe relative revisions of traditional Dami nuclear grading in predicting 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 The assessment of nucleolar prominence as a single parameter is noted to correlate better with outcome than other nuclear parameters (size, shape) to assign a [place] grade. ("Urologic Surgical Pathology," Leidy and Cristian, third edition, 2014). Nuclear grade assigned in Synoptic portion of this report (tw, can include).This patient's previous biopsy from [facility], from 03/02/2017 ([id number]) shows a core biopsy with features similar [...] Additional Pathological Findings: Cyst(s): Simple cortical cyst 15648 X 2, 85802, 17508 x6Left renal massA. Retroperitoneal lymph node. B. [...] positive; AE1/AE3-positive; RICHARD and CK 7-focally positive; MU71-bcprbclw CD10 equivocal, possibly focally positiveThe immunohistochemistry test was developed and its performance characteristics determined by [facility], Pathology Laboratory. It has not been [...] NOT 1092) ACCURATE CRE ATININE CLEARANCE IN DC EDICTING GLOMERULAR FILT RATION RATE. ESTIMATED GFR IS NOT APPLICABLE FOR DIALYSIS PATIENTS. CBC W/PLT COUNT & AUTO [id number] 12:44:00 Test Item Value Reference Range Interpretation [...] (BEAKER) (test code = 2801) BASIC METABOLIC [id number] 15:02:00 Test Item Value Reference Range Interpretation [...] PATIEN TS. Please draw at 2:00pmBASI METABOLIC [id number] 06:14:00 Test Item Value Reference Range Interpretation [...] S NOT APPLICABLE FOR DIALYSIS PATIEN TS. [id number] 06:03:00 Test Item Value Reference Range Interpretation Comments PHOSPHORUS (BEAKER) (test code = 2.7 mg/dL 2.3-4.7 604) [id number] 06:03:00 Test Item Value Reference Range Interpretation Comments MAGNESIUM (BEAKER) (test code = 2.1 mg/dL 1.6-2.6 627) CBC W/PLT COUNT & AUTO [id number] 05:16:00 Test Item Value Reference Range Interpretation [...] 20-55 (test code = 2590) BASIC METABOLIC [id number] 05:41:00 Test Item Value Reference Range Interpretation [...] S NOT APPLICABLE FOR DIALYSIS PATIEN TS. [id number] 05:36:00 Test Item Value Reference Range Interpretation Comments PHOSPHORUS (BEAKER) (test code = 2.8 mg/dL 2.3-4.7 604) [id number] 05:36:00 Test Item Value Reference Range Interpretation Comments MAGNESIUM (BEAKER) (test code = 2.2 mg/dL 1.6-2.6 627) PTH, [id number] 05:33:00 Test Item Value Reference Range Interpretation Comments PARATHYROID HORMONE INTACT 212.3 pg/mL 8.5-72.5 H (BEAKER) (test code = 577) CBC W/PLT COUNT & AUTO [id number] 05:02:00 Test Item Value Reference Range Interpretation [...] 0-1 PERCENT (BEAKER) (test code = 2801) [id number] 06:36:00 Test Item Value Reference Range Interpretation Comments PHOSPHORUS (BEAKER) (test code = 2.4 mg/dL 2.3-4.7 604) [id number] 06:36:00 Test Item Value Reference Range Interpretation Comments MAGNESIUM (BEAKER) (test code = 1.8 mg/dL 1.6-2.6 627) BASIC METABOLIC [id number] 06:36:00 Test Item Value Reference Range Interpretation [...] PATIEN TS. CBC W/PLT COUNT & AUTO [id number] 05:59:00 Test Item Value Reference Range Interpretation [...] 0-1 PERCENT (BEAKER) (test code = 2801) [id number] 19:38:00 Test Item Value Reference Range Interpretation Comments PHOSPHORUS (BEAKER) (test code = 2.8 mg/dL 2.3-4.7 604) [id number] 19:38:00 Test Item Value Reference Range Interpretation Comments MAGNESIUM (BEAKER) (test code = 1.7 mg/dL 1.6-2.6 627) BASIC METABOLIC [id number] 19:35:00 Test Item Value Reference Range Interpretation [...] APPLICABLE FOR DIALYSIS PATIEN TS. HEMOGLOBIN AND [id number] 19:07:00 Test Item Value Reference Range Interpretation Comments HEMOGLOBIN (BEAKER) (test code = 13.7 GM/DL 13.7-17.5 410) HEMATOCRIT (BEAKER) (test code = 40.5 % 40.1-51.0 411) URINE [id number] 13:12:00 Test Item Value Reference Range Interpretation Comments CULTURE (BEAKER) (test code = 1095) No growth BASIC METABOLIC [id number] 17:19:00 Test Item Value Reference Range Interpretation [...] APPLICABLE FOR DIALYSIS PATIEN TS. URINALYSIS W/ [id number] 17:15:00 Test Item Value Reference Range Interpretation [...] 1574) Rare SOURCE(BEAKER) (test code = 2795) [id number] 17:07:00 Test Item Value Reference Range Interpretation Comments PARTIAL THROMBOPLASTIN TIME 28.1 seconds 22.5-36.0 (BEAKER) (test code = 760) PROTHROMBIN TIME/[id number] 17:06:00 Test Item Value Reference Range Interpretation Comments PROTIME (BEAKER) (test code = 13.6 seconds 11.7-14.7 759) INR (BEAKER) (test code = 370) 1.0 <=5.9 RECOMMENDED COUMADIN/WARFARIN INR THERAPY RANGESSTANDARD DOSE: 2.0 - 3.0 Includes: PROPHYLAXIS for venous thrombosis, systemic embolization; TREATMENT for venous thrombosis and/or pulmonary embolus.HIGH RISK: Target INR is 2.5-3.5 for patients with mechanical heart valves.CBC W/PLT COUNT & AUTO [id number] 16:53:00 Test Item Value Reference Range Interpretation [...] PERCENT (BEAKER) (test code = 2801) TISSUE [id number] 11:47:00Surgical Pathology Report Case: [id number] Authorizing Provider: Farzad Jackson Collected: 03/02/2017 Asad Vicente MD Ordering Location: [facility] Diagnostic Imaging Received: 03/02/2017 1140 [...] Intradepartmental consultation: Dr. Koko Whitney, Dr. Umu Manzanares/ce98892, 70070, 65487 x2Left kidney biopsy massKidn massThe specimen is [...] developed and its performance characteristics determined by [facility], Pathology Laboratory. It has notbeen cleared [...] qualified to perform high complexity clinical laboratory testing.[id number] 08:19:00 Test Item Value Reference Range Interpretation [...] mechanical heart valves.CBC W/PLT COUNT & AUTO [id number] 08:14:00 Test Item Value Reference Range Interpretation [...] Note Provider Source 2017-10-10 00:13:00-00:00 DEMETRIUS LARKIN [facility] REPORT OF PROCEDURE JENNIFER BELLA FACILITY: [facility] BILLING #: [id number] ROOM: [facility] [id number] MR #: [id number] : 1950 DATE OF PROCEDURE: 10/09/2017 SURGEON: Demetrius Larkin MD TIP INSERTER: Marizol Gonsales MD, PhD PREOPERATIVE DIAGNOSIS: Left renal mass. POSTOPERATIVE DIAGNOSIS: Left renal mass. OPERATIVE PROCEDURE: Left lapro-endoscopic singl e-site radical nephrectomy with retroperitoneal lymph node dissection. ANESTHESIA: General. BLOOD LOSS: 50 mL. COMPLICATIONS: None. SPECIMENS 1. Left kidney and hilar lymph nodes. 2. Retroperitoneal lymph node dissection. FINDING: Single right renal artery and 2 right r enal veins. DRAIN: A 16-[place] Hart catheter. OPERATIVE PROCEDURE: Mr. Bella is [...] entered digitally. We then placed the applied [employer] dical single-site device at this location with [...] of the procedure. Jeny P A Job#: [id number] Doc#: [id number] FN: [id number] cc: Demetrius Larkin MD
[2023-03-09] MEDS ORDERED: PROMETHAZINE 25 MG TABLET ONE ×2 (04:38→04:46)
[2023-03-09] MEDS ORDERED: CODEINE 30MG/APAP 300MG TAB ONE (04:39)
[2023-03-09] MEDS ORDERED: predniSONE 20 MG TAB ONE (04:39)
[2023-03-09] MEDS ORDERED: guaiFENesin 100 MG/5 ML UCUP ONE (04:40)
[2023-03-09] MEDS ORDERED: ALBUTEROL 2.5 MG/3 ML NEB SOL ONE (04:40)
[2023-03-09] MEDS ORDERED: IPRATROPIUM BROM 0.5MG/2.5ML ONE (04:40)
[2023-03-09 04:53] LABS: Absolute Lymphocytes (CBC) 1.3 K/uL (0.7-4.9); Hematocrit 44.2 % (39.6-49.0); Lymphocytes % 19.8 % (15.3-44.8); MCV 89.4 fL (80-100); Platelets 225 thou/uL (152-406); RBC Red Blood Cell Count 4.95 M/uL (4.33-5.43)
[2023-03-09 04:58] LABS: SARS-CoV-2 Antigen Rapid Res Negative (Negative)
[2023-03-09 05:12] LABS: Albumin 3.8 g/dL (3.4-5.0); Bilirubin Direct 0.2 mg/dL (0-0.2); Bilirubin Indirect, Calculated 0.2 mg/dL (0.2-0.8); Bilirubin Total 0.4 mg/dL (0.2-1.0); Potassium 3.7 mEq/L (3.5-5.1); Protein, Total 7.6 g/dL (6.4-8.2)
--- NOTE | 2023-03-09 06:52 | ER ---
Nurse's Notes [facility] Name: Aravind Low Age: 72 yrs Sex: Male : 1950 Arrival Date: 03/09/2023 Time: 03:50 Bed 4 Private MD: Diagnosis: Nasal congestion;Dementia in other diseases classified elsewhere without behavioral disturbance;Upper respiratory congestion, Alzheimer's type dementia, acute viral upper respiratory illness Presentation: 03/09 04:01 Chief complaint: EMS states: pt has been feeing sick for 3 days and family wanted pt to as6 get checked out. Coronavirus screen: At this time, the client does not indicate any symptoms associated with coronavirus-19. Ebola Screen: No symptoms or risks identified at this time. Initial Sepsis Screen: Does the patient meet any 2 criteria? No. Patient's initial sepsis screen is negative. Does the patient have a suspected source of infection? No. Patient's initial sepsis screen is negative. Risk Assessment: Do you want to hurt yourself or someone else? Patient reports no desire to harm self or others. Onset of symptoms was March 06, 2023. 04:01 Acuity: ANTONIO 3 as6 04:01 Method Of Arrival: EMS: [facility] as6 Historical: - Allergies: 04:01 No Known Allergies; as6 - PMHx: 04:01 CVA; Dementia; ESRD; Gout; Hypertension; kidney cancer; as6 - PSHx: 04:01 kidney removal; as6 - Immunization history:: Adult Immunizations up to date. - Social history:: Smoking status: Patient denies any tobacco usage or history of. Screenin:25 [facility] ED Fall Risk Assessment (Adult) Score/Fall Risk Level 0 - 2 = Low Risk. Abuse as6 screen: Denies threats or abuse. Denies injuries from another. Nutritional screening: No deficits noted. Tuberculosis screening: No symptoms or risk factors identified. Assessment: 04:05 General: Appears in no apparent distress. slender, Behavior is calm, cooperative, as6 quiet. General: Reports feeling ill for 2-3 days. Pain: Denies pain. Neuro: Level of Consciousness is awake, alert, obeys commands, Oriented to person, place, situation. Respiratory: Respiratory effort is even, unlabored, Respiratory pattern is regular, symmetrical. Respiratory: Breath sounds with crackles bilaterally. 06:42 Reassessment: No changes from previously documented assessment. Patient and/or family vc1 updated on plan of care and expected duration. Pain level reassessed. 07:00 General: discharge pending transportation to home . as6 Vital Signs: 04:01 BP 187 / 125; Pulse 106; Resp 18 S; Temp 98.4(O); Pulse Ox 99% on R/A; Weight 48.08 kg as6 (M); Pain 0/10; 05:00 BP 209 / 122; Pulse 87; Resp 18 S; Pulse Ox 100% on R/A; as6 06:28 BP 169 / 105; Pulse 60; Resp 18 S; Pulse Ox 100% on R/A; as6 09:00 BP 178 / 98; Pulse 79; Resp 16; Pulse Ox 98% on R/A; iw 04:01 Pain Scale: Adult as6 ED Course: 03:56 Patient arrived in ED. wm 03:57 Joaquin Lord MD is Attending Physician. sp4 04:00 Jone Guan RN is Primary Nurse. as6 04:00 Arm band placed on left wrist. as6 04:02 Triage completed. as6 04:16 Chest Single View XRAY In Process Unspecified. EDMS 04:25 Placed in gown. Bed in low position. Call light in reach. Side rails up X2. Cleaned of as6 incontinence. 04:25 Inserted saline lock: 20 gauge in right forearm, using aseptic technique. Blood as6 collected. 09:10 No provider procedures requiring assistance completed. IV discontinued, intact, iw bleeding controlled, No redness/swelling at site. Pressure dressing applied. Administered Medications: 04:46 Drug: guaiFENesin PO Liquid 15 ml Route: PO; as6 07:00 Follow up: Response: No adverse reaction iw 04:46 Drug: Acetaminophen-Codeine PO (300 mg-30 mg) 2 tabs Route: PO; as6 07:00 Follow up: Response: No adverse reaction iw 04:46 Drug: Promethazine PO 25 mg Route: PO; as6 07:16 Follow up: Response: No adverse reaction iw 04:46 Drug: DuoNeb Nebulize (2.5 mg - 0.5 mg) 3 ml Route: Nebulizer; as6 07:00 Follow up: Response: No adverse reaction iw 04:46 Drug: predniSONE PO 60 mg Route: PO; as6 07:10 Follow up: Response: No adverse reaction iw Medication: 04:26 VIS not applicable for this client. as6 Outcome: 06:51 Discharge ordered by . sp4 09:10 Discharged to home via wheelchair, with family. iw 09:10 Condition: good 09:10 Discharge instructions given to family, Instructed on discharge instructions, follow up and referral plans. medication usage, Demonstrated understanding of instructions, follow-up care, medications. 09:11 Patient left the ED. iw Signatures: Dispatcher [employer] EDCoral Gao RN RN iw Lucila Artis Ashby, RN RN as6 Hanane Freitas RN RN vc1 Joaquin Lord MD MD sp4
--- NOTE | 2023-03-09 06:52 | EDPHYS ---
Physician Documentation [facility] Name: Aravind Low Age: 72 yrs Sex: Male : 1950 Arrival Date: 03/09/2023 Time: 03:50 Bed 4 Private MD: ED Physician Joaquin Lord HPI: 03/09 03:57 This 72 yrs old Black Male presents to ER via Unassigned with complaints of Shortness sp4 Of Breath. 07:05 72-year-old black male presents with complaint of upper respiratory congestion and sp4 shortness of breath. Patient states his symptoms started 3 days ago, patient has history of CVA, dementia, physical deconditioning, end-stage renal disease, gout, hypertension, kidney cancer, multiple other visits to the emergency department for multiple prior complaints. Historical: - Allergies: 04:01 No Known Allergies; as6 - PMHx: 04:01 CVA; Dementia; ESRD; Gout; Hypertension; kidney cancer; as6 - PSHx: 04:01 kidney removal; as6 - Immunization history:: Adult Immunizations up to date. - Social history:: Smoking status: Patient denies any tobacco usage or history of. ROS: 07:05 Constitutional: Negative for fever, chills, and weight loss, Respiratory: Negative for sp4 cough, wheezing, and pleuritic chest pain, positive for respiratory congestion and shortness of breath 07:05 All other systems are negative. Exam: 07:05 Constitutional: This is a well developed, well nourished patient who is awake, alert, sp4 and in no acute distress. Positive for ill-appearing chronic ill-appearing thin elderly man. Head/Face: Normocephalic, atraumatic. Eyes: Pupils equal round and reactive to light, extra-ocular motions intact. Lids and lashes normal. Conjunctiva and sclera are not injected. Cornea within normal limits. Periorbital areas with no swelling, redness, or edema. ENT: Nares patent. No nasal discharge, no septal abnormalities noted. Tympanic membranes are normal and external auditory canals are clear. Oropharynx with no redness, swelling, or masses, exudates, or evidence of obstruction, uvula midline. Mucous membranes moist. Neck: Trachea midline, no thyromegaly or masses palpated, and no cervical lymphadenopathy. Supple, full range of motion without nuchal rigidity, or vertebral point tenderness. Chest/axilla: Normal chest wall appearance and motion. Nontender with no deformity. No lesions are appreciated. Cardiovascular: Regular rate and rhythm with a normal S1 and S2. No gallops, murmurs, or rubs. Normal PMI, no JVD. No pulse deficits. Respiratory: Lungs have equal breath sounds bilaterally, clear to auscultation and percussion. No rales, rhonchi or wheezes noted. No increased work of breathing, no retractions or nasal flaring. Positive upper respiratory congestion Abdomen/GI: Soft, non-tender, with normal bowel sounds. No distension or tympany. No guarding or rebound. No evidence of tenderness throughout. Back: No spinal tenderness. No costovertebral tenderness. Skin: Warm, dry with normal turgor. Normal color with no rashes, no lesions, and no evidence of cellulitis. MS/ Extremity: Pulses equal, no cyanosis. Neurovascular intact. Full, normal range of motion. Neuro: Awake and alert, GCS 15, oriented to person, place, Cranial nerves II-XII grossly intact. Motor strength 5/5 in all extremities. Sensory grossly intact. Psych: Awake, alert, with orientation to person, Behavior, mood, and affect are within normal limits Vital Signs: 04:01 BP 187 / 125; Pulse 106; Resp 18 S; Temp 98.4(O); Pulse Ox 99% on R/A; Weight 48.08 kg as6 (M); Pain 0/10; 05:00 BP 209 / 122; Pulse 87; Resp 18 S; Pulse Ox 100% on R/A; as6 06:28 BP 169 / 105; Pulse 60; Resp 18 S; Pulse Ox 100% on R/A; as6 09:00 BP 178 / 98; Pulse 79; Resp 16; Pulse Ox 98% on R/A; iw 04:01 Pain Scale: Adult as6 MDM: 04:08 Patient medically screened. sp4 07:05 Differential Diagnosis altered mental status, sepsis, flu. Data reviewed: vital signs, sp4 nurses notes, EMS record, old medical records, lab test result(s), radiologic studies, plain films. Consideration of Admission/Observation Escalation of care including admission/observation considered. ED course: Chest x-ray revealed no acute findings in the chest, stent overlying upper right chest,. 03/09 03:58 Order name: SARS RAPID; Complete Time: 06:47 sp4 03/09 03:58 Order name: Influenza Screen (a \T\ B); Complete Time: 06:47 sp4 03/09 03:58 Order name: Basic Metabolic Panel; Complete Time: 06:47 sp4 03/09 03:58 Order name: CBC with Diff; Complete Time: 06:47 sp4 03/09 03:58 Order name: LFT's; Complete Time: 06:47 sp4 03/09 03:58 Order name: Chest Single View XRAY sp4 03/09 03:58 Order name: IV Saline Lock; Complete Time: 04:26 sp4 03/09 03:58 Order name: Labs collected and sent; Complete Time: 04:26 sp4 03/09 03:58 Order name: O2 Per Protocol; Complete Time: 04:03 sp4 03/09 03:58 Order name: O2 Sat Monitoring; Complete Time: 04:03 sp4 Administered Medications: 04:46 Drug: guaiFENesin PO Liquid 15 ml Route: PO; as6 07:00 Follow up: Response: No adverse reaction iw 04:46 Drug: Acetaminophen-Codeine PO (300 mg-30 mg) 2 tabs Route: PO; as6 07:00 Follow up: Response: No adverse reaction iw 04:46 Drug: Promethazine PO 25 mg Route: PO; as6 07:16 Follow up: Response: No adverse reaction iw 04:46 Drug: DuoNeb Nebulize (2.5 mg - 0.5 mg) 3 ml Route: Nebulizer; as6 07:00 Follow up: Response: No adverse reaction iw 04:46 Drug: predniSONE PO 60 mg Route: PO; as6 07:10 Follow up: Response: No adverse reaction iw Disposition Summary: 03/09/23 06:51 Discharge Ordered Location: Home sp4 Problem: new sp4 Symptoms: have improved sp4 Condition: Stable sp4 Diagnosis - Nasal congestion sp4 - Dementia in other diseases classified elsewhere without behavioral disturbance sp4 - Upper respiratory congestion, Alzheimer's type dementia, acute viral upper sp4 respiratory illness Followup: sp4 - With: Private Physician - When: 7 - 10 days - Reason: Recheck today's complaints Discharge Instructions: - Discharge Summary Sheet sp4 - Upper Respiratory Infection, Adult, [id number] sp4 Forms: - Patient Portal Instructions sp4 Prescriptions: - guaifenesin 200 mg Oral tablet - take 1 tablet by ORAL route every 6 hours PRN congestion; 30 tablet; Refills: sp4 0, Product Selection Permitted Signatures: Dispatcher [employer] Jone Ghosh RN RN as6 Joaquin Lord MD MD sp4 Coral Jameson RN iw
[2023-03-09 09:18] VITALS: TEMP 98.4
[2023-03-09 09:21] VITALS: BP 178/98; O2SAT 98
--- NOTE | 2023-03-09 19:08 | RAD REPORT ---
EXAM DESCRIPTION: XR Chest, 1 View CLINICAL HISTORY: The patient is 72 years old and is Male; CONGESTION TECHNIQUE: Frontal view of the chest. COMPARISON: No relevant prior studies available. FINDINGS: Lungs: Unremarkable. No consolidation. Pleural space: Unremarkable. No pneumothorax. Heart: Unremarkable. Mediastinum: Unremarkable. Bones/joints: Unremarkable. Vasculature: Stent overlying the upper right chest. IMPRESSION: No acute findings in the chest. Electronically signed by: Neftali Fernandez MD 03/09/2023 4:27 AM CDT Due to temporary technical issues with the PACS/Fluency reporting system, reports are being signed by the in house radiologists without review as a courtesy to insure prompt reporting. The interpreting radiologist is fully responsible for the content of the report.
== END 2023-03-09 09:11 | disposition home or self-care (01) ==
LOC: ER 03:50
DX: J06.9 Acute upper respiratory infection, unspecified (principal); G30.9 Alzheimer's disease, unspecified; F02.80 Dementia in other diseases classified elsewhere, unspecified severity, without behavioral disturbance, psychotic disturbance, mood disturbance, and anxiety; I12.0 Hypertensive chronic kidney disease with stage 5 chronic kidney disease or end stage renal disease; N18.6 End stage renal disease; Z86.73 Personal history of transient ischemic attack (TIA), and cerebral infarction without residual deficits; Z20.822 Contact with and (suspected) exposure to COVID-19
CPT/HCPCS: 85025; 80048; 36415; 80076; 87804 ×2; 71045; 94640; 99284; 87811; Q0169; J7512; J7613; J7644

== ENCOUNTER 2023-03-20 03:30 | Observation (INO) | payer OTHER ==
--- OUTSIDE RECORDS SUMMARY | 2023-03-20 03:36 | XMS REPORT | Continuity of Care Document ---
:1950 Author Organization [facility] t Address [address] [place] [address] Care Team Providers Name Role Phone SHARPLESS [...] Expiration Date [place] guzmán MEDICARE PART A [id number] 2017 \\T\\ B 00:00:00 [place] PPO [id number] MEDICARE A B [id number] 2017 00:00:00 Problems Condition Condition Condition Status Onset Resolution Last Treating Co mments Source Name Details Category Date Date Treatment Clinician Date Pre-op Pre-op Disease Active [facility] 00 [place] Renal Renal Disease Active [facility] mass, left mass, left 3-27 Sharmaine kes 00:00: Medical 00 [place] Neoplasm Neoplasm Disease Active [facility] [...] Active Univers ALLERGIE Class ity of S [facility] NO KNOWN Allergy Active [facility] ALLERGJO [facility] Social History Social Habit Start Date Stop Date Quantity Comments Source History of tobacco Cigarette Smoker [facility] use [facility] Exposure to 2022-11-17 2022-11-27 Not sure University of SARS-CoV-2 (event) 00:00:00 09:20:00 [facility] Alcohol intake 2017-10-10 2017-10-10 Current drinker [facility] S t [facility] 00:00:00 00:00:00 of [facility] (finding) Tobacco use and 2017-10-01 2017-10-01 Smokeless [facility] Sharmaine jacobss exposure 00:00:00 00:00:00 tobacco non-user [facility] Cigarettes smoked 2017-10-01 2017-10-[address] [facility] [address] sarbjit current (pack per 00:00:00 00:00:00 Medical Center day) - Reported Sex Assigned At [birth year] [facility] 00:00:00 [facility]:00 [facility] Smoking Status Start Date Stop Date Source Tobacco smoking consumption Univ [facility] Smokes tobacco daily 2017-10-01 00:00:00 [facility] Medications Ordered Filled Start Stop Current Ordering Indication Dosage Frequency Signature Comments Components Source Medication Medication Date Date Medication? Clinician (SIG) Name Name LORazepam 2022- No [id number] 1mg 1 mg, U nivers (ATIVAN) 11-27 05-15 Oral, ity of tablet 1 mg 17:30: 15:[place] [place] 11/27/22 at 1230, Routine LORazepam 2022- No [id number] 1mg 1 mg, U nivers (ATIVAN) 11-27 05-15 Oral, ity of tablet 1 mg 17:30: 15:15 [place] dose, On [facility] 11/27/22 at 1230, Routine furosemide 2018-0 Yes 40mg Take [address] (LASIX) 40 4-01 by mouth [facility] MG tablet 03:27: every Medical 05 other day. Center amLODIPine 2018-0 Yes 10mg QD Take [address] (NORVASC) 4-01 by mouth [facility] 10 MG 03:27: daily. Medical tablet 05 Center cloNIDine 2018-0 Yes .3mg Q.[id number] Take 0.[address] [facility] [address] HCl 4-01 [id number] mg by [facility] (CATAPRES) 03:27: 3D mouth 3 Medi jennifer 0.3 MG 05 (three) Center tablet times daily. cloNIDine 2018-0 Yes .3mg Q.[id number] Take 0.[address] [facility] [address] HCl 4-01 [id number] mg by [facility] (CATAPRES) 03:27: 3D mouth 3 Medi jennifer 0.3 MG 05 (three) Center tablet times daily. furosemide 2018-0 Yes 40mg Take [address] (LASIX) 40 4-01 by mouth [facility] MG tablet 03:27: every Medical 05 other day. [place] amLODIPine 2018-0 Yes 10mg QD Take [address] (NORVASC) 4-01 by mouth [facility] 10 MG 03:27: daily. Medical tablet 05 [place] furosemide 2018-0 Yes 40mg Take [address] (LASIX) 40 4-01 by mouth [facility] MG tablet 03:27: every Medical 05 other day. [place] amLODIPine 2018-0 Yes 10mg QD Take [address] (NORVASC) 4-01 by mouth [facility] 10 MG 03:27: daily. Medical tablet 05 [place] cloNIDine 2018-0 Yes .3mg Q.[id number] Take 0.[address] [facility] [address] HCl 4-01 [id number] mg by [facility] (CATAPRES) 03:27: 3D mouth 3 Medi jennifer 0.3 MG 05 (three) Center tablet times daily. furosemide 2018-0 Yes 40mg Take [address] (LASIX) 40 4-01 by mouth [facility] MG tablet 03:27: every Medical 05 other day. [place] amLODIPine 2018-0 Yes 10mg QD Take [address] (NORVASC) 4-01 by mouth [facility] 10 MG 03:27: daily. Medical tablet 05 Center cloNIDine 2018-0 Yes .3mg Q.[id number] Take 0.[address] [facility] [address] HCl 4-01 [id number] mg by [facility] (CATAPRES) 03:27: 3D mouth 3 Medi jennifer 0.3 MG 05 (three) Center tablet times daily. furosemide 2018-0 Yes 40mg Take [address] (LASIX) 40 4-01 by mouth [facility] MG tablet 03:27: every Medical 05 other day. [place] amLODIPine 2018-0 Yes 10mg QD Take [address] (NORVASC) 4-01 by mouth [facility] 10 MG 03:27: daily. Medical tablet 05 [place] cloNIDine 2018-0 Yes .3mg Q.[id number] Take 0.[address] [facility] [address] HCl 4-01 [id number] mg by [facility] (CATAPRES) 03:27: 3D mouth 3 Medi jennifer 0.3 MG 05 (three) Center tablet times daily. furosemide 2018-0 Yes 40mg Take [address] (LASIX) 40 4-01 by mouth [facility] MG tablet 03:27: every Medical 05 other day. [place] amLODIPine 2018-0 Yes 10mg QD Take [address] (NORVASC) 4-01 by mouth [facility] 10 MG 03:27: daily. Medical tablet 05 [place] cloNIDine 2018-0 Yes .3mg Q.[id number] Take 0.[address] [facility] [address] HCl 4-01 [id number] mg by [facility] (CATAPRES) 03:27: 3D mouth 3 Medi jennifer 0.3 MG 05 (three) Center tablet times daily. furosemide 2018-0 Yes 40mg Take [address] (LASIX) 40 4-01 by mouth [facility] MG tablet 03:27: every Medical 05 other day. [place] amLODIPine 2018-0 Yes 10mg QD Take [address] (NORVASC) 4-01 by mouth [facility] 10 MG 03:27: daily. Medical tablet 05 [place] cloNIDine 2018-0 Yes .3mg Q.[id number] Take 0.[address] [facility] [address] HCl 4-01 [id number] mg by [facility] (CATAPRES) 03:27: 3D mouth 3 Medi jennifer 0.3 MG 05 (three) Center tablet times daily. furosemide 2018-0 Yes 40mg Take [address] (LASIX) 40 4-01 by mouth [facility] MG tablet 03:27: every Medical 05 other day. [place] amLODIPine 2018-0 Yes 10mg QD Take [address] (NORVASC) 4-01 by mouth [facility] 10 MG 03:27: daily. Medical tablet 05 [place] cloNIDine 2018-0 Yes .3mg Q.[id number] Take 0.[address] HCl 4-01 [id number] mg by [facility] (CATAPRES) 03:27: 3D mouth 3 Medi jennifer 0.3 MG 05 (three) Center tablet times daily. furosemide 2018-0 Yes 40mg Take [address] (LASIX) 40 4-01 by mouth [facility] MG tablet 03:27: every Medical 05 other day. [place] amLODIPine 2018-0 Yes 10mg QD Take [address] (NORVASC) 4-01 by mouth [facility] 10 MG 03:27: daily. Medical tablet 05 [place] cloNIDine 2018-0 Yes .3mg Q.[id number] Take 0.[address] HCl 4-01 [id number] mg by [facility] (CATAPRES) 03:27: 3D mouth 3 Medi jennifer 0.3 MG 05 (three) Center tablet times daily. furosemide 2018-0 Yes 40mg Take [address] (LASIX) 40 4-01 by mouth [facility] MG tablet 03:27: every Medical 05 other day. [place] amLODIPine 2018-0 Yes 10mg QD Take [address] (NORVASC) 4-01 by mouth [facility] 10 MG 03:27: daily. Medical tablet 05 [place] cloNIDine 2018-0 Yes .3mg Q.[id number] Take 0.[address] HCl 4-01 [id number] mg by [facility] (CATAPRES) 03:27: 3D mouth 3 Medi jennifer 0.3 MG 05 (three) Center tablet times daily. furosemide 2018-0 Yes 40mg Take [address] (LASIX) 40 4-01 by mouth [facility] MG tablet 03:27: every Medical 05 other day. [place] amLODIPine 2018-0 Yes 10mg QD Take [address] (NORVASC) 4-01 by mouth [facility] 10 MG 03:27: daily. Medical tablet 05 [place] cloNIDine 2018-0 Yes .3mg Q.[id number] Take 0.[address] HCl 4-01 [id number] mg by [facility] (CATAPRES) 03:27: 3D mouth 3 Medi jennifer 0.3 MG 05 (three) Center tablet times daily. furosemide 2018-0 Yes 40mg Take [address] (LASIX) 40 4-01 by mouth [facility] MG tablet 03:27: every Medical 05 other day. [place] amLODIPine 2018-0 Yes 10mg QD Take [address] (NORVASC) 4-01 by mouth [facility] 10 MG 03:27: daily. Medical tablet 05 [place] cloNIDine 2018-0 Yes .3mg Q.[id number] Take 0.[address] HCl 4-01 [id number] mg by [facility] (CATAPRES) 03:27: 3D mouth 3 Medi jennifer 0.3 MG 05 (three) Center tablet times daily. furosemide 2018-0 Yes 40mg Take [address] (LASIX) 40 4-01 by mouth [facility] MG tablet 03:27: every Medical 05 other day. [place] amLODIPine 2018-0 Yes 10mg QD Take [address] (NORVASC) 4-01 by mouth [facility] 10 MG 03:27: daily. Medical tablet 05 [place] cloNIDine 2018-0 Yes .3mg Q.[id number] Take 0.[address] HCl 4-01 [id number] mg by [facility] (CATAPRES) 03:27: 3D mouth 3 Medi jennifer 0.3 MG 05 (three) Center tablet times daily. furosemide 2018-0 Yes 40mg Take [address] (LASIX) 40 4-01 by mouth [facility] MG tablet 03:27: every Medical 05 other day. [place] amLODIPine 2018-0 Yes 10mg QD Take [address] (NORVASC) 4-01 by mouth [facility] 10 MG 03:27: daily. Medical tablet 05 [place] cloNIDine 2018-0 Yes .3mg Q.[id number] Take 0.[address] HCl 4-01 [id number] mg by [facility] (CATAPRES) 03:27: 3D mouth 3 Medi jennifer 0.3 MG 05 (three) Center tablet times daily. furosemide 2018-0 Yes 40mg Take [address] (LASIX) 40 4-01 by mouth [facility] MG tablet 03:27: every Medical 05 other day. [place] amLODIPine 2018-0 Yes 10mg QD Take [address] (NORVASC) 4-01 by mouth [facility] 10 MG 03:27: daily. Medical tablet 05 [place] cloNIDine 2018-0 Yes .3mg Q.[id number] Take 0.[address] HCl 4-01 [id number] mg by [facility] (CATAPRES) 03:27: 3D mouth 3 Medi jennifer 0.3 MG 05 (three) Center tablet times daily. furosemide 2018-0 Yes 40mg Take [address] (LASIX) 40 4-01 by mouth [facility] MG tablet 03:27: every Medical 05 other day. [place] amLODIPine 2018-0 Yes 10mg QD Take [address] (NORVASC) 4-01 by mouth [facility] 10 MG 03:27: daily. Medical tablet 05 [place] cloNIDine 2018-0 Yes .3mg Q.[id number] Take 0.[address] HCl 4-01 [id number] mg by [facility] (CATAPRES) 03:27: 3D mouth 3 Medi jennifer 0.3 MG 05 (three) Center tablet times daily. furosemide 2018-0 Yes 40mg Take [address] (LASIX) 40 4-01 by mouth [facility] MG tablet 03:27: every Medical 05 other day. [place] amLODIPine 2018-0 Yes 10mg QD Take [address] (NORVASC) 4-01 by mouth [facility] 10 MG 03:27: daily. Medical tablet 05 [place] cloNIDine 2018-0 Yes .3mg Q.[id number] Take 0.[address] [address] HCl 4-01 [id number] mg by [facility] (CATAPRES) 03:27: 3D mouth 3 Medi jennifer 0.3 MG 05 (three) Center tablet times daily. furosemide 2018-0 Yes 40mg Take [address] (LASIX) 40 4-01 by mouth [facility] MG tablet 03:27: every Medical 05 other day. [place] amLODIPine 2018-0 Yes 10mg QD Take [address] (NORVASC) 4-01 by mouth [facility] 10 MG 03:27: daily. Medical tablet 05 [place] cloNIDine 2018-0 Yes .3mg Q.[id number] Take 0.[address] HCl 4-01 [id number] mg by [facility] (CATAPRES) 03:27: 3D mouth 3 Medi jennifer 0.3 MG 05 (three) Center tablet times daily. furosemide 2018-0 Yes 40mg Take [address] (LASIX) 40 4-01 by mouth [facility] MG tablet 03:27: every Medical 05 other day. [place] amLODIPine 2018-0 Yes 10mg QD Take [address] (NORVASC) 4-01 by mouth [facility] 10 MG 03:27: daily. Medical tablet 05 [place] cloNIDine 2018-0 Yes .3mg Q.[id number] Take 0.[address] HCl 4-01 [id number] mg by [facility] (CATAPRES) 03:27: 3D mouth 3 Medi jennifer 0.3 MG 05 (three) Center tablet times daily. furosemide 2018-0 Yes 40mg Take [address] (LASIX) 40 4-01 by mouth [facility] MG tablet 03:27: every Medical 05 other day. [place] amLODIPine 2018-0 Yes 10mg QD Take [address] (NORVASC) 4-01 by mouth [facility] 10 MG 03:27: daily. Medical tablet 05 [place] cloNIDine 2018-0 Yes .3mg Q.[id number] Take 0.[address] HCl 4-01 [id number] mg by [facility]ukes (CATAPRES) 03:27: 3D mouth 3 Medi jennifer 0.3 MG 05 (three) Center tablet times daily. furosemide 2018-0 Yes 40mg Take [address] (LASIX) 40 4-01 by mouth [facility] MG tablet 03:27: every Medical 05 other day. [place] amLODIPine 2018-0 Yes 10mg QD Take [address] (NORVASC) 4-01 by mouth [facility] 10 MG 03:27: daily. Medical tablet 05 [place] cloNIDine 2018-0 Yes .3mg Q.[id number] Take 0.[address] HCl 4-01 [id number] mg by [facility] (CATAPRES) 03:27: 3D mouth 3 Medi jennifer 0.3 MG 05 (three) Center tablet times daily. furosemide 2018-0 Yes 40mg Take [address] (LASIX) 40 4-01 by mouth [facility] MG tablet 03:27: every Medical 05 other day. [place] amLODIPine 2018-0 Yes 10mg QD Take [address] (NORVASC) 4-01 by mouth [facility] 10 MG 03:27: daily. Medical tablet 05 [place] cloNIDine 2018-0 Yes .3mg Q.[id number] Take 0.[address] HCl 4-01 [id number] mg by [facility] (CATAPRES) 03:27: 3D mouth 3 Medi jennifer 0.3 MG 05 (three) [facility] tablet times daily. furosemide Yes 40mg Take [address] (LASIX) 40 10-14 by mouth [facility] MG tablet 03:27: every Medical 05 other day. [place] amLODIPine Yes 10mg QD Take [address] (NORVASC) 10-14 by mouth [facility] 10 MG 03:27: daily. Medical tablet 05 [place] cloNIDine Yes .3mg Q.[id number] Take 0.[address] [address] HCl 10-14 [id number] mg by [facility] (CATAPRES) 03:27: 3D mouth 3 Medi jennifer 0.3 MG 05 (three) [facility] tablet times daily. Immunizations Ordered Filled Immunization Date Status Comments Dave mckeon Immunization Name Name SARS-COV-2 COVID-19 2020-09-28 Completed Unive rsity of PFIZER VACCINE 00:00:00 [facility] SARS-COV-2 COVID-19 2020-09-28 Completed Unive rsity of PFIZER VACCINE 00:00:00 [facility] SARS-COV-2 COVID-19 2020-09-07 Completed Unive rsity of PFIZER VACCINE 00:00:00 [facility] SARS-COV-2 COVID-19 2020-09-07 Completed Unive rsity of PFIZER VACCINE 00:00:00 [facility] Vital Signs Vital Name Observation Time Observation Value Comments Source Systolic blood 2022-11-27 15:10:00 172 mm[Hg] Univer sity of pressure [facility] Diastolic blood 2022-11-27 15:10:00 109 mm[Hg] Unive rsity of pressure [facility] Heart rate 2022-11-27 15:10:00 89 /min [facility] Respiratory rate 2022-11-27 15:10:00 17 /min [facility] 2022-11-27 15:10:00 80.74 kg [facility] Oxygen saturation in 2022-11-27 15:10:00 98 /min [facility] Arterial blood by [facility] Pulse oximetry Branch Procedures Procedure Date / Time Performed Performing Clinician Dave mckeon MR BRAIN WO CONTRAST 2022-11-27 16:27:30 [facility] Plan of Care Planned Activity Planned [...] Medical C enter SCREENING] Future Scheduled 2022-07-16 FALLS RISK SCREENING [facility] [...] [facility] Test 00:00:00 [code = CT Colonography [facility] Center (combo)] Future Scheduled 1952 Screening [facility] malignant [facility] Test 00:00:00 neoplasm of colon Medical Ce nter (procedure) [code = 078116801] Future Scheduled 1952 Screening [facility] malignant [facility] Test 00:00:00 neoplasm of colon Medical Ce nter (procedure) [code = 747642775] Future Scheduled 1952 Screening [facility] malignant [facility] Test 00:00:00 neoplasm of colon Medical Ce nter (procedure) [code = 879306551] Future Scheduled 1952 Screening for malignant [facility] Test 00:00:00 neoplasm of colon Medical Ce nter (procedure) [code = 314117949] Future Scheduled 1950 Sigmoidoscopy [code = [facility] 00:[facility]:00 Sigmoidoscopy] Medical Cente r Future Scheduled 1952 Screening for malignant [facility] Test 00:00:00 neoplasm of colon Medical Ce nter (procedure) [code = 053857317] Future Scheduled 1952 Screening for malignant [facility] Test 00:00:00 neoplasm of colon Medical Ce nter (procedure) [code = 819993976] Future Scheduled 1952 CT Colonography (combo) [facility] Test 00:00:00 [code = CT Colonography Medi [facility] Center (combo)] Future Scheduled 1952 Screening for malignant [facility] Test 00:00:00 neoplasm of colon Medical Ce nter (procedure) [code = 173884467] Future Scheduled 1952 Screening for malignant [facility] Test 00:00:00 neoplasm of colon Medical Ce nter (procedure) [code = 859790312] Future Scheduled 1952 Screening for malignant [facility] Test 00:00:00 neoplasm of colon Medical Ce nter (procedure) [code = 754482933] Future Scheduled 1952 Screening for malignant [facility] Test 00:00:00 neoplasm of colon Medical Ce nter (procedure) [code = 455883199] Future Scheduled 1952 Sigmoidoscopy [code = [facility] 00:00:00 Sigmoidoscopy] Medical Cente r Future Scheduled 1952 Screening for malignant [facility] Test 00:00:00 neoplasm of colon Medical Ce nter (procedure) [code = 074675610] Future Scheduled 1952 Screening for malignant [facility] Test 00:00:00 neoplasm of colon Medical Ce nter (procedure) [code = 441325013] Future Scheduled 1952 CT Colonography (combo) [facility] Test 00:00:00 [code = CT Colonography [facility] (combo)] Future Scheduled 1952 Screening for malignant [facility] Test 00:00:00 neoplasm of colon Medical Ce nter (procedure) [code = 107522723] Future Scheduled 1952 Screening for malignant [facility] Test 00:00:00 neoplasm of colon Medical Ce nter (procedure) [code = 509955673] Future Scheduled 1952 Screening for malignant [facility] Test 00:00:00 neoplasm of colon Medical Ce nter (procedure) [code = 842902894] Future Scheduled 1952 Screening for malignant [facility] Test 00:00:00 neoplasm of colon Medical Ce nter (procedure) [code = 866711483] Future Scheduled 1952 Sigmoidoscopy [code = CH [...] colon Medical Ce nter (procedure) [code = 309151592] Future Scheduled 1952 Screening for malignant [facility] Test 00:00:00 neoplasm of colon Medical Ce nter (procedure) [code = 619335923] Future Scheduled 1952 Screening for malignant [facility] Test 00:00:00 neoplasm of colon Medical Ce nter (procedure) [code = 373424808] Future Scheduled 1952 Screening for malignant [facility] Test 00:00:00 neoplasm of colon Medical Ce nter (procedure) [code = 089043321] Future Scheduled 1952 Sigmoidoscopy [code = [facility] 00:00:00 Sigmoidoscopy] Medical Cente r Future Scheduled 1952 CT Colonography (combo) [facility] Test 00:00:00 [code = CT Colonography [facility] Center (combo)] Future Scheduled 1952 Screening for malignant [facility] Test 00:00:00 neoplasm of colon Medical Ce nter (procedure) [code = 087885414] Future Scheduled 1952 Screening for malignant [facility] Test 00:00:00 neoplasm of colon Medical Ce nter (procedure) [code = 029079384] Future Scheduled 1952 Screening for malignant [facility] Test 00:00:00 neoplasm of colon Medical Ce nter (procedure) [code = 527500086] Future Scheduled 1952 Screening for malignant [facility] Test 00:00:00 neoplasm of colon Medical Ce nter (procedure) [code = 634181022] Future Scheduled 1952 Sigmoidoscopy [facility]code [facility] 00:00:[facility] Sigmoidoscopy] Medical Cente r Future Scheduled 1952 CT Colonography (combo) [facility] Test 00:00:00 [code = CT Colonography Medi jennifer Center (combo)] Future Scheduled 1952 Screening for malignant [facility] Test 00:00:00 neoplasm of colon Medical Ce nter (procedure) [code = 351769293] Future Scheduled 1952 Screening for malignant [facility] Test 00:00:00 neoplasm of colon Medical Ce nter (procedure) [code = 176738119] Future Scheduled 1952 Screening for malignant [facility] Test 00:00:00 neoplasm of colon Medical Ce nter (procedure) [code = 405702507] Future Scheduled 1952 Screening for malignant [facility] Test 00:00:00 neoplasm of colon Medical Ce nter (procedure) [code = 460178677] Future Scheduled 1952 Sigmoidoscopy [code [facility] 00:00:00 Sigmoidoscopy] Medical Cente r Future Scheduled 1952 CT Colonography (combo) [facility] Test 00:00:00 [code = CT Colonography [facility] Center (combo)] Future Scheduled 1952 Screening for malignant [facility] Test 00:00:00 neoplasm of colon Medical Ce nter (procedure) [code = 645710619] Future Scheduled 1952 Screening for malignant [facility] Test 00:00:00 neoplasm of colon Medical Ce nter (procedure) [code = 912327533] Future Scheduled 1952 Screening for malignant [facility] Test 00:00:00 neoplasm of colon Medical Ce nter (procedure) [code = 822438763] Future Scheduled 1952 Screening for malignant [facility] Test 00:00:00 neoplasm of colon Medical Ce nter (procedure) [code = 152362399] Future Scheduled 1952 Sigmoidoscopy [facility]code [facility] 00:00:[facility] Sigmoidoscopy] Medical Cente r Future Scheduled 1952 CT Colonography (combo) [facility] Test 00:00:00 [code = CT Colonography [facility] Center (combo)] Future Scheduled 1952 Screening for malignant [facility] Test 00:00:00 neoplasm of colon Medical Ce nter (procedure) [code = 900912688] Future Scheduled 1952 Screening for malignant [facility] 00:00:00 neoplasm of colon Medical Ce nter (procedure) [code = 167813080] Future Scheduled 1952 Screening for malignant [facility] 00:00:00 neoplasm of colon Medical Ce nter (procedure) [code = 166309360] Future Scheduled 1952 Screening for malignant [facility] 00:00:00 neoplasm of colon Medical Ce nter (procedure) [code = 571044320] Future Scheduled 1952 Sigmoidoscopy [facility]code [facility] 00:[facility] Sigmoidoscopy] Medical Cente r Future Scheduled 1952 CT Colonography (combo) [facility] Test 00:00:00 [code = CT Colonography Medi jennifer Center (combo)] Future Scheduled 1952 Screening for malignant [facility] Test 00:00:00 neoplasm of colon Medical Ce nter (procedure) [code = 509887535] Future Scheduled 1952 Screening for malignant [facility] Test 00:00:00 neoplasm of colon Medical Ce nter (procedure) [code = 001613351] Future Scheduled [address] Screening for malignant [facility] 00:00:00 neoplasm of colon Medical Ce nter (procedure) [code = 411984153] Future Scheduled 1952 Screening for malignant [facility] 00:00:00 neoplasm of colon Medical Ce nter (procedure) [code = 673449811] Future Scheduled 1952 Sigmoidoscopy [code [facility] 00:[facility] Sigmoidoscopy] Medical Cente r Future Scheduled 1952 CT Colonography (combo) [facility] 00:00:00 [code = CT Colonography Medi jennifer Center (combo)] Future Scheduled 1952 Screening for malignant [facility] Test 00:00:00 neoplasm of colon Medical Ce nter (procedure) [code = 409630238] Future Scheduled 1952 Screening for malignant [facility] Test 00:00:00 neoplasm of colon Medical Ce nter (procedure) [code = 148472096] Future Scheduled 1952 Screening for malignant [facility] Test 00:00:00 neoplasm of colon Medical Ce nter (procedure) [code = 652068469] Future Scheduled 1952 CT Colonography (combo) [facility] 00:00:00 [code = CT Colonography [facility] Center (combo)] Future Scheduled 1952 Screening for malignant [facility] Test 00:00:00 neoplasm of colon Medical Ce nter (procedure) [code = 714416746] Future Scheduled 1952 Sigmoidoscopy [facility]code [facility] 00:[facility] Sigmoidoscopy] Medical Cente r Future Scheduled 1952 Screening for malignant [facility] Test 00:00:00 neoplasm of colon Medical Ce nter (procedure) [code = 516981858] Future Scheduled 1952 CT Colonography (combo) [facility] 00:00:00 [code = CT Colonography [facility] Center (combo)] Future Scheduled 1952 Screening for malignant [facility] Test 00:00:00 neoplasm of colon Medical Ce nter (procedure) [code = 380989601] Future Scheduled 1952 Screening for malignant [facility] Test 00:00:00 neoplasm of colon Medical Ce nter (procedure) [code = 100613821] Future Scheduled 1952 Screening for malignant [facility] 00:00:00 neoplasm of colon Medical Ce nter (procedure) [code = 685670235] Future Scheduled 1952 Screening for malignant [facility] Test 00:00:00 neoplasm of colon Medical Ce nter (procedure) [code = 019596710] Future Scheduled 1952 Screening for malignant [facility] Test 00:00:00 neoplasm of colon Medical Ce nter (procedure) [code = 063970563] Future Scheduled 1952 Sigmoidoscopy [facility]code [facility] 00:[facility] Sigmoidoscopy] Medical Cente r Future Scheduled 1952 Screening for malignant [facility] Test 00:00:00 neoplasm of colon Medical Ce nter (procedure) [code = 374370105] Future Scheduled 1952 CT Colonography (combo) [facility] Test 00:00:00 [code = CT Colonography [facility] Center (combo)] Future Scheduled 1952 Screening for malignant [facility] Test 00:00:00 neoplasm of colon Medical Ce nter (procedure) [code = 681468651] Future Scheduled 1952 Screening for malignant [facility] Test 00:00:00 neoplasm of colon Medical Ce nter (procedure) [code = 072268676] Future Scheduled [address] Screening for malignant [facility] Test 00:00:00 neoplasm of colon Medical Ce nter (procedure) [code = 279938544] Future Scheduled [address] [facility] Test 00:00:00 neoplasm of colon Medical Ce nter (procedure) [code = 126764204] Future Scheduled 1950 Sigmoidoscopy [facility] Future Scheduled 1952 Screening for malignant [facility] 00:00:00 neoplasm of colon Medical Ce nter (procedure) [code = 220920629] Future Scheduled 1950 Sigmoidoscopy [code = [facility] 00:[facility] S[facility]oscopy] [facility] Cent[facility] Future Scheduled 1952 CT Colonography (combo) [facility] 00:00:00 [code = CT Colonography [facility] (combo)] Future Scheduled 1952 Screening for malignant [facility] 00:00:00 neoplasm of colon Medical Ce nter (procedure) [code = 197386344] Future Scheduled 1952 Screening for malignant [facility] 00:00:00 neoplasm of colon Medical Ce nter (procedure) [code = 245477754] Future Scheduled 1952 Screening for malignant [facility] 00:00:00 neoplasm of colon Medical Ce nter (procedure) [code = 613723767] Future Scheduled 1952 Screening for malignant [facility] 00:00:00 neoplasm of colon Medical Ce nter (procedure) [code = 157604302] Future Scheduled 1950 Sigmoidoscopy [code = [facility] 00:[facility] S[facility]oscopy] Medical Cent[facility] r Future Scheduled 1952 CT Colonography (combo) [facility] 00:00:00 [code = CT [facility] ([facility])] Future Scheduled 1952 Screening for malignant [facility] 00:00:00 neoplasm of colon Medical Ce nter (procedure) [code = 327623798] Future Scheduled 1952 Screening for malignant [facility] 00:00:00 neoplasm of colon Medical Ce nter (procedure) [code = 913040373] Future Scheduled 1952 Screening for malignant [facility] 00:00:00 neoplasm of colon Medical Ce nter (procedure) [code = 107005281] Future Scheduled 1952 Screening for malignant [facility] 00:00:00 neoplasm of colon Medical Ce nter (procedure) [code = 931632883] Future Scheduled 1950 Sigmoidoscopy [code = [facility] 00:[facility] Sigmoidoscopy] [facility] r Future Scheduled 1952 CT Colonography (combo) [facility] 00:00:00 [code = CT Colonography [facility] (combo)] Future Scheduled 1952 Screening for malignant [facility] 00:00:00 neoplasm of colon Medical Ce nter (procedure) [code = 320096483] Future Scheduled 1952 Screening for malignant [facility] 00:00:00 neoplasm of colon Medical Ce nter (procedure) [code = 446430480] Future Scheduled 1952 Screening for malignant [facility] 00:00:00 neoplasm of colon Medical Ce nter (procedure) [code = 577088786] Future Scheduled 1952 Screening for malignant [facility] 00:00:00 neoplasm of colon Medical Ce nter (procedure) [code = 399001035] Future Scheduled 1950 Sigmoidoscopy [facility] ([facility]bo[facility] 00:00:00 [code = CT Colonography [facility] (combo)] Future Scheduled 1952 Screening for malignant [facility] 00:00:00 neoplasm of colon Medical Ce nter (procedure) [code = 436452447] Future Scheduled 1952 Screening for malignant [facility] 00:00:00 neoplasm of colon Medical Ce nter (procedure) [code = 400054742] Future Scheduled 1952 Screening for malignant [facility] 00:00:00 neoplasm of colon Medical Ce nter (procedure) [code = 046037212] Future Scheduled 1952 Screening for malignant [facility] 00:00:00 neoplasm of colon Medical Ce nter (procedure) [code = 289311352] Future Scheduled 1950 Sigmoidoscopy [code = [facility] 00:[facility] Sigmoidoscopy] Medical Cente r Future Scheduled 1952 CT Colonography (combo) [facility] 00:00:00 [code = CT Colonography [facility] (combo)] Future Scheduled 1952 Screening for malignant [facility] 00:00:00 neoplasm of colon Medical Ce nter (procedure) [code = 136740918] Future Scheduled 1952 Screening for malignant [facility] 00:00:00 neoplasm of colon Medical Ce nter (procedure) [code = 600256384] Future Scheduled 1952 Screening for malignant [facility] 00:00:00 neoplasm of colon Medical Ce nter (procedure) [code = 669590334] Future Scheduled 1952 Screening for malignant [facility] 00:00:00 neoplasm of colon Medical Ce nter (procedure) [code = 249649587] Future Scheduled 1952 Sigmoidoscopy [code = [facility] 00:[facility] Sigmoidoscopy] Medical Cent[facility] r Future Scheduled 1952 CT Colonography (combo) [facility] 00:00:00 [code = CT Colonography [facility] (combo)] Future Scheduled 1952 Screening for malignant [facility] 00:00:00 neoplasm of colon Medical Ce nter (procedure) [code = 186674589] Future Scheduled 1952 Screening for malignant [facility] 00:00:00 neoplasm of colon Medical Ce nter (procedure) [code = 866569918] Future Scheduled 1952 Screening for malignant [facility] 00:00:00 neoplasm of colon Medical Ce nter (procedure) [code = 848030965] Future Scheduled 1952 Screening for malignant [facility] 00:00:00 neoplasm of colon Medical Ce nter (procedure) [code = 570807945] Future Scheduled 1952 Sigmoidoscopy [code = [facility] 00:00:[facility] Sigmoidoscopy] Medical Cente r Future Scheduled 1952 CT Colonography (combo) [facility] 00:00:00 [code = CT [facility] ([facility])] Future Scheduled 1952 Screening for malignant [facility] 00:00:00 neoplasm of colon Medical Ce nter (procedure) [code = 918103095] Future Scheduled 1952 Screening for malignant [facility] 00:00:00 neoplasm of colon Medical Ce nter (procedure) [code = 255942843] Future Scheduled 1952 Screening for malignant [facility] 00:00:00 neoplasm of colon Medical Ce nter (procedure) [code = 151951206] Future Scheduled 1952 Screening for malignant [facility] 00:00:00 neoplasm of colon Medical Ce nter (procedure) [code = 367371350] Future Scheduled 1952 Sigmoidoscopy [code [facility] 00:[facility] S[facility]oidoscopy] Medical Cent[facility] r Future Scheduled 1952 CT Colonography (combo) [facility] 00:00:00 [code = CT Colonography [facility] ([facility])] Future Scheduled 1952 Screening for malignant [facility] 00:00:00 neoplasm of colon Medical Ce nter (procedure) [code = 930367034] Future Scheduled 1952 Screening for malignant [facility] 00:00:00 neoplasm of colon Medical Ce nter (procedure) [code = 390025668] Future Scheduled 1952 Screening for malignant [facility] 00:00:00 neoplasm of colon Medical Ce nter (procedure) [code = 875488859] Future Scheduled 1952 Screening for malignant [facility] 00:00:00 neoplasm of colon Medical Ce nter (procedure) [code = 776404745] Future Scheduled 1952 Sigmoidoscopy [code = [facility] 00:00:[facility] Sigmoidoscopy] Medical Cente r Future Scheduled 1952 CT Colonography (combo) [facility] 00:00:00 [code = CT Colonography [facility] (combo)] Future Scheduled 1952 Screening for malignant [facility] 00:00:00 neoplasm of colon Medical Ce nter (procedure) [code = 607181340] Future Scheduled 1952 Screening for malignant [facility] 00:00:00 neoplasm of colon Medical Ce nter (procedure) [code = 484412144] Future Scheduled 1952 Screening for malignant [facility] 00:00:00 neoplasm of colon Medical Ce nter (procedure) [code = 282187176] Future Scheduled 1952 Screening for malignant [facility] 00:00:00 neoplasm of colon Medical Ce nter (procedure) [code = 566798746] Future Scheduled 1950 Sigmoidoscopy [facility]code [facility] 00:[facility] Sigmoidoscopy] Medical Cente r Encounters Start End Encounter Admission Attending Care Care Encounter Source Date/Time Date/Time Type Type Clinicians Facility Department ID 2022-11-27 2022-11-27 Outpatient R RADIOLOGY [facility] [id number] Univers 09:20:30 23:59:00 ity of [facility] 2022-11-27 2022-11-27 Hospital Radiology [facility] [id number] Univers 09:20:30 23:59:00 Encounter HEALTH [id number] ity of [place] [id number] Gaviota COYNE [id number] [facility] [address] ([facility]) 2022-10-28 2022-10-28 [facility] [id number] [facility] 17:30:00 17:30:00 Paolo cedeño [facility] 2022-10-26 2022-10-26 Inpatient ENZO Fonseca RI [id number] [facility] 11:00:00 11:00:00 Paolo 21 [facility] 2022-10-23 2022-10-23 Outpatient ENZO Ly [facility] [id number] [facility] 13:44:00 13:44:00 Paolo 38 [facility] 2022-10-23 2022-10-23 Outpatient IMELDA Ly [facility] [id number] [facility] 13:14:00 13:14:00 Paolo 97 [facility] 2020-05-25 2020-05-25 Outpatient CHAYA [facility] SLE [id number] SLE 00:00:00 00:00:00 DEMETRIUS 2020-05-25 2020-05-25 Outpatient CHAYA [facility] [id number] [facility] 00:00:00 00:00:00 DEMETRIUS 2020-03-02 2020-03-02 Outpatient [facility] SLE [id number] [facility] 00:00:00 00:00:00 Results Test Description Test Time Test Comments Results Result [facility] e Comments - CT HEAD/BRAIN 2022-10-28 W[facility]O [facility] 1950 Sex: M Name: JENNIFER BELLA [facility] [place] : 1950 Age/S: 72 / M [address] [place] [address] Unit #: [id number] Loc: AmayaNHAN [address]87 Phys: Paolo Ly DO Acct: [id number] Dis Date: Status: REG CLI PHONE #: [phone] Exam Date: 10/28/2022 1801 FAX #: [phone] Reason: FALL EXAMS: CPT CODE: [id number] CT HEAD/BRAIN W/O CONT 00789 PROCEDURE INFORMATION: Exam: CT Head Without Contrast [...] 1 Signed Report (CONTINUED) Name: JENNIFER BELLA [facility] : 1950 Age/S: 72 / M [address] [place] [address] Blvd Unit #: [id number] Loc: Jose Luis NHAN [address] Phys: Paolo Ly DO Acct: [id number] Dis Date: Status: REG CLI PHONE #: [phone] Exam Date: 10/28/2022 180 FAX #: [phone] Reason: FALL EXAMS: CPT CODE: [id number] CT HEAD/BRAIN W/O CONT 81024 (Continued) inferior cerebellar hemisphere which was present previously as well as 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 at 1849 Reported and signed by: Marcello Jaramillo M.D. CC: Paolo Ly DO Technologist:Efren Luis, RT(R)(CT) CTDI: DLP: Trnscb Date/Time: 10/28/2022 (1848) t.SDR.BB15 Orig Print D/T: S: 10/28/2022 (1849) PAGE 2 Signed Report - CT HEAD/BRAIN 2022-10-23 W/O CONT 00:00:00 [facility] NOLAN GOLDEN MEADOWName: JENNIFER BELLA : 1950 Sex: M Name: JENNIFER BELLA [facility] [place] : 1950 Age/S: 72 / M [address] [place] [address] Blvd Unit #: [id number] Loc: Jose Luis NHAN [address]10 Phys: Paolo Ly DO Acct: [id number] Dis Date: Status: REG CLI PHONE #: [phone] Exam Date: 10/23/2022 1354 FAX #: [phone] Reason: INCREASED TONE CONFUSION. Report Has Been Amended EXAMS: CPT CODE: [id number] CT HEAD/BRAIN W/O CONT 74019 Addendum - 10/23/2022 SIGNED 10/23/2022 ADDENDUM: [id number] CT/CTHDBRWO Findings discussed with Dr. Ly at 3:05 p.m. central standard time at 1506 Reported and signed by: Salvador Ballesteros M.D. Addendum - 10/23/2022 SIGNED 10/23/2022 ADDENDUM: [id number] CT/CTHDBRWO Attempt was made to contact personnel [...] 1 Signed Report (CONTINUED) Name: JENNIFER BELLA : 1950 Age/S: 72 / M [address] [place] [address] Unit #: [id number] Loc: AmayaNHAN [address]1746 Phys: Paolo Ly DO Acct: [id number] Dis Date: Status: REG CLI PHONE #: [phone] Exam Date: 10/23/2022 1354 FAX #: [phone] Reason: INCREASED TONE CONFUSION. Report Has Been Amended EXAMS: CPT CODE: [id number] CT HEAD/BRAIN W/O CONT 66770 (Continued) Brain: Hypoattenuation consistent with age-indeterminate infarction [...] Technologist:RT Zulay(R)(CT) CTDI: DLP: Trnscb Date/Time: 10/23/2022 (141) t.SDR.AC53 Orig Print D/T: S: 10/23/2022 (7738) PAGE 2 Signed Report MR, ABDOMEN, 2020-05-25 [...] MDReport Verified Date/Time: 05/25/2020 16:51:08 Reading Location: [facility] C013T [facility] Reading Room , CHEST, 2 2020-05-25 Reason for VIEWS 10:10:00 Exam:->Person al history of [facility] 1950 Sex: M [...] MDReport Verified Date/Time: 05/25/2020 10:10:41 Reading Location: [facility] Reading Room [address] [place] [address] UE EXAM 2017-10-16 Surgical Pathology Report 09:38:00 Case: [id number] Authorizing Provider: Demetrius Larkin MD Collected: 10/09/2017 1652 Ordering Location: [facility] PERIOPERATIVE Received: 10/10/2017 0810 [...] SYNOPTIC REPORT Signing Pathologist Direct Phone Line: [phone] y signed by Joyce Sauceda MD on [...] (tw, can include).This patient's previous biopsy from [facility], from 03/02/2017 ([id number]) shows a core biopsy with features similar [...] Additional Pathological Findings: Cyst(s): Simple cortical cyst 03171 X 2, 73723, 96333 x6Left renal massA. Retroperitoneal lymph node. B. [...] positive; AE1/AE3-positive; RICHARD and CK 7-focally positive; US74-vvniruyd CD10 equivocal, possibly focally positiveThe immunohistochemistry test [...] NOT 1092) ACCURATE CRE ATININE CLEARANCE IN [place] EDICTING GLOMERULAR FILT RATION RATE. ESTIMATED GFR IS NOT APPLICABLE FOR DIALYSIS PATIENTS. CBC W/PLT COUNT & AUTO [id number] 12:44:00 Test Item Value Reference Range Interpretation [...] (BEAKER) (test code = 2801) BASIC METABOLIC [id number] 15:02:00 Test Item Value Reference Range Interpretation [...] PATIEN TS. Please draw at 2:00pmBASIC METABOLIC [id number] 06:14:00 Test Item Value Reference Range Interpretation [...] S NOT APPLICABLE FOR DIALYSIS PATIEN TS. [id number] 06:03:00 Test Item Value Reference Range Interpretation Comments PHOSPHORUS (BEAKER) (test code = 2.7 mg/dL 2.3-4.7 604) [id number] 06:03:00 Test Item Value Reference Range Interpretation Comments MAGNESIUM (BEAKER) (test code = 2.1 mg/dL 1.6-2.6 627) CBC W/PLT COUNT & AUTO [id number] 05:16:00 Test Item Value Reference Range Interpretation [...] 20-55 (test code = 2590) BASIC METABOLIC [id number] 05:41:00 Test Item Value Reference Range Interpretation [...] S NOT APPLICABLE FOR DIALYSIS PATIEN TS. [id number] 05:36:00 Test Item Value Reference Range Interpretation Comments PHOSPHORUS (BEAKER) (test code = 2.8 mg/dL 2.3-4.7 604) [id number] 05:36:00 Test Item Value Reference Range Interpretation Comments MAGNESIUM (BEAKER) (test code = 2.2 mg/dL 1.6-2.6 627) PTH, [id number] 05:33:00 Test Item Value Reference Range Interpretation Comments PARATHYROID HORMONE INTACT 212.3 pg/mL 8.5-72.5 H (BEAKER) (test code = 577) CBC W/PLT COUNT & AUTO [id number] 05:02:00 Test Item Value Reference Range Interpretation [...] 0-1 PERCENT (BEAKER) (test code = 2801) [id number] 06:36:00 Test Item Value Reference Range Interpretation Comments PHOSPHORUS (BEAKER) (test code = 2.4 mg/dL 2.3-4.7 604) [id number] 06:36:00 Test Item Value Reference Range Interpretation Comments MAGNESIUM (BEAKER) (test code = 1.8 mg/dL 1.6-2.6 627) BASIC METABOLIC [id number] 06:36:00 Test Item Value Reference Range Interpretation [...] PATIEN TS. CBC W/PLT COUNT & AUTO [id number] 05:59:00 Test Item Value Reference Range Interpretation [...] 0-1 PERCENT (BEAKER) (test code = 2801) [id number] 19:38:00 Test Item Value Reference Range Interpretation Comments PHOSPHORUS (BEAKER) (test code = 2.8 mg/dL 2.3-4.7 604) [id number] 19:38:00 Test Item Value Reference Range Interpretation Comments MAGNESIUM (BEAKER) (test code = 1.7 mg/dL 1.6-2.6 627) BASIC METABOLIC [id number] 19:35:00 Test Item Value Reference Range Interpretation [...] APPLICABLE FOR DIALYSIS PATIEN TS. HEMOGLOBIN AND [id number] 19:07:00 Test Item Value Reference Range Interpretation Comments HEMOGLOBIN (BEAKER) (test code = 13.7 GM/DL 13.7-17.5 410) HEMATOCRIT (BEAKER) (test code = 40.5 % 40.1-51.0 411) URINE [id number] 13:12:00 Test Item Value Reference Range Interpretation Comments CULTURE (BEAKER) (test code = 1095) No growth BASIC METABOLIC [id number] 17:19:00 Test Item Value Reference Range Interpretation [...] APPLICABLE FOR DIALYSIS PATIEN TS. URINALYSIS W/ [id number] 17:15:00 Test Item Value Reference Range Interpretation [...] 1574) Rare SOURCE(BEAKER) (test code = 2795) [id number] 17:07:00 Test Item Value Reference Range Interpretation Comments PARTIAL THROMBOPLASTIN TIME 28.1 seconds 22.5-36.0 (BEAKER) (test code = 760) PROTHROMBIN [id number] 17:06:00 Test Item Value Reference Range Interpretation Comments PROTIME (BEAKER) (test code = 13.6 seconds 11.7-14.7 759) INR (BEAKER) (test code = 370) 1.0 <=5.9 RECOMMENDED COUMADIN/WARFARIN INR THERAPY RANGESSTANDARD DOSE: 2.0 - 3.0 Includes: PROPHYLAXIS for venous thrombosis, systemic embolization; TREATMENT for venous thrombosis and/or pulmonary embolus.HIGH RISK: Target INR is 2.5-3.5 for patients with mechanical heart valves.CBC W/PLT COUNT & AUTO [id number] 16:53:00 Test Item Value Reference Range Interpretation [...] PERCENT (BEAKER) (test code = 2801) TISSUE [id number] 11:47:00Surgical Pathology Report Case: [id number] Authorizing Provider: Farzad Jackson Collected: 03/02/2017 Asad Vicente MD Ordering Location: [facility] Diagnostic Imaging Received: 03/02/2017 1140 Pathologis [...] diagnosis. These results were relayed to Dr. uCrrie on 03/06/2017 at 11:40 am. Intradepartmental consultation: Dr. Koko Whitney, Dr. Umu Manzanares/[id number], 97942, 28848 x2Left kidney biopsy Milana browerThe specimen is [...] [facility]. It has notbeen cleared or [...] qualified to perform high complexity clinical laboratory testing.[id number] 08:19:00 Test Item Value Reference Range Interpretation [...] mechanical heart valves.CBC W/PLT COUNT & AUTO [id number] 08:14:00 Test Item Value Reference Range Interpretation [...] Note Provider Source 2017-10-10 00:13:00-00:00 DEMETRIUS LARKIN [facility] REPORT OF PROCEDURE JENNIFER BELLA FACILITY: [facility] BILLING #: [id number] ROOM: [facility] [id number] MR #: [id number] : 1950 DATE OF PROCEDURE: 10/09/2017 SURGEON: Demetrius Larkin MD MANAGER COUNTRY: Marizol Gonsales MD, PhD PREOPERATIVE DIAGNOSIS: Left renal mass. POSTOPERATIVE DIAGNOSIS: Left renal mass. OPERATIVE PROCEDURE: Left lapro-endoscopic singl e-site radical nephrectomy with retroperitoneal lymph node dissection. ANESTHESIA: General. BLOOD LOSS: 50 mL. COMPLICATIONS: None. SPECIMENS 1. Left kidney and hilar lymph nodes. 2. Retroperitoneal lymph node dissection. FINDING: Single right renal artery and 2 right r enal veins. DRAIN: A 16-Persian Hart catheter. OPERATIVE PROCEDURE: Mr. Bella is [...] entered digitally. We then placed the applied me dical single-site device at this location with [...] all barakat aspec ts of the procedure. MARKUS/angie P A Job#: [id number] Doc#: [id number] FN: [id number] cc: Demetrius Larkin MD
[2023-03-20 04:48] LABS: Protime INR 0.95
[2023-03-20 04:50] LABS: Hematocrit 35.4 % (39.6-49.0); Lymphocytes % 23.6 % (15.3-44.8); MCV 89.1 fL (80-100); MPV 7.1 fL (7.6-11.3); Platelets 294 thou/uL (152-406); RBC Red Blood Cell Count 3.97 M/uL (4.33-5.43)
[2023-03-20 05:11] LABS: ALT/SGPT 25 U/L (16-61); AST/SGOT 17 U/L (15-37); Alkaline Phosphatase 53 U/L (45-117); BUN Blood Urea Nitrogen 35 mg/dL (7-18); Bicarbonate 26 mEq/L (21-32); Bilirubin Total 0.3 mg/dL (0.2-1.0); Glomerular Filtration Rate 24 ml/min (=/>90); Glucose Level 96 mg/dL (74-106); Magnesium 2.2 mg/dL (1.6-2.4); NT PRO-BNP 1933 pg/mL (<125); Potassium 3.4 mEq/L (3.5-5.1); Protein, Total 6.3 g/dL (6.4-8.2); Sodium Level 139 mEq/L (136-145)
[2023-03-20 05:13] LABS: Bilirubin Direct < 0.1 mg/dL (0-0.2); Bilirubin Indirect, Calculated ND mg/dL (0.2-0.8)
[2023-03-20 05:14] LABS: Troponin High Sensitivity 99.9 pg/mL (<58.9)
--- NOTE | 2023-03-20 05:30 | ER ---
Nurse's Notes [facility] Name: Aravind Low Age: 72 yrs Sex: Male : 1950 Arrival Date: 03/20/2023 Time: 03:30 Bed 13 Private MD: Diagnosis: Pain in right leg;Pain in left leg;Unspecified kidney failure-chronic;Essential (primary) hypertension;Abnormal levels of other serum enzymes-elevated troponin;Anemia, unspecified Presentation: 03/20 03:37 Chief complaint: EMS states: per family, pt c/o Bilateral inner thigh pain. Coronavirus jw7 screen: At this time, the client does not indicate any symptoms associated with coronavirus-19. Ebola Screen: No symptoms or risks identified at this time. Initial Sepsis Screen: Does the patient meet any 2 criteria? No. Patient's initial sepsis screen is negative. Does the patient have a suspected source of infection? No. Patient's initial sepsis screen is negative. Risk Assessment: Do you want to hurt yourself or someone else? Patient reports no desire to harm self or others. Onset of symptoms was March 19, 2023. 03:37 Method Of Arrival: EMS: [facility] jw7 03:37 Acuity: ANTONIO 3 jw7 Triage Assessment: 03:40 General: Appears in no apparent distress. comfortable, Behavior is calm, cooperative. jw7 03:40 Pain: Denies pain. jw7 Historical: - Allergies: 05:23 No Known Allergies; jw7 - Home Meds: 05:23 amlodipine oral [Active]; aspirin 81 mg Oral cap 1 cap once daily [Active]; jw7 atorvastatin Oral [Active]; Clonidine Oral [Active]; clopidogrel Oral [Active]; Hydralazine Oral [Active]; Metoprolol Tartrate Oral [Active]; olanzapine Oral [Active]; Sodium Bicarbonate Oral [Active]; - PMHx: 05:23 CVA; Dementia; ESRD; Gout; Hypertension; kidney cancer; jw7 - PSHx: 05:23 kidney removal; jw7 - Immunization history:: Client reports receiving the 2nd dose of the Covid vaccine. - Family history:: not pertinent. - Social history:: Smoking status: unknown. Screenin:40 [facility] ED Fall Risk Assessment (Adult) History of falling in the last 3 months, jw7 including since admission No falls in past 3 months (0 pts) Confusion or Disorientation No (0 pts) Intoxicated or Sedated No (0 pts) Impaired Gait Yes (1 pt) Mobility Assist Device Used No (0 pt) Altered Elimination No (0 pt) Score/Fall Risk Level 0 - 2 = Low Risk Oriented to surroundings, Maintained a safe environment. Abuse screen: Denies threats or abuse. Denies injuries from another. Nutritional screening: No deficits noted. Tuberculosis screening: No symptoms or risk factors identified. Assessment: 04:00 General: See triage assessment. jw7 05:00 Reassessment: Patient appears in no apparent distress at this time. No changes from jw7 previously documented assessment. Patient and/or family updated on plan of care and expected duration. Pain level reassessed. Patient is alert, oriented x 3, equal unlabored respirations, skin warm/dry/pink. General: see triage assessment. 05:59 Reassessment: Patient appears in no apparent distress at this time. No changes from jw7 previously documented assessment. Patient and/or family updated on plan of care and expected duration. Pain level reassessed. Patient is alert, oriented x 3, equal unlabored respirations, skin warm/dry/pink. 06:48 Reassessment: Patient appears in no apparent distress at this time. No changes from jw7 previously documented assessment. Patient and/or family updated on plan of care and expected duration. Pain level reassessed. Patient is alert, oriented x 3, equal unlabored respirations, skin warm/dry/pink. Patient denies pain at this time. 07:48 Reassessment: Patient appears in no apparent distress at this time. No changes from [facility] previously documented assessment. Patient and/or family updated on plan of care and expected duration. Pain level reassessed. Patient is alert, oriented x 3, equal unlabored respirations, skin warm/dry/pink. Vital Signs: 03:37 BP 157 / 94; Pulse 73; Resp 16 S; Pulse Ox 100% on R/A; Weight 48.4 kg; Height 5 ft. 4 jw7 in. ; Pain 0/10; 04:15 BP 162 / 100; Pulse 71; Resp 18 S; Pulse Ox 100% on R/A; jw7 05:15 BP 164 / 94; Pulse 58; Resp 15 S; Pulse Ox 99% on R/A; jw7 06:30 BP 167 / 92; Pulse 56; Resp 14 S; Pulse Ox 99% on R/A; jw7 07:48 BP 134 / 84; Pulse 55; Resp 14; Pulse Ox 100% ; ko1 03:37 Body Mass Index 18.31 (48.40 kg, 162.56 cm) jw7 03:37 Pain Scale: Adult jw7 [place] Coma Score: 04:40 Eye Response: spontaneous(4). Motor Response: obeys commands(6). Verbal Response: jami oriented(5). Total: 15. ED Course: 03:33 Patient arrived in ED. vc1 03:36 Jenny Huang, RN is Primary Nurse. jw7 03:39 Triage completed. jw7 03:40 Patient has correct armband on for positive identification. Bed in low position. Call [facility] light in reach. Side rails up X2. 03:40 Arm band placed on. jw7 03:46 Lanre Schroeder MD is Attending Physician. jami 04:09 XRAY Chest (1 view) In Process Unspecified. EDMS 04:09 US Extremity Venous W Compression Mitchell In Process Unspecified. EDMS 04:20 Inserted saline lock: 22 gauge in left forearm, using aseptic technique. Blood pf1 collected. 04:25 Basic Metabolic Panel Sent. pf1 04:25 CBC with Diff Sent. pf1 04:25 LFT's Sent. pf1 04:25 Magnesium Sent. pf1 04:25 NT PRO-BNP Sent. pf1 04:25 PT-INR Sent. pf1 04:25 Troponin HS Sent. pf1 04:54 Basic Metabolic Panel Sent. pf1 04:54 LFT's Sent. pf1 04:54 Magnesium Sent. pf1 04:54 NT PRO-BNP Sent. pf1 04:54 Troponin HS Sent. pf1 04:57 CT Chest Abdomen Pelvis W/O Contrast In Process Unspecified. EDMS 05:27 Jennifer Chakraborty MD is Hospitalizing Provider. jami 06:49 Cleaned of incontinence. jw7 07:48 Patient admitted, IV remains in place. ko1 07:48 No provider procedures requiring assistance completed. ko1 07:48 Provided Education on: admit to hospital. Client placed on continuous cardiac and pulse ko1 oximetry monitoring. NIBP monitoring applied. maintenance clerk on. Door closed. Noise minimized. Lights dimmed. Warm blanket given. Pillow given. Head of bed elevated. Turned to left side. Administered Medications: 03:51 CANCELLED (Duplicate Order): NS 0.9% IV 500 ml IV at bolus once jami 03:51 CANCELLED (Duplicate Order): NS 0.9% IV 1000 ml IV at 125 ml/hr continuous jami 05:59 Drug: Potassium PO Effervescent Tablet 25 mEq Route: PO; jw7 06:44 Follow up: Response: No adverse reaction jw7 05:59 Drug: Aspirin PO Chewable Tablet 162 mg Route: PO; jw7 06:44 Follow up: Response: No adverse reaction jw7 05:59 Drug: Clopidogrel PO 75 mg Route: PO; jw7 06:44 Follow up: Response: No adverse reaction jw7 05:59 Drug: Lovenox Sub-Q 40 mg Route: Sub-Q; Site: abdomen; jw7 06:44 Follow up: Response: No adverse reaction jw7 05:59 Drug: Famotidine IVP 20 mg Route: IVP; Site: left antecubital; jw7 06:44 Follow up: Response: No adverse reaction jw7 05:59 Drug: Metoprolol PO 25 mg Route: PO; jw7 06:47 Follow up: Response: No adverse reaction jw7 06:39 Drug: Norvasc PO 10 mg Route: PO; jw7 06:58 Follow up: Response: No adverse reaction; Marked relief of symptoms jw7 06:40 Drug: cloNIDine PO 0.1 mg Route: PO; jw7 06:58 Follow up: Response: No adverse reaction; Marked relief of symptoms jw7 06:44 Drug: Nitroglycerin Transdermal Ointment 2 % 0.5 inches Route: Transdermal; Site: [facility] anterior chest wall; 06:58 Follow up: Response: No adverse reaction; Marked relief of symptoms jw7 Medication: 07:48 VIS not applicable for this client. ko1 Outcome: 05:30 Decision to Hospitalize by Provider. jami 07:48 Condition: stable ko1 07:48 Instructed on the need for admit. 11:42 Admitted to Tele accompanied by tech, room 231, with chart, Report called to claudia Moreno RN 11:56 Patient left the ED. claudia Signatures: Dispatcher [employer] EDIA Lanre Schroeder MD MD cha Calcote, Vanessa RN RN vc1 Jenny Huang RN RN jw7 Anai Eduardo RN RN ko1 Sugey Velazquez RN RN pf1 Corrections: (The following items were deleted from the chart) 05:19 05:18 Patient has correct armband on for positive identification. Bed in low position. jw7 Call light in reach. Side rails up X2. jw7 :19 04:00 Patient has correct armband on for positive identification. Bed in low position. jw7 Call light in reach. Side rails up X2. jw7 05:20 05:18 Abuse screen: Denies threats or abuse. Denies injuries from another. jw7 7 05:20 05:18 [facility] ED Fall Risk Assessment (Adult) History of falling in the last 3 months, jw7 including since admission No falls in past 3 months (0 pts) Confusion or Disorientation No (0 pts) Intoxicated or Sedated No (0 pts) Impaired Gait Yes (1 pt) Mobility Assist Device Used No (0 pt) Altered Elimination No (0 pt) Score/Fall Risk Level 0 - 2 = Low Risk Oriented to surroundings, Maintained a safe environment, jw7 :20 05:18 Nutritional screening: No deficits noted. jw7 7 05:20 05:18 Tuberculosis screening: No symptoms or risk factors identified. jw7 7 05:28 05:22 Immunization history: Client reports receiving the 2nd dose of the Covid vaccine, jw7 7 05:29 05:29 General: See triage assessment. jw7 7 05:32 04:15 BP 164 / 94; Pulse 58bpm; Resp 15bpm; Spontaneous; Pulse Ox 99% RA; jw7 jw7
--- NOTE | 2023-03-20 05:30 | EDPHYS ---
Physician Documentation [facility] Name: Aravind Low Age: 72 yrs Sex: Male : 1950 Arrival Date: 03/20/2023 Time: 03:30 Bed 13 Private MD: DANAY Physician Lanre Schroeder HPI: 03/20 04:39 This 72 yrs old Black Male presents to ER via EMS with complaints of Leg Pain. jami 04:39 The patient presents with pain, that is acute. The complaints affect the right leg and jami left leg. Context: The problem was sustained at home, resulted from an unknown cause, the patient can partially bear weight. Onset: The symptoms/episode began/occurred today, last night. Modifying factors: The symptoms are alleviated by nothing. the symptoms are aggravated by nothing. Associated signs and symptoms: The patient has no apparent associated signs or symptoms. Treatment prior to arrival includes: no previous treatment. Severity of symptoms: At their worst the symptoms were mild, in the emergency department the symptoms are unchanged. The patient has experienced similar episodes in the past, a few times. Historical: - Allergies: 05:23 No Known Allergies; jw7 - Home Meds: 05:23 amlodipine oral [Active]; aspirin 81 mg Oral cap 1 cap once daily [Active]; jw7 atorvastatin Oral [Active]; Clonidine Oral [Active]; clopidogrel Oral [Active]; Hydralazine Oral [Active]; Metoprolol Tartrate Oral [Active]; olanzapine Oral [Active]; Sodium Bicarbonate Oral [Active]; - PMHx: 05:23 CVA; Dementia; ESRD; Gout; Hypertension; kidney cancer; jw7 - PSHx: 05:23 kidney removal; jw7 - Immunization history:: Client reports receiving the 2nd dose of the Covid vaccine. - Family history:: not pertinent. - Social history:: Smoking status: unknown. ROS: 04:40 Constitutional: Negative for fever, chills, and weight loss, Eyes: Negative for injury, jami pain, redness, and discharge, ENT: Negative for injury, pain, and discharge, Neck: Negative for injury, pain, and swelling, Cardiovascular: Negative for chest pain, palpitations, and edema, Respiratory: Negative for shortness of breath, cough, wheezing, and pleuritic chest pain, Abdomen/GI: Negative for abdominal pain, nausea, vomiting, diarrhea, and constipation, Back: Negative for injury and pain, : Negative for injury, bleeding, discharge, and swelling, Skin: Negative for injury, rash, and discoloration, Neuro: Negative for headache, weakness, numbness, tingling, and seizure, Psych: Negative for depression, anxiety, suicide ideation, homicidal ideation, and hallucinations, Allergy/Immunology: Negative for hives, rash, and allergies, Endocrine: Negative for neck swelling, polydipsia, polyuria, polyphagia, and marked weight changes, Hematologic/Lymphatic: Negative for swollen nodes, abnormal bleeding, and unusual bruising. 04:40 MS/extremity: Positive for pain, of the right leg and left leg. Exam: 04:40 Constitutional: This is a well developed, well nourished patient who is awake, alert, jami and in no acute distress. Head/Face: Normocephalic, atraumatic. Eyes: Pupils equal round and reactive to light, extra-ocular motions intact. Lids and lashes normal. Conjunctiva and sclera are non-icteric and not injected. Cornea within normal limits. Periorbital areas with no swelling, redness, or edema. ENT: Nares patent. No nasal discharge, no septal abnormalities noted. Tympanic membranes are normal and external auditory canals are clear. Oropharynx with no redness, swelling, or masses, exudates, or evidence of obstruction, uvula midline. Mucous membranes moist. Neck: Trachea midline, no thyromegaly or masses palpated, and no cervical lymphadenopathy. Supple, full range of motion without nuchal rigidity, or vertebral point tenderness. No Meningismus. Chest/axilla: Normal chest wall appearance and motion. Nontender with no deformity. No lesions are appreciated. Cardiovascular: Regular rate and rhythm with a normal S1 and S2. No gallops, murmurs, or rubs. Normal PMI, no JVD. No pulse deficits. Respiratory: Lungs have equal breath sounds bilaterally, clear to auscultation and percussion. No rales, rhonchi or wheezes noted. No increased work of breathing, no retractions or nasal flaring. Abdomen/GI: Soft, non-tender, with normal bowel sounds. No distension or tympany. No guarding or rebound. No evidence of tenderness throughout. Back: No spinal tenderness. No costovertebral tenderness. Full range of motion. Male : Normal genitalia with no discharge or lesions. Skin: Warm, dry with normal turgor. Normal color with no rashes, no lesions, and no evidence of cellulitis. MS/ Extremity: Pulses equal, no cyanosis. Neurovascular intact. Full, normal range of motion. Neuro: Awake and alert, GCS 15, oriented to person, place, time, and situation. Cranial nerves II-XII grossly intact. Motor strength 5/5 in all extremities. Sensory grossly intact. Cerebellar exam normal. Normal gait. Psych: Awake, alert, with orientation to person, place and time. Behavior, mood, and affect are within normal limits. 04:40 ECG was reviewed by the Attending Physician. Vital Signs: 03:37 BP 157 / 94; Pulse 73; Resp 16 S; Pulse Ox 100% on R/A; Weight 48.4 kg; Height 5 ft. 4 jw7 in. ; Pain 0/10; 04:15 BP 162 / 100; Pulse 71; Resp 18 S; Pulse Ox 100% on R/A; jw7 05:15 BP 164 / 94; Pulse 58; Resp 15 S; Pulse Ox 99% on R/A; jw7 06:30 BP 167 / 92; Pulse 56; Resp 14 S; Pulse Ox 99% on R/A; jw7 07:48 BP 134 / 84; Pulse 55; Resp 14; Pulse Ox 100% ; ko1 03:37 Body Mass Index 18.31 (48.40 kg, 162.56 cm) [facility] 03:37 Pain Scale: Adult jw7 [place] Coma Score: 04:40 Eye Response: spontaneous(4). Motor Response: obeys commands(6). Verbal Response: jami oriented(5). Total: 15. MDM: 03:46 Patient medically screened. [facility] 04:42 Differential diagnosis: contusion, tendonitis. Data reviewed: vital signs, nurses jami notes, EMS record, lab test result(s), EKG, radiologic studies, doppler, plain films. Consideration of Admission/Observation Escalation of care including admission/observation considered. I considered the following discharge prescriptions or medication management in the emergency department Medications were administered in the Emergency Department. See MAR. Test considered but Not performed: Ultrasound no arterial doppler. Historians other than the Patient: EMS: ems informed. Care significantly affected by the following chronic conditions: Diabetes, Hypertension, dementia. Counseling: I had a detailed discussion with the patient and/or guardian regarding the historical points, exam findings, and any diagnostic results supporting the discharge/admit diagnosis, the presence of at least one elevated blood pressure reading (>120/80) during this emergency department visit, lab results, radiology results, the need for outpatient follow up. 03/20 03:48 Order name: Basic Metabolic Panel; Complete Time: 05:23 [facility] 03/20 03:48 Order name: CBC with Diff; Complete Time: 05:23 [facility] 03/20 03:48 Order name: LFT's; Complete Time: 05:23 [facility] 03/20 03:48 Order name: Magnesium; Complete Time: 05:23 [facility] 03/20 03:48 Order name: NT PRO-BNP; Complete Time: 05:23 [facility] 03/20 03:48 Order name: PT-INR; Complete Time: 04:57 [facility] 03/20 03:48 Order name: Troponin HS; Complete Time: 05:23 [facility] 03/20 03:48 Order name: Urinalysis w/ reflexes 03/20 03:48 Order name: XRAY Chest (1 view) 03/20 03:48 Order name: US Extremity Venous W Compression [place] 03/20 03:51 Order name: CT Chest Abdomen Pelvis W/O Contrast [facility] 03/20 03:48 Order name: EKG; Complete Time: 03:49 [facility] 03/20 03:48 Order name: Cardiac monitoring; Complete Time: 04:25 [facility] 03/20 03:48 Order name: EKG - Nurse/Tech; Complete Time: 04:25 [facility] 03/20 03:48 Order name: IV Saline Lock; Complete Time: 04:25 [facility] 03/20 03:48 Order name: Labs collected and sent; Complete Time: 04:25 [facility] 03/20 03:48 Order name: O2 Per Protocol; Complete Time: 04:25 [facility] 03/20 03:48 Order name: O2 Sat Monitoring; Complete Time: 04:25 [facility] EC:40 Rate is 75 beats/min. Rhythm is regular. QRS [place] is Normal. [place] interval is normal. QRS jami interval is normal. QT interval is normal. No Q waves. T waves are Normal. No ST changes noted. Clinical impression: NSR w/ Non-specific ST/T Changes, LVH, and No evidence of ischemia. Interpreted by me. Reviewed by me. Administered Medications: 03:51 CANCELLED (Duplicate Order): NS 0.9% IV 500 ml IV at bolus once jami 03:51 CANCELLED (Duplicate Order): NS 0.9% IV 1000 ml IV at 125 ml/hr continuous jami 05:59 Drug: Potassium PO Effervescent Tablet 25 mEq Route: PO; jw7 06:44 Follow up: Response: No adverse reaction jw7 05:59 Drug: Aspirin PO Chewable Tablet 162 mg Route: PO; jw7 06:44 Follow up: Response: No adverse reaction jw7 05:59 Drug: Clopidogrel PO 75 mg Route: PO; jw7 06:44 Follow up: Response: No adverse reaction jw7 05:59 Drug: Lovenox Sub-Q 40 mg Route: Sub-Q; Site: abdomen; jw7 06:44 Follow up: Response: No adverse reaction jw7 05:59 Drug: Famotidine IVP 20 mg Route: IVP; Site: left antecubital; jw7 06:44 Follow up: Response: No adverse reaction jw7 05:59 Drug: Metoprolol PO 25 mg Route: PO; jw7 06:47 Follow up: Response: No adverse reaction jw7 06:39 Drug: Norvasc PO 10 mg Route: PO; jw7 06:58 Follow up: Response: No adverse reaction; Marked relief of symptoms jw7 06:40 Drug: cloNIDine PO 0.1 mg Route: PO; jw7 06:58 Follow up: Response: No adverse reaction; Marked relief of symptoms jw7 06:44 Drug: Nitroglycerin Transdermal Ointment 2 % 0.5 inches Route: Transdermal; Site: [facility] anterior chest wall; 06:58 Follow up: Response: No adverse reaction; Marked relief of symptoms jw7 Disposition Summary: 03/20/23 05:30 Hospitalization Ordered Hospitalization Status: Observation jami Provider: Jennifer Chakraborty cha Location: Telemetry/MedSurg (observation) jami Condition: Stable jami Problem: new jami Symptoms: have improved jami Bed/Room Type: Standard jami Room Assignment: 231(03/20/23 11:35) ll1 Diagnosis - Pain in right leg jami - Pain in left leg jami - Unspecified kidney failure - chronic jami - Essential (primary) hypertension jami - Abnormal levels of other serum enzymes - elevated troponin jami - Anemia, unspecified jami Discharge Instructions: - Discharge Summary Sheet jami - Dementia jaim - Musculoskeletal Pain jami - Pain Without a Known Cause jami - Vascular Dementia jami - Dementia, [id number] jami - Dementia Caregiver Guide jami Forms: - Medication Reconciliation Form jami - SBAR form jami - Leadership Thank You Letter jami Signatures: Dispatcher [employer] EDLanre Henning MD MD cha Lewis, Lynsay RN RN ll1 Jenny Huang RN RN jw7 Anai Eduardo RN RN ko1 Corrections: (The following items were deleted from the chart) 03:51 03:48 NS 0.9% IV 500 ml IV at bolus once ordered. jami jami 03:51 03:48 NS 0.9% IV 1000 ml IV at 125 ml/hr continuous ordered. jami jami 04:13 03:49 Angio Aorta For Dissection+CT.RAD.BRZ ordered. EDMS EDMS 05:28 05:22 Immunization history: Client reports receiving the 2nd dose of the Covid vaccine, jw7 jw7 11:35 05:30 jami 1
[2023-03-20] MEDS ORDERED: ASPIRIN 81 MG CHEWABLE TABLET ONE (05:51)
[2023-03-20] MEDS ORDERED: CLOPIDOGREL 75 MG TABLET ONE (05:51)
[2023-03-20] MEDS ORDERED: POTASSIUM 25 MEQ EFFERV TAB ONE (05:52)
[2023-03-20] MEDS ORDERED: METOPROLOL TAR 25 MG TAB ONE (05:52)
[2023-03-20] MEDS ORDERED: ENOXAPARIN 40 MG/0.4 ML SQ ONE (05:52)
[2023-03-20] MEDS ORDERED: FAMOTIDINE 20 MG/2 ML VIAL IV ONE (05:53)
[2023-03-20] MEDS ORDERED: NITROGLYCERIN 1 GM PKT TD ONE (06:46)
[2023-03-20] MEDS ORDERED: cloNIDine HCL 0.1 MG TAB ONE (06:46)
[2023-03-20] MEDS ORDERED: AMLODIPINE 10 MG TAB ONE (06:47)
[2023-03-20] MEDS ORDERED: ACETAMINOPHEN 325 MG TABLET PO PRN (08:47)
[2023-03-20] MEDS ORDERED: HYDROCODONE/APAP 10/325 TAB PO PRN (08:47)
[2023-03-20] MEDS: ASPIRIN 81 MG CHEWABLE TABLET PO SCH (09:00)
[2023-03-20] MEDS ORDERED: ONDANSETRON 4 MG/2 ML VIAL IV PRN (11:24)
--- NOTE | 2023-03-20 11:28 | P.HP ---
Certification for Inpatient Patient admitted to: Inpatient With expected LOS: >2 Midnights Patient will require the following post-hospital care: None Practitioner: I am a practitioner with admitting privileges, knowledge of patient current condition, hospital course, and medical plan of care. Services: Services provided to patient in accordance with Admission requirements found in Title 42 Section 412.3 of the Code of Federal Regulations Patient History Date of Service: 03/20/23 Reason for admission: bilateral leg pain History of Present Illness: Patient is a 72-year-old male with a past medical history significant for hypertension, CVA, dementia, gout, hypertension who presents with complaint of right and left leg pain. Patient is alert and oriented x1 and unable to provide any history. Patient's spouse reported that patient started complaining of bilteral leg pain yesterday. Patient contracted on bilateral lower extremities. No other signs and symptoms reported. Symptoms are aggravated or relieved by nothing. Patient was brought to the hospital for medical evaluation. Allergies No Known Allergies Allergy (Verified 05/08/19 18:47) Home Medications: Amlodipine [Norvasc*] 5 mg PO DAILY 08/06/22 Aspirin [Aspirin EC] 81 mg PO DAILY #30 tab 08/12/22 Sodium Bicarbonate 1,300 mg PO BID #120 tab 08/12/22 Clonidine HCl [Catapres*] 0.2 mg PO TID #90 tab 08/22/22 Atorvastatin Calcium [Lipitor] 10 mg PO BEDTIME 01/17/23 Polyethylene Glycol 3350 [Miralax] 17 gm PO DAILY 01/17/23 carvediloL [Coreg*] 25 mg PO BID 01/17/23 Hydralazine HCl 100 mg PO TID 30 Days #90 tab 01/18/23 - Past Medical/Surgical History Diabetic: No -: Hypertension -: Chronic renal disease, stage IV -: History left renal mass with nephrectomy -: gout -: Left nephrectomy Psychosocial/ Personal History: Patient is - Family History Mother -: Hypertension Brother -: Heart disease Notes: deseased from mi Father Notes: dementia Sister -: Diabetes uncle -: Cancer Notes: prostate - Social History Smoking Status: Unknown if ever smoked Alcohol use: No CD- Drugs: No Caffeine use: No Place of Residence: Home Review of Systems is unable to be obtained (Patient unable to provide history. Patient) Physical Examination - Physical Exam General: Oriented x1, Cooperative, Confused HEENT: Atraumatic, PERRLA, Mucous membr. moist/pink, EOMI, Sclerae nonicteric Neck: Supple, 2+ carotid pulse no bruit, No LAD, Without JVD or thyroid abnormality Respiratory: Clear to auscultation bilaterally, Normal air movement Cardiovascular: No edema, Regular rate/rhythm, Normal S1 S2 Capillary refill: <2 Seconds Gastrointestinal: Normal bowel sounds, Non-distended, No tenderness Musculoskeletal: Contractures Integumentary: No rashes, No significant lesion Neurological: Normal speech, Normal tone, Normal affect Lymphatics: No axilla or inguinal lymphadenopathy - Studies Laboratory Data (last 24 hrs) 03/20/23 03/20/23 03/20/23 04:15 04:15 04:15 WBC 4.30 Hgb 12.2 L Hct 35.4 L Plt Count 294 PT 10.5 INR 0.95 Sodium 139 Potassium 3.4 L BUN 35 H Creatinine 2.71 H Glucose 96 Magnesium 2.2 Total Bilirubin 0.3 AST 17 ALT 25 Alkaline Phosphatase 53 Assessment and Plan - Plan --- Bilateral lower extremity pain. Doppler ultrasound does not indicate any evidence of DVT. We will manage pain on current pain medication regimen. --Constipation. CT imaging indicates large amount of stool distending the rectum. Patient placed on laxatives. --Elevated troponin. Likely secondary to demand ischemia. Cardiology consulted. Will await further recommendations. We will continue to trend serial troponin. -- CKD 4. Nephrology consulted. Will await further recommendations. --Acute on chronic diastolic CHF exacerbation. Continue diuresis with Lasix. Daily weight and strict I/O. Further management per psychiatric clinician. --Dementia. Stable. Continue home medication. --Hypertension. Poorly controlled. Continue home medications and hydralazine as needed. --History of CVA. Continue aspirin and statin.. --Hyperlipidemia. Continue statin. ---DVT prophylaxis with Lovenox subQ. Discharge Plan: Home Plan to discharge in: Greater than 2 days - Advance Directives Does patient have a Living Will: No Does patient have a Durable POA for Healthcare: No - Code Status/Comfort Care Code Status Assessed: Yes Physician Review: Patient Assessed, Agree with Above Assessment and Plan Critical Care: No
[2023-03-20] MEDS ORDERED: FUROSEMIDE 40 MG/4 ML VIAL IV SCH (12:00)
[2023-03-20 12:28] VITALS: O2SAT 100
[2023-03-20 12:42] VITALS: BMI 18.3
[2023-03-20] MEDS ORDERED: POTASSIUM CL SA 10 MEQ TAB PO ONE (12:46)
[2023-03-20] MEDS: FUROSEMIDE 40 MG/4 ML VIAL IV SCH (12:48)
--- NOTE | 2023-03-20 13:48 | CON ---
Date of Consultation: 03/20/2023 Reason For Consultation: Elevated BUN and creatinine, fluid management. History Of Present Illness: This is a pleasant 72-year-old gentleman, well known to me from the [facility] with significant past medical history of chronic kidney disease stage 4 secondary to hypertension nephrosclerosis, renal mass loss, left nephrectomy. Baseline creatinine is 2.9 with GFR of 22 as of January , hyperlipidemia, dementia, the patient came to the hospital with atypical chest pain and shortness of breath, found to have elevation in BUN and creatinine. For that reason, we have bolivar kohler consulted. The patient also found to have elevated troponin. The patient was admitted for non-ST elevation IA. Reviewing the record for the patient, the patient's creatinine hovering around, GFR of 21, and creatinine of 2.9 as of January . Past Medical History: Includes; 1.Chronic kidney disease secondary to renal mass secondary to left nephrectomy, hypertension nephros clerosis, small right kidney, baseline creatinine 2.9, GFR of 22, hypertension. 2.CVA. 3.Dementia. 4.CAD complicated with congestive heart failure. 5.Gout. Allergies: NO KNOWN DRUGS ALLERGY. Family History: Positive for hypertension and CAD. Social History: Denied smoking, denied drinking, denied drugs abuse. Home Medications: Include sodium bicarb 1300 b.i.d., carvedilol, hydralazine, clonidine, atorvastati n, aspirin, amlodipine. Current Medications: Include Tylenol, aspirin, Lovenox, Lasix, Zofran, and sodium chloride. Review of Systems: None obtainable. The patient confused. Physical Examination: Vital Signs: When I saw the patient; blood pressure of 157/94, pulse of 73, afebrile. Chest: Clear to auscultation. Heart: S1, S2. Systolic murmur. Abdomen: Soft, nontender. Extremity: No edema. Neurologic: Alert, pleasantly confused. Laboratory Data: Echocardiogram done in January, ejection fraction of 88% with diastolic dysfunction. Back in January; creatinine 2.9, GFR 22. Today lab data; sodium 139, potassium 3.4, bicarb 26, BUN 35, creatinine 2.7, GFR 24. WBC 4.3, H and H 12.2/35.4. Urinalysis still pending. Assessment And Plan: 1.Acute chronic kidney disease, stage 4 secondary to renal mass loss/cardiorenal/hypertension nephro sclerosis, normal volume. I am going to continue current diuresis dose and we will monitor the patie nt. 2.Hypertension, controlled, optimal. Continue current treatment. 3.Hypokalemia. We will supplement. 4.Non-ST elevation myocardial infarction with congestive heart failure exacerbation as by Cardiology . We will follow up with primary. 5.Dementia. Continue supportive care. 6.Congestive heart failure with exacerbation as by Cardiology. We will optimize the fluid status. DULCE MARIA/KOLE Voice ID: [id number] Report ID: [id number]
[2023-03-20 13:56] LABS: Magnesium 2.3 mg/dL (1.6-2.4); Phosphorus 3.3 mg/dL (2.5-4.9); Thyroid Stimulating Hormone 1.48 uIU/mL (0.358-3.740)
--- NOTE | 2023-03-20 16:43 | EKG ---
Test Date: 2023-03-20 Test Time: 04:09:32 Wood Stainer: KHADIJAH MEASUREMENT RESULTS: Intervals: Rate: 75 CT: 170 QRSD: 78 QT: 442 QTc: 493 [place]: P: 83 CT: 170 QRS: 92 T: 68 INTERPRETIVE STATEMENTS: Normal sinus rhythm Rightward axis Moderate voltage criteria for LVH, may be normal variant ST elevation, consider early repolarization, pericarditis, or injury Prolonged QT Abnormal ECG Compared to ECG 03/20/2023 04:07:31 Prolonged QT interval now present ST (T wave) deviation still present Electronically Signed On 03-20-23 16:42:08 CDT by Clark Fuller
--- NOTE | 2023-03-20 16:44 | EKG ---
Test Date: 2023-03-20 Test Time: 04:07:31 Associate Product Manager: KHADIJAH MEASUREMENT RESULTS: Intervals: Rate: 65 NV: 172 QRSD: 96 QT: 452 QTc: 470 [place]: P: 83 NV: 172 QRS: 90 T: 65 INTERPRETIVE STATEMENTS: Normal sinus rhythm Rightward axis Moderate voltage criteria for LVH, may be normal variant ST elevation, consider early repolarization, pericarditis, or injury Nonspecific ST and T wave abnormality Abnormal ECG Compared to ECG 01/15/2023 21:18:06 Right-axis deviation now present Fusion complex(es) no longer present Ventricular premature complex(es) no longer present ST (T wave) deviation still present Electronically Signed On 03-20-23 16:42:10 CDT by Clark Fuller
[2023-03-20] MEDS ORDERED: HYDRALAZINE HCL 20 MG/ML VIAL IV PRN (17:41)
--- NOTE | 2023-03-20 18:54 | CON ---
Date of Consultation: 03/20/2023 Reason For Consultation: Elevated troponin. History Of Present Illness: A 72-year-old male, history of hypertension, dementia, CVA, coming in wi th pain of lower extremities. The patient is confused. I could not get any history from him, but as per , he reported to the staff in the emergency room that he was having pain in his lower extrem ities. Past Medical History: As outlined above in the HPI. Medications: Refer to reconciliation sheet for detailed list. Allergies: NO KNOWN DRUG ALLERGIES. Family History: No premature coronary artery disease or cancer. Social History: He does not smoke or drink. Does not use any drugs. Review of Systems: All systems reviewed and they were negative except what mentioned in HPI. Physical Examination: Vital Signs: Reviewed. Head and Neck: Pupils are equal, reactive to light. Intact eye movements. No JVD. No cervical lym phadenopathy. Neck is supple. Thyroid is not enlarged. Lungs: Clear to auscultation bilaterally. No rhonchi, wheezing, or crackles. No accessory muscle u se. Heart: Irregular. No extra sounds. Abdomen: Soft, nontender. Bowel sounds positive. No organomegaly. No masses or hernia. No rigidi ty or rebound. Extremities: No clubbing or cyanosis. Intact pulses. Skin: No rash or nodules. Neurologic: Alert, awake. No acute focal deficits appreciated. He is confused. Assessment And Recommendations: 1.Elevated troponin 99 and then 285. He has chronic kidney disease. No chest pain. The patient is with advanced dementia. I will refrain from doing any aggressive workup at this point, just obtain an echo to let see the heart function if there is any wall motion abnormalities and then we will plan accordingly. 2.Bilateral lower extremity pain. Recommend obtaining a venous and arterial Doppler to further eval uate. 3.Chronic kidney failure. Creatinine is stable. Of note, the patient had a coronary angiogram in July this year. He has moderate coronary artery disease, so there is no need to proceed with any workup and canceled the echo. /MODL Voice ID: [id number] Report ID: [id number]
[2023-03-20] MEDS: SENOSIDES 8.6 MG TAB PO SCH (19:01)
[2023-03-20] MEDS: LACTULOSE 20 GM/30 ML UCUP PO SCH (19:01)
[2023-03-21 04:56] LABS: Absolute Lymphocytes (CBC) 1.6 K/uL (0.7-4.9); Hematocrit 34.8 % (39.6-49.0); Lymphocytes % 36.8 % (15.3-44.8); MCV 88.7 fL (80-100); MPV 7.4 fL (7.6-11.3); Platelets 315 thou/uL (152-406); RBC Red Blood Cell Count 3.92 M/uL (4.33-5.43)
[2023-03-21 05:13] LABS: Albumin 2.9 g/dL (3.4-5.0); Phosphorus 3.4 mg/dL (2.5-4.9); Potassium 3.7 mEq/L (3.5-5.1)
[2023-03-21] MEDS ORDERED: POTASSIUM CL SA 10 MEQ TAB PO ONE (09:00)
[2023-03-21] MEDS ORDERED: ENOXAPARIN 30 MG/0.3 ML SQ SCH (09:00)
[2023-03-21] MEDS: LACTULOSE 20 GM/30 ML UCUP PO SCH (10:43)
[2023-03-21] MEDS: SENOSIDES 8.6 MG TAB PO SCH (10:44)
[2023-03-21] MEDS: ASPIRIN 81 MG CHEWABLE TABLET PO SCH (10:44)
[2023-03-21] MEDS: FUROSEMIDE 40 MG/4 ML VIAL IV SCH (10:45)
[2023-03-21] MEDS ORDERED: KCL 20 MEQ/100 mL IVPB 20 MEQ/100 ML BAG IV SCH (11:00)
--- NOTE | 2023-03-21 11:46 | PN ---
Date of Progress Note: 03/21/2023 Subjective: Patient was admitted with chronic kidney disease, acute kidney injury with non-ST elevat ion HI. Upon arrival, patient was diuresed. Physical Examination: Vital Signs: Blood pressure 154/81, pulse of 64, afebrile. Chest: Clear to auscultation. Heart: S1, S2. Regular. Abdomen: Soft, nontender. Extremities: No edema. Neuro: Pleasantly confused. No focality. Laboratory Data: Hemoglobin 12. Sodium 138, potassium 3.7, bicarb 28, BUN 35, creatinine 2.7, calci um 9.4. Phosphorus 3.2. Albumin 2.9. Corrected calcium of 10. Current Medications: The patient on include: 1.Aspirin. 2.Lovenox. 3.Lasix 40 daily. 4.Lactulose. 5.Zofran. 6.Hydrocodone. 7.KCl. Assessment And Plan: 1.Chronic kidney disease, stage 3B/4 secondary to renal mass loss, hypertension nephrosclerosis, sta ble on baseline. We will continue to monitor. I am going to go ahead and change Lasix to oral. 2.Hypertension, controlled, optimal. Continue current medication. 3.Leg swelling secondary to cardiorenal response to current diuresis dose. We will switch to oral. 4.Non-ST elevation myocardial infarction as by Primary. DULCE MARIA/KOLE Voice ID: [id number] Report ID: [id number]
[2023-03-21 16:22] VITALS: BP 137/69; TEMP 97.9
--- NOTE | 2023-03-21 20:28 | PN ---
Date of Progress Note: 03/21/2023 Subjective: Seen by bedside. No complaints. He is much more alert, awake today. Review of Systems: No chest pain, shortness of breath, orthopnea, or cough. No nausea, vomiting, or diarrhea. All othe r systems were reviewed, they were negative. Objective: Vital Signs: Reviewed. Head and Neck: Pupils are equal, reactive to light. Intact eye movements. No JVD. No cervical lym phadenopathy. Neck is supple. Thyroid is not enlarged. Lungs: Clear to auscultation bilaterally. No rhonchi, wheezing, or crackles. No accessory muscle u se. Heart: Regular rate and rhythm. No extra sounds. Abdomen: Soft, nontender. Bowel sounds positive. No organomegaly. No masses or hernia. No rigidi ty or rebound. Extremities: No clubbing or cyanosis. Intact pulses. Skin: No rash. No nodule. Neurologic: Alert, awake, oriented x3. No acute focal deficits appreciated. Investigations: Labs were reviewed. Assessment And Recommendations: 1.Elevated troponin and it is likely demand ischemia. Has no chest pain. No workup is recommended at this point. 2.Chronic kidney failure, and this is stable. Cardiology will sign off and patient can be followed as an outpatient. SR/MODL Voice ID: [id number] Report ID: [id number]
[2023-03-21] MEDS ORDERED: ENSURE ENLIVE 237 ML CAN PO SCH (21:00)
[2023-03-22] MEDS ORDERED: FUROSEMIDE 40 MG TABLET PO SCH (09:00)
== END 2023-03-21 19:20 | disposition home or self-care (01) ==
LOC: ER 03:30 → ERHOLD 08:41 → INTOOBSV 08:41 → 2ND 11:46
PROVIDERS: ADMIT Hospitalist; ATTEND Hospitalist
DX: I50.33 Acute on chronic diastolic (congestive) heart failure (principal); I21.4 Non-ST elevation (NSTEMI) myocardial infarction; N17.9 Acute kidney failure, unspecified; N18.4 Chronic kidney disease, stage 4 (severe); M79.605 Pain in left leg; M79.604 Pain in right leg; K59.00 Constipation, unspecified; I25.10 Atherosclerotic heart disease of native coronary artery without angina pectoris; I13.0 Hypertensive heart and chronic kidney disease with heart failure and stage 1 through stage 4 chronic kidney disease, or unspecified chronic kidney disease; E78.5 Hyperlipidemia, unspecified; F03.90 Unspecified dementia, unspecified severity, without behavioral disturbance, psychotic disturbance, mood disturbance, and anxiety; R77.8 Other specified abnormalities of plasma proteins; M79.89 Other specified soft tissue disorders; D63.1 Anemia in chronic kidney disease; M10.9 Gout, unspecified; E87.6 Hypokalemia; Z86.73 Personal history of transient ischemic attack (TIA), and cerebral infarction without residual deficits; Z79.82 Long term (current) use of aspirin
CPT/HCPCS: 93005 ×2; 85025 ×2; 80048; 36415 ×2; 83735 ×2; 84100; 84132; 85610; 80061; 80076; 80069; 84443; 84484 ×3; 84439; 83880; 71250; 74176; 71045; 93970; 96372; 96374; 99285; J0360; J1940 ×2; J1650 ×2; G0378

== ENCOUNTER 2023-03-29 12:22 | Inpatient (IN) | payer OTHER ==
--- OUTSIDE RECORDS SUMMARY | 2023-03-29 12:27 | XMS REPORT | Continuity of Care Document ---
:1950 Author Organization [facility] t Address [address] [place] [address] Care Team Providers Name Role Phone SHARPLESS [...] Expiration Date [place] guzmán MEDICARE PART A [id number] 2017 \\T\\ B 00:00:00 [employer]IG[employer] PPO [id number] MEDICARE A B [id number] 2017 00:00:00 Problems Condition Condition Condition Status Onset Resolution Last Treating Co mments Source Name Details Category Date Date Treatment Clinician Date Pre-op Pre-op Disease Active [facility] 00 [place] Renal Renal Disease Active [facility] mass, left mass, left 3-27 Sharmaine kes 00:00: Medical 00 [place] Neoplasm Neoplasm Disease Active [facility] [...] Univers ALLERGIE Class ity of S [facility] NO KNOWN Allergy Active NEENA Cota ALLERGJO ANN sarbjit [facility] Social History Social Habit Start Date Stop Date Quantity Comments Source History of tobacco Cigarette Smoker [facility] use [facility] Exposure to 2022-11-17 2022-11-27 Not sure University of SARS-CoV-2 (event) 00:00:00 09:20:00 [facility] Alcohol intake 2017-10-10 2017-10-10 Current drinker [facility] [place] [facility] 00:00:00 00:00:00 of alcohol [facility] (finding) Tobacco use and 2017-10-01 2017-10-01 [address]ok[address] [facility] St Sharmaine kes exposure 00:00:00 00:00:00 tobacco non-user [facility] Cigarettes smoked 2017-10-01 2017-10-[address] [facility] [address] Lusarbjit current (pack per 00:00:00 00:00:00 Medical Center day) - Reported Sex Assigned At [birth year] [facility] 00:00:00 00:00:00 Medical Center Smoking Status Start Date Stop Date Source Tobacco smoking consumption Univ [facility] Smokes tobacco daily 2017-10-01 00:00:00 [facility] Medications Ordered Filled Start Stop Current Ordering Indication Dosage Frequency Signature Comments Components Source Medication Medication Date Date Medication? Clinician (SIG) Name Name LORazepam 2022- No [id number] 1mg 1 mg, U nivers (ATIVAN) 11-27 05-15 Oral, ity of tablet 1 mg 17:30: 15:15 [place], On Medical Mon [facility] 11/27/22 at 1230, Routine LORazepam 2022- No [id number] 1mg 1 mg, U nivers (ATIVAN) 11-27 05-15 Oral, ity of tablet 1 mg 17:30: 15:15 [place] dose, On [facility] Mon Branch 11/27/22 at 1230, Routine furosemide 2018-0 Yes 40mg Take [address] (LASIX) 40 4-01 by mouth [facility] MG tablet 03:27: every Medical 05 other day. Center amLODIPine 2018-0 Yes 10mg QD Take [address] (NORVASC) 4-01 by mouth [facility] 10 MG 03:27: daily. Medical tablet 05 Center cloNIDine 2018-0 Yes .3mg Q.[id number] Take 0.[address] [facility] [address] HCl 4-01 [id number] mg by [facility] (CATAPRES) 03:27: 3D mouth 3 Medi jennifer 0.3 MG 05 (three) Center tablet times daily. cloNIDine 2018-0 Yes .3mg Q.[id number] Take 0.[address] [facility] [address] HCl 4-01 [id number] mg by [facility] (CATAPRES) 03:27: 3D mouth [...] tablet 05 Center cloNIDine 2018-0 Yes .3mg Q.[id number] Take 0.[address] [facility] [address] HCl 4-01 [id number] mg by [facility] (CATAPRES) 03:27: 3D mouth [...] tablet 05 Center cloNIDine 2018-0 Yes .3mg Q.[id number] Take 0.[address] [facility] [address] HCl 4-01 [id number] mg by [facility] (CATAPRES) 03:27: 3D mouth 3 Medi jennifer 0.3 MG 05 (three) Center tablet times daily. furosemide 2018-0 Yes 40mg Take [address] (LASIX) 40 4-01 by mouth [facility] MG tablet 03:27: every Medical 05 other day. [place] amLODIPine 2018-0 Yes 10mg QD Take [address] (NORVASC) 4-01 by mouth [facility] 10 MG 03:27: daily. Medical tablet 05 [place] cloNIDine 2018-0 Yes .3mg Q.[id number] Take 0.[address] HCl 4-01 [id number] mg by [facility] (CATAPRES) 03:27: 3D mouth 3 Medi jennifer 0.3 MG 05 (three) Center tablet times daily. furosemide 2018-0 Yes 40mg Take [address] (LASIX) 40 4-01 by mouth [facility] MG tablet 03:27: every Medical 05 other day. [place] amLODIPine 2018-0 Yes 10mg QD Take [address] (NORVASC) 4-01 by mouth [facility] 10 MG 03:27: daily. Medical tablet 05 [place] cloNIDine 2018-0 Yes .3mg Q.[id number] Take 0.[address] HCl 4-01 [id number] mg by [facility] (CATAPRES) 03:27: 3D mouth 3 Medi jennifer 0.3 MG 05 (three) Center tablet times daily. furosemide 2018-0 Yes 40mg Take [address] (LASIX) 40 4-01 by mouth [facility] MG tablet 03:27: every Medical 05 other day. [place] amLODIPine 2018-0 Yes 10mg QD Take [address] (NORVASC) 4-01 by mouth [facility] 10 MG 03:27: daily. Medical tablet 05 [place] cloNIDine 2018-0 Yes .3mg Q.[id number] Take 0.[address] HCl 4-01 [id number] mg by [facility] (CATAPRES) 03:27: 3D mouth 3 Medi jennifer 0.3 MG 05 (three) Center tablet times daily. furosemide 2018-0 Yes 40mg Take [address] (LASIX) 40 4-01 by mouth [facility] MG tablet 03:27: every Medical 05 other day. [place] amLODIPine 2018-0 Yes 10mg QD Take [address] (NORVASC) 4-01 by mouth [facility] 10 MG 03:27: daily. Medical tablet 05 [place] cloNIDine 2018-0 Yes .3mg Q.[id number] Take 0.[address] HCl 4-01 [id number] mg by [facility] (CATAPRES) 03:27: 3D mouth 3 Medi jennifer 0.3 MG 05 (three) Center tablet times daily. furosemide 2018-0 Yes 40mg Take [address] (LASIX) 40 4-01 by mouth [facility] MG tablet 03:27: every Medical 05 other day. [place] amLODIPine 2018-0 Yes 10mg QD Take [address] (NORVASC) 4-01 by mouth [facility] 10 MG 03:27: daily. Medical tablet 05 [place] cloNIDine 2018-0 Yes .3mg Q.[id number] Take 0.[address] HCl 4-01 [id number] mg by [facility] (CATAPRES) 03:27: 3D mouth 3 Medi jennifer 0.3 MG 05 (three) Center tablet times daily. furosemide 2018-0 Yes 40mg Take [address] (LASIX) 40 4-01 by mouth [facility] MG tablet 03:27: every Medical 05 other day. [place] amLODIPine 2018-0 Yes 10mg QD Take [address] (NORVASC) 4-01 by mouth [facility] 10 MG 03:27: daily. Medical tablet 05 [place] cloNIDine 2018-0 Yes .3mg Q.[id number] Take 0.[address] HCl 4-01 [id number] mg by [facility] (CATAPRES) 03:27: 3D mouth 3 Medi jennifer 0.3 MG 05 (three) Center tablet times daily. furosemide 2018-0 Yes 40mg Take [address] (LASIX) 40 4-01 by mouth [facility] MG tablet 03:27: every Medical 05 other day. [place] amLODIPine 2018-0 Yes 10mg QD Take [address] (NORVASC) 4-01 by mouth [facility] 10 MG 03:27: daily. Medical tablet 05 [place] cloNIDine 2018-0 Yes .3mg Q.[id number] Take 0.[address] HCl 4-01 [id number] mg by [facility] (CATAPRES) 03:27: 3D mouth [...] 10 MG 03:27: daily. Medical tablet 05 [place] cloNIDine 2018-0 Yes .3mg Q.[id number] Take 0.[address] HCl 4-01 [id number] mg by [facility] (CATAPRES) 03:27: 3D mouth 3 Medi jennifer 0.3 MG 05 (three) Center tablet times daily. cloNIDine 2018-0 Yes .3mg Q.[id number] Take 0.[address] HCl 4-01 [id number] mg by [facility] (CATAPRES) 03:27: 3D mouth 3 Medi jennifer 0.3 MG 05 (three) Center tablet times daily. furosemide 2018-0 Yes 40mg Take [address] (LASIX) 40 4-01 by mouth [facility] MG tablet 03:27: every Medical 05 other day. [place] amLODIPine 2018-0 Yes 10mg QD Take [address] (NORVASC) 4-01 by mouth [facility] 10 MG 03:27: daily. Medical tablet 05 [place] furosemide 2018-0 Yes 40mg Take [address] (LASIX) 40 4-01 by mouth [facility] MG tablet 03:27: every Medical 05 other day. [place] amLODIPine 2018-0 Yes 10mg QD Take [address] (NORVASC) 4-01 by mouth [facility] 10 MG 03:27: daily. Medical tablet 05 [place] cloNIDine 2018-0 Yes .3mg Q.[id number] Take 0.[address] HCl 4-01 [id number] mg by [facility] (CATAPRES) 03:27: 3D mouth 3 Medi jennifer 0.3 MG 05 (three) Center tablet times daily. furosemide 2018-0 Yes 40mg Take [address] (LASIX) 40 4-01 by mouth [facility] MG tablet 03:27: every Medical 05 other day. [place] amLODIPine 2018-0 Yes 10mg QD Take [address] (NORVASC) 4-01 by mouth [facility] 10 MG 03:27: daily. Medical tablet 05 [place] cloNIDine 2018-0 Yes .3mg Q.[id number] Take 0.[address] HCl 4-01 [id number] mg by [facility] (CATAPRES) 03:27: 3D mouth 3 Medi jennifer 0.3 MG 05 (three) Center tablet times daily. furosemide 2018-0 Yes 40mg Take [address] (LASIX) 40 4-01 by mouth [facility] MG tablet 03:27: every Medical 05 other day. [place] amLODIPine 2018-0 Yes 10mg QD Take [address] (NORVASC) 4-01 by mouth [facility] 10 MG 03:27: daily. Medical tablet 05 Center cloNIDine 2018-0 Yes .3mg Q.[id number] Take 0.[address] HCl 4-01 [id number] mg by [facility] (CATAPRES) 03:27: 3D mouth 3 Medi jennifer 0.3 MG 05 (three) Center tablet times daily. furosemide 2018-0 Yes 40mg Take [address] (LASIX) 40 4-01 by mouth [facility] MG tablet 03:27: every Medical 05 other day. [place] amLODIPine 2018-0 Yes 10mg QD Take [address] (NORVASC) 4-01 by mouth [facility] 10 MG 03:27: daily. Medical tablet 05 [place] cloNIDine 2018-0 Yes .3mg Q.[id number] Take 0.[address] HCl 4-01 [id number] mg by [facility] (CATAPRES) 03:27: 3D mouth 3 Medi jennifer 0.3 MG 05 (three) Center tablet times daily. furosemide 2018-0 Yes 40mg Take [address] (LASIX) 40 4-01 by mouth [facility] MG tablet 03:27: every Medical 05 other day. [place] amLODIPine 2018-0 Yes 10mg QD Take [address] (NORVASC) 4-01 by mouth [facility] 10 MG 03:27: daily. Medical tablet 05 Center cloNIDine 2018-0 Yes .3mg Q.[id number] Take 0.[address] HCl 4-01 [id number] mg by [facility]ukes (CATAPRES) 03:27: 3D mouth 3 Medi jennifer 0.3 MG 05 (three) Center tablet times daily. furosemide 2018-0 Yes 40mg Take [address] (LASIX) 40 4-01 by mouth [facility] MG tablet 03:27: every Medical 05 other day. [place] amLODIPine 2018-0 Yes 10mg QD Take [address] (NORVASC) 4-01 by mouth [facility] 10 MG 03:27: daily. Medical tablet 05 [place] cloNIDine 2018-0 Yes .3mg Q.[id number] Take 0.[address] HCl 4-01 [id number] mg by [facility]ukes (CATAPRES) 03:27: 3D mouth 3 Medi jennifer 0.3 MG 05 (three) Center tablet times daily. furosemide 2018-0 Yes 40mg Take [address] (LASIX) 40 4-01 by mouth [facility] MG tablet 03:27: every Medical 05 other day. [place] amLODIPine 2018-0 Yes 10mg QD Take [address] (NORVASC) 4-01 by mouth [facility] 10 MG 03:27: daily. Medical tablet 05 [place] cloNIDine 2018-0 Yes .3mg Q.[id number] Take 0.[address] HCl 4-01 [id number] mg by [facility]ukes (CATAPRES) 03:27: 3D mouth 3 Medi jennifer 0.3 MG 05 (three) Center tablet times daily. furosemide 2018-0 Yes 40mg Take [address] (LASIX) 40 4-01 by mouth [facility] MG tablet 03:27: every Medical 05 other day. [place] amLODIPine 2018-0 Yes 10mg QD Take [address] (NORVASC) 4-01 by mouth [facility] 10 MG 03:27: daily. Medical tablet 05 [place] cloNIDine 2018-0 Yes .3mg Q.[id number] Take 0.[address] HCl 4-01 [id number] mg by Lukes (CATAPRES) 03:27: 3D mouth 3 Medi jennifer 0.3 MG 05 (three) Center tablet times daily. furosemide 2018-0 Yes 40mg Take [address] (LASIX) 40 4-01 by mouth [facility] MG tablet 03:27: every Medical 05 other day. [place] amLODIPine 2018-0 Yes 10mg QD Take [address] (NORVASC) 4-01 by mouth [facility] 10 MG 03:27: daily. Medical tablet 05 [place] cloNIDine 2018-0 Yes .3mg Q.[id number] Take 0.[address] HCl 4-01 [id number] mg by [facility] (CATAPRES) 03:27: 3D mouth 3 Medi jennifer 0.3 MG 05 (three) Center tablet times daily. furosemide 2018-0 Yes 40mg Take [address] (LASIX) 40 4-01 by mouth [facility] MG tablet 03:27: every Medical 05 other day. [place] amLODIPine 2018-0 Yes 10mg QD Take [address] (NORVASC) 4-01 by mouth [facility] 10 MG 03:27: daily. Medical tablet 05 [place] cloNIDine 2018-0 Yes .3mg Q.[id number] Take 0.[address] HCl 4-01 [id number] mg by [facility] (CATAPRES) 03:27: 3D mouth 3 Medi jennifer 0.3 MG 05 (three) Center tablet times daily. furosemide 2018-0 Yes 40mg Take [address] (LASIX) 40 4-01 by mouth [facility] MG tablet 03:27: every Medical 05 other day. [place] amLODIPine 2018-0 Yes 10mg QD Take [address] (NORVASC) 4-01 by mouth [facility] 10 MG 03:27: daily. Medical tablet 05 [place] cloNIDine 2018-0 Yes .3mg Q.[id number] Take 0.[address] HCl 4-01 [id number] mg by [facility] (CATAPRES) 03:27: 3D mouth 3 Medi jennifer 0.3 MG 05 (three) Center tablet times daily. furosemide 2018-0 Yes 40mg Take [address] (LASIX) 40 4-01 by mouth [facility] MG tablet 03:27: every Medical 05 other day. [place] amLODIPine 2018-0 Yes 10mg QD Take [address] (NORVASC) 4-01 by mouth [facility] 10 MG 03:27: daily. Medical tablet 05 [place] cloNIDine 2018-0 Yes .3mg Q.29744765 Take 0.[address] HCl 4-01 [id number] mg by [facility] (CATAPRES) 03:27: 3D mouth 3 Medi jennifer 0.3 MG 05 (three) Center tablet times daily. Immunizations Ordered Filled Immunization Date Status Comments [facility] Immunization Name Name SARS-COV-2 COVID-19 2020-09-28 Completed Unive rsity of PFIZER VACCINE 00:00:00 [facility] SARS-COV-2 COVID-19 2020-09-28 Completed Unive rsity of PFIZER VACCINE 00:00:00 [facility] SARS-COV-2 COVID-19 2020-09-07 Completed Unive rsity of PFIZER VACCINE 00:00:00 [facility] SARS-COV-2 COVID-19 2020-09-07 Completed Unive rsity of PFIZER VACCINE 00:00:00 [facility] Vital Signs Vital Name Observation Time Observation Value Comments Source Systolic blood 2022-11-27 15:10:00 172 mm[Hg] Univer sity of pressure [facility] Diastolic blood 2022-11-27 15:10:00 109 mm[Hg] Unive rsity of pressure [facility] Heart rate 2022-11-27 15:10:00 89 /min [facility] Respiratory rate 2022-11-27 15:10:00 17 /[facility] 2022-11-27 15:10:00 80.74 kg [facility] Oxygen saturation in 2022-11-27 15:10:00 98 /min [facility] Arterial blood by [facility] Pulse oximetry [place] Procedures Procedure Date / Time Performed Performing Clinician Dave e MR BRAIN WO CONTRAST 2022-11-27 16:27:30 Paolo Ly [facility] Plan of Care Planned Activity [...] of 2)] Future Scheduled 1971 DTAP/TDAP/TD VACCINES I St [...] [facility] Test 00:00:00 [code = CT Colonography [facility] (combo)] Future Scheduled 1952 CT Colonography (combo) [facility] Test 00:[facility]:00 [code = CT Colonography [facility] (combo)] Future Scheduled 1952 Screening [facility] malignant [facility] Test 00:00:00 neoplasm of colon Medical Ce nter (procedure) [code = 357256773] Future Scheduled 1952 Screening for malignant [facility] Test 00:00:00 neoplasm of colon Medical Ce nter (procedure) [code = 298803289] Future Scheduled 1952 Screening for malignant [facility] Test 00:00:00 neoplasm of colon Medical Ce nter (procedure) [code = 635423856] Future Scheduled 1952 Screening for malignant [facility] Test 00:00:00 neoplasm of colon Medical Ce nter (procedure) [code = 436668779] Future Scheduled 1952 Sigmoidoscopy [code = [facility] 00:[facility]:00 Sigmoidoscopy] Medical Cente r Future Scheduled 1952 Screening for malignant [facility] Test 00:00:00 neoplasm of colon Medical Ce nter (procedure) [code = 522649738] Future Scheduled 1952 Screening for malignant [facility] Test 00:00:00 neoplasm of colon Medical Ce nter (procedure) [code = 979948549] Future Scheduled 1952 CT Colonography (combo) [facility] Test 00:00:00 [code = CT Colonography Medi jennifer Center (combo)] Future Scheduled 1952 Screening for malignant [facility] Test 00:00:00 neoplasm of colon Medical Ce nter (procedure) [code = 589037656] Future Scheduled 1952 Screening for malignant [facility] Test 00:00:00 neoplasm of colon Medical Ce nter (procedure) [code = 170722414] Future Scheduled 1952 Screening for malignant [facility] Test 00:00:00 neoplasm of colon Medical Ce nter (procedure) [code = 785167908] Future Scheduled 1952 Screening for malignant [facility] Test 00:00:00 neoplasm of colon Medical Ce nter (procedure) [code = 817200271] Future Scheduled 1952 Sigmoidoscopy [code = [facility] 00:[facility]oid[facility]] [facility] Future Scheduled 1952 Screening for malignant [facility] Test 00:00:00 neoplasm of colon Medical Ce nter (procedure) [code = 932771309] Future Scheduled 1952 Screening for malignant [facility] Test 00:00:00 neoplasm of colon Medical Ce nter (procedure) [code = 563656979] Future Scheduled 1952 CT Colonography (combo) [facility] Test 00:00:00 [code = CT Colonography Medi [facility]ennifer Center (combo)] Future Scheduled 1952 Screening for malignant [facility] Test 00:00:00 neoplasm of colon Medical Ce nter (procedure) [code = 461510833] Future Scheduled 1952 Screening [facility] malignant [facility] Test 00:00:00 neoplasm of colon Medical Ce nter (procedure) [code = 151191818] Future Scheduled 1952 Screening [facility] malignant [facility] Test 00:00:00 neoplasm of colon Medical Ce nter (procedure) [code = 594108419] Future Scheduled 1952 Screening for malignant [facility] Test 00:00:00 neoplasm of colon Medical Ce nter (procedure) [code = 136679187] Future Scheduled 1952 Sigmoidoscopy [code = CH [...] colon Medical Ce nter (procedure) [code = 254788541] Future Scheduled 1952 Screening for malignant [facility] Test 00:00:00 neoplasm of colon Medical Ce nter (procedure) [code = 140951156] Future Scheduled 1952 Screening for malignant [facility] Test 00:00:00 neoplasm of colon Medical Ce nter (procedure) [code = 995448793] Future Scheduled 1952 Screening for malignant [facility] Test 00:00:00 neoplasm of colon Medical Ce nter (procedure) [code = 314903115] Future Scheduled 1952 Sigmoidoscopy [code = [facility] 00:00:00 Sigmoidoscopy] Medical Cente r Future Scheduled 1952 CT Colonography (combo) [facility] Test 00:00:00 [code = CT Colonography Medi [facility]enn[facility] Center (combo)] Future Scheduled 1952 Screening for malignant [facility] Test 00:00:00 neoplasm of colon Medical Ce nter (procedure) [code = 478825158] Future Scheduled 1952 Screening for malignant [facility] Test 00:00:00 neoplasm of colon Medical Ce nter (procedure) [code = 741633504] Future Scheduled 1952 Screening [facility] malignant [facility] 00:00:00 neoplasm of colon Medical Ce nter (procedure) [code = 805968854] Future Scheduled 1952 Screening for malignant [facility] Test 00:00:00 neoplasm of colon Medical Ce nter (procedure) [code = 216441851] Future Scheduled 1952 Sigmoidoscopy [code = [facility] 00:00:[facility] Sigmoidoscopy] Medical Cente r Future Scheduled 1952 CT Colonography (combo) [facility] Test 00:00:00 [code = CT Colonography Medi [facility]enn[facility] Center (combo)] Future Scheduled 1952 Screening for malignant [facility] Test 00:00:00 neoplasm of colon Medical Ce nter (procedure) [code = 857650174] Future Scheduled 1952 Screening for malignant [facility] Test 00:00:00 neoplasm of colon Medical Ce nter (procedure) [code = 259478931] Future Scheduled 1952 Screening for malignant [facility] 00:00:00 neoplasm of colon Medical Ce nter (procedure) [code = 535821058] Future Scheduled 1952 Screening for malignant [facility] 00:00:00 neoplasm of colon Medical Ce nter (procedure) [code = 306859336] Future Scheduled 1952 Sigmoidoscopy [code = [facility] 00:00:00 Sigmoidoscopy] Medical Cente r Future Scheduled 1952 CT Colonography (combo) [facility] 00:00:00 [code = CT Colonography Medi [facility] Center (combo)] Future Scheduled 1952 Screening for malignant [facility] Test 00:00:00 neoplasm of colon Medical Ce nter (procedure) [code = 211842038] Future Scheduled 1952 Screening for malignant [facility] Test 00:00:00 neoplasm of colon Medical Ce nter (procedure) [code = 698984895] Future Scheduled 1952 Screening for malignant [facility] 00:00:00 neoplasm of colon Medical Ce nter (procedure) [code = 890395315] Future Scheduled 1952 Screening for malignant [facility] 00:00:00 neoplasm of colon Medical Ce nter (procedure) [code = 554385717] Future Scheduled 1952 Sigmoidoscopy [code = [facility] 00:[facility] Sigmoidoscopy] Medical Manae r Future Scheduled 1952 CT Colonography (combo) [facility] Test 00:00:00 [code = CT Colonography [facility] (combo)] Future Scheduled 1952 Screening for malignant [facility] 00:00:00 neoplasm of colon Medical Ce nter (procedure) [code = 286021640] Future Scheduled 1952 Screening for malignant [facility] 00:00:00 neoplasm of colon Medical Ce nter (procedure) [code = 966126829] Future Scheduled 1952 Screening [facility] malignant [facility] 00:00:00 neoplasm of colon Medical Ce nter (procedure) [code = 919078507] Future Scheduled 1952 Screening for malignant [facility] 00:00:00 neoplasm of colon Medical Ce nter (procedure) [code = 990228733] Future Scheduled 1952 Sigmoidoscopy [code = [facility] 00:[facility] Sigmoidoscopy] Medical Manae r Future Scheduled 1952 CT Colonography (combo) [facility] 00:00:00 [code = CT Colonography [facility] (combo)] Future Scheduled 1952 Screening for malignant [facility] Test 00:00:00 neoplasm of colon Medical Ce nter (procedure) [code = 111305132] Future Scheduled 1952 Screening for malignant [facility] 00:00:00 neoplasm of colon Medical Ce nter (procedure) [code = 963389045] Future Scheduled 1952 Screening for malignant [facility] 00:00:00 neoplasm of colon Medical Ce nter (procedure) [code = 001141030] Future Scheduled 1952 Screening for malignant [facility] 00:00:00 neoplasm of colon Medical Ce nter (procedure) [code = 072491803] Future Scheduled 1952 Sigmoidoscopy [code = [facility] 00:[facility] Sigmoidoscopy] Medical Manae r Future Scheduled 1952 CT Colonography (combo) [facility] Test 00:00:00 [code = CT Colonography Medi [facility] (combo)] Future Scheduled 1952 Screening for malignant [facility] 00:00:00 neoplasm of colon Medical Ce nter (procedure) [code = 566445785] Future Scheduled 1952 Screening for malignant [facility] 00:00:00 neoplasm of colon Medical Ce nter (procedure) [code = 374482080] Future Scheduled 1952 Screening for malignant [facility] 00:00:00 neoplasm of colon Medical Ce nter (procedure) [code = 378694422] Future Scheduled 1952 CT Colonography (combo) [facility] Test 00:00:00 [code = CT Colonography [facility] (combo)] Future Scheduled 1952 Screening for malignant [facility] Test 00:00:00 neoplasm of colon Medical Ce nter (procedure) [code = 759520949] Future Scheduled 1952 Sigmoidoscopy [code = [facility] 00:[facility] Sigmoidoscopy] Medical [facility] Future Scheduled 1952 Screening for malignant [facility] Test 00:00:00 neoplasm of colon Medical Ce nter (procedure) [code = 274692546] Future Scheduled 1952 CT Colonography (combo) [facility] 00:00:00 [code = CT Colonography [facility] (combo)] Future Scheduled 1952 Screening for malignant [facility] 00:00:00 neoplasm of colon Medical Ce nter (procedure) [code = 841942132] Future Scheduled 1952 Screening for malignant [facility] 00:00:00 neoplasm of colon Medical Ce nter (procedure) [code = 585767277] Future Scheduled 1952 Screening for malignant [facility] 00:00:00 neoplasm of colon Medical Ce nter (procedure) [code = 111772238] Future Scheduled 1952 Screening for malignant [facility] 00:00:00 neoplasm of colon Medical Ce nter (procedure) [code = 275360880] Future Scheduled 1952 Screening for malignant [facility] 00:00:00 neoplasm of colon Medical Ce nter (procedure) [code = 783066023] Future Scheduled 1952 Sigmoidoscopy [code = [facility] 00:[facility] Sigmoidoscopy] Medical Cente r Future Scheduled 1952 Screening for malignant [facility] Test 00:00:00 neoplasm of colon Medical Ce nter (procedure) [code = 748499114] Future Scheduled 1952 CT Colonography (combo) [facility] Test 00:00:00 [code = CT Colonography [facility] (combo)] Future Scheduled 1952 Screening for malignant [facility] 00:00:00 neoplasm of colon Medical Ce nter (procedure) [code = 156311572] Future Scheduled 1952 Screening for malignant [facility] Test 00:00:00 neoplasm of colon Medical Ce nter (procedure) [code = 022492969] Future Scheduled 1952 Screening for malignant [facility] 00:00:00 neoplasm of colon Medical Ce nter (procedure) [code = 348800398] Future Scheduled 1950 Screening for malignant [facility] 00:00:00 neoplasm of colon Medical Ce nter (procedure) [code = 246975251] Future Scheduled 1950 Sigmoidoscopy [code = [facility] Future Scheduled 1952 Screening for malignant [facility] 00:00:00 neoplasm of colon Medical Ce [facility] (procedure) [code = 807162938] Future Scheduled 1950 Sigmoidoscopy [code = [facility] S[facility]oscopy] [facility] Cent[facility] Future Scheduled 1952 CT Colonography (combo) [facility] 00:00:00 [code = CT [facility] Future Scheduled 1952 Screening for malignant [facility] 00:00:00 neoplasm of colon Medical Ce [facility]ter (procedure) [code = 080240140] Future Scheduled 1952 Screening for malignant [facility] 00:00:00 neoplasm of colon Medical Ce [facility] (procedure) [code = 283387631] Future Scheduled 1952 Screening for malignant [facility] 00:00:00 neoplasm of colon Medical Ce [facility]ter (procedure) [code = 639848165] Future Scheduled 1952 Screening for malignant [facility] 00:00:00 neoplasm of colon Medical Ce [facility] (procedure) [code = 643904322] Future Scheduled 1950 Sigmoidoscopy [code = [facility]] [facility] Cent[facility] Future Scheduled 1952 CT Colonography (combo) [facility] 00:00:00 [code = CT [facility])] Future Scheduled 1952 Screening for malignant [facility] 00:00:00 neoplasm of colon Medical Ce [facility] (procedure) [code = 298938600] Future Scheduled 1952 Screening for malignant [facility] 00:00:00 neoplasm of colon Medical Ce nter (procedure) [code = 162390749] Future Scheduled 1952 Screening for malignant [facility] 00:00:00 neoplasm of colon Medical Ce [facility]ter (procedure) [code = 447043227] Future Scheduled 1952 Screening for malignant [facility] 00:00:00 neoplasm of colon Medical Ce [facility]ter (procedure) [code = 983694817] Future Scheduled 1950 Sigmoidoscopy [code = [facility] S[facility]oscopy] [facility] Cent[facility] Future Scheduled 1952 CT Colonography (combo) [facility] 00:00:00 [code = CT [facility])] Future Scheduled 1952 Screening for malignant [facility] 00:00:00 neoplasm of colon Medical Ce [facility]ter (procedure) [code = 934893485] Future Scheduled 1952 Screening for malignant [facility] 00:00:00 neoplasm of colon Medical Ce [facility]ter (procedure) [code = 141393961] Future Scheduled 1952 Screening for malignant [facility] 00:00:00 neoplasm of colon Medical Ce [facility]ter (procedure) [code = 876704491] Future Scheduled 1952 Screening for malignant [facility] 00:00:00 neoplasm of colon Medical Ce [facility] (procedure) [code = 212228087] Future Scheduled 1952 Sigmoidoscopy [code = [facility] 00:[facility] S[facility]oscopy] Medical Cent[facility] r Future Scheduled 1952 CT Colonography (combo) [facility] 00:00:00 [code = CT Colonography [facility] (combo)] Future Scheduled 1952 Screening for malignant [facility] 00:00:00 neoplasm of colon Medical Ce nter (procedure) [code = 327154572] Future Scheduled 1952 Screening for malignant [facility] 00:00:00 neoplasm of colon Medical Ce [facility]ter (procedure) [code = 055176259] Future Scheduled 1952 Screening for malignant [facility] 00:00:00 neoplasm of colon Medical Ce [facility]ter (procedure) [code = 717567036] Future Scheduled 1952 Screening for malignant [facility] 00:00:00 neoplasm of colon Medical Ce [facility]ter (procedure) [code = 365475304] Future Scheduled 1952 Sigmoidoscopy [code = [facility] S[facility]oscopy] Medical Cent[facility] Future Scheduled 1952 CT Colonography (combo) [facility] 00:00:00 [code = CT Colonography [facility] (combo)] Future Scheduled 1952 Screening for malignant [facility] 00:00:00 neoplasm of colon Medical Ce nter (procedure) [code = 094028885] Future Scheduled 1952 Screening for malignant [facility] 00:00:00 neoplasm of colon Medical Ce nter (procedure) [code = 660159788] Future Scheduled 1952 Screening for malignant [facility] 00:00:00 neoplasm of colon Medical Ce nter (procedure) [code = 216910258] Future Scheduled 1952 Screening for malignant [facility] 00:00:00 neoplasm of colon Medical Ce nter (procedure) [code = 240314770] Future Scheduled 1952 Sigmoidoscopy [code = [facility] 00:[facility] Sigmoidoscopy] Medical Manae r Future Scheduled 1952 CT Colonography (combo) [facility] 00:00:00 [code = CT Colonography [facility] (combo)] Future Scheduled 1952 Screening for malignant [facility] 00:00:00 neoplasm of colon Medical Ce nter (procedure) [code = 681711241] Future Scheduled 1952 Screening for malignant [facility] 00:00:00 neoplasm of colon Medical Ce nter (procedure) [code = 177773523] Future Scheduled 1952 Screening for malignant [facility] 00:00:00 neoplasm of colon Medical Ce nter (procedure) [code = 366233263] Future Scheduled 1952 Screening for malignant [facility] 00:00:00 neoplasm of colon Medical Ce nter (procedure) [code = 871030017] Future Scheduled 1952 Sigmoidoscopy [code = [facility] 00:[facility] Sigmoidoscopy] Medical Manae r Future Scheduled 1952 CT Colonography (combo) [facility] 00:00:00 [code = CT Colonography [facility] (combo)] Future Scheduled 1952 Screening for malignant [facility] 00:00:00 neoplasm of colon Medical Ce nter (procedure) [code = 668669895] Future Scheduled 1952 Screening for malignant [facility] 00:00:00 neoplasm of colon Medical Ce nter (procedure) [code = 761171896] Future Scheduled 1952 Screening for malignant [facility] 00:00:00 neoplasm of colon Medical Ce nter (procedure) [code = 027731311] Future Scheduled 1952 Screening for malignant [facility] 00:00:00 neoplasm of colon Medical Ce nter (procedure) [code = 517134459] Future Scheduled 1952 Sigmoidoscopy [code = [facility] 00:[facility] S[facility]oidoscopy] Medical Cente r Future Scheduled 1952 CT Colonography (combo) [facility] 00:00:00 [code = CT Colonography [facility] (combo)] Future Scheduled 1952 Screening for malignant [facility] 00:00:00 neoplasm of colon Medical Ce nter (procedure) [code = 319469525] Future Scheduled 1952 Screening for malignant [facility] 00:00:00 neoplasm of colon Medical Ce [facility]ter (procedure) [code = 063077220] Future Scheduled 1952 Screening for malignant [facility] 00:00:00 neoplasm of colon Medical Ce nter (procedure) [code = 335413126] Future Scheduled 1952 Screening for malignant [facility] 00:00:00 neoplasm of colon Medical Ce nter (procedure) [code = 390064266] Future Scheduled 1952 Sigmoidoscopy [code = [facility] 00:[facility] S[facility]oidoscopy] Medical Cente r Future Scheduled 1952 CT Colonography (combo) [facility] 00:00:00 [code = CT [facility] Future Scheduled 1952 Screening for malignant [facility] 00:00:00 neoplasm of colon Medical Ce nter (procedure) [code = 272296153] Future Scheduled 1952 Screening for malignant [facility] 00:00:00 neoplasm of colon Medical Ce nter (procedure) [code = 217745535] Future Scheduled 1952 Screening for malignant [facility] 00:00:00 neoplasm of colon Medical Ce nter (procedure) [code = 913501085] Future Scheduled 1952 Screening for malignant [facility] 00:00:00 neoplasm of colon Medical Ce nter (procedure) [code = 441746413] Future Scheduled 1952 Sigmoidoscopy [code = [facility] 00:[facility] S[facility]oidoscopy] Medical Cente r Future Scheduled 1952 CT Colonography (combo) [facility] 00:00:00 [code = CT [facility])] Future Scheduled 1952 Screening for malignant [facility] 00:00:00 neoplasm of colon Medical Ce nter (procedure) [code = 754480989] Future Scheduled 1952 Screening for malignant [facility] 00:00:00 neoplasm of colon Medical Ce nter (procedure) [code = 814001950] Future Scheduled 1952 Screening for malignant [facility] 00:00:00 neoplasm of colon Medical Ce nter (procedure) [code = 705031996] Future Scheduled 1952 Screening for malignant [facility] 00:00:00 neoplasm of colon Medical Ce nter (procedure) [code = 362698233] Future Scheduled 1952 Sigmoidoscopy [code = [facility] 00:[facility] Sigmoidoscopy] Medical Cente r Future Scheduled 1952 CT Colonography (combo) [facility] 00:00:00 [code = CT Colonography [facility] (combo)] Future Scheduled 1952 Screening for malignant [facility] 00:00:00 neoplasm of colon Medical Ce nter (procedure) [code = 245431064] Future Scheduled 1952 Screening for malignant [facility] 00:00:00 neoplasm of colon Medical Ce nter (procedure) [code = 580698096] Future Scheduled 1952 Screening for malignant [facility] 00:00:00 neoplasm of colon Medical Ce nter (procedure) [code = 322878088] Future Scheduled 1952 Screening for malignant [facility] 00:00:00 neoplasm of colon Medical Ce nter (procedure) [code = 426788606] Future Scheduled 1952 Sigmoidoscopy [code [facility] S[facility]oscopy] Medical Cente r Encounters Start End Encounter Admission Attending Care Care Encounter Source Date/Time Date/Time Type Type Clinicians Facility Department ID 2022-11-27 2022-11-27 Outpatient R RADIOLOGY [facility] [id number] Univers :20:30 23:59:00 ity of [facility] 2022-11-27 2022-11-27 Hospital Radiology [facility] [id number] Univers 09:20:30 23:59:00 Encounter HEALTH [id number] [place] [id number] [facility] [address] (CLC) 2022-10-28 2022-10-28 Outpatient IMELDA Ly [facility] [id number] [facility] 17:30:00 17:30:00 Paolo 92 [facility] 2022-10-26 2022-10-26 Inpatient ENZO Fonseca RMRI [id number] [facility] 11:00:00 11:00:00 Paolo 21 [facility] 2022-10-23 2022-10-23 Outpatient Surya [facility] [id number] [facility] 13:44:00 13:44:00 Paolo 38 [facility] 2022-10-23 2022-10-23 Outpatient IMELDA Ly [facility] [id number] [facility] 13:14:00 13:14:00 Paolo 97 [facility] 2020-05-25 2020-05-[address] [facility] [id number] [facility] 00:00:00 00:00:00 DEMETRIUS 2020-05-25 2020-05-[address] [facility] [id number] [facility] 00:00:00 00:00:00 DEMETRIUS 2020-03-02 2020-03-02 Outpatient [facility] [id number] [facility] 00:00:00 00:00:00 Results Test Description Test Time Test Comments Results Result [facility] e Comments - CT HEAD/BRAIN 2022-10-28 W/O CONT 00:00:[address] [facility] NOLAN BELZONIName: JENNIFER BELLA : 1950 Sex: M Name: JENNIFER BELLA [facility] Nolan Coyne : 1950 Age/S: 72 / M [address] [place] [address] Blvd Unit #: [id number] Loc: [place] [address] Phys: Paolo Ly DO Acct: [id number] Dis Date: Status: REG CLI PHONE #: [phone] Exam Date: 10/28/2022 180 FAX #: [phone] Reason: FALL EXAMS: CPT CODE: [id number] CT HEAD/BRAIN W/O CONT 66818 PROCEDURE INFORMATION: Exam: CT Head Without Contrast [...] 1 Signed Report (CONTINUED) Name: [facility] 1950 Age/S: 72 / M [address] [place] [address] Unit #: [id number] Loc: [place] [address] Phys: Paolo Ly DO Acct: [id number] Dis Date: Status: REG CLI PHONE #: [phone] Exam Date: 10/28/20221800 FAX #: [phone] Reason: FALL EXAMS: CPT CODE: [id number] CT HEAD/BRAIN W/O CONT 11523 (Continued) inferior cerebellar hemisphere which was present previously as well as 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 at 1849 Reported and signed by: Marcello Jaramillo M.D. CC: Paolo Ly DO Technologist:Efren Luis RT(R)(CT) CTDI: DLP: Trnscb Date/Time: 10/28/2022 (1848) [email or web address] Orig Print D/T: S: 10/28/2022 (1849) PAGE 2 Signed Report - CT HEAD/BRAIN 2022-10-23 W/O CONT 00:00:[address] [facility] NOLAN COYNEName: JENNIFER BELLA : 1950 Sex: M Name: JENNIFER BELLA : 1950 Age/S: 72 / M [address] [place] [address] Unit #: [id number] Loc: [place] [address] Phys: Paolo Ly Acct: [id number] Dis Date: Status: REG CLI PHONE #: [phone] Exam Date: 10/23/2022 1354 FAX #: [phone] Reason: INCREASED TONE CONFUSION. Report Has Been Amended EXAMS: CPT CODE: [id number] CT HEAD/BRAIN W/O CONT 38561 Addendum - 10/23/2022 SIGNED 10/23/2022 ADDENDUM: [id number] CT/CTHDBRWO Findings discussed with Dr. Ly at 3:05 p.m. central standard time at 1506 Reported and signed by: Salvador Ballesteros M.D. Addendum - 10/23/2022 SIGNED 10/23/2022 ADDENDUM: [id number] CT/CTHDBRWO Attempt was made to contact personnel [...] BELLA : 1950 Age/S: 72 / M [address] [place] [address] Blvd Unit #: [id number] Loc: [place] [address] Phys: Paolo Ly DO Acct: [id number] Dis Date: Status: REG CLI PHONE #: [phone] Exam Date: 10/23/2022 1354 FAX #: [phone] Reason: INCREASED TONE CONFUSION. Report Has Been Amended EXAMS: CPT CODE: [id number] CT HEAD/BRAIN W/O CONT 28326 (Continued) Brain: Hypoattenuation consistent with age-indeterminate infarction [...] Technologist:RT Zulay(R)(CT) CTDI: DLP: Trnscb Date/Time: 10/23/2022 (1417) [email or web address] Orig Print D/T: S: 10/23/2022 (1418) PAGE 2 Signed Report MR, ABDOMEN, 2020-05-25 Unlisted WITHOUT IV 16:51:00 Reason for CONTRAST Exam - Click [facility] - Yes and Enter MED[facility]ENTERName: Reason [...] MDReport Verified Date/Time: 05/25/2020 16:51:08 Reading Location: [address] Transitional Reading Room , CHEST, 2 2020-05-25 Reason for VIEWS 10:10:00 Exam:->Person al history of [facility] CENTERName: JENNIFER BELLA : 1950 Sex: M [...] MDReport Verified Date/Time: 05/25/2020 10:10:41 Reading Location: [facility] Reading Room [address] [place], [place] [id number] UE EXAM 2017-10-16 Surgical Pathology Report 09:38:00 Case: [id number] Authorizing Provider: Demetrius Larkin MD Collected: 10/09/2017 1652 Ordering Location: [facility] PERIOPERATIVE Received: 10/10/2017 0810 [...] SYNOPTIC REPORT Signing Pathologist Direct Phone Line: [phone] y signed by Joyce Sauceda MD on 10/16/2017 at 9:38 AMThe relative revisions of traditional Morrow nuclear grading in predicting 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 The assessment of nucleolar prominence as a single parameter is noted to correlate better with outcome than other nuclear parameters (size, shape) to assign a Morrow grade. ("Urologic Surgical Pathology," Leidy and Cristian, third edition, 2014). Nuclear grade assigned in Synoptic portion of this report (tw, can include).This patient's previous biopsy from [facility], from 03/02/2017 ([id number]) shows a core biopsy with features similar [...] Additional Pathological Findings: Cyst(s): Simple cortical cyst 33969 X 2, 61646, 18291 x6Left renal massA. Retroperitoneal lymph node. B. [...] positive; AE1/AE3-positive; RICHARD and CK 7-focally positive; FE29-plqjdlrt CD10 equivocal, possibly focally positiveThe immunohistochemistry test [...] NOT 1092) ACCURATE CRE ATININE CLEARANCE IN [place] EDICTING GLOMERULAR FILT RATION RATE. ESTIMATED GFR IS NOT APPLICABLE FOR DIALYSIS PATIENTS. CBC W/PLT COUNT & AUTO [id number] 12:44:00 Test Item Value Reference Range Interpretation [...] (BEAKER) (test code = 2801) BASIC METABOLIC [id number] 15:02:00 Test Item Value Reference Range Interpretation [...] PATIEN TS. Please draw at 2:00pmBASIC METABOLIC [id number] 06:14:00 Test Item Value Reference Range Interpretation [...] S NOT APPLICABLE FOR DIALYSIS PATIEN TS. [id number] 06:03:00 Test Item Value Reference Range Interpretation Comments PHOSPHORUS (BEAKER) (test code = 2.7 mg/dL 2.3-4.7 604) [id number] 06:03:00 Test Item Value Reference Range Interpretation Comments MAGNESIUM (BEAKER) (test code = 2.1 mg/dL 1.6-2.6 627) CBC W/PLT COUNT & AUTO [id number] 05:16:00 Test Item Value Reference Range Interpretation [...] 20-55 (test code = 2590) BASIC METABOLIC [id number] 05:41:00 Test Item Value Reference Range Interpretation [...] S NOT APPLICABLE FOR DIALYSIS PATIEN TS. [id number] 05:36:00 Test Item Value Reference Range Interpretation Comments PHOSPHORUS (BEAKER) (test code = 2.8 mg/dL 2.3-4.7 604) [id number] 05:36:00 Test Item Value Reference Range Interpretation Comments MAGNESIUM (BEAKER) (test code = 2.2 mg/dL 1.6-2.6 627) PTH, [id number] 05:33:00 Test Item Value Reference Range Interpretation Comments PARATHYROID HORMONE INTACT 212.3 pg/mL 8.5-72.5 H (BEAKER) (test code = 577) CBC W/PLT COUNT & AUTO [id number] 05:02:00 Test Item Value Reference Range Interpretation [...] 0-1 PERCENT (BEAKER) (test code = 2801) [id number] 06:36:00 Test Item Value Reference Range Interpretation Comments PHOSPHORUS (BEAKER) (test code = 2.4 mg/dL 2.3-4.7 604) [id number] 06:36:00 Test Item Value Reference Range Interpretation Comments MAGNESIUM (BEAKER) (test code = 1.8 mg/dL 1.6-2.6 627) BASIC METABOLIC [id number] 06:36:00 Test Item Value Reference Range Interpretation [...] PATIEN TS. CBC W/PLT COUNT & AUTO [id number] 05:59:00 Test Item Value Reference Range Interpretation [...] 0-1 PERCENT (BEAKER) (test code = 2801) [id number] 19:38:00 Test Item Value Reference Range Interpretation Comments PHOSPHORUS (BEAKER) (test code = 2.8 mg/dL 2.3-4.7 604) [id number] 19:38:00 Test Item Value Reference Range Interpretation Comments MAGNESIUM (BEAKER) (test code = 1.7 mg/dL 1.6-2.6 627) BASIC METABOLIC [id number] 19:35:00 Test Item Value Reference Range Interpretation [...] APPLICABLE FOR DIALYSIS PATIEN TS. HEMOGLOBIN AND [id number] 19:07:00 Test Item Value Reference Range Interpretation Comments HEMOGLOBIN (BEAKER) (test code = 13.7 GM/DL 13.7-17.5 410) HEMATOCRIT (BEAKER) (test code = 40.5 % 40.1-51.0 411) URINE [id number] 13:12:00 Test Item Value Reference Range Interpretation Comments CULTURE (BEAKER) (test code = 1095) No growth BASIC METABOLIC [id number] 17:19:00 Test Item Value Reference Range Interpretation [...] APPLICABLE FOR DIALYSIS PATIEN TS. URINALYSIS W/ [id number] 17:15:00 Test Item Value Reference Range Interpretation [...] 1574) Rare SOURCE(BEAKER) (test code = 2795) [id number] 17:07:00 Test Item Value Reference Range Interpretation Comments PARTIAL THROMBOPLASTIN TIME 28.1 seconds 22.5-36.0 (BEAKER) (test code = 760) PROTHROMBIN [id number] 17:06:00 Test Item Value Reference Range Interpretation Comments PROTIME (BEAKER) (test code = 13.6 seconds 11.7-14.7 759) INR (BEAKER) (test code = 370) 1.0 <=5.9 RECOMMENDED COUMADIN/WARFARIN INR THERAPY RANGESSTANDARD DOSE: 2.0 - 3.0 Includes: PROPHYLAXIS for venous thrombosis, systemic embolization; TREATMENT for venous thrombosis and/or pulmonary embolus.HIGH RISK: Target INR is 2.5-3.5 for patients with mechanical heart valves.CBC W/PLT COUNT & AUTO [id number] 16:53:00 Test Item Value Reference Range Interpretation [...] PERCENT (BEAKER) (test code = 2801) TISSUE [id number] 11:47:00Surgical Pathology Report Case: [id number] Authorizing Provider: Farzad Jackson Collected: 03/02/2017 Asad Vicente MD Ordering Location: [facility] Diagnostic Imaging Received: 03/02/2017 1140 Patholog ist: [...] Intradepartmental consultation: Dr. Koko Whitney, Dr. Umu Manzanares/[id number], [id number], 83564 x2Left kidney biopsy massKiellen massThe specimen is received in fixative and [...] as qualified to perform high complexity clinical laboratorytesting.PT/[id number] 08:19:00 Test Item Value Reference Range Interpretation [...] mechanical heart valves.CBC W/PLT COUNT & AUTO [id number] 08:14:00 Test Item Value Reference Range Interpretation [...] Note Provider Source 2017-10-10 00:13:00-00:00 DEMETRIUS LARKIN [facility] REPORT OF PROCEDURE JENNIFER BELLA FACILITY: [facility] BILLING #: [id number] ROOM: 16T [id number] MR #: [id number] : 1950 DATE OF PROCEDURE: 10/09/2017 SURGEON: Demetrius Larkin MD BUS STARTER: Marizol Gonsales MD, PhD PREOPERATIVE DIAGNOSIS: Left renal mass. POSTOPERATIVE DIAGNOSIS: Left renal mass. OPERATIVE PROCEDURE: Left lapro-endoscopic singl e-site radical nephrectomy with retroperitoneal lymph node dissection. ANESTHESIA: General. BLOOD LOSS: 50 mL. COMPLICATIONS: None. SPECIMENS 1. Left kidney and hilar lymph nodes. 2. Retroperitoneal lymph node dissection. FINDING: Single right renal artery and 2 right r enal veins. DRAIN: A 16-Brazilian Hart catheter. OPERATIVE PROCEDURE: Mr. Bella is [...] entered digitally. We then placed the applied Oligomerix dical single-site device at this location with [...] of the procedure. Jeny P A Job#: [id number] Doc#: [id number] FN: [id number] cc: Demetrius Larkin MD
--- NOTE | 2023-03-29 12:42 | RAD REPORT ---
EXAM DESCRIPTION: CT - Head Brain Wo Cont - 03/29/2023 12:34 pm CLINICAL HISTORY: DIZZINESS Headache, drowsiness COMPARISON: Head Brain Wo Cont dated 01/15/2023; Head Brain Wo Cont dated 08/04/2022 TECHNIQUE: All CT scans are performed using dose optimization technique as appropriate and may inclu de automated exposure control or mA/KV adjustment according to patient size. FINDINGS: No intracranial hemorrhage, hydrocephalus or extra-axial fluid collection.Advanced general ized brain atrophy is present with a than periventricular and deep white matter chronic microvascular ischemic changes.No areas of brain edema or evidence of midline shift. Gliosis is seen right cerebel lar hemisphere likely attributable to prior infarct or trauma. The paranasal sinuses and mastoids are clear. The calvarium is intact. IMPRESSION: No acute intracranial abnormality.
[2023-03-29 12:57] LABS: Absolute Lymphocytes (CBC) 0.7 K/uL (0.7-4.9); Hematocrit 43.2 % (39.6-49.0); Lymphocytes % 13.9 % (15.3-44.8); MCV 89.9 fL (80-100); MPV 7.6 fL (7.6-11.3); Platelets 268 thou/uL (152-406); RBC Red Blood Cell Count 4.81 M/uL (4.33-5.43)
[2023-03-29 13:02] LABS: Protime INR 0.9
--- NOTE | 2023-03-29 13:35 | RAD REPORT ---
EXAM DESCRIPTION: RAD - Chest Single View - 03/29/2023 1:30 pm CLINICAL HISTORY: CHEST PAIN Chest pain. COMPARISON: <Comparisons> FINDINGS: Portable technique limits examination quality. The lungs are grossly clear. The heart is upper limit of normal in size. No displaced fractures.Right -sided vascular stent. IMPRESSION: No acute intrathoracic process suspected.
[2023-03-29 13:41] LABS: Albumin 3.7 g/dL (3.4-5.0); Bilirubin Direct 0.1 mg/dL (0-0.2); Bilirubin Indirect, Calculated 0.4 mg/dL (0.2-0.8); Bilirubin Total 0.5 mg/dL (0.2-1.0); Magnesium 2.4 mg/dL (1.6-2.4); Potassium 3.9 mEq/L (3.5-5.1); Protein, Total 7.7 g/dL (6.4-8.2)
[2023-03-29 13:43] LABS: Troponin High Sensitivity 1207.6 pg/mL (<58.9)
--- NOTE | 2023-03-29 14:04 | EDPHYS ---
Physician Documentation [facility] Name: Aravind Low Age: 72 yrs Sex: Male : 1950 Arrival Date: 03/29/2023 Time: 12:22 Bed 2 Private MD: ED Physician Rafael Richter HPI: 03/29 17:44 This 72 yrs old Black Male presents to ER via EMS with complaints of Dizziness. sb4 17:44 The patient presents with dizziness. Onset: The symptoms/episode began/occurred 3 sb4 day(s) ago. Context:. patient past medical history of dementia, hypertension, CVA, CKD4, kidney mass s/p nephrectomy, CAD presents via EMS with complaints of dizziness. patient has dementia and cannot give much history. he was seen at the [place] yesterday and told he had "fluid around his heart" but nothing was done. states that his symptoms had progressed today so she called EMS. Historical: - Allergies: 12:25 No Known Allergies; ld1 - PMHx: 12:25 CVA; Hypertension; kidney cancer; Gout; ESRD; Dementia; ld1 - PSHx: 12:25 kidney removal; ld1 - Immunization history:: Adult Immunizations up to date. - Social history:: Smoking status: Patient denies any tobacco usage or history of. ROS: 17:44 Constitutional: Negative for fever, chills, and weight loss. sb4 17:44 Neuro: Positive for dizziness. Exam: 17:44 Head/Face: Normocephalic, atraumatic. Eyes: Extra-ocular motions intact. Periorbital sb4 areas with no swelling, redness, or edema. Cardiovascular: Regular rate and rhythm with a normal S1 and S2. Respiratory: Lungs have equal breath sounds bilaterally, clear to auscultation and percussion. No rales, rhonchi or wheezes noted. No increased work of breathing, no retractions or nasal flaring. Abdomen/GI: Soft, non-tender, no distension. Skin: Warm, dry with normal turgor. Normal color with no rashes, no lesions, and no evidence of cellulitis. MS/ Extremity: Pulses equal, no cyanosis. Neurovascular intact. Full, normal range of motion. 17:44 Constitutional: The patient appears alert, awake, unkempt. 17:44 Neuro: 17:44 Neuro: Orientation: no acute changes, per family, Mentation: no acute changes, per family, unable to follow commands. Vital Signs: 12:47 BP 132 / 92; Pulse 95; Resp 16; Temp 98; Pulse Ox 100% on R/A; iw 13:43 BP 117 / 72; Pulse 94; Resp 18; Pulse Ox 100% on R/A; ld1 14:07 BP 156 / 94; Pulse 99; Resp 18; Pulse Ox 100% on R/A; ld1 18:45 BP 154 / 97; Pulse 100; Resp 18; Pulse Ox 100% on R/A; ld1 19:45 BP 149 / 88; Pulse 82; Resp 16; Pulse Ox 100% on R/A; jb4 20:45 BP 159 / 99; Pulse 80; Resp 16; Pulse Ox 100% on R/A; jb4 MDM: 12:25 Patient medically screened. sb4 17:44 Differential diagnosis: cardiac arrhythmia, CVA, generalized weakness, GI bleed, sb4 idiopathic dizziness, near-syncope, syncope, TIA, vertigo. Data reviewed: vital signs, nurses notes, EMS record, old medical records, prior admission notes and labs lab test result(s), EKG, radiologic studies, I have discussed the patient's presentation/case with the attending Emergency Department Physician; and as a result, I will admit patient. Consideration of Admission/Observation Patient was admitted/placed on observation. Management of patient was discussed with the following: Hospitalist: Dr. Rolon, accepts patient for admission. Historians other than the Patient: Spouse/Significant Other: . Care significantly affected by the following chronic conditions: Hypertension, Chronic Kidney Disease. Counseling: I had a detailed discussion with the patient and/or guardian regarding the historical points, exam findings, and any diagnostic results supporting the discharge/admit diagnosis, the presence of at least one elevated blood pressure reading (>120/80) during this emergency department visit, lab results, radiology results, the need for further work-up and treatment in the hospital. 03/29 12:26 Order name: Basic Metabolic Panel; Complete Time: 13:44 sb4 03/29 12:26 Order name: CBC with Diff; Complete Time: 13:01 sb4 03/29 12:26 Order name: Hepatic Function; Complete Time: 13:44 sb4 03/29 12:26 Order name: Magnesium; Complete Time: 13:44 sb4 03/29 12:26 Order name: Protime (+inr); Complete Time: 13:02 sb4 03/29 12:26 Order name: Ptt, Activated; Complete Time: 13:02 sb4 03/29 12:26 Order name: Troponin High Sensitivity; Complete Time: 13:44 sb4 03/29 12:26 Order name: UAM; Complete Time: 15:26 sb4 03/29 12:26 Order name: CT Head Brain wo Cont; Complete Time: 12:42 sb4 03/29 12:26 Order name: Chest Single View XRAY; Complete Time: 13:36 sb4 03/29 17:15 Order name: CT Abd/Pelvis - PO Contrast Only sb4 03/29 19:26 Order name: CT; Complete Time: 08:07 EDMS 03/29 12:26 Order name: EKG; Complete Time: 12:27 sb4 03/29 12:26 Order name: Cardiac monitoring; Complete Time: 12:57 sb4 03/29 12:26 Order name: EKG - Nurse/Tech; Complete Time: 12:58 sb4 03/29 12:26 Order name: IV Saline Lock; Complete Time: 12:54 sb4 03/29 12:26 Order name: Labs collected and sent; Complete Time: 12:54 sb4 03/29 12:26 Order name: NPO; Complete Time: 12:27 sb4 03/29 12:26 Order name: O2 Per Protocol; Complete Time: 12:27 sb4 03/29 12:26 Order name: O2 Sat Monitoring; Complete Time: 12:27 sb4 EC:04 Rate is 98 beats/min. Rhythm is regular, Sinus Rhythm with PACs. PA interval is normal sb4 at 158 msec. QRS interval is normal at 84 msec. QT interval is prolonged at 370 msec. Clinical impression: Abnormal EKG without significant change. Interpreted by me. Reviewed by me. Administered Medications: 17:56 Drug: D5-1/2 NS IV 1000 ml Route: IV; Rate: bolus; Site: right forearm; ld1 Disposition: 03/30 20:00 Co-signature as Attending Physician, Rafael Richter MD I reviewed the patient's care rt provided by the Advanced Practice Provider and agree with the diagnosis and treatment plan. Disposition Summary: 03/29/23 14:04 Hospitalization Ordered Hospitalization Status: Inpatient Admission sb4 Location: Telemetry/MedSurg (Inpatient) sb4 Condition: Fair sb4 Problem: new sb4 Symptoms: are unchanged sb4 Bed/Room Type: Standard sb4 Provider: Titus Rolon(03/29/23 16:48) sb4 Room Assignment: [facility](03/29/23 19:39) cg Diagnosis - Acute kidney failure, unspecified sb4 - Subsequent non-ST elevation (NSTEMI) myocardial infarction sb4 - Dizziness and giddiness sb4 Forms: - Medication Reconciliation Form sb4 - SBAR form sb4 - Leadership Thank You Letter sb4 Signatures: Dispatcher [employer] Jayla Portillo RN RN cg Rose Sampson RN RN ld1 Ximena King PA-C PACarlee sb4 Rafael Richter MD MD rt Corrections: (The following items were deleted from the chart) 03/29 16:48 14:04 Jaspal Díaz sb4 sb4 19:39 14:04 sb4 cg
--- NOTE | 2023-03-29 14:04 | ER ---
Nurse's Notes [facility] Name: Aravind Low Age: 72 yrs Sex: Male : 1950 Arrival Date: 03/29/2023 Time: 12:22 Bed 2 Private MD: Diagnosis: Acute kidney failure, unspecified;Subsequent non-ST elevation (NSTEMI) myocardial infarction;Dizziness and giddiness Presentation: 03/29 12:24 Chief complaint: EMS states: dizziness X 3 days. Coronavirus screen: At this time, the ld1 client does not indicate any symptoms associated with coronavirus-19. Ebola Screen: No symptoms or risks identified at this time. Risk Assessment: Do you want to hurt yourself or someone else? Patient reports no desire to harm self or others. Onset of symptoms was March 29, 2023. 12:24 Method Of Arrival: EMS: [facility] ld1 12:24 Acuity: ANTONIO 3 ld1 Triage Assessment: 12:25 General: Appears in no apparent distress. comfortable, Behavior is calm, cooperative, ld1 appropriate for age. Pain: Denies pain. EENT: No signs and/or symptoms were reported regarding the EENT system. Neuro: Level of Consciousness is awake, alert, obeys commands, Oriented to person, place, time, situation. Cardiovascular: Capillary refill < 3 seconds Patient's skin is warm and dry. Respiratory: Airway is patent Respiratory effort is even, unlabored. GI: Abdomen is flat, non-distended. : No signs and/or symptoms were reported regarding the genitourinary system. Derm: No signs and/or symptoms reported regarding the dermatologic system. Musculoskeletal: No signs and/or symptoms reported regarding the musculoskeletal system. Historical: - Allergies: 12:25 No Known Allergies; ld1 - PMHx: 12:25 CVA; Hypertension; kidney cancer; Gout; ESRD; Dementia; ld1 - PSHx: 12:25 kidney removal; ld1 - Immunization history:: Adult Immunizations up to date. - Social history:: Smoking status: Patient denies any tobacco usage or history of. Screenin:[facility] ED Fall Risk Assessment (Adult) History of falling in the last 3 months, ld1 including since admission No falls in past 3 months (0 pts). Abuse screen: Denies threats or abuse. Denies injuries from another. Nutritional screening: No deficits noted. Tuberculosis screening: No symptoms or risk factors identified. Assessment: 12:26 Reassessment: See triage assessment. ld1 13:55 Reassessment: attempted to straight cath pt, met resistance and kg blood was noted iw in tubing and bag , removed catheter, notified Cecilia RAHMAN, bladder scanner showed 254 mL in bladder. 14:54 Reassessment: coude Cesar catheter placed, yellow pink tinged urine noted in tubing, pt iw has had 250 ML output per cesar . 16:02 Reassessment: Patient is alert/active/playful, equal unlabored respirations, skin ld1 warm/dry/pink. Lilia - patient - [phone]. 18:51 Reassessment: Patient appears in no apparent distress at this time. Patient and/or iw family updated on plan of care and expected duration. Pain level reassessed. 19:15 Reassessment: PT is A\T\O x2. Resting in bed with no s/s of pain or distress noted. jb4 20:58 Reassessment: Patient appears in no apparent distress at this time. No changes from jb4 previously documented assessment. Patient and/or family updated on plan of care and expected duration. Pain level reassessed. Vital Signs: 12:47 BP 132 / 92; Pulse 95; Resp 16; Temp 98; Pulse Ox 100% on R/A; iw 13:43 BP 117 / 72; Pulse 94; Resp 18; Pulse Ox 100% on R/A; ld1 14:07 BP 156 / 94; Pulse 99; Resp 18; Pulse Ox 100% on R/A; ld1 18:45 BP 154 / 97; Pulse 100; Resp 18; Pulse Ox 100% on R/A; ld1 19:45 BP 149 / 88; Pulse 82; Resp 16; Pulse Ox 100% on R/A; jb4 20:45 BP 159 / 99; Pulse 80; Resp 16; Pulse Ox 100% on R/A; jb4 ED Course: 12:23 Patient arrived in ED. ld1 12:25 Triage completed. ld1 12:25 Rafael Richter MD is Attending Physician. rt 12:25 Ximena King PA[facility]C is [facility]. sb4 12:25 Arm band placed on right wrist. ld1 12:26 Patient has correct armband on for positive identification. Placed in gown. Bed in low ld1 position. Call light in reach. Side rails up X2. insole taper on. Pulse ox on. NIBP on. Door closed. Noise minimized. Warm blanket given. 12:26 No provider procedures requiring assistance completed. ld1 12:36 CT Head Brain wo Cont In Process Unspecified. EDMS 12:46 Inserted saline lock: 22 gauge in right forearm, using aseptic technique. Blood iw collected. 12:53 Coral Jameson, RN is Primary Nurse. iw 13:32 Chest Single View XRAY In Process Unspecified. EDMS 13:43 Notified ED physician of a critical lab result(s). Troponin 1207.6. ld1 14:03 Jaspal Díaz MD is Hospitalizing Provider. sb4 15:01 Coud inserted, using sterile technique, 14 Fr. To gravity drainage. Urine specimen iw collected. 16:48 Titus Rolon MD is Hospitalizing Provider. sb4 17:47 [phone] pt . kj1 18:51 Provided Education on: admission. iw 21:03 Patient admitted, IV remains in place. jb4 Administered Medications: 17:56 Drug: D5-1/2 NS IV 1000 ml Route: IV; Rate: bolus; Site: right forearm; ld1 Medication: 12:26 VIS not applicable for this client. ld1 Outcome: 14:04 Decision to Hospitalize by Provider. sb4 21:03 Admitted to Med/surg family with patient, via stretcher, room 228, with chart. jb4 21:03 Condition: stable 21:03 Discharge instructions given to patient, Instructed on the need for admit, Demonstrated understanding of instructions. 21:05 Patient left the ED. jb4 Signatures: Dispatcher [employer] EDMS Coral Jameson, RN Avila Rogers RN RN jb4 Cami Kruse kj1 Rose Sampson RN RN ld1 Ximena King PA-C PACarlee boles4 Rafael Richter MD MD rt
[2023-03-29 15:21] LABS: Specific Gravity 1.016 (1.005-1.030); Urine Bacteria <20 /HPF (<20); Urine Bilirubin NEGATIVE (Negative); Urine Blood Negative (Negative); Urine Clarity Clear (Clear); Urine Color Light-Yellow (Yellow); Urine Crystals Unidentified Few /HPF (None Seen); Urine Glucose NEGATIVE (Negative); Urine Protein 1+ (Negative); Urine Urobilinogen Normal (Normal); Urine pH 5.5 (5.0-7.0)
[2023-03-29] MEDS ORDERED: D5 0.45 NS 1,000 ML IV ONE ×2 (18:06→21:40)
--- NOTE | 2023-03-29 19:25 | RAD REPORT ---
EXAM DESCRIPTION: CT - Abdomen Pelvis Wo Contrast - 03/29/2023 7:10 pm CLINICAL HISTORY: Abdominal pain. ABD PAIN COMPARISON: Abdomen Pelvis Wo Contrast dated 09/03/2022 TECHNIQUE: CT imaging of the abdomen and pelvis was performed without contrast. Solid organ, bowel a nd vascular assessment is limited due to lack of IV and oral contrast. All CT scans are performed using dose optimization technique as appropriate and may include automated exposure control or mA/KV adjustment according to patient size. FINDINGS: The lower lung quiroga are clear. The liver, spleen, pancreas, adrenal glands and right kidney are within normal limits for a limited n on-contrast examination.Right renal cysts likely present. No bowel obstruction, free air, free fluid or abscess. There is significant fecal retention with a la rge amount of stool impacted in the rectum. Rectum is distended to 9 cm. Nonvisualization of the appe ndix. Hart catheter noted. Aorto iliac atherosclerosis. The osseous structures are within normal limits. IMPRESSION: Rectosigmoid fecal impaction. A limited non-contrast examination was performed as detailed.
[2023-03-29 21:28] VITALS: O2SAT 100
[2023-03-29 21:39] VITALS: BMI 24.0
[2023-03-29] MEDS: D5 0.45 NS 1,000 ML IV SCH (21:40)
--- NOTE | 2023-03-29 21:40 | P.HP ---
Certification for Inpatient Patient admitted to: Inpatient With expected LOS: >2 Midnights Practitioner: I am a practitioner with admitting privileges, knowledge of patient current condition, hospital course, and medical plan of care. Services: Services provided to patient in accordance with Admission requirements found in Title 42 Section 412.3 of the Code of Federal Regulations Patient History Date of Service: 03/29/23 Reason for admission: NOT SURE WHY HE IS HERE. History of Present Illness: ER PA CALLS ME FOR ADMISSION SAYING THAT HE HAS RENAL FAILURE BUT THIS FAILURE I S NOT NEW. HE HAS CKD 4 FOR LONG DURATION. IT IS WELL DOCUMENTED. I CALLED WITH NO REPLY. I CALLED STEP DAUGHTER WHOSE PHONE IS NOT IN SERVICE. I ASKED PA TO ORDER CT ABDOMEN HE WAS IN PAIN WHEN I DID PALPATION. HIS RECTUM AND SIGMOID ARE SEVERELY IMPACTED WITH STOOL. HE IS NON VERBAL AND HAS SEVERE DEMENTIA. HE GOES TO [place] FOR HIS CARE BUT IT LOOKS LIKE FAMILY BRINGS HIM TO ER FOR NO NEW REASON EVERY MONTH OR TWO. Allergies No Known Allergies Allergy (Verified 05/08/19 18:47) Home medications list reviewed: Yes Home Medications: Amlodipine [Norvasc*] 5 mg PO DAILY 08/06/22 Aspirin [Aspirin EC] 81 mg PO DAILY #30 tab 08/12/22 Sodium Bicarbonate 1,300 mg PO BID #120 tab 08/12/22 Clonidine HCl [Catapres*] 0.2 mg PO TID #90 tab 08/22/22 Atorvastatin Calcium [Lipitor] 10 mg PO BEDTIME 01/17/23 Polyethylene Glycol 3350 [Miralax] 17 gm PO DAILY 01/17/23 carvediloL [Coreg*] 25 mg PO BID 01/17/23 Hydralazine HCl 100 mg PO TID 30 Days #90 tab 01/18/23 Aspirin Chewable [Aspirin Chewable*] 81 mg PO DAILY #30 tab.chew 03/21/23 Furosemide [Lasix*] 40 mg PO DAILY #30 tab 03/21/23 Potassium Chloride 10 meq PO DAILY #30 tab 03/21/23 - Past Medical/Surgical History Diabetic: No -: Hypertension -: Chronic renal disease, stage IV -: History left renal mass with nephrectomy -: gout -: CVA -: Left nephrectomy Psychosocial/ Personal History: Patient is - Family History Mother -: Hypertension Brother -: Heart disease Notes: deseased from mi Father Notes: dementia Sister -: Diabetes uncle -: Cancer Notes: prostate - Social History Alcohol use: No CD- Drugs: No Caffeine use: No Review of Systems 10-point ROS is otherwise unremarkable General: Weakness Physical Examination - Vital Signs Temperature: 98 F Blood Pressure: 149/88 Pulse: 82 Respirations: 16 - Physical Exam General: Confused (NO ORIENTATION. NON VERBAL, SEVERELY DEMENTED.) HEENT: Atraumatic, PERRLA, Mucous membr. moist/pink, EOMI, Sclerae nonicteric Neck: Supple, 2+ carotid pulse no bruit, No LAD, Without JVD or thyroid abnormality Respiratory: Clear to auscultation bilaterally, Normal air movement Cardiovascular: Regular rate/rhythm, Normal S1 S2 Gastrointestinal: Normal bowel sounds, Tenderness (DIFFUSE MILD, NON FOCAL, NO REBOUND.) Musculoskeletal: No tenderness Integumentary: No rashes Neurological: Dementia (SEVERE, MILD AGITATION, NOT FOLLOWING COMMANDS, AWAKE. ) Lymphatics: No axilla or inguinal lymphadenopathy - Studies Laboratory Data (last 24 hrs) 03/29/23 03/29/23 03/29/23 14:59 13:13 12:40 WBC Hgb Hct Plt Count PT 9.9 INR 0.90 APTT 34.3 Sodium 136 Potassium 3.9 BUN 55 H Creatinine 3.00 H Glucose 108 H Magnesium 2.4 Total Bilirubin 0.5 AST 33 ALT 34 Alkaline Phosphatase 67 Urine Color Light-yellow Urine Clarity Clear Urine pH 5.5 Ur Specific [place] 1.016 Glucose (UA)(Auto) Negative Urine Ketones Negative Urine Blood Negative Urine Nitrite Negative Urine Bilirubin Negative Urine Urobilinogen Normal Ur Leukocyte Esterase Negative Urine RBC 11-20 H Urine WBC <5 Ur Squamous Epith Cells None seen U Non-Squamous Epi Cells <5 Unidentified Crystals Few Urine Bacteria <20 Urine Culture Reflexed Not needed Urine Total Protein 1+ H 03/29/23 12:40 WBC 5.00 Hgb 14.6 Hct 43.2 Plt Count 268 PT INR APTT Sodium Potassium BUN Creatinine Glucose Magnesium Total Bilirubin AST ALT Alkaline Phosphatase Urine Color Urine Clarity Urine pH Ur Specific [place] Glucose (UA)(Auto) Urine Ketones Urine Blood Urine Nitrite Urine Bilirubin Urine Urobilinogen Ur Leukocyte Esterase Urine RBC Urine WBC Ur Squamous Epith Cells U Non-Squamous Epi Cells Unidentified Crystals Urine Bacteria Urine Culture Reflexed Urine Total Protein Assessment and Plan - Problems (Diagnosis) (1) Chronic constipation Current Visit: Yes Status: Chronic Plan: ENEMA AND DISIMPACTION BID. (2) CKD stage 4 secondary to hypertension Current Visit: Yes Status: Chronic Plan: NO REASON TO KEEP ON BRINGING HIM TO ER WITH SEVERE DEMENTIA. HE NEEDS TO BE ON HOSPICE I AM SURPRISED THAT WITH SO MANY ADMISSIONS THIS YEAR HOSPICE RECOMMENDATION IS NOT YET MADE. CONSULT SOCIAL SERVICE. (3) Alzheimer disease Current Visit: Yes Status: Chronic Plan: ABOVE SEVERE NON VERBAL. FAST SCORE 7E - Advance Directives Does patient have a Living Will: No Does patient have a Durable POA for Healthcare: No
[2023-03-29] MEDS: carvediloL 12.5 MG TAB PO SCH (22:00)
[2023-03-29] MEDS ORDERED: ATORVASTATIN 10 MG TAB PO SCH (22:00)
[2023-03-29] MEDS ORDERED: SODIUM BICARB 325 MG TAB PO ONE (22:31)
[2023-03-29] MEDS ORDERED: ATORVASTATIN 10 MG TAB ONE (22:32)
[2023-03-29] MEDS ORDERED: carvediloL 25 MG TAB ONE (22:32)
[2023-03-29] MEDS: SODIUM BICARB 325 MG TAB PO SCH (23:04)
[2023-03-30 04:59] LABS: Potassium 3.8 mEq/L (3.5-5.1)
[2023-03-30] MEDS ORDERED: MINERAL OIL ENEMA 135 ML BTL PR ONE (08:00)
[2023-03-30] MEDS: carvediloL 12.5 MG TAB PO SCH (08:57)
[2023-03-30] MEDS: SODIUM BICARB 325 MG TAB PO SCH (08:57)
[2023-03-30] MEDS ORDERED: ASPIRIN EC 81 MG TAB PO SCH (09:00)
[2023-03-30] MEDS ORDERED: ASPIRIN 81 MG CHEWABLE TABLET PO SCH (09:00)
[2023-03-30] MEDS ORDERED: AMLODIPINE 5 MG TAB PO SCH (09:00)
[2023-03-30] MEDS ORDERED: POLYETHYL GLY 3350 17 GM/DOSE PO SCH (09:00)
[2023-03-30 11:33] VITALS: BP 151/87; TEMP 98.1
[2023-03-30] MEDS: D5 0.45 NS 1,000 ML IV SCH (13:29)
--- NOTE | 2023-03-30 14:48 | P.DS ---
Admission Date: 03/29/23 Discharge Date: 03/30/23 Disposition: ROUTINE DISCHARGE Discharge Condition: FAIR Reason for Admission: NOT SURE WHY HE IS HERE. - Problems (1) Chronic constipation Current Visit: Yes Status: Chronic (2) CKD stage 4 secondary to hypertension Current Visit: Yes Status: Chronic (3) Alzheimer disease Current Visit: Yes Status: Chronic Brief History of Present Illness: ER PA CALLS ME FOR ADMISSION SAYING THAT HE HAS RENAL FAILURE BUT THIS FAILURE IS NOT NEW. HE HAS CKD 4 FOR LONG DURATION. IT IS WELL DOCUMENTED. I CALLED WITH NO REPLY. I CALLED STEP DAUGHTER WHOSE PHONE IS NOT IN SERVICE. I ASKED PA TO ORDER CT ABDOMEN HE WAS IN PAIN WHEN I DID PALPATION. HIS RECTUM AND SIGMOID ARE SEVERELY IMPACTED WITH STOOL. HE IS NON VERBAL AND HAS SEVERE DEMENTIA. [place] C[place] BUT IT LOOKS LIKE FAMILY BRINGS HIM TO ER FOR NO NEW REASON EVERY MONTH OR TWO. Hospital Course: MR BELLA IS CHRONICALLY CONSTIPATED DEMENTED NON VERBAL GENTLMAN WHO WAS BROUGHT FOR REASON I DON'T KNOW. I ASKED ADMITTING PA AND SHE HAS NO IDEA. I CALLED 3 TIMES TO GET HISTORY AND SHE COULD NOT HEAR ME. PA THOUGHT RENAL FAILURE IS NEW BUT IT IS NOT. TROPONIN IS HIGH BUT HE HAS NO CORONARY SYMPTOMS. HE IS STABLE TO GO HOME AFTER GOOD BM VIA [place]. [place] GOES [place] CARE AND COMES TO [facility] FOR [facility]MISSION. HE WILL BE A GOOD HOSPICE PATIENT IF HE CONTINUES TO DECLINE. Vital Signs/Physical Exam: Temp Pulse Resp BP Pulse Ox 98.1 F 76 18 151/87 H 98 03/30/23 11:33 03/30/23 11:33 03/30/23 11:33 03/30/23 11:33 03/30/23 11:33 Laboratory Data at Discharge: WBC 5.00 thou/uL (4.3-10.9) 03/29/23 12:40 Hgb 14.6 g/dL (13.6-17.9) 03/29/23 12:40 Hct 43.2 % (39.6-49.0) 03/29/23 12:40 Plt Count 268 thou/uL (152-406) 03/29/23 12:40 PT 9.9 SECONDS (9.5-12.5) 03/29/23 12:40 INR 0.90 03/29/23 12:40 APTT 34.3 SECONDS (24.3-36.9) 03/29/23 12:40 Sodium 136 mEq/L (136-145) 03/30/23 04:34 Potassium 3.8 mEq/L (3.5-5.1) 03/30/23 04:34 BUN 47 mg/dL (7-18) H 03/30/23 04:34 Creatinine 2.75 mg/dL (0.70-1.30) H 03/30/23 04:34 Glucose 112 mg/dL (74-106) H 03/30/23 04:34 Magnesium 2.4 mg/dL (1.6-2.4) 03/29/23 13:13 Total Bilirubin 0.5 mg/dL (0.2-1.0) 03/29/23 13:13 AST 33 U/L (15-37) 03/29/23 13:13 ALT 34 U/L (16-61) 03/29/23 13:13 Alkaline Phosphatase 67 U/L (45-117) 03/29/23 13:13 Home Medications: Amlodipine [Norvasc*] 5 mg PO DAILY 08/06/22 Aspirin [Aspirin EC] 81 mg PO DAILY #30 tab 08/12/22 Sodium Bicarbonate 1,300 mg PO BID #120 tab 08/12/22 Clonidine HCl [Catapres*] 0.2 mg PO TID #90 tab 08/22/22 Atorvastatin Calcium [Lipitor] 10 mg PO BEDTIME 01/17/23 Polyethylene Glycol 3350 [Miralax] 17 gm PO DAILY 01/17/23 carvediloL [Coreg*] 25 mg PO BID 01/17/23 Hydralazine HCl 100 mg PO TID 30 Days #90 tab 01/18/23 Aspirin Chewable [Aspirin Chewable*] 81 mg PO DAILY #30 tab.chew 03/21/23 Lactulose 30 ml PO DAILY #1000 ml 03/30/23 New Medications: Lactulose 30 ml PO DAILY #1000 ml Followup: Titus Rolon MD [Primary Care Provider] -
--- NOTE | 2023-03-30 16:35 | EKG ---
Test Date: 2023-03-29 Test Time: 12:47:59 Almond Grinder: TORRES MEASUREMENT RESULTS: Intervals: Rate: 98 OH: 158 QRSD: 84 QT: 370 QTc: 472 [place]: P: 60 OH: 158 QRS: 36 T: 87 INTERPRETIVE STATEMENTS: Sinus rhythm with premature supraventricular complexes Possible Left atrial enlargement Left ventricular hypertrophy ST elevation, consider early repolarization, pericarditis, or injury T wave abnormality, consider lateral ischemia Prolonged QT Abnormal ECG Compared to ECG 03/20/2023 04:09:32 Atrial premature complex(es) now present T-wave abnormality now present Possible ischemia now present Right-axis deviation no longer present ST (T wave) deviation still present Electronically Signed On 03-30-23 16:32:13 CDT by Clark Fuller
== END 2023-03-30 16:21 | disposition home or self-care (01) | DRG 683 ==
LOC: ER 12:22 → ERHOLD 17:07 → 2ND 20:21
PROVIDERS: ADMIT Internal Medicine; ATTEND Internal Medicine
DX: I12.9 Hypertensive chronic kidney disease with stage 1 through stage 4 chronic kidney disease, or unspecified chronic kidney disease (principal); F02.811 Dementia in other diseases classified elsewhere, unspecified severity, with agitation; N18.4 Chronic kidney disease, stage 4 (severe); K59.09 Other constipation; G30.9 Alzheimer's disease, unspecified; R77.8 Other specified abnormalities of plasma proteins; M10.9 Gout, unspecified; Z79.899 Other long term (current) drug therapy; Z79.82 Long term (current) use of aspirin; Z86.73 Personal history of transient ischemic attack (TIA), and cerebral infarction without residual deficits; Z90.5 Acquired absence of kidney; Z82.49 Family history of ischemic heart disease and other diseases of the circulatory system; Z83.3 Family history of diabetes mellitus; Z80.42 Family history of malignant neoplasm of prostate; Z82.0 Family history of epilepsy and other diseases of the nervous system
CPT/HCPCS: 36415; 70450; 71045; 74176; 80048; 80076; 81001; 83735; 84484; 85025; 85610; 85730; 93005; 97116; 97162; 97530; 99285; J7799

== ENCOUNTER 2023-11-04 21:48 | Inpatient (IN) | payer OTHER ==
[2023-11-04 22:06] LABS: Arterial Blood Carboxyhemoglob 1.5 % (0-1.5); Blood Gas Oxyhemoglobin 95.5 % (94-97); Blood Gas THB 14.1 g/dl (12-18); Blood O2 Saturation 98.7 % (92-98.5)
[2023-11-04] MEDS ORDERED: ALBUTEROL 2.5 MG/3 ML NEB SOL ONE (22:24)
[2023-11-04] MEDS ORDERED: IPRATROPIUM BROM 0.5MG/2.5ML ONE (22:24)
[2023-11-04] MEDS ORDERED: ZIPRASIDONE MESYLA 20 MG/VIAL IM ONE (22:25)
[2023-11-04] MEDS ORDERED: WATER FOR INJ,STERILE 10 ML ONE (22:26)
[2023-11-04] MEDS ORDERED: NA CHLORIDE 0.9% 2,000 ML ONE (22:26)
[2023-11-04 22:41] LABS: Absolute Basophils 0.1 K/uL (0-0.5); Absolute Lymphocytes (CBC) 1.6 K/uL (0.7-4.9); Absolute Monocytes 0.5 K/uL (0.1-1.3); Absolute Neutrophil 2.3 K/uL (1.8-8.0); Basophils % 2.1 % (0-1.3); Eosinophils % 0.3 % (0-4.4); Hematocrit 40.6 % (39.6-49.0); MCH 31.1 pg (27.0-35.0); MCHC 34.5 g/dL (32.0-36.0); MCV 90.2 fL (80-100); MPV 8.4 fL (7.6-11.3); Monocytes % 11.5 % (3.3-12.3); Neutrophils % 51.1 % (41.7-73.7); Nucleated Red Blood Cells % 0.1 % (0-0); Platelets 288 thou/uL (152-406); Red Cell Distribution Width 13.4 % (12.1-15.2)
[2023-11-04 23:08] LABS: SARS-CoV-2 Antigen CONTROL BLUE LINE VIS/BG OK; SARS-CoV-2 Antigen Rapid Res Negative (Negative)
--- NOTE | 2023-11-04 23:12 | RAD REPORT ---
EXAM DESCRIPTION: CT - Head C Spine Cap Wo Con - 11/04/2023 11:00 pm CLINICAL HISTORY: Trauma, head and neck injury. Chest, abdomen and pelvis pain. resp distress, AMS COMPARISON: Head C Spine Cap Wo Con dated 09/06/2022 TECHNIQUE: CT head without contrast. CT cervical spine without contrast with coronal and sagittal reformatted images. CT chest, abdomen and pelvis with coronal and sagittal reformatted images of the spine. All CT scans are performed using dose optimization technique as appropriate and may include automated exposure control or mA/KV adjustment according to patient size. FINDINGS: CT HEAD WITHOUT CONTRAST: No intracranial hemorrhage, hydrocephalus or extra-axial fluid collection. No acute large vascular te rritory infarct. Advanced chronic small vessel ischemic changes. Cerebral atrophy. Remote basal gangl ia lacunar infarcts. Bilateral cerebellar infarcts. The paranasal sinuses and mastoids are clear. The calvarium is intact. CT CERVICAL SPINE WITHOUT CONTRAST: No fracture or subluxation. The prevertebral soft tissues are normal in thickness.Mild cervical spondylosis including neural fora veronica narrowing bilaterally at C5-6. CT CHEST, ABDOMEN, PELVIS: Thorax: Chest Wall: No abnormal mass Lungs: Mild scarring at the left lung base. Pleura: No effusions or pneumothorax. Kerri/Mediastinum: No lymphadenopathy. Aorta/Pulmonary Arteries: Right subclavian artery stent. Incidentally noted venous gas present at the neck in superficially in the upper anterior thorax . Heart: Normal size. Coronary artery calcifications. Small pericardial effusion. Abdomen/Pelvis: Liver: Low-density lesion right hepatic lobe is incompletely characterized but statistically benign. Biliary: No biliary ductal dilatation. Stomach: No significant focal abnormality. Duodenum: No significant focal abnormality. Pancreas: No significant abnormality. Spleen: No significant abnormality. Adrenal: No suspicious lesions. Kidney/ureter: No hydronephrosis. Right renal calculi versus vascular calcifications. Left nephrectom y . Right renal cysts. Retroperitoneum: No retroperitoneal adenopathy. Vascular: No aneurysm. Heavily calcified abdominal aorta and branch vessels. Bowel: Large rectal stool burden. No bowel obstruction. Moderate colonic stool.. Limited evaluation w ithout contrast. Peritoneum: No ascites or free air. Bladder: Hart catheter with decompressed bladder. Reproductive: No adnexal masses. Bones: No acute fracture. Other: n/a IMPRESSION: 1. No acute intracranial abnormality. Advanced chronic small vessel ischemic changes and sequela of remote infarcts. 2. No acute fracture or traumatic malalignment of the cervical spine . 3. No acute findings in the chest. 4. Large rectal stool burden which may indicate fecal impaction. Moderate colonic stool. No bowel obs truction. Limited evaluation of the abdomen without IV contrast and due to lack of intra-abdominal fa t.
[2023-11-04] MEDS ORDERED: NA CHLORIDE 0.9% 250 ML ONE (23:53)
[2023-11-04] MEDS ORDERED: VANCOMYCIN 1 GM/VIAL ONE (23:53)
[2023-11-04] MEDS ORDERED: MORPHINE 2 MG/ML SYR ONE (23:53)
[2023-11-04] MEDS ORDERED: ONDANSETRON 4 MG/2 ML VIAL ONE (23:53)
[2023-11-04] MEDS ORDERED: PIPERACIL/TAZO 3.375 GM VIAL IV ONE (23:54)
[2023-11-04] MEDS ORDERED: NA CHLORIDE 0.9% 100 ML ONE (23:54)
[2023-11-05 00:19] LABS: PT Prothrombin Time 11.5 SECONDS (9.5-12.5); PTT, Activated Partial Thromb 31.2 SECONDS (24.3-36.9); Protime INR 1.05
[2023-11-05 00:32] LABS: Albumin 3.2 g/dL (3.4-5.0); Anion Gap 11.7 mEq/L (5.0-15.0); Bilirubin Total 0.6 mg/dL (0.2-1.0); Globulin 3.3 g/dL (2.3-3.5); Potassium 3.7 mEq/L (3.5-5.1); Protein, Total 6.5 g/dL (6.4-8.2); Thyroid Stimulating Hormone 1.47 uIU/mL (0.358-3.740)
[2023-11-05 02:31] LABS: Renal Epithelial <5 /HPF (None Seen); Specific Gravity 1.013 (1.005-1.030); Sqamous Epithelial <5 /HPF (None Seen); Urine Bacteria None Seen /HPF (<20); Urine Bilirubin NEGATIVE (Negative); Urine Blood Trace (Negative); Urine Clarity Clear (Clear); Urine Color Light-Yellow (Yellow); Urine Culture Reflex Order NOT NEEDED; Urine Glucose NEGATIVE (Negative); Urine Ketones NEGATIVE (Negative); Urine Microscopic Reflex YN ORDER UMIC; Urine Mucus Slight /HPF (None Seen); Urine Nitrite NEGATIVE (Negative); Urine Protein 1+ (Negative); Urine RBC <5 /HPF (None Seen); Urine Urobilinogen Normal (Normal); Urine WBC <5 /HPF (<5); Urine pH 5.5 (5.0-7.0)
--- NOTE | 2023-11-05 03:11 | EDPHYS ---
Physician Documentation [facility] Name: Aravind Low Age: 73 yrs Sex: Male : 1950 Arrival Date: 11/04/2023 Time: 21:48 Bed 4 Private MD: ED Physician Joaquin Lord HPI: 11/03 21:53 This 73 yrs old Black Male presents to ER via Unassigned with complaints of Respiratory sp4 distress . 11/04 02:53 73-year-old male with history of CVA, dementia, gout, hypertension, CKD, presents from sp4 home with reported respiratory distress. Additional history includes failure to thrive, cachexia, patient's medications include amlodipine, aspirin, sodium bicarbonate, clonidine, atorvastatin, polyethylene glycol, carvedilol, hydralazine, aspirin, lactulose. . Historical: - Allergies: 11/03 22:58 No Known Allergies; bm8 - Home Meds: 22:58 Unable to obtain [Active]; bm8 - PMHx: 22:58 CVA; Dementia; ESRD; Gout; Gout; Hypertension; kidney cancer; bm8 - PSHx: 22:58 kidney removal; bm8 - Immunization history:: Adult Immunizations unknown. - Infectious Disease History:: Denies. - Social history:: Smoking status: unknown. - Family history:: not pertinent. ROS: 11/04 02:53 Constitutional: ROS not available on arrival secondary to dementia sp4 All other systems are negative, Unable to obtain ROS due to baseline dementia, Exam: 02:53 Constitutional: patient who is awake, alert, patient is cachectic and physically sp4 deconditioned Head/Face: Normocephalic, atraumatic. Eyes: Pupils equal round and reactive to light, extra-ocular motions intact. Lids and lashes normal. Conjunctiva and sclera are not injected. Cornea within normal limits. Periorbital areas with no swelling, redness, or edema. ENT: Nares patent. No nasal discharge, no septal abnormalities noted. Tympanic membranes are normal and external auditory canals are clear. Oropharynx with no redness, swelling, or masses, exudates, or evidence of obstruction, uvula midline. Mucous membranes moist. Neck: Trachea midline, no thyromegaly or masses palpated, and no cervical lymphadenopathy. Supple, full range of motion without nuchal rigidity, or vertebral point tenderness. Chest/axilla: Normal chest wall appearance and motion. Nontender with no deformity. No lesions are appreciated. Cardiovascular: Regular rate and rhythm with a normal S1 and S2. No gallops, murmurs, or rubs. Normal PMI, no JVD. No pulse deficits. Respiratory: Lungs have equal breath sounds bilaterally, clear to auscultation and percussion. No rales, rhonchi or wheezes noted. No increased work of breathing, no retractions or nasal flaring. Abdomen/GI: Soft, with normal bowel sounds. No distension or tympany. No guarding or rebound. No evidence of tenderness throughout. Back: No spinal tenderness. No costovertebral tenderness. Male : Normal genitalia with no discharge or lesions. Skin: Warm, dry with normal turgor. Normal color with no rashes, no lesions, and no evidence of cellulitis. MS/ Extremity: Pulses equal, no cyanosis. Neurovascular intact. Full, normal range of motion. Neuro: Awake and alert, able, moderate to severe dementia, does not seem to follow commands, appears deconditioned and cachectic 02:53 ECG was reviewed by the Attending Physician. EKG time 2211, normal sinus rhythm, left ventricular hypertrophy, EKG rate 71 Vital Signs: 11/03 21:48 BP 199 / 109; Pulse 71; Resp 15; Temp 98.2(A); Pulse Ox 100% on 4 lpm NC; Weight 55 kg; bm8 Height 5 ft. 8 in. ; Pain 0/10; 22:35 BP 147 / 82; Pulse 57; Resp 16; Temp 98.3; Pulse Ox 100% on 10 lpm Nebulizer Mask; Pain bm8 0/10; 11/04 01:50 BP 172 / 83; Pulse 54; Resp 16; Temp 98.3; Pulse Ox 100% ; Pain 0/10; bm8 03:31 BP 149 / 84; Pulse 61; Resp 18; Temp 97.2(A); Pulse Ox 100% on R/A; bm8 11/03 21:48 Body Mass Index 18.44 (55.00 kg, 172.72 cm) bm8 11/03 21:48 Pain Scale: Non-Verbal bm8 22:35 Pain Scale: Adult bm8 11/04 01:50 Pain Scale: Adult bm8 Nancy Coma Score: 11/03 22:35 Eye Response: to voice(3). Motor Response: localizes pain(5). Verbal Response: bm8 incomprehensible(2). Total: 10. 11/04 01:50 Eye Response: spontaneous(4). Motor Response: obeys commands(6). Verbal Response: bm8 oriented(5). Total: 15. 02:53 Eye Response: spontaneous(4). Motor Response: localizes pain(5). Verbal Response: sp4 incomprehensible(2). Total: 11. 03:31 Eye Response: spontaneous(4). Motor Response: obeys commands(6). Verbal Response: bm8 incomprehensible(2). Total: 12. MDM: 11/03 22:37 Patient medically screened. sp4 11/04 02:53 Differential Diagnosis altered mental status, sepsis, flu, Respiratory distress. Data sp4 reviewed: vital signs, nurses notes, EMS record, old medical records, lab test result(s), radiologic studies, CT scan, plain films. Consideration of Admission/Observation Patient was admitted/placed on observation. Escalation of care including admission/observation considered. Management of patient was discussed with the following: Primary Care Provider: Gonzales PENALOZA . ED course: Patient has improved after some respiratory treatments, also treated for possible sepsis. Will warrant admission for observation. Patient reportedly is on hospice but family has revoked hospice by requesting EMS to bring him to the hospital. 03:00 ED course: IMPRESSION: 1. No acute intracranial abnormality. Advanced chronic small sp4 vessel ischemic changes and sequela of remote infarcts. 2. No acute fracture or traumatic malalignment of the cervical spine . 3. No acute findings in the chest. 4. Large rectal stool burden which may indicate fecal impaction. Moderate colonic stool. No bowel obstruction. Limited evaluation of the abdomen without IV contrast and due to lack of intraabdominal fat. Signed By: Tristen Velázquez MD Signed AT: 11/04/23 4888 TRAUMAWOC - Head C Spine Cap . ED course: Large fecal impaction noticed on a CAT scan was evacuated on exam. 11/03 21:54 Order name: Blood Culture Adult (2) sp4 11/03 21:54 Order name: CBC with Diff; Complete Time: 02:13 sp4 11/03 21:54 Order name: CMP; Complete Time: 02:13 11/03 21:54 Order name: Lactate w/ 2H reflex if indic.; Complete Time: 02:11/03 21:54 Order name: Protime (+inr); Complete Time: 02:13 11/03 21:54 Order name: Ptt, Activated; Complete Time: 02:13 11/03 21:54 Order name: Urinalysis w/ reflexes; Complete Time: 02:47 11/03 21:54 Order name: ABG; Complete Time: 02:11/03 21:54 Order name: Lipase; Complete Time: 02:13 11/03 21:55 Order name: TSH; Complete Time: 02:11/03 21:55 Order name: T4 Free; Complete Time: 02:11/03 21:56 Order name: Influenza Screen (a \T\ B); Complete Time: 02:11/03 21:56 Order name: SARS RAPID; Complete Time: 02:11/03 21:54 Order name: Chest Single View XRAY 11/03 22:11 Order name: CT Traumagram (Head C Spine CAP wo con); Complete Time: 02:11/03 21:54 Order name: EKG; Complete Time: 21:55 11/03 21:54 Order name: Cardiac monitoring; Complete Time: 23:18 11/03 21:54 Order name: Cath; Complete Time: 23:18 11/03 21:54 Order name: EKG - Nurse/Tech; Complete Time: 23:18 11/03 21:54 Order name: IV Saline Lock - Large Bore; Complete Time: 23:18 11/03 21:54 Order name: Labs collected and sent; Complete Time: 23:18 11/03 21:54 Order name: O2 Per Protocol; Complete Time: 23:18 11/03 21:54 Order name: O2 Sat Monitoring; Complete Time: 23:18 11/03 21:54 Order name: Vital Signs; Complete Time: 23:18 11/03 22:47 Order name: Misc. Order: RECOLLECT BLUE AND LIGHT GREEN; Complete Time: 00:05 rv1 EC:53 Rate is 71 beats/min. Rhythm is regular, Normal Sinus Rhythm. QRS [place] is Normal. ND sp4 interval is normal. QRS interval is normal. QT interval is normal. No Q waves. T waves are Normal. No ST changes noted. Clinical impression: No evidence of ischemia. Interpreted by me. Reviewed by me. Administered Medications: 11/03 22:40 Drug: NS 0.9% IV (30 ml/kg) 30 ml/kg IV at bolus once; Sepsis Protocol Route: IV; Rate: bm8 bolus; Site: right antecubital; 11/04 01:15 Follow up: Response: No adverse reaction; IV Status: Completed infusion; IV Intake: bm8 1650ml 11/03 22:45 Drug: Albuterol Inhalation 2.5 mg Inhalation every 20 minutes x3 Route: Inhalation; bm8 22:45 Drug: Ipratropium Inhalation Aerosol 0.5 mg Inhalation once; Every 20 min for a total bm8 of 3 treatments x3 Route: Inhalation; 22:47 Drug: Albuterol Inhalation 2.5 mg Inhalation every 20 minutes x3 Route: Inhalation; bm8 22:47 Drug: Geodon IM 20 mg IM once Route: IM; Site: right deltoid; bm8 11/04 01:14 Follow up: Response: No adverse reaction 8 11/03 22:47 Drug: Ipratropium Inhalation Aerosol 0.5 mg Inhalation once; Every 20 min for a total bm8 of 3 treatments x3 Route: Inhalation; 23:45 Drug: Albuterol Inhalation 2.5 mg Inhalation every 20 minutes x3 Route: Inhalation; bm8 11/04 01:15 Follow up: Response: No adverse reaction 8 11/03 23:45 Drug: Ipratropium Inhalation Aerosol 0.5 mg Inhalation once; Every 20 min for a total bm8 of 3 treatments x3 Route: Inhalation; 11/04 00:05 Drug: Piperacillin-Tazobactam IVPB 3.375 grams IVPB once over 60 mins; (mix in NS 100 bm8 mL) Route: IVPB; Infused Over: 60 mins; Site: right forearm; 01:13 Follow up: Response: No adverse reaction; IV Status: Completed infusion; IV Intake: bm8 100ml 00:06 Drug: Ondansetron IVP 4 mg IVP once; over 2 minutes Route: IVP; Site: left forearm; bm8 01:14 Follow up: Response: No adverse reaction bm8 01:14 Follow up: Response: No adverse reaction bm8 00:06 Drug: morphine IVP or IV 2 mg IVP once over 4 mins Route: IVP; Infused Over: 4 mins; bm8 Site: left forearm; 03:57 Follow up: Response: No adverse reaction bm8 00:06 Drug: vancoMYCIN IVPB 1 grams IVPB once over 2 hrs Route: IVPB; Infused Over: 2 hrs; bm8 Site: left forearm; 01:14 Follow up: Response: No adverse reaction; IV Status: Infusion continued; IV Intake: bm8 250ml Disposition Summary: 11/05/23 03:10 Hospitalization Ordered Notes: Hospitalization Status: Inpatient Admission sp4 Provider: Titus Rolon sp4 Location: Telemetry/MedSurg (Inpatient) sp4 Condition: Stable sp4 Problem: new sp4 Symptoms: have improved sp4 Bed/Room Type: Standard sp4 Room Assignment: 401(11/05/23 03:34) rv1 Diagnosis - Fecal impaction sp4 - Respiratory distress, hypoxemia, generalized weakness, cachexia, physical sp4 deconditioning, failure to thrive Forms: - Medication Reconciliation Form sp4 - SBAR form sp4 - Leadership Thank You Letter sp4 Signatures: Dispatcher [employer] Kenna Sandoval rv1 Joaquin Lord MD MD sp4 Nathaniel Kenney RN RN bm8 Corrections: (The following items were deleted from the chart) 11/03 21:55 21:54 BLOOD CULTURE*+BA.LAB.BRZ ordered. EDMS EDMS 21:55 21:54 CBC+H.LAB.BRZ ordered. EDMS EDMS 21:55 21:54 COMPREHENSIVE METABOLIC PANEL+C.LAB.BRZ ordered. EDMS EDMS 21:55 21:54 LACTATE+C.LAB.BRZ ordered. EDMS EDMS 21:55 21:54 PROTIME (+INR)+COAG.LAB.BRZ ordered. EDMS EDMS 21:55 21:54 PTT, ACTIVATED+COAG.LAB.BRZ ordered. EDMS EDMS 21:55 21:54 Urinalysis+U.LAB.BRZ ordered. EDMS EDMS 21:56 21:56 Influenza Screen (A \T\ B)+BA.LAB.GAETANO ordered. EDMS EDMS 21:56 21:56 SARS-COV-2 Antigen Rapid+I.LAB.GAETANO ordered. EDMS EDMS 11/04 00:09 11/03 21:54 Accucheck ordered. sp4 bm8 11/04 03:34 03:10 sp4 rv1
--- NOTE | 2023-11-05 03:11 | ER ---
Nurse's Notes [facility] Name: Aravind Low Age: 73 yrs Sex: Male : 1950 Arrival Date: 11/04/2023 Time: 21:48 Bed 4 Private MD: Diagnosis: Fecal impaction;Respiratory distress, hypoxemia, generalized weakness, cachexia, physical deconditioning, failure to thrive Presentation: 11/03 21:48 Chief complaint: EMS states: Called out for unresponsive and pt that was not breathing bm8 right. on arrival pt's o2 sat was 84% on ra. Coronavirus screen: At this time, the client does not indicate any symptoms associated with coronavirus-19. 21:48 Ebola Screen: Patient negative for fever greater than or equal to 101.5 degrees bm8 Fahrenheit, and additional compatible Ebola Virus Disease symptoms Patient denies exposure to infectious person. Patient denies travel to an Ebola-affected area in the 21 days before illness onset. No symptoms or risks identified at this time. Initial Sepsis Screen: Does the patient meet any 2 criteria? No. Patient's initial sepsis screen is negative. Does the patient have a suspected source of infection? No. Patient's initial sepsis screen is negative. Risk Assessment: Do you want to hurt yourself or someone else?. Onset of symptoms is unknown. 21:48 Acuity: ANTONIO 2 bm8 22:20 Note : Lilia Low [id number]. vc1 22:49 Method Of Arrival: EMS: [facility] bm8 Triage Assessment: 21:48 General: Appears in no apparent distress. uncomfortable, Behavior is listless, bm8 unresponsive. Pain: Unable to use pain scale. Does not appear to understand pain scale. EENT: No deficits noted. No signs and/or symptoms were reported regarding the EENT system. Neuro: Level of Consciousness is unresponsive, Oriented to none. Cardiovascular: Heart tones S1 S2 present Capillary refill is > 3 seconds is sluggish in bilateral fingers Patient's skin is warm and dry. Respiratory: Airway is patent Respiratory effort is even, unlabored, Respiratory pattern is regular, symmetrical, pt has sputum from a weak cough. unable to spit it out. yaunker used to suction mouth out. Breath sounds are diminished bilaterally. GI: No deficits noted. No signs and/or symptoms were reported involving the gastrointestinal system. : No deficits noted. No signs and/or symptoms were reported regarding the genitourinary system. Derm: Skin is intact, is thin, Skin is dry, Skin is normal, Skin temperature is warm. Historical: - Allergies: 22:58 No Known Allergies; bm8 - Home Meds: 22:58 Unable to obtain [Active]; bm8 - PMHx: 22:58 CVA; Dementia; ESRD; Gout; Gout; Hypertension; kidney cancer; bm8 - PSHx: 22:58 kidney removal; bm8 - Immunization history:: Adult Immunizations unknown. - Infectious Disease History:: Denies. - Social history:: Smoking status: unknown. - Family history:: not pertinent. Screenin:35 [facility] ED Fall Risk Assessment (Adult) History of falling in the last 3 months, bm8 including since admission Yes- fall prone (multiple falls) (3 pts) Confusion or Disorientation Yes (5 pts) Intoxicated or Sedated Yes (3 pts) Impaired Gait Yes (1 pt) Mobility Assist Device Used Yes (1 pt) Altered Elimination Yes (1 pt) Score/Fall Risk Level 3 or more points = High Risk Oriented to surroundings, Maintained a safe environment, Educated pt \T\ family on fall prevention, incl call for assistance when getting out of bed, Hourly rounding (assess needs \T\ fall precautionary measures) done. Abuse screen: Denies threats or abuse. Nutritional screening: Had unintentional weight loss of 10 pounds or more. Tuberculosis screening: No symptoms or risk factors identified. Assessment: 22:35 Neuro: Oriented to person, pt repsonding to name when family in room. moving head and bm8 eyes to meet the speaker. Pt also moving all ext .. Cardiovascular: Heart tones S1 S2 present Capillary refill < 3 seconds Patient's skin is warm and dry. Respiratory: Airway is patent Respiratory effort is even, unlabored, Respiratory pattern is regular, symmetrical, Breath sounds are diminished bilaterally. 23:07 Reassessment: Patient appears in no apparent distress at this time. bm8 11/04 01:50 Reassessment: Patient appears in no apparent distress at this time. Patient and/or bm8 family updated on plan of care and expected duration. Pain level reassessed. Patient is alert, oriented x 3, equal unlabored respirations, skin warm/dry/pink. Pt is resting with eyes closed breathing is even unlabored at this time. respiration are CTA bilaterally. Patient states symptoms have improved. 03:31 Reassessment: pt is attempting to get comfortable after procedure. resting on and off bm8 with eyes closed breathing is even and unlabored at this time. General: Appears uncomfortable, Behavior is cooperative. Vital Signs: 11/03 21:48 BP 199 / 109; Pulse 71; Resp 15; Temp 98.2(A); Pulse Ox 100% on 4 lpm NC; Weight 55 kg; bm8 Height 5 ft. 8 in. ; Pain 0/10; 22:35 BP 147 / 82; Pulse 57; Resp 16; Temp 98.3; Pulse Ox 100% on 10 lpm Nebulizer Mask; Pain bm8 0/10; 11/04 01:50 BP 172 / 83; Pulse 54; Resp 16; Temp 98.3; Pulse Ox 100% ; Pain 0/10; bm8 03:31 BP 149 / 84; Pulse 61; Resp 18; Temp 97.2(A); Pulse Ox 100% on R/A; bm8 11/03 21:48 Body Mass Index 18.44 (55.00 kg, 172.72 cm) bm8 11/03 21:48 Pain Scale: Non-Verbal bm8 22:35 Pain Scale: Adult bm8 11/04 01:50 Pain Scale: Adult bm8 [place] Score: 11/03 22:35 Eye Response: to voice(3). Motor Response: localizes pain(5). Verbal Response: bm8 incomprehensible(2). Total: 10. 11/04 01:50 Eye Response: spontaneous(4). Motor Response: obeys commands(6). Verbal Response: bm8 oriented(5). Total: 15. 02:53 Eye Response: spontaneous(4). Motor Response: localizes pain(5). Verbal Response: sp4 incomprehensible(2). Total: 11. 03:31 Eye Response: spontaneous(4). Motor Response: obeys commands(6). Verbal Response: bm8 incomprehensible(2). Total: 12. ED Course: 11/03 21:48 Arm band placed on right wrist. Patient placed in an exam room, on a stretcher, on bm8 oxygen, on monitor tech, on pulse oximetry. EKG completed in triage. Results shown to MD. 21:52 Patient arrived in ED. lg3 21:53 Joaquin Lord MD is Attending Physician. sp4 22:20 EKG done, by overhead door technician. reviewed by Joaquin Lord MD. oe 22:35 Initial Neb Treatment Given as ordered Initial Neb Treatment Given as ordered Patient bm8 tolerated procedure well without adverse effect. Hart cath inserted, using sterile technique, 18 Fr., by ED staff, balloon inflated, to gravity drainage, urine specimen collected. Patient tolerated well. Inserted saline lock: 18 gauge in left forearm, using aseptic technique. Blood collected. Maintain EMS IV. Dressing intact. Good blood return noted. Site clean \T\ dry. Gauge \T\ site: 18 right forearm. Oxygen administered via a nebulizer mask. Response to oxygen therapy: symptoms improved. Suctioned orally - small amount thin clear sputum. 22:35 Patient has correct armband on for positive identification. Placed in gown. Bed in low bm8 position. Call light in reach. Side rails up X2. Client placed on continuous cardiac and pulse oximetry monitoring. NIBP monitoring applied. monitoring coordinator on. Pulse ox on. NIBP on. Door closed. Noise minimized. Visitors limited. Lights dimmed. Warm blanket given. Pillow given. Verbal reassurance given. Head of bed elevated. Elevated foot. Cleaned of incontinence. Linen changed. One-on-one care X 60 minutes. 22:49 Nathaniel Kenney, RN is Primary Nurse. bm8 22:58 Triage completed. bm8 22:59 Chest Single View XRAY In Process Unspecified. EDMS 23:02 CT Traumagram (Head C Spine CAP wo con) In Process Unspecified. EDMS 11/04 01:50 Provided Education on: need for admit to family.. bm8 03:09 Titus Rolon MD is Hospitalizing Provider. sp4 03:30 digital disimpaction of bowels. bm8 03:31 Patient admitted, IV remains in place. bm8 Administered Medications: 11/03 22:40 Drug: NS 0.9% IV (30 ml/kg) 30 ml/kg IV at bolus once; Sepsis Protocol Route: IV; Rate: bm8 bolus; Site: right antecubital; 11/04 01:15 Follow up: Response: No adverse reaction; IV Status: Completed infusion; IV Intake: bm8 1650ml 11/03 22:45 Drug: Albuterol Inhalation 2.5 mg Inhalation every 20 minutes x3 Route: Inhalation; bm8 22:45 Drug: Ipratropium Inhalation Aerosol 0.5 mg Inhalation once; Every 20 min for a total bm8 of 3 treatments x3 Route: Inhalation; 22:47 Drug: Albuterol Inhalation 2.5 mg Inhalation every 20 minutes x3 Route: Inhalation; bm8 22:47 Drug: Geodon IM 20 mg IM once Route: IM; Site: right deltoid; bm8 11/04 01:14 Follow up: Response: No adverse reaction 8 11/03 22:47 Drug: Ipratropium Inhalation Aerosol 0.5 mg Inhalation once; Every 20 min for a total bm8 of 3 treatments x3 Route: Inhalation; 23:45 Drug: Albuterol Inhalation 2.5 mg Inhalation every 20 minutes x3 Route: Inhalation; 8 11/04 01:15 Follow up: Response: No adverse reaction 8 11/03 23:45 Drug: Ipratropium Inhalation Aerosol 0.5 mg Inhalation once; Every 20 min for a total bm8 of 3 treatments x3 Route: Inhalation; 11/04 00:05 Drug: Piperacillin-Tazobactam IVPB 3.375 grams IVPB once over 60 mins; (mix in NS 100 bm8 mL) Route: IVPB; Infused Over: 60 mins; Site: right forearm; 01:13 Follow up: Response: No adverse reaction; IV Status: Completed infusion; IV Intake: bm8 100ml 00:06 Drug: Ondansetron IVP 4 mg IVP once; over 2 minutes Route: IVP; Site: left forearm; bm8 01:14 Follow up: Response: No adverse reaction bm8 01:14 Follow up: Response: No adverse reaction bm8 00:06 Drug: morphine IVP or IV 2 mg IVP once over 4 mins Route: IVP; Infused Over: 4 mins; bm8 Site: left forearm; 03:57 Follow up: Response: No adverse reaction bm8 00:06 Drug: vancoMYCIN IVPB 1 grams IVPB once over 2 hrs Route: IVPB; Infused Over: 2 hrs; bm8 Site: left forearm; 01:14 Follow up: Response: No adverse reaction; IV Status: Infusion continued; IV Intake: bm8 250ml Medication: 04/21 22:35 VIS not applicable for this client. bm8 Intake: 11/04 01:13 IV: 100ml; Total: 100ml. bm8 01:14 IV: 250ml; Total: 350ml. bm8 01:15 IV: 1650ml; Total: 2000ml. bm8 Outcome: 03:10 Decision to Hospitalize by Provider. sp4 03:31 Admitted to Tele accompanied by nurse, via stretcher, room 401, with chart, Report bm8 called to xohcitl 03:31 Condition: stable 03:31 Instructed on the need for admit, 04:25 Patient left the ED. bm8 Signatures: Dispatcher [employer] EDMS Stanton Rosenbaum Lacie, RN RN lg3 Hanane Freitas RN RN vc1 Joaquin Lord MD MD sp4 Nathaniel Kenney RN RN bm8 Corrections: (The following items were deleted from the chart) 11/03 22:58 22:49 Chief complaint: EMS states: Called out for unresponsive and pt that was not bm8 breathing right. on arrival pt's o2 sat was 84% on ra. bm8 :58 22:49 Coronavirus screen: At this time, the client does not indicate any symptoms bm8 associated with coronavirus-19. bm8 :58 22:49 Ebola Screen: Patient negative for fever greater than or equal to 101.5 degrees bm8 Fahrenheit, and additional compatible Ebola Virus Disease symptoms Patient denies exposure to infectious person. Patient denies travel to an Ebola-affected area in the 21 days before illness onset. No symptoms or risks identified at this time. bm8 :58 22:49 Method Of Arrival: EMS: [facility] bm8 bm8 23:17 21:48 BP 199 / 109; Pulse 71bpm; Resp 15bpm; Pulse Ox 100% 4 lpm Nasal Cannula; Temp bm8 98.2F Axillary; 55 kg; Height 5 ft. 8 in.; BMI: 18.4; Pain 0/10, Non-Verbal; bm8 11/04 03:31 01:50 No provider procedures requiring assistance completed. bm8 bm8
[2023-11-05] MEDS ORDERED: ALBUTEROL 2.5 MG/3 ML NEB SOL NEB PRN ×2 (04:18→17:37)
[2023-11-05] MEDS ORDERED: WATER FOR INJ,STERILE 10 ML IM PRN (04:18)
[2023-11-05] MEDS ORDERED: HYDRALAZINE HCL 20 MG/ML VIAL IV PRN (04:18)
[2023-11-05] MEDS ORDERED: ONDANSETRON 4 MG/2 ML VIAL IV PRN (04:18)
[2023-11-05] MEDS ORDERED: ZIPRASIDONE MESYLA 20 MG/VIAL IM PRN (04:18)
[2023-11-05] MEDS ORDERED: ACETAMINOPHEN 325 MG TABLET PO PRN (04:18)
[2023-11-05] MEDS: D5.45NS W/KCL 20MEQ 1,000 ML IV SCH (04:49)
--- NOTE | 2023-11-05 07:51 | P.HP ---
Certification for Inpatient Patient admitted to: Observation With expected LOS: <2 Midnights Practitioner: I am a practitioner with admitting privileges, knowledge of patient current condition, hospital course, and medical plan of care. Services: Services provided to patient in accordance with Admission requirements found in Title 42 Section 412.3 of the Code of Federal Regulations Patient History Date of Service: 11/05/23 Reason for admission: Respiratory distress History of Present Illness: Aravind Low is a 73 year old male with Pmhx CVA, dementia, gout, hypertension, CKD stage IV, kidney cancer with left nephrectomy who presents to the ED with chief complaint of respiratory distress. , Lilia, [facility] unaware [facility] home health. He was receiving more help at home but was becoming more lethargic. She called the ambulance due to his inability to respond to her. She states hospice is not what they want right now. Spoke with his cousin, Dave Walker, who is encouraging Aravind to move in with his brother. Family dynamics are complicated. On evaluation presents cachectic, lethargic, non-verbal, lungs sounds clear and on RA. Initial vitals BP 199 / 109; Pulse 71; Resp 15; Temp 98.2(A); Pulse Ox 100% on 4 lpm NC. Laboratory evaluation ABG: pH 7.37, pCO2 38.7, pO2 134 on 4 LNC, HCO3 22, BUN/creatinine 39/2.59, GFR 26, UA negative for infectious process, COVID negative EKG Rate is 71 beats/min. Rhythm is regular, Normal Sinus Rhythm. QRS [place] is Normal. [place] interval is normal. QRS interval is normal. QT interval is normal. No Q waves. T waves are Normal. No ST changes noted. Clinical impression: No evidence of ischemia. Chest x-ray reports "No acute abnormality is identified". Trauma gram-negative for acute findings other than large rectal stool burden may indicate fecal impaction. Aravind will be admitted to hospitalist service for further evaulation. Allergies No Known Allergies Allergy (Verified 05/08/19 18:47) Home Medications: Amlodipine [Norvasc*] 5 mg PO DAILY 08/06/22 Aspirin [Aspirin EC] 81 mg PO DAILY #30 tab 08/12/22 Sodium Bicarbonate 1,300 mg PO BID #120 tab 08/12/22 Clonidine HCl [Catapres*] 0.2 mg PO TID #90 tab 08/22/22 Atorvastatin Calcium [Lipitor] 10 mg PO BEDTIME 01/17/23 Polyethylene Glycol 3350 [Miralax] 17 gm PO DAILY 01/17/23 carvediloL [Coreg*] 25 mg PO BID 01/17/23 Hydralazine HCl 100 mg PO TID 30 Days #90 tab 01/18/23 Aspirin Chewable [Aspirin Chewable*] 81 mg PO DAILY #30 tab.chew 03/21/23 Lactulose 30 ml PO DAILY #1000 ml 03/30/23 - Past Medical/Surgical History Diabetic: No -: Hypertension -: Chronic renal disease, stage IV -: History left renal mass with nephrectomy -: gout -: CVA -: Left nephrectomy Psychosocial/ Personal History: Patient is - Family History Mother -: Hypertension Brother -: Heart disease Notes: deseased from [place] Father Notes: dementia Sister -: Diabetes uncle -: Cancer Notes: prostate - Social History Smoking Status: Unknown if ever smoked Alcohol use: No CD- Drugs: No Caffeine use: Yes Place of Residence: Home Review of Systems is unable to be obtained Physical Examination - Vital Signs Temperature: 97.2 F Blood Pressure: 149/84 Pulse: 61 Respirations: 18 - Physical Exam General: In no apparent distress, Cachectic, Other (nonverbal) HEENT: Atraumatic, Normocephalic, PERRLA Neck: Supple, 2+ carotid pulse no bruit Respiratory: Clear to auscultation bilaterally, Normal air movement Cardiovascular: Normal pulses, Regular rate/rhythm, Normal S1 S2 Capillary refill: <2 Seconds Gastrointestinal: Normal bowel sounds, Soft and benign, No tenderness Musculoskeletal: No swelling Integumentary: No rashes Neurological: Normal speech, Normal tone - Studies Laboratory Data (last 24 hrs) 11/04/23 11/04/23 11/04/23 23:47 23:47 22:00 WBC 4.50 Hgb 14.0 Hct 40.6 Plt Count 288 PT 11.5 INR 1.05 APTT 31.2 Sodium 140 Potassium 3.7 BUN 39 H Creatinine 2.59 H Glucose 101 Total Bilirubin 0.6 AST 36 ALT 19 Alkaline Phosphatase 59 Lipase 35 Microbiology Data (last 24 hrs): 11/04/23 21:55 Nasopharnyx Influenza Type A Antigen Screen - Final 11/04/23 21:55 Nasopharnyx Influenza Type B Antigen Screen - Final Assessment and Plan - Plan Assessment and plan Acute hypoxic respiratory distress -Chest x-ray reports "No acute abnormality is identified. - traumagram negative for acute findings -COVID negative -(11/04) ABG: pH 7.37, pCO2 38.7, pO2 134 on 4 LNC, HCO3 22 - Oxygen supplementation, currently on RA - nebulizer treatment PRN - was on hospice per , [place] set up hospice home health for more help at home, Family does not want hospice Hypertensive urgency in a patient with hypertension -Hypertensive on admission 199/109 -Hydralazine as needed -Continue home medications Cachectic -Dietitian consulted -Enlive Ensure 237 3 times daily History of CVA -nonverbal -KNIFE SETTER ASSEMBLER consulted CKD stage IV secondary to HTN -BUN/creatinine 39/2.59, GFR 26, UA negative for infectious process -gentle IVF Chronic constipation Fecal impaction -CT abdomen pelvis reports large rectal stool burden which may indicate fecal impaction. Moderate colonic stool. No bowel obstruction." -Dulcolax [place] amd Enema PRN History of hypertension -Hypertensive on admission 199/109 -Hydralazine as needed -Continue home medications History of dementia History of gout -Continue home medications DVT PPx heparin Full code LOS 2 days Discharge Plan: Home Plan to discharge in: 48 Hours - Advance Directives Does patient have a Living Will: No Does patient have a Durable POA for Healthcare: No
[2023-11-05] MEDS: ENOXAPARIN 30 MG/0.3 ML SQ SCH (08:36)
[2023-11-05] MEDS: HYDRALAZINE HCL 20 MG/ML VIAL IV PRN (09:58)
--- NOTE | 2023-11-05 10:44 | RAD REPORT ---
EXAM DESCRIPTION: RAD - Chest Single View - 11/04/2023 10:57 pm CLINICAL HISTORY: 73 years Male CHEST PAIN COMPARISON: 03/20/2023. FINDINGS: The patient is rotated slightly towards the left. The cardiomediastinal silhouette appears unremarkable. Atherosclerotic calcifications in the thoracic aorta. No consolidating infiltrates or pleural effusions. No pneumothorax. Vascular stent projected over the right upper chest. IMPRESSION: No acute abnormality is identified. Electronically signed by: Christopher Anderson MD 11/04/2023 11:11 PM CDT Due to temporary technical issues with the PACS/Fluency reporting system, reports are being signed by the in house radiologist without review as a courtesy to ensure prompt reporting. The interpreting r adiologist is fully responsible for the content of the report.
[2023-11-05] MEDS: BISACODYL 10 MG RECTAL SUPP PR ONE (13:14)
[2023-11-05] MEDS ORDERED: HOME MED 1 EA UNK (Clonidine Hcl [Catapres*] 0.2 MG Tablet) PO SCH (15:19)
[2023-11-05] MEDS: AMLODIPINE 5 MG TAB PO SCH (15:41)
[2023-11-05] MEDS: cloNIDine HCL 0.1 MG TAB PO SCH (15:48)
[2023-11-05] MEDS: METOPROLOL TARTRATE 5 MG/5 ML INJ IV PRN (17:52)
--- NOTE | 2023-11-05 18:06 | P.PN ---
Date of Service: 11/05/23 Significant Event Hypertensive Emergency this afternoon 260/141, 235/131, 266/141, 217/142, Manual 222/134 CODE stroke called asymetrical smile Head CT pending EKG pending NIHSS 7- left sided facial droop, left hand and arm neglect, nonverbal is baseline Transfer to ICU bed 3 cardene gtt
--- NOTE | 2023-11-05 18:10 | RAD REPORT ---
EXAM DESCRIPTION: CT - Ct Stroke Brain Wo Cont - 11/05/2023 6:05 pm CLINICAL HISTORY: hypertensive emergency, history of CVA Headache, drowsiness, CVA symptomology COMPARISON: Head Brain Wo Cont dated 03/29/2023; Head Brain Wo Cont dated 01/15/2023; Head C Spine Cap Wo Con dated 11/04/2023 TECHNIQUE: All CT scans are performed using dose optimization technique as appropriate and may inclu de automated exposure control or mA/KV adjustment according to patient size. FINDINGS: No intracranial hemorrhage, hydrocephalus or extra-axial fluid collection.Advanced chronic microvascular ischemic changes in the periventricular and deep white matter.Gliosis from old infarct right cerebellum. The paranasal sinuses and mastoids are clear. The calvarium is intact. Motion degradation is present. IMPRESSION: No acute intracranial abnormality.
[2023-11-05] MEDS ORDERED: NA CHLORIDE 0.9% 0 ML ONE (18:14)
[2023-11-05] MEDS ORDERED: NICARDIPINE HCL 25 MG/10 ML IV ONE ×2 (18:15→18:27)
[2023-11-05] MEDS: Nicardipine/NS 25 MG/250 ML KIT IV SCH (18:21)
[2023-11-05 19:00] LABS: Absolute Basophils 0.1 K/uL (0-0.5); Absolute Lymphocytes (CBC) 1.3 K/uL (0.7-4.9); Absolute Monocytes 0.9 K/uL (0.1-1.3); Absolute Neutrophil 7.8 K/uL (1.8-8.0); Basophils % 0.8 % (0-1.3); Eosinophils % 0.1 % (0-4.4); Hemoglobin 12.6 g/dL (13.6-17.9); Lymphocytes % 12.8 % (15.3-44.8); MCH 30.7 pg (27.0-35.0); MCHC 33.9 g/dL (32.0-36.0); MCV 90.6 fL (80-100); MPV 7.6 fL (7.6-11.3); Monocytes % 8.7 % (3.3-12.3); Neutrophils % 77.6 % (41.7-73.7); Platelets 306 thou/uL (152-406); RBC Red Blood Cell Count 4.09 M/uL (4.33-5.43); Red Cell Distribution Width 13.9 % (12.1-15.2)
[2023-11-05] MEDS ORDERED: D5 0.45 NS 1,000 ML IV ONE (19:10)
[2023-11-05] MEDS: LORazepam 2 MG/ML VIAL IV ONE (19:13)
--- NOTE | 2023-11-05 19:18 | P.PN ---
Date of Service: 11/05/23 Called by ICU to evaluate the patient admitted earlier and transferred to ICU for presumed code stroke, patient seen confused beds appear to be responding, no asymmetrical facial movements noted, heart rate in the 160s despite Cardizem drip, blood pressure was initially in the 190s over 120s but improved with Cardizem bolus 20 mg to 112/98 now. Heart rate still unchanged despite Cardizem bolus, will initiate D5 NS as well as a bolus Ativan since patient appeared confused and moving with monitors. EKG shows sinus tachycardia pattern. Although movements noted Will continue to evaluate patient. I will cancel code stroke further. Monitor cardiac status, might need amiodarone drip if persistent elevated heart rate. Obtain troponin
[2023-11-05 19:19] LABS: Albumin 2.7 g/dL (3.4-5.0); Albumin/Globulin Ratio 0.9 (1.1-1.8); Anion Gap 13.1 mEq/L (5.0-15.0); Bilirubin Total 0.5 mg/dL (0.2-1.0); Globulin 3.1 g/dL (2.3-3.5); Magnesium 1.5 mg/dL (1.6-2.4); Phosphorus 1.9 mg/dL (2.5-4.9); Potassium 4.1 mEq/L (3.5-5.1); Protein, Total 5.8 g/dL (6.4-8.2)
[2023-11-05] MEDS: D5 0.9 NS 500 ML IV SCH (19:19)
[2023-11-05 19:22] LABS: Troponin High Sensitivity 92.5 pg/mL (<58.9)
[2023-11-05] MEDS: D5 0.9 NS 1,000 ML IV SCH (19:27)
[2023-11-05] MEDS ORDERED: MORPHINE 2 MG/ML SYR ONE (19:41)
[2023-11-05] MEDS: MORPHINE 2 MG/ML SYR IV PRN (19:43)
[2023-11-05] MEDS ORDERED: D5 0.9 NS 1,000 ML IV SCH (20:00)
[2023-11-05] MEDS ORDERED: THIAMINE 200 MG/2 ML INJ ONE (20:06)
[2023-11-05] MEDS ORDERED: cloNIDine HCL 0.1 MG TAB ONE (20:09)
[2023-11-05] MEDS: carvediloL 25 MG TAB PO SCH (20:17)
[2023-11-05] MEDS: FOLIC ACID 1 MG in NA CHLORIDE 0.9% 50 ML IV SCH (20:17)
[2023-11-05] MEDS: THIAMINE 200 MG/2 ML INJ IVP SCH (20:17)
[2023-11-05] MEDS: HYDRALAZINE HCL 25 MG TABLET PO SCH (20:18)
[2023-11-05] MEDS: ENSURE ENLIVE 237 ML CAN PO SCH (20:26)
[2023-11-05] MEDS ORDERED: cloNIDine HCL 0.1 MG TAB PO SCH (21:00)
[2023-11-05] MEDS ORDERED: HOME MED 1 EA UNK (Hydralazine Hcl [Hydralazine Hcl] 100 MG Tablet) PO SCH (21:00)
[2023-11-06] MEDS ORDERED: D5 0.9 NS 1,000 ML IV ONE (01:42)
[2023-11-06 04:36] LABS: Hematocrit 32.2 % (39.6-49.0); Hemoglobin 10.8 g/dL (13.6-17.9); MCH 30.4 pg (27.0-35.0); MCHC 33.6 g/dL (32.0-36.0); MCV 90.4 fL (80-100); MPV 8.1 fL (7.6-11.3); Platelets 191 thou/uL (152-406); RBC Red Blood Cell Count 3.56 M/uL (4.33-5.43); Red Cell Distribution Width 13.6 % (12.1-15.2)
[2023-11-06 04:53] LABS: Albumin 2.7 g/dL (3.4-5.0); Albumin/Globulin Ratio 0.8 (1.1-1.8); Anion Gap 10.5 mEq/L (5.0-15.0); Bilirubin Total 0.5 mg/dL (0.2-1.0); Globulin 3.2 g/dL (2.3-3.5); Potassium 4.5 mEq/L (3.5-5.1); Protein, Total 5.9 g/dL (6.4-8.2)
[2023-11-06] MEDS ORDERED: cloNIDine HCL 0.1 MG TAB ONE ×2 (08:30→20:46)
[2023-11-06] MEDS ORDERED: THIAMINE 200 MG/2 ML INJ ONE (08:30)
--- NOTE | 2023-11-06 11:57 | P.PN ---
Date of Service: 11/06/23 Subjective: Was moved to ICU overnight for SVT, hypertensive emergency Was on Cardene which has been weaned off Family reportedly bedbound, nonverbal at baseline Was previously on hospice but revoked as patient appeared to be in distress Patient now sinus bradycardia with normal blood pressure Has PEG tube in place ROS: 10 point ROS as noted above, otherwise negative General: In no apparent distress, Cachectic, nonverbal HEENT: Atraumatic, Normocephalic, PERRLA Neck: Supple, 2+ carotid pulse no bruit Respiratory: Clear to auscultation bilaterally, Normal air movement Cardiovascular: Normal pulses, Regular rate/rhythm, Normal S1 S2 Capillary refill: <2 Seconds Gastrointestinal: Normal bowel sounds, Soft and benign, No tenderness, PEG tube in place Musculoskeletal: No swelling Integumentary: No rashes Neurological: Normal speech, Normal tone Vitals reviewed Problem List Acute hypoxic respiratory failure-improved Hypertensive emergency with underlying primary hypertension SVT NSTEMI Severe protein malnutrition History of CVA-bedbound/nonverbal with PEG tube at baseline CKD 4 Chronic constipation/fecal impaction History of dementia History of gout Plan Acute hypoxic respiratory failure-improved Hypertensive emergency with underlying primary hypertension SVT NSTEMI Unclear etiology for hypoxia-this has improved, possibly related to medications taken while on hospice Was on Cardene overnight 11/04, has been weaned off and blood pressure is much improved Continue home blood pressure medications, adjust as necessary Was in SVT as well overnight, now in sinus rhythm with rate in the 50s to 60s Troponin elevated suspect demand ischemia from SVT, hypoxia Continue to trend troponin until peak, cardiology consulted Continue to monitor on telemetry Severe protein malnutrition Dietitian consulted PEG tube in place Continue Ensure, home tube feeds History of CVA-bedbound/nonverbal with PEG tube at baseline Continue supportive care Family likely to take patient home at discharge CT head 11/04 negative for acute findings CKD 4 Monitor renal function daily, consult nephrology as necessary Chronic constipation/fecal impaction Was reportedly disimpacted in ED Monitor for bowel movements As needed suppository/enema/stool softeners History of dementia History of gout Continue home medications once verified VTE: Heparin subcu Code: Full Dispo: 2 to 3 days Time Spent Managing Pts Care (In Minutes): 35
--- NOTE | 2023-11-06 20:26 | CON ---
Date of Consultation: 11/06/2023 Reason For Consultation: Elevated troponin. History Of Present Illness: 73-year-old male, history of dementia, advanced; CVA; hypertension; adva nced kidney disease. Was on hospice, and revoked hospice, brought him in with respiratory distr ess and unresponsiveness. The patient is nonverbal. Workup showed a slightly elevated troponin, but his blood pressure was extremely elevated. Past Medical History: As outlined above in the HPI. Medications: Refer to reconciliation sheet for detailed list. Allergies: NO KNOWN DRUG ALLERGIES. Family History: No premature coronary artery disease or cancer. Social History: He does not smoke or drink. Does not use any drugs. Review of Systems: The patient is unresponsive. Cannot obtain any review of systems for him. Physical Examination: Vital Signs: Reviewed. Head and Neck: Pupils are equal, reactive to light. Intact eye movements. No cervical lymphadenopa thy. Neck is supple. Thyroid is not enlarged. Lungs: Decreased breathing sounds and rhonchi bilaterally. No accessory muscle use or muscle retrac tion. Heart: Irregular. No extra sounds. Abdomen: Soft, nontender. Bowel sounds positive. No organomegaly. No masses or hernia. No rigidi ty or rebound. Extremities: No clubbing or cyanosis. Intact pulses. Skin: No rash. No nodule. Neurologic: Unresponsive. Lymph Nodes: No cervical or axillary lymphadenopathy. Investigations: Troponin peaked at 567. Creatinine is 2.19. Chest x-ray, no acute abnormalities. Assessment And Recommendations: 1.Elevated troponin. This patient has advanced dementia and here being unresponsive, and he is know n to have moderate coronary artery disease via heart catheterization done in July of 2022. At thi s point, as this is likely demand, I do not recommend any further ischemia evaluation. Obtain an ech ocardiogram to evaluate the cardiac function and plan accordingly. Overall, he has a very poor progn osis. 2.Congestive heart failure, diastolic and low-normal ejection fraction. Update echo now. Appears t o be euvolemic. 3.Hypertension with hypertensive crisis. Blood pressure is much better. I recommend conservative measures on this patient due to advanced dementia. SR/MODL Voice ID: [id number] Report ID: [id number]
[2023-11-07] MEDS ORDERED: MORPHINE 2 MG/ML SYR ONE (03:26)
[2023-11-07 04:37] LABS: Hematocrit 36.9 % (39.6-49.0); Hemoglobin 12.2 g/dL (13.6-17.9); MCH 30.3 pg (27.0-35.0); MCHC 33.1 g/dL (32.0-36.0); MCV 91.6 fL (80-100); MPV 8.3 fL (7.6-11.3); Platelets 211 thou/uL (152-406); RBC Red Blood Cell Count 4.03 M/uL (4.33-5.43); Red Cell Distribution Width 14.2 % (12.1-15.2)
[2023-11-07 05:09] LABS: Albumin 2.8 g/dL (3.4-5.0); Albumin/Globulin Ratio 0.9 (1.1-1.8); Anion Gap 10.9 mEq/L (5.0-15.0); Bilirubin Total 0.4 mg/dL (0.2-1.0); Globulin 3.2 g/dL (2.3-3.5); Potassium 3.9 mEq/L (3.5-5.1)
[2023-11-07] MEDS ORDERED: METOPROLOL TARTRATE 5 MG/5 ML INJ IV ONE (06:49)
[2023-11-07] MEDS ORDERED: cloNIDine HCL 0.1 MG TAB ONE ×2 (09:51→21:39)
[2023-11-07] MEDS ORDERED: THIAMINE 200 MG/2 ML INJ ONE (09:51)
--- NOTE | 2023-11-07 11:31 | P.PN ---
Date of Service: 11/07/23 Subjective: Has been off of cardene Mostly non-verbal using right arm to grab blanket and taffy puller ROS: 10 point ROS as noted above, otherwise negative General: In no apparent distress, Cachectic, nonverbal HEENT: Atraumatic, Normocephalic, PERRLA Neck: Supple, 2+ carotid pulse no bruit Respiratory: Clear to auscultation bilaterally, Normal air movement Cardiovascular: Normal pulses, Regular rate/rhythm, Normal S1 S2 Capillary refill: <2 Seconds Gastrointestinal: Normal bowel sounds, Soft and benign, No tenderness Musculoskeletal: No swelling Integumentary: No rashes Neurological: mostly non-verbal, opens eyes to verbal stimulus Vitals reviewed Problem List Acute hypoxic respiratory failure-improved Hypertensive emergency with underlying primary hypertension SVT NSTEMI Severe protein malnutrition History of CVA-bedbound/nonverbal CKD 4 Chronic constipation/fecal impaction History of dementia History of gout Plan Acute hypoxic respiratory failure-improved Hypertensive emergency with underlying primary hypertension SVT NSTEMI Unclear etiology for hypoxia-this has improved, possibly related to medications taken while on hospice Was on Cardene overnight 11/04, has been weaned off and blood pressure is much improved Continue home blood pressure medications, adjust as necessary Was in SVT evening of 11/04, now in sinus rhythm with rate in the 50s to 60s HR and BP seem to spike when patient is agitated/in pain Troponin elevated suspect demand ischemia from SVT, hypoxia Cardiology consulted, recommends conservative management Echo ordered Plan for goals of care discussion today with -possible DC back on hospice tomorrow Severe protein malnutrition Dietitian consulted Continue Ensure History of CVA-bedbound/nonverbal Continue supportive care Family likely to take patient home at discharge CT head 11/04 negative for acute findings CKD 4 Monitor renal function daily, consult nephrology as necessary Chronic constipation/fecal impaction Was reportedly disimpacted in ED Monitor for bowel movements As needed suppository/enema/stool softeners History of dementia History of gout Continue home medications once verified VTE: Heparin subcu Code: Full Dispo: 2 to 3 days Time Spent Managing Pts Care (In Minutes): 35
--- NOTE | 2023-11-07 14:19 | ECHO ---
HEIGHT: 5 ft 8 in WEIGHT: 101 lb 11.2 oz DATE OF STUDY: 11/07/[address]: Surya Hernandez NP 2-DIMENSIONAL: YES M.MODE: YES DOPPLER: YES COLOR FLOW: YES TDS: NO PORTABLE: YES DEFINITY: NO BUBBLE STUDY: NO DIAGNOSIS: ELEVATED TROPONIN, HYPERTENSION CARDIAC HISTORY: CATHERIZATION: NO SURGERY: NO PROSTHETIC VALVE: NO PACEMAKER: NO MEASUREMENTS (cm) DIASTOLIC (NORMALS) SYSTOLIC (NORMALS) IVSd 1.0 (0.6-1.2) LA Diam 2.3 (1.9-4.0) LVEF 51% LVIDd 3.2 (3.5-5.7) LVIDs 2.4 (2.0-3.5) %FS 25% LVPWd 1.0 (0.6-1.2) Ao Diam 2.6 (2.0-3.7) 2 DIMENSIONAL ASSESSMENT: RIGHT ATRIUM: NORMAL LEFT ATRIUM: NORMAL RIGHT VENTRICLE: NORMAL LEFT VENTRICLE: SEVERE LEFT VENTRICULAR HYPERTROPHY TRICUSPID VALVE: NORMAL MITRAL VALVE: MILD MITRAL REGURGITATION PULMONIC VALVE: NORMAL AORTIC VALVE: NORMAL PERICARDIAL EFFUSION: TRACE AORTIC ROOT: NORMAL LEFT VENTRICULAR WALL MOTION: NORMAL DOPPLER/COLOR FLOW: NORMAL COMMENTS: 1. SEVERE CONCENTRIC LEFT VENTRICULAR HYPERTROPHY. 2. NORMAL LEFT VENTRICULAR SYSTOLIC FUNCTION. LEFT VENTRICULAR EJECTION FRACTION 60-65% WITH NORMAL WALL MOTION. 3. CARDIAC MRI IS RECOMMENDED. TECHNOLOGIST: TAPAN MORRELL
--- NOTE | 2023-11-07 19:02 | P.PN ---
Subjective Date of Service: 11/07/23 Chief Complaint: Respiratory distress Subjective: No new changes Review of Systems 10-point ROS is otherwise unremarkable Physical Examination - Vital Signs Temperature: 98.8 F Blood Pressure: 126/73 Pulse: 84 Respirations: 14 Pulse Ox (%): 97 - Physical Exam General: Demented HEENT: Atraumatic Neck: Supple Respiratory: Clear to auscultation bilaterally Cardiovascular: No edema, Regular rate/rhythm Gastrointestinal: Normal bowel sounds Assessment And Plan - Current Problems (Diagnosis) (1) Hypertensive urgency, malignant Current Visit: No Status: Acute Plan: Continue coreg 25 BID (Hold for HR<50) Continue Norvasc 5 mg daily Continue Hydralazine 100 mg TID (2) Elevated troponin Current Visit: No Status: Chronic Plan: most likely demand ischemia, patient known to have moderate CAD, no intervention due to advanced dementia Echo is normal. (3) LVH (left ventricular hypertrophy) Current Visit: Yes Status: Acute Plan: echo shows severe concentric hypertrophy, need BP and HR control. that is also causing diastolic heart failure but patient is euvolemic on exam. Cardiology will sign off, please call with any questions.
[2023-11-08 05:03] LABS: Hematocrit 31.7 % (39.6-49.0); Hemoglobin 10.5 g/dL (13.6-17.9); MCH 30.2 pg (27.0-35.0); MCHC 33.1 g/dL (32.0-36.0); MCV 91.3 fL (80-100); MPV 9.1 fL (7.6-11.3); Platelets 210 thou/uL (152-406); RBC Red Blood Cell Count 3.48 M/uL (4.33-5.43); Red Cell Distribution Width 13.6 % (12.1-15.2)
[2023-11-08 05:30] LABS: Albumin 2.5 g/dL (3.4-5.0); Albumin/Globulin Ratio 0.8 (1.1-1.8); Anion Gap 8.7 mEq/L (5.0-15.0); Bilirubin Total 0.2 mg/dL (0.2-1.0); Globulin 3.1 g/dL (2.3-3.5); Potassium 3.7 mEq/L (3.5-5.1); Protein, Total 5.6 g/dL (6.4-8.2)
[2023-11-08 05:56] VITALS: BMI 16.7
[2023-11-08] MEDS ORDERED: HYDRALAZINE HCL 20 MG/ML VIAL ONE (06:13)
[2023-11-08] MEDS ORDERED: THIAMINE 200 MG/2 ML INJ ONE (07:39)
[2023-11-08] MEDS ORDERED: cloNIDine HCL 0.1 MG TAB ONE (07:39)
[2023-11-08 09:22] VITALS: O2SAT 97
[2023-11-08 12:09] VITALS: TEMP 97.7
--- NOTE | 2023-11-08 13:30 | P.DS ---
Admission Date: 11/05/23 Discharge Date: 11/08/23 Disposition: ROUTINE DISCHARGE Discharge Condition: FAIR Reason for Admission: Respiratory distress Consultations: Cardiology-Dr. Patton Brief History of Present Illness: Aravind Low is a 73 year old male with Pmhx CVA, dementia, gout, hypertension, CKD stage IV, kidney cancer with left nephrectomy who presents to the ED with chief complaint of respiratory distress. Hospital Course: Problem List Acute hypoxic respiratory failure-improved Hypertensive emergency with underlying primary hypertension SVT NSTEMI Severe protein malnutrition History of CVA-bedbound/nonverbal CKD 4 Chronic constipation/fecal impaction History of dementia History of gout Patient was admitted to the hospital for respiratory distress, reports he had an episode of what appeared to be coughing followed by an episode of gagging and appeared to be in stress and for that reason she called 911. Patient was previously on hospice at home, at baseline he is bedbound and communicates minimally by mouth secondary to previous CVA, advanced dementia. Other comorbidities include CKD 4, previous left nephrectomy, hypertension. He was evaluated in the emergency department, chest x-ray and CT chest abdomen pelvis did not show pneumonia or other findings that may be contributing to his respiratory distress which seem to have resolved. CT did note fecal impaction, disimpaction performed in ED prior to admission. On the evening of admission patient developed severe hypertension, tachycardia and was initially transferred to the ICU for close monitoring as well as obtaining a CT of his head which was negative for acute findings but did show gliosis from an old infarct in the right cerebellum. His heart rate and blood pressure soon returned to normal. He was monitored in the hospital, seen by cardiology for suspected SVT. Echocardiogram was obtained which revealed severe concentric left ventricular hypertrophy, normal left-ventricular ejection fraction and wall motion. At this time cardiology recommends continuation of his Norvasc, Coreg, clonidine, hydralazine. Patient noted to have left-sided weakness upper and lower extremity. Additionally when patient becomes agitated or is in pain his heart rate and blood pressure rapidly increase but once his symptoms are treated he returns to sinus rhythm/ sinus bradycardia around 50-60 with a blood pressure around 120- 130 systolic. Today patient's came to bedside and discussed further goals of care, discussed resumption of hospice and discussed in detail what hospice entails. Patient's agreeable to resumption of hospice at home. We recommend patient continues taking his home medications as prescribed. Patient was also evaluated by speech therapy during his hospitalization who recommends mechanical soft diet with ground meats and thin liquids as well as aspiration precautions. Resumption of hospice initiated by case management after prolonged discussion with regarding goals of care. Vital Signs/Physical Exam: Temp Pulse Resp BP Pulse Ox 97.7 F 64 17 133/69 99 11/08/23 11:59 11/08/23 11:59 11/08/23 11:59 11/08/23 11:59 11/08/23 11:59 General: Cachectic, Demented HEENT: Atraumatic, PERRLA Neck: Supple, JVD not distended Respiratory: Clear to auscultation bilaterally, Normal air movement Cardiovascular: No edema, Regular rate/rhythm, Normal S1 S2 Gastrointestinal: Normal bowel sounds, No tenderness Musculoskeletal: No tenderness Neurological: Other (Left sided weakness, bedbound, mostly non-verbal) Laboratory Data at Discharge: WBC 5.70 thou/uL (4.3-10.9) 11/08/23 04:30 Hgb 10.5 g/dL (13.6-17.9) L D 11/08/23 04:30 Hct 31.7 % (39.6-49.0) L 11/08/23 04:30 Plt Count 210 thou/uL (152-406) 11/08/23 04:30 PT 11.5 SECONDS (9.5-12.5) 11/04/23 23:47 INR 1.05 11/04/23 23:47 APTT 31.2 SECONDS (24.3-36.9) 11/04/23 23:47 Sodium 142 mEq/L (136-145) 11/08/23 04:30 Potassium 3.7 mEq/L (3.5-5.1) 11/08/23 04:30 BUN 34 mg/dL (7-18) H 11/08/23 04:30 Creatinine 1.90 mg/dL (0.70-1.30) H 11/08/23 04:30 Glucose 111 mg/dL (74-106) H 11/08/23 04:30 Phosphorus 1.9 mg/dL (2.5-4.9) L 11/05/23 18:43 Magnesium 1.5 mg/dL (1.6-2.4) L 11/05/23 18:43 Total Bilirubin 0.2 mg/dL (0.2-1.0) 11/08/23 04:30 AST 68 U/L (15-37) H 11/08/23 04:30 ALT 32 U/L (16-61) 11/08/23 04:30 Alkaline Phosphatase 46 U/L (45-117) 11/08/23 04:30 Lipase 35 U/L (13-75) 11/04/23 23:47 Home Medications: Amlodipine [Norvasc*] 5 mg PO DAILY 08/06/22 Aspirin [Aspirin EC] 81 mg PO DAILY #30 tab 08/12/22 Sodium Bicarbonate 1,300 mg PO BID #120 tab 08/12/22 Clonidine HCl [Catapres*] 0.2 mg PO TID #90 tab 08/22/22 Atorvastatin Calcium [Lipitor] 10 mg PO BEDTIME 01/17/23 Polyethylene Glycol 3350 [Miralax] 17 gm PO DAILY 01/17/23 carvediloL [Coreg*] 25 mg PO BID 01/17/23 Hydralazine HCl 100 mg PO TID 30 Days #90 tab 01/18/23 Lactulose 30 ml PO DAILY #1000 ml 03/30/23 Ensure Enlive 237 ml PO TID can 11/08/23 Physician Discharge Instructions: Patient was admitted to the hospital for respiratory distress, reports he had an episode of what appeared to be coughing followed by an episode of gagging and appeared to be in stress and for that reason she called 911. Patient was previously on hospice at home, at baseline he is bedbound and communicates minimally by mouth secondary to previous CVA, advanced dementia. Other comorbidities include CKD 4, previous left nephrectomy, hypertension. He was evaluated in the emergency department, chest x-ray and CT chest abdomen pelvis did not show pneumonia or other findings that may be contributing to his respiratory distress which seem to have resolved. CT did note fecal impaction, disimpaction performed in ED prior to admission. On the evening of admission patient developed severe hypertension, tachycardia and was initially transferred to the ICU for close monitoring as well as obtaining a CT of his head which was negative for acute findings but did show gliosis from an old infarct in the right cerebellum. His heart rate and blood pressure soon returned to normal. He was monitored in the hospital, seen by cardiology for suspected SVT. Echocardiogram was obtained which revealed severe concentric left ventricular hypertrophy, normal left-ventricular ejection fraction and wall motion. At this time cardiology recommends continuation of his Norvasc, Coreg, clonidine, hydralazine. Patient noted to have left-sided weakness upper and lower extremity. Additionally when patient becomes agitated or is in pain his heart rate and blood pressure rapidly increase but once his symptoms are treated he returns to sinus rhythm/ sinus bradycardia around 50-60 with a blood pressure around 120- 130 systolic. Today patient's came to bedside and discussed further goals of care, discussed resumption of hospice and discussed in detail what hospice entails. Patient's agreeable to resumption of hospice at home. We recommend patient continues taking his home medications as prescribed. Patient was also evaluated by speech therapy during his hospitalization who recommends mechanical soft diet with ground meats and thin liquids as well as aspiration precautions. Resumption of hospice initiated by case management after prolonged discussion with regarding goals of care. Diet: mech soft Activity: Bedrest Followup: [facility] [UNKNOWN] - 1-2 Weeks Time spent managing pt's care (in minutes): 35
[2023-11-08] MEDS: POLYETHYL GLY 3350 17 GM/DOSE PO ONE (15:00)
[2023-11-08 16:10] VITALS: BP 141/82
--- NOTE | 2023-11-08 16:55 | EKG ---
Test Date: 2023-11-05 Test Time: 18:31:47 Principal Strategist: REINALDO MEASUREMENT RESULTS: Intervals: Rate: 152 IA: 146 QRSD: 76 QT: 242 QTc: 384 [place]: P: 91 IA: 146 QRS: 74 T: 219 INTERPRETIVE STATEMENTS: Sinus tachycardia ST & T wave abnormality, consider inferolateral ischemia Abnormal ECG Compared to ECG 11/04/2023 22:11:02 ST (T wave) deviation now present Possible ischemia now present Sinus rhythm no longer present Left ventricular hypertrophy no longer present Electronically Signed On 11-08-23 16:44:59 CDT by Clark Fuller
--- NOTE | 2023-11-08 17:00 | EKG ---
Test Date: 2023-11-04 Test Time: 22:11:02 Operations Support Coordinator: KIMO MEASUREMENT RESULTS: Intervals: Rate: 71 WI: 176 QRSD: 160 QT: 428 QTc: 465 [place]: P: 53 WI: 176 QRS: 68 T: 52 INTERPRETIVE STATEMENTS: Normal sinus rhythm Left ventricular hypertrophy with QRS widening Abnormal ECG Compared to ECG 03/29/2023 12:47:59 Atrial premature complex(es) no longer present ST (T wave) deviation no longer present T-wave abnormality no longer present Possible ischemia no longer present Prolonged QT interval no longer present Electronically Signed On 11-08-23 16:46:54 CDT by Clark Fuller
== END 2023-11-08 15:20 | disposition hospice, home (50) | DRG 280 ==
LOC: ER 21:48 → 4TH 11-05 03:24 → 3RD-ICU 11-05 18:10
PROVIDERS: ADMIT Internal Medicine; ATTEND Hospitalist
PROC: 4A033R1 Measurement of Arterial Saturation, Peripheral, Percutaneous Approach (ICD-10-PCS; principal; 2023-11-05)
DX: I16.1 Hypertensive emergency (principal); E43 Unspecified severe protein-calorie malnutrition; I21.A1 Myocardial infarction type 2; J96.01 Acute respiratory failure with hypoxia; N18.4 Chronic kidney disease, stage 4 (severe); R64 Cachexia; Z68.1 Body mass index [BMI] 19.9 or less, adult; I47.10 Supraventricular tachycardia, unspecified; I50.30 Unspecified diastolic (congestive) heart failure; F03.911 Unspecified dementia, unspecified severity, with agitation; I13.0 Hypertensive heart and chronic kidney disease with heart failure and stage 1 through stage 4 chronic kidney disease, or unspecified chronic kidney disease; K56.41 Fecal impaction; M10.9 Gout, unspecified; I25.10 Atherosclerotic heart disease of native coronary artery without angina pectoris; R29.810 Facial weakness; R29.707 NIHSS score 7; Z90.5 Acquired absence of kidney; Z74.01 Bed confinement status; Z79.82 Long term (current) use of aspirin; Z11.52 Encounter for screening for COVID-19; Z79.02 Long term (current) use of antithrombotics/antiplatelets; Z86.73 Personal history of transient ischemic attack (TIA), and cerebral infarction without residual deficits; Z79.899 Other long term (current) drug therapy; Z85.528 Personal history of other malignant neoplasm of kidney
CPT/HCPCS: 36415; 36600; 51702; 70450; 71045; 71250; 72125; 80053; 81001; 82805; 82947; 83605; 83690; 83735; 84100; 84439; 84443; 84484; 85025; 85027; 85610; 85730; 87040; 87804; 87811; 92610; 93005; 93306; 96372; 99291; 99292; J0360; J1650; J2270; J2405; J2543; J3411; J3486; J7030; J7042; J7050; J7613; J7644; J7799